=== PATIENT | male | born 1995 | race Two or more races ===

== ENCOUNTER 2024-09-21 14:20 | Inpatient (IN) | payer OTHER, SELFPAY ==
[2024-09-21 14:20] VITALS: BP 140/90; PULSE 147; RESP 28; TEMP 36.8; O2SAT 95
--- NOTE | 2024-09-21 15:16 | EKG_ITS ---
[facility] Test Date: 2024-09-22 Pat Name: STAS CASTLE Department: Room: [facility] Gender: Male Speech Pathologist: KAMINI : 1995 Requested By: Dayne Che Order Number: [id number] Reading MD: Dayne Che Measurements Intervals [place] Rate: 106 P: 72 GA: 122 QRS: 42 QRSD: 69 T: 55 QT: 319 QTc: 425 Interpretive Statements SINUS TACHYCARDIA NONSPECIFIC T-WAVE ABNORMALITY ABNORMAL RHYTHM ECG No previous ECG available for comparison /store/S0/[id number]
--- NOTE | 2024-09-21 15:56 | PC.SS ---
Resident admitted for subacute care on blow by with trach in place and GT for medication and nutrition. Resident is unable to make needs known, his decision maker is his mother Sara. Resident is not conserved or has POA in place. This SSD informed mother Advanced Directive offered in facility, resident is unable to participate in process. Resident is Taoism pentecostalism and will accept spiritual care visits from job trainer. RP denies history of anxiety, depression or any traumas. This SSD will make daily contact with resident and will monitor to ensure resident is adjusting well to new environment.
[2024-09-21 15:59] LABS: Base Excess -2 (-3-3); HCO3 21 mEq/L (20-26); Inspired Oxygen, FIO2 21 %; O2 Saturation 100 % (91-98); PCO2 29 mmHg (32.0-48.0); PO2 123 mmHg (83-108); pH, Arterial 7.47 (7.35-7.45)
[2024-09-21] MEDS: SULFAMETHOXAZOLE/TRIMETHOPRIM 1 EACH TABLET 2 EACH GT ×2 (16:00→21:30)
[2024-09-21 16:12] LABS: Allen Test Not Performed; Puncture Site Right Radial
--- NOTE | 2024-09-21 17:14 | XR_ITS ---
Examination: AP chest single view Technique one AP portable semiupright chest single view Exam date and time: September 21, 2024, 1830 hours INDICATIONS: Status post tracheostomy tube placement FINDINGS: Tracheostomy tube tip 4.8 cm above Maranda Normal heart size No aspiration pneumonia Gastrostomy tube overlies the stomach IMPRESSION: Tracheostomy tube tip 4.8 cm above Maranda
[2024-09-21 18:00] VITALS: BP 135/96; PULSE 130; RESP 26; TEMP 36.4; O2SAT 99
--- NOTE | 2024-09-21 18:15 | PC.NURSE ---
Admitted a 28 y/o male from [facility] via [facility]. Resident awake , non verbal, totally dependent with ADLs. Abdomen soft and non-tender. With condom cath patent and intact, draining via gravity yellow colored urine. Resident with an ordered for Bactrim DS 800mg/160 mg 2 tabs very 8 hours until 09/27/24. Called and clarified order from [facility] and spoke with the discharging nurse and casey saw operator and confirmed to them as per ordered by the discharging MD and to be given until 09/27/24. Called Dr meade covering for Dr Nichols and made him aware and so with the other discharge medicine orders.
[2024-09-21 19:09] LABS: Basophils % (Auto) 0 % (0-2.5); Eosinophils % (Auto) 0 % (0-10); Hemoglobin 9.8 g/dL (13.5-16.0); Immature Granulocytes % (Auto) 0 % (0-0); Immature Granulocytes Auto 0.04 Thou/mm3 (0.00-0.00); Lymphocytes # (Auto) 1.4 Thou/mm3 (1.0-4.8); Lymphocytes % (Auto) 12 % (10-50); Mean Corpuscular HGB Conc 32.7 g/dl (31.0-37.0); Mean Corpuscular Hemoglobin 29.4 pg (25.0-35.0); Mean Corpuscular Volume 90 fL (80-100); Monocytes % (Auto) 8 % (0-12); Neutrophils # (Auto) 9.6 Thou/mm3 (1.8-7.7); Neutrophils % (Auto) 80 % (37-80); Nucleated Red Blood Cell % 0 /100 WBC (0); Platelet Count 407 Thou/mm3 (140-440); RDW Standard Deviation 60.9 fL (35.1-43.9); Red Blood Count 3.33 Miln/mm3 (4.50-5.90); White Blood Count 12.1 Thou/mm3 (3.8-10.6)
[2024-09-21 19:11] LABS: Alanine Aminotransferase 65 U/L (10-49); Albumin, Serum 4.2 gm/dL (3.5-5.0); Albumin/Globulin Ratio 1.2 (1.2-2.2); Alkaline Phosphatase 150 U/L (46-116); Anion Gap 12 (7-16); Aspartate Amino Transferase 57 U/L (0-34); BUN/Creatinine Ratio 19 Ratio (12-20); Bilirubin,Total < 0.2 mg/dL (0.3-1.2); Blood Urea Nitrogen 17 mg/dL (9-23); Carbon Dioxide 21.5 mMol/L (20.0-31.0); Chloride 104 mMol/L (98-107); Creatinine (Component) 0.9 mg/dL (0.6-1.3); Globulin 3.5 gm/dL (2.3-3.5); Glucose 115 mg/dL (74-106); Osmolality,Calculated 276 (275-295); Potassium 4.4 mMol/L (3.4-5.1); Sodium 137 mMol/L (136-145); Total Protein 7.7 gm/dL (5.7-8.2); eGFR > 60 See Note
[2024-09-21 21:30] VITALS: BP 128/88; PULSE 110
[2024-09-21] MEDS: GABAPENTIN 300 MG CAPSULE GT (21:30)
[2024-09-21] MEDS: MAGNESIUM OXIDE 400 MG TABLET GT (21:30)
[2024-09-21] MEDS: QUETIAPINE FUMARATE 50 MG TABLET GT (21:30)
[2024-09-21 22:00] VITALS: BP 128/82; PULSE 118; RESP 22; TEMP 35.9
[2024-09-21 22:05] VITALS: PULSE 102; RESP 20; O2SAT 98
[2024-09-21] MEDS: ASCORBIC ACID 500 MG TABLET GT (22:30)
[2024-09-22] VITALS (9 sets, daily range): BP systolic 101–118; BP diastolic 71–85; PULSE 77–111; RESP 18–26; TEMP 36.1–36.4; O2SAT 95–100
[2024-09-22] MEDS: GABAPENTIN 300 MG CAPSULE GT ×3 (05:14→21:06)
[2024-09-22] MEDS: BACLOFEN 10 MG TABLET 20 MG GT ×2 (05:14→12:39)
[2024-09-22] MEDS: MIDODRINE 10 MG TABLET 15 MG GT ×3 (05:14→21:08)
[2024-09-22] MEDS: PROPRANOLOL 10 MG TABLET GT ×3 (05:15→21:09)
[2024-09-22] MEDS: QUETIAPINE FUMARATE 50 MG TABLET GT ×3 (05:21→21:01)
[2024-09-22] MEDS: SULFAMETHOXAZOLE/TRIMETHOPRIM 1 EACH TABLET 2 EACH GT ×3 (05:22→21:09)
[2024-09-22] MEDS: ASCORBIC ACID 500 MG TABLET GT ×2 (09:02→21:02)
[2024-09-22] MEDS: LACTULOSE 10 GM/15 ML SOLUTION GT (09:03)
[2024-09-22] MEDS: LANSOPRAZOLE 30 MG CAPSULE.DR GT (09:04)
[2024-09-22] MEDS: levETIRAcetam 100 MG/ML SOLUTION 1000 MG GT ×2 (09:05→21:02)
[2024-09-22] MEDS: MULTIVITAMIN W MINERALS 1 EACH TABLET GT (09:06)
[2024-09-22] MEDS: MAGNESIUM OXIDE 400 MG TABLET GT ×2 (09:06→21:05)
[2024-09-22] MEDS: ACETAMINOPHEN 325 MG TABLET 650 MG GT (09:10)
--- NOTE | 2024-09-22 13:19 | ESHP_ITS ---
Documented by User: Dayne Izquierdo MD 09/22/24 13:20 Addendum History & Physical Addendum Date of report being addended: 09/22/24 (h & P., lung clear breath sounds., Dx pneumonia, on blow by. 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 Seizure disorder 4. Chronic anemia 5 Quadriparesis 6. S/P tracheostomy to blow by and a feeding PEG tube 7. Trach site cellulitis and on Bactrim DS 8. Pseudomonas pn on antibiotics with good response Pt's current ongoing treatment in acute care was reviewed and continued in the [facility] Current condition stable
--- NOTE | 2024-09-22 14:55 | PC.NURSE ---
Dr. Izquierdo came and checked the resident, informed him RT suggesting to D/C the Xopenex and just stay with albuterol sulfate, . ok with it, order noted and carried out.
--- NOTE | 2024-09-22 18:45 | PC.NURSE ---
Late entry for 09/21/24. received a call from [employer] the pillowcase cuttermanager terminal for Bactrim DS 2 tablets every 8 hours until 09/27/24 is for the PNA and trach site cellulitis. She added that order for Bactrim was already completed the morning of the discharge but the discharging MD had ordered to continue it until 09/27/24
--- NOTE | 2024-09-22 18:50 | PC.NURSE ---
Called resident's mom this morning and clarified with her and explained the order of the seroquel. As per mom, resident has been on this medicine at the hospital and been admitted in the hospital for 2 months before he got admitted to our unit. She also added that resident tends to restless and can't sleep when he was at the hospital.
--- NOTE | 2024-09-22 19:07 | PC.NURSE ---
Called pharmacy this morning to follow up on the Vimpat , as per pharmacy they are waiting for the doctor to sign the CII form. Mentioned to the pharmacist that MD is not here to sign the consent it it is weekend. Requested for them to call the MD. Pharmacy will send us a 3 days emergency supply and it will be received today. Endorsed to NOC. Resident continue on Bactrim DS for PNA and trach cellulitis, no adverse reaction noted.
[2024-09-22] MEDS: NON-FORMULARY *SEE COMMENTS* 1 EA EA 100 EA GT (21:02)
[2024-09-22] MEDS: ATORVASTATIN 40 MG TABLET GT (21:02)
[2024-09-23] VITALS (10 sets, daily range): BP systolic 106–161; BP diastolic 72–88; PULSE 84–110; RESP 16–22; TEMP 36.2–36.6; O2SAT 95–99
[2024-09-23] MEDS: GABAPENTIN 300 MG CAPSULE GT ×3 (05:30→21:29)
[2024-09-23] MEDS: BACLOFEN 10 MG TABLET 20 MG GT ×4 (05:30→18:00)
[2024-09-23] MEDS: PROPRANOLOL 10 MG TABLET GT ×3 (05:31→21:35)
[2024-09-23] MEDS: SULFAMETHOXAZOLE/TRIMETHOPRIM 1 EACH TABLET 2 EACH GT ×3 (05:31→21:37)
[2024-09-23] MEDS: QUETIAPINE FUMARATE 50 MG TABLET GT ×3 (05:38→21:25)
[2024-09-23] MEDS: ASCORBIC ACID 500 MG TABLET GT ×2 (08:38→21:27)
[2024-09-23] MEDS: LACTULOSE 10 GM/15 ML SOLUTION GT (08:45)
[2024-09-23] MEDS: LANSOPRAZOLE 30 MG CAPSULE.DR GT (08:46)
[2024-09-23] MEDS: levETIRAcetam 100 MG/ML SOLUTION 1000 MG GT ×2 (08:47→21:28)
[2024-09-23] MEDS: MULTIVITAMIN W MINERALS 1 EACH TABLET GT (08:48)
[2024-09-23] MEDS: MAGNESIUM OXIDE 400 MG TABLET GT ×2 (08:48→21:29)
[2024-09-23] MEDS: NON-FORMULARY *SEE COMMENTS* 1 EA EA 100 EA GT ×2 (08:50→21:29)
[2024-09-23] MEDS: ACETAMINOPHEN 325 MG TABLET 650 MG GT (19:58)
[2024-09-23] MEDS: ATORVASTATIN 40 MG TABLET GT (21:27)
[2024-09-24] VITALS (9 sets, daily range): BP systolic 101–137; BP diastolic 62–95; PULSE 75–132; RESP 17–20; TEMP 36.1–37.8; O2SAT 97–99; BMI 14.2
[2024-09-24] MEDS: BACLOFEN 10 MG TABLET 20 MG GT ×4 (00:11→17:15)
[2024-09-24] MEDS: QUETIAPINE FUMARATE 50 MG TABLET GT ×3 (05:28→20:55)
[2024-09-24] MEDS: GABAPENTIN 300 MG CAPSULE GT ×3 (05:30→21:05)
[2024-09-24] MEDS: PROPRANOLOL 10 MG TABLET GT ×3 (05:32→20:55)
[2024-09-24] MEDS: SULFAMETHOXAZOLE/TRIMETHOPRIM 1 EACH TABLET 2 EACH GT ×3 (05:34→21:05)
[2024-09-24] MEDS: ACETAMINOPHEN 325 MG TABLET 650 MG GT (08:30)
[2024-09-24] MEDS: ASCORBIC ACID 500 MG TABLET GT ×2 (09:31→20:55)
[2024-09-24] MEDS: LACTULOSE 10 GM/15 ML SOLUTION GT (09:31)
[2024-09-24] MEDS: LANSOPRAZOLE 30 MG CAPSULE.DR GT (09:31)
[2024-09-24] MEDS: levETIRAcetam 100 MG/ML SOLUTION 1000 MG GT ×2 (09:32→20:55)
[2024-09-24] MEDS: MAGNESIUM OXIDE 400 MG TABLET GT ×2 (09:33→20:55)
[2024-09-24] MEDS: NON-FORMULARY *SEE COMMENTS* 1 EA EA 100 EA GT ×2 (09:33→20:55)
[2024-09-24] MEDS: MULTIVITAMIN W MINERALS 1 EACH TABLET GT (09:33)
--- NOTE | 2024-09-24 19:40 | PD.SAHP ---
Physical exam Physical Exam Vital signs: Temp Pulse Resp BP Pulse Ox O2 Del Method O2 Flow Rate 97.6 F 107 H 20 122/78 99 Blow-by 6 10/03/24 12:00 10/03/24 13:16 10/03/24 12:00 10/03/24 13:16 10/03/24 11:26 10/02/24 17:54 10/03/24 11:26 FiO2 28 10/03/24 11:26 Constitutional Comments: NAD HEENT Exam Comments: NAD. Cannot participate in evaluation Neck Exam Neck: Present supple Chest/Breast/Axilla Exam Comments: NAD Respiratory Exam Respiratory: Present chest non-tender, lungs clear and normal breath sounds Cardiovascular Exam Cardiovascular: Present RRR, S1 and S2 Abdominal Exam Comments: NAD Rectal Exam Comments: deferred Exam Comments: NAD Extremities Exam Comments: Quadriparesis Back/Spine/Pelvis Exam Comments: NAD Neurological Exam Comments: spontaneous eye opening, no response to verbal stimuli; quadriparesis; incontinent of bladder and bowel. Inability to swallow Rehabilitation potential Diagnosis (1) Chronic respiratory failure: Status: Chronic (2) Encephalopathy: Status: Chronic (3) G tube feedings: Status: Chronic (4) Seizures: Status: Chronic (5) Tracheostomy in place: Status: Chronic (6) Chronic disease anemia: Status: Chronic (7) Cocaine-induced vascular disorder: Status: Chronic (8) Quadriparesis: Status: Chronic Assessment & Plan Assessment: Pt in chronic encephalopathy/ cocaine induced cerebral vasculitis with no cognitive abilities and multiple system compromise and a very guarded prognosis for any meaningful recovery to independent living Plan: Current treatment reviewed and continued Prognosis Prognosis: Poor HPI History of Present Illness HPI: Pt is a 29 yrs of age being 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 failure/ Trach/ Peg, non responsive and with Quadriparesis.
[2024-09-24] MEDS: ATORVASTATIN 40 MG TABLET GT (20:55)
[2024-09-25] VITALS (9 sets, daily range): BP systolic 110–163; BP diastolic 73–94; PULSE 79–144; RESP 16–28; TEMP 36.2–36.4; O2SAT 98–99
[2024-09-25] MEDS: BACLOFEN 10 MG TABLET 20 MG GT ×4 (00:10→17:00)
[2024-09-25] MEDS: SULFAMETHOXAZOLE/TRIMETHOPRIM 1 EACH TABLET 2 EACH GT ×3 (05:31→21:22)
[2024-09-25] MEDS: PROPRANOLOL 10 MG TABLET GT ×3 (05:31→21:22)
[2024-09-25] MEDS: ACETAMINOPHEN 325 MG TABLET 650 MG GT (05:31)
[2024-09-25] MEDS: GABAPENTIN 300 MG CAPSULE GT ×3 (05:31→21:21)
[2024-09-25] MEDS: QUETIAPINE FUMARATE 50 MG TABLET GT ×2 (05:31→13:00)
[2024-09-25] MEDS: ASCORBIC ACID 500 MG TABLET GT ×2 (08:02→21:20)
[2024-09-25] MEDS: levETIRAcetam 100 MG/ML SOLUTION 1000 MG GT ×2 (08:03→21:20)
[2024-09-25] MEDS: MULTIVITAMIN W MINERALS 1 EACH TABLET GT (08:03)
[2024-09-25] MEDS: MAGNESIUM OXIDE 400 MG TABLET GT ×2 (08:03→21:21)
[2024-09-25] MEDS: LACTULOSE 10 GM/15 ML SOLUTION GT (08:03)
[2024-09-25] MEDS: LANSOPRAZOLE 30 MG CAPSULE.DR GT (08:03)
[2024-09-25] MEDS: NON-FORMULARY *SEE COMMENTS* 1 EA EA 100 EA GT ×2 (08:07→21:21)
[2024-09-25] MEDS: MIDODRINE 10 MG TABLET 15 MG GT (13:02)
[2024-09-25] MEDS: ATORVASTATIN 40 MG TABLET GT (21:20)
--- NOTE | 2024-09-25 23:38 | PD.SAPROG ---
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 (8) Quadriparesis: Status: Chronic OBJECTIVE Most recent vital signs: Last Vital Signs Temp 97.1 F 09/25/24 17:39 Pulse 108 H 09/25/24 21:22 Resp 16 09/25/24 17:39 BP 134/79 H 09/25/24 21:22 Pulse Ox 98 09/25/24 17:39 O2 Del Method Blow-by 09/25/24 17:39 O2 Flow Rate 6 09/25/24 07:55 FiO2 28 09/25/24 07:55 Speech:: none Answers questions:: no Respiratory:: lungs clear and shallow breathing Cardiovascular: RRR Abdomen: soft Extremities:: deformities (Quadriparesis) Tracheostomy:: to blow by Feeding per:: G tube Complaints:: none ASSESSMENT & PLAN Assessment: Pt in chronic encephalopathy/ cocaine induced cerebral vasculitis with no cognitive abilities and multiple system compromise and a very guarded prognosis for any meaningful recovery to independent living Plan: Current treatment reviewed and continued
[2024-09-26] VITALS (9 sets, daily range): BP systolic 110–129; BP diastolic 69–88; PULSE 60–120; RESP 17–21; TEMP 36.1–36.8; O2SAT 97–98
[2024-09-26] MEDS: GABAPENTIN 300 MG CAPSULE GT ×3 (05:29→21:18)
[2024-09-26] MEDS: BACLOFEN 10 MG TABLET 20 MG GT ×4 (05:29→17:25)
[2024-09-26] MEDS: PROPRANOLOL 10 MG TABLET GT ×3 (05:30→21:18)
[2024-09-26] MEDS: SULFAMETHOXAZOLE/TRIMETHOPRIM 1 EACH TABLET 2 EACH GT ×3 (05:30→21:19)
--- NOTE | 2024-09-26 07:06 | PC.NURSE ---
made aware of sputum cultures results, no new orders at this time.
[2024-09-26] MEDS: ACETAMINOPHEN 325 MG TABLET 650 MG GT (08:30)
[2024-09-26] MEDS: ASCORBIC ACID 500 MG TABLET GT ×2 (08:31→21:17)
[2024-09-26] MEDS: LACTULOSE 10 GM/15 ML SOLUTION GT (08:31)
[2024-09-26] MEDS: LANSOPRAZOLE 30 MG CAPSULE.DR GT (08:31)
[2024-09-26] MEDS: MAGNESIUM OXIDE 400 MG TABLET GT ×2 (08:32→21:18)
[2024-09-26] MEDS: MULTIVITAMIN W MINERALS 1 EACH TABLET GT (08:32)
[2024-09-26] MEDS: NON-FORMULARY *SEE COMMENTS* 1 EA EA 100 EA GT ×2 (08:32→21:18)
[2024-09-26] MEDS: levETIRAcetam 100 MG/ML SOLUTION 1000 MG GT ×2 (08:32→21:17)
[2024-09-26] MEDS: OLANZapine 5 MG TABLET GT (08:35)
--- NOTE | 2024-09-26 16:10 | PC.SS ---
Resident mother, father and sisters in for a visit no questions or concerns at this time. Family informed to bring resident soft clothing, mother is aware no children under the age of 13 in the building until further notice, this SSD agreed to notify family once children are allowed back in.
[2024-09-26] MEDS: ATORVASTATIN 40 MG TABLET GT (21:17)
[2024-09-27] VITALS (9 sets, daily range): BP systolic 110–127; BP diastolic 67–91; PULSE 65–130; RESP 16–22; TEMP 36.1–36.6; O2SAT 96–100
[2024-09-27] MEDS: BACLOFEN 10 MG TABLET 20 MG GT ×4 (00:30→17:30)
[2024-09-27] MEDS: GABAPENTIN 300 MG CAPSULE GT ×3 (05:13→21:05)
[2024-09-27] MEDS: MIDODRINE 10 MG TABLET 15 MG GT ×2 (05:14→21:04)
[2024-09-27] MEDS: PROPRANOLOL 10 MG TABLET GT ×3 (05:15→21:37)
[2024-09-27] MEDS: ACETAMINOPHEN 325 MG TABLET 650 MG GT ×2 (05:16→09:30)
[2024-09-27] MEDS: SULFAMETHOXAZOLE/TRIMETHOPRIM 1 EACH TABLET 2 EACH GT ×2 (05:16→14:15)
--- NOTE | 2024-09-27 05:29 | PC.NURSE ---
Antibiotics ongoing for pneumonia and cellulitis to trach site. No adverse reactions noted. Bilateral lungs with noted rhonchi. Moderate amount of yellow tinged secretions suctioned as needed via trach. SpO2 100% on 6L with 28% FiO2 via blow by. HOB elevated to facilitate O2 exchange. Trach site with no redness or swelling noted with stoma healing well. Fluids tolerated well via g-tube. Medicated x1 with Tylenol as ordered for s/s of pain with facial grimacing, non-verbal but will blink to yes/no questions. Noted to blink when asked if he was in pain. Resident noted with an open area to posterior left knee and small open area to coccyx area, both with noted bony prominences. Charge nurse notified and new order received and carried out.
--- NOTE | 2024-09-27 05:41 | PC.NURSE ---
Resident noted with small, open area to left posterior knee, new treatment ordered, prevention dressing to right posterior knee ordered to prevent skin breakdown, prevention treatment to sacrum and wound consult ordered for the previous orders
[2024-09-27] MEDS: ASCORBIC ACID 500 MG TABLET GT ×2 (08:54→21:05)
[2024-09-27] MEDS: LANSOPRAZOLE 30 MG CAPSULE.DR GT (08:54)
[2024-09-27] MEDS: LACTULOSE 10 GM/15 ML SOLUTION GT (08:54)
[2024-09-27] MEDS: levETIRAcetam 100 MG/ML SOLUTION 1000 MG GT ×2 (08:55→21:05)
[2024-09-27] MEDS: MAGNESIUM OXIDE 400 MG TABLET GT ×2 (08:55→21:05)
[2024-09-27] MEDS: NON-FORMULARY *SEE COMMENTS* 1 EA EA 100 EA GT ×2 (08:56→21:31)
[2024-09-27] MEDS: MULTIVITAMIN W MINERALS 1 EACH TABLET GT (08:56)
[2024-09-27] MEDS: OLANZapine 5 MG TABLET GT (08:58)
[2024-09-27] MEDS: ATORVASTATIN 40 MG TABLET GT (21:05)
--- NOTE | 2024-09-27 21:41 | PC.NURSE ---
PICC line to right, upper arm discontinued per MD order, no bleeding noted, pressure dressing applied, resident tolerated well.
[2024-09-28] VITALS (8 sets, daily range): BP systolic 106–119; BP diastolic 67–83; PULSE 101–114; RESP 17–98; TEMP 36.1–36.3; O2SAT 97–98
[2024-09-28] MEDS: BACLOFEN 10 MG TABLET 20 MG GT ×4 (00:41→17:04)
[2024-09-28] MEDS: GABAPENTIN 300 MG CAPSULE GT ×3 (05:32→21:26)
[2024-09-28] MEDS: MIDODRINE 10 MG TABLET 15 MG GT ×3 (05:32→21:26)
[2024-09-28] MEDS: LACTULOSE 10 GM/15 ML SOLUTION GT (08:32)
[2024-09-28] MEDS: levETIRAcetam 100 MG/ML SOLUTION 1000 MG GT ×2 (08:32→21:25)
[2024-09-28] MEDS: ASCORBIC ACID 500 MG TABLET GT ×2 (08:32→21:25)
[2024-09-28] MEDS: LANSOPRAZOLE 30 MG CAPSULE.DR GT (08:32)
[2024-09-28] MEDS: MAGNESIUM OXIDE 400 MG TABLET GT ×2 (08:33→21:26)
[2024-09-28] MEDS: MULTIVITAMIN W MINERALS 1 EACH TABLET GT (08:33)
[2024-09-28] MEDS: NON-FORMULARY *SEE COMMENTS* 1 EA EA 100 EA GT ×2 (08:34→21:26)
[2024-09-28] MEDS: OLANZapine 5 MG TABLET GT (08:35)
[2024-09-28] MEDS: PROPRANOLOL 10 MG TABLET GT (13:33)
[2024-09-28] MEDS: ATORVASTATIN 40 MG TABLET GT (21:25)
[2024-09-29] VITALS (8 sets, daily range): BP systolic 107–139; BP diastolic 54–96; PULSE 92–132; RESP 17–22; TEMP 36.7–37.5; O2SAT 95–99
[2024-09-29] MEDS: BACLOFEN 10 MG TABLET 20 MG GT ×4 (00:13→17:03)
[2024-09-29] MEDS: ACETAMINOPHEN 325 MG TABLET 650 MG GT (05:38)
[2024-09-29] MEDS: GABAPENTIN 300 MG CAPSULE GT ×3 (05:38→21:10)
[2024-09-29] MEDS: PROPRANOLOL 10 MG TABLET GT ×3 (05:39→21:11)
[2024-09-29] MEDS: ASCORBIC ACID 500 MG TABLET GT ×2 (08:04→20:58)
[2024-09-29] MEDS: LACTULOSE 10 GM/15 ML SOLUTION GT (08:04)
[2024-09-29] MEDS: levETIRAcetam 100 MG/ML SOLUTION 1000 MG GT ×2 (08:05→20:58)
[2024-09-29] MEDS: LANSOPRAZOLE 30 MG CAPSULE.DR GT (08:05)
[2024-09-29] MEDS: MULTIVITAMIN W MINERALS 1 EACH TABLET GT (08:06)
[2024-09-29] MEDS: MAGNESIUM OXIDE 400 MG TABLET GT ×2 (08:06→20:58)
[2024-09-29] MEDS: NON-FORMULARY *SEE COMMENTS* 1 EA EA 100 EA GT ×2 (08:07→20:58)
[2024-09-29] MEDS: OLANZapine 5 MG TABLET GT (08:08)
--- NOTE | 2024-09-29 18:25 | PD.SAPROG ---
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 (8) Quadriparesis: Status: Chronic OBJECTIVE Most recent vital signs: Last Vital Signs Temp 97.8 F 10/03/24 17:27 Pulse 68 10/03/24 17:27 Resp 19 10/03/24 17:27 BP 115/76 10/03/24 17:27 Pulse Ox 100 10/03/24 17:27 O2 Del Method Blow-by 10/03/24 17:27 O2 Flow Rate 6 10/03/24 11:26 FiO2 28 10/03/24 11:26 Speech:: none Answers questions:: no Respiratory:: lungs clear and shallow breathing Cardiovascular: RRR Abdomen: soft Extremities:: deformities (Quadriparesis) Tracheostomy:: to blow by Feeding per:: G tube Complaints:: none ASSESSMENT & PLAN Assessment: Pt in chronic encephalopathy/ cocaine induced cerebral vasculitis with no cognitive abilities and multiple system compromise and a very guarded prognosis for any meaningful recovery to independent living Plan: Current treatment reviewed and continued
--- NOTE | 2024-09-29 19:06 | PC.NURSE ---
At around 16:15 resident noted to have a rectal temp of 100.4, no s/s of respiratory distress note. Cooling measures provided and extra fluids given PGT. Temp was rechecked after an hour noted to be 99.5
[2024-09-29] MEDS: ATORVASTATIN 40 MG TABLET GT (20:58)
[2024-09-30] VITALS (8 sets, daily range): BP systolic 109–127; BP diastolic 74–84; PULSE 61–88; RESP 16–20; TEMP 36–36.1; O2SAT 97–100
[2024-09-30] MEDS: BACLOFEN 10 MG TABLET 20 MG GT ×5 (00:43→23:33)
[2024-09-30] MEDS: PROPRANOLOL 10 MG TABLET GT ×2 (05:31→21:14)
[2024-09-30] MEDS: GABAPENTIN 300 MG CAPSULE GT ×3 (05:31→21:14)
[2024-09-30] MEDS: MIDODRINE 10 MG TABLET 15 MG GT ×2 (05:31→14:08)
[2024-09-30] MEDS: ASCORBIC ACID 500 MG TABLET GT ×2 (09:21→21:13)
[2024-09-30] MEDS: LANSOPRAZOLE 30 MG CAPSULE.DR GT (09:22)
[2024-09-30] MEDS: LACTULOSE 10 GM/15 ML SOLUTION GT (09:22)
[2024-09-30] MEDS: MAGNESIUM OXIDE 400 MG TABLET GT ×2 (09:23→23:33)
[2024-09-30] MEDS: MULTIVITAMIN W MINERALS 1 EACH TABLET GT (09:23)
[2024-09-30] MEDS: levETIRAcetam 100 MG/ML SOLUTION 1000 MG GT ×2 (09:23→21:13)
[2024-09-30] MEDS: NON-FORMULARY *SEE COMMENTS* 1 EA EA 100 EA GT ×2 (09:24→21:13)
[2024-09-30] MEDS: OLANZapine 5 MG TABLET GT (09:25)
[2024-09-30] MEDS: ATORVASTATIN 40 MG TABLET GT (21:13)
[2024-10-01] VITALS (9 sets, daily range): BP systolic 114–145; BP diastolic 74–89; PULSE 55–108; RESP 17–22; TEMP 36.2–36.4; O2SAT 96–100
[2024-10-01] MEDS: BACLOFEN 10 MG TABLET 20 MG GT ×3 (05:35→18:00)
[2024-10-01] MEDS: GABAPENTIN 300 MG CAPSULE GT ×3 (05:36→21:44)
[2024-10-01] MEDS: MIDODRINE 10 MG TABLET 15 MG GT ×2 (05:36→21:43)
[2024-10-01] MEDS: ASCORBIC ACID 500 MG TABLET GT ×2 (09:18→21:44)
[2024-10-01] MEDS: LANSOPRAZOLE 30 MG CAPSULE.DR GT (09:19)
[2024-10-01] MEDS: levETIRAcetam 100 MG/ML SOLUTION 1000 MG GT ×2 (09:19→21:44)
[2024-10-01] MEDS: LACTULOSE 10 GM/15 ML SOLUTION GT (09:19)
[2024-10-01] MEDS: OLANZapine 5 MG TABLET GT (09:20)
[2024-10-01] MEDS: NON-FORMULARY *SEE COMMENTS* 1 EA EA 100 EA GT ×2 (09:20→21:44)
[2024-10-01] MEDS: MULTIVITAMIN W MINERALS 1 EACH TABLET GT (09:20)
[2024-10-01] MEDS: MAGNESIUM OXIDE 400 MG TABLET GT ×2 (11:00→23:47)
[2024-10-01] MEDS: PROPRANOLOL 10 MG TABLET GT ×2 (14:36→21:43)
[2024-10-01] MEDS: ATORVASTATIN 40 MG TABLET GT (21:44)
[2024-10-02] VITALS (10 sets, daily range): BP systolic 106–149; BP diastolic 75–98; PULSE 55–107; RESP 16–21; TEMP 36.4–37; O2SAT 97–100
[2024-10-02] MEDS: BACLOFEN 10 MG TABLET 20 MG GT ×5 (00:47→23:57)
[2024-10-02] MEDS: PROPRANOLOL 10 MG TABLET GT ×2 (05:29→14:41)
[2024-10-02] MEDS: GABAPENTIN 300 MG CAPSULE GT ×3 (05:29→21:14)
[2024-10-02] MEDS: ACETAMINOPHEN 325 MG TABLET 650 MG GT (07:48)
[2024-10-02] MEDS: LACTULOSE 10 GM/15 ML SOLUTION GT (09:15)
[2024-10-02] MEDS: ASCORBIC ACID 500 MG TABLET GT ×2 (09:15→21:06)
[2024-10-02] MEDS: levETIRAcetam 100 MG/ML SOLUTION 1000 MG GT ×2 (09:16→21:13)
[2024-10-02] MEDS: LANSOPRAZOLE 30 MG CAPSULE.DR GT (09:16)
[2024-10-02] MEDS: MULTIVITAMIN W MINERALS 1 EACH TABLET GT (09:16)
[2024-10-02] MEDS: NON-FORMULARY *SEE COMMENTS* 1 EA EA 100 EA GT ×2 (09:17→21:13)
[2024-10-02] MEDS: OLANZapine 5 MG TABLET GT (09:19)
[2024-10-02] MEDS: MAGNESIUM OXIDE 400 MG TABLET GT ×2 (11:29→23:57)
--- NOTE | 2024-10-02 13:32 | PC.SS ---
Resident was seen by centrifugal spinner for initial consultation. No changes resident to continue current care.
--- NOTE | 2024-10-02 15:35 | PC.NURSE ---
Resident on blood sugar check every 6 hours, no insulin coverage given since admission. Updated Dr mendoza about resident's blood sugar results, with order received to decrease it to twice a day and re-eval with MD in 7 days
[2024-10-02] MEDS: ATORVASTATIN 40 MG TABLET GT (21:09)
[2024-10-02] MEDS: MIDODRINE 10 MG TABLET 15 MG GT (21:14)
[2024-10-03] VITALS (9 sets, daily range): BP systolic 114–151; BP diastolic 76–89; PULSE 68–107; RESP 17–20; TEMP 36.1–36.6; O2SAT 97–100
[2024-10-03] MEDS: GABAPENTIN 300 MG CAPSULE GT ×3 (05:07→22:00)
[2024-10-03] MEDS: MIDODRINE 10 MG TABLET 15 MG GT ×2 (05:07→13:15)
[2024-10-03] MEDS: PROPRANOLOL 10 MG TABLET GT ×3 (05:08→21:00)
[2024-10-03] MEDS: BACLOFEN 10 MG TABLET 20 MG GT ×3 (05:08→17:18)
[2024-10-03] MEDS: ASCORBIC ACID 500 MG TABLET GT ×2 (08:04→20:40)
[2024-10-03] MEDS: LACTULOSE 10 GM/15 ML SOLUTION GT (08:05)
[2024-10-03] MEDS: LANSOPRAZOLE 30 MG CAPSULE.DR GT (08:05)
[2024-10-03] MEDS: levETIRAcetam 100 MG/ML SOLUTION 1000 MG GT ×2 (08:06→20:40)
[2024-10-03] MEDS: MULTIVITAMIN W MINERALS 1 EACH TABLET GT (08:07)
[2024-10-03] MEDS: OLANZapine 5 MG TABLET GT (08:17)
[2024-10-03] MEDS: NON-FORMULARY *SEE COMMENTS* 1 EA EA 100 EA GT ×2 (08:18→20:40)
[2024-10-03] MEDS: MAGNESIUM OXIDE 400 MG TABLET GT ×2 (10:59→23:00)
--- NOTE | 2024-10-03 14:42 | PC.SS ---
This SSD spoke with resident mother Sara, she stated she would like resident hair to be kept short as it currently is. She has asked resident facial hair to be kept short and clean. She has asked his mustache and goat to be kept but shave sides of face. This SSD informed FARM OWNER OPERATOR's caring for resident.
[2024-10-03] MEDS: ATORVASTATIN 40 MG TABLET GT (20:40)
--- NOTE | 2024-10-03 20:40 | PD.SAPROG ---
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 (8) Quadriparesis: Status: Chronic OBJECTIVE Most recent vital signs: Last Vital Signs Temp 97.4 F 10/07/24 11:40 Pulse 66 10/07/24 11:40 Resp 19 10/07/24 11:40 BP 125/89 H 10/07/24 11:40 Pulse Ox 95 10/07/24 06:14 O2 Del Method Blow-by 10/07/24 06:00 O2 Flow Rate 6 10/07/24 06:14 FiO2 28 10/07/24 06:14 Speech:: none Answers questions:: no Respiratory:: lungs clear and shallow breathing Cardiovascular: RRR Abdomen: soft Extremities:: deformities (Quadriparesis) Tracheostomy:: to blow by Feeding per:: G tube Complaints:: none ASSESSMENT & PLAN Assessment: Pt in chronic encephalopathy/ cocaine induced cerebral vasculitis with no cognitive abilities and multiple system compromise and a very guarded prognosis for any meaningful recovery to independent living Plan: Current treatment reviewed and continued
[2024-10-04] VITALS (9 sets, daily range): BP systolic 104–142; BP diastolic 70–97; PULSE 84–117; RESP 18–26; TEMP 36.2–36.5; O2SAT 95–100
[2024-10-04] MEDS: BACLOFEN 10 MG TABLET 20 MG GT ×5 (00:04→23:23)
[2024-10-04] MEDS: ACETAMINOPHEN 325 MG TABLET 650 MG GT (00:15)
[2024-10-04] MEDS: PROPRANOLOL 10 MG TABLET GT ×2 (05:24→13:21)
[2024-10-04] MEDS: GABAPENTIN 300 MG CAPSULE GT ×3 (05:24→21:17)
[2024-10-04] MEDS: ASCORBIC ACID 500 MG TABLET GT ×2 (08:06→20:40)
[2024-10-04] MEDS: LACTULOSE 10 GM/15 ML SOLUTION GT (08:07)
[2024-10-04] MEDS: MULTIVITAMIN W MINERALS 1 EACH TABLET GT (08:08)
[2024-10-04] MEDS: levETIRAcetam 100 MG/ML SOLUTION 1000 MG GT ×2 (08:08→20:40)
[2024-10-04] MEDS: LANSOPRAZOLE 30 MG CAPSULE.DR GT (08:08)
[2024-10-04] MEDS: NON-FORMULARY *SEE COMMENTS* 1 EA EA 100 EA GT ×2 (08:09→20:39)
[2024-10-04] MEDS: OLANZapine 5 MG TABLET GT (08:09)
[2024-10-04] MEDS: MAGNESIUM OXIDE 400 MG TABLET GT ×2 (10:18→23:23)
[2024-10-04] MEDS: MIDODRINE 10 MG TABLET 15 MG GT ×2 (13:21→21:18)
[2024-10-04] MEDS: ATORVASTATIN 40 MG TABLET GT (20:40)
[2024-10-05] VITALS (9 sets, daily range): BP systolic 99–139; BP diastolic 60–84; PULSE 76–109; RESP 18–23; TEMP 36.1–36.5; O2SAT 96–98
[2024-10-05] MEDS: BACLOFEN 10 MG TABLET 20 MG GT ×3 (05:22→17:44)
[2024-10-05] MEDS: MIDODRINE 10 MG TABLET 15 MG GT ×2 (05:22→14:11)
[2024-10-05] MEDS: GABAPENTIN 300 MG CAPSULE GT ×3 (05:22→21:23)
[2024-10-05] MEDS: ASCORBIC ACID 500 MG TABLET GT ×2 (08:36→21:22)
[2024-10-05] MEDS: LACTULOSE 10 GM/15 ML SOLUTION GT (08:37)
[2024-10-05] MEDS: LANSOPRAZOLE 30 MG CAPSULE.DR GT (08:37)
[2024-10-05] MEDS: MULTIVITAMIN W MINERALS 1 EACH TABLET GT (08:37)
[2024-10-05] MEDS: levETIRAcetam 100 MG/ML SOLUTION 1000 MG GT ×2 (08:37→21:23)
[2024-10-05] MEDS: OLANZapine 5 MG TABLET GT (08:38)
[2024-10-05] MEDS: NON-FORMULARY *SEE COMMENTS* 1 EA EA 100 EA GT ×2 (08:38→21:23)
[2024-10-05] MEDS: MAGNESIUM OXIDE 400 MG TABLET GT ×2 (11:10→22:55)
--- NOTE | 2024-10-05 15:09 | PC.SS ---
Resident is laying in bed with head of the bed elevated with call light properly placed with no signs of distress. Resident has trach in place and GT for medication and nutrition. Resident is non verbal unable to make decisions for self. Resident will remain in current care and will continue to have all subacute care needs met by staff. This SSD will make daily contact with resident and will monitor for changes in mood and behavior.
[2024-10-05] MEDS: ATORVASTATIN 40 MG TABLET GT (21:22)
[2024-10-05] MEDS: PROPRANOLOL 10 MG TABLET GT (21:24)
[2024-10-06] VITALS (9 sets, daily range): BP systolic 100–155; BP diastolic 71–99; PULSE 65–123; RESP 20–25; TEMP 36.1–36.6; O2SAT 97–100
[2024-10-06] MEDS: GABAPENTIN 300 MG CAPSULE GT ×3 (05:37→21:55)
[2024-10-06] MEDS: BACLOFEN 10 MG TABLET 20 MG GT ×4 (05:37→17:13)
[2024-10-06] MEDS: PROPRANOLOL 10 MG TABLET GT ×3 (05:39→21:11)
[2024-10-06] MEDS: ASCORBIC ACID 500 MG TABLET GT ×2 (08:03→21:09)
[2024-10-06] MEDS: LACTULOSE 10 GM/15 ML SOLUTION GT (08:04)
[2024-10-06] MEDS: levETIRAcetam 100 MG/ML SOLUTION 1000 MG GT ×2 (08:05→21:10)
[2024-10-06] MEDS: LANSOPRAZOLE 30 MG CAPSULE.DR GT (08:05)
[2024-10-06] MEDS: NON-FORMULARY *SEE COMMENTS* 1 EA EA 100 EA GT ×2 (08:06→21:10)
[2024-10-06] MEDS: MULTIVITAMIN W MINERALS 1 EACH TABLET GT (08:06)
[2024-10-06] MEDS: OLANZapine 5 MG TABLET GT (08:06)
[2024-10-06] MEDS: MAGNESIUM OXIDE 400 MG TABLET GT ×2 (11:06→22:50)
[2024-10-06] MEDS: MIDODRINE 10 MG TABLET 15 MG GT (13:07)
[2024-10-06] MEDS: ACETAMINOPHEN 325 MG TABLET 650 MG GT (13:08)
[2024-10-06] MEDS: ATORVASTATIN 40 MG TABLET GT (21:10)
[2024-10-07] VITALS (9 sets, daily range): BP systolic 113–136; BP diastolic 69–89; PULSE 66–99; RESP 19–20; TEMP 35.9–36.3; O2SAT 95–100
[2024-10-07] MEDS: BACLOFEN 10 MG TABLET 20 MG GT ×4 (00:05→17:05)
[2024-10-07] MEDS: GABAPENTIN 300 MG CAPSULE GT ×3 (05:34→21:14)
[2024-10-07] MEDS: MIDODRINE 10 MG TABLET 15 MG GT ×2 (05:36→21:14)
[2024-10-07] MEDS: PROPRANOLOL 10 MG TABLET GT ×3 (05:37→21:13)
[2024-10-07] MEDS: ASCORBIC ACID 500 MG TABLET GT ×2 (08:52→21:01)
[2024-10-07] MEDS: MULTIVITAMIN W MINERALS 1 EACH TABLET GT (08:53)
[2024-10-07] MEDS: levETIRAcetam 100 MG/ML SOLUTION 1000 MG GT ×2 (08:53→21:02)
[2024-10-07] MEDS: OLANZapine 5 MG TABLET GT (08:53)
[2024-10-07] MEDS: LACTULOSE 10 GM/15 ML SOLUTION GT (08:53)
[2024-10-07] MEDS: NON-FORMULARY *SEE COMMENTS* 1 EA EA 100 EA GT ×2 (08:53→21:08)
[2024-10-07] MEDS: LANSOPRAZOLE 30 MG CAPSULE.DR GT (08:53)
[2024-10-07] MEDS: ACETAMINOPHEN 325 MG TABLET 650 MG GT (09:03)
[2024-10-07] MEDS: MAGNESIUM OXIDE 400 MG TABLET GT ×2 (11:48→23:05)
[2024-10-07] MEDS: ATORVASTATIN 40 MG TABLET GT (21:01)
[2024-10-08] VITALS (8 sets, daily range): BP systolic 106–144; BP diastolic 72–91; PULSE 81–108; RESP 17–22; TEMP 36.1–36.5; O2SAT 97–99; BMI 148311.4
[2024-10-08] MEDS: BACLOFEN 10 MG TABLET 20 MG GT ×4 (00:25→18:00)
[2024-10-08] MEDS: GABAPENTIN 300 MG CAPSULE GT ×3 (05:30→22:08)
[2024-10-08] MEDS: NON-FORMULARY *SEE COMMENTS* 1 EA EA 100 EA GT ×2 (09:40→20:27)
[2024-10-08] MEDS: levETIRAcetam 100 MG/ML SOLUTION 1000 MG GT ×2 (09:45→20:27)
[2024-10-08] MEDS: MULTIVITAMIN W MINERALS 1 EACH TABLET GT (09:45)
[2024-10-08] MEDS: LACTULOSE 10 GM/15 ML SOLUTION GT (09:46)
[2024-10-08] MEDS: LANSOPRAZOLE 30 MG CAPSULE.DR GT (09:46)
[2024-10-08] MEDS: ASCORBIC ACID 500 MG TABLET GT ×2 (09:47→20:26)
[2024-10-08] MEDS: OLANZapine 5 MG TABLET GT (09:47)
[2024-10-08] MEDS: MAGNESIUM OXIDE 400 MG TABLET GT (11:00)
--- NOTE | 2024-10-08 12:33 | PC.SS ---
Resident was seen by robotic machine tender production with no new orders or recommendations, resident to continue current care.
[2024-10-08] MEDS: MIDODRINE 10 MG TABLET 15 MG GT (14:17)
[2024-10-08] MEDS: ACETAMINOPHEN 325 MG TABLET 650 MG GT (14:20)
--- NOTE | 2024-10-08 14:59 | PC.SS ---
Resident mother and sister are at bedside, family brought in clothing and said mom will be doing laundry for resident weekly. Family made aware currently there are no laundry services in unit, family understands and have agreed to launder clothing. Clothing labeled, added to inventory and put in place for use.
[2024-10-08] MEDS: ATORVASTATIN 40 MG TABLET GT (20:26)
[2024-10-08] MEDS: PROPRANOLOL 10 MG TABLET GT (22:08)
[2024-10-09] VITALS (9 sets, daily range): BP systolic 116–151; BP diastolic 81–95; PULSE 60–119; RESP 18–28; TEMP 36.3–36.8; O2SAT 96–99; BMI 14.8
[2024-10-09] MEDS: MAGNESIUM OXIDE 400 MG TABLET GT ×3 (00:18→23:09)
[2024-10-09] MEDS: BACLOFEN 10 MG TABLET 20 MG GT ×5 (00:19→23:09)
[2024-10-09] MEDS: PROPRANOLOL 10 MG TABLET GT ×3 (05:08→21:22)
[2024-10-09] MEDS: ACETAMINOPHEN 325 MG TABLET 650 MG GT ×2 (05:09→14:59)
[2024-10-09] MEDS: GABAPENTIN 300 MG CAPSULE GT ×3 (05:09→21:28)
[2024-10-09] MEDS: OLANZapine 5 MG TABLET GT (09:56)
[2024-10-09] MEDS: ASCORBIC ACID 500 MG TABLET GT ×2 (09:56→21:25)
[2024-10-09] MEDS: levETIRAcetam 100 MG/ML SOLUTION 1000 MG GT ×2 (09:57→21:28)
[2024-10-09] MEDS: LANSOPRAZOLE 30 MG CAPSULE.DR GT (09:57)
[2024-10-09] MEDS: LACTULOSE 10 GM/15 ML SOLUTION GT (09:57)
[2024-10-09] MEDS: NON-FORMULARY *SEE COMMENTS* 1 EA EA 100 EA GT ×2 (09:58→21:28)
[2024-10-09] MEDS: MULTIVITAMIN W MINERALS 1 EACH TABLET GT (09:58)
[2024-10-09] MEDS: ATORVASTATIN 40 MG TABLET GT (21:25)
[2024-10-10] VITALS (9 sets, daily range): BP systolic 110–126; BP diastolic 71–92; PULSE 62–103; RESP 19–22; TEMP 36–36.2; O2SAT 93–100
[2024-10-10] MEDS: PROPRANOLOL 10 MG TABLET GT ×3 (05:29→21:31)
[2024-10-10] MEDS: GABAPENTIN 300 MG CAPSULE GT ×3 (05:29→21:32)
[2024-10-10] MEDS: MIDODRINE 10 MG TABLET 15 MG GT ×3 (05:29→21:32)
[2024-10-10] MEDS: BACLOFEN 10 MG TABLET 20 MG GT ×3 (05:29→17:14)
[2024-10-10] MEDS: OLANZapine 5 MG TABLET GT (08:43)
[2024-10-10] MEDS: ASCORBIC ACID 500 MG TABLET GT ×2 (08:43→20:35)
[2024-10-10] MEDS: LANSOPRAZOLE 30 MG CAPSULE.DR GT (08:44)
[2024-10-10] MEDS: LACTULOSE 10 GM/15 ML SOLUTION GT (08:44)
[2024-10-10] MEDS: levETIRAcetam 100 MG/ML SOLUTION 1000 MG GT ×2 (08:45→20:36)
[2024-10-10] MEDS: MULTIVITAMIN W MINERALS 1 EACH TABLET GT (08:45)
[2024-10-10] MEDS: NON-FORMULARY *SEE COMMENTS* 1 EA EA 100 EA GT ×2 (08:46→20:39)
[2024-10-10] MEDS: MAGNESIUM OXIDE 400 MG TABLET GT (11:00)
--- NOTE | 2024-10-10 13:35 | PC.SS ---
This SSD provided VIVIANE Qureshi with update regarding initial optometry consultation. VIVIANE was concerned if resident could see, this SSD informed Sara optometry note did not confirm nor deny blindness. Sara was pleased resident was seen by visiting nurse and had no further questions.
[2024-10-10] MEDS: ATORVASTATIN 40 MG TABLET GT (20:36)
[2024-10-11] VITALS (9 sets, daily range): BP systolic 107–131; BP diastolic 71–87; PULSE 61–80; RESP 17–20; TEMP 36.1–36.2; O2SAT 95–97
[2024-10-11] MEDS: BACLOFEN 10 MG TABLET 20 MG GT ×4 (00:37→17:29)
[2024-10-11] MEDS: GABAPENTIN 300 MG CAPSULE GT ×3 (05:22→21:28)
[2024-10-11] MEDS: MIDODRINE 10 MG TABLET 15 MG GT ×2 (05:24→13:51)
[2024-10-11] MEDS: MULTIVITAMIN W MINERALS 1 EACH TABLET GT (09:12)
[2024-10-11] MEDS: LANSOPRAZOLE 30 MG CAPSULE.DR GT (09:12)
[2024-10-11] MEDS: LACTULOSE 10 GM/15 ML SOLUTION GT (09:12)
[2024-10-11] MEDS: levETIRAcetam 100 MG/ML SOLUTION 1000 MG GT ×2 (09:12→20:29)
[2024-10-11] MEDS: NON-FORMULARY *SEE COMMENTS* 1 EA EA 100 EA GT ×2 (09:12→20:44)
[2024-10-11] MEDS: ASCORBIC ACID 500 MG TABLET GT ×2 (09:12→20:28)
[2024-10-11] MEDS: OLANZapine 5 MG TABLET GT (09:12)
[2024-10-11] MEDS: MAGNESIUM OXIDE 400 MG TABLET GT ×3 (11:51→23:18)
[2024-10-11] MEDS: PROPRANOLOL 10 MG TABLET GT ×2 (13:49→21:27)
[2024-10-11] MEDS: ATORVASTATIN 40 MG TABLET GT (20:29)
--- NOTE | 2024-10-11 23:32 | PD.SAPROG ---
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 (8) Quadriparesis: Status: Chronic OBJECTIVE Most recent vital signs: Last Vital Signs Temp 96.9 F 10/11/24 17:36 Pulse 80 10/11/24 21:27 Resp 20 10/11/24 19:25 BP 131/82 H 10/11/24 21:27 Pulse Ox 97 10/11/24 19:25 O2 Del Method Blow-by 10/11/24 05:32 O2 Flow Rate 6 10/11/24 19:25 FiO2 28 10/11/24 19:25 Speech:: none Answers questions:: no Respiratory:: lungs clear and shallow breathing Cardiovascular: RRR Abdomen: soft Extremities:: deformities (Quadriparesis) Tracheostomy:: to blow by Feeding per:: G tube Complaints:: none ASSESSMENT & PLAN Assessment: 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 Tolerating G tube feeding Plan: Current treatment reviewed and continued
[2024-10-11] MEDS: ACETAMINOPHEN 325 MG TABLET 650 MG GT (23:33)
[2024-10-12] VITALS (10 sets, daily range): BP systolic 114–145; BP diastolic 75–101; PULSE 66–124; RESP 16–20; TEMP 36.1–36.8; O2SAT 97–100
[2024-10-12] MEDS: BACLOFEN 10 MG TABLET 20 MG GT ×4 (00:15→17:49)
[2024-10-12] MEDS: PROPRANOLOL 10 MG TABLET GT ×3 (05:22→22:05)
[2024-10-12] MEDS: GABAPENTIN 300 MG CAPSULE GT ×3 (05:24→22:06)
[2024-10-12] MEDS: MIDODRINE 10 MG TABLET 15 MG GT ×2 (05:24→13:41)
[2024-10-12] MEDS: LACTULOSE 10 GM/15 ML SOLUTION GT (08:49)
[2024-10-12] MEDS: LANSOPRAZOLE 30 MG CAPSULE.DR GT (08:49)
[2024-10-12] MEDS: NON-FORMULARY *SEE COMMENTS* 1 EA EA 100 EA GT ×2 (08:49→20:53)
[2024-10-12] MEDS: OLANZapine 5 MG TABLET GT (08:49)
[2024-10-12] MEDS: levETIRAcetam 100 MG/ML SOLUTION 1000 MG GT ×2 (08:49→20:42)
[2024-10-12] MEDS: MULTIVITAMIN W MINERALS 1 EACH TABLET GT (08:49)
[2024-10-12] MEDS: ASCORBIC ACID 500 MG TABLET GT ×2 (08:49→20:41)
[2024-10-12] MEDS: MAGNESIUM OXIDE 400 MG TABLET GT (11:41)
[2024-10-12] MEDS: ATORVASTATIN 40 MG TABLET GT (20:42)
[2024-10-13] VITALS (9 sets, daily range): BP systolic 107–147; BP diastolic 76–96; PULSE 78–144; RESP 18–28; TEMP 36–36.4; O2SAT 97–100
[2024-10-13] MEDS: BACLOFEN 10 MG TABLET 20 MG GT ×4 (05:34→17:27)
[2024-10-13] MEDS: GABAPENTIN 300 MG CAPSULE GT ×3 (05:34→20:59)
[2024-10-13] MEDS: PROPRANOLOL 10 MG TABLET GT ×3 (05:36→20:59)
[2024-10-13] MEDS: NON-FORMULARY *SEE COMMENTS* 1 EA EA 100 EA GT ×2 (08:10→20:56)
[2024-10-13] MEDS: OLANZapine 5 MG TABLET GT (08:11)
[2024-10-13] MEDS: MULTIVITAMIN W MINERALS 1 EACH TABLET GT (08:13)
[2024-10-13] MEDS: ASCORBIC ACID 500 MG TABLET GT ×2 (08:13→20:49)
[2024-10-13] MEDS: LANSOPRAZOLE 30 MG CAPSULE.DR GT (08:13)
[2024-10-13] MEDS: LACTULOSE 10 GM/15 ML SOLUTION GT (08:13)
[2024-10-13] MEDS: levETIRAcetam 100 MG/ML SOLUTION 1000 MG GT ×2 (08:13→20:50)
[2024-10-13] MEDS: MAGNESIUM OXIDE 400 MG TABLET GT ×3 (11:19→23:45)
[2024-10-13] MEDS: ACETAMINOPHEN 325 MG TABLET 650 MG GT ×2 (14:00→20:48)
[2024-10-13] MEDS: MIDODRINE 10 MG TABLET 15 MG GT (14:02)
[2024-10-13] MEDS: ATORVASTATIN 40 MG TABLET GT (20:49)
[2024-10-14] VITALS (9 sets, daily range): BP systolic 104–135; BP diastolic 71–91; PULSE 80–110; RESP 18–20; TEMP 36.1–36.5; O2SAT 98–100
[2024-10-14] MEDS: MAGNESIUM OXIDE 400 MG TABLET GT ×2 (00:05→11:32)
[2024-10-14] MEDS: BACLOFEN 10 MG TABLET 20 MG GT ×4 (00:28→17:03)
[2024-10-14] MEDS: PROPRANOLOL 10 MG TABLET GT ×3 (05:22→21:23)
[2024-10-14] MEDS: GABAPENTIN 300 MG CAPSULE GT ×3 (05:23→21:24)
[2024-10-14] MEDS: LACTULOSE 10 GM/15 ML SOLUTION GT (08:39)
[2024-10-14] MEDS: LANSOPRAZOLE 30 MG CAPSULE.DR GT (08:39)
[2024-10-14] MEDS: ASCORBIC ACID 500 MG TABLET GT ×2 (08:39→20:55)
[2024-10-14] MEDS: levETIRAcetam 100 MG/ML SOLUTION 1000 MG GT ×2 (08:40→20:56)
[2024-10-14] MEDS: MULTIVITAMIN W MINERALS 1 EACH TABLET GT (08:40)
[2024-10-14] MEDS: NON-FORMULARY *SEE COMMENTS* 1 EA EA 100 EA GT ×2 (08:40→20:56)
[2024-10-14] MEDS: OLANZapine 5 MG TABLET GT (09:32)
[2024-10-14] MEDS: MIDODRINE 10 MG TABLET 15 MG GT (14:03)
[2024-10-14] MEDS: ATORVASTATIN 40 MG TABLET GT (20:56)
[2024-10-15] VITALS (7 sets, daily range): BP systolic 100–131; BP diastolic 68–83; PULSE 76–111; RESP 18–20; TEMP 36.1–36.4; O2SAT 98–100; BMI 14.7
[2024-10-15] MEDS: BACLOFEN 10 MG TABLET 20 MG GT ×4 (00:08→17:41)
[2024-10-15] MEDS: PROPRANOLOL 10 MG TABLET GT ×3 (05:36→21:12)
[2024-10-15] MEDS: MIDODRINE 10 MG TABLET 15 MG GT ×2 (05:37→13:54)
[2024-10-15] MEDS: GABAPENTIN 300 MG CAPSULE GT ×3 (05:40→21:13)
[2024-10-15] MEDS: LACTULOSE 10 GM/15 ML SOLUTION GT (08:35)
[2024-10-15] MEDS: LANSOPRAZOLE 30 MG CAPSULE.DR GT (08:35)
[2024-10-15] MEDS: ASCORBIC ACID 500 MG TABLET GT ×2 (08:35→20:57)
[2024-10-15] MEDS: levETIRAcetam 100 MG/ML SOLUTION 1000 MG GT ×2 (08:35→20:58)
[2024-10-15] MEDS: MULTIVITAMIN W MINERALS 1 EACH TABLET GT (08:36)
[2024-10-15] MEDS: OLANZapine 5 MG TABLET GT (08:37)
[2024-10-15] MEDS: NON-FORMULARY *SEE COMMENTS* 1 EA EA 100 EA GT ×2 (08:37→21:01)
[2024-10-15] MEDS: MAGNESIUM OXIDE 400 MG TABLET GT ×2 (11:28→22:41)
[2024-10-15] MEDS: ACETAMINOPHEN 325 MG TABLET 650 MG GT ×2 (13:54→23:45)
[2024-10-15] MEDS: ATORVASTATIN 40 MG TABLET GT (20:58)
--- NOTE | 2024-10-15 22:19 | PD.SAPROG ---
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 (8) Quadriparesis: Status: Chronic OBJECTIVE Most recent vital signs: Last Vital Signs Temp 97.4 F 10/15/24 17:57 Pulse 110 H 10/15/24 21:12 Resp 18 10/15/24 17:57 BP 131/81 H 10/15/24 21:12 Pulse Ox 100 10/15/24 17:57 O2 Del Method Blow-by 10/15/24 17:57 O2 Flow Rate 6 10/15/24 08:20 FiO2 10/15/24 08:20 Speech:: none Answers questions:: no Respiratory:: lungs clear and shallow breathing Cardiovascular: RRR Abdomen: soft Extremities:: deformities (Quadriparesis) Tracheostomy:: to blow by Feeding per:: G tube Complaints:: none ASSESSMENT & PLAN Assessment: 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 Tolerating G tube feeding. No pain issues. Plan: Current treatment reviewed and continued
[2024-10-16] VITALS: BP 129/97; PULSE 130; RESP 24; TEMP 37.1
[2024-10-16] MEDS: BACLOFEN 10 MG TABLET 20 MG GT ×4 (00:30→17:03)
[2024-10-16 01:20] VITALS: PULSE 82; RESP 18; O2SAT 98
[2024-10-16 05:21] VITALS: BP 144/88; PULSE 116
[2024-10-16] MEDS: PROPRANOLOL 10 MG TABLET GT (05:21)
[2024-10-16] MEDS: MIDODRINE 10 MG TABLET 15 MG GT ×2 (05:22→13:22)
[2024-10-16] MEDS: GABAPENTIN 300 MG CAPSULE GT ×2 (05:24→13:26)
[2024-10-16 06:00] VITALS: BP 144/88; PULSE 116; RESP 20; TEMP 36.5; O2SAT 98
[2024-10-16 07:38] VITALS: PULSE 79; RESP 18; O2SAT 98
[2024-10-16] MEDS: NON-FORMULARY *SEE COMMENTS* 1 EA EA 100 EA GT (08:05)
[2024-10-16] MEDS: ASCORBIC ACID 500 MG TABLET GT (08:08)
[2024-10-16] MEDS: LACTULOSE 10 GM/15 ML SOLUTION GT (08:08)
[2024-10-16] MEDS: LANSOPRAZOLE 30 MG CAPSULE.DR GT (08:08)
[2024-10-16] MEDS: levETIRAcetam 100 MG/ML SOLUTION 1000 MG GT (08:09)
[2024-10-16] MEDS: OLANZapine 5 MG TABLET GT (08:09)
[2024-10-16] MEDS: MULTIVITAMIN W MINERALS 1 EACH TABLET GT (08:09)
[2024-10-16] MEDS: MAGNESIUM OXIDE 400 MG TABLET GT (11:28)
[2024-10-16 13:22] VITALS: BP 108/72; PULSE 80
--- NOTE | 2024-10-16 21:44 | PC.NURSE ---
Resident HR noted to be at 160, resident was not to the touch, VS:136/78,101.5F,160,28, o2sat 99%, made aware of resident vitals, new order to send resident out to ER for evaluation and treatment if indicated for elevated HR and temp. (possible sepsis), RP made aware of resident send out, this nurse called ER at 2021 and no bed was available, resident was send via bed at 2052 with nurse and RT.
[2024-10-17 14:00] VITALS: BP 112/79; PULSE 88
[2024-10-17] MEDS: MIDODRINE 10 MG TABLET 15 MG GT (14:00)
[2024-10-17] MEDS: PROPRANOLOL 10 MG TABLET GT ×2 (14:00→21:01)
--- NOTE | 2024-10-17 16:01 | ESDS_ITS ---
<Statement entered by Carisa Lemus MD - 10/19/24 08:19> I reviewed above note and agree with findings and plans. I have also personally examined the patient with medicine team and went over assessment and plan with medical team including international representative and resident physician. Planned Discharge Date 10/17/24 DS: Providers Provider Date of admission: 09/21/24 14:20 Primary care physician: Physician No Primary/Family Admitting Provider: Dayne Izquierdo MD Attending Provider on Admission: Dayne Izquierdo MD Consults: 09/27/24 05:40 Referral Wound Care Routine Comment: Instructions: open areas to posterior left knee, sacrum prevention care 10/11/24 09:50 Referral Physical Therapy Routine Comment: Physician Instructions: Instructions: Please evaluate for Noreen Chair Attending Provider on DC: Mike Dennison MD Discharging Provider: Mike Dennison MD DS: Diagnosis Problem List Completed Was Problem List Reviewed/Reconciled?: Yes Hospital Course Hospital Course Hospital course: Mr. Carmona is a 29 year-old male with history of cocaine induced vasculitis, trach and PEG, quadriparesis, presents to the ED form subacute for tachycardia and fever. However, on labs no leukocyte count was noted, Pt chest xray was negative for pneumonia, urinanalysis was negative for UTI and influenza A & B as well as COVID was all negative, lactic acid is within normal limits. Pt had one isolated episode of low grade fever with temperature of 100.3. Tachycardia maybe due to dehydration or pain. Pt has remained afebrile and there is no evidence of infectious causes of fever. Pt is at his baseline hemodynamically stable, vitals are stable, labs are within normal limits. Pt is to be discharged back to subacute, and all medications main remain the same. Hospitalization Diagnosis #SIRS 2/4 with unknown source #Tachycardia #History of seizures #History of cocaine-induced vasculitis #History of quadriparesis Assessment and plan discussed with my attending physician Dr. Mariah Dennison (PGY-1)- Internal medicine resident Time Spent with Patient Time attestation: Total time spent providing and/or coordinating discharge services: Time spent: Greater than 30 minutes Exam Vital Signs Temp Pulse Resp BP Pulse Ox O2 Del Method O2 Flow Rate 97.7 F 80 18 108/72 98 Blow-by 6 10/16/24 06:00 10/16/24 13:22 10/16/24 07:38 10/16/24 13:22 10/16/24 07:38 10/15/24 17:57 10/16/24 07:38 FiO2 28 10/16/24 07:38 Narrative Exam Constitutional: No acute distress. Non-verbal. HEENT: NCAT. Vision grossly intact. Trached. Does not track. Respiratory: Bilateral ronchi. Cardiac: Tachycardic. Regular rhythm. Abdomen: Soft, non-distended. PEG tube in place, clean. MSK: Flexed wrists, stiff. Skin: Pressure wounds posterior legs Discharge Plan Prescriptions/Referrals Prescriptions/Med Rec: No Action atorvastatin 40 mg tablet 40 mg feeding tube HS baclofen 20 mg tablet 20 mg feeding tube Q6HR levetiracetam 100 mg/mL solution 1,000 mg feeding tube BID gabapentin 300 mg capsule 300 mg feeding tube TID lansoprazole 30 mg capsule,delayed release(DR/EC) 30 mg feeding tube QDAY olanzapine 5 mg tablet 5 mg feeding tube QDAY propranolol 10 mg tablet 10 mg feeding tube Q8H midodrine 5 mg tablet 15 mg feeding tube Q8HR albuterol sulfate 2.5 mg /3 mL (0.083 %) solution for nebulization ascorbic acid (vitamin C) [C-500] 500 mg tablet 500 mg PO BID lactulose 10 gram/15 mL solution 10 g PO QDAY multivitamin Tablet 1 tab PO QDAY magnesium oxide 400 mg magnesium tablet 400 mg PO BID insulin lispro 100 unit/mL insulin pen subcut lactulose [Enulose] 10 gram/15 mL solution 10 g feeding tube QDAY Referrals: No Primary/Family,Physician [Primary Care Provider] - Patient/Caregiver Discharge Instructions Print Language: Namibian Quality Discharge Quality Measures VTE prophylaxis
[2024-10-17] MEDS: BACLOFEN 10 MG TABLET 20 MG GT ×2 (17:33→23:20)
--- NOTE | 2024-10-17 17:34 | PC.NURSE ---
Resident came back from acute around 1345,v/s was in normal range no sob noted we will continue to monitor.
[2024-10-17 18:42] VITALS: PULSE 75; RESP 18; O2SAT 100
[2024-10-17] MEDS: ASCORBIC ACID 500 MG TABLET GT (20:49)
[2024-10-17] MEDS: levETIRAcetam 100 MG/ML SOLUTION 1000 MG GT (20:50)
[2024-10-17] MEDS: NON-FORMULARY *SEE COMMENTS* 1 EA EA 100 EA GT (20:51)
[2024-10-17] MEDS: ATORVASTATIN 40 MG TABLET GT (20:51)
[2024-10-17] MEDS: ACETAMINOPHEN 325 MG TABLET 650 MG GT (20:51)
[2024-10-17 21:01] VITALS: BP 124/78; PULSE 103
[2024-10-17] MEDS: GABAPENTIN 300 MG CAPSULE GT (21:02)
[2024-10-17] MEDS: MAGNESIUM OXIDE 400 MG TABLET GT (22:27)
--- NOTE | 2024-10-17 22:31 | PD.SAPROG ---
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 (8) Quadriparesis: Status: Chronic OBJECTIVE Most recent vital signs: Last Vital Signs Temp 97.7 F 10/16/24 06:00 Pulse 103 H 10/17/24 21:01 Resp 18 10/17/24 18:42 BP 124/78 10/17/24 21:01 Pulse Ox 100 10/17/24 18:42 O2 Del Method Blow-by 10/15/24 17:57 O2 Flow Rate 6 10/17/24 18:42 FiO2 10/17/24 18:42 Speech:: none Answers questions:: no Respiratory:: lungs clear and shallow breathing Cardiovascular: RRR Abdomen: soft Extremities:: deformities (Quadriparesis) Tracheostomy:: to blow by Feeding per:: G tube Complaints:: none ASSESSMENT & PLAN Assessment: 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 Tolerating G tube feeding. No pain issues. Returned from acute care after treating for fever/Tachycardia with probable oncoming sepsis. Responded well to antibiotics and supportive treatment and now stable on current treatment which was continued. Plan: Current treatment reviewed and continued
[2024-10-18] VITALS (8 sets, daily range): BP systolic 93–122; BP diastolic 53–90; PULSE 76–96; RESP 18–22; TEMP 36–36.6; O2SAT 97–100
[2024-10-18] MEDS: GABAPENTIN 300 MG CAPSULE GT ×3 (05:41→21:17)
[2024-10-18] MEDS: MIDODRINE 10 MG TABLET 15 MG GT ×2 (05:41→13:19)
[2024-10-18] MEDS: BACLOFEN 10 MG TABLET 20 MG GT ×3 (05:41→17:19)
[2024-10-18] MEDS: PROPRANOLOL 10 MG TABLET GT ×2 (05:41→21:17)
[2024-10-18] MEDS: MULTIVITAMIN W MINERALS 1 EACH TABLET GT (08:53)
[2024-10-18] MEDS: LANSOPRAZOLE 30 MG CAPSULE.DR GT (08:53)
[2024-10-18] MEDS: levETIRAcetam 100 MG/ML SOLUTION 1000 MG GT ×2 (08:53→20:13)
[2024-10-18] MEDS: OLANZapine 5 MG TABLET GT (08:53)
[2024-10-18] MEDS: LACTULOSE 10 GM/15 ML SOLUTION GT (08:54)
[2024-10-18] MEDS: ASCORBIC ACID 500 MG TABLET GT ×2 (08:54→20:13)
[2024-10-18] MEDS: NON-FORMULARY *SEE COMMENTS* 1 EA EA 100 EA GT ×2 (09:00→20:13)
[2024-10-18 09:03] LABS: Basophils % (Auto) 0 % (0-2.5); Eosinophils # (Auto) 0.1 Thou/mm3 (0.0-0.5); Eosinophils % (Auto) 1 % (0-10); Hematocrit 30.3 % (41.0-53.0); Immature Granulocytes % (Auto) 0 % (0-0); Immature Granulocytes Auto 0.02 Thou/mm3 (0.00-0.00); Lymphocytes # (Auto) 1.2 Thou/mm3 (1.0-4.8); Lymphocytes % (Auto) 15 % (10-50); Mean Corpuscular Hemoglobin 29.8 pg (25.0-35.0); Mean Corpuscular Volume 90 fL (80-100); Monocytes # (Auto) 0.9 Thou/mm3 (0.0-0.8); Monocytes % (Auto) 11 % (0-12); Neutrophils % (Auto) 73 % (37-80); Nucleated Red Blood Cell % 0 /100 WBC (0); Platelet Count 240 Thou/mm3 (140-440); RDW Standard Deviation 50.4 fL (35.1-43.9); Red Blood Count 3.36 Miln/mm3 (4.50-5.90); White Blood Count 8.3 Thou/mm3 (3.8-10.6)
[2024-10-18 09:23] LABS: Alanine Aminotransferase 33 U/L (10-49); Albumin, Serum 3.7 gm/dL (3.5-5.0); Albumin/Globulin Ratio 1.4 (1.2-2.2); Alkaline Phosphatase 148 U/L (46-116); Anion Gap 13 (7-16); Aspartate Amino Transferase 36 U/L (0-34); BUN/Creatinine Ratio 32 Ratio (12-20); Bilirubin,Direct < 0.1 mg/dL (0.0-0.3); Bilirubin,Total 0.2 mg/dL (0.3-1.2); Blood Urea Nitrogen 16 mg/dL (9-23); Calcium 9.4 mg/dL (8.3-10.6); Calcium (Corrected) 9.6 mg/dL (8.5-10.1); Carbon Dioxide 23.2 mMol/L (20.0-31.0); Cardiac Risk Estimate 3.3 RATIO (4.0-6.7); Chloride 104 mMol/L (98-107); Cholesterol 114 mg/dL (132-200); Creatinine (Component) 0.5 mg/dL (0.6-1.3); Estimated Creatinine Clearance 145.4 mL/min (>60); Globulin 2.6 gm/dL (2.3-3.5); Glucose 107 mg/dL (74-106); Glucose,Fasting 107 mg/dL (74-106); HDL Cholesterol 35 mg/dL (40-60); LDL Cholesterol,Calculated 64 mg/dL (0-130); Osmolality,Calculated 280 (275-295); Sodium 140 mMol/L (136-145); Total Protein 6.3 gm/dL (5.7-8.2); Triglycerides 77 mg/dL (30-150); eGFR > 60 See Note
[2024-10-18 10:14] LABS: Glucose Estimated Average 77 mg/dL (80-131); Hemoglobin A1C 4.3 % Hgb (4.8-6.0)
[2024-10-18] MEDS: MAGNESIUM OXIDE 400 MG TABLET GT ×2 (11:15→23:32)
--- NOTE | 2024-10-18 14:50 | PC.SS ---
Resident is laying in bed with head of the bed elevated with call light placed with no signs of distress. Resident is on blow by with trach in place and GT for medication and nutrition. Resident is non verbal unable to make needs known, his mother is his decision maker. Resident has no changes in care or condition and will remain in current care and will have all subacute care needs met by staff. This SSD will continue make daily contact and will monitor for changes in mood and behavior.
[2024-10-18] MEDS: ACETAMINOPHEN 325 MG TABLET 650 MG GT (20:11)
[2024-10-18] MEDS: ATORVASTATIN 40 MG TABLET GT (21:31)
[2024-10-19] VITALS (8 sets, daily range): BP systolic 111–138; BP diastolic 74–86; PULSE 81–125; RESP 18–22; TEMP 35.9–36.8; O2SAT 99
[2024-10-19] MEDS: BACLOFEN 10 MG TABLET 20 MG GT ×5 (00:31→23:46)
[2024-10-19] MEDS: GABAPENTIN 300 MG CAPSULE GT ×3 (05:31→21:27)
[2024-10-19] MEDS: PROPRANOLOL 10 MG TABLET GT ×3 (05:32→21:27)
[2024-10-19] MEDS: NON-FORMULARY *SEE COMMENTS* 1 EA EA 100 EA GT ×2 (08:35→21:54)
[2024-10-19] MEDS: OLANZapine 5 MG TABLET GT (08:38)
[2024-10-19] MEDS: MULTIVITAMIN W MINERALS 1 EACH TABLET GT (08:39)
[2024-10-19] MEDS: ASCORBIC ACID 500 MG TABLET GT ×2 (08:39→20:47)
[2024-10-19] MEDS: LANSOPRAZOLE 30 MG CAPSULE.DR GT (08:39)
[2024-10-19] MEDS: LACTULOSE 10 GM/15 ML SOLUTION GT (08:39)
[2024-10-19] MEDS: levETIRAcetam 100 MG/ML SOLUTION 1000 MG GT ×2 (08:39→21:55)
[2024-10-19] MEDS: ACETAMINOPHEN 325 MG TABLET 650 MG GT ×2 (08:40→20:45)
[2024-10-19] MEDS: MAGNESIUM OXIDE 400 MG TABLET GT ×2 (10:45→23:56)
--- NOTE | 2024-10-19 11:30 | PC.NURSE ---
Resident noted with cold sore, order received from Dr Nichols to apply graemea. Called pharmacy to send it.
[2024-10-19] MEDS: MIDODRINE 10 MG TABLET 15 MG GT ×2 (13:32→21:26)
[2024-10-19] MEDS: ATORVASTATIN 40 MG TABLET GT (21:32)
[2024-10-20] VITALS: BP 124/81; PULSE 94; RESP 20; TEMP 36.1
[2024-10-20 05:16] VITALS: BP 128/88; PULSE 79
[2024-10-20] MEDS: BACLOFEN 10 MG TABLET 20 MG GT ×4 (05:16→23:51)
[2024-10-20] MEDS: GABAPENTIN 300 MG CAPSULE GT ×3 (05:16→21:08)
[2024-10-20] MEDS: PROPRANOLOL 10 MG TABLET GT ×3 (05:16→21:08)
[2024-10-20 06:00] VITALS: BP 128/88; PULSE 79; RESP 18; TEMP 36.2; O2SAT 95
[2024-10-20 06:41] VITALS: PULSE 82; RESP 18; O2SAT 99
[2024-10-20] MEDS: ASCORBIC ACID 500 MG TABLET GT ×2 (09:04→21:09)
[2024-10-20] MEDS: LACTULOSE 10 GM/15 ML SOLUTION GT (09:05)
[2024-10-20] MEDS: levETIRAcetam 100 MG/ML SOLUTION 1000 MG GT ×2 (09:05→21:09)
[2024-10-20] MEDS: OLANZapine 5 MG TABLET GT (09:05)
[2024-10-20] MEDS: NON-FORMULARY *SEE COMMENTS* 1 EA EA 100 EA GT ×2 (09:05→21:16)
[2024-10-20] MEDS: LANSOPRAZOLE 30 MG CAPSULE.DR GT (09:05)
[2024-10-20] MEDS: MULTIVITAMIN W MINERALS 1 EACH TABLET GT (09:05)
[2024-10-20 13:23] VITALS: BP 128/74; PULSE 87
[2024-10-20] MEDS: ACETAMINOPHEN 325 MG TABLET 650 MG GT (15:29)
[2024-10-20 21:08] VITALS: BP 111/75; PULSE 88
[2024-10-20] MEDS: MIDODRINE 10 MG TABLET 15 MG GT (21:08)
[2024-10-20] MEDS: ATORVASTATIN 40 MG TABLET GT (21:16)
[2024-10-20] MEDS: DOCOSANOL 100 EA TOPICAL (22:53)
[2024-10-20] MEDS: MAGNESIUM OXIDE 400 MG TABLET GT (23:51)
[2024-10-21] VITALS (11 sets, daily range): BP systolic 118–134; BP diastolic 65–87; PULSE 71–110; RESP 16–22; TEMP 36.1–38.6; O2SAT 96–99
[2024-10-21] MEDS: GABAPENTIN 300 MG CAPSULE GT ×3 (05:31→21:09)
[2024-10-21] MEDS: PROPRANOLOL 10 MG TABLET GT ×3 (05:31→21:10)
[2024-10-21] MEDS: BACLOFEN 10 MG TABLET 20 MG GT ×3 (05:31→17:34)
[2024-10-21] MEDS: DOCOSANOL 100 EA TOPICAL ×4 (05:32→22:05)
[2024-10-21] MEDS: ASCORBIC ACID 500 MG TABLET GT ×2 (08:22→20:47)
[2024-10-21] MEDS: LACTULOSE 10 GM/15 ML SOLUTION GT (08:23)
[2024-10-21] MEDS: levETIRAcetam 100 MG/ML SOLUTION 1000 MG GT ×2 (08:24→20:48)
[2024-10-21] MEDS: LANSOPRAZOLE 30 MG CAPSULE.DR GT (08:24)
[2024-10-21] MEDS: MULTIVITAMIN W MINERALS 1 EACH TABLET GT (08:25)
[2024-10-21] MEDS: OLANZapine 5 MG TABLET GT (08:26)
[2024-10-21] MEDS: NON-FORMULARY *SEE COMMENTS* 1 EA EA 100 EA GT ×2 (09:10→20:49)
[2024-10-21] MEDS: MAGNESIUM OXIDE 400 MG TABLET GT ×2 (11:06→23:30)
[2024-10-21] MEDS: MIDODRINE 10 MG TABLET 15 MG GT (14:04)
--- NOTE | 2024-10-21 14:10 | PD.SAPROG ---
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 (8) Quadriparesis: Status: Chronic OBJECTIVE Most recent vital signs: Last Vital Signs Temp 101.8 F H 10/22/24 20:23 Pulse 150 H 10/22/24 20:18 Resp 28 H 10/22/24 20:05 BP 134/93 H 10/22/24 20:18 Pulse Ox 99 10/22/24 20:05 O2 Del Method Blow-by 10/22/24 06:00 O2 Flow Rate 6 10/22/24 20:05 FiO2 28 10/22/24 20:05 Speech:: none Answers questions:: no Respiratory:: lungs clear and shallow breathing Cardiovascular: RRR Abdomen: soft Extremities:: deformities (Quadriparesis) Tracheostomy:: to blow by Feeding per:: G tube Complaints:: none ASSESSMENT & PLAN Assessment: 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 Tolerating G tube feeding. No pain issues. Returned from acute care after treating for fever/Tachycardia with probable oncoming sepsis. Responded well to antibiotics and supportive treatment and now stable on current treatment which was continued. VSS Plan: Current treatment reviewed and continued
[2024-10-21] MEDS: ATORVASTATIN 40 MG TABLET GT (20:50)
[2024-10-21] MEDS: ACETAMINOPHEN 325 MG TABLET 650 MG GT (23:08)
--- NOTE | 2024-10-21 23:15 | PC.NURSE ---
Resident with rectal temp of 101.5, HR 137, RR28, 02 SAT 99% On blowby @ 28%. No distress noted. Cooling measures and fever protocol initiated.
[2024-10-21 23:31] LABS: Basophils % (Auto) 0 % (0-2.5); Eosinophils % (Auto) 0 % (0-10); Hematocrit 34.5 % (41.0-53.0); Hemoglobin 11.9 g/dL (13.5-16.0); Immature Granulocytes % (Auto) 0 % (0-0); Immature Granulocytes Auto 0.04 Thou/mm3 (0.00-0.00); Lymphocytes # (Auto) 1.2 Thou/mm3 (1.0-4.8); Lymphocytes % (Auto) 11 % (10-50); Mean Corpuscular HGB Conc 34.5 g/dl (31.0-37.0); Mean Corpuscular Hemoglobin 29.8 pg (25.0-35.0); Mean Corpuscular Volume 87 fL (80-100); Monocytes # (Auto) 0.8 Thou/mm3 (0.0-0.8); Monocytes % (Auto) 8 % (0-12); Neutrophils # (Auto) 8.7 Thou/mm3 (1.8-7.7); Neutrophils % (Auto) 81 % (37-80); Nucleated Red Blood Cell % 0 /100 WBC (0); Platelet Count 309 Thou/mm3 (140-440); RDW Standard Deviation 47.8 fL (35.1-43.9); Red Blood Count 3.99 Miln/mm3 (4.50-5.90); White Blood Count 10.8 Thou/mm3 (3.8-10.6)
[2024-10-21 23:54] LABS: Collection Type, Urine Catheter
[2024-10-22] VITALS (14 sets, daily range): BP systolic 111–138; BP diastolic 81–93; PULSE 93–150; RESP 20–28; TEMP 36.3–38.8; O2SAT 98–100
[2024-10-22 00:08] LABS: Procalcitonin 0.12 ng/ml (0.0-0.49)
[2024-10-22 00:25] LABS: Bilirubin,Urine Negative (Negative); Blood,Urine Negative (Negative); Clarity,Urine Clear (Clear/Hazy); Color,Urine Lt Yellow (Lt Yel-Yel); Glucose, Urine Negative (Negative); Ketones,Urine Negative (Negative); Leukocyte Esterase,Urine Negative (Negative); Nitrite,Urine Negative (Negative); PH,Urine 7.5 (5.0-7.0); Protein,Urine Negative (Neg - Trace); Specific Gravity,Urine 1.015 (1.001-1.035); Urobilinogen,Urine 0.2 mg/dL (0.0-1.0)
[2024-10-22] MEDS: BACLOFEN 10 MG TABLET 20 MG GT ×4 (00:29→17:28)
[2024-10-22 01:24] LABS: Amorphous Crystals,Urine Present (Absent); RBC,Urine 4 /hpf (0-3); Squamous Epithelial Cell,Urine < 1 /hpf (0-5); WBC,Urine 2 /hpf (0-5)
[2024-10-22 01:37] LABS: COVID-19 Antigen (In-House) Negative (Negative); Influenza A Ag Negative; Influenza B Ag Negative
--- NOTE | 2024-10-22 02:00 | PC.NURSE ---
Resident sleeping, no distress noted. Temp 99.5 rectally. HR 93, RR 20,O2 SAT 99% BP 136/89. Continue to monitor.
[2024-10-22] MEDS: ACETAMINOPHEN 325 MG TABLET 650 MG GT ×3 (03:25→20:23)
[2024-10-22] MEDS: PROPRANOLOL 10 MG TABLET GT ×3 (05:24→20:18)
[2024-10-22] MEDS: GABAPENTIN 300 MG CAPSULE GT ×3 (05:24→21:15)
--- NOTE | 2024-10-22 06:14 | PC.NURSE ---
Reviewed lab results with Dr. Nichols. Order to closely monitor resident at this time. Resident at this time, asleep, no distress. HR 93, RR 20 99% on blowby 99%, temp 98.5 rectally. Mother, Sara, was made aware of febrile episode. No questions at this time. Will Continue to monitor.
[2024-10-22 07:25] LABS: Levetiracetam (Keppra)* 18.4 mcg/mL (6.0-46.0)
[2024-10-22] MEDS: NON-FORMULARY *SEE COMMENTS* 1 EA EA 100 EA GT ×2 (08:45→20:22)
[2024-10-22] MEDS: MULTIVITAMIN W MINERALS 1 EACH TABLET GT (08:55)
[2024-10-22] MEDS: OLANZapine 5 MG TABLET GT (08:55)
[2024-10-22] MEDS: LACTULOSE 10 GM/15 ML SOLUTION GT (08:55)
[2024-10-22] MEDS: LANSOPRAZOLE 30 MG CAPSULE.DR GT (08:55)
[2024-10-22] MEDS: levETIRAcetam 100 MG/ML SOLUTION 1000 MG GT ×2 (08:55→20:24)
[2024-10-22] MEDS: ASCORBIC ACID 500 MG TABLET GT ×2 (08:55→20:19)
[2024-10-22] MEDS: MAGNESIUM OXIDE 400 MG TABLET GT (10:58)
[2024-10-22] MEDS: DOCOSANOL 100 EA TOPICAL ×3 (10:58→17:28)
[2024-10-22] MEDS: MIDODRINE 10 MG TABLET 15 MG GT (13:51)
[2024-10-22] MEDS: ATORVASTATIN 40 MG TABLET GT (20:22)
--- NOTE | 2024-10-22 20:42 | PC.NURSE ---
VS:134/93,101.8,30,150,99%, resident noted to have an elevated HR and fever, made aware, new order to send resident to ER for evaluation and treatment if indicated for possible sepsis, this nurse called ER at 2032, per charge nurse no room available at this time, will call me back when room is available, RP made aware of resident being send out to ER.
--- NOTE | 2024-10-22 21:35 | PC.NURSE ---
Resident send out to ER at 2130 via bed by CARDING MACHINE FEEDER, RT and HEALTH SERVICES COORDINATOR.
[2024-10-23 09:57] VITALS: BMI 15.0
== END 2024-10-30 00:01 | disposition admitted as inpatient to this hospital (09) | DRG 133 ==
PROVIDERS: Specialist; Admitting Provider Family Medicine; Visit Provider Family Medicine
DX: J96.20 Acute and chronic respiratory failure, unspecified whether with hypoxia or hypercapnia (principal); I67.7 Cerebral arteritis, not elsewhere classified; G40.89 Other seizures; G93.40 Encephalopathy, unspecified; Z93.0 Tracheostomy status; G82.50 Quadriplegia, unspecified; J18.9 Pneumonia, unspecified organism; D64.9 Anemia, unspecified
CPT/HCPCS: 36415; 36600; 80053; 80061; 80076; 80177; 81001; 82803; 82947; 83036; 84145; 85025; 87040; 87077; 87086; 87186; 87205; 87502; 87811; 93005

== ENCOUNTER 2024-10-16 21:04 | Inpatient (IN) | payer OTHER, SELFPAY ==
[2024-10-16 21:04] VITALS: PULSE 143; RESP 22; O2SAT 96
[2024-10-16 21:11] VITALS: BMI 14.7
[2024-10-16 21:13] VITALS: BP 117/92; PULSE 140; RESP 19; TEMP 37.9; O2SAT 97
--- NOTE | 2024-10-16 21:33 | XR_ITS ---
Examination: AP chest single view TECHNIQUE: AP portable upright chest single view Standing x20 10/16/2024 2156 hours INDICATIONS: Sepsis protocol FINDINGS: Tracheostomy tube tip 4.5 cm above Maranda Normal heart size No lobar pneumonia IMPRESSION: No lobar pneumonia
--- NOTE | 2024-10-16 21:56 | EDNOTE_ITS ---
ED Fever RME/HPI General Chief Complaint: General Adult/Misc Complain Stated Complaint: ELEVATED HEART RATE Time Seen by Provider: 10/16/24 21:07 Source: patient, RN notes reviewed and old records reviewed Arrival date/time: 10/16/24 21:04 Mode of arrival: other (Patient came over from subacute.) Limitations: other (Trach) RME / HPI RME / HPI Narrative: DR. BARROS?Jennyfer MAIN ED EVALUATION: 29 year-old male with history of cocaine induced vasculitis status post chronic respiratory hypoxia, trach and PEG, quadriparesis, history of Pseudomonas pneumo regis presenting to the emergency department by bed with sepsis, fever. Patient otherwise is nonverbal and does not get up out of bed. Patient otherwise has had some cough. Review of the record shows: - PMH: History of chronic respiratory failure hypoxia, cocaine induced cerebral vasculitis, encephalitis with history of altered mental status, seizure disorder, chronic anemia, quadriparesis, status post tracheostomy by blow-by and feeding tube, history of trach site cellulitis on Bactrim in the past. History of Pseudomonas pneumonia. - PSH: G-tube placement, history of tracheostomy - Social history: Patient lives in [facility] rehab - Current medications: Reviewed please see nurses notes. PCP is Dr. Thompson. complaint: fever Related Data Allergies Allergy/AdvReac Type Severity Reaction Status Date / Time NKA Allergy Uncoded 09/21/24 15:43 Review of Systems Review of Systems ROS Unobtainable: unobtainable due to medical condition (Patient does not talk.) Past Medical History Past Medical History CARDIAC: Positive Hypercholesterolemia and Hypotension RESPIRATORY: Positive Pneumonia GASTROINTESTINAL: Positive Gastrointestinal Disorders and Gastroesophageal Reflux Disease ENDOCRINE: Positive Systemic Lupus Erythematosus Surgical History SURGICAL: Positive Tracheostomy and Gastrostomy Physical Exam General Limitations: other (Trach) General appearance: alert and other (Patient appears ill.) Head Head exam: atraumatic Eye Eye exam: Present normal appearance and EOMI; Absent scleral icterus ENT ENT exam: Present normal exam, normal oropharynx and mucous membranes dry Neck Neck exam: Present normal inspection, full ROM and trachea midline Chest Chest inspection: Present normal inspection and symmetric chest wall rise Respiratory Respiratory exam: Present normal lung sounds bilaterally and other (Increased respiratory rate); Absent wheezes Cardiovascular Cardiovascular exam: Present regular rate, normal rhythm, tachycardia and normal heart sounds Abdominal Exam Abdominal exam: Present soft and normal bowel sounds; Absent distention, tenderness, guarding or rebound Extremities Exam Extremities exam: Present other (Patient contracted x 4.) Back Exam Back exam: Present normal inspection Neurological Exam Neurological exam: Present other (Awake) Psychiatric Psychiatric exam: Present normal affect Skin Skin exam: Present warm and dry; Absent rash, cyanosis or diaphoresis ED Exam Narrative Physical exam: Patient is looking around the room. Not febrile. Increased respiratory rate. General Limitations: Present other (Trach) General appearance: Present alert and other (Patient appears ill.) Head Head exam: Present atraumatic Eye Eye exam: Present normal appearance and EOMI; Absent scleral icterus ENT ENT exam: Present normal exam, normal oropharynx and mucous membranes dry Neck Neck exam: Present normal inspection, full ROM and trachea midline Chest Chest inspection: Present normal inspection and symmetric chest wall rise Respiratory Respiratory exam: Present normal lung sounds bilaterally and other (Increased respiratory rate); Absent wheezes Cardiovascular Cardiovascular exam: Present regular rate, normal rhythm, tachycardia and normal heart sounds Abdominal Exam Abdominal exam: Present soft and normal bowel sounds; Absent distention, tenderness, guarding or rebound Extremities Exam Extremities exam: Present other (Patient contracted x 4.) Back Exam Back exam: Present normal inspection Neurological Exam Neurological exam: Present other (Awake) Psychiatric Psychiatric exam: Present normal affect Skin Skin exam: Present warm and dry; Absent rash, cyanosis or diaphoresis Course Course Course Narrative: Chest x-ray is obtained for indications for fever and sepsis. Sepsis alert initiated @patient arrival orders made at this time are congruent with ED Adult Sepsis Order List. Re-evaluation is to be completed following the administration of IV fluids and antibiotics. SIRS Criteria: 29 yo male PMHX subacute patient with fever and increased respiratory rate. Patient has history of cocaine vasculitis encephalopathy, and pneumonia in the past. BIBA or presented to ED with c/c fever and increased respiratory rate. Sepsis labs ordered after initial CBC showed ()white count. Patient meets the following SIRS criteria; Tachycardic (/min), Tachypnic (RR) and has an elevated white count. Sepsis reassessment performed @ () consisting of lab review, vitals, physical exam including auscultation of heart, lungs, and visual evaluation of capillary refills, mucosal membranes and extremities. Patient has been given 1L normal saline. We 0.375 Zosyn IV has been ordered and will be administered pending (RADS). Pertinent lab results include; WBC- Lactic- Procalcitonin- < Pt has the following organ dysfunction criteria; Lactate > 2.0 * Blood cultures drawn PRIOR to antibiotic administration. Culture(s) pending. Quality Measures comfort care/end of life Orders Category Date Time Status Lean Manager STAT Care 10/16/24 21:33 Active Continuous Pulse Oximetry STAT Care 10/16/24 21:33 Completed EKG (ED ONLY) *Do not use* NOW Care 10/16/24 21:33 Completed In and Out Catheter X1PRN Care 10/16/24 21:33 Completed Insert IV NOW Care 10/16/24 21:33 Active NPO STAT Care 10/16/24 21:33 Active Strict Intake and Output Routine Care 10/16/24 21:33 Ordered EKG (ED Only) Stat Exams 10/16/24 21:33 Ordered XR chest 1V SEPSIS PROTOCOL Stat Exams 10/16/24 21:33 Completed B-Type Natriuretic Peptide Stat Lab 10/16/24 21:50 Completed Blood Culture (Lab) Stat Lab 10/16/24 21:10 Received CBC Stat Lab 10/16/24 21:50 Completed Comprehensive Metabolic Panel Stat Lab 10/16/24 21:50 Completed LDH (Lactate Dehydrogenase) Stat Lab 10/16/24 21:50 Completed Lactate (Lactic Acid) Stat Lab 10/16/24 21:50 Completed Lipase Stat Lab 10/16/24 21:50 Completed Magnesium Stat Lab 10/16/24 21:50 Completed Partial Thromboplastin Time Stat Lab 10/16/24 21:50 Completed Phosphorous Stat Lab 10/16/24 21:50 Completed Procalcitonin Stat Lab 10/16/24 21:50 Completed Prothrombin Time with INR Stat Lab 10/16/24 21:50 Completed Troponin I Stat Lab 10/16/24 21:50 Completed Urinalysis Stat Lab 10/16/24 21:45 Completed Urine Culture Stat Lab 10/16/24 21:45 Received Piper/Tazo 3.375 gm Premix [Zosyn] Med 10/16/24 21:31 Discontinued 3.375 gm in 50 ml IV X1 Sodium Chloride 0.9% 1000 ml [Ns] 2,196 ml Med 10/16/24 22:20 Discontinued IV 2,196 mls/hr Oxygen Delivery NOW RT 10/16/24 21:33 Active Vital Signs Vital signs: Vital Signs Pulse Rate 143 H 10/16/24 21:04 Respiratory Rate 22 H 10/16/24 21:04 Pulse Oximetry (%) 96 10/16/24 21:04 Oxygen Flow Rate 6 10/16/24 21:04 Fraction of Inspired Oxygen 28 10/16/24 21:04 Fever MDM Narrative MDM Narrative:: Scribe Attestation: I, Carmita Bruner, am scribing for and in the presence of Dr. Barros. Provider Notation: Although this document has been carefully reviewed, there may still be some phonetic and other typographical errors. These errors are purely grammatical due to imperfections in the software program and should not be construed in any way to compromise the substance of the patient's medical care during this visit. Patient data External records reviewed:: [facility] records ([facility] at [facility] Clinical information provided by:: none (Nursing.) Social determinants that could affect healthcare access:: none (Patient comes from subacute) Patient has the following chronic illnesses:: 1.Chronic respiratory failure/hypoxia 2.Cocaine induced cerebral vasculitis/ Encephalopathy with altered mental status 3. Seizure disorder 4. Chronic anemia 5 Quadriparesis 6. S/P tracheostomy to blow by and a feeding PEG tube 7. Trach site cellulitis and on Bactrim DS 8. Pseudomonas pn on antibiotics with good respons How is presenting disease/condition affected by chronic disease/condition?: exacerbated by Evaluation data The following diagnostics were reviewed and interpreted by me:: lab results, radiology exam(s) and EKG tracing(s) Lab and/or radiology exams considered but not ordered:: None Interpretation Summary: CHEST X-RAY FINDINGS: Tracheostomy tube tip 4.5 cm above Maranda Normal heart size No lobar pneumonia IMPRESSION: No lobar pneumonia LABS Hematology: RBC 3.85, Hgb 11.4, Hct 34.4, RDW Std Dev. 51.6, Immature granulcytes # 0.02. Coagulation: PT 13.5 seconds. Chemistry: Corrected Ca 10.2, Total bilirubin < 0.2, Alkaline phosphates 166, B- natruretic Peptide < 0. Urine: Clarity Turbid A, pH 8.0, RBC 31, Amorphus crystals Present A. Medications / Prescriptions Medications or Prescriptions considered but not ordered:: None Medication administrations:: Medication Administration History Acetaminophen (Acetaminophen 325 Mg Tablet) 650 mg PO Q6H PRN PRN Reason: Fever >100.4 or pain 1-3 Stop: 11/15/24 23:56 Ascorbic Acid (Ascorbic Acid 250 Mg Tablet) 500 mg GT BID RADHA Stop: 11/16/24 08:59 Atorvastatin Calcium (Atorvastatin Calcium 10 Mg Tablet) 40 mg GT HS RADHA Stop: 11/16/24 20:59 Baclofen (Baclofen 10 Mg Tablet) 20 mg GT QID RADHA Stop: 11/16/24 05:59 Gabapentin (Gabapentin 300 Mg Capsule) 300 mg GT TID RAD[facility] Stop: 11/16/24 05:59 Heparin Sodium (Porcine) (Heparin Sod Inj 5000 Unit/Ml Vial) 5,000 unit SC Q8HR RADHA Stop: 10/31/24 05:59 Cefepime HCl 1 gm/ Sodium (Chloride) 50 mls @ 100 mls/hr IV Q8HR RADHA Stop: 10/23/24 23:58 Doxycycline Hyclate 100 mg/ (Sodium Chloride) 100 mls @ 100 mls/hr IV BID [facility]HA Stop: 10/24/24 08:59 Lansoprazole (Lansoprazole 30 Mg Tab.Rap.Dr) 30 mg GT QDAY [facility] Stop: 11/16/24 08:59 Levetiracetam (Levetiracetam Liqd 500 Mg/5 Ml Udc) 1,000 mg GT BID [facility] Stop: 11/16/24 08:59 Midodrine (Midodrine 5 Mg Tablet) 15 mg GT Q8HR RADHA Stop: 11/16/24 05:59 Olanzapine (Olanzapine 5 Mg Tablet) 5 mg GT QDAY [facility] Stop: 11/16/24 08:59 Ondansetron HCl (Ondansetron Inj 2 Mg/Ml Inj 2 Ml) 4 mg IV Q6H PRN; Protocol PRN Reason: NAUSEA OR VOMITING Stop: 11/15/24 23:56 Propranolol HCl (Propranolol 10 Mg Tablet) 10 mg PO TID RADHA Stop: 11/16/24 05:59 Discontinued Medications Piperacillin/Tazobactam/Dextrose (Zosyn) 3.375 gm in 50 mls @ 100 mls/hr IV X1 ONE Stop: 10/16/24 22:00 Last Infusion: 10/16/24 22:56 Dose: Infused Documented By: Admin: 10/16/24 22:25 Dose: 100 mls/hr Documented By: PHILIP Sodium Chloride (Ns) 2,196 mls @ 2,196 mls/hr 30 ml/kg infuse over 60 min (2196 ml) IV .Q1H ONE Stop: 10/16/24 23:19 Last Infusion: 10/16/24 23:55 Dose: Infused Documented By: Admin: 10/16/24 22:25 Dose: 2,196 mls/hr Documented By: PHILIP Azithromycin 500 mg/ Sodium (Chloride) 250 mls @ 250 mls/hr IV QDAY [facility] Stop: 10/23/24 23:58 Last Admin: 10/17/24 00:59 Dose: Not Given Documented By: JEANNE Non-Admin Reason: Discontinued Cefepime HCl 1 gm/ Sodium (Chloride) 50 mls @ 100 mls/hr IV X1 ONE Stop: 10/17/24 00:44 Last Infusion: 10/17/24 00:58 Dose: Infused Documented By: Admin: 10/17/24 00:27 Dose: 100 mls/hr Documented By: JEANNE Doxycycline Hyclate 100 mg/ (Sodium Chloride) 100 mls @ 100 mls/hr IV X1 ONE Stop: 10/17/24 01:14 Last Infusion: 10/17/24 02:11 Dose: Infused Documented By: Admin: 10/17/24 01:04 Dose: 100 mls/hr Documented By: JEANNE Pharmacy Consult (Vancomycin Pharmacy To Dose 1 Each Each) 1 each IV QDAY [facility] Stop: 11/16/24 08:59 See above if any Consultations Consultation(s) initiated? (list below): Yes Consultation #1 (Physician, Specialty, Details): Spoke with resident for Hospitalist, Dr. Ashford. Hospitalist will admit patient. Time: 23:49 Diagnosis Fever Differential Diagnosis: community acquired pneumonia, pyelonephritis, viral infection and sepsis Most likely diagnosis given after review of the tests above:: Chronic respiratory failure, G tube feedings, HABP, Tracheostomy in place Admission Indicated Admission indicated?: indicated Admission Request Was there a request for admission?: Yes Admission Attestation Admission request attestation: Discussed case with [] from Hospitalist service regarding admission. Discussed patients ED course, exam findings, labs, and radiology results. The Hospitalist [agrees,declines] to accept the patient for admission. Disposition Plan Disposition Plan: Admit Discharge Plan Plan Patient Disposition: Admit Acute Care w/in Hospital Problem List Clinical Impression: Chronic respiratory failure, G tube feedings, Sepsis, HABP (hospital-acquired bacterial pneumonia), Tracheostomy in place
[2024-10-16 22:00] VITALS: PULSE 133
--- NOTE | 2024-10-16 22:00 | PC.NURSE ---
pt brought over from subacute for elevated heart rate. report received from staff. reports pt heart rate elevated at 156. pt given tylenol at 2033 and cooling measures applied. per nurse pt sent over for evaluation of sepsis. pt awake with eyes open, pt non verbal. pt placed on monitor.
[2024-10-16 22:06] LABS: Lactate (Lactic Acid) 0.9 mMol/L (0.4-2.0)
[2024-10-16 22:08] LABS: Basophils % (Auto) 0 % (0-2.5); Eosinophils % (Auto) 0 % (0-10); Hematocrit 34.4 % (41.0-53.0); Hemoglobin 11.4 g/dL (13.5-16.0); Immature Granulocytes % (Auto) 0 % (0-0); Immature Granulocytes Auto 0.02 Thou/mm3 (0.00-0.00); Lymphocytes # (Auto) 1.4 Thou/mm3 (1.0-4.8); Lymphocytes % (Auto) 17 % (10-50); Mean Corpuscular HGB Conc 33.1 g/dl (31.0-37.0); Mean Corpuscular Hemoglobin 29.6 pg (25.0-35.0); Mean Corpuscular Volume 89 fL (80-100); Monocytes # (Auto) 0.8 Thou/mm3 (0.0-0.8); Monocytes % (Auto) 9 % (0-12); Neutrophils # (Auto) 5.8 Thou/mm3 (1.8-7.7); Neutrophils % (Auto) 73 % (37-80); Nucleated Red Blood Cell % 0 /100 WBC (0); Platelet Count 275 Thou/mm3 (140-440); RDW Standard Deviation 51.6 fL (35.1-43.9); Red Blood Count 3.85 Miln/mm3 (4.50-5.90)
[2024-10-16] MEDS: PIPER/TAZO 3.375 GM PREMIX 3.375 GM/50 ML BAG IV (22:25)
[2024-10-16] MEDS: SODIUM CHLORIDE 0.9% 2196 ML IV (22:25)
[2024-10-16 22:26] LABS: INR 1.3 (0.9-1.3); Partial Thromboplastin Time 29.1 Seconds (22.0-36.0); Prothrombin Time 13.5 Seconds (9.0-12.2)
[2024-10-16 22:27] LABS: Alanine Aminotransferase 35 U/L (10-49); Albumin, Serum 4.4 gm/dL (3.5-5.0); Albumin/Globulin Ratio 1.3 (1.2-2.2); Alkaline Phosphatase 166 U/L (46-116); Anion Gap 7 (7-16); Aspartate Amino Transferase 34 U/L (0-34); BUN/Creatinine Ratio 20 Ratio (12-20); Bilirubin,Total < 0.2 mg/dL (0.3-1.2); Blood Urea Nitrogen 14 mg/dL (9-23); Calcium 10.2 mg/dL (8.3-10.6); Calcium (Corrected) 10.2 mg/dL (8.5-10.1); Carbon Dioxide 25.6 mMol/L (20.0-31.0); Chloride 106 mMol/L (98-107); Creatinine (Component) 0.7 mg/dL (0.6-1.3); Estimated Creatinine Clearance 103.8 mL/min (>60); Globulin 3.3 gm/dL (2.3-3.5); Glucose 84 mg/dL (74-106); LDH (Lactate Dehydrogenase) 233 U/L (120-246); Lipase 32 U/L (12-53); Magnesium 1.7 mg/dL (1.6-2.6); Osmolality,Calculated 277 (275-295); Potassium 4.5 mMol/L (3.4-5.1); Sodium 139 mMol/L (136-145); Total Protein 7.7 gm/dL (5.7-8.2); Troponin I < 0.020 ng/mL (0.0-0.045); eGFR > 60 See Note
[2024-10-16 22:33] LABS: Procalcitonin 0.12 ng/ml (0.0-0.49)
[2024-10-16 22:43] LABS: Collection Type, Urine Clean Catch
[2024-10-16 22:43] LABS: B-Type Natriuretic Peptide < 0 pg/mL (0-100)
[2024-10-16 23:10] LABS: Amorphous Crystals,Urine Present (Absent); Bilirubin,Urine Negative (Negative); Blood,Urine Negative (Negative); Clarity,Urine Turbid (Clear/Hazy); Color,Urine Yellow (Lt Yel-Yel); Glucose, Urine Negative (Negative); Ketones,Urine Negative (Negative); Leukocyte Esterase,Urine Negative (Negative); Nitrite,Urine Negative (Negative); Protein,Urine Negative (Neg - Trace); RBC,Urine 31 /hpf (0-3); Specific Gravity,Urine 1.016 (1.001-1.035); Squamous Epithelial Cell,Urine 1 /hpf (0-5); Urobilinogen,Urine Negative mg/dL (0.0-1.0); WBC,Urine 5 /hpf (0-5)
[2024-10-16 23:52] VITALS: BP 131/85; PULSE 127; RESP 24; TEMP 37.3; O2SAT 97
--- NOTE | 2024-10-16 23:58 | PD.RESHP ---
Documentation for date of: 10/16/24 [facility] History of Present Illness History of present illness: Patient is a 29 year-old male with history of cocaine induced vasculitis, trach and PEG, quadriparesis, presents to the ED form subacute for tachycardia and fever. Patient non-verbal so history obtained by chart review. Patient was recently admitted to subacute earlier this month. He was noted to be tachycardic in the 140s and so was brought to the ER. PMH: chronic respiratory failure s/p trach, cocaine induced cerebral vasculitis, encephalitis with history of altered mental status, seizure disorder, chronic anemia, quadriparesis, SH: PEG tube, tracheostomy Meds: duclolax, fleet enema, Milk of Mag, miralax, tylonel, albuterol inhaler, ascorbic acid, lipitor, keppra, gabapentin, propanolol, baclofen, lactuloes, lansoprazole, multivtimain, midodrine 15 tid, olanzapine, magnestium, insulin Vitals on initial presentation show low grade fever at 100.2 and tachycardia. In the ED, patient received sepsis bundle of IVF and antibiotics. CXR was unremarkable, UA not suggestive of UTI. No leukocytosis, procal negative. Review of Systems Review of Systems ROS Unobtainable: unobtainable due to mental status and unobtainable due to medical condition Exam Vital Signs Temp Pulse Resp BP Pulse Ox O2 Del Method O2 Flow Rate 98.6 F 118 H 22 H 143/99 H 96 Blow-by 6 10/17/24 04:00 10/17/24 06:47 10/17/24 06:47 10/17/24 06:36 10/17/24 06:47 10/17/24 04:00 10/17/24 06:47 FiO2 28 10/17/24 06:47 Narrative Exam Constitutional: No acute distress. Non-verbal. HEENT: NCAT. Vision grossly intact. Trached. Does not track. Respiratory: Bilateral ronchi. Cardiac: Tachycardic. Regular rhythm. Abdomen: Soft, non-distended. PEG tube in place, clean. MSK: Flexed wrists, stiff. Skin: Pressure wounds posterior legs Results: Labs 10/17/24 05:11 10/17/24 05:11 Labs: Short CBC 10/16/24 10/17/24 Range/Units 21:50 05:11 WBC 8.0 8.3 (3.8-10.6) Thou/mm3 Hgb 11.4 L 9.9 L (13.5-16.0) g/dL Hct 34.4 L 30.9 L (41.0-53.0) % Plt Count 275 D 226 D (140-440) Thou/mm3 BMP 10/16/24 10/17/24 21:50 05:11 Sodium 139 141 Potassium 4.5 4.1 Chloride 106 110 H Carbon Dioxide 25.6 21.2 BUN 14 15 Creatinine 0.7 0.6 Glucose 84 71 L Calcium 10.2 9.8 Cardiac Enzymes 10/16/24 Range/Units 21:50 Troponin I < 0.020 (0.0-0.045) ng/mL Liver Function 10/16/24 Range/Units 21:50 Total Bilirubin < 0.2 L (0.3-1.2) mg/dL AST 34 (0-34) U/L ALT 35 (10-49) U/L Alkaline Phosphatase 166 H (46-116) U/L Albumin 4.4 (3.5-5.0) gm/dL Urine 10/16/24 Range/Units 21:45 Urine Color Yellow (Lt Yel-Yel) Urine Clarity Turbid A (Clear/Hazy) Urine pH 8.0 H (5.0-7.0) Ur Specific [place] 1.016 (1.001-1.035) Urine Protein Negative (Neg - Trace) Urine Glucose (UA) Negative (Negative) Quality Measures Quality Measures comfort care/end of life Medications Home Medications and Allergies Home Medications ?Medication ?Instructions ?Recorded ?Confirmed ?Type albuterol sulfate 2.5 mg/3 mL mg 10/17/24 History (0.083 %) solution for nebulization ascorbic acid (vitamin C) 500 mg 500 mg PO BID 10/17/24 10/17/24 History tablet (C-500) atorvastatin 40 mg tablet 40 mg feeding tube HS 10/17/24 10/17/24 History baclofen 20 mg tablet 20 mg feeding tube Q6HR 10/17/24 10/17/24 History gabapentin 300 mg capsule 300 mg feeding tube TID 10/17/24 10/17/24 History insulin lispro 100 unit/mL subcut 10/17/24 History subcutaneous pen lactulose 10 gram/15 mL oral 10 g PO QDAY 10/17/24 10/17/24 History solution lactulose 10 gram/15 mL oral 10 g feeding tube QDAY 10/17/24 10/17/24 History solution (Enulose) lansoprazole 30 mg capsule,delayed 30 mg feeding tube QDAY 10/17/24 10/17/24 History release levetiracetam 100 mg/mL oral 1,000 mg feeding tube BID 10/17/24 10/17/24 History solution magnesium oxide 400 mg PO BID 10/17/24 10/17/24 History midodrine 5 mg tablet 15 mg feeding tube Q8HR 10/17/24 10/17/24 History multivitamin 1 tab PO QDAY 10/17/24 10/17/24 History olanzapine 5 mg tablet 5 mg feeding tube QDAY 10/17/24 10/17/24 History propranolol 10 mg tablet 10 mg feeding tube Q8H 10/17/24 10/17/24 History Allergies Allergy/AdvReac Type Severity Reaction Status Date / Time NKA Allergy Uncoded 09/21/24 15:43 Visit Medications Acetaminophen (Acetaminophen 325 Mg Tablet) 650 mg PO Q6H PRN PRN Reason: Fever >100.4 or pain 1-3 Stop: 11/15/24 23:56 Ascorbic Acid (Ascorbic Acid 250 Mg Tablet) 500 mg GT BID RADHA Stop: 11/16/24 08:59 Atorvastatin Calcium (Atorvastatin Calcium 10 Mg Tablet) 40 mg GT HS RADHA Stop: 11/16/24 20:59 Baclofen (Baclofen 10 Mg Tablet) 20 mg GT QID [facility] Stop: 11/16/24 05:59 Last Admin: 10/17/24 05:20 Dose: 20 mg Gabapentin (Gabapentin 300 Mg Capsule) 300 mg GT TID [facility] Stop: 11/16/24 05:59 Last Admin: 10/17/24 05:19 Dose: 300 mg Heparin Sodium (Porcine) (Heparin Sod Inj 5000 Unit/Ml Vial) 5,000 unit SC Q8HR [facility] Stop: 10/31/24 05:59 Last Admin: 10/17/24 05:20 Dose: 5,000 unit Cefepime HCl 1 gm/ Sodium (Chloride) 50 mls @ 100 mls/hr IV Q8HR [facility] Stop: 10/23/24 05:59 Doxycycline Hyclate 100 mg/ (Sodium Chloride) 100 mls @ 100 mls/hr IV BID [facility] Stop: 10/24/24 08:59 Lansoprazole (Lansoprazole 30 Mg Tab.Rap.Dr) 30 mg GT QDAY [facility] Stop: 11/16/24 08:59 Levetiracetam (Levetiracetam Liqd 500 Mg/5 Ml Udc) 1,000 mg GT BID [facility] Stop: 11/16/24 08:59 Midodrine (Midodrine 5 Mg Tablet) 15 mg GT Q8HR [facility] Stop: 11/16/24 05:59 Last Admin: 10/17/24 06:36 Dose: Not Given Olanzapine (Olanzapine 5 Mg Tablet) 5 mg GT QDAY [facility] Stop: 11/16/24 08:59 Ondansetron HCl (Ondansetron Inj 2 Mg/Ml Inj 2 Ml) 4 mg IV Q6H PRN; Protocol PRN Reason: NAUSEA OR VOMITING Stop: 11/15/24 23:56 Propranolol HCl (Propranolol 10 Mg Tablet) 10 mg PO TID [facility] Stop: 11/16/24 05:59 Last Admin: 10/17/24 05:20 Dose: 10 mg Discontinued Medications Piperacillin/Tazobactam/Dextrose (Zosyn) 3.375 gm in 50 mls @ 100 mls/hr IV X1 ONE Stop: 10/16/24 22:00 Last Infusion: 10/16/24 22:56 Dose: Infused Sodium Chloride (Ns) 2,196 mls @ 2,196 mls/hr 30 ml/kg infuse over 60 min (2196 ml) IV .Q1H ONE Stop: 10/16/24 23:19 Last Infusion: 10/16/24 23:55 Dose: Infused Azithromycin 500 mg/ Sodium (Chloride) 250 mls @ 250 mls/hr IV QDAY [facility] Stop: 10/23/24 23:58 Last Admin: 10/17/24 00:59 Dose: Not Given Cefepime HCl 1 gm/ Sodium (Chloride) 50 mls @ 100 mls/hr IV X1 ONE Stop: 10/17/24 00:44 Last Infusion: 10/17/24 00:58 Dose: Infused Doxycycline Hyclate 100 mg/ (Sodium Chloride) 100 mls @ 100 mls/hr IV X1 ONE Stop: 10/17/24 01:14 Last Infusion: 10/17/24 02:11 Dose: Infused Pharmacy Consult (Vancomycin Pharmacy To Dose 1 Each Each) 1 each IV QDAY [facility] Stop: 11/16/24 08:59 Assessment & Plan Plan 29 year-old male with history of cocaine induced vasculitis, trach and PEG, quadriparesis, presents to the ED form subacute for tachycardia and fever. #SIRS with unknown source Patient presents with tachycardi at 143, low grade fever No leukocytosis, lactic acid CXR no pneumonia, UA not suggestive of UTI - Consider influenza - Follow up cultures - Empiric broad spectrum antibiotics cefepime and doxycyline #Tachycardia Due to dehydration, SIRS with unknown source - IVF - Continue home propanolol - Consider echo #History of seizures #History of cocaine-induced vasculitis #History of quadriparesis - Continue home keprra - Continue home baclofen, gabapentin, olanzapine - Continue home atorvastatin Health Maintenance Disposition: Admit for SIRS with unknown source, tachycardia Diet and fluids: NPO; follow up PEG tube feedings DVT prophylaxis: heparin GI prophylaxis: protonix CODE STATUS: DNR (see POLST) I have reviewed and discussed the patient's care with my attending, Dr. Dejon Van MD PGY-3 Attending Provider Attestation/Addendum I attest that I was physically present for the evaluation, physical examination, lab and imaging review of the patient with the residents. I discussed the case with the residents and agree with the findings and plans of care as documented above. Patient is a 29 years old male with past medical history of cocaine induced vasculitis, trached and pegged, quadriparesis who presented to the ED from subacute with complaint of tachycardia and fever. Patient is nonverbal and unable to provide any history, information obtained through chart review. In the ED, he was found to be tachycardic and had low-grade fever 100.2 ?F. Chest x-ray and UA were negative. On physical examination only had some pressure sore on bilateral knees, which appeared uninfected. We will admit the patient for source with risk of progression to sepsis. We will start him on broad-spectrum antibiotics, follow-up culture results and evaluate for source. We will resume his home medications including Keppra, baclofen, gabapentin, olanzapine and atorvastatin. We will continue with PEG tube feeding. Beth Ashford MD
[2024-10-17] VITALS (8 sets, daily range): BP systolic 113–143; BP diastolic 77–99; PULSE 91–123; RESP 16–27; TEMP 36.1–38; O2SAT 96–100; BMI 14.7
[2024-10-17] MEDS: CEFEPIME INJ 1 GM in SODIUM CHLORIDE 0.9% (Popper) 50 ML IV ×2 (00:27→10:21)
[2024-10-17] MEDS: DOXYCYCLINE INJ 100 MG in SODIUM CHLORIDE 0.9% (POP) 100 ML IV (01:04)
--- NOTE | 2024-10-17 02:38 | PC.NURSE ---
REPORT CALLED TO YANETH DE SOUZA AT THIS TIME.
[2024-10-17] MEDS: GABAPENTIN 300 MG CAPSULE GT (05:19)
[2024-10-17] MEDS: BACLOFEN 10 MG TABLET 20 MG GT ×2 (05:20→12:41)
[2024-10-17] MEDS: PROPRANOLOL 10 MG TABLET PO (05:20)
[2024-10-17] MEDS: HEPARIN SOD INJ 5000 UNIT/ML VIAL SC (05:20)
[2024-10-17 06:00] LABS: Basophils % (Auto) 0 % (0-2.5); Eosinophils % (Auto) 0 % (0-10); Hematocrit 30.9 % (41.0-53.0); Hemoglobin 9.9 g/dL (13.5-16.0); Immature Granulocytes % (Auto) 0 % (0-0); Immature Granulocytes Auto 0.02 Thou/mm3 (0.00-0.00); Lymphocytes # (Auto) 1.4 Thou/mm3 (1.0-4.8); Lymphocytes % (Auto) 17 % (10-50); Mean Corpuscular Hemoglobin 29.5 pg (25.0-35.0); Mean Corpuscular Volume 92 fL (80-100); Monocytes % (Auto) 12 % (0-12); Neutrophils # (Auto) 5.8 Thou/mm3 (1.8-7.7); Neutrophils % (Auto) 70 % (37-80); Nucleated Red Blood Cell % 0 /100 WBC (0); Platelet Count 226 Thou/mm3 (140-440); Red Blood Count 3.36 Miln/mm3 (4.50-5.90); White Blood Count 8.3 Thou/mm3 (3.8-10.6)
[2024-10-17 06:36] LABS: Anion Gap 10 (7-16); BUN/Creatinine Ratio 25 Ratio (12-20); Blood Urea Nitrogen 15 mg/dL (9-23); Calcium 9.8 mg/dL (8.3-10.6); Carbon Dioxide 21.2 mMol/L (20.0-31.0); Chloride 110 mMol/L (98-107); Creatinine (Component) 0.6 mg/dL (0.6-1.3); Estimated Creatinine Clearance 121.1 mL/min (>60); Glucose 71 mg/dL (74-106); Magnesium 1.6 mg/dL (1.6-2.6); Osmolality,Calculated 280 (275-295); Potassium 4.1 mMol/L (3.4-5.1); Sodium 141 mMol/L (136-145); eGFR > 60 See Note
[2024-10-17 09:47] LABS: Influenza A Ag Negative; Influenza B Ag Negative
[2024-10-17] MEDS: ASCORBIC ACID 250 MG TABLET 500 MG GT (10:22)
[2024-10-17] MEDS: OLANZapine 5 MG TABLET GT (10:22)
[2024-10-17] MEDS: levETIRAcetam LIQD 500 MG/5 ML UDC 1000 MG GT (10:22)
[2024-10-17] MEDS: LANSOPRAZOLE 30 MG TAB.RAP.DR GT (10:25)
--- NOTE | 2024-10-17 10:38 | PC.NURSE ---
Per Dr. Portillo, hold Doxycycline d/t discharge.
--- NOTE | 2024-10-17 11:10 | PC.SS ---
Patient Meena Carmona is a 29 Year old male admitted for PNA. SS contacted patient's mother, Sara Carmona who reports is surrogate decision maker, . She reports that patient has been at [facility] since last month. Patient is nonverbal and need assistance completing all ADL's. Patient is trach and peg. At time of discharge patient will return back to subacute.
--- NOTE | 2024-10-17 14:30 | PC.SS ---
SS follow up note; Patient is discharging back to Subacute today.
== END 2024-10-17 13:45 | disposition skilled nursing facility (03) | DRG 422 ==
LOC: SERX 23:49 → SERHOLD 10-17 00:53 → S2NX 10-17 03:26
PROVIDERS: Student in an Organized Health Care Education/Training Program; Admitting Provider Student in an Organized Health Care Education/Training Program; Emergency Provider Emergency Medicine; Visit Provider Student in an Organized Health Care Education/Training Program
DX: E86.0 Dehydration (principal); R65.10 Systemic inflammatory response syndrome (SIRS) of non-infectious origin without acute organ dysfunction; R50.9 Fever, unspecified; G82.50 Quadriplegia, unspecified; M32.9 Systemic lupus erythematosus, unspecified; R56.9 Unspecified convulsions; J96.11 Chronic respiratory failure with hypoxia; K21.9 Gastro-esophageal reflux disease without esophagitis; Z66 Do not resuscitate; L89.899 Pressure ulcer of other site, unspecified stage; D64.9 Anemia, unspecified; Z86.61 Personal history of infections of the central nervous system; Z93.1 Gastrostomy status; Z93.0 Tracheostomy status; Z79.899 Other long term (current) drug therapy
CPT/HCPCS: 36415; 71045; 80048; 80053; 81001; 83605; 83615; 83690; 83735; 83880; 84100; 84145; 84484; 85025; 85610; 85730; 87040; 87081; 87086; 87502; 87811; 93005; 96361; 96365; 96367; 99285; J0692; J1643; J2543; J3490; J7030; A9270

== ENCOUNTER 2024-10-22 21:35 | Inpatient (IN) | payer OTHER, SELFPAY ==
[2024-10-22 21:48] VITALS: BP 114/92; PULSE 119; RESP 28; TEMP 38.8; O2SAT 98
--- NOTE | 2024-10-22 21:54 | EKG_ITS ---
[facility] Test Date: 2024-10-22 Pat Name: STAS CASTLE Department: Room: - Gender: Male Grinder: : 1995 Requested By: Jani Medina Order Number: [id number] Reading MD: Jani Medina Measurements Intervals [place] Rate: 118 P: 49 MN: 111 QRS: 14 QRSD: 83 T: 56 QT: 298 QTc: 418 Interpretive Statements SINUS TACHYCARDIA WITH SHORT MN INTERVAL NONSPECIFIC T-WAVE ABNORMALITY ABNORMAL RHYTHM ECG Compared to ECG 09/22/2024 02:14:07 Short MN interval now present T-wave abnormality still present /store/S0/[id number]/ecg/[id number].pdf
--- NOTE | 2024-10-22 21:54 | XR_ITS ---
Examination: AP chest single view Technique one AP portable semiupright chest single view Exam date and time: 2024 10:29 PM Comparison October 16, 2024 INDICATIONS: Sepsis alert today FINDINGS: Normal heart size. No lobar pneumonia. Tracheostomy tube tip 7 cm above nahid Minimal blunting of the left lateral costophrenic angle Intact osseous structures IMPRESSION: No pneumonia or pulmonary edema
[2024-10-22 22:23] LABS: Base Excess 3 (-3-3); HCO3 25 mEq/L (20-26); Inspired Oxygen, FIO2 21 %; O2 Saturation 100 % (91-98); PCO2 31 mmHg (32.0-48.0); PO2 131 mmHg (83-108); pH, Arterial 7.52 (7.35-7.45)
[2024-10-22 22:26] LABS: Collection Type, Urine Catheter; Squamous Epithelial Cell,Urine 0 /hpf (0-5)
[2024-10-22 22:27] LABS: Lactate (Lactic Acid) 1.4 mMol/L (0.4-2.0)
--- NOTE | 2024-10-22 22:27 | PD.EDADULT ---
ED General RME/HPI General Chief complaint: Fever Stated complaint: FEVER Time Seen by Provider: 10/22/24 21:49 Arrival date/time: 10/22/24 21:35 RME / HPI RME / HPI narrative: This patient is a 29-year-old male with past medical history of cocaine induced vasculitis, trach and PEG, quadriparesis, history of seizures presented from subacute with fever of 101.8, tachycardia heart rate 120 bpm, tachypnea 24 breaths/min and soft blood pressure 114/92. Patient was saturating above 90% on 6 L with FiO2 28%. Sepsis alert was initiated. Of note, patient was here 5 days ago due to similar presentation of fever and was given Tylenol and sent back to the subacute however he had worsening tachycardia and tachypnea today. Examination revealed respiratory secretions around patient's mouth, coarse breath sounds on auscultation. PEG tube appeared clean dry and intact. He is on 6l with Fio2 28% at the facility. No seizures, or any other symptoms are reported per subacute. Vitals showed soft blood pressure, tachycardia, tachypnea and fever of 101.8. Patient was saturating above 90% on 6 L with FiO2 28%. Labs were significant for leukocytosis white count 11.3, normocytic anemia hemoglobin 11.7. Platelet count 326. ABGs reveal respiratory alkalosis pH 7.53, pCO2 31, pO2 131. Bicarb 25. Chemistry panel showed unremarkable electrolytes with kidney function stable BUN 15 and creatinine 0.6. Lactic acid was 1.4. Magnesium was 1.7. Liver enzymes unremarkable. ALP 165. Procalcitonin 0.15. Urinalysis showed pH 7.5 and clear. Flu and COVID were negative. EKG showed sinus tachycardia with short IL interval. QTc 418. Chest x-ray showed no acute pathology. Blood cultures and sputum cultures were sent. We ordered 1 L bolus of LR, breathing treatment, Zosyn and doxycycline. Ibuprofen was given for fever. Patient does have sepsis with unknown source at this point. CT chest abdominal pelvis was significant for right lobe pneumonia and air within urinary bladder. Hospitalist team was called for admission for possible sepsis likely due to acute on chronic hypoxic respiratory failure likely due to ventilator associated pneumonia. PMH: As above Home medications: Edema, dyspraxic, MiraLAX, Tylenol, albuterol, vitamin C, atorvastatin, Keppra, gabapentin, propranolol, baclofen, lactulose, lansoprazole, midodrine, olanzapine, CODE STATUS: DNR per POLST form complaint: fever,tacy and tacypnea Onset (ago): day(s) Related Data Home Medications ?Medication ?Instructions ?Recorded ?Confirmed albuterol sulfate 2.5 mg/3 mL mg 10/17/24 (0.083 %) solution for nebulization ascorbic acid (vitamin C) 500 mg 500 mg PO BID 10/17/24 10/17/24 tablet (C-500) atorvastatin 40 mg tablet 40 mg feeding tube HS 10/17/24 10/17/24 baclofen 20 mg tablet 20 mg feeding tube Q6HR 10/17/24 10/17/24 gabapentin 300 mg capsule 300 mg feeding tube TID 10/17/24 10/17/24 insulin lispro 100 unit/mL subcut 10/17/24 subcutaneous pen lactulose 10 gram/15 mL oral 10 g PO QDAY 10/17/24 10/17/24 solution lactulose 10 gram/15 mL oral 10 g feeding tube QDAY 10/17/24 10/17/24 solution (Enulose) lansoprazole 30 mg capsule,delayed 30 mg feeding tube QDAY 10/17/24 10/17/24 release levetiracetam 100 mg/mL oral 1,000 mg feeding tube BID 10/17/24 10/17/24 solution magnesium oxide 400 mg PO BID 10/17/24 10/17/24 midodrine 5 mg tablet 15 mg feeding tube Q8HR 10/17/24 10/17/24 multivitamin 1 tab PO QDAY 10/17/24 10/17/24 olanzapine 5 mg tablet 5 mg feeding tube QDAY 10/17/24 10/17/24 propranolol 10 mg tablet 10 mg feeding tube Q8H 10/17/24 10/17/24 Allergies Allergy/AdvReac Type Severity Reaction Status Date / Time NKA Allergy Uncoded 10/22/24 21:44 Review of Systems Review of Systems ROS Unobtainable: unobtainable due to mental status Past Medical History Past Medical History CARDIAC: Positive Hypercholesterolemia and Hypotension RESPIRATORY: Positive Pneumonia GASTROINTESTINAL: Positive Gastrointestinal Disorders and Gastroesophageal Reflux Disease ENDOCRINE: Positive Systemic Lupus Erythematosus Surgical History SURGICAL: Positive Tracheostomy and Gastrostomy ED Exam Narrative Physical exam: GENERAL APPEARANCE: Frail-appearing patient is nonverbal with quadriparesis and contracted extremities. Saturating 90% on 6 L with tracheostomy FiO2 28% HEENT: NC, AT. MMM. Patent Eye tracking, EOMI, clear conjunctiva, oropharynx mucus secretions NECK: Supple without lymphadenopathy. No stiffness or restricted ROM. trach tube HEART: Sinus tachycardia with regular rhythm, normal S1/S2, no m/r/g LUNGS: Tachypnea with coarse breath sounds heard on auscultation. ABDOMEN: Soft, nontender, nondistended with good bowel sounds heard. PEG tube clean dry and intact BACK: Clean pressure ulcer seen on the back covered in dressing. EXTREMITIES: Contracted extremities with quadriparesis. Dressing on left lower extremity pressure wound NEUROLOGICAL: Patient is nonverbal with quadriparesis and contracted extremities. Skin: Warm and dry without any rash. Course Quality Measures none Orders Category Date Time Status Bedside COVID-19 Antigen Test NOW Care 10/22/24 22:02 Active Bedside Influenza A&B Antigen Test NOW Care 10/22/24 22:[address] Screening NOW Care 10/22/24 23:24 Active Warehouse Technician Q4H START 00 Care 10/22/24 21:54 Active Warehouse Technician now Care 10/22/24 21:56 Active EKG (ED ONLY) *Do not use* NOW Care 10/22/24 22:09 Completed Insert IV NOW Care 10/22/24 21:51 Active Strict Intake and Output Routine Care 10/22/24 21:54 Ordered Urinary Catheter NOW Care 10/22/24 21:[address] chest abdomen pelvis w Stat Exams 10/22/24 23:24 Taken EKG (ED Only) Stat Exams 10/22/24 22:09 Ordered XR chest 1V SEPSIS PROTOCOL Stat Exams 10/22/24 21:54 Completed ABG [Arterial Blood Gas] Stat Lab 10/22/24 22:12 Completed Blood Culture (Lab) Stat Lab 10/22/24 21:45 Received CBC Stat Lab 10/22/24 21:45 Completed Comprehensive Metabolic Panel Stat Lab 10/22/24 21:45 Completed Creatine Kinase Stat Lab 10/22/24 21:45 Completed Lactate (Lactic Acid) Stat Lab 10/22/24 21:45 Completed MRSA Nasal Screen Stat Lab 10/22/24 22:51 Received Magnesium Stat Lab 10/22/24 21:45 Completed Partial Thromboplastin Time Stat Lab 10/22/24 21:45 Completed Phosphorous Stat Lab 10/22/24 21:45 Completed Procalcitonin Stat Lab 10/22/24 21:45 Completed Prothrombin Time with INR Stat Lab 10/22/24 21:45 Completed Sputum Culture and Gram Stain Stat Lab 10/22/24 22:13 Received Urinalysis Stat Lab 10/22/24 21:45 Completed Urine Culture Stat Lab 10/22/24 21:45 Received Albuterol/Ipratr Rt [place] [Duoneb Rt [place]] Med 10/22/24 22:10 Discontinued 3 ml INH X1 ONE Doxycycline Inj [Vibramycin Inj] 100 mg Med 10/22/24 22:11 Discontinued Sodium Chloride 0.9% (Pop) [NS 0.9% mini bag] 100 ml IV X1 Ibuprofen Susp [Motrin Susp] Med 10/22/24 22:05 Discontinued 400 mg GT X1 ONE Magnesium Sulfate 4 GM Ivpb [Magnesium Sulfate Ivpb] Med 10/22/24 23:24 Active 4 gm in 50 ml IV X1 Piper/Tazo 3.375 gm Premix [Zosyn] Med 10/22/24 22:11 Discontinued 3.375 gm in 50 ml IV X1 Ringers Lactated 1000 ml [Lactated Ringers] 1,000 ml Med 10/22/24 22:10 Active IV 75 mls/hr Ringers Lactated 1000 ml [Lactated Ringers] 1,000 ml Med 10/22/24 22:08 Discontinued IV 999 mls/hr Sodium Chloride Rt [place] 10% [NS Rt [place] 10%] Med 10/22/24 22:00 Discontinued 5 ml INH X1 ONE Airway suctioning ONCE RT 10/22/24 22:05 Active EKG (RT) Stat RT 10/22/24 21:54 Draft Sputum Induction PRN RT 10/22/24 22:15 Ordered Vital Signs Vital signs: Vital Signs Temperature 101.8 F H 10/22/24 21:48 Pulse Rate 119 H 10/22/24 21:48 Respiratory Rate 28 H 10/22/24 21:48 Blood Pressure 114/92 H 10/22/24 21:48 Pulse Oximetry (%) 98 10/22/24 21:48 Oxygen Delivery Method Trach Collar 10/22/24 21:48 Oxygen Flow Rate 6 10/22/24 21:48 Discharge Plan Plan Patient Disposition: Admit Acute Care w/in Hospital Prescriptions/Referrals Prescriptions/Med Rec: No Action atorvastatin 40 mg tablet 40 mg feeding tube HS baclofen 20 mg tablet 20 mg feeding tube Q6HR levetiracetam 100 mg/mL solution 1,000 mg feeding tube BID gabapentin 300 mg capsule 300 mg feeding tube TID lansoprazole 30 mg capsule,delayed release(DR/EC) 30 mg feeding tube QDAY olanzapine 5 mg tablet 5 mg feeding tube QDAY propranolol 10 mg tablet 10 mg feeding tube Q8H midodrine 5 mg tablet 15 mg feeding tube Q8HR albuterol sulfate 2.5 mg /3 mL (0.083 %) solution for nebulization ascorbic acid (vitamin C) [C-500] 500 mg tablet 500 mg PO BID lactulose 10 gram/15 mL solution 10 g PO QDAY multivitamin Tablet 1 tab PO QDAY magnesium oxide 400 mg magnesium tablet 400 mg PO BID insulin lispro 100 unit/mL insulin pen subcut lactulose [Enulose] 10 gram/15 mL solution 10 g feeding tube QDAY Referrals: No Primary/Family,Physician [Primary Care Provider] - In 1 week Problem List Clinical Impression: Sepsis, HABP (hospital-acquired bacterial pneumonia) Patient/Caregiver Discharge Instructions Print Language: Palauan Stand Alone Forms: [employer] Info., Patient Portal Info Letter MDM Medication Administration(s) Medication Administration History Lactated Ringer's (Lactated Ringers) 1,000 mls @ 75 mls/hr IV .[id number] RADHA Stop: 11/21/24 22:09 Last Admin: 10/23/24 00:14 Dose: 75 mls/hr Documented By: GRISELDA Magnesium Sulfate (Magnesium Sulfate Ivpb) 4 gm in 50 mls @ 12.5 mls/hr IV X1 ONE Stop: 10/23/24 03:23 Last Admin: 10/23/24 00:51 Dose: 12.5 mls/hr Documented By: GRISELDA Discontinued Medications Albuterol/Ipratropium (Albuterol/Ipratropium (Duoneb) Rt [place] 3 Ml Nebu) 3 ml INH X1 ONE Stop: 10/22/24 22:11 Last Admin: 10/22/24 22:34 Dose: 3 ml Documented By: MARGARET Lactated Ringer's (Lactated Ringers) 1,000 mls @ 999 mls/hr IV .Q1H1M ONE Stop: 10/22/24 23:08 Last Infusion: 10/23/24 00:14 Dose: Infused Documented By: Admin: 10/22/24 23:05 Dose: 999 mls/hr Documented By: GRISELDA Piperacillin/Tazobactam/Dextrose (Zosyn) 3.375 gm in 50 mls @ 100 mls/hr IV X1 ONE Stop: 10/22/24 22:40 Last Infusion: 10/22/24 23:06 Dose: Infused Documented By: Admin: 10/22/24 22:35 Dose: 100 mls/hr Documented By: GRISELDA Doxycycline Hyclate 100 mg/ (Sodium Chloride) 100 mls @ 100 mls/hr IV X1 ONE Stop: 10/22/24 23:10 Last Infusion: 10/23/24 00:54 Dose: Infused Documented By: Admin: 10/22/24 23:05 Dose: 100 mls/hr Documented By: GRISELDA Ibuprofen (Ibuprofen Susp 100 Mg/5 Ml Udc) 400 mg GT X1 ONE Stop: 10/22/24 22:06 Last Admin: 10/22/24 22:39 Dose: 400 mg Documented By: GRISELDA Sodium Chloride (Sodium Chloride Rt 10% 15 Ml Nebu) 5 ml INH X1 ONE Stop: 10/22/24 22:01 Last Admin: 10/22/24 22:35 Dose: Not Given Documented By: MARGARET Non-Admin Reason: Other, see note Comments: trach suctioned sent to lab
[2024-10-22 22:29] LABS: Allen Test Performed/OK; Puncture Site Right Radial
[2024-10-22 22:30] LABS: Basophils % (Auto) 0 % (0-2.5); Bilirubin,Urine Negative (Negative); Blood,Urine Negative (Negative); Clarity,Urine Clear (Clear/Hazy); Color,Urine Lt-Yellow (Lt Yel-Yel); Eosinophils % (Auto) 0 % (0-10); Glucose, Urine Negative (Negative); Hematocrit 34.9 % (41.0-53.0); Hemoglobin 11.7 g/dL (13.5-16.0); Immature Granulocytes % (Auto) 0 % (0-0); Immature Granulocytes Auto 0.04 Thou/mm3 (0.00-0.00); Ketones,Urine Negative (Negative); Leukocyte Esterase,Urine Negative (Negative); Lymphocytes # (Auto) 1.2 Thou/mm3 (1.0-4.8); Lymphocytes % (Auto) 10 % (10-50); Mean Corpuscular HGB Conc 33.5 g/dl (31.0-37.0); Mean Corpuscular Hemoglobin 29.3 pg (25.0-35.0); Mean Corpuscular Volume 87 fL (80-100); Monocytes # (Auto) 1.2 Thou/mm3 (0.0-0.8); Monocytes % (Auto) 10 % (0-12); Neutrophils # (Auto) 8.9 Thou/mm3 (1.8-7.7); Neutrophils % (Auto) 79 % (37-80); Nitrite,Urine Negative (Negative); Nucleated Red Blood Cell % 0 /100 WBC (0); PH,Urine 7.5 (5.0-7.0); Platelet Count 326 Thou/mm3 (140-440); Protein,Urine Negative (Neg - Trace); RBC,Urine 2 /hpf (0-3); RDW Standard Deviation 47.7 fL (35.1-43.9); Specific Gravity,Urine 1.014 (1.001-1.035); Urobilinogen,Urine Negative mg/dL (0.0-1.0); WBC,Urine 1 /hpf (0-5); White Blood Count 11.3 Thou/mm3 (3.8-10.6)
[2024-10-22] MEDS: ALBUTEROL/IPRATROPIUM (Duoneb) RT SOL 3 ML NEBU INH (22:34)
[2024-10-22] MEDS: PIPER/TAZO 3.375 GM PREMIX 3.375 GM/50 ML BAG IV (22:35)
[2024-10-22 22:37] VITALS: PULSE 120; RESP 24; O2SAT 99
[2024-10-22 22:39] VITALS: TEMP 38.8
[2024-10-22] MEDS: IBUPROFEN SUSP 100 MG/5 ML UDC 400 MG GT (22:39)
[2024-10-22 22:51] LABS: Alanine Aminotransferase 29 U/L (10-49); Albumin, Serum 4.4 gm/dL (3.5-5.0); Albumin/Globulin Ratio 1.4 (1.2-2.2); Alkaline Phosphatase 165 U/L (46-116); Anion Gap 11 (7-16); Aspartate Amino Transferase 29 U/L (0-34); BUN/Creatinine Ratio 25 Ratio (12-20); Bilirubin,Total 0.2 mg/dL (0.3-1.2); Blood Urea Nitrogen 15 mg/dL (9-23); Calcium 9.9 mg/dL (8.3-10.6); Calcium (Corrected) 9.9 mg/dL (8.5-10.1); Carbon Dioxide 25.4 mMol/L (20.0-31.0); Chloride 100 mMol/L (98-107); Creatinine (Component) 0.6 mg/dL (0.6-1.3); Globulin 3.2 gm/dL (2.3-3.5); Glucose 85 mg/dL (74-106); Magnesium 1.7 mg/dL (1.6-2.6); Osmolality,Calculated 271 (275-295); Phosphorous 3.8 mg/dL (2.4-5.1); Potassium 4.7 mMol/L (3.4-5.1); Sodium 136 mMol/L (136-145); Total Protein 7.6 gm/dL (5.7-8.2); eGFR > 60 See Note
[2024-10-22 22:56] LABS: Procalcitonin 0.15 ng/ml (0.0-0.49)
[2024-10-22] MEDS: DOXYCYCLINE INJ 100 MG in SODIUM CHLORIDE 0.9% (POP) 100 ML IV (23:05)
[2024-10-22] MEDS: RINGERS LACTATED 1000 ML 1,000 ML 999 ML IV (23:05)
[2024-10-22 23:17] VITALS: BP 106/70; PULSE 100; RESP 23; TEMP 37.5; O2SAT 100
--- NOTE | 2024-10-22 23:24 | XR_ITS ---
Examination: CT chest with intravenous contrast CT abdomen with intravenous contrast CT pelvis with intravenous contrast 2-D coronal and sagittal reconstructions Time of exam: October 22, 2024 1154 CTDI: vol (mGy) : 6.8 DLP: (mGycm): 466 Technique: Multiple axial images of the chest, abdomen and pelvis with intravenous contrast, 3.0 mm slice thickness. Images obtained post intravenous injection Isovue 370 60 cc. 2-D sagittal and coronal reconstructions. Low dose protocols were performed. One or more of the following dose reduction techniques were used; automated exposure control, adjustment of the mA and/or KV according to patient size, use of iterative reconstruction technique. Findings: Tracheal tube tip satisfactory position No enlargement thoracic aorta No pulmonary artery filling defects No paratracheal tracheobronchial or bronchopulmonary adenopathy Mild pneumonia right base No focal liver or splenic lesions No gallstones Gastrostomy tube satisfactory position Aorta normal size No hydronephrosis No bowel obstruction No pericecal inflammatory change Urinary Langston catheter with air in the urinary bladder No prostatomegaly IMPRESSION: Mild right base pneumonia
[2024-10-22 23:47] LABS: INR 1.3 (0.9-1.3); Partial Thromboplastin Time 31.1 Seconds (22.0-36.0); Prothrombin Time 13.6 Seconds (9.0-12.2)
[2024-10-23] VITALS (11 sets, daily range): BP systolic 106–149; BP diastolic 64–94; PULSE 95–119; RESP 18–27; TEMP 36.7–37.5; O2SAT 99–100; BMI 14.4
--- NOTE | 2024-10-23 00:03 | PC.RT ---
pt taken to CT without any complications 6L 28% blow by hr 98, spo2 99% RR18,
[2024-10-23] MEDS: RINGERS LACTATED 1000 ML 1,000 ML 75 ML IV (00:14)
[2024-10-23 00:18] LABS: Creatine Kinase 265 U/L (34-171)
[2024-10-23] MEDS: Magnesium Sulfate 4 GM Ivpb 4 GM/50 ML BAG IV (00:51)
--- NOTE | 2024-10-23 01:39 | PRELIM_ITS ---
CT scan of the chest, abdomen and pelvis with intravenous contrast (axial sections with sagittal and coronal reformats) October 22, 2024 at 2351 hours Clinical History: Sepsis unknown source. Comparison: No prior study is available for comparison. Findings: Right lower lobe consolidation. There is no pleural effusion or pneumothorax. The aorta is unremarkable without evidence of dissection or aneurysm. No evidence of mediastinal mass or lymphadenopathy. There is no pericardial effusion. The liver, gallbladder, spleen, pancreas, adrenals and kidneys are unremarkable. No evidence of bowel obstruction. No evidence of appendicitis. Langston catheter in place. Air within the urinary bladder.There is no free fluid or air. The osseous structures are unremarkable. Endotracheal tube in place. Impression: Right lower lobe pneumonia. Air within the urinary bladder, possibly postprocedural or possibly due to cystitis. Report Electronically Signed By: Juan Forrest 10/23/2024 1:38:38 AM [EST]
--- NOTE | 2024-10-23 02:56 | PD.RESHP ---
Documentation for date of: 10/23/24 HPI History of Present Illness History of present illness: Meena Carmona is 29 yr male with PMH of cocaine induced vasculitis, trach and PEG, quadriparesis, history of seizures who has presented to ED from subacute due to fever of 101.8, tachycardia heart rate 120 bpm, tachypnea 28, and blood pressure 114/92. History was obtained through chart review. Patient was saturating above 90% on 6 L with FiO2 28%. Sepsis alert was initiated. Patient was recently discharged on 10/17 due to similar symptoms. He was sent back to subacute after treatment with antibiotics. Examination revealed respiratory secretions around patient's mouth, coarse breath sounds on auscultation. PEG tube appeared clean dry and intact. He is on 6l with Fio2 28% at the facility. No seizures, or any other symptoms are reported per subacute. In ED, BP 114/92, HR 120, RR 28, temp 101.8. CBC significant for leukocytosis WBC 11.3, normocytic anemia hemoglobin 11.7. ABGs reveal respiratory alkalosis pH 7.53, pCO2 31, pO2 131. Bicarb 25. BUN 15, Cr 0.6, LA 1.4, CK 265, UA negative for UTI. Flu and COVID were negative. CT A/P showed right LL pneumonia. EKG was sinus tachy with rate 118, Qtc 418. He was given 1 L bolus of LR, breathing treatment, Zosyn and doxycycline, and Ibuprofen while in ED. Patient will be admitted for sepsis 2/2 healthcare associated pneumonia. PMH: As above Home medications: Edema, dyspraxic, MiraLAX, Tylenol, albuterol, vitamin C, atorvastatin, Keppra, gabapentin, propranolol, baclofen, lactulose, lansoprazole, midodrine, olanzapine, SH: PEG tube, tracheostomy Allergies: NKDA Review of Systems Review of Systems ROS Unobtainable: unobtainable due to medical condition Exam Vital Signs Temp Pulse Resp BP Pulse Ox O2 Del Method O2 Flow Rate 98.6 F 98 18 121/80 99 Trach Collar 6 10/23/24 02:00 10/23/24 02:00 10/23/24 02:00 10/23/24 02:00 10/23/24 02:00 10/23/24 02:00 10/23/24 02:00 FiO2 28 10/23/24 02:00 Narrative Exam General: Frail-appearing patient is nonverbal with quadriparesis and contracted extremities. Saturating 90% on 6 L with tracheostomy FiO2 28% HEENT: NC, AT. MMM. Patent Eye tracking, EOMI, clear conjunctiva, oropharynx mucus secretions, trach tube HEART: Sinus tachycardia with regular rhythm, normal S1/S2, no m/r/g LUNGS: coarse breath sounds ABDOMEN: Soft, nontender, nondistended with good bowel sounds heard. PEG tube clean dry and intact BACK: Clean pressure ulcer seen on the back covered in dressing. EXTREMITIES: Contracted extremities with quadriparesis. Dressing on left lower extremity pressure wound NEUROLOGICAL: Patient is nonverbal with quadriparesis and contracted extremities. Skin: Warm and dry without any rash. Results: Labs 10/22/24 21:45 10/22/24 21:45 Labs: Short CBC 10/22/24 Range/Units 21:45 WBC 11.3 H (3.8-10.6) Thou/mm3 Hgb 11.7 L (13.5-16.0) g/dL Hct 34.9 L (41.0-53.0) % Plt Count 326 (140-440) Thou/mm3 BMP 10/22/24 21:45 Sodium 136 Potassium 4.7 Chloride 100 Carbon Dioxide 25.4 BUN 15 Creatinine 0.6 Glucose 85 Calcium 9.9 Cardiac Enzymes 10/22/24 Range/Units 21:45 Total Creatine Kinase 265 H (34-171) U/L Liver Function 10/22/24 Range/Units 21:45 Total Bilirubin 0.2 L (0.3-1.2) mg/dL AST 29 (0-34) U/L ALT 29 (10-49) U/L Alkaline Phosphatase 165 H (46-116) U/L Albumin 4.4 (3.5-5.0) gm/dL Urine 10/22/24 Range/Units 21:45 Urine Color Lt-Yellow (Lt Yel-Yel) Urine Clarity Clear (Clear/Hazy) Urine pH 7.5 H (5.0-7.0) Ur Specific [place] 1.014 (1.001-1.035) Urine Protein Negative (Neg - Trace) Urine Glucose (UA) Negative (Negative) ABG Interpretation ABG results: 10/22/24 22:12 ABG pH 7.52 H ABG pCO2 31 L ABG pO2 131 H ABG HCO3 25 ABG O2 Saturation 100 H ABG Base Excess 3 Quality Measures Quality Measures none Medications Home Medications and Allergies Home Medications ?Medication ?Instructions ?Recorded ?Confirmed ?Type albuterol sulfate 2.5 mg/3 mL mg 10/17/24 History (0.083 %) solution for nebulization ascorbic acid (vitamin C) 500 mg 500 mg PO BID 10/17/24 10/17/24 History tablet (C-500) atorvastatin 40 mg tablet 40 mg feeding tube HS 10/17/24 10/17/24 History baclofen 20 mg tablet 20 mg feeding tube Q6HR 10/17/24 10/17/24 History gabapentin 300 mg capsule 300 mg feeding tube TID 10/17/24 10/17/24 History insulin lispro 100 unit/mL subcut 10/17/24 History subcutaneous pen lactulose 10 gram/15 mL oral 10 g PO QDAY 10/17/24 10/17/24 History solution lactulose 10 gram/15 mL oral 10 g feeding tube QDAY 10/17/24 10/17/24 History solution (Enulose) lansoprazole 30 mg capsule,delayed 30 mg feeding tube QDAY 10/17/24 10/17/24 History release levetiracetam 100 mg/mL oral 1,000 mg feeding tube BID 10/17/24 10/17/24 History solution magnesium oxide 400 mg PO BID 10/17/24 10/17/24 History midodrine 5 mg tablet 15 mg feeding tube Q8HR 10/17/24 10/17/24 History multivitamin 1 tab PO QDAY 10/17/24 10/17/24 History olanzapine 5 mg tablet 5 mg feeding tube QDAY 10/17/24 10/17/24 History propranolol 10 mg tablet 10 mg feeding tube Q8H 10/17/24 10/17/24 History Allergies Allergy/AdvReac Type Severity Reaction Status Date / Time NKA Allergy Uncoded 10/22/24 21:44 Visit Medications Acetaminophen (Acetaminophen Supp 650 Mg Supp) 650 mg MT Q6HR PRN PRN Reason: [id number] Stop: 11/22/24 01:58 Enoxaparin Sodium (Enoxaparin Sod Inj 40 Mg/0.4 Ml Syringe) 40 mg SC QDAY RADHA Stop: 11/06/24 08:59 Lactated Ringer's (Lactated Ringers) 1,000 mls @ 75 mls/hr IV .[id number] RADHA Stop: 11/21/24 22:09 Last Admin: 10/23/24 00:14 Dose: 75 mls/hr Magnesium Sulfate (Magnesium Sulfate Ivpb) 4 gm in 50 mls @ 12.5 mls/hr IV X1 ONE Stop: 10/23/24 03:23 Last Admin: 10/23/24 00:51 Dose: 12.5 mls/hr Piperacillin/Tazobactam/Dextrose (Zosyn) 3.375 gm in 50 mls @ 100 mls/hr IV Q6HR RADHA Stop: 10/30/24 02:04 Levofloxacin/Dextrose (Levaquin Ivpb) 750 mg in 150 mls @ 100 mls/hr IV QDAY [facility] Stop: 10/30/24 08:59 Levofloxacin/Dextrose (Levaquin Ivpb) 750 mg in 150 mls @ 100 mls/hr IV X1 ONE Stop: 10/23/24 03:44 Vancomycin/Sodium Chloride (Vancomycin/Ns 1 Gm Ivpb) 200 mls @ 120 mls/hr IV X1 ONE Stop: 10/23/24 03:54 Levetiracetam (Levetiracetam Liqd 500 Mg/5 Ml Udc) 1,000 mg GT BID [facility] Stop: 11/22/24 08:59 Pharmacy Consult (Vancomycin Pharmacy To Dose 1 Each Each) 1 each IV QDAY RADHA Stop: 11/22/24 02:04 Discontinued Medications Albuterol/Ipratropium (Albuterol/Ipratropium (Duoneb) Rt [place] 3 Ml Nebu) 3 ml INH X1 ONE Stop: 10/22/24 22:11 Last Admin: 10/22/24 22:34 Dose: 3 ml Lactated Ringer's (Lactated Ringers) 1,000 mls @ 999 mls/hr IV .[id number] ONE Stop: 10/22/24 23:08 Last Infusion: 10/23/24 00:14 Dose: Infused Piperacillin/Tazobactam/Dextrose (Zosyn) 3.375 gm in 50 mls @ 100 mls/hr IV X1 ONE Stop: 10/22/24 22:40 Last Infusion: 05/05/25 23:06 Dose: Infused Doxycycline Hyclate 100 mg/ (Sodium Chloride) 100 mls @ 100 mls/hr IV X1 ONE Stop: 10/22/24 23:10 Last Infusion: 10/23/24 00:54 Dose: Infused Sodium Chloride (Ns) 1,000 mls @ 75 mls/hr IV .[id number] RADHA Stop: 11/22/24 01:59 Ibuprofen (Ibuprofen Susp 100 Mg/5 Ml Udc) 400 mg GT X1 ONE Stop: 10/22/24 22:06 Last Admin: 10/22/24 22:39 Dose: 400 mg Sodium Chloride (Sodium Chloride Rt 10% 15 Ml Nebu) 5 ml INH X1 ONE Stop: 10/22/24 22:01 Last Admin: 10/22/24 22:35 Dose: Not Given Assessment & Plan Plan Meena Carmona is 29 yr male with PMH of cocaine induced vasculitis, trach and PEG, quadriparesis, history of seizures who has presented to ED from subacute due to fever of 101.8, tachycardia heart rate 120 bpm, tachypnea 28, and blood pressure 114/92. History was obtained through chart review. Patient will be admitted for sepsis 2/2 healthcare associated pneumonia. #Sepsis 2/2 HAP from subacute due to fever of 101.8, tachycardia heart rate 120 bpm, tachypnea 28, and blood pressure 114/92. WBC 11.3. Was recently discharged on 10/17. He meets SIRS 4/4. Will treat with broad spectrum coverage for MRSA and pseudomonas. COVID, flu negative. -MRSA nares pending -sputum/blood/urine cultures pending -Levofloxacin 750 mg daily -Vancomycin -Zosyn 3.375 QID -Legionella antigen pending #Normocytic anemia -Stable -Follow up outpatient #Hx seizure disorder -Keppra 1000 mg BID resumed -Olanzapine 5mg daily #Hx PEG tube dependence -Ascorbic acide 500mg BID -Atorvastatin 40mg HS #Hx quadriplegia -Gabapentin 300mg TID -Baclofen 20mg q6hr #Hx GERD -Pantoprazole 40 mg daily #Hx hypotension -Holding midodrine 15mg TID Health maintenance: Dispo: tele, sepsis pna FEN: PEG feeds DVT prophylaxis: Lovenox CODE STATUS: DNR The patient's management plan was discussed with my attending physician Dr. Fields. Irene Vegas, PGY-1 Attending Provider Attestation/Addendum Pt was evaluated and plan formulated together with the housestaff team. I have reviewed the residents note above and agree with most of its content. Please refer to the residents note for additional details.
[2024-10-23] MEDS: PIPER/TAZO 3.375 GM PREMIX 3.375 GM/50 ML BAG IV ×4 (03:07→17:10)
[2024-10-23] MEDS: LEVOFLOXACIN/D5W 750MG IVPB 750 MG/150 ML BAG 100 MG IV (03:57)
[2024-10-23 05:43] LABS: Basophils % (Auto) 0 % (0-2.5); Eosinophils # (Auto) 0.1 Thou/mm3 (0.0-0.5); Eosinophils % (Auto) 1 % (0-10); Hematocrit 30.4 % (41.0-53.0); Immature Granulocytes % (Auto) 0 % (0-0); Immature Granulocytes Auto 0.03 Thou/mm3 (0.00-0.00); Lymphocytes # (Auto) 1.5 Thou/mm3 (1.0-4.8); Lymphocytes % (Auto) 15 % (10-50); Mean Corpuscular HGB Conc 32.9 g/dl (31.0-37.0); Mean Corpuscular Hemoglobin 29.8 pg (25.0-35.0); Mean Corpuscular Volume 91 fL (80-100); Monocytes # (Auto) 1.5 Thou/mm3 (0.0-0.8); Monocytes % (Auto) 14 % (0-12); Neutrophils # (Auto) 7.4 Thou/mm3 (1.8-7.7); Neutrophils % (Auto) 70 % (37-80); Nucleated Red Blood Cell % 0 /100 WBC (0); Platelet Count 252 Thou/mm3 (140-440); RDW Standard Deviation 49.3 fL (35.1-43.9); Red Blood Count 3.36 Miln/mm3 (4.50-5.90); White Blood Count 10.4 Thou/mm3 (3.8-10.6)
[2024-10-23 06:14] LABS: Anion Gap 10 (7-16); BUN/Creatinine Ratio 18 Ratio (12-20); Blood Urea Nitrogen 11 mg/dL (9-23); Calcium 9.3 mg/dL (8.3-10.6); Carbon Dioxide 24.5 mMol/L (20.0-31.0); Chloride 102 mMol/L (98-107); Creatinine (Component) 0.6 mg/dL (0.6-1.3); Glucose 91 mg/dL (74-106); Osmolality,Calculated 271 (275-295); Potassium 3.8 mMol/L (3.4-5.1); Sodium 136 mMol/L (136-145); eGFR > 60 See Note
[2024-10-23] MEDS: ENOXAPARIN SOD INJ 40 MG/0.4 ML SYRINGE SC (08:44)
[2024-10-23] MEDS: VANCOMYCIN/NS 1 GM IVPB 200 ML IV (08:44)
[2024-10-23] MEDS: levETIRAcetam LIQD 500 MG/5 ML UDC 1000 MG GT ×2 (08:44→21:11)
--- NOTE | 2024-10-23 09:08 | PD.RESPRO ---
Documentation for date of: 10/23/24 Subjective Subjective Interval history: No acute overnight events. Seen and examined at bedside. Vital signs improved but heart rate still elevated at 108, afebrile, and RR 20. CBC improved to now wnl, hemoglobin stable, and chem panel largely unarmarkable though mildly elevated total CK noted. Otherwise, antibiotics de-escalated to just zosyn at this time (previously on levofloxacin and vancomycin as well). Will continue to follow-up with cultures. Exam Vital Signs Temp Pulse Resp BP Pulse Ox O2 Del Method O2 Flow Rate 98.7 F 115 H 27 H 149/94 H 100 Trach Collar 6 10/23/24 06:51 10/23/24 06:51 10/23/24 06:51 10/23/24 06:51 10/23/24 06:51 10/23/24 06:51 10/23/24 06:51 FiO2 28 10/23/24 06:51 Narrative Exam General: awake, not alert or orientated, nonverbal, quadriparesis, no acute distress HEENT: NC/AT, mucous membranes moist, bilateral sclera anicteric Cardiovascular: regular rate and rhythm, S1/S2 present, no murmurs appreciated Pulmonary: trach with secretions leading to rhonchi from tube but no rhonchi auscultated in lungs Abdominal: PEG tube C/D/I, soft, non-tender, non-distended, no rebound/guarding, normal bowel sounds present Musculoskeletal: normal ROM, no peripheral edema Skin: warm and dry, intact, no rashes Objective Labs 10/23/24 04:44 10/23/24 04:44 Labs: Laboratory Results - last 24 hr 10/22/24 10/22/24 10/23/24 21:45 22:12 04:44 WBC 11.3 H 10.4 RBC 4.00 L 3.36 L Hgb 11.7 L 10.0 L Hct 34.9 L 30.4 L MCV 87 91 MCH 29.3 29.8 MCHC 33.5 32.9 RDW Std Deviation 47.7 H 49.3 H Plt Count 326 252 D Neut % (Auto) 79 70 Lymph % (Auto) 10 15 [place] % (Auto) 10 14 H Eos % (Auto) 0 1 Baso % (Auto) 0 0 Neut # (Auto) 8.9 H 7.4 Lymph # (Auto) 1.2 1.5 [place] # (Auto) 1.2 H 1.5 H Eos # (Auto) 0.0 0.1 Baso # (Auto) 0.0 0.0 Immature Gran # (Auto) 0.04 H 0.03 H Absolute Nucleated RBC 0.00 0.00 Immature Gran % 0 0 Nucleated RBC % 0 0 PT 13.6 H INR 1.3 APTT 31.1 Puncture Site Right Radial ABG pH 7.52 H ABG pCO2 31 L ABG pO2 131 H ABG HCO3 25 ABG O2 Saturation 100 H ABG Base Excess 3 FiO2 21 Sodium 136 136 Potassium 4.7 3.8 D Chloride 100 102 Carbon Dioxide 25.4 24.5 Anion Gap 11 10 BUN 15 11 Creatinine 0.6 0.6 Estim Creat Clear Calc Not Performed. Not Performed. eGFR > 60 > 60 BUN/Creatinine Ratio 25 H 18 Glucose 85 91 Calculated Osmolality 271 L 271 L Lactic Acid 1.4 Calcium 9.9 9.3 Corrected Calcium 9.9 Phosphorus 3.8 Magnesium 1.7 Total Bilirubin 0.2 L AST 29 ALT 29 Alkaline Phosphatase 165 H Total Creatine Kinase 265 H Total Protein 7.6 Albumin 4.4 Globulin 3.2 Albumin/Globulin Ratio 1.4 Procalcitonin 0.15 Ur Collection Type Catheter Urine Color Lt-Yellow Urine Clarity Clear Urine pH 7.5 H Ur Specific [place] 1.014 Urine Protein Negative Urine Glucose (UA) Negative Urine Ketones Negative Urine Blood Negative Urine Nitrite Negative Urine Bilirubin Negative Urine Urobilinogen (Auto) Negative Ur Leukocyte Esterase Negative Urine RBC 2 Urine WBC 1 Ur Squamous Epith Cells 0 Urine Bacteria None ABG Interpretation ABG results: 10/22/24 22:12 ABG pH 7.52 H ABG pCO2 31 L ABG pO2 131 H ABG HCO3 25 ABG O2 Saturation 100 H ABG Base Excess 3 Quality Measures Quality Measures none Assessment & Plan Assessment Current Active Medications: Generic Name Dose Route Start Last Admin Trade Name Freq PRN Reason Stop Dose Admin Acetaminophen 650 mg 10/23/24 01:59 Acetaminophen Supp 650 Mg Supp IN 11/22/24 01:58 Q6HR PRN [id number] Dextrose 25 ml 10/23/24 03:28 Dextrose 50%-Water Inj 50 Ml Syringe IV 11/22/24 03:27 Q15MIN PRN BG 50-70 responsive npo pt Dextrose 50 ml 10/23/24 03:28 Dextrose 50%-Water Inj 50 Ml Syringe IV 11/22/24 03:27 Q15MIN PRN BG <50 OR BG <70 & pt unresponsive Enoxaparin Sodium 40 mg 10/23/24 09:00 10/23/24 08:44 Enoxaparin Sod Inj 40 Mg/0.4 Ml Syringe SC 11/06/24 08:59 40 mg QDAY RADHA Administration Glucagon 1 mg 10/23/24 03:28 Glucagon Inj 1 Mg Vial IM Q15MIN PRN BG <70, and no IV access Lactated Ringer's 1,000 mls @ 75 mls/hr 10/22/24 22:10 10/23/24 00:14 Lactated Ringers IV 11/21/24 22:09 75 mls/hr .[id number] RADHA Administration Piperacillin/Tazobactam/Dextrose 3.375 gm in 50 mls @ 100 mls/hr 10/23/24 02:05 10/23/24 06:19 Zosyn IV 10/30/24 02:04 100 mls/hr Q6HR RADHA Administration Levofloxacin/Dextrose 750 mg in 150 mls @ 100 mls/hr 10/24/24 09:00 Levaquin Ivpb IV 10/31/24 08:59 QDAY RADHA Vancomycin/Sodium Chloride 200 mls @ 120 mls/hr 10/23/24 08:00 10/23/24 08:44 Vancomycin/Ns 1 Gm Ivpb IV 10/23/24 09:39 120 mls/hr X1 ONE Administration Levetiracetam 1,000 mg 10/23/24 09:00 10/23/24 08:44 Levetiracetam Liqd 500 Mg/5 Ml Udc GT 11/22/24 08:59 1,000 mg BID RADHA Administration Pharmacy Consult 1 each 10/23/24 02:05 Vancomycin Pharmacy To Dose 1 Each Each IV 11/22/24 02:04 QDAY PRN PROTOCOL Plan Meena Carmona is a 29 year-old male with a past medical history of of cocaine induced vasculitis, trach and PEG, quadriparesis, history of seizures who has presented to ED from subacute due to fever of 101.8, tachycardia heart rate 120 bpm, tachypnea 28, and blood pressure 114/92. Admitted for sepsis 2/2 healthcare associated pneumonia. #? Hospital-acquired pneumonia Comes from subacute due to fever of 101.8, heart rate 120 bpm, tachypnea 28, and blood pressure 114/92. WBC mildly elevated at 11.3. Recently discharged on 10/17. COVID, flu negative. MRSA nares previously negative as of 1 week ago so will stop vancomycin. Levofloxacin and vancomycin discontinued on 10/23. ? Zosyn 3.375 g IV every 6 hours (10/23-) ? Sputum culture 10/22: Pending ? Blood culture 10/22: Pending ? Urine culture 10/22: Pending #Hx seizure disorder ? Keppra 1000 mg BID resumed #Agitation ? Olanzapine 5 mg daily #Hx PEG tube dependence ? Ascorbic acid 500 mg BID ? Atorvastatin 40 mg HS #Hx quadriplegia ? Gabapentin 300 mg TID ? Baclofen 20 mg q6hr #Hx GERD ? Pantoprazole 40 mg daily #Hx hypotension ? Holding midodrine 15 mg TID Hospital management: Disposition: pending culture results and sensitivities Diet: TF Jevity 1.2 at 65 mL/h for 24 hours via G-tube by pump. 30 mL/h water flush. Lines: PIV DVT prophylaxis: enoxaparin SC daily CODE STATUS: DNR ----- Plan discussed with attending physician Dr. Carlos Vergara MD PGY-1 Internal Medicine Attending Provider Attestation/Addendum I reviewed labs, imaging, EKG, home medications and prior available records. Face to face evaluation was performed by me. I have personally examined the patient and discussed assessment and plan with the IM team. I reviewed the resident note and agree with the plan with exceptions as below. Cocaine induced vasculitis Chronic encephalopathy Chronic hypoxic respiratory failure status post tracheostomy Status post PEG tube placement Acute febrile illness Right lower lobe pneumonia Seizure disorder Switch antibiotic to IV Zosyn only He has a recent negative MRSA screening test Follow-up blood and sputum cultures Continue oxygen via tracheostomy Tylenol as needed for fevers Resume home seizure medications
--- NOTE | 2024-10-23 10:52 | PC.DIETICIAN ---
Dietitian recommendation: When medically appropriate, resume usual TF: Jevity 1.2 @ 65ml/hr x24hrs via g-tube by pump to provide: 1560 ml total vol, 1872kcal, 86g protein. Give 30ml/hr water flush for hydration or per Thank you
[2024-10-23] MEDS: DEXTROSE 50%-WATER INJ 50 ML SYRINGE 25 ML IV (11:33)
--- NOTE | 2024-10-23 11:41 | PC.SS ---
Meena Carmona is a 29-year-old male admitted to [place] for PNA. SS conducted over the phone contact with pt mother Sara Carmona [phone]. Sara valentni pt is a resident of [facility], has been admitted since September and she wishes for him to return. Pt is bedbound at baseline, trach and pegged. Pts medical DM is his mother Sara Carmona. SS will remain available for any additional needs or concerns.
--- NOTE | 2024-10-23 14:46 | PC.SS ---
Rounding: Pending cultures, on IV ABX
[2024-10-23] MEDS: BACLOFEN 10 MG TABLET 20 MG GT (17:10)
[2024-10-23] MEDS: BALSAM PERU/CASTOR OIL (Venelex) 60 GM TUBE TOP (21:09)
[2024-10-23] MEDS: GABAPENTIN 300 MG CAPSULE GT (21:09)
[2024-10-23] MEDS: MAGNESIUM OXIDE 400 MG TABLET GT (21:09)
[2024-10-23] MEDS: ASCORBIC ACID 250 MG TABLET 500 MG GT (21:09)
[2024-10-23] MEDS: ATORVASTATIN CALCIUM 20 MG TABLET 40 MG GT (21:11)
[2024-10-24] VITALS (14 sets, daily range): BP systolic 106–130; BP diastolic 77–96; PULSE 107–147; RESP 13–31; TEMP 36.2–37.9; O2SAT 96–100
[2024-10-24] MEDS: PIPER/TAZO 3.375 GM PREMIX 3.375 GM/50 ML BAG IV ×5 (00:07→23:24)
[2024-10-24] MEDS: BACLOFEN 10 MG TABLET 20 MG GT ×5 (00:07→23:24)
--- NOTE | 2024-10-24 02:15 | PC.NURSE ---
dr lowery notified of pts HR sustaining in the mid 120's. No pt complaints at this time.
[2024-10-24] MEDS: ACETAMINOPHEN SUPP 650 MG SUPP PR (02:48)
[2024-10-24] MEDS: RINGERS LACTATED 500 ML 500 ML 250 ML IV (02:49)
[2024-10-24 05:52] LABS: Basophils % (Auto) 0 % (0-2.5); Eosinophils % (Auto) 0 % (0-10); Hematocrit 29.3 % (41.0-53.0); Hemoglobin 9.8 g/dL (13.5-16.0); Immature Granulocytes % (Auto) 0 % (0-0); Immature Granulocytes Auto 0.03 Thou/mm3 (0.00-0.00); Lymphocytes % (Auto) 9 % (10-50); Mean Corpuscular HGB Conc 33.4 g/dl (31.0-37.0); Mean Corpuscular Hemoglobin 29.3 pg (25.0-35.0); Mean Corpuscular Volume 88 fL (80-100); Monocytes # (Auto) 1.3 Thou/mm3 (0.0-0.8); Monocytes % (Auto) 12 % (0-12); Neutrophils # (Auto) 8.1 Thou/mm3 (1.8-7.7); Neutrophils % (Auto) 78 % (37-80); Nucleated Red Blood Cell % 0 /100 WBC (0); Platelet Count 258 Thou/mm3 (140-440); RDW Standard Deviation 48.3 fL (35.1-43.9); Red Blood Count 3.34 Miln/mm3 (4.50-5.90); White Blood Count 10.3 Thou/mm3 (3.8-10.6)
--- NOTE | 2024-10-24 06:11 | XR_ITS ---
Examination: AP chest single view Technique one AP portable semiupright chest single view Exam date and time: October 24, 2024 0624 hours INDICATIONS: Tachypnea today FINDINGS: Normal heart size Tracheostomy tube tip 5.2 cm above nahid No pneumonia or pulmonary edema IMPRESSION: No pneumonia or pulmonary edema
[2024-10-24] MEDS: GABAPENTIN 300 MG CAPSULE GT ×3 (06:12→21:42)
[2024-10-24] MEDS: RINGERS LACTATED 500 ML 500 ML 999 ML IV (06:19)
[2024-10-24 06:22] LABS: Anion Gap 9 (7-16); BUN/Creatinine Ratio 17 Ratio (12-20); Blood Urea Nitrogen 10 mg/dL (9-23); Calcium 9.1 mg/dL (8.3-10.6); Carbon Dioxide 23.7 mMol/L (20.0-31.0); Chloride 103 mMol/L (98-107); Creatinine (Component) 0.6 mg/dL (0.6-1.3); Estimated Creatinine Clearance 118.9 mL/min (>60); Glucose 105 mg/dL (74-106); Osmolality,Calculated 270 (275-295); Sodium 136 mMol/L (136-145); eGFR > 60 See Note
[2024-10-24] MEDS: levETIRAcetam LIQD 500 MG/5 ML UDC 1000 MG GT ×2 (09:52→20:10)
[2024-10-24] MEDS: MAGNESIUM OXIDE 400 MG TABLET GT ×2 (09:52→20:11)
[2024-10-24] MEDS: ASCORBIC ACID 250 MG TABLET 500 MG GT ×2 (09:52→20:10)
[2024-10-24] MEDS: LACTULOSE SYRUP 20 GM/30 ML UDC 10 GM GT (09:52)
[2024-10-24] MEDS: OLANZapine 5 MG TABLET GT (09:52)
[2024-10-24] MEDS: MULTIVITAMIN 15 ML UDC GT (09:52)
[2024-10-24] MEDS: ENOXAPARIN SOD INJ 40 MG/0.4 ML SYRINGE SC (09:53)
[2024-10-24] MEDS: BALSAM PERU/CASTOR OIL (Venelex) 60 GM TUBE TOP (09:53)
--- NOTE | 2024-10-24 12:28 | PD.RESPRO ---
Documentation for date of: 10/24/24 Subjective Subjective Interval history: Overnight noted to be tachycardic in the 140s and unrecorded temperature of 103 F and was given IVF (total of 1 L), tylenol, and repeat blood cultures obtained. At bedside patient continues to be tachycardic ranging from 110-140 and so another 500 cc IVF given. Blood cultures obtained from 10/22 growing GNR. Will continue to monitor and wait for cultures to speciate with sensitivities. Exam Vital Signs Temp Pulse Resp BP Pulse Ox O2 Del Method O2 Flow Rate 98.9 F 140 H 31 H 122/96 H 97 Trach Collar 8 10/24/24 08:00 10/24/24 08:00 10/24/24 08:00 10/24/24 08:00 10/24/24 08:00 10/24/24 08:00 10/24/24 08:00 FiO2 28 10/24/24 06:36 Narrative Exam General: awake, not alert or orientated, nonverbal, quadriparesis, no acute distress HEENT: NC/AT, mucous membranes moist, bilateral sclera anicteric Cardiovascular: regular rate and rhythm, S1/S2 present, no murmurs appreciated Pulmonary: trach with secretions leading to rhonchi from tube but no rhonchi auscultated in lungs Abdominal: PEG tube C/D/I, soft, non-tender, non-distended, no rebound/guarding, normal bowel sounds present Musculoskeletal: normal ROM, no peripheral edema Skin: warm and dry, intact, no rashes Objective Labs 10/24/24 04:40 10/24/24 04:40 Labs: Laboratory Results - last 24 hr 10/24/24 04:40 WBC 10.3 RBC 3.34 L Hgb 9.8 L Hct 29.3 L MCV 88 MCH 29.3 MCHC 33.4 RDW Std Deviation 48.3 H Plt Count 258 Neut % (Auto) 78 Lymph % (Auto) 9 L [place] % (Auto) 12 Eos % (Auto) 0 Baso % (Auto) 0 Neut # (Auto) 8.1 H Lymph # (Auto) 1.0 [place] # (Auto) 1.3 H Eos # (Auto) 0.0 Baso # (Auto) 0.0 Immature Gran # (Auto) 0.03 H Absolute Nucleated RBC 0.00 Immature Gran % 0 Nucleated RBC % 0 Sodium 136 Potassium 4.0 Chloride 103 Carbon Dioxide 23.7 Anion Gap 9 BUN 10 Creatinine 0.6 Estim Creat Clear Calc 118.9 eGFR > 60 BUN/Creatinine Ratio 17 Glucose 105 Calculated Osmolality 270 L Calcium 9.1 ABG Interpretation ABG results: 10/22/24 22:12 ABG pH 7.52 H ABG pCO2 31 L ABG pO2 131 H ABG HCO3 25 ABG O2 Saturation 100 H ABG Base Excess 3 Quality Measures Quality Measures none Assessment & Plan Assessment Current Active Medications: Generic Name Dose Route Start Last Admin Trade Name Freq PRN Reason Stop Dose Admin Acetaminophen 650 mg 10/23/24 01:59 10/24/24 02:48 Acetaminophen Supp 650 Mg Supp [place] 11/22/24 01:58 650 mg Q6HR PRN Administration [id number] Albuterol 2.5 mg 10/23/24 16:31 Albuterol Rt 2.5 Mg/0.5 Ml Nebu INH 11/22/24 16:15 Q4HRRT PRN shortness of breath or wheezin Ascorbic Acid 500 mg 10/23/24 21:00 10/24/24 09:52 Ascorbic Acid 250 Mg Tablet GT 11/22/24 20:59 500 mg BID RADHA Administration Atorvastatin Calcium 40 mg 10/23/24 21:00 10/23/24 21:11 Atorvastatin Calcium 20 Mg Tablet GT 11/22/24 20:59 40 mg HS RADHA Administration Baclofen 20 mg 10/23/24 18:00 10/24/24 11:41 Baclofen 10 Mg Tablet GT 11/22/24 17:59 20 mg Q6HR RADHA Administration Balsam [place] Oil 0 gm 10/23/24 16:45 10/24/24 09:53 Balsam [place] Oil (Venelex) 60 Gm Tube TOP 11/22/24 16:44 1 applicatio DAILY RADHA Administration Dextrose 25 ml 10/23/24 03:28 10/23/24 11:33 Dextrose 50%-Water Inj 50 Ml Syringe IV 11/22/24 03:27 25 ml Q15MIN PRN Administration BG 50-70 responsive npo pt Dextrose 50 ml 10/23/24 03:28 Dextrose 50%-Water Inj 50 Ml Syringe IV 11/22/24 03:27 Q15MIN PRN BG <50 OR BG <70 & pt unresponsive Enoxaparin Sodium 40 mg 05/06/25 09:00 10/24/24 09:53 Enoxaparin Sod Inj 40 Mg/0.4 Ml Syringe SC 11/06/24 08:59 40 mg QDAY RADHA Administration Gabapentin 300 mg 10/23/24 22:00 10/24/24 06:12 Gabapentin 300 Mg Capsule GT 11/22/24 21:59 300 mg TID RADHA Administration Glucagon 1 mg 10/23/24 03:28 Glucagon Inj 1 Mg Vial IM Q15MIN PRN BG <70, and no IV access Piperacillin/Tazobactam/Dextrose 3.375 gm in 50 mls @ 100 mls/hr 10/23/24 02:05 10/24/24 11:41 Zosyn IV 10/30/24 02:04 100 mls/hr Q6HR RADHA Administration Lactulose 10 gm 10/24/24 09:00 10/24/24 09:52 Lactulose Syrup 20 Gm/30 Ml Udc 11/23/24 08:59 10 gm QDAY RADHA Administration Protocol Levetiracetam 1,000 mg 10/23/24 09:00 10/24/24 09:52 Levetiracetam Liqd 500 Mg/5 Ml Udc 11/22/24 08:59 1,000 mg BID RADHA Administration Magnesium Oxide 400 mg 10/23/24 21:00 10/24/24 09:52 Magnesium Oxide 400 Mg Tablet GT 11/22/24 20:59 400 mg BID RADHA Administration Multivitamins/Minerals 15 ml 10/24/24 09:00 10/24/24 09:52 Multivitamin 15 Ml Udc GT 11/23/24 08:59 15 ml QDAY RADHA Administration Olanzapine 5 mg 10/24/24 09:00 10/24/24 09:52 Olanzapine 5 Mg Tablet GT 11/23/24 08:59 5 mg QDAY RADHA Administration Sodium Chloride 3 ml 10/23/24 16:31 Sodium Chloride Rt [place] 0.9% 3 Ml Nebu INH 11/22/24 16:30 Q4HRRT PRN WITH ALBUTEROL Plan Meena Carmona is a 29 year-old male with a past medical history of of cocaine induced vasculitis, trach and PEG, quadriparesis, history of seizures who has presented to ED from subacute due to fever of 101.8, tachycardia heart rate 120 bpm, tachypnea 28, and blood pressure 114/92. Admitted for sepsis 2/2 healthcare associated pneumonia. #? Hospital-acquired pneumonia Comes from subacute due to fever of 101.8, heart rate 120 bpm, tachypnea 28, and blood pressure 114/92. WBC mildly elevated at 11.3. Recently discharged on 10/17. COVID, flu negative. MRSA nares previously negative as of 1 week ago so will stop vancomycin. Levofloxacin and vancomycin discontinued on 10/23. ? Zosyn 3.375 g IV every 6 hours (10/23-) ? Sputum culture 10/22: GNR ? Blood culture 10/22: Pending ? Repeat blood culture 10/23: Pending ? Urine culture 10/22: Pending #Sinus tachycardia Total of 1 L IVF given overnight and an additional 500 cc IVF today and monitor for improvement. #Hx seizure disorder ? Keppra 1000 mg BID resumed #Agitation ? Olanzapine 5 mg daily #Hx PEG tube dependence ? Ascorbic acid 500 mg BID ? Atorvastatin 40 mg HS #Hx quadriplegia ? Gabapentin 300 mg TID ? Baclofen 20 mg q6hr #Hx GERD ? Pantoprazole 40 mg daily #Hx hypotension ? Holding midodrine 15 mg TID Hospital management: Disposition: pending culture results and sensitivities Diet: TF Jevity 1.2 at 65 mL/h for 24 hours via G-tube by pump. 30 mL/h water flush. Lines: PIV DVT prophylaxis: enoxaparin SC daily CODE STATUS: DNR ----- Plan discussed with attending physician Dr. Sally Vergara MD PGY-1 Internal Medicine Attending Provider Attestation/Addendum I have discussed and was present for the essential components of the history, physical examination, diagnosis, and treatment plan with the resident. I agree with the patient's care as documented by the resident and amended herein by me. Jeramie Zavala DO. Patient seen and evaluated this AM. No acute events overnight,, patient reported to be febrile overnight however per not recorded in chart. Repeat blood cultures were drawn. Patient still tachycardic with a rate of 112 this morning at time of bedside visit however improvement overnight. Significant labs include a stable hemoglobin 9.8, BMP largely unremarkable. Will continue Zosyn at this time and give another fluid bolus today. Continue to monitor closely, likely DC in 1 to 2 days pending improvement. Will continue to follow cultures, blood and urine cultures pending, initial blood cultures on arrival are NGTD. Sputum cultures demonstrating GNR thus far. Although this document has been carefully reviewed, there may still be some phonetic and other typographical errors. These errors are purely grammatical due to imperfections in the software program and should not be construed in any way to compromise the substance of the patient's medical care during this visit.
[2024-10-24] MEDS: SODIUM CHLORIDE 0.9% 500 ML 500 ML 999 ML IV (12:45)
[2024-10-24] MEDS: ATORVASTATIN CALCIUM 20 MG TABLET 40 MG GT (20:11)
[2024-10-25] VITALS (15 sets, daily range): BP systolic 118–145; BP diastolic 73–103; PULSE 98–174; RESP 18–24; TEMP 36.1–38.2; O2SAT 99–100; BMI 14.4
[2024-10-25] MEDS: PIPER/TAZO 3.375 GM PREMIX 3.375 GM/50 ML BAG IV (05:33)
[2024-10-25] MEDS: BACLOFEN 10 MG TABLET 20 MG GT ×4 (05:33→23:54)
[2024-10-25] MEDS: GABAPENTIN 300 MG CAPSULE GT ×3 (05:33→21:37)
[2024-10-25 06:21] LABS: Basophils % (Auto) 0 % (0-2.5); Eosinophils % (Auto) 0 % (0-10); Hematocrit 32.9 % (41.0-53.0); Hemoglobin 10.5 g/dL (13.5-16.0); Immature Granulocytes % (Auto) 0 % (0-0); Immature Granulocytes Auto 0.05 Thou/mm3 (0.00-0.00); Lymphocytes # (Auto) 1.2 Thou/mm3 (1.0-4.8); Lymphocytes % (Auto) 9 % (10-50); Mean Corpuscular HGB Conc 31.9 g/dl (31.0-37.0); Mean Corpuscular Hemoglobin 29.2 pg (25.0-35.0); Mean Corpuscular Volume 92 fL (80-100); Monocytes % (Auto) 15 % (0-12); Neutrophils % (Auto) 75 % (37-80); Nucleated Red Blood Cell % 0 /100 WBC (0); Platelet Count 240 Thou/mm3 (140-440); RDW Standard Deviation 50.6 fL (35.1-43.9); Red Blood Count 3.59 Miln/mm3 (4.50-5.90); White Blood Count 13.3 Thou/mm3 (3.8-10.6)
[2024-10-25 07:00] LABS: Anion Gap 11 (7-16); BUN/Creatinine Ratio 12 Ratio (12-20); Blood Urea Nitrogen 7 mg/dL (9-23); Calcium 9.5 mg/dL (8.3-10.6); Carbon Dioxide 23.1 mMol/L (20.0-31.0); Chloride 105 mMol/L (98-107); Creatinine (Component) 0.6 mg/dL (0.6-1.3); Estimated Creatinine Clearance 118.9 mL/min (>60); Glucose 97 mg/dL (74-106); Osmolality,Calculated 275 (275-295); Potassium 4.1 mMol/L (3.4-5.1); Sodium 139 mMol/L (136-145); eGFR > 60 See Note
[2024-10-25] MEDS: HYDROcodone/APAP 5/325 TABLET 1 TAB GT (08:17)
[2024-10-25] MEDS: LACTULOSE SYRUP 20 GM/30 ML UDC 10 GM GT (08:18)
[2024-10-25] MEDS: ASCORBIC ACID 250 MG TABLET 500 MG GT ×2 (08:18→20:28)
[2024-10-25] MEDS: MAGNESIUM OXIDE 400 MG TABLET GT ×2 (08:18→20:28)
[2024-10-25] MEDS: MULTIVITAMIN 15 ML UDC GT (08:18)
[2024-10-25] MEDS: OLANZapine 5 MG TABLET GT (08:18)
[2024-10-25] MEDS: levETIRAcetam LIQD 500 MG/5 ML UDC 1000 MG GT ×2 (08:21→20:34)
[2024-10-25] MEDS: ENOXAPARIN SOD INJ 40 MG/0.4 ML SYRINGE SC (08:22)
[2024-10-25] MEDS: BALSAM PERU/CASTOR OIL (Venelex) 60 GM TUBE TOP (08:30)
--- NOTE | 2024-10-25 09:44 | EKG_ITS ---
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
--- NOTE | 2024-10-25 09:54 | PC.SS ---
SS follow up note; Patient is on IV ABX. Pending Cultures. Patient will returb back to Subacute when medically cleared. PASSR completed.
[2024-10-25 10:07] LABS: Path Review Blood Smear Sent to Pathologist
[2024-10-25] MEDS: RINGERS LACTATED 1000 ML 1,000 ML 999 ML IV (11:02)
[2024-10-25] MEDS: METOPROLOL TARTRATE INJ 1 MG/ML AMP 5 ML 5 MG IVP (11:06)
[2024-10-25] MEDS: LEVALBUTEROL RT 1.25 MG/0.5 ML NEBU INH ×4 (11:26→22:30)
[2024-10-25] MEDS: SODIUM CHLORIDE RT SOL 0.9% 3 ML NEBU INH ×4 (11:26→22:30)
[2024-10-25 11:43] LABS: Magnesium 1.6 mg/dL (1.6-2.6); Troponin I < 0.020 ng/mL (0.0-0.045)
--- NOTE | 2024-10-25 11:58 | PD.RESPRO ---
Documentation for date of: 10/25/24 Subjective Subjective Interval history: No acute overnight events noted. Notified by nursing staff that heart rate elevated in 140s-160s and that patient at times can communicate with non-verbal cues, stating that he was in pain so norco was started. Temporarily decreased heart rate into 110s but again increased to 170s. EKG obtained and showed significant artifact but HR of 158 noted. Upon evaluation, blood pressure was stable in 140s/90s and so metoprolol tartrate 5 mg IV and 1 L IVF were given and patient upgraded to telemetry. Heart rate improved to 120s. Temperature also taken and had fever of 100.8 F so antibiotics broaded to add vancomycin. Otherwise, lactate normal and magnesium was 1.6 so given 4 g, potassium > 4.0. Exam Vital Signs Temp Pulse Resp BP Pulse Ox O2 Del Method O2 Flow Rate 100.8 F H 128 H 23 H 135/99 H 99 Trach Collar 6 10/25/24 11:44 10/25/24 11:44 10/25/24 11:44 10/25/24 11:44 10/25/24 11:44 10/25/24 11:44 10/25/24 11:44 FiO2 28 10/25/24 11:44 Narrative Exam General: awake, not alert or orientated, nonverbal, quadriparesis, no acute distress; intermittently communicates with nonverbal cues HEENT: NC/AT, mucous membranes moist, bilateral sclera anicteric Cardiovascular: regular rate and rhythm, S1/S2 present, no murmurs appreciated Pulmonary: trach with secretions leading to rhonchi from tube but no rhonchi auscultated in lungs Abdominal: PEG tube C/D/I, soft, non-tender, non-distended, no rebound/guarding, normal bowel sounds present Musculoskeletal: normal ROM, no peripheral edema Skin: warm and dry, intact, no rashes Objective Labs 10/25/24 05:12 10/25/24 05:12 Labs: Laboratory Results - last 24 hr 10/25/24 10/25/24 05:12 11:15 WBC 13.3 H RBC 3.59 L Hgb 10.5 L Hct 32.9 L MCV 92 MCH 29.2 MCHC 31.9 RDW Std Deviation 50.6 H Plt Count 240 Neut % (Auto) 75 Lymph % (Auto) 9 L [place] % (Auto) 15 H Eos % (Auto) 0 Baso % (Auto) 0 Neut # (Auto) 10.0 H Lymph # (Auto) 1.2 [place] # (Auto) 2.0 H Eos # (Auto) 0.0 Baso # (Auto) 0.0 Immature Gran # (Auto) 0.05 H Absolute Nucleated RBC 0.00 Immature Gran % 0 Nucleated RBC % 0 Smear Path Review Sent to Pathologist Sodium 139 Potassium 4.1 Chloride 105 Carbon Dioxide 23.1 Anion Gap 11 BUN 7 L Creatinine 0.6 Estim Creat Clear Calc 118.9 eGFR > 60 BUN/Creatinine Ratio 12 Glucose 97 Calculated Osmolality 275 Lactic Acid 1.0 Calcium 9.5 Magnesium 1.6 Troponin I < 0.020 ABG Interpretation ABG results: 10/22/24 22:12 ABG pH 7.52 H ABG pCO2 31 L ABG pO2 131 H ABG HCO3 25 ABG O2 Saturation 100 H ABG Base Excess 3 Quality Measures Quality Measures none Assessment & Plan Assessment Current Active Medications: Generic Name Dose Route Start Last Admin Trade Name Freq PRN Reason Stop Dose Admin Acetaminophen 650 mg 10/23/24 01:59 10/24/24 02:48 Acetaminophen Supp 650 Mg Supp [place] 11/22/24 01:58 650 mg Q6HR PRN Administration [id number] Hydrocodone Bitart/Acetaminophen 1 tab 10/25/24 08:10 10/25/24 08:17 Hydrocodone/Apap 5/325 Tablet GT 10/30/24 08:09 1 tab Q6HR PRN Administration PAIN Ascorbic Acid 500 mg 10/23/24 21:00 10/25/24 08:18 Ascorbic Acid 250 Mg Tablet GT 11/22/24 20:59 500 mg BID RADHA Administration Atorvastatin Calcium 40 mg 10/23/24 21:00 10/24/24 20:11 Atorvastatin Calcium 20 Mg Tablet GT 11/22/24 20:59 40 mg HS RADHA Administration Baclofen 20 mg 10/23/24 18:00 10/25/24 05:33 Baclofen 10 Mg Tablet GT 11/22/24 17:59 20 mg Q6HR RADHA Administration Balsam [place] Oil 0 gm 10/23/24 16:45 10/25/24 08:30 Balsam [place] Oil (Venelex) 60 Gm Tube TOP 11/22/24 16:44 1 applicatio DAILY RADHA Administration Dextrose 25 ml 10/23/24 03:28 10/23/24 11:33 Dextrose 50%-Water Inj 50 Ml Syringe IV 11/22/24 03:27 25 ml Q15MIN PRN Administration BG 50-70 responsive npo pt Dextrose 50 ml 10/23/24 03:28 Dextrose 50%-Water Inj 50 Ml Syringe IV 11/22/24 03:27 Q15MIN PRN BG <50 OR BG <70 & pt unresponsive Enoxaparin Sodium 40 mg 10/23/24 09:00 10/25/24 08:22 Enoxaparin Sod Inj 40 Mg/0.4 Ml Syringe SC 11/06/24 08:59 40 mg QDAY RADHA Administration Gabapentin 300 mg 10/23/24 22:00 10/25/24 05:33 Gabapentin 300 Mg Capsule GT 11/22/24 21:59 300 mg TID RADHA Administration Glucagon 1 mg 10/23/24 03:28 Glucagon Inj 1 Mg Vial IM Q15MIN PRN BG <70, and no IV access Piperacillin Sod/Tazobactam 100 mls @ 200 mls/hr 10/25/24 11:21 Sod 4.5 gm/ Sodium Chloride IV 11/01/24 11:20 Q6HR RADHA Lactulose 10 gm 10/24/24 09:00 10/25/24 08:18 Lactulose Syrup 20 Gm/30 Ml Udc GT 11/23/24 08:59 10 gm QDAY RADHA Administration Protocol Levalbuterol HCl 1.25 mg 10/25/24 11:00 10/25/24 11:26 Levalbuterol Rt 1.25 Mg/0.5 Ml Nebu INH 11/24/24 10:59 1.25 mg Q4HRRT RADHA Administration Levetiracetam 1,000 mg 10/23/24 09:00 10/25/24 08:21 Levetiracetam Liqd 500 Mg/5 Ml Udc GT 11/22/24 08:59 1,000 mg BID RADHA Administration Magnesium Oxide 400 mg 10/23/24 21:00 10/25/24 08:18 Magnesium Oxide 400 Mg Tablet GT 11/22/24 20:59 400 mg BID RADHA Administration Metoprolol Tartrate 25 mg 10/25/24 21:00 Metoprolol Tartrate 25 Mg Tablet GT 11/24/24 20:59 BID RADHA Multivitamins/Minerals 15 ml 10/24/24 09:00 10/25/24 08:18 Multivitamin 15 Ml Udc GT 11/23/24 08:59 15 ml QDAY RADHA Administration Olanzapine 5 mg 10/24/24 09:00 10/25/24 08:18 Olanzapine 5 Mg Tablet GT 11/23/24 08:59 5 mg QDAY RADHA Administration Pharmacy Consult 1 each 10/25/24 11:30 Vancomycin Pharmacy To Dose 1 Each Each IV 11/24/24 11:29 QDAY RADHA Sodium Chloride 3 ml 10/23/24 16:31 10/25/24 11:26 Sodium Chloride Rt [place] 0.9% 3 Ml Nebu INH 11/22/24 16:30 3 ml Q4HRRT PRN Administration WITH ALBUTEROL Sodium Chloride 3 ml 10/25/24 09:44 Sodium Chloride Rt [place] 0.9% 3 Ml Nebu INH 11/24/24 09:43 PRN PRN SOLN Plan Meena Carmona is a 29 year-old male with a past medical history of of cocaine induced vasculitis, trach and PEG, quadriparesis, history of seizures who has presented to ED from subacute due to fever of 101.8, tachycardia heart rate 120 bpm, tachypnea 28, and blood pressure 114/92. Admitted for sepsis 2/2 healthcare associated pneumonia. #? Hospital-acquired pneumonia Comes from subacute due to fever of 101.8, heart rate 120 bpm, tachypnea 28, and blood pressure 114/92. WBC mildly elevated at 11.3. Recently discharged on 10/17. COVID, flu negative. MRSA nares previously negative as of 1 week ago so will stop vancomycin. Levofloxacin and vancomycin discontinued on 10/23. ? Zosyn 3.375 g IV every 6 hours (10/23-) ? Vancomycin IV daily (10/25-) ? Sputum culture 10/22: GNR, pending speciation and sensitivities ? Blood culture 10/22: Pending ? Repeat blood culture 10/23: Pending ? Urine culture 10/22: negative #Sinus tachycardia vs SVT Total of 1 L IVF given overnight and an additional 500 cc IVF today and monitor for improvement. EKG on 10/25 with significant artifact but HR 158. ? Given metoprolol tartrate 5 mg IV with improvement in heart rate ? Started on metoprolol tartrate 25 mg GT BID ? Given 1 L IVF ? 4 g IV magnesium #Hx seizure disorder ? Keppra 1000 mg BID resumed #Agitation ? Olanzapine 5 mg daily #Hx PEG tube dependence ? Ascorbic acid 500 mg BID ? Atorvastatin 40 mg HS #Hx quadriplegia ? Gabapentin 300 mg TID ? Baclofen 20 mg q6hr #Hx GERD ? Pantoprazole 40 mg daily #Hx hypotension ? Holding midodrine 15 mg TID Hospital management: Disposition: pending culture results and sensitivities Diet: TF Jevity 1.2 at 65 mL/h for 24 hours via G-tube by pump. 30 mL/h water flush. Lines: PIV [place] placed DVT prophylaxis: enoxaparin SC daily CODE STATUS: DNR ----- Plan discussed with attending physician Dr. Sally Vergara MD PGY-1 Internal Medicine Attending Provider Attestation/Addendum Amlodipine, Bumex with Lasix 40 mg IV daily I have discussed and was present for the essential components of the history, physical examination, diagnosis, and treatment plan with the resident. I agree with the patient's care as documented by the resident and amended herein by me. Jeramie Zavala DO. Patient seen and evaluated this AM. No acute events overnight however nursing staff did alert us in the morning that the patient's heart rate was elevated in the 170s. Apparently the patient was able to blink in regards to yes and no questions this morning to the nurse stating he was in pain however we cannot duplicate this in the morning. The patient was given [place] earlier this morning his heart rate did improve however was elevated by the time I got there in the 170s. Patient apparently is on propranolol at home, unclear why his documentation in his chart is not specific however we will continue with metoprolol giving a 5 IV mg push and continue him on metoprolol tartrate. The patient was also diaphoretic this morning and was febrile with a temperature of 100.8. We will broaden out the antibiotics adding MRSA coverage on, the patient does have superficial skin wounds/ulcers. He was MRSA nares negative so I am less concerned about MRSA pneumonia, he is already on Zosyn which is covering for gram neg/pseudomonas howver we will increase the dosing to 4.5 g every 6 hours. I do not think we need to repeat any imaging at this time, the patient was edouard scanned on arrival which demonstrated pneumonia. Sputum cultures were demonstrating GNR however speciation pending, blood and urine cultures negative thus far. Due to the patient's tachycardia, will also upgrade to telemetry. Will continue to monitor closely. Although this document has been carefully reviewed, there may still be some phonetic and other typographical errors. These errors are purely grammatical due to imperfections in the software program and should not be construed in any way to compromise the substance of the patient's medical care during this visit.
[2024-10-25] MEDS: PIPER/TAZO INJ 4.5 GM in SODIUM CHLORIDE 0.9% (POP) 100 ML IV ×3 (12:00→23:56)
[2024-10-25] MEDS: Magnesium Sulfate 4 GM Ivpb 4 GM/50 ML BAG IV (12:27)
[2024-10-25] MEDS: VANCOMYCIN/NS 1 GM IVPB 200 ML IV ×2 (12:36→21:37)
--- NOTE | 2024-10-25 13:51 | PC.DIETICIAN ---
Nutrition Prescription (wounds): 1. Mario 1 pkt BID mixed with 6-8 oz water via PEG tube (unflavored). 2. Recommend Vitamin C 500 mg BID, zinc sulfate 220 mg once daily for 14 days, multivit/minerals. Thank you! :)
[2024-10-25] MEDS: ATORVASTATIN CALCIUM 20 MG TABLET 40 MG GT (20:26)
[2024-10-25] MEDS: METOPROLOL TARTRATE 25 MG TABLET GT (20:27)
[2024-10-26] VITALS (16 sets, daily range): BP systolic 105–120; BP diastolic 64–82; PULSE 85–145; RESP 14–24; TEMP 36.1–37.7; O2SAT 99–100
[2024-10-26] MEDS: HYDROcodone/APAP 5/325 TABLET 1 TAB GT ×2 (00:28→11:22)
--- NOTE | 2024-10-26 01:00 | PC.NURSE ---
Dr demarco at bedside, assessing patient overall status. will place order.
[2024-10-26] MEDS: MORPHINE SULF INJ 10 MG/ML VIAL 2 MG IVP (01:30)
[2024-10-26] MEDS: SODIUM CHLORIDE 0.9% 1000 ML 1,000 ML 50 ML IV ×2 (01:35→20:39)
[2024-10-26] MEDS: LEVALBUTEROL RT 1.25 MG/0.5 ML NEBU INH ×6 (03:39→22:54)
[2024-10-26] MEDS: SODIUM CHLORIDE RT SOL 0.9% 3 ML NEBU INH ×4 (03:40→22:54)
[2024-10-26] MEDS: GABAPENTIN 300 MG CAPSULE GT ×3 (05:33→21:29)
[2024-10-26] MEDS: BACLOFEN 10 MG TABLET 20 MG GT ×4 (05:33→23:55)
[2024-10-26] MEDS: PIPER/TAZO INJ 4.5 GM in SODIUM CHLORIDE 0.9% (POP) 100 ML IV ×4 (05:33→23:55)
[2024-10-26 06:26] LABS: Basophils % (Auto) 0 % (0-2.5); Eosinophils % (Auto) 0 % (0-10); Hematocrit 29.8 % (41.0-53.0); Hemoglobin 9.9 g/dL (13.5-16.0); Immature Granulocytes % (Auto) 0 % (0-0); Immature Granulocytes Auto 0.04 Thou/mm3 (0.00-0.00); Lymphocytes # (Auto) 1.1 Thou/mm3 (1.0-4.8); Lymphocytes % (Auto) 9 % (10-50); Mean Corpuscular HGB Conc 33.2 g/dl (31.0-37.0); Mean Corpuscular Hemoglobin 29.7 pg (25.0-35.0); Mean Corpuscular Volume 90 fL (80-100); Monocytes # (Auto) 1.4 Thou/mm3 (0.0-0.8); Monocytes % (Auto) 11 % (0-12); Neutrophils # (Auto) 10.1 Thou/mm3 (1.8-7.7); Neutrophils % (Auto) 80 % (37-80); Nucleated Red Blood Cell % 0 /100 WBC (0); Platelet Count 259 Thou/mm3 (140-440); RDW Standard Deviation 50.8 fL (35.1-43.9); Red Blood Count 3.33 Miln/mm3 (4.50-5.90); White Blood Count 12.7 Thou/mm3 (3.8-10.6)
[2024-10-26 06:30] LABS: Magnesium 1.9 mg/dL (1.6-2.6)
[2024-10-26 06:43] LABS: Alanine Aminotransferase 22 U/L (10-49); Albumin, Serum 3.9 gm/dL (3.5-5.0); Albumin/Globulin Ratio 1.3 (1.2-2.2); Alkaline Phosphatase 113 U/L (46-116); Anion Gap 9 (7-16); Aspartate Amino Transferase 30 U/L (0-34); BUN/Creatinine Ratio 20 Ratio (12-20); Bilirubin,Total 0.2 mg/dL (0.3-1.2); Blood Urea Nitrogen 12 mg/dL (9-23); Calcium 9.1 mg/dL (8.3-10.6); Calcium (Corrected) 9.2 mg/dL (8.5-10.1); Carbon Dioxide 23.8 mMol/L (20.0-31.0); Chloride 105 mMol/L (98-107); Creatinine (Component) 0.6 mg/dL (0.6-1.3); Estimated Creatinine Clearance 118.9 mL/min (>60); Globulin 2.9 gm/dL (2.3-3.5); Glucose 84 mg/dL (74-106); Osmolality,Calculated 274 (275-295); Potassium 4.6 mMol/L (3.4-5.1); Sodium 138 mMol/L (136-145); Total Protein 6.8 gm/dL (5.7-8.2); eGFR > 60 See Note
--- NOTE | 2024-10-26 07:31 | PD.HHPROG ---
Documentation for date of: 10/26/24 Subjective - Hospitalist Subjective Interval history: No acute event ovn, pulse ranging from 110-140. afeb ovn, tmax yesterday morning 100.8. significant labs include a wbc of 12 and stable Hb of 9.9. cmp unremarkable. sputum cx demonstrating pseudomonas, bcx and ucx neg. Exam Vital Signs Temp Pulse Resp BP Pulse Ox O2 Del Method O2 Flow Rate 99.8 F 108 H 18 119/79 100 Trach Collar 6 10/26/24 04:00 10/26/24 06:53 10/26/24 06:53 10/26/24 04:00 10/26/24 06:53 10/26/24 04:00 10/26/24 06:53 FiO2 28 10/26/24 06:53 Objective - Hospitalist Labs Diagram: 10/26/24 04:40 10/26/24 04:40 Labs: Laboratory Results - last 24 hr 10/25/24 10/25/24 10/26/24 05:12 11:15 04:40 WBC 12.7 H RBC 3.33 L Hgb 9.9 L Hct 29.8 L MCV 90 MCH 29.7 MCHC 33.2 RDW Std Deviation 50.8 H Plt Count 259 Neut % (Auto) 80 Lymph % (Auto) 9 L [place] % (Auto) 11 Eos % (Auto) 0 Baso % (Auto) 0 Neut # (Auto) 10.1 H Lymph # (Auto) 1.1 [place] # (Auto) 1.4 H Eos # (Auto) 0.0 Baso # (Auto) 0.0 Immature Gran # (Auto) 0.04 H Absolute Nucleated RBC 0.00 Immature Gran % 0 Nucleated RBC % 0 Smear Path Review Sent to Pathologist Sodium 138 Potassium 4.6 D Chloride 105 Carbon Dioxide 23.8 Anion Gap 9 BUN 12 Creatinine 0.6 Estim Creat Clear Calc 118.9 eGFR > 60 BUN/Creatinine Ratio 20 Glucose 84 Calculated Osmolality 274 L Lactic Acid 1.0 Calcium 9.1 Corrected Calcium 9.2 Magnesium 1.6 1.9 Total Bilirubin 0.2 L AST 30 ALT 22 Alkaline Phosphatase 113 Troponin I < 0.020 Total Protein 6.8 Albumin 3.9 Globulin 2.9 Albumin/Globulin Ratio 1.3 ABG Interpretation ABG results: 10/22/24 22:12 ABG pH 7.52 H ABG pCO2 31 L ABG pO2 131 H ABG HCO3 25 ABG O2 Saturation 100 H ABG Base Excess 3 Assessment & Plan Plan: Meena Carmona is a 29 year-old male with a past medical history of of cocaine induced vasculitis, trach and PEG, quadriparesis, history of seizures who has presented to ED from subacute due to fever of 101.8, tachycardia heart rate 120 bpm, tachypnea 28, and blood pressure 114/92. Admitted for sepsis 2/2 healthcare associated pneumonia. # Pneumonia, likely secondary to Pseudomonas as demonstrated on sputum cultures ? Continue Zosyn 4.5 g IV every 6 hours (10/23-) ? Continue vancomycin IV daily (10/25-) ? Blood culture 10/22: NGTD ? Repeat blood culture 10/23: NGTD ? Urine culture 10/22: negative #Sinus tachycardia vs SVT likely secondary to infection versus dehydration Total of 1 L IVF given overnight and an additional 500 cc IVF today and monitor for improvement. EKG on 10/25 with significant artifact but HR 158. ? Will continue metoprolol tartrate 25 mg twice daily ? 1 L NS fluid bolus given today ? Replete electrolytes as necessary #Hx seizure disorder ? Keppra 1000 mg BID #Agitation ? Olanzapine 5 mg daily #Hx PEG tube dependence ? Ascorbic acid 500 mg BID ? Atorvastatin 40 mg HS #Hx quadriplegia ? Gabapentin 300 mg TID ? Baclofen 20 mg q6hr #Hx GERD ? Pantoprazole 40 mg daily #Hx hypotension ? Holding midodrine 15 mg TID Hospital management: Disposition: Pending clinical course Diet: TF Jevity 1.2 at 65 mL/h for 24 hours via G-tube by pump. 30 mL/h water flush. Lines: PIV [place] placed DVT prophylaxis: enoxaparin SC daily CODE STATUS: DNR Time Spent with Patient Time: Total time spent is greater than 50% in coordination of care (as documented) at patient's floor/unit and/or counseling patient: Time with patient: 25 - 35 minutes Reason for Continued Stay Reason for continued stay: further monitoring and IV antibiotics Quality Measures Quality Measures none
[2024-10-26] MEDS: ENOXAPARIN SOD INJ 40 MG/0.4 ML SYRINGE SC (08:02)
[2024-10-26] MEDS: LACTULOSE SYRUP 20 GM/30 ML UDC 10 GM GT (08:02)
[2024-10-26] MEDS: ASCORBIC ACID 250 MG TABLET 500 MG GT ×2 (08:02→20:40)
[2024-10-26] MEDS: MULTIVITAMIN 15 ML UDC GT (08:02)
[2024-10-26] MEDS: OLANZapine 5 MG TABLET GT (08:02)
[2024-10-26] MEDS: MAGNESIUM OXIDE 400 MG TABLET GT ×2 (08:02→20:40)
[2024-10-26] MEDS: levETIRAcetam LIQD 500 MG/5 ML UDC 1000 MG GT ×2 (08:03→20:40)
[2024-10-26] MEDS: METOPROLOL TARTRATE 25 MG TABLET GT ×2 (08:03→20:40)
[2024-10-26] MEDS: VANCOMYCIN/NS 1 GM IVPB 200 ML IV ×2 (10:17→21:29)
[2024-10-26] MEDS: SODIUM CHLORIDE 0.9% 1000 ML 1,000 ML 999 ML IV (11:22)
--- NOTE | 2024-10-26 12:58 | XR_ITS ---
Examination: AP chest single view Technique one AP portable semiupright chest single view Exam date and time: October 26, 2024 1312 hours Comparison 01/24/2025 INDICATIONS: Shortness of breath today FINDINGS: Normal heart size No interval pneumonia No pulmonary edema Tracheostomy tube tip 5.6 cm above nahid IMPRESSION: No interval pneumonia
--- NOTE | 2024-10-26 13:48 | PC.SS ---
SS follow up note; Patient is on IV ABX. Patient will return back to Subacute once medically cleared.
--- NOTE | 2024-10-26 14:01 | PD.HHPROG ---
Documentation for date of: 10/26/24 Exam Vital Signs Temp Pulse Resp BP Pulse Ox O2 Del Method O2 Flow Rate 97.6 F 130 H 18 120/74 100 Trach Collar 6 10/26/24 11:46 10/26/24 11:46 10/26/24 11:46 10/26/24 11:46 10/26/24 11:46 10/26/24 11:46 10/26/24 11:46 FiO2 28 10/26/24 10:43 Objective - Hospitalist Labs Diagram: 10/26/24 04:40 10/26/24 04:40 Labs: Laboratory Results - last 24 hr 10/26/24 04:40 WBC 12.7 H RBC 3.33 L Hgb 9.9 L Hct 29.8 L MCV 90 MCH 29.7 MCHC 33.2 RDW Std Deviation 50.8 H Plt Count 259 Neut % (Auto) 80 Lymph % (Auto) 9 L [place] % (Auto) 11 Eos % (Auto) 0 Baso % (Auto) 0 Neut # (Auto) 10.1 H Lymph # (Auto) 1.1 [place] # (Auto) 1.4 H Eos # (Auto) 0.0 Baso # (Auto) 0.0 Immature Gran # (Auto) 0.04 H Absolute Nucleated RBC 0.00 Immature Gran % 0 Nucleated RBC % 0 Sodium 138 Potassium 4.6 D Chloride 105 Carbon Dioxide 23.8 Anion Gap 9 BUN 12 Creatinine 0.6 Estim Creat Clear Calc 118.9 eGFR > 60 BUN/Creatinine Ratio 20 Glucose 84 Calculated Osmolality 274 L Calcium 9.1 Corrected Calcium 9.2 Magnesium 1.9 Total Bilirubin 0.2 L AST 30 ALT 22 Alkaline Phosphatase 113 Total Protein 6.8 Albumin 3.9 Globulin 2.9 Albumin/Globulin Ratio 1.3 ABG Interpretation ABG results: 10/22/24 22:12 ABG pH 7.52 H ABG pCO2 31 L ABG pO2 131 H ABG HCO3 25 ABG O2 Saturation 100 H ABG Base Excess 3 Assessment & Plan Plan: Meena Carmona is a 29 year-old male with a past medical history of of cocaine induced vasculitis, trach and PEG, quadriparesis, history of seizures who has presented to ED from subacute due to fever of 101.8, tachycardia heart rate 120 bpm, tachypnea 28, and blood pressure 114/92. Admitted for sepsis 2/2 healthcare associated pneumonia. # Pneumonia, likely secondary to Pseudomonas as demonstrated on sputum cultures ? Continue Zosyn 4.5 g IV every 6 hours (10/23-) ? Continue vancomycin IV daily (10/25-) ? Blood culture 10/22: NGTD ? Repeat blood culture 10/23: NGTD ? Urine culture 10/22: negative #Sinus tachycardia vs SVT likely secondary to infection versus dehydration Total of 1 L IVF given overnight and an additional 500 cc IVF today and monitor for improvement. EKG on 10/25 with significant artifact but HR 158. ? Will continue metoprolol tartrate 25 mg twice daily ? 1 L NS fluid bolus given today ? Replete electrolytes as necessary #Hx seizure disorder ? Keppra 1000 mg BID #Agitation ? Olanzapine 5 mg daily #Hx PEG tube dependence ? Ascorbic acid 500 mg BID ? Atorvastatin 40 mg HS #Hx quadriplegia ? Gabapentin 300 mg TID ? Baclofen 20 mg q6hr #Hx GERD ? Pantoprazole 40 mg daily #Hx hypotension ? Holding midodrine 15 mg TID Hospital management: Disposition: Pending clinical course Diet: TF Jevity 1.2 at 65 mL/h for 24 hours via G-tube by pump. 30 mL/h water flush. Lines: PIV Langston placed DVT prophylaxis: enoxaparin SC daily CODE STATUS: DNR Time Spent with Patient Time: Total time spent is greater than 50% in coordination of care (as documented) at patient's floor/unit and/or counseling patient: Time with patient: 25 - 35 minutes Reason for Continued Stay Reason for continued stay: further monitoring and IV antibiotics Quality Measures Quality Measures none
[2024-10-26] MEDS: SODIUM CHLORIDE 0.9% 500 ML 500 ML 999 ML IV (15:34)
[2024-10-26] MEDS: BALSAM PERU/CASTOR OIL (Venelex) 60 GM TUBE TOP (16:10)
[2024-10-26] MEDS: ATORVASTATIN CALCIUM 20 MG TABLET 40 MG GT (20:40)
[2024-10-26 21:22] LABS: Vancomycin,Trough 10.7 mcg/mL (5.0-10.0)
[2024-10-27] VITALS (21 sets, daily range): BP systolic 112–132; BP diastolic 72–97; PULSE 77–150; RESP 14–25; TEMP 36.4–38.8; O2SAT 98–100
[2024-10-27] MEDS: HYDROcodone/APAP 5/325 TABLET 1 TAB GT (00:03)
[2024-10-27] MEDS: METOPROLOL TARTRATE INJ 1 MG/ML AMP 5 ML 5 MG IVP (03:14)
[2024-10-27] MEDS: ACETAMINOPHEN SUPP 650 MG SUPP PR ×2 (03:21→10:28)
[2024-10-27] MEDS: LEVALBUTEROL RT 1.25 MG/0.5 ML NEBU INH ×6 (03:26→23:10)
[2024-10-27] MEDS: SODIUM CHLORIDE RT SOL 0.9% 3 ML NEBU INH ×2 (03:26→18:54)
[2024-10-27] MEDS: BACLOFEN 10 MG TABLET 20 MG GT ×4 (05:19→23:56)
[2024-10-27] MEDS: GABAPENTIN 300 MG CAPSULE GT ×3 (05:19→21:18)
[2024-10-27] MEDS: PIPER/TAZO INJ 4.5 GM in SODIUM CHLORIDE 0.9% (POP) 100 ML IV ×4 (05:19→23:56)
[2024-10-27 05:47] LABS: Basophils % (Auto) 0 % (0-2.5); Eosinophils % (Auto) 0 % (0-10); Hematocrit 30.9 % (41.0-53.0); Immature Granulocytes % (Auto) 0 % (0-0); Immature Granulocytes Auto 0.03 Thou/mm3 (0.00-0.00); Lymphocytes # (Auto) 1.3 Thou/mm3 (1.0-4.8); Lymphocytes % (Auto) 12 % (10-50); Mean Corpuscular HGB Conc 32.4 g/dl (31.0-37.0); Mean Corpuscular Hemoglobin 29.2 pg (25.0-35.0); Mean Corpuscular Volume 90 fL (80-100); Monocytes % (Auto) 9 % (0-12); Neutrophils % (Auto) 79 % (37-80); Nucleated Red Blood Cell % 0 /100 WBC (0); Platelet Count 336 Thou/mm3 (140-440); RDW Standard Deviation 52.1 fL (35.1-43.9); Red Blood Count 3.42 Miln/mm3 (4.50-5.90); White Blood Count 11.4 Thou/mm3 (3.8-10.6)
[2024-10-27 06:20] LABS: Alanine Aminotransferase 25 U/L (10-49); Albumin, Serum 4.3 gm/dL (3.5-5.0); Albumin/Globulin Ratio 1.3 (1.2-2.2); Alkaline Phosphatase 107 U/L (46-116); Anion Gap 10 (7-16); Aspartate Amino Transferase 28 U/L (0-34); BUN/Creatinine Ratio 15 Ratio (12-20); Bilirubin,Total < 0.2 mg/dL (0.3-1.2); Blood Urea Nitrogen 9 mg/dL (9-23); Calcium 9.5 mg/dL (8.3-10.6); Calcium (Corrected) 9.5 mg/dL (8.5-10.1); Chloride 103 mMol/L (98-107); Creatinine (Component) 0.6 mg/dL (0.6-1.3); Estimated Creatinine Clearance 118.9 mL/min (>60); Globulin 3.4 gm/dL (2.3-3.5); Glucose 106 mg/dL (74-106); Magnesium 1.7 mg/dL (1.6-2.6); Osmolality,Calculated 272 (275-295); Sodium 137 mMol/L (136-145); Total Protein 7.7 gm/dL (5.7-8.2); eGFR > 60 See Note
[2024-10-27] MEDS: ASCORBIC ACID 250 MG TABLET 500 MG GT ×2 (09:50→21:18)
[2024-10-27] MEDS: METOPROLOL TARTRATE 25 MG TABLET GT ×2 (09:50→21:18)
[2024-10-27] MEDS: BALSAM PERU/CASTOR OIL (Venelex) 60 GM TUBE TOP (09:50)
[2024-10-27] MEDS: MAGNESIUM OXIDE 400 MG TABLET GT ×2 (09:50→21:18)
[2024-10-27] MEDS: VANCOMYCIN/D5W 1,250 MG IVPB 250 ML 120 MG IV ×2 (09:50→21:19)
[2024-10-27] MEDS: OLANZapine 5 MG TABLET GT (09:50)
[2024-10-27] MEDS: LACTULOSE SYRUP 20 GM/30 ML UDC 10 GM GT (09:51)
[2024-10-27] MEDS: ENOXAPARIN SOD INJ 40 MG/0.4 ML SYRINGE SC (09:51)
[2024-10-27] MEDS: levETIRAcetam LIQD 500 MG/5 ML UDC 1000 MG GT ×2 (09:51→21:18)
[2024-10-27] MEDS: MULTIVITAMIN 15 ML UDC GT (09:51)
[2024-10-27 11:13] LABS: Creatine Kinase 278 U/L (34-171)
--- NOTE | 2024-10-27 14:44 | PD.HHDS ---
Planned Discharge Date 10/27/24 DS: Providers Provider Date of admission: 10/23/24 01:59 Primary care physician: Physician No Primary/Family Admitting Provider: Juan Miguel Fields MD Attending Provider on Admission: Gui Zavala DO Consults: 10/23/24 06:42 Referral Wound Care Routine Comment: pressure injury left posterior lower leg 10/23/24 06:43 Referral Registered Dietitian Routine Comment: peg tube from subacute 10/23/24 06:57 Referral Infection Control Routine Comment: Reason for Infection Control Referral: Multiple ABX (>2) Health Equity Referral - Knowledge Deficit Routine Comment: Positive screening for knowledge deficit needs. Attending Provider on DC: Gui Zavala DO Discharging Provider: Gui Zavala DO Hospital Course - Hospitalist Time Spent with Patient Time attestation: Total time spent providing and/or coordinating discharge services: Discharge Results Labs Diagrams: 10/27/24 04:20 10/27/24 04:20 Labs: Short CBC 10/27/24 Range/Units 04:20 WBC 11.4 H (3.8-10.6) Thou/mm3 Hgb 10.0 L (13.5-16.0) g/dL Hct 30.9 L (41.0-53.0) % Plt Count 336 D (140-440) Thou/mm3 BMP 10/27/24 04:20 Sodium 137 Potassium 4.0 D Chloride 103 Carbon Dioxide 24.0 BUN 9 Creatinine 0.6 Glucose 106 Calcium 9.5 Cardiac Enzymes 10/27/24 Range/Units 04:20 Total Creatine Kinase 278 H (34-171) U/L Liver Function 10/27/24 Range/Units 04:20 Total Bilirubin < 0.2 L (0.3-1.2) mg/dL AST 28 (0-34) U/L ALT 25 (10-49) U/L Alkaline Phosphatase 107 (46-116) U/L Albumin 4.3 (3.5-5.0) gm/dL Exam Vital Signs Temp Pulse Resp BP Pulse Ox O2 Del Method O2 Flow Rate 98.8 F 77 16 122/87 H 100 Trach Collar 6 10/27/24 12:00 10/27/24 14:19 10/27/24 14:19 10/27/24 12:00 10/27/24 14:19 10/27/24 12:00 10/27/24 14:19 FiO2 28 10/27/24 14:19 Discharge Plan Prescriptions/Referrals Prescriptions/Med Rec: No Action atorvastatin 40 mg tablet 40 mg feeding tube HS baclofen 20 mg tablet 20 mg feeding tube Q6HR levetiracetam 100 mg/mL solution 1,000 mg feeding tube BID gabapentin 300 mg capsule 300 mg feeding tube TID lansoprazole 30 mg capsule,delayed release(DR/EC) 30 mg feeding tube QDAY olanzapine 5 mg tablet 5 mg feeding tube QDAY propranolol 10 mg tablet 10 mg feeding tube Q8H midodrine 5 mg tablet 15 mg feeding tube Q8HR albuterol sulfate 2.5 mg /3 mL (0.083 %) solution for nebulization 2.5 mg inhalation Q4H PRN (Reason: shortness of breath or wheezing) ascorbic acid (vitamin C) [C-500] 500 mg tablet 500 mg feeding tube BID multivitamin Tablet 1 tab feeding tube QDAY magnesium oxide 400 mg magnesium tablet 400 mg feeding tube BID lactulose [Enulose] 10 gram/15 mL solution 10 g feeding tube QDAY Referrals: No Primary/Family,Physician [Primary Care Provider] - Patient/Caregiver Discharge Instructions Print Language: Nigerian
--- NOTE | 2024-10-27 14:48 | PD.HHPROG ---
Documentation for date of: 10/27/24 Subjective - Hospitalist Subjective Interval history: No acute events overnight, Tmax 101.9, pulse this morning was under 100 which is a significant proved but however ranged up to the 150s overnight. Significant labs included WBC of 11.4 which is a slight decrease from previous day, hemoglobin stable at 10, CMP CMP largely unremarkable however we did order a creatinine kinase today which was elevated to 278. Exam Vital Signs Temp Pulse Resp BP Pulse Ox O2 Del Method O2 Flow Rate 98.8 F 77 16 122/87 H 100 Trach Collar 6 10/27/24 12:00 10/27/24 14:19 10/27/24 14:19 10/27/24 12:00 10/27/24 14:19 10/27/24 12:00 10/27/24 14:19 FiO2 28 10/27/24 14:19 Narrative GENERAL APPEARANCE: NAD HEENT: Normocephalic, atraumatic, extraocular movements intact, patient has tracheostomy tube NECK: Supple, no JVD or bruits. CARDIOVASULAR: NSR, S1, S2 heard without S3-S4 or murmur no rubs or gallops. LUNGS/CHEST: Tracheostomy tube in place, reduced breath sounds in the right lung, patient trach connected to all O2 ABDOMEN: Soft, nontender, with normal bowel sounds, Langston catheter in place, no discharge seen, urine is clear EXTREMITIES: Bandages clean and dry on lower extremity ulcer sites NEURO: More responsive today to his name, he opens his eyes however does not track Objective - Hospitalist Labs Diagram: 10/27/24 04:20 10/27/24 04:20 Labs: Laboratory Results - last 24 hr 10/26/24 10/27/24 20:43 04:20 WBC 11.4 H RBC 3.42 L Hgb 10.0 L Hct 30.9 L MCV 90 MCH 29.2 MCHC 32.4 RDW Std Deviation 52.1 H Plt Count 336 D Neut % (Auto) 79 Lymph % (Auto) 12 [place] % (Auto) 9 Eos % (Auto) 0 Baso % (Auto) 0 Neut # (Auto) 9.0 H Lymph # (Auto) 1.3 [place] # (Auto) 1.0 H Eos # (Auto) 0.0 Baso # (Auto) 0.0 Immature Gran # (Auto) 0.03 H Absolute Nucleated RBC 0.00 Immature Gran % 0 Nucleated RBC % 0 Sodium 137 Potassium 4.0 D Chloride 103 Carbon Dioxide 24.0 Anion Gap 10 BUN 9 Creatinine 0.6 Estim Creat Clear Calc 118.9 eGFR > 60 BUN/Creatinine Ratio 15 Glucose 106 Calculated Osmolality 272 L Calcium 9.5 Corrected Calcium 9.5 Magnesium 1.7 Total Bilirubin < 0.2 L AST 28 ALT 25 Alkaline Phosphatase 107 Total Creatine Kinase 278 H Total Protein 7.7 Albumin 4.3 Globulin 3.4 Albumin/Globulin Ratio 1.3 Vancomycin Trough 10.7 H ABG Interpretation ABG results: 10/22/24 22:12 ABG pH 7.52 H ABG pCO2 31 L ABG pO2 131 H ABG HCO3 25 ABG O2 Saturation 100 H ABG Base Excess 3 Assessment & Plan Plan: Meena Carmona is a 29 year-old male with a past medical history of of cocaine induced vasculitis, trach and PEG, quadriparesis, history of seizures who has presented to ED from subacute due to fever of 101.8, tachycardia heart rate 120 bpm, tachypnea 28, and blood pressure 114/92. Admitted for sepsis 2/2 healthcare associated pneumonia. # Pneumonia, likely secondary to Pseudomonas as demonstrated on sputum cultures -improved per x-ray however the patient still febrile ? Continue Zosyn 4.5 g IV every 6 hours (10/23-) ? Continue vancomycin IV daily (10/25-) ? Blood culture 10/22: NGTD ? Repeat blood culture 10/23: NGTD - Repeat blood cultures 10/26 NGTD - Genital cultures pending, reported green penile discharge by nursing staff on 10/26 ? Urine culture 10/22: negative #Sinus tachycardia vs SVT likely secondary to infection versus dehydration -improved today Total of 1 L IVF given overnight and an additional 500 cc IVF today and monitor for improvement. EKG on 10/25 with significant artifact but HR 158. ? Will continue metoprolol tartrate 25 mg twice daily ? Will continue the patient on maintenance fluids NS 50 mL/h ? Replete electrolytes as necessary #?Active seizure, CK 276 today #Hx seizure disorder - EEG ordered ?Continue Keppra 1000 mg BID #Agitation ? Olanzapine 5 mg daily #Hx PEG tube dependence ? Ascorbic acid 500 mg BID ? Atorvastatin 40 mg HS #Hx quadriplegia ? Gabapentin 300 mg TID ? Baclofen 20 mg q6hr #Hx GERD ? Pantoprazole 40 mg daily #Hx hypotension ? Holding midodrine 15 mg TID Hospital management: Disposition: Pending clinical course Diet: TF Jevity 1.2 at 65 mL/h for 24 hours via G-tube by pump. 30 mL/h water flush. Lines: PIV Langston placed DVT prophylaxis: enoxaparin SC daily CODE STATUS: DNR Time Spent with Patient Time: Total time spent is greater than 50% in coordination of care (as documented) at patient's floor/unit and/or counseling patient: Time with patient: 25 - 35 minutes Reason for Continued Stay Reason for continued stay: further monitoring, cardiac monitoring and IV antibiotics Quality Measures Quality Measures none
--- NOTE | 2024-10-27 18:10 | RESP.EEG ---
EEG COMPLETED AND READY TO BE READ.
[2024-10-27] MEDS: SODIUM CHLORIDE 0.9% 1000 ML 1,000 ML 50 ML IV (19:09)
[2024-10-27] MEDS: ATORVASTATIN CALCIUM 20 MG TABLET 40 MG GT (21:18)
[2024-10-28] VITALS (17 sets, daily range): BP systolic 107–140; BP diastolic 66–97; PULSE 89–150; RESP 18–33; TEMP 36.5–38.6; O2SAT 98–100
[2024-10-28] MEDS: ACETAMINOPHEN SUPP 650 MG SUPP PR (00:51)
[2024-10-28] MEDS: LEVALBUTEROL RT 1.25 MG/0.5 ML NEBU INH ×6 (02:01→23:30)
[2024-10-28] MEDS: PIPER/TAZO INJ 4.5 GM in SODIUM CHLORIDE 0.9% (POP) 100 ML IV ×3 (05:23→17:15)
[2024-10-28] MEDS: GABAPENTIN 300 MG CAPSULE GT ×3 (05:24→21:05)
[2024-10-28] MEDS: BACLOFEN 10 MG TABLET 20 MG GT ×3 (05:24→17:15)
[2024-10-28 06:11] LABS: Basophils % (Auto) 0 % (0-2.5); Eosinophils # (Auto) 0.1 Thou/mm3 (0.0-0.5); Eosinophils % (Auto) 1 % (0-10); Hematocrit 28.8 % (41.0-53.0); Hemoglobin 9.6 g/dL (13.5-16.0); Immature Granulocytes % (Auto) 0 % (0-0); Immature Granulocytes Auto 0.04 Thou/mm3 (0.00-0.00); Lymphocytes % (Auto) 9 % (10-50); Mean Corpuscular HGB Conc 33.3 g/dl (31.0-37.0); Mean Corpuscular Hemoglobin 29.3 pg (25.0-35.0); Mean Corpuscular Volume 88 fL (80-100); Monocytes # (Auto) 0.8 Thou/mm3 (0.0-0.8); Monocytes % (Auto) 7 % (0-12); Neutrophils # (Auto) 9.2 Thou/mm3 (1.8-7.7); Neutrophils % (Auto) 83 % (37-80); Nucleated Red Blood Cell % 0 /100 WBC (0); Platelet Count 291 Thou/mm3 (140-440); RDW Standard Deviation 48.8 fL (35.1-43.9); Red Blood Count 3.28 Miln/mm3 (4.50-5.90); White Blood Count 11.1 Thou/mm3 (3.8-10.6)
[2024-10-28 06:34] LABS: Alanine Aminotransferase 25 U/L (10-49); Albumin/Globulin Ratio 1.2 (1.2-2.2); Alkaline Phosphatase 107 U/L (46-116); Anion Gap 10 (7-16); Aspartate Amino Transferase 41 U/L (0-34); BUN/Creatinine Ratio 14 Ratio (12-20); Bilirubin,Total < 0.2 mg/dL (0.3-1.2); Blood Urea Nitrogen 7 mg/dL (9-23); Calcium 9.2 mg/dL (8.3-10.6); Calcium (Corrected) 9.2 mg/dL (8.5-10.1); Carbon Dioxide 21.9 mMol/L (20.0-31.0); Chloride 102 mMol/L (98-107); Creatinine (Component) 0.5 mg/dL (0.6-1.3); Estimated Creatinine Clearance 142.7 mL/min (>60); Globulin 3.4 gm/dL (2.3-3.5); Glucose 97 mg/dL (74-106); Magnesium 1.6 mg/dL (1.6-2.6); Osmolality,Calculated 266 (275-295); Potassium 4.8 mMol/L (3.4-5.1); Sodium 134 mMol/L (136-145); Total Protein 7.4 gm/dL (5.7-8.2); eGFR > 60 See Note
[2024-10-28] MEDS: LACTULOSE SYRUP 20 GM/30 ML UDC 10 GM GT (08:53)
[2024-10-28] MEDS: levETIRAcetam LIQD 500 MG/5 ML UDC 1000 MG GT ×2 (08:54→20:14)
[2024-10-28] MEDS: METOPROLOL TARTRATE 25 MG TABLET GT ×2 (08:54→20:14)
[2024-10-28] MEDS: MULTIVITAMIN 15 ML UDC GT (08:54)
[2024-10-28] MEDS: OLANZapine 5 MG TABLET GT (08:54)
[2024-10-28] MEDS: MAGNESIUM OXIDE 400 MG TABLET GT ×2 (08:54→20:14)
[2024-10-28] MEDS: ASCORBIC ACID 250 MG TABLET 500 MG GT ×2 (08:54→20:14)
[2024-10-28] MEDS: ENOXAPARIN SOD INJ 40 MG/0.4 ML SYRINGE SC (08:55)
[2024-10-28] MEDS: BALSAM PERU/CASTOR OIL (Venelex) 60 GM TUBE TOP (08:55)
[2024-10-28] MEDS: VANCOMYCIN/D5W 1,250 MG IVPB 250 ML 120 MG IV ×2 (10:17→22:29)
[2024-10-28 10:47] LABS: Sed Rate (ESR) 89 mm/hr (0-15)
[2024-10-28 10:54] LABS: HIV (1&2) Antibody Rapid Non-Reactive
[2024-10-28 10:55] LABS: Ferritin 191 ng/mL (10.5-307.3)
[2024-10-28 11:18] LABS: Procalcitonin 0.25 ng/ml (0.0-0.49)
[2024-10-28 11:23] LABS: C-Reactive Protein 11.4 mg/dL (0.0-0.9)
[2024-10-28] MEDS: LIDOCAINE HCL 1% 20 ML VIAL IM (11:55)
--- NOTE | 2024-10-28 12:19 | PD.SUROPNT ---
Date of Procedure 10/28/24 Pre Op Diagnosis Necrotic ulcer over the left leg behind knee joint Post Op Diagnosis Same Procedure Debridement of full-thickness skin which was necrotic Findings Patient had a decubitus ulcer and had necrotic skin measuring about 5 cm in diameter over the popliteal area on the left leg. Procedure Description Procedure was done at the bedside under local anesthesia. After the wound was washed with Betadine solution and draped in a sterile manner timeout is performed. Then injected 1% Xylocaine over the edges of the wound which measured about 5 cm in diameter. Then using a 15 blade knife I excised the necrotic skin which is full-thickness skin. After this was removed there was a healthy granulation tissue underneath. Wound was washed with saline and dressed with 4 x 4 gauze and Dre roll. Patient tolerated the procedure well. Anesthesia local Pathology / specimen None Estimated Blood Loss 25 Surgeon Sumeet Angela MD
[2024-10-28] MEDS: SODIUM CHLORIDE 0.9% 1000 ML 1,000 ML 50 ML IV (12:20)
[2024-10-28 13:49] LABS: Cocci Serology, IgM Positive (Negative)
[2024-10-28 13:50] LABS: Cocid Sro, CF/ID (UCD) NO CHG* See Sep Rpt
--- NOTE | 2024-10-28 15:45 | PC.SS ---
Rounding: pt spiking fevers, Dr. Watts consulting
[2024-10-28 16:56] LABS: COVID-19 Confirmatory PCR Negative (Neg)
--- NOTE | 2024-10-28 17:56 | PD.HHPROG ---
Documentation for date of: 10/28/24 Subjective - Hospitalist Subjective Interval history: Patient seen and evaluated this AM. Cute events overnight, pulse ranged from the 90s to 140s. Tmax overnight 101.5, eyes nose 2350/3750. Significant labs included WBC of 11, hemoglobin stable 9.6, sodium 134, potassium 4.8. Exam Vital Signs Temp Pulse Resp BP Pulse Ox O2 Del Method O2 Flow Rate 97.7 F 103 H 19 122/79 100 Trach Collar 6 10/28/24 16:00 10/28/24 16:00 10/28/24 16:00 10/28/24 16:00 10/28/24 16:00 10/28/24 16:00 10/28/24 15:48 FiO2 28 10/28/24 15:48 Narrative GENERAL APPEARANCE: NAD HEENT: Normocephalic, atraumatic, extraocular movements intact, patient has tracheostomy tube connected to wall O2 NECK: Supple, no JVD or bruits. CARDIOVASULAR: NSR, S1, S2 heard without S3-S4 or murmur no rubs or gallops. LUNGS/CHEST: Tracheostomy tube in place, reduced breath sounds in the right lung, patient trach connected to all O2 ABDOMEN: Soft, nontender, with normal bowel sounds, Langston catheter in place, clear urine in Langston bag EXTREMITIES: Pressure ulcer on left lower extremity appears worse today with more purulence NEURO: Patient less responsive today Objective - Hospitalist Labs Diagram: 10/28/24 04:27 10/28/24 04:27 Labs: Laboratory Results - last 24 hr 10/28/24 10/28/24 10/28/24 04:27 10:20 13:54 WBC 11.1 H RBC 3.28 L Hgb 9.6 L Hct 28.8 L MCV 88 MCH 29.3 MCHC 33.3 RDW Std Deviation 48.8 H Plt Count 291 D Neut % (Auto) 83 H Lymph % (Auto) 9 L [place] % (Auto) 7 Eos % (Auto) 1 Baso % (Auto) 0 Neut # (Auto) 9.2 H Lymph # (Auto) 1.0 [place] # (Auto) 0.8 Eos # (Auto) 0.1 Baso # (Auto) 0.0 Immature Gran # (Auto) 0.04 H Absolute Nucleated RBC 0.00 Immature Gran % 0 Nucleated RBC % 0 ESR 89 H Sodium 134 L Potassium 4.8 D Chloride 102 Carbon Dioxide 21.9 Anion Gap 10 BUN 7 L Creatinine 0.5 L Estim Creat Clear Calc 142.7 eGFR > 60 BUN/Creatinine Ratio 14 Glucose 97 Calculated Osmolality 266 L Lactic Acid 1.0 Calcium 9.2 Corrected Calcium 9.2 Magnesium 1.6 Ferritin 191 Total Bilirubin < 0.2 L AST 41 H ALT 25 Alkaline Phosphatase 107 C-Reactive Prot, Quant 11.4 H Total Protein 7.4 Albumin 4.0 Globulin 3.4 Albumin/Globulin Ratio 1.2 Procalcitonin 0.25 Coccidioides IgM Ab Positive A HIV 1&2 Antibody Rapid Non-Reactive SARS-CoV-2 (PCR) Negative ABG Interpretation ABG results: 10/22/24 22:12 ABG pH 7.52 H ABG pCO2 31 L ABG pO2 131 H ABG HCO3 25 ABG O2 Saturation 100 H ABG Base Excess 3 Assessment & Plan Plan: Meena Carmona is a 29 year-old male with a past medical history of of cocaine induced vasculitis, trach and PEG, quadriparesis, history of seizures who has presented to ED from subacute due to fever of 101.8, tachycardia heart rate 120 bpm, tachypnea 28, and blood pressure 114/92. Admitted for sepsis 2/2 healthcare associated pneumonia. #Disseminated coccidiomycosis? 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 Once I have the results of this, I most likely will order a lumbar puncture and obtain CSF studies - Start fluconazole suspension through PEG tube, 800 mg daily. Will titrate dose as necessary. QTc is not prolonged # Pneumonia, likely secondary to Pseudomonas as demonstrated on sputum cultures however there may be a component of coccidiomycosis considering positive serologies ? Continue Zosyn 4.5 g IV every 6 hours (10/23-) -Patient started on fluconazole 800 mg daily ? Blood culture 10/22: NGTD ? Repeat blood culture 10/23: NGTD - Repeat blood cultures 10/26 NGTD - Genital cultures pending, reported green penile discharge by nursing staff on 10/26 ? Urine culture 10/22: negative #Sinus tachycardia vs SVT likely secondary to infectious etiologies Total of 1 L IVF given overnight and an additional 500 cc IVF today and monitor for improvement. EKG on 10/25 with significant artifact but HR 158. -Fixed the underlying cause which is likely infection, treating for both bacterial pneumonia, skin infection and coccidiomycosis use ? Will continue metoprolol tartrate 25 mg twice daily ? Will continue the patient on maintenance fluids NS 50 mL/h ? Replete electrolytes as necessary #Hx seizure disorder - EEG did not show any epileptiform activity however this does not rule out seizures. If the patient is seizing, likely secondary to underlying cause lowering the seizure threshold such as infections above ?Continue Keppra 1000 mg BID # Skin ulcerations on lower extremities and sacrum the worst being on his left lower extremity near his knee, appears grade 3 - General Surgery consulted, bedside debridement performed today - Will continue vancomycin for now #Agitation ? Olanzapine 5 mg daily #Hx PEG tube dependence ? Ascorbic acid 500 mg BID ? Atorvastatin 40 mg HS #Hx quadriplegia ? Gabapentin 300 mg TID ? Baclofen 20 mg q6hr #Hx GERD ? Pantoprazole 40 mg daily #Hx hypotension ? Holding midodrine 15 mg TID Hospital management: Disposition: Pending clinical course Diet: TF Jevity 1.2 at 65 mL/h for 24 hours via G-tube by pump. 30 mL/h water flush. Lines: PIV Langston placed DVT prophylaxis: enoxaparin SC daily CODE STATUS: DNR Time Spent with Patient Time: Total time spent is greater than 50% in coordination of care (as documented) at patient's floor/unit and/or counseling patient: Time with patient: Greater than 35 minutes Reason for Continued Stay Reason for continued stay: further monitoring, cardiac monitoring, further dx testing and IV antibiotics Quality Measures Quality Measures none
--- NOTE | 2024-10-28 18:12 | XR_ITS ---
Examination: CT brain head without contrast. CT brain with intravenous contrast 2-D sagittal coronal reconstructions Date and time of exam:October 28, 2024 2121 hours INDICATIONS: Headaches altered mental status today CTDI: vol (mGy):100 DLP: (mGycm):972 Technique: Multiple CT axial sections of the brain have been obtained, 5 mm slice thickness, pre and post intravenous administration 50 cc Isovue 370 2-D sagittal, coronal reconstructions have been obtained Low dose protocols were performed. One or more of the following dose reduction techniques were used; automated exposure control, adjustment of the mA and/or KV according to patient size, use of iterative reconstruction technique. Findings: No significant ventricular enlargement. Intra-axial or extra-axial hemorrhage density is not seen. No mass effect or midline shift Basal cisterns are not remarkable. Fourth ventricle is midline. Cranial vault intact. No abnormal enhancement Impression: Negative for acute hemorrhage, mass effect or midline shift
[2024-10-28] MEDS: SODIUM CHLORIDE RT SOL 0.9% 3 ML NEBU INH (18:35)
[2024-10-28] MEDS: ATORVASTATIN CALCIUM 20 MG TABLET 40 MG GT (20:14)
[2024-10-28] MEDS: FLUCONAZOLE 10 MG/ML 800 MG PO (20:19)
[2024-10-28 21:44] LABS: Vancomycin,Trough 18.6 mcg/mL (5.0-10.0)
[2024-10-29] VITALS (19 sets, daily range): BP systolic 114–149; BP diastolic 75–103; PULSE 92–145; RESP 16–26; TEMP 36.3–37.9; O2SAT 97–100; BMI 16.4
[2024-10-29] MEDS: BACLOFEN 10 MG TABLET 20 MG GT ×4 (00:02→17:36)
[2024-10-29] MEDS: PIPER/TAZO INJ 4.5 GM in SODIUM CHLORIDE 0.9% (POP) 100 ML IV ×4 (00:02→17:36)
[2024-10-29] MEDS: LEVALBUTEROL RT 1.25 MG/0.5 ML NEBU INH ×6 (02:15→22:24)
--- NOTE | 2024-10-29 03:22 | EKG_ITS ---
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
[2024-10-29] MEDS: MORPHINE SULF INJ 10 MG/ML VIAL 2 MG IVP (03:27)
[2024-10-29] MEDS: RINGERS LACTATED 500 ML 500 ML 999 ML IV (03:28)
[2024-10-29] MEDS: ACETAMINOPHEN SUPP 650 MG SUPP PR (03:28)
[2024-10-29] MEDS: GABAPENTIN 300 MG CAPSULE GT ×3 (05:09→21:34)
[2024-10-29 05:10] LABS: Lactate (Lactic Acid) 0.9 mMol/L (0.4-2.0)
[2024-10-29 05:15] LABS: Basophils % (Auto) 0 % (0-2.5); Eosinophils % (Auto) 0 % (0-10); Hematocrit 27.6 % (41.0-53.0); Hemoglobin 9.4 g/dL (13.5-16.0); Immature Granulocytes % (Auto) 1 % (0-0); Immature Granulocytes Auto 0.11 Thou/mm3 (0.00-0.00); Lymphocytes # (Auto) 1.2 Thou/mm3 (1.0-4.8); Lymphocytes % (Auto) 9 % (10-50); Mean Corpuscular HGB Conc 34.1 g/dl (31.0-37.0); Mean Corpuscular Hemoglobin 29.4 pg (25.0-35.0); Mean Corpuscular Volume 86 fL (80-100); Monocytes # (Auto) 0.7 Thou/mm3 (0.0-0.8); Monocytes % (Auto) 6 % (0-12); Neutrophils # (Auto) 10.8 Thou/mm3 (1.8-7.7); Neutrophils % (Auto) 84 % (37-80); Nucleated Red Blood Cell % 0 /100 WBC (0); Platelet Count 331 Thou/mm3 (140-440); RDW Standard Deviation 48.3 fL (35.1-43.9); White Blood Count 12.9 Thou/mm3 (3.8-10.6)
[2024-10-29 05:54] LABS: Alanine Aminotransferase 25 U/L (10-49); Albumin, Serum 3.8 gm/dL (3.5-5.0); Albumin/Globulin Ratio 1.3 (1.2-2.2); Alkaline Phosphatase 98 U/L (46-116); Anion Gap 9 (7-16); Aspartate Amino Transferase 24 U/L (0-34); BUN/Creatinine Ratio 16 Ratio (12-20); Bilirubin,Total < 0.2 mg/dL (0.3-1.2); Blood Urea Nitrogen 8 mg/dL (9-23); Calcium 9.1 mg/dL (8.3-10.6); Calcium (Corrected) 9.3 mg/dL (8.5-10.1); Carbon Dioxide 23.2 mMol/L (20.0-31.0); Chloride 106 mMol/L (98-107); Creatinine (Component) 0.5 mg/dL (0.6-1.3); Estimated Creatinine Clearance 142.7 mL/min (>60); Glucose 115 mg/dL (74-106); Osmolality,Calculated 274 (275-295); Potassium 4.2 mMol/L (3.4-5.1); Sodium 138 mMol/L (136-145); Total Protein 6.8 gm/dL (5.7-8.2); eGFR > 60 See Note
[2024-10-29 07:04] LABS: Legionella Ag, EIA, Urine* NOT DETECTED
[2024-10-29] MEDS: MULTIVITAMIN 15 ML UDC GT (08:39)
[2024-10-29] MEDS: levETIRAcetam LIQD 500 MG/5 ML UDC 1000 MG GT ×2 (08:39→21:34)
[2024-10-29] MEDS: LACTULOSE SYRUP 20 GM/30 ML UDC 10 GM GT (08:39)
[2024-10-29] MEDS: MAGNESIUM OXIDE 400 MG TABLET GT ×2 (08:40→21:34)
[2024-10-29] MEDS: OLANZapine 5 MG TABLET GT (08:40)
[2024-10-29] MEDS: ASCORBIC ACID 250 MG TABLET 500 MG GT ×2 (08:40→21:34)
[2024-10-29] MEDS: METOPROLOL TARTRATE 25 MG TABLET GT ×2 (08:40→21:33)
[2024-10-29] MEDS: FLUCONAZOLE SUSP 40 MG/ML ML 800 MG PO (08:42)
[2024-10-29] MEDS: ENOXAPARIN SOD INJ 40 MG/0.4 ML SYRINGE SC (08:42)
[2024-10-29] MEDS: BALSAM PERU/CASTOR OIL (Venelex) 60 GM TUBE TOP (08:43)
[2024-10-29] MEDS: VANCOMYCIN/D5W 1,250 MG IVPB 250 ML 120 MG IV ×2 (09:07→21:35)
--- NOTE | 2024-10-29 10:45 | PC.SS ---
SS follow up note; Patient will possibly get lumbar puncture, patient is still spiking fevers. Patient will discharge back to [facility] when medically cleared.
[2024-10-29] MEDS: SODIUM CHLORIDE 0.9% 1000 ML 1,000 ML 50 ML IV (14:00)
[2024-10-29] MEDS: HYDROcodone/APAP 5/325 TABLET 1 TAB GT ×2 (14:56→21:45)
[2024-10-29] MEDS: SODIUM CHLORIDE RT SOL 0.9% 3 ML NEBU INH ×2 (18:32→22:24)
[2024-10-29] MEDS: ATORVASTATIN CALCIUM 20 MG TABLET 40 MG GT (21:34)
--- NOTE | 2024-10-29 23:12 | PD.HHPROG ---
Documentation for date of: 10/29/24 Subjective - Hospitalist Subjective Interval history: Acute events overnight, blood pressure 149/103, pulse in the 120s this morning, respiratory rate 21, Tmax overnight 100.2. Significant labs included WBC of 13, hemoglobin stable 9.4 And CMP largely unremarkable. Exam Vital Signs Temp Pulse Resp BP Pulse Ox O2 Del Method O2 Flow Rate 97.4 F 105 H 16 114/75 100 Trach Collar 6 10/29/24 20:00 10/29/24 21:33 10/29/24 20:00 10/29/24 21:33 10/29/24 20:00 10/29/24 20:00 10/29/24 20:00 FiO2 28 10/29/24 14:36 Narrative GENERAL APPEARANCE: NAD HEENT: Normocephalic, atraumatic, extraocular movements intact, patient has tracheostomy tube connected to wall O2 NECK: Supple, no JVD or bruits. CARDIOVASULAR: NSR, S1, S2 heard without S3-S4 or murmur no rubs or gallops. LUNGS/CHEST: Tracheostomy tube in place, reduced breath sounds in the right lung, patient trach connected to all O2 ABDOMEN: Soft, nontender, with normal bowel sounds, Langston catheter in place, clear urine in Langston bag EXTREMITIES: Pressure ulcer bandages clean and dry NEURO: Eyes wide open today, still not responsive to questions Objective - Hospitalist Labs Diagram: 10/29/24 04:48 10/29/24 04:48 Labs: Laboratory Results - last 24 hr 10/23/24 10/29/24 16:45 04:48 WBC 12.9 H RBC 3.20 L Hgb 9.4 L Hct 27.6 L MCV 86 MCH 29.4 MCHC 34.1 RDW Std Deviation 48.3 H Plt Count 331 D Neut % (Auto) 84 H Lymph % (Auto) 9 L [place] % (Auto) 6 Eos % (Auto) 0 Baso % (Auto) 0 Neut # (Auto) 10.8 H Lymph # (Auto) 1.2 [place] # (Auto) 0.7 Eos # (Auto) 0.0 Baso # (Auto) 0.0 Immature Gran # (Auto) 0.11 H Absolute Nucleated RBC 0.00 Immature Gran % 1 H Nucleated RBC % 0 Sodium 138 Potassium 4.2 D Chloride 106 Carbon Dioxide 23.2 Anion Gap 9 BUN 8 L Creatinine 0.5 L Estim Creat Clear Calc 142.7 eGFR > 60 BUN/Creatinine Ratio 16 Glucose 115 H Calculated Osmolality 274 L Lactic Acid 0.9 Calcium 9.1 Corrected Calcium 9.3 Total Bilirubin < 0.2 L AST 24 ALT 25 Alkaline Phosphatase 98 Total Protein 6.8 Albumin 3.8 Globulin 3.0 Albumin/Globulin Ratio 1.3 Urine Legionella Ag NOT DETECTED ABG Interpretation ABG results: 10/22/24 22:12 ABG pH 7.52 H ABG pCO2 31 L ABG pO2 131 H ABG HCO3 25 ABG O2 Saturation 100 H ABG Base Excess 3 Assessment & Plan Plan: Meena Carmona is a 29 year-old male with a past medical history of of cocaine induced vasculitis, trach and PEG, quadriparesis, history of seizures who has presented to ED from subacute due to fever of 101.8, tachycardia heart rate 120 bpm, tachypnea 28, and blood pressure 114/92. Admitted for sepsis 2/2 healthcare associated pneumonia. 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 Plan: -Continue fluconazole suspension through PEG tube, 800 mg daily. Will titrate dose as necessary. QTc is not prolonged - Unfortunately was unable to obtain LP for the patient today to evaluate for Coccidioides meningitis due to the fact interventional radiology wanted the patient to be prone for at least an hour prior to procedure which the patient would not tolerate. Will consider consulting neurology tomorrow for additional recommendations # Pneumonia, likely secondary to Pseudomonas as demonstrated on sputum cultures however there may be a component of coccidiomycosis considering positive serologies ? Continue Zosyn 4.5 g IV every 6 hours (10/23-) will likely de-escalate antibiotics while patient remains afebrile overnight. - Continue fluconazole 800 mg daily - All blood cultures thus far NGTD - Genital cultures pending, reported green penile discharge by nursing staff on 10/26 ? Urine culture 10/22: negative #Sinus tachycardia vs SVT likely secondary to infectious etiologies Total of 1 L IVF given overnight and an additional 500 cc IVF today and monitor for improvement. EKG on 10/25 with significant artifact but HR 158. - Fix the underlying cause which is likely infection, treating for both bacterial pneumonia, skin infection and coccidiomycosis use ? Will continue metoprolol tartrate 25 mg twice daily ? Will continue the patient on maintenance fluids NS 50 mL/h ? Replete electrolytes as necessary #Hx seizure disorder - EEG did not show any epileptiform activity however this does not rule out seizures. If the patient is seizing, likely secondary to underlying cause lowering the seizure threshold such as infections above ?Continue Keppra 1000 mg BID # Skin ulcerations on lower extremities and sacrum the worst being on his left lower extremity near his knee, appears grade 3 - General Surgery consulted, bedside debridement performed today - Will continue vancomycin for now #Agitation ? Olanzapine 5 mg daily #Hx PEG tube dependence ? Ascorbic acid 500 mg BID ? Atorvastatin 40 mg HS #Hx quadriplegia ? Gabapentin 300 mg TID ? Baclofen 20 mg q6hr #Hx GERD ? Pantoprazole 40 mg daily #Hx hypotension ? Holding midodrine 15 mg TID Hospital management: Disposition: Pending clinical course Diet: TF Jevity 1.2 at 65 mL/h for 24 hours via G-tube by pump. 30 mL/h water flush. Lines: PIV Langston placed DVT prophylaxis: enoxaparin SC daily CODE STATUS: DNR Time Spent with Patient Time: Total time spent is greater than 50% in coordination of care (as documented) at patient's floor/unit and/or counseling patient: Time with patient: 25 - 35 minutes Reason for Continued Stay Reason for continued stay: further monitoring and IV antibiotics Quality Measures Quality Measures none
[2024-10-30] VITALS (15 sets, daily range): BP systolic 112–160; BP diastolic 76–105; PULSE 76–140; RESP 15–28; TEMP 36.1–36.7; O2SAT 98–100
[2024-10-30] MEDS: BACLOFEN 10 MG TABLET 20 MG GT ×5 (00:15→23:28)
[2024-10-30] MEDS: PIPER/TAZO INJ 4.5 GM in SODIUM CHLORIDE 0.9% (POP) 100 ML IV ×2 (00:15→05:44)
[2024-10-30] MEDS: LEVALBUTEROL RT 1.25 MG/0.5 ML NEBU INH ×6 (03:16→22:26)
[2024-10-30] MEDS: SODIUM CHLORIDE RT SOL 0.9% 3 ML NEBU INH ×3 (03:16→22:26)
[2024-10-30] MEDS: HYDROcodone/APAP 5/325 TABLET 1 TAB GT (05:44)
[2024-10-30] MEDS: GABAPENTIN 300 MG CAPSULE GT ×3 (05:44→21:17)
[2024-10-30 06:01] LABS: Basophils % (Auto) 0 % (0-2.5); Eosinophils # (Auto) 0.1 Thou/mm3 (0.0-0.5); Eosinophils % (Auto) 1 % (0-10); Hematocrit 28.7 % (41.0-53.0); Hemoglobin 9.5 g/dL (13.5-16.0); Immature Granulocytes % (Auto) 0 % (0-0); Immature Granulocytes Auto 0.03 Thou/mm3 (0.00-0.00); Lymphocytes % (Auto) 11 % (10-50); Mean Corpuscular HGB Conc 33.1 g/dl (31.0-37.0); Mean Corpuscular Hemoglobin 29.2 pg (25.0-35.0); Mean Corpuscular Volume 88 fL (80-100); Monocytes # (Auto) 0.8 Thou/mm3 (0.0-0.8); Monocytes % (Auto) 9 % (0-12); Neutrophils # (Auto) 7.2 Thou/mm3 (1.8-7.7); Neutrophils % (Auto) 79 % (37-80); Nucleated Red Blood Cell % 0 /100 WBC (0); Platelet Count 360 Thou/mm3 (140-440); RDW Standard Deviation 50.5 fL (35.1-43.9); Red Blood Count 3.25 Miln/mm3 (4.50-5.90); White Blood Count 9.2 Thou/mm3 (3.8-10.6)
--- NOTE | 2024-10-30 06:28 | PC.NURSE ---
Dr. Venegas notified of elevated HR 140s, afebrile and that pain med was administered a bit ago. He stated he has been this way in recent nights and to continue to monitor him.
[2024-10-30 07:10] LABS: Alanine Aminotransferase 18 U/L (10-49); Albumin, Serum 3.9 gm/dL (3.5-5.0); Albumin/Globulin Ratio 1.2 (1.2-2.2); Alkaline Phosphatase 96 U/L (46-116); Anion Gap 9 (7-16); Aspartate Amino Transferase 18 U/L (0-34); BUN/Creatinine Ratio 28 Ratio (12-20); Bilirubin,Total < 0.2 mg/dL (0.3-1.2); Blood Urea Nitrogen 14 mg/dL (9-23); Calcium 9.4 mg/dL (8.3-10.6); Calcium (Corrected) 9.5 mg/dL (8.5-10.1); Carbon Dioxide 24.5 mMol/L (20.0-31.0); Chloride 105 mMol/L (98-107); Creatinine (Component) 0.5 mg/dL (0.6-1.3); Estimated Creatinine Clearance 162.1 mL/min (>60); Globulin 3.3 gm/dL (2.3-3.5); Glucose 101 mg/dL (74-106); Osmolality,Calculated 276 (275-295); Sodium 138 mMol/L (136-145); Total Protein 7.2 gm/dL (5.7-8.2); eGFR > 60 See Note
[2024-10-30] MEDS: LACTULOSE SYRUP 20 GM/30 ML UDC 10 GM GT (08:17)
[2024-10-30] MEDS: levETIRAcetam LIQD 500 MG/5 ML UDC 1000 MG GT ×2 (08:17→20:09)
[2024-10-30] MEDS: MAGNESIUM OXIDE 400 MG TABLET GT ×2 (08:19→20:10)
[2024-10-30] MEDS: ASCORBIC ACID 250 MG TABLET 500 MG GT ×2 (08:19→20:10)
[2024-10-30] MEDS: OLANZapine 5 MG TABLET GT (08:20)
[2024-10-30] MEDS: ENOXAPARIN SOD INJ 40 MG/0.4 ML SYRINGE SC (08:21)
[2024-10-30] MEDS: SODIUM CHLORIDE 0.9% 1000 ML 1,000 ML 50 ML IV (08:22)
[2024-10-30] MEDS: MULTIVITAMIN 15 ML UDC GT (08:22)
[2024-10-30] MEDS: METOPROLOL TARTRATE 25 MG TABLET GT ×2 (08:22→20:09)
[2024-10-30] MEDS: FLUCONAZOLE SUSP 40 MG/ML ML 800 MG PO (08:23)
[2024-10-30 10:51] LABS: Vancomycin,Trough 13.5 mcg/mL (5.0-10.0)
--- NOTE | 2024-10-30 11:21 | ESPR_ITS ---
<Statement entered by Genesis Burns MD - 10/30/24 16:58> Patient seen and examined at bedside. Afebrile in the last 24 hours however patient continues to spike elevated heart rate into the 140s, though not recorded. At bedside patient appears to still be diaphoretic but appears calm then the last few days in the hospital. Genital culture Gram stain showed GPC 1+ gram-negative diplococci 1+. IR LP was unsuccessful due to prolonged prone position requirement. Neurology was consulted to see if LP can still be done and warranted due to patient's current clinical status. Will increase patient's ceftriaxone to 2 g daily and transition patient's IV bank to doxycycline. I discussed with and supervised the supply chain intern physician who took care of this patient. I personally saw and examined the patient and discussed the assessment and plan with the entire medicine team, including my attending Dr. Zavala, I agree with most of the assessment and plan as documented below Genesis Burns M.D. PGY-2 Disclaimer: Despite multiple revisions, due to the dictation software being used, the document bellow may not be free of grammatical errors including phonetic/typographic errors. However, this does not deter from our commitment to providing health care in the patient's best interest in mind. Documentation for date of: 10/30/24 Subjective Subjective Interval history: No acute overnight events but noted to be tachycardic in 140s though not recorded. Has been afebrile but at bedside appeared diaphoretic. Leukocytosis improved to within normal limits, hemoglobin stable. Chem panel largely unremarkable. Genital culture Gram stain showed GPC and Gram negative diplococci. Will reach out to neurology to see if lumbar puncture can be done and if warranted given patient's clinical status. Exam Vital Signs Temp Pulse Resp BP Pulse Ox O2 Del Method O2 Flow Rate 98.1 F 118 H 17 123/83 100 Trach Collar 6 10/30/24 08:00 10/30/24 10:55 10/30/24 10:55 10/30/24 08:22 10/30/24 10:55 10/30/24 04:00 10/30/24 10:55 FiO2 28 10/30/24 10:55 Narrative Exam General: awake, not alert or orientated, nonverbal, quadriparesis, no acute distress; intermittently communicates with nonverbal cues HEENT: NC/AT, mucous membranes moist, bilateral sclera anicteric Cardiovascular: regular rate and rhythm, S1/S2 present, no murmurs appreciated Pulmonary: trach with secretions leading to rhonchi from tube but no rhonchi auscultated in lungs Abdominal: PEG tube C/D/I, soft, non-tender, non-distended, no rebound/guarding, normal bowel sounds present Musculoskeletal: normal ROM, no peripheral edema Skin: warm and dry, intact, no rashes Objective Labs 10/30/24 05:25 10/30/24 05:25 Labs: Laboratory Results - last 24 hr 10/30/24 10/30/24 05:25 09:54 WBC 9.2 RBC 3.25 L Hgb 9.5 L Hct 28.7 L MCV 88 MCH 29.2 MCHC 33.1 RDW Std Deviation 50.5 H Plt Count 360 Neut % (Auto) 79 Lymph % (Auto) 11 [place] % (Auto) 9 Eos % (Auto) 1 Baso % (Auto) 0 Neut # (Auto) 7.2 Lymph # (Auto) 1.0 [place] # (Auto) 0.8 Eos # (Auto) 0.1 Baso # (Auto) 0.0 Immature Gran # (Auto) 0.03 H Absolute Nucleated RBC 0.00 Immature Gran % 0 Nucleated RBC % 0 Sodium 138 Potassium 4.0 Chloride 105 Carbon Dioxide 24.5 Anion Gap 9 BUN 14 Creatinine 0.5 L Estim Creat Clear Calc 162.1 eGFR > 60 BUN/Creatinine Ratio 28 H Glucose 101 Calculated Osmolality 276 Calcium 9.4 Corrected Calcium 9.5 Total Bilirubin < 0.2 L AST 18 ALT 18 Alkaline Phosphatase 96 Total Protein 7.2 Albumin 3.9 Globulin 3.3 Albumin/Globulin Ratio 1.2 Vancomycin Trough 13.5 H ABG Interpretation ABG results: 10/22/24 22:12 ABG pH 7.52 H ABG pCO2 31 L ABG pO2 131 H ABG HCO3 25 ABG O2 Saturation 100 H ABG Base Excess 3 Quality Measures Quality Measures none Assessment & Plan Assessment Current Active Medications: Generic Name Dose Route Start Last Admin Trade Name Freq PRN Reason Stop Dose Admin Acetaminophen 650 mg 10/29/24 03:07 10/29/24 03:28 Acetaminophen Supp 650 Mg Supp NM 11/22/24 01:58 650 mg Q6HR PRN Administration FEVER >100.2 Ascorbic Acid 500 mg 10/23/24 21:00 10/30/24 08:19 Ascorbic Acid 250 Mg Tablet GT 11/22/24 20:59 500 mg BID RADHA Administration Atorvastatin Calcium 40 mg 10/23/24 21:00 10/29/24 21:34 Atorvastatin Calcium 20 Mg Tablet GT 11/22/24 20:59 40 mg HS RADHA Administration Baclofen 20 mg 10/23/24 18:00 10/30/24 05:44 Baclofen 10 Mg Tablet GT 11/22/24 17:59 20 mg Q6HR RADHA Administration Dextrose 25 ml 10/23/24 03:28 10/23/24 11:33 Dextrose 50%-Water Inj 50 Ml Syringe IV 11/22/24 03:27 25 ml Q15MIN PRN Administration BG 50-70 responsive npo pt Dextrose 50 ml 10/23/24 03:28 Dextrose 50%-Water Inj 50 Ml Syringe IV 11/22/24 03:27 Q15MIN PRN BG <50 OR BG <70 & pt unresponsive Doxycycline Hyclate 100 mg 10/30/24 11:00 Doxycycline 100 Mg Tablet 11/06/24 10:59 BID RADHA Enoxaparin Sodium 40 mg 10/23/24 09:00 10/30/24 08:21 Enoxaparin Sod Inj 40 Mg/0.4 Ml Syringe SC 11/06/24 08:59 40 mg QDAY RADHA Administration Fluconazole 800 mg 10/28/24 18:26 10/30/24 08:23 Fluconazole Susp 40 Mg/Ml Ml PO 11/04/24 18:24 800 mg QDAY RADHA Administration Gabapentin 300 mg 10/23/24 22:00 10/30/24 05:44 Gabapentin 300 Mg Capsule GT 11/22/24 21:59 300 mg TID RADHA Administration Glucagon 1 mg 10/23/24 03:28 Glucagon Inj 1 Mg Vial IM Q15MIN PRN BG <70, and no IV access Sodium Chloride 1,000 mls @ 50 mls/hr 10/26/24 01:03 10/30/24 08:22 Ns IV 11/25/24 01:02 50 mls/hr .Q20H RADHA Administration Lactated Ringer's 500 mls @ 999 mls/hr 10/30/24 10:52 Lactated Ringers IV 10/30/24 11:22 .Q31M ONE Ceftriaxone Sodium 2 gm/ 50 mls @ 100 mls/hr 10/30/24 11:00 Sodium Chloride IV 10/30/24 11:29 X1 ONE Ceftriaxone Sodium/Dextrose 2 gm in 50 mls @ 100 mls/hr 10/31/24 09:00 Rocephin/D5w 2gm IV 11/06/24 10:46 QDAY RADHA Lactulose 10 gm 10/24/24 09:00 10/30/24 08:17 Lactulose Syrup 20 Gm/30 Ml Udc GT 11/23/24 08:59 10 gm QDAY RADHA Administration Protocol Levalbuterol HCl 1.25 mg 10/25/24 11:00 10/30/24 10:53 Levalbuterol Rt 1.25 Mg/0.5 Ml Nebu INH 11/24/24 10:59 1.25 mg Q4HRRT RADHA Administration Levetiracetam 1,000 mg 10/23/24 09:00 10/30/24 08:17 Levetiracetam Liqd 500 Mg/5 Ml Udc GT 11/22/24 08:59 1,000 mg BID RADHA Administration Magnesium Oxide 400 mg 10/23/24 21:00 10/30/24 08:19 Magnesium Oxide 400 Mg Tablet GT 11/22/24 20:59 400 mg BID RADHA Administration Metoprolol Tartrate 25 mg 10/25/24 21:00 10/30/24 08:22 Metoprolol Tartrate 25 Mg Tablet GT 11/24/24 20:59 25 mg BID RADHA Administration Multivitamins/Minerals 15 ml 10/24/24 09:00 10/30/24 08:22 Multivitamin 15 Ml Udc GT 11/23/24 08:59 15 ml QDAY RADHA Administration Olanzapine 5 mg 10/24/24 09:00 10/30/24 08:20 Olanzapine 5 Mg Tablet GT 11/23/24 08:59 5 mg QDAY RADHA Administration Sodium Chloride 3 ml 10/25/24 09:44 10/30/24 03:16 Sodium Chloride Rt [place] 0.9% 3 Ml Nebu INH 11/24/24 09:43 3 ml PRN PRN Administration SOLN Plan Meena Carmona is a 29 year-old male with a past medical history of of cocaine induced vasculitis, trach and PEG, quadriparesis, history of seizures who has presented to ED from subacute due to fever of 101.8, tachycardia heart rate 120 bpm, tachypnea 28, and blood pressure 114/92. Admitted for sepsis 2/2 healthcare associated pneumonia. #? Disseminated coccidiomycosis, Cocci IgM positive on 10/28 with possible acute on chronic encephalopathy #Acute encephalopathy, per subacute staff patient appears clinically worse CT head performed relatively unremarkable, no acute intracranial pathology noted ? Continue fluconazole suspension through PEG tube, 800 mg daily, will titrate dose as necessary, QTc not prolonged ? Unable to obtain LP for patient to evaluate for Coccidioides meningitis as interventional radiology would like patient to be prone for at least an hour prior to procedure which patient would not tolerate ? Neurology consulted, appreciate recommendations #Pneumonia, likely secondary to Pseudomonas as demonstrated on sputum cultures however may be component of coccidiomycosis considering positive serologies #Urogenital infection, Gram negative diplococci on gram stain Zosyn (10/23-10/30) ? Ceftriaxone 2 g IV daily (10/30-) ? Doxycycline 100 mg GT twice daily (10/30-) ? Fluconazole 800 mg daily ? All blood cultures thus far NGTD ? Genital cultures: Gram stain showed GPC and Gram negative diplococci; reported green penile discharge by nursing staff on 10/26 ? Urine culture 10/22: negative #Sinus tachycardia vs SVT likely secondary to infectious etiologies EKG on 10/25 with significant artifact but HR 158. ? Fix the underlying cause which is likely infection, treating for both bacterial pneumonia, skin infection and coccidiomycosis use ? Continue metoprolol tartrate 25 mg twice daily ? 500 cc NS bolus ? Replete electrolytes as necessary #History of seizure disorder EEG did not show any epileptiform activity, however this does not rule out seizures. If the patient is seizing, likely secondary to underlying cause lowering seizure threshold such as infections above. ? Continue Keppra 1000 mg BID #Skin ulcerations on lower extremities and sacrum Worst being on LLE near knee, appears grade 3 ? General Surgery consulted, bedside debridement performed ? Will continue vancomycin for now #Agitation ? Olanzapine 5 mg daily #History of PEG tube dependence ? Ascorbic acid 500 mg BID ? Atorvastatin 40 mg HS #History of quadriplegia ? Gabapentin 300 mg TID ? Baclofen 20 mg q6hr #History of GERD ? Pantoprazole 40 mg daily #History of hypotension ? Holding midodrine 15 mg TID Hospital management: Disposition: Pending clinical course, neurology recommendations Diet: TF Jevity 1.2 at 65 mL/h for 24 hours via G-tube by pump. 30 mL/h water flush. Lines: PIV Langston placed DVT prophylaxis: enoxaparin SC daily CODE STATUS: DNR ----- Plan discussed with attending physician Dr. Zavala and senior resident Dr. Grant Vergara MD PGY-1 Internal Medicine Attending Provider Attestation/Addendum I have discussed and was present for the essential components of the history, physical examination, diagnosis, and treatment plan with the resident. I agree with the patient's care as documented by the resident and amended herein by me. Jeramie Zavala, DO. Patient seen and evaluated this AM. No acute events overnight, patient was still tachycardic overnight however afebrile now for approximately 48 hours. Significant labs include a stable hemoglobin 9.5, CMP largely unremarkable. Today on physical examination was the first day the patient actually responded to my voice blinking his eyes to yes or no questions. Patient also was a bit diaphoretic however afebrile. Blood cultures from 10/26 NGTD, genital culture Gram stain demonstrating 1+ GPC and 1+ gram-negative diplococci. We will de-escalate patient's antibiotics today, will continue ceftriaxone and doxycycline for any potential infection and/or skin infection. The patient has had adequate treatment for possible Pseudomonas pneumonia on Zosyn for approximately 8 days. Will also continue fluconazole, 800 mg daily for possible Coccidioides meningitis however we will consult neurology today for further recommendations on lumbar puncture to confirm. The patient could not have the procedure done by IR yesterday as he could not meet the requirements for proning prior. I think the patient is improving overall, will continue to monitor closely. Overall the patient's recurrent fever may have been secondary to bacterial pneumonia secondary to Pseudomonas versus pulmonary coccidiomycosis versus disseminated Coccidioides, versus skin ulcerations which have been debrided versus possible infection. Will continue to monitor closely. Although this document has been carefully reviewed, there may still be some phonetic and other typographical errors. These errors are purely grammatical due to imperfections in the software program and should not be construed in any way to compromise the substance of the patient's medical care during this visit.
[2024-10-30] MEDS: cefTRIAXone 2 GM in SODIUM CHLORIDE 0.9% (Popper) 50 ML IV (11:22)
[2024-10-30] MEDS: DOXYCYCLINE 100 MG TABLET GT ×2 (11:22→20:09)
[2024-10-30] MEDS: RINGERS LACTATED 1000 ML 1,000 ML 999 ML IV (11:23)
--- NOTE | 2024-10-30 14:28 | PD.RESCONSUL ---
HPI Data of Consult Requesting Physician: Gui Zavala DO Admitting Provider: Juan Miguel Fields MD Attending Provider: Gui Zavala DO Primary Care Provider: Physician No Primary/Family Consult Narrative Reason for consult: tachycardia, fever History of present illness: The patient is a 29-year-old male with a previous medical history of cocaine induced vasculitis, quadriparesis, status post tracheostomy and PEG tube placement, seizure disorder. He is a subacute resident. Most of the history was gathered through chart review. According to the documentation, he is non-verbal. He was brought to the ED from subacute facility with vitals fever 101.8, tachycardia, heart rate 120, tachypnea 28 and BP 114/92, SaO2 90% on 6L FiO2 28%. Patient was recently discharged on 10/17 due to similar symptoms and was discharged back to the subacute after course of antibiotics. Labs were remarkable for WBC count 10.8, hemoglobin 11.1, platelets 309. ABG showed pH 7.52, pCO2 31, pO2 131. CT chest showed right lower lobe pneumonia. Head CT was negative for acute hemorrhage, mass effect or midline shift. EKG showed sinus tachycardia. He was admitted for HAP. He remained tachycardic throughout his admission. He was also noted to have penile discharge, culture showed gram-positive cocci. Blood culture was negative for growth after 48 hours twice. Sputum culture showed Pseudomonas aeruginosa sensitive to levofloxacin and Zosyn. Despite antibiotic therapy he remains tachycardic and feverish. Cocci IgM serology was positive. HIV antibody rapid screen was negative. He was also found to hace a necrotic ulcer over the left leg behind knee and underwent an I&D by Dr. Watts on 10/28/24. Neurology was consulted due to the concern for possible meningitis. cc:: cc: Gui Zavala DO Review of Systems Review of Systems ROS Unobtainable: unobtainable due to mental status Past Medical History Past Medical History NEUROLOGIC: Positive Neurological Disorders (cocaine-induced vasculitis) RESPIRATORY: Positive Pneumonia Surgical History SURGICAL: Positive Tracheostomy and Gastrostomy Exam Vital Signs Temp Pulse Resp BP Pulse Ox O2 Del Method O2 Flow Rate 98.1 F 108 H 19 160/105 H 100 Trach Collar 6 10/30/24 11:51 10/30/24 14:02 10/30/24 14:02 10/30/24 11:51 10/30/24 14:02 10/30/24 04:00 10/30/24 14:02 FiO2 28 10/30/24 14:02 Narrative Exam Physical Exam General: Non-verbal, non-localizing pain. S/p tracheostomy. HEENT: Normocephalic, atraumatic, mucous membranes moist, white conjunctival discharge. Heart: Tachycardic, no murmurs. Lungs: Clear to auscultation with no wheezing or crackles. Abdomen: Soft, nondistended, nontender, positive bowel sounds. ?No guarding or rebound tenderness. Neurologic: Non-verbal, positive frontal release signs (+palmomental), quadripresis, extremity contractures. Extremities: Extremities contractures. Skin: No rash or ecchymoses. Results Labs 11/02/24 04:54 11/02/24 04:54 Labs: Short CBC 10/30/24 Range/Units 05:25 WBC 9.2 (3.8-10.6) Thou/mm3 Hgb 9.5 L (13.5-16.0) g/dL Hct 28.7 L (41.0-53.0) % Plt Count 360 (140-440) Thou/mm3 BMP 10/30/24 05:25 Sodium 138 Potassium 4.0 Chloride 105 Carbon Dioxide 24.5 BUN 14 Creatinine 0.5 L Glucose 101 Calcium 9.4 Liver Function 10/30/24 Range/Units 05:25 Total Bilirubin < 0.2 L (0.3-1.2) mg/dL AST 18 (0-34) U/L ALT 18 (10-49) U/L Alkaline Phosphatase 96 (46-116) U/L Albumin 3.9 (3.5-5.0) gm/dL ABG Interpretation ABG results: 10/22/24 22:12 ABG pH 7.52 H ABG pCO2 31 L ABG pO2 131 H ABG HCO3 25 ABG O2 Saturation 100 H ABG Base Excess 3 Quality Measures Quality Measures VTE prophylaxis Medications Home Medications and Allergies Home Medications ?Medication ?Instructions ?Recorded ?Confirmed ?Type albuterol sulfate 2.5 mg/3 mL 2.5 mg inhalation Q4H PRN 10/17/24 10/23/24 History (0.083 %) solution for nebulization shortness of breath or wheezing ascorbic acid (vitamin C) 500 mg 500 mg feeding tube BID 10/17/24 10/23/24 History tablet (C-500) atorvastatin 40 mg tablet 40 mg feeding tube HS 10/17/24 10/23/24 History baclofen 20 mg tablet 20 mg feeding tube Q6HR 10/17/24 10/23/24 History gabapentin 300 mg capsule 300 mg feeding tube TID 10/17/24 10/23/24 History lactulose 10 gram/15 mL oral 10 g feeding tube QDAY 10/17/24 10/23/24 History solution (Enulose) lansoprazole 30 mg capsule,delayed 30 mg feeding tube QDAY 10/17/24 10/23/24 History release levetiracetam 100 mg/mL oral 1,000 mg feeding tube BID 10/17/24 10/23/24 History solution magnesium oxide 400 mg feeding tube BID 10/17/24 10/23/24 History midodrine 5 mg tablet 15 mg feeding tube Q8HR 10/17/24 10/23/24 History multivitamin 1 tab feeding tube QDAY 10/17/24 10/23/24 History olanzapine 5 mg tablet 5 mg feeding tube QDAY 10/17/24 10/23/24 History propranolol 10 mg tablet 10 mg feeding tube Q8H 10/17/24 10/23/24 History Allergies Allergy/AdvReac Type Severity Reaction Status Date / Time No Known Allergies Allergy Unverified 10/23/24 09:16 Visit Medications Acetaminophen (Acetaminophen Supp 650 Mg Supp) 650 mg CO Q6HR PRN PRN Reason: FEVER >100.2 Stop: 11/22/24 01:58 Last Admin: 10/29/24 03:28 Dose: 650 mg Ascorbic Acid (Ascorbic Acid 250 Mg Tablet) 500 mg GT BID [facility] Stop: 11/22/24 20:59 Last Admin: 10/30/24 08:19 Dose: 500 mg Atorvastatin Calcium (Atorvastatin Calcium 20 Mg Tablet) 40 mg GT HS [facility] Stop: 11/22/24 20:59 Last Admin: 10/29/24 21:34 Dose: 40 mg Baclofen (Baclofen 10 Mg Tablet) 20 mg GT Q6HR [facility] Stop: 11/22/24 17:59 Last Admin: 10/30/24 11:22 Dose: 20 mg Dextrose (Dextrose 50%-Water Inj 50 Ml Syringe) 25 ml IV Q15MIN PRN PRN Reason: BG 50-70 responsive npo pt Stop: 11/22/24 03:27 Last Admin: 10/23/24 11:33 Dose: 25 ml Dextrose (Dextrose 50%-Water Inj 50 Ml Syringe) 50 ml IV Q15MIN PRN PRN Reason: BG <50 OR BG <70 & pt unresponsive Stop: 11/22/24 03:27 Doxycycline Hyclate (Doxycycline 100 Mg Tablet) 100 mg GT BID [facility] Stop: 11/06/24 10:59 Last Admin: 10/30/24 11:22 Dose: 100 mg Enoxaparin Sodium (Enoxaparin Sod Inj 40 Mg/0.4 Ml Syringe) 40 mg SC QDAY [facility] Stop: 11/06/24 08:59 Last Admin: 10/30/24 08:21 Dose: 40 mg Fluconazole (Fluconazole Susp 40 Mg/Ml Ml) 800 mg PO QDAY [facility] Stop: 11/04/24 18:24 Last Admin: 10/30/24 08:23 Dose: 800 mg Gabapentin (Gabapentin 300 Mg Capsule) 300 mg GT TID [facility] Stop: 11/22/24 21:59 Last Admin: 10/30/24 14:24 Dose: 300 mg Glucagon (Glucagon Inj 1 Mg Vial) 1 mg IM Q15MIN PRN PRN Reason: BG <70, and no IV access Ceftriaxone Sodium/Dextrose (Rocephin/D5w 2gm) 2 gm in 50 mls @ 100 mls/hr IV QDAY [facility] Stop: 11/06/24 10:46 Lactulose (Lactulose Syrup 20 Gm/30 Ml Udc) 10 gm GT QDAY [facility]; Protocol Stop: 11/23/24 08:59 Last Admin: 10/30/24 08:17 Dose: 10 gm Levalbuterol HCl (Levalbuterol Rt 1.25 Mg/0.5 Ml Nebu) 1.25 mg INH Q4HRRT [facility] Stop: 11/24/24 10:59 Last Admin: 10/30/24 14:01 Dose: 1.25 mg Levetiracetam (Levetiracetam Liqd 500 Mg/5 Ml Udc) 1,000 mg GT BID [facility] Stop: 11/22/24 08:59 Last Admin: 10/30/24 08:17 Dose: 1,000 mg Magnesium Oxide (Magnesium Oxide 400 Mg Tablet) 400 mg GT BID [facility] Stop: 11/22/24 20:59 Last Admin: 10/30/24 08:19 Dose: 400 mg Metoprolol Tartrate (Metoprolol Tartrate 25 Mg Tablet) 25 mg GT BID [facility] Stop: 11/24/24 20:59 Last Admin: 10/30/24 08:22 Dose: 25 mg Multivitamins/Minerals (Multivitamin 15 Ml Udc) 15 ml GT QDAY [facility] Stop: 11/23/24 08:59 Last Admin: 10/30/24 08:22 Dose: 15 ml Olanzapine (Olanzapine 5 Mg Tablet) 5 mg GT QDAY [facility] Stop: 11/23/24 08:59 Last Admin: 10/30/24 08:20 Dose: 5 mg Sodium Chloride (Sodium Chloride Rt [place] 0.9% 3 Ml Nebu) 3 ml INH PRN PRN PRN Reason: SOLN Stop: 11/24/24 09:43 Last Admin: 10/30/24 03:16 Dose: 3 ml Discontinued Medications Acetaminophen (Acetaminophen Supp 650 Mg Supp) 650 mg CO Q6HR PRN PRN Reason: [id number] Stop: 11/22/24 01:58 Last Admin: 10/28/24 00:51 Dose: 650 mg Hydrocodone Bitart/Acetaminophen (Hydrocodone/Apap 5/325 Tablet) 1 tab GT Q6HR PRN PRN Reason: PAIN Stop: 10/30/24 08:09 Last Admin: 10/30/24 05:44 Dose: 1 tab Albuterol (Albuterol Rt 2.5 Mg/3 Ml Nebu) 2.5 mg HHN Q4H PRN PRN Reason: shortness of breath or wheezing Stop: 11/22/24 16:15 Albuterol (Albuterol Rt 2.5 Mg/0.5 Ml Nebu) 2.5 mg INH Q4HRRT PRN PRN Reason: shortness of breath or wheezin Stop: 11/22/24 16:15 Albuterol/Ipratropium (Albuterol/Ipratropium (Duoneb) Rt [place] 3 Ml Nebu) 3 ml INH X1 ONE Stop: 10/22/24 22:11 Last Admin: 10/22/24 22:34 Dose: 3 ml Balsam [place] Oil (Balsam [place] Oil (Venelex) 60 Gm Tube) 0 gm TOP DAILY [facility] Stop: 11/22/24 16:44 Last Admin: 10/29/24 08:43 Dose: 1 applicatio Fluconazole (Fluconazole Susp 10 Mg/Ml) 400 mg PO QDAY [facility] Stop: 11/04/24 18:29 Fluconazole (Fluconazole Susp 10 Mg/Ml) 800 mg PO QDAY [facility] Stop: 11/05/24 08:59 Fluconazole (Fluconazole Susp 10 Mg/Ml) 800 mg PO QDAY [facility] Stop: 11/04/24 18:24 Fluconazole (Fluconazole Susp 10 Mg/Ml) 800 mg PO X1 ONE Stop: 10/28/24 21:01 Last Admin: 10/28/24 20:19 Dose: 800 mg Lactated Ringer's (Lactated Ringers) 1,000 mls @ 999 mls/hr IV .Q1H1M ONE Stop: 10/22/24 23:08 Last Infusion: 10/23/24 00:14 Dose: Infused Lactated Ringer's (Lactated Ringers) 1,000 mls @ 75 mls/hr IV .[id number] [facility] Stop: 11/21/24 22:09 Last Admin: 10/28/24 07:11 Dose: Not Given Piperacillin/Tazobactam/Dextrose (Zosyn) 3.375 gm in 50 mls @ 100 mls/hr IV X1 ONE Stop: 10/22/24 22:40 Last Infusion: 10/22/24 23:06 Dose: Infused Doxycycline Hyclate 100 mg/ (Sodium Chloride) 100 mls @ 100 mls/hr IV X1 ONE Stop: 10/22/24 23:10 Last Infusion: 10/23/24 00:54 Dose: Infused Magnesium Sulfate (Magnesium Sulfate Ivpb) 4 gm in 50 mls @ 12.5 mls/hr IV X1 ONE Stop: 10/23/24 03:23 Last Infusion: 10/23/24 04:44 Dose: Infused Sodium Chloride (Ns) 1,000 mls @ 75 mls/hr IV .[id number] [facility] Stop: 11/22/24 01:59 Last Admin: 10/23/24 03:10 Dose: Not Given Piperacillin/Tazobactam/Dextrose (Zosyn) 3.375 gm in 50 mls @ 100 mls/hr IV Q6HR [facility] Stop: 10/30/24 02:04 Last Admin: 10/25/24 05:33 Dose: 100 mls/hr Levofloxacin/Dextrose (Levaquin Ivpb) 750 mg in 150 mls @ 100 mls/hr IV QDAY [facility] Stop: 10/31/24 08:59 Levofloxacin/Dextrose (Levaquin Ivpb) 750 mg in 150 mls @ 100 mls/hr IV X1 ONE Stop: 10/23/24 03:44 Last Admin: 10/23/24 03:57 Dose: 100 mls/hr Vancomycin/Sodium Chloride (Vancomycin/Ns 1 Gm Ivpb) 200 mls @ 120 mls/hr IV X1 ONE Stop: 10/23/24 09:39 Last Admin: 10/23/24 08:44 Dose: 120 mls/hr Vancomycin/Sodium Chloride (Vancomycin/Ns 1 Gm Ivpb) 200 mls @ 120 mls/hr IV BID@1000,2200 [facility]; Protocol Stop: 10/30/24 21:59 Lactated Ringer's (Lactated Ringers) 500 mls @ 250 mls/hr IV .Q2H ONE Stop: 10/24/24 04:33 Last Admin: 10/24/24 02:49 Dose: 250 mls/hr Lactated Ringer's (Lactated Ringers) 500 mls @ 999 mls/hr IV .Q31M ONE Stop: 10/24/24 06:41 Last Admin: 10/24/24 06:19 Dose: 999 mls/hr Sodium Chloride (Ns) 500 mls @ 999 mls/hr IV .Q31M ONE Stop: 10/24/24 12:59 Last Admin: 10/24/24 12:45 Dose: 999 mls/hr Lactated Ringer's (Lactated Ringers) 1,000 mls @ 999 mls/hr IV .Q1H1M ONE Stop: 10/25/24 11:53 Last Admin: 10/25/24 11:02 Dose: 999 mls/hr Piperacillin/Tazobactam/Dextrose (Zosyn) 3.375 gm in 50 mls @ 12.5 mls/hr IV Q8H [facility] Stop: 11/01/24 11:14 Last Admin: 10/25/24 14:50 Dose: Not Given Piperacillin Sod/Tazobactam (Sod 4.5 gm/ Sodium Chloride) 100 mls @ 200 mls/hr IV Q6HR [facility] Stop: 11/01/24 11:20 Last Admin: 10/30/24 05:44 Dose: 200 mls/hr Vancomycin/Sodium Chloride (Vancomycin/Ns 1 Gm Ivpb) 200 mls @ 200 mls/hr IV Q12H [facility]; Protocol Stop: 11/01/24 21:59 Last Admin: 10/26/24 21:29 Dose: 200 mls/hr Vancomycin/Sodium Chloride (Vancomycin/Ns 1 Gm Ivpb) 200 mls @ 200 mls/hr IV X1 ONE Stop: 10/25/24 13:14 Last Admin: 10/25/24 12:36 Dose: 200 mls/hr Magnesium Sulfate (Magnesium Sulfate Ivpb) 4 gm in 50 mls @ 12.5 mls/hr IV X1 ONE Stop: 10/25/24 16:01 Last Admin: 10/25/24 12:27 Dose: 12.5 mls/hr Sodium Chloride (Ns) 1,000 mls @ 50 mls/hr IV .Q20H [facility] Stop: 11/25/24 01:02 Last Admin: 10/30/24 08:22 Dose: 50 mls/hr Sodium Chloride (Ns) 1,000 mls @ 999 mls/hr IV .Q1H1M ONE Stop: 10/26/24 12:17 Last Admin: 10/26/24 11:22 Dose: 999 mls/hr Sodium Chloride (Ns) 500 mls @ 999 mls/hr IV .Q31M ONE Stop: 10/26/24 13:25 Last Admin: 10/26/24 15:34 Dose: 999 mls/hr Vancomycin HCl/Dextrose (Vancomycin/D5w 1,250 Mg Ivpb) 250 mls @ 120 mls/hr IV Q12H [facility]; Protocol Stop: 11/03/24 09:59 Last Admin: 10/29/24 21:35 Dose: 120 mls/hr Lactated Ringer's (Lactated Ringers) 500 mls @ 999 mls/hr IV .Q31M ONE Stop: 10/29/24 03:36 Last Admin: 10/29/24 03:28 Dose: 999 mls/hr Lactated Ringer's (Lactated Ringers) 500 mls @ 999 mls/hr IV .Q31M ONE Stop: 10/30/24 11:22 Last Admin: 10/30/24 11:23 Dose: 999 mls/hr Ceftriaxone Sodium 2 gm/ (Sodium Chloride) 50 mls @ 100 mls/hr IV X1 ONE Stop: 10/30/24 11:29 Last Admin: 10/30/24 11:22 Dose: 100 mls/hr Sodium Chloride (Ns) 500 mls @ 999 mls/hr IV .Q31M ONE Stop: 10/30/24 14:17 Ibuprofen (Ibuprofen Susp 100 Mg/5 Ml Udc) 400 mg GT X1 ONE Stop: 10/22/24 22:06 Last Admin: 10/22/24 22:39 Dose: 400 mg Lidocaine HCl (Lidocaine Hcl 1% 20 Ml Vial) 20 ml IM X1 ONE Stop: 10/28/24 11:45 Last Admin: 10/28/24 11:55 Dose: 6 ml Metoprolol Succinate (Metoprolol Succinate Xl 25 Mg Tabcr) 25 mg PO QDAY [facility] Stop: 11/25/24 08:59 Metoprolol Tartrate (Metoprolol Tartrate Inj 1 Mg/Ml Amp 5 Ml) 5 mg IVP X1 ONE Stop: 10/25/24 10:54 Last Admin: 10/25/24 11:06 Dose: 5 mg Metoprolol Tartrate (Metoprolol Tartrate Inj 1 Mg/Ml Amp 5 Ml) 5 mg IVP X1 ONE Stop: 10/26/24 01:00 Last Admin: 10/28/24 07:10 Dose: Not Given Metoprolol Tartrate (Metoprolol Tartrate Inj 1 Mg/Ml Amp 5 Ml) 5 mg IVP X1 ONE Stop: 10/27/24 03:02 Last Admin: 10/27/24 03:14 Dose: 5 mg Morphine Sulfate (Morphine Sulf Inj 10 Mg/Ml Vial) 2 mg IVP Q4HR ST[facility] Stop: 10/26/24 01:04 Last Admin: 10/28/24 07:10 Dose: Not Given Morphine Sulfate (Morphine Sulf Inj 10 Mg/Ml Vial) 2 mg IVP X1 STA Stop: 10/26/24 01:17 Last Admin: 10/26/24 01:30 Dose: 2 mg Morphine Sulfate (Morphine Sulf Inj 10 Mg/Ml Vial) 2 mg IVP X1 ONE Stop: 10/29/24 03:13 Last Admin: 10/29/24 03:27 Dose: 2 mg Pharmacy Consult (Vancomycin Pharmacy To Dose 1 Each Each) 1 each IV QDAY PRN PRN Reason: PROTOCOL Stop: 11/22/24 02:04 Pharmacy Consult (Vancomycin Pharmacy To Dose 1 Each Each) 1 each IV QDAY [facility] Stop: 11/24/24 11:29 Last Admin: 10/30/24 08:24 Dose: Not Given Propranolol HCl (Propranolol 10 Mg Tablet) 10 mg GT Q8H [facility] Stop: 11/24/24 10:49 Last Admin: 10/25/24 14:50 Dose: Not Given Sodium Chloride (Sodium Chloride Rt 10% 15 Ml Nebu) 5 ml INH X1 ONE Stop: 10/22/24 22:01 Last Admin: 10/22/24 22:35 Dose: Not Given Sodium Chloride (Sodium Chloride Rt [place] 0.9% 3 Ml Nebu) 3 ml INH Q4HRRT PRN PRN Reason: WITH ALBUTEROL Stop: 11/22/24 16:30 Last Admin: 10/26/24 03:40 Dose: 3 ml Assessment & Plan Plan The patient is a 29-year-old male with a previous medical history of cocaine induced vasculitis, quadriparesis, status post tracheostomy and PEG tube placement, seizure disorder. He is a subacute resident. He was brought to the ED from subacute facility with vitals fever 101.8, tachycardia, heart rate 120, tachypnea 28 and BP 114/92, SaO2 90% on 6L FiO2 28%. #Suspected infectious meningitis #Cocaine induced vasculitis Patient has a persistent elevated WBC, tachycardia and fevers. His symptoms did not improve with antibiotics course. He also underwent pressure ulcer I&D. CT was concerning for possible hypodensities that could be due to inflammatory process. Plan: - LP done, CSF studies pending - continue with antibiotics and fluconazole #Seizure disorder Patient has a history of seizures. Stable. Plan: - continue Keppra #Pseudomonas pneumonia #Urogenital infection #Sinus tachycardia #Sacral and lower extremity pressure ulcers #Agitation #History of PEG tube dependence #History of GERD #History of hypotension - management per primary team Plan of care discussed with attending Dr. Burns. Katia Brody MD, PGY 1. Attending Provider Attestation/Addendum Slowly have seen and examined the patient at the bedside and I agreed with resident's findings, assessment and plan of care CSF analysis was unremarkable
[2024-10-30] MEDS: SODIUM CHLORIDE 0.9% 500 ML 500 ML 999 ML IV (14:32)
[2024-10-30] MEDS: ATORVASTATIN CALCIUM 20 MG TABLET 40 MG GT (20:09)
[2024-10-30 21:54] LABS: Coccid Serology, CF CSF (UCD)* See Sep Rpt
[2024-10-30 22:41] LABS: Glucose,CSF 51 mg/dL (40-70); Protein Total,CSF 48 mg/dL (8-32)
[2024-10-30 23:39] LABS: CSF Cell Count Tube # Tube # 4; CSF Color Colorless (Colorless)
[2024-10-30 23:40] LABS: CSF Mononuclear 63 %; CSF Red Blood Cell 25 /cmm; CSF White Blood Cell 3 /cmm
[2024-10-30 23:41] LABS: CSF, Appearance Clear (Clear)
[2024-10-30 23:42] LABS: CSF Polynuclear WBC 37 %
--- NOTE | 2024-10-30 23:55 | PD.EVENT ---
Documentation for date of: 10/30/24 Date of procedure: 10/30/24 Pre-op diagnosis: FUO Post-op diagnosis: Same Consent signed by: MOTHER Position: lateral decubitus Prep: betadine Anesthesia: 1 % Lidocaine Sedation: none Needle size: 22ga Needle length: 3.5 Interspace: L4-5 Number of attempts: 3 Opening pressure: # cm H2O (13) Fluids mLs collected: 12 Fluid description: clear Complications: No Procedure performed by: Maurizio Burns Condition: Stable Disposition: no change
[2024-10-30 23:56] LABS: CSF Gram Stain Alert Gram Stain Completed
[2024-10-31] VITALS (15 sets, daily range): BP systolic 117–142; BP diastolic 82–89; PULSE 99–153; RESP 17–33; TEMP 36.2–37.3; O2SAT 98–100
[2024-10-31] MEDS: LEVALBUTEROL RT 1.25 MG/0.5 ML NEBU INH ×2 (02:33→06:43)
[2024-10-31] MEDS: BACLOFEN 10 MG TABLET 20 MG GT ×4 (05:15→23:16)
[2024-10-31] MEDS: GABAPENTIN 300 MG CAPSULE GT ×3 (05:15→21:20)
[2024-10-31] MEDS: SODIUM CHLORIDE 0.9% 500 ML 500 ML 999 ML IV (05:40)
[2024-10-31 05:58] LABS: Basophils % (Auto) 0 % (0-2.5); Eosinophils # (Auto) 0.1 Thou/mm3 (0.0-0.5); Eosinophils % (Auto) 1 % (0-10); Hematocrit 28.3 % (41.0-53.0); Hemoglobin 9.4 g/dL (13.5-16.0); Immature Granulocytes % (Auto) 0 % (0-0); Immature Granulocytes Auto 0.05 Thou/mm3 (0.00-0.00); Lymphocytes # (Auto) 0.9 Thou/mm3 (1.0-4.8); Lymphocytes % (Auto) 8 % (10-50); Mean Corpuscular HGB Conc 33.2 g/dl (31.0-37.0); Mean Corpuscular Hemoglobin 28.9 pg (25.0-35.0); Mean Corpuscular Volume 87 fL (80-100); Monocytes # (Auto) 1.1 Thou/mm3 (0.0-0.8); Monocytes % (Auto) 9 % (0-12); Neutrophils # (Auto) 9.8 Thou/mm3 (1.8-7.7); Neutrophils % (Auto) 82 % (37-80); Nucleated Red Blood Cell % 0 /100 WBC (0); Platelet Count 354 Thou/mm3 (140-440); RDW Standard Deviation 49.3 fL (35.1-43.9); Red Blood Count 3.25 Miln/mm3 (4.50-5.90)
[2024-10-31 06:25] LABS: Alanine Aminotransferase 19 U/L (10-49); Albumin/Globulin Ratio 1.1 (1.2-2.2); Alkaline Phosphatase 100 U/L (46-116); Anion Gap 12 (7-16); Aspartate Amino Transferase 22 U/L (0-34); BUN/Creatinine Ratio 16 Ratio (12-20); Bilirubin,Total < 0.2 mg/dL (0.3-1.2); Blood Urea Nitrogen 8 mg/dL (9-23); Calcium 9.3 mg/dL (8.3-10.6); Calcium (Corrected) 9.3 mg/dL (8.5-10.1); Carbon Dioxide 23.3 mMol/L (20.0-31.0); Chloride 101 mMol/L (98-107); Creatinine (Component) 0.5 mg/dL (0.6-1.3); Estimated Creatinine Clearance 162.1 mL/min (>60); Globulin 3.6 gm/dL (2.3-3.5); Glucose 97 mg/dL (74-106); Osmolality,Calculated 270 (275-295); Potassium 4.1 mMol/L (3.4-5.1); Sodium 136 mMol/L (136-145); Total Protein 7.6 gm/dL (5.7-8.2); eGFR > 60 See Note
[2024-10-31] MEDS: SODIUM CHLORIDE RT SOL 0.9% 3 ML NEBU INH (06:43)
[2024-10-31] MEDS: SODIUM CHLORIDE 0.9% 1000 ML 1,000 ML 999 ML IV (09:16)
[2024-10-31] MEDS: ASCORBIC ACID 250 MG TABLET 500 MG GT ×2 (09:17→21:20)
[2024-10-31] MEDS: METOPROLOL TARTRATE 25 MG TABLET GT (09:17)
[2024-10-31] MEDS: OLANZapine 5 MG TABLET GT (09:17)
[2024-10-31] MEDS: MAGNESIUM OXIDE 400 MG TABLET GT ×2 (09:17→21:21)
[2024-10-31] MEDS: DOXYCYCLINE 100 MG TABLET GT ×2 (09:17→21:20)
[2024-10-31] MEDS: FLUCONAZOLE SUSP 40 MG/ML ML 800 MG PO (09:18)
[2024-10-31] MEDS: LACTULOSE SYRUP 20 GM/30 ML UDC 10 GM GT (09:18)
[2024-10-31] MEDS: ENOXAPARIN SOD INJ 40 MG/0.4 ML SYRINGE SC (09:18)
[2024-10-31] MEDS: MULTIVITAMIN 15 ML UDC GT (09:18)
[2024-10-31] MEDS: levETIRAcetam LIQD 500 MG/5 ML UDC 1000 MG GT ×2 (09:18→21:20)
[2024-10-31] MEDS: SODIUM CHLORIDE 0.9% 1000 ML 1,000 ML 100 ML IV ×2 (09:19→21:22)
[2024-10-31] MEDS: cefTRIAXone/D5w 2gm 2 GM/50 ML BAG IV (09:19)
[2024-10-31] MEDS: guaiFENesin SYRUP 200 MG/10 ML UDC 100 MG PO ×2 (09:39→21:20)
--- NOTE | 2024-10-31 10:29 | XR_ITS ---
Examination: AP chest single view Technique one AP portable semiupright chest single view Date and time: October 31, 2024 1053 hours Comparison October 26, 2024 INDICATIONS: Congestion FINDINGS: Suspicious for early left base pneumonia Normal heart size Right lung clear Tracheostomy tube tip 4.5 cm above nahid IMPRESSION: Suspicious for early left base pneumonia
[2024-10-31] MEDS: LEVALBUTEROL RT 1.25 MG/0.5 ML NEBU 0.31 MG INH (10:35)
[2024-10-31] MEDS: SODIUM CL RT SOL 3% 4 ML NEBU (NON-FORMULARY) INH ×4 (10:36→22:32)
--- NOTE | 2024-10-31 10:43 | PD.RESPRO ---
Documentation for date of: 10/31/24 Subjective Subjective Interval history: Patient was seen and examined at bedside this morning. Overnight patient was tachycardic again in the 140s, but he does not spike any fevers. This morning patient was still very tachycardic and he had a total balance of -4 L in the past 24 hours. He has been having a lot of urine output. history of BC that spiked to 12 from 9.2 yesterday, but this was most likely reactive after he got the LP yesterday. His chemistry panel looked fairly unremarkable. CSF was fairly unremarkable. Patient was resting peacefully in bed and sounded clear today with only upper airway conngestion. Exam Vital Signs Temp Pulse Resp BP Pulse Ox O2 Del Method O2 Flow Rate 98.2 F 130 H 20 140/89 H 99 Trach Collar 6 10/31/24 08:00 10/31/24 10:36 10/31/24 10:36 10/31/24 09:17 10/31/24 10:36 10/31/24 08:00 10/31/24 10:36 FiO2 28 10/31/24 10:36 Narrative Exam General: Quadriplegic, non verbal, no apparent acute distress, a not able to track Eyes: PERRL, EOMI. Anicteric Ears: No visible nasal discharge Nose: No visible nasal discharge. Mouth/Throat: Dry mucous membranes, no redness, no lesions. Neck: Neck supple, no cervical lymphadenopathy. Lungs: Clear WES, but upper airway congestion noted, tracheostomy in place copious secretion Cardio: Normal S1/S2, regular rhythm, tachycardic no murmurs, no JVD or carotid bruits Abdomen: Soft, no palpable masses, peristalsis present, no guarding or rebound, PEG tube in place without any bleeding or discharge. Extremities: Contractures of bilateral upper and lower extremities, no peripheral swelling, good capillary refills Skin: Dry and warm, Neuro: Cannot be appropriately assessed given patient is current condition. Pupils were reactive. Objective Labs 11/01/24 04:52 11/01/24 04:52 Labs: Laboratory Results - last 24 hr 10/29/24 10/30/24 10/30/24 21:10 09:54 21:10 WBC RBC Hgb Hct MCV MCH MCHC RDW Std Deviation Plt Count Neut % (Auto) Lymph % (Auto) [place] % (Auto) Eos % (Auto) Baso % (Auto) Neut # (Auto) Lymph # (Auto) [place] # (Auto) Eos # (Auto) Baso # (Auto) Immature Gran # (Auto) Absolute Nucleated RBC Immature Gran % Nucleated RBC % Sodium Potassium Chloride Carbon Dioxide Anion Gap BUN Creatinine Estim Creat Clear Calc eGFR BUN/Creatinine Ratio Glucose Calculated Osmolality Calcium Corrected Calcium Total Bilirubin AST ALT Alkaline Phosphatase Total Protein Albumin Globulin Albumin/Globulin Ratio CSF Appearance Cancelled Clear CSF Color Cancelled Colorless CSF WBC Cancelled 3 CSF RBC Cancelled 25 CSF Cell Count Tube # Cancelled Tube # 4 CSF Mononuclear WBCs Cancelled 63 CSF Polynuclear WBCs Cancelled 37 CSF Diff Comment Cancelled CSF Glucose Cancelled 51 CSF Total Protein Cancelled 48 H Vancomycin Trough 13.5 H Misc Test Result Cancelled 10/31/24 05:04 WBC 12.0 H RBC 3.25 L Hgb 9.4 L Hct 28.3 L MCV 87 MCH 28.9 MCHC 33.2 RDW Std Deviation 49.3 H Plt Count 354 Neut % (Auto) 82 H Lymph % (Auto) 8 L [place] % (Auto) 9 Eos % (Auto) 1 Baso % (Auto) 0 Neut # (Auto) 9.8 H Lymph # (Auto) 0.9 L [place] # (Auto) 1.1 H Eos # (Auto) 0.1 Baso # (Auto) 0.0 Immature Gran # (Auto) 0.05 H Absolute Nucleated RBC 0.00 Immature Gran % 0 Nucleated RBC % 0 Sodium 136 Potassium 4.1 Chloride 101 Carbon Dioxide 23.3 Anion Gap 12 BUN 8 L Creatinine 0.5 L Estim Creat Clear Calc 162.1 eGFR > 60 BUN/Creatinine Ratio 16 Glucose 97 Calculated Osmolality 270 L Calcium 9.3 Corrected Calcium 9.3 Total Bilirubin < 0.2 L AST 22 ALT 19 Alkaline Phosphatase 100 Total Protein 7.6 Albumin 4.0 Globulin 3.6 H Albumin/Globulin Ratio 1.1 L CSF Appearance CSF Color CSF WBC CSF RBC CSF Cell Count Tube # CSF Mononuclear WBCs CSF Polynuclear WBCs CSF Diff Comment CSF Glucose CSF Total Protein Vancomycin Trough Misc Test Result ABG Interpretation ABG results: 10/22/24 22:12 ABG pH 7.52 H ABG pCO2 31 L ABG pO2 131 H ABG HCO3 25 ABG O2 Saturation 100 H ABG Base Excess 3 Quality Measures Quality Measures VTE prophylaxis Assessment & Plan Assessment Current Active Medications: Generic Name Dose Route Start Last Admin Trade Name Freq PRN Reason Stop Dose Admin Acetaminophen 650 mg 10/29/24 03:07 10/29/24 03:28 Acetaminophen Supp 650 Mg Supp [place] 11/22/24 01:58 650 mg Q6HR PRN Administration FEVER >100.2 Ascorbic Acid 500 mg 10/23/24 21:00 10/31/24 09:17 Ascorbic Acid 250 Mg Tablet GT 11/22/24 20:59 500 mg BID RADHA Administration Atorvastatin Calcium 40 mg 10/23/24 21:00 10/30/24 20:09 Atorvastatin Calcium 20 Mg Tablet GT 11/22/24 20:59 40 mg HS RADHA Administration Baclofen 20 mg 10/23/24 18:00 10/31/24 05:15 Baclofen 10 Mg Tablet GT 11/22/24 17:59 20 mg Q6HR RADHA Administration Dextrose 25 ml 10/23/24 03:28 10/23/24 11:33 Dextrose 50%-Water Inj 50 Ml Syringe IV 11/22/24 03:27 25 ml Q15MIN PRN Administration BG 50-70 responsive npo pt Dextrose 50 ml 10/23/24 03:28 Dextrose 50%-Water Inj 50 Ml Syringe IV 11/22/24 03:27 Q15MIN PRN BG <50 OR BG <70 & pt unresponsive Doxycycline Hyclate 100 mg 10/30/24 11:00 10/31/24 09:17 Doxycycline 100 Mg Tablet GT 11/06/24 10:59 100 mg BID RADHA Administration Enoxaparin Sodium 40 mg 10/23/24 09:00 10/31/24 09:18 Enoxaparin Sod Inj 40 Mg/0.4 Ml Syringe SC 11/06/24 08:59 40 mg QDAY RADHA Administration Fluconazole 800 mg 10/28/24 18:26 10/31/24 09:18 Fluconazole Susp 40 Mg/Ml Ml PO 11/04/24 18:24 800 mg QDAY RADHA Administration Gabapentin 300 mg 10/23/24 22:00 10/31/24 05:15 Gabapentin 300 Mg Capsule GT 11/22/24 21:59 300 mg TID RADHA Administration Glucagon 1 mg 10/23/24 03:28 Glucagon Inj 1 Mg Vial IM Q15MIN PRN BG <70, and no IV access Guaifenesin 100 mg 10/31/24 09:45 10/31/24 09:39 Guaifenesin Syrup 200 Mg/10 Ml Udc PO 11/30/24 09:44 100 mg BID RADHA Administration Protocol Sodium Chloride 1,000 mls @ 100 mls/hr 10/31/24 09:15 10/31/24 09:19 Ns IV 11/01/24 05:14 100 mls/hr .Q10H RADHA Administration Piperacillin/Tazobactam/Dextrose 3.375 gm in 50 mls @ 12.5 mls/hr 10/31/24 22:00 Zosyn IV 11/07/24 21:59 Q8HR RADHA Piperacillin/Tazobactam/Dextrose 3.375 gm in 50 mls @ 100 mls/hr 10/31/24 10:45 Zosyn IV 10/31/24 11:14 X1 ONE Lactulose 10 gm 10/24/24 09:00 10/31/24 09:18 Lactulose Syrup 20 Gm/30 Ml Udc GT 11/23/24 08:59 10 gm QDAY RADHA Administration Protocol Levalbuterol HCl 0.63 mg 10/31/24 10:39 Levalbuterol Rt 0.63 Mg/3 Ml Nebu INH 11/30/24 10:59 Q4HRRT PRN Bronchospasm Levetiracetam 1,000 mg 10/23/24 09:00 10/31/24 09:18 Levetiracetam Liqd 500 Mg/5 Ml Udc GT 11/22/24 08:59 1,000 mg BID RADHA Administration Magnesium Oxide 400 mg 10/23/24 21:00 10/31/24 09:17 Magnesium Oxide 400 Mg Tablet GT 11/22/24 20:59 400 mg BID RADHA Administration Metoprolol Tartrate 25 mg 10/25/24 21:00 10/31/24 09:17 Metoprolol Tartrate 25 Mg Tablet GT 11/24/24 20:59 25 mg BID RADHA Administration Multivitamins/Minerals 15 ml 10/24/24 09:00 10/31/24 09:18 Multivitamin 15 Ml Udc GT 11/23/24 08:59 15 ml QDAY RADHA Administration Olanzapine 5 mg 10/24/24 09:00 10/31/24 09:17 Olanzapine 5 Mg Tablet GT 11/23/24 08:59 5 mg QDAY RADHA Administration Sodium Chloride 4 ml 10/31/24 11:00 10/31/24 10:36 Sodium Cl Rt [place] 3% 4 Ml Nebu (Non-Formulary) INH 11/30/24 10:59 4 ml Q4HRRT RADHA Administration Plan 29-year-old male with past medical history of cocaine induced vasculitis, chronically trach and PEG, chronic quadriplegia, and history of seizure. He was admitted to the hospital on 10/23/2024 due to possible healthcare associated pneumonia. #Acute encephalopathy #Cocci meningitis? CT head performed relatively unremarkable, no acute intracranial pathology noted LP done yesterday, but was not revealing. Plan: ? Continue fluconazole suspension through PEG tube, 800 mg daily, will titrate dose as necessary, QTc not prolonged ?Pending CSF culture and viral studies. ? Neurology consulted, appreciate recommendations #Community-acquired pneumonia #Coccidiomycosis #Proteus mirabilis #Pseudomonas aeruginosa #Urogenital infection, Klebsiella pneumonia and Proteus mirabilis Patient was having some penile discharge and with noticed by manage therefore cultures grew Klebsiella and Proteus mirabilis on 10/27/2024 Patient had a course of Zosyn and vancomycin (10/23-10/30) and ceftriaxone (10/30/2024 - 10/31/2024) Patient's blood cultures have been negative and urine culture was also negative. Patient has been afebrile and diabetes had been downtrending, but up trended today likely reactive to the LP. Patient still has some secretions in the tracheostomy Patient still very tachycardic Plan: ?Started Zosyn 3.325 every 8 (10/31/2024?) ? Doxycycline 100 mg GT twice daily (10/30-) ? Fluconazole 800 mg daily ?ID consulted, appreciate commendations #Sinus tachycardia vs SVT EKG on 10/25 with significant artifact but HR 158. Possibly secondary to infectious etiology Patient has still been very tachycardic this could be also due to dehydration as he has been having a lot of urine output. Plan: ? Switch metoprolol to tartrate to succinate 50 mg daily ? 1 L NS bolus and 2 L of maintenance fluids at 100 cc ? Replete electrolytes as necessary #History of seizure disorder EEG did not show any epileptiform activity, however this does not rule out seizures. If the patient is seizing, likely secondary to underlying cause lowering seizure threshold such as infections above. ? Continue Keppra 1000 mg BID #Skin ulcerations on lower extremities and sacrum ? General Surgery consulted, bedside debridement performed ? Will continue Doxycycline #Agitation ? Olanzapine 5 mg daily #History of PEG tube dependence ? Ascorbic acid 500 mg BID ? Atorvastatin 40 mg HS #History of quadriplegia ? Gabapentin 300 mg TID ? Baclofen 20 mg q6hr #History of hypotension ? Holding midodrine 15 mg TID as BP has been stable Disposition: Pending ID and neuro recs Diet: TF Jevity 1.2 at 65 mL/h for 24 hours via G-tube by pump. GI prophylaxis: not indicated DVT prophylaxis: lovenox Code: DNR Case disclosed with Attending Dr. Carlos Holland PGY1 Attending Provider Attestation/Addendum I reviewed labs, imaging, EKG, home medications and prior available records. Face to face evaluation was performed by me. I have personally examined the patient and discussed assessment and plan with the IM team. I reviewed the resident note and agree with the plan with exceptions as below. Cocaine induced vasculitis Chronic encephalopathy Chronic hypoxic respiratory failure status post tracheostomy Status post PEG tube placement Acute febrile illness Right lower lobe pneumonia cocci pneumonia Seizure disorder Developed sinus tachycardia. Gave IV fluids. Ordered chest x-ray that showed left-sided pneumonia Ordered CTA that showed no acute PE. Tachycardia improved after IV hydration and metoprolol Continue IV Zosyn Continue fluconazole Discharge culture grew Klebsiella and Proteus Consulted ID for antibiotic guidance Continue oxygen via tracheostomy Tylenol as needed for fevers Resume home seizure medications
[2024-10-31] MEDS: PIPER/TAZO 3.375 GM PREMIX 3.375 GM/50 ML BAG IV ×2 (11:02→21:20)
--- NOTE | 2024-10-31 11:18 | PC.SS ---
SS follow up note; Cultures pending, patient will return back to [facility]Subacute when medically cleared.
[2024-10-31] MEDS: METOPROLOL SUCCINATE XL 25 MG TABCR 50 MG PO (12:20)
--- NOTE | 2024-10-31 13:51 | XR_ITS ---
Examination: CTA chest with intravenous contrast 2-D reconstructions 3-D reconstructions, vascular Date and time of exam: October 31, 2024 1634 hours INDICATIONS: Persistent tachycardia shortness of breath congestion chest pain this week CTDI: vol (mGy) 7.47 DLP: (mGycm) 262 Technique: Multiple axial sections of the thorax have been obtained. 3 mm slice thickness, from below the hemidiaphragms to above the apices of the lungs. Mediastinal and lung density settings have been obtained. 2-D sagittal and coronal reconstructions. 3-D angiographic renderings, 3-D volume renderings, 3D post processing, vascular maximum intensity projections obtained. Contrast administered is 100 cc Isovue-370. Low dose protocols were performed. One or more of the following dose reduction techniques were used; automated exposure control, adjustment of the mA and/or KV according to patient size, use of iterative reconstruction technique. Findings: Tracheal tube tip 4 cm above nahid No thoracic aortic aneurysm dilatation Pulmonary artery segments are not enlarged No pulmonary artery filling defects No paratracheal tracheobronchial or bronchopulmonary adenopathy 5 bilateral subcentimeter pulmonary nodules ranging in size from 2 to 7 mm which may be postinfectious No pulmonary edema No visualized liver or splenic lesion Contracted gallbladder No pancreatic mass Kidneys partially visualized no hydronephrosis IMPRESSION: Negative for pulmonary artery emboli Small soft nodular densities in both lungs most consistent with pneumonia or infectious process
--- NOTE | 2024-10-31 14:16 | PD.IDPROG ---
Subjective Subjective Interval history: on semi empiric abx. is in subacute so chance of cocci exposure there is low. no cocci meningitis listed on problem list. current csf benign. Exam Vital Signs Temp Pulse Resp BP Pulse Ox O2 Del Method O2 Flow Rate 98.2 F 151 H 32 H 142/83 H 99 Trach Collar 10 10/31/24 08:00 10/31/24 12:20 10/31/24 10:36 10/31/24 12:20 10/31/24 10:36 10/31/24 08:00 10/31/24 10:36 FiO2 40 10/31/24 10:36 Objective - Internal Medicine Labs 10/31/24 05:04 10/31/24 05:04 Labs: Laboratory Results - last 24 hr 10/29/24 10/30/24 10/31/24 21:10 21:10 05:04 WBC 12.0 H RBC 3.25 L Hgb 9.4 L Hct 28.3 L MCV 87 MCH 28.9 MCHC 33.2 RDW Std Deviation 49.3 H Plt Count 354 Neut % (Auto) 82 H Lymph % (Auto) 8 L [place] % (Auto) 9 Eos % (Auto) 1 Baso % (Auto) 0 Neut # (Auto) 9.8 H Lymph # (Auto) 0.9 L [place] # (Auto) 1.1 H Eos # (Auto) 0.1 Baso # (Auto) 0.0 Immature Gran # (Auto) 0.05 H Absolute Nucleated RBC 0.00 Immature Gran % 0 Nucleated RBC % 0 Sodium 136 Potassium 4.1 Chloride 101 Carbon Dioxide 23.3 Anion Gap 12 BUN 8 L Creatinine 0.5 L Estim Creat Clear Calc 162.1 eGFR > 60 BUN/Creatinine Ratio 16 Glucose 97 Calculated Osmolality 270 L Calcium 9.3 Corrected Calcium 9.3 Total Bilirubin < 0.2 L AST 22 ALT 19 Alkaline Phosphatase 100 Total Protein 7.6 Albumin 4.0 Globulin 3.6 H Albumin/Globulin Ratio 1.1 L CSF Appearance Cancelled Clear CSF Color Cancelled Colorless CSF WBC Cancelled 3 CSF RBC Cancelled 25 CSF Cell Count Tube # Cancelled Tube # 4 CSF Mononuclear WBCs Cancelled 63 CSF Polynuclear WBCs Cancelled 37 CSF Diff Comment Cancelled CSF Glucose Cancelled 51 CSF Total Protein Cancelled 48 H Misc Test Result Cancelled ABG Interpretation ABG results: 10/22/24 22:12 ABG pH 7.52 H ABG pCO2 31 L ABG pO2 131 H ABG HCO3 25 ABG O2 Saturation 100 H ABG Base Excess 3 Assessment & Plan A&P Narrative possible cocci pos IgM locally. drug induced encephalopathy by hx hld by meds chronic resp failure due to #2 not overtly worse cxr looks neg to me ok to add flucon to regimen, but csf glucose normal, and cocci meningitis is not on prior problem list or admitting database. cxr neg. so doubt current issue is cocci or pneumonia related despite radiology opinion. so empiric flucon at 400/day ok. pending test at [facility] role of zosyn may be minimal, as pe may be more likely, cocci if present is very early and this would be one of the first pts with cocci w/o ever leaving the facility he is tachy at baseline too, so keep that in mind. zosyn and rocephin are very similar too and will likely look at all enteral regimen by tuesday if w/u fails to show an overt infection. overall, problem less likely to be an antibiotic shortage, but the change back to zosyn is noted. Time Spent With Patient Time: Total time spent is greater than 50% in coordination of care (as documented) at patient's floor/unit and/or counseling patient:
[2024-10-31] MEDS: LEVALBUTEROL RT 0.63 MG/3 ML NEBU INH (15:08)
--- NOTE | 2024-10-31 15:16 | ESPR_ITS ---
Documentation for date of: 10/31/24 Subjective Subjective Interval history: Patient was seen and examined by the bedside. No acute overnight events. Afebrile throughout the night. Patient is laying in the bed, saturating well on blow-by 10L. Continues to be tachycardic. CSF studies are unremarkable, VDRL and viral panel is pending. Exam Vital Signs Temp Pulse Resp BP Pulse Ox O2 Del Method O2 Flow Rate 98.9 F 136 H 30 H 142/83 H 99 Trach Collar 10 10/31/24 12:00 10/31/24 15:09 10/31/24 15:09 10/31/24 12:20 10/31/24 15:09 10/31/24 12:00 10/31/24 15:09 FiO2 40 10/31/24 15:09 Narrative Exam Physical Exam General: Non-verbal, non-localizing pain. S/p tracheostomy. HEENT: Normocephalic, atraumatic, mucous membranes moist, white conjunctival discharge. Heart: Tachycardic, no murmurs. Lungs: Clear to auscultation with no wheezing or crackles. Abdomen: Soft, nondistended, nontender, positive bowel sounds. ?No guarding or rebound tenderness. Neurologic: Non-verbal, positive frontal release signs (+palmomental), quadripresis, extremity contractures. Extremities: Extremities contractures. Skin: No rash or ecchymoses. Objective Labs 11/02/24 04:54 11/02/24 04:54 Labs: Laboratory Results - last 24 hr 10/29/24 10/30/24 10/31/24 21:10 21:10 05:04 WBC 12.0 H RBC 3.25 L Hgb 9.4 L Hct 28.3 L MCV 87 MCH 28.9 MCHC 33.2 RDW Std Deviation 49.3 H Plt Count 354 Neut % (Auto) 82 H Lymph % (Auto) 8 L [place] % (Auto) 9 Eos % (Auto) 1 Baso % (Auto) 0 Neut # (Auto) 9.8 H Lymph # (Auto) 0.9 L [place] # (Auto) 1.1 H Eos # (Auto) 0.1 Baso # (Auto) 0.0 Immature Gran # (Auto) 0.05 H Absolute Nucleated RBC 0.00 Immature Gran % 0 Nucleated RBC % 0 Sodium 136 Potassium 4.1 Chloride 101 Carbon Dioxide 23.3 Anion Gap 12 BUN 8 L Creatinine 0.5 L Estim Creat Clear Calc 162.1 eGFR > 60 BUN/Creatinine Ratio 16 Glucose 97 Calculated Osmolality 270 L Calcium 9.3 Corrected Calcium 9.3 Total Bilirubin < 0.2 L AST 22 ALT 19 Alkaline Phosphatase 100 Total Protein 7.6 Albumin 4.0 Globulin 3.6 H Albumin/Globulin Ratio 1.1 L CSF Appearance Cancelled Clear CSF Color Cancelled Colorless CSF WBC Cancelled 3 CSF RBC Cancelled 25 CSF Cell Count Tube # Cancelled Tube # 4 CSF Mononuclear WBCs Cancelled 63 CSF Polynuclear WBCs Cancelled 37 CSF Diff Comment Cancelled CSF Glucose Cancelled 51 CSF Total Protein Cancelled 48 H Misc Test Result Cancelled ABG Interpretation ABG results: 10/22/24 22:12 ABG pH 7.52 H ABG pCO2 31 L ABG pO2 131 H ABG HCO3 25 ABG O2 Saturation 100 H ABG Base Excess 3 Quality Measures Quality Measures VTE prophylaxis Assessment & Plan Assessment Current Active Medications: Generic Name Dose Route Start Last Admin Trade Name Freq PRN Reason Stop Dose Admin Acetaminophen 650 mg 10/29/24 03:07 10/29/24 03:28 Acetaminophen Supp 650 Mg Supp [place] 11/22/24 01:58 650 mg Q6HR PRN Administration FEVER >100.2 Ascorbic Acid 500 mg 10/23/24 21:00 10/31/24 09:17 Ascorbic Acid 250 Mg Tablet GT 11/22/24 20:59 500 mg BID RADHA Administration Atorvastatin Calcium 40 mg 10/23/24 21:00 10/30/24 20:09 Atorvastatin Calcium 20 Mg Tablet GT 11/22/24 20:59 40 mg HS RADHA Administration Baclofen 20 mg 10/23/24 18:00 10/31/24 11:02 Baclofen 10 Mg Tablet GT 11/22/24 17:59 20 mg Q6HR RADHA Administration Dextrose 25 ml 10/23/24 03:28 10/23/24 11:33 Dextrose 50%-Water Inj 50 Ml Syringe IV 11/22/24 03:27 25 ml Q15MIN PRN Administration BG 50-70 responsive npo pt Dextrose 50 ml 10/23/24 03:28 Dextrose 50%-Water Inj 50 Ml Syringe IV 11/22/24 03:27 Q15MIN PRN BG <50 OR BG <70 & pt unresponsive Doxycycline Hyclate 100 mg 10/30/24 11:00 10/31/24 09:17 Doxycycline 100 Mg Tablet GT 11/06/24 10:59 100 mg BID RADHA Administration Enoxaparin Sodium 40 mg 10/23/24 09:00 10/31/24 09:18 Enoxaparin Sod Inj 40 Mg/0.4 Ml Syringe SC 11/06/24 08:59 40 mg QDAY RADHA Administration Fluconazole 400 mg 11/01/24 09:00 Fluconazole 100 Mg Tablet PO 11/08/24 08:59 QDAY RADHA Gabapentin 300 mg 10/23/24 22:00 10/31/24 14:48 Gabapentin 300 Mg Capsule GT 11/22/24 21:59 300 mg TID RADHA Administration Glucagon 1 mg 10/23/24 03:28 Glucagon Inj 1 Mg Vial IM Q15MIN PRN BG <70, and no IV access Guaifenesin 100 mg 10/31/24 09:45 10/31/24 09:39 Guaifenesin Syrup 200 Mg/10 Ml Udc PO 11/30/24 09:44 100 mg BID RADHA Administration Protocol Sodium Chloride 1,000 mls @ 100 mls/hr 10/31/24 09:15 10/31/24 09:19 Ns IV 11/01/24 05:14 100 mls/hr .Q10H RADHA Administration Piperacillin/Tazobactam/Dextrose 3.375 gm in 50 mls @ 12.5 mls/hr 10/31/24 22:00 Zosyn IV 11/07/24 21:59 Q8HR RADHA Lactulose 10 gm 10/24/24 09:00 10/31/24 09:18 Lactulose Syrup 20 Gm/30 Ml Udc GT 11/23/24 08:59 10 gm QDAY RADHA Administration Protocol Levalbuterol HCl 0.63 mg 10/31/24 10:39 10/31/24 15:08 Levalbuterol Rt 0.63 Mg/3 Ml Nebu INH 11/30/24 10:59 0.63 mg Q4HRRT PRN Administration Bronchospasm Levetiracetam 1,000 mg 10/23/24 09:00 10/31/24 09:18 Levetiracetam Liqd 500 Mg/5 Ml Udc GT 11/22/24 08:59 1,000 mg BID RADHA Administration Magnesium Oxide 400 mg 05/06/25 21:00 10/31/24 09:17 Magnesium Oxide 400 Mg Tablet GT 11/22/24 20:59 400 mg BID RADHA Administration Metoprolol Succinate 50 mg 10/31/24 12:00 10/31/24 12:20 Metoprolol Succinate Xl 25 Mg Tabcr PO 11/30/24 11:59 50 mg QDAY RADHA Administration Multivitamins/Minerals 15 ml 10/24/24 09:00 10/31/24 09:18 Multivitamin 15 Ml Udc GT 11/23/24 08:59 15 ml QDAY RADHA Administration Olanzapine 5 mg 10/24/24 09:00 10/31/24 09:17 Olanzapine 5 Mg Tablet GT 11/23/24 08:59 5 mg QDAY RADHA Administration Sodium Chloride 4 ml 10/31/24 11:00 10/31/24 15:08 Sodium Cl Rt [place] 3% 4 Ml Nebu (Non-Formulary) INH 11/30/24 10:59 4 ml Q4HRRT RADHA Administration Plan The patient is a 29-year-old male with a previous medical history of cocaine induced vasculitis, quadriparesis, status post tracheostomy and PEG tube placement, seizure disorder. He is a subacute resident. He was brought to the ED from subacute facility with vitals fever 101.8, tachycardia, heart rate 120, tachypnea 28 and BP 114/92, SaO2 90% on 6L FiO2 28%. #Suspected infectious meningitis #Cocaine induced vasculitis Patient has a persistent elevated WBC, tachycardia and fevers. His symptoms did not improve with antibiotics course. He also underwent pressure ulcer I&D. CT was concerning for possible hypodensities that could be due to inflammatory process. Plan: - LP done, CSF VDRL and viral panel pending - continue with antibiotics and fluconazole #Seizure disorder Patient has a history of seizures. Stable. Plan: - continue Keppra #Pseudomonas pneumonia #Urogenital infection #Sinus tachycardia #Sacral and lower extremity pressure ulcers #Agitation #History of PEG tube dependence #History of GERD #History of hypotension - management per primary team Plan of care discussed with attending Dr. Burns. Katia Brody MD, PGY 1. Attending Provider Attestation/Addendum Seen and examined the patient at the bedside and agree with resident's findings, assessment and plan of care. Patient is neurologically stable. CSF analysis was unremarkable.
--- NOTE | 2024-10-31 17:25 | ESCONSULT_ITS ---
RE: STAS CASTLE : 1995 DATE OF CONSULTATION: 10/31/2024 REFERRING PHYSICIAN: German Fields MD. REASON FOR CONSULTATION: Positive cocci test. HISTORY OF PRESENT ILLNESS: The patient, who is 29 years of age and does not seem to ever leave the facility , has significant drug-induced encephalopathy, apparently had been positive for drugs of abuse previously and was encephalopathic as a result. He had trach and PEG. He has no other noted surgical history or medical problems. He does have a history of hyperlipidemia based on his medications and possibly seizure disorder based on his medications as well as possible hypertension based on his medications. He cannot offer any history, so history was obtained entirely from the record. Cocci is very difficult to acquire unless patient leaves the facility. Being outdoors, it is almost an essential requirement. Furthermore, my review of the x-ray does not show any obvious pneumonia. CSF looks pretty benign, so I doubt that he has cocci meningitis. His glucose is usually dangerously low even in patients, who have had cocci meningitis for several months. As such, I am going to reduce his dose of fluconazole from 800 mg per day to 400 mg per day and assume that you send CSF for cocci. The serum test is also valuable. I will await those results and check on him later this week. If cultures are negative, we may look at early intraoral treatment. I would not try to cover the pseudomonas. Pseudomonas and enterococcus would be covered by Zosyn and not covered well by Rocephin, but otherwise, they are very similar. Zosyn also is a good anaerobic agent. If you want to use Rocephin or similar agent, we may add some Flagyl to that or even some Augmentin as a precaution. That way we would only miss the coverage for pseudomonas. I will check on him again in a few days. DT: 14:40:20 TT: 17:20:00 Ref: [id number] - TID: [id number] MTDD
[2024-10-31] MEDS: ATORVASTATIN CALCIUM 20 MG TABLET 40 MG GT (21:21)
[2024-11-01] VITALS (19 sets, daily range): BP systolic 113–152; BP diastolic 79–103; PULSE 97–151; RESP 13–30; TEMP 36.1–37.7; O2SAT 96–100
[2024-11-01] MEDS: SODIUM CL RT SOL 3% 4 ML NEBU (NON-FORMULARY) INH ×6 (03:54→22:18)
[2024-11-01] MEDS: PIPER/TAZO 3.375 GM PREMIX 3.375 GM/50 ML BAG IV ×3 (05:16→21:10)
[2024-11-01] MEDS: BACLOFEN 10 MG TABLET 20 MG GT ×4 (05:16→23:52)
[2024-11-01] MEDS: GABAPENTIN 300 MG CAPSULE GT ×3 (05:16→21:10)
[2024-11-01 06:15] LABS: Basophils % (Auto) 0 % (0-2.5); Eosinophils # (Auto) 0.1 Thou/mm3 (0.0-0.5); Eosinophils % (Auto) 1 % (0-10); Hematocrit 27.3 % (41.0-53.0); Immature Granulocytes % (Auto) 0 % (0-0); Immature Granulocytes Auto 0.02 Thou/mm3 (0.00-0.00); Lymphocytes # (Auto) 1.1 Thou/mm3 (1.0-4.8); Lymphocytes % (Auto) 11 % (10-50); Mean Corpuscular Hemoglobin 28.9 pg (25.0-35.0); Mean Corpuscular Volume 88 fL (80-100); Monocytes # (Auto) 1.2 Thou/mm3 (0.0-0.8); Monocytes % (Auto) 13 % (0-12); Neutrophils # (Auto) 7.2 Thou/mm3 (1.8-7.7); Neutrophils % (Auto) 74 % (37-80); Nucleated Red Blood Cell % 0 /100 WBC (0); Platelet Count 314 Thou/mm3 (140-440); RDW Standard Deviation 49.7 fL (35.1-43.9); Red Blood Count 3.11 Miln/mm3 (4.50-5.90); White Blood Count 9.8 Thou/mm3 (3.8-10.6)
[2024-11-01 06:34] LABS: Alanine Aminotransferase 16 U/L (10-49); Albumin, Serum 3.4 gm/dL (3.5-5.0); Alkaline Phosphatase 94 U/L (46-116); Anion Gap 12 (7-16); Aspartate Amino Transferase 26 U/L (0-34); BUN/Creatinine Ratio 18 Ratio (12-20); Bilirubin,Total < 0.2 mg/dL (0.3-1.2); Blood Urea Nitrogen 7 mg/dL (9-23); Calcium 8.8 mg/dL (8.3-10.6); Calcium (Corrected) 9.3 mg/dL (8.5-10.1); Carbon Dioxide 23.4 mMol/L (20.0-31.0); Chloride 107 mMol/L (98-107); Creatinine (Component) 0.4 mg/dL (0.6-1.3); Estimated Creatinine Clearance 202.7 mL/min (>60); Globulin 3.3 gm/dL (2.3-3.5); Glucose 92 mg/dL (74-106); Osmolality,Calculated 281 (275-295); Potassium 3.9 mMol/L (3.4-5.1); Sodium 142 mMol/L (136-145); Total Protein 6.7 gm/dL (5.7-8.2); eGFR > 60 See Note
[2024-11-01] MEDS: LEVALBUTEROL RT 0.63 MG/3 ML NEBU INH ×3 (07:09→15:20)
[2024-11-01] MEDS: LACTULOSE SYRUP 20 GM/30 ML UDC 10 GM GT (09:23)
[2024-11-01] MEDS: levETIRAcetam LIQD 500 MG/5 ML UDC 1000 MG GT ×2 (09:24→21:10)
[2024-11-01] MEDS: FLUCONAZOLE 100 MG TABLET 400 MG PO (09:24)
[2024-11-01] MEDS: ENOXAPARIN SOD INJ 40 MG/0.4 ML SYRINGE SC (09:24)
[2024-11-01] MEDS: MULTIVITAMIN 15 ML UDC GT (09:24)
[2024-11-01] MEDS: guaiFENesin SYRUP 200 MG/10 ML UDC 100 MG PO ×2 (09:24→21:10)
[2024-11-01] MEDS: MAGNESIUM OXIDE 400 MG TABLET GT ×2 (09:25→21:10)
[2024-11-01] MEDS: OLANZapine 5 MG TABLET GT (09:25)
[2024-11-01] MEDS: ASCORBIC ACID 250 MG TABLET 500 MG GT ×2 (09:25→21:10)
[2024-11-01] MEDS: METOPROLOL SUCCINATE XL 25 MG TABCR 50 MG PO ×3 (09:25→20:17)
[2024-11-01] MEDS: DOXYCYCLINE 100 MG TABLET GT ×2 (09:25→21:10)
[2024-11-01] MEDS: SODIUM CHLORIDE 0.9% 1000 ML 1,000 ML 100 ML IV (09:26)
--- NOTE | 2024-11-01 10:53 | ESPR_ITS ---
Documentation for date of: 11/01/24 Subjective Subjective Interval history: Patient was seen and examined bedside this morning. No acute overnight events. Patient's heart rate has been a lot better today and last night. This morning heart rate was in the 110s. Patient did not spike any fevers and WBCs down trended again. Chest CTA done yesterday did not show any PE. Patient was resting peacefully in bed. Exam Vital Signs Temp Pulse Resp BP Pulse Ox O2 Del Method O2 Flow Rate 97.0 F 103 H 22 H 126/94 H 100 Trach Collar 6 11/01/24 08:00 11/01/24 10:34 11/01/24 10:34 11/01/24 09:25 11/01/24 10:34 11/01/24 08:00 11/01/24 10:34 FiO2 28 11/01/24 10:34 Narrative Exam General: Quadriplegic, non verbal, no apparent acute distress, a not able to track Eyes: PERRL, EOMI. Anicteric Ears: No visible nasal discharge Nose: No visible nasal discharge. Mouth/Throat: Dry mucous membranes, no redness, no lesions. Neck: Neck supple, no cervical lymphadenopathy. Lungs: Clear WES, but upper airway congestion not noted today, tracheostomy in place Cardio: Normal S1/S2, regular rhythm, tachycardic, no murmurs, no JVD or carotid bruits Abdomen: Soft, no palpable masses, peristalsis present, no guarding or rebound, PEG tube in place without any bleeding or discharge. Extremities: Contractures of bilateral upper and lower extremities, no peripheral swelling, good capillary refills Skin: Dry and warm, Neuro: Cannot be appropriately assessed given patient is current condition. Pupils were reactive. Objective Labs 11/02/24 04:54 11/02/24 04:54 Labs: Laboratory Results - last 24 hr 11/01/24 04:52 WBC 9.8 RBC 3.11 L Hgb 9.0 L Hct 27.3 L MCV 88 MCH 28.9 MCHC 33.0 RDW Std Deviation 49.7 H Plt Count 314 D Neut % (Auto) 74 Lymph % (Auto) 11 [place] % (Auto) 13 H Eos % (Auto) 1 Baso % (Auto) 0 Neut # (Auto) 7.2 Lymph # (Auto) 1.1 [place] # (Auto) 1.2 H Eos # (Auto) 0.1 Baso # (Auto) 0.0 Immature Gran # (Auto) 0.02 H Absolute Nucleated RBC 0.00 Immature Gran % 0 Nucleated RBC % 0 Sodium 142 Potassium 3.9 Chloride 107 Carbon Dioxide 23.4 Anion Gap 12 BUN 7 L Creatinine 0.4 L Estim Creat Clear Calc 202.7 eGFR > 60 BUN/Creatinine Ratio 18 Glucose 92 Calculated Osmolality 281 Calcium 8.8 Corrected Calcium 9.3 Total Bilirubin < 0.2 L AST 26 ALT 16 Alkaline Phosphatase 94 Total Protein 6.7 Albumin 3.4 L D Globulin 3.3 Albumin/Globulin Ratio 1.0 L ABG Interpretation ABG results: 10/22/24 22:12 ABG pH 7.52 H ABG pCO2 31 L ABG pO2 131 H ABG HCO3 25 ABG O2 Saturation 100 H ABG Base Excess 3 Quality Measures Quality Measures VTE prophylaxis Assessment & Plan Assessment Current Active Medications: Generic Name Dose Route Start Last Admin Trade Name Freq PRN Reason Stop Dose Admin Acetaminophen 650 mg 10/29/24 03:07 10/29/24 03:28 Acetaminophen Supp 650 Mg Supp MN 11/22/24 01:58 650 mg Q6HR PRN Administration FEVER >100.2 Ascorbic Acid 500 mg 10/23/24 21:00 11/01/24 09:25 Ascorbic Acid 250 Mg Tablet GT 11/22/24 20:59 500 mg BID RADHA Administration Atorvastatin Calcium 40 mg 10/23/24 21:00 10/31/24 21:21 Atorvastatin Calcium 20 Mg Tablet GT 11/22/24 20:59 40 mg HS RADHA Administration Baclofen 20 mg 10/23/24 18:00 11/01/24 05:16 Baclofen 10 Mg Tablet GT 11/22/24 17:59 20 mg Q6HR RADHA Administration Dextrose 25 ml 10/23/24 03:28 10/23/24 11:33 Dextrose 50%-Water Inj 50 Ml Syringe IV 11/22/24 03:27 25 ml Q15MIN PRN Administration BG 50-70 responsive npo pt Dextrose 50 ml 10/23/24 03:28 Dextrose 50%-Water Inj 50 Ml Syringe IV 11/22/24 03:27 Q15MIN PRN BG <50 OR BG <70 & pt unresponsive Doxycycline Hyclate 100 mg 10/30/24 11:00 11/01/24 09:25 Doxycycline 100 Mg Tablet GT 11/06/24 10:59 100 mg BID RADHA Administration Enoxaparin Sodium 40 mg 10/23/24 09:00 11/01/24 09:24 Enoxaparin Sod Inj 40 Mg/0.4 Ml Syringe SC 11/06/24 08:59 40 mg QDAY RADHA Administration Fluconazole 400 mg 11/01/24 09:00 11/01/24 09:24 Fluconazole 100 Mg Tablet PO 11/08/24 08:59 400 mg QDAY RADHA Administration Gabapentin 300 mg 10/23/24 22:00 11/01/24 05:16 Gabapentin 300 Mg Capsule GT 11/22/24 21:59 300 mg TID RADHA Administration Glucagon 1 mg 10/23/24 03:28 Glucagon Inj 1 Mg Vial IM Q15MIN PRN BG <70, and no IV access Guaifenesin 100 mg 10/31/24 09:45 11/01/24 09:24 Guaifenesin Syrup 200 Mg/10 Ml Udc PO 11/30/24 09:44 100 mg BID RADHA Administration Protocol Piperacillin/Tazobactam/Dextrose 3.375 gm in 50 mls @ 12.5 mls/hr 10/31/24 22:00 11/01/24 05:16 Zosyn IV 11/07/24 21:59 12.5 mls/hr Q8HR RADHA Administration Sodium Chloride 1,000 mls @ 100 mls/hr 11/01/24 07:45 11/01/24 09:26 Ns IV 11/01/24 17:44 100 mls/hr .Q10H RADHA Administration Lactulose 10 gm 10/24/24 09:00 11/01/24 09:23 Lactulose Syrup 20 Gm/30 Ml Udc GT 11/23/24 08:59 10 gm QDAY RADHA Administration Protocol Levalbuterol HCl 0.63 mg 10/31/24 10:39 11/01/24 10:32 Levalbuterol Rt 0.63 Mg/3 Ml Nebu INH 11/30/24 10:59 0.63 mg Q4HRRT PRN Administration Bronchospasm Levetiracetam 1,000 mg 10/23/24 09:00 11/01/24 09:24 Levetiracetam Liqd 500 Mg/5 Ml Udc GT 11/22/24 08:59 1,000 mg BID RADHA Administration Magnesium Oxide 400 mg 10/23/24 21:00 11/01/24 09:25 Magnesium Oxide 400 Mg Tablet GT 11/22/24 20:59 400 mg BID RADHA Administration Metoprolol Succinate 100 mg 11/02/24 09:00 Metoprolol Succinate Xl 25 Mg Tabcr PO 12/02/24 08:59 QDAY RADHA Multivitamins/Minerals 15 ml 10/24/24 09:00 11/01/24 09:24 Multivitamin 15 Ml Udc GT 11/23/24 08:59 15 ml QDAY RADHA Administration Olanzapine 5 mg 10/24/24 09:00 11/01/24 09:25 Olanzapine 5 Mg Tablet GT 11/23/24 08:59 5 mg QDAY RADHA Administration Sodium Chloride 4 ml 10/31/24 11:00 11/01/24 10:32 Sodium Cl Rt [place] 3% 4 Ml Nebu (Non-Formulary) INH 11/30/24 10:59 4 ml Q4HRRT RADHA Administration Plan 29-year-old male with past medical history of cocaine induced vasculitis, chronically trach and PEG, chronic quadriplegia, and history of seizure. He was admitted to the hospital on 10/23/2024 due to possible healthcare associated pneumonia. #Acute encephalopathy #Cocci meningitis? CT head performed relatively unremarkable, no acute intracranial pathology noted LP done yesterday, but was not revealing. Plan: ?Pending CSF culture and viral studies. ? Neurology consulted, appreciate recommendations #Community-acquired pneumonia #Coccidiomycosis #Proteus mirabilis #Pseudomonas aeruginosa #Urogenital infection, Klebsiella pneumonia and Proteus mirabilis Patient was having some penile discharge and with noticed by manage therefore cultures grew Klebsiella and Proteus mirabilis on 10/27/2024 Patient had a course of Zosyn and vancomycin (10/23-10/30) and ceftriaxone (10/30/2024 - 10/31/2024) Patient's blood cultures have been negative and urine culture was also negative. Patient has been afebrile and diabetes had been downtrending, but up trended today likely reactive to the LP. Patient still has some secretions in the tracheostomy Patient still very tachycardic Plan: ?Continue Zosyn 3.325 every 8 (10/31/2024?) ? Doxycycline 100 mg GT twice daily (10/30-) ? Fluconazole 400 mg daily ?ID consulted, appreciate commendations #Sinus tachycardia vs SVT EKG on 10/25 with significant artifact but HR 158. Possibly secondary to infectious etiology Patient has still been very tachycardic this could be also due to dehydration as he has been having a lot of urine output. Plan: ? Increased to metoprolol XL 100mg qday ? 1 L NS at 100cc/hr ? Replete electrolytes as necessary #History of seizure disorder EEG did not show any epileptiform activity, however this does not rule out seizures. If the patient is seizing, likely secondary to underlying cause lowering seizure threshold such as infections above. ? Continue Keppra 1000 mg BID #Skin ulcerations on lower extremities and sacrum ? General Surgery consulted, bedside debridement performed ? Will continue Doxycycline #Agitation ? Olanzapine 5 mg daily #History of PEG tube dependence ? Ascorbic acid 500 mg BID ? Atorvastatin 40 mg HS #History of quadriplegia ? Gabapentin 300 mg TID ? Baclofen 20 mg q6hr #History of hypotension ? Holding midodrine 15 mg TID as BP has been stable Disposition: Possible DC in next 24-48 hrs. Diet: TF Jevity 1.2 at 65 mL/h for 24 hours via G-tube by pump. GI prophylaxis: not indicated DVT prophylaxis: lovenox Code: DNR Case disclosed with Attending Dr. Carlos Holland PGY1 Attending Provider Attestation/Addendum I reviewed labs, imaging, EKG, home medications and prior available records. Face to face evaluation was performed by me. I have personally examined the patient and discussed assessment and plan with the IM team. I reviewed the resident note and agree with the plan with exceptions as below. Cocaine induced vasculitis Chronic encephalopathy Chronic hypoxic respiratory failure status post tracheostomy Status post PEG tube placement Acute febrile illness Right lower lobe pneumonia Cocci pneumonia Seizure disorder Heart rate improved with IV fluids. Increased metoprolol Ordered CTA that showed no acute PE. Tachycardia improved after IV hydration and metoprolol Continue IV Zosyn Continue fluconazole Discharge culture grew Klebsiella and Proteus Consulted ID for antibiotic guidance Continue oxygen via tracheostomy Tylenol as needed for fevers Resume home seizure medications
--- NOTE | 2024-11-01 13:52 | PD.RESPRO ---
Documentation for date of: 11/01/24 Subjective Subjective Interval history: Patient was seen and examined by the bedside. No acute overnight events. Afebrile overnight, saturates well on trach collar. It seems like patient's mentation is better, due to severe neurological deficits he is only able to raise eyebrows when asked. Continues to tachycardic. Exam Vital Signs Temp Pulse Resp BP Pulse Ox O2 Del Method O2 Flow Rate 97.0 F 101 H 22 H 126/94 H 100 Trach Collar 6 11/01/24 08:00 11/01/24 12:37 11/01/24 10:34 11/01/24 12:37 11/01/24 10:34 11/01/24 08:00 11/01/24 10:34 FiO2 28 11/01/24 10:34 Narrative Exam Physical Exam General: Non-verbal, non-localizing pain. S/p tracheostomy. HEENT: Normocephalic, atraumatic, mucous membranes moist, white conjunctival discharge. Heart: Tachycardic, no murmurs. Lungs: Clear to auscultation with no wheezing or crackles. Abdomen: Soft, nondistended, nontender, positive bowel sounds. ?No guarding or rebound tenderness. Neurologic: Non-verbal, positive frontal release signs (+palmomental), quadriparesis, extremity contractures. Follows simple 1 step commands. Extremities: Extremities contractures. Skin: No rash or ecchymoses. Objective Labs 11/03/24 05:15 11/03/24 05:15 Labs: Laboratory Results - last 24 hr 11/01/24 04:52 WBC 9.8 RBC 3.11 L Hgb 9.0 L Hct 27.3 L MCV 88 MCH 28.9 MCHC 33.0 RDW Std Deviation 49.7 H Plt Count 314 D Neut % (Auto) 74 Lymph % (Auto) 11 [place] % (Auto) 13 H Eos % (Auto) 1 Baso % (Auto) 0 Neut # (Auto) 7.2 Lymph # (Auto) 1.1 [place] # (Auto) 1.2 H Eos # (Auto) 0.1 Baso # (Auto) 0.0 Immature Gran # (Auto) 0.02 H Absolute Nucleated RBC 0.00 Immature Gran % 0 Nucleated RBC % 0 Sodium 142 Potassium 3.9 Chloride 107 Carbon Dioxide 23.4 Anion Gap 12 BUN 7 L Creatinine 0.4 L Estim Creat Clear Calc 202.7 eGFR > 60 BUN/Creatinine Ratio 18 Glucose 92 Calculated Osmolality 281 Calcium 8.8 Corrected Calcium 9.3 Total Bilirubin < 0.2 L AST 26 ALT 16 Alkaline Phosphatase 94 Total Protein 6.7 Albumin 3.4 L D Globulin 3.3 Albumin/Globulin Ratio 1.0 L ABG Interpretation ABG results: 10/22/24 22:12 ABG pH 7.52 H ABG pCO2 31 L ABG pO2 131 H ABG HCO3 25 ABG O2 Saturation 100 H ABG Base Excess 3 Quality Measures Quality Measures VTE prophylaxis Assessment & Plan Assessment Current Active Medications: Generic Name Dose Route Start Last Admin Trade Name Freq PRN Reason Stop Dose Admin Acetaminophen 650 mg 10/29/24 03:07 10/29/24 03:28 Acetaminophen Supp 650 Mg Supp [place] 11/22/24 01:58 650 mg Q6HR PRN Administration FEVER >100.2 Ascorbic Acid 500 mg 10/23/24 21:00 11/01/24 09:25 Ascorbic Acid 250 Mg Tablet GT 11/22/24 20:59 500 mg BID RADHA Administration Atorvastatin Calcium 40 mg 10/23/24 21:00 10/31/24 21:21 Atorvastatin Calcium 20 Mg Tablet GT 11/22/24 20:59 40 mg HS RADHA Administration Baclofen 20 mg 10/23/24 18:00 11/01/24 12:23 Baclofen 10 Mg Tablet GT 11/22/24 17:59 20 mg Q6HR RADHA Administration Dextrose 25 ml 10/23/24 03:28 10/23/24 11:33 Dextrose 50%-Water Inj 50 Ml Syringe IV 11/22/24 03:27 25 ml Q15MIN PRN Administration BG 50-70 responsive npo pt Dextrose 50 ml 10/23/24 03:28 Dextrose 50%-Water Inj 50 Ml Syringe IV 11/22/24 03:27 Q15MIN PRN BG <50 OR BG <70 & pt unresponsive Doxycycline Hyclate 100 mg 10/30/24 11:00 11/01/24 09:25 Doxycycline 100 Mg Tablet GT 11/06/24 10:59 100 mg BID RADHA Administration Enoxaparin Sodium 40 mg 10/23/24 09:00 11/01/24 09:24 Enoxaparin Sod Inj 40 Mg/0.4 Ml Syringe SC 11/06/24 08:59 40 mg QDAY RADHA Administration Fluconazole 400 mg 11/01/24 09:00 11/01/24 09:24 Fluconazole 100 Mg Tablet PO 11/08/24 08:59 400 mg QDAY RADHA Administration Gabapentin 300 mg 10/23/24 22:00 11/01/24 13:33 Gabapentin 300 Mg Capsule GT 11/22/24 21:59 300 mg TID RADHA Administration Glucagon 1 mg 10/23/24 03:28 Glucagon Inj 1 Mg Vial IM Q15MIN PRN BG <70, and no IV access Guaifenesin 100 mg 10/31/24 09:45 11/01/24 09:24 Guaifenesin Syrup 200 Mg/10 Ml Udc PO 11/30/24 09:44 100 mg BID RADHA Administration Protocol Piperacillin/Tazobactam/Dextrose 3.375 gm in 50 mls @ 12.5 mls/hr 10/31/24 22:00 11/01/24 13:33 Zosyn IV 11/07/24 21:59 12.5 mls/hr Q8HR RADHA Administration Sodium Chloride 1,000 mls @ 100 mls/hr 11/01/24 07:45 11/01/24 09:26 Ns IV 11/01/24 17:44 100 mls/hr .Q10H RADHA Administration Lactulose 10 gm 10/24/24 09:00 11/01/24 09:23 Lactulose Syrup 20 Gm/30 Ml Udc GT 11/23/24 08:59 10 gm QDAY RADHA Administration Protocol Levalbuterol HCl 0.63 mg 10/31/24 10:39 11/01/24 10:32 Levalbuterol Rt 0.63 Mg/3 Ml Nebu INH 11/30/24 10:59 0.63 mg Q4HRRT PRN Administration Bronchospasm Levetiracetam 1,000 mg 10/23/24 09:00 11/01/24 09:24 Levetiracetam Liqd 500 Mg/5 Ml Udc GT 11/22/24 08:59 1,000 mg BID RADHA Administration Magnesium Oxide 400 mg 10/23/24 21:00 11/01/24 09:25 Magnesium Oxide 400 Mg Tablet GT 11/22/24 20:59 400 mg BID RADHA Administration Metoprolol Succinate 100 mg 11/02/24 09:00 Metoprolol Succinate Xl 25 Mg Tabcr PO 12/02/24 08:59 QDAY RADHA Multivitamins/Minerals 15 ml 10/24/24 09:00 11/01/24 09:24 Multivitamin 15 Ml Udc GT 11/23/24 08:59 15 ml QDAY RADHA Administration Olanzapine 5 mg 10/24/24 09:00 11/01/24 09:25 Olanzapine 5 Mg Tablet GT 11/23/24 08:59 5 mg QDAY RADHA Administration Sodium Chloride 4 ml 10/31/24 11:00 11/01/24 10:32 Sodium Cl Rt [place] 3% 4 Ml Nebu (Non-Formulary) INH 11/30/24 10:59 4 ml Q4HRRT RADHA Administration Plan The patient is a 29-year-old male with a previous medical history of cocaine induced vasculitis, quadriparesis, status post tracheostomy and PEG tube placement, seizure disorder. He is a subacute resident. He was brought to the ED from subacute facility with vitals fever 101.8, tachycardia, heart rate 120, tachypnea 28 and BP 114/92, SaO2 90% on 6L FiO2 28%. #Suspected infectious meningitis #Cocaine induced vasculitis #Sinus tachycardia Ddx: dysautonomia in the setting of cocaine induced vasculitis vs infectious meningitis. Patient has a persistent elevated WBC, tachycardia and fevers. His symptoms did not improve with antibiotics course. He also underwent pressure ulcer I&D. CT was concerning for possible hypodensities that could be due to inflammatory process. CSF cell count, protein and glucose levels unremarkable. Low suspicion for infectious meningitis. Plan: - LP done, CSF VDRL and viral panel pending - continue with antibiotics and fluconazole #Seizure disorder Patient has a history of seizures. Stable. Plan: - continue Keppra #Pseudomonas pneumonia #Urogenital infection #Sinus tachycardia #Sacral and lower extremity pressure ulcers #Agitation #History of PEG tube dependence #History of GERD #History of hypotension - management per primary team Plan of care discussed with attending Dr. Burns. Katia Brody MD, PGY 1. Attending Provider Attestation/Addendum I personally have seen and examined the patient at the bedside and agree with resident's findings, assessment and plan of care. CSF analysis is unremarkable. Continued to be tachycardic, could have been related to central process.
[2024-11-01] MEDS: ATORVASTATIN CALCIUM 20 MG TABLET 40 MG GT (21:10)
[2024-11-02] VITALS (15 sets, daily range): BP systolic 115–144; BP diastolic 78–99; PULSE 99–134; RESP 18–35; TEMP 36.1–37.6; O2SAT 97–100; BMI 16.4
[2024-11-02] MEDS: SODIUM CL RT SOL 3% 4 ML NEBU (NON-FORMULARY) INH ×6 (03:14→22:43)
[2024-11-02] MEDS: BACLOFEN 10 MG TABLET 20 MG GT ×3 (05:17→17:22)
[2024-11-02] MEDS: PIPER/TAZO 3.375 GM PREMIX 3.375 GM/50 ML BAG IV (05:17)
[2024-11-02] MEDS: GABAPENTIN 300 MG CAPSULE GT ×3 (05:17→22:45)
[2024-11-02 05:32] LABS: Basophils % (Auto) 0 % (0-2.5); Eosinophils # (Auto) 0.1 Thou/mm3 (0.0-0.5); Eosinophils % (Auto) 1 % (0-10); Hematocrit 27.8 % (41.0-53.0); Hemoglobin 8.9 g/dL (13.5-16.0); Immature Granulocytes % (Auto) 0 % (0-0); Immature Granulocytes Auto 0.03 Thou/mm3 (0.00-0.00); Lymphocytes # (Auto) 1.2 Thou/mm3 (1.0-4.8); Lymphocytes % (Auto) 13 % (10-50); Mean Corpuscular Hemoglobin 28.6 pg (25.0-35.0); Mean Corpuscular Volume 89 fL (80-100); Monocytes # (Auto) 0.9 Thou/mm3 (0.0-0.8); Monocytes % (Auto) 10 % (0-12); Neutrophils % (Auto) 76 % (37-80); Nucleated Red Blood Cell % 0 /100 WBC (0); Platelet Count 361 Thou/mm3 (140-440); RDW Standard Deviation 50.1 fL (35.1-43.9); Red Blood Count 3.11 Miln/mm3 (4.50-5.90); White Blood Count 9.2 Thou/mm3 (3.8-10.6)
[2024-11-02 06:05] LABS: Alanine Aminotransferase 16 U/L (10-49); Albumin, Serum 3.7 gm/dL (3.5-5.0); Alkaline Phosphatase 100 U/L (46-116); Anion Gap 12 (7-16); Aspartate Amino Transferase 27 U/L (0-34); BUN/Creatinine Ratio 22 Ratio (12-20); Bilirubin,Total < 0.2 mg/dL (0.3-1.2); Blood Urea Nitrogen 11 mg/dL (9-23); Calcium 9.3 mg/dL (8.3-10.6); Calcium (Corrected) 9.5 mg/dL (8.5-10.1); Carbon Dioxide 22.7 mMol/L (20.0-31.0); Chloride 105 mMol/L (98-107); Creatinine (Component) 0.5 mg/dL (0.6-1.3); Estimated Creatinine Clearance 162.1 mL/min (>60); Globulin 3.6 gm/dL (2.3-3.5); Glucose 90 mg/dL (74-106); Osmolality,Calculated 278 (275-295); Potassium 3.8 mMol/L (3.4-5.1); Sodium 140 mMol/L (136-145); Total Protein 7.3 gm/dL (5.7-8.2); eGFR > 60 See Note
[2024-11-02] MEDS: MULTIVITAMIN 15 ML UDC GT (09:31)
[2024-11-02] MEDS: LACTULOSE SYRUP 20 GM/30 ML UDC 10 GM GT (09:32)
[2024-11-02] MEDS: ENOXAPARIN SOD INJ 40 MG/0.4 ML SYRINGE SC (09:32)
[2024-11-02] MEDS: OLANZapine 5 MG TABLET GT (09:32)
[2024-11-02] MEDS: guaiFENesin SYRUP 200 MG/10 ML UDC 100 MG PO ×2 (09:33→22:47)
[2024-11-02] MEDS: levETIRAcetam LIQD 500 MG/5 ML UDC 1000 MG GT ×2 (09:34→22:47)
[2024-11-02] MEDS: MAGNESIUM OXIDE 400 MG TABLET GT ×2 (09:38→22:47)
[2024-11-02] MEDS: FLUCONAZOLE 100 MG TABLET 400 MG PO (09:38)
[2024-11-02] MEDS: DOXYCYCLINE 100 MG TABLET GT (09:38)
[2024-11-02] MEDS: ASCORBIC ACID 250 MG TABLET 500 MG GT ×2 (09:38→22:46)
[2024-11-02] MEDS: METOPROLOL SUCCINATE XL 25 MG TABCR 100 MG PO (09:39)
--- NOTE | 2024-11-02 11:00 | PC.SS ---
SS follow up note; SS has attempted to contact patient's father and mother, however has been unsuccessful, SS left Voicemail with call back number.
--- NOTE | 2024-11-02 11:00 | PC.SS ---
SS follow up note; Heart rate is elevated, if it improves patient will discharge back to Subacute today.
--- NOTE | 2024-11-02 11:16 | ESPR_ITS ---
Subjective Subjective Interval history: cocci still pending. on flucon. afebrile. other cx noted. likely not significant. Exam Vital Signs Temp Pulse Resp BP Pulse Ox O2 Del Method O2 Flow Rate 97.8 F 134 H 26 H 136/99 H 100 Trach Collar 6 11/02/24 08:00 11/02/24 10:15 11/02/24 10:15 11/02/24 09:39 11/02/24 10:15 11/02/24 08:00 11/02/24 10:15 FiO2 28 11/02/24 10:15 Narrative Exam not interactive. called [facility] and result not complete, they have it though and it is in process. Objective - Internal Medicine Labs 11/02/24 04:54 11/02/24 04:54 Labs: Laboratory Results - last 24 hr 11/02/24 04:54 WBC 9.2 RBC 3.11 L Hgb 8.9 L Hct 27.8 L MCV 89 MCH 28.6 MCHC 32.0 RDW Std Deviation 50.1 H Plt Count 361 D Neut % (Auto) 76 Lymph % (Auto) 13 [place] % (Auto) 10 Eos % (Auto) 1 Baso % (Auto) 0 Neut # (Auto) 7.0 Lymph # (Auto) 1.2 [place] # (Auto) 0.9 H Eos # (Auto) 0.1 Baso # (Auto) 0.0 Immature Gran # (Auto) 0.03 H Absolute Nucleated RBC 0.00 Immature Gran % 0 Nucleated RBC % 0 Sodium 140 Potassium 3.8 Chloride 105 Carbon Dioxide 22.7 Anion Gap 12 BUN 11 Creatinine 0.5 L Estim Creat Clear Calc 162.1 eGFR > 60 BUN/Creatinine Ratio 22 H Glucose 90 Calculated Osmolality 278 Calcium 9.3 Corrected Calcium 9.5 Total Bilirubin < 0.2 L AST 27 ALT 16 Alkaline Phosphatase 100 Total Protein 7.3 Albumin 3.7 Globulin 3.6 H Albumin/Globulin Ratio 1.0 L ABG Interpretation ABG results: 10/22/24 22:12 ABG pH 7.52 H ABG pCO2 31 L ABG pO2 131 H ABG HCO3 25 ABG O2 Saturation 100 H ABG Base Excess 3 Assessment & Plan A&P Narrative possible cocci pos IgM locally. drug induced encephalopathy by hx hld by meds chronic resp failure due to #2 not overtly worse cxr looks neg to me ok to add flucon to regimen at 400/day, but csf glucose normal so cocci meningitis unlikely doubt current issue is cocci or pneumonia related despite radiology opinion. so empiric flucon at 400/day ok. pending test at [facility] cocci if present is very early and this would be one of the first pts with cocci w/o ever leaving the facility he is tachy at baseline too, so keep that in mind. csf vdrl pending too. Time Spent With Patient Time: Total time spent is greater than 50% in coordination of care (as documented) at patient's floor/unit and/or counseling patient:
[2024-11-02] MEDS: MORPHINE SULF INJ 10 MG/ML VIAL IVP (11:54)
--- NOTE | 2024-11-02 13:21 | ESPR_ITS ---
Documentation for date of: 11/02/24 Subjective Subjective Interval history: Patient was seen and examined by the bedside. No acute overnight events. Afebrile overnight, saturates well on trach collar. Continues to tachycardic. Will try morphine to see if it helps in case the cause of tachycardia is pain. Patient is tracking objects with his eyes, not always consistently. Blinks when asked, but not consistently. Exam Vital Signs Temp Pulse Resp BP Pulse Ox O2 Del Method O2 Flow Rate 99.6 F 119 H 20 144/98 H 97 Trach Collar 6 11/02/24 11:52 11/02/24 11:52 11/02/24 11:52 11/02/24 11:52 11/02/24 11:52 11/02/24 08:00 11/02/24 10:15 FiO2 28 11/02/24 10:15 Narrative Exam Physical Exam General: Non-verbal, non-localizing pain. S/p tracheostomy. HEENT: Normocephalic, atraumatic, mucous membranes moist, white conjunctival discharge. Heart: Tachycardic, no murmurs. Lungs: Clear to auscultation with no wheezing or crackles. Abdomen: Soft, nondistended, nontender, positive bowel sounds. ?No guarding or rebound tenderness. Neurologic: Non-verbal, positive frontal release signs (+palmomental), quadriparesis, extremity contractures. Follows simple 1 step commands, not always consistently. Extremities: Extremities contractures. Skin: No rash or ecchymoses. Objective Labs 11/03/24 05:15 11/03/24 05:15 Labs: Laboratory Results - last 24 hr 11/02/24 04:54 WBC 9.2 RBC 3.11 L Hgb 8.9 L Hct 27.8 L MCV 89 MCH 28.6 MCHC 32.0 RDW Std Deviation 50.1 H Plt Count 361 D Neut % (Auto) 76 Lymph % (Auto) 13 [place] % (Auto) 10 Eos % (Auto) 1 Baso % (Auto) 0 Neut # (Auto) 7.0 Lymph # (Auto) 1.2 [place] # (Auto) 0.9 H Eos # (Auto) 0.1 Baso # (Auto) 0.0 Immature Gran # (Auto) 0.03 H Absolute Nucleated RBC 0.00 Immature Gran % 0 Nucleated RBC % 0 Sodium 140 Potassium 3.8 Chloride 105 Carbon Dioxide 22.7 Anion Gap 12 BUN 11 Creatinine 0.5 L Estim Creat Clear Calc 162.1 eGFR > 60 BUN/Creatinine Ratio 22 H Glucose 90 Calculated Osmolality 278 Calcium 9.3 Corrected Calcium 9.5 Total Bilirubin < 0.2 L AST 27 ALT 16 Alkaline Phosphatase 100 Total Protein 7.3 Albumin 3.7 Globulin 3.6 H Albumin/Globulin Ratio 1.0 L ABG Interpretation ABG results: 10/22/24 22:12 ABG pH 7.52 H ABG pCO2 31 L ABG pO2 131 H ABG HCO3 25 ABG O2 Saturation 100 H ABG Base Excess 3 Quality Measures Quality Measures VTE prophylaxis Assessment & Plan Assessment Current Active Medications: Generic Name Dose Route Start Last Admin Trade Name Freq PRN Reason Stop Dose Admin Acetaminophen 650 mg 10/29/24 03:07 10/29/24 03:28 Acetaminophen Supp 650 Mg Supp SD 11/22/24 01:58 650 mg Q6HR PRN Administration FEVER >100.2 Ascorbic Acid 500 mg 10/23/24 21:00 11/02/24 09:38 Ascorbic Acid 250 Mg Tablet GT 11/22/24 20:59 500 mg BID RADHA Administration Atorvastatin Calcium 40 mg 10/23/24 21:00 11/01/24 21:10 Atorvastatin Calcium 20 Mg Tablet GT 11/22/24 20:59 40 mg HS RADHA Administration Baclofen 20 mg 10/23/24 18:00 11/02/24 11:27 Baclofen 10 Mg Tablet GT 11/22/24 17:59 20 mg Q6HR RADHA Administration Dextrose 25 ml 10/23/24 03:28 10/23/24 11:33 Dextrose 50%-Water Inj 50 Ml Syringe IV 11/22/24 03:27 25 ml Q15MIN PRN Administration BG 50-70 responsive npo pt Dextrose 50 ml 10/23/24 03:28 Dextrose 50%-Water Inj 50 Ml Syringe IV 11/22/24 03:27 Q15MIN PRN BG <50 OR BG <70 & pt unresponsive Enoxaparin Sodium 40 mg 10/23/24 09:00 11/02/24 09:32 Enoxaparin Sod Inj 40 Mg/0.4 Ml Syringe SC 11/06/24 08:59 40 mg QDAY RADHA Administration Fluconazole 400 mg 11/01/24 09:00 11/02/24 09:38 Fluconazole 100 Mg Tablet PO 05/22/25 08:59 400 mg QDAY RADHA Administration Gabapentin 300 mg 10/23/24 22:00 11/02/24 05:17 Gabapentin 300 Mg Capsule GT 11/22/24 21:59 300 mg TID RADHA Administration Glucagon 1 mg 10/23/24 03:28 Glucagon Inj 1 Mg Vial IM Q15MIN PRN BG <70, and no IV access Guaifenesin 100 mg 10/31/24 09:45 11/02/24 09:33 Guaifenesin Syrup 200 Mg/10 Ml Udc PO 11/30/24 09:44 100 mg BID RADHA Administration Protocol Lactulose 10 gm 10/24/24 09:00 11/02/24 09:32 Lactulose Syrup 20 Gm/30 Ml Udc GT 11/23/24 08:59 10 gm QDAY RADHA Administration Protocol Levalbuterol HCl 0.63 mg 10/31/24 10:39 11/01/24 15:20 Levalbuterol Rt 0.63 Mg/3 Ml Nebu INH 11/30/24 10:59 0.63 mg Q4HRRT PRN Administration Bronchospasm Levetiracetam 1,000 mg 10/23/24 09:00 11/02/24 09:34 Levetiracetam Liqd 500 Mg/5 Ml Udc GT 11/22/24 08:59 1,000 mg BID RADHA Administration Magnesium Oxide 400 mg 10/23/24 21:00 11/02/24 09:38 Magnesium Oxide 400 Mg Tablet GT 11/22/24 20:59 400 mg BID RADHA Administration Metoprolol Tartrate 100 mg 11/02/24 21:00 Metoprolol Tartrate 25 Mg Tablet PO 12/02/24 20:59 BID RADHA Multivitamins/Minerals 15 ml 10/24/24 09:00 11/02/24 09:31 Multivitamin 15 Ml Udc GT 11/23/24 08:59 15 ml QDAY RADHA Administration Olanzapine 5 mg 10/24/24 09:00 11/02/24 09:32 Olanzapine 5 Mg Tablet GT 11/23/24 08:59 5 mg QDAY RADHA Administration Sodium Chloride 4 ml 10/31/24 11:00 11/02/24 10:15 Sodium Cl Rt [place] 3% 4 Ml Nebu (Non-Formulary) INH 11/30/24 10:59 4 ml Q4HRRT RADHA Administration Plan The patient is a 29-year-old male with a previous medical history of cocaine induced vasculitis, quadriparesis, status post tracheostomy and PEG tube placement, seizure disorder. He is a subacute resident. He was brought to the ED from subacute facility with vitals fever 101.8, tachycardia, heart rate 120, tachypnea 28 and BP 114/92, SaO2 90% on 6L FiO2 28%. #Minimally conscious state #Suspected infectious meningitis #Cocaine induced vasculitis #Sinus tachycardia Ddx: dysautonomia in the setting of cocaine induced vasculitis vs infectious meningitis. Patient has a persistent elevated WBC, tachycardia and fevers. His symptoms did not improve with antibiotics course. He also underwent pressure ulcer I&D. CT was concerning for possible hypodensities that could be due to inflammatory process. CSF cell count, protein and glucose levels unremarkable. Low suspicion for infectious meningitis. EEG 10/27 showed diffuse slowing of background activity. Patient is tracking objects with his eyes, not always consistently. Blinks when asked, but not consistently. Mentation seems to fluctuate. Low suspicion for infectious meningitis at the moment. Plan: - LP done, CSF VDRL and viral panel pending - continue with antibiotics and fluconazole - tsh, t4 ordered #Seizure disorder Patient has a history of seizures. Stable. Plan: - continue Keppra #Pseudomonas pneumonia #Urogenital infection #Sinus tachycardia #Sacral and lower extremity pressure ulcers #Agitation #History of PEG tube dependence #History of GERD #History of hypotension - management per primary team Plan of care discussed with attending Dr. Burns. Katia Brody MD, PGY 1. Attending Provider Attestation/Addendum I personally have seen and examined the patient at the bedside and agree with resident's findings, assessment and plan of care. Continue to be tachycardic could be central process. Stable for subacute transfer
--- NOTE | 2024-11-02 14:18 | PC.SS ---
SS follow up note; SS attempted to contact father and mother, SS left voicemail to fathers contact number. SS provided call back number.
--- NOTE | 2024-11-02 14:27 | ESPR_ITS ---
Documentation for date of: 11/02/24 Subjective Subjective Interval history: Patient was seen and examined at bedside this morning. Overnight patient again became tachycardic therefore he was given 50 mg of metoprolol succinate x 1 which helped improve his heart rate. This morning patient is still very tachycardic therefore patient cannot be discharged today. Patient also had some bleeding from some mouth ulcers appreciated. No other complaints at this time, will try contacting patient's family. Exam Vital Signs Temp Pulse Resp BP Pulse Ox O2 Del Method O2 Flow Rate 99.6 F 119 H 20 144/98 H 97 Trach Collar 6 11/02/24 11:52 11/02/24 11:52 11/02/24 11:52 11/02/24 11:52 11/02/24 11:52 11/02/24 08:00 11/02/24 10:15 FiO2 28 11/02/24 10:15 Narrative Exam General: Quadriplegic, non verbal, no apparent acute distress, a not able to track Eyes: PERRL, EOMI. Anicteric Ears: No visible nasal discharge Nose: No visible nasal discharge. Mouth/Throat: Dry mucous membranes, no redness, dry blood in lower lip, an ulcer at edge of mouth. Neck: Neck supple, no cervical lymphadenopathy. Lungs: Clear WES, but upper airway congestion not noted today, tracheostomy in place Cardio: Normal S1/S2, regular rhythm, tachycardic, no murmurs, no JVD or carotid bruits Abdomen: Soft, no palpable masses, peristalsis present, no guarding or rebound, PEG tube in place without any bleeding or discharge. Extremities: Contractures of bilateral upper and lower extremities, no peripheral swelling, good capillary refills Skin: Dry and warm, Neuro: Cannot be appropriately assessed given patient is current condition. Pupils were reactive. Objective Labs 11/03/24 05:15 11/03/24 05:15 Labs: Laboratory Results - last 24 hr 11/02/24 04:54 WBC 9.2 RBC 3.11 L Hgb 8.9 L Hct 27.8 L MCV 89 MCH 28.6 MCHC 32.0 RDW Std Deviation 50.1 H Plt Count 361 D Neut % (Auto) 76 Lymph % (Auto) 13 [place] % (Auto) 10 Eos % (Auto) 1 Baso % (Auto) 0 Neut # (Auto) 7.0 Lymph # (Auto) 1.2 [place] # (Auto) 0.9 H Eos # (Auto) 0.1 Baso # (Auto) 0.0 Immature Gran # (Auto) 0.03 H Absolute Nucleated RBC 0.00 Immature Gran % 0 Nucleated RBC % 0 Sodium 140 Potassium 3.8 Chloride 105 Carbon Dioxide 22.7 Anion Gap 12 BUN 11 Creatinine 0.5 L Estim Creat Clear Calc 162.1 eGFR > 60 BUN/Creatinine Ratio 22 H Glucose 90 Calculated Osmolality 278 Calcium 9.3 Corrected Calcium 9.5 Total Bilirubin < 0.2 L AST 27 ALT 16 Alkaline Phosphatase 100 Total Protein 7.3 Albumin 3.7 Globulin 3.6 H Albumin/Globulin Ratio 1.0 L ABG Interpretation ABG results: 10/22/24 22:12 ABG pH 7.52 H ABG pCO2 31 L ABG pO2 131 H ABG HCO3 25 ABG O2 Saturation 100 H ABG Base Excess 3 Quality Measures Quality Measures VTE prophylaxis Assessment & Plan Assessment Current Active Medications: Generic Name Dose Route Start Last Admin Trade Name Freq PRN Reason Stop Dose Admin Acetaminophen 650 mg 10/29/24 03:07 10/29/24 03:28 Acetaminophen Supp 650 Mg Supp OR 11/22/24 01:58 650 mg Q6HR PRN Administration FEVER >100.2 Ascorbic Acid 500 mg 10/23/24 21:00 11/02/24 09:38 Ascorbic Acid 250 Mg Tablet GT 11/22/24 20:59 500 mg BID RADHA Administration Atorvastatin Calcium 40 mg 10/23/24 21:00 11/01/24 21:10 Atorvastatin Calcium 20 Mg Tablet GT 11/22/24 20:59 40 mg HS RADHA Administration Baclofen 20 mg 10/23/24 18:00 11/02/24 11:27 Baclofen 10 Mg Tablet GT 11/22/24 17:59 20 mg Q6HR RADHA Administration Dextrose 25 ml 10/23/24 03:28 10/23/24 11:33 Dextrose 50%-Water Inj 50 Ml Syringe IV 11/22/24 03:27 25 ml Q15MIN PRN Administration BG 50-70 responsive npo pt Dextrose 50 ml 10/23/24 03:28 Dextrose 50%-Water Inj 50 Ml Syringe IV 11/22/24 03:27 Q15MIN PRN BG <50 OR BG <70 & pt unresponsive Enoxaparin Sodium 40 mg 10/23/24 09:00 11/02/24 09:32 Enoxaparin Sod Inj 40 Mg/0.4 Ml Syringe SC 11/06/24 08:59 40 mg QDAY RADHA Administration Fluconazole 400 mg 11/01/24 09:00 11/02/24 09:38 Fluconazole 100 Mg Tablet PO 11/08/24 08:59 400 mg QDAY RADHA Administration Gabapentin 300 mg 10/23/24 22:00 11/02/24 13:40 Gabapentin 300 Mg Capsule GT 11/22/24 21:59 300 mg TID RADHA Administration Glucagon 1 mg 10/23/24 03:28 Glucagon Inj 1 Mg Vial IM Q15MIN PRN BG <70, and no IV access Guaifenesin 100 mg 10/31/24 09:45 11/02/24 09:33 Guaifenesin Syrup 200 Mg/10 Ml Udc PO 11/30/24 09:44 100 mg BID RADHA Administration Protocol Lactulose 10 gm 10/24/24 09:00 11/02/24 09:32 Lactulose Syrup 20 Gm/30 Ml Udc GT 11/23/24 08:59 10 gm QDAY RADHA Administration Protocol Levalbuterol HCl 0.63 mg 10/31/24 10:39 11/01/24 15:20 Levalbuterol Rt 0.63 Mg/3 Ml Nebu INH 11/30/24 10:59 0.63 mg Q4HRRT PRN Administration Bronchospasm Levetiracetam 1,000 mg 10/23/24 09:00 11/02/24 09:34 Levetiracetam Liqd 500 Mg/5 Ml Udc GT 11/22/24 08:59 1,000 mg BID RADHA Administration Magnesium Oxide 400 mg 10/23/24 21:00 11/02/24 09:38 Magnesium Oxide 400 Mg Tablet GT 11/22/24 20:59 400 mg BID RADHA Administration Metoprolol Tartrate 100 mg 11/02/24 21:00 Metoprolol Tartrate 25 Mg Tablet PO 12/02/24 20:59 BID RADHA Multivitamins/Minerals 15 ml 10/24/24 09:00 11/02/24 09:31 Multivitamin 15 Ml Udc GT 11/23/24 08:59 15 ml QDAY RADHA Administration Olanzapine 5 mg 10/24/24 09:00 05/16/25 09:32 Olanzapine 5 Mg Tablet GT 11/23/24 08:59 5 mg QDAY RADHA Administration Sodium Chloride 4 ml 10/31/24 11:00 11/02/24 14:19 Sodium Cl Rt [place] 3% 4 Ml Nebu (Non-Formulary) INH 11/30/24 10:59 4 ml Q4HRRT RADHA Administration Plan 29-year-old male with past medical history of cocaine induced vasculitis, chronically trach and PEG, chronic quadriplegia, and history of seizure. He was admitted to the hospital on 10/23/2024 due to possible healthcare associated pneumonia. #Acute encephalopathy CT head performed relatively unremarkable, no acute intracranial pathology noted LP done yesterday, but was not revealing. Plan: ?Pending CSF culture and viral studies. ? Neurology consulted, appreciate recommendations Will speak with patient's family members concerning patient's current condition and to see what their wishes are. #Community-acquired pneumonia #Coccidiomycosis #Proteus mirabilis #Pseudomonas aeruginosa #Urogenital infection, Klebsiella pneumonia and Proteus mirabilis Patient was having some penile discharge and with noticed by manage therefore cultures grew Klebsiella and Proteus mirabilis on 10/27/2024 Patient had a course of Zosyn and vancomycin (10/23-10/30) and ceftriaxone (10/30/2024 - 10/31/2024) Patient's blood cultures have been negative and urine culture was also negative. Patient has been afebrile and diabetes had been downtrending, but up trended today likely reactive to the LP. Patient still has some secretions in the tracheostomy Patient still very tachycardic Plan: ?discontinue Zosyn 3.325 and Doxycycline 100 mg GT twice daily (10/30-11/02/2024) ? Fluconazole 400 mg daily ?ID consulted, appreciate commendations Will speak with patient's family members concerning patient's current condition and to see what their wishes are. #Sinus tachycardia vs SVT EKG on 10/25 with significant artifact but HR 158. Possibly secondary to infectious etiology Patient has still been very tachycardic this could be also due to dehydration as he has been having a lot of urine output. Plan: ? changed metoprolol tartrate 100mg BID ? Replete electrolytes as necessary #History of seizure disorder EEG did not show any epileptiform activity, however this does not rule out seizures. If the patient is seizing, likely secondary to underlying cause lowering seizure threshold such as infections above. ? Continue Keppra 1000 mg BID #Skin ulcerations on lower extremities and sacrum ? General Surgery consulted, bedside debridement performed ? Will discontinue Doxycycline #Agitation ? Olanzapine 5 mg daily #History of PEG tube dependence ? Ascorbic acid 500 mg BID ? Atorvastatin 40 mg HS #History of quadriplegia ? Gabapentin 300 mg TID ? Baclofen 20 mg q6hr #History of hypotension ? Holding midodrine 15 mg TID as BP has been stable Disposition: Pending goals of care with family Diet: TF Jevity 1.2 at 65 mL/h for 24 hours via G-tube by pump. GI prophylaxis: not indicated DVT prophylaxis: lovenox Code: DNR Case disclosed with Attending Dr. Carlos Holland PGY1 Attending Provider Attestation/Addendum I reviewed labs, imaging, EKG, home medications and prior available records. Face to face evaluation was performed by me. I have personally examined the patient and discussed assessment and plan with the IM team. I reviewed the resident note and agree with the plan with exceptions as below. Cocaine induced vasculitis Chronic encephalopathy Chronic hypoxic respiratory failure status post tracheostomy Status post PEG tube placement Acute febrile illness Right lower lobe pneumonia Cocci pneumonia Seizure disorder Heart rate is uncontrolled. Increased water flushes. Increased metoprolol to 100 mg twice daily. Ordered CTA that showed no acute PE. Tachycardia improved after IV hydration and metoprolol Finished a course of IV Zosyn Continue fluconazole Continue oxygen via tracheostomy Tylenol as needed for fevers Resume home seizure medications
[2024-11-02] MEDS: METOPROLOL TARTRATE 25 MG TABLET 100 MG PO (22:45)
[2024-11-02] MEDS: ATORVASTATIN CALCIUM 20 MG TABLET 40 MG GT (22:46)
[2024-11-03] VITALS (9 sets, daily range): BP systolic 105–120; BP diastolic 73–86; PULSE 76–101; RESP 16–25; TEMP 36.2–36.6; O2SAT 100
[2024-11-03] MEDS: BACLOFEN 10 MG TABLET 20 MG GT ×2 (00:41→07:00)
[2024-11-03] MEDS: SODIUM CL RT SOL 3% 4 ML NEBU (NON-FORMULARY) INH ×3 (02:10→10:37)
[2024-11-03 06:24] LABS: Basophils % (Auto) 1 % (0-2.5); Eosinophils # (Auto) 0.2 Thou/mm3 (0.0-0.5); Eosinophils % (Auto) 2 % (0-10); Hematocrit 27.9 % (41.0-53.0); Immature Granulocytes % (Auto) 0 % (0-0); Immature Granulocytes Auto 0.03 Thou/mm3 (0.00-0.00); Lymphocytes # (Auto) 1.3 Thou/mm3 (1.0-4.8); Lymphocytes % (Auto) 15 % (10-50); Mean Corpuscular HGB Conc 31.5 g/dl (31.0-37.0); Mean Corpuscular Hemoglobin 28.6 pg (25.0-35.0); Mean Corpuscular Volume 91 fL (80-100); Monocytes # (Auto) 1.3 Thou/mm3 (0.0-0.8); Monocytes % (Auto) 15 % (0-12); Neutrophils # (Auto) 5.8 Thou/mm3 (1.8-7.7); Neutrophils % (Auto) 67 % (37-80); Nucleated Red Blood Cell % 0 /100 WBC (0); Platelet Count 409 Thou/mm3 (140-440); RDW Standard Deviation 51.4 fL (35.1-43.9); Red Blood Count 3.08 Miln/mm3 (4.50-5.90); White Blood Count 8.6 Thou/mm3 (3.8-10.6)
[2024-11-03 06:38] LABS: Hemoglobin 8.8 g/dL (13.5-16.0)
[2024-11-03] MEDS: GABAPENTIN 300 MG CAPSULE GT (07:00)
[2024-11-03] MEDS: LEVALBUTEROL RT 0.63 MG/3 ML NEBU INH ×2 (07:13→10:37)
[2024-11-03 07:35] LABS: Alanine Aminotransferase 16 U/L (10-49); Albumin, Serum 3.6 gm/dL (3.5-5.0); Alkaline Phosphatase 89 U/L (46-116); Anion Gap 11 (7-16); Aspartate Amino Transferase 20 U/L (0-34); BUN/Creatinine Ratio 30 Ratio (12-20); Bilirubin,Total < 0.2 mg/dL (0.3-1.2); Blood Urea Nitrogen 15 mg/dL (9-23); Calcium 9.5 mg/dL (8.3-10.6); Calcium (Corrected) 9.8 mg/dL (8.5-10.1); Carbon Dioxide 26.8 mMol/L (20.0-31.0); Chloride 106 mMol/L (98-107); Creatinine (Component) 0.5 mg/dL (0.6-1.3); Estimated Creatinine Clearance 162.1 mL/min (>60); Free T4 (Free Thyroxine) 1.05 ng/dL (0.89-1.76); Globulin 3.6 gm/dL (2.3-3.5); Glucose 104 mg/dL (74-106); Osmolality,Calculated 287 (275-295); Potassium 3.5 mMol/L (3.4-5.1); Sodium 144 mMol/L (136-145); Thyroid Stimulating Hormone 0.96 uIU/mL (0.55-4.78); Total Protein 7.2 gm/dL (5.7-8.2); eGFR > 60 See Note
[2024-11-03] MEDS: LACTULOSE SYRUP 20 GM/30 ML UDC 10 GM GT (09:13)
[2024-11-03] MEDS: levETIRAcetam LIQD 500 MG/5 ML UDC 1000 MG GT (09:13)
[2024-11-03] MEDS: OLANZapine 5 MG TABLET GT (09:14)
[2024-11-03] MEDS: guaiFENesin SYRUP 200 MG/10 ML UDC 100 MG PO (09:14)
[2024-11-03] MEDS: METOPROLOL TARTRATE 25 MG TABLET 100 MG PO (09:14)
[2024-11-03] MEDS: MULTIVITAMIN 15 ML UDC GT (09:14)
[2024-11-03] MEDS: FLUCONAZOLE 100 MG TABLET 400 MG PO (09:14)
[2024-11-03] MEDS: ENOXAPARIN SOD INJ 40 MG/0.4 ML SYRINGE SC (09:14)
[2024-11-03] MEDS: ASCORBIC ACID 250 MG TABLET 500 MG GT (09:15)
[2024-11-03] MEDS: MAGNESIUM OXIDE 400 MG TABLET GT (09:15)
--- NOTE | 2024-11-03 09:17 | PC.SS ---
Engine Lathe Operator (AD) Cherry informed by GME Resident Dr. Musa that patient was ready for discharge, unable to contact family. AD requested that he contact Dr. Nichols to present case. Dr. Musa reported that patient can return to [facility], accepted by Dr. Nichols. AD contacted public services librarianTay (ext: [phone]). Per Jaquelin, RN needs to call her to give report, then she can provide a time for transfer. AD notified Storm and provided extension for Jaquelin to complete report. AD left packet on physical chart.
--- NOTE | 2024-11-03 10:17 | ESDS_ITS ---
Planned Discharge Date 11/03/24 DS: Providers Provider Date of admission: 10/23/24 01:59 Primary care physician: Physician No Primary/Family Admitting Provider: Juan Miguel Fields MD Attending Provider on Admission: Jorge Gonzalez MD Consults: 10/23/24 06:42 Referral Wound Care Routine Comment: pressure injury left posterior lower leg 10/23/24 06:43 Referral Registered Dietitian Routine Comment: peg tube from subacute 10/23/24 06:57 Referral Infection Control Routine Comment: Reason for Infection Control Referral: Multiple ABX (>2) Health Equity Referral - Knowledge Deficit Routine Comment: Positive screening for knowledge deficit needs. 10/28/24 11:56 Consult to General Surgery Stat Comment: Consulting Provider: Sumeet Angela 10/29/24 14:54 Referral Nutritional Services Routine Comment: Instructions: Wound stage progress post debridement Referral Wound Care Routine Comment: post debridement progression of pressure injury 10/30/24 13:38 Consult to Neurology / Tele-Neurology Routine Comment: Rule out meningitis, lumbar puncture Consulting Provider: Maurizio Burns 10/31/24 10:27 Consult to Infectious Diseases Routine Comment: Consulting Provider: Nick Vargas Attending Provider on DC: Jorge Gonzalez MD Discharging Provider: Jorge Gonzalez MD DS: Diagnosis Problem List Completed Was Problem List Reviewed/Reconciled?: Yes Hospital Course Hospital Course Hospital course: 29-year-old male with past medical history of cocaine induced vasculitis, chronically trach and PEG, chronic quadriplegia, and history of seizure. He was admitted to the hospital on 10/23/2024 due to possible healthcare associated pneumonia. Patient initially came into the ED with fevers tachycardia and tachypnea. Prior to this admission he had also been previously discharged with similar symptoms. Throughout the hospital stay patient continued to have spikes in fevers and continued to be tachycardic and his antibiotics were frequently changed and broaden. Given that patient also had a wound on the popliteal area surgery was consulted for debridement. Afterwards patient still continued to have some fevers and continued to be tachycardic therefore an LP was done which was fairly benign. Patient was found to have cocci and was started on fluconazole. ID saw the patient and stated that the patient would be continued on fluconazole for now and no need for other Abx. Patient's heart rate remained elevated even though his fevers had subsided and has not recurred for multiple days after fluconazole was started. He was placed on metoprolol tartrate 100 mg twice daily with significantly improved his heart rate and his blood pressure was still stable. Patient's CSF were negative and blood cultures were also negative. At this time patient was found to be medically cleared to be discharged back to the subacute and we contacted physician from subacute who agreed the patient could be taken back to the subacute. For previous 3 days prior to discharge patient's family was attempted to be contacted, but was unsuccessful as we could not reach them via phone to give them an update of the current condition. Given this patient will be discharged back to the subacute and will recommend to have goals of care discussion with the patient's family. At the time of discharge patient was stable enough to be discharged home. Discharge plan: Please follow-up with your primary care physician within 1 week after discharge. You have been started on metoprolol tartrate 100 mg twice daily for heart rate control and fluconazole 400mg daily. You have been given midodrine 5 mg 3 times daily as needed for SBP less than 90 and DBP less than 50. We have stopped your propranolol. Please continue taking all other medications as prescribed. Please come back to the ER if symptoms persist or worsen Problem list: #Community-acquired pneumonia #Coccidiomycosis #Proteus mirabilis #Pseudomonas aeruginosa #Urogenital infection, Klebsiella pneumonia and Proteus mirabilis #Acute encephalopathy #Sinus tachycardia #History of seizure disorder #Skin ulcerations on lower extremities and sacrum #History of quadriplegia #History of hypotension Case disclosed with Attending Dr. Carlos Holland PGY1 Status at Discharge Overall status at discharge: patient is progressing back to baseline Time Spent with Patient Time attestation: Total time spent providing and/or coordinating discharge services:>35 min Time spent: Greater than 30 minutes Exam Vital Signs Temp Pulse Resp BP Pulse Ox O2 Del Method O2 Flow Rate 97.5 F 95 22 H 114/86 H 100 Trach Collar 6 11/03/24 07:40 11/03/24 09:14 11/03/24 07:40 11/03/24 09:14 11/03/24 07:40 11/03/24 07:40 11/03/24 07:40 FiO2 28 11/03/24 07:40 Narrative Exam General: Quadriplegic, non verbal, no apparent acute distress, a not able to track Eyes: PERRL, EOMI. Anicteric Ears: No visible nasal discharge Nose: No visible nasal discharge. Mouth/Throat: Dry mucous membranes, no redness, ulcers improving likely due to skin breakdown Neck: Neck supple, no cervical lymphadenopathy. Lungs: Clear WES, but upper airway congestion not noted today, tracheostomy in place Cardio: Normal S1/S2, regular rhythm, tachycardic, no murmurs, no JVD or c arotid bruits Abdomen: Soft, no palpable masses, peristalsis present, no guarding or rebound, PEG tube in place without any bleeding or discharge. Extremities: Contractures of bilateral upper and lower extremities, no peripheral swelling, good capillary refills Skin: Dry and warm, Neuro: Cannot be appropriately assessed given patient is current condition. Pupils were reactive. Discharge Plan Plan Patient Disposition: Xfer Residential Acute Care Plan Goals: Please follow-up with your primary care physician within 1 week after discharge. You have been started on metoprolol tartrate 100 mg twice daily for heart rate control and fluconazole 400mg daily. You have been given midodrine 5 mg 3 times daily as needed for SBP less than 90 and DBP less than 50. We have stopped your propranolol. Please continue taking all other medications as prescribed. Please come back to the ER if symptoms persist or worsen Prescriptions/Referrals Prescriptions/Med Rec: Discontinued propranolol 10 mg tablet 10 mg feeding tube Q8H midodrine 5 mg tablet 15 mg feeding tube Q8HR No Action albuterol sulfate 2.5 mg /3 mL (0.083 %) solution for nebulization 2.5 mg inhalation Q4H PRN (Reason: shortness of breath or wheezing) 365 Days 0RF ascorbic acid (vitamin C) 500 mg tablet 500 mg G-tube BID 365 Days Qty: 365 0RF atorvastatin 40 mg tablet 40 mg G-tube HS 365 Days Qty: 365 0RF baclofen 20 mg tablet 20 mg G-tube Q6HR 365 Days Qty: 365 0RF fluconazole 100 mg tablet 400 mg PO QDAY 30 Days Qty: 120 0RF gabapentin 300 mg capsule 300 mg G-tube TID 365 Days Qty: 365 0RF lactulose 10 gram/15 mL solution 10 g feeding tube QDAY 30 Days Qty: 450 0RF lansoprazole 30 mg capsule,delayed release(DR/EC) 30 mg G-tube QDAY 365 Days Qty: 365 0RF levetiracetam 100 mg/mL solution 1,000 mg G-tube BID 365 Days Qty: 3650 0RF magnesium oxide 400 mg magnesium tablet 400 mg feeding tube BID 30 Days Qty: 30 0RF metoprolol tartrate 25 mg tablet 100 mg PO BID 365 Days Qty: 1460 0RF midodrine 5 mg tablet 5 mg PO TID PRN (Reason: SBP>90 and DBP>50 ) 365 Days 0RF Rx Instructions: do not give last dose of day after 6PM or within 4 hrs of bedtime multivitamin Tablet 1 tab G-tube QDAY 365 Days Qty: 365 0RF olanzapine 5 mg tablet 5 mg G-tube QDAY 365 Days Qty: 365 0RF ipratropium-albuterol 0.5 mg-3 mg(2.5 mg base)/3 mL solution for nebulization 3 ml INH Q2HR PRN (Reason: Wheezing) 365 Days 0RF bisacodyl [Dulcolax (bisacodyl)] 10 mg suppository 10 mg FL PRN PRN (Reason: No BM Per Bowel Management Protocol) 365 Days 0RF Rx Instructions: Administer as needed on 6th shift, if MOM ineffective. polyethylene glycol 3350 17 gram powder in packet 17 g G-tube PRN PRN (Reason: No BM Per Bowel Management Protocol) 365 Days 0RF Label Comments: Administer as needed if 2nd round bowel protocol ineffective. Rx Instructions: Mix with 4oz of water before giving. Hold tube feeding for 30 minutes after administration. Notify provider if no results from Miralax. magnesium hydroxide [Milk of Magnesia] 400 mg/5 mL suspension 30 ml G-tube PRN PRN (Reason: Constipation) 365 Days 0RF Rx Instructions: CONC: 400MG/5ML Fleet Enema 19-7 gram/118 mL enema 133 ml FL PRN PRN (Reason: No BM Per Bowel Management Protocol) 365 Days 0RF Label Comments: If Dulcolax is ineffective on 3rd day / 7th shift, give Fleets enema per Bowel Management Protocol. Notify MD if no results from Enema. Referrals: No Primary/Family,Physician [Primary Care Provider] - Patient/Caregiver Discharge Instructions Other Discharge Activity Instructions:: Please follow-up with your primary care physician within 1 week after discharge. You have been started on metoprolol tartrate 100 mg twice daily for heart rate control and fluconazole 400mg daily. You have been given midodrine 5 mg 3 times daily as needed for SBP less than 90 and DBP less than 50. We have stopped your propranolol. Please continue taking all other medications as prescribed. Please come back to the ER if symptoms persist or worsen Education Materials: Understanding Coccidioidomycosis Print Language: Hungarian Stand Alone Forms: Claudia Award Info., Patient Portal Info Letter Discharge Order Discharge Orders: Discharge (Routine); Ordered 11/03/24 Ordered By: Denny Holland Quality Discharge Quality Measures VTE prophylaxis Attestestation Attestation I reviewed labs, imaging, EKG, home medications and prior available records. Face to face evaluation was performed by me. I have personally examined the patient and discussed assessment and plan with the IM team. I reviewed the resident note and agree with the plan with exceptions as below. Cocaine induced vasculitis Chronic encephalopathy Chronic hypoxic respiratory failure status post tracheostomy Status post PEG tube placement Acute febrile illness Right lower lobe pneumonia Cocci pneumonia Seizure disorder Heart rate is now controlled. Continue metoprolol 100 mg twice daily Ordered CTA that showed no acute PE. Tachycardia improved after IV hydration and metoprolol Finished a course of IV Zosyn Continue fluconazole. Follow-up confirmatory test at [facility] Continue oxygen via tracheostomy Tylenol as needed for fevers Resume home seizure medications Time spent is 40 minutes. More than 50% of the time was spent on patient education and coordination of care.
--- NOTE | 2024-11-05 11:37 | PC.SS ---
SS received call from Morenita, Heel Sewer in [facility] who explained she did not receive PASRR when pt was d/c back on Tuesday. KEVIN has sent PASRR through file exchange, per Morenita's request.
[2024-11-06 17:51] LABS: Enterovirus Source CSF; HSV-1 DNA, CSF NOT DETECTED copies/mL; HSV-1 DNA, CSF Source CEREBROSPINAL FLUID; West Nile Virus (IgG), CSF <1.30
[2024-11-07 06:46] LABS: Enterovirus RNA, PCR CSF NOT DETECTED; HSV-2 DNA, CSF NOT DETECTED copies/mL; VDRL, CSF Qual* NON-REACTIVE; West Nile Virus (IgM), CSF <0.90
== END 2024-11-03 12:00 | DRG 137 ==
LOC: SERX 23:23 → SERHOLD 10-23 02:42 → S3SX 10-23 05:22
PROVIDERS: Psychiatry & Neurology Neurology; Student in an Organized Health Care Education/Training Program; Admitting Provider Internal Medicine; Emergency Provider Emergency Medicine; Visit Provider Student in an Organized Health Care Education/Training Program
DX: J15.0 Pneumonia due to Klebsiella pneumoniae (principal); Y95 Nosocomial condition; G82.50 Quadriplegia, unspecified; D64.9 Anemia, unspecified; G40.909 Epilepsy, unspecified, not intractable, without status epilepticus; L97.929 Non-pressure chronic ulcer of unspecified part of left lower leg with unspecified severity; E87.3 Alkalosis; K21.9 Gastro-esophageal reflux disease without esophagitis; J96.21 Acute and chronic respiratory failure with hypoxia; E78.5 Hyperlipidemia, unspecified; J15.1 Pneumonia due to Pseudomonas; E11.52 Type 2 diabetes mellitus with diabetic peripheral angiopathy with gangrene; I95.9 Hypotension, unspecified; Z66 Do not resuscitate; Z93.1 Gastrostomy status; Z93.0 Tracheostomy status; Z79.4 Long term (current) use of insulin; Z79.899 Other long term (current) drug therapy; T50.905A Adverse effect of unspecified drugs, medicaments and biological substances, initial encounter; G92.8 Other toxic encephalopathy; R36.9 Urethral discharge, unspecified; B38.7 Disseminated coccidioidomycosis
CPT/HCPCS: 36415; 36600; 70470; 71045; 71260; 71275; 74177; 80048; 80053; 80202; 81001; 82550; 82728; 82803; 82945; 83605; 83735; 84100; 84145; 84157; 84439; 84443; 84484; 85025; 85610; 85652; 85730; 86140; 86171; 86592; 86635; 86703; 86788; 86789; 87040; 87070; 87077; 87081; 87086; 87186; 87205; 87210; 87400; 87449; 87498; 87530; 87635; 87811; 89051; 93005; 93225; 94640; 94667; 95816; 96361; 96365; 96366; 96367; 96368; 99285; A4649; A9270; J0696; J1650; J1956; J2270; J2543; J3370; J3475; J3490; J7030; J7040; J7120; Q9967

== ENCOUNTER 2024-11-03 12:07 | Inpatient (IN) | payer OTHER, SELFPAY ==
[2024-11-03 12:48] VITALS: BP 113/76; PULSE 83; RESP 24; TEMP 35.7; O2SAT 99
--- NOTE | 2024-11-03 17:23 | PC.NURSE ---
Mr. Carmona was admitted to [facility] Sub-acute on 11/03/2024 at 1200, he was escorted by Med/Surg with one RN, one MANUFACTURING PROCESS TECHNICIAN, and one PORTRAIT PHOTOGRAPHER. He was transferred into bed without issue. He appears well hydrated and nourished, no signs of pain or discomfort, lung sounds course and unlabored, abdomen soft and non-tender, skin warm and pink; I&D to left posterior knee with minimal serosanguineous - I&D was performed on 10/28/2024. Dressing in place. New orders: Diflucan for Valley Fever; Metoprolol 100mg BID; Midodrine decreased from 15mg to 5mg and Stop Propranolol. BB 6 liters per minute. LBM 11/03. Last B. Continue with Jevity 1.2 per pervious order. Lumbar puncture 10/30.
[2024-11-03 18:00] VITALS: BP 113/78; PULSE 77; RESP 20; TEMP 35.8; O2SAT 99
[2024-11-03 19:09] VITALS: PULSE 60; PULSE 69; RESP 16; RESP 18; O2SAT 96; O2SAT 99
--- NOTE | 2024-11-03 20:30 | ESHP_ITS ---
Physical exam Physical Exam Vital signs: Temp Pulse Resp BP Pulse Ox O2 Del Method O2 Flow Rate 98.2 F 117 H 24 H 97/64 97 Blow-by 6 11/21/24 06:00 11/21/24 06:00 11/21/24 06:00 11/21/24 06:00 11/21/24 06:00 11/21/24 06:00 11/20/24 18:00 FiO2 28 11/20/24 18:00 Constitutional Comments: NAD HEENT Exam Comments: NAD. Cannot participate in evaluation Neck Exam Neck: Present supple Chest/Breast/Axilla Exam Comments: NAD Respiratory Exam Respiratory: Present chest non-tender, lungs clear and normal breath sounds Cardiovascular Exam Cardiovascular: Present RRR, S1 and S2 Abdominal Exam Comments: NAD Rectal Exam Comments: deferred Exam Comments: NAD Extremities Exam Comments: Quadriparesis Back/Spine/Pelvis Exam Comments: NAD Neurological Exam Comments: spontaneous eye opening, no response to verbal stimuli; quadriparesis; incon tinent of bladder and bowel. 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 failure/ Trach/ Peg, non responsive and with Quadriparesis. Pt was received back from acute care after treatment for hemodynamic instability and tachycardia
[2024-11-03] MEDS: ASCORBIC ACID 500 MG TABLET GT (20:55)
[2024-11-03] MEDS: ATORVASTATIN 40 MG TABLET GT (21:07)
[2024-11-03] MEDS: GABAPENTIN 300 MG CAPSULE GT (21:09)
[2024-11-03 22:05] VITALS: BP 104/71; PULSE 91
[2024-11-04] VITALS (7 sets, daily range): BP systolic 118–133; BP diastolic 70–87; PULSE 77–111; RESP 18–20; TEMP 36.1; O2SAT 99–100
[2024-11-04] MEDS: MAGNESIUM OXIDE 400 MG 400 EA FEED TUBE ×2 (00:10→12:00)
[2024-11-04] MEDS: BACLOFEN 20 MG TABLET GT ×4 (00:10→18:00)
[2024-11-04] MEDS: GABAPENTIN 300 MG CAPSULE GT ×3 (05:27→21:43)
[2024-11-04] MEDS: ASCORBIC ACID 500 MG TABLET GT ×2 (08:10→20:38)
[2024-11-04] MEDS: LACTULOSE 10 GM/15 ML 10 EA FEED TUBE (08:12)
[2024-11-04] MEDS: LANSOPRAZOLE 30 MG CAPSULE.DR GT (08:35)
[2024-11-04] MEDS: MULTIVITAMIN 1 TAB TABLET GT (08:35)
[2024-11-04] MEDS: FLUCONAZOLE 400 MG 400 EA PO (08:35)
[2024-11-04] MEDS: ATORVASTATIN 40 MG TABLET GT (20:40)
[2024-11-04] MEDS: METOPROLOL 25 MG TABLET 100 MG GT (20:42)
[2024-11-05] VITALS (8 sets, daily range): BP systolic 113–149; BP diastolic 78–92; PULSE 80–150; RESP 17–22; TEMP 36.1–38.8; O2SAT 98–100; BMI 15.7
[2024-11-05] MEDS: MAGNESIUM OXIDE 400 MG 400 EA FEED TUBE ×3 (00:29→23:10)
[2024-11-05] MEDS: BACLOFEN 20 MG TABLET GT ×5 (00:29→23:10)
[2024-11-05] MEDS: GABAPENTIN 300 MG CAPSULE GT ×3 (05:18→21:16)
[2024-11-05] MEDS: ASCORBIC ACID 500 MG TABLET GT ×2 (08:20→20:34)
[2024-11-05] MEDS: LACTULOSE 10 GM/15 ML 10 EA FEED TUBE (08:21)
[2024-11-05] MEDS: FLUCONAZOLE 400 MG 400 EA PO (08:21)
[2024-11-05] MEDS: LANSOPRAZOLE 30 MG CAPSULE.DR GT (08:22)
[2024-11-05] MEDS: MULTIVITAMIN 1 TAB TABLET GT (08:24)
[2024-11-05] MEDS: METOPROLOL 25 MG TABLET 100 MG GT ×2 (08:24→20:35)
[2024-11-05] MEDS: ACETAMINOPHEN 325 MG TABLET 650 MG GT ×2 (11:10→20:36)
[2024-11-05] MEDS: ATORVASTATIN 40 MG TABLET GT (20:34)
[2024-11-06] VITALS (8 sets, daily range): BP systolic 108–147; BP diastolic 73–91; PULSE 74–137; RESP 18–20; TEMP 36.6–37.9; O2SAT 97–99
[2024-11-06] MEDS: BACLOFEN 20 MG TABLET GT ×4 (05:16→23:13)
[2024-11-06] MEDS: GABAPENTIN 300 MG CAPSULE GT ×3 (05:16→21:35)
[2024-11-06] MEDS: ASCORBIC ACID 500 MG TABLET GT ×2 (07:52→20:51)
[2024-11-06] MEDS: FLUCONAZOLE 400 MG 400 EA PO (07:53)
[2024-11-06] MEDS: LACTULOSE 10 GM/15 ML 10 EA FEED TUBE (07:53)
[2024-11-06] MEDS: ACETAMINOPHEN 325 MG TABLET 650 MG GT ×2 (07:55→15:46)
[2024-11-06] MEDS: MULTIVITAMIN 1 TAB TABLET GT (10:59)
[2024-11-06] MEDS: METOPROLOL 25 MG TABLET 100 MG GT ×2 (10:59→20:52)
[2024-11-06] MEDS: LANSOPRAZOLE 30 MG CAPSULE.DR GT (10:59)
[2024-11-06] MEDS: MAGNESIUM OXIDE 400 MG 400 EA FEED TUBE ×2 (11:27→23:14)
--- NOTE | 2024-11-06 12:05 | PD.SAPROG ---
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 (7) Encephalopathy: Status: Chronic (8) Quadriparesis: Status: Chronic SUBJECTIVE Fever:: none Shortness of Breath:: none Pain:: none OBJECTIVE Most recent vital signs: Last Vital Signs Temp 98.2 F 11/21/24 06:00 Pulse 117 H 11/21/24 06:00 Resp 24 H 11/21/24 06:00 BP 97/64 11/21/24 06:00 Pulse Ox 97 11/21/24 06:00 O2 Del Method Blow-by 11/21/24 06:00 O2 Flow Rate 6 11/20/24 18:00 FiO2 28 11/20/24 18:00 Neurological:: PVS (spontaneous eye opening without any cognitive response to any stimuli) Speech:: none Answers questions:: no Respiratory:: lungs clear and shallow breathing Cardiovascular: RRR Abdomen: soft and nontender Extremities:: deformities (Quadriparesis, spastic contractures) Tracheostomy:: to blow by Feeding per:: G tube ASSESSMENT & PLAN Assessment: 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 VSS Plan: All current treatment as in acute care was reviewed and continued
--- NOTE | 2024-11-06 16:06 | PC.DIETICIAN ---
Dietitian note: Pt would benefit from calorie increase. IDT agree to change nutrition regimen: Jevity 1.5 @65ml/hr x22hrs to provide: 1430ml total vol, 2145kcal, 91g protein. Change to minimum 350ml water flush Q shift. Thank you
[2024-11-06] MEDS: ATORVASTATIN 40 MG TABLET GT (20:51)
[2024-11-07] VITALS (7 sets, daily range): BP systolic 107–141; BP diastolic 72–85; PULSE 97–147; RESP 18–24; TEMP 36.2–38.5; O2SAT 97–98
[2024-11-07] MEDS: BACLOFEN 20 MG TABLET GT ×3 (05:03→17:49)
[2024-11-07] MEDS: GABAPENTIN 300 MG CAPSULE GT ×3 (05:03→21:11)
[2024-11-07] MEDS: ACETAMINOPHEN 325 MG TABLET 650 MG GT (06:33)
--- NOTE | 2024-11-07 08:36 | PC.NURSE ---
Nurse Meche from [facility] shift hand off report regarding resident's fever to 101.3, Rechecked at 0630 102.6 R cooling measures and Tylenol was given. Initiated fever protocol by newswriter at this time. Will notify MD and family.
[2024-11-07 08:56] LABS: Collection Type, Urine Catheter; Squamous Epithelial Cell,Urine 0 /hpf (0-5)
[2024-11-07] MEDS: ASCORBIC ACID 500 MG TABLET GT ×2 (09:05→20:58)
[2024-11-07] MEDS: FLUCONAZOLE 400 MG 400 EA PO (09:05)
[2024-11-07] MEDS: LACTULOSE 10 GM/15 ML 10 EA FEED TUBE (09:05)
[2024-11-07] MEDS: LANSOPRAZOLE 30 MG CAPSULE.DR GT (09:05)
[2024-11-07] MEDS: METOPROLOL 25 MG TABLET 100 MG GT (09:06)
[2024-11-07] MEDS: MULTIVITAMIN 1 TAB TABLET GT (09:06)
[2024-11-07 09:13] LABS: Influenza A Ag Negative; Influenza B Ag Negative
[2024-11-07 09:44] LABS: Bacteria,Urine Rare; Bilirubin,Urine Negative (Negative); Blood,Urine Negative (Negative); Clarity,Urine Clear (Clear/Hazy); Color,Urine Lt-Yellow (Lt Yel-Yel); Culture Indicated,Urine Not Indicated; Glucose, Urine Negative (Negative); Ketones,Urine Negative (Negative); Leukocyte Esterase,Urine Negative (Negative); Nitrite,Urine Negative (Negative); PH,Urine 6.0 (5.0-7.0); Protein,Urine Negative (Neg - Trace); RBC,Urine 13 /hpf (0-3); Specific Gravity,Urine 1.019 (1.001-1.035); Urobilinogen,Urine Negative mg/dL (0.0-1.0); WBC,Urine 3 /hpf (0-5)
[2024-11-07 09:56] LABS: COVID-19 Antigen (In-House) Negative (Negative)
[2024-11-07 09:58] LABS: Basophils # (Auto) 0.0 Thou/mm3 (0.0-0.2); Basophils % (Auto) 0 % (0-2.5); Eosinophils # (Auto) 0.0 Thou/mm3 (0.0-0.5); Eosinophils % (Auto) 0 % (0-10); Hematocrit 27.5 % (41.0-53.0); Hemoglobin 9.0 g/dL (13.5-16.0); Immature Granulocytes Auto 0.06 Thou/mm3 (0.00-0.00); Lymphocytes # (Auto) 1.3 Thou/mm3 (1.0-4.8); Lymphocytes % (Auto) 8 % (10-50); Mean Corpuscular HGB Conc 32.7 g/dl (31.0-37.0); Mean Corpuscular Hemoglobin 28.6 pg (25.0-35.0); Mean Corpuscular Volume 87 fL (80-100); Monocytes # (Auto) 1.3 Thou/mm3 (0.0-0.8); Monocytes % (Auto) 8 % (0-12); Neutrophils # (Auto) 14.0 Thou/mm3 (1.8-7.7); Neutrophils % (Auto) 84 % (37-80); Nucleated Red Blood Cell # 0.00 Thou/mm3 (0.00-0.00); Nucleated Red Blood Cell % 0 /100 WBC (0); Platelet Count 374 Thou/mm3 (140-440); RDW Standard Deviation 50.4 fL (35.1-43.9); Red Blood Count 3.15 Miln/mm3 (4.50-5.90); White Blood Count 16.8 Thou/mm3 (3.8-10.6)
[2024-11-07 10:17] LABS: Procalcitonin 0.21 ng/ml (0.0-0.49)
--- NOTE | 2024-11-07 15:06 | PC.NURSE ---
Result for CBC and Procalcitonin in. reviewed with MD order to Monitor resident x24 hours for increased temperature. resident's temp 97.7 rectally checked. resident with not noted distress at this time. Will continue to monitor. Awaiting for all other test (cultures).
[2024-11-07] MEDS: ATORVASTATIN 40 MG TABLET GT (21:00)
[2024-11-08] VITALS (7 sets, daily range): BP systolic 98–135; BP diastolic 60–80; PULSE 85–109; RESP 16–23; TEMP 36.4–36.7; O2SAT 98–99; BMI 15.6
[2024-11-08] MEDS: BACLOFEN 20 MG TABLET GT ×5 (00:15→23:53)
[2024-11-08] MEDS: MAGNESIUM OXIDE 400 MG 400 EA FEED TUBE ×3 (00:15→23:54)
[2024-11-08] MEDS: GABAPENTIN 300 MG CAPSULE GT ×3 (05:37→22:15)
[2024-11-08] MEDS: ASCORBIC ACID 500 MG TABLET GT ×2 (08:18→20:30)
[2024-11-08] MEDS: FLUCONAZOLE 400 MG 400 EA PO (08:20)
[2024-11-08] MEDS: LANSOPRAZOLE 30 MG CAPSULE.DR GT (08:23)
[2024-11-08] MEDS: LACTULOSE 10 GM/15 ML 10 EA FEED TUBE (08:23)
[2024-11-08] MEDS: MULTIVITAMIN 1 TAB TABLET GT (08:28)
[2024-11-08] MEDS: ACETAMINOPHEN 325 MG TABLET 650 MG GT (17:00)
[2024-11-08] MEDS: ATORVASTATIN 40 MG TABLET GT (20:30)
[2024-11-08] MEDS: METOPROLOL 25 MG TABLET 100 MG GT (20:30)
[2024-11-09] VITALS (7 sets, daily range): BP systolic 111–128; BP diastolic 64–78; PULSE 92–115; RESP 18–22; TEMP 36.4–36.6; O2SAT 97–100
[2024-11-09] MEDS: BACLOFEN 20 MG TABLET GT ×2 (05:42→12:00)
[2024-11-09] MEDS: GABAPENTIN 300 MG CAPSULE GT ×3 (05:42→21:02)
[2024-11-09] MEDS: FLUCONAZOLE 400 MG 400 EA PO (08:37)
[2024-11-09] MEDS: LACTULOSE 10 GM/15 ML 10 EA FEED TUBE (08:37)
[2024-11-09] MEDS: ASCORBIC ACID 500 MG TABLET GT ×2 (08:37→20:48)
[2024-11-09] MEDS: LANSOPRAZOLE 30 MG CAPSULE.DR GT (08:39)
[2024-11-09] MEDS: METOPROLOL 25 MG TABLET 100 MG GT ×2 (08:42→20:50)
[2024-11-09] MEDS: MULTIVITAMIN 1 TAB TABLET GT (08:43)
[2024-11-09] MEDS: ACETAMINOPHEN 325 MG TABLET 650 MG GT ×2 (08:44→20:15)
[2024-11-09] MEDS: MAGNESIUM OXIDE 400 MG 400 EA FEED TUBE (12:35)
[2024-11-09] MEDS: ATORVASTATIN 40 MG TABLET GT (20:49)
[2024-11-10] VITALS (10 sets, daily range): BP systolic 101–136; BP diastolic 66–84; PULSE 76–122; RESP 16–20; TEMP 36.1–39.3; O2SAT 97–99
[2024-11-10] MEDS: BACLOFEN 20 MG TABLET GT ×4 (00:38→17:22)
[2024-11-10] MEDS: MAGNESIUM OXIDE 400 MG 400 EA FEED TUBE ×2 (00:38→23:23)
[2024-11-10] MEDS: GABAPENTIN 300 MG CAPSULE GT ×3 (05:32→21:19)
[2024-11-10] MEDS: METOPROLOL 25 MG TABLET 100 MG GT ×2 (08:22→20:42)
[2024-11-10] MEDS: ASCORBIC ACID 500 MG TABLET GT ×2 (08:22→20:40)
[2024-11-10] MEDS: LANSOPRAZOLE 30 MG CAPSULE.DR GT (08:22)
[2024-11-10] MEDS: LACTULOSE 10 GM/15 ML 10 EA FEED TUBE (08:22)
[2024-11-10] MEDS: FLUCONAZOLE 400 MG 400 EA PO (08:22)
[2024-11-10] MEDS: MULTIVITAMIN 1 TAB TABLET GT (08:23)
--- NOTE | 2024-11-10 14:10 | PD.SAPROG ---
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 (7) Encephalopathy: Status: Chronic (8) Quadriparesis: Status: Chronic SUBJECTIVE Fever:: none Shortness of Breath:: none Pain:: none OBJECTIVE Most recent vital signs: Last Vital Signs Temp 98.2 F 11/21/24 06:00 Pulse 117 H 11/21/24 06:00 Resp 24 H 11/21/24 06:00 BP 97/64 11/21/24 06:00 Pulse Ox 97 11/21/24 06:00 O2 Del Method Blow-by 11/21/24 06:00 O2 Flow Rate 6 11/20/24 18:00 FiO2 28 11/20/24 18:00 Neurological:: PVS (spontaneous eye opening without any cognitive response to any stimuli) Speech:: none Answers questions:: no Respiratory:: lungs clear and shallow breathing Cardiovascular: RRR Abdomen: soft and nontender Extremities:: deformities (Quadriparesis, spastic contractures) Tracheostomy:: to blow by Feeding per:: G tube ASSESSMENT & PLAN Assessment: 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 VSS . No pain issues Plan: All current treatment as in acute care was reviewed and continued
[2024-11-10] MEDS: ACETAMINOPHEN 325 MG TABLET 650 MG GT (16:00)
[2024-11-10] MEDS: ATORVASTATIN 40 MG TABLET GT (20:41)
[2024-11-11] VITALS (8 sets, daily range): BP systolic 107–123; BP diastolic 73–82; PULSE 79–125; RESP 18–20; TEMP 36.1–36.8; O2SAT 98–100
[2024-11-11] MEDS: BACLOFEN 20 MG TABLET GT ×5 (01:00→23:06)
[2024-11-11] MEDS: GABAPENTIN 300 MG CAPSULE GT ×3 (05:38→21:22)
[2024-11-11] MEDS: FLUCONAZOLE 400 MG 400 EA PO (08:41)
[2024-11-11] MEDS: ASCORBIC ACID 500 MG TABLET GT ×2 (08:41→20:25)
[2024-11-11] MEDS: LACTULOSE 10 GM/15 ML 10 EA FEED TUBE (08:42)
[2024-11-11] MEDS: LANSOPRAZOLE 30 MG CAPSULE.DR GT (08:43)
[2024-11-11] MEDS: METOPROLOL 25 MG TABLET 100 MG GT ×2 (08:44→20:27)
[2024-11-11] MEDS: MULTIVITAMIN 1 TAB TABLET GT (08:44)
[2024-11-11] MEDS: ACETAMINOPHEN 325 MG TABLET 650 MG GT ×2 (08:45→20:28)
[2024-11-11] MEDS: ATORVASTATIN 40 MG TABLET GT (20:26)
[2024-11-12] VITALS (7 sets, daily range): BP systolic 111–128; BP diastolic 69–84; PULSE 102–125; RESP 18–22; TEMP 36–36.2; O2SAT 98–99
[2024-11-12] MEDS: BACLOFEN 20 MG TABLET GT ×4 (05:16→23:16)
[2024-11-12] MEDS: MAGNESIUM OXIDE 400 MG 400 EA FEED TUBE ×2 (05:17→16:47)
[2024-11-12] MEDS: GABAPENTIN 300 MG CAPSULE GT ×3 (05:17→21:19)
[2024-11-12] MEDS: FLUCONAZOLE 400 MG 400 EA PO (08:25)
[2024-11-12] MEDS: ASCORBIC ACID 500 MG TABLET GT ×2 (08:25→20:21)
[2024-11-12] MEDS: LANSOPRAZOLE 30 MG CAPSULE.DR GT (08:26)
[2024-11-12] MEDS: MULTIVITAMIN 1 TAB TABLET GT (08:28)
[2024-11-12] MEDS: METOPROLOL 25 MG TABLET 100 MG GT ×2 (08:29→20:22)
--- NOTE | 2024-11-12 10:43 | PC.NURSE ---
Resident used to take Lacosamide 100 mg BID before he was sent out to the hospital. Resident came back with only order for Keppra 1,[address] mendoza and made aware. Keppra is fine at this time per MD.
--- NOTE | 2024-11-12 12:05 | PC.NURSE ---
Resident with an order for santyl to stage 4 right and left posterior knee. requiring prior authorization and usually takes 3-5 days per [facility] from [facility]. Said medicine ointment cost $345 per pharmacy. Called DON and made aware of it and said it's okay for pharmacy to send it.
[2024-11-12] MEDS: ACETAMINOPHEN 325 MG TABLET 650 MG GT (17:06)
[2024-11-12] MEDS: ATORVASTATIN 40 MG TABLET GT (20:21)
--- NOTE | 2024-11-12 20:42 | PC.NURSE ---
This nurse called resident RP for POSL and Zypreza consent, both numbers are out of service.
[2024-11-13] VITALS (8 sets, daily range): BP systolic 98–122; BP diastolic 63–87; PULSE 105–124; RESP 18–20; TEMP 36.3–36.6; O2SAT 98–99
[2024-11-13] MEDS: GABAPENTIN 300 MG CAPSULE GT ×3 (05:16→21:25)
[2024-11-13] MEDS: MAGNESIUM OXIDE 400 MG 400 EA FEED TUBE (05:16)
[2024-11-13] MEDS: BACLOFEN 20 MG TABLET GT ×2 (05:16→12:00)
[2024-11-13] MEDS: ASCORBIC ACID 500 MG TABLET GT ×2 (08:42→20:40)
[2024-11-13] MEDS: FLUCONAZOLE 400 MG 400 EA PO (08:43)
[2024-11-13] MEDS: LANSOPRAZOLE 30 MG CAPSULE.DR GT (08:44)
[2024-11-13] MEDS: LACTULOSE 10 GM/15 ML 10 EA FEED TUBE (08:44)
[2024-11-13] MEDS: METOPROLOL 25 MG TABLET 100 MG GT (08:46)
[2024-11-13] MEDS: MULTIVITAMIN 1 TAB TABLET GT (08:47)
--- NOTE | 2024-11-13 10:28 | PC.SS ---
Several attempts made to reach mother and father. All listed numbers are not working numbers, this SSD has mailed and emailed RP. Charge nurse and DON made aware.
--- NOTE | 2024-11-13 17:31 | PC.NURSE ---
Resident osmel was D/C around 1630
--- NOTE | 2024-11-13 17:36 | PC.NURSE ---
Resident continue to have episodes of elevated HR of above 100s. Currently on Metoprolol [address] Nichols made aware, no new orders made.
[2024-11-13] MEDS: ATORVASTATIN 40 MG TABLET GT (20:43)
[2024-11-13] MEDS: ACETAMINOPHEN 325 MG TABLET 650 MG GT (20:45)
[2024-11-14] VITALS (8 sets, daily range): BP systolic 91–125; BP diastolic 62–79; PULSE 90–117; RESP 18–28; TEMP 35.9–36.4; O2SAT 97–100
[2024-11-14] MEDS: BACLOFEN 20 MG TABLET GT ×5 (00:31→23:02)
[2024-11-14] MEDS: MAGNESIUM OXIDE 400 MG 400 EA FEED TUBE ×2 (05:06→16:00)
[2024-11-14] MEDS: GABAPENTIN 300 MG CAPSULE GT ×3 (05:06→21:27)
[2024-11-14] MEDS: ASCORBIC ACID 500 MG TABLET GT ×2 (09:22→20:41)
[2024-11-14] MEDS: FLUCONAZOLE 400 MG 400 EA PO (09:22)
[2024-11-14] MEDS: LANSOPRAZOLE 30 MG CAPSULE.DR GT (09:23)
[2024-11-14] MEDS: METOPROLOL 25 MG TABLET 100 MG GT ×2 (09:23→20:45)
[2024-11-14] MEDS: LACTULOSE 10 GM/15 ML 10 EA FEED TUBE (09:23)
[2024-11-14] MEDS: MULTIVITAMIN 1 TAB TABLET GT (09:24)
--- NOTE | 2024-11-14 12:01 | PC.IP ---
Addendum entered by Kori Esqueda LVN 11/14/24 12:12: Note that resident is recently finished course of Zosyn and Doxycycline, approximately 7-10 days ago. Original Note: Resident has history of not seeking out immunizations as independent adult. No consent from RP at this time for administration of Pneumococcal vaccine or Influenza; supply still in date on this unit. Has not consented to Covid for any clinic dates that may be available for residents.
--- NOTE | 2024-11-14 12:13 | PC.IP ---
Resident finished course of antibiotics after acute care admission;approximately one week ago. RP has not consented to any routine immunizations as resident did not seek immunizations as functioning adult. Will offer again for any seasonal updates or change for permissions to immunize.
--- NOTE | 2024-11-14 13:47 | PC.SS ---
Resident is laying in bed with head of the bed elevated with call light properly placed with no signs of distress. Resident is non verbal unable to make needs known, his decision maker is his mother. Resident has no changes in care or condition he remains on blow by with trach in place and GT for medication and nutrition. Resident will remain in current care and will have all subacute care needs met by staff. This SSD will continue to make daily contact with resident and monitor for changes in mood and behavior.
[2024-11-14] MEDS: ACETAMINOPHEN 325 MG TABLET 650 MG GT (20:40)
[2024-11-14] MEDS: ATORVASTATIN 40 MG TABLET GT (20:41)
[2024-11-15] VITALS (8 sets, daily range): BP systolic 93–114; BP diastolic 62–79; PULSE 80–114; RESP 18–19; TEMP 36–36.3; O2SAT 99–100
[2024-11-15] MEDS: BACLOFEN 20 MG TABLET GT ×4 (05:22→23:34)
[2024-11-15] MEDS: MAGNESIUM OXIDE 400 MG 400 EA FEED TUBE ×2 (05:22→17:40)
[2024-11-15] MEDS: GABAPENTIN 300 MG CAPSULE GT ×3 (05:22→21:37)
[2024-11-15] MEDS: ASCORBIC ACID 500 MG TABLET GT ×2 (09:32→21:36)
[2024-11-15] MEDS: LACTULOSE 10 GM/15 ML 10 EA FEED TUBE (09:33)
[2024-11-15] MEDS: FLUCONAZOLE 400 MG 400 EA PO (09:33)
[2024-11-15] MEDS: LANSOPRAZOLE 30 MG CAPSULE.DR GT (09:34)
[2024-11-15] MEDS: METOPROLOL 25 MG TABLET 100 MG GT ×2 (09:35→21:37)
[2024-11-15] MEDS: MULTIVITAMIN 1 TAB TABLET GT (09:36)
[2024-11-15] MEDS: ACETAMINOPHEN 325 MG TABLET 650 MG GT (21:35)
[2024-11-15] MEDS: ATORVASTATIN 40 MG TABLET GT (21:36)
[2024-11-16] VITALS (8 sets, daily range): BP systolic 110–132; BP diastolic 71–78; PULSE 73–125; RESP 18–20; TEMP 36.2–36.3; O2SAT 97–100
[2024-11-16] MEDS: BACLOFEN 20 MG TABLET GT ×3 (05:10→17:34)
[2024-11-16] MEDS: GABAPENTIN 300 MG CAPSULE GT ×3 (05:11→20:59)
[2024-11-16] MEDS: MAGNESIUM OXIDE 400 MG 400 EA FEED TUBE ×2 (05:11→17:30)
[2024-11-16] MEDS: ACETAMINOPHEN 325 MG TABLET 650 MG GT ×2 (08:30→21:03)
[2024-11-16] MEDS: FLUCONAZOLE 400 MG 400 EA PO (08:36)
[2024-11-16] MEDS: LACTULOSE 10 GM/15 ML 10 EA FEED TUBE (08:36)
[2024-11-16] MEDS: ASCORBIC ACID 500 MG TABLET GT ×2 (08:36→20:56)
[2024-11-16] MEDS: LANSOPRAZOLE 30 MG CAPSULE.DR GT (08:37)
[2024-11-16] MEDS: METOPROLOL 25 MG TABLET 100 MG GT ×2 (08:38→20:59)
[2024-11-16] MEDS: MULTIVITAMIN 1 TAB TABLET GT (08:39)
--- NOTE | 2024-11-16 12:20 | PD.SAPROG ---
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 (7) Encephalopathy: Status: Chronic (8) Quadriparesis: Status: Chronic SUBJECTIVE Fever:: none Shortness of Breath:: none Pain:: none OBJECTIVE Most recent vital signs: Last Vital Signs Temp 98.2 F 11/21/24 06:00 Pulse 117 H 11/21/24 06:00 Resp 24 H 11/21/24 06:00 BP 97/64 11/21/24 06:00 Pulse Ox 97 11/21/24 06:00 O2 Del Method Blow-by 11/21/24 06:00 O2 Flow Rate 6 11/20/24 18:00 FiO2 28 11/20/24 18:00 Neurological:: PVS (spontaneous eye opening without any cognitive response to any stimuli) Speech:: none Answers questions:: no Respiratory:: lungs clear and shallow breathing Cardiovascular: RRR Abdomen: soft and nontender Extremities:: deformities (Quadriparesis, spastic contractures) Tracheostomy:: to blow by Feeding per:: G tube ASSESSMENT & PLAN Assessment: 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 VSS . No pain issues. Tolerating feeding. Plan: All current treatment as in acute care was reviewed and continued
[2024-11-16] MEDS: ATORVASTATIN 40 MG TABLET GT (20:57)
[2024-11-17] VITALS (8 sets, daily range): BP systolic 102–120; BP diastolic 64–78; PULSE 89–125; RESP 18–20; TEMP 36–37.2; O2SAT 97–99
[2024-11-17] MEDS: BACLOFEN 20 MG TABLET GT ×5 (00:25→23:19)
[2024-11-17] MEDS: MAGNESIUM OXIDE 400 MG 400 EA FEED TUBE ×2 (05:27→16:00)
[2024-11-17] MEDS: GABAPENTIN 300 MG CAPSULE GT ×3 (05:42→21:56)
[2024-11-17] MEDS: FLUCONAZOLE 400 MG 400 EA PO (09:23)
[2024-11-17] MEDS: ASCORBIC ACID 500 MG TABLET GT ×2 (09:23→21:54)
[2024-11-17] MEDS: LACTULOSE 10 GM/15 ML 10 EA FEED TUBE (09:23)
[2024-11-17] MEDS: LANSOPRAZOLE 30 MG CAPSULE.DR GT (09:24)
[2024-11-17] MEDS: METOPROLOL 25 MG TABLET 100 MG GT ×2 (09:24→21:56)
[2024-11-17] MEDS: MULTIVITAMIN 1 TAB TABLET GT (09:24)
[2024-11-17] MEDS: ACETAMINOPHEN 325 MG TABLET 650 MG GT ×2 (09:24→21:54)
[2024-11-17] MEDS: ATORVASTATIN 40 MG TABLET GT (21:55)
[2024-11-18] VITALS (8 sets, daily range): BP systolic 104–132; BP diastolic 70–83; PULSE 69–112; RESP 18–26; TEMP 36.3–37; O2SAT 96–99
[2024-11-18] MEDS: MAGNESIUM OXIDE 400 MG 400 EA FEED TUBE ×2 (04:08→17:43)
[2024-11-18] MEDS: GABAPENTIN 300 MG CAPSULE GT ×3 (05:49→21:09)
[2024-11-18] MEDS: BACLOFEN 20 MG TABLET GT ×4 (05:49→23:20)
[2024-11-18] MEDS: FLUCONAZOLE 400 MG 400 EA PO (08:19)
[2024-11-18] MEDS: LACTULOSE 10 GM/15 ML 10 EA FEED TUBE (08:19)
[2024-11-18] MEDS: LANSOPRAZOLE 30 MG CAPSULE.DR GT (08:19)
[2024-11-18] MEDS: METOPROLOL 25 MG TABLET 100 MG GT ×2 (08:19→21:09)
[2024-11-18] MEDS: ASCORBIC ACID 500 MG TABLET GT ×2 (08:19→21:07)
[2024-11-18] MEDS: MULTIVITAMIN 1 TAB TABLET GT (08:20)
[2024-11-18] MEDS: ACETAMINOPHEN 325 MG TABLET 650 MG GT (17:43)
[2024-11-18] MEDS: ATORVASTATIN 40 MG TABLET GT (21:08)
[2024-11-19] VITALS (8 sets, daily range): BP systolic 96–121; BP diastolic 60–80; PULSE 80–109; RESP 16–20; TEMP 36.1–37.2; O2SAT 97–99
--- NOTE | 2024-11-19 00:03 | PC.NURSE ---
Elevated Temp: DENTAL INTERNSHIP reports a fever of 100.8. rectal. Cooling measures started.
--- NOTE | 2024-11-19 00:12 | PC.NURSE ---
Addendum entered by Meche Mitchell RN 11/19/24 00:18: Late enterance: 11/18/24@2300: Temp rechecked per rectal and is 99.0. Patient resting comfortably. Will continue to monitor. Original Note: Later enterence: date 11/18/24@2146: BALLOON DESIGN PRINTER reports a rectal temp of 100.8. Cooling measures started and will continue to monitor.
[2024-11-19] MEDS: ACETAMINOPHEN 325 MG TABLET 650 MG GT ×6 (02:19→21:07)
[2024-11-19] MEDS: MAGNESIUM OXIDE 400 MG 400 EA FEED TUBE ×2 (04:52→17:25)
[2024-11-19] MEDS: BACLOFEN 20 MG TABLET GT ×3 (05:02→17:00)
[2024-11-19] MEDS: GABAPENTIN 300 MG CAPSULE GT ×3 (05:02→21:09)
[2024-11-19] MEDS: ASCORBIC ACID 500 MG TABLET GT ×2 (08:36→21:08)
[2024-11-19] MEDS: FLUCONAZOLE 400 MG 400 EA PO (08:37)
[2024-11-19] MEDS: LACTULOSE 10 GM/15 ML 10 EA FEED TUBE (08:37)
[2024-11-19] MEDS: METOPROLOL 25 MG TABLET 100 MG GT ×2 (08:38→21:09)
[2024-11-19] MEDS: LANSOPRAZOLE 30 MG CAPSULE.DR GT (08:38)
[2024-11-19] MEDS: MULTIVITAMIN 1 TAB TABLET GT (08:40)
[2024-11-19] MEDS: ATORVASTATIN 40 MG TABLET GT (21:08)
[2024-11-20] VITALS (9 sets, daily range): BP systolic 97–106; BP diastolic 66–73; PULSE 90–136; RESP 17–22; TEMP 36.2–37.7; O2SAT 97–100; BMI 15.5
[2024-11-20] MEDS: BACLOFEN 20 MG TABLET GT ×4 (00:05→17:17)
[2024-11-20] MEDS: MAGNESIUM OXIDE 400 MG 400 EA FEED TUBE ×2 (05:10→17:17)
[2024-11-20] MEDS: GABAPENTIN 300 MG CAPSULE GT ×3 (05:10→22:10)
[2024-11-20] MEDS: FLUCONAZOLE 400 MG 400 EA PO (08:26)
[2024-11-20] MEDS: LANSOPRAZOLE 30 MG CAPSULE.DR GT (08:26)
[2024-11-20] MEDS: ASCORBIC ACID 500 MG TABLET GT ×2 (08:26→20:40)
[2024-11-20] MEDS: LACTULOSE 10 GM/15 ML 10 EA FEED TUBE (08:26)
[2024-11-20] MEDS: MULTIVITAMIN 1 TAB TABLET GT (08:28)
[2024-11-20] MEDS: MAGNESIUM HYDROXIDE 30 ML ORAL SUSP ML GT (08:29)
[2024-11-20] MEDS: ACETAMINOPHEN 325 MG TABLET 650 MG GT ×2 (11:22→20:40)
--- NOTE | 2024-11-20 15:39 | PC.NURSE ---
At approximately 1515 entered resident room with Natasha Weir CNA for attempt at positioning for off-loading of pressure at bilateral popliteal spaces. With two pillows adjusted just below knee and placed so top pillow is about 3 inches farther from popliteal space than bottom pillow; top pillow should be slightly pulled at center to assist with ankle and foot positioning. Suggested to Joe to try bilateral waffle boots to improve offloading and cushioning surfaces, while still maintaining a space off the mattress for popliteal area. Remind staff to check frequently for off-loading as this gentleman is not alert and tends to hyperextension. Does have some flexion in BLE; ankle ROM is limited. Anne Crowder RN came to room to evaluate position and visualized that popliteal areas were off the mattress bilaterally.
[2024-11-20] MEDS: ATORVASTATIN 40 MG TABLET GT (20:40)
[2024-11-21] VITALS (8 sets, daily range): BP systolic 96–110; BP diastolic 59–84; PULSE 84–128; RESP 18–24; TEMP 36.4–36.8; O2SAT 97–98
[2024-11-21] MEDS: BACLOFEN 20 MG TABLET GT ×4 (00:05→17:23)
[2024-11-21] MEDS: ACETAMINOPHEN 325 MG TABLET 650 MG GT ×3 (04:40→20:35)
[2024-11-21] MEDS: GABAPENTIN 300 MG CAPSULE GT ×2 (05:19→13:34)
[2024-11-21] MEDS: MAGNESIUM OXIDE 400 MG 400 EA FEED TUBE ×2 (05:19→16:33)
[2024-11-21] MEDS: LANSOPRAZOLE 30 MG CAPSULE.DR GT (08:31)
[2024-11-21] MEDS: LACTULOSE 10 GM/15 ML 10 EA FEED TUBE (08:31)
[2024-11-21] MEDS: ASCORBIC ACID 500 MG TABLET GT ×2 (08:31→20:35)
[2024-11-21] MEDS: MULTIVITAMIN 1 TAB TABLET GT (08:31)
[2024-11-21] MEDS: FLUCONAZOLE 400 MG 400 EA PO (08:31)
--- NOTE | 2024-11-21 16:05 | PD.SAPROG ---
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 (7) Encephalopathy: Status: Chronic (8) Quadriparesis: Status: Chronic SUBJECTIVE Fever:: none Shortness of Breath:: none Pain:: none OBJECTIVE Most recent vital signs: Last Vital Signs Temp 98.1 F 11/25/24 00:00 Pulse 109 H 11/25/24 00:00 Resp 22 H 11/25/24 00:00 BP 132/77 H 11/25/24 00:00 Pulse Ox 98 11/24/24 17:25 O2 Del Method Blow-by 11/24/24 17:25 O2 Flow Rate 6 11/24/24 12:20 FiO2 28 11/24/24 12:20 Neurological:: PVS (spontaneous eye opening without any cognitive response to any stimuli) Speech:: none Answers questions:: no Respiratory:: lungs clear and shallow breathing Cardiovascular: RRR Abdomen: soft and nontender Extremities:: deformities (Quadriparesis, spastic contractures) Tracheostomy:: to blow by Feeding per:: G tube ASSESSMENT & PLAN Assessment: 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 VSS . No pain issues. Tolerating feeding. Plan: All current treatment as in acute care was reviewed and continued
[2024-11-21] MEDS: ATORVASTATIN 40 MG TABLET GT (20:35)
[2024-11-22] VITALS (8 sets, daily range): BP systolic 104–125; BP diastolic 62–84; PULSE 91–123; RESP 18–20; TEMP 36–36.9; O2SAT 95–98
[2024-11-22] MEDS: BACLOFEN 20 MG TABLET GT ×4 (05:25→23:24)
[2024-11-22] MEDS: GABAPENTIN 300 MG CAPSULE GT ×3 (05:25→21:02)
[2024-11-22] MEDS: MAGNESIUM OXIDE 400 MG 400 EA FEED TUBE ×2 (05:36→17:03)
[2024-11-22] MEDS: ASCORBIC ACID 500 MG TABLET GT ×2 (08:58→21:02)
[2024-11-22] MEDS: LACTULOSE 10 GM/15 ML 10 EA FEED TUBE (08:59)
[2024-11-22] MEDS: LANSOPRAZOLE 30 MG CAPSULE.DR GT (08:59)
[2024-11-22] MEDS: FLUCONAZOLE 400 MG 400 EA PO (08:59)
[2024-11-22] MEDS: MULTIVITAMIN 1 TAB TABLET GT (09:01)
[2024-11-22] MEDS: METOPROLOL 25 MG TABLET 100 MG GT ×2 (09:01→21:00)
[2024-11-22] MEDS: ATORVASTATIN 40 MG TABLET GT (21:02)
[2024-11-23] VITALS: BP 104/71; PULSE 109; RESP 20; TEMP 36.8
[2024-11-23] MEDS: MAGNESIUM OXIDE 400 MG 400 EA FEED TUBE ×2 (05:13→17:28)
[2024-11-23] MEDS: GABAPENTIN 300 MG CAPSULE GT ×3 (05:13→22:00)
[2024-11-23] MEDS: BACLOFEN 20 MG TABLET GT ×3 (05:13→17:28)
[2024-11-23] MEDS: ACETAMINOPHEN 325 MG TABLET 650 MG GT ×2 (05:48→16:00)
[2024-11-23 06:00] VITALS: BP 115/83; PULSE 133; RESP 32; TEMP 36.6; O2SAT 100
[2024-11-23] MEDS: LANSOPRAZOLE 30 MG CAPSULE.DR GT (08:12)
[2024-11-23] MEDS: FLUCONAZOLE 400 MG 400 EA PO (08:12)
[2024-11-23] MEDS: ASCORBIC ACID 500 MG TABLET GT ×2 (08:12→20:20)
[2024-11-23] MEDS: LACTULOSE 10 GM/15 ML 10 EA FEED TUBE (08:12)
[2024-11-23 08:13] VITALS: BP 122/88; PULSE 65
[2024-11-23] MEDS: METOPROLOL 25 MG TABLET 100 MG GT ×2 (08:13→20:20)
[2024-11-23] MEDS: MULTIVITAMIN 1 TAB TABLET GT (08:13)
[2024-11-23 11:20] VITALS: PULSE 101; RESP 18; O2SAT 96
[2024-11-23 11:42] VITALS: BP 109/75; PULSE 98; RESP 19; TEMP 36.6
[2024-11-23 20:20] VITALS: BP 123/87; PULSE 100
[2024-11-23] MEDS: ATORVASTATIN 40 MG TABLET GT (20:20)
[2024-11-24] VITALS (7 sets, daily range): BP systolic 96–118; BP diastolic 69–76; PULSE 106–137; RESP 17–22; TEMP 36.1–36.6; O2SAT 95–98
[2024-11-24] MEDS: GABAPENTIN 300 MG CAPSULE GT ×3 (05:31→21:36)
[2024-11-24] MEDS: BACLOFEN 20 MG TABLET GT ×5 (05:32→23:52)
[2024-11-24] MEDS: MAGNESIUM OXIDE 400 MG 400 EA FEED TUBE ×2 (05:32→16:52)
[2024-11-24] MEDS: ASCORBIC ACID 500 MG TABLET GT ×2 (09:01→20:58)
[2024-11-24] MEDS: FLUCONAZOLE 400 MG 400 EA PO (09:02)
[2024-11-24] MEDS: LACTULOSE 10 GM/15 ML 10 EA FEED TUBE (09:03)
[2024-11-24] MEDS: METOPROLOL 25 MG TABLET 100 MG GT ×2 (09:03→20:58)
[2024-11-24] MEDS: LANSOPRAZOLE 30 MG CAPSULE.DR GT (09:03)
[2024-11-24] MEDS: MULTIVITAMIN 1 TAB TABLET GT (09:04)
[2024-11-24] MEDS: ACETAMINOPHEN 325 MG TABLET 650 MG GT (12:20)
[2024-11-24] MEDS: ATORVASTATIN 40 MG TABLET GT (20:58)
[2024-11-25] VITALS (7 sets, daily range): BP systolic 99–132; BP diastolic 60–78; PULSE 88–128; RESP 17–22; TEMP 36.4–37.1; O2SAT 97–98
[2024-11-25] MEDS: ACETAMINOPHEN 325 MG TABLET 650 MG GT ×2 (04:32→08:30)
[2024-11-25] MEDS: BACLOFEN 20 MG TABLET GT ×4 (05:01→23:47)
[2024-11-25] MEDS: GABAPENTIN 300 MG CAPSULE GT ×3 (05:01→22:48)
[2024-11-25] MEDS: MAGNESIUM OXIDE 400 MG 400 EA FEED TUBE ×2 (05:01→17:30)
[2024-11-25] MEDS: ASCORBIC ACID 500 MG TABLET GT ×2 (08:46→20:47)
[2024-11-25] MEDS: LACTULOSE 10 GM/15 ML 10 EA FEED TUBE (08:47)
[2024-11-25] MEDS: FLUCONAZOLE 400 MG 400 EA PO (08:47)
[2024-11-25] MEDS: LANSOPRAZOLE 30 MG CAPSULE.DR GT (08:50)
[2024-11-25] MEDS: MULTIVITAMIN 1 TAB TABLET GT (08:51)
[2024-11-25] MEDS: METOPROLOL 25 MG TABLET 100 MG GT (20:46)
[2024-11-25] MEDS: ATORVASTATIN 40 MG TABLET GT (20:47)
[2024-11-26] VITALS (9 sets, daily range): BP systolic 99–112; BP diastolic 62–76; PULSE 101–130; RESP 18–20; TEMP 36.2–36.4; O2SAT 99–100; BMI 15.6
[2024-11-26] MEDS: MAGNESIUM OXIDE 400 MG 400 EA FEED TUBE ×2 (05:18→17:30)
[2024-11-26] MEDS: BACLOFEN 20 MG TABLET GT ×3 (05:19→17:30)
[2024-11-26] MEDS: GABAPENTIN 300 MG CAPSULE GT ×3 (05:19→21:48)
[2024-11-26] MEDS: ASCORBIC ACID 500 MG TABLET GT ×2 (08:52→20:19)
[2024-11-26] MEDS: LACTULOSE 10 GM/15 ML 10 EA FEED TUBE (08:54)
[2024-11-26] MEDS: LANSOPRAZOLE 30 MG CAPSULE.DR GT (08:54)
[2024-11-26] MEDS: FLUCONAZOLE 400 MG 400 EA PO (08:54)
[2024-11-26] MEDS: MULTIVITAMIN 1 TAB TABLET GT (08:55)
[2024-11-26] MEDS: METOPROLOL 25 MG TABLET 100 MG GT ×2 (08:55→20:20)
[2024-11-26] MEDS: ACETAMINOPHEN 325 MG TABLET 650 MG GT ×2 (09:00→20:22)
--- NOTE | 2024-11-26 16:03 | PC.SS ---
RP informed of advanced directive offered in house, resident is unable to participate due to cognitive impairment and absence of speech. Family made aware of conservatorship options through court system. Family does not feel this to be necessary for now.
[2024-11-26] MEDS: ATORVASTATIN 40 MG TABLET GT (20:20)
[2024-11-26] MEDS: IBUPROFEN 100 MG/5 ML ORAL.SUSP 400 MG GT (23:35)
[2024-11-27] VITALS (8 sets, daily range): BP systolic 100–115; BP diastolic 71–82; PULSE 88–139; RESP 18–24; TEMP 35.9–36.7; O2SAT 99–100
[2024-11-27] MEDS: BACLOFEN 20 MG TABLET GT ×5 (00:52→23:41)
[2024-11-27] MEDS: GABAPENTIN 300 MG CAPSULE GT ×3 (05:18→21:10)
[2024-11-27] MEDS: MAGNESIUM OXIDE 400 MG 400 EA FEED TUBE ×2 (05:20→17:00)
[2024-11-27] MEDS: ASCORBIC ACID 500 MG TABLET GT ×2 (08:53→21:10)
[2024-11-27] MEDS: FLUCONAZOLE 400 MG 400 EA PO (08:53)
[2024-11-27] MEDS: LANSOPRAZOLE 30 MG CAPSULE.DR GT (08:55)
[2024-11-27] MEDS: LACTULOSE 10 GM/15 ML 10 EA FEED TUBE (08:55)
[2024-11-27] MEDS: METOPROLOL 25 MG TABLET 100 MG GT ×2 (08:56→21:09)
[2024-11-27] MEDS: MULTIVITAMIN 1 TAB TABLET GT (08:57)
[2024-11-27] MEDS: ACETAMINOPHEN 325 MG TABLET 650 MG GT (08:57)
[2024-11-27] MEDS: ATORVASTATIN 40 MG TABLET GT (21:10)
[2024-11-28] VITALS (7 sets, daily range): BP systolic 97–126; BP diastolic 55–79; PULSE 87–114; RESP 18–20; TEMP 36–36.3; O2SAT 99–100
[2024-11-28] MEDS: MAGNESIUM OXIDE 400 MG 400 EA FEED TUBE ×2 (05:15→16:38)
[2024-11-28] MEDS: GABAPENTIN 300 MG CAPSULE GT ×3 (05:15→22:00)
[2024-11-28] MEDS: BACLOFEN 20 MG TABLET GT ×3 (05:15→17:07)
[2024-11-28] MEDS: ACETAMINOPHEN 325 MG TABLET 650 MG GT ×2 (08:38→20:41)
[2024-11-28] MEDS: ASCORBIC ACID 500 MG TABLET GT ×2 (08:40→20:39)
[2024-11-28] MEDS: FLUCONAZOLE 400 MG 400 EA PO (08:41)
[2024-11-28] MEDS: LANSOPRAZOLE 30 MG CAPSULE.DR GT (08:43)
[2024-11-28] MEDS: LACTULOSE 10 GM/15 ML 10 EA FEED TUBE (08:43)
[2024-11-28] MEDS: METOPROLOL 25 MG TABLET 100 MG GT ×2 (08:46→20:40)
[2024-11-28] MEDS: MULTIVITAMIN 1 TAB TABLET GT (08:47)
[2024-11-28] MEDS: ATORVASTATIN 40 MG TABLET GT (20:39)
[2024-11-29] VITALS (9 sets, daily range): BP systolic 96–137; BP diastolic 66–79; PULSE 101–118; RESP 17–20; TEMP 36.1–36.7; O2SAT 97–100
[2024-11-29] MEDS: BACLOFEN 20 MG TABLET GT ×5 (05:15→23:09)
[2024-11-29] MEDS: GABAPENTIN 300 MG CAPSULE GT ×3 (05:15→21:52)
[2024-11-29] MEDS: MAGNESIUM OXIDE 400 MG 400 EA FEED TUBE ×2 (05:15→16:28)
[2024-11-29] MEDS: ASCORBIC ACID 500 MG TABLET GT ×2 (08:25→20:56)
[2024-11-29] MEDS: FLUCONAZOLE 400 MG 400 EA PO (08:26)
[2024-11-29] MEDS: LACTULOSE 10 GM/15 ML 10 EA FEED TUBE (08:26)
[2024-11-29] MEDS: LANSOPRAZOLE 30 MG CAPSULE.DR GT (08:26)
[2024-11-29] MEDS: MULTIVITAMIN 1 TAB TABLET GT (08:28)
[2024-11-29] MEDS: ACETAMINOPHEN 325 MG TABLET 650 MG GT (11:45)
--- NOTE | 2024-11-29 16:20 | PD.SAPROG ---
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 (7) Encephalopathy: Status: Chronic (8) Quadriparesis: Status: Chronic SUBJECTIVE Fever:: none Shortness of Breath:: none Pain:: none OBJECTIVE Most recent vital signs: Last Vital Signs Temp 98.1 F 11/29/24 12:00 Pulse 105 H 11/29/24 12:00 Resp 20 11/29/24 12:00 BP 137/79 H 11/29/24 12:00 Pulse Ox 98 11/29/24 07:01 O2 Del Method Blow-by 11/29/24 06:00 O2 Flow Rate 6 11/29/24 07:01 FiO2 28 11/29/24 07:01 Neurological:: PVS (spontaneous eye opening without any cognitive response to any stimuli) Speech:: none Answers questions:: no Respiratory:: lungs clear and shallow breathing Cardiovascular: RRR Abdomen: soft and nontender Extremities:: deformities (Quadriparesis, spastic contractures) Tracheostomy:: to blow by Feeding per:: G tube ASSESSMENT & PLAN Assessment: 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 VSS . No pain issues. Tolerating feeding. VSS. No evident pain issues Plan: All current treatment as in acute care was reviewed and continued
--- NOTE | 2024-11-29 16:48 | PC.NURSE ---
11/29/2024 During [facility] rounds today, patient would make grimacing facial expressions, moan in pain, and cry during each round. As well nurses rounds, patient would start to cry and make facial expressions while helping the nurse do the patient's treatments.During any type of turning or repositioning, patient makes grimacing facial expressions. -MIKE Fung
--- NOTE | 2024-11-29 17:00 | PC.NURSE ---
Patient was seen with facial grimacing and moaning while being changed and repositioned. Patient also has episodes of crying and moaning while treatments are being done as ordered. At 1145, PRN Tylenol 650mg via GT given for pain management. Patient is still seen with facial grimacing at 1500. Kept patient comfortable at all times.
[2024-11-29] MEDS: ATORVASTATIN 40 MG TABLET GT (20:56)
[2024-11-30] VITALS (8 sets, daily range): BP systolic 99–122; BP diastolic 63–85; PULSE 89–118; RESP 18–22; TEMP 36.1–36.6; O2SAT 98–100
[2024-11-30] MEDS: MAGNESIUM OXIDE 400 MG 400 EA FEED TUBE ×2 (05:12→17:21)
[2024-11-30] MEDS: BACLOFEN 20 MG TABLET GT ×3 (05:12→17:21)
[2024-11-30] MEDS: GABAPENTIN 300 MG CAPSULE GT ×2 (05:12→14:21)
[2024-11-30] MEDS: ASCORBIC ACID 500 MG TABLET GT ×2 (08:27→20:28)
[2024-11-30] MEDS: LACTULOSE 10 GM/15 ML 10 EA FEED TUBE (08:28)
[2024-11-30] MEDS: FLUCONAZOLE 400 MG 400 EA PO (08:28)
[2024-11-30] MEDS: MULTIVITAMIN 1 TAB TABLET GT (08:28)
[2024-11-30] MEDS: LANSOPRAZOLE 30 MG CAPSULE.DR GT (08:28)
[2024-11-30] MEDS: ACETAMINOPHEN 325 MG TABLET 650 MG GT ×2 (08:29→20:28)
--- NOTE | 2024-11-30 14:04 | PC.SS ---
Resident remains on blow by with with trach in place and GT for medication and nutrioin. He is awake unable to make needs known, his decision maker is his mother. Resident will remain in current care as he has no changes in care or condition, he will continue to have all subacute care needs met by staff. This SSD will continue to make daily contact with resident and will monitor for changes in mood and behavior
[2024-11-30] MEDS: ATORVASTATIN 40 MG TABLET GT (20:28)
[2024-12-01] VITALS (8 sets, daily range): BP systolic 95–127; BP diastolic 55–82; PULSE 82–118; RESP 18–24; TEMP 36.1–36.2; O2SAT 96–100
[2024-12-01] MEDS: BACLOFEN 20 MG TABLET GT ×4 (05:15→18:32)
[2024-12-01] MEDS: MAGNESIUM OXIDE 400 MG 400 EA FEED TUBE ×2 (05:15→16:20)
[2024-12-01] MEDS: GABAPENTIN 300 MG CAPSULE GT ×3 (05:16→21:29)
[2024-12-01] MEDS: ACETAMINOPHEN 325 MG TABLET 650 MG GT ×2 (05:17→21:32)
[2024-12-01] MEDS: ASCORBIC ACID 500 MG TABLET GT ×2 (09:52→21:31)
[2024-12-01] MEDS: FLUCONAZOLE 400 MG 400 EA PO (09:53)
[2024-12-01] MEDS: LACTULOSE 10 GM/15 ML 10 EA FEED TUBE (09:53)
[2024-12-01] MEDS: LANSOPRAZOLE 30 MG CAPSULE.DR GT (09:53)
[2024-12-01] MEDS: MULTIVITAMIN 1 TAB TABLET GT (09:54)
[2024-12-01] MEDS: METOPROLOL 25 MG TABLET 100 MG GT (09:54)
[2024-12-01] MEDS: ATORVASTATIN 40 MG TABLET GT (21:31)
[2024-12-02] VITALS (7 sets, daily range): BP systolic 92–124; BP diastolic 66–88; PULSE 87–120; RESP 18–21; TEMP 36.1–36.3; O2SAT 97–99
[2024-12-02] MEDS: BACLOFEN 20 MG TABLET GT ×5 (00:29→23:27)
[2024-12-02] MEDS: GABAPENTIN 300 MG CAPSULE GT ×3 (05:29→21:41)
[2024-12-02] MEDS: MAGNESIUM OXIDE 400 MG 400 EA FEED TUBE ×2 (05:29→17:03)
[2024-12-02] MEDS: ASCORBIC ACID 500 MG TABLET GT ×2 (08:41→21:42)
[2024-12-02] MEDS: LACTULOSE 10 GM/15 ML 10 EA FEED TUBE (08:42)
[2024-12-02] MEDS: FLUCONAZOLE 400 MG 400 EA PO (08:42)
[2024-12-02] MEDS: LANSOPRAZOLE 30 MG CAPSULE.DR GT (08:43)
[2024-12-02] MEDS: METOPROLOL 25 MG TABLET 100 MG GT (08:44)
[2024-12-02] MEDS: MULTIVITAMIN 1 TAB TABLET GT (08:44)
[2024-12-02] MEDS: ATORVASTATIN 40 MG TABLET GT (21:42)
[2024-12-03] VITALS (9 sets, daily range): BP systolic 97–109; BP diastolic 58–76; PULSE 64–116; RESP 18–20; TEMP 36.1–36.3; O2SAT 95–99
[2024-12-03] MEDS: BACLOFEN 20 MG TABLET GT ×4 (05:13→23:51)
[2024-12-03] MEDS: GABAPENTIN 300 MG CAPSULE GT ×3 (05:13→21:20)
[2024-12-03] MEDS: MAGNESIUM OXIDE 400 MG 400 EA FEED TUBE ×2 (05:13→17:32)
[2024-12-03] MEDS: LACTULOSE 10 GM/15 ML 10 EA FEED TUBE (08:23)
[2024-12-03] MEDS: LANSOPRAZOLE 30 MG CAPSULE.DR GT (08:23)
[2024-12-03] MEDS: FLUCONAZOLE 400 MG 400 EA PO (08:23)
[2024-12-03] MEDS: ASCORBIC ACID 500 MG TABLET GT ×2 (08:23→21:20)
[2024-12-03] MEDS: MULTIVITAMIN 1 TAB TABLET GT (08:25)
[2024-12-03] MEDS: MAGNESIUM HYDROXIDE 30 ML ORAL SUSP ML GT (12:07)
--- NOTE | 2024-12-03 13:10 | PD.SAPROG ---
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 (7) Encephalopathy: Status: Chronic (8) Quadriparesis: Status: Chronic SUBJECTIVE Fever:: none Shortness of Breath:: none Pain:: none OBJECTIVE Most recent vital signs: Last Vital Signs Temp 97.4 F 12/07/24 17:42 Pulse 99 12/07/24 20:47 Resp 18 12/07/24 20:47 BP 100/64 12/07/24 20:44 Pulse Ox 99 12/07/24 20:47 O2 Del Method Blow-by 12/07/24 17:42 O2 Flow Rate 6 12/07/24 20:47 FiO2 28 12/07/24 20:47 Neurological:: PVS (spontaneous eye opening without any cognitive response to any stimuli) Speech:: none Answers questions:: no Respiratory:: lungs clear and shallow breathing Cardiovascular: RRR Abdomen: soft and nontender Extremities:: deformities (Quadriparesis, spastic contractures) Tracheostomy:: to blow by Feeding per:: G tube ASSESSMENT & PLAN Assessment: 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 VSS . No pain issues. Tolerating feeding. VSS. No evident pain issues Plan: All current treatment as in acute care was reviewed and continued
[2024-12-03] MEDS: ATORVASTATIN 40 MG TABLET GT (21:20)
[2024-12-04] MEDS: BACLOFEN 20 MG TABLET GT ×3 (05:22→12:30)
[2024-12-04] MEDS: MAGNESIUM OXIDE 400 MG 400 EA FEED TUBE ×2 (05:23→17:30)
[2024-12-04] MEDS: GABAPENTIN 300 MG CAPSULE GT ×2 (05:23→22:08)
[2024-12-04 07:21] VITALS: PULSE 72; RESP 18; O2SAT 100
[2024-12-04] MEDS: FLUCONAZOLE 400 MG 400 EA PO (08:53)
[2024-12-04] MEDS: ASCORBIC ACID 500 MG TABLET GT ×2 (08:53→20:29)
[2024-12-04] MEDS: LACTULOSE 10 GM 10 EA FEED TUBE (08:54)
[2024-12-04] MEDS: LANSOPRAZOLE 30 MG CAPSULE.DR GT (08:55)
[2024-12-04 08:56] VITALS: BP 112/74; PULSE 99
[2024-12-04] MEDS: METOPROLOL 25 MG TABLET 100 MG GT (08:56)
[2024-12-04] MEDS: MULTIVITAMIN 1 TAB TABLET GT (08:56)
[2024-12-04 09:00] VITALS: PULSE 105; RESP 18; O2SAT 100
[2024-12-04 11:43] VITALS: BP 112/84; PULSE 106; RESP 19; TEMP 36.9
[2024-12-04 17:50] VITALS: BP 106/63; PULSE 111; RESP 20; TEMP 36.8; O2SAT 97
[2024-12-04] MEDS: ATORVASTATIN 40 MG TABLET GT (20:29)
[2024-12-04 21:00] VITALS: PULSE 76; RESP 18; O2SAT 99
[2024-12-05] VITALS (12 sets, daily range): BP systolic 94–136; BP diastolic 67–80; PULSE 75–134; RESP 18–20; TEMP 36.4–39.6; O2SAT 98–99; BMI 16.1
[2024-12-05] MEDS: ACETAMINOPHEN 325 MG TABLET 650 MG GT ×4 (00:14→23:27)
[2024-12-05] MEDS: BACLOFEN 20 MG TABLET GT ×5 (00:14→23:26)
--- NOTE | 2024-12-05 02:50 | PC.NURSE ---
Dr. Nichols made aware that Resident's HR is sustaining at 133. BP 115/69, RR 24, Temp 98.1 rectally, 02 sat 99%. Informed MD that Metoprolol was held at 2100 (BP 107/75) and noted that the last seven days, Metoprolol had been held x9 due to SBP less than 110. New orders received to give Metoprolol 100mg now via gtube and change parameter to hold Metoprolol if SBP less than 100 mmHg.
[2024-12-05] MEDS: METOPROLOL 25 MG TABLET 100 MG GT ×2 (03:02→09:16)
[2024-12-05] MEDS: MAGNESIUM OXIDE 400 MG 400 EA FEED TUBE ×2 (05:17→17:28)
[2024-12-05] MEDS: GABAPENTIN 300 MG CAPSULE GT ×4 (05:17→21:05)
[2024-12-05] MEDS: LACTULOSE 10 GM 10 EA FEED TUBE (09:16)
[2024-12-05] MEDS: FLUCONAZOLE 400 MG 400 EA PO (09:16)
[2024-12-05] MEDS: LANSOPRAZOLE 30 MG CAPSULE.DR GT (09:16)
[2024-12-05] MEDS: ASCORBIC ACID 500 MG TABLET GT ×2 (09:16→20:11)
[2024-12-05] MEDS: MULTIVITAMIN 1 TAB TABLET GT (09:17)
[2024-12-05] MEDS: ATORVASTATIN 40 MG TABLET GT (20:11)
[2024-12-06] VITALS (9 sets, daily range): BP systolic 91–104; BP diastolic 53–71; PULSE 85–134; RESP 17–20; TEMP 36.2–37.4; O2SAT 97–107
[2024-12-06] MEDS: MAGNESIUM OXIDE 400 MG 400 EA FEED TUBE ×2 (05:33→17:03)
[2024-12-06] MEDS: GABAPENTIN 300 MG CAPSULE GT ×3 (05:33→22:25)
[2024-12-06] MEDS: BACLOFEN 20 MG TABLET GT ×3 (05:33→17:03)
[2024-12-06] MEDS: ASCORBIC ACID 500 MG TABLET GT ×2 (08:04→20:46)
[2024-12-06] MEDS: FLUCONAZOLE 400 MG 400 EA PO (08:04)
[2024-12-06] MEDS: LACTULOSE 10 GM 10 EA FEED TUBE (08:05)
[2024-12-06] MEDS: LANSOPRAZOLE 30 MG CAPSULE.DR GT (08:05)
[2024-12-06] MEDS: MULTIVITAMIN 1 TAB TABLET GT (08:06)
[2024-12-06] MEDS: METOPROLOL 25 MG TABLET 100 MG GT (08:06)
[2024-12-06] MEDS: MAGNESIUM HYDROXIDE 30 ML ORAL SUSP ML GT (08:10)
[2024-12-06] MEDS: ACETAMINOPHEN 325 MG TABLET 650 MG GT (15:30)
[2024-12-06] MEDS: ATORVASTATIN 40 MG TABLET GT (20:46)
[2024-12-07] VITALS (8 sets, daily range): BP systolic 92–105; BP diastolic 56–71; PULSE 83–109; RESP 18–22; TEMP 35.9–36.5; O2SAT 97–99
[2024-12-07] MEDS: BACLOFEN 20 MG TABLET GT ×4 (00:10→17:45)
[2024-12-07] MEDS: GABAPENTIN 300 MG CAPSULE GT ×3 (05:28→22:10)
[2024-12-07] MEDS: MAGNESIUM OXIDE 400 MG 400 EA FEED TUBE ×2 (05:28→17:00)
[2024-12-07] MEDS: ASCORBIC ACID 500 MG TABLET GT ×2 (09:12→20:43)
[2024-12-07] MEDS: FLUCONAZOLE 400 MG 400 EA PO (09:12)
[2024-12-07] MEDS: LANSOPRAZOLE 30 MG CAPSULE.DR GT (09:13)
[2024-12-07] MEDS: LACTULOSE 10 GM 10 EA FEED TUBE (09:13)
[2024-12-07] MEDS: METOPROLOL 25 MG TABLET 100 MG GT ×2 (09:15→20:44)
[2024-12-07] MEDS: ACETAMINOPHEN 325 MG TABLET 650 MG GT ×2 (09:15)
[2024-12-07] MEDS: MULTIVITAMIN 1 TAB TABLET GT (09:16)
[2024-12-07] MEDS: ATORVASTATIN 40 MG TABLET GT (20:43)
[2024-12-08] VITALS (8 sets, daily range): BP systolic 90–117; BP diastolic 60–77; PULSE 64–102; RESP 16–20; TEMP 36.1–36.3; O2SAT 97–100
[2024-12-08] MEDS: BACLOFEN 20 MG TABLET GT ×5 (00:05→23:48)
[2024-12-08] MEDS: MAGNESIUM OXIDE 400 MG 400 EA FEED TUBE ×2 (05:00→17:26)
[2024-12-08] MEDS: GABAPENTIN 300 MG CAPSULE GT ×3 (05:40→21:11)
[2024-12-08] MEDS: ASCORBIC ACID 500 MG TABLET GT ×2 (08:30→20:57)
[2024-12-08] MEDS: LACTULOSE 10 GM 10 EA FEED TUBE (08:31)
[2024-12-08] MEDS: FLUCONAZOLE 400 MG 400 EA PO (08:31)
[2024-12-08] MEDS: LANSOPRAZOLE 30 MG CAPSULE.DR GT (08:32)
[2024-12-08] MEDS: METOPROLOL 25 MG TABLET 100 MG GT ×2 (08:33→20:56)
[2024-12-08] MEDS: MULTIVITAMIN 1 TAB TABLET GT (08:33)
[2024-12-08] MEDS: ACETAMINOPHEN 325 MG TABLET 650 MG GT (10:55)
[2024-12-08] MEDS: ATORVASTATIN 40 MG TABLET GT (20:57)
[2024-12-09] VITALS (8 sets, daily range): BP systolic 90–117; BP diastolic 52–76; PULSE 75–104; RESP 16–20; TEMP 35.9–36.8; O2SAT 97–99
[2024-12-09] MEDS: MAGNESIUM OXIDE 400 MG 400 EA FEED TUBE ×2 (05:26→17:33)
[2024-12-09] MEDS: GABAPENTIN 300 MG CAPSULE GT ×3 (05:26→21:12)
[2024-12-09] MEDS: BACLOFEN 20 MG TABLET GT ×4 (05:26→23:41)
[2024-12-09] MEDS: ASCORBIC ACID 500 MG TABLET GT ×2 (09:14→21:12)
[2024-12-09] MEDS: LACTULOSE 10 GM 10 EA FEED TUBE (09:15)
[2024-12-09] MEDS: FLUCONAZOLE 400 MG 400 EA PO (09:15)
[2024-12-09] MEDS: LANSOPRAZOLE 30 MG CAPSULE.DR GT (09:15)
[2024-12-09] MEDS: METOPROLOL 25 MG TABLET 100 MG GT (09:18)
[2024-12-09] MEDS: MULTIVITAMIN 1 TAB TABLET GT (09:18)
[2024-12-09] MEDS: ATORVASTATIN 40 MG TABLET GT (21:12)
[2024-12-09] MEDS: MAGNESIUM HYDROXIDE 30 ML ORAL SUSP ML GT (21:12)
[2024-12-10] VITALS (9 sets, daily range): BP systolic 92–105; BP diastolic 57–68; PULSE 67–105; RESP 18–20; TEMP 36.1–36.7; O2SAT 97–98
[2024-12-10] MEDS: BACLOFEN 20 MG TABLET GT ×3 (05:57→17:23)
[2024-12-10] MEDS: GABAPENTIN 300 MG CAPSULE GT ×3 (05:57→22:20)
[2024-12-10] MEDS: MAGNESIUM OXIDE 400 MG 400 EA FEED TUBE ×2 (05:57→17:00)
[2024-12-10] MEDS: FLUCONAZOLE 400 MG 400 EA PO (09:02)
[2024-12-10] MEDS: ASCORBIC ACID 500 MG TABLET GT ×2 (09:02→20:38)
[2024-12-10] MEDS: LACTULOSE 10 GM 10 EA FEED TUBE (09:03)
[2024-12-10] MEDS: LANSOPRAZOLE 30 MG CAPSULE.DR GT (09:03)
[2024-12-10] MEDS: MULTIVITAMIN 1 TAB TABLET GT (09:05)
[2024-12-10] MEDS: ATORVASTATIN 40 MG TABLET GT (20:38)
[2024-12-11] VITALS (8 sets, daily range): BP systolic 90–108; BP diastolic 52–74; PULSE 70–98; RESP 17–20; TEMP 36.1–36.2; O2SAT 95–99; BMI 16.0
[2024-12-11] MEDS: BACLOFEN 20 MG TABLET GT ×4 (00:05→17:19)
[2024-12-11] MEDS: MAGNESIUM OXIDE 400 MG 400 EA FEED TUBE (05:35)
[2024-12-11] MEDS: GABAPENTIN 300 MG CAPSULE GT ×3 (05:35→22:50)
[2024-12-11] MEDS: LANSOPRAZOLE 30 MG CAPSULE.DR GT (08:23)
[2024-12-11] MEDS: FLUCONAZOLE 400 MG 400 EA PO (08:23)
[2024-12-11] MEDS: LACTULOSE 10 GM 10 EA FEED TUBE (08:23)
[2024-12-11] MEDS: ASCORBIC ACID 500 MG TABLET GT ×2 (08:23→20:36)
[2024-12-11] MEDS: MULTIVITAMIN 1 TAB TABLET GT (08:24)
[2024-12-11] MEDS: ATORVASTATIN 40 MG TABLET GT (20:36)
[2024-12-11] MEDS: ACETAMINOPHEN 325 MG TABLET 650 MG GT (20:36)
--- NOTE | 2024-12-11 20:59 | PD.SAPROG ---
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 (7) Encephalopathy: Status: Chronic (8) Quadriparesis: Status: Chronic SUBJECTIVE Fever:: none Shortness of Breath:: none Pain:: none OBJECTIVE Most recent vital signs: Last Vital Signs Temp 97.2 F 12/11/24 17:40 Pulse 98 12/11/24 20:36 Resp 18 12/11/24 19:08 BP 95/58 L 12/11/24 20:36 Pulse Ox 95 12/11/24 19:08 O2 Del Method Blow-by 12/11/24 17:40 O2 Flow Rate 6 12/11/24 19:08 FiO2 28 12/11/24 19:08 Neurological:: PVS (spontaneous eye opening without any cognitive response to any stimuli) Speech:: none Answers questions:: no Respiratory:: lungs clear and shallow breathing Cardiovascular: RRR Abdomen: soft and nontender Extremities:: deformities (Quadriparesis, spastic contractures) Tracheostomy:: to blow by Feeding per:: G tube ASSESSMENT & PLAN Assessment: 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 VSS . No pain issues. Tolerating feeding. VSS. No evident pain issues Plan: All current treatment reviewed and continued
[2024-12-12] VITALS (8 sets, daily range): BP systolic 93–109; BP diastolic 63–70; PULSE 89–98; RESP 17–99; TEMP 36.1–36.4; O2SAT 97–99
[2024-12-12] MEDS: BACLOFEN 20 MG TABLET GT ×5 (00:13→23:51)
[2024-12-12] MEDS: GABAPENTIN 300 MG CAPSULE GT ×3 (05:13→21:41)
[2024-12-12] MEDS: ASCORBIC ACID 500 MG TABLET GT ×2 (08:38→20:48)
[2024-12-12] MEDS: FLUCONAZOLE 400 MG 400 EA PO (08:39)
[2024-12-12] MEDS: LACTULOSE 10 GM 10 EA FEED TUBE (08:39)
[2024-12-12] MEDS: LANSOPRAZOLE 30 MG CAPSULE.DR GT (08:39)
[2024-12-12] MEDS: MULTIVITAMIN 1 TAB TABLET GT (08:40)
[2024-12-12] MEDS: ATORVASTATIN 40 MG TABLET GT (20:48)
[2024-12-12] MEDS: METOPROLOL 25 MG TABLET 100 MG GT (20:48)
[2024-12-13] VITALS (9 sets, daily range): BP systolic 94–102; BP diastolic 58–65; PULSE 80–130; RESP 17–101; TEMP 36.1–36.6; O2SAT 97–101
[2024-12-13] MEDS: GABAPENTIN 300 MG CAPSULE GT ×3 (05:55→21:13)
[2024-12-13] MEDS: BACLOFEN 20 MG TABLET GT ×3 (05:55→17:16)
[2024-12-13] MEDS: ASCORBIC ACID 500 MG TABLET GT ×2 (09:17→21:12)
[2024-12-13] MEDS: FLUCONAZOLE 400 MG 400 EA PO (09:17)
[2024-12-13] MEDS: LACTULOSE 10 GM 10 EA FEED TUBE (09:18)
[2024-12-13] MEDS: LANSOPRAZOLE 30 MG CAPSULE.DR GT (09:18)
[2024-12-13] MEDS: MULTIVITAMIN 1 TAB TABLET GT (09:21)
[2024-12-13] MEDS: ATORVASTATIN 40 MG TABLET GT (21:13)
[2024-12-13] MEDS: ACETAMINOPHEN 325 MG TABLET 650 MG GT (21:22)
[2024-12-14] VITALS (9 sets, daily range): BP systolic 93–105; BP diastolic 51–63; PULSE 88–118; RESP 16–100; TEMP 36–36.3; O2SAT 98–100
[2024-12-14] MEDS: BACLOFEN 20 MG TABLET GT ×4 (00:16→17:09)
[2024-12-14] MEDS: GABAPENTIN 300 MG CAPSULE GT ×3 (05:50→21:38)
[2024-12-14 07:01] LABS: Alanine Aminotransferase 75 U/L (10-49); Albumin, Serum 3.5 gm/dL (3.5-5.0); Alkaline Phosphatase 246 U/L (46-116); Aspartate Amino Transferase 42 U/L (0-34); Total Protein 7.6 gm/dL (5.7-8.2)
[2024-12-14 07:02] LABS: Bilirubin,Direct < 0.1 mg/dL (0.0-0.3); Bilirubin,Total 0.2 mg/dL (0.3-1.2)
[2024-12-14] MEDS: FLUCONAZOLE 400 MG 400 EA PO (07:57)
[2024-12-14] MEDS: ASCORBIC ACID 500 MG TABLET GT ×2 (07:57→20:43)
[2024-12-14] MEDS: LANSOPRAZOLE 30 MG CAPSULE.DR GT (07:57)
[2024-12-14] MEDS: LACTULOSE 10 GM 10 EA FEED TUBE (07:57)
[2024-12-14] MEDS: MULTIVITAMIN 1 TAB TABLET GT (07:58)
[2024-12-14 12:06] LABS: Cocci Serology, IgM Negative (Negative)
[2024-12-14] MEDS: ATORVASTATIN 40 MG TABLET GT (20:44)
[2024-12-15] VITALS (9 sets, daily range): BP systolic 96–110; BP diastolic 60–69; PULSE 67–99; RESP 16–97; TEMP 36.1; O2SAT 97–100
[2024-12-15] MEDS: BACLOFEN 20 MG TABLET GT ×4 (00:21→17:07)
[2024-12-15] MEDS: GABAPENTIN 300 MG CAPSULE GT ×3 (05:14→22:15)
[2024-12-15] MEDS: LACTULOSE 10 GM 10 EA FEED TUBE (09:44)
[2024-12-15] MEDS: ASCORBIC ACID 500 MG TABLET GT ×2 (09:44→20:32)
[2024-12-15] MEDS: METOPROLOL 25 MG TABLET 100 MG GT ×2 (09:46→20:32)
[2024-12-15] MEDS: LANSOPRAZOLE 30 MG CAPSULE.DR GT (09:46)
[2024-12-15] MEDS: MULTIVITAMIN 1 TAB TABLET GT (09:47)
[2024-12-15 13:27] LABS: Cocci Serology, IgG Negative (Negative)
--- NOTE | 2024-12-15 14:18 | PD.SAPROG ---
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 (7) Encephalopathy: Status: Chronic (8) Quadriparesis: Status: Chronic SUBJECTIVE Fever:: none Shortness of Breath:: none Pain:: none OBJECTIVE Most recent vital signs: Last Vital Signs Temp 97.0 F 12/15/24 12:00 Pulse 69 12/15/24 12:00 Resp 17 12/15/24 12:00 BP 96/66 12/15/24 12:00 Pulse Ox 97 12/15/24 06:42 O2 Del Method Blow-by 12/14/24 17:37 O2 Flow Rate 6 12/15/24 06:42 FiO2 28 12/15/24 06:42 Neurological:: PVS (spontaneous eye opening without any cognitive response to any stimuli) Speech:: none Answers questions:: no Respiratory:: lungs clear and shallow breathing Cardiovascular: RRR Abdomen: soft and nontender Extremities:: deformities (Quadriparesis, spastic contractures) Tracheostomy:: to blow by Feeding per:: G tube ASSESSMENT & PLAN Assessment: 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 VSS . No pain issues. Tolerating feeding. VSS. No evident pain issues. Elevated AST/ALT repeat labs tomorrow Plan: All current treatment reviewed and continued
[2024-12-15] MEDS: ATORVASTATIN 40 MG TABLET GT (20:32)
[2024-12-16] VITALS (9 sets, daily range): BP systolic 90–102; BP diastolic 57–70; PULSE 74–87; RESP 16–99; TEMP 36.1–36.3; O2SAT 97–99
[2024-12-16] MEDS: BACLOFEN 20 MG TABLET GT ×4 (00:05→17:30)
[2024-12-16] MEDS: GABAPENTIN 300 MG CAPSULE GT ×3 (05:20→21:54)
[2024-12-16 07:28] LABS: Alanine Aminotransferase 52 U/L (10-49); Albumin, Serum 3.3 gm/dL (3.5-5.0); Alkaline Phosphatase 222 U/L (46-116); Aspartate Amino Transferase 32 U/L (0-34); Bilirubin,Direct < 0.1 mg/dL (0.0-0.3); Bilirubin,Total 0.2 mg/dL (0.3-1.2); Total Protein 7.7 gm/dL (5.7-8.2)
[2024-12-16] MEDS: ASCORBIC ACID 500 MG TABLET GT ×2 (08:55→20:50)
[2024-12-16] MEDS: LANSOPRAZOLE 30 MG CAPSULE.DR GT (08:55)
[2024-12-16] MEDS: LACTULOSE 10 GM 10 EA FEED TUBE (08:55)
[2024-12-16] MEDS: MULTIVITAMIN 1 TAB TABLET GT (08:56)
--- NOTE | 2024-12-16 13:58 | PC.NURSE ---
Reviewed F/U Liver panel report with On 12-15-24. ranges were elevated. Repeated lab again this am. numbers have gone down. Order to F/U with a lab to be repeat it on 12/19/24 in am. Resident remains stable. medication Fluconazole has been discontinued day before yesterday until further assessment and when serology test results are back.
[2024-12-16] MEDS: ATORVASTATIN 40 MG TABLET GT (20:50)
[2024-12-17] VITALS (9 sets, daily range): BP systolic 92–102; BP diastolic 50–61; PULSE 84–113; RESP 16–99; TEMP 36.1–36.3; O2SAT 97–99; BMI 16.5
[2024-12-17] MEDS: BACLOFEN 20 MG TABLET GT ×4 (00:43→17:25)
[2024-12-17] MEDS: GABAPENTIN 300 MG CAPSULE GT ×3 (05:34→21:28)
[2024-12-17] MEDS: LANSOPRAZOLE 30 MG CAPSULE.DR GT (09:20)
[2024-12-17] MEDS: LACTULOSE 10 GM 10 EA FEED TUBE (09:20)
[2024-12-17] MEDS: ASCORBIC ACID 500 MG TABLET GT ×2 (09:20→20:33)
[2024-12-17] MEDS: MULTIVITAMIN 1 TAB TABLET GT (09:21)
--- NOTE | 2024-12-17 10:20 | PC.NURSE ---
Mr. Carmona, specimen collected on 12/14/24 Cocci Serology, Igm and Cocci Serology IgG, both are negative. A negtive cocci serology (IgM or IgG) does not rule out the diagnosis. Suggest repeat in two weeks if clinically indicated.
--- NOTE | 2024-12-17 13:00 | PD.SAPROG ---
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 (7) Encephalopathy: Status: Chronic (8) Quadriparesis: Status: Chronic SUBJECTIVE Fever:: none Shortness of Breath:: none Pain:: none OBJECTIVE Most recent vital signs: Last Vital Signs Temp 94.1 F L 12/20/24 04:20 Pulse 88 12/20/24 04:20 Resp 16 12/20/24 04:20 BP 80/55 L 12/20/24 04:20 Pulse Ox 99 12/20/24 04:20 O2 Del Method Blow-by 12/20/24 04:20 O2 Flow Rate 6 12/20/24 04:20 FiO2 28 12/20/24 04:20 Neurological:: PVS (spontaneous eye opening without any cognitive response to any stimuli) Speech:: none Answers questions:: no Respiratory:: lungs clear and shallow breathing Cardiovascular: RRR Abdomen: soft and nontender Extremities:: deformities (Quadriparesis, spastic contractures) Tracheostomy:: to blow by Feeding per:: G tube ASSESSMENT & PLAN Assessment: 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 VSS . No pain issues. Tolerating feeding. VSS. No evident pain issues. Elevated AST/ALT repeat labs tomorrow Plan: All current treatment reviewed and continued
[2024-12-17] MEDS: ACETAMINOPHEN 325 MG TABLET 650 MG GT (20:33)
[2024-12-17] MEDS: ATORVASTATIN 40 MG TABLET GT (20:33)
[2024-12-18] VITALS (7 sets, daily range): BP systolic 92–103; BP diastolic 52–66; PULSE 83–108; RESP 17–97; TEMP 36–36.2; O2SAT 96–100
[2024-12-18] MEDS: BACLOFEN 20 MG TABLET GT ×4 (00:10→17:12)
[2024-12-18] MEDS: GABAPENTIN 300 MG CAPSULE GT ×3 (05:25→21:31)
[2024-12-18] MEDS: ASCORBIC ACID 500 MG TABLET GT ×2 (08:15→20:38)
[2024-12-18] MEDS: LACTULOSE 10 GM 10 EA FEED TUBE (08:15)
[2024-12-18] MEDS: LANSOPRAZOLE 30 MG CAPSULE.DR GT (08:15)
[2024-12-18] MEDS: MULTIVITAMIN 1 TAB TABLET GT (08:17)
--- NOTE | 2024-12-18 17:16 | PC.NURSE ---
Last CBC drawn 11/07/24 with WBC of 16.8, afebrile. With stage [address] Nichols reviwed last CBC results, no new orders made at this time.
--- NOTE | 2024-12-18 17:21 | PC.NURSE ---
Resident on Metoprolol 100 mg BID to hold if SBP <100 or HR<60 and was being held x 15 since 12/05/24. Dr Nichols made aware, no new orders made at this time.
[2024-12-18] MEDS: METOPROLOL 25 MG TABLET 100 MG GT (20:37)
[2024-12-18] MEDS: ATORVASTATIN 40 MG TABLET GT (20:38)
[2024-12-19] VITALS (9 sets, daily range): BP systolic 94–108; BP diastolic 55–67; PULSE 87–106; RESP 16–99; TEMP 36–36.3; O2SAT 96–99
[2024-12-19] MEDS: BACLOFEN 20 MG TABLET GT ×4 (00:04→17:32)
[2024-12-19] MEDS: GABAPENTIN 300 MG CAPSULE GT ×2 (05:17→14:06)
[2024-12-19 07:44] LABS: Alanine Aminotransferase 47 U/L (10-49); Albumin, Serum 3.4 gm/dL (3.5-5.0); Alkaline Phosphatase 298 U/L (46-116); Aspartate Amino Transferase 36 U/L (0-34); Bilirubin,Direct < 0.1 mg/dL (0.0-0.3); Bilirubin,Total 0.2 mg/dL (0.3-1.2); Total Protein 7.9 gm/dL (5.7-8.2)
[2024-12-19] MEDS: ASCORBIC ACID 500 MG TABLET GT ×2 (08:44→20:34)
[2024-12-19] MEDS: LACTULOSE 10 GM 10 EA FEED TUBE (08:45)
[2024-12-19] MEDS: LANSOPRAZOLE 30 MG CAPSULE.DR GT (08:45)
[2024-12-19] MEDS: MULTIVITAMIN 1 TAB TABLET GT (08:47)
--- NOTE | 2024-12-19 15:28 | PC.NURSE ---
. made aware liver panel result no new order received.
[2024-12-19] MEDS: ATORVASTATIN 40 MG TABLET GT (20:34)
[2024-12-20] VITALS: BP 105/70; PULSE 92; RESP 16; TEMP 36.1; O2SAT 99
[2024-12-20 04:20] VITALS: BP 80/55; PULSE 88; RESP 16; TEMP 34.5; O2SAT 99
--- NOTE | 2024-12-20 04:39 | PC.NURSE ---
RESIDENT SENT TO ER VIA BED WITH PEDRO KIM AND RT VITA FOR FURTHER EVALUATION. RESIDENT WITH LOW BP 83/50 HR 88 RR 16 WITH RECTAL TEMP 94.1. RESIDENT LESS AWAKE. ATTEMPTED TO CALL MOTHER AND FATHER BUT NUMBERS ON THE FACESHEET NOT IN SERVICE.
--- NOTE | 2024-12-26 13:46 | PC.SS ---
This SSD called resident mother Sara to inform her resident returned to unit. Sara had no questions and said she would be in for a visit soon. Charge nurse made aware.
[2024-12-26] MEDS: GABAPENTIN 300 MG CAPSULE GT ×2 (14:00→21:27)
--- NOTE | 2024-12-26 14:38 | PC.NURSE ---
Resident came back from Med surg at around 13:24 via bed . No s/s of respiratory distress noted. No s/s of pain or discomfort. No new orders received. Resident was positive for influenza when he was admitted in the hospital and had already completed the ATB as per report. Resident will be on droplet precaution until Tuesday as per IP. Notified Dr mendoza that resident came back, resident to continue previous med orders. 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 Resident's mom was notified by SS.
[2024-12-26] MEDS: BACLOFEN 20 MG TABLET GT ×2 (17:59→23:23)
[2024-12-26 18:00] VITALS: BP 117/82; PULSE 72; RESP 22; TEMP 35.9; O2SAT 99
[2024-12-26 19:00] VITALS: PULSE 95; RESP 18; RESP 98; O2SAT 98
[2024-12-26 21:26] VITALS: BP 133/86; PULSE 76
[2024-12-26] MEDS: METOPROLOL 25 MG TABLET 100 MG GT (21:26)
[2024-12-26] MEDS: ATORVASTATIN 40 MG TABLET GT (21:26)
[2024-12-26] MEDS: ASCORBIC ACID 500 MG TABLET GT (21:27)
--- NOTE | 2024-12-26 22:15 | PD.SAPROG ---
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 (7) Encephalopathy: Status: Chronic (8) Quadriparesis: Status: Chronic SUBJECTIVE Fever:: none Shortness of Breath:: none Pain:: none OBJECTIVE Most recent vital signs: Last Vital Signs Temp 97.0 F 12/29/24 05:53 Pulse 68 12/29/24 08:32 Resp 20 12/29/24 05:53 BP 91/55 L 12/29/24 08:32 Pulse Ox 97 12/29/24 05:53 O2 Del Method Blow-by 12/29/24 05:53 O2 Flow Rate 6 12/28/24 19:05 FiO2 28 12/28/24 19:05 Neurological:: PVS (spontaneous eye opening without any cognitive response to any stimuli) Speech:: none Answers questions:: no Respiratory:: lungs clear and shallow breathing Cardiovascular: RRR Abdomen: soft and nontender Extremities:: deformities (Quadriparesis, spastic contractures) Tracheostomy:: to blow by Feeding per:: G tube ASSESSMENT & PLAN Assessment: 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 VSS . No pain issues. Tolerating feeding. VSS. No evident pain issues. Elevated AST/ALT Pt was transferred to ER/Hospitalized on 12/20/24 and treated for Influenza and bacterial pn and now returned to S/Ac on 12/26/24 in a stable condition with all medications continued as before. Plan: All current treatment reviewed and continued
[2024-12-27] VITALS (8 sets, daily range): BP systolic 104–118; BP diastolic 67–79; PULSE 67–105; RESP 18–99; TEMP 35.9–36.4; O2SAT 97–99
[2024-12-27] MEDS: BACLOFEN 20 MG TABLET GT ×4 (05:01→23:55)
[2024-12-27] MEDS: GABAPENTIN 300 MG CAPSULE GT ×3 (05:01→21:02)
[2024-12-27] MEDS: LACTULOSE 10 GM 10 EA FEED TUBE (08:34)
[2024-12-27] MEDS: MULTIVITAMIN 1 TAB TABLET GT (08:34)
[2024-12-27] MEDS: METOPROLOL 25 MG TABLET 100 MG GT ×2 (08:34→20:41)
[2024-12-27] MEDS: LANSOPRAZOLE 30 MG CAPSULE.DR GT (08:34)
[2024-12-27] MEDS: ASCORBIC ACID 500 MG TABLET GT ×2 (08:34→20:42)
[2024-12-27] MEDS: ATORVASTATIN 40 MG TABLET GT (20:41)
[2024-12-28] VITALS (8 sets, daily range): BP systolic 102–112; BP diastolic 65–79; PULSE 80–102; RESP 18–99; TEMP 36.3–36.7; O2SAT 99
[2024-12-28] MEDS: BACLOFEN 20 MG TABLET GT ×3 (05:28→17:23)
[2024-12-28] MEDS: GABAPENTIN 300 MG CAPSULE GT ×3 (05:28→22:43)
[2024-12-28] MEDS: LANSOPRAZOLE 30 MG CAPSULE.DR GT (08:50)
[2024-12-28] MEDS: ASCORBIC ACID 500 MG TABLET GT ×2 (08:50→20:43)
[2024-12-28] MEDS: LACTULOSE 10 GM 10 EA FEED TUBE (08:50)
[2024-12-28] MEDS: METOPROLOL 25 MG TABLET 100 MG GT (08:51)
[2024-12-28] MEDS: MULTIVITAMIN 1 TAB TABLET GT (08:51)
--- NOTE | 2024-12-28 09:55 | PC.SS ---
Resident remains on blow by with trach in place and GT for medication and nutrition. Resident is unable to make needs known due to cognitive impairment and and absence of speech, his mother Sara is his decision maker. Resident will remain in current care as his family is unable to care for him at home due to heavy and complicated care regimen. Resident will continue to have all subacute care needs met by staff. This SSD will continue to make daily contact with resident and will monitor for changes in mood and behavior.
[2024-12-28] MEDS: ATORVASTATIN 40 MG TABLET GT (20:44)
[2024-12-29] VITALS (8 sets, daily range): BP systolic 91–115; BP diastolic 55–77; PULSE 56–104; RESP 17–99; TEMP 36–36.1; O2SAT 97–99
[2024-12-29] MEDS: BACLOFEN 20 MG TABLET GT ×4 (05:35→17:51)
[2024-12-29] MEDS: GABAPENTIN 300 MG CAPSULE GT ×3 (05:35→22:00)
[2024-12-29] MEDS: ASCORBIC ACID 500 MG TABLET GT ×2 (08:24→20:53)
[2024-12-29] MEDS: LACTULOSE 10 GM 10 EA FEED TUBE (08:25)
[2024-12-29] MEDS: LANSOPRAZOLE 30 MG CAPSULE.DR GT (08:32)
[2024-12-29] MEDS: MULTIVITAMIN 1 TAB TABLET GT (08:34)
--- NOTE | 2024-12-29 11:35 | PD.SAPROG ---
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 (7) Encephalopathy: Status: Chronic (8) Quadriparesis: Status: Chronic SUBJECTIVE Fever:: none Shortness of Breath:: none Pain:: none OBJECTIVE Most recent vital signs: Last Vital Signs Temp 97.0 F 12/29/24 05:53 Pulse 68 12/29/24 08:32 Resp 20 12/29/24 05:53 BP 91/55 L 12/29/24 08:32 Pulse Ox 97 12/29/24 05:53 O2 Del Method Blow-by 12/29/24 05:53 O2 Flow Rate 6 12/28/24 19:05 FiO2 28 12/28/24 19:05 Neurological:: PVS (spontaneous eye opening without any cognitive response to any stimuli) Speech:: none Answers questions:: no Respiratory:: lungs clear and shallow breathing Cardiovascular: RRR Abdomen: soft and nontender Extremities:: deformities (Quadriparesis, spastic contractures) Tracheostomy:: to blow by Feeding per:: G tube ASSESSMENT & PLAN Assessment: 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 VSS . No pain issues. Tolerating feeding. VSS. No evident pain issues. Elevated AST/ALT Pt was transferred to ER/Hospitalized on 12/20/24 and treated for Influenza and bacterial pn and now returned to S/Ac on 12/26/24 in a stable condition with all medications continued as before. VSS. Tolerating feeding; No pain issues Plan: All current treatment reviewed and continued
[2024-12-29] MEDS: METOPROLOL 25 MG TABLET 100 MG GT (20:53)
[2024-12-29] MEDS: ATORVASTATIN 40 MG TABLET GT (20:53)
[2024-12-30] VITALS (9 sets, daily range): BP systolic 93–127; BP diastolic 54–78; PULSE 70–97; RESP 18–20; TEMP 36–36.6; O2SAT 95–99
[2024-12-30] MEDS: BACLOFEN 20 MG TABLET GT ×4 (00:05→17:00)
[2024-12-30] MEDS: GABAPENTIN 300 MG CAPSULE GT ×3 (05:30→21:14)
[2024-12-30] MEDS: LANSOPRAZOLE 30 MG CAPSULE.DR GT (09:34)
[2024-12-30] MEDS: LACTULOSE 10 GM 10 EA FEED TUBE (09:34)
[2024-12-30] MEDS: ASCORBIC ACID 500 MG TABLET GT ×2 (09:34→20:28)
[2024-12-30] MEDS: METOPROLOL 25 MG TABLET 100 MG GT ×2 (09:36→20:30)
[2024-12-30] MEDS: MULTIVITAMIN 1 TAB TABLET GT (09:37)
[2024-12-30] MEDS: ATORVASTATIN 40 MG TABLET GT (20:30)
[2024-12-31] VITALS (8 sets, daily range): BP systolic 90–123; BP diastolic 57–77; PULSE 78–104; RESP 17–22; TEMP 36–36.2; O2SAT 98–100
[2024-12-31] MEDS: BACLOFEN 20 MG TABLET GT ×4 (00:25→17:17)
[2024-12-31] MEDS: GABAPENTIN 300 MG CAPSULE GT ×3 (05:33→21:36)
[2024-12-31] MEDS: ASCORBIC ACID 500 MG TABLET GT ×2 (09:01→21:36)
[2024-12-31] MEDS: LANSOPRAZOLE 30 MG CAPSULE.DR GT (09:04)
[2024-12-31] MEDS: LACTULOSE 10 GM 10 EA FEED TUBE (09:04)
[2024-12-31] MEDS: MULTIVITAMIN 1 TAB TABLET GT (09:04)
[2024-12-31] MEDS: ACETAMINOPHEN 325 MG TABLET 650 MG GT ×2 (11:45→21:37)
[2024-12-31] MEDS: METOPROLOL 25 MG TABLET 100 MG GT (21:37)
[2024-12-31] MEDS: ATORVASTATIN 40 MG TABLET GT (21:39)
[2025-01-01] VITALS (8 sets, daily range): BP systolic 93–121; BP diastolic 66–86; PULSE 53–97; RESP 14–24; TEMP 35.8–36; O2SAT 97–99
[2025-01-01] MEDS: BACLOFEN 20 MG TABLET GT ×5 (00:15→23:13)
[2025-01-01] MEDS: IBUPROFEN 100 MG/5 ML ORAL.SUSP 400 MG GT ×2 (01:55→12:23)
[2025-01-01] MEDS: GABAPENTIN 300 MG CAPSULE GT ×3 (05:36→20:59)
[2025-01-01] MEDS: ASCORBIC ACID 500 MG TABLET GT ×2 (08:51→20:58)
[2025-01-01] MEDS: LACTULOSE 10 GM 10 EA FEED TUBE (08:52)
[2025-01-01] MEDS: LANSOPRAZOLE 30 MG CAPSULE.DR GT (08:53)
[2025-01-01] MEDS: MULTIVITAMIN 1 TAB TABLET GT (08:54)
[2025-01-01] MEDS: ACETAMINOPHEN 325 MG TABLET 650 MG GT ×2 (08:56→21:01)
[2025-01-01] MEDS: METOPROLOL 25 MG TABLET 100 MG GT (21:00)
[2025-01-01] MEDS: ATORVASTATIN 40 MG TABLET GT (21:01)
[2025-01-02] VITALS (7 sets, daily range): BP systolic 92–117; BP diastolic 64–74; PULSE 65–76; RESP 16–24; TEMP 36.1–36.2; O2SAT 98–99
[2025-01-02] MEDS: GABAPENTIN 300 MG CAPSULE GT ×3 (05:22→21:25)
[2025-01-02] MEDS: BACLOFEN 20 MG TABLET GT ×3 (05:22→17:02)
[2025-01-02] MEDS: ASCORBIC ACID 500 MG TABLET GT ×2 (08:59→20:52)
[2025-01-02] MEDS: LACTULOSE 10 GM 10 EA FEED TUBE (08:59)
[2025-01-02] MEDS: LANSOPRAZOLE 30 MG CAPSULE.DR GT (09:01)
[2025-01-02] MEDS: METOPROLOL 25 MG TABLET 100 MG GT ×2 (09:02→20:55)
[2025-01-02] MEDS: MULTIVITAMIN 1 TAB TABLET GT (09:04)
[2025-01-02] MEDS: ATORVASTATIN 40 MG TABLET GT (20:55)
--- NOTE | 2025-01-02 21:51 | PD.SAPROG ---
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 (7) Encephalopathy: Status: Chronic (8) Quadriparesis: Status: Chronic SUBJECTIVE Fever:: none Shortness of Breath:: none Pain:: none OBJECTIVE Most recent vital signs: Last Vital Signs Temp 97.2 F 01/02/25 17:29 Pulse 72 01/02/25 20:55 Resp 18 01/02/25 17:29 BP 114/70 01/02/25 20:55 Pulse Ox 98 01/02/25 17:29 O2 Del Method Blow-by 01/02/25 17:29 O2 Flow Rate 6 01/02/25 14:14 FiO2 28 01/02/25 14:14 Neurological:: PVS (spontaneous eye opening without any cognitive response to any stimuli) Speech:: none Answers questions:: no Respiratory:: lungs clear and shallow breathing Cardiovascular: RRR Abdomen: soft and nontender Extremities:: deformities (Quadriparesis, spastic contractures) Tracheostomy:: to blow by Feeding per:: G tube ASSESSMENT & PLAN Assessment: 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 VSS . No pain issues. Tolerating feeding. VSS. No evident pain issues. Elevated AST/ALT Pt was transferred to ER/Hospitalized on 12/20/24 and treated for Influenza and bacterial pn and now returned to S/Ac on 12/26/24 in a stable condition with all medications continued as before. VSS. Tolerating feeding; No pain issues Plan: All current treatment reviewed and continued
[2025-01-03] VITALS (9 sets, daily range): BP systolic 80–113; BP diastolic 52–72; PULSE 57–81; RESP 18–19; TEMP 36.1–36.2; O2SAT 95–99; BMI 16.7
[2025-01-03] MEDS: BACLOFEN 20 MG TABLET GT ×5 (00:05→23:41)
[2025-01-03] MEDS: GABAPENTIN 300 MG CAPSULE GT ×3 (05:21→21:03)
[2025-01-03] MEDS: ASCORBIC ACID 500 MG TABLET GT ×2 (08:40→21:02)
[2025-01-03] MEDS: LACTULOSE 10 GM 10 EA FEED TUBE (08:43)
[2025-01-03] MEDS: LANSOPRAZOLE 30 MG CAPSULE.DR GT (08:43)
[2025-01-03] MEDS: MULTIVITAMIN 1 TAB TABLET GT (08:44)
[2025-01-03] MEDS: METOPROLOL 25 MG TABLET 100 MG GT ×2 (08:44→21:03)
[2025-01-03] MEDS: ATORVASTATIN 40 MG TABLET GT (21:05)
[2025-01-03] MEDS: ACETAMINOPHEN 325 MG TABLET 650 MG GT (21:08)
[2025-01-04] VITALS (8 sets, daily range): BP systolic 92–114; BP diastolic 56–73; PULSE 72–114; RESP 18–24; TEMP 36–36.1; O2SAT 98–99
[2025-01-04] MEDS: BACLOFEN 20 MG TABLET GT ×3 (05:17→17:17)
[2025-01-04] MEDS: GABAPENTIN 300 MG CAPSULE GT ×3 (05:24→21:31)
[2025-01-04] MEDS: LACTULOSE 10 GM 10 EA FEED TUBE (08:43)
[2025-01-04] MEDS: ASCORBIC ACID 500 MG TABLET GT ×2 (08:43→21:31)
[2025-01-04] MEDS: LANSOPRAZOLE 30 MG CAPSULE.DR GT (08:44)
[2025-01-04] MEDS: METOPROLOL 25 MG TABLET 100 MG GT ×2 (08:46→21:32)
[2025-01-04] MEDS: MULTIVITAMIN 1 TAB TABLET GT (08:46)
--- NOTE | 2025-01-04 11:04 | PC.SS ---
Resident remains on blow by with trach in place and GT for medication and nutrition. Resident is unable to make decisions for self as he has absence of speech and cognitive impairment, his mother Sara is his decision maker. Resident will remain in current care and will continue to have all subacute care needs met by staff. This SSD will make daily contact with resident and will offer support as needed.
[2025-01-04] MEDS: ATORVASTATIN 40 MG TABLET GT (21:32)
[2025-01-04] MEDS: ACETAMINOPHEN 325 MG TABLET 650 MG GT (21:33)
[2025-01-05] VITALS (8 sets, daily range): BP systolic 93–105; BP diastolic 57–69; PULSE 81–102; RESP 16–18; TEMP 36.1; O2SAT 97–99
[2025-01-05] MEDS: BACLOFEN 20 MG TABLET GT ×4 (00:06→17:05)
[2025-01-05] MEDS: GABAPENTIN 300 MG CAPSULE GT ×3 (05:41→21:00)
[2025-01-05] MEDS: MULTIVITAMIN 1 TAB TABLET GT (08:12)
[2025-01-05] MEDS: LACTULOSE 10 GM 10 EA FEED TUBE (08:12)
[2025-01-05] MEDS: METOPROLOL 25 MG TABLET 100 MG GT (08:12)
[2025-01-05] MEDS: LANSOPRAZOLE 30 MG CAPSULE.DR GT (08:12)
[2025-01-05] MEDS: ASCORBIC ACID 500 MG TABLET GT ×2 (08:12→20:21)
[2025-01-05] MEDS: MORPHINE 20 MG/ML GT (13:10)
[2025-01-05] MEDS: ATORVASTATIN 40 MG TABLET GT (20:21)
[2025-01-05] MEDS: ACETAMINOPHEN 325 MG TABLET 650 MG GT (20:23)
[2025-01-06] VITALS (8 sets, daily range): BP systolic 97–114; BP diastolic 63–84; PULSE 59–92; RESP 17–20; TEMP 35.8–36.1; O2SAT 97–99
[2025-01-06] MEDS: MAGNESIUM HYDROXIDE 30 ML ORAL SUSP ML GT (00:44)
[2025-01-06] MEDS: GABAPENTIN 300 MG CAPSULE GT ×3 (05:01→21:07)
[2025-01-06] MEDS: BACLOFEN 20 MG TABLET GT ×5 (05:01→23:19)
[2025-01-06] MEDS: MULTIVITAMIN 1 TAB TABLET GT (09:01)
[2025-01-06] MEDS: ASCORBIC ACID 500 MG TABLET GT ×2 (09:02→21:05)
[2025-01-06] MEDS: LACTULOSE 10 GM 10 EA FEED TUBE (09:02)
[2025-01-06] MEDS: LANSOPRAZOLE 30 MG CAPSULE.DR GT (09:02)
[2025-01-06] MEDS: ATORVASTATIN 40 MG TABLET GT (21:06)
[2025-01-06] MEDS: METOPROLOL 25 MG TABLET 100 MG GT (21:07)
[2025-01-06] MEDS: ACETAMINOPHEN 325 MG TABLET 650 MG GT (21:08)
[2025-01-06] MEDS: SODIUM PHOSPHATE,MONO-DIBASIC 133 ML ENEMA PR (21:28)
--- NOTE | 2025-01-06 22:22 | PD.SAPROG ---
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 (7) Encephalopathy: Status: Chronic (8) Quadriparesis: Status: Chronic SUBJECTIVE Fever:: none Shortness of Breath:: none Pain:: none OBJECTIVE Most recent vital signs: Last Vital Signs Temp 96.5 F L 01/06/25 17:22 Pulse 85 01/06/25 21:07 Resp 17 01/06/25 17:22 BP 100/64 01/06/25 21:07 Pulse Ox 97 01/06/25 17:22 O2 Del Method Blow-by 01/06/25 17:22 O2 Flow Rate 6 01/06/25 08:05 FiO2 28 01/06/25 08:05 Neurological:: PVS (spontaneous eye opening without any cognitive response to any stimuli) Speech:: none Answers questions:: no Respiratory:: lungs clear and shallow breathing Cardiovascular: RRR Abdomen: soft and nontender Extremities:: deformities (Quadriparesis, spastic contractures) Tracheostomy:: to blow by Feeding per:: G tube ASSESSMENT & PLAN Assessment: 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 VSS . No pain issues. Tolerating feeding. VSS. No evident pain issues. Elevated AST/ALT Pt was transferred to ER/Hospitalized on 12/20/24 and treated for Influenza and bacterial pn and now returned to S/Ac on 12/26/24 in a stable condition with all medications continued as before. VSS. Tolerating feeding; Pain management reviewed. Plan: All current treatment reviewed and continued
[2025-01-07] VITALS (9 sets, daily range): BP systolic 82–121; BP diastolic 52–85; PULSE 32–94; RESP 16–25; TEMP 36–36.4; O2SAT 98–99
[2025-01-07] MEDS: BACLOFEN 20 MG TABLET GT ×4 (06:06→23:40)
[2025-01-07] MEDS: GABAPENTIN 300 MG CAPSULE GT ×3 (06:08→21:20)
[2025-01-07] MEDS: ASCORBIC ACID 500 MG TABLET GT ×2 (08:50→21:18)
[2025-01-07] MEDS: LACTULOSE 10 GM 10 EA FEED TUBE (08:50)
[2025-01-07] MEDS: LANSOPRAZOLE 30 MG CAPSULE.DR GT (08:51)
[2025-01-07] MEDS: MORPHINE 20 MG/ML GT ×2 (14:31→23:40)
[2025-01-07] MEDS: ATORVASTATIN 40 MG TABLET GT (21:18)
[2025-01-07] MEDS: METOPROLOL 25 MG TABLET 100 MG GT (21:20)
[2025-01-08] VITALS (7 sets, daily range): BP systolic 91–104; BP diastolic 54–80; PULSE 69–94; RESP 16–20; TEMP 35.9–36.3; O2SAT 98–99
[2025-01-08] MEDS: BACLOFEN 20 MG TABLET GT ×3 (05:19→17:25)
[2025-01-08] MEDS: GABAPENTIN 300 MG CAPSULE GT ×3 (05:20→21:00)
[2025-01-08] MEDS: ASCORBIC ACID 500 MG TABLET GT ×2 (08:31→20:39)
[2025-01-08] MEDS: MULTIVITAMIN 1 TAB TABLET GT (08:32)
[2025-01-08] MEDS: LANSOPRAZOLE 30 MG CAPSULE.DR GT (08:32)
[2025-01-08] MEDS: LACTULOSE 10 GM 10 EA FEED TUBE (08:32)
[2025-01-08] MEDS: ATORVASTATIN 40 MG TABLET GT (20:39)
[2025-01-08] MEDS: MORPHINE 20 MG/ML GT (22:30)
[2025-01-09] VITALS (8 sets, daily range): BP systolic 94–118; BP diastolic 65–79; PULSE 64–107; RESP 17–24; TEMP 35.9–36.2; O2SAT 97–99
[2025-01-09] MEDS: BACLOFEN 20 MG TABLET GT ×4 (00:20→17:27)
[2025-01-09] MEDS: GABAPENTIN 300 MG CAPSULE GT ×3 (05:39→21:03)
[2025-01-09] MEDS: MORPHINE 20 MG/ML GT (09:00)
[2025-01-09] MEDS: ASCORBIC ACID 500 MG TABLET GT ×2 (09:01→20:58)
[2025-01-09] MEDS: LACTULOSE 10 GM 10 EA FEED TUBE (09:01)
[2025-01-09] MEDS: LANSOPRAZOLE 30 MG CAPSULE.DR GT (09:02)
[2025-01-09] MEDS: METOPROLOL 25 MG TABLET 100 MG GT ×2 (09:03→21:02)
[2025-01-09] MEDS: MULTIVITAMIN 1 TAB TABLET GT (09:03)
[2025-01-09] MEDS: BISACODYL 10 MG SUPP.RECT PR (09:04)
[2025-01-09] MEDS: ATORVASTATIN 40 MG TABLET GT (20:59)
[2025-01-09] MEDS: ACETAMINOPHEN 325 MG TABLET 650 MG GT (21:03)
[2025-01-10] VITALS (9 sets, daily range): BP systolic 92–109; BP diastolic 56–72; PULSE 84–102; RESP 17–20; TEMP 35.9–36.1; O2SAT 97–99
[2025-01-10] MEDS: BACLOFEN 20 MG TABLET GT ×4 (00:17→17:20)
[2025-01-10] MEDS: GABAPENTIN 300 MG CAPSULE GT ×3 (05:13→21:26)
[2025-01-10] MEDS: LANSOPRAZOLE 30 MG CAPSULE.DR GT (08:34)
[2025-01-10] MEDS: MULTIVITAMIN 1 TAB TABLET GT (08:34)
[2025-01-10] MEDS: ASCORBIC ACID 500 MG TABLET GT ×2 (08:34→21:23)
[2025-01-10] MEDS: LACTULOSE 10 GM 10 EA FEED TUBE (08:34)
[2025-01-10] MEDS: MORPHINE 20 MG/ML GT (13:30)
--- NOTE | 2025-01-10 15:28 | PD.SAPROG ---
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 (7) Encephalopathy: Status: Chronic (8) Quadriparesis: Status: Chronic SUBJECTIVE Fever:: none Shortness of Breath:: none Pain:: none OBJECTIVE Most recent vital signs: Last Vital Signs Temp 96.9 F 01/10/25 12:00 Pulse 92 01/10/25 12:00 Resp 17 01/10/25 12:00 BP 94/66 01/10/25 12:00 Pulse Ox 98 01/10/25 07:08 O2 Del Method Blow-by 01/10/25 06:00 O2 Flow Rate 6 01/10/25 07:08 FiO2 28 01/10/25 07:08 Neurological:: PVS (spontaneous eye opening without any cognitive response to any stimuli) Speech:: none Answers questions:: no Respiratory:: lungs clear and shallow breathing Cardiovascular: RRR Abdomen: soft and nontender Extremities:: deformities (Quadriparesis, spastic contractures) Tracheostomy:: to blow by Feeding per:: G tube ASSESSMENT & PLAN Assessment: 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 VSS . No pain issues. Tolerating feeding. VSS. No evident pain issues. Elevated AST/ALT Pt was transferred to ER/Hospitalized on 12/20/24 and treated for Influenza and bacterial pn and now returned to S/Ac on 12/26/24 in a stable condition with all medications continued as before. VSS. Tolerating feeding; Pain management reviewed. VSS Plan: All current treatment reviewed and continued
[2025-01-10] MEDS: DEX/HYPRO/GLY ARTIFICAL TEARS 225 DROP/15 ML BTL BOTH EYES (21:24)
[2025-01-10] MEDS: ATORVASTATIN 40 MG TABLET GT (21:24)
[2025-01-10] MEDS: METOPROLOL 25 MG TABLET 100 MG GT (21:26)
[2025-01-11] VITALS (9 sets, daily range): BP systolic 105–119; BP diastolic 67–80; PULSE 78–97; RESP 18–20; TEMP 36–36.1; O2SAT 97–98
[2025-01-11] MEDS: BACLOFEN 20 MG TABLET GT ×4 (00:13→17:11)
[2025-01-11] MEDS: GABAPENTIN 300 MG CAPSULE GT ×3 (05:34→21:44)
[2025-01-11] MEDS: ASCORBIC ACID 500 MG TABLET GT ×2 (08:21→20:47)
[2025-01-11] MEDS: DEX/HYPRO/GLY ARTIFICAL TEARS 225 DROP/15 ML BTL BOTH EYES ×2 (08:24→20:47)
[2025-01-11] MEDS: LACTULOSE 10 GM 10 EA FEED TUBE (08:24)
[2025-01-11] MEDS: MULTIVITAMIN 1 TAB TABLET GT (08:24)
[2025-01-11] MEDS: LANSOPRAZOLE 30 MG CAPSULE.DR GT (08:24)
[2025-01-11] MEDS: METOPROLOL 25 MG TABLET 100 MG GT ×2 (08:24→20:49)
[2025-01-11] MEDS: MORPHINE 20 MG/ML GT (13:40)
--- NOTE | 2025-01-11 15:10 | PC.SS ---
Resident remains on blow by with trach in place and GT for medication and nutrition. He does not have POA in place, family aware this service is offered in facility but resident is unable to participate in this service. He is represented by his mother Sara as he is unable to make needs known. Resident will remain in current care and will continue to have all subacute care needs met by staff. This SSD will continue to make daily contact with resident and will offer support as needed.
--- NOTE | 2025-01-11 15:23 | PC.SS ---
Resident mother, father and sister came in for a visit, they brought resident clothing. All inventory was labeled, added to inventory and put in place. Facility will do laundry.
[2025-01-11] MEDS: ATORVASTATIN 40 MG TABLET GT (20:47)
[2025-01-11] MEDS: ACETAMINOPHEN 325 MG TABLET 650 MG GT (20:51)
[2025-01-12] VITALS (7 sets, daily range): BP systolic 94–120; BP diastolic 63–80; PULSE 75–89; RESP 16–20; TEMP 35.9–36; O2SAT 97–99
[2025-01-12] MEDS: BACLOFEN 20 MG TABLET GT ×4 (00:09→17:11)
[2025-01-12] MEDS: GABAPENTIN 300 MG CAPSULE GT ×3 (05:23→21:42)
[2025-01-12] MEDS: ASCORBIC ACID 500 MG TABLET GT ×2 (08:44→20:36)
[2025-01-12] MEDS: DEX/HYPRO/GLY ARTIFICAL TEARS 225 DROP/15 ML BTL BOTH EYES ×2 (08:44→20:39)
[2025-01-12] MEDS: LACTULOSE 10 GM 10 EA FEED TUBE (08:44)
[2025-01-12] MEDS: LANSOPRAZOLE 30 MG CAPSULE.DR GT (08:46)
[2025-01-12] MEDS: METOPROLOL 25 MG TABLET 100 MG GT (08:48)
[2025-01-12] MEDS: MULTIVITAMIN 1 TAB TABLET GT (08:49)
[2025-01-12] MEDS: MORPHINE 20 MG/ML GT (10:00)
[2025-01-12] MEDS: ATORVASTATIN 40 MG TABLET GT (20:38)
[2025-01-12] MEDS: ACETAMINOPHEN 325 MG TABLET 650 MG GT (20:42)
[2025-01-13] VITALS (8 sets, daily range): BP systolic 97–120; BP diastolic 61–76; PULSE 86–116; RESP 16–20; TEMP 36.1–36.6; O2SAT 94–98
[2025-01-13] MEDS: BACLOFEN 20 MG TABLET GT ×4 (00:17→17:04)
[2025-01-13] MEDS: GABAPENTIN 300 MG CAPSULE GT ×3 (05:16→21:13)
[2025-01-13] MEDS: MORPHINE 20 MG/ML GT (08:07)
[2025-01-13] MEDS: ASCORBIC ACID 500 MG TABLET GT ×2 (08:09→20:45)
[2025-01-13] MEDS: DEX/HYPRO/GLY ARTIFICAL TEARS 225 DROP/15 ML BTL BOTH EYES ×2 (08:09→20:45)
[2025-01-13] MEDS: LACTULOSE 10 GM 10 EA FEED TUBE (08:10)
[2025-01-13] MEDS: LANSOPRAZOLE 30 MG CAPSULE.DR GT (08:11)
[2025-01-13] MEDS: METOPROLOL 25 MG TABLET 100 MG GT ×2 (08:12→20:47)
[2025-01-13] MEDS: MULTIVITAMIN 1 TAB TABLET GT (08:13)
[2025-01-13] MEDS: ACETAMINOPHEN 325 MG TABLET 650 MG GT (16:51)
[2025-01-13] MEDS: ATORVASTATIN 40 MG TABLET GT (20:45)
[2025-01-13] MEDS: MAGNESIUM HYDROXIDE 30 ML ORAL SUSP ML GT (21:30)
[2025-01-14] VITALS (8 sets, daily range): BP systolic 91–110; BP diastolic 56–72; PULSE 93–120; RESP 18–20; TEMP 36–36.4; O2SAT 94–99
[2025-01-14] MEDS: BACLOFEN 20 MG TABLET GT ×4 (00:20→17:10)
[2025-01-14] MEDS: GABAPENTIN 300 MG CAPSULE GT ×3 (05:27→20:59)
[2025-01-14] MEDS: MULTIVITAMIN 1 TAB TABLET GT (08:55)
[2025-01-14] MEDS: LACTULOSE 10 GM 10 EA FEED TUBE (08:56)
[2025-01-14] MEDS: DEX/HYPRO/GLY ARTIFICAL TEARS 225 DROP/15 ML BTL BOTH EYES ×2 (08:56→20:58)
[2025-01-14] MEDS: ASCORBIC ACID 500 MG TABLET GT ×2 (08:56→20:56)
[2025-01-14] MEDS: LANSOPRAZOLE 30 MG CAPSULE.DR GT (08:56)
[2025-01-14] MEDS: BISACODYL 10 MG SUPP.RECT PR (11:00)
[2025-01-14] MEDS: MORPHINE 20 MG/ML GT (14:15)
[2025-01-14] MEDS: ATORVASTATIN 40 MG TABLET GT (20:58)
[2025-01-14] MEDS: METOPROLOL 25 MG TABLET 100 MG GT (20:59)
[2025-01-14] MEDS: ACETAMINOPHEN 325 MG TABLET 650 MG GT (20:59)
--- NOTE | 2025-01-14 22:52 | PD.SAPROG ---
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 (7) Encephalopathy: Status: Chronic (8) Quadriparesis: Status: Chronic SUBJECTIVE Fever:: none Shortness of Breath:: none Pain:: none OBJECTIVE Most recent vital signs: Last Vital Signs Temp 97.6 F 01/14/25 18:00 Pulse 120 H 01/14/25 20:59 Resp 19 01/14/25 18:00 BP 110/63 01/14/25 20:59 Pulse Ox 98 01/14/25 18:00 O2 Del Method Blow-by 01/14/25 06:00 O2 Flow Rate 6 01/14/25 06:33 FiO2 28 01/14/25 06:33 Neurological:: PVS (spontaneous eye opening without any cognitive response to any stimuli) Speech:: none Answers questions:: no Respiratory:: lungs clear and shallow breathing Cardiovascular: RRR Abdomen: soft and nontender Extremities:: deformities (Quadriparesis, spastic contractures) Tracheostomy:: to blow by Feeding per:: G tube ASSESSMENT & PLAN Assessment: 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 VSS . No pain issues. Tolerating feeding. VSS. No evident pain issues. Elevated AST/ALT Pt was transferred to ER/Hospitalized on 12/20/24 and treated for Influenza and bacterial pn and now returned to S/Ac on 12/26/24 in a stable condition with all medications continued as before. VSS. Tolerating feeding; Pain management reviewed. VSS Plan: All current treatment reviewed and continued
[2025-01-15] VITALS: BP 102/67; PULSE 97; RESP 24; TEMP 36
[2025-01-15] MEDS: BACLOFEN 20 MG TABLET GT ×4 (00:42→17:02)
[2025-01-15] MEDS: GABAPENTIN 300 MG CAPSULE GT ×3 (05:26→21:26)
[2025-01-15 07:24] VITALS: PULSE 97; RESP 20; O2SAT 98
[2025-01-15] MEDS: ASCORBIC ACID 500 MG TABLET GT ×2 (08:37→21:23)
[2025-01-15 08:38] VITALS: BP 115/83; PULSE 109
[2025-01-15] MEDS: DEX/HYPRO/GLY ARTIFICAL TEARS 225 DROP/15 ML BTL BOTH EYES ×2 (08:38→21:25)
[2025-01-15] MEDS: MULTIVITAMIN 1 TAB TABLET GT (08:38)
[2025-01-15] MEDS: LACTULOSE 10 GM 10 EA FEED TUBE (08:38)
[2025-01-15] MEDS: LANSOPRAZOLE 30 MG CAPSULE.DR GT (08:38)
[2025-01-15] MEDS: METOPROLOL 25 MG TABLET 100 MG GT ×2 (08:38→21:26)
[2025-01-15 12:00] VITALS: BP 98/63; PULSE 87; RESP 17; TEMP 36.1
[2025-01-15 21:10] VITALS: PULSE 105; RESP 20; O2SAT 96
[2025-01-15] MEDS: ATORVASTATIN 40 MG TABLET GT (21:25)
[2025-01-15 21:26] VITALS: BP 97/66; PULSE 98
[2025-01-16] VITALS (7 sets, daily range): BP systolic 85–117; BP diastolic 54–70; PULSE 57–94; RESP 16–20; TEMP 35.8–36.1; O2SAT 92–99
[2025-01-16] MEDS: BACLOFEN 20 MG TABLET GT ×4 (00:36→17:52)
[2025-01-16] MEDS: GABAPENTIN 300 MG CAPSULE GT ×3 (05:18→21:02)
[2025-01-16] MEDS: LANSOPRAZOLE 30 MG CAPSULE.DR GT (09:01)
[2025-01-16] MEDS: METOPROLOL 25 MG TABLET 100 MG GT ×2 (09:02→21:03)
[2025-01-16] MEDS: DEX/HYPRO/GLY ARTIFICAL TEARS 225 DROP/15 ML BTL BOTH EYES ×2 (09:04→21:03)
[2025-01-16] MEDS: LACTULOSE 10 GM 10 EA FEED TUBE (09:04)
[2025-01-16] MEDS: ASCORBIC ACID 500 MG TABLET GT ×2 (09:05→21:03)
[2025-01-16] MEDS: MULTIVITAMIN 1 TAB TABLET GT (09:07)
--- NOTE | 2025-01-16 13:15 | PD.SAPROG ---
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 (7) Encephalopathy: Status: Chronic (8) Quadriparesis: Status: Chronic SUBJECTIVE Fever:: none Shortness of Breath:: none Pain:: none OBJECTIVE Most recent vital signs: Last Vital Signs Temp 97.2 F 01/19/25 17:41 Pulse 91 01/19/25 17:41 Resp 16 01/19/25 17:41 BP 100/68 01/19/25 17:41 Pulse Ox 98 01/19/25 17:41 O2 Del Method Blow-by 01/18/25 17:25 O2 Flow Rate 6 01/19/25 16:50 FiO2 28 01/19/25 16:50 Neurological:: PVS (spontaneous eye opening without any cognitive response to any stimuli) Speech:: none Answers questions:: no Respiratory:: lungs clear and shallow breathing Cardiovascular: RRR Abdomen: soft and nontender Extremities:: deformities (Quadriparesis, spastic contractures) Tracheostomy:: to blow by Feeding per:: G tube ASSESSMENT & PLAN Assessment: 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 VSS . No pain issues. Tolerating feeding. VSS. No evident pain issues. Elevated AST/ALT Pt was transferred to ER/Hospitalized on 12/20/24 and treated for Influenza and bacterial pn and now returned to S/Ac on 12/26/24 in a stable condition with all medications continued as before. VSS. Tolerating feeding; Pain management reviewed. VSS Plan: All current treatment reviewed and continued
[2025-01-16] MEDS: ATORVASTATIN 40 MG TABLET GT (21:03)
[2025-01-17] VITALS (8 sets, daily range): BP systolic 95–132; BP diastolic 58–80; PULSE 70–123; RESP 16–19; TEMP 35.9–36.3; O2SAT 97–99
[2025-01-17] MEDS: BACLOFEN 20 MG TABLET GT ×4 (00:33→17:25)
[2025-01-17] MEDS: GABAPENTIN 300 MG CAPSULE GT ×3 (05:30→21:44)
[2025-01-17] MEDS: ASCORBIC ACID 500 MG TABLET GT ×2 (08:19→20:48)
[2025-01-17] MEDS: LACTULOSE 10 GM 10 EA FEED TUBE (08:19)
[2025-01-17] MEDS: DEX/HYPRO/GLY ARTIFICAL TEARS 225 DROP/15 ML BTL BOTH EYES (08:19)
[2025-01-17] MEDS: LANSOPRAZOLE 30 MG CAPSULE.DR GT (08:20)
[2025-01-17] MEDS: METOPROLOL 25 MG TABLET 100 MG GT ×2 (08:28→20:50)
[2025-01-17] MEDS: MULTIVITAMIN 1 TAB TABLET GT (08:29)
[2025-01-17] MEDS: MORPHINE 20 MG/ML GT (10:00)
[2025-01-17] MEDS: MAGNESIUM HYDROXIDE 30 ML ORAL SUSP ML GT (15:22)
[2025-01-17] MEDS: ATORVASTATIN 40 MG TABLET GT (20:50)
[2025-01-17] MEDS: ACETAMINOPHEN 325 MG TABLET 650 MG GT (20:51)
[2025-01-18] VITALS (8 sets, daily range): BP systolic 86–114; BP diastolic 52–80; PULSE 72–102; RESP 16–19; TEMP 36.1–36.3; O2SAT 98
[2025-01-18] MEDS: BACLOFEN 20 MG TABLET GT ×4 (00:30→17:19)
[2025-01-18] MEDS: GABAPENTIN 300 MG CAPSULE GT ×3 (05:41→21:08)
[2025-01-18] MEDS: LANSOPRAZOLE 30 MG CAPSULE.DR GT (08:59)
[2025-01-18] MEDS: LACTULOSE 10 GM 10 EA FEED TUBE (08:59)
[2025-01-18] MEDS: METOPROLOL 25 MG TABLET 100 MG GT ×2 (08:59→20:34)
[2025-01-18] MEDS: ASCORBIC ACID 500 MG TABLET GT ×2 (08:59→20:33)
[2025-01-18] MEDS: MULTIVITAMIN 1 TAB TABLET GT (09:00)
[2025-01-18] MEDS: MORPHINE 20 MG/ML GT (14:25)
[2025-01-18] MEDS: ATORVASTATIN 40 MG TABLET GT (20:33)
[2025-01-19] VITALS (9 sets, daily range): BP systolic 90–114; BP diastolic 58–73; PULSE 75–95; RESP 16–20; TEMP 36.1–36.3; O2SAT 97–99
[2025-01-19] MEDS: BACLOFEN 20 MG TABLET GT ×4 (00:15→17:15)
[2025-01-19] MEDS: GABAPENTIN 300 MG CAPSULE GT ×3 (05:33→21:19)
[2025-01-19] MEDS: ASCORBIC ACID 500 MG TABLET GT ×2 (08:19→20:50)
[2025-01-19] MEDS: MULTIVITAMIN 1 TAB TABLET GT (08:19)
[2025-01-19] MEDS: LACTULOSE 10 GM 10 EA FEED TUBE (08:19)
[2025-01-19] MEDS: LANSOPRAZOLE 30 MG CAPSULE.DR GT (08:19)
[2025-01-19] MEDS: MORPHINE 20 MG/ML GT (14:00)
[2025-01-19] MEDS: ATORVASTATIN 40 MG TABLET GT (20:50)
[2025-01-19] MEDS: METOPROLOL 25 MG TABLET 100 MG GT (20:51)
[2025-01-20] VITALS (8 sets, daily range): BP systolic 93–119; BP diastolic 61–80; PULSE 60–97; RESP 16–19; TEMP 36–36.2; O2SAT 98–100
[2025-01-20] MEDS: BACLOFEN 20 MG TABLET GT ×4 (00:40→17:05)
[2025-01-20] MEDS: GABAPENTIN 300 MG CAPSULE GT ×3 (05:24→21:08)
[2025-01-20] MEDS: LANSOPRAZOLE 30 MG CAPSULE.DR GT (09:00)
[2025-01-20] MEDS: LACTULOSE 10 GM 10 EA FEED TUBE (09:00)
[2025-01-20] MEDS: ASCORBIC ACID 500 MG TABLET GT ×2 (09:00→20:22)
[2025-01-20] MEDS: MULTIVITAMIN 1 TAB TABLET GT (09:00)
[2025-01-20] MEDS: MORPHINE 20 MG/ML GT (11:35)
[2025-01-20] MEDS: ATORVASTATIN 40 MG TABLET GT (20:22)
[2025-01-20] MEDS: METOPROLOL 25 MG TABLET 100 MG GT (20:23)
[2025-01-21] VITALS (8 sets, daily range): BP systolic 94–124; BP diastolic 57–84; PULSE 68–94; RESP 18–20; TEMP 35.9–36.1; O2SAT 96–100
[2025-01-21] MEDS: BACLOFEN 20 MG TABLET GT ×5 (00:10→23:57)
[2025-01-21] MEDS: GABAPENTIN 300 MG CAPSULE GT ×3 (05:31→21:07)
[2025-01-21] MEDS: ASCORBIC ACID 500 MG TABLET GT ×2 (08:33→20:44)
[2025-01-21] MEDS: LACTULOSE 10 GM 10 EA FEED TUBE (08:34)
[2025-01-21] MEDS: LANSOPRAZOLE 30 MG CAPSULE.DR GT (08:35)
[2025-01-21] MEDS: MULTIVITAMIN 1 TAB TABLET GT (08:37)
[2025-01-21] MEDS: METOPROLOL 25 MG TABLET 100 MG GT ×2 (08:37→20:43)
[2025-01-21] MEDS: MORPHINE 20 MG/ML GT (09:57)
--- NOTE | 2025-01-21 11:52 | PC.SS ---
Resident was seen by clinical biostatistics director/Dr. Parikh for routine toenail care, he tolerated treatment well with no new orders.
--- NOTE | 2025-01-21 12:23 | PC.SS ---
Resident remains on blow by with trach in place and GT for medication and nutrition. Resident is total care unable to make needs known, he is represented by his mother. He has absence of speech and cognitive impairment. Resident will remain in current care and will continue to have all subacute care needs met by staff. This SSD will continue to make daily contact with resident and will monitor for changes in mood and behavior.
--- NOTE | 2025-01-21 18:36 | PD.SAPROG ---
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 (7) Encephalopathy: Status: Chronic (8) Quadriparesis: Status: Chronic SUBJECTIVE Fever:: none Shortness of Breath:: none Pain:: none OBJECTIVE Most recent vital signs: Last Vital Signs Temp 97 F 01/21/25 17:30 Pulse 74 01/21/25 17:34 Resp 18 01/21/25 17:34 BP 95/64 01/21/25 17:30 Pulse Ox 99 01/21/25 17:34 O2 Del Method Blow-by 01/21/25 06:00 O2 Flow Rate 6 01/21/25 17:34 FiO2 28 01/21/25 17:34 Neurological:: PVS (spontaneous eye opening without any cognitive response to any stimuli) Speech:: none Answers questions:: no Respiratory:: lungs clear and shallow breathing Cardiovascular: RRR Abdomen: soft and nontender Extremities:: deformities (Quadriparesis, spastic contractures) Tracheostomy:: to blow by Feeding per:: G tube ASSESSMENT & PLAN Assessment: 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 VSS . No pain issues. Tolerating feeding. VSS. No evident pain issues. Elevated AST/ALT Pt was transferred to ER/Hospitalized on 12/20/24 and treated for Influenza and bacterial pn and now returned to S/Ac on 12/26/24 in a stable condition with all medications continued as before. VSS. Tolerating feeding; Pain management reviewed. VSS Plan: All current treatment reviewed and continued
[2025-01-21] MEDS: ATORVASTATIN 40 MG TABLET GT (20:44)
[2025-01-22] VITALS (7 sets, daily range): BP systolic 88–102; BP diastolic 54–72; PULSE 64–89; RESP 16–20; TEMP 35.9–36; O2SAT 94–100
[2025-01-22] MEDS: GABAPENTIN 300 MG CAPSULE GT ×3 (05:06→21:00)
[2025-01-22] MEDS: BACLOFEN 20 MG TABLET GT ×4 (05:06→23:05)
[2025-01-22] MEDS: LANSOPRAZOLE 30 MG CAPSULE.DR GT (08:50)
[2025-01-22] MEDS: LACTULOSE 10 GM 10 EA FEED TUBE (08:50)
[2025-01-22] MEDS: ASCORBIC ACID 500 MG TABLET GT ×2 (08:50→20:38)
[2025-01-22] MEDS: MULTIVITAMIN 1 TAB TABLET GT (08:51)
[2025-01-22] MEDS: MORPHINE 20 MG/ML GT (10:09)
--- NOTE | 2025-01-22 15:03 | XR_ITS ---
Examination: Knee, right , 3 views Technique: Knee AP, lateral, oblique 3 views Date and time of exam: January 22, 2025 1745 hours INDICATIONS: Injury to the knee today, knee pain. FINDINGS: Significant osteopenia. Moderate knee effusion. No acute fracture IMPRESSION: No acute fracture
--- NOTE | 2025-01-22 15:48 | PC.NURSE ---
Resident's right knee noted to be swollen, Dr Nichols made aware with order received to do x-ray
--- NOTE | 2025-01-22 19:18 | PC.NURSE ---
At 1755 radiologist here for x-ray of bilateral knees to check for osteomyelitis. No s/s of any discomfort.
[2025-01-22] MEDS: ATORVASTATIN 40 MG TABLET GT (20:38)
[2025-01-23] VITALS (9 sets, daily range): BP systolic 96–106; BP diastolic 58–73; PULSE 73–94; RESP 16–20; TEMP 35.9–36.2; O2SAT 97–100
[2025-01-23] MEDS: BACLOFEN 20 MG TABLET GT ×3 (05:03→17:21)
[2025-01-23] MEDS: GABAPENTIN 300 MG CAPSULE GT ×3 (05:03→21:21)
[2025-01-23] MEDS: ASCORBIC ACID 500 MG TABLET GT ×2 (09:39→20:40)
[2025-01-23] MEDS: LACTULOSE 10 GM 10 EA FEED TUBE (09:39)
[2025-01-23] MEDS: LANSOPRAZOLE 30 MG CAPSULE.DR GT (09:40)
[2025-01-23] MEDS: MULTIVITAMIN 1 TAB TABLET GT (09:42)
[2025-01-23] MEDS: ATORVASTATIN 40 MG TABLET GT (20:42)
[2025-01-23] MEDS: METOPROLOL 25 MG TABLET 100 MG GT (20:43)
[2025-01-23] MEDS: ACETAMINOPHEN 325 MG TABLET 650 MG GT (20:43)
[2025-01-24] VITALS (9 sets, daily range): BP systolic 92–103; BP diastolic 56–69; PULSE 72–79; RESP 17–20; TEMP 35.9–36.2; O2SAT 94–98
[2025-01-24] MEDS: BACLOFEN 20 MG TABLET GT ×3 (00:50→12:00)
[2025-01-24] MEDS: GABAPENTIN 300 MG CAPSULE GT ×3 (05:46→21:05)
[2025-01-24] MEDS: LACTULOSE 10 GM 10 EA FEED TUBE (09:02)
[2025-01-24] MEDS: ASCORBIC ACID 500 MG TABLET GT ×2 (09:02→20:58)
[2025-01-24] MEDS: LANSOPRAZOLE 30 MG CAPSULE.DR GT (09:02)
[2025-01-24] MEDS: METOPROLOL 25 MG TABLET 100 MG GT (09:03)
[2025-01-24] MEDS: MULTIVITAMIN 1 TAB TABLET GT (09:04)
[2025-01-24] MEDS: ATORVASTATIN 40 MG TABLET GT (20:58)
[2025-01-25] VITALS (9 sets, daily range): BP systolic 96–113; BP diastolic 52–76; PULSE 75–88; RESP 17–99; TEMP 36.1–36.3; O2SAT 94–98
[2025-01-25] MEDS: BACLOFEN 20 MG TABLET GT ×5 (00:12→23:43)
[2025-01-25] MEDS: GABAPENTIN 300 MG CAPSULE GT ×3 (05:38→21:04)
[2025-01-25] MEDS: ASCORBIC ACID 500 MG TABLET GT ×2 (09:05→20:50)
[2025-01-25] MEDS: LACTULOSE 10 GM 10 EA FEED TUBE (09:06)
[2025-01-25] MEDS: LANSOPRAZOLE 30 MG CAPSULE.DR GT (09:07)
[2025-01-25] MEDS: METOPROLOL 25 MG TABLET 100 MG GT ×2 (09:07→20:57)
[2025-01-25] MEDS: MULTIVITAMIN 1 TAB TABLET GT (09:08)
--- NOTE | 2025-01-25 18:06 | PD.SAPROG ---
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 (7) Encephalopathy: Status: Chronic (8) Quadriparesis: Status: Chronic SUBJECTIVE Fever:: none Shortness of Breath:: none Pain:: none OBJECTIVE Most recent vital signs: Last Vital Signs Temp 96.9 F 01/25/25 16:54 Pulse 75 01/25/25 16:54 Resp 17 01/25/25 16:54 BP 96/64 01/25/25 16:54 Pulse Ox 97 01/25/25 16:54 O2 Del Method Blow-by 01/25/25 16:54 O2 Flow Rate 6 01/25/25 09:00 FiO2 28 01/25/25 09:00 Neurological:: PVS (spontaneous eye opening without any cognitive response to any stimuli) Speech:: none Answers questions:: no Respiratory:: lungs clear and shallow breathing Cardiovascular: RRR Abdomen: soft and nontender Extremities:: deformities (Quadriparesis, spastic contractures) Tracheostomy:: to blow by Feeding per:: G tube ASSESSMENT & PLAN Assessment: 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 VSS . No pain issues. Tolerating feeding. VSS. No evident pain issues. Elevated AST/ALT Pt was transferred to ER/Hospitalized on 12/20/24 and treated for Influenza and bacterial pn and now returned to S/Ac on 12/26/24 in a stable condition with all medications continued as before. VSS. Tolerating feeding; Pain management reviewed. VSS Plan: All current treatment reviewed and continued
[2025-01-25] MEDS: ATORVASTATIN 40 MG TABLET GT (20:53)
[2025-01-25] MEDS: ACETAMINOPHEN 325 MG TABLET 650 MG GT (20:58)
[2025-01-26] VITALS (9 sets, daily range): BP systolic 97–114; BP diastolic 62–80; PULSE 59–99; RESP 16–24; TEMP 35.9–36.1; O2SAT 99
[2025-01-26] MEDS: BACLOFEN 20 MG TABLET GT ×4 (05:11→23:15)
[2025-01-26] MEDS: GABAPENTIN 300 MG CAPSULE GT ×3 (05:12→20:59)
[2025-01-26] MEDS: LANSOPRAZOLE 30 MG CAPSULE.DR GT (08:23)
[2025-01-26] MEDS: METOPROLOL 25 MG TABLET 100 MG GT ×2 (08:23→20:56)
[2025-01-26] MEDS: MULTIVITAMIN 1 TAB TABLET GT (08:23)
[2025-01-26] MEDS: ASCORBIC ACID 500 MG TABLET GT ×2 (08:23→20:56)
[2025-01-26] MEDS: LACTULOSE 10 GM 10 EA FEED TUBE (08:23)
[2025-01-26] MEDS: MORPHINE 20 MG/ML GT (13:55)
[2025-01-26] MEDS: ATORVASTATIN 40 MG TABLET GT (20:56)
[2025-01-26] MEDS: ACETAMINOPHEN 325 MG TABLET 650 MG GT (20:57)
[2025-01-27] VITALS (9 sets, daily range): BP systolic 92–110; BP diastolic 56–72; PULSE 58–89; RESP 16–24; TEMP 35.9; O2SAT 98–99
[2025-01-27] MEDS: BACLOFEN 20 MG TABLET GT ×3 (05:13→17:47)
[2025-01-27] MEDS: GABAPENTIN 300 MG CAPSULE GT ×3 (05:14→21:14)
[2025-01-27] MEDS: ASCORBIC ACID 500 MG TABLET GT ×2 (07:59→20:42)
[2025-01-27] MEDS: LANSOPRAZOLE 30 MG CAPSULE.DR GT (07:59)
[2025-01-27] MEDS: LACTULOSE 10 GM 10 EA FEED TUBE (07:59)
[2025-01-27] MEDS: METOPROLOL 25 MG TABLET 100 MG GT (08:01)
[2025-01-27] MEDS: MULTIVITAMIN 1 TAB TABLET GT (08:02)
[2025-01-27] MEDS: ATORVASTATIN 40 MG TABLET GT (20:44)
[2025-01-27] MEDS: ACETAMINOPHEN 325 MG TABLET 650 MG GT (20:46)
[2025-01-28] VITALS: BP 96/61; PULSE 76; RESP 18; TEMP 36.1
[2025-01-28] MEDS: BACLOFEN 20 MG TABLET GT ×5 (00:18→23:22)
[2025-01-28 06:00] VITALS: BP 100/66; PULSE 71; RESP 18; TEMP 36.1
[2025-01-28 06:54] VITALS: PULSE 81; RESP 18; O2SAT 99
[2025-01-28 08:59] VITALS: BP 100/65; PULSE 71
[2025-01-28] MEDS: MULTIVITAMIN 1 TAB TABLET GT (08:59)
[2025-01-28] MEDS: METOPROLOL 25 MG TABLET 100 MG GT ×2 (08:59→20:55)
[2025-01-28] MEDS: LANSOPRAZOLE 30 MG CAPSULE.DR GT (09:00)
[2025-01-28] MEDS: ASCORBIC ACID 500 MG TABLET GT ×2 (09:00→20:55)
[2025-01-28] MEDS: LACTULOSE 10 GM 10 EA FEED TUBE (09:00)
[2025-01-28] MEDS: GABAPENTIN 300 MG CAPSULE GT ×2 (13:40→21:29)
[2025-01-28] MEDS: MORPHINE 20 MG/ML GT (13:40)
[2025-01-28 16:31] VITALS: BMI 16.5
[2025-01-28 20:09] VITALS: PULSE 86; RESP 18; O2SAT 99
[2025-01-28] MEDS: ACETAMINOPHEN 325 MG TABLET 650 MG GT (20:54)
[2025-01-28 20:55] VITALS: BP 110/73; PULSE 84
[2025-01-28] MEDS: ATORVASTATIN 40 MG TABLET GT (20:55)
[2025-01-29] VITALS (9 sets, daily range): BP systolic 89–115; BP diastolic 55–82; PULSE 62–84; RESP 16–20; TEMP 36–36.3; O2SAT 98–99
[2025-01-29] MEDS: BACLOFEN 20 MG TABLET GT ×4 (05:36→17:20)
[2025-01-29] MEDS: GABAPENTIN 300 MG CAPSULE GT ×3 (05:36→22:00)
[2025-01-29] MEDS: MULTIVITAMIN 1 TAB TABLET GT (08:42)
[2025-01-29] MEDS: METOPROLOL 25 MG TABLET 100 MG GT ×2 (08:42→20:39)
[2025-01-29] MEDS: LACTULOSE 10 GM 10 EA FEED TUBE (08:43)
[2025-01-29] MEDS: ASCORBIC ACID 500 MG TABLET GT ×2 (08:43→20:39)
[2025-01-29] MEDS: LANSOPRAZOLE 30 MG CAPSULE.DR GT (08:43)
[2025-01-29] MEDS: MORPHINE 20 MG/ML GT (14:00)
[2025-01-29] MEDS: ATORVASTATIN 40 MG TABLET GT (20:39)
--- NOTE | 2025-01-29 21:00 | PD.SAPROG ---
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 (7) Encephalopathy: Status: Chronic (8) Quadriparesis: Status: Chronic SUBJECTIVE Fever:: none Shortness of Breath:: none Pain:: none OBJECTIVE Most recent vital signs: Last Vital Signs Temp 96.9 F 01/29/25 17:30 Pulse 65 01/29/25 20:39 Resp 18 01/29/25 17:30 BP 107/62 01/29/25 20:39 Pulse Ox 99 01/29/25 17:30 O2 Del Method Blow-by 01/27/25 17:54 O2 Flow Rate 6 01/29/25 15:40 FiO2 28 01/29/25 15:40 Neurological:: PVS (spontaneous eye opening without any cognitive response to any stimuli) Speech:: none Answers questions:: no Respiratory:: lungs clear and shallow breathing Cardiovascular: RRR Abdomen: soft and nontender Extremities:: deformities (Quadriparesis, spastic contractures) Tracheostomy:: to blow by Feeding per:: G tube ASSESSMENT & PLAN Assessment: 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 VSS . No pain issues. Tolerating feeding. VSS. No evident pain issues. Elevated AST/ALT Pt was transferred to ER/Hospitalized on 12/20/24 and treated for Influenza and bacterial pn and now returned to S/Ac on 12/26/24 in a stable condition with all medications continued as before. VSS. Tolerating feeding; Pain management reviewed. VSS Plan: All current treatment reviewed and continued
[2025-01-30] VITALS (8 sets, daily range): BP systolic 95–112; BP diastolic 59–85; PULSE 63–90; RESP 16–18; TEMP 35.9–36.1; O2SAT 95–100
[2025-01-30] MEDS: BACLOFEN 20 MG TABLET GT ×3 (05:24→17:45)
[2025-01-30] MEDS: GABAPENTIN 300 MG CAPSULE GT ×3 (05:24→21:19)
[2025-01-30] MEDS: ASCORBIC ACID 500 MG TABLET GT ×2 (08:24→20:27)
[2025-01-30] MEDS: LANSOPRAZOLE 30 MG CAPSULE.DR GT (08:24)
[2025-01-30] MEDS: LACTULOSE 10 GM 10 EA FEED TUBE (08:24)
[2025-01-30] MEDS: METOPROLOL 25 MG TABLET 100 MG GT (08:25)
[2025-01-30] MEDS: MULTIVITAMIN 1 TAB TABLET GT (08:25)
[2025-01-30] MEDS: ATORVASTATIN 40 MG TABLET GT (20:27)
[2025-01-31] VITALS (8 sets, daily range): BP systolic 90–125; BP diastolic 53–88; PULSE 58–108; RESP 17–20; TEMP 35.9–36.3; O2SAT 96–99
[2025-01-31] MEDS: BACLOFEN 20 MG TABLET GT ×4 (06:02→17:44)
[2025-01-31] MEDS: GABAPENTIN 300 MG CAPSULE GT ×3 (06:02→21:00)
[2025-01-31] MEDS: LACTULOSE 10 GM 10 EA FEED TUBE (08:31)
[2025-01-31] MEDS: ASCORBIC ACID 500 MG TABLET GT ×2 (08:31→20:53)
[2025-01-31] MEDS: LANSOPRAZOLE 30 MG CAPSULE.DR GT (08:32)
[2025-01-31] MEDS: METOPROLOL 25 MG TABLET 100 MG GT (08:33)
[2025-01-31] MEDS: MULTIVITAMIN 1 TAB TABLET GT (08:34)
[2025-01-31] MEDS: ATORVASTATIN 40 MG TABLET GT (20:53)
[2025-02-01] VITALS (9 sets, daily range): BP systolic 91–122; BP diastolic 55–88; PULSE 60–93; RESP 17–18; TEMP 36.3–36.6; O2SAT 95–98
[2025-02-01] MEDS: BACLOFEN 20 MG TABLET GT ×4 (05:10→17:35)
[2025-02-01] MEDS: GABAPENTIN 300 MG CAPSULE GT ×3 (05:10→21:15)
[2025-02-01] MEDS: ASCORBIC ACID 500 MG TABLET GT ×2 (08:42→20:47)
[2025-02-01] MEDS: LANSOPRAZOLE 30 MG CAPSULE.DR GT (08:44)
[2025-02-01] MEDS: LACTULOSE 10 GM 10 EA FEED TUBE (08:44)
[2025-02-01] MEDS: METOPROLOL 25 MG TABLET 100 MG GT ×2 (08:45→20:53)
[2025-02-01] MEDS: MULTIVITAMIN 1 TAB TABLET GT (08:45)
--- NOTE | 2025-02-01 15:32 | PC.SS ---
Resident remains on blow by with trach in place and GT for medication and nutrition. He is awake unable to make needs known, his mother Sara is his loan representative. He does not have POA in place, Sara is aware this service is provide in house but is unable to participate. Resident will remain in current care as he has no changes in care or condition, he will continue to have all subacute care needs met by staff. This SSD will continue to make daily contact with resident and will monitor for changes in mood and behavior.
[2025-02-01] MEDS: ATORVASTATIN 40 MG TABLET GT (20:51)
[2025-02-02] VITALS (8 sets, daily range): BP systolic 92–115; BP diastolic 59–83; PULSE 66–91; RESP 16–22; TEMP 36.1–36.5; O2SAT 95–100
[2025-02-02] MEDS: BACLOFEN 20 MG TABLET GT ×4 (00:31→17:26)
[2025-02-02] MEDS: GABAPENTIN 300 MG CAPSULE GT ×3 (05:36→21:02)
[2025-02-02] MEDS: MULTIVITAMIN 1 TAB TABLET GT (08:42)
[2025-02-02] MEDS: LACTULOSE 10 GM 10 EA FEED TUBE (08:42)
[2025-02-02] MEDS: LANSOPRAZOLE 30 MG CAPSULE.DR GT (08:42)
[2025-02-02] MEDS: ASCORBIC ACID 500 MG TABLET GT ×2 (08:42→20:49)
[2025-02-02] MEDS: METOPROLOL 25 MG TABLET 100 MG GT ×2 (08:42→20:53)
[2025-02-02] MEDS: MORPHINE 20 MG/ML GT (13:00)
[2025-02-02] MEDS: ATORVASTATIN 40 MG TABLET GT (20:50)
[2025-02-02] MEDS: ACETAMINOPHEN 325 MG TABLET 650 MG GT (20:54)
--- NOTE | 2025-02-02 21:36 | PD.SAPROG ---
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 (7) Encephalopathy: Status: Chronic (8) Quadriparesis: Status: Chronic SUBJECTIVE Fever:: none Shortness of Breath:: none Pain:: none OBJECTIVE Most recent vital signs: Last Vital Signs Temp 97.3 F 02/02/25 17:09 Pulse 73 02/02/25 20:53 Resp 18 02/02/25 17:09 BP 101/60 02/02/25 20:53 Pulse Ox 100 02/02/25 17:09 O2 Del Method Blow-by 02/01/25 17:36 O2 Flow Rate 6 02/02/25 07:15 FiO2 28 02/02/25 07:15 Neurological:: PVS (spontaneous eye opening without any cognitive response to any stimuli) Speech:: none Answers questions:: no Respiratory:: lungs clear and shallow breathing Cardiovascular: RRR Abdomen: soft and nontender Extremities:: deformities (Quadriparesis, spastic contractures) Tracheostomy:: to blow by Feeding per:: G tube ASSESSMENT & PLAN Assessment: 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 VSS . No pain issues. Tolerating feeding. VSS. No evident pain issues. Elevated AST/ALT Pt was transferred to ER/Hospitalized on 12/20/24 and treated for Influenza and bacterial pn and now returned to S/Ac on 12/26/24 in a stable condition with all medications continued as before. VSS. Tolerating feeding; Pain management reviewed. VSS. No new issues Plan: All current treatment reviewed and continued
[2025-02-03] VITALS (9 sets, daily range): BP systolic 94–125; BP diastolic 64–72; PULSE 79–105; RESP 17–20; TEMP 36.1–36.5; O2SAT 97–99
[2025-02-03] MEDS: BACLOFEN 20 MG TABLET GT ×5 (00:33→23:47)
[2025-02-03] MEDS: GABAPENTIN 300 MG CAPSULE GT ×3 (05:32→21:08)
[2025-02-03] MEDS: LACTULOSE 10 GM 10 EA FEED TUBE (08:40)
[2025-02-03] MEDS: METOPROLOL 25 MG TABLET 100 MG GT ×2 (08:40→21:11)
[2025-02-03] MEDS: LANSOPRAZOLE 30 MG CAPSULE.DR GT (08:40)
[2025-02-03] MEDS: MULTIVITAMIN 1 TAB TABLET GT (08:40)
[2025-02-03] MEDS: ASCORBIC ACID 500 MG TABLET GT ×2 (08:41→21:08)
[2025-02-03] MEDS: ATORVASTATIN 40 MG TABLET GT (21:08)
[2025-02-03] MEDS: ACETAMINOPHEN 325 MG TABLET 650 MG GT (21:11)
[2025-02-04] VITALS (8 sets, daily range): BP systolic 96–121; BP diastolic 56–73; PULSE 74–120; RESP 18–21; TEMP 36.2–37.4; O2SAT 94–99
[2025-02-04] MEDS: GABAPENTIN 300 MG CAPSULE GT ×3 (05:33→21:36)
[2025-02-04] MEDS: BACLOFEN 20 MG TABLET GT ×3 (05:33→17:10)
[2025-02-04] MEDS: ACETAMINOPHEN 325 MG TABLET 650 MG GT ×2 (08:30→20:32)
[2025-02-04] MEDS: ASCORBIC ACID 500 MG TABLET GT ×2 (09:08→20:30)
[2025-02-04] MEDS: LACTULOSE 10 GM 10 EA FEED TUBE (09:09)
[2025-02-04] MEDS: LANSOPRAZOLE 30 MG CAPSULE.DR GT (09:09)
[2025-02-04] MEDS: METOPROLOL 25 MG TABLET 100 MG GT ×2 (09:10→20:32)
[2025-02-04] MEDS: MULTIVITAMIN 1 TAB TABLET GT (09:11)
[2025-02-04] MEDS: ATORVASTATIN 40 MG TABLET GT (20:30)
[2025-02-05] VITALS (8 sets, daily range): BP systolic 92–117; BP diastolic 61–78; PULSE 70–83; RESP 16–20; TEMP 36–36.4; O2SAT 97–100
[2025-02-05] MEDS: GABAPENTIN 300 MG CAPSULE GT ×2 (06:00→21:02)
[2025-02-05] MEDS: BACLOFEN 20 MG TABLET GT ×2 (06:01)
[2025-02-05] MEDS: ASCORBIC ACID 500 MG TABLET GT ×2 (08:44→21:04)
[2025-02-05] MEDS: LANSOPRAZOLE 30 MG CAPSULE.DR GT (08:45)
[2025-02-05] MEDS: LACTULOSE 10 GM 10 EA FEED TUBE (08:45)
[2025-02-05] MEDS: METOPROLOL 25 MG TABLET 100 MG GT ×2 (08:46→21:05)
[2025-02-05] MEDS: MULTIVITAMIN 1 TAB TABLET GT (08:46)
--- NOTE | 2025-02-05 15:13 | PC.NURSE ---
Resident is non verbal ,PVS , totally dependent with ADLs, currently on Zyprexa 5 mg daily. Discussed by the team. Order received from Dr Nichols to discontinue zyprexa.
[2025-02-05] MEDS: ATORVASTATIN 40 MG TABLET GT (21:04)
[2025-02-05] MEDS: ACETAMINOPHEN 325 MG TABLET 650 MG GT (21:05)
[2025-02-06] VITALS (8 sets, daily range): BP systolic 92–108; BP diastolic 53–71; PULSE 62–91; RESP 20–22; TEMP 35.7–36; O2SAT 98–100
[2025-02-06] MEDS: BACLOFEN 20 MG TABLET GT ×5 (00:29→23:26)
[2025-02-06] MEDS: GABAPENTIN 300 MG CAPSULE GT ×3 (05:29→21:15)
[2025-02-06] MEDS: ASCORBIC ACID 500 MG TABLET GT ×2 (09:24→21:16)
[2025-02-06] MEDS: LANSOPRAZOLE 30 MG CAPSULE.DR GT (09:24)
[2025-02-06] MEDS: LACTULOSE 10 GM 10 EA FEED TUBE (09:24)
[2025-02-06] MEDS: MULTIVITAMIN 1 TAB TABLET GT (09:25)
[2025-02-06] MEDS: ATORVASTATIN 40 MG TABLET GT (21:17)
--- NOTE | 2025-02-06 22:37 | PD.SAPROG ---
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 (7) Encephalopathy: Status: Chronic (8) Quadriparesis: Status: Chronic SUBJECTIVE Fever:: none Shortness of Breath:: none Pain:: none OBJECTIVE Most recent vital signs: Last Vital Signs Temp 96.3 F L 02/06/25 17:38 Pulse 73 02/06/25 21:17 Resp 20 02/06/25 17:38 BP 98/53 L 02/06/25 21:17 Pulse Ox 100 02/06/25 07:10 O2 Del Method Blow-by 02/06/25 17:38 O2 Flow Rate 6 02/06/25 17:38 FiO2 28 02/06/25 17:38 Neurological:: PVS (spontaneous eye opening without any cognitive response to any stimuli) Speech:: none Answers questions:: no Respiratory:: lungs clear and shallow breathing Cardiovascular: RRR Abdomen: soft and nontender Extremities:: deformities (Quadriparesis, spastic contractures) Tracheostomy:: to blow by Feeding per:: G tube ASSESSMENT & PLAN Assessment: 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 VSS . No pain issues. Tolerating feeding. VSS. No evident pain issues. Elevated AST/ALT Pt was transferred to ER/Hospitalized on 12/20/24 and treated for Influenza and bacterial pn and now returned to S/Ac on 12/26/24 in a stable condition with all medications continued as before. VSS. Tolerating feeding; Pain management reviewed. VSS. No new issues Plan: All current treatment reviewed and continued
[2025-02-07] VITALS (8 sets, daily range): BP systolic 89–115; BP diastolic 52–79; PULSE 62–86; RESP 18–20; TEMP 36.1–36.2; O2SAT 96–99
[2025-02-07] MEDS: GABAPENTIN 300 MG CAPSULE GT ×3 (05:05→21:03)
[2025-02-07] MEDS: BACLOFEN 20 MG TABLET GT ×3 (05:05→17:31)
[2025-02-07] MEDS: LACTULOSE 10 GM 10 EA FEED TUBE (08:23)
[2025-02-07] MEDS: ASCORBIC ACID 500 MG TABLET GT ×2 (08:23→20:40)
[2025-02-07] MEDS: LANSOPRAZOLE 30 MG CAPSULE.DR GT (08:25)
[2025-02-07] MEDS: METOPROLOL 25 MG TABLET 100 MG GT (08:26)
[2025-02-07] MEDS: MULTIVITAMIN 1 TAB TABLET GT (08:26)
--- NOTE | 2025-02-07 10:00 | PC.SS ---
Resident remains in current care on blow by with trach in place and GT for medication and nutrition. Resident is unable to make needs known, his mother Sara is his decision maker. Resident does not have POA in place nor is he able to participate in this process. Resident will continue to have all subacute care needs met by staff and will continue to have daily room visits.
[2025-02-07] MEDS: MORPHINE 20 MG/ML GT (15:00)
[2025-02-07] MEDS: ATORVASTATIN 40 MG TABLET GT (20:41)
[2025-02-08] VITALS (8 sets, daily range): BP systolic 99–111; BP diastolic 60–81; PULSE 60–88; RESP 18–19; TEMP 35.9–36.1; O2SAT 97–98
[2025-02-08] MEDS: BACLOFEN 20 MG TABLET GT ×2 (00:46→11:52)
[2025-02-08] MEDS: LACTULOSE 10 GM 10 EA FEED TUBE (08:53)
[2025-02-08] MEDS: ASCORBIC ACID 500 MG TABLET GT ×2 (08:53→21:08)
[2025-02-08] MEDS: LANSOPRAZOLE 30 MG CAPSULE.DR GT (08:54)
[2025-02-08] MEDS: METOPROLOL 25 MG TABLET 100 MG GT (08:55)
[2025-02-08] MEDS: ACETAMINOPHEN 325 MG TABLET 650 MG GT (08:56)
[2025-02-08] MEDS: MULTIVITAMIN 1 TAB TABLET GT (08:56)
[2025-02-08] MEDS: GABAPENTIN 300 MG CAPSULE GT ×2 (13:40→21:05)
[2025-02-08] MEDS: ATORVASTATIN 40 MG TABLET GT (21:08)
[2025-02-09] VITALS (7 sets, daily range): BP systolic 102–115; BP diastolic 62–79; PULSE 72–85; RESP 16–20; TEMP 36.1–36.2; O2SAT 99
[2025-02-09] MEDS: BACLOFEN 20 MG TABLET GT ×4 (00:05→17:08)
[2025-02-09] MEDS: GABAPENTIN 300 MG CAPSULE GT ×3 (05:37→21:19)
[2025-02-09] MEDS: ASCORBIC ACID 500 MG TABLET GT ×2 (08:57→20:58)
[2025-02-09] MEDS: LACTULOSE 10 GM 10 EA FEED TUBE (08:58)
[2025-02-09] MEDS: LANSOPRAZOLE 30 MG CAPSULE.DR GT (08:59)
[2025-02-09] MEDS: METOPROLOL 25 MG TABLET 100 MG GT ×2 (09:00→21:20)
[2025-02-09] MEDS: MULTIVITAMIN 1 TAB TABLET GT (09:00)
[2025-02-09] MEDS: MORPHINE 20 MG/ML GT (11:40)
[2025-02-09] MEDS: ATORVASTATIN 40 MG TABLET GT (20:58)
[2025-02-10] VITALS (7 sets, daily range): BP systolic 99–116; BP diastolic 66–85; PULSE 65–101; RESP 16–20; TEMP 36.1–39.4; O2SAT 98
[2025-02-10] MEDS: BACLOFEN 20 MG TABLET GT ×5 (00:05→23:32)
[2025-02-10] MEDS: GABAPENTIN 300 MG CAPSULE GT ×3 (05:40→21:08)
[2025-02-10] MEDS: ASCORBIC ACID 500 MG TABLET GT ×2 (08:25→21:07)
[2025-02-10] MEDS: LACTULOSE 10 GM 10 EA FEED TUBE (08:27)
[2025-02-10] MEDS: LANSOPRAZOLE 30 MG CAPSULE.DR GT (08:27)
[2025-02-10] MEDS: METOPROLOL 25 MG TABLET 100 MG GT ×2 (08:29→21:08)
[2025-02-10] MEDS: MULTIVITAMIN 1 TAB TABLET GT (08:30)
--- NOTE | 2025-02-10 18:01 | PD.SAPROG ---
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 (7) Encephalopathy: Status: Chronic (8) Quadriparesis: Status: Chronic SUBJECTIVE Fever:: none Shortness of Breath:: none Pain:: none OBJECTIVE Most recent vital signs: Last Vital Signs Temp 96.9 F 02/10/25 06:00 Pulse 101 H 02/10/25 17:33 Resp 18 02/10/25 17:33 BP 111/73 02/10/25 08:29 Pulse Ox 98 02/10/25 17:33 O2 Del Method Blow-by 02/09/25 16:42 O2 Flow Rate 6 02/10/25 17:33 FiO2 28 02/10/25 17:33 Neurological:: PVS (spontaneous eye opening without any cognitive response to any stimuli) Speech:: none Answers questions:: no Respiratory:: lungs clear and shallow breathing Cardiovascular: RRR Abdomen: soft and nontender Extremities:: deformities (Quadriparesis, spastic contractures) Tracheostomy:: to blow by Feeding per:: G tube ASSESSMENT & PLAN Assessment: 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 VSS . No pain issues. Tolerating feeding. VSS. No evident pain issues. Elevated AST/ALT Pt was transferred to ER/Hospitalized on 12/20/24 and treated for Influenza and bacterial pn and now returned to S/Ac on 12/26/24 in a stable condition with all medications continued as before. VSS. Tolerating feeding; Pain management reviewed. VSS. No new issues. stable clinically. Prognosis poor Plan: All current treatment reviewed and continued
[2025-02-10] MEDS: ATORVASTATIN 40 MG TABLET GT (21:08)
[2025-02-10] MEDS: ACETAMINOPHEN 325 MG TABLET 650 MG GT (21:42)
[2025-02-10 22:11] LABS: Basophils # (Auto) 0.0 Thou/mm3 (0.0-0.2); Basophils % (Auto) 0 % (0-2.5); Eosinophils # (Auto) 0.1 Thou/mm3 (0.0-0.5); Eosinophils % (Auto) 1 % (0-10); Hematocrit 26.6 % (41.0-53.0); Immature Granulocytes Auto 0.05 Thou/mm3 (0.00-0.00); Lymphocytes # (Auto) 1.1 Thou/mm3 (1.0-4.8); Lymphocytes % (Auto) 10 % (10-50); Mean Corpuscular HGB Conc 31.2 g/dl (31.0-37.0); Mean Corpuscular Hemoglobin 25.3 pg (25.0-35.0); Mean Corpuscular Volume 81 fL (80-100); Monocytes # (Auto) 1.4 Thou/mm3 (0.0-0.8); Monocytes % (Auto) 13 % (0-12); Neutrophils # (Auto) 8.7 Thou/mm3 (1.8-7.7); Neutrophils % (Auto) 76 % (37-80); Nucleated Red Blood Cell # 0.00 Thou/mm3 (0.00-0.00); Nucleated Red Blood Cell % 0 /100 WBC (0); Platelet Count 217 Thou/mm3 (140-440); RDW Standard Deviation 66.8 fL (35.1-43.9); Red Blood Count 3.28 Miln/mm3 (4.50-5.90); White Blood Count 11.4 Thou/mm3 (3.8-10.6)
[2025-02-10 22:13] LABS: Hemoglobin 8.3 g/dL (13.5-16.0)
[2025-02-10 22:27] LABS: Collection Type, Urine Catheter
[2025-02-10 22:38] LABS: Procalcitonin 0.18 ng/ml (0.0-0.49)
[2025-02-10 22:41] LABS: Amorphous Crystals,Urine Present (Absent); Bilirubin,Urine Negative (Negative); Blood,Urine Negative (Negative); Clarity,Urine Clear (Clear/Hazy); Color,Urine Yellow (Lt Yel-Yel); Glucose, Urine Negative (Negative); Ketones,Urine Negative (Negative); Leukocyte Esterase,Urine Negative (Negative); Nitrite,Urine Negative (Negative); PH,Urine 8.0 (5.0-7.0); Protein,Urine Negative (Neg - Trace); RBC,Urine 3 /hpf (0-3); Specific Gravity,Urine 1.019 (1.001-1.035); Squamous Epithelial Cell,Urine < 1 /hpf (0-5); Urobilinogen,Urine Negative mg/dL (0.0-1.0); WBC,Urine 2 /hpf (0-5)
[2025-02-10 22:42] LABS: COVID-19 Antigen (In-House) Negative (Negative)
[2025-02-10 22:48] LABS: Influenza A Ag Negative
[2025-02-10 22:49] LABS: Influenza B Ag Negative
[2025-02-11] VITALS (10 sets, daily range): BP systolic 101–121; BP diastolic 57–77; PULSE 61–98; RESP 18–22; TEMP 34.4–38.1; O2SAT 98–99
[2025-02-11] MEDS: GABAPENTIN 300 MG CAPSULE GT ×3 (05:41→21:02)
[2025-02-11] MEDS: BACLOFEN 20 MG TABLET GT ×3 (05:41→17:14)
--- NOTE | 2025-02-11 06:20 | PC.NURSE ---
At 2145 resident was hot to the touch, VS:139/76,103.0,137,32, O2sat 95%, fever protocol initial, resident placed on contact, made aware of lab results and current temp. of 95.9F rectally, new order to monitor temp. and culture wounds to back of [email or web address]. knee, pending all cultures, resident in room resting, call light within reach, HOB elevated.
[2025-02-11] MEDS: LANSOPRAZOLE 30 MG CAPSULE.DR GT (08:49)
[2025-02-11] MEDS: LACTULOSE 10 GM 10 EA FEED TUBE (08:49)
[2025-02-11] MEDS: ASCORBIC ACID 500 MG TABLET GT ×2 (08:49→21:03)
[2025-02-11] MEDS: METOPROLOL 25 MG TABLET 100 MG GT ×2 (08:50→21:04)
[2025-02-11] MEDS: MULTIVITAMIN 1 TAB TABLET GT (08:51)
[2025-02-11] MEDS: ACETAMINOPHEN 325 MG TABLET 650 MG GT ×2 (12:50→21:15)
[2025-02-11] MEDS: ATORVASTATIN 40 MG TABLET GT (21:03)
[2025-02-12] VITALS: BP 137/81; PULSE 123; RESP 24; TEMP 38.2
[2025-02-12] MEDS: BACLOFEN 20 MG TABLET GT (00:09)
[2025-02-12 01:15] VITALS: TEMP 38.2
[2025-02-12] MEDS: ACETAMINOPHEN 325 MG TABLET 650 MG GT (01:15)
[2025-02-12 02:30] VITALS: TEMP 39.5
--- NOTE | 2025-02-12 03:59 | PC.NURSE ---
Resident had rectal temp of 100.5 at 2145, Tylenol was given, rechecked temp T 2300, rectal temp was 100.7, continued with cooling measures. Tylenol given at 0115 for rectal temp of 103.1, RR: 24, HR: 153 and BP: 145/91, new order received to send resident to ER for further evaluation. Called ER for bed placement at 0240, stated they didn't have a room at this time, would call back when room was available. Received call from ER at 0330, room available, notified RT, resident taken to ER at 0350 via bed to room 2.
== END 2025-02-19 00:01 | disposition admitted as inpatient to this hospital (09) | DRG 130 ==
PROVIDERS: Admitting Provider Specialist; PCP Family Medicine; Visit Provider Specialist
DX: J96.10 Chronic respiratory failure, unspecified whether with hypoxia or hypercapnia (principal); Z93.1 Gastrostomy status; Z93.0 Tracheostomy status; R56.9 Unspecified convulsions; G93.40 Encephalopathy, unspecified; G82.50 Quadriplegia, unspecified; I77.6 Arteritis, unspecified; F14.188 Cocaine abuse with other cocaine-induced disorder
CPT/HCPCS: 36415; 36600; 73562; 80053; 80069; 80076; 80177; 81001; 82803; 84145; 85025; 86331; 86635; 87040; 87070; 87077; 87086; 87186; 87205; 87502; 87811

== ENCOUNTER 2024-12-20 04:51 | Inpatient (IN) | payer OTHER, SELFPAY ==
[2024-12-20] VITALS (79 sets, daily range): BP systolic 94–129; BP diastolic 51–80; PULSE 79–150; RESP 6–35; TEMP 34.3–38.9; O2SAT 72–100; BMI 15.5
--- NOTE | 2024-12-20 05:39 | EKG_ITS ---
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
--- NOTE | 2024-12-20 05:51 | PD.EDRME ---
Rapid Medical Screening Exam RME Arrival date/time: 12/20/24 04:51 Chief Complaint: General Adult/Misc Complain Vital signs: Vital Signs Pulse Rate 82 12/20/24 04:55 Respiratory Rate 16 12/20/24 04:55 Pulse Oximetry (%) 98 12/20/24 04:55 Oxygen Flow Rate 6 12/20/24 04:55 E Narrative: 29yo male brought from subacute presents to the ED for a chief complaint of hypothermia. No other symptoms reported per subacute staff.
[2024-12-20 05:54] LABS: Lactate (Lactic Acid) 1.4 mMol/L (0.4-2.0)
[2024-12-20 05:54] LABS: Collection Type, Urine Catheter; Squamous Epithelial Cell,Urine 0 /hpf (0-5)
[2024-12-20 06:18] LABS: Basophils # (Auto) 0.0 Thou/mm3 (0.0-0.2); Basophils % (Auto) 0 % (0-2.5); Eosinophils # (Auto) 0.2 Thou/mm3 (0.0-0.5); Eosinophils % (Auto) 2 % (0-10); Hematocrit 25.0 % (41.0-53.0); Immature Granulocytes Auto 0.06 Thou/mm3 (0.00-0.00); Lymphocytes # (Auto) 1.0 Thou/mm3 (1.0-4.8); Lymphocytes % (Auto) 7 % (10-50); Mean Corpuscular HGB Conc 30.4 g/dl (31.0-37.0); Mean Corpuscular Hemoglobin 24.6 pg (25.0-35.0); Mean Corpuscular Volume 81 fL (80-100); Monocytes # (Auto) 0.9 Thou/mm3 (0.0-0.8); Monocytes % (Auto) 6 % (0-12); Neutrophils # (Auto) 12.0 Thou/mm3 (1.8-7.7); Neutrophils % (Auto) 85 % (37-80); Nucleated Red Blood Cell # 0.00 Thou/mm3 (0.00-0.00); Nucleated Red Blood Cell % 0 /100 WBC (0); Platelet Count 315 Thou/mm3 (140-440); RDW Standard Deviation 58.4 fL (35.1-43.9); Red Blood Count 3.09 Miln/mm3 (4.50-5.90); White Blood Count 14.2 Thou/mm3 (3.8-10.6)
[2024-12-20 06:18] LABS: Bilirubin,Urine Negative (Negative); Blood,Urine Negative (Negative); Clarity,Urine Clear (Clear/Hazy); Color,Urine Yellow (Lt Yel-Yel); Glucose, Urine Negative (Negative); Ketones,Urine Negative (Negative); Leukocyte Esterase,Urine Positive (Negative); Nitrite,Urine Negative (Negative); PH,Urine 7.5 (5.0-7.0); Protein,Urine 1+ (Neg - Trace); RBC,Urine 3 /hpf (0-3); Specific Gravity,Urine 1.019 (1.001-1.035); Urobilinogen,Urine Negative mg/dL (0.0-1.0); WBC,Urine 15 /hpf (0-5)
[2024-12-20 06:24] LABS: Hemoglobin 7.6 g/dL (13.5-16.0)
[2024-12-20 06:28] LABS: Alanine Aminotransferase 48 U/L (10-49); Albumin, Serum 3.4 gm/dL (3.5-5.0); Albumin/Globulin Ratio 0.7 (1.2-2.2); Alkaline Phosphatase 295 U/L (46-116); Anion Gap 7 (7-16); Aspartate Amino Transferase 38 U/L (0-34); BUN/Creatinine Ratio 39 Ratio (12-20); Bilirubin,Total < 0.2 mg/dL (0.3-1.2); Blood Urea Nitrogen 39 mg/dL (9-23); Calcium 11.6 mg/dL (8.3-10.6); Calcium (Corrected) 12.1 mg/dL (8.5-10.1); Carbon Dioxide 31.0 mMol/L (20.0-31.0); Chloride 107 mMol/L (98-107); Creatinine (Component) 1.0 mg/dL (0.6-1.3); Estimated Creatinine Clearance 81.1 mL/min (>60); Globulin 4.6 gm/dL (2.3-3.5); Glucose 108 mg/dL (74-106); Osmolality,Calculated 299 (275-295); Potassium 3.6 mMol/L (3.4-5.1); Sodium 145 mMol/L (136-145); Total Protein 8.0 gm/dL (5.7-8.2); eGFR > 60 See Note
--- NOTE | 2024-12-20 06:29 | XR_ITS ---
Examination: AP chest single view Technique one AP portable semiupright chest single view Date and time: December 20, 2024 0659 hours Comparison October 31, 2024 INDICATIONS: Coughing today. FINDINGS: Normal heart size. No pneumonia or pulmonary edema Tracheal tube tip 3.6 cm above nahid The osseous structures are intact IMPRESSION: No active disease
--- NOTE | 2024-12-20 06:32 | EDNOTE_ITS ---
ED General RME/HPI General Chief complaint: General Adult/Misc Complain Stated complaint: LOW TEMP, LOW BP Time Seen by Provider: 12/20/24 06:27 Arrival date/time: 12/20/24 04:51 Limitations: language barrier and physical limitation RME / HPI RME / HPI narrative: 29yo male brought from subacute presents to the ED for a chief complaint of hypothermia. No other symptoms reported per subacute staff. DR. CAIN MAIN ED EVALUATION: 29 year old male with past medical history significant for cocaine induced vasculitis, chronically trach and PEG, chronic quadriplegia, and seizures prese nts to the Emergency Department from our subacute unit for complaint of hypothermia. Patient's vital were a BP of 80/55, HR of 88, RR 16, and 94 F rectal temperature. Per subacute staff, patient was less awake. No known allergies. Code Status: DNR Related Data Previous Rx's ?Medication ?Instructions ?Recorded albuterol sulfate 2.5 mg/3 mL 2.5 mg (3 mL) inhalation Q4H PRN 11/03/24 (0.083 %) solution for nebulization shortness of breat h or wheezing 365 days ascorbic acid (vitamin C) 500 mg 500 mg G-tube BID sup plement 365 11/03/24 tablet days #365 tabs atorvastatin 40 mg tablet 40 mg G-tube HS hyperlipidem ia 365 11/03/24 days #365 tabs baclofen 20 mg tablet 20 mg G-tube Q6HR muscle spa sms 11/03/24 365 days #365 tabs bisacodyl 10 mg rectal suppository 10 mg OK PRN PRN No BM Per Bowel 11/03/24 (Dulcolax (bisacodyl)) Management Protocol 365 days gabapentin 300 mg capsule 300 mg G-tube TID neuropathi c pain 11/03/24 365 days #365 caps ipratropium 0.5 mg-albuterol 3 mg 3 ml INH Q2HR PRN Wh eezing 365 days 11/03/24 (2.5 mg base)/3 mL nebulization soln levetiracetam 100 mg/mL oral 1,000 mg (10 mL) G-tube B ID 11/03/24 solution seizures 365 days #3,650 mL magnesium hydroxide 400 mg/5 mL 30 ml G-tube PRN PRN C onstipation 11/03/24 oral suspension (Milk of Magnesia) 365 days midodrine 5 mg tablet 5 mg G-tube TID PRN Hold for 11/03/24 SBP>90 and DBP>50 365 days polyethylene glycol 3350 17 gram 17 g G-tube PRN PRN N o BM Per 11/03/24 oral powder packet Bowel Management Protocol 36 5 days sodium phosphates 19 gram-7 133 ml OK PRN PRN No BM Pe r Bowel 11/03/24 gram/118 mL enema (Fleet Enema) Management Protocol 36 5 days lansoprazole 30 mg capsule,delayed 30 mg G-tube QDAY G ERD 365 days 11/04/24 release #365 caps multivitamin 1 tab G-tube QDAY supplement 365 11/04/24 days #365 tabs acetaminophen 325 mg tablet 650 mg (2 x 325 mg) G-tube Q6HR 11/05/24 PRN Pain 365 days acetaminophen 325 mg tablet 650 mg (2 x 325 mg) G-tube Q4HR 11/07/24 PRN Fever > 100.4 90 days olanzapine 5 mg tablet 5 mg G-tube QDAY Anxiety 365 days 11/09/24 #365 tabs lactulose 10 gram/15 mL oral 10 g (15 mL) feeding tube QDAY 12/04/24 solution constipation 30 days #450 mL silver nitrate applicators 75 %-25 1 ea top PRN PRN Wo und Management 12/04/24 % topical stick 30 days metoprolol tartrate 25 mg tablet 100 mg (4 x 25 mg) G- tube BID 365 12/05/24 days #1,460 tabs Allergies Allergy/AdvReac Type Severity Reaction Status Date / Time No Known Allergies Allergy Unverified 10/23/24 09:16 Review of Systems Review of Systems ROS Unobtainable: unobtainable due to medical condition Past Medical History Past Medical History NEUROLOGIC: Positive Neurological Disorders CARDIAC: Positive Hypotension RESPIRATORY: Positive Pneumonia GASTROINTESTINAL: Positive Gastrointestinal Disorders and Gastroesophageal Reflux Disease ENDOCRINE: Positive Systemic Lupus Erythematosus Surgical History SURGICAL: Positive Tracheostomy and Gastrostomy Social History SMOKING STATUS: Unknown if ever smoked SECOND HAND EXPOSURE: No SUBSTANCE USE: crack/cocaine ED Exam General Limitations: Present language barrier and physical limitation General appearance: Present other (at baseline; congested) Head Head exam: Present atraumatic, normocephalic and normal inspection Eye Eye exam: Present normal appearance, PERRL and EOMI ENT ENT exam: Present normal exam, normal oropharynx and mucous membranes moist Neck Neck exam: Present trachea midline and other (tracheostomy in place, surrounding site is clear without signs of infection) Chest Chest inspection: Present normal inspection and symmetric chest wall rise Respiratory Respiratory exam: Present normal lung sounds bilaterally Cardiovascular Cardiovascular exam: Present normal rhythm, tachycardia and normal heart sounds Abdominal Exam Abdominal exam: Present other (feeding tube in place) Extremities Exam Extremities exam: Present other (lower extremities, plantar flexion); Absent pedal edema Back Exam Back exam: Present normal inspection Neurological Exam Neurological exam: Present other (at baseline; eyes are open, nonverbal) Skin Skin exam: Present warm, dry, intact and normal color Course Quality Measures none Orders Category Date Time Status Bedside Influenza A&B Antigen Test NOW Care 12/20/24 10:52 Completed COVID-19 Screening Questionnaire NOW Care 12/20/24 11:17 Active Decision to Admit X1 Care 12/20/24 11:17 Active EKG (ED ONLY) *Do not use* NOW Care 12/20/24 05:39 Completed Langston [Urinary Catheter] QS Care 12/20/24 05:39 Active CXRP [XR chest 1V portable] Stat Exams 12/20/24 06:29 Completed EKG (ED Only) Stat Exams 12/20/24 05:39 Stop Req Blood Culture (Lab) Stat Lab 12/20/24 05:45 Received CBC Stat Lab 12/20/24 05:45 Completed CMP [Comprehensive Metabolic Panel] Stat Lab 12/20/24 05:45 Completed Lactate (Lactic Acid) Stat Lab 12/20/24 05:45 Completed Urinalysis, C/S if Indicated Stat Lab 12/20/24 05:18 Completed Urine Culture Stat Lab 12/20/24 05:18 Received Acetaminophen Supp [Tylenol Supp] Med 12/20/24 10:51 Discontinued 650 mg OK X1 ONE Piper/Tazo 3.375 gm Premix [Zosyn] Med 12/20/24 10:48 Discontinued 3.375 gm in 50 ml IV X1 Sodium Chloride 0.9% 1000 ml [Ns] 1,000 ml Med 12/20/24 10:48 Discontinued IV 999 mls/hr Vital Signs Vital signs: Vital Signs Pulse Rate 82 12/20/24 04:55 Respiratory Rate 16 12/20/24 04:55 Pulse Oximetry (%) 98 12/20/24 04:55 Oxygen Flow Rate 6 12/20/24 04:55 Discharge Plan Plan Patient Disposition: Admit Acute Care w/in Hospital Problem List Clinical Impression: Sepsis, Acute febrile illness, UTI (urinary tract infection), Dehydration [facility] Narrative [facility] hospital course: [place], am scribing for and in the presence of Dr. Cain. Clinical Information Provided by other: subacute staff Medical Records Reviewed [facility] Meds/Rx Considered, not Ordered None Labs/Rad/Tests considered, not Ordered None Chronic Illness/Social Conditions Add or document further as needed: Cocaine induced vasculitis, chronically trach and PEG, chronic quadriplegia, and seizures. No known allergies. Code Status: DNR EKG EKG Interpretation narrative: My interpretation: EKG performed at 0606 hours, sinus rhythm, rate 83, little artifact, no acute changes Imaging Radiology reports / interpretation(s): Procedure(s): XR chest 1V portable Accession Number(s): [id number] cc: Andrei Cain MD; Erick Wellington MD; NO PRIMARY/FAMILY,PHYSICIAN~ Examination: AP chest single view Technique one AP portable semiupright chest single view Date and time: December 20, 2024 0659 hours Comparison October 31, 2024 INDICATIONS: Coughing today. FINDINGS: Normal heart size. No pneumonia or pulmonary edema Tracheal tube tip 3.6 cm above nahid The osseous structures are intact IMPRESSION: No active disease Dictated By: Erick Wellington MD Medication Administration(s) Medication Administration History Piperacillin/Tazobactam/Dextrose (Zosyn) 3.375 gm in 50 mls @ 12.5 mls/hr IV Q8HR RADHA Stop: 12/27/24 21:59 Lactated Ringer's (Lactated Ringers) 1,000 mls @ 75 mls/hr IV .[id number] RADHA Stop: 01/19/25 14:22 Vancomycin/Sodium Chloride (Vancomycin/Ns 1 Gm Ivpb) 200 mls @ 120 mls/hr IV X1 ONE Stop: 12/20/24 16:09 Ondansetron HCl (Ondansetron Inj 2 Mg/Ml Inj 2 Ml) 4 mg IVP Q6HR PRN; Protocol PRN Reason: NAUSEA OR VOMITING Stop: 01/19/25 14:21 Pharmacy Consult (Vancomycin Pharmacy To Dose 1 Each Each) 1 each IV QDAY PRN PRN Reason: CONSULT Stop: 01/19/25 14:29 Pharmacy Consult (Pharmacy Renal Dose Adjustment 1 Ea) 1 each XX PRN PRN PRN Reason: CONSULT Stop: 01/19/25 14:20 Discontinued Medications Acetaminophen (Acetaminophen Supp 650 Mg Supp) 650 mg OK X1 ONE Stop: 12/20/24 10:52 Last Admin: 12/20/24 12:23 Dose: 650 mg Documented By: CG Sodium Chloride (Ns) 1,000 mls @ 999 mls/hr IV .Q1H1M ONE Stop: 12/20/24 11:48 Last Infusion: 12/20/24 12:34 Dose: Infused Documented By: Admin: 12/20/24 10:48 Dose: 999 mls/hr Documented By: CG Piperacillin/Tazobactam/Dextrose (Zosyn) 3.375 gm in 50 mls @ 100 mls/hr IV X1 ONE Stop: 12/20/24 11:17 Last Infusion: 12/20/24 13:15 Dose: Infused Documented By: Admin: 12/20/24 12:20 Dose: 100 mls/hr Documented By: CG Lactated Ringer's (Lactated Ringers) 1,000 mls @ 999 mls/hr IV .Q1H1M ONE Stop: 12/20/24 13:12 Last Infusion: 12/20/24 13:15 Dose: Infused Documented By: Admin: 12/20/24 12:23 Dose: 999 mls/hr Documented By: CG Consultations/Discussions re: Management Consult #1: Date/time: 12/20/24 11:21 am Physician, specialty, service, details: Discussed test HPI, PMHx, lab, radiology results and/or management with resident working with the hospitalist. Will admit for further evaluation and management. Accepts patient for admission. Diagnosis Differential diagnosis: hypothermia, malnutrition, cocaine induced vasculitis, seizure Most likely dx, and/or detailed dx discussion: Sepsis Acute febrile illness UTI Dehydration Dispositon Disposition: Admit
[2024-12-20 07:01] LABS: Culture Indicated,Urine Yes
[2024-12-20] MEDS: SODIUM CHLORIDE 0.9% 1000 ML 1,000 ML 999 ML IV (10:48)
[2024-12-20] MEDS: PIPER/TAZO 3.375 GM PREMIX 3.375 GM/50 ML BAG IV ×2 (12:20→22:07)
[2024-12-20] MEDS: ACETAMINOPHEN SUPP 650 MG SUPP PR (12:23)
[2024-12-20] MEDS: RINGERS LACTATED 1000 ML 1,000 ML 999 ML IV (12:23)
--- NOTE | 2024-12-20 13:27 | ESHP_ITS ---
<Statement entered by Gabriel Og MD - 12/23/24 14:59> I have discussed and was present for the essential components of the history, physical examination, diagnosis, and treatment plan with the resident. I agree with the patient's care as documented by the resident and amended herein by me. Gabriel Og MD FACP. <Statement entered by Wil Howard MD - 12/21/24 12:53> Patient seen and examined at bedside, no acute overnight events. I discussed and supervised with the real estate internship physician who took care of this patient. I personally saw and examined the patient. I agree with most of the assessment and plan. Patient presented with fevers, less responsive than usual. Patient quadriplegic, trached, at baseline. Unresponsive to noxious stimuli on exam, dry mucous membranes, b/l calf wounds (bandaged) with purulent drainage, no necrosis. Broad spectrum antibiotics, IV fluids, and cultures ordered. Wound care and gen surg consult for debridement. Plan of care discussed with attending Dr. Og. Wil Howard MD PGY-2 Documentation for date of: 12/20/24 HPI History of Present Illness History of present illness: Mr. 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 failure/ Trach/ Peg, non responsive and with Quadriparesis. Pt was noted to be less alert then previously noted. Review of Systems Review of Systems ROS Unobtainable: unobtainable due to mental status and unobtainable due to medical condition Narrative Review of Systems: pt nonverbal at baseline. Past Medical History Family History OTHER FAMILY HX: unable to obtain Surgical History OTHER SURGICAL HX: R lower abdominal well healed surgical scar Exam Vital Signs Temp Pulse Resp BP Pulse Ox O2 Del Method O2 Flow Rate 100.1 F 150 H 30 H 129/64 93 L Trach Collar 12 12/20/24 13:19 12/20/24 12:30 12/20/24 12:30 12/20/24 12:30 12/20/24 12:30 12/20/24 10:50 12/20/24 08:16 Narrative Exam GENERAL: pt nonverbal, ?responsive to painful stimuli, laying in bed HEENT: Head AT/ NC. Mucous membranes very dry . PERRL NECK: Supple, no lymphadenopathy, CARDIOVASCULAR: RRR. Normal S1/S2, No m/r/g. No pitting edema of bilateral LEs. RESPIRATORY: pt has TRAch in place, on auscultation there are upper airway coarse sounds, no crackles appreciated. GASTROINTESTINAL: Abdomen soft, non tender no palpable masses. Bowel sounds present, well healed surgical incision on R lower abdomen., PEG tube in place in center of abdomen, without eyrthema no puralent drainage , some crusting around the tube. : bolivar catheter in place, draining MUSCULOSKELETAL:? No cyanosis or edema, pt is very frail, Left upper extrem is contorted in interior rotation and flexion of the wrist. NEUROLOGICAL: unable to assess, pt is quadraplegic, and nonverbal at baseline PSYCHIATRIC: not agitated SKIN: BLE posterior leg wounds with dressings in place both are 4-5cm in diameter, with puralent drainage, no evidence of necrosis. Saccral wound, dressed and clean, no puralent drainage noted. and R buttock wound with dressing in place without puralent drainage, or errythematous base. Results: Labs 12/20/24 05:45 12/20/24 05:45 Labs: Short CBC 12/20/24 Range/Units 05:45 WBC 14.2 H (3.8-10.6) Thou/mm3 Hgb 7.6 L (13.5-16.0) g/dL Hct 25.0 L (41.0-53.0) % Plt Count 315 (140-440) Thou/mm3 BMP 12/20/24 05:45 Sodium 145 Potassium 3.6 Chloride 107 Carbon Dioxide 31.0 BUN 39 H Creatinine 1.0 Glucose 108 H Calcium 11.6 H Liver Function 12/20/24 Range/Units 05:45 Total Bilirubin < 0.2 L (0.3-1.2) mg/dL AST 38 H (0-34) U/L ALT 48 (10-49) U/L Alkaline Phosphatase 295 H (46-116) U/L Albumin 3.4 L (3.5-5.0) gm/dL Urine 12/20/24 Range/Units 05:18 Urine Color Yellow (Lt Yel-Yel) Urine Clarity Clear (Clear/Hazy) Urine pH 7.5 H (5.0-7.0) Ur Specific [place] 1.019 (1.001-1.035) Urine Protein 1+ A (Neg - Trace) Urine Glucose (UA) Negative (Negative) Imaging and Cardiology Chest x-ray: Additional comments: impression, no active disease Quality Measures Quality Measures none Medications Home Medications and Allergies Allergies Allergy/AdvReac Type Severity Reaction Status Date / Time No Known Allergies Allergy Unverified 10/23/24 09:16 Visit Medications Discontinued Medications Acetaminophen (Acetaminophen Supp 650 Mg Supp) [address] X1 ONE Stop: 12/20/24 10:52 Last Admin: 12/20/24 12:23 Dose: 650 mg Sodium Chloride (Ns) 1,000 mls @ 999 mls/hr IV .Q1H1M ONE Stop: 12/20/24 11:48 Last Infusion: 12/20/24 12:34 Dose: Infused Piperacillin/Tazobactam/Dextrose (Zosyn) 3.375 gm in 50 mls @ 100 mls/hr IV X1 ONE Stop: 12/20/24 11:17 Last Infusion: 12/20/24 13:15 Dose: Infused Lactated Ringer's (Lactated Ringers) 1,000 mls @ 999 mls/hr IV .Q1H1M ONE Stop: 12/20/24 13:12 Last Infusion: 12/20/24 13:15 Dose: Infused Assessment & Plan Plan Mr. 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 failure/ Trach/ Peg, non responsive and with Quadriparesis. Pt was noted to be less alert then previously noted, admitted for c/f sepsis (suspected source of infxn are soft tissue wounds on BLE calfs) #Sepsis #Wounds with puralent drainage (BLE, Saccrum/buttock) - wound care consulted appreciat recs - consider gen surg consult for potential washout Scores: SIRS Criteria: 2 points (tachycardia, and leukocytosis) Dx - Daily CBC, CMP, - CXR- unremarkable - Bcx pending - UA +leuk esterase and +wbc, pt with bolivar catheter - wound MRSA pending - procalcitonin elevated Tx - Vanc Zosyn (12/20- - fluid resusitation with LR #PEG tube - medical oncology physician consulted, appreciate recs, regarding feeds. Chronic #elevated Liver enzymes Dispo: pt from SNF Diet: PEG tube, Dietition consuted, appreciate recs, Bowel Reg: per G tube, lactulose 10 qd VTE ppx: SCD GI ppx: per G tube lansoprazole 30mg qd Code status: DNR Case discussed with my attending Dr. Earle Milton MD PGY-1
[2024-12-20 14:27] LABS: COVID-19 Antigen (In-House) Negative (Negative)
[2024-12-20] MEDS: RINGERS LACTATED 1000 ML 1,000 ML 75 ML IV (15:22)
[2024-12-20] MEDS: VANCOMYCIN/NS 1 GM IVPB 200 ML IV (15:22)
[2024-12-20 15:25] LABS: Base Excess 6 (-3-3); HCO3 29 mEq/L (20-26); Inspired O2, VO2 Liters 5 L/min; Inspired Oxygen, FIO2 21 %; O2 Saturation 99 % (91-98); PCO2 37 mmHg (32.0-48.0); PO2 91 mmHg (83-108); pH, Arterial 7.51 (7.35-7.45)
[2024-12-20 15:35] LABS: Allen Test Performed/OK; Puncture Site Right Radial
[2024-12-20 17:20] LABS: Procalcitonin 1.49 ng/ml (0.0-0.49)
--- NOTE | 2024-12-20 20:06 | PC.NURSE ---
BRIEF AND LINEN CHANGED. ANDINO EMPTY WITH 1200ML OUTPUT.
[2024-12-21] VITALS (12 sets, daily range): BP systolic 100–125; BP diastolic 55–78; PULSE 80–116; RESP 18–53; TEMP 36.3–37.1; O2SAT 92–100; BMI 16.0
[2024-12-21] MEDS: PIPER/TAZO 3.375 GM PREMIX 3.375 GM/50 ML BAG IV ×3 (05:28→21:38)
[2024-12-21] MEDS: RINGERS LACTATED 1000 ML 1,000 ML 75 ML IV ×2 (05:29→18:41)
--- NOTE | 2024-12-21 05:52 | PC.RT ---
at 05:00 pt spo2 dropping to the low 80s, suction pt a moderate cream thin sputum suctioned, increased 11L to 100% pt reposition, spo2 improved to 94%.
[2024-12-21 06:37] LABS: Basophils # (Auto) 0.0 Thou/mm3 (0.0-0.2); Basophils % (Auto) 0 % (0-2.5); Eosinophils # (Auto) 0.1 Thou/mm3 (0.0-0.5); Eosinophils % (Auto) 1 % (0-10); Hematocrit 22.9 % (41.0-53.0); Immature Granulocytes Auto 0.04 Thou/mm3 (0.00-0.00); Lymphocytes # (Auto) 1.1 Thou/mm3 (1.0-4.8); Lymphocytes % (Auto) 10 % (10-50); Mean Corpuscular HGB Conc 31.0 g/dl (31.0-37.0); Mean Corpuscular Hemoglobin 24.4 pg (25.0-35.0); Mean Corpuscular Volume 79 fL (80-100); Monocytes # (Auto) 0.9 Thou/mm3 (0.0-0.8); Monocytes % (Auto) 8 % (0-12); Neutrophils # (Auto) 8.8 Thou/mm3 (1.8-7.7); Neutrophils % (Auto) 80 % (37-80); Nucleated Red Blood Cell # 0.00 Thou/mm3 (0.00-0.00); Nucleated Red Blood Cell % 0 /100 WBC (0); Platelet Count 276 Thou/mm3 (140-440); RDW Standard Deviation 56.8 fL (35.1-43.9); Red Blood Count 2.91 Miln/mm3 (4.50-5.90); White Blood Count 11.0 Thou/mm3 (3.8-10.6)
[2024-12-21 06:38] LABS: Hemoglobin 7.1 g/dL (13.5-16.0)
[2024-12-21 07:00] LABS: Alanine Aminotransferase 53 U/L (10-49); Albumin, Serum 3.2 gm/dL (3.5-5.0); Albumin/Globulin Ratio 0.7 (1.2-2.2); Alkaline Phosphatase 229 U/L (46-116); Anion Gap 10 (7-16); Aspartate Amino Transferase 72 U/L (0-34); BUN/Creatinine Ratio 33 Ratio (12-20); Bilirubin,Total 0.2 mg/dL (0.3-1.2); Blood Urea Nitrogen 33 mg/dL (9-23); Calcium 11.6 mg/dL (8.3-10.6); Calcium (Corrected) 12.2 mg/dL (8.5-10.1); Carbon Dioxide 27.6 mMol/L (20.0-31.0); Chloride 110 mMol/L (98-107); Creatinine (Component) 1.0 mg/dL (0.6-1.3); Estimated Creatinine Clearance 83.3 mL/min (>60); Globulin 4.3 gm/dL (2.3-3.5); Glucose 66 mg/dL (74-106); Magnesium 1.9 mg/dL (1.6-2.6); Osmolality,Calculated 299 (275-295); Phosphorous 4.4 mg/dL (2.4-5.1); Potassium 3.6 mMol/L (3.4-5.1); Sodium 148 mMol/L (136-145); Total Protein 7.5 gm/dL (5.7-8.2); eGFR > 60 See Note
--- NOTE | 2024-12-21 09:46 | PC.DIETICIAN ---
Nutrition prescription Jevity 1.5 at 68 ml/hr x 24 hrs via PEG tube by pump (goal). If no IV fluids, water flushes of 50 ml/hr (or per MD).
[2024-12-21] MEDS: ASCORBIC ACID 250 MG TABLET 500 MG GT ×2 (10:02→20:41)
[2024-12-21] MEDS: METOPROLOL TARTRATE 25 MG TABLET 100 MG GT ×2 (10:02→20:42)
[2024-12-21] MEDS: DEXTROSE 50%-WATER INJ 50 ML SYRINGE IVP (10:02)
[2024-12-21] MEDS: OSELTAMIVIR 75 MG CAPSULE PO ×2 (10:02→20:41)
[2024-12-21] MEDS: GABAPENTIN 300 MG CAPSULE GT ×3 (10:02→21:38)
[2024-12-21] MEDS: levETIRAcetam LIQD 500 MG/5 ML UDC 1000 MG GT ×2 (10:04→20:42)
[2024-12-21] MEDS: MULTIVITAMIN 15 ML UDC GT (10:04)
[2024-12-21] MEDS: VANCOMYCIN/NS 1 GM IVPB 200 ML IV ×2 (11:00→21:38)
[2024-12-21] MEDS: BACLOFEN 10 MG TABLET 20 MG GT ×2 (13:00→18:40)
--- NOTE | 2024-12-21 17:28 | PD.SURCONS ---
HPI Consult details Consult date: 12/21/24 Reason for consultation narrative: Patient was seen in consultation because of decubitus ulcer below the knee posteriorly. History of present illness: Patient is a resident subacute care and he was transferred here because of hypothermia Meds Home Medications and Allergies Allergies Allergy/AdvReac Type Severity Reaction Status Date / Time No Known Allergies Allergy Unverified 10/23/24 09:16 Exam Vital Signs Temp Pulse Resp BP Pulse Ox O2 Del Method O2 Flow Rate 98.0 F 80 28 H 100/55 L 100 Trach Collar 11 12/21/24 16:00 12/21/24 16:00 12/21/24 16:00 12/21/24 16:00 12/21/24 16:00 12/20/24 20:50 12/21/24 06:44 FiO2 100 12/21/24 06:44 Routine Extremities Exam Comments: My physical examination of the knee posteriorly revealed no evidence of necrosis. I removed the dressing patient seems to have reasonably healthy granulation tissue Assessment & Plan Additional Assessment Additional comments: Impression: Decubitus ulcer both the knees posteriorly Plan Plan: Patient does not require any debridement. I suggest that the wound care use chemical debridement like Santyl. Thank you very much
--- NOTE | 2024-12-21 20:26 | PD.RESPRO ---
Documentation for date of: 12/21/24 Subjective Subjective Interval history: Patient was seen and examined at the bedside. No acute overnight events were reported. No fever spikes were seen per chart review. Patient is on blow-by. Blood sugars were low this morning. Tube feeds were resumed. Patient was found to be flu positive therefore Tamiflu was started. Plan blood cultures negative x 24 hours. Patient most likely has dilutional anemia since he received fluids. Will continue with antibiotics. Surgery did not recommend debridement only recommended dressing changes. All labs and orders were reviewed. Exam Vital Signs Temp Pulse Resp BP Pulse Ox O2 Del Method O2 Flow Rate 97.4 F 80 35 H 102/55 L 100 Blow-by 10 12/21/24 20:00 12/21/24 20:00 12/21/24 20:00 12/21/24 20:00 12/21/24 20:00 12/21/24 20:00 12/21/24 20:00 FiO2 70 12/21/24 20:00 Narrative Exam GENERAL: pt nonverbal, ?responsive to painful stimuli, laying in bed HEENT: Head AT/ NC. Mucous membranes very dry . PERRL NECK: Supple, no lymphadenopathy, CARDIOVASCULAR: RRR. Normal S1/S2, No m/r/g. No pitting edema of bilateral LEs. RESPIRATORY: pt has TRAch in place, on auscultation there are upper airway coarse sounds, no crackles appreciated. GASTROINTESTINAL: Abdomen soft, non tender no palpable masses. Bowel sounds present, well healed surgical incision on R lower abdomen., PEG tube in place in center of abdomen, without eyrthema no puralent drainage , some crusting around the tube. : bolivar catheter in place, draining MUSCULOSKELETAL:? No cyanosis or edema, pt is very frail, Left upper extrem is contorted in interior rotation and flexion of the wrist. NEUROLOGICAL: unable to assess, pt is quadraplegic, and nonverbal at baseline PSYCHIATRIC: not agitated SKIN: BLE posterior leg wounds with dressings in place both are 4-5cm in diameter, with purulent drainage, no evidence of necrosis. Saccral wound, dressed and clean, no purulent drainage noted. and R buttock wound with dressing in place without purulent drainage, or errythematous base. Objective Labs 12/22/24 06:09 12/22/24 05:26 Labs: Laboratory Results - last 24 hr 12/21/24 06:10 WBC 11.0 H RBC 2.91 L Hgb 7.1 L Hct 22.9 L MCV 79 L MCH 24.4 L MCHC 31.0 RDW Std Deviation 56.8 H Plt Count 276 D Neut % (Auto) 80 Lymph % (Auto) 10 [place] % (Auto) 8 Eos % (Auto) 1 Baso % (Auto) 0 Neut # (Auto) 8.8 H Lymph # (Auto) 1.1 [place] # (Auto) 0.9 H Eos # (Auto) 0.1 Baso # (Auto) 0.0 Immature Gran # (Auto) 0.04 H Absolute Nucleated RBC 0.00 Immature Gran % 0 Nucleated RBC % 0 Sodium 148 H Potassium 3.6 Chloride 110 H Carbon Dioxide 27.6 Anion Gap 10 BUN 33 H Creatinine 1.0 Estim Creat Clear Calc 83.3 eGFR > 60 BUN/Creatinine Ratio 33 H Glucose 66 L Calculated Osmolality 299 H Calcium 11.6 H Corrected Calcium 12.2 H Phosphorus 4.4 Magnesium 1.9 Total Bilirubin 0.2 L AST 72 H ALT 53 H Alkaline Phosphatase 229 H D Total Protein 7.5 Albumin 3.2 L Globulin 4.3 H Albumin/Globulin Ratio 0.7 L ABG Interpretation ABG results: 12/20/24 15:15 ABG pH 7.51 H ABG pCO2 37 ABG pO2 91 ABG HCO3 29 H ABG O2 Saturation 99 H ABG Base Excess 6 H Quality Measures Quality Measures VTE prophylaxis (SCDs) Assessment & Plan Assessment Current Active Medications: Generic Name Dose Route Start Last Admin Trade Name Freq PRN Reason Stop Dose Admin Albuterol 2.5 mg 12/21/24 09:16 Albuterol Rt 2.5 Mg/0.5 Ml Nebu INH 01/20/25 09:15 Q4H PRN shortness of breath or wheezing Protocol Albuterol/Ipratropium 3 ml 12/21/24 09:16 Albuterol/Ipratropium (Duoneb) Rt [place] 3 Ml Nebu INH 01/20/25 09:15 Q2HR PRN Wheezing Protocol Ascorbic Acid 500 mg 12/21/24 09:30 12/21/24 10:02 Ascorbic Acid 250 Mg Tablet GT 01/20/25 09:29 500 mg BID RADHA Administration Atorvastatin Calcium 40 mg 12/21/24 21:00 Atorvastatin Calcium 20 Mg Tablet GT 01/20/25 20:59 HS RADHA Baclofen 20 mg 12/21/24 12:00 12/21/24 18:40 Baclofen 10 Mg Tablet GT 01/20/25 11:59 20 mg Q6HR RADHA Administration Bisacodyl 10 mg 12/21/24 09:16 Bisacodyl 10 Mg Supp OH 01/20/25 09:15 PRN PRN No BM Per Bowel Management Protocol Protocol Dextrose 25 ml 12/21/24 09:15 Dextrose 50%-Water Inj 50 Ml Syringe IV 01/20/25 09:14 Q15MIN PRN BG 50-70 responsive npo pt Dextrose 50 ml 12/21/24 09:15 Dextrose 50%-Water Inj 50 Ml Syringe IV 01/20/25 09:14 Q15MIN PRN BG <50 OR BG <70 & pt unresponsive Gabapentin 300 mg 12/21/24 09:30 12/21/24 13:02 Gabapentin 300 Mg Capsule GT 01/20/25 09:29 300 mg TID RADHA Administration Glucagon 1 mg 12/21/24 09:15 Glucagon Inj 1 Mg Vial IM Q15MIN PRN BG <70, and no IV access Piperacillin/Tazobactam/Dextrose 3.375 gm in 50 mls @ 12.5 mls/hr 12/20/24 22:00 12/21/24 13:03 Zosyn IV 12/27/24 21:59 12.5 mls/hr Q8HR RADHA Administration Lactated Ringer's 1,000 mls @ 75 mls/hr 12/20/24 14:23 12/21/24 18:41 Lactated Ringers IV 01/19/25 14:22 75 mls/hr .[id number] RADHA Administration Vancomycin/Sodium Chloride 200 mls @ 120 mls/hr 12/21/24 10:00 12/21/24 11:00 Vancomycin/Ns 1 Gm Ivpb IV 12/28/24 09:59 120 mls/hr BID@1000,2200 RADHA Administration Levetiracetam 1,000 mg 12/21/24 09:30 12/21/24 10:04 Levetiracetam Liqd 500 Mg/5 Ml Udc GT 01/20/25 09:29 1,000 mg BID RADHA Administration Metoprolol Tartrate 100 mg 12/21/24 09:30 12/21/24 10:02 Metoprolol Tartrate 25 Mg Tablet GT 01/20/25 09:29 100 mg BID RADHA Administration Midodrine 5 mg 12/21/24 09:16 Midodrine 5 Mg Tablet GT 01/20/25 09:15 TID PRN Hold for SBP>90 and DBP>50 Multivitamins/Minerals 15 ml 12/21/24 09:30 12/21/24 10:04 Multivitamin 15 Ml Udc GT 01/20/25 09:29 15 ml QDAY RADHA Administration Olanzapine 5 mg 12/21/24 09:30 12/21/24 10:02 Olanzapine 5 Mg Tablet GT 01/20/25 09:29 5 mg QDAY RADHA Administration Ondansetron HCl 4 mg 12/20/24 14:22 Ondansetron Inj 2 Mg/Ml Inj 2 Ml IVP 01/19/25 14:21 Q6HR PRN NAUSEA OR VOMITING Protocol Oseltamivir Phosphate 75 mg 12/21/24 09:45 12/21/24 10:02 Oseltamivir 75 Mg Capsule PO 12/26/24 09:44 75 mg BID RADHA Administration Pharmacy Consult 1 each 12/20/24 14:30 Vancomycin Pharmacy To Dose 1 Each Each IV 01/19/25 14:29 QDAY PRN CONSULT Pharmacy Consult 1 each 12/20/24 14:21 Pharmacy Renal Dose Adjustment 1 Ea XX 01/19/25 14:20 PRN PRN CONSULT Silver Nitrate 1 appl 12/21/24 09:16 Silver Nitrate 1 Appl Ea TOP 01/20/25 09:15 PRN PRN Wound Management Plan Mr. 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 failure/ Trach/ Peg, non responsive and with Quadriparesis. Pt was noted to be less alert then previously noted, admitted for c/f sepsis (suspected source of infxn are soft tissue wounds on BLE calfs) #Influenza A and B positive ? 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 Watts was consulted. He recommended no surgical debridement and only dressing changes - Vanc and Zosyn (12/20- - fluid resusitation #Hypernatremia ? 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 #elevated Liver enzymes -Monitor liver enzymes #Quadriparesis with spastic contractures -Resumed home medications #History of seizures -Resumed patient's home medications including Keppra #Chronic anemia -PRBC if hemoglobin drops below 7 #Chronic respiratory failure with trach on blow-by - RT following -Frequent suctioning -Monitor for signs of distress #PEG tube - Jevity 1.5 per dietitian recommendations with water flushes #Hypercalcemia likely related to immobilization Health maintenance Dispo: pt from SNF Diet: Jevity 1.5, IV fluids Bowel Reg: per G tube, lactulose 10 qd VTE ppx: SCD GI ppx: per G tube lansoprazole 30mg qd Code status: DNR Patient was seen and discussed with attending physician, Dr. Joana Beasley MD, PGY 3 Attending Provider Attestation/Addendum I, Vianey Bernard DO, attest that I was physically present for the martinez portions of the service and evaluated the patient with the resident and I reviewed and discussed the case with the resident and agree with the resident's findings and plans of care as documented above Patient seen and eval this a.m. Patient was found to be flu positive and started on Tamiflu today. He appears dehydrated. Continue with IV fluids and antibiotics at this time. Patient does have several wounds. Surgeon was consulted to evaluate wounds and possible debridement. Recommends wound care. Thin and minimal secretions noted on exam. Patient remains on blowby. Will f/u with cultures to further de-escalate abx coverage
[2024-12-21] MEDS: ATORVASTATIN CALCIUM 20 MG TABLET 40 MG GT (20:42)
[2024-12-21] MEDS: DEXTROSE 5%-WATER 1,000 ML 50 ML IV (20:43)
[2024-12-22] VITALS (11 sets, daily range): BP systolic 95–115; BP diastolic 57–85; PULSE 76–109; RESP 20–31; TEMP 36.1–36.9; O2SAT 98–100; BMI 16.2
[2024-12-22] MEDS: BACLOFEN 10 MG TABLET 20 MG GT ×5 (00:14→23:15)
[2024-12-22] MEDS: GABAPENTIN 300 MG CAPSULE GT ×3 (06:18→21:20)
[2024-12-22 06:19] LABS: Alanine Aminotransferase 43 U/L (10-49); Albumin, Serum 3.1 gm/dL (3.5-5.0); Albumin/Globulin Ratio 0.7 (1.2-2.2); Alkaline Phosphatase 248 U/L (46-116); Anion Gap 14 (7-16); Aspartate Amino Transferase 56 U/L (0-34); BUN/Creatinine Ratio 30 Ratio (12-20); Bilirubin,Total < 0.2 mg/dL (0.3-1.2); Blood Urea Nitrogen 27 mg/dL (9-23); Calcium 10.5 mg/dL (8.3-10.6); Calcium (Corrected) 11.2 mg/dL (8.5-10.1); Carbon Dioxide 24.7 mMol/L (20.0-31.0); Chloride 110 mMol/L (98-107); Creatinine (Component) 0.9 mg/dL (0.6-1.3); Estimated Creatinine Clearance 92.5 mL/min (>60); Globulin 4.2 gm/dL (2.3-3.5); Glucose 118 mg/dL (74-106); Magnesium 1.9 mg/dL (1.6-2.6); Osmolality,Calculated 302 (275-295); Phosphorous 3.6 mg/dL (2.4-5.1); Potassium 3.4 mMol/L (3.4-5.1); Sodium 149 mMol/L (136-145); Total Protein 7.3 gm/dL (5.7-8.2); eGFR > 60 See Note
[2024-12-22] MEDS: PIPER/TAZO 3.375 GM PREMIX 3.375 GM/50 ML BAG IV ×3 (06:19→21:20)
[2024-12-22 06:20] LABS: Basophils # (Auto) 0.1 Thou/mm3 (0.0-0.2); Basophils % (Auto) 1 % (0-2.5); Eosinophils # (Auto) 0.0 Thou/mm3 (0.0-0.5); Eosinophils % (Auto) 0 % (0-10); Hematocrit 31.2 % (41.0-53.0); Hemoglobin 10.8 g/dL (13.5-16.0); Immature Granulocytes Auto 0.16 Thou/mm3 (0.00-0.00); Lymphocytes # (Auto) 0.5 Thou/mm3 (1.0-4.8); Lymphocytes % (Auto) 3 % (10-50); Mean Corpuscular HGB Conc 34.6 g/dl (31.0-37.0); Mean Corpuscular Hemoglobin 28.8 pg (25.0-35.0); Mean Corpuscular Volume 83 fL (80-100); Monocytes # (Auto) 1.1 Thou/mm3 (0.0-0.8); Monocytes % (Auto) 8 % (0-12); Neutrophils # (Auto) 12.2 Thou/mm3 (1.8-7.7); Neutrophils % (Auto) 87 % (37-80); Nucleated Red Blood Cell # 0.02 Thou/mm3 (0.00-0.00); Nucleated Red Blood Cell % 0 /100 WBC (0); Platelet Count 82 Thou/mm3 (140-440); RDW Standard Deviation 44.7 fL (35.1-43.9); Red Blood Count 3.75 Miln/mm3 (4.50-5.90); White Blood Count 14.1 Thou/mm3 (3.8-10.6)
--- NOTE | 2024-12-22 08:11 | PD.RESPRO ---
Documentation for date of: 12/22/24 Subjective Subjective Interval history: No acute events overnight Exam Vital Signs Temp Pulse Resp BP Pulse Ox O2 Del Method O2 Flow Rate 97.0 F 77 24 H 99/58 L 100 Blow-by 10 12/22/24 04:00 12/22/24 04:00 12/22/24 04:00 12/22/24 04:00 12/22/24 04:00 12/22/24 04:00 12/22/24 04:00 FiO2 50 12/22/24 04:00 Narrative Exam GENERAL: pt nonverbal, laying in bed with eyes opening spontaneously HEENT: Head AT/ NC. Mucous membranes very dry, severely cracked lips . PERRL NECK: Supple, no lymphadenopathy, CARDIOVASCULAR: RRR. Normal S1/S2, No m/r/g. No pitting edema of bilateral LEs. RESPIRATORY: pt has Trach in place, midline with some sputum, on auscultation there are upper airway coarse sounds, no crackles appreciated. GASTROINTESTINAL: Abdomen soft, non tender no palpable masses. Bowel sounds present, well healed surgical incision on R lower abdomen., PEG tube in place in center of abdomen, without eyrthema no puralent drainage , some crusting around the tube. : bolivar catheter in place, draining MUSCULOSKELETAL:? No cyanosis or edema, pt is very frail, Left upper extrem is contorted in interior rotation and flexion of the wrist. NEUROLOGICAL: unable to assess, pt is quadraplegic, and nonverbal at baseline, more awake than noted on prior exam, with eyes opening spontaneously PSYCHIATRIC: not agitated SKIN: BLE posterior leg wounds with dressings in place both are 4-5cm in diameter, with purulent drainage, no evidence of necrosis. Saccral wound, dressed and clean, no purulent drainage noted. and R buttock wound with dressing in place without purulent drainage, or errythematous base. Objective Labs 12/23/24 06:50 12/23/24 05:49 Labs: Laboratory Results - last 24 hr 12/22/24 12/22/24 05:26 06:09 WBC 14.1 H RBC 3.75 L Hgb 10.8 L D Hct 31.2 L MCV 83 MCH 28.8 MCHC 34.6 RDW Std Deviation 44.7 H Plt Count 82 L D Neut % (Auto) 87 H Lymph % (Auto) 3 L [place] % (Auto) 8 Eos % (Auto) 0 Baso % (Auto) 1 Neut # (Auto) 12.2 H Lymph # (Auto) 0.5 L [place] # (Auto) 1.1 H Eos # (Auto) 0.0 Baso # (Auto) 0.1 Immature Gran # (Auto) 0.16 H Absolute Nucleated RBC 0.02 H Immature Gran % 1 H Nucleated RBC % 0 Sodium 149 H Potassium 3.4 Chloride 110 H Carbon Dioxide 24.7 Anion Gap 14 BUN 27 H Creatinine 0.9 Estim Creat Clear Calc 92.5 eGFR > 60 BUN/Creatinine Ratio 30 H Glucose 118 H D Calculated Osmolality 302 H Calcium 10.5 Corrected Calcium 11.2 H Phosphorus 3.6 Magnesium 1.9 Total Bilirubin < 0.2 L AST 56 H ALT 43 Alkaline Phosphatase 248 H Total Protein 7.3 Albumin 3.1 L Globulin 4.2 H Albumin/Globulin Ratio 0.7 L ABG Interpretation ABG results: 12/20/24 15:15 ABG pH 7.51 H ABG pCO2 37 ABG pO2 91 ABG HCO3 29 H ABG O2 Saturation 99 H ABG Base Excess 6 H Quality Measures Quality Measures VTE prophylaxis (SCDs) Assessment & Plan Assessment Current Active Medications: Generic Name Dose Route Start Last Admin Trade Name Freq PRN Reason Stop Dose Admin Albuterol 2.5 mg 12/21/24 09:16 Albuterol Rt 2.5 Mg/0.5 Ml [facility] 01/20/25 09:15 Q4H PRN shortness of breath or wheezing Protocol Albuterol/Ipratropium 3 ml 12/21/24 09:16 Albuterol/Ipratropium (Duoneb) Rt [place] 3 Ml [facility] 01/20/25 09:15 Q2HR PRN Wheezing Protocol Ascorbic Acid 500 mg 12/21/24 09:30 12/21/24 20:41 Ascorbic Acid 250 Mg Tablet 01/20/25 09:29 500 mg BID RADHA Administration Atorvastatin Calcium 40 mg 12/21/24 21:00 12/21/24 20:42 Atorvastatin Calcium 20 Mg Tablet 01/20/25 20:59 40 mg HS RADHA Administration Baclofen 20 mg 12/21/24 12:00 12/22/24 06:19 Baclofen 10 Mg Tablet 01/20/25 11:59 20 mg Q6HR RADHA Administration Bisacodyl 10 mg 12/21/24 09:16 Bisacodyl 10 Mg Supp [place] 01/20/25 09:15 PRN PRN No BM Per Bowel Management Protocol Protocol Dextrose 25 ml 12/21/24 09:15 Dextrose 50%-Water Inj 50 Ml Syringe IV 01/20/25 09:14 Q15MIN PRN BG 50-70 responsive npo pt Dextrose 50 ml 12/21/24 09:15 Dextrose 50%-Water Inj 50 Ml Syringe IV 01/20/25 09:14 Q15MIN PRN BG <50 OR BG <70 & pt unresponsive Gabapentin 300 mg 12/21/24 09:30 12/22/24 06:18 Gabapentin 300 Mg Capsule GT 01/20/25 09:29 300 mg TID RADHA Administration Glucagon 1 mg 12/21/24 09:15 Glucagon Inj 1 Mg Vial IM Q15MIN PRN BG <70, and no IV access Piperacillin/Tazobactam/Dextrose 3.375 gm in 50 mls @ 12.5 mls/hr 12/20/24 22:00 12/22/24 06:19 Zosyn IV 12/27/24 21:59 12.5 mls/hr Q8HR RADHA Administration Vancomycin/Sodium Chloride 200 mls @ 120 mls/hr 12/21/24 10:00 12/21/24 21:38 Vancomycin/Ns 1 Gm Ivpb IV 12/28/24 09:59 120 mls/hr BID@1000,2200 RADHA Administration Dextrose 1,000 mls @ 100 mls/hr 12/22/24 08:09 D5w IV 01/21/25 08:08 .Q10H RADHA Magnesium Sulfate 2 gm in 50 mls @ 25 mls/hr 12/22/24 08:10 Magnesium Sulfate Ivpb IV 12/22/24 10:09 X1 ONE Levetiracetam 1,000 mg 12/21/24 09:30 12/21/24 20:42 Levetiracetam Liqd 500 Mg/5 Ml Udc GT 01/20/25 09:29 1,000 mg BID RADHA Administration Metoprolol Tartrate 100 mg 12/21/24 09:30 12/21/24 20:42 Metoprolol Tartrate 25 Mg Tablet GT 01/20/25 09:29 100 mg BID RADHA Administration Midodrine 5 mg 12/21/24 09:16 Midodrine 5 Mg Tablet GT 01/20/25 09:15 TID PRN Hold for SBP>90 and DBP>50 Multivitamins/Minerals 15 ml 12/21/24 09:30 12/21/24 10:04 Multivitamin 15 Ml Udc GT 01/20/25 09:29 15 ml QDAY RADHA Administration Olanzapine 5 mg 12/21/24 09:30 12/21/24 10:02 Olanzapine 5 Mg Tablet GT 01/20/25 09:29 5 mg QDAY RADHA Administration Ondansetron HCl 4 mg 12/20/24 14:22 Ondansetron Inj 2 Mg/Ml Inj 2 Ml IVP 01/19/25 14:21 Q6HR PRN NAUSEA OR VOMITING Protocol Oseltamivir Phosphate 75 mg 12/21/24 09:45 12/21/24 20:41 Oseltamivir 75 Mg Capsule PO 12/26/24 09:44 75 mg BID RADHA Administration Pharmacy Consult 1 each 12/20/24 14:30 Vancomycin Pharmacy To Dose 1 Each Each IV 01/19/25 14:29 QDAY PRN CONSULT Pharmacy Consult 1 each 12/20/24 14:21 Pharmacy Renal Dose Adjustment 1 Ea XX 01/19/25 14:20 PRN PRN CONSULT Silver Nitrate 1 appl 12/21/24 09:16 Silver Nitrate 1 Appl Ea TOP 01/20/25 09:15 PRN PRN Wound Management Plan Mr. 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 failure/ Trach/ Peg, non responsive and with Quadriparesis. Pt was noted to be less alert then previously noted, admitted for c/f sepsis (suspected source of infxn are soft tissue wounds on BLE calfs), Gen surg consulted (no I&D indicated at this time, cont abx and wound dressing changes), pt positive for influenza a and b, cont Pip/Tazo. 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 Watts was consulted. He recommended no surgical debridement and only dressing changes - d/c vanc, given MRSA nares + (colonized) - Cont Zosyn (12/20- - #Hypokalemia K: 2.8, repleat with KCl as needed -repeat BMP with K at 2.8 - KCl 40 per G tube, and 20 meq per IV #Hypernatremia ? Started D5W at 100 cc/h #Influenza A and B positive ? 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 #Hypothermia, resolved - Hypothermia resolved - Warm blankets changed around head and body q4h #elevated Liver enzymes -Monitor liver enzymes #Quadriparesis with spastic contractures -Resumed home medications #History of seizures -Resumed patient's home medications including Keppra #Chronic anemia -PRBC if hemoglobin drops below 7 #Chronic respiratory failure with trach on blow-by - RT following -Frequent suctioning -Monitor for signs of distress #PEG tube - Jevity 1.5 per dietitian recommendations with water flushes #Hypercalcemia likely related to immobilization Health maintenance Dispo: pt from SNF Diet: Jevity 1.5, IV fluids Bowel Reg: per G tube, lactulose 10 qd VTE ppx: SCD GI ppx: per G tube lansoprazole 30mg qd Code status: DNR Case discussed with my attending Dr. Joana Milton MD PGY-1 Attending Provider Attestation/Addendum Vianey Marcelo DO, attest that I was physically present for the martinez portions of the service and evaluated the patient with the resident and I reviewed and discussed the case with the resident and agree with the resident's findings and plans of care as documented above Patient seen and eval this a.m. Patient appears more alert today. He is noted to have very thick secretions from his tracheostomy. Noted to have scattered rhonchi on exam. He continues to be on blow-by of 10 L which are his settings at baseline. Patient otherwise has been afebrile. No acute events overnight. Patient appears to be dehydrated. Will continue with IV fluids with D5W and free water flushes. Will follow-up with sodium checks. Will order chest PT due to thick secretions.
[2024-12-22 10:08] LABS: Vancomycin,Trough 7.6 mcg/mL (5.0-10.0)
[2024-12-22] MEDS: Magnesium Sulfate 2 GM Ivpb 2 GM/50 ML BAG IV (10:55)
[2024-12-22] MEDS: MULTIVITAMIN 15 ML UDC GT (10:56)
[2024-12-22] MEDS: levETIRAcetam LIQD 500 MG/5 ML UDC 1000 MG GT ×2 (10:56→20:26)
[2024-12-22] MEDS: ASCORBIC ACID 250 MG TABLET 500 MG GT ×2 (10:57→20:26)
[2024-12-22] MEDS: METOPROLOL TARTRATE 25 MG TABLET 100 MG GT ×2 (10:57→20:22)
[2024-12-22] MEDS: OSELTAMIVIR 75 MG CAPSULE PO ×2 (10:57→20:22)
[2024-12-22 12:40] LABS: Anion Gap 11 (7-16); BUN/Creatinine Ratio 33 Ratio (12-20); Blood Urea Nitrogen 26 mg/dL (9-23); Calcium 9.9 mg/dL (8.3-10.6); Carbon Dioxide 28.6 mMol/L (20.0-31.0); Chloride 107 mMol/L (98-107); Creatinine (Component) 0.8 mg/dL (0.6-1.3); Estimated Creatinine Clearance 105.8 mL/min (>60); Glucose 137 mg/dL (74-106); Osmolality,Calculated 299 (275-295); Potassium 2.8 mMol/L (3.4-5.1); Sodium 147 mMol/L (136-145); eGFR > 60 See Note
[2024-12-22] MEDS: DEXTROSE 5%-WATER 1,000 ML 100 ML IV ×2 (14:02→21:27)
[2024-12-22 14:33] LABS: Potassium 2.8 mMol/L (3.4-5.1)
[2024-12-22] MEDS: POTASSIUM CHLORIDE 10% 20 MEQ/15 ML UDC 40 MEQ GT (14:36)
[2024-12-22] MEDS: POTASSIUM CHL 10 mEq IVPB 10 MEQ/100 ML BAG 100 MEQ IV ×4 (14:36→17:32)
[2024-12-22] MEDS: ATORVASTATIN CALCIUM 20 MG TABLET 40 MG GT (20:29)
[2024-12-23] VITALS (21 sets, daily range): BP systolic 96–128; BP diastolic 56–82; PULSE 61–130; RESP 18–30; TEMP 36.1–38.9; O2SAT 94–100
[2024-12-23] MEDS: ACETAMINOPHEN SOL 325 MG/10 ML UDC 650 MG GT (00:15)
[2024-12-23] MEDS: HYDROcodone/APAP 5/325 TABLET 1 TAB GT (00:57)
[2024-12-23] MEDS: PIPER/TAZO 3.375 GM PREMIX 3.375 GM/50 ML BAG IV ×3 (06:05→21:17)
[2024-12-23] MEDS: GABAPENTIN 300 MG CAPSULE GT ×3 (06:05→21:20)
[2024-12-23] MEDS: BACLOFEN 10 MG TABLET 20 MG GT ×4 (06:05→23:55)
[2024-12-23 06:15] LABS: Basophils # (Auto) 0.0 Thou/mm3 (0.0-0.2); Basophils % (Auto) 0 % (0-2.5); Eosinophils # (Auto) 0.2 Thou/mm3 (0.0-0.5); Eosinophils % (Auto) 2 % (0-10); Hematocrit 20.6 % (41.0-53.0); Immature Granulocytes Auto 0.04 Thou/mm3 (0.00-0.00); Lymphocytes # (Auto) 1.6 Thou/mm3 (1.0-4.8); Lymphocytes % (Auto) 16 % (10-50); Mean Corpuscular HGB Conc 31.6 g/dl (31.0-37.0); Mean Corpuscular Hemoglobin 24.2 pg (25.0-35.0); Mean Corpuscular Volume 77 fL (80-100); Monocytes # (Auto) 1.1 Thou/mm3 (0.0-0.8); Monocytes % (Auto) 11 % (0-12); Neutrophils # (Auto) 6.9 Thou/mm3 (1.8-7.7); Neutrophils % (Auto) 70 % (37-80); Nucleated Red Blood Cell # 0.00 Thou/mm3 (0.00-0.00); Nucleated Red Blood Cell % 0 /100 WBC (0); Platelet Count 294 Thou/mm3 (140-440); RDW Standard Deviation 54.4 fL (35.1-43.9); Red Blood Count 2.69 Miln/mm3 (4.50-5.90); White Blood Count 9.8 Thou/mm3 (3.8-10.6)
[2024-12-23 06:18] LABS: Hemoglobin 6.5 g/dL (13.5-16.0)
[2024-12-23 06:46] LABS: Path Review Blood Smear Sent to Pathologist
[2024-12-23 06:54] LABS: Alanine Aminotransferase 40 U/L (10-49); Albumin, Serum 3.1 gm/dL (3.5-5.0); Albumin/Globulin Ratio 0.7 (1.2-2.2); Alkaline Phosphatase 208 U/L (46-116); Anion Gap 11 (7-16); Aspartate Amino Transferase 40 U/L (0-34); BUN/Creatinine Ratio 19 Ratio (12-20); Bilirubin,Total < 0.2 mg/dL (0.3-1.2); Blood Urea Nitrogen 17 mg/dL (9-23); Calcium 9.8 mg/dL (8.3-10.6); Calcium (Corrected) 10.5 mg/dL (8.5-10.1); Carbon Dioxide 26.7 mMol/L (20.0-31.0); Chloride 107 mMol/L (98-107); Creatinine (Component) 0.9 mg/dL (0.6-1.3); Estimated Creatinine Clearance 94.0 mL/min (>60); Globulin 4.2 gm/dL (2.3-3.5); Glucose 123 mg/dL (74-106); Magnesium 1.9 mg/dL (1.6-2.6); Osmolality,Calculated 291 (275-295); Phosphorous 3.3 mg/dL (2.4-5.1); Potassium 3.1 mMol/L (3.4-5.1); Sodium 145 mMol/L (136-145); Total Protein 7.3 gm/dL (5.7-8.2); eGFR > 60 See Note
[2024-12-23 07:32] LABS: Hematocrit 19.6 % (41.0-53.0)
[2024-12-23 07:34] LABS: Hemoglobin 6.3 g/dL (13.5-16.0)
[2024-12-23] MEDS: DEXTROSE 5%-WATER 1,000 ML 100 ML IV ×2 (07:41→17:42)
[2024-12-23] MEDS: POTASSIUM CHLORIDE 10% 20 MEQ/15 ML UDC 40 MEQ GT (08:01)
[2024-12-23] MEDS: ASCORBIC ACID 250 MG TABLET 500 MG GT ×2 (08:07→21:19)
[2024-12-23] MEDS: levETIRAcetam LIQD 500 MG/5 ML UDC 1000 MG GT ×2 (08:08→21:17)
[2024-12-23] MEDS: OSELTAMIVIR 75 MG CAPSULE PO ×2 (08:08→21:19)
[2024-12-23] MEDS: MULTIVITAMIN 15 ML UDC GT (08:08)
[2024-12-23] MEDS: METOPROLOL TARTRATE 25 MG TABLET 100 MG GT ×2 (08:08→21:19)
--- NOTE | 2024-12-23 09:41 | PC.SS ---
This is 29-year-old, single male who presented to the ED due to suffering from low temperature, low blood pressure. Assessment was completed with patient's mother, Sara via telephone call. SW introduced self, role and reason for call. Per Sara, patient resides at [facility]. Patient is bedbound, breathing ventilator dependent. In case of an emergency, Sara is his medical decision or father, Nasir ([phone]). When medically clear, patient will return to [facility]. Plan of care: continuing with IV antibiotics. Discharge plan: return to [facility]. Next of kin: Sara Carmona ([phone]) or Nasir ([phone]).
[2024-12-23] MEDS: MUPIROCIN OINT 2% 15 GM TUBE TOP ×3 (10:37→21:17)
--- NOTE | 2024-12-23 15:16 | PD.RESPRO ---
Documentation for date of: 12/23/24 Subjective Subjective Interval history: Overnight: Patient had fever of 102, resolved with tyelenol. Patient seen and examined at bedside, spontaneous eye opening. Blood cultures negative x48 hours. Patient had drop in Hg overnight, 2 units transfused. Suspect bleeding around trach site due to frequent suctioning. Occult stool pending. Exam Vital Signs Temp Pulse Resp BP Pulse Ox O2 Del Method O2 Flow Rate 97.6 F 95 20 108/64 100 Blow-by 10 12/23/24 15:08 12/23/24 15:08 12/23/24 15:08 12/23/24 15:08 12/23/24 15:08 12/23/24 12:00 12/23/24 15:08 FiO2 40 12/23/24 06:39 Narrative Exam GENERAL: pt nonverbal, laying in bed with eyes opening spontaneously HEENT: Head AT/ NC. Mucous membranes very dry, severely cracked lips . PERRL NECK: Supple, no lymphadenopathy, CARDIOVASCULAR: RRR. Normal S1/S2, No m/r/g. No pitting edema of bilateral LEs. RESPIRATORY: pt has Trach in place, midline with some sputum, on auscultation there are upper airway coarse sounds, no crackles appreciated. Bloody sputum from trach. GASTROINTESTINAL: Abdomen soft, non tender no palpable masses. Bowel sounds present, well healed surgical incision on R lower abdomen., PEG tube in place in center of abdomen, without eyrthema no puralent drainage , some crusting around the tube. : bolivar catheter in place, draining MUSCULOSKELETAL:? No cyanosis or edema, pt is very frail, Left upper extremity is contorted in interior rotation and flexion of the wrist. NEUROLOGICAL: unable to assess, pt is quadraplegic, and nonverbal at baseline, more awake than noted on prior exam, with eyes opening spontaneously PSYCHIATRIC: not agitated SKIN: BLE posterior leg wounds with dressings in place both are 4-5cm in diameter, without purulent drainage, no evidence of necrosis. Sacral wound, dressed and clean, no purulent drainage noted. and R buttock wound with dressing in place without purulent drainage, or errythematous base. Objective Labs 12/24/24 05:52 12/24/24 05:52 Labs: Laboratory Results - last 24 hr 12/23/24 12/23/24 12/23/24 05:49 06:50 08:10 WBC 9.8 RBC 2.69 L Hgb 6.5 L* D 6.3 L* Hct 20.6 L* D 19.6 L* MCV 77 L MCH 24.2 L MCHC 31.6 RDW Std Deviation 54.4 H Plt Count 294 D Neut % (Auto) 70 Lymph % (Auto) 16 [place] % (Auto) 11 Eos % (Auto) 2 Baso % (Auto) 0 Neut # (Auto) 6.9 Lymph # (Auto) 1.6 [place] # (Auto) 1.1 H Eos # (Auto) 0.2 Baso # (Auto) 0.0 Immature Gran # (Auto) 0.04 H Absolute Nucleated RBC 0.00 Immature Gran % 0 Nucleated RBC % 0 Smear Path Review Sent to Pathologist Sodium 145 Potassium 3.1 L Chloride 107 Carbon Dioxide 26.7 Anion Gap 11 BUN 17 Creatinine 0.9 Estim Creat Clear Calc 94.0 eGFR > 60 BUN/Creatinine Ratio 19 Glucose 123 H Calculated Osmolality 291 Calcium 9.8 Corrected Calcium 10.5 H Phosphorus 3.3 Magnesium 1.9 Total Bilirubin < 0.2 L AST 40 H ALT 40 Alkaline Phosphatase 208 H D Total Protein 7.3 Albumin 3.1 L Globulin 4.2 H Albumin/Globulin Ratio 0.7 L Blood Type O Positive Antibody Screen NEGATIVE Crossmatch See Detail Blood Bank Wristband ID Yes ABG Interpretation ABG results: 12/20/24 15:15 ABG pH 7.51 H ABG pCO2 37 ABG pO2 91 ABG HCO3 29 H ABG O2 Saturation 99 H ABG Base Excess 6 H Quality Measures Quality Measures VTE prophylaxis (SCDs) Assessment & Plan Assessment Current Active Medications: Generic Name Dose Route Start Last Admin Trade Name Freq PRN Reason Stop Dose Admin Acetaminophen 650 mg 12/23/24 10:28 Acetaminophen [place] 325 Mg/10 Ml Udc GT 01/22/25 00:05 Q6HR PRN Pain 1-3 Or Fever > 100.4 Hydrocodone Bitart/Acetaminophen 1 tab 12/23/24 00:38 12/23/24 00:57 Hydrocodone/Apap 5/325 Tablet GT 12/28/24 00:37 1 tab Q6HR PRN Administration PAIN SCALE 4-10(Mod-Sev Albuterol 2.5 mg 12/21/24 09:16 Albuterol Rt 2.5 Mg/0.5 Ml Neb[facility] 01/20/25 09:15 Q4H PRN shortness of breath or wheezing Protocol Albuterol/Ipratropium 3 ml 12/21/24 09:16 Albuterol/Ipratropium (Duoneb) Rt [place] 3 Ml [facility] 01/20/25 09:15 Q2HR PRN Wheezing Protocol Ascorbic Acid 500 mg 12/21/24 09:30 12/23/24 08:07 Ascorbic Acid 250 Mg Tablet GT 01/20/25 09:29 500 mg BID RADHA Administration Atorvastatin Calcium 40 mg 12/21/24 21:00 12/22/24 20:29 Atorvastatin Calcium 20 Mg Tablet GT 01/20/25 20:59 40 mg HS RADHA Administration Baclofen 20 mg 12/21/24 12:00 12/23/24 11:55 Baclofen 10 Mg Tablet GT 01/20/25 11:59 20 mg Q6HR RADHA Administration Bisacodyl 10 mg 12/21/24 09:16 Bisacodyl 10 Mg Supp [place] 01/20/25 09:15 PRN PRN No BM Per Bowel Management Protocol Protocol Dextrose 25 ml 12/21/24 09:15 Dextrose 50%-Water Inj 50 Ml Syringe IV 01/20/25 09:14 Q15MIN PRN BG 50-70 responsive npo pt Dextrose 50 ml 12/21/24 09:15 Dextrose 50%-Water Inj 50 Ml Syringe IV 01/20/25 09:14 Q15MIN PRN BG <50 OR BG <70 & pt unresponsive Gabapentin 300 mg 12/21/24 09:30 12/23/24 14:28 Gabapentin 300 Mg Capsule GT 01/20/25 09:29 300 mg TID RADHA Administration Glucagon 1 mg 12/21/24 09:15 Glucagon Inj 1 Mg Vial IM Q15MIN PRN BG <70, and no IV access Piperacillin/Tazobactam/Dextrose 3.375 gm in 50 mls @ 12.5 mls/hr 12/20/24 22:00 12/23/24 14:29 Zosyn IV 12/27/24 21:59 12.5 mls/hr Q8HR RADHA Administration Dextrose 1,000 mls @ 100 mls/hr 12/22/24 08:09 12/23/24 07:41 D5w IV 01/21/25 08:08 100 mls/hr .Q10H RADHA Administration Levetiracetam 1,000 mg 12/21/24 09:30 12/23/24 08:08 Levetiracetam Liqd 500 Mg/5 Ml Udc GT 01/20/25 09:29 1,000 mg BID RADHA Administration Metoprolol Tartrate 100 mg 12/21/24 09:30 12/23/24 08:08 Metoprolol Tartrate 25 Mg Tablet GT 01/20/25 09:29 100 mg BID RADHA Administration Midodrine 5 mg 12/21/24 09:16 Midodrine 5 Mg Tablet GT 01/20/25 09:15 TID PRN Hold for SBP>90 and DBP>50 Multivitamins/Minerals 15 ml 12/21/24 09:30 12/23/24 08:08 Multivitamin 15 Ml Udc GT 01/20/25 09:29 15 ml QDAY RADHA Administration Mupirocin 0 gm 12/23/24 07:30 12/23/24 14:29 Mupirocin Oint 2% 15 Gm Tube TOP 12/30/24 07:29 15 gm TID RADHA Administration Olanzapine 5 mg 12/21/24 09:30 12/23/24 08:07 Olanzapine 5 Mg Tablet GT 01/20/25 09:29 5 mg QDAY RADHA Administration Ondansetron HCl 4 mg 12/20/24 14:22 Ondansetron Inj 2 Mg/Ml Inj 2 Ml IVP 01/19/25 14:21 Q6HR PRN NAUSEA OR VOMITING Protocol Oseltamivir Phosphate 75 mg 12/21/24 09:45 12/23/24 08:08 Oseltamivir 75 Mg Capsule PO 12/26/24 09:44 75 mg BID RADHA Administration Pharmacy Consult 1 each 12/20/24 14:21 Pharmacy Renal Dose Adjustment 1 Ea XX 01/19/25 14:20 PRN PRN CONSULT Silver Nitrate 1 appl 12/21/24 09:16 Silver Nitrate 1 Appl Ea TOP 01/20/25 09:15 PRN PRN Wound Management Plan Mr. 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 failure/ Trach/ Peg, non responsive and with Quadriparesis. Pt was noted to be less alert then previously noted, admitted for c/f sepsis (suspected source of infxn are soft tissue wounds on BLE calfs), Gen surg consulted (no I&D indicated at this time, cont abx and wound dressing changes), pt positive for influenza a and b, cont Pip/Tazo. 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 Watts was consulted. He recommended no surgical debridement and only dressing changes - d/c vanc, given MRSA nares + (colonized) - Cont Zosyn (12/20- #acute on chronic anemia Chronically low hemoglobin HG dropped to 6.3, 2 units transfused. Bloody sputum noted from trach site -monitor -post transfusion H&H -stool occult blood pending #Hypokalemia Patient has low potassium, repleated -monitor, repleat as needed #Hypernatremia ? Started D5W at 100 cc/h #Influenza A and B positive ? 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 #Hypothermia, resolved - Hypothermia resolved - Warm blankets changed around head and body q4h #elevated Liver enzymes -Monitor liver enzymes #Quadriparesis with spastic contractures -Resumed home medications #History of seizures -Resumed patient's home medications including Keppra #Chronic respiratory failure with trach on blow-by - RT following -Frequent suctioning -Monitor for signs of distress #PEG tube - Jevity 1.5 per dietitian recommendations with water flushes #Hypercalcemia likely related to immobilization - monitor, consider calcium binders Health maintenance Dispo: pt from SNF Diet: Jevity 1.5, IV fluids Bowel Reg: per G tube, lactulose 10 qd VTE ppx: SCD GI ppx: per G tube lansoprazole 30mg qd Code status: DNR Plan of care discussed with attending Dr. Bernard. Wil Howard MD PGY-2 Attending Provider Attestation/Addendum I, Vianey Bernard DO, attest that I was physically present for the martinez portions of the service and evaluated the patient with the resident and I reviewed and discussed the case with the resident and agree with the resident's findings and plans of care as documented above Patient seen and eval this a.m. Patient had fevers overnight and was noted to have anemia of 6.5. Patient had 2 bowel movements this morning that was reportedly brown. Upon evaluation, patient noted to have some blood-tinged output from his blow-by. Secretions are thick and copious. Per RT at bedside, patient started to have some blood-tinged sputum once she started doing manual chest PT. Suspect that patient has had frequent suctioning due to thick secretions that may lead to trauma of the trach resulting in bleeding. Will transfuse 2 units of PRBCs and follow-up posttransfusion H&H. Stool occult was ordered, but bleeding likely secondary from trach trauma. Continue with antibiotics and monitor bleeding closely.
[2024-12-23 20:13] LABS: Hematocrit 24.7 % (41.0-53.0); Hemoglobin 8.1 g/dL (13.5-16.0)
[2024-12-23] MEDS: ATORVASTATIN CALCIUM 20 MG TABLET 40 MG GT (21:20)
--- NOTE | 2024-12-23 22:08 | PC.NURSE ---
Report received pt arrived to room 352 via bed
[2024-12-24] VITALS (17 sets, daily range): BP systolic 108–128; BP diastolic 60–77; PULSE 79–108; RESP 18–25; TEMP 36.1–38.3; O2SAT 92–100; BMI 16.2
[2024-12-24] MEDS: DEXTROSE 5%-WATER 1,000 ML 100 ML IV (03:58)
[2024-12-24] MEDS: ACETAMINOPHEN SOL 325 MG/10 ML UDC 650 MG GT (04:12)
[2024-12-24] MEDS: BACLOFEN 10 MG TABLET 20 MG GT ×4 (05:51→23:25)
[2024-12-24] MEDS: PIPER/TAZO 3.375 GM PREMIX 3.375 GM/50 ML BAG IV ×3 (05:51→22:11)
[2024-12-24] MEDS: GABAPENTIN 300 MG CAPSULE GT ×3 (05:51→21:01)
[2024-12-24 06:11] LABS: OBS Card Lot # 23001; OBS Developer Lot # 23002; OBS Performed By TORRJ3; OBS QC OK? Yes
[2024-12-24] MEDS: MUPIROCIN OINT 2% 15 GM TUBE TOP ×3 (06:15→21:00)
[2024-12-24 06:18] LABS: Occult Blood, Stool Negative (Negative)
[2024-12-24 06:24] LABS: Basophils # (Auto) 0.0 Thou/mm3 (0.0-0.2); Basophils % (Auto) 0 % (0-2.5); Eosinophils # (Auto) 0.3 Thou/mm3 (0.0-0.5); Eosinophils % (Auto) 3 % (0-10); Hematocrit 27.5 % (41.0-53.0); Immature Granulocytes Auto 0.06 Thou/mm3 (0.00-0.00); Lymphocytes # (Auto) 1.3 Thou/mm3 (1.0-4.8); Lymphocytes % (Auto) 13 % (10-50); Mean Corpuscular HGB Conc 31.6 g/dl (31.0-37.0); Mean Corpuscular Hemoglobin 25.1 pg (25.0-35.0); Mean Corpuscular Volume 79 fL (80-100); Monocytes # (Auto) 0.8 Thou/mm3 (0.0-0.8); Monocytes % (Auto) 8 % (0-12); Neutrophils # (Auto) 7.6 Thou/mm3 (1.8-7.7); Neutrophils % (Auto) 75 % (37-80); Nucleated Red Blood Cell # 0.00 Thou/mm3 (0.00-0.00); Nucleated Red Blood Cell % 0 /100 WBC (0); Platelet Count 310 Thou/mm3 (140-440); RDW Standard Deviation 54.4 fL (35.1-43.9); Red Blood Count 3.47 Miln/mm3 (4.50-5.90); White Blood Count 10.2 Thou/mm3 (3.8-10.6)
[2024-12-24 06:32] LABS: Hemoglobin 8.7 g/dL (13.5-16.0)
[2024-12-24 07:06] LABS: Alanine Aminotransferase 34 U/L (10-49); Albumin, Serum 3.1 gm/dL (3.5-5.0); Albumin/Globulin Ratio 0.8 (1.2-2.2); Alkaline Phosphatase 182 U/L (46-116); Anion Gap 13 (7-16); Aspartate Amino Transferase 33 U/L (0-34); BUN/Creatinine Ratio 16 Ratio (12-20); Bilirubin,Total 0.2 mg/dL (0.3-1.2); Blood Urea Nitrogen 13 mg/dL (9-23); Calcium 9.7 mg/dL (8.3-10.6); Calcium (Corrected) 10.4 mg/dL (8.5-10.1); Carbon Dioxide 24.4 mMol/L (20.0-31.0); Chloride 105 mMol/L (98-107); Creatinine (Component) 0.8 mg/dL (0.6-1.3); Estimated Creatinine Clearance 105.8 mL/min (>60); Globulin 4.1 gm/dL (2.3-3.5); Glucose 127 mg/dL (74-106); Magnesium 1.7 mg/dL (1.6-2.6); Osmolality,Calculated 285 (275-295); Phosphorous 3.6 mg/dL (2.4-5.1); Potassium 3.1 mMol/L (3.4-5.1); Sodium 142 mMol/L (136-145); Total Protein 7.2 gm/dL (5.7-8.2); eGFR > 60 See Note
--- NOTE | 2024-12-24 07:29 | PD.RESPRO ---
Documentation for date of: 12/24/24 Subjective Subjective Interval history: - s/p 2 Units PRBC overnight, post transfusion H/H appropriately bumped. Hgb Stable 8.7 - mildly febrile to 100.9 overnight, no APAP given Exam Vital Signs Temp Pulse Resp BP Pulse Ox O2 Del Method O2 Flow Rate 98.0 F 108 H 25 H 114/60 95 Blow-by 8 12/24/24 05:12 12/24/24 05:00 12/24/24 04:00 12/24/24 04:00 12/24/24 04:00 12/24/24 04:00 12/23/24 22:15 FiO2 35 12/23/24 22:15 Vitals over the past 24hours were reviewed: Temp: mildly febrile to 100.9 HR: 100s BP: wnl RR: trach Narrative Exam GENERAL: pt nonverbal, laying in bed, eyes not opening to trap squeeze, nor opening spontaneously HEENT: Head AT/ NC. Lips are less cracked than on intake . PERRL NECK: trach midline, no bleeding noted around trach CARDIOVASCULAR: Sinus tach, with regular rhythm. Normal S1/S2, No m/r/g. No pitting edema of bilateral LEs. RESPIRATORY: pt has Trach in place, midline with some sputum, on auscultation there are upper airway coarse sounds, no crackles appreciated. GASTROINTESTINAL: Abdomen soft, non tender no palpable masses. Bowel sounds present, well healed surgical incision on R lower abdomen., PEG tube in place in center of abdomen, without eyrthema no puralent drainage , some crusting around the tube. : bolivar catheter in place (last changed 12/20) draining MUSCULOSKELETAL:? No cyanosis or edema, pt is very frail, Left upper extremity is contorted in interior rotation and flexion of the wrist. NEUROLOGICAL: unable to assess, pt is quadraplegic, and nonverbal at baseline, more awake than noted on prior exam, with eyes opening spontaneously PSYCHIATRIC: not agitated SKIN: BLE posterior leg wounds with dressings in place both are 4-5cm in diameter, without purulent drainage, no evidence of necrosis. Sacral wound, dressed and clean, no purulent drainage noted. and R buttock wound with dressing in place without purulent drainage, or errythematous base. Objective Labs 12/25/24 05:24 12/25/24 05:24 Labs: Laboratory Results - last 24 hr 12/23/24 12/23/24 12/23/24 06:50 08:10 18:35 WBC RBC Hgb 6.3 L* Hct 19.6 L* MCV MCH MCHC RDW Std Deviation Plt Count Neut % (Auto) Lymph % (Auto) Lucas % (Auto) Eos % (Auto) Baso % (Auto) Neut # (Auto) Lymph # (Auto) Lucas # (Auto) Eos # (Auto) Baso # (Auto) Immature Gran # (Auto) Absolute Nucleated RBC Immature Gran % Nucleated RBC % Sodium Potassium Chloride Carbon Dioxide Anion Gap BUN Creatinine Estim Creat Clear Calc eGFR BUN/Creatinine Ratio Glucose Calculated Osmolality Calcium Corrected Calcium Phosphorus Magnesium Total Bilirubin AST ALT Alkaline Phosphatase Total Protein Albumin Globulin Albumin/Globulin Ratio Stool Occult Blood Negative Blood Type O Positive Antibody Screen NEGATIVE Crossmatch See Detail Blood Bank Wristband ID Yes 12/23/24 12/24/24 19:56 05:52 WBC 10.2 RBC 3.47 L Hgb 8.1 L D 8.7 L Hct 24.7 L 27.5 L MCV 79 L MCH 25.1 MCHC 31.6 RDW Std Deviation 54.4 H Plt Count 310 Neut % (Auto) 75 Lymph % (Auto) 13 Lucas % (Auto) 8 Eos % (Auto) 3 Baso % (Auto) 0 Neut # (Auto) 7.6 Lymph # (Auto) 1.3 Lucas # (Auto) 0.8 Eos # (Auto) 0.3 Baso # (Auto) 0.0 Immature Gran # (Auto) 0.06 H Absolute Nucleated RBC 0.00 Immature Gran % 1 H Nucleated RBC % 0 Sodium 142 Potassium 3.1 L Chloride 105 Carbon Dioxide 24.4 Anion Gap 13 BUN 13 Creatinine 0.8 Estim Creat Clear Calc 105.8 eGFR > 60 BUN/Creatinine Ratio 16 Glucose 127 H Calculated Osmolality 285 Calcium 9.7 Corrected Calcium 10.4 H Phosphorus 3.6 Magnesium 1.7 Total Bilirubin 0.2 L AST 33 ALT 34 Alkaline Phosphatase 182 H D Total Protein 7.2 Albumin 3.1 L Globulin 4.1 H Albumin/Globulin Ratio 0.8 L Stool Occult Blood Blood Type Antibody Screen Crossmatch Blood Bank Wristband ID ABG Interpretation ABG results: 12/20/24 15:15 ABG pH 7.51 H ABG pCO2 37 ABG pO2 91 ABG HCO3 29 H ABG O2 Saturation 99 H ABG Base Excess 6 H Quality Measures Quality Measures VTE prophylaxis (SCDs) Assessment & Plan Assessment Current Active Medications: Generic Name Dose Route Start Last Admin Trade Name Freq PRN Reason Stop Dose Admin Acetaminophen 650 mg 12/23/24 10:28 12/24/24 04:12 Acetaminophen [place] 325 Mg/10 Ml Udc GT 01/22/25 00:05 650 mg Q6HR PRN Administration Pain 1-3 Or Fever > 100.4 Hydrocodone Bitart/Acetaminophen 1 tab 12/23/24 00:38 12/23/24 00:57 Hydrocodone/Apap 5/325 Tablet GT 12/28/24 00:37 1 tab Q6HR PRN Administration PAIN SCALE 4-10(Mod-Sev Albuterol 2.5 mg 12/21/24 09:16 Albuterol Rt 2.5 Mg/0.5 Ml Nebu INH 01/20/25 09:15 Q4H PRN shortness of breath or wheezing Protocol Albuterol/Ipratropium 3 ml 12/21/24 09:16 Albuterol/Ipratropium (Duoneb) Rt [place] 3 Ml Nebu INH 01/20/25 09:15 Q2HR PRN Wheezing Protocol Ascorbic Acid 500 mg 12/21/24 09:30 12/23/24 21:19 Ascorbic Acid 250 Mg Tablet GT 01/20/25 09:29 500 mg BID RADHA Administration Atorvastatin Calcium 40 mg 12/21/24 21:00 12/23/24 21:20 Atorvastatin Calcium 20 Mg Tablet GT 01/20/25 20:59 40 mg HS RADHA Administration Baclofen 20 mg 12/21/24 12:00 12/24/24 05:51 Baclofen 10 Mg Tablet GT 01/20/25 11:59 20 mg Q6HR RADHA Administration Bisacodyl 10 mg 12/21/24 09:16 Bisacodyl 10 Mg Supp SC 01/20/25 09:15 PRN PRN No BM Per Bowel Management Protocol Protocol Dextrose 25 ml 12/21/24 09:15 Dextrose 50%-Water Inj 50 Ml Syringe IV 01/20/25 09:14 Q15MIN PRN BG 50-70 responsive npo pt Dextrose 50 ml 12/21/24 09:15 Dextrose 50%-Water Inj 50 Ml Syringe IV 01/20/25 09:14 Q15MIN PRN BG <50 OR BG <70 & pt unresponsive Gabapentin 300 mg 12/21/24 09:30 12/24/24 05:51 Gabapentin 300 Mg Capsule GT 01/20/25 09:29 300 mg TID RADHA Administration Glucagon 1 mg 12/21/24 09:15 Glucagon Inj 1 Mg Vial IM Q15MIN PRN BG <70, and no IV access Piperacillin/Tazobactam/Dextrose 3.375 gm in 50 mls @ 12.5 mls/hr 12/20/24 22:00 12/24/24 05:51 Zosyn IV 12/27/24 21:59 12.5 mls/hr Q8HR RADHA Administration Dextrose 1,000 mls @ 100 mls/hr 12/22/24 08:09 12/24/24 03:58 D5w IV 01/21/25 08:08 100 mls/hr .Q10H RADHA Administration Levetiracetam 1,000 mg 12/21/24 09:30 12/23/24 21:17 Levetiracetam Liqd 500 Mg/5 Ml Udc GT 01/20/25 09:29 1,000 mg BID RADHA Administration Metoprolol Tartrate 100 mg 12/21/24 09:30 12/23/24 21:19 Metoprolol Tartrate 25 Mg Tablet GT 01/20/25 09:29 100 mg BID RADHA Administration Midodrine 5 mg 12/21/24 09:16 Midodrine 5 Mg Tablet GT 01/20/25 09:15 TID PRN Hold for SBP>90 and DBP>50 Multivitamins/Minerals 15 ml 12/21/24 09:30 12/23/24 08:08 Multivitamin 15 Ml Udc GT 01/20/25 09:29 15 ml QDAY ARDHA Administration Mupirocin 0 gm 12/23/24 07:30 12/24/24 06:15 Mupirocin Oint 2% 15 Gm Tube TOP 12/30/24 07:29 1 appl TID RADHA Administration Olanzapine 5 mg 12/21/24 09:30 12/23/24 08:07 Olanzapine 5 Mg Tablet GT 01/20/25 09:29 5 mg QDAY RADHA Administration Ondansetron HCl 4 mg 12/20/24 14:22 Ondansetron Inj 2 Mg/Ml Inj 2 Ml IVP 01/19/25 14:21 Q6HR PRN NAUSEA OR VOMITING Protocol Oseltamivir Phosphate 75 mg 12/21/24 09:45 12/23/24 21:19 Oseltamivir 75 Mg Capsule PO 12/26/24 09:44 75 mg BID RADHA Administration Pharmacy Consult 1 each 12/20/24 14:21 Pharmacy Renal Dose Adjustment 1 Ea XX 01/19/25 14:20 PRN PRN CONSULT Silver Nitrate 1 appl 12/21/24 09:16 Silver Nitrate 1 Appl Ea TOP 01/20/25 09:15 PRN PRN Wound Management Plan Mr. 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 failure/ Trach/ Peg, non responsive and with Quadriparesis. Pt was noted to be less alert then previously noted, admitted for c/f sepsis (suspected source of infxn are soft tissue wounds on BLE calfs), Gen surg consulted (no I&D indicated at this time, cont abx and wound dressing changes), pt positive for influenza a and b, and concern for superimposed bacterial PNA. cont Pip/Tazo. #Possible superimposed bacterial Pneumonia #Influenza A and B positive Given pts recent mild grade fevers, and sputum, considering possible super imposed bacterial pneumonia. Start doxy, CTM. ? START: Doxycycline 100 mg IV BID - Tamiflu 75 mg twice daily - Droplet precautions #Sepsis likely related to #Wounds with puralent drainage (BLE, Saccrum/buttock) #Bedbound with chronic vegetative state due to cocaine induced vasculitis stressors trach and PEG WBC now plateauing at around 10 CTM Scores: SIRS Criteria: 2 points (tachycardia, and leukocytosis) Dx - Daily CBC, CMP, - CXR- unremarkable - Bcx ngtd @48 hrs, MRSA nares + - UA +leuk esterase and +wbc, pt with bolivar catheter - procalcitonin elevated Tx -Surgeon, Dr. Watts was consulted. He recommended no surgical debridement and only dressing changes - wound care consulted: will see pt today. - d/c vanc, given MRSA nares + (colonized) - Cont Zosyn (12/20- #acute on chronic anemia Chronically low hemoglobin Hgb stable after 2x PRBC transfusion 12/23 -CTM -transfuse if < 7 -stool occult blood negative. #Electrolyte Disturbances #Hypokalemia Patient has low potassium, repleated -monitor, repleat as needed #Hypernatremia ? continue D5W at 100 cc/h #Bacteuria pt with indwelling bolivar, changed 12/20. Ucx on intake growing Pseudomonas. 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 -Monitor for signs of distress #PEG tube - Jevity 1.5 per dietitian recommendations with water flushes #Hypercalcemia likely related to immobilization - monitor, consider calcium binders Health maintenance Dispo: pt from SNF Diet: Jevity 1.5, IV fluids Bowel Reg: per G tube, lactulose 10 qd VTE ppx: SCD GI ppx: per G tube lansoprazole 30mg qd Code status: DNR Case discussed with my attending Dr. Joana Milton MD PGY-1 Attending Provider Attestation/Addendum I, Vianey Bernard, , attest that I was physically present for the martinez portions of the service and evaluated the patient with the resident and I reviewed and discussed the case with the resident and agree with the resident's findings and plans of care as documented above Patient seen and evaluated this AM. Patient had fevers overnight and continues to have thick secretions, but no blood tinged sputum noted. Continue with IV fluids. H/H otherwise stable.
[2024-12-24] MEDS: POTASSIUM CHLORIDE 10% 20 MEQ/15 ML UDC GT (09:12)
[2024-12-24] MEDS: MULTIVITAMIN 15 ML UDC GT (09:12)
[2024-12-24] MEDS: levETIRAcetam LIQD 500 MG/5 ML UDC 1000 MG GT ×2 (09:12→20:58)
[2024-12-24] MEDS: Magnesium Sulfate 2 GM Ivpb 2 GM/50 ML BAG IV (09:12)
[2024-12-24] MEDS: METOPROLOL TARTRATE 25 MG TABLET 100 MG GT ×2 (09:13→20:59)
[2024-12-24] MEDS: ASCORBIC ACID 250 MG TABLET 500 MG GT ×2 (09:13→20:59)
[2024-12-24] MEDS: OSELTAMIVIR 75 MG CAPSULE PO ×2 (09:13→20:59)
--- NOTE | 2024-12-24 09:56 | PC.NURSE ---
MD AT BEDSIDE ASSESS PT THIS MORNING, POC DISCUSSED.
--- NOTE | 2024-12-24 11:07 | PC.NURSE ---
DR. WISEMAN MADE AWARE PT IS ORDER 100 ML/HR D5NC AND 50 ML/HR WATER FLUSH, WILL PUT IN NEW ORDERS.
[2024-12-24] MEDS: guaiFENesin SYRUP 200 MG/10 ML UDC 100 MG GT ×3 (11:19→20:58)
[2024-12-24] MEDS: DOXYCYCLINE INJ 100 MG in SODIUM CHLORIDE 0.9% (POP) 100 ML IV ×2 (11:19→20:59)
[2024-12-24] MEDS: RINGERS LACTATED 1000 ML 1,000 ML 75 ML IV (12:31)
--- NOTE | 2024-12-24 15:26 | PC.SS ---
SS follow up note; Patient is getting IV ABX. Possible discharge back to Subacute if fever's don't continue.
[2024-12-24] MEDS: DEXTROSE 5%-LACTATED RINGERS 1,000 ML 75 ML IV (18:53)
[2024-12-24] MEDS: Silvasorb Gel 45 ML TUBE TOP (20:59)
[2024-12-24] MEDS: ATORVASTATIN CALCIUM 20 MG TABLET 40 MG GT (21:00)
[2024-12-25] VITALS (11 sets, daily range): BP systolic 100–122; BP diastolic 60–78; PULSE 67–109; RESP 15–22; TEMP 36.2–36.3; O2SAT 98–100
[2024-12-25] MEDS: PIPER/TAZO 3.375 GM PREMIX 3.375 GM/50 ML BAG IV ×3 (05:50→22:04)
[2024-12-25] MEDS: guaiFENesin SYRUP 200 MG/10 ML UDC 100 MG GT ×4 (05:50→22:04)
[2024-12-25] MEDS: BACLOFEN 10 MG TABLET 20 MG GT ×4 (05:50→22:59)
[2024-12-25] MEDS: GABAPENTIN 300 MG CAPSULE GT ×3 (05:50→22:05)
[2024-12-25] MEDS: MUPIROCIN OINT 2% 15 GM TUBE TOP ×2 (05:59→13:49)
[2024-12-25] MEDS: DEXTROSE 5%-LACTATED RINGERS 1,000 ML 75 ML IV ×2 (06:00→19:28)
[2024-12-25 06:21] LABS: Basophils # (Auto) 0.1 Thou/mm3 (0.0-0.2); Basophils % (Auto) 1 % (0-2.5); Eosinophils # (Auto) 0.4 Thou/mm3 (0.0-0.5); Eosinophils % (Auto) 3 % (0-10); Hematocrit 25.6 % (41.0-53.0); Immature Granulocytes Auto 0.05 Thou/mm3 (0.00-0.00); Lymphocytes # (Auto) 1.4 Thou/mm3 (1.0-4.8); Lymphocytes % (Auto) 13 % (10-50); Mean Corpuscular HGB Conc 32.4 g/dl (31.0-37.0); Mean Corpuscular Hemoglobin 25.1 pg (25.0-35.0); Mean Corpuscular Volume 77 fL (80-100); Monocytes # (Auto) 1.0 Thou/mm3 (0.0-0.8); Monocytes % (Auto) 10 % (0-12); Neutrophils # (Auto) 7.6 Thou/mm3 (1.8-7.7); Neutrophils % (Auto) 73 % (37-80); Nucleated Red Blood Cell # 0.00 Thou/mm3 (0.00-0.00); Nucleated Red Blood Cell % 0 /100 WBC (0); Platelet Count 313 Thou/mm3 (140-440); RDW Standard Deviation 54.0 fL (35.1-43.9); Red Blood Count 3.31 Miln/mm3 (4.50-5.90); White Blood Count 10.5 Thou/mm3 (3.8-10.6)
[2024-12-25 06:23] LABS: Hemoglobin 8.3 g/dL (13.5-16.0)
[2024-12-25 06:51] LABS: Alanine Aminotransferase 29 U/L (10-49); Albumin, Serum 3.0 gm/dL (3.5-5.0); Albumin/Globulin Ratio 0.8 (1.2-2.2); Alkaline Phosphatase 166 U/L (46-116); Anion Gap 10 (7-16); Aspartate Amino Transferase 24 U/L (0-34); BUN/Creatinine Ratio 20 Ratio (12-20); Bilirubin,Total < 0.2 mg/dL (0.3-1.2); Blood Urea Nitrogen 14 mg/dL (9-23); Calcium 9.5 mg/dL (8.3-10.6); Calcium (Corrected) 10.3 mg/dL (8.5-10.1); Carbon Dioxide 25.9 mMol/L (20.0-31.0); Chloride 108 mMol/L (98-107); Creatinine (Component) 0.7 mg/dL (0.6-1.3); Estimated Creatinine Clearance 131.4 mL/min (>60); Globulin 4.0 gm/dL (2.3-3.5); Glucose 110 mg/dL (74-106); Magnesium 1.7 mg/dL (1.6-2.6); Osmolality,Calculated 288 (275-295); Phosphorous 4.1 mg/dL (2.4-5.1); Potassium 3.2 mMol/L (3.4-5.1); Sodium 144 mMol/L (136-145); Total Protein 7.0 gm/dL (5.7-8.2); eGFR > 60 See Note
[2024-12-25] MEDS: levETIRAcetam LIQD 500 MG/5 ML UDC 1000 MG GT ×2 (08:09→22:05)
[2024-12-25] MEDS: Magnesium Sulfate 2 GM Ivpb 2 GM/50 ML BAG IV (08:09)
[2024-12-25] MEDS: POTASSIUM CHL 10 mEq IVPB 10 MEQ/100 ML BAG 100 MEQ IV ×2 (08:09→09:18)
[2024-12-25] MEDS: OSELTAMIVIR 75 MG CAPSULE PO ×2 (08:10→22:05)
[2024-12-25] MEDS: MULTIVITAMIN 15 ML UDC GT (08:10)
[2024-12-25] MEDS: ASCORBIC ACID 250 MG TABLET 500 MG GT ×2 (08:10→22:05)
[2024-12-25] MEDS: METOPROLOL TARTRATE 25 MG TABLET 100 MG GT ×2 (08:11→22:05)
[2024-12-25] MEDS: DOXYCYCLINE INJ 100 MG in SODIUM CHLORIDE 0.9% (POP) 100 ML IV (09:17)
--- NOTE | 2024-12-25 10:48 | ESPR_ITS ---
<Statement entered by Wil Howadr MD - 12/25/24 16:28> Patient seen and examined at bedside, no acute overnight events. I discussed and supervised with the dietary internship physician who took care of this patient. I personally saw and examined the patient. I agree with most of the assessment and plan. Patient opens eyes spontaneously, appears comfortable. Will complete course of Tamiflu/doxycycline tomorrow, likely discharge. Plan of care discussed with attending Dr. Bernard. Wil Howard MD PGY-2 Documentation for date of: 12/25/24 Subjective Subjective Interval history: No acute events overnight pt had just recieved Chest PT this morning blood tinged sputum in trach Exam Vital Signs Temp Pulse Resp BP Pulse Ox O2 Del Method O2 Flow Rate 97.2 F 74 18 122/78 99 Trach Collar 8 12/25/24 08:00 12/25/24 08:22 12/25/24 08:22 12/25/24 08:11 12/25/24 08:22 12/25/24 08:00 12/25/24 08:22 FiO2 30 12/25/24 08:22 Vitals over the past 24hours were reviewed: Temp: Afebrile HR: wnl BP: 100-110/60-70s RR:satting well on bipap trach Narrative Exam GENERAL: pt nonverbal, laying in bed, eyes opening spontaneously HEENT: Head AT/ NC. Lips are less cracked than on intake, more moisturized. NECK: trach midline, no bleeding noted around trach, some blood tinged sputum in the trach tube CARDIOVASCULAR: regular rate regular rhythm. Normal S1/S2, No m/r/g. No pitting edema of bilateral LEs, SCDs not on. RESPIRATORY: pt has Trach in place, midline with some blood tinged sputum, on auscultation there are upper airway coarse sounds, no crackles appreciated. GASTROINTESTINAL: Abdomen soft, non tender no palpable masses. Bowel sounds present, well healed surgical incision on R lower abdomen., PEG tube in place in center of abdomen, without eyrthema no puralent drainage , some crusting around the tube. : bolivar catheter in place (last changed 12/20) draining MUSCULOSKELETAL:? No cyanosis or edema, pt is very frail, Left upper extremity is contorted in interior rotation and flexion of the wrist. NEUROLOGICAL: unable to assess, pt is quadraplegic, and nonverbal at baseline with eyes opening spontaneously PSYCHIATRIC: not agitated SKIN: BLE posterior leg wounds with dressings in place both are 4-5cm in diameter, without purulent drainage, no evidence of necrosis. Sacral wound, dressed and clean, no purulent drainage noted. and R buttock wound with dressing in place without purulent drainage, or errythematous base. Objective Labs 12/26/24 05:31 12/26/24 05:31 Labs: Laboratory Results - last 24 hr 12/25/24 05:24 WBC 10.5 RBC 3.31 L Hgb 8.3 L Hct 25.6 L MCV 77 L MCH 25.1 MCHC 32.4 RDW Std Deviation 54.0 H Plt Count 313 Neut % (Auto) 73 Lymph % (Auto) 13 Haakon % (Auto) 10 Eos % (Auto) 3 Baso % (Auto) 1 Neut # (Auto) 7.6 Lymph # (Auto) 1.4 Haakon # (Auto) 1.0 H Eos # (Auto) 0.4 Baso # (Auto) 0.1 Immature Gran # (Auto) 0.05 H Absolute Nucleated RBC 0.00 Immature Gran % 1 H Nucleated RBC % 0 Sodium 144 Potassium 3.2 L Chloride 108 H Carbon Dioxide 25.9 Anion Gap 10 BUN 14 Creatinine 0.7 Estim Creat Clear Calc 131.4 eGFR > 60 BUN/Creatinine Ratio 20 Glucose 110 H Calculated Osmolality 288 Calcium 9.5 Corrected Calcium 10.3 H Phosphorus 4.1 Magnesium 1.7 Total Bilirubin < 0.2 L AST 24 ALT 29 Alkaline Phosphatase 166 H Total Protein 7.0 Albumin 3.0 L Globulin 4.0 H Albumin/Globulin Ratio 0.8 L ABG Interpretation ABG results: 12/20/24 15:15 ABG pH 7.51 H ABG pCO2 37 ABG pO2 91 ABG HCO3 29 H ABG O2 Saturation 99 H ABG Base Excess 6 H Quality Measures Quality Measures VTE prophylaxis (SCDs) Assessment & Plan Assessment Current Active Medications: Generic Name Dose Route Start Last Admin Trade Name Freq PRN Reason Stop Dose Admin Acetaminophen 650 mg 12/23/24 10:28 12/24/24 04:12 Acetaminophen [place] 325 Mg/10 Ml Udc GT 01/22/25 00:05 650 mg Q6HR PRN Administration Pain 1-3 Or Fever > 100.4 Hydrocodone Bitart/Acetaminophen 1 tab 12/23/24 00:38 12/23/24 00:57 Hydrocodone/Apap 5/325 Tablet GT 12/28/24 00:37 1 tab Q6HR PRN Administration PAIN SCALE 4-10(Mod-Sev Albuterol 2.5 mg 12/21/24 09:16 Albuterol Rt 2.5 Mg/0.5 Ml Nebu INH 01/20/25 09:15 Q4H PRN shortness of breath or wheezing Protocol Albuterol/Ipratropium 3 ml 12/21/24 09:16 Albuterol/Ipratropium (Duoneb) Rt [place] 3 Ml Nebu INH 01/20/25 09:15 Q2HR PRN Wheezing Protocol Ascorbic Acid 500 mg 12/21/24 09:30 12/25/24 08:10 Ascorbic Acid 250 Mg Tablet GT 01/20/25 09:29 500 mg BID RADHA Administration Atorvastatin Calcium 40 mg 12/21/24 21:00 12/24/24 21:00 Atorvastatin Calcium 20 Mg Tablet GT 01/20/25 20:59 40 mg HS RADHA Administration Baclofen 20 mg 12/21/24 12:00 12/25/24 05:50 Baclofen 10 Mg Tablet GT 01/20/25 11:59 20 mg Q6HR RADHA Administration Bisacodyl 10 mg 12/21/24 09:16 [address]ac[address] 01/20/25 09:15 PRN PRN No BM Per Bowel Management Protocol Protocol Dextrose 25 ml 12/21/24 09:15 Dextrose 50%-Water Inj 50 Ml Syringe IV 01/20/25 09:14 Q15MIN PRN BG 50-70 responsive npo pt Dextrose 50 ml 12/21/24 09:15 Dextrose 50%-Water Inj 50 Ml Syringe IV 01/20/25 09:14 Q15MIN PRN BG <50 OR BG <70 & pt unresponsive Gabapentin 300 mg 12/21/24 09:30 12/25/24 05:50 Gabapentin 300 Mg Capsule GT 01/20/25 09:29 300 mg TID RADHA Administration Glucagon 1 mg 12/21/24 09:15 Glucagon Inj 1 Mg Vial IM Q15MIN PRN BG <70, and no IV access Guaifenesin 100 mg 12/24/24 12:00 12/25/24 05:50 Guaifenesin Syrup 200 Mg/10 Ml Udc GT 01/23/25 11:59 100 mg QID RADHA Administration Protocol Piperacillin/Tazobactam/Dextrose 3.375 gm in 50 mls @ 12.5 mls/hr 12/20/24 22:00 12/25/24 05:50 Zosyn IV 12/27/24 21:59 12.5 mls/hr Q8HR RADHA Administration Doxycycline Hyclate 100 mg/ 100 mls @ 100 mls/hr 12/24/24 10:30 12/25/24 09:17 Sodium Chloride IV 12/31/24 10:29 100 mls/hr BID RADHA Administration Dextrose/Lactated Ringer's 1,000 mls @ 75 mls/hr 12/24/24 18:45 12/25/24 06:00 D5-Lr IV 01/23/25 18:44 75 mls/hr .[id number] RADHA Administration Levetiracetam 1,000 mg 12/21/24 09:30 12/25/24 08:09 Levetiracetam Liqd 500 Mg/5 Ml Udc GT 01/20/25 09:29 1,000 mg BID RADHA Administration Metoprolol Tartrate 100 mg 12/21/24 09:30 12/25/24 08:11 Metoprolol Tartrate 25 Mg Tablet GT 01/20/25 09:29 100 mg BID RADHA Administration Midodrine 5 mg 12/21/24 09:16 Midodrine 5 Mg Tablet GT 01/20/25 09:15 TID PRN Hold for SBP>90 and DBP>50 Multivitamins/Minerals 15 ml 12/21/24 09:30 12/25/24 08:10 Multivitamin 15 Ml Udc GT 01/20/25 09:29 15 ml QDAY RADHA Administration Mupirocin 0 gm 12/23/24 07:30 12/25/24 05:59 Mupirocin Oint 2% 15 Gm Tube TOP 12/30/24 07:29 1 appl TID RADHA Administration Olanzapine 5 mg 12/21/24 09:30 12/25/24 08:10 Olanzapine 5 Mg Tablet GT 01/20/25 09:29 5 mg QDAY RADHA Administration Ondansetron HCl 4 mg 12/20/24 14:22 Ondansetron Inj 2 Mg/Ml Inj 2 Ml IVP 01/19/25 14:21 Q6HR PRN NAUSEA OR VOMITING Protocol Oseltamivir Phosphate 75 mg 12/21/24 09:45 12/25/24 08:10 Oseltamivir 75 Mg Capsule PO 12/26/24 09:44 75 mg BID RADHA Administration Pharmacy Consult 1 each 12/20/24 14:21 Pharmacy Renal Dose Adjustment 1 Ea XX 01/19/25 14:20 PRN PRN CONSULT Silver Nitrate 1 appl 12/21/24 09:16 Silver Nitrate 1 Appl Ea TOP 01/20/25 09:15 PRN PRN Wound Management Plan Mr. 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 failure/ Trach/ Peg, non responsive and with Quadriparesis. Pt was noted to be less alert then previously noted, admitted for c/f sepsis (suspected source of infxn are soft tissue wounds on BLE calfs), Gen surg consulted (no I&D indicated at this time, cont abx and wound dressing changes), pt positive for influenza a and b, and concern for superimposed bacterial PNA. Discontinue zosyn, cont doxy per GT tube, planned for discharge tomorrow (administer doxy dose prior to discharging to acute care) . #Sepsis likely related to #Possible superimposed bacterial Pneumonia #Influenza A and B positive Given pts recent mild grade fevers, and sputum, considering possible super imposed bacterial pneumonia. Start doxy, CTM. ? cont doxycycline 100 mg per GT BID (transitioned from IV to GT on 12/25) (12/24- 12/26) - Tamiflu 75 mg twice daily - Droplet precautions #Wounds with puralent drainage (BLE, Saccrum/buttock) #Bedbound with chronic vegetative state due to cocaine induced vasculitis stressors trach and PEG WBC wnl, Gen surg consulted, signed off, surg debridement not indicated. wound care consulted. Scores: SIRS Criteria: 2 points (tachycardia, and leukocytosis) Dx - Daily CBC, CMP, - CXR- unremarkable - Bcx ngtd @48 hrs, MRSA nares + - UA +leuk esterase and +wbc, pt with bolivar catheter - procalcitonin elevated Tx -Surgeon, Dr. Watts was consulted. He recommended no surgical debridement and only dressing changes - wound care consulted appreciate wound care. - d/c vanc, given MRSA nares + (colonized) - d/c Zosyn (12/20- 12/25) #acute on chronic anemia Chronically low hemoglobin Hgb stable after 2x PRBC transfusion 12/23 -CTM -transfuse if < 7 -stool occult blood negative. #Electrolyte Disturbances #Hypokalemia replete as needed - CTM #Hypernatremia ? continue D5W at 100 cc/h #Bacteuria pt with indwelling bolivar, changed 12/20. Ucx on intake growing Pseudomonas. 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 -Frequent suctioning, caution for too much suctioning causing trach bleeding. -Monitor for signs of distress #PEG tube - Jevity 1.5 per dietitian recommendations with water flushes #Hypercalcemia likely related to immobilization - monitor, consider calcium binders Health maintenance Dispo: pt from SNF Diet: Jevity 1.5, IV fluids Bowel Reg: per G tube, lactulose 10 qd VTE ppx: SCD GI ppx: per G tube lansoprazole 30mg qd Code status: DNR Case discussed with my attending Dr. Joana Milton MD PGY-1 Attending Provider Attestation/Addendum Vianey Marcelo, , attest that I was physically present for the martinez portions of the service and evaluated the patient with the resident and I reviewed and discussed the case with the resident and agree with the resident's findings and plans of care as documented above Patient seen and eval this a.m. No fevers overnight. Mild blood-tinged sputum noted in his tracheostomy. He continues to have some coarse breath sounds. But no changes with blow-by settings. Patient will complete his Tamiflu and antibiotics tomorrow and can be discharged back to subacute following completion of his antibiotics. Will hold off on any further chest PT due to blood tinged sputum. Continue with current management otherwise. Anticipate discharge in the next 24 hours.
[2024-12-25] MEDS: ATORVASTATIN CALCIUM 20 MG TABLET 40 MG GT (22:05)
[2024-12-25] MEDS: DOXYCYCLINE 100 MG TABLET GT (22:06)
[2024-12-25] MEDS: Silvasorb Gel 45 ML TUBE TOP (22:43)
[2024-12-26] VITALS: BP 120/86; PULSE 90; PULSE 94; RESP 14; TEMP 36.2; O2SAT 100
[2024-12-26 04:00] VITALS: BP 129/80; PULSE 100; PULSE 104; RESP 19; TEMP 36.6; O2SAT 100
[2024-12-26] MEDS: PIPER/TAZO 3.375 GM PREMIX 3.375 GM/50 ML BAG IV (06:00)
[2024-12-26] MEDS: guaiFENesin SYRUP 200 MG/10 ML UDC 100 MG GT ×2 (06:01→11:35)
[2024-12-26] MEDS: GABAPENTIN 300 MG CAPSULE GT (06:01)
[2024-12-26] MEDS: BACLOFEN 10 MG TABLET 20 MG GT ×2 (06:01→11:35)
[2024-12-26 06:23] LABS: Basophils # (Auto) 0.0 Thou/mm3 (0.0-0.2); Basophils % (Auto) 0 % (0-2.5); Eosinophils # (Auto) 0.3 Thou/mm3 (0.0-0.5); Eosinophils % (Auto) 3 % (0-10); Hematocrit 28.2 % (41.0-53.0); Hemoglobin 9.2 g/dL (13.5-16.0); Immature Granulocytes Auto 0.05 Thou/mm3 (0.00-0.00); Lymphocytes # (Auto) 1.4 Thou/mm3 (1.0-4.8); Lymphocytes % (Auto) 13 % (10-50); Mean Corpuscular HGB Conc 32.6 g/dl (31.0-37.0); Mean Corpuscular Hemoglobin 25.1 pg (25.0-35.0); Mean Corpuscular Volume 77 fL (80-100); Monocytes # (Auto) 1.1 Thou/mm3 (0.0-0.8); Monocytes % (Auto) 10 % (0-12); Neutrophils # (Auto) 8.0 Thou/mm3 (1.8-7.7); Neutrophils % (Auto) 73 % (37-80); Nucleated Red Blood Cell # 0.00 Thou/mm3 (0.00-0.00); Nucleated Red Blood Cell % 0 /100 WBC (0); Platelet Count 317 Thou/mm3 (140-440); RDW Standard Deviation 54.3 fL (35.1-43.9); Red Blood Count 3.66 Miln/mm3 (4.50-5.90); White Blood Count 10.9 Thou/mm3 (3.8-10.6)
[2024-12-26 06:58] LABS: Alanine Aminotransferase 26 U/L (10-49); Albumin, Serum 2.9 gm/dL (3.5-5.0); Albumin/Globulin Ratio 0.7 (1.2-2.2); Alkaline Phosphatase 158 U/L (46-116); Anion Gap 12 (7-16); Aspartate Amino Transferase 23 U/L (0-34); BUN/Creatinine Ratio 18 Ratio (12-20); Bilirubin,Total < 0.2 mg/dL (0.3-1.2); Blood Urea Nitrogen 11 mg/dL (9-23); Calcium 9.4 mg/dL (8.3-10.6); Calcium (Corrected) 10.3 mg/dL (8.5-10.1); Carbon Dioxide 23.8 mMol/L (20.0-31.0); Chloride 107 mMol/L (98-107); Creatinine (Component) 0.6 mg/dL (0.6-1.3); Estimated Creatinine Clearance 141.0 mL/min (>60); Globulin 4.0 gm/dL (2.3-3.5); Glucose 101 mg/dL (74-106); Magnesium 1.6 mg/dL (1.6-2.6); Osmolality,Calculated 284 (275-295); Phosphorous 3.8 mg/dL (2.4-5.1); Potassium 3.7 mMol/L (3.4-5.1); Sodium 143 mMol/L (136-145); Total Protein 6.9 gm/dL (5.7-8.2); eGFR > 60 See Note
[2024-12-26 08:00] VITALS: BP 128/72; PULSE 107; RESP 29; TEMP 36.9; O2SAT 96
[2024-12-26 08:06] VITALS: PULSE 108; RESP 20; O2SAT 97
--- NOTE | 2024-12-26 08:08 | ESDS_ITS ---
<Statement entered by Vianey Bernard DO - 12/27/24 08:16> I, Vianey Bernard DO, attest that I was physically present for the martinez portions of the service and evaluated the patient with the resident and I reviewed and discussed the case with the resident and agree with the resident's findings and plans of care as documented above <Statement entered by Wil Howard MD - 12/26/24 20:48> Patient seen and examined at bedside, no acute overnight events. I discussed and supervised with the international trade specialist physician who took care of this patient. I personally saw and examined the patient. I agree with most of the assessment and plan. Plan of care discussed with attending Dr. Bernard. Wil Howard MD PGY-2 Planned Discharge Date 12/26/24 DS: Providers Provider Date of admission: 12/20/24 11:59 Primary care physician: Physician No Primary/Family Admitting Provider: Gabriel Og MD Attending Provider on Admission: Vianey Bernard DO Consults: 12/20/24 12:08 Referral Wound Care Routine Comment: posterior BLE wounds with puralent drainage. 12/20/24 14:23 Referral Registered Dietitian Routine Comment: 12/21/24 09:27 Consult to General Surgery Routine Comment: Consulting Provider: Sumeet Angela Attending Provider on DC: Dr. Bernard Discharging Provider: RESIDENT Omero DS: Diagnosis Problem List Completed Was Problem List Reviewed/Reconciled?: Yes Hospital Course Hospital Course Hospital course: Mr. 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 failure/ Trach/ Peg, non responsive and with Quadriparesis. On admission patient was was noted to be less alert then previously noted, admitted for c/f sepsis (suspected source of infxn are soft tissue wounds on BLE calfs). Patient with Bolivar also noted to have dirty UA growing Pseudomonas. Bolivar was exchanged on 12/20. Patient received IV antibiotics with Zosyn for concern of soft tissue infection. Wound care was consulted for bilateral lower extremity calf wounds, surgery was consulted and did not find that wounds needed washout (no signs of necrosis), continue with wound care recommendations. patient was found to be influenza positive started on a 5-day course of Tamiflu. Patient received chest physical therapy while in the hospital and on occasion was noted to have blood- tinged sputum per trach tube. patient continued to have low-grade fevers and sputum per trach tube which gave concern for superimposed bacterial pneumonia. We continued patient on LR with improvement in his mucous membranes patient was started on doxycycline 100 mg IV and then transition to per G-tube. Dietitian was consulted to assist with G-tube feeding. Patient's condition improved clinically, and patient was discharged to subacute. 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 Howard Case discussed with my attending Dr. Joana Milton MD PGY-1 Time Spent with Patient Time attestation: Total time spent providing and/or coordinating discharge services: Time spent: Greater than 30 minutes Exam Vital Signs Temp Pulse Resp BP Pulse Ox O2 Del Method O2 Flow Rate 97.8 F 108 H 20 129/80 97 Blow-by 6 12/26/24 04:00 12/26/24 08:06 12/26/24 08:06 12/26/24 04:00 12/26/24 08:06 12/26/24 04:00 12/26/24 08:06 FiO2 28 12/26/24 08:06 Narrative Exam GENERAL: pt nonverbal, laying in bed, eyes opening spontaneously HEENT: Head AT/ NC. Lips are less cracked than on intake, more moisturized. NECK: trach midline, no bleeding noted around trach, some sputum in the trach tube CARDIOVASCULAR: regular rate regular rhythm. Normal S1/S2, No m/r/g. No pitting edema of bilateral LEs, SCDs not on. RESPIRATORY: pt has Trach in place, midline with some sputum, on auscultation there are upper airway coarse sounds, no crackles appreciated. GASTROINTESTINAL: Abdomen soft, non tender no palpable masses. Bowel sounds present, well healed surgical incision on R lower abdomen., PEG tube in place in center of abdomen, without eyrthema no puralent drainage , some crusting around the tube. : bolivar catheter in place (last changed 12/20) draining MUSCULOSKELETAL:? No cyanosis or edema, pt is very frail, Left upper extremity is contorted in interior rotation and flexion of the wrist. NEUROLOGICAL: unable to assess, pt is quadraplegic, and nonverbal at baseline with eyes opening spontaneously PSYCHIATRIC: not agitated SKIN: BLE posterior leg wounds with dressings in place both are 4-5cm in diameter, without purulent drainage, no evidence of necrosis. Sacral wound, dressed and clean, no purulent drainage noted. and R buttock wound with dressing in place without purulent drainage, or errythematous base. Discharge Plan Plan Patient Disposition: Xfer Skilled Nsg Fac (SNF) Care Plan Goals: Take all home meds as prescribed Patient already completed course of antibiotics during hospital stay F/U with PCP as outpatient In case of emergency or worsening signs/symptoms come back to the ED Prescriptions/Referrals Prescriptions/Med Rec: Continued albuterol sulfate 2.5 mg /3 mL (0.083 %) solution for nebulization 2.5 mg inhalation Q4H PRN (Reason: shortness of breath or wheezing) 365 Days 0RF ascorbic acid (vitamin C) 500 mg tablet 500 mg G-tube BID 365 Days Qty: 365 0RF atorvastatin 40 mg tablet 40 mg G-tube HS 365 Days Qty: 365 0RF baclofen 20 mg tablet 20 mg G-tube Q6HR 365 Days Qty: 365 0RF gabapentin 300 mg capsule 300 mg G-tube TID 365 Days Qty: 365 0RF lansoprazole 30 mg capsule,delayed release(DR/EC) 30 mg G-tube QDAY 365 Days Qty: 365 0RF levetiracetam 100 mg/mL solution 1,000 mg G-tube BID 365 Days Qty: 3650 0RF multivitamin Tablet 1 tab G-tube QDAY 365 Days Qty: 365 0RF ipratropium-albuterol 0.5 mg-3 mg(2.5 mg base)/3 mL solution for nebulization 3 ml INH Q2HR PRN (Reason: Wheezing) 365 Days 0RF bisacodyl [Dulcolax (bisacodyl)] 10 mg suppository 10 mg ME PRN PRN (Reason: No BM Per Bowel Management Protocol) 365 Days 0RF Rx Instructions: Administer as needed on 6th shift, if MOM ineffective. polyethylene glycol 3350 17 gram powder in packet 17 g G-tube PRN PRN (Reason: No BM Per Bowel Management Protocol) 365 Days 0RF Label Comments: Administer as needed if 2nd round bowel protocol ineffective. Rx Instructions: Mix with 4oz of water before giving. Hold tube feeding for 30 minutes after administration. Notify provider if no results from Miralax. magnesium hydroxide [Milk of Magnesia] 400 mg/5 mL suspension 30 ml G-tube PRN PRN (Reason: Constipation) 365 Days 0RF Rx Instructions: CONC: 400MG/5ML Fleet Enema 19-7 gram/118 mL enema 133 ml ME PRN PRN (Reason: No BM Per Bowel Management Protocol) 365 Days 0RF Label Comments: If Dulcolax is ineffective on 3rd day / 7th shift, give Fleets enema per Bowel Management Protocol. Notify MD if no results from Enema. midodrine 5 mg tablet 5 mg G-tube TID PRN (Reason: Hold for SBP>90 and DBP>50) 365 Days 0RF Rx Instructions: do not give last dose of day after 6PM or within 4 hrs of bedtime acetaminophen 325 mg tablet 650 mg G-tube Q6HR PRN (Reason: Pain) 365 Days 0RF Rx Instructions: not to exceed 3 gm of tylenol in 24 hours from all other sources acetaminophen 325 mg tablet 650 mg G-tube Q4HR PRN (Reason: Fever > 100.4) 90 Days 0RF Label Comments: Not to exceed 3gm of Tylenol from any source. For fever olanzapine 5 mg tablet 5 mg G-tube QDAY 365 Days Qty: 365 0RF Label Comments: AMB restlessness Rx Instructions: Give one tab every day PGT lactulose 10 gram/15 mL solution 10 g feeding tube QDAY Qty: 450 11RF Label Comments: Hold for loose stools silver nitrate applicators 75-25 % stick 1 ea top PRN PRN (Reason: Wound Management) 30 Days 0RF Label Comments: May use house stock metoprolol tartrate 25 mg tablet 100 mg G-tube BID 365 Days Qty: 1460 0RF Label Comments: Hypertension Rx Instructions: Hold for SBP<100 and or HR<60 Referrals: No Primary/Family,Physician [Primary Care Provider] - Patient/Caregiver Discharge Instructions Meds to Beds: No Education Materials: The Flu (Influenza) Print Language: Libyan Stand Alone Forms: Claudia Award Info., Patient Portal Info Letter Discharge Order Discharge Orders: Discharge (Routine); Ordered 12/26/24 Ordered By: Ray Beasley Quality Discharge Quality Measures VTE prophylaxis and sepsis
[2024-12-26] MEDS: levETIRAcetam LIQD 500 MG/5 ML UDC 1000 MG GT (08:42)
[2024-12-26] MEDS: MULTIVITAMIN 15 ML UDC GT (08:42)
[2024-12-26 08:43] VITALS: BP 126/76; PULSE 107
[2024-12-26] MEDS: METOPROLOL TARTRATE 25 MG TABLET 100 MG GT (08:43)
[2024-12-26] MEDS: ASCORBIC ACID 250 MG TABLET 500 MG GT (08:43)
[2024-12-26] MEDS: OSELTAMIVIR 75 MG CAPSULE PO (08:43)
[2024-12-26] MEDS: DOXYCYCLINE 100 MG TABLET GT (08:44)
[2024-12-26] MEDS: Magnesium Sulfate 2 GM Ivpb 2 GM/50 ML BAG IV (08:44)
[2024-12-26] MEDS: DEXTROSE 5%-LACTATED RINGERS 1,000 ML 75 ML IV (08:45)
[2024-12-26 12:00] VITALS: BP 113/80; PULSE 81; RESP 20; TEMP 36.3; O2SAT 100
--- NOTE | 2024-12-26 12:14 | PC.SS ---
SS follow up note; SS spoke to Suha from Subacute and informed her that patient was discharging today, Suha provided SS with Contact number for report. Contact number provided to Sandra DE SOUZA.
== END 2024-12-26 13:18 | disposition skilled nursing facility (03) | DRG 720 ==
LOC: SERX 11:21 → SERHOLD 12:34 → S2SX 12-21 06:53 → S3NX 12-24 09:00 → S2SX 12-28 07:58 → S2NX 12-28 07:58 → S3NX 12-28 07:58
PROVIDERS: Student in an Organized Health Care Education/Training Program; Admitting Provider Internal Medicine; Emergency Provider Family Medicine; Visit Provider Internal Medicine
DX: A41.9 Sepsis, unspecified organism (principal); G82.50 Quadriplegia, unspecified; R74.8 Abnormal levels of other serum enzymes; Z66 Do not resuscitate; R40.3 Persistent vegetative state; E87.6 Hypokalemia; E87.0 Hyperosmolality and hypernatremia; R56.9 Unspecified convulsions; J96.10 Chronic respiratory failure, unspecified whether with hypoxia or hypercapnia; E86.0 Dehydration; L89.90 Pressure ulcer of unspecified site, unspecified stage; D64.89 Other specified anemias; E83.52 Hypercalcemia; G93.40 Encephalopathy, unspecified; Z74.01 Bed confinement status; Z78.9 Other specified health status; J95.01 Hemorrhage from tracheostomy stoma; I77.6 Arteritis, unspecified; J15.9 Unspecified bacterial pneumonia; J10.08 Influenza due to other identified influenza virus with other specified pneumonia
CPT/HCPCS: 36415; 36600; 71045; 80048; 80053; 80202; 81001; 82270; 82803; 83605; 83735; 84100; 84132; 84145; 85014; 85018; 85025; 86850; 86900; 86901; 86923; 87040; 87077; 87081; 87086; 87186; 87400; 87811; 93005; 93225; 94667; 96361; 96365; 96366; 96367; 99285; J2543; J3373; J3475; J3480; J3490; J7030; J7070; J7120; J7121; P9016; A9270

== ENCOUNTER 2025-02-12 03:59 | Inpatient (IN) | payer OTHER, SELFPAY ==
[2025-02-12] VITALS (18 sets, daily range): BP systolic 94–133; BP diastolic 62–103; PULSE 81–129; RESP 14–27; TEMP 36.1–38.6; O2SAT 94–100; BMI 16.0
--- NOTE | 2025-02-12 04:03 | PD.EDFEVER ---
ED Fever RME/HPI General Chief Complaint: Fever Stated Complaint: FEVER Time Seen by Provider: 02/12/25 04:07 Arrival date/time: 02/12/25 03:59 RME / HPI RME / HPI Narrative: Dr. Fiore?s Main ED Evaluation: 29yo male arrives from subacute with trach and PEG tube, history of cocaine induced metabolic encephalopathy now with reported fever of 103 and COVID/Influenza negative. Patient received Tylenol x2 earlier. No V/D. Related Data Previous Rx's ?Medication ?Instructions ?Recorded albuterol sulfate 2.5 mg/3 mL 2.5 mg (3 mL) inhalation Q4H PRN 11/03/24 (0.083 %) solution for nebulization shortness of breath or wheezing 365 days ascorbic acid (vitamin C) 500 mg 500 mg G-tube BID supplement 365 11/03/24 tablet days #365 tabs atorvastatin 40 mg tablet 40 mg G-tube HS hyperlipidemia 365 11/03/24 days #365 tabs baclofen 20 mg tablet 20 mg G-tube Q6HR muscle spasms 11/03/24 365 days #365 tabs bisacodyl 10 mg rectal suppository 10 mg IA PRN PRN No BM Per Bowel 11/03/24 (Dulcolax (bisacodyl)) Management Protocol 365 days gabapentin 300 mg capsule 300 mg G-tube TID neuropathic pain 11/03/24 365 days #365 caps ipratropium 0.5 mg-albuterol 3 mg 3 ml INH Q2HR PRN Wheezing 365 days 11/03/24 (2.5 mg base)/3 mL nebulization soln levetiracetam 100 mg/mL oral 1,000 mg (10 mL) G-tube BID 11/03/24 solution seizures 365 days #3,650 mL magnesium hydroxide 400 mg/5 mL 30 ml G-tube PRN PRN Constipation 11/03/24 oral suspension (Milk of Magnesia) 365 days midodrine 5 mg tablet 5 mg G-tube TID PRN Hold for 11/03/24 SBP>90 and DBP>50 365 days polyethylene glycol 3350 17 gram 17 g G-tube PRN PRN No BM Per 11/03/24 oral powder packet Bowel Management Protocol 365 days sodium phosphates 19 gram-7 133 ml IA PRN PRN No BM Per Bowel 11/03/24 gram/118 mL enema (Fleet Enema) Management Protocol 365 days lansoprazole 30 mg capsule,delayed 30 mg G-tube QDAY GERD 365 days 11/04/24 release #365 caps multivitamin 1 tab G-tube QDAY supplement 365 11/04/24 days #365 tabs acetaminophen 325 mg tablet 650 mg (2 x 325 mg) G-tube Q6HR 11/05/24 PRN Pain 365 days metoprolol tartrate 25 mg tablet 100 mg (4 x 25 mg) G-tube BID 365 12/05/24 days #1,460 tabs morphine concentrate 100 mg/5 mL 2 mg (0.1 mL) G-tube TID PRN GIVE 01/02/25 (20 mg/mL) oral solution 30 MINS PRIOR TO WOUND TX 365 days lactulose 10 gram/15 mL oral 10 g (15 mL) feeding tube QDAY 02/09/25 solution constipation 30 days #6,150 mL acetaminophen 325 mg tablet 650 mg (2 x 325 mg) G-tube Q4HR 02/10/25 PRN Fever > 100.0 90 days #360 tabs Allergies Allergy/AdvReac Type Severity Reaction Status Date / Time No Known Allergies Allergy Unverified 10/23/24 09:16 Review of Systems Review of Systems ROS Unobtainable: unobtainable due to medical condition Physical Exam Narrative Physical exam: GENERAL APPEARANCE: awake, febrile, appears chronically ill and is able to track with both eyes, nonverbal, unable to follow simple commands, no acute distress VITALS: All vitals were reviewed and the pulse ox is % on room air, which is normal according to my interpretation. HEENT: Normocephalic, atraumatic; pupils equal, round, reactive to light; EOMI; mucous membranes pink, moist; oropharynx clear NECK: Nonsupple LUNGS: Diffuse rhonchi bilaterally HEART: Regular rate, regular rhythm; normal S1, S2; no murmurs ABDOMEN: slightly distended; PEG tube in place; soft, no tenderness BACK: no CVA tenderness EXTREMITIES: dressed posterior popliteal decubitus ulcers; tissue surrounding the left knee dressing is warm to touch, contracted BUE and BLE NEUROLOGIC: awake; unable to assess cranial nerves II-XII SKIN: warm, dry, normal color; no rashes Course Course Course Narrative: 0414: Sepsis alert initiated. Orders made at this time are congruent with ED Adult Sepsis Order List. Re-evaluation is to be completed. CXR is ordered for determining the etiology of fever. 0517: NS IVF started. Quality Measures Possible source: pulmonary, genitourinary and skin/soft tissue Blood cultures ordered: yes Antibiotic ordered: Yes Pertinent labs: 02/12/25 04:45 Lactic Acid 2.2 H mMol/L (0.4-2.0) Procalcitonin 0.56 H ng/ml (0.0-0.49) sepsis Orders Category Date Time Status Surety Bond Agent STAT Care 02/12/25 04:08 Active Continuous Pulse Oximetry STAT Care 02/12/25 04:08 Completed EKG (ED ONLY) *Do not use* NOW Care 02/12/25 04:08 Completed In and Out Catheter X1PRN Care 02/12/25 04:08 Completed Insert IV NOW Care 02/12/25 04:08 Active NPO STAT Care 02/12/25 04:08 Active EKG (ED Only) Stat Exams 02/12/25 04:08 Draft XR chest 1V SEPSIS PROTOCOL Stat Exams 02/12/25 04:13 Completed Arterial Blood Gas AM DRAW Lab 02/12/25 04:57 Completed B-Type Natriuretic Peptide Stat Lab 02/12/25 04:45 Completed Blood Culture (Lab) Stat Lab 02/12/25 04:45 Received C-Reactive Protein Stat Lab 02/12/25 04:45 Completed CBC Stat Lab 02/12/25 04:45 Completed Comprehensive Metabolic Panel Stat Lab 02/12/25 04:45 Completed LDH (Lactate Dehydrogenase) Stat Lab 02/12/25 04:45 Completed Lactate (Lactic Acid) Stat Lab 02/12/25 04:45 Completed Lactic Acid, 3 HR Stat Lab 02/12/25 08:46 Completed Lipase Stat Lab 02/12/25 04:45 Completed Magnesium Stat Lab 02/12/25 04:45 Completed Partial Thromboplastin Time Stat Lab 02/12/25 04:45 Completed Phosphorous Stat Lab 02/12/25 04:45 Completed Procalcitonin Stat Lab 02/12/25 04:45 Completed Prothrombin Time with INR Stat Lab 02/12/25 04:45 Completed Sed Rate (ESR) Stat Lab 02/12/25 04:45 Completed Sputum Culture and Gram Stain Stat Lab 02/12/25 05:01 Results Troponin I Stat Lab 02/12/25 04:45 Completed Urinalysis, C/S if Indicated Stat Lab 02/12/25 05:10 Completed Urine Culture Stat Lab 02/12/25 05:10 Received Acetaminophen Supp [Tylenol Supp] Med 02/12/25 04:07 Active 975 mg IA Q8HR PRN Pharmacy Renal Dose Adjustment Med 02/12/25 04:07 Active 1 each XX PRN PRN Piper/Tazo 3.375 gm Premix [Zosyn] Med 02/12/25 04:07 Discontinued 3.375 gm in 50 ml IV X1 Sodium Chloride 0.9% 1000 ml [Ns] 1,000 ml Med 02/12/25 04:17 Discontinued IV 999 mls/hr Sodium Chloride 0.9% 1000 ml [Ns] 2,000 ml Med 02/12/25 04:16 Discontinued IV 999 mls/hr Sodium Chloride Rt [place] 10% [NS Rt [place] 10%] Med 02/12/25 04:07 Discontinued 5 ml INH X1 ONE Vancomycin Inj 1,000 mg Med 02/12/25 04:18 Discontinued Sodium Chloride 0.9% 250 ml [Ns] 250 ml IV X1 Oxygen Delivery NOW RT 02/12/25 04:08 Active Sputum Induction PRN RT 02/12/25 04:15 Ordered Vital Signs Vital signs: Vital Signs Temperature 101.4 F H 02/12/25 04:06 Pulse Rate 129 H 02/12/25 04:06 Respiratory Rate 27 H 02/12/25 04:06 Blood Pressure 133/103 H 02/12/25 04:06 Oxygen Delivery Method Trach Collar 02/12/25 04:06 Fever MDM Narrative MDM Narrative:: Scribe Attestation: 02/12/25 - Gwendolyn Marcelo am scribing for and in the presence of Dr. Fiore. 29yo male arrives from [facility] with trach and PEG tube, history of cocaine induced metabolic encephalopathy now with reported fever of 103 and COVID/Influenza negative. Patient received Tylenol x2 earlier. Please see PE findings. Lab markers demonstrate elevated WBC 14.1, Hgb 9.4, normal platelets. Chemistries demonstrate normal renal function, hypercalcemia with Ca 11.4, Procalcitonin 0.456. CXR without evidence of infiltrate, effusion, or pneumothorax. UA demonstrates evidence of UTI. Patient entered to sepsis protocol and after cultures obtained, empiric antibiotics administered. Administered antipyretics with gradual reduction in temperature and heart rate. Hospitalist will be consulted for admission. Patient data External records reviewed:: [facility] previous records (Reviewed subacute notes.) Clinical information provided by:: none (nursing staff) Social determinants that could affect healthcare access:: housing (subacute resident) Patient has the following chronic illnesses:: cocaine induced vasculitis, chronically trach and PEG, chronic quadriplegia, and history of seizure How is presenting disease/condition affected by chronic disease/condition?: exacerbated by Evaluation data The following diagnostics were reviewed and interpreted by me:: lab results, radiology exam(s) and EKG tracing(s) Lab and/or radiology exams considered but not ordered:: none Interpretation Summary: EKG done at 0541, sinus tachycardia, rate of 110, no acute pathological ST segment changes, no ectopy, normal intervals, left axis deviation, according to my interpretation. Medications / Prescriptions Medications or Prescriptions considered but not ordered:: none Medication administrations:: Medication Administration History Acetaminophen (Acetaminophen Supp 650 Mg Supp) 975 mg IA Q8HR PRN PRN Reason: Fever > 100.4 Stop: 03/14/25 04:06 Last Admin: 02/12/25 05:13 Dose: 975 mg Documented By: [email or web address] Acetaminophen (Acetaminophen [place] 325 Mg/10 Ml Udc) 650 mg NG Q6H PRN PRN Reason: Fever >100.4 or pain Stop: 03/14/25 08:07 Albuterol/Ipratropium (Albuterol/Ipratropium (Duoneb) Rt [place] 3 Ml Nebu) 3 ml INH Q4HRRT RADHA Stop: 03/14/25 10:59 Last Admin: 02/12/25 19:04 Dose: 3 ml Documented By: Admin: 02/12/25 14:01 Dose: 3 ml Documented By: [facility] Admin: 02/12/25 11:01 Dose: Not Given Documented By: [facility] Non-Admin Reason: Medication Not Available Albuterol/Ipratropium (Albuterol/Ipratropium (Duoneb) Rt [place] 3 Ml Nebu) 3 ml INH Q2HR PRN PRN Reason: SHORTNESS OF BREATH OR WHEEZE Stop: 03/14/25 08:07 Atorvastatin Calcium (Atorvastatin Calcium 20 Mg Tablet) 40 mg GT HS RADHA Stop: 03/14/25 20:59 Last Admin: 02/12/25 20:55 Dose: 40 mg Documented By: MARIO Baclofen (Baclofen 10 Mg Tablet) 10 mg PO Q6H RADHA Stop: 03/14/25 08:29 Last Admin: 02/12/25 20:55 Dose: 10 mg Documented By: Admin: 02/12/25 14:19 Dose: 10 mg Documented By: Admin: 02/12/25 11:36 Dose: Not Given Documented By: EL Non-Admin Reason: Not In Room Gabapentin (Gabapentin 100 Mg Capsule) 300 mg GT TID RADHA Stop: 03/14/25 08:29 Last Admin: 02/12/25 21:01 Dose: 300 mg Documented By: Admin: 02/12/25 14:19 Dose: 300 mg Documented By: Admin: 02/12/25 11:36 Dose: Not Given Documented By: SY Non-Admin Reason: Not In Room Heparin Sodium (Porcine) (Heparin Sod Inj 5000 Unit/Ml Vial) 5,000 unit SC Q12HR [facility] Stop: 02/26/25 08:59 Last Admin: 02/12/25 20:55 Dose: 5,000 unit Documented By: MARIO Co-signed By: JUSTINA Admin: 02/12/25 08:51 Dose: 5,000 unit Documented By: ALLYSON Co-signed By: HEAVEN Cefepime HCl 2 gm/ Sodium (Chloride) 50 mls @ 100 mls/hr IV Q8HR [facility] Stop: 02/19/25 08:15 Last Admin: 02/12/25 21:01 Dose: 100 mls/hr Documented By: Infusion: 02/12/25 14:50 Dose: Infused Documented By: Admin: 02/12/25 14:20 Dose: 100 mls/hr Documented By: Infusion: 02/12/25 09:19 Dose: Infused Documented By: Admin: 02/12/25 08:49 Dose: 100 mls/hr Documented By: ALLYSON Vancomycin HCl (Vancomycin/Water 1gm Ivpb) 200 mls @ 120 mls/hr IV BID@1000,2200 [facility] Stop: 02/19/25 21:59 Last Admin: 02/12/25 22:09 Dose: 120 mls/hr Documented By: MARIO Lactulose (Lactulose Syrup 20 Gm/30 Ml Udc) 10 gm GT BID RADHA; Protocol Stop: 03/14/25 08:59 Last Admin: 02/12/25 20:56 Dose: 10 gm Documented By: Admin: 02/12/25 11:37 Dose: 10 gm Documented By: EL Lansoprazole (Lansoprazole 30 Mg Tab.Rap.) 30 mg GT QDAY RADHA Stop: 03/14/25 08:59 Last Admin: 02/12/25 11:38 Dose: 30 mg Documented By: EL Levetiracetam (Levetiracetam Liqd 500 Mg/5 Ml Udc) 1,000 mg PO BID RADHA Stop: 03/14/25 08:59 Last Admin: 02/12/25 20:56 Dose: 1,000 mg Documented By: Admin: 02/12/25 11:38 Dose: 1,000 mg Documented By: EL Midodrine (Midodrine 5 Mg Tablet) 5 mg PO TID RADHA Stop: 03/14/25 08:29 Last Admin: 02/12/25 21:01 Dose: 5 mg Documented By: Admin: 02/12/25 14:19 Dose: 5 mg Documented By: Admin: 02/12/25 11:36 Dose: Not Given Documented By: EL Non-Admin Reason: Not In Room Ondansetron HCl (Ondansetron Inj 2 Mg/Ml Inj 2 Ml) 4 mg IVP Q6H PRN; Protocol PRN Reason: NAUSEA OR VOMITING Stop: 03/14/25 08:07 Pharmacy Consult (Pharmacy Renal Dose Adjustment 1 Ea) 1 each XX PRN PRN PRN Reason: CONSULT Stop: 03/14/25 04:06 Pharmacy Consult (Vancomycin Pharmacy To Dose 1 Each Each) 1 each IV QDAY PRN PRN Reason: consult Stop: 03/14/25 08:59 Polyethylene Glycol (Polyethylene Glycol 17 Gm Packet) 34 gm GT QDAY RADHA Stop: 03/14/25 08:59 Last Admin: 02/12/25 11:38 Dose: 34 gm Documented By: EL Discontinued Medications Piperacillin/Tazobactam/Dextrose (Zosyn) 3.375 gm in 50 mls @ 100 mls/hr IV X1 ONE Stop: 02/12/25 04:36 Last Infusion: 02/12/25 06:58 Dose: Infused Documented By: Admin: 02/12/25 05:12 Dose: 100 mls/hr Documented By: KARAN Sodium Chloride (Ns) 2,000 mls @ 999 mls/hr IV .Q2H1M ONE Stop: 02/12/25 06:16 Last Infusion: 02/12/25 07:18 Dose: Infused Documented By: Admin: 02/12/25 05:17 Dose: 999 mls/hr Documented By: KARAN Sodium Chloride (Ns) 1,000 mls @ 999 mls/hr IV .Q1H1M ONE Stop: 02/12/25 05:17 Last Admin: 02/12/25 05:16 Dose: Not Given Documented By: KARAN Non-Admin Reason: Duplicate Medication on eMAR Vancomycin HCl 1,000 mg/ (Sodium Chloride) 250 mls @ 150 mls/hr IV X1 ONE Stop: 02/12/25 05:57 Last Infusion: 02/12/25 07:23 Dose: Infused Documented By: Admin: 02/12/25 05:42 Dose: 150 mls/hr Documented By: KARAN Sodium Chloride (Sodium Chloride Rt 10% 15 Ml Nebu) 5 ml INH X1 ONE Stop: 02/12/25 04:08 Last Admin: 02/12/25 11:01 Dose: Not Given Documented By: [facility] Non-Admin Reason: Other, see note Sodium Hypochlorite (Sod Hypochlorite 1/4 Str 473 Ml Btl) 473 ml IRRIG X1 ONE Stop: 02/12/25 13:28 Last Admin: 02/12/25 14:47 Dose: Not Given Documented By: EL Non-Admin Reason: Dressing change done by wound nurse see above Consultations Consultation(s) initiated? (list below): Yes Diagnosis Fever Differential Diagnosis: cellulitis, community acquired pneumonia, viral infection, sepsis, influenza and other (UTI) Most likely diagnosis given after review of the tests above:: sepsis, UTI, bilateral popliteal decubitus ulcers Admission Indicated Admission indicated?: indicated Admission Request Was there a request for admission?: Yes Admission Attestation Admission request attestation: Discussed case with [] from Hospitalist service regarding admission. Discussed patients ED course, exam findings, labs, and radiology results. The Hospitalist [agrees,declines] to accept the patient for admission. Disposition Plan Disposition Plan: Admit Discharge Plan Plan Patient Disposition: Admit Acute Care w/in Hospital Problem List Clinical Impression: UTI (urinary tract infection), Sepsis, Skin ulcer of popliteal region
--- NOTE | 2025-02-12 04:08 | EKG_ITS ---
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
--- NOTE | 2025-02-12 04:13 | XR_ITS ---
Examination: AP chest single view. TECHNIQUE: AP portable semiupright chest single view. Date and time: February 12, 2025, 0423 hours COMPARISON: December 20, 2024. INDICATIONS: Sepsis protocol. FINDINGS: Normal heart size. No lobar pneumonia. Minimal blunting of the left lateral costophrenic angle. No pulmonary edema. Osseous structures are intact. IMPRESSION: No lobar pneumonia Suspicious for small left pleural effusion.
[2025-02-12 05:05] LABS: Base Excess 0 (-3-3); HCO3 23 mEq/L (20-26); Inspired Oxygen, FIO2 28 %; O2 Saturation 98 % (91-98); PCO2 32 mmHg (32.0-48.0); PO2 83 mmHg (83-108); pH, Arterial 7.47 (7.35-7.45)
[2025-02-12 05:07] LABS: Allen Test Not Performed; Puncture Site Right Radial
[2025-02-12 05:10] LABS: Lactate (Lactic Acid) 2.2 mMol/L (0.4-2.0)
[2025-02-12 05:11] LABS: Basophils # (Auto) 0.0 Thou/mm3 (0.0-0.2); Basophils % (Auto) 0 % (0-2.5); Eosinophils # (Auto) 0.0 Thou/mm3 (0.0-0.5); Eosinophils % (Auto) 0 % (0-10); Hematocrit 29.6 % (41.0-53.0); Hemoglobin 9.4 g/dL (13.5-16.0); Immature Granulocytes Auto 0.06 Thou/mm3 (0.00-0.00); Lymphocytes # (Auto) 1.5 Thou/mm3 (1.0-4.8); Lymphocytes % (Auto) 11 % (10-50); Mean Corpuscular HGB Conc 31.8 g/dl (31.0-37.0); Mean Corpuscular Hemoglobin 25.2 pg (25.0-35.0); Mean Corpuscular Volume 79 fL (80-100); Monocytes # (Auto) 1.0 Thou/mm3 (0.0-0.8); Monocytes % (Auto) 7 % (0-12); Neutrophils # (Auto) 11.5 Thou/mm3 (1.8-7.7); Neutrophils % (Auto) 82 % (37-80); Nucleated Red Blood Cell # 0.00 Thou/mm3 (0.00-0.00); Nucleated Red Blood Cell % 0 /100 WBC (0); Platelet Count 243 Thou/mm3 (140-440); RDW Standard Deviation 67.4 fL (35.1-43.9); Red Blood Count 3.73 Miln/mm3 (4.50-5.90); White Blood Count 14.1 Thou/mm3 (3.8-10.6)
[2025-02-12] MEDS: PIPER/TAZO 3.375 GM PREMIX 3.375 GM/50 ML BAG IV (05:12)
[2025-02-12] MEDS: ACETAMINOPHEN SUPP 650 MG SUPP 975 MG PR (05:13)
[2025-02-12] MEDS: SODIUM CHLORIDE 0.9% 1000 ML 2,000 ML 999 ML IV (05:17)
[2025-02-12 05:32] LABS: B-Type Natriuretic Peptide < 20 pg/mL (0-100)
[2025-02-12 05:40] LABS: INR 1.4 (0.9-1.3); Partial Thromboplastin Time 32.1 Seconds (22.0-36.0); Prothrombin Time 14.9 Seconds (9.0-12.2)
[2025-02-12] MEDS: Vancomycin Inj 1,000 MG in SODIUM CHLORIDE 0.9% 250 ML 250 ML 150 MG IV (05:42)
[2025-02-12 05:56] LABS: Collection Type, Urine Clean Catch; Squamous Epithelial Cell,Urine 0 /hpf (0-5)
[2025-02-12 06:03] LABS: Alanine Aminotransferase 98 U/L (10-49); Albumin, Serum 4.1 gm/dL (3.5-5.0); Albumin/Globulin Ratio 0.8 (1.2-2.2); Alkaline Phosphatase 176 U/L (46-116); Anion Gap 11 (7-16); Aspartate Amino Transferase 50 U/L (0-34); BUN/Creatinine Ratio 27 Ratio (12-20); Bilirubin,Total < 0.2 mg/dL (0.3-1.2); Blood Urea Nitrogen 27 mg/dL (9-23); Calcium 11.4 mg/dL (8.3-10.6); Calcium (Corrected) 11.4 mg/dL (8.5-10.1); Carbon Dioxide 21.3 mMol/L (20.0-31.0); Chloride 105 mMol/L (98-107); Creatinine (Component) 1.0 mg/dL (0.6-1.3); Estimated Creatinine Clearance 83.6 mL/min (>60); Globulin 5.2 gm/dL (2.3-3.5); Glucose 95 mg/dL (74-106); LDH (Lactate Dehydrogenase) 278 U/L (120-246); Lipase 28 U/L (12-53); Magnesium 1.6 mg/dL (1.6-2.6); Osmolality,Calculated 278 (275-295); Phosphorous 4.0 mg/dL (2.4-5.1); Potassium 4.7 mMol/L (3.4-5.1); Procalcitonin 0.56 ng/ml (0.0-0.49); Sodium 137 mMol/L (136-145); Total Protein 9.3 gm/dL (5.7-8.2); Troponin I < 0.020 ng/mL (0.0-0.045); eGFR > 60 See Note
[2025-02-12 06:34] LABS: Bacteria,Urine 1+; Bilirubin,Urine Negative (Negative); Blood,Urine Negative (Negative); Clarity,Urine Clear (Clear/Hazy); Color,Urine Lt-Yellow (Lt Yel-Yel); Glucose, Urine Negative (Negative); Ketones,Urine Negative (Negative); Leukocyte Esterase,Urine Positive (Negative); Nitrite,Urine Positive (Negative); PH,Urine 7.5 (5.0-7.0); Protein,Urine Negative (Neg - Trace); RBC,Urine 2 /hpf (0-3); Specific Gravity,Urine 1.014 (1.001-1.035); Urobilinogen,Urine Negative mg/dL (0.0-1.0); WBC,Urine 4 /hpf (0-5)
[2025-02-12 06:36] LABS: Culture Indicated,Urine Yes
[2025-02-12 08:05] LABS: Reflex Lactate? Y
--- NOTE | 2025-02-12 08:17 | XR_ITS ---
Examination: CT bilateral lower extremities, without contrast. 2-D sagittal reconstructions. 2-D coronal reconstructions. 3-D reconstructions. Date and time of exam:February 12, 2025, 0945 hours INDICATIONS: Nonhealing wounds both knees this week CTDI: vol (mGy):9.92 DLP: (mGycm):1100 Technique: Multiple 1.25 mm axial sections of the knees without intravenous contrast have been obtained. 2-D sagittal and coronal reconstructions have been obtained. 3-D reconstructions have been obtained. Low dose protocols were performed. One or more of the following dose reduction techniques were used; automated exposure control, adjustment of the mA and/or KV according to patient size, use of iterative reconstruction technique. Findings: Large amounts of stool in the rectum with thickening of the rectal wall Urinary bladder is intact. Bilateral significant knee effusions Edema in the subcutaneous tissue surrounding the knees No soft tissue abscess No cortical bone destruction involving the bones of the lower extremities IMPRESSION: Significant bilateral knee effusions Cellulitis pattern in the soft tissue subcutaneous fatty tissues surrounding the knees. No soft tissue abscess Negative for osteomyelitis
[2025-02-12] MEDS: CEFEPIME INJ 2 GM in SODIUM CHLORIDE 0.9% (Popper) 50 ML IV ×3 (08:49→21:01)
[2025-02-12] MEDS: HEPARIN SOD INJ 5000 UNIT/ML VIAL SC ×2 (08:51→20:55)
[2025-02-12 09:02] LABS: Lactic Acid, 3 HR 0.9 mMol/L (0.4-2.0)
--- NOTE | 2025-02-12 09:26 | PC.NURSE ---
REPORT CALLED TO [facility]. RN MADE AWARE PATIENT'S G TUBE MAY BE CLOGGED. PATIENT WILL BE TAKEN TO CT THEN UPSTAIRS FOR ADMISSION
[2025-02-12 09:39] LABS: C-Reactive Protein 9.7 mg/dL (0.0-0.9)
[2025-02-12 11:01] LABS: Sed Rate (ESR) 75 mm/hr (0-15)
[2025-02-12] MEDS: LACTULOSE SYRUP 20 GM/30 ML UDC 10 GM GT ×2 (11:37→20:56)
[2025-02-12] MEDS: LANSOPRAZOLE 30 MG TAB.RAP.DR GT (11:38)
[2025-02-12] MEDS: POLYETHYLENE GLYCOL 17 GM PACKET 34 GM GT (11:38)
[2025-02-12] MEDS: levETIRAcetam LIQD 500 MG/5 ML UDC 1000 MG PO ×2 (11:38→20:56)
--- NOTE | 2025-02-12 13:21 | PC.DIETICIAN ---
Nutrition prescription When indicated: Jevity 1.5 at 30 ml/hr via PEG tube by pump. Advance 10 ml every 8 hrs to goal rate of 68 ml/hr x 24 hrs. If no IV fluids, water flushes of 50 ml/hr (or per MD).
[2025-02-12] MEDS: ALBUTEROL/IPRATROPIUM (Duoneb) RT SOL 3 ML NEBU INH ×3 (14:01→22:47)
--- NOTE | 2025-02-12 14:18 | ESHP_ITS ---
<Statement entered by Beth Ashford MD - 02/14/25 13:24> I attest that I was physically present for the evaluation, physical examination, lab and imaging review of the patient with the residents. I discussed the case with the residents and agree with the findings and plans of care as documented below. After examination of the patient and review of the clinical data I feel that this patient needs admission to the hospital for further treatment/evaluation. Patient is a 29 years old male with past medical history of cocaine induced vasculitis, seizure disorder, anemia, chronic respiratory failure with tracheostomy tube, status post PEG tube, nonresponsive with quadriparesis who presented to the ED from subacute with complaint of fever. In the ED, WBC was 14.1, patient was tachycardic with heart rate of 129, tachypneic with respiratory rate of 27 and fever up to 103.1 ?F. On exam, patient is nonverbal and does not respond to commands, lungs appear clear bilaterally, except for conducted sound from trach collar, PEG tube site appear clean and dry. Noted to have wound around bilateral popliteal fossa with foul-smelling purulent discharge, likely the source of infection. Rest of the labs were significant for ESR of 75, lactic acid 2.2, calcium 11.4, AST 50, ALT 98, ALP 176, LDH 278, CRP 9.7, procalcitonin 0.56. ABG showed pH of 7.47, QJS137 and PO283. We will admit the patient for management of sepsis likely secondary to cellulitis of bilateral popliteal.. Started on cefepime and vancomycin. We will also obtain CT of bilateral lower knee to look for abscess/deep infection. We will continue his gabapentin, Keppra, midodrine, baclofen and DuoNebs. We will also obtain iron panel and monitor his CBC closely. Cultures have been obtained, patient received IV fluid bolus in the ED, we will resume his PEG tube feeding. Beth Ashford MD <Statement entered by Trena Randall MD - 02/13/25 16:28> Patient was seen and examined at bedside. I agree on the assessment and plan on this note as documented by resident Mary Duncan DO PGY1. 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 Patient noted to have a fever, likely source stage IV pressure ulcers on bilateral legs, CT consistent with cellulitis, no evidence of osteomyelitis. Referral to wound care, will continue to monitor. Case discussed with attending Dr. 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 Patient is unable to give history and history collected per chart review. Patient presented with elevated WBC 14.1, tachycardia heart rate 129, tachypnea respiration rate 27 and a fever of 101.4, peaked 103.1. Per chart review, patient was recently admitted in early December for similar symptoms, fever and sepsis possibly related to influenza A and B+ versus superimposed bacterial pneumonia versus cellulitis from bilateral lower extremity, sacrum/buttock wounds. PMHx: unobtainable due to mental status, per chart review as above Surgical Hx: unable to obtain FHx: unable to obtain Social Hx: unable to obtain Allergies: NKDA Medications: as per med rec In ED, BP 133/103, HR 129, RR 27, temp 101.4. Significant labs include WBC 14.1, Hgb 9.4, ESR 75, PT 14.9, INR 1.4, ABG 7.47/32/83/23, BUN 27, Lactic acid 2.2, Ca 11.4, AST/ALT 50/98, alk phos 176, LDH 278, trop and BNP neg, CRP 9.7, procal 0.56. In ED, given Zoxyn x1, Vanc x1, 2L NS, and Tylenol 975 mg MI. EKG showed sinus tachycardia rate 110 with left axis deviation. Chest x-ray showed no lobar pneumonia, suspicious for small left pleural effusion. Patient was admitted for further workup and antibiotic treatment. Review of Systems Review of Systems ROS Unobtainable: unobtainable due to mental status and unobtainable due to medical condition Exam Vital Signs Temp Pulse Resp BP Pulse Ox O2 Del Method O2 Flow Rate 97.0 F 98 24 H 95/62 100 Blow-by 6 02/12/25 12:00 02/12/25 14:01 02/12/25 14:01 02/12/25 12:00 02/12/25 14:01 02/12/25 07:58 02/12/25 14:01 FiO2 28 02/12/25 14:01 Narrative Exam GENERAL: nonverbal, opens eyes spontaneously, frail HEENT: NC/AT, mucous membranes moist, bilateral sclera anicteric, tracheostomy midline, no bleeding noted around trach, some sputum in the trach tube CARDIOVASCULAR: regular rate and rhythm, S1/S2 present, no murmurs appreciated PULMONARY: clear to auscultation bilaterally, no rales/rhonchi/wheezes ABDOMINAL: soft, non-tender, non-distended, no rebound/guarding, bowel sounds present, PEG tube in place in center of abdomen without eyrthema no purulent drainage, some crusting inside the tube. : Langston cathether in place draining clear urine EXTREMITIES: no peripheral edema, LUE is contorted in interior rotation and flexion of the wrist. SKIN: b/l popliteal fossa leg wounds 4x4 cm with dressings in place with purulent drainage, no evidence of necrosis. Sacral wound, dressed and clean, no purulent drainage noted. R ischium buttock wound, dressed and clean, no purulent drainage noted NEURO: quadraplegic, and nonverbal at baseline with eyes opening spontaneously Results: Labs 02/14/25 09:15 02/14/25 09:15 Labs: Short CBC 02/12/25 Range/Units 04:45 WBC 14.1 H (3.8-10.6) Thou/mm3 Hgb 9.4 L (13.5-16.0) g/dL Hct 29.6 L (41.0-53.0) % Plt Count 243 (140-440) Thou/mm3 BMP 02/12/25 04:45 Sodium 137 Potassium 4.7 Chloride 105 Carbon Dioxide 21.3 BUN 27 H Creatinine 1.0 Glucose 95 Calcium 11.4 H Cardiac Enzymes 02/12/25 Range/Units 04:45 Troponin I < 0.020 (0.0-0.045) ng/mL Liver Function 02/12/25 Range/Units 04:45 Total Bilirubin < 0.2 L (0.3-1.2) mg/dL AST 50 H (0-34) U/L ALT 98 H (10-49) U/L Alkaline Phosphatase 176 H (46-116) U/L Albumin 4.1 (3.5-5.0) gm/dL Urine 02/12/25 Range/Units 05:10 Urine Color Lt-Yellow (Lt Yel-Yel) Urine Clarity Clear (Clear/Hazy) Urine pH 7.5 H (5.0-7.0) Ur Specific [place] 1.014 (1.001-1.035) Urine Protein Negative (Neg - Trace) Urine Glucose (UA) Negative (Negative) ABG Interpretation ABG results: 02/12/25 04:57 ABG pH 7.47 H ABG pCO2 32 ABG pO2 83 ABG HCO3 23 ABG O2 Saturation 98 ABG Base Excess 0 Quality Measures Quality Measures sepsis Current suspected stage: ruled out Possible source: skin/soft tissue Blood cultures ordered: yes Antibiotic ordered: Yes Medications Home Medications and Allergies Allergies Allergy/AdvReac Type Severity Reaction Status Date / Time No Known Allergies Allergy Unverified 10/23/24 09:16 Visit Medications Acetaminophen (Acetaminophen Supp 650 Mg Supp) 975 mg MI Q8HR PRN PRN Reason: Fever > 100.4 Stop: 03/14/25 04:06 Last Admin: 02/12/25 05:13 Dose: 975 mg Acetaminophen (Acetaminophen [place] 325 Mg/10 Ml Udc) 650 mg NG Q6H PRN PRN Reason: Fever >100.4 or pain Stop: 03/14/25 08:07 Albuterol/Ipratropium (Albuterol/Ipratropium (Duoneb) Rt [place] 3 Ml Nebu) 3 ml INH Q4HRRT RADHA Stop: 03/14/25 10:59 Last Admin: 02/12/25 14:01 Dose: 3 ml Albuterol/Ipratropium (Albuterol/Ipratropium (Duoneb) Rt [place] 3 Ml Nebu) 3 ml INH Q2HR PRN PRN Reason: SHORTNESS OF BREATH OR WHEEZE Stop: 03/14/25 08:07 Atorvastatin Calcium (Atorvastatin Calcium 20 Mg Tablet) 40 mg GT HS RADHA Stop: 03/14/25 20:59 Baclofen (Baclofen 10 Mg Tablet) 10 mg PO Q6H [facility] Stop: 03/14/25 08:29 Last Admin: 02/12/25 11:36 Dose: Not Given Gabapentin (Gabapentin 100 Mg Capsule) 300 mg GT TID [facility] Stop: 03/14/25 08:29 Last Admin: 02/12/25 11:36 Dose: Not Given Heparin Sodium (Porcine) (Heparin Sod Inj 5000 Unit/Ml Vial) 5,000 unit SC Q12HR [facility] Stop: 02/26/25 08:59 Last Admin: 02/12/25 08:51 Dose: 5,000 unit Cefepime HCl 2 gm/ Sodium (Chloride) 50 mls @ 100 mls/hr IV Q8HR [facility] Stop: 02/19/25 08:15 Last Infusion: 02/12/25 09:19 Dose: Infused Vancomycin HCl (Vancomycin/Water 1gm Ivpb) 200 mls @ 120 mls/hr IV BID@1000,2200 [facility] Stop: 02/19/25 21:59 Lactulose (Lactulose Syrup 20 Gm/30 Ml Udc) 10 gm GT BID RADHA; Protocol Stop: 03/14/25 08:59 Last Admin: 02/12/25 11:37 Dose: 10 gm Lansoprazole (Lansoprazole 30 Mg Tab.Rap.Dr) 30 mg GT QDAY [facility] Stop: 03/14/25 08:59 Last Admin: 02/12/25 11:38 Dose: 30 mg Levetiracetam (Levetiracetam Liqd 500 Mg/5 Ml Udc) 1,000 mg PO BID [facility] Stop: 03/14/25 08:59 Last Admin: 02/12/25 11:38 Dose: 1,000 mg Midodrine (Midodrine 5 Mg Tablet) 5 mg PO TID [facility] Stop: 03/14/25 08:29 Last Admin: 02/12/25 11:36 Dose: Not Given Ondansetron HCl (Ondansetron Inj 2 Mg/Ml Inj 2 Ml) 4 mg IVP Q6H PRN; Protocol PRN Reason: NAUSEA OR VOMITING Stop: 03/14/25 08:07 Pharmacy Consult (Pharmacy Renal Dose Adjustment 1 Ea) 1 each XX PRN PRN PRN Reason: CONSULT Stop: 03/14/25 04:06 Pharmacy Consult (Vancomycin Pharmacy To Dose 1 Each Each) 1 each IV QDAY PRN PRN Reason: consult Stop: 03/14/25 08:59 Polyethylene Glycol (Polyethylene Glycol 17 Gm Packet) 34 gm GT QDAY RADHA Stop: 03/14/25 08:59 Last Admin: 02/12/25 11:38 Dose: 34 gm Discontinued Medications Piperacillin/Tazobactam/Dextrose (Zosyn) 3.375 gm in 50 mls @ 100 mls/hr IV X1 ONE Stop: 02/12/25 04:36 Last Infusion: 02/12/25 06:58 Dose: Infused Sodium Chloride (Ns) 2,000 mls @ 999 mls/hr IV .Q2H1M ONE Stop: 02/12/25 06:16 Last Infusion: 02/12/25 07:18 Dose: Infused Sodium Chloride (Ns) 1,000 mls @ 999 mls/hr IV .Q1H1M ONE Stop: 02/12/25 05:17 Last Admin: 02/12/25 05:16 Dose: Not Given Vancomycin HCl 1,000 mg/ (Sodium Chloride) 250 mls @ 150 mls/hr IV X1 ONE Stop: 02/12/25 05:57 Last Infusion: 02/12/25 07:23 Dose: Infused Sodium Chloride (Sodium Chloride Rt 10% 15 Ml Nebu) 5 ml INH X1 ONE Stop: 02/12/25 04:08 Last Admin: 02/12/25 11:01 Dose: Not Given Sodium Hypochlorite (Sod Hypochlorite / Str 473 Ml Btl) 473 ml IRRIG X1 ONE Stop: 02/12/25 13:28 Assessment & Plan Plan Meena Carmona is a 29M pmhx significant for 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 #Sepsis #Cellulitis of b/l popliteal fossa stage 4 wounds #Sacral and R ischial wounds without purulent drainage #Significant bilateral knee effusions Patient presented with 4/4 SIRS positive, with history of similar previous admissions. On admission ESR 75, lactic acid 2.2->0.9, LDH 278, CRP 9.7, procal 0.56. Likely 2/2 cellulitis of b/l popliteal fossa wounds with purulent drainage, which have been infected previously. UA possible UTI +LE, +nitrites, 4 WBC, 1+ bacteria. CXR shows no lobar pneumonia, suspicious for small left pleural effusion. 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 Plan: - Start Duonebs q4h scheduled with q2h prn in place - Start Baclofen 10 mg q6h - Resume home gabapentin 300 mg TID - Resume home Keppra 1g BID - Resume home midodrine 5 mg TID with parameters to hold if SBP >90 #Transaminitis On admission AST/ALT 50/98, baseline . Possible component of sepsis, were elevated on previous admission as well. CTAP on 10/2024 show no focal liver lesions. Plan: - CTM LFTs - Consider liver US or further imaging if values remain elevated #Hypercalcemia On admission 11.4 . Patient has hx of hypercalcemia on previous admission 10.3- 12.12. Likely 2/2 quadriparesis/bed bound/immobilization. Plan: - CTM Ca - Consider further hypercalcemia workup if continues to increase #Microcytic anemia Hgb on admission 9.4, baseline 8-9s. Likely anemia of chronic disease 2/2 chronic vegetative state. Plan: - CTM CBC - Recommend outpatient follow up for further management Hospital management: Lines: PIV, PEG, Tracheostomy, Langston Diet: Jevity 1.5 at 30 cc/hr Bowel: Miralax 34 g GT QD and lactulose 10 gm GT BID GI prophylaxis: Lansoprazole 40 mg GT DVT prophylaxis: heparin q12 Disposition: [facility] for IV abx and wound care CODE STATUS: DNR Plan of care discussed with attending Dr. Ashford, and PGY-2 Dr. Randall. Mary Duncan, DO PGY-1 Internal Medicine
[2025-02-12] MEDS: MIDODRINE 5 MG TABLET PO ×2 (14:19→21:01)
[2025-02-12] MEDS: GABAPENTIN 100 MG CAPSULE 300 MG GT ×2 (14:19→21:01)
[2025-02-12] MEDS: BACLOFEN 10 MG TABLET PO ×2 (14:19→20:55)
[2025-02-12] MEDS: ATORVASTATIN CALCIUM 20 MG TABLET 40 MG GT (20:55)
[2025-02-12] MEDS: VANCOMYCIN/WATER 1GM IVPB 200 ML IV (22:09)
[2025-02-13] VITALS (15 sets, daily range): BP systolic 96–136; BP diastolic 54–80; PULSE 72–113; RESP 19–24; TEMP 35.9–36.4; O2SAT 96–100; BMI 16.5
[2025-02-13] MEDS: BACLOFEN 10 MG TABLET PO ×4 (02:05→20:20)
[2025-02-13] MEDS: ALBUTEROL/IPRATROPIUM (Duoneb) RT SOL 3 ML NEBU INH ×6 (02:09→22:34)
[2025-02-13] MEDS: CEFEPIME INJ 2 GM in SODIUM CHLORIDE 0.9% (Popper) 50 ML IV ×3 (05:30→21:34)
[2025-02-13] MEDS: GABAPENTIN 100 MG CAPSULE 300 MG GT ×3 (05:30→21:33)
[2025-02-13] MEDS: MIDODRINE 5 MG TABLET PO ×3 (05:30→21:33)
[2025-02-13 06:12] LABS: Basophils # (Auto) 0.0 Thou/mm3 (0.0-0.2); Basophils % (Auto) 0 % (0-2.5); Eosinophils # (Auto) 0.1 Thou/mm3 (0.0-0.5); Eosinophils % (Auto) 1 % (0-10); Hematocrit 24.7 % (41.0-53.0); Immature Granulocytes Auto 0.02 Thou/mm3 (0.00-0.00); Lymphocytes # (Auto) 1.2 Thou/mm3 (1.0-4.8); Lymphocytes % (Auto) 15 % (10-50); Mean Corpuscular HGB Conc 30.4 g/dl (31.0-37.0); Mean Corpuscular Hemoglobin 25.3 pg (25.0-35.0); Mean Corpuscular Volume 83 fL (80-100); Monocytes # (Auto) 1.2 Thou/mm3 (0.0-0.8); Monocytes % (Auto) 15 % (0-12); Neutrophils # (Auto) 5.4 Thou/mm3 (1.8-7.7); Neutrophils % (Auto) 69 % (37-80); Nucleated Red Blood Cell # 0.00 Thou/mm3 (0.00-0.00); Nucleated Red Blood Cell % 0 /100 WBC (0); Platelet Count 188 Thou/mm3 (140-440); RDW Standard Deviation 71.3 fL (35.1-43.9); Red Blood Count 2.96 Miln/mm3 (4.50-5.90); White Blood Count 7.9 Thou/mm3 (3.8-10.6)
[2025-02-13 06:14] LABS: Hemoglobin 7.5 g/dL (13.5-16.0)
[2025-02-13 06:30] LABS: INR 1.3 (0.9-1.3); Partial Thromboplastin Time 33.4 Seconds (22.0-36.0); Prothrombin Time 14.1 Seconds (9.0-12.2)
[2025-02-13 06:44] LABS: Alanine Aminotransferase 72 U/L (10-49); Albumin, Serum 3.5 gm/dL (3.5-5.0); Albumin/Globulin Ratio 0.9 (1.2-2.2); Alkaline Phosphatase 136 U/L (46-116); Anion Gap 11 (7-16); Aspartate Amino Transferase 41 U/L (0-34); BUN/Creatinine Ratio 33 Ratio (12-20); Bilirubin,Total < 0.2 mg/dL (0.3-1.2); Blood Urea Nitrogen 23 mg/dL (9-23); Calcium 10.6 mg/dL (8.3-10.6); Calcium (Corrected) 11.0 mg/dL (8.5-10.1); Carbon Dioxide 21.7 mMol/L (20.0-31.0); Chloride 109 mMol/L (98-107); Creatinine (Component) 0.7 mg/dL (0.6-1.3); Estimated Creatinine Clearance 122.7 mL/min (>60); Globulin 4.1 gm/dL (2.3-3.5); Glucose 102 mg/dL (74-106); Magnesium 1.5 mg/dL (1.6-2.6); Osmolality,Calculated 286 (275-295); Phosphorous 4.3 mg/dL (2.4-5.1); Potassium 3.7 mMol/L (3.4-5.1); Sodium 142 mMol/L (136-145); Total Protein 7.6 gm/dL (5.7-8.2); eGFR > 60 See Note
[2025-02-13] MEDS: LACTULOSE SYRUP 20 GM/30 ML UDC 10 GM GT (08:10)
[2025-02-13] MEDS: levETIRAcetam LIQD 500 MG/5 ML UDC 1000 MG PO ×2 (08:10→20:20)
[2025-02-13] MEDS: POTASSIUM CHLORIDE 10% 20 MEQ/15 ML UDC GT (08:11)
[2025-02-13] MEDS: LANSOPRAZOLE 30 MG TAB.RAP.DR GT (08:11)
[2025-02-13] MEDS: HEPARIN SOD INJ 5000 UNIT/ML VIAL SC ×2 (08:11→20:21)
[2025-02-13] MEDS: POLYETHYLENE GLYCOL 17 GM PACKET 34 GM GT (08:11)
[2025-02-13] MEDS: Magnesium Sulfate 4 GM Ivpb 4 GM/50 ML BAG IV (08:31)
[2025-02-13] MEDS: VANCOMYCIN/WATER 1GM IVPB 200 ML IV (10:20)
--- NOTE | 2025-02-13 11:58 | PC.SS ---
Meena Carmona is a 29 year old male admitted to [facility] for SIRS+. Patient resides at [facility]. Patient is bedbound, breathing ventilator dependent. In case of an emergency, Sara is his medical decision or father, Nasir ([phone]). When medically clear, patient will return to [facility]. DC plan: return to [facility]. Next of kin: Sara Carmona ([phone]) or Nasir ([phone]).
--- NOTE | 2025-02-13 14:29 | PC.SS ---
Rounding: IV abx, DC plan back to [facility] when stable
--- NOTE | 2025-02-13 18:22 | ESPR_ITS ---
<Statement entered by Beth Ashford MD - 02/14/25 13:28> I attest that I was physically present for the evaluation, physical examination, lab and imaging review of the patient with the residents. I discussed the case with the residents and agree with the findings and plans of care as documented below. At bedside today, patient appears comfortable. Saturating well on blow-by. WBC count has improved to 7.9 from 14.1 yesterday. Hemoglobin noted to have decreased to 7.5 from 9.4 yesterday, likely secondary to hemodilution, no source of active bleeding noted. CT of bilateral knee showed cellulitis of soft tissue subcutaneous fatty tissue surrounding the knee and bilateral knee effusion but no abscess and osteomyelitis. Lactate level has improved, magnesium level noted to be 1.5, potassium 3.7 repleted accordingly. Liver function continues to be stable. Urine culture grew gram-negative rods, blood culture has been negative for more than 24 hours. We will continue with broad-spectrum IV antibiotics and wait for culture results. Wound care have been following for bilateral popliteal wounds. Beth Ashford MD <Statement entered by Trena Randall MD - 02/14/25 13:22> Patient was seen and examined at bedside. I agree on the assessment and plan on this note as documented by resident Mary Duncan DO PGY1. 29-year-old male with past medical history as below admitted for sepsis secondary to cellulitis, currently on IV antibiotics pending blood cultures patient is stable on blow-by. Home medications were resumed, will continue to monitor cultures. Case discussed with attending Dr. Beth Randall MD PGY-2 Documentation for date of: 02/13/25 Subjective Subjective Interval history: No acute overnight events. Patient seen and examined at bedside. Patient is able to open eye spontaneously and track movement. Does not appear to be in distress. Called wound care to determine wound staging however unable to reach. Follow-up iron panel iso mirocytic anemia and a.m. hemoglobin of 7.5. Likely secondary to hemodilution as all CBC values shifted including WBC at now 7.9 from 14.1, however patient has had a history of low hemoglobin of 6.5 in the past. Follow- up PTH isohypercalcemia. INR resolved at 1.3, AST/ALT downtrending. Potassium 3.7, 20 mEq repleted. Urine culture growing gram-negative rods, blood cultures no growth at 24 hours. Exam Vital Signs Temp Pulse Resp BP Pulse Ox O2 Del Method O2 Flow Rate 96.7 F L 87 24 H 136/80 H 98 Blow-by 6 02/13/25 16:00 02/13/25 16:00 02/13/25 16:00 02/13/25 16:00 02/13/25 16:00 02/13/25 16:00 02/13/25 14:13 FiO2 28 02/13/25 14:13 Narrative Exam GENERAL: nonverbal, opens eyes spontaneously, frail HEENT: NC/AT, mucous membranes moist, bilateral sclera anicteric, tracheostomy midline, no bleeding noted around trach, some sputum in the trach tube CARDIOVASCULAR: regular rate and rhythm, S1/S2 present, no murmurs appreciated PULMONARY: clear to auscultation bilaterally, no rales/rhonchi/wheezes ABDOMINAL: soft, non-tender, non-distended, no rebound/guarding, bowel sounds present, PEG tube in place in center of abdomen without eyrthema no purulent drainage, some crusting inside the tube. : Langston cathether in place draining clear urine EXTREMITIES: no peripheral edema, LUE is contorted in interior rotation and flexion of the wrist. SKIN: b/l popliteal fossa leg wounds 4x4 cm with dressings in place with purulent drainage, no evidence of necrosis. Sacral wound, dressed and clean, no purulent drainage noted. R ischium buttock wound, dressed and clean, no purulent drainage noted NEURO: quadraparesis, and nonverbal at baseline with eyes opening spontaneously Objective Labs 02/13/25 05:17 02/13/25 05:17 Labs: Laboratory Results - last 24 hr 02/13/25 05:17 WBC 7.9 D RBC 2.96 L Hgb 7.5 L D Hct 24.7 L MCV 83 MCH 25.3 MCHC 30.4 L RDW Std Deviation 71.3 H Plt Count 188 D Neut % (Auto) 69 Lymph % (Auto) 15 Day % (Auto) 15 H Eos % (Auto) 1 Baso % (Auto) 0 Neut # (Auto) 5.4 Lymph # (Auto) 1.2 Day # (Auto) 1.2 H Eos # (Auto) 0.1 Baso # (Auto) 0.0 Immature Gran # (Auto) 0.02 H Absolute Nucleated RBC 0.00 Immature Gran % 0 Nucleated RBC % 0 PT 14.1 H INR 1.3 APTT 33.4 Sodium 142 Potassium 3.7 D Chloride 109 H Carbon Dioxide 21.7 Anion Gap 11 BUN 23 Creatinine 0.7 Estim Creat Clear Calc 122.7 eGFR > 60 BUN/Creatinine Ratio 33 H Glucose 102 Calculated Osmolality 286 Calcium 10.6 Corrected Calcium 11.0 H Phosphorus 4.3 Magnesium 1.5 L Total Bilirubin < 0.2 L AST 41 H ALT 72 H Alkaline Phosphatase 136 H D Total Protein 7.6 Albumin 3.5 D Globulin 4.1 H Albumin/Globulin Ratio 0.9 L ABG Interpretation ABG results: 02/12/25 04:57 ABG pH 7.47 H ABG pCO2 32 ABG pO2 83 ABG HCO3 23 ABG O2 Saturation 98 ABG Base Excess 0 Quality Measures Quality Measures sepsis Current suspected stage: sepsis Possible source: pulmonary, genitourinary and skin/soft tissue Blood cultures ordered: yes Antibiotic ordered: Yes Assessment & Plan Assessment Current Active Medications: Generic Name Dose Route Start Last Admin Trade Name Freq PRN Reason Stop Dose Admin Acetaminophen 650 mg 02/12/25 08:08 Acetaminophen [place] 325 Mg/10 Ml Udc NG 03/14/25 08:07 Q6H PRN Fever >100.4 or pain Albuterol/Ipratropium 3 ml 02/12/25 11:00 02/13/25 14:11 Albuterol/Ipratropium (Duoneb) Rt [place] 3 Ml Nebu INH 03/14/25 10:59 3 ml Q4HRRT RADHA Administration Albuterol/Ipratropium 3 ml 02/12/25 08:08 Albuterol/Ipratropium (Duoneb) Rt [place] 3 Ml Nebu INH 03/14/25 08:07 Q2HR PRN SHORTNESS OF BREATH OR WHEEZE Atorvastatin Calcium 40 mg 02/12/25 21:00 02/12/25 20:55 Atorvastatin Calcium 20 Mg Tablet GT 03/14/25 20:59 40 mg HS RADHA Administration Baclofen 10 mg 02/12/25 08:30 02/13/25 13:59 Baclofen 10 Mg Tablet PO 03/14/25 08:29 10 mg Q6H RADHA Administration Gabapentin 300 mg 02/12/25 08:30 02/13/25 13:59 Gabapentin 100 Mg Capsule GT 03/14/25 08:29 300 mg TID RADHA Administration Heparin Sodium (Porcine) 5,000 unit 02/12/25 09:00 02/13/25 08:11 Heparin Sod Inj 5000 Unit/Ml Vial SC 02/26/25 08:59 5,000 unit Q12HR RADHA Administration Cefepime HCl 2 gm/ Sodium 50 mls @ 100 mls/hr 02/12/25 08:16 02/13/25 13:59 Chloride IV 02/19/25 08:15 100 mls/hr Q8HR RADHA Administration Vancomycin HCl 200 mls @ 120 mls/hr 02/12/25 22:00 02/13/25 10:20 Vancomycin/Water 1gm Ivpb IV 02/19/25 21:59 120 mls/hr BID@1000,2200 RADHA Administration Protocol Lactulose 10 gm 02/13/25 08:27 Lactulose Syrup 20 Gm/30 Ml Udc GT 03/14/25 08:59 BID PRN CONSTIPATION Protocol Lansoprazole 30 mg 02/12/25 09:00 02/13/25 08:11 Lansoprazole 30 Mg Tab.Rap. GT 03/14/25 08:59 30 mg QDAY RADHA Administration Levetiracetam 1,000 mg 02/12/25 09:00 02/13/25 08:10 Levetiracetam Liqd 500 Mg/5 Ml Udc PO 03/14/25 08:59 1,000 mg BID RADHA Administration Midodrine 5 mg 02/12/25 08:30 02/13/25 14:00 Midodrine 5 Mg Tablet PO 03/14/25 08:29 5 mg TID RADHA Administration Ondansetron HCl 4 mg 02/12/25 08:08 Ondansetron Inj 2 Mg/Ml Inj 2 Ml IVP 03/14/25 08:07 Q6H PRN NAUSEA OR VOMITING Protocol Pharmacy Consult 1 each 02/12/25 04:07 Pharmacy Renal Dose Adjustment 1 Ea XX 03/14/25 04:06 PRN PRN CONSULT Pharmacy Consult 1 each 02/12/25 09:00 Vancomycin Pharmacy To Dose 1 Each Each IV 03/14/25 08:59 QDAY PRN consult Polyethylene Glycol 34 gm 02/12/25 09:00 02/13/25 08:11 Polyethylene Glycol 17 Gm Packet GT 03/14/25 08:59 34 gm QDAY RADHA Administration Plan Meena Carmona is a 29M pmhx significant for 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 #Sepsis 2/2 #Cellulitis of b/l popliteal fossa stage 4 wounds #Sacral and R ischial wounds without purulent drainage #Significant bilateral knee effusions Patient presented with 4/4 SIRS positive, with history of similar previous admissions. On admission ESR 75, lactic acid 2.2->0.9, LDH 278, CRP 9.7, procal 0.56. Likely 2/2 cellulitis of b/l popliteal fossa wounds with purulent drainage, which have been infected previously. UA possible UTI +LE, +nitrites, 4 WBC, 1+ bacteria. CXR shows no lobar pneumonia, suspicious for small left pleural effusion. 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 Plan: - Continue Duonebs q4h scheduled with q2h prn in place - Continue Baclofen 10 mg q6h - Resume home gabapentin 300 mg TID - Resume home Keppra 1g BID - Resume home midodrine 5 mg TID with parameters to hold if SBP >90 #Transaminitis, resolving On admission AST/ALT 50/98, baseline . Component of sepsis, were elevated on previous admission as well. CTAP on 10/2024 show no focal liver lesions. Plan: - CTM LFTs - Consider liver US or further imaging if values remain elevated #Hypercalcemia On admission 11.4 . Patient has hx of hypercalcemia on previous admission 10.3- 12.12. Likely 2/2 quadriparesis/bed bound/immobilization. Plan: - CTM Ca - Consider further hypercalcemia workup if continues to increase - F/u PTH #Microcytic anemia Hgb on admission 9.4, baseline 8-9s. Likely anemia of chronic disease 2/2 chronic vegetative state. Plan: - CTM CBC - Recommend outpatient follow up for further management - F/u iron panel Hospital management: Lines: PIV, PEG, Tracheostomy, Langston Diet: Jevity 1.5 at 30 cc/hr Bowel: Miralax 34 g GT QD and lactulose 10 gm GT BID GI prophylaxis: Lansoprazole 40 mg GT DVT prophylaxis: heparin q12 Disposition: [facility] for IV abx and wound care CODE STATUS: DNR Plan of care discussed with attending Dr. Ashford, and PGY-2 Dr. Randall. Mary Duncan, DO PGY-1 Internal Medicine
[2025-02-13] MEDS: ATORVASTATIN CALCIUM 20 MG TABLET 40 MG GT (20:20)
[2025-02-13 21:19] LABS: Vancomycin,Trough 25.8 mcg/mL (5.0-10.0)
[2025-02-14] VITALS (21 sets, daily range): BP systolic 94–134; BP diastolic 55–92; PULSE 94–158; RESP 16–26; TEMP 36.3–37.5; O2SAT 94–100; BMI 18.3
[2025-02-14] MEDS: ALBUTEROL/IPRATROPIUM (Duoneb) RT SOL 3 ML NEBU INH ×3 (02:48→11:50)
[2025-02-14] MEDS: BACLOFEN 10 MG TABLET PO ×2 (03:04→08:29)
[2025-02-14] MEDS: MIDODRINE 5 MG TABLET PO (05:20)
[2025-02-14] MEDS: GABAPENTIN 100 MG CAPSULE 300 MG GT ×3 (05:21→22:16)
[2025-02-14] MEDS: CEFEPIME INJ 2 GM in SODIUM CHLORIDE 0.9% (Popper) 50 ML IV (05:21)
[2025-02-14] MEDS: POLYETHYLENE GLYCOL 17 GM PACKET 34 GM GT (08:28)
[2025-02-14] MEDS: levETIRAcetam LIQD 500 MG/5 ML UDC 1000 MG PO ×2 (08:28→20:41)
[2025-02-14] MEDS: LANSOPRAZOLE 30 MG TAB.RAP.DR GT (08:29)
[2025-02-14] MEDS: HEPARIN SOD INJ 5000 UNIT/ML VIAL SC ×2 (08:29→20:39)
[2025-02-14 10:23] LABS: Basophils # (Auto) 0.0 Thou/mm3 (0.0-0.2); Basophils % (Auto) 0 % (0-2.5); Eosinophils # (Auto) 0.1 Thou/mm3 (0.0-0.5); Eosinophils % (Auto) 1 % (0-10); Hematocrit 25.0 % (41.0-53.0); Immature Granulocytes Auto 0.03 Thou/mm3 (0.00-0.00); Lymphocytes # (Auto) 1.3 Thou/mm3 (1.0-4.8); Lymphocytes % (Auto) 15 % (10-50); Mean Corpuscular HGB Conc 31.2 g/dl (31.0-37.0); Mean Corpuscular Hemoglobin 25.6 pg (25.0-35.0); Mean Corpuscular Volume 82 fL (80-100); Monocytes # (Auto) 0.9 Thou/mm3 (0.0-0.8); Monocytes % (Auto) 10 % (0-12); Neutrophils # (Auto) 6.3 Thou/mm3 (1.8-7.7); Neutrophils % (Auto) 73 % (37-80); Nucleated Red Blood Cell # 0.00 Thou/mm3 (0.00-0.00); Nucleated Red Blood Cell % 0 /100 WBC (0); Platelet Count 209 Thou/mm3 (140-440); RDW Standard Deviation 70.5 fL (35.1-43.9); Red Blood Count 3.05 Miln/mm3 (4.50-5.90); White Blood Count 8.6 Thou/mm3 (3.8-10.6)
[2025-02-14] MEDS: VANCOMYCIN/NS 500 MG IVPB 100 ML 120 MG IV ×2 (10:42→22:29)
[2025-02-14 10:44] LABS: Iron 50 mcg/dL (65-175); Percent Iron Saturation 20 % (20-55); Total Iron Binding Capacity 243 mcg/dL (250-425); Unsaturated Iron Binding 193 (225-295)
[2025-02-14 10:45] LABS: Hemoglobin 7.8 g/dL (13.5-16.0)
[2025-02-14 10:51] LABS: Alanine Aminotransferase 63 U/L (10-49); Albumin, Serum 3.6 gm/dL (3.5-5.0); Albumin/Globulin Ratio 0.8 (1.2-2.2); Alkaline Phosphatase 154 U/L (46-116); Anion Gap 11 (7-16); Aspartate Amino Transferase 42 U/L (0-34); BUN/Creatinine Ratio 21 Ratio (12-20); Bilirubin,Total < 0.2 mg/dL (0.3-1.2); Blood Urea Nitrogen 15 mg/dL (9-23); Calcium 10.7 mg/dL (8.3-10.6); Calcium (Corrected) 11.0 mg/dL (8.5-10.1); Carbon Dioxide 21.3 mMol/L (20.0-31.0); Chloride 106 mMol/L (98-107); Creatinine (Component) 0.7 mg/dL (0.6-1.3); Estimated Creatinine Clearance 121.5 mL/min (>60); Globulin 4.6 gm/dL (2.3-3.5); Glucose 85 mg/dL (74-106); Magnesium 1.7 mg/dL (1.6-2.6); Osmolality,Calculated 275 (275-295); Parathyroid Hormone Intact 5.7 pg/ml (18.5-88.0); Potassium 4.0 mMol/L (3.4-5.1); Sodium 138 mMol/L (136-145); Total Protein 8.2 gm/dL (5.7-8.2); eGFR > 60 See Note
--- NOTE | 2025-02-14 12:07 | XR_ITS ---
Examination: AP chest single view Technique: AP portable sitting chest single view Date and time: September 06, 2024 1218 hrs., Comparison February 12, 2025 Indications: Abnormal respiratory secretions today. Findings: Suspicious for early bilateral perihilar pneumonia. Normal heart size. The bones are demineralized. Impression: Suspicious for early bilateral perihilar pneumonia.
--- NOTE | 2025-02-14 12:31 | PC.NURSE ---
RR called due to tachycardia and labored breathing. Pt sustaining in the 150s HR.
--- NOTE | 2025-02-14 12:37 | EKG_ITS ---
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
[2025-02-14] MEDS: ACETAMINOPHEN SOL 325 MG/10 ML UDC 650 MG NG (12:45)
[2025-02-14] MEDS: RINGERS LACTATED 500 ML 500 ML 999 ML IV (12:50)
--- NOTE | 2025-02-14 12:55 | PC.NURSE ---
Post rapid response medication given to pt per MD bryan order .Pt tolerated well. Report given to jair DE SOUZA.
[2025-02-14] MEDS: MORPHINE SULF INJ 10 MG/ML VIAL IVP (12:57)
[2025-02-14] MEDS: DEXTROSE 50%-WATER INJ 50 ML SYRINGE 25 ML IVP (12:58)
[2025-02-14 13:02] LABS: Lactate (Lactic Acid) 2.4 mMol/L (0.4-2.0)
[2025-02-14] MEDS: MIDODRINE 5 MG TABLET GT ×2 (13:20→22:18)
[2025-02-14] MEDS: BACLOFEN 10 MG TABLET GT ×2 (13:33→20:41)
[2025-02-14] MEDS: PIPER/TAZO INJ 4.5 GM in SODIUM CHLORIDE 0.9% (POP) 100 ML IV ×2 (13:34→22:18)
[2025-02-14] MEDS: guaiFENesin SYRUP 200 MG/10 ML UDC 100 MG GT ×2 (13:34→22:16)
[2025-02-14 13:46] LABS: Procalcitonin 0.53 ng/ml (0.0-0.49)
[2025-02-14] MEDS: METOPROLOL TARTRATE INJ 1 MG/ML AMP 5 ML 5 MG IVP (14:01)
--- NOTE | 2025-02-14 14:15 | ESPR_ITS ---
<Statement entered by Beth Ashford MD - 02/14/25 22:39> I attest that I was physically present for the evaluation, physical examination, lab and imaging review of the patient with the residents. I discussed the case with the residents and agree with the findings and plans of care as documented above. At bedside this morning, patient noted to attempt to cough, also had copious amount of secretions from blow by, Suctioning was done at bedside. He had rapid response called this afternoon, due to tachycardia in 160s. Was also tachypneic. Blood culture shows GNR in 1 of 2 bottles, possible contamination. Sputum culture, urine culture grew multiple organisms. We will change antibiotics to Zosyn and Vanc to cover all. Resumed home metoprolol. We will monitor closely. Beth Ashford MD <Statement entered by Trena Randall MD - 02/14/25 15:44> Patient was seen and examined at bedside. I agree on the assessment and plan on this note as documented by resident Mary Duncan DO PGY1. Patient seen and examined at bedside, has extensive copious secretions, suctioned at bedside. Will order repeat chest x-ray, sputum does show 3 different species of GNR. Blood culture 1/2 shows GNR, will continue cefepime and vancomycin for now. Will change cefepime to Zosyn considering if patient does not improve. Otherwise patient's respiratory status stable on 6 L blow-by. Patient did have a rapid response later in the day, see rapid note for details and changes were made as documented in the note. Case discussed with attending Dr. Beth Randall MD PGY-2 Documentation for date of: 02/14/25 Subjective Subjective Interval history: No acute overnight events. Patient seen and examined at bedside. Patient is able to track and lift head up on hospital assist team walking in. Not appear to be in pain. Mucus noted inside mouth with brownish copious expectoration through trach. Patient's mouth was suctioned as well as trach suctioned, resulting in coughing. Oral care order placed. Ordered repeat checks x-ray due to aspiration concern with large amount of expectoration suctioned which showed suspicion for early bilateral perihilar pneumonia. 02/10 sputum culture grew proteus mirabilis, Pseudomonas, Klebsiella pneumonia. Negative urine culture and blood culture. 02/11 right knee wound culture shows Staph hyicus and Pseudomonas. Left knee wound culture still preliminary growing GPC and strep dysygalac. 02/12 1 out of 2 blood cultures growing GNR. Preliminary sputum culture GNR x 3. Urine culture grew Klebsiella pneumonia. Continue antibiotics of cefepime and bank. Exam Vital Signs Temp Pulse Resp BP Pulse Ox O2 Del Method O2 Flow Rate 98.7 F 131 H 25 H 123/74 95 Blow-by 6 02/14/25 13:45 02/14/25 14:01 02/14/25 12:00 02/14/25 14:01 02/14/25 12:00 02/14/25 12:00 02/14/25 12:00 FiO2 02/14/25 12:00 Narrative Exam GENERAL: nonverbal, opens eyes spontaneously, frail HEENT: NC/AT, mucous membranes moist, bilateral sclera anicteric, tracheostomy midline, no bleeding noted around trach, some sputum in the trach tube CARDIOVASCULAR: regular rate and rhythm, S1/S2 present, no murmurs appreciated PULMONARY: clear to auscultation bilaterally, no rales/rhonchi/wheezes ABDOMINAL: soft, non-tender, non-distended, no rebound/guarding, bowel sounds present, PEG tube in place in center of abdomen without eyrthema no purulent drainage, some crusting inside the tube. : Langston cathether in place draining clear urine EXTREMITIES: no peripheral edema, LUE is contorted in interior rotation and flexion of the wrist. SKIN: b/l popliteal fossa leg wounds 4x4 cm with dressings in place with purulent drainage, no evidence of necrosis. Sacral wound, dressed and clean, no purulent drainage noted. R ischium buttock wound, dressed and clean, no purulent drainage noted NEURO: quadraparesis, and nonverbal at baseline with eyes opening spontaneously Objective Labs 02/14/25 09:15 02/14/25 09:15 Labs: Laboratory Results - last 24 hr 02/13/25 02/14/25 02/14/25 20:49 09:15 12:55 WBC 8.6 RBC 3.05 L Hgb 7.8 L Hct 25.0 L MCV 82 MCH 25.6 MCHC 31.2 RDW Std Deviation 70.5 H Plt Count 209 Neut % (Auto) 73 Lymph % (Auto) 15 [place] % (Auto) 10 Eos % (Auto) 1 Baso % (Auto) 0 Neut # (Auto) 6.3 Lymph # (Auto) 1.3 [place] # (Auto) 0.9 H Eos # (Auto) 0.1 Baso # (Auto) 0.0 Immature Gran # (Auto) 0.03 H Absolute Nucleated RBC 0.00 Immature Gran % 0 Nucleated RBC % 0 Sodium 138 Potassium 4.0 Chloride 106 Carbon Dioxide 21.3 Anion Gap 11 BUN 15 Creatinine 0.7 Estim Creat Clear Calc 121.5 eGFR > 60 BUN/Creatinine Ratio 21 H Glucose 85 Calculated Osmolality 275 Lactic Acid 2.4 H Calcium 10.7 H Corrected Calcium 11.0 H Magnesium 1.7 Iron 50 L TIBC 243 L Iron Saturation 20 Unsat Iron Binding 193 L Total Bilirubin < 0.2 L AST 42 H ALT 63 H Alkaline Phosphatase 154 H Total Protein 8.2 Albumin 3.6 Globulin 4.6 H Albumin/Globulin Ratio 0.8 L Procalcitonin 0.53 H PTH Intact 5.7 L Vancomycin Trough 25.8 H* ABG Interpretation ABG results: 02/12/25 04:57 ABG pH 7.47 H ABG pCO2 32 ABG pO2 83 ABG HCO3 23 ABG O2 Saturation 98 ABG Base Excess 0 Quality Measures Quality Measures sepsis Current suspected stage: sepsis Possible source: pulmonary, genitourinary and skin/soft tissue Blood cultures ordered: yes Antibiotic ordered: Yes Assessment & Plan Assessment Current Active Medications: Generic Name Dose Route Start Last Admin Trade Name Freq PRN Reason Stop Dose Admin Acetaminophen 650 mg 02/14/25 12:59 Acetaminophen [place] 325 Mg/10 Ml Udc NG 03/14/25 08:07 Q6H PRN Fever >100.4 Albuterol/Ipratropium 3 ml 02/12/25 08:08 Albuterol/Ipratropium (Duoneb) Rt [place] 3 Ml Nebu INH 03/14/25 08:07 Q2HR PRN SHORTNESS OF BREATH OR WHEEZE Atorvastatin Calcium 40 mg 02/12/25 21:00 02/13/25 20:20 Atorvastatin Calcium 20 Mg Tablet GT 03/14/25 20:59 40 mg HS RADHA Administration Baclofen 10 mg 02/14/25 13:03 02/14/25 13:33 Baclofen 10 Mg Tablet GT 03/14/25 08:29 10 mg Q6H RADHA Administration Gabapentin 300 mg 02/12/25 08:30 02/14/25 13:34 Gabapentin 100 Mg Capsule GT 03/14/25 08:29 300 mg TID RADHA Administration Guaifenesin 100 mg 02/14/25 14:00 02/14/25 13:34 Guaifenesin Syrup 200 Mg/10 Ml Udc GT 03/16/25 13:59 100 mg TID RADHA Administration Protocol Heparin Sodium (Porcine) 5,000 unit 02/12/25 09:00 02/14/25 08:29 Heparin Sod Inj 5000 Unit/Ml Vial SC 02/26/25 08:59 5,000 unit Q12HR RADHA Administration Vancomycin/Sodium Chloride 100 mls @ 120 mls/hr 02/14/25 10:00 02/14/25 10:42 Vancomycin/Ns 500 Mg Ivpb IV 02/21/25 09:59 120 mls/hr Q12H RADHA Administration Protocol Piperacillin Sod/Tazobactam 100 mls @ 200 mls/hr 02/14/25 14:00 02/14/25 13:34 Sod 4.5 gm/ Sodium Chloride IV 02/21/25 13:59 200 mls/hr Q8HR RADHA Administration Ipratropium [place] 0.5 mg 02/14/25 13:00 Ipratropium Rt 0.5 Mg/ 2.5 Ml Nebu INH 03/16/25 12:59 Q6HRRT RADHA Lactulose 10 gm 02/13/25 08:27 Lactulose Syrup 20 Gm/30 Ml Udc GT 03/14/25 08:59 BID PRN CONSTIPATION Protocol Lansoprazole 30 mg 02/12/25 09:00 02/14/25 08:29 Lansoprazole 30 Mg Tab.Rap. GT 03/14/25 08:59 30 mg QDAY RADHA Administration Levalbuterol HCl 1.25 mg 02/14/25 13:00 Levalbuterol Rt 1.25 Mg/0.5 Ml Nebu INH 03/16/25 12:59 Q6HRRT RADHA Levetiracetam 1,000 mg 02/12/25 09:00 02/14/25 08:28 Levetiracetam Liqd 500 Mg/5 Ml Udc PO 03/14/25 08:59 1,000 mg BID RADHA Administration Metoprolol Tartrate 100 mg 02/14/25 21:00 Metoprolol Tartrate 25 Mg Tablet GT 03/16/25 20:59 BID RADHA Midodrine 5 mg 02/14/25 13:04 02/14/25 13:20 Midodrine 5 Mg Tablet GT 03/14/25 08:29 5 mg TID RADHA Administration Morphine Sulfate 2 mg 02/14/25 12:59 Morphine Sulf Liqd 10 Mg/5 Ml Udc GT 02/19/25 13:59 TID PRN Pain or Discomfort Ondansetron HCl 4 mg 02/12/25 08:08 Ondansetron Inj 2 Mg/Ml Inj 2 Ml IVP 03/14/25 08:07 Q6H PRN NAUSEA OR VOMITING Protocol Pharmacy Consult 1 each 02/12/25 04:07 Pharmacy Renal Dose Adjustment 1 Ea XX 03/14/25 04:06 PRN PRN CONSULT Pharmacy Consult 1 each 02/12/25 09:00 Vancomycin Pharmacy To Dose 1 Each Each IV 03/14/25 08:59 QDAY PRN consult Polyethylene Glycol 34 gm 02/12/25 09:00 02/14/25 08:28 Polyethylene Glycol 17 Gm Packet GT 03/14/25 08:59 34 gm QDAY RADHA Administration Sodium Chloride 3 ml 02/14/25 12:56 Sodium Chloride Rt [place] 0.9% 3 Ml Nebu INH 03/16/25 12:55 PRN PRN SOLN Plan Meena Carmona is a 29M pmhx significant for 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 #Sepsis 2/2 #R popliteal fossa cellulitis, Staphylococcus hyicus, Pseudomonas aeruginosa and #L popliteal fossa cellulitis, GPC and strep gysgalac #UTI, Klebsiella pneumoniae #URI, Proteus mirabilis, Pseudomonas aeruginosa, Klebsiella pneumoniae Patient presented with 4/4 SIRS positive, with history of similar previous admissions. On admission ESR 75, lactic acid 2.2->0.9, LDH 278, CRP 9.7, procal 0.56. Likely 2/2 cellulitis of b/l popliteal fossa wounds with purulent drainage, which have been infected previously. UA shows UTI +LE, +nitrites, 4 WBC, 1+ bacteria. CXR shows no lobar pneumonia, suspicious for small left pleural effusion. CT bilateral lower extremity shows significant bilateral knee effusions, cellulitis pattern and soft tissue subcutaneous fatty tissue surrounding the knees, no soft tissue abscess negative for osteomyelitis 02/10 sputum culture proteus mirabilis, Pseudomonas, Klebsiella pneumonia. Neg BCx and UCx 02/11 R knee wound culture shows Staph hyicus and Pseudomonas. L knee wound culture still preliminary growing GPC and strep dysygalac. 02/12 1/ BCx growing GNR. Preliminary sputum Cx GNR x 3. 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 Plan: - Continue Duonebs q4h scheduled with q2h prn in place - Continue Baclofen 10 mg q6h - Resume home gabapentin 300 mg TID - Resume home Keppra 1g BID - Resume home midodrine 5 mg TID with parameters to hold if SBP >90 - Continue wound care #Transaminitis, resolving On admission AST/ALT 50/98, baseline . Component of sepsis, were elevated on previous admission as well. CTAP on 10/2024 show no focal liver lesions. Plan: - CTM LFTs - Consider liver US or further imaging if values remain elevated #Hypercalcemia On admission 11.4 . Patient has hx of hypercalcemia on previous admission 10.3- 12.12. Likely 2/2 quadriparesis/bed bound/immobilization. PTH low 5.7 with appropriate response to hypercalcemia. Plan: - CTM Ca - Consider further hypercalcemia workup if continues to increase #Microcytic anemia Hgb on admission 9.4, baseline 8-9s. Likely anemia of chronic disease 2/2 chronic vegetative state. 12/20/24 peripheral smear shows severe hypochromic microcytic anemia without hemolysis favoring iron deficiency state.iron panel: iron low 50, TIBC low 243, iron sat wnl, unsat iron binding low 193. Plan: - CTM CBC - Recommend outpatient follow up and oral iron repletion for further management Hospital management: Lines: PIV, PEG, Tracheostomy, Langston Diet: Jevity 1.5 at 30 cc/hr Bowel: Miralax 34 g GT QD and lactulose 10 gm GT prn GI prophylaxis: Lansoprazole 40 mg GT DVT prophylaxis: heparin q12 Disposition: med [facility] for IV abx and wound care CODE STATUS: DNR Plan of care discussed with attending Dr. Ashford, and PGY-2 Dr. Randall. Mary Duncan, DO PGY-1 Internal Medicine
[2025-02-14] MEDS: IPRATROPIUM RT 0.5 MG/ 2.5 ML NEBU INH ×2 (14:55→18:44)
[2025-02-14] MEDS: LEVALBUTEROL RT 1.25 MG/0.5 ML NEBU INH ×2 (14:55→18:44)
--- NOTE | 2025-02-14 14:56 | PC.SS ---
Rounding: [employer] called today, upgraded from MT to TELE level, on IV ABX and wound care. DC plan back to [facility]
--- NOTE | 2025-02-14 15:00 | PD.RESEVENT ---
Documentation for date of: 02/14/25 Event Note Event Note: Rapid Response Room: 364 Time: 12:34 PM Reason for Call: Tachycardia HR 140 Patient presentation: Patient heart rate noted to be in the range 140-160, patient tachypneic and diaphoretic, abdominal muscle accessory muscle use for breathing. Saturating well on 6 L blow-by, seems to be in some pain/distress. Earlier this morning patient noted to have excessive secretions chest x-ray was ordered showed suspicion of early hilar pneumonia. Patient noted to be SIRS positive. Events: EKG obtained, likely consistent with sinus tachycardia, extensive artifact noted on EKG. Bedside blood glucose 68 Assessment: On assessment patient has accessory muscle use, PEG tube needed to be flushed, patient diaphoretic. New orders: Dextrose 50%, 25 cc, fingerstick every 6 hours, continue tube feeds, maintain adequate PEG tube care. Metoprolol tartrate 5 mg IV push x 1, resume home dose metoprolol tartrate with hold parameters. Magnesium repleted this morning. 500 cc bolus LR, obtain lactate and repeat Pro-Jame. Antibiotics switched from cefepime to Zosyn for broader coverage, per past cultures. Breathing treatments switched from DuoNeb to levalbuterol and ipratropium, ordered chest physiotherapy twice daily with chest vest. Will give morphine 1 mg IV push x 1, resumed oral morphine 3 times daily as needed for pain/discomfort Will consider further sepsis workup, will follow up labs. Case discussed with Attending Physician Dr. Beth Randall MD Internal Medicine PGY-2 Disclaimer: This note was dictated by speech recognition. Minor errors in band ripsaw operator may be present due to voice recognition software.
[2025-02-14 15:57] LABS: Reflex Lactate? Y
[2025-02-14] MEDS: METOPROLOL TARTRATE 25 MG TABLET PO (16:07)
[2025-02-14] MEDS: SODIUM CHLORIDE 0.9% 1000 ML 1,000 ML 999 ML IV (16:08)
[2025-02-14 16:31] LABS: Lactic Acid, 3 HR 2.1 mMol/L (0.4-2.0)
[2025-02-14] MEDS: Magnesium Sulfate 4 GM Ivpb 4 GM/50 ML BAG IV (17:25)
[2025-02-14] MEDS: ATORVASTATIN CALCIUM 20 MG TABLET 40 MG GT (20:41)
[2025-02-14] MEDS: METOPROLOL TARTRATE 25 MG TABLET 100 MG GT (20:42)
[2025-02-15] VITALS (17 sets, daily range): BP systolic 98–118; BP diastolic 54–76; PULSE 60–110; RESP 19–31; TEMP 36.2–37.2; O2SAT 88–100; BMI 16.5; BMI 16.2
[2025-02-15] MEDS: LEVALBUTEROL RT 1.25 MG/0.5 ML NEBU INH ×4 (00:17→18:55)
[2025-02-15] MEDS: IPRATROPIUM RT 0.5 MG/ 2.5 ML NEBU INH ×4 (00:17→18:54)
[2025-02-15] MEDS: BACLOFEN 10 MG TABLET GT ×4 (03:04→20:17)
[2025-02-15] MEDS: PIPER/TAZO INJ 4.5 GM in SODIUM CHLORIDE 0.9% (POP) 100 ML IV ×3 (05:08→22:07)
[2025-02-15] MEDS: GABAPENTIN 100 MG CAPSULE 300 MG GT ×3 (05:13→22:01)
[2025-02-15] MEDS: guaiFENesin SYRUP 200 MG/10 ML UDC 100 MG GT ×3 (05:13→22:03)
[2025-02-15] MEDS: MIDODRINE 5 MG TABLET GT ×3 (05:13→22:01)
[2025-02-15 06:26] LABS: Basophils # (Auto) 0.0 Thou/mm3 (0.0-0.2); Basophils % (Auto) 0 % (0-2.5); Eosinophils # (Auto) 0.1 Thou/mm3 (0.0-0.5); Eosinophils % (Auto) 1 % (0-10); Hematocrit 25.5 % (41.0-53.0); Immature Granulocytes Auto 0.03 Thou/mm3 (0.00-0.00); Lymphocytes # (Auto) 1.3 Thou/mm3 (1.0-4.8); Lymphocytes % (Auto) 17 % (10-50); Mean Corpuscular HGB Conc 31.0 g/dl (31.0-37.0); Mean Corpuscular Hemoglobin 25.5 pg (25.0-35.0); Mean Corpuscular Volume 82 fL (80-100); Monocytes # (Auto) 1.1 Thou/mm3 (0.0-0.8); Monocytes % (Auto) 15 % (0-12); Neutrophils # (Auto) 5.1 Thou/mm3 (1.8-7.7); Neutrophils % (Auto) 67 % (37-80); Nucleated Red Blood Cell # 0.00 Thou/mm3 (0.00-0.00); Nucleated Red Blood Cell % 0 /100 WBC (0); Platelet Count 216 Thou/mm3 (140-440); RDW Standard Deviation 70.7 fL (35.1-43.9); Red Blood Count 3.10 Miln/mm3 (4.50-5.90); White Blood Count 7.6 Thou/mm3 (3.8-10.6)
[2025-02-15 06:27] LABS: Hemoglobin 7.9 g/dL (13.5-16.0)
[2025-02-15 06:45] LABS: Alanine Aminotransferase 50 U/L (10-49); Albumin, Serum 3.6 gm/dL (3.5-5.0); Albumin/Globulin Ratio 0.8 (1.2-2.2); Alkaline Phosphatase 153 U/L (46-116); Anion Gap 11 (7-16); Aspartate Amino Transferase 43 U/L (0-34); BUN/Creatinine Ratio 21 Ratio (12-20); Bilirubin,Total 0.2 mg/dL (0.3-1.2); Blood Urea Nitrogen 19 mg/dL (9-23); Calcium 10.8 mg/dL (8.3-10.6); Calcium (Corrected) 11.1 mg/dL (8.5-10.1); Carbon Dioxide 22.9 mMol/L (20.0-31.0); Chloride 107 mMol/L (98-107); Creatinine (Component) 0.9 mg/dL (0.6-1.3); Estimated Creatinine Clearance 95.8 mL/min (>60); Globulin 4.4 gm/dL (2.3-3.5); Glucose 75 mg/dL (74-106); Magnesium 2.6 mg/dL (1.6-2.6); Osmolality,Calculated 282 (275-295); Potassium 3.6 mMol/L (3.4-5.1); Sodium 141 mMol/L (136-145); Total Protein 8.0 gm/dL (5.7-8.2); eGFR > 60 See Note
[2025-02-15] MEDS: POLYETHYLENE GLYCOL 17 GM PACKET 34 GM GT (08:00)
[2025-02-15] MEDS: levETIRAcetam LIQD 500 MG/5 ML UDC 1000 MG PO ×2 (08:00→20:17)
[2025-02-15] MEDS: LANSOPRAZOLE 30 MG TAB.RAP.DR GT (08:00)
[2025-02-15] MEDS: HEPARIN SOD INJ 5000 UNIT/ML VIAL SC ×2 (08:00→20:12)
[2025-02-15] MEDS: METOPROLOL TARTRATE 25 MG TABLET 100 MG GT ×2 (08:08→20:18)
[2025-02-15 09:17] LABS: Lactate (Lactic Acid) 0.9 mMol/L (0.4-2.0)
--- NOTE | 2025-02-15 09:39 | PC.SS ---
Follow up note: Pt is septic. On IV antibiotic. Pt is from [facility] and will return upon d.c.
[2025-02-15] MEDS: VANCOMYCIN/NS 500 MG IVPB 100 ML 120 MG IV (09:40)
--- NOTE | 2025-02-15 10:12 | ESPR_ITS ---
<Statement entered by Trena Randall MD - 02/15/25 17:16> Patient was seen and examined at bedside. I agree on the assessment and plan on this note as documented by resident Nomi Perea DO PGY1. 29-year-old male with past medical history as below, will continue Zosyn and vancomycin discontinued, started on clindamycin. Continue wound care per wound care nurse recommendations. Patient's heart rate has improved, continue home dose metoprolol. Lactate down trended significantly. Patient has 1/2 GNR, pending speciation, if continues to improve clinically we will consider discharge in the next 24 to 48 hours. Case discussed with attending Dr. Vianey Jackson MD PGY-2 Documentation for date of: 02/15/25 Subjective Subjective Interval history: Overnight events: No acute events overnight. Patient was seen and examined at bedside. AM vitals and labs reviewed. Breathing comfortably on Blow-by. Vitals stable except for elevated RR of 24. Patient continues to have episodes of coughing. Suctioned clear sputum from oropharynx. Drainage from trach tube appears white compared to brown yesterday. Cefepime transitioned to Zosyn yesterday. Continuing vancomycin. Started metoprolol daily and morphine sulfate as needed. Sputum culture collected 02/12 grows Proteus mirabilis and Pseudomonas aeruginosa. Blood culture collected 02/12 grows gram-negative rods from 1 bottle. Left knee wound culture collected 02/11 grows MRSA and GBS. Right knee wound culture collected 02/11 grows Staphylococcus hyicus and Pseudomonas aeruginosa. Changed vancomycin to clindamycin. Changed duonebs to ipratropium 0.5 mg every 6 hours and levalbuterol 1.25 mg every 6 hours. Review of systems otherwise negative except for what is mentioned above. Exam Vital Signs Temp Pulse Resp BP Pulse Ox O2 Del Method O2 Flow Rate 97.4 F 105 H 20 111/65 100 Blow-by 6 02/15/25 07:54 02/15/25 08:25 02/15/25 08:25 02/15/25 08:08 02/15/25 08:25 02/15/25 07:54 02/15/25 08:25 FiO2 28 02/15/25 08:25 Narrative Exam GENERAL: nonverbal, opens eyes spontaneously, frail HEENT: NC/AT, mucous membranes moist, bilateral sclera anicteric, tracheostomy midline, no bleeding noted around trach, some sputum in the trach tube CARDIOVASCULAR: regular rate and rhythm, S1/S2 present, no murmurs appreciated PULMONARY: clear to auscultation bilaterally, no rales/rhonchi/wheezes ABDOMINAL: soft, non-tender, non-distended, no rebound/guarding, bowel sounds present, PEG tube in place in center of abdomen without eyrthema no purulent drainage, some crusting inside the tube. : Langston cathether in place draining clear urine EXTREMITIES: no peripheral edema, LUE is contorted in interior rotation and flexion of the wrist. SKIN: b/l popliteal fossa leg wounds 4x4 cm with dressings in place with purulent drainage, no evidence of necrosis. Sacral wound, dressed and clean, no purulent drainage noted. R ischium buttock wound, dressed and clean, no purulent drainage noted NEURO: quadraparesis, and nonverbal at baseline with eyes opening spontaneously Objective Labs 02/15/25 04:24 02/15/25 04:24 Labs: Laboratory Results - last 24 hr 02/14/25 02/14/25 02/14/25 09:15 12:55 16:20 WBC 8.6 RBC 3.05 L Hgb 7.8 L Hct 25.0 L MCV 82 MCH 25.6 MCHC 31.2 RDW Std Deviation 70.5 H Plt Count 209 Neut % (Auto) 73 Lymph % (Auto) 15 [place] % (Auto) 10 Eos % (Auto) 1 Baso % (Auto) 0 Neut # (Auto) 6.3 Lymph # (Auto) 1.3 [place] # (Auto) 0.9 H Eos # (Auto) 0.1 Baso # (Auto) 0.0 Immature Gran # (Auto) 0.03 H Absolute Nucleated RBC 0.00 Immature Gran % 0 Nucleated RBC % 0 Sodium 138 Potassium 4.0 Chloride 106 Carbon Dioxide 21.3 Anion Gap 11 BUN 15 Creatinine 0.7 Estim Creat Clear Calc 121.5 eGFR > 60 BUN/Creatinine Ratio 21 H Glucose 85 Calculated Osmolality 275 Lactic Acid 2.4 H 2.1 H Calcium 10.7 H Corrected Calcium 11.0 H Magnesium 1.7 Iron 50 L TIBC 243 L Iron Saturation 20 Unsat Iron Binding 193 L Total Bilirubin < 0.2 L AST 42 H ALT 63 H Alkaline Phosphatase 154 H Total Protein 8.2 Albumin 3.6 Globulin 4.6 H Albumin/Globulin Ratio 0.8 L Procalcitonin 0.53 H PTH Intact 5.7 L 02/15/25 02/15/25 04:24 09:10 WBC 7.6 RBC 3.10 L Hgb 7.9 L Hct 25.5 L MCV 82 MCH 25.5 MCHC 31.0 RDW Std Deviation 70.7 H Plt Count 216 Neut % (Auto) 67 Lymph % (Auto) 17 [place] % (Auto) 15 H Eos % (Auto) 1 Baso % (Auto) 0 Neut # (Auto) 5.1 Lymph # (Auto) 1.3 [place] # (Auto) 1.1 H Eos # (Auto) 0.1 Baso # (Auto) 0.0 Immature Gran # (Auto) 0.03 H Absolute Nucleated RBC 0.00 Immature Gran % 0 Nucleated RBC % 0 Sodium 141 Potassium 3.6 Chloride 107 Carbon Dioxide 22.9 Anion Gap 11 BUN 19 Creatinine 0.9 Estim Creat Clear Calc 95.8 eGFR > 60 BUN/Creatinine Ratio 21 H Glucose 75 Calculated Osmolality 282 Lactic Acid 0.9 Calcium 10.8 H Corrected Calcium 11.1 H Magnesium 2.6 Iron TIBC Iron Saturation Unsat Iron Binding Total Bilirubin 0.2 L AST 43 H ALT 50 H Alkaline Phosphatase 153 H Total Protein 8.0 Albumin 3.6 Globulin 4.4 H Albumin/Globulin Ratio 0.8 L Procalcitonin PTH Intact ABG Interpretation ABG results: 02/12/25 04:57 ABG pH 7.47 H ABG pCO2 32 ABG pO2 83 ABG HCO3 23 ABG O2 Saturation 98 ABG Base Excess 0 Quality Measures Quality Measures sepsis Current suspected stage: sepsis Possible source: pulmonary, genitourinary and skin/soft tissue Blood cultures ordered: yes Antibiotic ordered: Yes Assessment & Plan Assessment Current Active Medications: Generic Name Dose Route Start Last Admin Trade Name Freq PRN Reason Stop Dose Admin Acetaminophen 650 mg 02/14/25 12:59 Acetaminophen [place] 325 Mg/10 Ml Udc NG 03/14/25 08:07 Q6H PRN Fever >100.4 Albuterol/Ipratropium 3 ml 02/12/25 08:08 Albuterol/Ipratropium (Duoneb) Rt [place] 3 Ml Nebu INH 03/14/25 08:07 Q2HR PRN SHORTNESS OF BREATH OR WHEEZE Atorvastatin Calcium 40 mg 02/12/25 21:00 02/14/25 20:41 Atorvastatin Calcium 20 Mg Tablet GT 03/14/25 20:59 40 mg HS RADHA Administration Baclofen 10 mg 02/14/25 13:03 02/15/25 07:57 Baclofen 10 Mg Tablet GT 03/14/25 08:29 10 mg Q6H RADHA Administration Gabapentin 300 mg 02/12/25 08:30 02/15/25 05:13 Gabapentin 100 Mg Capsule GT 03/14/25 08:29 300 mg TID RADHA Administration Guaifenesin 100 mg 02/14/25 14:00 02/15/25 05:13 Guaifenesin Syrup 200 Mg/10 Ml Udc 03/16/25 13:59 100 mg TID RADHA Administration Protocol Heparin Sodium (Porcine) 5,000 unit 02/12/25 09:00 02/15/25 08:00 Heparin Sod Inj 5000 Unit/Ml Vial SC 02/26/25 08:59 5,000 unit Q12HR RADHA Administration Vancomycin/Sodium Chloride 100 mls @ 120 mls/hr 02/14/25 10:00 02/15/25 09:40 Vancomycin/Ns 500 Mg Ivpb IV 02/21/25 09:59 120 mls/hr Q12H RADHA Administration Protocol Piperacillin Sod/Tazobactam 100 mls @ 200 mls/hr 02/14/25 14:00 02/15/25 05:08 Sod 4.5 gm/ Sodium Chloride IV 02/21/25 13:59 200 mls/hr Q8HR RADHA Administration Ipratropium [place] 0.5 mg 02/14/25 13:00 02/15/25 08:24 Ipratropium Rt 0.5 Mg/ 2.5 Ml Nebu INH 03/16/25 12:59 0.5 mg Q6HRRT RADHA Administration Lactulose 10 gm 02/13/25 08:27 Lactulose Syrup 20 Gm/30 Ml Udc 03/14/25 08:59 BID PRN CONSTIPATION Protocol Lansoprazole 30 mg 02/12/25 09:00 02/15/25 08:00 Lansoprazole 30 Mg Tab.Yossi. GT 03/14/25 08:59 30 mg QDAY RADHA Administration Levalbuterol HCl 1.25 mg 02/14/25 13:00 02/15/25 08:24 Levalbuterol Rt 1.25 Mg/0.5 Ml Nebu INH 03/16/25 12:59 1.25 mg Q6HRRT RADHA Administration Levetiracetam 1,000 mg 02/12/25 09:00 02/15/25 08:00 Levetiracetam Liqd 500 Mg/5 Ml Udc PO 03/14/25 08:59 1,000 mg BID RADHA Administration Metoprolol Tartrate 100 mg 02/14/25 21:00 02/15/25 08:08 Metoprolol Tartrate 25 Mg Tablet GT 03/16/25 20:59 100 mg BID RADHA Administration Midodrine 5 mg 02/14/25 13:04 02/15/25 05:13 Midodrine 5 Mg Tablet GT 03/14/25 08:29 5 mg TID RADHA Administration Morphine Sulfate 2 mg 02/14/25 12:59 Morphine Sulf Liqd 10 Mg/5 Ml Udc GT 02/19/25 13:59 TID PRN Pain or Discomfort Ondansetron HCl 4 mg 02/12/25 08:08 Ondansetron Inj 2 Mg/Ml Inj 2 Ml IVP 03/14/25 08:07 Q6H PRN NAUSEA OR VOMITING Protocol Pharmacy Consult 1 each 02/12/25 04:07 Pharmacy Renal Dose Adjustment 1 Ea XX 03/14/25 04:06 PRN PRN CONSULT Pharmacy Consult 1 each 02/12/25 09:00 Vancomycin Pharmacy To Dose 1 Each Each IV 03/14/25 08:59 QDAY PRN consult Polyethylene Glycol 34 gm 02/12/25 09:00 02/15/25 08:00 Polyethylene Glycol 17 Gm Packet GT 03/14/25 08:59 34 gm QDAY RADHA Administration Sodium Chloride 3 ml 02/14/25 12:56 Sodium Chloride Rt [place] 0.9% 3 Ml Nebu INH 03/16/25 12:55 PRN PRN SOLN Plan Meean Carmona is a 29M pmhx significant for 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 #Sepsis 2/2 #R popliteal fossa cellulitis, Staphylococcus hyicus, Pseudomonas aeruginosa and #L popliteal fossa cellulitis, MRSA and strep gysgalac #UTI, Klebsiella pneumoniae #URI, Proteus mirabilis, Pseudomonas aeruginosa, Klebsiella pneumoniae Patient presented with 4/4 SIRS positive, with history of similar previous admissions. On admission ESR 75, lactic acid 2.2->0.9, LDH 278, CRP 9.7, procal 0.56. Likely 2/2 cellulitis of b/l popliteal fossa wounds with purulent drainage, which have been infected previously. UA shows UTI +LE, +nitrites, 4 WBC, 1+ bacteria. CXR shows no lobar pneumonia, suspicious for small left pleural effusion. CT bilateral lower extremity shows significant bilateral knee effusions, cellulitis pattern and soft tissue subcutaneous fatty tissue surrounding the knees, no soft tissue abscess negative for osteomyelitis 02/10 sputum culture proteus mirabilis, Pseudomonas, Klebsiella pneumonia. Neg BCx and UCx 02/11 R knee wound culture shows Staph hyicus and Pseudomonas. L knee wound culture shows MRSA and GBS. 02/12 1/2 BCx growing GNR. Suputum culture shows Proteus mirabilis and Pseudomonas aeruginosa. 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 Plan: - Ipratropium 0.5 mg q6h - Levalbuterol 1.25 mg q6h - Continue Baclofen 10 mg q6h - Resume home gabapentin 300 mg TID - Resume home Keppra 1g BID - Resume home midodrine 5 mg TID with parameters to hold if SBP >160 - Continue wound care #Transaminitis, resolving On admission AST/ALT 50/98, baseline . Component of sepsis, were elevated on previous admission as well. CTAP on 10/2024 show no focal liver lesions. Plan: - CTM LFTs - Consider liver US or further imaging if values remain elevated #Hypercalcemia On admission 11.4 . Patient has hx of hypercalcemia on previous admission 10.3- 12.12. Likely 2/2 quadriparesis/bed bound/immobilization. PTH low 5.7 with appropriate response to hypercalcemia. Plan: - CTM Ca - Consider further hypercalcemia workup if continues to increase #Microcytic anemia Hgb on admission 9.4, baseline 8-9s. Likely anemia of chronic disease 2/2 chronic vegetative state. 12/20/24 peripheral smear shows severe hypochromic microcytic anemia without hemolysis favoring iron deficiency state.iron panel: iron low 50, TIBC low 243, iron sat wnl, unsat iron binding low 193. Plan: - CTM CBC - Recommend outpatient follow up and oral iron repletion for further management Hospital management: Lines: PIV, PEG, Tracheostomy, Langston Diet: Jevity 1.5 at 30 cc/hr Bowel: Miralax 34 g GT QD and lactulose 10 gm GT prn GI prophylaxis: Lansoprazole 40 mg GT DVT prophylaxis: heparin q12 Disposition: [facility] for IV abx and wound care CODE STATUS: DNR Plan of care discussed with attending Dr. Bernard, and PGY-2 Dr. Randall. Nomi Perea DO PGY-1 Internal Medicine Attending Provider Attestation/Addendum Fozia, Vianey Bernard DO, attest that I was physically present for the martinez portions of the service and evaluated the patient with the resident and I reviewed and discussed the case with the resident and agree with the resident's findings and plans of care as documented above Patient seen and evaluated this AM. Patient appears to be at baseline and awake. He continues to have copious secretions from blow by. Popliteal wounds appear to be draining serous fluid. Case discussed with wound nurse. Swelling of b/l knees is reportedly improved, but large knee effusions noted on scan, may need aspiration of knee. Will consult ortho. However, source of infection more likely pulmonary. Continue with zosyn for coverage of klebsiella in urine, proteus and pseudomonas in sputum. Bcx positive for GNR, pending final c/s. cultures from popliteal wound are positive for Group G strep and MRSA, will dc vanc and switch to clindamycin. ESR on admission improved compared to previous admission. Patient also has stage 4 sacral decubitus wound.
[2025-02-15] MEDS: CLINDAMYCIN/NS 600 MG IVPB 600 MG/50 ML BAG 100 MG IV ×2 (17:59→22:06)
[2025-02-15] MEDS: SODIUM CHLORIDE RT SOL 0.9% 3 ML NEBU INH (18:54)
[2025-02-15] MEDS: ATORVASTATIN CALCIUM 20 MG TABLET 40 MG GT (20:17)
[2025-02-15 22:02] LABS: Vancomycin,Trough 12.7 mcg/mL (5.0-10.0)
[2025-02-16] VITALS (17 sets, daily range): BP systolic 95–120; BP diastolic 60–74; PULSE 60–102; RESP 13–27; TEMP 36.2–36.6; O2SAT 98–100; BMI 16.5
[2025-02-16] MEDS: BACLOFEN 10 MG TABLET GT ×4 (00:17→21:16)
[2025-02-16] MEDS: LEVALBUTEROL RT 1.25 MG/0.5 ML NEBU INH ×4 (02:16→18:41)
[2025-02-16] MEDS: IPRATROPIUM RT 0.5 MG/ 2.5 ML NEBU INH ×4 (02:16→18:41)
[2025-02-16] MEDS: CLINDAMYCIN/NS 600 MG IVPB 600 MG/50 ML BAG 100 MG IV ×3 (05:26→21:13)
[2025-02-16] MEDS: MIDODRINE 5 MG TABLET GT ×3 (05:28→21:15)
[2025-02-16] MEDS: guaiFENesin SYRUP 200 MG/10 ML UDC 100 MG GT ×3 (05:28→21:16)
[2025-02-16] MEDS: GABAPENTIN 100 MG CAPSULE 300 MG GT ×3 (05:29→21:16)
[2025-02-16] MEDS: PIPER/TAZO INJ 4.5 GM in SODIUM CHLORIDE 0.9% (POP) 100 ML IV ×3 (05:35→21:12)
[2025-02-16 06:10] LABS: Basophils # (Auto) 0.0 Thou/mm3 (0.0-0.2); Basophils % (Auto) 0 % (0-2.5); Eosinophils # (Auto) 0.1 Thou/mm3 (0.0-0.5); Eosinophils % (Auto) 2 % (0-10); Hematocrit 22.6 % (41.0-53.0); Immature Granulocytes Auto 0.02 Thou/mm3 (0.00-0.00); Lymphocytes # (Auto) 1.1 Thou/mm3 (1.0-4.8); Lymphocytes % (Auto) 14 % (10-50); Mean Corpuscular HGB Conc 31.4 g/dl (31.0-37.0); Mean Corpuscular Hemoglobin 25.9 pg (25.0-35.0); Mean Corpuscular Volume 83 fL (80-100); Monocytes # (Auto) 1.0 Thou/mm3 (0.0-0.8); Monocytes % (Auto) 12 % (0-12); Neutrophils # (Auto) 5.9 Thou/mm3 (1.8-7.7); Neutrophils % (Auto) 72 % (37-80); Nucleated Red Blood Cell # 0.00 Thou/mm3 (0.00-0.00); Nucleated Red Blood Cell % 0 /100 WBC (0); Platelet Count 207 Thou/mm3 (140-440); RDW Standard Deviation 71.3 fL (35.1-43.9); Red Blood Count 2.74 Miln/mm3 (4.50-5.90); White Blood Count 8.2 Thou/mm3 (3.8-10.6)
[2025-02-16 06:11] LABS: Hemoglobin 7.1 g/dL (13.5-16.0)
[2025-02-16 06:42] LABS: Alanine Aminotransferase 39 U/L (10-49); Albumin, Serum 3.3 gm/dL (3.5-5.0); Albumin/Globulin Ratio 0.8 (1.2-2.2); Alkaline Phosphatase 137 U/L (46-116); Anion Gap 10 (7-16); Aspartate Amino Transferase 34 U/L (0-34); BUN/Creatinine Ratio 30 Ratio (12-20); Bilirubin,Total < 0.2 mg/dL (0.3-1.2); Blood Urea Nitrogen 21 mg/dL (9-23); Calcium 10.3 mg/dL (8.3-10.6); Calcium (Corrected) 10.9 mg/dL (8.5-10.1); Carbon Dioxide 24.0 mMol/L (20.0-31.0); Chloride 107 mMol/L (98-107); Creatinine (Component) 0.7 mg/dL (0.6-1.3); Estimated Creatinine Clearance 121.1 mL/min (>60); Globulin 4.0 gm/dL (2.3-3.5); Glucose 116 mg/dL (74-106); Magnesium 1.5 mg/dL (1.6-2.6); Osmolality,Calculated 285 (275-295); Potassium 3.3 mMol/L (3.4-5.1); Sodium 141 mMol/L (136-145); Total Protein 7.3 gm/dL (5.7-8.2); eGFR > 60 See Note
[2025-02-16] MEDS: LANSOPRAZOLE 30 MG TAB.RAP.DR GT (08:01)
[2025-02-16] MEDS: HEPARIN SOD INJ 5000 UNIT/ML VIAL SC ×2 (08:01→21:17)
[2025-02-16] MEDS: POLYETHYLENE GLYCOL 17 GM PACKET 34 GM GT (08:01)
[2025-02-16] MEDS: levETIRAcetam LIQD 500 MG/5 ML UDC 1000 MG PO ×2 (08:01→21:17)
[2025-02-16] MEDS: METOPROLOL TARTRATE 25 MG TABLET 100 MG GT ×2 (08:10→21:13)
--- NOTE | 2025-02-16 08:30 | PC.SS ---
Addendum entered by KARIN Anderson 02/16/25 14:31: Rounding note: on IV antibiotics, pending available staff to receive patient at subacute. Original Note: GRADING MACHINE FEEDER placed phone call to subacute to inform of possible d/c, GRADING MACHINE FEEDER was informed that transfers to subacute do not occur over the weekend due to staffing.
[2025-02-16] MEDS: POTASSIUM CHLORIDE 10% 20 MEQ/15 ML UDC 40 MEQ GT (09:14)
[2025-02-16] MEDS: Magnesium Sulfate 4 GM Ivpb 4 GM/50 ML BAG IV (09:14)
--- NOTE | 2025-02-16 12:10 | ESPR_ITS ---
<Statement entered by Trena Randall MD - 02/16/25 12:29> Patient was seen and examined at bedside. I agree on the assessment and plan on this note as documented by resident Mary Duncan DO PGY1. 29-year-old male with past medical history as below admitted for sepsis likely attributed source cellulitis, throughout hospitalization patient did have increased secretions, repeat chest x-ray showed suspicion of hilar pneumonia however low clinical suspicion. Patient was given IV fluid bolus per sepsis protocol 02/14 has improved since, home medication metoprolol tartrate resumed, patient on morphine as needed for pain/discomfort. Patient looks comfortable today, will continue Zosyn and clindamycin for management of cellulitis and to cover for ESBL Proteus from sputum culture. Will continue breathing treatments every 6 hours and chest physiotherapy secretions have improved. Will continue management, disposition subacute, will likely be discharged on Tuesday. Case discussed with attending Dr. Vianey Jackson MD PGY-2 Documentation for date of: 02/16/25 Subjective Subjective Interval history: No acute overnight events. Patient seen and examined at bedside. Patient does not appear to be in pain. Patient occasionally coughs with expectoration of sputum through tracheostomy tube. Tracheostomy leaking white to light yellow sputum. Laboratory called for GNR in 1 out of 2 blood cultures and will likely result tomorrow, suspicion of Proteus. Continue antibiotics of Zosyn and clindamycin as well as wound care. Continue metoprolol and morphine as needed. Blood pressure soft, heart rate 60 to 80s. Patient has remained afebrile since admission. Hemoglobin dropped from 7.8-7.1, has past history of bleeding at tracheostomy tube resulting in hemoglobin of 6.5, type and screen a.m. draw tomorrow. Transaminitis resolved. Alkaline phosphatase downtrending. Calcium still elevated 10.9. Mg 1.5, 4 g mag sulfate given. K 3.3, KCl 40 mEq given through PEG. Exam Vital Signs Temp Pulse Resp BP Pulse Ox O2 Del Method O2 Flow Rate 97.1 F 78 14 105/60 98 Blow-by 6 02/16/25 08:00 02/16/25 11:48 02/16/25 08:00 02/16/25 08:10 02/16/25 08:00 02/16/25 08:00 02/16/25 08:00 FiO2 28 02/16/25 08:00 Narrative Exam GENERAL: nonverbal, opens eyes spontaneously, frail HEENT: NC/AT, mucous membranes moist, bilateral sclera anicteric, tracheostomy midline, no bleeding noted around trach, some sputum in the trach tube CARDIOVASCULAR: regular rate and rhythm, S1/S2 present, no murmurs appreciated PULMONARY: clear to auscultation bilaterally, no rales/rhonchi/wheezes ABDOMINAL: soft, non-tender, non-distended, no rebound/guarding, bowel sounds present, PEG tube in place in center of abdomen without eyrthema no purulent drainage, some crusting inside the tube. : Langston cathether in place draining clear urine EXTREMITIES: no peripheral edema, LUE is contorted in interior rotation and flexion of the wrist. SKIN: b/l popliteal fossa leg wounds 4x4 cm with dressings in place, no evidence of necrosis. Sacral wound, dressed and clean, no purulent drainage noted. R ischium buttock wound, dressed and clean, no purulent drainage noted NEURO: quadraparesis, and nonverbal at baseline with eyes opening spontaneously Objective Labs 02/16/25 05:36 02/16/25 05:36 Labs: Laboratory Results - last 24 hr 02/15/25 02/16/25 21:15 05:36 WBC 8.2 RBC 2.74 L Hgb 7.1 L Hct 22.6 L MCV 83 MCH 25.9 MCHC 31.4 RDW Std Deviation 71.3 H Plt Count 207 Neut % (Auto) 72 Lymph % (Auto) 14 [place] % (Auto) 12 Eos % (Auto) 2 Baso % (Auto) 0 Neut # (Auto) 5.9 Lymph # (Auto) 1.1 [place] # (Auto) 1.0 H Eos # (Auto) 0.1 Baso # (Auto) 0.0 Immature Gran # (Auto) 0.02 H Absolute Nucleated RBC 0.00 Immature Gran % 0 Nucleated RBC % 0 Sodium 141 Potassium 3.3 L Chloride 107 Carbon Dioxide 24.0 Anion Gap 10 BUN 21 Creatinine 0.7 Estim Creat Clear Calc 121.1 eGFR > 60 BUN/Creatinine Ratio 30 H Glucose 116 H D Calculated Osmolality 285 Calcium 10.3 Corrected Calcium 10.9 H Magnesium 1.5 L Total Bilirubin < 0.2 L AST 34 ALT 39 Alkaline Phosphatase 137 H Total Protein 7.3 Albumin 3.3 L Globulin 4.0 H Albumin/Globulin Ratio 0.8 L Vancomycin Trough 12.7 H ABG Interpretation ABG results: 02/12/25 04:57 ABG pH 7.47 H ABG pCO2 32 ABG pO2 83 ABG HCO3 23 ABG O2 Saturation 98 ABG Base Excess 0 Quality Measures Quality Measures sepsis Current suspected stage: sepsis Possible source: pulmonary, genitourinary and skin/soft tissue Blood cultures ordered: yes Antibiotic ordered: Yes Assessment & Plan Assessment Current Active Medications: Generic Name Dose Route Start Last Admin Trade Name Freq PRN Reason Stop Dose Admin Acetaminophen 650 mg 02/14/25 12:59 Acetaminophen [place] 325 Mg/10 Ml Udc NG 03/14/25 08:07 Q6H PRN Fever >100.4 Albuterol/Ipratropium 3 ml 02/12/25 08:08 Albuterol/Ipratropium (Duoneb) Rt [place] 3 Ml Nebu INH 03/14/25 08:07 Q2HR PRN SHORTNESS OF BREATH OR WHEEZE Atorvastatin Calcium 40 mg 02/12/25 21:00 02/15/25 20:17 Atorvastatin Calcium 20 Mg Tablet GT 03/14/25 20:59 40 mg HS RADHA Administration Baclofen 10 mg 02/14/25 13:03 02/16/25 07:56 Baclofen 10 Mg Tablet GT 03/14/25 08:29 10 mg Q6H RADHA Administration Gabapentin 300 mg 02/12/25 08:30 02/16/25 05:29 Gabapentin 100 Mg Capsule GT 03/14/25 08:29 300 mg TID RADHA Administration Guaifenesin 100 mg 02/14/25 14:00 02/16/25 05:28 Guaifenesin Syrup 200 Mg/10 Ml Udc GT 03/16/25 13:59 100 mg TID RADHA Administration Protocol Heparin Sodium (Porcine) 5,000 unit 02/12/25 09:00 02/16/25 08:01 Heparin Sod Inj 5000 Unit/Ml Vial SC 02/26/25 08:59 5,000 unit Q12HR RADHA Administration Piperacillin Sod/Tazobactam 100 mls @ 200 mls/hr 02/14/25 14:00 02/16/25 05:35 Sod 4.5 gm/ Sodium Chloride IV 02/21/25 13:59 200 mls/hr Q8HR RADHA Administration Clindamycin/Sodium Chloride 600 mg in 50 mls @ 100 mls/hr 02/15/25 17:14 02/16/25 05:26 Cleocin/Ns Ivpb IV 02/22/25 17:13 100 mls/hr Q8HR RADHA Administration Magnesium Sulfate 4 gm in 50 mls @ 12.5 mls/hr 02/16/25 08:47 02/16/25 09:14 Magnesium Sulfate Ivpb IV 02/16/25 12:46 12.5 mls/hr X1 ONE Administration Ipratropium [place] 0.5 mg 02/14/25 13:00 02/16/25 06:47 Ipratropium Rt 0.5 Mg/ 2.5 Ml Nebu INH 03/16/25 12:59 0.5 mg Q6HRRT RADHA Administration Lactulose 10 gm 02/13/25 08:27 Lactulose Syrup 20 Gm/30 Ml Udc GT 03/14/25 08:59 BID PRN CONSTIPATION Protocol Lansoprazole 30 mg 02/12/25 09:00 02/16/25 08:01 Lansoprazole 30 Mg Tab.Rap. GT 03/14/25 08:59 30 mg QDAY RADHA Administration Levalbuterol HCl 1.25 mg 02/14/25 13:00 02/16/25 06:47 Levalbuterol Rt 1.25 Mg/0.5 Ml Nebu INH 03/16/25 12:59 1.25 mg Q6HRRT RADHA Administration Levetiracetam 1,000 mg 02/12/25 09:00 02/16/25 08:01 Levetiracetam Liqd 500 Mg/5 Ml Udc PO 03/14/25 08:59 1,000 mg BID RADHA Administration Metoprolol Tartrate 100 mg 02/14/25 21:00 02/16/25 08:10 Metoprolol Tartrate 25 Mg Tablet GT 03/16/25 20:59 100 mg BID RADHA Administration Midodrine 5 mg 02/15/25 14:00 02/16/25 05:28 Midodrine 5 Mg Tablet GT 03/14/25 13:59 5 mg TID RADHA Administration Morphine Sulfate 2 mg 02/14/25 12:59 Morphine Sulf Liqd 10 Mg/5 Ml Udc GT 02/19/25 13:59 TID PRN Pain or Discomfort Ondansetron HCl 4 mg 02/12/25 08:08 Ondansetron Inj 2 Mg/Ml Inj 2 Ml IVP 03/14/25 08:07 Q6H PRN NAUSEA OR VOMITING Protocol Pharmacy Consult 1 each 02/12/25 04:07 Pharmacy Renal Dose Adjustment 1 Ea XX 03/14/25 04:06 PRN PRN CONSULT Polyethylene Glycol 34 gm 02/12/25 09:00 02/16/25 08:01 Polyethylene Glycol 17 Gm Packet GT 03/14/25 08:59 34 gm QDAY RADHA Administration Sodium Chloride 3 ml 02/14/25 12:56 02/15/25 18:54 Sodium Chloride Rt [place] 0.9% 3 Ml Nebu INH 03/16/25 12:55 3 ml PRN PRN Administration SOLN Plan Meena Carmona is a 29M pmhx significant for 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 #Sepsis 2/2 #R popliteal fossa cellulitis, Staphylococcus hyicus, Pseudomonas aeruginosa and #L popliteal fossa cellulitis, MRSA and strep gysgalac #UTI, Klebsiella pneumoniae #URI, Proteus mirabilis, Pseudomonas aeruginosa, Klebsiella pneumoniae Patient presented with 4/4 SIRS positive, with history of similar previous admissions. On admission ESR 75, lactic acid 2.2->0.9, LDH 278, CRP 9.7, procal 0.56. Likely 2/2 cellulitis of b/l popliteal fossa wounds with purulent drainage, which have been infected previously. UA shows UTI +LE, +nitrites, 4 WBC, 1+ bacteria. CXR shows no lobar pneumonia, suspicious for small left pleural effusion. CT bilateral lower extremity shows significant bilateral knee effusions, cellulitis pattern and soft tissue subcutaneous fatty tissue surrounding the knees, no soft tissue abscess negative for osteomyelitis. Repeat CXR shows suspicious for early bilateral perihilar pneumonia 02/10 sputum culture proteus mirabilis, Pseudomonas, Klebsiella pneumonia. Neg BCx and UCx 02/11 R knee wound culture shows Staph hyicus and Pseudomonas. L knee wound culture shows MRSA and GBS. 02/12/ BCx growing GNR. Suputum culture shows Proteus mirabilis and Pseudomonas aeruginosa. 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 Knee effusions less likely to be source of infection given cellulitis. Plan: - Ipratropium 0.5 mg q6h - Levalbuterol 1.25 mg q6h - Continue Baclofen 10 mg q6h - Resume home gabapentin 300 mg TID - Resume home Keppra 1g BID - Resume home midodrine 5 mg TID with parameters to hold if SBP >160 - Continue wound care #Transaminitis, resolved On admission AST/ALT 50/98, baseline . Component of sepsis, were elevated on previous admission as well. CTAP on 10/2024 show no focal liver lesions. Plan: - CTM LFTs - Consider liver US or further imaging if values remain elevated #Hypercalcemia On admission 11.4 . Patient has hx of hypercalcemia on previous admission 10.3- 12.12. Likely 2/2 quadriparesis/bed bound/immobilization. PTH low 5.7 with appropriate response to hypercalcemia. Plan: - CTM Ca - Consider further hypercalcemia workup if continues to increase #Microcytic anemia Hgb on admission 9.4, baseline 8-9s. Likely anemia of chronic disease 2/2 chronic vegetative state. 12/20/24 peripheral smear shows severe hypochromic microcytic anemia without hemolysis favoring iron deficiency state.iron panel: iron low 50, TIBC low 243, iron sat wnl, unsat iron binding low 193. Plan: - CTM CBC - Recommend outpatient follow up and oral iron repletion for further management #Electrolyte abnormalities #Hypokalemia #Hypomagnesemia Mg on 02/13 1.5. K on 02/16 3.3. Plan: - Recheck and replete as necessary Hospital management: Lines: PIV, PEG, Tracheostomy, Langston Diet: Jevity 1.5 at 30 cc/hr Bowel: Miralax 34 g GT QD and lactulose 10 gm GT prn GI prophylaxis: Lansoprazole 40 mg GT DVT prophylaxis: heparin q12 Disposition: med [facility] for IV abx and wound care CODE STATUS: DNR Plan of care discussed with attending Dr. Bernard, and PGY-2 Dr. Randall. Mary Duncan DO Internal Medicine PGY-1 Attending Provider Attestation/Addendum Fozia, Vianey Bernard DO, attest that I was physically present for the martinez portions of the service and evaluated the patient with the resident and I reviewed and discussed the case with the resident and agree with the resident's findings and plans of care as documented above Patient seen and evaluated this AM. Patient is awake and tracking with eyes. He continues to have copious secretions from trach. Right lung malin noted to have rhonchi >> left. B/l knees have dressing that are clean, dry and intact. Afebrile. Continue wtih zosyn and clindamycin. BCx is pending final C/s. Anticipate DC to subacute on Tuesday.
[2025-02-16] MEDS: ATORVASTATIN CALCIUM 20 MG TABLET 40 MG GT (21:15)
[2025-02-17] VITALS (15 sets, daily range): BP systolic 99–132; BP diastolic 61–82; PULSE 60–106; RESP 19–99; TEMP 36.1–36.7; O2SAT 95–100
[2025-02-17] MEDS: LEVALBUTEROL RT 1.25 MG/0.5 ML NEBU INH ×4 (01:03→18:32)
[2025-02-17] MEDS: IPRATROPIUM RT 0.5 MG/ 2.5 ML NEBU INH ×4 (01:03→18:32)
[2025-02-17] MEDS: BACLOFEN 10 MG TABLET GT ×4 (02:02→20:12)
[2025-02-17] MEDS: PIPER/TAZO INJ 4.5 GM in SODIUM CHLORIDE 0.9% (POP) 100 ML IV ×3 (05:06→21:12)
[2025-02-17] MEDS: CLINDAMYCIN/NS 600 MG IVPB 600 MG/50 ML BAG 100 MG IV ×3 (05:06→21:12)
[2025-02-17] MEDS: guaiFENesin SYRUP 200 MG/10 ML UDC 100 MG GT ×3 (05:07→21:12)
[2025-02-17] MEDS: MIDODRINE 5 MG TABLET GT ×3 (05:07→21:15)
[2025-02-17] MEDS: GABAPENTIN 100 MG CAPSULE 300 MG GT ×3 (05:07→21:12)
[2025-02-17 05:27] LABS: Basophils # (Auto) 0.0 Thou/mm3 (0.0-0.2); Basophils % (Auto) 0 % (0-2.5); Eosinophils # (Auto) 0.2 Thou/mm3 (0.0-0.5); Eosinophils % (Auto) 2 % (0-10); Hematocrit 22.9 % (41.0-53.0); Hemoglobin 7.0 g/dL (13.5-16.0); Immature Granulocytes Auto 0.03 Thou/mm3 (0.00-0.00); Lymphocytes # (Auto) 1.3 Thou/mm3 (1.0-4.8); Lymphocytes % (Auto) 15 % (10-50); Mean Corpuscular HGB Conc 30.6 g/dl (31.0-37.0); Mean Corpuscular Hemoglobin 25.7 pg (25.0-35.0); Mean Corpuscular Volume 84 fL (80-100); Monocytes # (Auto) 1.0 Thou/mm3 (0.0-0.8); Monocytes % (Auto) 11 % (0-12); Neutrophils # (Auto) 6.5 Thou/mm3 (1.8-7.7); Neutrophils % (Auto) 72 % (37-80); Nucleated Red Blood Cell # 0.00 Thou/mm3 (0.00-0.00); Nucleated Red Blood Cell % 0 /100 WBC (0); Platelet Count 220 Thou/mm3 (140-440); RDW Standard Deviation 74.6 fL (35.1-43.9); Red Blood Count 2.72 Miln/mm3 (4.50-5.90); White Blood Count 9.0 Thou/mm3 (3.8-10.6)
[2025-02-17 06:05] LABS: Alanine Aminotransferase 33 U/L (10-49); Albumin, Serum 3.5 gm/dL (3.5-5.0); Albumin/Globulin Ratio 0.9 (1.2-2.2); Alkaline Phosphatase 140 U/L (46-116); Anion Gap 12 (7-16); Aspartate Amino Transferase 27 U/L (0-34); BUN/Creatinine Ratio 27 Ratio (12-20); Bilirubin,Total < 0.2 mg/dL (0.3-1.2); Blood Urea Nitrogen 16 mg/dL (9-23); Calcium 10.0 mg/dL (8.3-10.6); Calcium (Corrected) 10.4 mg/dL (8.5-10.1); Carbon Dioxide 23.1 mMol/L (20.0-31.0); Chloride 106 mMol/L (98-107); Creatinine (Component) 0.6 mg/dL (0.6-1.3); Estimated Creatinine Clearance 143.6 mL/min (>60); Globulin 4.0 gm/dL (2.3-3.5); Glucose 84 mg/dL (74-106); Magnesium 1.7 mg/dL (1.6-2.6); Osmolality,Calculated 281 (275-295); Potassium 3.5 mMol/L (3.4-5.1); Sodium 141 mMol/L (136-145); Total Protein 7.5 gm/dL (5.7-8.2); eGFR > 60 See Note
[2025-02-17] MEDS: HEPARIN SOD INJ 5000 UNIT/ML VIAL SC ×2 (08:03→20:12)
[2025-02-17] MEDS: levETIRAcetam LIQD 500 MG/5 ML UDC 1000 MG PO ×2 (08:03→20:12)
[2025-02-17] MEDS: LANSOPRAZOLE 30 MG TAB.RAP.DR GT (08:04)
[2025-02-17] MEDS: METOPROLOL TARTRATE 25 MG TABLET 100 MG GT (08:04)
[2025-02-17] MEDS: POTASSIUM CHLORIDE 10% 20 MEQ/15 ML UDC 40 MEQ GT (10:16)
[2025-02-17] MEDS: Magnesium Sulfate 4 GM Ivpb 4 GM/50 ML BAG IV (10:17)
--- NOTE | 2025-02-17 14:24 | PC.SS ---
Rounding note: pending bed at [facility], d/c Tuesday.
--- NOTE | 2025-02-17 14:27 | ESPR_ITS ---
<Statement entered by Trena Randall MD - 02/17/25 15:28> Patient was seen and examined at bedside. I agree on the assessment and plan on this note as documented by resident Mary Duncan DO PGY1. 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 Patient found to be septic secondary to patient cellulitis. Patient started on cefepime and vancomycin, admitted to the hospital for wound care and management of sepsis, during the hospitalization stay patient had rapid response called for elevated heart rate, noted to be SIRS positive was resuscitated with IV fluids and improved significantly. Patient's antibiotic therapy was tailored depending on cultures for the hospitalization currently on Zosyn and clindamycin, noted to have increased respiratory secretions for hospitalization repeat chest x-ray for hospitalization showed early hilar pneumonia, receiving breathing treatment every 6 hours and currently undergoing chest PT. Otherwise patient has improved significantly for the hospitalization course, is stable to be discharged however pending bed at subacute facility, bed will likely be available in a.m. and patient can be discharged if stable. Case discussed with attending Dr. Vianey Jackson MD PGY-2 Documentation for date of: 02/17/25 Subjective Subjective Interval history: No acute overnight events. Patient seen and examined at bedside. Patient does not appear to be in pain, opens eyes spontaneously upon examination. Bilateral knees dressed with sterile gauze. Remains afebrile with stable BP and HR. Hemoglobin 7.1->7.0 today. CTM closely, type and screen ordered, low threshold for transfusion as patient has required them in the past 2/2 trach bleeding. No active signs of bleeding. Continue antibiotics of Zosyn and clindamycin. 1 out of 2 blood culture bottles grew Proteus mirabilis sensitive to Zosyn. A.m. potassium 3.5 repleted with KCl 40 mEq, and magnesium 1.7 repleted with IV mag 4g. Exam Vital Signs Temp Pulse Resp BP Pulse Ox O2 Del Method O2 Flow Rate 97.0 F 96 20 103/68 100 Blow-by 6 02/17/25 12:00 02/17/25 13:41 02/17/25 12:00 02/17/25 13:41 02/17/25 12:00 02/17/25 12:00 02/17/25 12:00 FiO2 28 02/17/25 12:00 Narrative Exam GENERAL: nonverbal, opens eyes spontaneously, frail HEENT: NC/AT, mucous membranes moist, bilateral sclera anicteric, tracheostomy midline, no bleeding noted around trach, sputum in the trach tube CARDIOVASCULAR: regular rate and rhythm, S1/S2 present, no murmurs appreciated PULMONARY: coarse rhonchi bilaterally ABDOMINAL: soft, non-tender, non-distended, no rebound/guarding, bowel sounds present, PEG tube in place in center of abdomen without eyrthema no purulent drainage, some crusting inside the tube. : Langston cathether in place draining clear urine EXTREMITIES: no peripheral edema, BUE is contorted in interior rotation and flexion of the wrist. SKIN: b/l popliteal fossa leg wounds 4x4 cm with dressings in place, no evidence of necrosis. Sacral wound, dressed and clean, no purulent drainage noted. R ischium buttock wound, dressed and clean, no purulent drainage noted NEURO: quadraparesis, and nonverbal at baseline with eyes opening spontaneously Objective Labs 02/17/25 04:37 02/17/25 04:37 Labs: Laboratory Results - last 24 hr 02/17/25 04:37 WBC 9.0 RBC 2.72 L Hgb 7.0 L Hct 22.9 L MCV 84 MCH 25.7 MCHC 30.6 L RDW Std Deviation 74.6 H Plt Count 220 Neut % (Auto) 72 Lymph % (Auto) 15 [place] % (Auto) 11 Eos % (Auto) 2 Baso % (Auto) 0 Neut # (Auto) 6.5 Lymph # (Auto) 1.3 [place] # (Auto) 1.0 H Eos # (Auto) 0.2 Baso # (Auto) 0.0 Immature Gran # (Auto) 0.03 H Absolute Nucleated RBC 0.00 Immature Gran % 0 Nucleated RBC % 0 Sodium 141 Potassium 3.5 Chloride 106 Carbon Dioxide 23.1 Anion Gap 12 BUN 16 Creatinine 0.6 Estim Creat Clear Calc 143.6 eGFR > 60 BUN/Creatinine Ratio 27 H Glucose 84 Calculated Osmolality 281 Calcium 10.0 Corrected Calcium 10.4 H Magnesium 1.7 Total Bilirubin < 0.2 L AST 27 ALT 33 Alkaline Phosphatase 140 H Total Protein 7.5 Albumin 3.5 Globulin 4.0 H Albumin/Globulin Ratio 0.9 L Blood Type O Positive Antibody Screen NEGATIVE Blood Bank Wristband ID Yes ABG Interpretation ABG results: 02/12/25 04:57 ABG pH 7.47 H ABG pCO2 32 ABG pO2 83 ABG HCO3 23 ABG O2 Saturation 98 ABG Base Excess 0 Quality Measures Quality Measures sepsis Current suspected stage: sepsis Possible source: pulmonary, genitourinary and skin/soft tissue Blood cultures ordered: yes Antibiotic ordered: Yes Assessment & Plan Assessment Current Active Medications: Generic Name Dose Route Start Last Admin Trade Name Freq PRN Reason Stop Dose Admin Acetaminophen 650 mg 02/14/25 12:59 Acetaminophen [place] 325 Mg/10 Ml Udc NG 03/14/25 08:07 Q6H PRN Fever >100.4 Albuterol/Ipratropium 3 ml 02/12/25 08:08 Albuterol/Ipratropium (Duoneb) Rt [place] 3 Ml Nebu INH 03/14/25 08:07 Q2HR PRN SHORTNESS OF BREATH OR WHEEZE Atorvastatin Calcium 40 mg 02/12/25 21:00 02/16/25 21:15 Atorvastatin Calcium 20 Mg Tablet GT 03/14/25 20:59 40 mg HS RADHA Administration Baclofen 10 mg 02/14/25 13:03 02/17/25 13:41 Baclofen 10 Mg Tablet GT 03/14/25 08:29 10 mg Q6H RADHA Administration Gabapentin 300 mg 02/12/25 08:30 02/17/25 13:41 Gabapentin 100 Mg Capsule GT 03/14/25 08:29 300 mg TID RADHA Administration Guaifenesin 100 mg 02/14/25 14:00 02/17/25 13:41 Guaifenesin Syrup 200 Mg/10 Ml Udc GT 03/16/25 13:59 100 mg TID RADHA Administration Protocol Heparin Sodium (Porcine) 5,000 unit 02/12/25 09:00 02/17/25 08:03 Heparin Sod Inj 5000 Unit/Ml Vial SC 02/26/25 08:59 5,000 unit Q12HR RADHA Administration Piperacillin Sod/Tazobactam 100 mls @ 200 mls/hr 02/14/25 14:00 02/17/25 13:42 Sod 4.5 gm/ Sodium Chloride IV 02/21/25 13:59 200 mls/hr Q8HR RADHA Administration Clindamycin/Sodium Chloride 600 mg in 50 mls @ 100 mls/hr 02/15/25 17:14 02/17/25 13:42 Cleocin/Ns Ivpb IV 02/22/25 17:13 100 mls/hr Q8HR RADHA Administration Ipratropium [place] 0.5 mg 02/14/25 13:00 02/17/25 11:05 Ipratropium Rt 0.5 Mg/ 2.5 Ml Nebu INH 03/16/25 12:59 0.5 mg Q6HRRT RADHA Administration Lactulose 10 gm 02/13/25 08:27 Lactulose Syrup 20 Gm/30 Ml Udc GT 03/14/25 08:59 BID PRN CONSTIPATION Protocol Lansoprazole 30 mg 02/12/25 09:00 02/17/25 08:04 Lansoprazole 30 Mg Tab.Rap.Dr GT 03/14/25 08:59 30 mg QDAY RADHA Administration Levalbuterol HCl 1.25 mg 02/14/25 13:00 02/17/25 11:05 Levalbuterol Rt 1.25 Mg/0.5 Ml Nebu INH 03/16/25 12:59 1.25 mg Q6HRRT RADHA Administration Levetiracetam 1,000 mg 02/12/25 09:00 02/17/25 08:03 Levetiracetam Liqd 500 Mg/5 Ml Udc PO 03/14/25 08:59 1,000 mg BID RADHA Administration Metoprolol Tartrate 100 mg 02/14/25 21:00 02/17/25 08:04 Metoprolol Tartrate 25 Mg Tablet GT 03/16/25 20:59 100 mg BID RADHA Administration Midodrine 5 mg 02/15/25 14:00 02/17/25 13:41 Midodrine 5 Mg Tablet GT 03/14/25 13:59 5 mg TID RADHA Administration Morphine Sulfate 2 mg 02/14/25 12:59 Morphine Sulf Liqd 10 Mg/5 Ml Udc GT 02/19/25 13:59 TID PRN Pain or Discomfort Ondansetron HCl 4 mg 02/12/25 08:08 Ondansetron Inj 2 Mg/Ml Inj 2 Ml IVP 03/14/25 08:07 Q6H PRN NAUSEA OR VOMITING Protocol Pharmacy Consult 1 each 02/12/25 04:07 Pharmacy Renal Dose Adjustment 1 Ea XX 03/14/25 04:06 PRN PRN CONSULT Polyethylene Glycol 34 gm 02/12/25 09:00 02/17/25 08:05 Polyethylene Glycol 17 Gm Packet GT 03/14/25 08:59 Not Given QDAY RADHA Sodium Chloride 3 ml 02/14/25 12:56 02/15/25 18:54 Sodium Chloride Rt [place] 0.9% 3 Ml Nebu INH 03/16/25 12:55 3 ml PRN PRN Administration SOLN Plan Meena Carmona is a 29M pmhx significant for 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 #Sepsis, resolved 2/2 #R popliteal fossa cellulitis, Staphylococcus hyicus, Pseudomonas aeruginosa and #L popliteal fossa cellulitis, MRSA and strep gysgalac #UTI, Klebsiella pneumoniae #URI, Proteus mirabilis, Pseudomonas aeruginosa, Klebsiella pneumoniae #1/2 Blood cultures +Proteus mirabilis Patient presented with 4/4 SIRS positive, with history of similar previous admissions. On admission ESR 75, lactic acid 2.2->0.9, LDH 278, CRP 9.7, procal 0.56. Likely 2/2 cellulitis of b/l popliteal fossa wounds with purulent drainage, which have been infected previously. UA shows UTI +LE, +nitrites, 4 WBC, 1+ bacteria. CXR shows no lobar pneumonia, suspicious for small left pleural effusion. CT bilateral lower extremity shows significant bilateral knee effusions, cellulitis pattern and soft tissue subcutaneous fatty tissue surrounding the knees, no soft tissue abscess negative for osteomyelitis. Repeat CXR shows suspicious for early bilateral perihilar pneumonia 02/10 sputum culture proteus mirabilis, Pseudomonas, Klebsiella pneumonia. Neg BCx and UCx 02/11 R knee wound culture shows Staph hyicus and Pseudomonas. L knee wound culture shows MRSA and GBS. 02/12 1/2 BCx growing proteus mirabilis. Suputum culture shows Proteus mirabilis and Pseudomonas aeruginosa. UCx grew Klebsiella pneumoniae s/p Zosyn x1 and Vanc x1, 2L NS, tylenol 975 mg NV in ED Received Vanc (02/12-02/14), cefepime (02/12-02/13) Plan: - Zosyn 4.5g q8h (02/14-) and Clindamycin 600mg q8h (02/15-) - Wound care consulted - CTM wounds - Continue guaifenesin 100 mg GT TID - Oral care and suctioning - Consider replacing tracheostomy if mucus continues to be produced in excess despite guaifenesin #Microcytic anemia Hgb on admission 9.4, baseline 8-9s. Likely anemia of chronic disease 2/2 chronic vegetative state. 12/20/24 peripheral smear shows severe hypochromic microcytic anemia without hemolysis favoring iron deficiency state. Iron panel: iron low 50, TIBC low 243, iron sat wnl, unsat iron binding low 193. Currently, hgb downtrending, no overt active signs of bleeding, suspicion for bleeding behind trachostomy with frequent oral suctioning and coughing from secretions. Stools are brown. 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 Knee effusions less likely to be source of infection given cellulitis. Plan: - Ipratropium 0.5 mg q6h - Levalbuterol 1.25 mg q6h - Continue Baclofen 10 mg q6h - Resume home gabapentin 300 mg TID - Resume home Keppra 1g BID - Resume home midodrine 5 mg TID with parameters to hold if SBP >160 - Continue wound care - Keep K>4 and Mg>2 #Transaminitis, resolved On admission AST/ALT 50/98, baseline . Component of sepsis, were elevated on previous admission as well. CTAP on 10/2024 show no focal liver lesions. Plan: - CTM LFTs - Consider liver US or further imaging if values remain elevated #Hypercalcemia On admission 11.4 . Patient has hx of hypercalcemia on previous admission 10.3- 12.12. Likely 2/2 quadriparesis/bed bound/immobilization. PTH low 5.7 with appropriate response to hypercalcemia. Plan: - CTM Ca - Consider further hypercalcemia workup if continues to increase #Electrolyte abnormalities #Hypokalemia #Hypomagnesemia Mg on 02/13 1.5. K on 02/16 3.3. 02/17 K 3.5 and Mg 1.7. Plan: - Recheck and replete as necessary Hospital management: Lines: PIV, PEG, Tracheostomy, Langston Diet: Jevity 1.5 at 30 cc/hr Bowel: Miralax 34 g GT QD and lactulose 10 gm GT prn GI prophylaxis: Lansoprazole 40 mg GT DVT prophylaxis: heparin q12 Disposition: [facility] for IV abx and wound care CODE STATUS: DNR Plan of care discussed with attending Dr. Bernard, and PGY-2 Dr. Randall. Mary Duncan DO Internal Medicine PGY-1 Attending Provider Attestation/Addendum Fozia, Vianey Bernard DO, attest that I was physically present for the martinez portions of the service and evaluated the patient with the resident and I reviewed and discussed the case with the resident and agree with the resident's findings and plans of care as documented above Patient seen and evaluated this AM. Patient is awake and in no acute distress. Patient continues to have scattered rhonchi in right lung malin and diminished breath sounds in left. Continue with chest PT and deep suctioining. Blood culture has finalized and shows proteus mirabilis. Patient has been otherwise afebrile. He remains on blowby. Conitnue with clindamycin and zosyn, anticipate DC back to subacute in next 24-48h
[2025-02-17] MEDS: ATORVASTATIN CALCIUM 20 MG TABLET 40 MG GT (20:12)
[2025-02-18] VITALS (21 sets, daily range): BP systolic 96–116; BP diastolic 59–88; PULSE 60–119; RESP 13–35; TEMP 35.9–36.6; O2SAT 93–100; BMI 16.5
[2025-02-18] MEDS: IPRATROPIUM RT 0.5 MG/ 2.5 ML NEBU INH ×4 (00:11→19:03)
[2025-02-18] MEDS: LEVALBUTEROL RT 1.25 MG/0.5 ML NEBU INH ×4 (00:11→19:03)
[2025-02-18] MEDS: BACLOFEN 10 MG TABLET GT ×4 (01:42→20:07)
[2025-02-18] MEDS: PIPER/TAZO INJ 4.5 GM in SODIUM CHLORIDE 0.9% (POP) 100 ML IV ×3 (05:04→22:27)
[2025-02-18] MEDS: GABAPENTIN 100 MG CAPSULE 300 MG GT ×3 (05:05→22:08)
[2025-02-18] MEDS: CLINDAMYCIN/NS 600 MG IVPB 600 MG/50 ML BAG 100 MG IV ×3 (05:05→22:08)
[2025-02-18] MEDS: MIDODRINE 5 MG TABLET GT ×3 (05:05→22:09)
[2025-02-18] MEDS: guaiFENesin SYRUP 200 MG/10 ML UDC 100 MG GT ×3 (05:05→22:08)
[2025-02-18 05:39] LABS: Basophils # (Auto) 0.0 Thou/mm3 (0.0-0.2); Basophils % (Auto) 0 % (0-2.5); Eosinophils # (Auto) 0.2 Thou/mm3 (0.0-0.5); Eosinophils % (Auto) 2 % (0-10); Hematocrit 22.2 % (41.0-53.0); Immature Granulocytes Auto 0.02 Thou/mm3 (0.00-0.00); Lymphocytes # (Auto) 1.3 Thou/mm3 (1.0-4.8); Lymphocytes % (Auto) 16 % (10-50); Mean Corpuscular HGB Conc 31.1 g/dl (31.0-37.0); Mean Corpuscular Hemoglobin 25.9 pg (25.0-35.0); Mean Corpuscular Volume 84 fL (80-100); Monocytes # (Auto) 0.7 Thou/mm3 (0.0-0.8); Monocytes % (Auto) 9 % (0-12); Neutrophils # (Auto) 5.9 Thou/mm3 (1.8-7.7); Neutrophils % (Auto) 73 % (37-80); Nucleated Red Blood Cell # 0.00 Thou/mm3 (0.00-0.00); Nucleated Red Blood Cell % 0 /100 WBC (0); Platelet Count 229 Thou/mm3 (140-440); RDW Standard Deviation 72.8 fL (35.1-43.9); Red Blood Count 2.66 Miln/mm3 (4.50-5.90); White Blood Count 8.1 Thou/mm3 (3.8-10.6)
[2025-02-18 05:44] LABS: Hemoglobin 6.9 g/dL (13.5-16.0)
[2025-02-18 06:08] LABS: Alanine Aminotransferase 28 U/L (10-49); Albumin, Serum 3.2 gm/dL (3.5-5.0); Albumin/Globulin Ratio 0.7 (1.2-2.2); Alkaline Phosphatase 131 U/L (46-116); Anion Gap 10 (7-16); Aspartate Amino Transferase 25 U/L (0-34); BUN/Creatinine Ratio 13 Ratio (12-20); Bilirubin,Total < 0.2 mg/dL (0.3-1.2); Blood Urea Nitrogen 8 mg/dL (9-23); Calcium 9.7 mg/dL (8.3-10.6); Calcium (Corrected) 10.3 mg/dL (8.5-10.1); Carbon Dioxide 24.5 mMol/L (20.0-31.0); Chloride 107 mMol/L (98-107); Creatinine (Component) 0.6 mg/dL (0.6-1.3); Estimated Creatinine Clearance 143.6 mL/min (>60); Globulin 4.4 gm/dL (2.3-3.5); Glucose 93 mg/dL (74-106); Magnesium 1.7 mg/dL (1.6-2.6); Osmolality,Calculated 279 (275-295); Potassium 3.9 mMol/L (3.4-5.1); Sodium 141 mMol/L (136-145); Total Protein 7.6 gm/dL (5.7-8.2); eGFR > 60 See Note
[2025-02-18] MEDS: METOPROLOL TARTRATE 25 MG TABLET 100 MG GT ×2 (08:29→20:08)
[2025-02-18] MEDS: levETIRAcetam LIQD 500 MG/5 ML UDC 1000 MG PO ×2 (08:29→20:07)
[2025-02-18] MEDS: POLYETHYLENE GLYCOL 17 GM PACKET 34 GM GT (08:29)
[2025-02-18] MEDS: HEPARIN SOD INJ 5000 UNIT/ML VIAL SC ×2 (08:30→20:09)
[2025-02-18] MEDS: LANSOPRAZOLE 30 MG TAB.RAP.DR GT (08:30)
--- NOTE | 2025-02-18 08:55 | PC.NURSE ---
Spoke to Natasha DE SOUZA subacute charge in regards to pts contact info to obtained consent per battery charger conveyor line mother Sara is the POC for consents.
--- NOTE | 2025-02-18 09:01 | PC.NURSE ---
Obtained telephone consent from mother Sara Carmona over the phone. second Verified with gloria Aldrich RN. Per mother understands the procedure as well as risks vs benefits and agrees to continue with blood transfusion at this time.
--- NOTE | 2025-02-18 09:05 | PC.SS ---
Addendum entered by KARIN Anderson 02/18/25 15:11: Rounding note: finish antibiotics tomorrow d/c to subacute. Addendum entered by KARIN Anderson 02/18/25 11:16: SS update: patient will stay one more day. Addendum entered by KARIN Anderson 02/18/25 10:26: MANAGED [employer] SALES CONSULTANT spoke to staff at [facility] to provide update on patient, subacute stated that due to short staff they will not be able to accept patient today. Addendum entered by KARIN Anderson 02/18/25 09:39: SS update: Patient will be receiving unit of blood today and would possibly be ready to d/c after. Original Note: MANAGED [employer]UR[employer] SALES CONSULTANT attempted to contact [facility] at ext. [phone] to inquire if they are able to accept patient today, was unable to get in contact with staff.
[2025-02-18] MEDS: Magnesium Sulfate 4 GM Ivpb 4 GM/50 ML BAG IV (10:17)
--- NOTE | 2025-02-18 10:21 | PC.NURSE ---
During blood transfusion noted pts HR to drop lowest reaching 58 BPM. Notified MD jackson per md gabriele to monitor pt and continue with blood transfusion. Pt comfortable no pain or distress noted. BP and vs within pts baseline.
--- NOTE | 2025-02-18 11:03 | ESPR_ITS ---
<Statement entered by Darryl Robbins MD - 02/18/25 17:32> Patient seen and examined in hospital bed, trach and PEG. Patient appears at baseline but with increased level of sputum production; frequent suctioning is on board. Will complete antibiotic course with clindamycin and Zosyn for pneumonia likely secondary to trach placement and chronic colonization with the same organisms. Wound care for pressure ulcers noted on bilateral lower extremities. Patient also received 1 unit of PRBC for hemoglobin of 6.9 correction noted on repeat H&H. Will continue monitor the patient closely and expect discharge within the next 24 hours to subacute center. I have personally seen and examined the patient. I agree with the resident's assessment and plan as documented below. Darryl Robbins, DO PGY-2 Internal Medicine - [facility] Documentation for date of: 02/18/25 Subjective Subjective Interval history: Hgb 6.9 at 5 AM today, transfused 1 unit pRBCs, repeat Hgb 9.0. Patient seen and examined at bedside this AM. Tracheostomy in place however noted lots of secretions, no bleeding around site visualized. Labs and vitals were reviewed. Calcium continues to be elevated, 10.3, likely secondary to chronic immobilization and dehydration. Mg 1.7, repleted with IV mag sulf 4g. Continue current med regimen. Anticipate discharge back to subacute facility tomorrow. Review of systems otherwise negative except what is mentioned above. Exam Vital Signs Temp Pulse Resp BP Pulse Ox O2 Del Method O2 Flow Rate 97.0 F 60 21 H 102/65 96 Blow-by 6 02/18/25 10:15 02/18/25 10:15 02/18/25 10:15 02/18/25 10:15 02/18/25 10:15 02/18/25 08:00 02/18/25 10:15 FiO2 28 02/18/25 08:00 Narrative Exam Physical Exam General: Awake and in no acute distress. Conversational and non-toxic appearing. Nonverbal, opens eyes spontaneously, frail. HEENT: Normocephalic, atraumatic, mucous membranes moist. Tracheostomy midline, no bleeding noted around trach, copious sputum in the trach tube. Heart: Regular rate and rhythm, normal S1 and S2, no murmurs. Lungs: Clear to auscultation with no wheezing or crackles. Abdomen: Soft, nondistended, nontender, positive bowel sounds. No guarding or rebound tenderness. PEG tube in place in center of abdomen without eyrthema no purulent drainage, some crusting inside the tube. Neurologic: quadraparesis, extremities contorted, and nonverbal at baseline with eyes opening spontaneously : Langston cathether in place draining clear urine Extremities: Bilateral popliteal fossa leg wounds 4x4 cm with dressings in place, no evidence of necrosis. Sacral wound, dressed and clean, no purulent drainage noted. R ischium buttock wound, dressed and clean, no purulent drainage noted Skin: No rash or ecchymoses. Objective Labs 02/19/25 05:20 02/19/25 05:20 Labs: Laboratory Results - last 24 hr 02/17/25 02/18/25 04:37 04:48 WBC 8.1 RBC 2.66 L Hgb 6.9 L* Hct 22.2 L MCV 84 MCH 25.9 MCHC 31.1 RDW Std Deviation 72.8 H Plt Count 229 Neut % (Auto) 73 Lymph % (Auto) 16 [facility] % (Auto) 9 Eos % (Auto) 2 Baso % (Auto) 0 Neut # (Auto) 5.9 Lymph # (Auto) 1.3 [facility] # (Auto) 0.7 Eos # (Auto) 0.2 Baso # (Auto) 0.0 Immature Gran # (Auto) 0.02 H Absolute Nucleated RBC 0.00 Immature Gran % 0 Nucleated RBC % 0 Sodium 141 Potassium 3.9 Chloride 107 Carbon Dioxide 24.5 Anion Gap 10 BUN 8 L Creatinine 0.6 Estim Creat Clear Calc 143.6 eGFR > 60 BUN/Creatinine Ratio 13 Glucose 93 Calculated Osmolality 279 Calcium 9.7 Corrected Calcium 10.3 H Magnesium 1.7 Total Bilirubin < 0.2 L AST 25 ALT 28 Alkaline Phosphatase 131 H Total Protein 7.6 Albumin 3.2 L Globulin 4.4 H Albumin/Globulin Ratio 0.7 L Blood Type O Positive Antibody Screen NEGATIVE Crossmatch See Detail Blood Bank Wristband ID Yes ABG Interpretation ABG results: 02/12/25 04:57 ABG pH 7.47 H ABG pCO2 32 ABG pO2 83 ABG HCO3 23 ABG O2 Saturation 98 ABG Base Excess 0 Quality Measures Quality Measures sepsis Current suspected stage: sepsis (resolved) Possible source: pulmonary, genitourinary and skin/soft tissue Blood cultures ordered: yes Antibiotic ordered: Yes Assessment & Plan Assessment Current Active Medications: Generic Name Dose Route Start Last Admin Trade Name Freq PRN Reason Stop Dose Admin Acetaminophen 650 mg 02/14/25 12:59 Acetaminophen [place] 325 Mg/10 Ml Udc NG 03/14/25 08:07 Q6H PRN Fever >100.4 Albuterol/Ipratropium 3 ml 02/12/25 08:08 Albuterol/Ipratropium (Duoneb) Rt [place] 3 Ml Nebu INH 03/14/25 08:07 Q2HR PRN SHORTNESS OF BREATH OR WHEEZE Atorvastatin Calcium 40 mg 02/12/25 21:00 02/17/25 20:12 Atorvastatin Calcium 20 Mg Tablet GT 03/14/25 20:59 40 mg HS RADHA Administration Baclofen 10 mg 02/14/25 13:03 02/18/25 08:30 Baclofen 10 Mg Tablet GT 03/14/25 08:29 10 mg Q6H RADHA Administration Gabapentin 300 mg 02/12/25 08:30 02/18/25 05:05 Gabapentin 100 Mg Capsule GT 03/14/25 08:29 300 mg TID RADHA Administration Guaifenesin 100 mg 02/14/25 14:00 02/18/25 05:05 Guaifenesin Syrup 200 Mg/10 Ml Udc GT 03/16/25 13:59 100 mg TID RADHA Administration Protocol Heparin Sodium (Porcine) 5,000 unit 02/12/25 09:00 02/18/25 08:30 Heparin Sod Inj 5000 Unit/Ml Vial SC 02/26/25 08:59 5,000 unit Q12HR RADHA Administration Piperacillin Sod/Tazobactam 100 mls @ 200 mls/hr 02/14/25 14:00 02/18/25 05:04 Sod 4.5 gm/ Sodium Chloride IV 02/21/25 13:59 200 mls/hr Q8HR RADHA Administration Clindamycin/Sodium Chloride 600 mg in 50 mls @ 100 mls/hr 02/15/25 17:14 02/18/25 05:05 Cleocin/Ns Ivpb IV 02/22/25 17:13 100 mls/hr Q8HR RADHA Administration Magnesium Sulfate 4 gm in 50 mls @ 12.5 mls/hr 02/18/25 08:27 02/18/25 10:17 Magnesium Sulfate Ivpb IV 02/18/25 12:26 12.5 mls/hr X1 ONE Administration Ipratropium [place] 0.5 mg 02/14/25 13:00 02/18/25 06:24 Ipratropium Rt 0.5 Mg/ 2.5 Ml Nebu INH 03/16/25 12:59 0.5 mg Q6HRRT RADHA Administration Lactulose 10 gm 02/13/25 08:27 Lactulose Syrup 20 Gm/30 Ml Udc GT 03/14/25 08:59 BID PRN CONSTIPATION Protocol Lansoprazole 30 mg 02/12/25 09:00 02/18/25 08:30 Lansoprazole 30 Mg Tab.Rap. GT 03/14/25 08:59 30 mg QDAY RADHA Administration Levalbuterol HCl 1.25 mg 02/14/25 13:00 02/18/25 06:24 Levalbuterol Rt 1.25 Mg/0.5 Ml Nebu INH 03/16/25 12:59 1.25 mg Q6HRRT RADHA Administration Levetiracetam 1,000 mg 02/12/25 09:00 02/18/25 08:29 Levetiracetam Liqd 500 Mg/5 Ml Udc PO 03/14/25 08:59 1,000 mg BID RADHA Administration Metoprolol Tartrate 100 mg 02/14/25 21:00 02/18/25 08:29 Metoprolol Tartrate 25 Mg Tablet GT 03/16/25 20:59 100 mg BID RADHA Administration Midodrine 5 mg 02/15/25 14:00 02/18/25 05:05 Midodrine 5 Mg Tablet GT 03/14/25 13:59 5 mg TID RADHA Administration Morphine Sulfate 2 mg 02/14/25 12:59 Morphine Sulf Liqd 10 Mg/5 Ml Udc GT 02/19/25 13:59 TID PRN Pain or Discomfort Ondansetron HCl 4 mg 02/12/25 08:08 Ondansetron Inj 2 Mg/Ml Inj 2 Ml IVP 03/14/25 08:07 Q6H PRN NAUSEA OR VOMITING Protocol Pharmacy Consult 1 each 02/12/25 04:07 Pharmacy Renal Dose Adjustment 1 Ea XX 03/14/25 04:06 PRN PRN CONSULT Polyethylene Glycol 34 gm 02/12/25 09:00 02/18/25 08:29 Polyethylene Glycol 17 Gm Packet GT 03/14/25 08:59 34 gm QDAY RADHA Administration Sodium Chloride 3 ml 02/14/25 12:56 02/15/25 18:54 Sodium Chloride Rt [place] 0.9% 3 Ml Nebu INH 03/16/25 12:55 3 ml PRN PRN Administration SOLN Plan Patient is a 29 year old male with 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 #Sepsis, resolved 2/2 #URI, Proteus mirabilis, Pseudomonas aeruginosa, Klebsiella pneumoniae #1/2 Blood cultures +Proteus mirabilis #R popliteal fossa cellulitis, Staphylococcus hyicus, Pseudomonas aeruginosa and #L popliteal fossa cellulitis, MRSA and strep gysgalac #UTI, Klebsiella pneumoniae Patient presented with 4/4 SIRS positive, with history of similar previous admissions. On admission ESR 75, lactic acid 2.2->0.9, LDH 278, CRP 9.7, procal 0.56. Likely 2/2 cellulitis of b/l popliteal fossa wounds with purulent drainage, which have been infected previously. 02/12 CXR shows no lobar pneumonia, suspicious for small left pleural effusion. CT bilateral lower extremity 02/12 shows significant bilateral knee effusions, cellulitis pattern and soft tissue subcutaneous fatty tissue surrounding the knees, no soft tissue abscess negative for osteomyelitis. Repeat CXR 02/14 shows suspicious for early bilateral perihilar pneumonia 02/10 sputum culture proteus mirabilis, Pseudomonas, Klebsiella pneumonia. Neg BCx and UCx 02/11 R knee wound culture shows Staph hyicus and Pseudomonas. L knee wound culture shows MRSA and GBS. 02/12 UA shows UTI +LE, +nitrites, 4 WBC, 1+ bacteria. 02/12 1 BCx growing proteus mirabilis. Suputum culture shows Proteus mirabilis and Pseudomonas aeruginosa. UCx grew Klebsiella pneumoniae s/p Zosyn x1 and Vanc x1, 2L NS, tylenol 975 mg NV in ED Received Vanc (02/12-02/14), cefepime (02/12-02/13) Plan: - Zosyn 4.5g q8h (02/14-02/19 for completion of 7 day course) and Clindamycin 600mg q8h (02/15-02/19) for 5 day course - Wound care following - CTM wounds - Continue guaifenesin 100 mg GT TID - Oral care and suctioning - Consider replacing tracheostomy if mucus continues to be produced in excess despite guaifenesin #Microcytic anemia, likely TAHIRA Admission Hgb 9.4, baseline 8-9s. Likely anemia of chronic disease 2/2 chronic vegetative state. 12/20/24 peripheral smear shows severe hypochromic microcytic anemia without hemolysis favoring iron deficiency state. Iron panel: iron low 50, TIBC low 243, iron sat wnl, unsat iron binding low 193. Currently, hgb downtrending, no overt active signs of bleeding, suspicion for bleeding behind trachostomy with frequent oral suctioning and coughing from secretions. Stools are brown. 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 Knee effusions less likely to be source of infection given cellulitis. Plan: - Ipratropium 0.5 mg q6h - Levalbuterol 1.25 mg q6h - Continue Baclofen 10 mg q6h - Resume home gabapentin 300 mg TID - Resume home Keppra 1g BID - Resume home midodrine 5 mg TID with parameters to hold if SBP >160 - Continue wound care - Keep K>4 and Mg>2 #Transaminitis, resolved On admission AST/ALT 50/98, baseline . Component of sepsis, were elevated on previous admission as well. CTAP on 10/2024 show no focal liver lesions. Plan: - CTM LFTs - Consider liver US or further imaging if values remain elevated #Hypercalcemia, improving Admission calcium 11.4 . Patient has hx of hypercalcemia on previous admission 10.3-12.12. Likely 2/2 quadriparesis/bed bound/immobilization. PTH low 5.7 with appropriate response to hypercalcemia, unlikely primary or secondary hyperparathyroidism. Plan: - CTM Ca - Avoid medications that may increase calcium levels - Consider further hypercalcemia workup if continues to increase #Electrolyte abnormalities #Hypokalemia, resolved #Hypomagnesemia Mg on 02/13 1.5. K on 02/16 3.3. 02/17 K 3.5 and Mg 1.7. Plan: - Recheck and replete as necessary Health Maintenance Disposition: med [facility] for IV abx and wound care, management of URI DVT prophylaxis: Heparin SQ GI prophylaxis: Lansoprazole 40 mg GT Bowel regimen: Miralax daily and lactulose 10 g GT prn Diet: Jevity 1.5 at 30 cc/hr CODE STATUS: DNR Patient plan of care was discussed with the resident, Dr. Robbins, and attending physician, Dr. Bernard. Iman Duncan, PGY-1 Attending Provider Attestation/Addendum I, Vianey Bernard, , attest that I was physically present for the martinez portions of the service and evaluated the patient with the resident and I reviewed and discussed the case with the resident and agree with the resident's findings and plans of care as documented above Patient seen and evaluated this AM. Patient is alert and tracking with eyes. Patient will complete IV abx tomorrow. Anticipate DC within next 24h back to subacute. He continues to have copious productive sputum, improved wtih deep suctioning and chest pt. Remains on Blowby
[2025-02-18 14:18] LABS: Hematocrit 28.5 % (41.0-53.0); Hemoglobin 9.0 g/dL (13.5-16.0)
[2025-02-18] MEDS: ATORVASTATIN CALCIUM 20 MG TABLET 40 MG GT (20:07)
[2025-02-19] VITALS (9 sets, daily range): BP systolic 108–122; BP diastolic 75–88; PULSE 58–86; RESP 17–26; TEMP 36.2–36.4; O2SAT 95–100; BMI 16.5
[2025-02-19] MEDS: IPRATROPIUM RT 0.5 MG/ 2.5 ML NEBU INH ×3 (00:31→12:09)
[2025-02-19] MEDS: LEVALBUTEROL RT 1.25 MG/0.5 ML NEBU INH ×3 (00:31→12:09)
[2025-02-19] MEDS: BACLOFEN 10 MG TABLET GT ×2 (00:53→07:41)
[2025-02-19] MEDS: CLINDAMYCIN/NS 600 MG IVPB 600 MG/50 ML BAG 100 MG IV (05:35)
[2025-02-19] MEDS: GABAPENTIN 100 MG CAPSULE 300 MG GT (05:36)
[2025-02-19] MEDS: PIPER/TAZO INJ 4.5 GM in SODIUM CHLORIDE 0.9% (POP) 100 ML IV (05:36)
[2025-02-19] MEDS: MIDODRINE 5 MG TABLET GT (05:36)
[2025-02-19] MEDS: guaiFENesin SYRUP 200 MG/10 ML UDC 100 MG GT (05:36)
[2025-02-19 05:50] LABS: Basophils # (Auto) 0.1 Thou/mm3 (0.0-0.2); Basophils % (Auto) 1 % (0-2.5); Eosinophils # (Auto) 0.2 Thou/mm3 (0.0-0.5); Eosinophils % (Auto) 2 % (0-10); Hematocrit 27.5 % (41.0-53.0); Immature Granulocytes Auto 0.04 Thou/mm3 (0.00-0.00); Lymphocytes # (Auto) 1.8 Thou/mm3 (1.0-4.8); Lymphocytes % (Auto) 17 % (10-50); Mean Corpuscular HGB Conc 31.6 g/dl (31.0-37.0); Mean Corpuscular Hemoglobin 26.4 pg (25.0-35.0); Mean Corpuscular Volume 83 fL (80-100); Monocytes # (Auto) 0.9 Thou/mm3 (0.0-0.8); Monocytes % (Auto) 8 % (0-12); Neutrophils # (Auto) 7.5 Thou/mm3 (1.8-7.7); Neutrophils % (Auto) 72 % (37-80); Nucleated Red Blood Cell # 0.00 Thou/mm3 (0.00-0.00); Nucleated Red Blood Cell % 0 /100 WBC (0); Platelet Count 266 Thou/mm3 (140-440); RDW Standard Deviation 67.7 fL (35.1-43.9); Red Blood Count 3.30 Miln/mm3 (4.50-5.90); White Blood Count 10.4 Thou/mm3 (3.8-10.6)
[2025-02-19 05:52] LABS: Hemoglobin 8.7 g/dL (13.5-16.0)
[2025-02-19 06:29] LABS: Alanine Aminotransferase 28 U/L (10-49); Albumin, Serum 3.4 gm/dL (3.5-5.0); Albumin/Globulin Ratio 0.9 (1.2-2.2); Alkaline Phosphatase 139 U/L (46-116); Anion Gap 10 (7-16); Aspartate Amino Transferase 22 U/L (0-34); BUN/Creatinine Ratio 17 Ratio (12-20); Bilirubin,Total < 0.2 mg/dL (0.3-1.2); Blood Urea Nitrogen 10 mg/dL (9-23); Calcium 10.1 mg/dL (8.3-10.6); Calcium (Corrected) 10.6 mg/dL (8.5-10.1); Carbon Dioxide 24.1 mMol/L (20.0-31.0); Chloride 105 mMol/L (98-107); Creatinine (Component) 0.6 mg/dL (0.6-1.3); Estimated Creatinine Clearance 143.6 mL/min (>60); Globulin 4.0 gm/dL (2.3-3.5); Glucose 80 mg/dL (74-106); Magnesium 1.3 mg/dL (1.6-2.6); Osmolality,Calculated 275 (275-295); Phosphorous 3.7 mg/dL (2.4-5.1); Potassium 3.7 mMol/L (3.4-5.1); Sodium 139 mMol/L (136-145); Total Protein 7.4 gm/dL (5.7-8.2); eGFR > 60 See Note
--- NOTE | 2025-02-19 09:08 | PC.SS ---
Addendum entered by Madeline Chacon 02/19/25 11:13: Per bedside nurse, Ketty pt is not on physic meds, anxiety, or depression meds. Addendum entered by Madeline Chacon 02/19/25 10:06: PASRR assessment completed. Original Note: SS spoke to Anne from [facility] who explained pt lost his bedhold and will be a re admit and pt requires a new PASRR assessment. Anne is aware pt will return today.
[2025-02-19] MEDS: METOPROLOL TARTRATE 25 MG TABLET 100 MG GT (09:34)
[2025-02-19] MEDS: POLYETHYLENE GLYCOL 17 GM PACKET 34 GM GT (09:37)
[2025-02-19] MEDS: POTASSIUM CHLORIDE 10% 20 MEQ/15 ML UDC 40 MEQ GT (09:38)
[2025-02-19] MEDS: HEPARIN SOD INJ 5000 UNIT/ML VIAL SC (09:38)
[2025-02-19] MEDS: Magnesium Sulfate 4 GM Ivpb 4 GM/50 ML BAG IV (09:38)
[2025-02-19] MEDS: levETIRAcetam LIQD 500 MG/5 ML UDC 1000 MG PO (09:38)
--- NOTE | 2025-02-19 11:33 | PC.NURSE ---
d/c order in, per Madeline, AD pt needs insurance auth before returning back to subacute for bed.
--- NOTE | 2025-02-19 11:51 | ESDS_ITS ---
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 Patient was treated with IV antibiotics and wound care was consulted for recommendations. Patient improved clinically and will be discharged back to subacute facility. Recommend continuing chest physiotherapy and suggest addition of mucolytic as the patient had thick secretions secondary to tracheostomy site. I have personally seen and examined the patient. I agree with the resident's discharge summary as documented below. Darryl Robbins DO PGY-2 Internal Medicine - [facility] Planned Discharge Date 02/19/25 DS: Providers Provider Date of admission: 02/12/25 08:08 Primary care physician: Paul Nichols MD Admitting Provider: Beth Ashford MD Attending Provider on Admission: Vianey Bernard DO Consults: 02/12/25 08:23 Referral Registered Dietitian Stat Comment: Referral Wound Care Stat Comment: 02/12/25 10:57 Referral Wound Care Routine Comment: Attending Provider on DC: RESIDENT Jam Discharging Provider: RESIDENT Jam DS: Diagnosis Problem List Completed Was Problem List Reviewed/Reconciled?: Yes Hospital Course Hospital Course Hospital course: Summary: Patient is a 29 year old male with 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 ED Course: Vitals: BP 133/103, HR 129, RR 27, temp 101.4 Labs: WBC 14.1, Hgb 9.4, ESR 75, PT 14.9, INR 1.4, ABG 7.47/32/83/23, BUN 27, Lactic acid 2.2, Ca 11.4, AST/ALT 50/98, alk phos 176, LDH 278, trop and BNP neg, CRP 9.7, procal 0.56. EKG: sinus tachycardia rate 110 with left axis deviation. 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 Patient found to be septic secondary to patient cellulitis and URI. Patient started on cefepime and vancomycin, admitted to the hospital for wound care and management of sepsis. During the hospitalization stay, patient had rapid response called for elevated heart rate, noted to be SIRS positive was resuscitated with IV fluids and improved significantly. Patient's antibiotic therapy was tailored based on cultures: right knee wound culture positive for Staph lyicus and Pseudomonas, left knee culture positive for MRSA and group G strep, urine culture positive for Klebsiella, sputum culture positive for Proteus and Pseudomonas, and 1/2 blood cultures positive for Proteus. Completed 7 day course of Zosyn and 5 day course of clindamycin. Later noted to have increased respiratory secretions for hospitalization repeat chest x-ray for hospitalization showed early hilar pneumonia, treated with breathing treatment every 6 hours, guafenesin TID, and chest PT regularly. Recommend continuing in subacute facility. Otherwise patient has improved significantly for the hospitalization course, is stable to be discharged back to subacute facility. Discharge Recommendations: - Please continue chest PT and frequent deep suctioning at the subacute facility - Please use Guaifenesin 100 mg/ 5mL liquid as a mucolytic every 4 hours as needed - Continue all medications as prescribed in subacute facility Hospital Diagnoses: #Sepsis, resolved 2/2 #URI, Proteus mirabilis, Pseudomonas aeruginosa, Klebsiella pneumoniae #1/2 Blood cultures +Proteus mirabilis #R popliteal fossa cellulitis, Staphylococcus hyicus, Pseudomonas aeruginosa and #L popliteal fossa cellulitis, MRSA and strep gysgalac #UTI, Klebsiella pneumoniae #Microcytic anemia, likely TAHIRA #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 oRbbins, and attending physician, Dr. Bernard. Iman Duncan, PGY-1 Time Spent with Patient Time attestation: Total time spent providing and/or coordinating discharge services: at least 30 minutes of care coordination Time spent: Greater than 30 minutes Exam Vital Signs Temp Pulse Resp BP Pulse Ox O2 Del Method O2 Flow Rate 97.5 F 63 22 H 110/75 100 Blow-by 6 02/19/25 08:00 02/19/25 09:34 02/19/25 08:00 02/19/25 09:34 02/19/25 08:00 02/19/25 08:00 02/19/25 08:00 FiO2 28 02/19/25 08:00 Narrative Exam Physical Exam General: Awake and in no acute distress. Conversational and non-toxic appearing. Nonverbal, opens eyes spontaneously, frail. HEENT: Normocephalic, atraumatic, mucous membranes moist. Tracheostomy midline, no bleeding noted around trach, copious sputum draining from trach tube. Heart: Regular rate and rhythm, normal S1 and S2, no murmurs appreciated. Lungs: Clear to auscultation with no wheezing or crackles. Abdomen: Soft, nondistended, nontender, positive bowel sounds. No guarding or rebound tenderness. PEG tube in place in center of abdomen without eyrthema no purulent drainage, some crusting inside the tube. Neurologic: quadraparesis, extremities contorted, and nonverbal at baseline with eyes opening spontaneously. Able to track with eyes. : Langston cathether in place draining clear urine Extremities: Bilateral popliteal fossa leg wounds 4x4 cm with dressings in place, no evidence of necrosis. Sacral wound, dressed and clean, no purulent drainage noted. R ischium buttock wound, dressed and clean, no purulent drainage noted Skin: No rash or ecchymoses. Discharge Plan Plan Patient Disposition: Xfer Other Disposition Comment: Subacute Patient condition on transfer: Stable Care Plan Goals: Please continue chest PT and frequent deep suctioning at the subacute facility Please use Guaifenesin 100 mg/ 5mL liquid as a mucolytic every 4 hours as needed Continue all medications as prescribed in subacute facility Prescriptions/Referrals Prescriptions/Med Rec: No Action acetaminophen 325 mg tablet 650 mg G-tube Q6HR PRN (Reason: Pain) 30 Days 0RF Rx Instructions: not to exceed 3 gm of tylenol in 24 hours from all other sources albuterol sulfate 2.5 mg /3 mL (0.083 %) solution for nebulization 2.5 mg inhalation Q4H PRN (Reason: shortness of breath or wheezing) 30 Days 0RF ascorbic acid (vitamin C) 500 mg tablet 500 mg G-tube BID 30 Days Qty: 30 0RF atorvastatin 40 mg tablet 40 mg G-tube HS 30 Days Qty: 30 0RF baclofen 20 mg tablet 20 mg G-tube Q6HR 30 Days Qty: 30 0RF bisacodyl [Dulcolax (bisacodyl)] 10 mg suppository 10 mg CO PRN PRN (Reason: No BM Per Bowel Management Protocol) 30 Days 0RF Rx Instructions: Administer as needed on 6th shift, if MOM ineffective. gabapentin 300 mg capsule 300 mg G-tube TID 30 Days Qty: 30 0RF guaifenesin [Noreen-Tussin] 100 mg/5 mL liquid 200 mg G-tube Q4H PRN (Reason: congestion/cough) 30 Days Qty: 118 0RF ipratropium-albuterol 0.5 mg-3 mg(2.5 mg base)/3 mL solution for nebulization 3 ml INH Q2HR PRN (Reason: Wheezing) 30 Days 0RF lansoprazole 30 mg capsule,delayed release(DR/EC) 30 mg G-tube QDAY 30 Days Qty: 30 0RF levetiracetam 100 mg/mL solution 1,000 mg G-tube BID 30 Days Qty: 300 0RF magnesium hydroxide [Milk of Magnesia] 400 mg/5 mL suspension 30 ml G-tube PRN PRN (Reason: Constipation) 30 Days 0RF Rx Instructions: CONC: 400MG/5ML midodrine 5 mg tablet 5 mg G-tube TID PRN (Reason: Hold for SBP>90 and DBP>50) 30 Days 0RF Rx Instructions: do not give last dose of day after 6PM or within 4 hrs of bedtime morphine concentrate 100 mg/5 mL (20 mg/mL) solution 2 mg G-tube TID MDD 6 mg PRN (Reason: GIVE 30 MINS PRIOR TO WOUND TX) 365 Days Qty: 15 0RF multivitamin Tablet 1 tab G-tube QDAY 30 Days Qty: 30 0RF polyethylene glycol 3350 17 gram powder in packet 17 g G-tube PRN PRN (Reason: No BM Per Bowel Management Protocol) 30 Days 0RF Rx Instructions: Mix with 4oz of water before giving. Hold tube feeding for 30 minutes after administration. Notify provider if no results from Miralax. Fleet Enema 19-7 gram/118 mL enema 133 ml CO PRN PRN (Reason: No BM Per Bowel Management Protocol) 30 Days 0RF acetaminophen 325 mg tablet 650 mg G-tube Q4HR PRN (Reason: Fever > 100.0) 30 Days 0RF Rx Instructions: not to exceed 3 gms of tylenol in 24 hours from all other sources metoprolol tartrate 25 mg tablet 100 mg G-tube BID 30 Days Qty: 120 0RF Rx Instructions: Hold for SBP<100 and or HR<60 (BBW) lactulose 10 gram/15 mL solution 10 g feeding tube QDAY 30 Days Qty: 450 0RF Rx Instructions: hold if with loose BM Referrals: Paul Nichols MD [Primary Care Provider] - Patient/Caregiver Discharge Instructions Print Language: Tajik Stand Alone Forms: Claudia Award Info., Patient Portal Info Letter Discharge Order Discharge Orders: Discharge (Routine); Ordered 02/19/25 Ordered By: Darryl Robbins Quality Discharge Quality Measures VTE prophylaxis
[2025-02-19] MEDS: LANSOPRAZOLE 30 MG TAB.RAP.DR GT (11:52)
--- NOTE | 2025-02-19 14:21 | PC.NURSE ---
This nurse called subacute and gave report to nurse. Patient is getting transferred from floor 3 to [facility].
== END 2025-02-19 14:30 | disposition other institution (70) | DRG 383 ==
LOC: SERX 06:41 → SERHOLD 08:19 → S3NX 10:18
PROVIDERS: Admitting Provider Student in an Organized Health Care Education/Training Program; Emergency Provider Emergency Medicine; PCP Specialist; Visit Provider Internal Medicine
DX: L03.116 Cellulitis of left lower limb (principal); N39.0 Urinary tract infection, site not specified; R40.3 Persistent vegetative state; L89.154 Pressure ulcer of sacral region, stage 4; D50.9 Iron deficiency anemia, unspecified; Y84.8 Other medical procedures as the cause of abnormal reaction of the patient, or of later complication, without mention of misadventure at the time of the procedure; G82.50 Quadriplegia, unspecified; G93.40 Encephalopathy, unspecified; I77.6 Arteritis, unspecified; R56.9 Unspecified convulsions; J96.10 Chronic respiratory failure, unspecified whether with hypoxia or hypercapnia; E83.52 Hypercalcemia; Z66 Do not resuscitate; D63.8 Anemia in other chronic diseases classified elsewhere; J15.0 Pneumonia due to Klebsiella pneumoniae; J95.03 Malfunction of tracheostomy stoma; B96.4 Proteus (mirabilis) (morganii) as the cause of diseases classified elsewhere; R74.01 Elevation of levels of liver transaminase levels; M25.461 Effusion, right knee; B96.89 Other specified bacterial agents as the cause of diseases classified elsewhere; J95.851 Ventilator associated pneumonia; M25.462 Effusion, left knee; Z79.899 Other long term (current) drug therapy; Z74.01 Bed confinement status
CPT/HCPCS: 36415; 36600; 71045; 73700; 80053; 80202; 81001; 82803; 83540; 83550; 83605; 83615; 83690; 83735; 83880; 83970; 84100; 84145; 84484; 85014; 85018; 85025; 85610; 85652; 85730; 86140; 86850; 86900; 86901; 86923; 87040; 87077; 87081; 87086; 87186; 87205; 87400; 87811; 93005; 93225; 94640; 94664; 94667; 96365; 96366; 99285; A9270; J0692; J1644; J2270; J2543; J3373; J3375; J3475; J3490; J7030; J7050; J7120; P9016; S0077; J0737

== ENCOUNTER 2025-02-19 14:33 | Inpatient (IN) | payer OTHER, SELFPAY ==
[2025-02-19 15:22] VITALS: BP 122/79; PULSE 71; RESP 22; TEMP 36.3
[2025-02-19 16:05] VITALS: BMI 18.3
--- NOTE | 2025-02-19 17:11 | PC.NURSE ---
Admitted a 29 y/o male from acute care via bed with RN, RT and UNDERWRITING OPERATIONS MANAGER. Resident totally dependent with ADLs, awake, non -verbal. Respiration even and unlabored. No s/s of pain or discomfort. Noted with stage 4 to bilateral posterior knees. As per report received , resident completed the antibiotic for pneumonia this morning at 05:30 and was given [address] Nichols was notified today that resident came back from acute care. Called resident's mother and made aware that resident is back in subacute.
[2025-02-19 17:14] VITALS: BP 125/83; PULSE 73; RESP 20; TEMP 36.2; O2SAT 99
--- NOTE | 2025-02-19 18:25 | PC.NURSE ---
Called [facility] earlier today and said medicines will be coming out tonight.
[2025-02-19 19:12] VITALS: PULSE 73; RESP 18; O2SAT 99
[2025-02-19] MEDS: ATORVASTATIN 40 MG TABLET GT (20:04)
[2025-02-19] MEDS: ASCORBIC ACID 500 MG TABLET GT (20:04)
[2025-02-19 20:05] VITALS: BP 123/80; PULSE 90
[2025-02-19] MEDS: METOPROLOL 25 MG TABLET 100 MG GT (20:05)
[2025-02-19] MEDS: GABAPENTIN 300 MG CAPSULE GT (21:20)
--- NOTE | 2025-02-19 22:50 | PD.SAHP ---
Physical exam Physical Exam Vital signs: Temp Pulse Resp BP Pulse Ox O2 Del Method O2 Flow Rate 97.8 F 100 18 125/88 H 98 Blow-by 6 02/21/25 06:00 02/21/25 08:27 02/21/25 06:41 02/21/25 08:27 02/21/25 06:41 02/20/25 06:00 02/21/25 06:41 FiO2 28 02/21/25 06:41 Constitutional Comments: NAD HEENT Exam Comments: NAD. Cannot participate in evaluation Neck Exam Neck: Present supple Chest/Breast/Axilla Exam Comments: NAD Respiratory Exam Respiratory: Present chest non-tender, lungs clear and normal breath sounds Cardiovascular Exam Cardiovascular: Present RRR, S1 and S2 Abdominal Exam Comments: NAD Rectal Exam Comments: deferred Exam Comments: NAD Extremities Exam Comments: Quadriparesis Back/Spine/Pelvis Exam Comments: NAD Neurological Exam Comments: spontaneous eye opening, no response to verbal stimuli; quadriparesis; incontinent of bladder and bowel. 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 failure/ Trach/ Peg, non responsive and with Quadriparesis. Pt was received back from acute care after treatment Ventilator associated pn; UTI; Popliteal fossa ulcerations.
[2025-02-20] VITALS (9 sets, daily range): BP systolic 126–141; BP diastolic 80–88; PULSE 69–81; RESP 18–30; TEMP 36–36.2; O2SAT 97–99
[2025-02-20] MEDS: BACLOFEN 20 MG TABLET GT ×4 (00:03→17:25)
[2025-02-20] MEDS: GABAPENTIN 300 MG CAPSULE GT ×3 (05:39→21:28)
[2025-02-20] MEDS: ASCORBIC ACID 500 MG TABLET GT ×2 (09:00→20:13)
[2025-02-20] MEDS: LACTULOSE 10 GM 10 EA FEED TUBE (09:01)
[2025-02-20] MEDS: METOPROLOL 25 MG TABLET 100 MG GT ×2 (09:03→20:14)
[2025-02-20] MEDS: LANSOPRAZOLE 30 MG CAPSULE.DR GT (09:03)
[2025-02-20] MEDS: MULTIVITAMIN 1 TAB TABLET GT (09:04)
--- NOTE | 2025-02-20 09:35 | PC.IP ---
Resident RP has refused vaccines; explanation of resident 'never' consenting to immunize. Will continue to offer education regarding immunizations.
[2025-02-20] MEDS: ATORVASTATIN 40 MG TABLET GT (20:14)
[2025-02-21] VITALS (9 sets, daily range): BP systolic 106–144; BP diastolic 70–99; PULSE 76–189; RESP 16–48; TEMP 36.1–40.1; O2SAT 98–100
[2025-02-21] MEDS: BACLOFEN 20 MG TABLET GT ×4 (00:02→17:39)
[2025-02-21] MEDS: GABAPENTIN 300 MG CAPSULE GT ×2 (05:04→14:15)
[2025-02-21] MEDS: ASCORBIC ACID 500 MG TABLET GT (08:26)
[2025-02-21] MEDS: LANSOPRAZOLE 30 MG CAPSULE.DR GT (08:26)
[2025-02-21] MEDS: LACTULOSE 10 GM 10 EA FEED TUBE (08:26)
[2025-02-21] MEDS: METOPROLOL 25 MG TABLET 100 MG GT (08:27)
[2025-02-21] MEDS: MULTIVITAMIN 1 TAB TABLET GT (08:28)
[2025-02-21] MEDS: ACETAMINOPHEN 325 MG TABLET 650 MG GT ×2 (08:30→19:30)
--- NOTE | 2025-02-21 08:55 | PD.SAPROG ---
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 (7) Encephalopathy: Status: Chronic (8) Quadriparesis: Status: Chronic SUBJECTIVE Fever:: none Shortness of Breath:: none Pain:: none OBJECTIVE Most recent vital signs: Last Vital Signs Temp 97.8 F 02/21/25 06:00 Pulse 100 02/21/25 08:27 Resp 18 02/21/25 06:41 BP 125/88 H 02/21/25 08:27 Pulse Ox 98 02/21/25 06:41 O2 Del Method Blow-by 02/20/25 06:00 O2 Flow Rate 6 02/21/25 06:41 FiO2 28 02/21/25 06:41 Neurological:: PVS Speech:: none Answers questions:: no Respiratory:: shallow breathing Cardiovascular: RRR Abdomen: soft Extremities:: deformities Decubitus:: unchanged Tracheostomy:: to ventilator Feeding per:: G tube Complaints:: none ASSESSMENT & PLAN Assessment: 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 VSS Plan: All current treatment as in acute care was reviewed and continued
--- NOTE | 2025-02-21 15:00 | PC.SS ---
Resident was readmitted from the Acute on 02/19/25 for Pneumonia with sepsis. Family aware and admit pack mailed to them due to no vehicle to come in right now. He remains on BB to Trach with GT feedings. Jonathon well.
--- NOTE | 2025-02-21 23:12 | PC.NURSE ---
Addendum entered by Meche Mitchell RN 02/21/25 23:22: Late entry for 02/21/25@1933: Jaquelin Rivas notified of pt's change in condition and transfer to ED. Original Note: Late entry for 02/21/25@1900: During change of shift, this jingle writer was approached by [facility] shift MACHINE OPERATOR [employer] and informed that pt did not appear well and that his temp was at 104.1, HR 205, and RR 56. This jingle writer called ED to check on a bed and informed ED charge that pt was going to be sent to them. All forms gather for transfer, pt medicated by tylenol 650mg pgt for fever and notified of change in condition.
--- NOTE | 2025-02-22 05:58 | PC.NURSE ---
1850 Resident noticed by EXTRAS CASTING DIRECTOR to be in Distress. VS along with Rectal temp checked at this time; r104.1, rr48, hr189 bp144/93. Xnp262% Charge Nurse contacted ED for Transfer Tylenol administered at 1930 Resident Transferred by RT Nurse and EXTRAS CASTING DIRECTOR to [facility] in ED 1950 Report Given at bedside to receiving Nurse resident subsequently admitted for management of Severe Sepsis
--- NOTE | 2025-03-05 14:47 | PC.NURSE ---
Spoke with residents mom Sara Qureshi to find out if she had been notified of the residents transfer to ED and admission to ICU on 02/21/2025. I was filling out the Bed hold form. She stated that she was not notified. I told her that he was running a very high fever on 02/21/2025 around 1900. He was then transferred up. I let her know he was on a 7 day bed hold and today was discharged. I let her know that as soon as he returns I will be doing a new admission packet with her. She understood and was thankful.
== END 2025-02-28 00:01 | disposition admitted as inpatient to this hospital (09) | DRG 130 ==
PROVIDERS: Admitting Provider Specialist; PCP Specialist; Visit Provider Specialist
DX: J96.10 Chronic respiratory failure, unspecified whether with hypoxia or hypercapnia (principal); I77.6 Arteritis, unspecified; G82.50 Quadriplegia, unspecified; D63.8 Anemia in other chronic diseases classified elsewhere; R56.9 Unspecified convulsions; G93.49 Other encephalopathy; Z93.1 Gastrostomy status; Z93.0 Tracheostomy status; Z66 Do not resuscitate
CPT/HCPCS: 85025; 92523

== ENCOUNTER 2025-02-21 19:50 | Inpatient (IN) | payer OTHER, SELFPAY ==
[2025-02-21] VITALS (27 sets, daily range): BP systolic 114–166; BP diastolic 57–105; PULSE 111–203; RESP 19–52; TEMP 39.8–41.1; O2SAT 95–99; BMI 17.4
--- NOTE | 2025-02-21 19:58 | EKG_ITS ---
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
--- NOTE | 2025-02-21 20:07 | XR_ITS ---
Examination: AP chest single view. Technique: AP portable semiupright chest single view Date and time: February 21, 2025, 2020 hrs. Comparison: February 14, 2025 Indications: Sepsis protocol Findings: Subtle diffuse opacity in both lungs Normal heart size Mild osteopenia Impression: Suspicious for early diffuse bilateral pneumonia
--- NOTE | 2025-02-21 20:11 | PD.EDFEVER ---
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 Patient was recently discharged from inpatient for sepsis secondary to ventilator related pneumonia, cellulitis of the leg, was discharged home 2 days ago. On my initial evaluation patient was noted to have a fever of 106 respiratory rate of 52, oxygen 97% on trach attached to the ventilator, and tachycardic heart rate of 200. Related Data Previous Rx's ?Medication ?Instructions ?Recorded acetaminophen 325 mg tablet 650 mg (2 x 325 mg) G-tube Q4HR 02/19/25 PRN Fever > 100.0 30 days acetaminophen 325 mg tablet 650 mg (2 x 325 mg) G-tube Q6HR 02/19/25 PRN Pain 30 days albuterol sulfate 2.5 mg/3 mL 2.5 mg (3 mL) inhalation Q4H PRN 02/19/25 (0.083 %) solution for nebulization shortness of breath or wheezing 30 days ascorbic acid (vitamin C) 500 mg 500 mg G-tube BID for supplement 02/19/25 tablet 30 days #30 tabs atorvastatin 40 mg tablet 40 mg G-tube HS for hyperlipidemia 02/19/25 30 days #30 tabs baclofen 20 mg tablet 20 mg G-tube Q6HR for muscle spasm 02/19/25 30 days #30 tabs bisacodyl 10 mg rectal suppository 10 mg NC PRN PRN No BM Per Bowel 02/19/25 (Dulcolax (bisacodyl)) Management Protocol 30 days gabapentin 300 mg capsule 300 mg G-tube TID for neuropathic 02/19/25 pain 30 days #30 caps guaifenesin 100 mg/5 mL oral 200 mg (10 mL) G-tube Q4H PRN 02/19/25 liquid (Noreen-Tussin) congestion/cough 30 days #118 mL ipratropium 0.5 mg-albuterol 3 mg 3 ml INH Q2HR PRN Wheezing 30 days 02/19/25 (2.5 mg base)/3 mL nebulization soln lactulose 10 gram/15 mL oral 10 g (15 mL) feeding tube QDAY for 02/19/25 solution constipation 30 days #450 mL lansoprazole 30 mg capsule,delayed 30 mg G-tube QDAY GERD 30 days #30 02/19/25 release caps levetiracetam 100 mg/mL oral 1,000 mg (10 mL) G-tube BID for 02/19/25 solution seizures 30 days #300 mL magnesium hydroxide 400 mg/5 mL 30 ml G-tube PRN PRN Constipation 02/19/25 oral suspension (Milk of Magnesia) 30 days metoprolol tartrate 25 mg tablet 100 mg (4 x 25 mg) G-tube BID for 02/19/25 hypertension, tachycardia 30 days #120 tabs midodrine 5 mg tablet 5 mg G-tube TID PRN Hold for 02/19/25 SBP>90 and DBP>50 30 days morphine concentrate 100 mg/5 mL 2 mg (0.1 mL) G-tube TID PRN GIVE 02/19/25 (20 mg/mL) oral solution 30 MINS PRIOR TO WOUND TX 365 days #15 mL multivitamin 1 tab G-tube QDAY supplement 30 02/19/25 days #30 tabs polyethylene glycol 3350 17 gram 17 g G-tube PRN PRN No BM Per 02/19/25 oral powder packet Bowel Management Protocol 30 days sodium phosphates 19 gram-7 133 ml NC PRN PRN No BM Per Bowel 02/19/25 gram/118 mL enema (Fleet Enema) Management Protocol 30 days Allergies Allergy/AdvReac Type Severity Reaction Status Date / Time No Known Allergies Allergy Unverified 10/23/24 09:16 Review of Systems Review of Systems ROS Unobtainable: unobtainable due to mental status and unobtainable due to medical condition Physical Exam Narrative Physical exam: VITAL SIGNS: Reviewed. GENERAL APPEARANCE: Awake, nonverbal does not follows commands, acute respiratory distress, febrile HEAD AND FACE: Non-traumatic. ENT: PERRL, pink conjunctivitis, eyelid no trauma, Mucous membrane moist. NECK: Supple, nontender, no nuchal rigidity. CHEST: Tachypneic, no paradoxical movement, + retractions. LUNGS: Trach, attached to ventilator, symmetric, tachypneic, decreased breath sounds bilaterally. HEART: Tachycardic, no murmur, no gallops. ABDOMEN: Soft, positive bowel sounds, nondistended, no guarding, no rebound, no masses, PEG tube intact RECTAL: Deferred. GENITAL: Deferred. NEUROLOGICAL: Contracted bilateral upper and lower extremity MUSCULOSKELETAL: limited mobility due to medical condition EXTREMITIES: Bilateral lower extremity wound with dressing posterior aspect, limited mobility, internally pronated bilateral upper extremity, atrophy, contracted SKIN: Color flush diaphoretic, dry, no rash, LYMPHATICS: Deferred. Course Quality Measures none Orders Category Date Time Status Bedside COVID-19 Antigen Test NOW Care 02/21/25 22:48 Active Unbundler STAT Care 02/21/25 20:07 Active Continuous Pulse Oximetry STAT Care 02/21/25 20:07 Completed EKG (ED ONLY) *Do not use* NOW Care 02/21/25 19:58 Completed EKG (ED ONLY) *Do not use* NOW Care 02/21/25 20:07 Completed Langston [Urinary Catheter] QS Care 02/21/25 22:29 Active In and Out Catheter X1PRN Care 02/21/25 20:07 Completed Insert IV NOW Care 02/21/25 20:07 Active NPO STAT Care 02/21/25 20:07 Active Strict Intake and Output Routine Care 02/21/25 20:07 Ordered EKG (ED Only) Stat Exams 02/21/25 19:58 Ordered EKG (ED Only) Stat Exams 02/21/25 20:07 Ordered XR chest 1V SEPSIS PROTOCOL Stat Exams 02/21/25 20:07 Completed ABG [Arterial Blood Gas] Stat Lab 02/21/25 23:11 Ordered B-Type Natriuretic Peptide Stat Lab 02/21/25 20:25 Completed Blood Culture (Lab) Stat Lab 02/21/25 20:25 Received CBC Stat Lab 02/21/25 20:25 Completed Comprehensive Metabolic Panel Stat Lab 02/21/25 20:25 Completed FLU A&B [Influenza A & B Rapid Panel] Stat Lab 02/21/25 22:50 Ordered Free T4 (Free Thyroxine) Stat Lab 02/21/25 00:12 Completed LDH (Lactate Dehydrogenase) Stat Lab 02/21/25 20:25 Completed Lactate (Lactic Acid) Stat Lab 02/21/25 20:25 Completed Lactate (Lactic Acid) Stat Lab 02/21/25 23:59 Results Lipase Stat Lab 02/21/25 20:25 Completed Magnesium Stat Lab 02/21/25 20:25 Completed Partial Thromboplastin Time Stat Lab 02/21/25 20:25 Completed Phosphorous Stat Lab 02/21/25 20:25 Completed Procalcitonin Stat Lab 02/21/25 20:25 Completed Prothrombin Time with INR Stat Lab 02/21/25 20:25 Completed TSH [Thyroid Stimulating Hormone] Stat Lab 02/21/25 00:12 Completed Troponin I Stat Lab 02/21/25 20:25 Completed Urinalysis, C/S if Indicated Stat Lab 02/21/25 20:20 Completed VBG [Venous Blood Gas] Stat Lab 02/21/25 23:11 Completed Acetaminophen Ivpb [Ofirmev Inj] Med 02/21/25 20:08 Discontinued 1,000 mg in 100 ml IV X1 Adenosine 6mg Inj [Adenocard Inj] Med 02/21/25 22:49 Discontinued 12 mg IVP X1 ONE Adenosine 6mg Inj [Adenocard Inj] Med 02/21/25 22:49 Discontinued 6 mg IVP X1 ONE Fluconazole/Ns 400 mg Ivpb [Diflucan/Ns Ivpb] Med 02/21/25 23:00 Discontinued 400 mg in 200 ml IV X1 Ibuprofen Susp [Motrin Susp] Med 02/21/25 20:32 Discontinued 600 mg PO X1 ONE Magnesium Sulfate 4 GM Ivpb [Magnesium Sulfate Ivpb] Med 02/21/25 23:02 Discontinued 4 gm in 50 ml IV X1 Metoprolol Tartrate Inj [Lopressor Inj] Med 02/21/25 20:08 Discontinued 5 mg IVP X1 ONE Piper/Tazo 3.375 gm Premix [Zosyn] Med 02/21/25 20:08 Discontinued 3.375 gm in 50 ml IV X1 Ringers Lactated 1000 ml [Lactated Ringers] 1,000 ml Med 02/21/25 20:16 Discontinued IV 999 mls/hr Ringers Lactated 1000 ml [Lactated Ringers] 1,000 ml Med 02/21/25 20:37 Discontinued IV 999 mls/hr Ringers Lactated 1000 ml [Lactated Ringers] 1,000 ml Med 02/21/25 22:29 Discontinued IV 999 mls/hr Vancomycin/Ns 1 gm Ivpb 200 ml Med 02/21/25 20:38 Discontinued IV X1 Oxygen Delivery NOW RT 02/21/25 20:07 Active Vital Signs Vital signs: Vital Signs Temperature 106 F H 02/21/25 20:01 Respiratory Rate 52 H 02/21/25 20:01 Blood Pressure 163/95 H 02/21/25 20:01 Pulse Oximetry (%) 97 02/21/25 20:01 Oxygen Delivery Method Trach Collar 02/21/25 20:01 Fever MDM Narrative MDM Narrative:: 29 year old male with PMH of 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 Patient was recently discharged from inpatient for sepsis secondary to ventilator related pneumonia, cellulitis of the leg, was discharged home 2 days ago. On my initial evaluation patient was noted to have a fever of 106 respiratory rate of 52, oxygen 97% on trach attached to the ventilator, and tachycardic heart rate of 200. Sepsis alert was initiated right away. Patient received total of 3 L IV fluids, IV Tylenol, PEG tube Motrin, IV vancomycin and IV Zosyn. Patient was noted to have leukocytosis, chest x-ray showed pneumonia, lactic acid was noted to be 16, CO2 12 Cooling measures were applied aggressively. Patient case discussed with hospitalist, who admitted the patient. 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 Medications / Prescriptions Medications or Prescriptions considered but not ordered:: None Medication administrations:: Medication Administration History Hydrocodone Bitart/Acetaminophen (Hydrocodone/Apap 10/325 Tab) 1 tab GT Q4HR PRN PRN Reason: PAIN SCALE 7-10 (Severe Stop: 02/26/25 23:13 Albuterol/Ipratropium (Albuterol/Ipratropium (Duoneb) Rt [place] 3 Ml Nebu) 3 ml INH Q6HRRT [facility] Stop: 03/24/25 12:59 Baclofen (Baclofen 10 Mg Tablet) 20 mg GT Q6HR PRN PRN Reason: Spasms Stop: 03/24/25 07:40 Gabapentin (Gabapentin 300 Mg Capsule) 300 mg GT TID [facility] Stop: 03/24/25 07:44 Last Admin: 02/22/25 09:16 Dose: 300 mg Documented By: BY Heparin Sodium (Porcine) (Heparin Sod Inj 5000 Unit/Ml Vial) 5,000 unit SC BID [facility] Stop: 03/08/25 08:59 Last Admin: 02/22/25 09:29 Dose: 5,000 unit Documented By: BY Co-signed By: KATHIE Vancomycin/Sodium Chloride (Vancomycin/Ns 750 Mg Ivpb) 750 mg in 150 mls @ 120 mls/hr IV Q12H [facility] Stop: 03/01/25 21:59 Cefepime HCl 2 gm/ Sodium (Chloride) 50 mls @ 100 mls/hr IV Q8HR [facility] Stop: 03/01/25 07:14 Last Infusion: 02/22/25 09:45 Dose: Infused Documented By: Admin: 02/22/25 09:14 Dose: 100 mls/hr Documented By: BY Acetaminophen (Ofirmev Inj) 1,000 mg in 100 mls @ 250 mls/hr IV Q6HR PRN; Protocol PRN Reason: Fever >100.4 or Pain Dextrose/Sodium Chloride (D5-Ns) 1,000 mls @ 70 mls/hr IV .[id number] [facility] Stop: 02/22/25 21:47 Last Admin: 02/22/25 08:14 Dose: 70 mls/hr Documented By: BY Levetiracetam (Levetiracetam 250 Mg Tablet) 1,000 mg GT BID [facility] Stop: 03/24/25 08:59 Last Admin: 02/22/25 09:16 Dose: 1,000 mg Documented By: BY Metoprolol Tartrate (Metoprolol Tartrate 25 Mg Tablet) 50 mg GT BID [facility] Stop: 03/24/25 12:29 Midodrine (Midodrine 5 Mg Tablet) 5 mg GT TID PRN PRN Reason: Systolic BP <90 Stop: 03/24/25 13:59 Ondansetron HCl (Ondansetron Inj 2 Mg/Ml Inj 2 Ml) 4 mg IVP Q6H PRN; Protocol PRN Reason: NAUSEA OR VOMITING Stop: 03/23/25 23:13 Oxycodone/Acetaminophen (Oxycodone/Apap 5/325 Tablet) 1 tab GT Q6H PRN PRN Reason: PAIN SCALE 4-6 (Moderate Stop: 02/26/25 23:13 Pantoprazole Sodium (Pantoprazole Inj 40 Mg Vial) 40 mg IVP QDAY [facility] Stop: 03/24/25 08:59 Last Admin: 02/22/25 09:15 Dose: 40 mg Documented By: BY Pharmacy Consult (Vancomycin Pharmacy To Dose 1 Each Each) 1 each IV QDAY PRN PRN Reason: PROTOCOL Stop: 03/24/25 08:59 Sodium Chloride (Sodium Cl Rt [place] 3% 4 Ml Nebu (Non-Formulary)) 4 ml INH Q6HRRT [facility] Stop: 03/24/25 12:59 Discontinued Medications Acetaminophen (Acetaminophen 325 Mg Tablet) 650 mg PO Q6H PRN PRN Reason: PAIN SCALE 1-3 (mild Stop: 03/23/25 23:13 Acetaminophen (Acetaminophen 325 Mg Tablet) 650 mg PO Q6H PRN PRN Reason: Fever >100.4 Stop: 03/23/25 23:13 Hydrocodone Bitart/Acetaminophen (Hydrocodone/Apap 10/325 Tab) 1 tab PO Q4HR PRN PRN Reason: PAIN SCALE 7-10 (Severe Stop: 02/26/25 23:13 Adenosine (Adenosine Inj 3 Mg/Ml Vial) 6 mg IVP X1 ONE Stop: 02/21/25 22:50 Last Admin: 02/21/25 23:18 Dose: 6 mg Documented By: [email or web address] Adenosine (Adenosine Inj 3 Mg/Ml Vial) 12 mg IVP X1 ONE Stop: 02/21/25 22:50 Last Admin: 02/21/25 23:22 Dose: 12 mg Documented By: [email or web address] Adenosine (Adenosine Inj 3 Mg/Ml Vial) 12 mg IVP X1 ONE Stop: 02/21/25 23:23 Last Admin: 02/21/25 23:29 Dose: 12 mg Documented By: KEKE Dextrose (Dextrose 50%-Water Inj 50 Ml Syringe) 50 ml IVP X1 ONE Stop: 02/22/25 08:15 Last Admin: 02/22/25 08:22 Dose: 50 ml Documented By: SHAYY Dextrose (Dextrose 50%-Water Inj 50 Ml Syringe) 50 ml IVP X1 ONE Stop: 02/22/25 11:34 Acetaminophen (Ofirmev Inj) 1,000 mg in 100 mls @ 250 mls/hr IV X1 ONE Stop: 02/21/25 20:31 Last Infusion: 02/21/25 21:07 Dose: Infused Documented By: Admin: 02/21/25 20:22 Dose: 250 mls/hr Documented By: KEKE Comments: tylenol 650 mg given before in snf provider ok to give this dose Piperacillin/Tazobactam/Dextrose (Zosyn) 3.375 gm in 50 mls @ 100 mls/hr IV X1 ONE Stop: 02/21/25 20:37 Last Infusion: 02/21/25 21:07 Dose: Infused Documented By: Admin: 02/21/25 20:33 Dose: 100 mls/hr Documented By: KEKE Lactated Ringer's (Lactated Ringers) 1,000 mls @ 999 mls/hr IV .Q1H1M ONE Stop: 02/21/25 21:16 Last Infusion: 02/21/25 21:26 Dose: Infused Documented By: Admin: 02/21/25 20:24 Dose: 999 mls/hr Documented By: KEKE Lactated Ringer's (Lactated Ringers) 1,000 mls @ 999 mls/hr IV .Q1H1M ONE Stop: 02/21/25 21:37 Last Infusion: 02/21/25 22:29 Dose: Infused Documented By: Admin: 02/21/25 21:17 Dose: 999 mls/hr Documented By: KEKE Vancomycin/Sodium Chloride (Vancomycin/Ns 1 Gm Ivpb) 200 mls @ 120 mls/hr IV X1 ONE Stop: 02/21/25 22:17 Last Infusion: 02/21/25 22:53 Dose: Infused Documented By: Admin: 02/21/25 21:08 Dose: 120 mls/hr Documented By: KEKE Lactated Ringer's (Lactated Ringers) 1,000 mls @ 999 mls/hr IV .Q1H1M ONE Stop: 02/21/25 23:29 Last Infusion: 02/22/25 01:07 Dose: Infused Documented By: Admin: 02/21/25 22:45 Dose: 999 mls/hr Documented By: KEKE Fluconazole (Diflucan/Ns Ivpb) 400 mg in 200 mls @ 100 mls/hr IV X1 ONE Stop: 02/22/25 00:59 Last Infusion: 02/22/25 03:12 Dose: Infused Documented By: Admin: 02/22/25 01:09 Dose: 100 mls/hr Documented By: EL Magnesium Sulfate (Magnesium Sulfate Ivpb) 4 gm in 50 mls @ 12.5 mls/hr IV X1 ONE Stop: 02/22/25 03:01 Last Infusion: 02/22/25 03:12 Dose: Infused Documented By: Admin: 02/21/25 23:17 Dose: 12.5 mls/hr Documented By: KEKE Acyclovir Sodium 585 mg/ (Sodium Chloride) 111.7 mls @ 100 mls/hr IV Q8HR [facility] Stop: 02/28/25 23:31 Last Admin: 02/22/25 01:07 Dose: Not Given Documented By: EL Non-Admin Reason: Cancelled by Provider Lactated Ringer's (Lactated Ringers) 1,000 mls @ 999 mls/hr IV .Q1H1M ONE Stop: 02/22/25 00:39 Last Infusion: 02/22/25 01:07 Dose: Infused Documented By: Admin: 02/21/25 23:48 Dose: 999 mls/hr Documented By: KEKE Acetaminophen (Ofirmev Inj) 1,000 mg in 100 mls @ 250 mls/hr IV Q6HR [facility] Stop: 02/22/25 12:23 Last Admin: 02/22/25 06:22 Dose: Not Given Documented By: KEKE Non-Admin Reason: Cancelled by Provider Infusion: 02/22/25 01:06 Dose: Infused Documented By: Admin: 02/22/25 00:39 Dose: Not Given Documented By: EL Non-Admin Reason: Duplicate Medication on eMAR Admin: 02/22/25 00:37 Dose: 250 mls/hr Documented By: EL Acyclovir Sodium 500 mg/ (Sodium Chloride) 110 mls @ 100 mls/hr IV Q8HR [facility] Stop: 03/01/25 05:59 Acyclovir Sodium 500 mg/ (Sodium Chloride) 110 mls @ 100 mls/hr IV X1 ONE Stop: 02/22/25 03:35 Last Infusion: 02/22/25 04:15 Dose: Infused Documented By: Admin: 02/22/25 03:03 Dose: 100 mls/hr Documented By: KEKE Ceftriaxone Sodium 2 gm/ (Sodium Chloride) 50 mls @ 100 mls/hr IV Q12HR [facility] Stop: 03/01/25 20:59 Ceftriaxone Sodium 2 gm/ (Sodium Chloride) 50 mls @ 100 mls/hr IV X1 ONE Stop: 02/22/25 05:29 Last Infusion: 02/22/25 05:58 Dose: Infused Documented By: Admin: 02/22/25 05:26 Dose: 100 mls/hr Documented By: KEKE Vancomycin/Sodium Chloride (Vancomycin/Ns 1 Gm Ivpb) 200 mls @ 120 mls/hr IV X1 ONE Stop: 02/22/25 07:39 Last Admin: 02/22/25 05:54 Dose: 120 mls/hr Documented By: KEKE Ibuprofen (Ibuprofen Susp 100 Mg/5 Ml Udc) 600 mg PO X1 ONE Stop: 02/21/25 20:33 Last Admin: 02/21/25 20:49 Dose: 600 mg Documented By: KEKE Metoprolol Tartrate (Metoprolol Tartrate Inj 1 Mg/Ml Amp 5 Ml) 5 mg IVP X1 ONE Stop: 02/21/25 20:09 Last Admin: 02/21/25 20:26 Dose: 5 mg Documented By: KEKE Metoprolol Tartrate (Metoprolol Tartrate 25 Mg Tablet) 100 mg GT BID [facility] Stop: 03/24/25 08:59 Last Admin: 02/22/25 08:40 Dose: Not Given Documented By: BY Non-Admin Reason: Cancelled by Provider Oxycodone/Acetaminophen (Oxycodone/Apap 5/325 Tablet) 1 tab PO Q6H PRN PRN Reason: PAIN SCALE 4-6 (Moderate Stop: 02/26/25 23:13 Sodium Bicarbonate (Sodium Bicarb Inj 8.4% Syr 50 Ml Syringe) 50 ml IV X1 ONE Stop: 02/21/25 23:50 Last Admin: 02/22/25 00:34 Dose: 50 ml Documented By: EL Sodium Chloride (Sodium Chloride Rt 10% 15 Ml Nebu) 5 ml INH X1 ONE Stop: 02/22/25 07:23 Last Admin: 02/22/25 11:23 Dose: Not Given Documented By: DARREL Non-Admin Reason: Other, see note Comments: not needed to obtain sputum sample. Sodium Chloride (Sodium Cl Rt [place] 3% 4 Ml Nebu (Non-Formulary)) 4 ml INH Q8HRRT [facility] Stop: 03/24/25 07:29 IV fluids total 3 L, IV Tylenol, Motrin, Vanco and Zosyn Consultations Consultation(s) initiated? (list below): No Diagnosis Fever Differential Diagnosis: fever of unknown origin, pyelonephritis, viral infection and sepsis Most likely diagnosis given after review of the tests above:: Sepsis Admission Indicated Admission indicated?: indicated Admission Request Was there a request for admission?: Yes Admission Attestation Admission request attestation: Discussed case with Hospitalist service regarding admission. Discussed patients ED course, exam findings, labs, and radiology results. The Hospitalist [agrees to accept the patient for admission. Disposition Plan Disposition Plan: Admit Discharge Plan Plan Patient Disposition: Admit Acute Care w/in Hospital Problem List Clinical Impression: Sepsis
[2025-02-21] MEDS: ACETAMINOPHEN IVPB 1,000 MG/100 ML VIAL 250 MG IV (20:22)
[2025-02-21] MEDS: RINGERS LACTATED 1000 ML 1,000 ML 999 ML IV ×4 (20:24→23:48)
[2025-02-21] MEDS: METOPROLOL TARTRATE INJ 1 MG/ML AMP 5 ML 5 MG IVP (20:26)
[2025-02-21] MEDS: PIPER/TAZO 3.375 GM PREMIX 3.375 GM/50 ML BAG IV (20:33)
[2025-02-21 20:37] LABS: Lactate (Lactic Acid) 16.0 mMol/L (0.4-2.0)
[2025-02-21 20:38] LABS: Basophils # (Auto) 0.1 Thou/mm3 (0.0-0.2); Basophils % (Auto) 0 % (0-2.5); Eosinophils # (Auto) 0.2 Thou/mm3 (0.0-0.5); Eosinophils % (Auto) 1 % (0-10); Hematocrit 35.8 % (41.0-53.0); Hemoglobin 11.1 g/dL (13.5-16.0); Immature Granulocytes Auto 0.26 Thou/mm3 (0.00-0.00); Lymphocytes # (Auto) 3.4 Thou/mm3 (1.0-4.8); Lymphocytes % (Auto) 20 % (10-50); Mean Corpuscular HGB Conc 31.0 g/dl (31.0-37.0); Mean Corpuscular Hemoglobin 26.9 pg (25.0-35.0); Mean Corpuscular Volume 87 fL (80-100); Monocytes # (Auto) 1.0 Thou/mm3 (0.0-0.8); Monocytes % (Auto) 6 % (0-12); Neutrophils # (Auto) 12.4 Thou/mm3 (1.8-7.7); Neutrophils % (Auto) 72 % (37-80); Nucleated Red Blood Cell # 0.00 Thou/mm3 (0.00-0.00); Nucleated Red Blood Cell % 0 /100 WBC (0); Platelet Count 485 Thou/mm3 (140-440); RDW Standard Deviation 78.9 fL (35.1-43.9); Red Blood Count 4.12 Miln/mm3 (4.50-5.90); White Blood Count 17.2 Thou/mm3 (3.8-10.6)
[2025-02-21] MEDS: IBUPROFEN SUSP 100 MG/5 ML UDC 600 MG PO (20:49)
[2025-02-21 20:51] LABS: INR 1.4 (0.9-1.3); Partial Thromboplastin Time 25.4 Seconds (22.0-36.0); Prothrombin Time 14.6 Seconds (9.0-12.2)
[2025-02-21 20:53] LABS: B-Type Natriuretic Peptide 25 pg/mL (0-100)
[2025-02-21 21:06] LABS: Collection Type, Urine Clean Catch
[2025-02-21] MEDS: VANCOMYCIN/NS 1 GM IVPB 200 ML IV (21:08)
[2025-02-21 21:11] LABS: Bilirubin,Urine Negative (Negative); Blood,Urine Negative (Negative); Clarity,Urine Clear (Clear/Hazy); Color,Urine Lt-Yellow (Lt Yel-Yel); Culture Indicated,Urine Not Indicated; Glucose, Urine Negative (Negative); Ketones,Urine Negative (Negative); Leukocyte Esterase,Urine Negative (Negative); Nitrite,Urine Negative (Negative); PH,Urine 7.0 (5.0-7.0); Protein,Urine Negative (Neg - Trace); RBC,Urine 3 /hpf (0-3); Specific Gravity,Urine 1.013 (1.001-1.035); Squamous Epithelial Cell,Urine 2 /hpf (0-5); Urobilinogen,Urine Negative mg/dL (0.0-1.0); WBC,Urine 1 /hpf (0-5)
[2025-02-21 21:20] LABS: Alanine Aminotransferase 36 U/L (10-49); Albumin, Serum 4.4 gm/dL (3.5-5.0); Albumin/Globulin Ratio 0.8 (1.2-2.2); Alkaline Phosphatase 186 U/L (46-116); Anion Gap 27 (7-16); Aspartate Amino Transferase 37 U/L (0-34); BUN/Creatinine Ratio 13 Ratio (12-20); Bilirubin,Total < 0.2 mg/dL (0.3-1.2); Blood Urea Nitrogen 16 mg/dL (9-23); Calcium 11.2 mg/dL (8.3-10.6); Calcium (Corrected) 11.2 mg/dL (8.5-10.1); Chloride 104 mMol/L (98-107); Creatinine (Component) 1.2 mg/dL (0.6-1.3); Estimated Creatinine Clearance 75.9 mL/min (>60); Globulin 5.5 gm/dL (2.3-3.5); Glucose 87 mg/dL (74-106); LDH (Lactate Dehydrogenase) 334 U/L (120-246); Magnesium 1.2 mg/dL (1.6-2.6); Osmolality,Calculated 285 (275-295); Phosphorous 4.3 mg/dL (2.4-5.1); Potassium 5.8 mMol/L (3.4-5.1); Procalcitonin 0.18 ng/ml (0.0-0.49); Sodium 143 mMol/L (136-145); Total Protein 9.9 gm/dL (5.7-8.2); Troponin I 0.026 ng/mL (0.0-0.045); eGFR > 60 See Note
[2025-02-21 21:25] LABS: Carbon Dioxide 12.1 mMol/L (20.0-31.0)
[2025-02-21] MEDS: Magnesium Sulfate 4 GM Ivpb 4 GM/50 ML BAG IV (23:17)
[2025-02-21] MEDS: ADENOSINE INJ 3 MG/ML VIAL 6 MG IVP (23:18)
[2025-02-21] MEDS: ADENOSINE INJ 3 MG/ML VIAL 12 MG IVP ×2 (23:22→23:29)
[2025-02-21 23:30] LABS: Reflex Lactate? Y
[2025-02-21 23:48] LABS: Lipase 46 U/L (12-53)
--- NOTE | 2025-02-21 23:50 | PD.RESHP ---
Documentation for date of: 02/21/25 HPI History of Present Illness History of present illness: Mr Carmona, 29-year-old male with past medical history of cocaine induced cerebral,vasculitis, seizures, anemia, chronic respiratory failure status post tracheostomy, status post PEG tube, nonresponsive with quadriparesis admitted from subacute facility on 02/21/2025 for fever of 106. Patient was recently discharged from inpatient for sepsis secondary to ventilator related pneumonia, cellulitis of the leg, was discharged 3 days ago. On my initial evaluation patient was noted to have a fever of 106, RR of 52, oxygen 97% on trach attached to the ventilator, and tachycardic HR 200. ED Course: -Initial vitals were BP 163/95, pulse 203, respiratory 52, temperature 106, and O2 sat 97% on trach collar. -Labs significant for WBC 17.2, RBC 4.12, hemoglobin 11.1, hematocrit 35.8, platelets 45, potassium 5.8, CO2 12.1, anion gap 27, lactate 16, calcium 9.2, mag 1.2, UA negative -Imaging included chest x-ray showed suspicion for early diffuse bilateral pneumonia. EKG showed Sinus tachycardia. -In the ED, patient was given Tylenol, 4l LR, 5mg metoprolol tartrate, and Zosyn, vancomycin, magnesium sulfate, 3 doses of adenosine (1 of 6mg and 2 of 12mg) -Patient was admitted for severe sepsis workup and management. Review of Systems ROS Unobtainable: unobtainable due to mental status and unobtainable due to medical condition Past Medical History: unobtainable due to mental status, per chart review as above Family History: unable to obtain Surgical History: unable to obtain Social History: unable to obtain Current Medications: as per med rec Allergies: No known drug allergies Exam Vital Signs Temp Pulse Resp BP Pulse Ox O2 Del Method 103.6 F H 160 H 33 H 152/77 H 95 Trach Collar 02/21/25 23:33 02/21/25 23:33 02/21/25 23:33 02/21/25 23:33 02/21/25 23:02/21/25 23:33 Narrative Exam GENERAL: nonverbal, opens eyes spontaneously, frail HEENT: NC/AT, mucous membranes moist, bilateral sclera anicteric, tracheostomy midline, no bleeding noted around trach, some sputum in the trach tube CARDIOVASCULAR: regular rate and rhythm, S1/S2 present, no murmurs appreciated PULMONARY: clear to auscultation bilaterally, no rales/rhonchi/wheezes ABDOMINAL: soft, non-tender, non-distended, no rebound/guarding, bowel sounds present, PEG tube in place in center of abdomen without eyrthema no purulent drainage, some crusting inside the tube. : Langston cathether in place draining clear urine EXTREMITIES: no peripheral edema, LUE is contorted in interior rotation and flexion of the wrist. SKIN: b/l popliteal fossa leg wounds 4x4 cm with dressings in place with purulent drainage, no evidence of necrosis. Sacral wound, dressed and clean, no purulent drainage noted. R ischium buttock wound, dressed and clean, no purulent drainage noted NEURO: quadraplegic, and nonverbal at baseline with eyes opening spontaneously Results: Labs 02/22/25 05:25 02/22/25 05:25 Labs: Short CBC 02/21/25 Range/Units 20:25 WBC 17.2 H D (3.8-10.6) Thou/mm3 Hgb 11.1 L D (13.5-16.0) g/dL Hct 35.8 L (41.0-53.0) % Plt Count 485 H D (140-440) Thou/mm3 BMP 02/21/25 20:25 Sodium 143 Potassium 5.8 H D Chloride 104 Carbon Dioxide 12.1 L* BUN 16 Creatinine 1.2 D Glucose 87 Calcium 11.2 H Cardiac Enzymes 02/21/25 Range/Units 20:25 Troponin I 0.026 (0.0-0.045) ng/mL Liver Function 02/21/25 Range/Units 20:25 Total Bilirubin < 0.2 L (0.3-1.2) mg/dL AST 37 H (0-34) U/L ALT 36 (10-49) U/L Alkaline Phosphatase 186 H D (46-116) U/L Albumin 4.4 D (3.5-5.0) gm/dL Urine 02/21/25 Range/Units 20:20 Urine Color Lt-Yellow (Lt Yel-Yel) Urine Clarity Clear (Clear/Hazy) Urine pH 7.0 (5.0-7.0) Ur Specific Foster 1.013 (1.001-1.035) Urine Protein Negative (Neg - Trace) Urine Glucose (UA) Negative (Negative) Quality Measures Quality Measures VTE prophylaxis Medications Home Medications and Allergies Allergies Allergy/AdvReac Type Severity Reaction Status Date / Time No Known Allergies Allergy Unverified 10/23/24 09:16 Visit Medications Acetaminophen (Acetaminophen 325 Mg Tablet) 650 mg PO Q6H PRN PRN Reason: PAIN SCALE 1-3 (mild Stop: 03/23/25 23:13 Acetaminophen (Acetaminophen 325 Mg Tablet) 650 mg PO Q6H PRN PRN Reason: Fever >100.4 Stop: 03/23/25 23:13 Hydrocodone Bitart/Acetaminophen (Hydrocodone/Apap 10/325 Tab) 1 tab PO Q4HR PRN PRN Reason: PAIN SCALE 7-10 (Severe Stop: 02/26/25 23:13 Fluconazole (Diflucan/Ns Ivpb) 400 mg in 200 mls @ 100 mls/hr IV X1 ONE Stop: 02/22/25 00:59 Magnesium Sulfate (Magnesium Sulfate Ivpb) 4 gm in 50 mls @ 12.5 mls/hr IV X1 ONE Stop: 02/22/25 03:01 Last Admin: 02/21/25 23:17 Dose: 12.5 mls/hr Acyclovir Sodium 585 mg/ (Sodium Chloride) 111.7 mls @ 100 mls/hr IV Q8HR [facility] Stop: 02/28/25 23:31 Lactated Ringer's (Lactated Ringers) 1,000 mls @ 999 mls/hr IV .Q1H1M ONE Stop: 02/22/25 00:39 Last Admin: 02/21/25 23:48 Dose: 999 mls/hr Acetaminophen (Ofirmev Inj) 1,000 mg in 100 mls @ 250 mls/hr IV Q6HR RADHA Stop: 02/22/25 12:23 Ondansetron HCl (Ondansetron Inj 2 Mg/Ml Inj 2 Ml) 4 mg IVP Q6H PRN; Protocol PRN Reason: NAUSEA OR VOMITING Stop: 03/23/25 23:13 Oxycodone/Acetaminophen (Oxycodone/Apap 5/325 Tablet) 1 tab PO Q6H PRN PRN Reason: PAIN SCALE 4-6 (Moderate Stop: 02/26/25 23:13 Pantoprazole Sodium (Pantoprazole Inj 40 Mg Vial) 40 mg IVP QDAY RADHA Stop: 03/24/25 08:59 Discontinued Medications Adenosine (Adenosine Inj 3 Mg/Ml Vial) 6 mg IVP X1 ONE Stop: 02/21/25 22:50 Last Admin: 02/21/25 23:18 Dose: 6 mg Adenosine (Adenosine Inj 3 Mg/Ml Vial) 12 mg IVP X1 ONE Stop: 02/21/25 22:50 Last Admin: 02/21/25 23:22 Dose: 12 mg Adenosine (Adenosine Inj 3 Mg/Ml Vial) 12 mg IVP X1 ONE Stop: 02/21/25 23:23 Last Admin: 02/21/25 23:29 Dose: 12 mg Acetaminophen (Ofirmev Inj) 1,000 mg in 100 mls @ 250 mls/hr IV X1 ONE Stop: 02/21/25 20:31 Last Infusion: 02/21/25 21:07 Dose: Infused Piperacillin/Tazobactam/Dextrose (Zosyn) 3.375 gm in 50 mls @ 100 mls/hr IV X1 ONE Stop: 02/21/25 20:37 Last Infusion: 02/21/25 21:07 Dose: Infused Lactated Ringer's (Lactated Ringers) 1,000 mls @ 999 mls/hr IV .Q1H1M ONE Stop: 02/21/25 21:16 Last Infusion: 02/21/25 21:26 Dose: Infused Lactated Ringer's (Lactated Ringers) 1,000 mls @ 999 mls/hr IV .Q1H1M ONE Stop: 02/21/25 21:37 Last Infusion: 02/21/25 22:29 Dose: Infused Vancomycin/Sodium Chloride (Vancomycin/Ns 1 Gm Ivpb) 200 mls @ 120 mls/hr IV X1 ONE Stop: 02/21/25 22:17 Last Infusion: 02/21/25 22:53 Dose: Infused Lactated Ringer's (Lactated Ringers) 1,000 mls @ 999 mls/hr IV .Q1H1M ONE Stop: 02/21/25 23:29 Last Admin: 02/21/25 22:45 Dose: 999 mls/hr Ibuprofen (Ibuprofen Susp 100 Mg/5 Ml Udc) 600 mg PO X1 ONE Stop: 02/21/25 20:33 Last Admin: 02/21/25 20:49 Dose: 600 mg Metoprolol Tartrate (Metoprolol Tartrate Inj 1 Mg/Ml Amp 5 Ml) 5 mg IVP X1 ONE Stop: 02/21/25 20:09 Last Admin: 02/21/25 20:26 Dose: 5 mg Sodium Bicarbonate (Sodium Bicarb Inj 8.4% Syr 50 Ml Syringe) 50 ml IV X1 ONE Stop: 02/21/25 23:50 Assessment & Plan Plan Mr Carmona is a 29M pmhx significant for 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 # Severe Sepsis 2/2 # Anion gap metabolic acidosis # Mild respiratory alkalosis # Lactic acidosis # Acute on chronic hypercapnic respiratory failure # VAP vs HCAP Meets SIRS criteria 4/4 with with tachycardic to 203 bpm, tachypneic at 62 breaths per minute, febrile with a temperature of 106?F, and WBC 17.2. Labs showed Lactic acid of 16 and improved to 2.3 with fluids, CO2 12.1. VBG showed mild respiratory alkylosis with pH 7.5, pCo2 30 likely secondary to sepsis. CXR showed severe bilateral PNA, he is chronically trached and was recently discharged from our hospital for sepsis. UA was negative for UTI. Has has multiple skin ulcers, likely a source of infection. However, initially he had refractory fever despite medication, raising suspicion for unknown fungal or CONSTRUCTION TR[employer]CH DIGGER infection (although unable to assess for symptoms), prompting the addition of antifungals and antiviral and ABX. However he showed drastic improvement after IVF, and thus CONSTRUCTION TRENCH DIGGER infection at this point unlikely. He also received Zosyn and Vancomycin while in ED. - Continue D5W/NS maintenance 70 cc/h - Continue Cefepime 2 mg q8h - Continue Vancomycin pharmacy dose - follow-up pancultures - continue Tylenol IV PRN for fever > 100.4 and for pain # SVT- resolved # Sinus tachycardia On presentation HR in 200s. EKG showed SVT. Likely reactive in settings of severe sepsis and volume depletion. Received -3 doses of adenosine (1 of 6mg and 2 of 12mg) converted to sinus rhythm. Initially remained tachycardic in 160-180, then improved after 4L IVFs boluses and with magnesium infection. - Continue monitoring for recurrent SVT or tachycardia - Maintain K > 4.0 and mag > 2.0 #JESUS, likely pre-renal Cr increase from baseline 0.6 to 1.2. GFR within normal limit. Jesus likely pre-renal in setting of dehydration and sepsis. -Continue IV hydration -Avoid nephrotoxins -Monitor renal panel -Renally dosed medications -Hold any TETE/ARB/diuretics #Electrolyte abnormalities #Hyperkalemia (resolved) #Hypercalcemia (improving) #Hypomagnesemia (resolved) On admission K 5.8, Ca 11.2 likely dehydrations. Mg 1.2 likely from malnutrition. 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 - Considered resuming seizures medication once hemodynamically stable - Continue wound care - Aspiration precautions - Oral care as needed - Acetaminophen 60 mg Q6H PRN - Continue home Keppra 1000 mg BID Hospital management: Lines: peripheral IV Diet: PEG DVT prophylaxis: Heparin Disposition: tele for sepsis CODE STATUS: DNR Patient seen and assessed under supervision of attending physician . Denise Cheney MD PGY-1, Internal Medicine Please note: this document was transcribed using voice recognition technology; minor inaccuracies may be present.
[2025-02-22] VITALS (53 sets, daily range): BP systolic 96–164; BP diastolic 42–91; PULSE 86–155; RESP 11–46; TEMP 35.3–38.8; O2SAT 94–100; BMI 17.4
[2025-02-22 00:23] LABS: Lactate (Lactic Acid) 2.3 mMol/L (0.4-2.0)
[2025-02-22 00:25] LABS: Base Excess, Venous 1 (-3-3); O2 Saturation, Venous 92 % (96-97); PCO2, Venous 30 mmHg (36-56); PO2, Venous 66 mmHg (15-58); pH, Venous 7.50 (7.33-7.66)
[2025-02-22] MEDS: Sodium Bicarb Inj 8.4% SYR 50 ML SYRINGE IV (00:34)
[2025-02-22] MEDS: ACETAMINOPHEN IVPB 1,000 MG/100 ML VIAL 250 MG IV (00:37)
[2025-02-22 01:02] LABS: Free T4 (Free Thyroxine) 1.63 ng/dL (0.89-1.76); Thyroid Stimulating Hormone 1.30 uIU/mL (0.55-4.78)
[2025-02-22] MEDS: FLUCONAZOLE/NS 400 MG IVPB 400 MG/200 ML BAG 100 MG IV (01:09)
[2025-02-22] MEDS: ACYCLOVIR INJ 500 MG in SODIUM CHLORIDE 0.9% 100 ML 100 MG IV (03:03)
[2025-02-22] MEDS: cefTRIAXone 2 GM in SODIUM CHLORIDE 0.9% (Popper) 50 ML IV (05:26)
[2025-02-22 05:38] LABS: Basophils # (Auto) 0.0 Thou/mm3 (0.0-0.2); Basophils % (Auto) 0 % (0-2.5); Eosinophils # (Auto) 0.0 Thou/mm3 (0.0-0.5); Eosinophils % (Auto) 0 % (0-10); Hematocrit 30.3 % (41.0-53.0); Hemoglobin 9.4 g/dL (13.5-16.0); Immature Granulocytes Auto 0.15 Thou/mm3 (0.00-0.00); Lymphocytes # (Auto) 2.1 Thou/mm3 (1.0-4.8); Lymphocytes % (Auto) 10 % (10-50); Mean Corpuscular HGB Conc 31.0 g/dl (31.0-37.0); Mean Corpuscular Hemoglobin 26.6 pg (25.0-35.0); Mean Corpuscular Volume 86 fL (80-100); Monocytes # (Auto) 1.8 Thou/mm3 (0.0-0.8); Monocytes % (Auto) 9 % (0-12); Neutrophils # (Auto) 16.4 Thou/mm3 (1.8-7.7); Neutrophils % (Auto) 80 % (37-80); Nucleated Red Blood Cell # 0.02 Thou/mm3 (0.00-0.00); Nucleated Red Blood Cell % 0 /100 WBC (0); Platelet Count 330 Thou/mm3 (140-440); RDW Standard Deviation 77.7 fL (35.1-43.9); Red Blood Count 3.53 Miln/mm3 (4.50-5.90); White Blood Count 20.4 Thou/mm3 (3.8-10.6)
[2025-02-22] MEDS: VANCOMYCIN/NS 1 GM IVPB 200 ML IV (05:54)
[2025-02-22 06:04] LABS: Alanine Aminotransferase 27 U/L (10-49); Albumin, Serum 3.4 gm/dL (3.5-5.0); Albumin/Globulin Ratio 0.9 (1.2-2.2); Alkaline Phosphatase 140 U/L (46-116); Anion Gap 16 (7-16); Aspartate Amino Transferase 33 U/L (0-34); BUN/Creatinine Ratio 20 Ratio (12-20); Bilirubin,Total 0.3 mg/dL (0.3-1.2); Blood Urea Nitrogen 18 mg/dL (9-23); Calcium 10.0 mg/dL (8.3-10.6); Calcium (Corrected) 10.5 mg/dL (8.5-10.1); Carbon Dioxide 21.9 mMol/L (20.0-31.0); Chloride 107 mMol/L (98-107); Creatinine (Component) 0.9 mg/dL (0.6-1.3); Estimated Creatinine Clearance 101.1 mL/min (>60); Globulin 3.9 gm/dL (2.3-3.5); Glucose 61 mg/dL (74-106); Magnesium 2.1 mg/dL (1.6-2.6); Osmolality,Calculated 288 (275-295); Phosphorous 3.9 mg/dL (2.4-5.1); Potassium 3.6 mMol/L (3.4-5.1); Sodium 145 mMol/L (136-145); Total Protein 7.3 gm/dL (5.7-8.2); eGFR > 60 See Note
--- NOTE | 2025-02-22 06:22 | PC.NURSE ---
pt is running cold at 95.4. called dr rosa and erika the application of a bear warmer
--- NOTE | 2025-02-22 07:58 | PC.NURSE ---
Report received from pm nurse, patient admitted to tele for sepsis, patient from [facility], high fever initially, however, patient temp dropped to 95.0/rectally and is on warming measures with blanket, temp 96.8 vial rectal temp, patient opens eyes spotaneously, however, not tracking. Patient contracted to all 4 extremities, skin is cool dry and pink, bolivar via gravity, call light within reach.
[2025-02-22] MEDS: DEXTROSE 5%-NS 1,000 ML 70 ML IV (08:14)
--- NOTE | 2025-02-22 08:15 | PC.NURSE ---
Spoke with Dr. Robbins informed him of fsbs 61, states he will place order for AMp of D50.
[2025-02-22] MEDS: DEXTROSE 50%-WATER INJ 50 ML SYRINGE IVP ×3 (08:22→14:11)
[2025-02-22] MEDS: CEFEPIME INJ 2 GM in SODIUM CHLORIDE 0.9% (Popper) 50 ML IV ×3 (09:14→21:17)
[2025-02-22] MEDS: GABAPENTIN 300 MG CAPSULE GT ×3 (09:16→21:18)
--- NOTE | 2025-02-22 09:28 | PC.RT ---
sputum sample collected and sent to lab.
[2025-02-22] MEDS: HEPARIN SOD INJ 5000 UNIT/ML VIAL SC ×2 (09:29→21:17)
--- NOTE | 2025-02-22 09:37 | ESPR_ITS ---
<Statement entered by Margarito Merino MD - 02/24/25 16:28> Patient was admitted overnight in view of severe sepsis. Vitals showed hypothermia for which patient was started on Valencia hugger. Noted to have tachycardia for which patient was started on metoprolol and IV fluids were started. Will continue vancomycin and cefepime for now. Pending blood and sputum cultures I have personally seen and examined the patient, agree with residents assessment and plan Patient plan of care was discussed with the attending physician, Dr. Escobar Merino, PGY2 Documentation for date of: 02/22/25 Subjective Subjective Interval history: Overnight events: Patient was admitted overnight. Patient was seen and examined at bedside. AM vitals and labs reviewed. Patient was noted to be on Valencia hugger this morning. No acute distress at this time. Continue vancomycin and cefepime. Resumed Keppra, gabapentin, and baclofen. Resume metoprolol at 50 mg twice daily instead of 500 mg twice daily given labile blood pressures. Pending blood and sputum cultures. Ordered RSV, cocci, COVID-19 PCR, pending. PICC line insertion ordered. Wound care referral ordered. Review of systems otherwise negative except for what is mentioned above. Exam Vital Signs Temp Pulse Resp BP Pulse Ox O2 Del Method O2 Flow Rate 97.7 F 107 H 28 H 98/50 L 96 Blow-by 6 02/22/25 08:45 02/22/25 08:45 02/22/25 08:45 02/22/25 08:45 02/22/25 08:45 02/22/25 08:45 02/22/25 08:45 Narrative Exam Physical Exam: General: Alert, no acute distress. Nonverbal. Skin: Warm, dry, intact. Head: Normocephalic, atraumatic. Eye: Normal conjunctiva, PERRL. Throat: Tracheostomy midline, no bleeding noted. Clear sputum noted in trach tube. Cardiovascular: Regular rate and rhythm, no murmur, +S1/S2. Respiratory: Lungs are clear to auscultation, respirations unlabored, no crackles, no wheezing. Gastrointestinal: Soft, nontender, non-distended. No guarding or rebound tenderness. PEG tube in place. Extremities: No edema, no cyanosis, no clubbing. Extremities postured in flexion. Bilateral popliteal fossa leg 4x4 cm dressings. Neuro: Quadrapleigic, opens eyes spontaneously. Objective Labs 02/25/25 04:07 02/25/25 04:07 Labs: Laboratory Results - last 24 hr 02/21/25 02/21/25 02/21/25 00:12 20:20 20:25 WBC 17.2 H D RBC 4.12 L Hgb 11.1 L D Hct 35.8 L MCV 87 MCH 26.9 MCHC 31.0 RDW Std Deviation 78.9 H Plt Count 485 H D Neut % (Auto) 72 Lymph % (Auto) 20 Pike % (Auto) 6 Eos % (Auto) 1 Baso % (Auto) 0 Neut # (Auto) 12.4 H Lymph # (Auto) 3.4 Pike # (Auto) 1.0 H Eos # (Auto) 0.2 Baso # (Auto) 0.1 Immature Gran # (Auto) 0.26 H Absolute Nucleated RBC 0.00 Immature Gran % 2 H Nucleated RBC % 0 PT 14.6 H INR 1.4 H APTT 25.4 VBG pH VBG pCO2 VBG pO2 VBG O2 Sat (Juanita) VBG Base Excess Sodium 143 Potassium 5.8 H D Chloride 104 Carbon Dioxide 12.1 L* Anion Gap 27 H BUN 16 Creatinine 1.2 D Estim Creat Clear Calc 75.9 eGFR > 60 BUN/Creatinine Ratio 13 Glucose 87 Calculated Osmolality 285 Lactic Acid Cancelled 16.0 H* Calcium 11.2 H Corrected Calcium 11.2 H Phosphorus 4.3 Magnesium 1.2 L Total Bilirubin < 0.2 L AST 37 H ALT 36 Alkaline Phosphatase 186 H D Lactate Dehydrogenase 334 H Troponin I 0.026 B-Natriuretic Peptide 25 Total Protein 9.9 H Albumin 4.4 D Globulin 5.5 H Albumin/Globulin Ratio 0.8 L Lipase 46 Procalcitonin 0.18 TSH 1.30 Free T4 1.63 Ur Collection Type Clean Catch Urine Color Lt-Yellow Urine Clarity Clear Urine pH 7.0 Ur Specific [place] 1.013 Urine Protein Negative Urine Glucose (UA) Negative Urine Ketones Negative Urine Blood Negative Urine Nitrite Negative Urine Bilirubin Negative Urine Urobilinogen (Auto) Negative Ur Leukocyte Esterase Negative Urine RBC 3 Urine WBC 1 Ur Squamous Epith Cells 2 Urine Bacteria None Ur Culture Indicated? Not Indicated 02/21/25 02/21/25 02/22/25 23:11 23:59 05:25 WBC 20.4 H RBC 3.53 L Hgb 9.4 L Hct 30.3 L MCV 86 MCH 26.6 MCHC 31.0 RDW Std Deviation 77.7 H Plt Count 330 D Neut % (Auto) 80 Lymph % (Auto) 10 Pike % (Auto) 9 Eos % (Auto) 0 Baso % (Auto) 0 Neut # (Auto) 16.4 H Lymph # (Auto) 2.1 Pike # (Auto) 1.8 H Eos # (Auto) 0.0 Baso # (Auto) 0.0 Immature Gran # (Auto) 0.15 H Absolute Nucleated RBC 0.02 H Immature Gran % 1 H Nucleated RBC % 0 PT INR APTT VBG pH 7.50 VBG pCO2 30 L VBG pO2 66 H VBG O2 Sat (Juanita) 92 L VBG Base Excess 1 Sodium 145 Potassium 3.6 D Chloride 107 Carbon Dioxide 21.9 Anion Gap 16 BUN 18 Creatinine 0.9 Estim Creat Clear Calc 101.1 eGFR > 60 BUN/Creatinine Ratio 20 Glucose 61 L Calculated Osmolality 288 Lactic Acid 2.3 H Calcium 10.0 Corrected Calcium 10.5 H Phosphorus 3.9 Magnesium 2.1 Total Bilirubin 0.3 AST 33 ALT 27 Alkaline Phosphatase 140 H D Lactate Dehydrogenase Troponin I B-Natriuretic Peptide Total Protein 7.3 Albumin 3.4 L D Globulin 3.9 H Albumin/Globulin Ratio 0.9 L Lipase Procalcitonin TSH Free T4 Ur Collection Type Urine Color Urine Clarity Urine pH Ur Specific [place] Urine Protein Urine Glucose (UA) Urine Ketones Urine Blood Urine Nitrite Urine Bilirubin Urine Urobilinogen (Auto) Ur Leukocyte Esterase Urine RBC Urine WBC Ur Squamous Epith Cells Urine Bacteria Ur Culture Indicated? ABG Interpretation ABG results: 02/21/25 23:11 VBG pH 7.50 VBG pCO2 30 L VBG pO2 66 H VBG Base Excess 1 Quality Measures Quality Measures VTE prophylaxis Assessment & Plan Assessment Current Active Medications: Generic Name Dose Route Start Last Admin Trade Name Freq PRN Reason Stop Dose Admin Hydrocodone Bitart/Acetaminophen 1 tab 02/22/25 07:08 Hydrocodone/Apap 10/325 Tab GT 02/26/25 23:13 Q4HR PRN PAIN SCALE 7-10 (Severe Albuterol/Ipratropium 3 ml 02/22/25 13:00 Albuterol/Ipratropium (Duoneb) Rt [place] 3 Ml Nebu INH 03/24/25 12:59 Q6HRRT RADHA Baclofen 20 mg 02/22/25 07:41 Baclofen 10 Mg Tablet GT 03/24/25 07:40 Q6HR PRN Spasms Gabapentin 300 mg 02/22/25 07:45 02/22/25 09:16 Gabapentin 300 Mg Capsule GT 03/24/25 07:44 300 mg TID RADHA Administration Heparin Sodium (Porcine) 5,000 unit 02/22/25 09:00 02/22/25 09:29 Heparin Sod Inj 5000 Unit/Ml Vial SC 03/08/25 08:59 5,000 unit BID RADHA Administration Vancomycin/Sodium Chloride 750 mg in 150 mls @ 120 mls/hr 02/22/25 22:00 Vancomycin/Ns 750 Mg Ivpb IV 03/01/25 21:59 Q12H RADHA Cefepime HCl 2 gm/ Sodium 50 mls @ 100 mls/hr 02/22/25 07:15 02/22/25 09:14 Chloride IV 03/01/25 07:14 100 mls/hr Q8HR RADHA Administration Acetaminophen 1,000 mg in 100 mls @ 250 mls/hr 02/22/25 07:07 Ofirmev Inj IV Q6HR PRN Fever >100.4 or Pain Protocol Dextrose/Sodium Chloride 1,000 mls @ 70 mls/hr 02/22/25 07:30 02/22/25 08:14 D5-Ns IV 02/22/25 21:47 70 mls/hr .[id number] RADHA Administration Levetiracetam 1,000 mg 02/22/25 09:00 02/22/25 09:16 Levetiracetam 250 Mg Tablet GT 03/24/25 08:59 1,000 mg BID RADHA Administration Metoprolol Tartrate 100 mg 02/22/25 09:00 Metoprolol Tartrate 25 Mg Tablet GT 03/24/25 08:59 BID RADHA Ondansetron HCl 4 mg 02/21/25 23:14 Ondansetron Inj 2 Mg/Ml Inj 2 Ml IVP 03/23/25 23:13 Q6H PRN NAUSEA OR VOMITING Protocol Oxycodone/Acetaminophen 1 tab 02/22/25 07:08 Oxycodone/Apap 5/325 Tablet GT 02/26/25 23:13 Q6H PRN PAIN SCALE 4-6 (Moderate Pantoprazole Sodium 40 mg 02/22/25 09:00 02/22/25 09:15 Pantoprazole Inj 40 Mg Vial IVP 03/24/25 08:59 40 mg QDAY [facility] Administration Pharmacy Consult 1 each 02/22/25 09:00 Vancomycin Pharmacy To Dose 1 Each Each IV 03/24/25 08:59 QDAY PRN PROTOCOL Sodium Chloride 4 ml 02/22/25 07:30 Sodium Cl Rt [place] 3% 4 Ml Nebu (Non-Formulary) INH 03/24/25 07:29 Q8HRRT [facility] Plan Mr. 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 Patient was admitted for sepsis workup. #Sepsis 2/2 #Ventilator associated pneumonia vs #Healthcare facility acquired pneumonia #HAGMA, resolved, 2/2 #Lactic acidosis, resolving Patient presented from subacute with temperature of 106 ?F, heart rate of 203, respiratory rate of 62, and WBC of 17.2. Patient was noted to have anion gap of 27 and bicarb of 12.1, likely secondary to lactic acidosis given lactic acid was 16.0 in ED, which decreased to 2.3 after 4 L of LR given in ED. VBG did show mild respiratory alkalosis with pH of 7.5 and pCO2 of 30. The patient has multiple sources of possible infection, given that checks x-ray showed severe bilateral pneumonia, and the patient was recently discharged from [facility] for sepsis with cultures positive from sputum and skin ulcers on popliteal fossa. Urinalysis was negative for suspicion of infection. Patient was recently discharged from [facility] with clindamycin and Zosyn for pneumonia secondary to trach placement and chronic colonization. Will likely need to broaden antibiotics as infection did not seem to be controlled with those 2 antibiotics upon discharge. SIRS score 4 Plan: Continue D5W/NS maintenance at 70 cc/h Cefepime 2 mg every 8 hours (02/22--) Vancomycin, pharmacy to dose (02/22--) Blood cultures drawn on 02/21, pending Sputum culture collected 02/22, pending Resume metoprolol tartrate at lower dose of 50 mg twice daily instead of home dose on 100 mg twice daily given soft BP PICC line insertion ordered, pending Ordered RSV, cocci, COVID-19 PCR to investigate further sources of infection, pending Will wean off Valencia Hugger as tolerated #JESUS, likely pre-renal Patient was noted to have a creatinine of 1.2 in the ED. Baseline is noted to be around 0.6. Given that the patient had significant improvement of lactic acidosis in ED, this is likely prerenal secondary to poor fluid intake/administration. Plan: Continue D5W/NS maintenance at 70 cc/h Continue to monitor renal panel Avoid nephrotoxins Renally dose medications Hold TETE/ARB/diuretics #SVT, resolved #Sinus tachycardia Patient was noted to have heart rate in the 200s in ED. EKG obtained in ED showed SVT. Patient received 3 doses of adenosine in ED and converted to sinus tachycardia, which later improved with 4 L of IV LR and magnesium. Plan: Continue to monitor via telemetry box Keep potassium above 4 and magnesium above 2 Metoprolol to tartrate 50 mg twice daily #Electrolyte abnormalities #Hyperkalemia, resolved #Hypercalcemia, resolving #Hypomagnesemia, resolved Patient noted to have a potassium 5.8, calcium 11.2, and magnesium 1.2 in ED. Likely secondary to dehydration and malnutrition as patient was noted to significantly improve after being given 4 L LR in ED and appropriately replenished. 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 Patient is aware and does respond to commands. Due to this, the patient is status post tracheostomy and status post PEG tube. Patient is reliant on PEG tube feeds. 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 Plan: Wound care referral ordered Registered dietitian referral ordered Oral care as needed Keppra 1000 mg twice daily Gabapentin 100 mg 3 times daily Baclofen 20 mg every 6 hours as needed DVT Prophylaxis: Heparin GI Prophylaxis: Protonix Bowel: N/A Diet: NPO; pending RD recommendations for PEG tube feeds [place]: Yes Lines: Peripheral IV, tach Antibiotics: Cefepime & Vancomycin (02/22--) Code Status: FULL Reason for Hospitalization: Sepsis Other Barriers to Discharge: Blood culture, sputum culture Patient plan of care was discussed with the senior resident Dr. Merino and attending physician Dr. Escobar Perea, PGY1 Attending Provider Attestation/Addendum Face to face evaluation was performed by me. I have personally seen and examined the patient. I discussed the assessment and plan with the entire medicine team. I reviewed available medical records, imaging studies, laboratory results. I agree with the above subjective data, objective findings, assessment and plan except as corrected by me or noted below Severe sepsis, with septic shock present on admission suspect bacterial pneumonia, Fever due to above Bedbound Chronic tracheostomy SVT Lactic acidosis Continue broad-spectrum antibiotics, await for cultures. Status post IV fluids blood pressure and lactic acidosis improved. He required adenosine doses for SVT Now tachycardic treat discomfort and fever if remains persistently tachycardic and blood pressure allows can resume his home metoprolol. More than > 30 minutes spent on the encounter
--- NOTE | 2025-02-22 10:51 | PC.NURSE ---
spoke to [facility] , they will come and check blow by tube for possible suctions, breathing treatment ordered this morning was not needed
--- NOTE | 2025-02-22 10:53 | PC.NURSE ---
warmer removed from patient @ 0900 due to patient temp being 97.7 rectally,
--- NOTE | 2025-02-22 11:20 | PC.NURSE ---
Dr. López at bedside.
--- NOTE | 2025-02-22 11:29 | PC.NURSE ---
MD jj called and notified of low BS , states he will consult with attending and place any new orders
[2025-02-22] MEDS: SODIUM CL RT SOL 3% 4 ML NEBU (NON-FORMULARY) INH ×2 (12:38→18:37)
[2025-02-22] MEDS: ALBUTEROL/IPRATROPIUM (Duoneb) RT SOL 3 ML NEBU INH ×2 (12:38→18:30)
[2025-02-22] MEDS: METOPROLOL TARTRATE 25 MG TABLET 50 MG GT ×2 (12:53→21:17)
--- NOTE | 2025-02-22 12:57 | PC.NURSE ---
call from Itzel Canales and peggy to give metropolol if bP was over 100 systolic, currently 114/81 when given
--- NOTE | 2025-02-22 15:34 | PC.DIETICIAN ---
Dietitian recommendation: When indicated: Jevity 1.5 at 30 ml/hr via PEG tube by pump. Advance 10 ml every 8 hrs to goal rate of 68 ml/hr x 24 hrs. If no IV fluids, water flushes of 50 ml/hr (or per MD). Thank you
--- NOTE | 2025-02-22 16:00 | PC.NURSE ---
unable to reach poc father hina, phone out of service. No answer from mother listed on person to notify
[2025-02-22] MEDS: DEXTROSE 50%-WATER INJ 50 ML SYRINGE 25 ML IVP ×2 (16:27→17:34)
[2025-02-22] MEDS: DEXTROSE 10%-WATER 1000 ML 1,000 ML 100 ML IV (19:31)
[2025-02-22] MEDS: VANCOMYCIN/NS 750 MG IVPB 750 MG/150 ML BAG 120 MG IV (22:17)
[2025-02-23] VITALS (14 sets, daily range): BP systolic 86–135; BP diastolic 62–101; PULSE 82–141; RESP 18–39; TEMP 36.2–38.2; O2SAT 99–100; BMI 17.4
[2025-02-23] MEDS: ALBUTEROL/IPRATROPIUM (Duoneb) RT SOL 3 ML NEBU INH ×4 (01:03→19:30)
[2025-02-23] MEDS: SODIUM CL RT SOL 3% 4 ML NEBU (NON-FORMULARY) INH ×4 (01:03→19:30)
[2025-02-23 02:14] LABS: Respiratory Syncytial Virus Ag Negative (Negative)
[2025-02-23] MEDS: ACETAMINOPHEN IVPB 1,000 MG/100 ML VIAL 250 MG IV ×2 (02:43→09:22)
[2025-02-23 03:00] LABS: Reflex Lactate? Y
[2025-02-23] MEDS: BACLOFEN 10 MG TABLET 20 MG GT (03:12)
[2025-02-23 03:24] LABS: Lactic Acid, 3 HR 2.2 mMol/L (0.4-2.0)
[2025-02-23 03:36] LABS: Basophils # (Auto) 0.1 Thou/mm3 (0.0-0.2); Basophils % (Auto) 1 % (0-2.5); Eosinophils # (Auto) 0.1 Thou/mm3 (0.0-0.5); Eosinophils % (Auto) 1 % (0-10); Hematocrit 31.7 % (41.0-53.0); Hemoglobin 9.6 g/dL (13.5-16.0); Immature Granulocytes Auto 0.07 Thou/mm3 (0.00-0.00); Lymphocytes # (Auto) 1.6 Thou/mm3 (1.0-4.8); Lymphocytes % (Auto) 11 % (10-50); Mean Corpuscular HGB Conc 30.3 g/dl (31.0-37.0); Mean Corpuscular Hemoglobin 26.2 pg (25.0-35.0); Mean Corpuscular Volume 86 fL (80-100); Monocytes # (Auto) 1.4 Thou/mm3 (0.0-0.8); Monocytes % (Auto) 9 % (0-12); Neutrophils # (Auto) 11.9 Thou/mm3 (1.8-7.7); Neutrophils % (Auto) 78 % (37-80); Nucleated Red Blood Cell # 0.00 Thou/mm3 (0.00-0.00); Nucleated Red Blood Cell % 0 /100 WBC (0); Platelet Count 362 Thou/mm3 (140-440); RDW Standard Deviation 80.8 fL (35.1-43.9); Red Blood Count 3.67 Miln/mm3 (4.50-5.90); White Blood Count 15.1 Thou/mm3 (3.8-10.6)
[2025-02-23 03:53] LABS: Alanine Aminotransferase 90 U/L (10-49); Albumin, Serum 3.8 gm/dL (3.5-5.0); Albumin/Globulin Ratio 0.8 (1.2-2.2); Alkaline Phosphatase 138 U/L (46-116); Anion Gap 14 (7-16); Aspartate Amino Transferase 87 U/L (0-34); BUN/Creatinine Ratio 16 Ratio (12-20); Bilirubin,Total 0.3 mg/dL (0.3-1.2); Blood Urea Nitrogen 14 mg/dL (9-23); Calcium 9.8 mg/dL (8.3-10.6); Calcium (Corrected) 10.0 mg/dL (8.5-10.1); Carbon Dioxide 22.1 mMol/L (20.0-31.0); Chloride 104 mMol/L (98-107); Creatinine (Component) 0.9 mg/dL (0.6-1.3); Estimated Creatinine Clearance 101.1 mL/min (>60); Globulin 4.6 gm/dL (2.3-3.5); Glucose 85 mg/dL (74-106); Magnesium 1.6 mg/dL (1.6-2.6); Osmolality,Calculated 278 (275-295); Phosphorous 3.2 mg/dL (2.4-5.1); Potassium 4.2 mMol/L (3.4-5.1); Sodium 140 mMol/L (136-145); Total Protein 8.4 gm/dL (5.7-8.2); eGFR > 60 See Note
[2025-02-23] MEDS: CEFEPIME INJ 2 GM in SODIUM CHLORIDE 0.9% (Popper) 50 ML IV ×3 (05:25→21:11)
[2025-02-23] MEDS: GABAPENTIN 300 MG CAPSULE GT ×3 (05:26→21:52)
[2025-02-23] MEDS: DEXTROSE 10%-WATER 1000 ML 1,000 ML 150 ML IV (07:12)
[2025-02-23] MEDS: RINGERS LACTATED 1000 ML 1,000 ML 125 ML IV (08:43)
[2025-02-23] MEDS: HEPARIN SOD INJ 5000 UNIT/ML VIAL SC ×2 (08:44→20:24)
[2025-02-23] MEDS: METOPROLOL TARTRATE 25 MG TABLET 100 MG GT (08:44)
[2025-02-23] MEDS: Magnesium Sulfate 4 GM Ivpb 4 GM/50 ML BAG IV (08:44)
--- NOTE | 2025-02-23 09:11 | PD.RESEVENT ---
Documentation for date of: 02/23/25 Event Note Event Note: Rapid Response Room:?261 Time:?910 Reason for Call:?Fever, elevated HR Patient did not seem to be in any acute distress. Extremities in contracture, unchanged from earlier this morning. Rectal temperature 100.8 ?F, blood pressure 129/101, heart rate 140, respiratory rate 39, O2 saturation 99 on blow-by 6 L. Sepsis alert not called as patient had sepsis alert previously, which improved his condition. New orders:? - Acetaminophen IV 1g Patient was discussed with the attending, Dr. Escobar Perea, PGY-1 Face to face evaluation was performed by me. I have personally seen and examined the patient. I discussed the assessment and plan with the entire medicine team. I reviewed available medical records, imaging studies, laboratory results. I agree with the above subjective data, objective findings, assessment and plan except as corrected by me or noted below Tachycardia, sinus, with fever sepsis, Continue antibiotics Resume home metoprolol increased dosage to 100 mg twice daily as his home dose
--- NOTE | 2025-02-23 10:00 | PD.RESPRO ---
Documentation for date of: 02/23/25 Subjective Subjective Interval history: Overnight events: No acute events overnight. Blood glucose was found to be 70 overnight, so D10w was increased to 150 cc/hr. Patient was seen and examined at bedside. AM vitals and labs reviewed. No acute complaints at this time. Eyes do appear to be injected compared to yesterday. Removed dressing on left popliteal fossa, noted light yellow-colored drainage from wound. [place] hugger removed. WBC 15.1, lactic acid 2.2, magnesium 1.6, AST 87, ALT 90. Flu, RSV, COVID-negative. Pending cocci. Blood cultures negative after 24 hours. Pending sputum culture. Continue vancomycin and cefepime. Increase metoprolol 50 mg twice daily to 100 mg twice daily. Tube feed changed to Jevity per RD recommendations. Ordered chest PT twice daily. Resumed home morphine 2 mg for 30 minutes before wound care. Pending PICC line placement. Repeat lactate and LFTs 16:00. Review of systems otherwise negative except for what is mentioned above. Exam Vital Signs Temp Pulse Resp BP Pulse Ox O2 Del Method O2 Flow Rate 100.8 F H 141 H 39 H 129/101 H 99 Blow-by 6 02/23/25 08:00 02/23/25 08:44 02/23/25 08:00 02/23/25 08:44 02/23/25 08:00 02/23/25 08:00 02/23/25 06:45 FiO2 28 02/23/25 06:45 Narrative Exam Physical Exam: General: Alert, no acute distress. Nonverbal. Skin: Warm, dry, intact. Head: Normocephalic, atraumatic. Eye: Normal conjunctiva, PERRL. Throat: Tracheostomy midline, no bleeding noted. Clear sputum noted in trach tube. Cardiovascular: Regular rate and rhythm, no murmur, +S1/S2. Respiratory: Respirations unlabored, diffuse crackles bilaterally Gastrointestinal: Soft, nontender, non-distended. No guarding or rebound tenderness. PEG tube in place. Extremities: No edema, no cyanosis, no clubbing. Extremities postured in flexion. Bilateral popliteal fossa leg 4x4 cm dressings, yellow drainage noted from left wound. Neuro: Quadrapleigic, opens eyes spontaneously. Objective Labs 02/25/25 04:07 02/25/25 04:07 Labs: Laboratory Results - last 24 hr 02/23/25 02/23/25 01:00 03:17 WBC 15.1 H D RBC 3.67 L Hgb 9.6 L Hct 31.7 L MCV 86 MCH 26.2 MCHC 30.3 L RDW Std Deviation 80.8 H Plt Count 362 D Neut % (Auto) 78 Lymph % (Auto) 11 Nash % (Auto) 9 Eos % (Auto) 1 Baso % (Auto) 1 Neut # (Auto) 11.9 H Lymph # (Auto) 1.6 Nash # (Auto) 1.4 H Eos # (Auto) 0.1 Baso # (Auto) 0.1 Immature Gran # (Auto) 0.07 H Absolute Nucleated RBC 0.00 Immature Gran % 1 H Nucleated RBC % 0 Sodium 140 Potassium 4.2 D Chloride 104 Carbon Dioxide 22.1 Anion Gap 14 BUN 14 Creatinine 0.9 Estim Creat Clear Calc 101.1 eGFR > 60 BUN/Creatinine Ratio 16 Glucose 85 Calculated Osmolality 278 Lactic Acid 2.2 H Calcium 9.8 Corrected Calcium 10.0 Phosphorus 3.2 Magnesium 1.6 Total Bilirubin 0.3 AST 87 H ALT 90 H Alkaline Phosphatase 138 H Total Protein 8.4 H Albumin 3.8 Globulin 4.6 H Albumin/Globulin Ratio 0.8 L RSV Rapid Negative ABG Interpretation ABG results: 02/21/25 23:11 VBG pH 7.50 VBG pCO2 30 L VBG pO2 66 H VBG Base Excess 1 Quality Measures Quality Measures none Assessment & Plan Assessment Current Active Medications: Generic Name Dose Route Start Last Admin Trade Name Freq PRN Reason Stop Dose Admin Hydrocodone Bitart/Acetaminophen 1 tab 02/22/25 07:08 Hydrocodone/Apap 10/325 Tab GT 02/26/25 23:13 Q4HR PRN PAIN SCALE 7-10 (Severe Albuterol/Ipratropium 3 ml 02/22/25 13:00 02/23/25 06:41 Albuterol/Ipratropium (Duoneb) Rt [place] 3 Ml Nebu INH 03/24/25 12:59 3 ml Q6HRRT RADHA Administration Baclofen 20 mg 02/22/25 07:41 02/23/25 03:12 Baclofen 10 Mg Tablet GT 03/24/25 07:40 20 mg Q6HR PRN Administration Spasms Gabapentin 300 mg 02/22/25 07:45 02/23/25 05:26 Gabapentin 300 Mg Capsule GT 03/24/25 07:44 300 mg TID RADHA Administration Heparin Sodium (Porcine) 5,000 unit 02/22/25 09:00 02/23/25 08:44 Heparin Sod Inj 5000 Unit/Ml Vial SC 03/08/25 08:59 5,000 unit BID RADHA Administration Vancomycin/Sodium Chloride 750 mg in 150 mls @ 120 mls/hr 02/22/25 22:00 02/22/25 22:17 Vancomycin/Ns 750 Mg Ivpb IV 03/01/25 21:59 120 mls/hr Q12H RADHA Administration Cefepime HCl 2 gm/ Sodium 50 mls @ 100 mls/hr 02/22/25 07:15 02/23/25 05:25 Chloride IV 03/01/25 07:14 100 mls/hr Q8HR RADHA Administration Acetaminophen 1,000 mg in 100 mls @ 250 mls/hr 02/22/25 07:07 02/23/25 09:22 Ofirmev Inj IV 250 mls/hr Q6HR PRN Administration Fever >100.4 or Pain Protocol Dextrose 1,000 mls @ 150 mls/hr 02/23/25 05:31 02/23/25 07:12 D10w 1000 Ml IV 03/25/25 05:29 150 mls/hr .Q6H40M RADHA Administration Magnesium Sulfate 4 gm in 50 mls @ 12.5 mls/hr 02/23/25 07:16 02/23/25 08:44 Magnesium Sulfate Ivpb IV 02/23/25 11:15 12.5 mls/hr X1 ONE Administration Lactated Ringer's 1,000 mls @ 125 mls/hr 02/23/25 07:18 02/23/25 08:43 Lactated Ringers IV 02/23/25 15:17 125 mls/hr .Q8H ONE Administration Levetiracetam 1,000 mg 02/22/25 09:00 02/23/25 08:45 Levetiracetam 250 Mg Tablet GT 03/24/25 08:59 1,000 mg BID RADHA Administration Metoprolol Tartrate 100 mg 02/23/25 09:00 02/23/25 08:44 Metoprolol Tartrate 25 Mg Tablet GT 03/25/25 08:59 100 mg BID RADHA Administration Midodrine 5 mg 02/22/25 10:57 Midodrine 5 Mg Tablet GT 03/24/25 13:59 TID PRN Systolic BP <90 Ondansetron HCl 4 mg 02/21/25 23:14 Ondansetron Inj 2 Mg/Ml Inj 2 Ml IVP 03/23/25 23:13 Q6H PRN NAUSEA OR VOMITING Protocol Oxycodone/Acetaminophen 1 tab 02/22/25 07:08 Oxycodone/Apap 5/325 Tablet GT 02/26/25 23:13 Q6H PRN PAIN SCALE 4-6 (Moderate Pantoprazole Sodium 40 mg 02/22/25 09:00 02/23/25 08:46 Pantoprazole Inj 40 Mg Vial IVP 03/24/25 08:59 40 mg QDAY RADHA Administration Pharmacy Consult 1 each 02/22/25 09:00 Vancomycin Pharmacy To Dose 1 Each Each IV 03/24/25 08:59 QDAY PRN PROTOCOL Sodium Chloride 4 ml 02/22/25 13:00 02/23/25 06:41 Sodium Cl Rt [place] 3% 4 Ml Nebu (Non-Formulary) INH 03/24/25 12:59 4 ml Q6HRRT RADHA Administration Plan Mr. 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 Patient was admitted for sepsis workup. #Sepsis 2/2 #Ventilator associated pneumonia vs #Healthcare facility acquired pneumonia #HAGMA, resolved, 2/2 #Lactic acidosis, resolving Patient presented from subacute with temperature of 106 ?F, heart rate of 203, respiratory rate of 62, and WBC of 17.2. Patient was noted to have anion gap of 27 and bicarb of 12.1, likely secondary to lactic acidosis given lactic acid was 16.0 in ED, which decreased to 2.3 after 4 L of LR given in ED. VBG did show mild respiratory alkalosis with pH of 7.5 and pCO2 of 30. The patient has multiple sources of possible infection, given that checks x-ray showed severe bilateral pneumonia, and the patient was recently discharged from [facility] for sepsis with cultures positive from sputum and skin ulcers on popliteal fossa. Urinalysis was negative for suspicion of infection. Patient was recently discharged from [facility] with clindamycin and Zosyn for pneumonia secondary to trach placement and chronic colonization. Will likely need to broaden antibiotics as infection did not seem to be controlled with those 2 antibiotics upon discharge. SIRS score 4 Diagnostics: Ordered RSV, COVID-19 PCR to investigate further sources of infection, resulted negative Blood cultures drawn on 02/21, negative after 24 hours Plan: Cefepime 2 mg every 8 hours (02/22--) Vancomycin, pharmacy to dose (02/22--) Sputum culture collected 02/22, pending PICC line insertion ordered, pending Ordered cocci, pending Chest physiotherapy twice daily ordered Repeat lactate 16:00 02/23 #Transaminitis Patient was noted to have AST of 87 and ALT of 90 on 02/23, which is increased from his baseline. Plan: Repeat LFT 16:00 02/23 Continue to monitor #SVT, resolved #Sinus tachycardia Patient was noted to have heart rate in the 200s in ED. EKG obtained in ED showed SVT. Patient received 3 doses of adenosine in ED and converted to sinus tachycardia, which later improved with 4 L of IV LR and magnesium. Plan: Continue to monitor via telemetry box Keep potassium above 4 and magnesium above 2 Metoprolol tartrate 100 mg twice daily #JESUS, likely pre-renal, resolving Patient was noted to have a creatinine of 1.2 in the ED. Baseline is noted to be around 0.6. Given that the patient had significant improvement of lactic acidosis in ED, this is likely prerenal secondary to poor fluid intake/administration. Plan: Continue to monitor renal panel Avoid nephrotoxins Renally dose medications Hold TETE/ARB/diuretics #Electrolyte abnormalities #Hyperkalemia, resolved #Hypercalcemia, resolving #Hypomagnesemia, resolved Patient noted to have a potassium 5.8, calcium 11.2, and magnesium 1.2 in ED. Likely secondary to dehydration and malnutrition as patient was noted to significantly improve after being given 4 L LR in ED and appropriately replenished. 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 Patient is aware and does respond to commands. Due to this, the patient is status post tracheostomy and status post PEG tube. Patient is reliant on PEG tube feeds. 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 Plan: Wound care referral ordered Registered dietitian referral ordered, Jevity 1.5 goal rate 68 mL/hr Oral care as needed Keppra 1000 mg twice daily Gabapentin 100 mg 3 times daily Baclofen 20 mg every 6 hours as needed DVT Prophylaxis: Heparin GI Prophylaxis: Protonix Bowel: N/A Diet: Jevity 1.5 Langston: Yes Lines: Peripheral IV, trach, PEG Antibiotics: Cefepime & Vancomycin (02/22--) Code Status: FULL Reason for Hospitalization: Sepsis Other Barriers to Discharge: Sputum culture Patient plan of care was discussed with attending physician Dr. Escobar Perea, PGY1 Attending Provider Attestation/Addendum Face to face evaluation was performed by me. I have personally seen and examined the patient. I discussed the assessment and plan with the entire medicine team. I reviewed available medical records, imaging studies, laboratory results. I agree with the above subjective data, objective findings, assessment and plan except as corrected by me or noted below Ventilator associated pneumonia, gram-negative bacilli Sepsis due to above present admission with septic shock Chronic trach G-tube on chronic tube feeds Continue broad-spectrum antibiotic With cefepime, vancomycin for MRSA coverage, discontinue once hemodynamically improved and no clinical evidence of MRSA infection More than > 30 minutes spent on the encounter
[2025-02-23 10:07] LABS: Vancomycin,Trough 16.5 mcg/mL (5.0-10.0)
[2025-02-23 10:28] LABS: Lactate (Lactic Acid) 2.3 mMol/L (0.4-2.0)
[2025-02-23] MEDS: VANCOMYCIN/NS 750 MG IVPB 750 MG/150 ML BAG 120 MG IV ×2 (11:14→21:52)
--- NOTE | 2025-02-23 11:26 | PC.SS ---
This is 29-year-old, single male who presented to the ED due to suffering from fever. Assessment was completed with patient's mother, Sara via telephone call. SW introduced self, role and reason for call. Per Sara, patient resides at [facility]. Patient is bedbound, breathing ventilator dependent. In case of an emergency, Sara is his medical decision or father, Nasir ([phone]). When medically clear, patient will return to [facility]. Discharge plan: return to [facility]. Next of kin: Sara Carmona ([phone]) or Nasir ([phone]).
[2025-02-23] MEDS: DEXTROSE 50%-WATER INJ 50 ML SYRINGE IVP (13:15)
[2025-02-23] MEDS: DEXTROSE 5%-LACTATED RINGERS 1,000 ML 125 ML IV (13:16)
[2025-02-23 13:24] LABS: Reflex Lactate? Y
[2025-02-23 14:00] LABS: Cocci Serology, IgM Negative (Negative)
[2025-02-23 14:17] LABS: Lactic Acid, 3 HR 1.1 mMol/L (0.4-2.0)
[2025-02-23 17:38] LABS: Alanine Aminotransferase 92 U/L (10-49); Albumin, Serum 3.5 gm/dL (3.5-5.0); Alkaline Phosphatase 127 U/L (46-116); Aspartate Amino Transferase 64 U/L (0-34); Bilirubin,Direct 0.1 mg/dL (0.0-0.3); Bilirubin,Total 0.3 mg/dL (0.3-1.2); Total Protein 7.4 gm/dL (5.7-8.2)
[2025-02-23] MEDS: MIDODRINE 5 MG TABLET GT (17:50)
[2025-02-24] VITALS (12 sets, daily range): BP systolic 91–108; BP diastolic 57–69; PULSE 61–109; RESP 17–23; TEMP 35.8–36.3; O2SAT 97–100; BMI 17.4
[2025-02-24] MEDS: DEXTROSE 5%-LACTATED RINGERS 1,000 ML 125 ML IV (00:38)
[2025-02-24] MEDS: ALBUTEROL/IPRATROPIUM (Duoneb) RT SOL 3 ML NEBU INH ×4 (01:01→18:39)
[2025-02-24] MEDS: SODIUM CL RT SOL 3% 4 ML NEBU (NON-FORMULARY) INH ×3 (01:01→18:39)
[2025-02-24] MEDS: CEFEPIME INJ 2 GM in SODIUM CHLORIDE 0.9% (Popper) 50 ML IV ×3 (05:09→21:10)
[2025-02-24] MEDS: GABAPENTIN 300 MG CAPSULE GT ×3 (05:09→21:10)
[2025-02-24 06:32] LABS: Basophils # (Auto) 0.0 Thou/mm3 (0.0-0.2); Basophils % (Auto) 0 % (0-2.5); Eosinophils # (Auto) 0.2 Thou/mm3 (0.0-0.5); Eosinophils % (Auto) 2 % (0-10); Hematocrit 25.4 % (41.0-53.0); Immature Granulocytes Auto 0.01 Thou/mm3 (0.00-0.00); Lymphocytes # (Auto) 1.2 Thou/mm3 (1.0-4.8); Lymphocytes % (Auto) 13 % (10-50); Mean Corpuscular HGB Conc 31.5 g/dl (31.0-37.0); Mean Corpuscular Hemoglobin 27.0 pg (25.0-35.0); Mean Corpuscular Volume 86 fL (80-100); Monocytes # (Auto) 1.0 Thou/mm3 (0.0-0.8); Monocytes % (Auto) 11 % (0-12); Neutrophils # (Auto) 6.8 Thou/mm3 (1.8-7.7); Neutrophils % (Auto) 74 % (37-80); Nucleated Red Blood Cell # 0.00 Thou/mm3 (0.00-0.00); Nucleated Red Blood Cell % 0 /100 WBC (0); Platelet Count 263 Thou/mm3 (140-440); RDW Standard Deviation 78.3 fL (35.1-43.9); Red Blood Count 2.96 Miln/mm3 (4.50-5.90); White Blood Count 9.2 Thou/mm3 (3.8-10.6)
[2025-02-24 06:34] LABS: Hemoglobin 8.0 g/dL (13.5-16.0)
[2025-02-24 07:27] LABS: Alanine Aminotransferase 66 U/L (10-49); Albumin, Serum 3.1 gm/dL (3.5-5.0); Albumin/Globulin Ratio 0.8 (1.2-2.2); Alkaline Phosphatase 110 U/L (46-116); Anion Gap 12 (7-16); Aspartate Amino Transferase 39 U/L (0-34); BUN/Creatinine Ratio 23 Ratio (12-20); Bilirubin,Total 0.3 mg/dL (0.3-1.2); Blood Urea Nitrogen 14 mg/dL (9-23); Calcium 9.6 mg/dL (8.3-10.6); Calcium (Corrected) 10.3 mg/dL (8.5-10.1); Carbon Dioxide 23.1 mMol/L (20.0-31.0); Chloride 107 mMol/L (98-107); Creatinine (Component) 0.6 mg/dL (0.6-1.3); Estimated Creatinine Clearance 151.7 mL/min (>60); Globulin 3.7 gm/dL (2.3-3.5); Glucose 118 mg/dL (74-106); Magnesium 1.7 mg/dL (1.6-2.6); Osmolality,Calculated 284 (275-295); Phosphorous 2.8 mg/dL (2.4-5.1); Potassium 2.9 mMol/L (3.4-5.1); Sodium 142 mMol/L (136-145); Total Protein 6.8 gm/dL (5.7-8.2); eGFR > 60 See Note
[2025-02-24] MEDS: HEPARIN SOD INJ 5000 UNIT/ML VIAL SC ×2 (08:10→21:09)
[2025-02-24] MEDS: POTASSIUM CHLORIDE 10% 20 MEQ/15 ML UDC 40 MEQ GT (08:11)
[2025-02-24] MEDS: Magnesium Sulfate 2 GM Ivpb 2 GM/50 ML BAG IV (08:11)
[2025-02-24] MEDS: POTASSIUM CHLORIDE 10% 20 MEQ/15 ML UDC GT (08:11)
[2025-02-24] MEDS: METOPROLOL TARTRATE 25 MG TABLET 100 MG GT ×2 (08:11→21:10)
--- NOTE | 2025-02-24 09:27 | ESPR_ITS ---
<Statement entered by Margarito Merino MD - 02/24/25 14:50> No acute overnight events. Vitals are stable and patient is on room air saturating 100%. Labs done this morning showed significant decrease in the WBC count to 9.29, potassium 2.9, corrected calcium 10.3, AST and ALT are downtrending. Repleted with 60 mill equivalents of potassium through G-tube and 2 g of IV magnesium sulfate. Vancomycin is discontinued and will continue cefepime. Blood culture showed no growth after 48 hours. Gram stain of sputum showed gram-negative rods, final culture is pending. Will continue rest of his medications. Anticipate discharge in 24 to 48 hours I have personally seen and examined the patient, agree with residents assessment and plan Patient plan of care was discussed with the attending physician, Dr. Escobar Merino, PGY2 Documentation for date of: 02/24/25 Subjective Subjective Interval history: Overnight events: No acute events overnight. Patient was seen and examined at bedside. AM vitals and labs reviewed. Patient does not appear to be in acute distress at this time. Decrease blow-by to 1 L, patient continues to saturate at 100% oxygen. Potassium 2.9 Sputum culture grows gram-negative rods, pending speciation. Discontinued vancomycin given gram-negative rods. Continue cefepime (day 3 of 7), will narrow depending on speciation. Review of systems otherwise negative except for what is mentioned above. Exam Vital Signs Temp Pulse Resp BP Pulse Ox O2 Del Method O2 Flow Rate 96.9 F 68 22 H 98/57 L 99 Blow-by 6 02/24/25 08:00 02/24/25 08:11 02/24/25 08:00 02/24/25 08:11 02/24/25 08:00 02/24/25 08:00 02/24/25 06:07 FiO2 28 02/24/25 06:07 Narrative Exam Physical Exam: General: Alert, no acute distress. Nonverbal. Skin: Warm, dry, intact. Head: Normocephalic, atraumatic. Eye: Normal conjunctiva, PERRL. Throat: Tracheostomy midline, no bleeding noted. Clear sputum noted in trach tube. Cardiovascular: Regular rate and rhythm, no murmur, +S1/S2. Respiratory: Respirations unlabored, diffuse crackles on left. Gastrointestinal: Soft, nontender, non-distended. No guarding or rebound tenderness. PEG tube in place. Extremities: No edema, no cyanosis, no clubbing. Extremities postured in flexion. Bilateral popliteal fossa leg 4x4 cm dressings, yellow drainage noted from left wound. Neuro: Quadrapleigic, opens eyes spontaneously. Objective Labs 02/25/25 04:07 02/25/25 04:07 Labs: Laboratory Results - last 24 hr 02/22/25 02/23/25 02/23/25 11:48 08:49 10:20 WBC RBC Hgb Hct MCV MCH MCHC RDW Std Deviation Plt Count Neut % (Auto) Lymph % (Auto) [place] % (Auto) Eos % (Auto) Baso % (Auto) Neut # (Auto) Lymph # (Auto) [place] # (Auto) Eos # (Auto) Baso # (Auto) Immature Gran # (Auto) Absolute Nucleated RBC Immature Gran % Nucleated RBC % Sodium Potassium Chloride Carbon Dioxide Anion Gap BUN Creatinine Estim Creat Clear Calc eGFR BUN/Creatinine Ratio Glucose Calculated Osmolality Lactic Acid 2.3 H Calcium Corrected Calcium Phosphorus Magnesium Total Bilirubin Direct Bilirubin AST ALT Alkaline Phosphatase Total Protein Albumin Globulin Albumin/Globulin Ratio Vancomycin Trough 16.5 H Coccidioides IgM Ab Negative 02/23/25 02/23/25 02/24/25 14:09 16:55 04:54 WBC 9.2 D RBC 2.96 L Hgb 8.0 L Hct 25.4 L MCV 86 MCH 27.0 MCHC 31.5 RDW Std Deviation 78.3 H Plt Count 263 D Neut % (Auto) 74 Lymph % (Auto) 13 [place] % (Auto) 11 Eos % (Auto) 2 Baso % (Auto) 0 Neut # (Auto) 6.8 Lymph # (Auto) 1.2 [place] # (Auto) 1.0 H Eos # (Auto) 0.2 Baso # (Auto) 0.0 Immature Gran # (Auto) 0.01 H Absolute Nucleated RBC 0.00 Immature Gran % 0 Nucleated RBC % 0 Sodium 142 Potassium 2.9 L D Chloride 107 Carbon Dioxide 23.1 Anion Gap 12 BUN 14 Creatinine 0.6 Estim Creat Clear Calc 151.7 eGFR > 60 BUN/Creatinine Ratio 23 H Glucose 118 H Calculated Osmolality 284 Lactic Acid 1.1 Calcium 9.6 Corrected Calcium 10.3 H Phosphorus 2.8 Magnesium 1.7 Total Bilirubin 0.3 0.3 Direct Bilirubin 0.1 AST 64 H 39 H ALT 92 H 66 H Alkaline Phosphatase 127 H 110 Total Protein 7.4 6.8 Albumin 3.5 3.1 L Globulin 3.7 H Albumin/Globulin Ratio 0.8 L Vancomycin Trough Coccidioides IgM Ab ABG Interpretation ABG results: 02/21/25 23:11 VBG pH 7.50 VBG pCO2 30 L VBG pO2 66 H VBG Base Excess 1 Quality Measures Quality Measures VTE prophylaxis Assessment & Plan Assessment Current Active Medications: Generic Name Dose Route Start Last Admin Trade Name Freq PRN Reason Stop Dose Admin Hydrocodone Bitart/Acetaminophen 1 tab 02/22/25 07:08 Hydrocodone/Apap 10/325 Tab GT 02/26/25 23:13 Q4HR PRN PAIN SCALE 7-10 (Severe Albuterol/Ipratropium 3 ml 02/22/25 13:00 02/24/25 06:06 Albuterol/Ipratropium (Duoneb) Rt [place] 3 Ml Nebu INH 03/24/25 12:59 3 ml Q6HRRT RADHA Administration Baclofen 20 mg 02/22/25 07:41 02/23/25 03:12 Baclofen 10 Mg Tablet GT 03/24/25 07:40 20 mg Q6HR PRN Administration Spasms Gabapentin 300 mg 02/22/25 07:45 02/24/25 05:09 Gabapentin 300 Mg Capsule GT 03/24/25 07:44 300 mg TID RADHA Administration Heparin Sodium (Porcine) 5,000 unit 02/22/25 09:00 02/24/25 08:10 Heparin Sod Inj 5000 Unit/Ml Vial SC 03/08/25 08:59 5,000 unit BID RADHA Administration Cefepime HCl 2 gm/ Sodium 50 mls @ 100 mls/hr 02/22/25 07:15 02/24/25 05:09 Chloride IV 03/01/25 07:14 100 mls/hr Q8HR RADHA Administration Acetaminophen 1,000 mg in 100 mls @ 250 mls/hr 02/22/25 07:07 02/23/25 09:22 Ofirmev Inj IV 250 mls/hr Q6HR PRN Administration Fever >100.4 or Pain Protocol Magnesium Sulfate 2 gm in 50 mls @ 25 mls/hr 02/24/25 07:48 02/24/25 08:11 Magnesium Sulfate Ivpb IV 02/24/25 09:47 25 mls/hr X1 ONE Administration Levetiracetam 1,000 mg 02/22/25 09:00 02/24/25 08:14 Levetiracetam 250 Mg Tablet GT 03/24/25 08:59 1,000 mg BID RADHA Administration Metoprolol Tartrate 100 mg 02/23/25 09:00 02/24/25 08:11 Metoprolol Tartrate 25 Mg Tablet GT 03/25/25 08:59 100 mg BID RADHA Administration Midodrine 5 mg 02/22/25 10:57 02/23/25 17:50 Midodrine 5 Mg Tablet GT 03/24/25 13:59 5 mg TID PRN Administration Systolic BP <90 Morphine Sulfate 2 mg 02/23/25 10:06 Morphine Sulf Liqd 10 Mg/5 Ml Udc GT 02/28/25 10:05 Q8HR PRN 30 minutes before wound care Protocol Ondansetron HCl 4 mg 02/21/25 23:14 Ondansetron Inj 2 Mg/Ml Inj 2 Ml IVP 03/23/25 23:13 Q6H PRN NAUSEA OR VOMITING Protocol Oxycodone/Acetaminophen 1 tab 02/22/25 07:08 Oxycodone/Apap 5/325 Tablet GT 02/26/25 23:13 Q6H PRN PAIN SCALE 4-6 (Moderate Pantoprazole Sodium 40 mg 02/22/25 09:00 02/24/25 08:10 Pantoprazole Inj 40 Mg Vial IVP 03/24/25 08:59 40 mg QDAY RADHA Administration Sodium Chloride 4 ml 02/22/25 13:00 02/24/25 06:06 Sodium Cl Rt [place] 3% 4 Ml Nebu (Non-Formulary) INH 03/24/25 12:59 Not Given Q6HRRT RADHA Plan Mr. 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 Patient was admitted for sepsis workup. #Sepsis 2/2 #Ventilator associated pneumonia vs #Healthcare facility acquired pneumonia #HAGMA, resolved, 2/2 #Lactic acidosis, resolved Patient presented from subacute with temperature of 106 ?F, heart rate of 203, respiratory rate of 62, and WBC of 17.2. Patient was noted to have anion gap of 27 and bicarb of 12.1, likely secondary to lactic acidosis given lactic acid was 16.0 in ED, which decreased to 2.3 after 4 L of LR given in ED. VBG did show mild respiratory alkalosis with pH of 7.5 and pCO2 of 30. The patient has multiple sources of possible infection, given that checks x-ray showed severe bilateral pneumonia, and the patient was recently discharged from [facility] for sepsis with cultures positive from sputum and skin ulcers on popliteal fossa. Urinalysis was negative for suspicion of infection. Patient was recently discharged from [facility] with clindamycin and Zosyn for pneumonia secondary to trach placement and chronic colonization. Will likely need to broaden antibiotics as infection did not seem to be controlled with those 2 antibiotics upon discharge. SIRS score 4 Diagnostics: Ordered RSV, COVID-19 PCR to investigate further sources of infection, resulted negative Blood cultures drawn on 02/21, negative after 24 hours Lactic acid 02/23 14:09 1.1 Plan: Cefepime 2 mg every 8 hours (02/22--) Vancomycin, pharmacy to dose (02/22-02/24), discontinued due to sputum culture growing GNR Sputum culture collected 02/22, GNR x4 organisms preliminary results PICC line insertion ordered, pending Ordered cocci, pending Chest physiotherapy twice daily ordered #Transaminitis, resolving Patient was noted to have AST of 87 and ALT of 90 on 02/23, which is increased from his baseline. Plan: Continue to monitor #SVT, resolved #Sinus tachycardia Patient was noted to have heart rate in the 200s in ED. EKG obtained in ED showed SVT. Patient received 3 doses of adenosine in ED and converted to sinus tachycardia, which later improved with 4 L of IV LR and magnesium. Plan: Continue to monitor via telemetry box Keep potassium above 4 and magnesium above 2 Metoprolol tartrate 100 mg twice daily #JESUS, likely pre-renal, resolving Patient was noted to have a creatinine of 1.2 in the ED. Baseline is noted to be around 0.6. Given that the patient had significant improvement of lactic acidosis in ED, this is likely prerenal secondary to poor fluid intake/administration. Plan: Continue to monitor renal panel Avoid nephrotoxins Renally dose medications Hold TETE/ARB/diuretics #Electrolyte abnormalities #Hyperkalemia, resolved #Hypercalcemia, resolving #Hypomagnesemia, resolved Patient noted to have a potassium 5.8, calcium 11.2, and magnesium 1.2 in ED. Likely secondary to dehydration and malnutrition as patient was noted to significantly improve after being given 4 L LR in ED and appropriately replenished. 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 Patient is aware and does respond to commands. Due to this, the patient is status post tracheostomy and status post PEG tube. Patient is reliant on PEG tube feeds. 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 Plan: Wound care referral ordered Registered dietitian referral ordered, Jevity 1.5 goal rate 68 mL/hr Oral care as needed Keppra 1000 mg twice daily Gabapentin 100 mg 3 times daily Baclofen 20 mg every 6 hours as needed DVT Prophylaxis: Heparin GI Prophylaxis: Protonix Bowel: N/A Diet: Jevity 1.5 Langston: Yes Lines: Peripheral IV, trach, PEG Antibiotics: Cefepime (02/22-02/28) Code Status: FULL Reason for Hospitalization: Sepsis Other Barriers to Discharge: Sputum culture Patient plan of care was discussed with attending physician Dr. Cody and senior resident Dr. Merino (PGY-2) Nomi Perea, PGY1 Attending Provider Attestation/Addendum Face to face evaluation was performed by me. I have personally seen and examined the patient. I discussed the assessment and plan with the entire medicine team. I reviewed available medical records, imaging studies, laboratory results. I agree with the above subjective data, objective findings, assessment and plan except as corrected by me or noted below Ventilator associated pneumonia, gram-negative bacilli Severe sepsis with septic shock and lactic acidosis of 16, due to lactic acidosis to above present admission with septic shock Chronic trach G-tube on chronic tube feeds Continue broad-spectrum antibiotic With cefepime, vancomycin for MRSA coverage, will discontinue vancomycin for now as there are no evidence of MRSA and patient clinically improved ment More than > 30 minutes spent on the encounter
[2025-02-24 13:42] LABS: Cocci Serology, IgG Negative (Negative)
--- NOTE | 2025-02-24 16:21 | PC.SS ---
Rounding: on IV ABX, DC [facility] when stable
[2025-02-24] MEDS: DEXTROSE 5%-NS 500 ML 75 ML IV (23:29)
[2025-02-25] VITALS (64 sets, daily range): BP systolic 65–149; BP diastolic 37–105; PULSE 50–188; RESP 9–61; TEMP 34.6–39.2; O2SAT 91–100; BMI 17.4
[2025-02-25] MEDS: SODIUM CL RT SOL 3% 4 ML NEBU (NON-FORMULARY) INH ×3 (00:35→19:07)
[2025-02-25] MEDS: ALBUTEROL/IPRATROPIUM (Duoneb) RT SOL 3 ML NEBU INH ×3 (00:35→12:21)
[2025-02-25] MEDS: GABAPENTIN 300 MG CAPSULE GT ×2 (05:10→14:18)
[2025-02-25] MEDS: CEFEPIME INJ 2 GM in SODIUM CHLORIDE 0.9% (Popper) 50 ML IV ×2 (05:11→18:14)
[2025-02-25 05:38] LABS: Basophils # (Auto) 0.0 Thou/mm3 (0.0-0.2); Basophils % (Auto) 0 % (0-2.5); Eosinophils # (Auto) 0.1 Thou/mm3 (0.0-0.5); Eosinophils % (Auto) 2 % (0-10); Hematocrit 26.1 % (41.0-53.0); Immature Granulocytes Auto 0.02 Thou/mm3 (0.00-0.00); Lymphocytes # (Auto) 0.9 Thou/mm3 (1.0-4.8); Lymphocytes % (Auto) 13 % (10-50); Mean Corpuscular HGB Conc 31.0 g/dl (31.0-37.0); Mean Corpuscular Hemoglobin 26.7 pg (25.0-35.0); Mean Corpuscular Volume 86 fL (80-100); Monocytes # (Auto) 0.9 Thou/mm3 (0.0-0.8); Monocytes % (Auto) 13 % (0-12); Neutrophils # (Auto) 4.9 Thou/mm3 (1.8-7.7); Neutrophils % (Auto) 71 % (37-80); Nucleated Red Blood Cell # 0.00 Thou/mm3 (0.00-0.00); Nucleated Red Blood Cell % 0 /100 WBC (0); Platelet Count 238 Thou/mm3 (140-440); RDW Standard Deviation 76.2 fL (35.1-43.9); Red Blood Count 3.03 Miln/mm3 (4.50-5.90); White Blood Count 6.9 Thou/mm3 (3.8-10.6)
[2025-02-25 05:42] LABS: Hemoglobin 8.1 g/dL (13.5-16.0)
[2025-02-25] MEDS: DEXTROSE 50%-WATER INJ 50 ML SYRINGE 25 ML IV (06:19)
[2025-02-25 06:25] LABS: Alanine Aminotransferase 50 U/L (10-49); Albumin, Serum 3.0 gm/dL (3.5-5.0); Albumin/Globulin Ratio 0.9 (1.2-2.2); Alkaline Phosphatase 115 U/L (46-116); Anion Gap 13 (7-16); Aspartate Amino Transferase 25 U/L (0-34); BUN/Creatinine Ratio 20 Ratio (12-20); Bilirubin,Total < 0.2 mg/dL (0.3-1.2); Blood Urea Nitrogen 10 mg/dL (9-23); Calcium 9.3 mg/dL (8.3-10.6); Calcium (Corrected) 10.1 mg/dL (8.5-10.1); Carbon Dioxide 21.2 mMol/L (20.0-31.0); Chloride 108 mMol/L (98-107); Creatinine (Component) 0.5 mg/dL (0.6-1.3); Estimated Creatinine Clearance 182.0 mL/min (>60); Globulin 3.4 gm/dL (2.3-3.5); Glucose 87 mg/dL (74-106); Magnesium 1.6 mg/dL (1.6-2.6); Osmolality,Calculated 281 (275-295); Phosphorous 2.8 mg/dL (2.4-5.1); Potassium 3.5 mMol/L (3.4-5.1); Sodium 142 mMol/L (136-145); Total Protein 6.4 gm/dL (5.7-8.2); eGFR > 60 See Note
--- NOTE | 2025-02-25 09:08 | PC.SS ---
Follow up note: Final sputum cultures pending. Pt will return to [facility] upon dc.
[2025-02-25] MEDS: POTASSIUM CHLORIDE 10% 20 MEQ/15 ML UDC 40 MEQ GT (09:40)
[2025-02-25 09:43] LABS: Vancomycin,Trough 4.7 mcg/mL (5.0-10.0)
[2025-02-25 09:47] LABS: Influenza A Ag Negative; Influenza B Ag Negative
[2025-02-25] MEDS: Magnesium Sulfate 4 GM Ivpb 4 GM/50 ML BAG IV (09:51)
[2025-02-25] MEDS: HEPARIN SOD INJ 5000 UNIT/ML VIAL SC ×2 (09:51→21:23)
--- NOTE | 2025-02-25 12:58 | PD.ADDDSCHGE ---
Addendum Discharge Addendum Date of report being addended: 02/25/25 Narrative: Face to face evaluation was performed by me. I have personally seen and examined the patient. I discussed the assessment and plan with the entire medicine team. I reviewed available medical records, imaging studies, laboratory results. I agree with the above subjective data, objective findings, assessment and plan except as corrected by me or noted below Ventilator associated pneumonia, gram-negative bacilli Sepsis due to above present admission with septic shock Chronic trach G-tube on chronic tube feeds Continue broad-spectrum antibiotic Was kept on IV cefepime, plan to switch to oral antibacterial coverage?according to cultures grew Klebsiella, Pseudomonas and Proteus, some ESBL patent clinically improved on iv cefepime. would plan to change to po Levaquin and Augmentin for 5 more days to cover the bacterias- plan to dc back to subacute facility More than > 30 minutes spent on the encounter
[2025-02-25 13:07] LABS: INR 1.2 (0.9-1.3); Partial Thromboplastin Time 27.3 Seconds (22.0-36.0); Prothrombin Time 12.8 Seconds (9.0-12.2)
--- NOTE | 2025-02-25 13:52 | PD.RESDS ---
Planned Discharge Date 02/25/25 DS: Providers Provider Date of admission: 02/21/25 23:14 Primary care physician: Physician No Primary/Family Admitting Provider: Cristal Demarco MD Attending Provider on Admission: Roberto Cody MD Consults: 02/21/25 23:48 Referral Registered Dietitian Routine Comment: PEG tube feed 02/22/25 11:39 Referral Wound Care Stat Comment: 02/22/25 15:34 Referral Nutritional Services Routine Comment: Instructions: Wounds Attending Provider on DC: RESIDENT Albina Discharging Provider: RESIDENT Albina Hospital Course Hospital Course Hospital course: Overnight events: No acute events overnight. Patient was seen and examined at bedside. AM vitals and labs reviewed. Patient does not appear to be in acute distress at this time. Decrease blow-by to 1 L, patient continues to saturate at 100% oxygen. Potassium 2.9 Sputum culture grows gram-negative rods, pending speciation. Discontinued vancomycin given gram-negative rods. Continue cefepime (day 3 of 7), will narrow depending on speciation. Review of systems otherwise negative except for what is mentioned above. 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 If you do not have appointment, please follow-up with the [facility] with Dr. Merino. Call [phone] to make an appointment. -Recommended to continue home medications and recommended to do deep suction -Return to ED if symptoms persist or return Prescriptions/Referrals Prescriptions/Med Rec: Continued acetaminophen 325 mg tablet 650 mg G-tube Q6HR PRN (Reason: Pain) 30 Days 0RF Rx Instructions: not to exceed 3 gm of tylenol in 24 hours from all other sources albuterol sulfate 2.5 mg /3 mL (0.083 %) solution for nebulization 2.5 mg inhalation Q4H PRN (Reason: shortness of breath or wheezing) 30 Days 0RF ascorbic acid (vitamin C) 500 mg tablet 500 mg G-tube BID 30 Days Qty: 30 0RF atorvastatin 40 mg tablet 40 mg G-tube HS 30 Days Qty: 30 0RF baclofen 20 mg tablet 20 mg G-tube Q6HR 30 Days Qty: 30 0RF bisacodyl [Dulcolax (bisacodyl)] 10 mg suppository 10 mg NV PRN PRN (Reason: No BM Per Bowel Management Protocol) 30 Days 0RF Rx Instructions: Administer as needed on 6th shift, if MOM ineffective. gabapentin 300 mg capsule 300 mg G-tube TID 30 Days Qty: 30 0RF guaifenesin [Noreen-Tussin] 100 mg/5 mL liquid 200 mg G-tube Q4H PRN (Reason: congestion/cough) 30 Days Qty: 118 0RF ipratropium-albuterol 0.5 mg-3 mg(2.5 mg base)/3 mL solution for nebulization 3 ml INH Q2HR PRN (Reason: Wheezing) 30 Days 0RF lansoprazole 30 mg capsule,delayed release(DR/EC) 30 mg G-tube QDAY 30 Days Qty: 30 0RF levetiracetam 100 mg/mL solution 1,000 mg G-tube BID 30 Days Qty: 300 0RF magnesium hydroxide [Milk of Magnesia] 400 mg/5 mL suspension 30 ml G-tube PRN PRN (Reason: Constipation) 30 Days 0RF Rx Instructions: CONC: 400MG/5ML midodrine 5 mg tablet 5 mg G-tube TID PRN (Reason: Hold for SBP>90 and DBP>50) 30 Days 0RF Rx Instructions: do not give last dose of day after 6PM or within 4 hrs of bedtime morphine concentrate 100 mg/5 mL (20 mg/mL) solution 2 mg G-tube TID MDD 6 mg PRN (Reason: GIVE 30 MINS PRIOR TO WOUND TX) 365 Days Qty: 15 0RF multivitamin Tablet 1 tab G-tube QDAY 30 Days Qty: 30 0RF polyethylene glycol 3350 17 gram powder in packet 17 g G-tube PRN PRN (Reason: No BM Per Bowel Management Protocol) 30 Days 0RF Rx Instructions: Mix with 4oz of water before giving. Hold tube feeding for 30 minutes after administration. Notify provider if no results from Miralax. Fleet Enema 19-7 gram/118 mL enema 133 ml NV PRN PRN (Reason: No BM Per Bowel Management Protocol) 30 Days 0RF acetaminophen 325 mg tablet 650 mg G-tube Q4HR PRN (Reason: Fever > 100.0) 30 Days 0RF Rx Instructions: not to exceed 3 gms of tylenol in 24 hours from all other sources metoprolol tartrate 25 mg tablet 100 mg G-tube BID 30 Days Qty: 120 0RF Rx Instructions: Hold for SBP<100 and or HR<60 (BBW) lactulose 10 gram/15 mL solution 10 g feeding tube QDAY 30 Days Qty: 450 0RF Rx Instructions: hold if with loose BM Referrals: No Primary/Family,Physician [Primary Care Provider] Patient/Caregiver Discharge Instructions Education Materials: What Is Pneumonia?, Preventing Pneumonia, Treating Pneumonia, Dehydration, When You Have Pneumonia, When to Use Antibiotics Print Language: Tamazight Stand Alone Forms: Claudia Award Info., Patient Portal Info Letter
--- NOTE | 2025-02-25 15:03 | PC.SS ---
KEVIN has faxed patient's facesheet and dc summary to [facility], per Marlin's request from [facility]. KEVIN has provided RnDorene with patient's d/c SNF packet and is aware pt was d/c today.
[2025-02-25] MEDS: AMOXICILLIN/POT CLAV 875 TABLET 1 TAB GT ×2 (15:21→15:22)
[2025-02-25] MEDS: LEVOFLOXACIN 250 MG TABLET 750 MG GT (15:21)
--- NOTE | 2025-02-25 15:43 | PD.RESEVENT ---
Documentation for date of: 02/25/25 Event Note Event Note: Rapid Response Room:?261 Time:??15:43 Reason for Call:?HR 160s Patient presentation:?Patient appeared diaphoretic and agitated compared to baseline. Temperature 98.1 ?F, BP 119/75, heart rate 136, respiratory rate 44, O2 saturation 98% on room air. Assessment:?Patient is likely agitated and vitals are abnormal secondary to pain. Morphine 2 mg is ordered as needed during wound care management, however patient has not received any morphine for the past 24 hours. Blood glucose check was ordered which showed blood glucose of 65, so hypoglycemia may also have been contributing to patient presentation. New orders:? - EKG - D50 amp - Morphine 2 mg - Metoprolol 2 mg Patient was discussed with the attending, Dr. Escobar Perea, PGY-1
--- NOTE | 2025-02-25 15:44 | EKG_ITS ---
[facility] Test Date: 2025-02-25 Pat Name: STAS CASTLE Department: Room: S261A Gender: Male Manager Talent Acquisition: MARTINA : 1995 Requested By: Nomi Perea Order Number: [id number] Reading MD: Nomi Perea Measurements Intervals [place] Rate: 160 P: 63 NC: 108 QRS: -12 QRSD: 67 T: -13 QT: 243 QTc: 396 Interpretive Statements SINUS TACHYCARDIA WITH SHORT NC INTERVAL NONSPECIFIC T-WAVE ABNORMALITY ABNORMAL RHYTHM ECG Compared to ECG 02/21/2025 20:00:01 Short NC interval now present Supraventricular tachycardia no longer present Intraventricular conduction delay no longer present T-wave abnormality still present /store/S0/[id number].pdf
[2025-02-25] MEDS: MORPHINE SULF LIQD 10 MG/5 ML UDC 2 MG GT (15:46)
--- NOTE | 2025-02-25 15:48 | PC.SS ---
SS has informed Milady from [facility] pt does require [facility] until after 7 day bedhold, per [facility] representatives and previous Telephone Lineman from [facility].
[2025-02-25] MEDS: DEXTROSE 50%-WATER INJ 50 ML SYRINGE IVP ×4 (16:00→20:25)
--- NOTE | 2025-02-25 16:12 | ESPR_ITS ---
<Statement entered by Margarito Merino MD - 02/26/25 17:37> Patient is seen and examined at bedside. Overnight, patient noted to have a low blood glucose for which an amp of D50 is given. Appears to be at baseline. Later noted to have temperature of 94 ?F for which patient was started on Valencia hugger. Labs did not show any significant abnormalities and AST ALT start to downtrend. Initially plan to discharge back to subacute but later around 4 PM, patient had rapid response in view of tachycardia and tachypnea and found to have hypoglycemia of 63 for which dextrose was given and and patient still found to have recurrent hypoglycemic episodes within 10 minutes and despite giving morphine, metoprolol the heart rate is still in the 180s. ICU is consulted and as patient does not have any peripheral venous accesses, femoral central line was placed and patient was upgraded to ICU for further management. I have personally seen and examined the patient, agree with residents assessment and plan Patient plan of care was discussed with the attending physician, Dr. Escobar Merino, PGY2 Documentation for date of: 02/25/25 Subjective Subjective Interval history: Overnight events: Low blood glucose overnight, was given D50 amp. Patient was seen and examined at bedside. AM vitals and labs reviewed. Patient does not appear to be in any acute distress at this time. Did get a call from nursing staff about temperature of 94 ?F. Resumed Valencia hugger. WBC 6.9, calcium 10.1, magnesium 1.6, AST/ALT downtrending. Was initially planning to discharge today, however patient had rapid response for elevated heart rate and respiratory rate. Patient was then found to have hypoglycemia of 65. Broaden antibiotics to include vancomycin. Continue cefepime (day 4 of 7). Started 1L D10W at 50 ml/h. Discussed with RD about tube feed carbohydrates, to which it is noted that the patient should be receiving appropriate amount that would not explain his hypoglycemic events. Review of systems otherwise negative except for what is mentioned above. Exam Vital Signs Temp Pulse Resp BP Pulse Ox O2 Del Method O2 Flow Rate 97.3 F 91 19 97/53 L 100 Blow-by 6 02/25/25 12:00 02/25/25 12:22 02/25/25 12:22 02/25/25 12:00 02/25/25 12:22 02/25/25 12:00 02/25/25 12:22 FiO2 28 02/25/25 12:22 Narrative Exam Physical Exam: General: Alert, no acute distress. Nonverbal. Skin: Warm, dry, intact. Head: Normocephalic, atraumatic. Eye: Normal conjunctiva, PERRL. Throat: Tracheostomy midline, no bleeding noted. Clear sputum noted in trach tube. Cardiovascular: Regular rate and rhythm, no murmur, +S1/S2. Respiratory: Respirations unlabored, diffuse crackles on left. Gastrointestinal: Soft, nontender, non-distended. No guarding or rebound tenderness. PEG tube in place. Extremities: No edema, no cyanosis, no clubbing. Extremities postured in flexion. Bilateral popliteal fossa leg 4x4 cm dressings, yellow drainage noted from left wound. Neuro: Quadrapleigic, opens eyes spontaneously. Objective Labs 02/27/25 04:50 02/27/25 04:50 Labs: Laboratory Results - last 24 hr 02/25/25 02/25/25 02/25/25 04:07 08:00 09:20 WBC 6.9 RBC 3.03 L Hgb 8.1 L Hct 26.1 L MCV 86 MCH 26.7 MCHC 31.0 RDW Std Deviation 76.2 H Plt Count 238 Neut % (Auto) 71 Lymph % (Auto) 13 [place] % (Auto) 13 H Eos % (Auto) 2 Baso % (Auto) 0 Neut # (Auto) 4.9 Lymph # (Auto) 0.9 L [place]kin # (Auto) 0.9 H Eos # (Auto) 0.1 Baso # (Auto) 0.0 Immature Gran # (Auto) 0.02 H Absolute Nucleated RBC 0.00 Immature Gran % 0 Nucleated RBC % 0 PT 12.8 H INR 1.2 APTT 27.3 Sodium 142 Potassium 3.5 D Chloride 108 H Carbon Dioxide 21.2 Anion Gap 13 BUN 10 Creatinine 0.5 L Estim Creat Clear Calc 182.0 eGFR > 60 BUN/Creatinine Ratio 20 Glucose 87 Calculated Osmolality 281 Calcium 9.3 Corrected Calcium 10.1 Phosphorus 2.8 Magnesium 1.6 Total Bilirubin < 0.2 L AST 25 ALT 50 H Alkaline Phosphatase 115 Total Protein 6.4 Albumin 3.0 L Globulin 3.4 Albumin/Globulin Ratio 0.9 L Vancomycin Trough 4.7 L Influenza A (Rapid) Negative Influenza B (Rapid) Negative ABG Interpretation ABG results: 02/21/25 23:11 VBG pH 7.50 VBG pCO2 30 L VBG pO2 66 H VBG Base Excess 1 Quality Measures Quality Measures VTE prophylaxis Assessment & Plan Assessment Current Active Medications: Generic Name Dose Route Start Last Admin Trade Name Freq PRN Reason Stop Dose Admin Hydrocodone Bitart/Acetaminophen 1 tab 02/22/25 07:08 Hydrocodone/Apap 10/325 Tab GT 02/26/25 23:13 Q4HR PRN PAIN SCALE 7-10 (Severe Albuterol/Ipratropium 3 ml 02/22/25 13:00 02/25/25 12:21 Albuterol/Ipratropium (Duoneb) Rt [place] 3 Ml Nebu INH 03/24/25 12:59 3 ml Q6HRRT RADHA Administration Amoxicillin/Clavulanate Potassium 1 tab 02/25/25 14:30 02/25/25 15:22 Amoxicillin/Pot Clav 875 Tablet GT 03/04/25 14:29 1 tab BID RADHA Administration Baclofen 20 mg 02/22/25 07:41 02/23/25 03:12 Baclofen 10 Mg Tablet GT 03/24/25 07:40 20 mg Q6HR PRN Administration Spasms Gabapentin 300 mg 02/22/25 07:45 02/25/25 14:18 Gabapentin 300 Mg Capsule GT 03/24/25 07:44 300 mg TID RADHA Administration Heparin Sodium (Porcine) 5,000 unit 02/22/25 09:00 02/25/25 09:51 Heparin Sod Inj 5000 Unit/Ml Vial SC 03/08/25 08:59 5,000 unit BID RADHA Administration Acetaminophen 1,000 mg in 100 mls @ 250 mls/hr 02/22/25 07:07 02/23/25 09:22 Ofirmev Inj IV 250 mls/hr Q6HR PRN Administration Fever >100.4 or Pain Protocol Levetiracetam 1,000 mg 02/22/25 09:00 02/25/25 09:40 Levetiracetam 250 Mg Tablet GT 03/24/25 08:59 1,000 mg BID RADHA Administration Metoprolol Tartrate 100 mg 02/23/25 09:00 02/25/25 09:59 Metoprolol Tartrate 25 Mg Tablet GT 03/25/25 08:59 Not Given BID RADHA Midodrine 5 mg 02/22/25 10:57 02/23/25 17:50 Midodrine 5 Mg Tablet GT 03/24/25 13:59 5 mg TID PRN Administration Systolic BP <90 Morphine Sulfate 2 mg 02/23/25 10:06 02/25/25 15:46 Morphine Sulf Liqd 10 Mg/5 Ml Udc GT 02/28/25 10:05 2 mg Q8HR PRN Administration 30 minutes before wound care Protocol Ondansetron HCl 4 mg 02/21/25 23:14 Ondansetron Inj 2 Mg/Ml Inj 2 Ml IVP 03/23/25 23:13 Q6H PRN NAUSEA OR VOMITING Protocol Oxycodone/Acetaminophen 1 tab 02/22/25 07:08 Oxycodone/Apap 5/325 Tablet GT 02/26/25 23:13 Q6H PRN PAIN SCALE 4-6 (Moderate Pantoprazole Sodium 40 mg 02/22/25 09:00 02/25/25 09:51 Pantoprazole Inj 40 Mg Vial IVP 03/24/25 08:59 40 mg QDAY RADHA Administration Sodium Chloride 4 ml 02/22/25 13:00 02/25/25 06:47 Sodium Cl Rt [place] 3% 4 Ml Nebu (Non-Formulary) INH 03/24/25 12:59 4 ml Q6HRRT RADHA Administration Plan Mr. 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 Patient was admitted for sepsis workup. #Hypoglycemia Patient has episodes of hypoglycemia and has required multiple D50 ampules to maintain blood glucose above 70 throughout hospitalization. Noted to start around 02/22. Per RD, current tube feed of Jevity 1.5 at 68 mL/h would not explain episodes of hypoglycemia. Plan: 1 L LR 02/26 1 L D10W 02/26 D50 ampules as needed for glucose <70 #Sepsis 2/2 #Ventilator associated pneumonia vs #Healthcare facility acquired pneumonia #HAGMA, resolved, 2/2 #Lactic acidosis, resolved Patient presented from subacute with temperature of 106 ?F, heart rate of 203, respiratory rate of 62, and WBC of 17.2. Patient was noted to have anion gap of 27 and bicarb of 12.1, likely secondary to lactic acidosis given lactic acid was 16.0 in ED, which decreased to 2.3 after 4 L of LR given in ED. VBG did show mild respiratory alkalosis with pH of 7.5 and pCO2 of 30. The patient has multiple sources of possible infection, given that checks x-ray showed severe bilateral pneumonia, and the patient was recently discharged from [facility] for sepsis with cultures positive from sputum and skin ulcers on popliteal fossa. Urinalysis was negative for suspicion of infection. Patient was recently discharged from [facility] with clindamycin and Zosyn for pneumonia secondary to trach placement and chronic colonization. Will likely need to broaden antibiotics as infection did not seem to be controlled with those 2 antibiotics upon discharge. SIRS score 4 Diagnostics: Ordered RSV, COVID-19 PCR to investigate further sources of infection, resulted negative Blood cultures drawn on 02/21, negative after 24 hours Lactic acid 02/23 14:09 1.1 Ordered cocci, resulted as negative Plan: Cefepime 2 mg every 8 hours (02/22--) Vancomycin, pharmacy to dose (02/22--) Sputum culture collected 02/22, GNR x4 organisms preliminary results PICC line insertion ordered, pending Chest physiotherapy twice daily ordered #Transaminitis, resolving Patient was noted to have AST of 87 and ALT of 90 on 02/23, which is increased from his baseline. Plan: Continue to monitor #SVT, resolved #Sinus tachycardia Patient was noted to have heart rate in the 200s in ED. EKG obtained in ED showed SVT. Patient received 3 doses of adenosine in ED and converted to sinus tachycardia, which later improved with 4 L of IV LR and magnesium. Plan: Continue to monitor via telemetry box Keep potassium above 4 and magnesium above 2 Metoprolol tartrate 100 mg twice daily #JESUS, likely pre-renal, resolving Patient was noted to have a creatinine of 1.2 in the ED. Baseline is noted to be around 0.6. Given that the patient had significant improvement of lactic acidosis in ED, this is likely prerenal secondary to poor fluid intake/administration. Plan: Continue to monitor renal panel Avoid nephrotoxins Renally dose medications Hold TETE/ARB/diuretics #Electrolyte abnormalities #Hyperkalemia, resolved #Hypercalcemia, resolving #Hypomagnesemia, resolved Patient noted to have a potassium 5.8, calcium 11.2, and magnesium 1.2 in ED. Likely secondary to dehydration and malnutrition as patient was noted to significantly improve after being given 4 L LR in ED and appropriately replenished. 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 Patient is aware and does respond to commands. Due to this, the patient is status post tracheostomy and status post PEG tube. Patient is reliant on PEG tube feeds. 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 Plan: Wound care referral ordered Registered dietitian referral ordered, Jevity 1.5 goal rate 68 mL/hr Oral care as needed Keppra 1000 mg twice daily Gabapentin 100 mg 3 times daily Baclofen 20 mg every 6 hours as needed DVT Prophylaxis: Heparin GI Prophylaxis: Protonix Bowel: N/A Diet: Jevity 1.5 Lang[place]: Yes Lines: Peripheral IV, trach, PEG Antibiotics: Cefepime (02/22-02/28) Code Status: FULL Reason for Hospitalization: Sepsis Other Barriers to Discharge: Sputum culture Patient plan of care was discussed with attending physician Dr. Cody and senior resident Dr. Merino (PGY-2) Nomi Perea, PGY1 Attending Provider Attestation/Addendum Ventilator associated pneumonia, gram-negative bacilli Sepsis due to above present admission with septic shock Chronic trach G-tube on chronic tube feeds Continue broad-spectrum antibiotic DC cancelled due to hypoglycemia, sepsis- broaded abxs likely again
--- NOTE | 2025-02-25 16:30 | XR_ITS ---
Examination: AP chest single view. Technique: AP portable supine chest single view. Date and time: 2024, 1729 hrs. Comparison 02/21/2025 Indications: Tachypnea and fever today. Findings: Significant left upper lobe pneumonia. Normal heart size. The osseous structures are intact. Impression: Significant left upper lobe pneumonia
[2025-02-25] MEDS: MORPHINE SULF INJ 4 MG/ML VIAL 2 MG IVP ×3 (16:35→17:55)
--- NOTE | 2025-02-25 16:47 | XR_ITS ---
Examination: Venous duplex lower extremity sonogram, bilateral. Date and time of exam: 4 hrs. Indications: Leg pain and swelling this week Technique: Multiple sonographic images of the deep venous system have been obtained. B-mode/2-D grayscale imaging of vascular structures and Doppler spectral analysis (waveforms) and color performed Both legs are examined. Findings: Deep venous systems do not demonstrate abnormal echogenicity. Patient contracted with no diagnostic visualization right peroneal right posterior tibial, left peroneal left posterior tibial All visualized deep veins exhibit compressibility. All visualized deep veins exhibit augmentation. Impression: Limited study No DVT demonstrated
[2025-02-25] MEDS: DEXTROSE 10%-WATER 1000 ML 1,000 ML 50 ML IV (16:48)
[2025-02-25] MEDS: METOPROLOL TARTRATE INJ 1 MG/ML AMP 5 ML 2 MG IVP (16:53)
--- NOTE | 2025-02-25 17:09 | EKG_ITS ---
[facility] Test Date: 2025-02-25 Pat Name: STAS CASTLE Department: Room: 61A Gender: Male Machine Sprayer: MARTINA : 1995 Requested By: Gen Clemons Order Number: [id number] Reading MD: Gen Clemons Measurements Intervals [place] Rate: 194 P: [place]: QRS: -13 QRSD: 73 T: 58 QT: 222 QTc: 399 Interpretive Statements SUPRAVENTRICULAR TACHYCARDIA NONSPECIFIC T-WAVE ABNORMALITY ABNORMAL RHYTHM ECG Compared to ECG 02/25/2025 15:51:30 Sinus tachycardia no longer present Short [place] interval no longer present T-wave abnormality still present /store/S0/[id number].pdf
[2025-02-25] MEDS: RINGERS LACTATED 500 ML 500 ML 999 ML IV ×2 (17:15→17:34)
[2025-02-25 17:28] LABS: Basophils # (Auto) 0.0 Thou/mm3 (0.0-0.2); Basophils % (Auto) 0 % (0-2.5); Eosinophils # (Auto) 0.1 Thou/mm3 (0.0-0.5); Eosinophils % (Auto) 1 % (0-10); Hematocrit 32.3 % (41.0-53.0); Hemoglobin 9.9 g/dL (13.5-16.0); Immature Granulocytes Auto 0.02 Thou/mm3 (0.00-0.00); Lymphocytes # (Auto) 1.2 Thou/mm3 (1.0-4.8); Lymphocytes % (Auto) 17 % (10-50); Mean Corpuscular HGB Conc 30.7 g/dl (31.0-37.0); Mean Corpuscular Hemoglobin 26.4 pg (25.0-35.0); Mean Corpuscular Volume 86 fL (80-100); Monocytes # (Auto) 0.5 Thou/mm3 (0.0-0.8); Monocytes % (Auto) 7 % (0-12); Neutrophils # (Auto) 5.4 Thou/mm3 (1.8-7.7); Neutrophils % (Auto) 74 % (37-80); Nucleated Red Blood Cell # 0.00 Thou/mm3 (0.00-0.00); Nucleated Red Blood Cell % 0 /100 WBC (0); Platelet Count 337 Thou/mm3 (140-440); RDW Standard Deviation 78.3 fL (35.1-43.9); Red Blood Count 3.75 Miln/mm3 (4.50-5.90); White Blood Count 7.3 Thou/mm3 (3.8-10.6)
[2025-02-25 17:32] LABS: Lactate (Lactic Acid) 9.2 mMol/L (0.4-2.0)
[2025-02-25] MEDS: RINGERS LACTATED 1000 ML 1,000 ML 999 ML IV (17:55)
[2025-02-25 17:58] LABS: Alanine Aminotransferase 64 U/L (10-49); Albumin, Serum 4.0 gm/dL (3.5-5.0); Albumin/Globulin Ratio 0.9 (1.2-2.2); Alkaline Phosphatase 159 U/L (46-116); Aspartate Amino Transferase 35 U/L (0-34); BUN/Creatinine Ratio 14 Ratio (12-20); Bilirubin,Total 0.2 mg/dL (0.3-1.2); Blood Urea Nitrogen 11 mg/dL (9-23); Calcium 10.6 mg/dL (8.3-10.6); Calcium (Corrected) 10.6 mg/dL (8.5-10.1); Chloride 107 mMol/L (98-107); Creatinine (Component) 0.8 mg/dL (0.6-1.3); Estimated Creatinine Clearance 113.8 mL/min (>60); Globulin 4.6 gm/dL (2.3-3.5); Glucose 181 mg/dL (74-106); Osmolality,Calculated 287 (275-295); Potassium 5.7 mMol/L (3.4-5.1); Sodium 142 mMol/L (136-145); Total Protein 8.6 gm/dL (5.7-8.2); Troponin I < 0.020 ng/mL (0.0-0.045); eGFR > 60 See Note
[2025-02-25 17:58] LABS: Base Excess -7 (-3-3); HCO3 18 mEq/L (20-26); Inspired Oxygen, FIO2 28 %; O2 Saturation 68 % (91-98); PCO2 32 mmHg (32.0-48.0); pH, Arterial 7.35 (7.35-7.45)
[2025-02-25 18:00] LABS: Allen Test Performed/OK; PO2 39 mmHg (83-108); Puncture Site Right Radial
[2025-02-25 18:01] LABS: Anion Gap 20 (7-16); Carbon Dioxide 15.1 mMol/L (20.0-31.0)
[2025-02-25 18:07] LABS: B-Type Natriuretic Peptide 58 pg/mL (0-100)
[2025-02-25] MEDS: GLUCAGON INJ 1 MG VIAL SC ×2 (18:08→18:35)
[2025-02-25] MEDS: VANCOMYCIN/WATER 1250 MG IVPB 250 ML 120 MG IV (18:35)
--- NOTE | 2025-02-25 18:36 | ESOP_ITS ---
PROCEDURES: Procedure Date / Time 02/25/25 1836 Procedure Narrative Procedure Narrative: Attending Attestation: I was not present at time of procedure. However, above resident did contact on urgency given patient's rapid deterioration and poor vascular for medication administration. No immediate complications. Minimal blood loss reported. Central Line Placement Right Femoral: Indication(s): poor, or inadequate peripheral venous access Informed consent obtained: obtained from surrogate decision maker Time out done, and the following verified: correct patient, side and site, procedure, patient position and implants and/or equipment Patient placed on monitor/pulse ox: Yes Hand Hygiene: scrub, soap & water and alcohol-based hand rub Max Sterile Barrier Techniques used: cap, mask, sterile gown, sterile gloves and sterile full body drape Central line prep: Povidone-Iodine 1% Local anesthesia used: lidocaine 1% Amount of anesthesia used (mL): 5 Ultrasound used for placement: Yes Sterile Technique if Ultrasound used, including sterile gel: yes Central line lumen inserted: triple Post procedure: sutured in place, good blood return, all ports aspirated, flushed, capped and sterile dressing applied Patient tolerated procedure: well and no complications EBL(ml): 10 Complications: none Procedure comment: Procedure performed under supervision of Dr Wilde. Craig Portillo MD, PGY 3. Disclaimer: This note was dictated by speech recognition. Minor errors in sleep lab technologist may be present due to voice recognition software.
--- NOTE | 2025-02-25 18:40 | PD.RESCONSUL ---
HPI Data of Consult Requesting Physician: Roberto Cody MD Admitting Provider: Cristal Demarco MD Attending Provider: Roberto Cody MD Primary Care Provider: Physician No Primary/Family Consult Narrative Reason for consult: respiratory distress History of present illness: Patient is a 29 years old male with past medical history of cocaine induced cerebral,vasculitis, seizures, anemia, chronic respiratory failure status post tracheostomy, status post PEG tube, nonresponsive with quadriparesis admitted from subacute facility on 02/21/2025 for sepsis 2/2 pneumonia. Patient was recently discharged from inpatient for sepsis secondary to ventilator related pneumonia, cellulitis of the leg, was discharged 3 days prior to current admission. He was started on IV cefepime with significant improvement of his condition. Sputum cultures showed ESBL klebsiella, pseudomonas and proteus. Today he was planned for discharge, switched to PO Augmentin and levofloxacin. [employer] was called today due to tachycardia, tachypnea and diaphoresis. Vitals showed HR in 160-170s and regular, RR 40-45, BP 105/73, oxygen saturation 100% on blow by, fever of 104F. Fingerstick glucose was 40s. Labs showed worsening bicarb 15.1, potassium 5.7, anion gap 20, glucose 181, LA 9.2, otherwise no significant lab changes. VBG showed pCO2 32, pH 7.35. EKG showed sinus tachycardia. CXR showed Significant left upper lobe pneumonia. CTA and CTAP were ordered by primary team. Patient was upgraded to ICU for further management. cc:: cc: Roberto Cody MD Review of Systems Review of Systems ROS Unobtainable: unobtainable due to medical condition Exam Vital Signs Temp Pulse Resp BP Pulse Ox O2 Del Method O2 Flow Rate 97.5 F 186 H 47 H 105/73 100 Blow-by 6 02/25/25 16:00 02/25/25 16:53 02/25/25 16:00 02/25/25 16:53 02/25/25 16:00 02/25/25 16:00 02/25/25 16:00 FiO2 28 02/25/25 12:22 Narrative Exam Gen: Well-developed and well-nourished male with tracheostomy, diaphoretic and is in distress. HEENT: NCAT, PERRLA, EOMI, MMM, anicteric conjunctivae. CVS: normal S1 and S2. Regular tachycardia. No M/R/G. Resp: coarse breathing B/L. No rhonchi, rales, crackles or wheezing. Tachypnea noted. Abd: soft, non-tender, non-distended. BS+ in all 4 quadrants. MSK: Good ROM in BUE & BLE. No edema or rash. Upper and lower extremities are stiff with posturing. Neuro: limited exam due to medical condition. Results Labs 02/25/25 17:15 02/26/25 05:15 Labs: Short CBC 02/25/25 02/25/25 Range/Units 04:07 17:15 WBC 6.9 7.3 (3.8-10.6) Thou/mm3 Hgb 8.1 L 9.9 L D (13.5-16.0) g/dL Hct 26.1 L 32.3 L (41.0-53.0) % Plt Count 238 337 D (140-440) Thou/mm3 BMP 02/25/25 02/25/25 04:07 17:15 Sodium 142 142 Potassium 3.5 D 5.7 H D Chloride 108 H 107 Carbon Dioxide 21.2 15.1 L BUN 10 11 Creatinine 0.5 L 0.8 Glucose 87 181 H D Calcium 9.3 10.6 Cardiac Enzymes 02/25/25 Range/Units 17:15 Troponin I < 0.020 (0.0-0.045) ng/mL Liver Function 02/25/25 02/25/25 Range/Units 04:07 17:15 Total Bilirubin < 0.2 L 0.2 L (0.3-1.2) mg/dL AST 25 35 H (0-34) U/L ALT 50 H 64 H (10-49) U/L Alkaline Phosphatase 115 159 H D (46-116) U/L Albumin 3.0 L 4.0 D (3.5-5.0) gm/dL ABG Interpretation ABG results: 02/21/25 02/25/25 23:11 17:38 ABG pH 7.35 ABG pCO2 32 ABG pO2 39 L* ABG HCO3 18 L ABG O2 Saturation 68 L ABG Base Excess -7 L VBG pH 7.50 VBG pCO2 30 L VBG pO2 66 H VBG Base Excess 1 Quality Measures Quality Measures VTE prophylaxis Medications Home Medications and Allergies Allergies Allergy/AdvReac Type Severity Reaction Status Date / Time No Known Allergies Allergy Unverified 10/23/24 09:16 Visit Medications Hydrocodone Bitart/Acetaminophen (Hydrocodone/Apap 10/325 Tab) 1 tab GT Q4HR PRN PRN Reason: PAIN SCALE 7-10 (Severe Stop: 02/26/25 23:13 Albuterol/Ipratropium (Albuterol/Ipratropium (Duoneb) Rt [place] 3 Ml Nebu) 3 ml INH Q6HRRT RADHA Stop: 03/24/25 12:59 Last Admin: 02/25/25 12:21 Dose: 3 ml Baclofen (Baclofen 10 Mg Tablet) 20 mg GT Q6HR PRN PRN Reason: Spasms Stop: 03/24/25 07:40 Last Admin: 02/23/25 03:12 Dose: 20 mg Gabapentin (Gabapentin 300 Mg Capsule) 300 mg GT TID RADHA Stop: 03/24/25 07:44 Last Admin: 02/25/25 14:18 Dose: 300 mg Heparin Sodium (Porcine) (Heparin Sod Inj 5000 Unit/Ml Vial) 5,000 unit SC BID RADHA Stop: 03/08/25 08:59 Last Admin: 02/25/25 09:51 Dose: 5,000 unit Acetaminophen (Ofirmev Inj) 1,000 mg in 100 mls @ 250 mls/hr IV Q6HR PRN; Protocol PRN Reason: Fever >100.4 or Pain Last Admin: 02/23/25 09:22 Dose: 250 mls/hr Dextrose (D10w 1000 Ml) 1,000 mls @ 50 mls/hr IV .Q20H RADHA Stop: 02/26/25 12:36 Last Admin: 02/25/25 16:48 Dose: 50 mls/hr Cefepime HCl 2 gm/ Sodium (Chloride) 50 mls @ 100 mls/hr IV Q8HR RADHA Stop: 03/04/25 17:35 Last Admin: 02/25/25 18:14 Dose: 100 mls/hr Vancomycin HCl (Vancomycin/Water 1250 Mg Ivpb) 250 mls @ 120 mls/hr IV X1 ONE Stop: 02/25/25 19:39 Last Admin: 02/25/25 18:35 Dose: 120 mls/hr Levetiracetam (Levetiracetam 250 Mg Tablet) 1,000 mg GT BID [facility] Stop: 03/24/25 08:59 Last Admin: 02/25/25 09:40 Dose: 1,000 mg Metoprolol Tartrate (Metoprolol Tartrate 25 Mg Tablet) 100 mg GT BID [facility] Stop: 03/25/25 08:59 Last Admin: 02/25/25 09:59 Dose: Not Given Midodrine (Midodrine 5 Mg Tablet) 5 mg GT TID PRN PRN Reason: Systolic BP <90 Stop: 03/24/25 13:59 Last Admin: 02/23/25 17:50 Dose: 5 mg Morphine Sulfate (Morphine Sulf Liqd 10 Mg/5 Ml Udc) 2 mg GT Q8HR PRN; Protocol PRN Reason: 30 minutes before wound care Stop: 02/28/25 10:05 Last Admin: 02/25/25 15:46 Dose: 2 mg Ondansetron HCl (Ondansetron Inj 2 Mg/Ml Inj 2 Ml) 4 mg IVP Q6H PRN; Protocol PRN Reason: NAUSEA OR VOMITING Stop: 03/23/25 23:13 Oxycodone/Acetaminophen (Oxycodone/Apap 5/325 Tablet) 1 tab GT Q6H PRN PRN Reason: PAIN SCALE 4-6 (Moderate Stop: 02/26/25 23:13 Pantoprazole Sodium (Pantoprazole Inj 40 Mg Vial) 40 mg IVP QDAY [facility] Stop: 03/24/25 08:59 Last Admin: 02/25/25 09:51 Dose: 40 mg Pharmacy Consult (Vancomycin Pharmacy To Dose 1 Each Each) 1 each IV QDAY [facility] Stop: 03/28/25 08:59 Sodium Chloride (Sodium Cl Rt [place] 3% 4 Ml Nebu (Non-Formulary)) 4 ml INH Q6HRRT [facility] Stop: 03/24/25 12:59 Last Admin: 02/25/25 06:47 Dose: 4 ml Discontinued Medications Acetaminophen (Acetaminophen 325 Mg Tablet) 650 mg PO Q6H PRN PRN Reason: PAIN SCALE 1-3 (mild Stop: 03/23/25 23:13 Acetaminophen (Acetaminophen 325 Mg Tablet) 650 mg PO Q6H PRN PRN Reason: Fever >100.4 Stop: 03/23/25 23:13 Hydrocodone Bitart/Acetaminophen (Hydrocodone/Apap 10/325 Tab) 1 tab PO Q4HR PRN PRN Reason: PAIN SCALE 7-10 (Severe Stop: 02/26/25 23:13 Adenosine (Adenosine Inj 3 Mg/Ml Vial) 6 mg IVP X1 ONE Stop: 02/21/25 22:50 Last Admin: 02/21/25 23:18 Dose: 6 mg Adenosine (Adenosine Inj 3 Mg/Ml Vial) 12 mg IVP X1 ONE Stop: 02/21/25 22:50 Last Admin: 02/21/25 23:22 Dose: 12 mg Adenosine (Adenosine Inj 3 Mg/Ml Vial) 12 mg IVP X1 ONE Stop: 02/21/25 23:23 Last Admin: 02/21/25 23:29 Dose: 12 mg Albuterol (Albuterol Rt 2.5 Mg/0.5 Ml Nebu) 5 mg INH X1 ONE Stop: 02/25/25 18:08 Amoxicillin/Clavulanate Potassium (Amoxicillin/Pot Clav 875 Tablet) 1 tab GT BID RADHA Stop: 03/04/25 14:29 Last Admin: 02/25/25 15:22 Dose: 1 tab Dextrose (Dextrose 50%-Water Inj 50 Ml Syringe) 50 ml IVP X1 ONE Stop: 02/22/25 08:15 Last Admin: 02/22/25 08:22 Dose: 50 ml Dextrose (Dextrose 50%-Water Inj 50 Ml Syringe) 50 ml IVP X1 ONE Stop: 02/22/25 11:34 Last Admin: 02/22/25 12:06 Dose: 50 ml Dextrose (Dextrose 50%-Water Inj 50 Ml Syringe) 50 ml IVP X1 ONE Stop: 02/22/25 14:04 Last Admin: 02/22/25 14:11 Dose: 50 ml Dextrose (Dextrose 50%-Water Inj 50 Ml Syringe) 25 ml IVP X1 ONE Stop: 02/22/25 15:52 Last Admin: 02/22/25 16:27 Dose: 25 ml Dextrose (Dextrose 50%-Water Inj 50 Ml Syringe) 25 ml IVP X1 ONE Stop: 02/22/25 17:31 Last Admin: 02/22/25 17:34 Dose: 25 ml Dextrose (Dextrose 50%-Water Inj 50 Ml Syringe) 50 ml IVP X1 ONE Stop: 02/23/25 12:54 Last Admin: 02/23/25 13:15 Dose: 50 ml Dextrose (Dextrose 50%-Water Inj 50 Ml Syringe) 25 ml IV X1 ONE Stop: 02/25/25 06:16 Last Admin: 02/25/25 06:19 Dose: 25 ml Dextrose (Dextrose 50%-Water Inj 50 Ml Syringe) 50 ml IVP X1 ONE Stop: 02/25/25 15:59 Last Admin: 02/25/25 16:00 Dose: 50 ml Dextrose (Dextrose 50%-Water Inj 50 Ml Syringe) 50 ml IVP X1 ONE Stop: 02/25/25 16:37 Last Admin: 02/25/25 16:42 Dose: 50 ml Dextrose (Dextrose 50%-Water Inj 50 Ml Syringe) 50 ml IVP X1 ONE Stop: 02/25/25 17:23 Last Admin: 02/25/25 17:15 Dose: 50 ml Dextrose (Dextrose 50%-Water Inj 50 Ml Syringe) 50 ml IVP X1 ONE Stop: 02/25/25 18:01 Last Admin: 02/25/25 18:10 Dose: Not Given Glucagon (Glucagon Inj 1 Mg Vial) 1 mg SC X1 ONE Stop: 02/25/25 18:01 Last Admin: 02/25/25 18:08 Dose: 1 mg Glucagon (Glucagon Inj 1 Mg Vial) 1 mg SC X1 ONE Stop: 02/25/25 18:30 Last Admin: 02/25/25 18:35 Dose: 1 mg Acetaminophen (Ofirmev Inj) 1,000 mg in 100 mls @ 250 mls/hr IV X1 ONE Stop: 02/21/25 20:31 Last Infusion: 02/21/25 21:07 Dose: Infused Piperacillin/Tazobactam/Dextrose (Zosyn) 3.375 gm in 50 mls @ 100 mls/hr IV X1 ONE Stop: 02/21/25 20:37 Last Infusion: 02/21/25 21:07 Dose: Infused Lactated Ringer's (Lactated Ringers) 1,000 mls @ 999 mls/hr IV .Q1H1M ONE Stop: 02/21/25 21:16 Last Infusion: 02/21/25 21:26 Dose: Infused Lactated Ringer's (Lactated Ringers) 1,000 mls @ 999 mls/hr IV .Q1H1M ONE Stop: 02/21/25 21:37 Last Infusion: 02/21/25 22:29 Dose: Infused Vancomycin/Sodium Chloride (Vancomycin/Ns 1 Gm Ivpb) 200 mls @ 120 mls/hr IV X1 ONE Stop: 02/21/25 22:17 Last Infusion: 02/21/25 22:53 Dose: Infused Lactated Ringer's (Lactated Ringers) 1,000 mls @ 999 mls/hr IV .Q1H1M ONE Stop: 02/21/25 23:29 Last Infusion: 02/22/25 01:07 Dose: Infused Fluconazole (Diflucan/Ns Ivpb) 400 mg in 200 mls @ 100 mls/hr IV X1 ONE Stop: 02/22/25 00:59 Last Infusion: 02/22/25 03:12 Dose: Infused Magnesium Sulfate (Magnesium Sulfate Ivpb) 4 gm in 50 mls @ 12.5 mls/hr IV X1 ONE Stop: 02/22/25 03:01 Last Infusion: 02/22/25 03:12 Dose: Infused Acyclovir Sodium 585 mg/ (Sodium Chloride) 111.7 mls @ 100 mls/hr IV Q8HR RADHA Stop: 02/28/25 23:31 Last Admin: 02/22/25 01:07 Dose: Not Given Lactated Ringer's (Lactated Ringers) 1,000 mls @ 999 mls/hr IV .Q1H1M ONE Stop: 02/22/25 00:39 Last Infusion: 02/22/25 01:07 Dose: Infused Acetaminophen (Ofirmev Inj) 1,000 mg in 100 mls @ 250 mls/hr IV Q6HR RADHA Stop: 02/22/25 12:23 Last Admin: 02/22/25 06:22 Dose: Not Given Acyclovir Sodium 500 mg/ (Sodium Chloride) 110 mls @ 100 mls/hr IV Q8HR RADHA Stop: 03/01/25 05:59 Last Admin: 02/24/25 00:34 Dose: Not Given Acyclovir Sodium 500 mg/ (Sodium Chloride) 110 mls @ 100 mls/hr IV X1 ONE Stop: 02/22/25 03:35 Last Infusion: 02/22/25 04:15 Dose: Infused Ceftriaxone Sodium 2 gm/ (Sodium Chloride) 50 mls @ 100 mls/hr IV Q12HR RADHA Stop: 03/01/25 20:59 Ceftriaxone Sodium 2 gm/ (Sodium Chloride) 50 mls @ 100 mls/hr IV X1 ONE Stop: 02/22/25 05:29 Last Infusion: 02/22/25 05:58 Dose: Infused Vancomycin/Sodium Chloride (Vancomycin/Ns 1 Gm Ivpb) 200 mls @ 120 mls/hr IV X1 ONE Stop: 02/22/25 07:39 Last Infusion: 02/22/25 07:35 Dose: Infused Vancomycin/Sodium Chloride (Vancomycin/Ns 750 Mg Ivpb) 750 mg in 150 mls @ 120 mls/hr IV Q12H RADHA Stop: 03/01/25 21:59 Last Admin: 02/23/25 21:52 Dose: 120 mls/hr Cefepime HCl 2 gm/ Sodium (Chloride) 50 mls @ 100 mls/hr IV Q8HR [facility] Stop: 03/01/25 07:14 Last Admin: 02/25/25 05:11 Dose: 100 mls/hr Dextrose/Sodium Chloride (D5-Ns) 1,000 mls @ 70 mls/hr IV .[id number] [facility] Stop: 02/22/25 21:47 Last Infusion: 02/22/25 16:30 Dose: 100 mls/hr Dextrose (D10w) 500 mls @ 100 mls/hr IV .Q5H [facility] Stop: 03/24/25 17:30 Last Admin: 02/24/25 00:35 Dose: Not Given Dextrose (D10w 1000 Ml) 1,000 mls @ 100 mls/hr IV .Q10H [facility] Stop: 03/24/25 17:30 Last Admin: 02/24/25 00:35 Dose: Not Given Dextrose (D10w 1000 Ml) 1,000 mls @ 150 mls/hr IV .Q6H40M [facility] Stop: 03/25/25 05:29 Last Admin: 02/23/25 07:12 Dose: 150 mls/hr Magnesium Sulfate (Magnesium Sulfate Ivpb) 4 gm in 50 mls @ 12.5 mls/hr IV X1 ONE Stop: 02/23/25 11:15 Last Admin: 02/23/25 08:44 Dose: 12.5 mls/hr Lactated Ringer's (Lactated Ringers) 1,000 mls @ 125 mls/hr IV .Q8H ONE Stop: 02/23/25 15:17 Last Admin: 02/23/25 08:43 Dose: 125 mls/hr Dextrose/Lactated Ringer's (D5-Lr) 1,000 mls @ 125 mls/hr IV .Q8H [facility] Stop: 03/25/25 12:59 Last Admin: 02/24/25 00:38 Dose: 125 mls/hr Magnesium Sulfate (Magnesium Sulfate Ivpb) 2 gm in 50 mls @ 25 mls/hr IV X1 ONE Stop: 02/24/25 09:47 Last Admin: 02/24/25 08:11 Dose: 25 mls/hr Dextrose/Sodium Chloride (D5-Ns) 500 mls @ 75 mls/hr IV .Q6H40M [facility] Stop: 02/25/25 05:39 Dextrose/Sodium Chloride (D5-Ns) 500 mls @ 75 mls/hr IV .Q6H40M [facility] Stop: 02/25/25 06:09 Last Infusion: 02/25/25 06:15 Dose: Infused Magnesium Sulfate (Magnesium Sulfate Ivpb) 4 gm in 50 mls @ 12.5 mls/hr IV X1 ONE Stop: 02/25/25 11:34 Last Admin: 02/25/25 09:51 Dose: 12.5 mls/hr Lactated Ringer's (Lactated Ringers) 500 mls @ 999 mls/hr IV .Q31M ONE Stop: 02/25/25 17:36 Last Admin: 02/25/25 17:15 Dose: 999 mls/hr Lactated Ringer's (Lactated Ringers) 500 mls @ 999 mls/hr IV .Q31M ONE Stop: 02/25/25 17:53 Last Admin: 02/25/25 17:34 Dose: 999 mls/hr Lactated Ringer's (Lactated Ringers) 1,000 mls @ 999 mls/hr IV .Q1H1M ONE Stop: 02/25/25 18:35 Last Admin: 02/25/25 17:55 Dose: 999 mls/hr Ibuprofen (Ibuprofen Susp 100 Mg/5 Ml Udc) 600 mg PO X1 ONE Stop: 02/21/25 20:33 Last Admin: 02/21/25 20:49 Dose: 600 mg Levofloxacin (Levofloxacin 250 Mg Tablet) 750 mg GT X1 ONE Stop: 02/25/25 14:21 Last Admin: 02/25/25 15:21 Dose: 750 mg Metoprolol Tartrate (Metoprolol Tartrate Inj 1 Mg/Ml Amp 5 Ml) 5 mg IVP X1 ONE Stop: 02/21/25 20:09 Last Admin: 02/21/25 20:26 Dose: 5 mg Metoprolol Tartrate (Metoprolol Tartrate 25 Mg Tablet) 100 mg GT BID [facility] Stop: 03/24/25 08:59 Last Admin: 02/22/25 08:40 Dose: Not Given Metoprolol Tartrate (Metoprolol Tartrate 25 Mg Tablet) 50 mg GT BID RADHA Stop: 03/24/25 12:29 Last Admin: 02/22/25 21:17 Dose: 50 mg Metoprolol Tartrate (Metoprolol Tartrate Inj 1 Mg/Ml Amp 5 Ml) 2 mg IVP X1 ONE Stop: 02/25/25 16:47 Last Admin: 02/25/25 16:53 Dose: 2 mg Midazolam HCl (Midazolam Inj 1 Mg/Ml Vial 2 Ml) 9 mg 0.15 mg/kg (9 mg) IVP X1 ONE Stop: 02/25/25 17:22 Last Admin: 02/25/25 17:37 Dose: Not Given Morphine Sulfate (Morphine Sulf Inj 4 Mg/Ml Vial) 2 mg IVP X1 ONE Stop: 02/25/25 16:28 Last Admin: 02/25/25 16:35 Dose: 2 mg Morphine Sulfate (Morphine Sulf Inj 4 Mg/Ml Vial) 2 mg IVP X1 ONE Stop: 02/25/25 16:51 Last Admin: 02/25/25 16:57 Dose: 2 mg Morphine Sulfate (Morphine Sulf Inj 4 Mg/Ml Vial) 2 mg IVP X1 ONE Stop: 02/25/25 17:42 Last Admin: 02/25/25 17:55 Dose: 2 mg Oxycodone/Acetaminophen (Oxycodone/Apap 5/325 Tablet) 1 tab PO Q6H PRN PRN Reason: PAIN SCALE 4-6 (Moderate Stop: 02/26/25 23:13 Pharmacy Consult (Vancomycin Pharmacy To Dose 1 Each Each) 1 each IV QDAY PRN PRN Reason: PROTOCOL Stop: 03/24/25 08:59 Potassium Chloride (Potassium Chloride 10% 20 Meq/15 Ml Udc) 40 meq GT X1 ONE Stop: 02/24/25 07:47 Last Admin: 02/24/25 08:11 Dose: 40 meq Potassium Chloride (Potassium Chloride 10% 20 Meq/15 Ml Udc) 20 meq GT X1 ONE Stop: 02/24/25 07:47 Last Admin: 02/24/25 08:11 Dose: 20 meq Potassium Chloride (Potassium Chloride 10% 20 Meq/15 Ml Udc) 40 meq GT X1 ONE Stop: 02/25/25 07:35 Last Admin: 02/25/25 09:40 Dose: 40 meq Sodium Bicarbonate (Sodium Bicarb Inj 8.4% Syr 50 Ml Syringe) 50 ml IV X1 ONE Stop: 02/21/25 23:50 Last Admin: 02/22/25 00:34 Dose: 50 ml Sodium Chloride (Sodium Chloride Rt 10% 15 Ml Nebu) 5 ml INH X1 ONE Stop: 02/22/25 07:23 Last Admin: 02/22/25 11:23 Dose: Not Given Sodium Chloride (Sodium Cl Rt [place] 3% 4 Ml Nebu (Non-Formulary)) 4 ml INH Q8HRRT RADHA Stop: 03/24/25 07:29 Last Admin: 02/24/25 00:35 Dose: Not Given Assessment & Plan Plan Patient is a 29 years old male with past medical history of cocaine induced cerebral,vasculitis, seizures, anemia, chronic respiratory failure status post tracheostomy, status post PEG tube, nonresponsive with quadriparesis initially admitted from subacute facility on 02/21/2025 for sepsis 2/2 pneumonia. [employer] was called today due to tachycardia, tachypnea and diaphoresis and patient was upgraded to ICU for further management. Neuro: #History of cocaine induced crebral vasculitis. #s/p tracheostomy. #s/p PEG tube. #History of quadriparesis with spastic contractures. #History of seizures. 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 Patient is aware and does respond to commands. Due to this, the patient is status post tracheostomy and status post PEG tube. Patient is reliant on PEG tube feeds. 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 Plan: - Wound care referral ordered. - Registered dietitian referral ordered, Jevity 1.5 goal rate 68 mL/hr. - Oral care as needed. - Keppra 1000 mg twice daily. - Gabapentin 100 mg 3 times daily. - Baclofen 20 mg every 6 hours as needed. #Sedation. - sedated with fentanyl and midazolam RAAS -2. #Agitated state, likely autonomic dysreflexia vs seizure episode. Patient became suddenly tachycardic, tachypneic and agitated. His labs were relatively stable with elevated LA of 9.6. Patient was able to communicate however was noticed to have stiffness. After appropriate sedation patient became hypotensive significantly requiring vasopressors, also his HR dropped below 40 overnight and he was given atropine x 1. Plan: - sedation with midazolam and fentanyl, RAAS -2. - supportive care. Cardiovascular: #Sinus tachycardia. #Episode of bradycardia, resolved. #SVT, resolved. Patient was noted to have heart rate in the 200s in ED. EKG obtained in ED showed SVT. Patient received 3 doses of adenosine in ED and converted to sinus tachycardia, which later improved with 4 L of IV LR and magnesium. Plan: - Continue to monitor via telemetry box. - Keep potassium above 4 and magnesium above 2. - Metoprolol tartrate 100 mg twice daily. - atropine PRN for symptomatic bradycardia. #Hypotension. Likely distributive in setting of autonomic dysreflexia. Plan: - norepinephrine and vasopressin to maintain MAP > 65. Respiratory: #Sepsis 2/2 #Ventilator associated pneumonia vs #Healthcare facility acquired pneumonia. #HAGMA 2/2. #Lactic acidosis. Initial admission: Patient presented from [facility] with temperature of 106 ?F, heart rate of 203, respiratory rate of 62, and WBC of 17.2. Patient was noted to have anion gap of 27 and bicarb of 12.1, likely secondary to lactic acidosis given lactic acid was 16.0 in ED, which decreased to 2.3 after 4 L of LR given in ED. VBG did show mild respiratory alkalosis with pH of 7.5 and pCO2 of 30. The patient has multiple sources of possible infection, given that checks x-ray showed severe bilateral pneumonia, and the patient was recently discharged from [facility] for sepsis with cultures positive from sputum and skin ulcers on popliteal fossa. Urinalysis was negative for suspicion of infection. Patient was recently discharged from [facility] with clindamycin and Zosyn for pneumonia secondary to trach placement and chronic colonization. Will likely need to broaden antibiotics as infection did not seem to be controlled with those 2 antibiotics upon discharge. Ordered RSV, COVID-19 PCR to investigate further sources of infection, resulted negative Blood cultures drawn on 02/21, negative after 24 hours. ICU upgrade: patient was noticed to have significant respiratory distress with RR of 40-45. VBG showed pCO2 32, pH 7.35. CXR showed Significant left upper lobe pneumonia. Plan: - Cefepime 2 mg every 8 hours (02/22--) discontinued. - started on Zosyn IV. - Vancomycin, pharmacy to dose (02/22--). - Chest physiotherapy twice daily ordered. - CTA ordered. - started on MV volume control. Gastrointestinal: #Transaminitis. Patient was noted to have AST of 87 and ALT of 90 on 02/23, which is increased from his baseline. Plan: Continue to monitor. #Abdominal pain. Patient was grimacing on abdominal paipation. Plan: - CTAP ordered. Renal: #JESUS, likely pre-renal, resolving. Patient was noted to have a creatinine of 1.2 in the ED. Baseline is noted to be around 0.6. Given that the patient had significant improvement of lactic acidosis in ED, this is likely prerenal secondary to poor fluid intake/administration. Plan: - Continue to monitor renal panel. - Avoid nephrotoxins. - Renally dose medications. - Hold TETE/ARB/diuretics. #Hyperkalemia. - potassium 5.7. Plan: - kayexilate ordered. - will follow up potassium. #Lactic acidosis. - LA 9.2, unknown reason. Plan: - monitor Q3H. Endocrine: #Hypoglycemia. Patient has episodes of hypoglycemia and has required multiple D50 ampules to maintain blood glucose above 70 throughout hospitalization. Noted to start around 02/22. Per RD, current tube feed of Jevity 1.5 at 68 mL/h would not explain episodes of hypoglycemia. Plan: - continue D10W drip. - D50 ampules as needed for glucose <70. - glucose check Q1H. Infectious Disease: #Ventilator associated pneumonia vs healthcare facility acquired pneumonia. Patient received adequate Abx treatment with significant improvement of his condition and was set for discharge today. Sensitivities confirmed appropriate Abx selection. Plan: - ordered new sputum and blood cultures. - started on Zosyn, continue vancomycin. Hematology/Oncology: #Chronic normocytic anemia. Hgb 9.9, consistent with prior readings. Plan: - monitor with daily labs. Diet: PEG tube feeds. DVT prophylaxis: Heparin. GI prophylaxis: Protonix. Code status: DNR. Disposition: ICU. Plan of care discussed with ICU attending Dr. Wilde. Craig Portillo MD, PGY 3. Disclaimer: This note was dictated by speech recognition. Minor errors in pre sales technical consultant may be present due to voice recognition software. Attending Provider Attestation/Addendum Patient not seen on date of service. I was contacted by the above resident, Craig Portillo MD. I agree with the findings, assessment, and plan of care as documented. Patient with unclear etiology of sudden worsening respiratory status and rapid deterioration of hypotension. Remained in adequate range on pH but requiring increased work of breathing and will be transition back to mechanical ventilation. Fortunately already has a cuffed tracheostomy tube. Patient requiring vasopressor support with adequate sedation achieved and transition to volume control. Lactic acid rapidly declined this evening. Patient's hemodynamics are improving. Will exclude presence of PE given large space ventilation given high minute ventilation and relatively elevated pCO2. Patient undergoing workup for new sepsis etiology in interim as the most likely cause. Rapid clearance of lactate also suspect for potential seizure-like activity and will check CK. I remain available overnight. I did discuss case with daytime and nighttime resident. Will see patient formally tomorrow during rounds with housestaff.
[2025-02-25] MEDS: fentaNYL 2,500 MCG/250 ML BAG 2,500 MCG/250 ML BAG 7.5 MCG IV (19:50)
[2025-02-25] MEDS: fentaNYL CIT INJ 50 mCg/ML AMP 2ML 100 MCG IVP (20:01)
[2025-02-25] MEDS: LEVALBUTEROL RT 0.63 MG/3 ML NEBU INH (20:12)
[2025-02-25] MEDS: Norepinephrine/D5W 8mg/250ml 8 MG/250 ML BAG 5.485 MG IV (20:13)
[2025-02-25 20:23] LABS: Reflex Lactate? Y
[2025-02-25 20:27] LABS: Lactate (Lactic Acid) 1.9 mMol/L (0.4-2.0)
[2025-02-25 20:32] LABS: Base Excess -2 (-3-3); HCO3 22 mEq/L (20-26); Inspired Oxygen, FIO2 40 %; O2 Saturation 101 % (91-98); PCO2 33 mmHg (32.0-48.0); PO2 169 mmHg (83-108); pH, Arterial 7.43 (7.35-7.45)
[2025-02-25 20:33] LABS: Allen Test Not Performed; Puncture Site Right Brachial
[2025-02-25] MEDS: VASOPRESSIN IN NS IVPB 20 UNIT/100 ML BAG 9 UNIT IV (20:38)
--- NOTE | 2025-02-25 20:42 | ESOP_ITS ---
PROCEDURES: Procedure Date / Time 02/25/252041 Procedure Narrative Procedure Narrative: I was not present at the time of procedure. However I was notified on plan of procedure and agreeable given rapid deterioration patient's blood pressure. No immediate complications reported. Arterial Line Indication(s): inability to monitor non-invasive BP Informed consent obtained: procedure done urgently Time out done, and the following verified: correct patient, side and site, procedure, patient position and implants and/or equipment Size (Gauge): 20 Technique used: direct puncture technique Post-Procedure: line sutured into place and dry sterile dressing placed Patient tolerated procedure: well and no complications EBL(ml): 10 Complications: none Site: right and femoral Procedure comment: Procedure performed under supervision of Dr. Wilde. Craig Portillo MD, PGY 3. Disclaimer: This note was dictated by speech recognition. Minor errors in wood carving lathe operator may be present due to voice recognition software.
[2025-02-25] MEDS: MIDAZOLAM INJ 1 MG/ML VIAL 2 ML 9 MG IVP (20:46)
[2025-02-25] MEDS: PIPER/TAZO INJ 4.5 GM in SODIUM CHLORIDE 0.9% (POP) 100 ML IV (21:22)
[2025-02-25] MEDS: guaiFENesin SYRUP 200 MG/10 ML UDC PO (21:23)
[2025-02-25] MEDS: GABAPENTIN 300 MG CAPSULE 400 MG GT (21:24)
[2025-02-25] MEDS: SOD POLYSTYRENE SULFON SUSP 15 GM/60 ML BTL PO (21:27)
[2025-02-25 23:05] LABS: Lactate (Lactic Acid) 0.7 mMol/L (0.4-2.0)
[2025-02-25 23:26] LABS: Creatine Kinase 529 U/L (34-171); Potassium 3.3 mMol/L (3.4-5.1)
[2025-02-26] VITALS (114 sets, daily range): BP systolic 73–256; BP diastolic 33–82; PULSE 35–119; RESP 8–31; TEMP 33.2–37.2; O2SAT 10–100; BMI 17.4
[2025-02-26] MEDS: ATROPINE SULF IV (00:04)
[2025-02-26] MEDS: ALBUTEROL/IPRATROPIUM (Duoneb) RT SOL 3 ML NEBU INH ×4 (00:37→19:26)
[2025-02-26] MEDS: POTASSIUM CHLORIDE 10% 20 MEQ/15 ML UDC 40 MEQ GT (00:44)
[2025-02-26 02:16] LABS: Lactate (Lactic Acid) 0.7 mMol/L (0.4-2.0)
[2025-02-26 04:16] LABS: Base Excess -3 (-3-3); HCO3 21 mEq/L (20-26); Inspired Oxygen, FIO2 30 %; O2 Saturation 100 % (91-98); PCO2 31 mmHg (32.0-48.0); PO2 146 mmHg (83-108); pH, Arterial 7.45 (7.35-7.45)
[2025-02-26 04:17] LABS: Allen Test Not Performed; Puncture Site Arterial Line
[2025-02-26] MEDS: GABAPENTIN 300 MG CAPSULE 400 MG GT (05:33)
[2025-02-26] MEDS: PIPER/TAZO INJ 4.5 GM in SODIUM CHLORIDE 0.9% (POP) 100 ML IV ×3 (05:33→18:17)
[2025-02-26] MEDS: guaiFENesin SYRUP 200 MG/10 ML UDC PO ×4 (05:33→21:43)
[2025-02-26] MEDS: SODIUM CL RT SOL 3% 4 ML NEBU (NON-FORMULARY) INH ×3 (06:17→19:26)
[2025-02-26 06:42] LABS: Alanine Aminotransferase 43 U/L (10-49); Albumin, Serum 3.0 gm/dL (3.5-5.0); Albumin/Globulin Ratio 0.9 (1.2-2.2); Alkaline Phosphatase 112 U/L (46-116); Anion Gap 13 (7-16); Aspartate Amino Transferase 27 U/L (0-34); BUN/Creatinine Ratio 22 Ratio (12-20); Bilirubin,Total 0.3 mg/dL (0.3-1.2); Blood Urea Nitrogen 13 mg/dL (9-23); Calcium 9.5 mg/dL (8.3-10.6); Calcium (Corrected) 10.3 mg/dL (8.5-10.1); Carbon Dioxide 19.1 mMol/L (20.0-31.0); Chloride 108 mMol/L (98-107); Creatinine (Component) 0.6 mg/dL (0.6-1.3); Estimated Creatinine Clearance 151.7 mL/min (>60); Globulin 3.4 gm/dL (2.3-3.5); Glucose 137 mg/dL (74-106); Magnesium 1.8 mg/dL (1.6-2.6); Osmolality,Calculated 281 (275-295); Phosphorous 3.4 mg/dL (2.4-5.1); Potassium 3.6 mMol/L (3.4-5.1); Sodium 140 mMol/L (136-145); Total Protein 6.4 gm/dL (5.7-8.2); eGFR > 60 See Note
[2025-02-26] MEDS: METOPROLOL TARTRATE 25 MG TABLET 100 MG GT ×2 (08:26→21:44)
[2025-02-26] MEDS: HEPARIN SOD INJ 5000 UNIT/ML VIAL SC ×2 (08:27→21:43)
[2025-02-26] MEDS: VANCOMYCIN/NS 1 GM IVPB 200 ML IV ×2 (11:30→21:43)
--- NOTE | 2025-02-26 12:28 | PC.RT ---
CPT not done due to unstable vitals, BP 85/45. RN aware.
--- NOTE | 2025-02-26 14:32 | PC.SS ---
Update: Patient is Trach/PEG. Pressor support has been discontinued. Patient receiving IV antibiotics. CT of chest/abdomen completed. Patient is from sub-acute.
[2025-02-26] MEDS: GABAPENTIN 100 MG, GABAPENTIN 300 MG 400 MG GT ×2 (15:19→21:43)
[2025-02-26] MEDS: SODIUM CHLORIDE 0.9% 250 ML 250 ML 999 ML IV (15:37)
--- NOTE | 2025-02-26 15:43 | PC.NURSE ---
Patient's blood pressure has been MAP of 55-[address] Cabrera made aware. THey do not want to restart levophed gtt until we try other interventions. NICOM machine used, legs elevated and TF started. Per Dr. Cabrera to not start any pressor yet he will order midodrine first.
[2025-02-26] MEDS: MIDODRINE 5 MG TABLET GT (15:48)
--- NOTE | 2025-02-26 15:50 | PC.NURSE ---
Midodrine given via GTube, Per Dr. Cabrera to restart levo if blood pressure still low in 30 min.
--- NOTE | 2025-02-26 17:20 | ESPR_ITS ---
<Statement entered by Craig Portillo MD - 03/01/25 07:37> Senior Resident Attestation: I supervised/discussed management plan with pr internship physician Dr. Lakhani, and was involved in the care of this patient. I personally saw and examined the patient and discussed the assessment and plan with the entire medicine team, including my attending. I agree with the assessment and plan as documented. Patient's care was discussed with attending physician, Dr. Wilde. Craig Portillo MD PGY-3. Documentation for date of: 02/26/25 Subjective Subjective Interval history: Patient is a 29 years old male with past medical history of cocaine induced cerebral vasculitis, seizures, anemia, chronic respiratory failure status post tracheostomy, status post PEG tube, nonresponsive with quadriparesis admitted from subacute facility on 02/21/2025 for sepsis 2/2 pneumonia. Patient was recently discharged from inpatient for sepsis secondary to ventilator related pneumonia and cellulitis of the leg, was discharged 3 days prior to current admission. He was started on IV cefepime with significant improvement of his condition. Sputum cultures showed ESBL klebsiella, pseudomonas and proteus. Today he was planned for discharge, switched to PO Augmentin and levofloxacin. However, FILE DRAWER FINISHER was called today due to tachycardia, tachypnea and diaphoresis. Vitals showed HR in 160-170s and regular, RR 40-45, BP 105/73, oxygen saturation 100% on blow by, fever of 104 F. Fingerstick glucose was 40s. Labs showed worsening bicarb 15.1, potassium 5.7, anion gap 20, glucose 181, LA 9.2, otherwise no significant lab changes. VBG showed pCO2 32, pH 7.35. EKG showed sinus tachycardia. CXR showed significant left upper lobe pneumonia. CTA and CTAP were ordered by primary team. Patient was upgraded to ICU for further management. Interval History 02/26/25: Patient was examined at bedside; he has been extubated and his eyes flutter open in response to voice. Pertinent labs today include ABG pH 7.45, pCO2 31, pCO2 146, HCO3 21, anion gap downtrended to 13 from 20, lactic acid down trended to 0.7 from 9.2, and all other labs within normal limits. 02/26 chest CTA showed bilateral pneumonia that is most prominent in the right upper lobe, mild hilar lymphadenopathy, endotracheal tube tip at 4 cm above nahid, and no findings suggestive for pulmonary artery emboli. 02/26 CTAP showed right base pneumonia with no pericecal inflammatory change. Based on sputum cultures, patient's antibiotic regimen was switched from cefepime to Zosyn. Plan is to continue antibiotics to treat patient's pneumonia and sepsis, and to wean patient off of ventilatory support and sedation before he can be downgraded. Exam Vital Signs Temp Pulse Resp BP Pulse Ox O2 Del Method O2 Flow Rate 97.3 F 92 21 H 75/37 L 100 Mechanical Ventilation 6 02/26/25 16:00 02/26/25 16:00 02/26/25 16:00 02/26/25 16:02/26/25 16:02/26/25 16:02/25/25 19:07 FiO2 30 02/26/25 16:00 Narrative Exam Gen: Well-developed and well-nourished male with tracheostomy, no longer in acute distress. HEENT: NCAT, PERRLA, EOMI, MMM, anicteric conjunctivae. CVS: Normal S1 and S2. Regular tachycardia. No M/R/G. Resp: Tracheostomy tube in place. Coarse breathing B/L. No rhonchi, rales, crackles or wheezing. Abd: Soft, non-tender, non-distended. BS+ in all 4 quadrants. MSK: Good ROM in BUE & BLE. No edema or rash. Upper and lower extremities are stiff with posturing. Neuro: Limited exam due to medical condition. Objective Labs 03/04/25 04:57 03/04/25 04:57 Labs: Laboratory Results - last 24 hr 02/25/25 02/25/25 02/25/25 17:15 17:38 20:09 WBC 7.3 RBC 3.75 L Hgb 9.9 L D Hct 32.3 L MCV 86 MCH 26.4 MCHC 30.7 L RDW Std Deviation 78.3 H Plt Count 337 D Neut % (Auto) 74 Lymph % (Auto) 17 Holt % (Auto) 7 Eos % (Auto) 1 Baso % (Auto) 0 Neut # (Auto) 5.4 Lymph # (Auto) 1.2 Holt # (Auto) 0.5 Eos # (Auto) 0.1 Baso # (Auto) 0.0 Immature Gran # (Auto) 0.02 H Absolute Nucleated RBC 0.00 Immature Gran % 0 Nucleated RBC % 0 Puncture Site Right Radial ABG pH 7.35 ABG pCO2 32 ABG pO2 39 L* ABG HCO3 18 L ABG O2 Saturation 68 L ABG Base Excess -7 L FiO2 28 Sodium 142 Potassium 5.7 H D Chloride 107 Carbon Dioxide 15.1 L Anion Gap 20 H BUN 11 Creatinine 0.8 Estim Creat Clear Calc 113.8 eGFR > 60 BUN/Creatinine Ratio 14 Glucose 181 H D Calculated Osmolality 287 Lactic Acid 9.2 H* 1.9 Calcium 10.6 Corrected Calcium 10.6 H Phosphorus Magnesium Total Bilirubin 0.2 L AST 35 H ALT 64 H Alkaline Phosphatase 159 H D Total Creatine Kinase Troponin I < 0.020 B-Natriuretic Peptide 58 Total Protein 8.6 H Albumin 4.0 D Globulin 4.6 H Albumin/Globulin Ratio 0.9 L 02/25/25 02/25/25 02/26/25 20:17 22:55 01:57 WBC RBC Hgb Hct MCV MCH MCHC RDW Std Deviation Plt Count Neut % (Auto) Lymph % (Auto) Holt % (Auto) Eos % (Auto) Baso % (Auto) Neut # (Auto) Lymph # (Auto) Holt # (Auto) Eos # (Auto) Baso # (Auto) Immature Gran # (Auto) Absolute Nucleated RBC Immature Gran % Nucleated RBC % Puncture Site Right Brachial ABG pH 7.43 ABG pCO2 33 ABG pO2 169 H D ABG HCO3 22 ABG O2 Saturation 101 H ABG Base Excess -2 FiO2 40 Sodium Potassium 3.3 L D Chloride Carbon Dioxide Anion Gap BUN Creatinine Estim Creat Clear Calc eGFR BUN/Creatinine Ratio Glucose Calculated Osmolality Lactic Acid 0.7 0.7 Calcium Corrected Calcium Phosphorus Magnesium Total Bilirubin AST ALT Alkaline Phosphatase Total Creatine Kinase 529 H Troponin I B-Natriuretic Peptide Total Protein Albumin Globulin Albumin/Globulin Ratio 02/26/25 02/26/25 04:07 05:15 WBC RBC Hgb Hct MCV MCH MCHC RDW Std Deviation Plt Count Neut % (Auto) Lymph % (Auto) Holt % (Auto) Eos % (Auto) Baso % (Auto) Neut # (Auto) Lymph # (Auto) Holt # (Auto) Eos # (Auto) Baso # (Auto) Immature Gran # (Auto) Absolute Nucleated RBC Immature Gran % Nucleated RBC % Puncture Site Arterial Line ABG pH 7.45 ABG pCO2 31 L ABG pO2 146 H D ABG HCO3 21 ABG O2 Saturation 100 H ABG Base Excess -3 FiO2 30 Sodium 140 Potassium 3.6 Chloride 108 H Carbon Dioxide 19.1 L Anion Gap 13 BUN 13 Creatinine 0.6 Estim Creat Clear Calc 151.7 eGFR > 60 BUN/Creatinine Ratio 22 H Glucose 137 H Calculated Osmolality 281 Lactic Acid Calcium 9.5 Corrected Calcium 10.3 H Phosphorus 3.4 Magnesium 1.8 Total Bilirubin 0.3 AST 27 ALT 43 Alkaline Phosphatase 112 D Total Creatine Kinase Troponin I B-Natriuretic Peptide Total Protein 6.4 Albumin 3.0 L D Globulin 3.4 Albumin/Globulin Ratio 0.9 L ABG Interpretation ABG results: 02/21/25 02/25/25 02/25/25 23:11 17:38 20:17 ABG pH 7.35 7.43 ABG pCO2 32 33 ABG pO2 39 L* 169 H D ABG HCO3 18 L 22 ABG O2 Saturation 68 L 101 H ABG Base Excess -7 L -2 VBG pH 7.50 VBG pCO2 30 L VBG pO2 66 H VBG Base Excess 1 02/26/25 04:07 ABG pH 7.45 ABG pCO2 31 L ABG pO2 146 H D ABG HCO3 21 ABG O2 Saturation 100 H ABG Base Excess -3 VBG pH VBG pCO2 VBG pO2 VBG Base Excess Quality Measures Quality Measures VTE prophylaxis Assessment & Plan Assessment Current Active Medications: Generic Name Dose Route Start Last Admin Trade Name Freq PRN Reason Stop Dose Admin Hydrocodone Bitart/Acetaminophen 1 tab 02/22/25 07:08 Hydrocodone/Apap 10/325 Tab GT 02/26/25 23:13 Q4HR PRN PAIN SCALE 7-10 (Severe Albuterol/Ipratropium 3 ml 02/22/25 13:00 02/26/25 12:22 Albuterol/Ipratropium (Duoneb) Rt [place] 3 Ml Nebu INH 03/24/25 12:59 3 ml Q6HRRT RADHA Administration Atropine Sulfate 0.5 mg 02/26/25 03:32 Atropine Sulf Inj 1 Mg/Ml Vial IVP Q3MIN PRN heart rate <45 Baclofen 20 mg 02/22/25 07:41 02/23/25 03:12 Baclofen 10 Mg Tablet GT 03/24/25 07:40 20 mg Q6HR PRN Administration Spasms Gabapentin 100 mg/ Gabapentin 400 mg 02/26/25 15:00 02/26/25 15:19 300 mg GT 03/27/25 21:59 400 mg TID RADHA Administration Guaifenesin 200 mg 02/25/25 21:00 02/26/25 11:31 Guaifenesin Syrup 200 Mg/10 Ml Udc PO 03/27/25 20:59 200 mg QID RADHA Administration Protocol Heparin Sodium (Porcine) 5,000 unit 02/22/25 09:00 02/26/25 08:27 Heparin Sod Inj 5000 Unit/Ml Vial SC 03/08/25 08:59 5,000 unit BID RADHA Administration Acetaminophen 1,000 mg in 100 mls @ 250 mls/hr 02/22/25 07:07 02/23/25 09:22 Ofirmev Inj IV 250 mls/hr Q6HR PRN Administration Fever >100.4 or Pain Protocol Piperacillin Sod/Tazobactam 100 mls @ 200 mls/hr 02/25/25 18:44 02/26/25 11:31 Sod 4.5 gm/ Sodium Chloride IV 03/04/25 18:43 200 mls/hr Q6HR RADHA Administration Fentanyl Citrate 2,500 mcg in 250 mls @ 2.5 mls/hr 02/25/25 19:18 02/26/25 01:00 Sublimaze Inj 2,500 Mcg/250 Ml Bag IV 03/02/25 19:17 0 mcg/hr .Q24H PRN 0 mls/hr PER PROTOCOL Titration Protocol 25 MCG/HR Midazolam HCl 100 mg in 100 mls @ 1 mls/hr 02/25/25 20:07 Versed Pf Inj In Ns Premix IV 03/02/25 20:06 .Q24H PRN PER PROTOCOL Protocol 1 MG/HR Vasopressin/Sodium Chloride 20 unit in 100 mls @ 9 mls/hr 02/25/25 20:41 02/26/25 06:00 Vasostrict/Ns Ivpb IV 03/27/25 20:40 0 unit/min .Q11H7M PRN 0 mls/hr PER PROTOCOL Titration Protocol 0.03 UNIT/MIN Norepinephrine/Dextrose 8 mg in 250 mls @ 5.485 mls/hr 02/25/25 20:48 02/26/25 16:24 Levophed In D5w 8mg/250ml IV 03/27/25 20:47 0.05 mcg/kg/min .Q24H PRN 5.485 mls/hr PER PROTOCOL Titration Protocol 0.05 MCG/KG/MIN Vancomycin/Sodium Chloride 200 mls @ 120 mls/hr 02/26/25 10:00 02/26/25 11:30 Vancomycin/Ns 1 Gm Ivpb IV 03/05/25 09:59 120 mls/hr BID@1000,2200 RADHA Administration Protocol Levetiracetam 1,000 mg 02/22/25 09:00 02/26/25 08:27 Levetiracetam 250 Mg Tablet GT 03/24/25 08:59 1,000 mg BID RADHA Administration Metoprolol Tartrate 100 mg 02/23/25 09:00 02/26/25 08:26 Metoprolol Tartrate 25 Mg Tablet GT 03/25/25 08:59 100 mg BID RADHA Administration Midodrine 5 mg 02/22/25 10:57 02/26/25 15:48 Midodrine 5 Mg Tablet GT 03/24/25 13:59 5 mg TID PRN Administration Systolic BP <90 Morphine Sulfate 2 mg 02/23/25 10:06 02/25/25 15:46 Morphine Sulf Liqd 10 Mg/5 Ml Udc GT 02/28/25 10:05 2 mg Q8HR PRN Administration 30 minutes before wound care Protocol Ondansetron HCl 4 mg 02/21/25 23:14 Ondansetron Inj 2 Mg/Ml Inj 2 Ml IVP 03/23/25 23:13 Q6H PRN NAUSEA OR VOMITING Protocol Oxycodone/Acetaminophen 1 tab 02/22/25 07:08 Oxycodone/Apap 5/325 Tablet GT 02/26/25 23:13 Q6H PRN PAIN SCALE 4-6 (Moderate Pantoprazole Sodium 40 mg 02/22/25 09:00 02/26/25 08:26 Pantoprazole Inj 40 Mg Vial IVP 03/24/25 08:59 40 mg QDAY RADHA Administration Pharmacy Consult 1 each 02/26/25 09:00 02/26/25 08:09 Vancomycin Pharmacy To Dose 1 Each Each IV 03/28/25 08:59 Not Given QDAY RADHA Sodium Chloride 4 ml 02/22/25 13:00 02/26/25 13:01 Sodium Cl Rt [place] 3% 4 Ml Nebu (Non-Formulary) INH 03/24/25 12:59 4 ml Q6HRRT RADHA Administration Sodium Chloride 3 ml 02/25/25 18:51 Sodium Chloride Rt [place] 0.9% 3 Ml Nebu INH 03/27/25 18:50 PRN PRN SOLN Plan Patient is a 29 years old male with past medical history of cocaine-induced cerebral vasculitis, seizures, anemia, chronic respiratory failure status post tracheostomy, status post PEG tube, and nonresponsive status with quadriparesis who was initially admitted from subacute facility on 02/21/2025 for sepsis 2/2 pneumonia. FILE DRAWER FINISHER was called today due to tachycardia, tachypnea and diaphoresis and patient was upgraded to ICU for further management. Patient was examined at bedside; he has been extubated and his eyes flutter open in response to voice. Pertinent labs today include ABG pH 7.45, pCO2 31, pCO2 146, HCO3 21, anion gap downtrended to 13 from 20, lactic acid down trended to 0.7 from 9.2, and all other labs within normal limits. 02/26 chest CTA showed bilateral pneumonia that is most prominent in the right upper lobe, mild hilar lymphadenopathy, endotracheal tube tip at 4 cm above nahid, and no findings suggestive for pulmonary artery emboli. 02/26 CTAP showed right base pneumonia with no pericecal inflammatory change. Based on sputum cultures, patient's antibiotic regimen was switched from cefepime to Zosyn. Plan is to continue antibiotics to treat patient's pneumonia and sepsis, and to wean patient off of ventilatory support and sedation before he can be downgraded. Neuro: #History of cocaine-induced cerebral vasculitis. #s/p tracheostomy. #s/p PEG tube. #History of quadriparesis with spastic contractures. #History of seizures. 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 Patient is aware and does respond to commands. Due to this, the patient is status post tracheostomy and status post PEG tube. Patient is reliant on PEG tube feeds. Patient is also noted to have a history of quadriparesis with spastic contractures and seizures as result of his cocaine induced vasculitis. Plan: - Wound care referral ordered. - Registered dietitian referral ordered, Jevity 1.5 goal rate 68 mL/hr. - Oral care as needed. - Keppra 1000 mg twice daily. - Gabapentin 100 mg 3 times daily. - Baclofen 20 mg every 6 hours as needed. #Sedation (stopped) Patient has been weaned off of sedatives since 06:00 on 02/26 #Agitated state, likely autonomic dysreflexia vs seizure episode (resolved) Patient became suddenly tachycardic, tachypneic and agitated. His labs were relatively stable with elevated LA of 9.6. Patient was able to communicate however was noticed to have stiffness. After appropriate sedation patient became hypotensive significantly requiring vasopressors, also his HR dropped below 40 overnight and he was given atropine x 1 Now resolved on 02/26 Cardiovascular: #Sinus tachycardia. #Episode of bradycardia (resolved) #SVT (resolved) Patient was noted to have heart rate in the 200s in ED. EKG obtained in ED showed SVT. Patient received 3 doses of adenosine in ED and converted to sinus tachycardia, which later improved with 4 L of IV LR and magnesium. Plan: - Continue to monitor via telemetry box. - Keep potassium above 4 and magnesium above 2. - Metoprolol tartrate 100 mg twice daily. - Atropine PRN for symptomatic bradycardia. #Hypotension (improving) Likely distributive in setting of autonomic dysreflexia. Plan: - Norepinephrine and vasopressin to maintain MAP > 65, wean as tolerated Respiratory: #Sepsis 2/2 #Ventilator associated pneumonia vs #Healthcare facility acquired pneumonia. #HAGMA 2/2. #Lactic acidosis. Initial admission: Patient presented from [facility] with temperature of 106 ?F, heart rate of 203, respiratory rate of 62, and WBC of 17.2. Patient was noted to have anion gap of 27 and bicarb of 12.1, likely secondary to lactic acidosis given lactic acid was 16.0 in ED, which decreased to 2.3 after 4 L of LR given in ED. VBG did show mild respiratory alkalosis with pH of 7.5 and pCO2 of 30. The patient has multiple sources of possible infection, given that checks x-ray showed severe bilateral pneumonia, and the patient was recently discharged from [facility] for sepsis with cultures positive from sputum and skin ulcers on popliteal fossa. Urinalysis was negative for suspicion of infection. Patient was recently discharged from [facility] with clindamycin and Zosyn for pneumonia secondary to trach placement and chronic colonization. Will likely need to broaden antibiotics as infection did not seem to be controlled with those 2 antibiotics upon discharge. Ordered RSV, COVID-19 PCR to investigate further sources of infection, resulted negative Blood cultures drawn on 02/21, negative after 24 hours. ICU upgrade: patient was noticed to have significant respiratory distress with RR of 40-45. VBG showed pCO2 32, pH 7.35. CXR showed Significant left upper lobe pneumonia. 02/26 chest CTA showed bilateral pneumonia that is most prominent in the right upper lobe, mild hilar lymphadenopathy, endotracheal tube tip at 4 cm above nahid, and no findings suggestive for pulmonary artery emboli. Plan: - Cefepime 2 mg every 8 hours (02/22--02/25) discontinued. - Based on sputum cultures, started IV Zosyn 4.5 gm q6HR (02/25--) - Vancomycin, pharmacy to dose (02/22--). - Chest physiotherapy twice daily ordered. - Started on MV volume control (patient has tracheostomy tube), will wean as tolerated Gastrointestinal: #Transaminitis (resolved) Patient was initially noted to have AST of 87 and ALT of 90 on 02/23, which is increased from his baseline. Likely 2/2 sepsis-induced systemic dysfunction AST and ALT have downtrended as of 02/26 Plan: Continue to monitor. #Abdominal pain (resolved) Patient was grimacing on abdominal palpation. 02/26 CTAP showed right base pneumonia with no pericecal inflammatory change. Plan: Continue to monitor Renal: #JESUS, likely pre-renal (resolved) Patient was noted to have a creatinine of 1.2 in the ED. Baseline is noted to be around 0.6. Given that the patient had significant improvement of lactic acidosis in ED, this is likely prerenal secondary to poor fluid intake/administration. Patient has returned to his baseline creatinine of 0.6 since 02/26 Plan: - Continue to monitor renal panel. #Hyperkalemia (resolved) Admission potassium 5.7. Potassium is now back WNL s/p temporizing measures (kayexalate given on 02/26) Judi: -Continue to monitor #Lactic acidosis (resolved) Admission LA 9.2, has now down-trended to 0.7 by 02/26 Endocrine: #Hypoglycemia Patient has episodes of hypoglycemia and has required multiple D50 ampules to maintain blood glucose above 70 throughout hospitalization. Noted to start around 02/22. Plan: - Discontinued D10W drip. - Started on tube feeds - D50 ampules as needed for glucose <70. - Glucose check Q2H. Infectious Disease: #Ventilator associated pneumonia vs healthcare facility acquired pneumonia. Patient received adequate Abx treatment with significant improvement of his condition and was set for discharge today. Sensitivities confirmed appropriate Abx selection Plan: - ordered new sputum and blood cultures. - started on IV Zosyn and continuing vancomycin. Hematology/Oncology: #Chronic normocytic anemia. Hgb 9.9, consistent with prior readings. Plan: - monitor with daily labs. Diet: PEG tube feeds. DVT prophylaxis: Heparin. GI prophylaxis: Protonix. Code status: DNR. Disposition: ICU due to requiring ventilatory support Plan of care discussed with ICU attending Dr. Wilde. John Lakhani DO Internal Medicine, PGY-1 Attending Provider Attestation/Addendum Patient seen and examined with the above resident, John Lakhani DO. I agree with the findings, assessment, and plan of care as documented except for any differences below. Patient with ongoing fever, primary source of HCAP/ VAP given chronic trach. Imaging to exclude PE done and images show basilar infiltrate/s mucus plugging. Chest physiotherapy ongoing. Antibiotics adjusted base don prior culture, repeat testing now. May warrant double coverage though literature has limited support for this. However we do not have higher caliber antibiotics routinely available. Suppression of what cervantes snow colonized the airway would be reasonable as well. Other etiologies to be excluded as well if fever persists including spinal abscess or meningitis, negative bacteremia thus far and endocarditis less likely. Langston was exchanges as well as possible source, await culture data for antibiotic narrowing if able; ultimately limited by respiratory pathogens. [employer] infection could be precipitating seizures, on Keppra and no witnessed episodes though such a high sudden lactate and rapid clearance could suggest this. Well resuscitated now and wean off pressors. Stable compliance on mechanical ventilation now, SBT done and try to transition back to TC. Femoral venous access in place, will remove as able. No famly at bedside today. Residents able to reach family by phone. Total critical care time: I personally spent 55 minutes for review of physiologic parameters, directing plan of care, and coordination of care with other subspecialities. This is exclusive of time spent teaching housestaff or performing any separate billable procedures. Patient remains at significant risk for further morbidity and mortality warranting close monitoring and care only available in the ICU. Critical care services required for healthcare associated pneumonia/ ventilator associated pneumonia, acute on chronic hypoxic/ hypercapnic respiratory failure, lactic acidosis, seizures, acute renal failure.
--- NOTE | 2025-02-26 18:13 | XR_ITS ---
Examination: CTA chest with intravenous contrast 2-D reconstructions 3-D reconstructions, vascular Date and time of exam: February 26, 2025, 1412 hours INDICATIONS: Shortness of breath chest pain and tachycardia tachypnea today CTDI: vol (mGy) 11.6 DLP: (mGycm) 357 Technique: Multiple axial sections of the thorax have been obtained. 3 mm slice thickness, from below the hemidiaphragms to above the apices of the lungs. Mediastinal and lung density settings have been obtained. 2-D sagittal and coronal reconstructions. 3-D angiographic renderings, 3-D volume renderings, 3D post processing, vascular maximum intensity projections obtained. Contrast administered is 100 cc Isovue-370. Low dose protocols were performed. One or more of the following dose reduction techniques were used; automated exposure control, adjustment of the mA and/or KV according to patient size, use of iterative reconstruction technique. Findings: Endotracheal tube tip 4 cm above nahid No thoracic aortic aneurysm dilatation or dissection Pulmonary artery segments are not enlarged. No pulmonary artery emboli Mild hilar lymphadenopathy Soft areas of opacity in both lungs consistent with pneumonia, more prominent in the right upper lobe No pulmonary edema or pleural disease No visualized liver or splenic lesions No hydronephrosis IMPRESSION: Endotracheal tube tip 4 cm above nahid Bilateral pneumonia, most prominent in the right upper lobe Mild hilar lymphadenopathy Negative for pulmonary artery emboli
--- NOTE | 2025-02-26 18:14 | XR_ITS ---
Examination: CT abdomen and pelvis without contrast. Coronal 3-D reconstructions. Sagittal 2-D reconstructions. Date and time of exam:February 26, 2025, 1409 hours, INDICATIONS: Sepsis, unknown source CTDI: vol (mGy): 9.61) DLP: (mGycm): 618 Technique: Axial images of the abdomen have been obtained, 3 mm slice thickness Intravenous contrast material has not been administered. Low dose protocols were performed. One or more of the following dose reduction techniques were used; automated exposure control, adjustment of the mA and/or KV according to patient size, use of iterative reconstruction technique. Findings: Right base pneumonia Gastrostomy tube satisfactory position No focal liver or splenic lesions Small gallstones No pancreatic mass No renal or ureteral calculi Aorta normal size No bowel obstruction No diverticulitis Urinary Langston catheter. No prostatomegaly IMPRESSION: Right base pneumonia No pericecal inflammatory change Right common femoral central line tip IVC
[2025-02-27] VITALS (72 sets, daily range): BP systolic 0–153; BP diastolic 0–103; PULSE 80–153; RESP 13–55; TEMP 35.6–38.8; O2SAT 93–100; BMI 18.0
[2025-02-27] MEDS: PIPER/TAZO INJ 4.5 GM in SODIUM CHLORIDE 0.9% (POP) 100 ML IV ×3 (00:45→12:14)
[2025-02-27] MEDS: ALBUTEROL/IPRATROPIUM (Duoneb) RT SOL 3 ML NEBU INH ×3 (00:51→12:12)
[2025-02-27] MEDS: SODIUM CL RT SOL 3% 4 ML NEBU (NON-FORMULARY) INH (00:52)
[2025-02-27] MEDS: guaiFENesin SYRUP 200 MG/10 ML UDC PO ×4 (05:32→22:30)
[2025-02-27] MEDS: GABAPENTIN 100 MG, GABAPENTIN 300 MG 400 MG GT ×3 (05:33→22:30)
[2025-02-27 05:59] LABS: Basophils # (Auto) 0.0 Thou/mm3 (0.0-0.2); Basophils % (Auto) 0 % (0-2.5); Eosinophils # (Auto) 0.1 Thou/mm3 (0.0-0.5); Eosinophils % (Auto) 2 % (0-10); Hematocrit 24.4 % (41.0-53.0); Immature Granulocytes Auto 0.02 Thou/mm3 (0.00-0.00); Lymphocytes # (Auto) 1.2 Thou/mm3 (1.0-4.8); Lymphocytes % (Auto) 19 % (10-50); Mean Corpuscular HGB Conc 32.0 g/dl (31.0-37.0); Mean Corpuscular Hemoglobin 27.6 pg (25.0-35.0); Mean Corpuscular Volume 86 fL (80-100); Monocytes # (Auto) 0.6 Thou/mm3 (0.0-0.8); Monocytes % (Auto) 10 % (0-12); Neutrophils # (Auto) 4.6 Thou/mm3 (1.8-7.7); Neutrophils % (Auto) 70 % (37-80); Nucleated Red Blood Cell # 0.00 Thou/mm3 (0.00-0.00); Nucleated Red Blood Cell % 0 /100 WBC (0); Platelet Count 234 Thou/mm3 (140-440); RDW Standard Deviation 77.0 fL (35.1-43.9); Red Blood Count 2.83 Miln/mm3 (4.50-5.90); White Blood Count 6.6 Thou/mm3 (3.8-10.6)
[2025-02-27 06:13] LABS: Hemoglobin 7.8 g/dL (13.5-16.0)
[2025-02-27 06:47] LABS: Alanine Aminotransferase 37 U/L (10-49); Albumin, Serum 3.2 gm/dL (3.5-5.0); Albumin/Globulin Ratio 0.9 (1.2-2.2); Alkaline Phosphatase 112 U/L (46-116); Anion Gap 12 (7-16); Aspartate Amino Transferase 22 U/L (0-34); BUN/Creatinine Ratio 11 Ratio (12-20); Bilirubin,Total 0.2 mg/dL (0.3-1.2); Blood Urea Nitrogen 8 mg/dL (9-23); Calcium 9.3 mg/dL (8.3-10.6); Calcium (Corrected) 9.9 mg/dL (8.5-10.1); Carbon Dioxide 22.3 mMol/L (20.0-31.0); Chloride 107 mMol/L (98-107); Creatinine (Component) 0.7 mg/dL (0.6-1.3); Estimated Creatinine Clearance 130.0 mL/min (>60); Globulin 3.4 gm/dL (2.3-3.5); Glucose 80 mg/dL (74-106); Magnesium 1.4 mg/dL (1.6-2.6); Osmolality,Calculated 278 (275-295); Phosphorous 4.0 mg/dL (2.4-5.1); Potassium 3.8 mMol/L (3.4-5.1); Sodium 141 mMol/L (136-145); Total Protein 6.6 gm/dL (5.7-8.2); eGFR > 60 See Note
--- NOTE | 2025-02-27 06:47 | ESPR_ITS ---
Documentation for date of: 02/27/25 Subjective Subjective Interval history: Patient is a 29 years old male with past medical history of cocaine induced cerebral vasculitis, seizures, anemia, chronic respiratory failure status post tracheostomy, status post PEG tube, nonresponsive with quadriparesis admitted from subacute facility on 02/21/2025 for sepsis 2/2 pneumonia. Patient was recently discharged from inpatient for sepsis secondary to ventilator related pneumonia and cellulitis of the leg, was discharged 3 days prior to current admission. He was started on IV cefepime with significant improvement of his condition. Sputum cultures showed ESBL klebsiella, pseudomonas and proteus. Today he was planned for discharge, switched to PO Augmentin and levofloxacin. However, [facility] was called today due to tachycardia, tachypnea and diaphoresis. Vitals showed HR in 160-170s and regular, RR 40-45, BP 105/73, oxygen saturation 100% on blow by, fever of 104 F. Fingerstick glucose was 40s. Labs showed worsening bicarb 15.1, potassium 5.7, anion gap 20, glucose 181, LA 9.2, otherwise no significant lab changes. VBG showed pCO2 32, pH 7.35. EKG showed sinus tachycardia. CXR showed significant left upper lobe pneumonia. CTA and CTAP were ordered by primary team. Patient was upgraded to ICU for further management. Interval History 02/26/25: Patient was examined at bedside; he has a tracheostomy tube in place and his eyes flutter open in response to voice. Pertinent labs today include ABG pH 7.45, pCO2 31, pCO2 146, HCO3 21, anion gap downtrended to 13 from 20, lactic acid down trended to 0.7 from 9.2, and all other labs within normal limits. 02/26 chest CTA showed bilateral pneumonia that is most prominent in the right upper lobe, mild hilar lymphadenopathy, endotracheal tube tip at 4 cm above nahid, and no findings suggestive for pulmonary artery emboli. 02/26 CTAP showed right base pneumonia with no pericecal inflammatory change. Based on sputum cultures, patient's antibiotic regimen was switched from cefepime to Zosyn. Plan is to continue antibiotics to treat patient's pneumonia and sepsis, and to wean patient off of ventilatory support and sedation before he can be downgraded. 02/27/25: Patient was examined at bedside; he was awake and seems responsive to voice and aware of this senior technical writer's presence. Pertinent labs today include Hgb drop to 7.8 from 9.9 (MCV 86, RDW 77.0, likely hemodilution) and magnesium 1.4. 02/27 CXR shows satisfactory positioning of the tip of the left subclavian central line that was placed today (consent obtained via telephone call from patient's mother, Sara Carmona). Patient's sudden spike in lactic acid levels to 9.2 on 02/25 with rapid return to baseline is suspicious for seizure-like activity; an EEG has been ordered as a result. Patient has also recently been spiking a fever (101.4 today) despite prompt treatment of his ventilator-associated pneumonia or hospital-acquired pneumonia with IV Zosyn and IV vancomycin. Apparently, he has recurrent history of this. His current antibiotic regimen has been switched to IV meropenem and orders for a spinal MRI and possible lumbar tap have been placed to search for possible overlooked nidus for infection (i.e. spinal epidual abscess, meningitis). Patient has stopped being chemically sedated since 06:00 yesterday and has been off of pressors since 5 AM today. Plan to continue IV meropenem for patient's pneumonia and wean him off of ventilatory support before he is stabilized enough to be down-graded. Exam Vital Signs Temp Pulse Resp BP Pulse Ox O2 Del Method O2 Flow Rate 98.8 F 106 H 32 H 144/93 H 99 Mechanical Ventilation 8 02/27/25 00:00 02/27/25 03:00 02/27/25 03:00 02/27/25 03:00 02/27/25 03:00 02/26/25 16:00 02/27/25 00:51 FiO2 30 02/27/25 00:51 Narrative Exam Gen: Awake and responsive to voice. Seems somewhat distressed. Diaphoretic. W ell-developed and well-nourished male with tracheostomy. HEENT: NCAT, PERRLA, EOMI, MMM, anicteric conjunctivae. CVS: Tachycardic. Regular rhythm. Normal S1 and S2. No M/R/G. Resp: Tracheostomy tube in place. Tachypneic. Coarse breathing B/L. No rhonchi, rales, crackles or wheezing. Abd: Soft, non-tender, non-distended. BS+ in all 4 quadrants. MSK: Good ROM in BUE & BLE. No edema or rash. Upper and lower extremities are stiff with posturing. Neuro: Limited exam due to medical condition. Objective Labs 02/27/25 04:50 02/27/25 04:50 Labs: Laboratory Results - last 24 hr 02/26/25 02/27/25 05:15 04:50 WBC 6.6 RBC 2.83 L Hgb 7.8 L D Hct 24.4 L MCV 86 MCH 27.6 MCHC 32.0 RDW Std Deviation 77.0 H Plt Count 234 D Neut % (Auto) 70 Lymph % (Auto) 19 Thomas % (Auto) 10 Eos % (Auto) 2 Baso % (Auto) 0 Neut # (Auto) 4.6 Lymph # (Auto) 1.2 Thomas # (Auto) 0.6 Eos # (Auto) 0.1 Baso # (Auto) 0.0 Immature Gran # (Auto) 0.02 H Absolute Nucleated RBC 0.00 Immature Gran % 0 Nucleated RBC % 0 Sodium 140 Potassium 3.6 Chloride 108 H Carbon Dioxide 19.1 L Anion Gap 13 BUN 13 Creatinine 0.6 Estim Creat Clear Calc 151.7 eGFR > 60 BUN/Creatinine Ratio 22 H Glucose 137 H Calculated Osmolality 281 Calcium 9.5 Corrected Calcium 10.3 H Phosphorus 3.4 Magnesium 1.8 Total Bilirubin 0.3 AST 27 ALT 43 Alkaline Phosphatase 112 D Total Protein 6.4 Albumin 3.0 L D Globulin 3.4 Albumin/Globulin Ratio 0.9 L ABG Interpretation ABG results: 02/21/25 02/25/25 02/25/25 23:11 17:38 20:17 ABG pH 7.35 7.43 ABG pCO2 32 33 ABG pO2 39 L* 169 H D ABG HCO3 18 L 22 ABG O2 Saturation 68 L 101 H ABG Base Excess -7 L -2 VBG pH 7.50 VBG pCO2 30 L VBG pO2 66 H VBG Base Excess 1 02/26/25 04:07 ABG pH 7.45 ABG pCO2 31 L ABG pO2 146 H D ABG HCO3 21 ABG O2 Saturation 100 H ABG Base Excess -3 VBG pH VBG pCO2 VBG pO2 VBG Base Excess Quality Measures Quality Measures VTE prophylaxis Assessment & Plan Assessment Current Active Medications: Generic Name Dose Route Start Last Admin Trade Name Freq PRN Reason Stop Dose Admin Albuterol/Ipratropium 3 ml 02/22/25 13:00 02/27/25 00:51 Albuterol/Ipratropium (Duoneb) Rt [place] 3 Ml Nebu INH 03/24/25 12:59 3 ml Q6HRRT RADHA Administration Atropine Sulfate 0.5 mg 02/26/25 03:32 Atropine Sulf Inj 1 Mg/Ml Vial IVP Q3MIN PRN heart rate <45 Baclofen 20 mg 02/22/25 07:41 02/23/25 03:12 Baclofen 10 Mg Tablet GT 03/24/25 07:40 20 mg Q6HR PRN Administration Spasms Gabapentin 100 mg/ Gabapentin 400 mg 02/26/25 15:00 02/27/25 05:33 300 mg GT 03/27/25 21:59 400 mg TID RADHA Administration Guaifenesin 200 mg 02/25/25 21:00 02/27/25 05:32 Guaifenesin Syrup 200 Mg/10 Ml Udc PO 03/27/25 20:59 200 mg QID RADHA Administration Protocol Heparin Sodium (Porcine) 5,000 unit 02/22/25 09:00 02/26/25 21:43 Heparin Sod Inj 5000 Unit/Ml Vial SC 03/08/25 08:59 5,000 unit BID RADHA Administration Acetaminophen 1,000 mg in 100 mls @ 250 mls/hr 02/22/25 07:07 02/23/25 09:22 Ofirmev Inj IV 250 mls/hr Q6HR PRN Administration Fever >100.4 or Pain Protocol Piperacillin Sod/Tazobactam 100 mls @ 200 mls/hr 02/25/25 18:44 02/27/25 05:32 Sod 4.5 gm/ Sodium Chloride IV 03/04/25 18:43 200 mls/hr Q6HR RADHA Administration Fentanyl Citrate 2,500 mcg in 250 mls @ 2.5 mls/hr 02/25/25 19:18 02/26/25 01:00 Sublimaze Inj 2,500 Mcg/250 Ml Bag IV 03/02/25 19:17 0 mcg/hr .Q24H PRN 0 mls/hr PER PROTOCOL Titration Protocol 25 MCG/HR Midazolam HCl 100 mg in 100 mls @ 1 mls/hr 02/25/25 20:07 Versed Pf Inj In Ns Premix IV 03/02/25 20:06 .Q24H PRN PER PROTOCOL Protocol 1 MG/HR Vasopressin/Sodium Chloride 20 unit in 100 mls @ 9 mls/hr 02/25/25 20:41 02/26/25 06:00 Vasostrict/Ns Ivpb IV 03/27/25 20:40 0 unit/min .Q11H7M PRN 0 mls/hr PER PROTOCOL Titration Protocol 0.03 UNIT/MIN Norepinephrine/Dextrose 8 mg in 250 mls @ 5.485 mls/hr 02/25/25 20:48 02/27/25 03:12 Levophed In D5w 8mg/250ml IV 03/27/25 20:47 0 mcg/kg/min .Q24H PRN 0 mls/hr PER PROTOCOL Titration Protocol 0.05 MCG/KG/MIN Vancomycin/Sodium Chloride 200 mls @ 120 mls/hr 02/26/25 10:00 02/26/25 21:43 Vancomycin/Ns 1 Gm Ivpb IV 03/05/25 09:59 120 mls/hr BID@1000,2200 RADHA Administration Protocol Levetiracetam 1,000 mg 02/22/25 09:00 02/26/25 21:44 Levetiracetam 250 Mg Tablet GT 03/24/25 08:59 1,000 mg BID RADHA Administration Metoprolol Tartrate 100 mg 02/23/25 09:00 02/26/25 21:44 Metoprolol Tartrate 25 Mg Tablet GT 03/25/25 08:59 100 mg BID RADHA Administration Midodrine 5 mg 02/22/25 10:57 02/26/25 15:48 Midodrine 5 Mg Tablet GT 03/24/25 13:59 5 mg TID PRN Administration Systolic BP <90 Morphine Sulfate 2 mg 02/23/25 10:06 02/25/25 15:46 Morphine Sulf Liqd 10 Mg/5 Ml Udc GT 02/28/25 10:05 2 mg Q8HR PRN Administration 30 minutes before wound care Protocol Ondansetron HCl 4 mg 02/21/25 23:14 Ondansetron Inj 2 Mg/Ml Inj 2 Ml IVP 03/23/25 23:13 Q6H PRN NAUSEA OR VOMITING Protocol Pantoprazole Sodium 40 mg 02/22/25 09:00 02/26/25 08:26 Pantoprazole Inj 40 Mg Vial IVP 03/24/25 08:59 40 mg QDAY RADHA Administration Pharmacy Consult 1 each 02/26/25 09:00 02/26/25 08:09 Vancomycin Pharmacy To Dose 1 Each Each IV 03/28/25 08:59 Not Given QDAY RADHA Sodium Chloride 4 ml 02/22/25 13:00 02/27/25 00:52 Sodium Cl Rt [place] 3% 4 Ml Nebu (Non-Formulary) INH 03/24/25 12:59 4 ml Q6HRRT RADHA Administration Sodium Chloride 3 ml 02/25/25 18:51 Sodium Chloride Rt [place] 0.9% 3 Ml Nebu INH 03/27/25 18:50 PRN PRN SOLN Plan Patient is a 29 year old male with past medical history of cocaine-induced cerebral vasculitis, seizures, anemia, chronic respiratory failure status post tracheostomy, status post PEG tube, and nonresponsive status with quadriparesis who was initially admitted from subacute facility on 02/21/2025 for sepsis 2/2 pneumonia. [facility] was called on 02/25 due to tachycardia, tachypnea and diaphoresis and patient was upgraded to ICU for further management. Today, patient was awake and seems responsive to voice and aware of this senior technical writer's presence. Pertinent labs today include Hgb drop to 7.8 from 9.9 (MCV 86, RDW 77.0, likely hemodilution) and magnesium 1.4. 02/27 CXR shows satisfactory positioning of the tip of the left subclavian central line that was placed today (consent obtained via telephone call from patient's mother, Sara Carmona). Patient's sudden spike in lactic acid levels to 9.2 on 02/25 with rapid return to baseline is suspicious for seizure-like activity; an EEG has been ordered as a result. Patient has also recently been spiking a fever (101.4 today) despite prompt treatment of his ventilator-associated pneumonia or hospital-acquired pneumonia with IV Zosyn and IV vancomycin. Apparently, he has recurrent history of this. His current antibiotic regimen has been switched to IV meropenem and orders for a spinal MRI and possible lumbar tap have been placed to search for possible overlooked nidus for infection (i.e. spinal epidual abscess, meningitis). Patient has stopped being chemically sedated since 06:00 yesterday and has been off of pressors since 5 AM today. Plan to continue IV meropenem for patient's pneumonia and wean him off of ventilatory support before he is stabilized enough to be down-graded. Neuro: #History of cocaine-induced cerebral vasculitis. #s/p tracheostomy. #s/p PEG tube. #History of quadriparesis with spastic contractures. #History of seizures. 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 Patient is aware and does respond to commands. Due to this, the patient is status post tracheostomy and status post PEG tube. Patient is reliant on PEG tube feeds. Patient is also noted to have a history of quadriparesis with spastic contractures and seizures as result of his cocaine induced vasculitis. Plan: - Ordered EEG to assess for seizure-like activity that may explain patient's lactic acidosis upon admission - Wound care referral ordered. - Registered dietitian referral ordered, Jevity 1.5 goal rate 68 mL/hr. - Oral care as needed. - Keppra 1000 mg twice daily. - Gabapentin 100 mg 3 times daily. - Baclofen 20 mg every 6 hours as needed. #Sedation (stopped) Patient has been weaned off of sedatives since 06:00 on 02/26 #Agitated state, likely autonomic dysreflexia vs seizure episode (resolved) Patient became suddenly tachycardic, tachypneic and agitated. His labs were relatively stable with elevated LA of 9.6. Patient was able to communicate however was noticed to have stiffness. After appropriate sedation patient became hypotensive significantly requiring vasopressors, also his HR dropped below 40 overnight and he was given atropine x 1 Now resolved since 02/26 Cardiovascular: #Sinus tachycardia. #Episode of bradycardia (resolved) #SVT (resolved) Patient was noted to have heart rate in the 200s in ED. EKG obtained in ED showed SVT. Patient received 3 doses of adenosine in ED and converted to sinus tachycardia, which later improved with 4 L of IV LR and magnesium. Plan: - Continue to monitor via telemetry box. - Keep potassium above 4 and magnesium above 2. - Metoprolol tartrate 100 mg twice daily. - Atropine PRN for symptomatic bradycardia. #Hypotension (improving) Likely distributive in setting of autonomic dysreflexia Patient has been off of pressors since 05:00 today, 02/27 Respiratory: #Sepsis 2/2 #Ventilator associated pneumonia vs #Healthcare facility acquired pneumonia. #HAGMA 2/2 (resolved) #Lactic acidosis (resolved) Initial admission: Patient presented from subacute with temperature of 106 ?F, heart rate of 203, respiratory rate of 62, and WBC of 17.2. Patient was noted to have anion gap of 27 and bicarb of 12.1, likely secondary to lactic acidosis given lactic acid was 16.0 in ED, which decreased to 2.3 after 4 L of LR given in ED. VBG did show mild respiratory alkalosis with pH of 7.5 and pCO2 of 30. The patient has multiple sources of possible infection, given that checks x-ray showed severe bilateral pneumonia, and the patient was recently discharged from [facility] for sepsis with cultures positive from sputum and skin ulcers on popliteal fossa. Urinalysis was negative for suspicion of infection. Patient was recently discharged from [facility] with clindamycin and Zosyn for pneumonia secondary to trach placement and chronic colonization. Will likely need to broaden antibiotics as infection did not seem to be controlled with those 2 antibiotics upon discharge. Ordered RSV, COVID-19 PCR to investigate further sources of infection, resulted negative Blood cultures drawn on 02/21, negative after 24 hours. ICU upgrade: patient was noticed to have significant respiratory distress with RR of 40-45. VBG showed pCO2 32, pH 7.35. CXR showed Significant left upper lobe pneumonia. 02/26 chest CTA showed bilateral pneumonia that is most prominent in the right upper lobe, mild hilar lymphadenopathy, endotracheal tube tip at 4 cm above nahid, and no findings suggestive for pulmonary artery emboli. Plan: - Started IV Meropenem 2000 mg q8HR (02/27--) - Started IV Ciprofloxacin 400 mg q12HR (02/27--) - IV Cefepime 2 mg every 8 hours (02/22--02/25) discontinued. - IV Zosyn 4.5 gm q6HR (02/25-02/26) discontinued - Vancomycin, pharmacy to dose (02/22-02/26) discontinued. - Chest physiotherapy twice daily ordered. - Continue MV volume control (patient has tracheostomy tube), will wean as tolerated Gastrointestinal: #Transaminitis (resolved) Patient was initially noted to have AST of 87 and ALT of 90 on 02/23, which is increased from his baseline. Likely 2/2 sepsis-induced systemic dysfunction AST and ALT have downtrended as of 02/26 Plan: Continue to monitor. #Abdominal pain (resolved) Patient was grimacing on abdominal palpation. 02/26 CTAP showed right base pneumonia with no pericecal inflammatory change. Plan: Continue to monitor Renal: #JESUS, likely pre-renal (resolved) Patient was noted to have a creatinine of 1.2 in the ED. Baseline is noted to be around 0.6. Given that the patient had significant improvement of lactic acidosis in ED, this is likely prerenal secondary to poor fluid intake/administration. Patient has returned to his baseline creatinine of 0.6 since 02/26 Plan: - Continue to monitor renal panel. #Hyperkalemia (resolved) Admission potassium 5.7. Potassium is now back WNL s/p temporizing measures (kayexalate given on 02/26) Plan: -Continue to monitor #Lactic acidosis (resolved) Admission LA 9.2, has now down-trended to 0.7 by 02/26 Endocrine: #Hypoglycemia Patient has episodes of hypoglycemia and has required multiple D50 ampules to maintain blood glucose above 70 throughout hospitalization. Noted to start around 02/22. Plan: - Discontinued D10W drip. - Started on tube feeds - D50 ampules as needed for glucose <70. - Glucose check Q2H. Infectious Disease: #Ventilator associated pneumonia vs healthcare facility acquired pneumonia. See Respiratory section. #?Spinal epidural abscess #?Meningitis Patient spiked a fever of 101.4 today despite having been on IV Zosyn and Vancomycin for his respiratory infection Current suspicion is that his refractory febrile episodes could be 2/2 overlooked nidus of infection DDx: spinal epidural abscess, meningitis, other infectious source, autonomic etiology Dx: -02/27 CXR shows no signs of ongoing pneumonia Rx: -Ordered spinal MRI (thoracic and lumbar) to check for spinal epidural abscess -May consider a lumbar tap to r/o possible meningitis Hematology/Oncology: #Chronic normocytic anemia. Hgb has hovered between 8-10 in the past few days Hgb dropped to 7.8 today from 9.9 yesterday (likely hemodilution due to receiving fluids and concomitant drop in WBC and platelets as well) Plan: - Monitor with daily labs. Diet: PEG tube feeds. DVT prophylaxis: Heparin. GI prophylaxis: Protonix. Code status: DNR. Disposition: ICU due to requiring ventilatory support Plan of care discussed with ICU attending Dr. Wilde. John Lakhani DO Internal Medicine, PGY-1 Attending Provider Attestation/Addendum Patient seen and examined with above resident, oJhn Lakhani DO. I agree with the findings, assessment, and plan of care as documented separately differences below. Patient remains hemodynamically stable previous 24 hours without vasopressor support. Will discontinue arterial access and right femoral central venous catheter was removed with new left-sided subclavian placed under ultrasound guidance without any incidents. Patient continues to have significant fevers and we will treat as needed with cooling as well as as needed Tylenol. Culture data remains negative to date apart from organisms that he historically has had from the airway and may actually reflect colonization of his chronic tracheostomy tube versus true pneumonia. Imaging of the chest did not show any large consolidation and there is some possible early basilar infiltrates versus chronic mucous plugging. Patient remains stable on blow-by oxygen after removal from mechanical ventilation. Patient potential other etiologies to exclude would include epidural abscess, will send for MRI testing of the thoracic and lumbar spine today. Patient should he continue to have fevers should undergo lumbar puncture. We did which we will have more than adequate coverage of SCIENTIFIC MANAGER penetration at this point. Continue on vancomycin and add on meropenem with Levaquin for double coverage for multidrug-resistant organisms as well as SCIENTIFIC MANAGER infection. EEG to be completed today. Should it return positive then acyclovir should be added as well. Difficult discern if the patient's mentation has changed as he seems to be currently at baseline. Total critical care time: Personally spent 40 minutes for review of physiologic parameters, directing plan of care throughout the day, and coordination of care with other specialists. This is exclusive of time spent teaching on staff performing some billable procedures. Patient remains at significant risk for further morbidity and mortality warranting close monitoring and care when available in the ICU. Critical care services provided for acute on chronic hypoxic respiratory failure, septic shock, multifocal pneumonia, urinary tract infection.
[2025-02-27] MEDS: Magnesium Sulfate 4 GM Ivpb 4 GM/50 ML BAG IV (07:56)
[2025-02-27] MEDS: HEPARIN SOD INJ 5000 UNIT/ML VIAL SC ×2 (08:01→22:30)
[2025-02-27] MEDS: METOPROLOL TARTRATE 25 MG TABLET 100 MG GT ×2 (08:01→22:30)
[2025-02-27 09:04] LABS: Vancomycin,Trough 25.5 mcg/mL (5.0-10.0)
--- NOTE | 2025-02-27 09:14 | PC.NURSE ---
At 0730 patient was assessed, pt was diaphoretic, tachycardic, and febrile at 101.9 rectally. I adjusted temperature to 97.0, fan on and ice pack given and notified Dr. Lakhani. No new orders received at this time. Will await for any new orders at this time.
[2025-02-27] MEDS: CIPROFLOXACIN/D5w 400 MG IVPB 400 MG/200 ML BAG 200 MG IV ×2 (09:58→22:30)
--- NOTE | 2025-02-27 11:52 | XR_ITS ---
Examination: AP chest single view TECHNIQUE: AP portable supine chest single view Date and time: February 27, 2025 1219 hours, comparison 02/25/2025 INDICATIONS: Post central line placement FINDINGS: Left subclavian central line tip SVC satisfactory position No pneumothorax. Tracheostomy tube tip 5.8 cm above nahid Normal heart size No pneumonia IMPRESSION: Left subclavian central line tip satisfactory position
--- NOTE | 2025-02-27 14:19 | ESOP_ITS ---
PROCEDURES: Procedure Date / Time 02/27/25 1419 Procedure Narrative Procedure Narrative: Attending Attestation: I was present for entire procedure. Patient tolerated procedure well with no immediate complications. Follow-up chest x-ray shows adequate placement of the tip of the CVC and no postprocedural pneumothorax. Arterial Line Size (Gauge): 20 Central Line Placement Left SC: Procedure comment: INDICATION: Venous Access PROCEDURE WASTE PICKER: MD Martínez ATTENDING PHYSICIAN: MD Bety Ultrasound Used: Y CONSENT: [Yes] During the informed consent discussion regarding the procedure, or treatment, I explained the following to the designee: a. Nature of the procedure or treatment and who will perform the procedure or treatment. b. Necessity for procedure and the possible benefits. c. Risks and complications (most common and serious). d. Alternative treatments and the risks, benefits and side effects of each (including no treatment). e. Likelihood of the patient achieving his/her goals without this procedure and surgery treatment. f. Problems that might occur during the recuperation. g. Conflicts of interest, if any PROCEDURE SUMMARY: The [facility] Central Line Insertion Practices form was completed by an independent observer starting with the first handwash prior to starting sterile technique. A time out was performed. My hands were washed immediately prior to the procedure. I wore a surgical cap, mask with protective eyewear, sterile gown and sterile gloves throughout the procedure. The patient was placed in Trendelenburg position. The Left chest region was prepped using chlorhexidine scrub and draped in sterile fashion using a full drape and sterile probe cover and sterile gel employed. Anesthesia was achieved with 1% lidocaine. The introducer needle was inserted approximately two centimeters lateral to and 1 cm inferior to the normal curvature of the patient's clavicle. Venous blood was withdrawn. The syringe was removed and a guidewire was advanced into the introducer needle. A small incision was made at the skin surface with a scalpel and the introducer needle was exchanged for a dilator over the guidewire. After appropriate dilation was obtained, the dilator was exchanged over the wire for a 7.5Fr central venous catheter. The wire was riky petar and the catheter was sutured in place at skin. A sterile sorbaview shield was placed over the catheter at the insertion site. The patient tolerated the procedure without any hemodynamic compromise. At time of procedure completion, all ports aspirated and flushed properly. CXR confirmed placement. Estimated blood loss is 3cc. Procedure supervised by my Attending Dr. Chani Cabrera MD PGY2
--- NOTE | 2025-02-27 14:21 | PC.SS ---
Update: Patient is Trach/PEG. Feedings in place. Patient is not receiving pressor support. Patient receiving IV antibiotics. Patient's temperature has been elevated. MRI pending.
[2025-02-27] MEDS: MEROPENEM INJ 2,000 MG in SODIUM CHLORIDE 0.9% 100 ML 100 MG IV ×2 (14:26→22:30)
--- NOTE | 2025-02-27 15:13 | ESPR_ITS ---
<Statement entered by Margarito Merino MD - 03/02/25 16:29> Patient is initially upgraded to ICU on 02/25/2025 for suspected worsening sepsis, hypoglycemia, sinus tachycardia and lactic acidosis with suspicion of ongoing seizure activity. Patient was started on midazolam and fentanyl drip in the ICU. Noted to have febrile and hypothermic episodes in the ICU for which patient was started on meropenem. Femoral central line was discontinued and left subclavian central line is placed for the venous access. CT angio chest, CT abdomen pelvis was done which did not show any significant abnormality or source of infection. MRI spine was ordered to look for any abscess to rule out the source of infection. Also planned to do CSF analysis if MRI comes back negative and patient continues to spike fever. Patient was weaned off vasopressors and ventilator this morning, downgraded to floors for further management I have personally seen and examined the patient, agree with residents assessment and plan Patient plan of care was discussed with the attending physician, Dr. Dejon Merino, PGY2 Documentation for date of: 02/27/25 Subjective Subjective Interval history: Overnight events: No acute events overnight. Patient was seen and examined at bedside. AM vitals and labs reviewed. Patient was downgraded from ICU today. Patient does not seem to be in any acute distress at this time. Summary of ICU stay: Patient was upgraded to ICU on 02/25 for worsening sepsis, hypoglycemia, and lactic acidosis. Prior to upgrade, patient had heart rate 160s/170s, respiratory rate 40-45, fever of 100 ?F, fingerstick glucose in the 40s, and lactic acid of 9.2. CTA chest was performed, which showed bilateral pneumonia was prominent in the right upper lobe. CT abdomen pelvis that showed right base pneumonia. Patient's antibiotic regimen was switch from cefepime to Zosyn. On 02/27, patient was noted to be spiking fevers, and antibiotic regimen was changed to meropenem. Subclavian central line was placed for better venous access. Final MRI ordered to investigate other sources of infection. Considering lumbar puncture afterwards. EEG was ordered due to considering possible seizures causing the lactic acidosis and acute changes in vital signs. Patient was weaned off pressors and weaned off ventilator support, to which the patient tolerated, prompting downgrade back to medical floors. Continue meropenem. Consulted neurology, appreciate recommendations on EEG read, changing AEDs, and investigating if labile vital signs and labile blood glucose is associated with patient's cerebral vasculitis causing autonomic issues. Pending EEG, MRI lumbar spine, MRI thoracic spine. Will reevaluate if LP is necessary tomorrow. Review of systems otherwise negative except for what is mentioned above. Exam Vital Signs Temp Pulse Resp BP Pulse Ox O2 Del Method O2 Flow Rate 96.0 F L 100 18 129/76 99 Blow-by 8 02/27/25 12:00 02/27/25 13:45 02/27/25 13:45 02/27/25 13:45 02/27/25 13:45 02/27/25 12:00 02/27/25 12:13 FiO2 30 02/27/25 12:13 Narrative Exam Physical Exam: General: Alert, no acute distress. Nonverbal. Skin: Warm, dry, intact. Head: Normocephalic, atraumatic. Eye: Normal conjunctiva, PERRL. Throat: Tracheostomy midline, no bleeding noted. Clear sputum noted in trach tube. Cardiovascular: Regular rate and rhythm, no murmur, +S1/S2. Respiratory: Respirations unlabored, diffuse mechanical breath sounds. Gastrointestinal: Soft, nontender, non-distended. No guarding or rebound tenderness. PEG tube in place. Extremities: No edema, no cyanosis, no clubbing. Extremities postured in flexion. Bilateral popliteal fossa leg 4x4 cm dressings, yellow drainage noted from left wound. Neuro: Quadrapleigic, opens eyes spontaneously. Objective Labs 03/02/25 04:16 03/02/25 04:16 Labs: Laboratory Results - last 24 hr 02/27/25 02/27/25 04:50 08:30 WBC 6.6 RBC 2.83 L Hgb 7.8 L D Hct 24.4 L MCV 86 MCH 27.6 MCHC 32.0 RDW Std Deviation 77.0 H Plt Count 234 D Neut % (Auto) 70 Lymph % (Auto) 19 [place] % (Auto) 10 Eos % (Auto) 2 Baso % (Auto) 0 Neut # (Auto) 4.6 Lymph # (Auto) 1.2 [place] # (Auto) 0.6 Eos # (Auto) 0.1 Baso # (Auto) 0.0 Immature Gran # (Auto) 0.02 H Absolute Nucleated RBC 0.00 Immature Gran % 0 Nucleated RBC % 0 Sodium 141 Potassium 3.8 Chloride 107 Carbon Dioxide 22.3 Anion Gap 12 BUN 8 L Creatinine 0.7 Estim Creat Clear Calc 130.0 eGFR > 60 BUN/Creatinine Ratio 11 L Glucose 80 D Calculated Osmolality 278 Calcium 9.3 Corrected Calcium 9.9 Phosphorus 4.0 Magnesium 1.4 L Total Bilirubin 0.2 L AST 22 ALT 37 Alkaline Phosphatase 112 Total Protein 6.6 Albumin 3.2 L Globulin 3.4 Albumin/Globulin Ratio 0.9 L Vancomycin Trough 25.5 H* ABG Interpretation ABG results: 02/21/25 02/25/25 02/25/25 23:11 17:38 20:17 ABG pH 7.35 7.43 ABG pCO2 32 33 ABG pO2 39 L* 169 H D ABG HCO3 18 L 22 ABG O2 Saturation 68 L 101 H ABG Base Excess -7 L -2 VBG pH 7.50 VBG pCO2 30 L VBG pO2 66 H VBG Base Excess 1 02/26/25 04:07 ABG pH 7.45 ABG pCO2 31 L ABG pO2 146 H D ABG HCO3 21 ABG O2 Saturation 100 H ABG Base Excess -3 VBG pH VBG pCO2 VBG pO2 VBG Base Excess Quality Measures Quality Measures VTE prophylaxis Assessment & Plan Assessment Current Active Medications: Generic Name Dose Route Start Last Admin Trade Name Freq PRN Reason Stop Dose Admin Albuterol/Ipratropium 3 ml 02/22/25 13:00 02/27/25 12:12 Albuterol/Ipratropium (Duoneb) Rt [place] 3 Ml Nebu INH 03/24/25 12:59 3 ml Q6HRRT RADHA Administration Atropine Sulfate 0.5 mg 02/27/25 07:30 Atropine Sulf Inj 0.1 Mg/Ml Syr 10 Ml IVP Q3MIN PRN heart rate <45 Baclofen 20 mg 02/22/25 07:41 02/23/25 03:12 Baclofen 10 Mg Tablet GT 03/24/25 07:40 20 mg Q6HR PRN Administration Spasms Protocol Gabapentin 100 mg/ Gabapentin 400 mg 02/26/25 15:00 02/27/25 14:10 300 mg GT 03/27/25 21:59 400 mg TID RAHDA Administration Guaifenesin 200 mg 02/25/25 21:00 02/27/25 12:14 Guaifenesin Syrup 200 Mg/10 Ml Udc PO 03/27/25 20:59 200 mg QID RADHA Administration Protocol Heparin Sodium (Porcine) 5,000 unit 02/22/25 09:00 02/27/25 08:01 Heparin Sod Inj 5000 Unit/Ml Vial SC 03/08/25 08:59 5,000 unit BID RADHA Administration Ciprofloxacin/Dextrose 400 mg in 200 mls @ 200 mls/hr 02/27/25 09:07 02/27/25 11:23 Cipro Ivpb IV 03/06/25 09:06 Infused Q12HR RADHA Infusion Meropenem 2,000 mg/ Sodium 100 mls @ 100 mls/hr 02/27/25 14:00 02/27/25 14:26 Chloride IV 03/06/25 13:59 100 mls/hr Q8HR RADHA Administration Levetiracetam 1,000 mg 02/22/25 09:00 02/27/25 08:00 Levetiracetam 250 Mg Tablet GT 03/24/25 08:59 1,000 mg BID RADHA Administration Metoprolol Tartrate 100 mg 02/23/25 09:00 02/27/25 08:01 Metoprolol Tartrate 25 Mg Tablet GT 03/25/25 08:59 100 mg BID RADHA Administration Midodrine 5 mg 02/22/25 10:57 02/26/25 15:48 Midodrine 5 Mg Tablet GT 03/24/25 13:59 5 mg TID PRN Administration Systolic BP <90 Morphine Sulfate 2 mg 02/23/25 10:06 02/25/25 15:46 Morphine Sulf Liqd 10 Mg/5 Ml Udc GT 02/28/25 10:05 2 mg Q8HR PRN Administration 30 minutes before wound care Protocol Ondansetron HCl 4 mg 02/21/25 23:14 Ondansetron Inj 2 Mg/Ml Inj 2 Ml IVP 03/23/25 23:13 Q6H PRN NAUSEA OR VOMITING Protocol Pantoprazole Sodium 40 mg 02/22/25 09:00 02/27/25 08:01 Pantoprazole Inj 40 Mg Vial IVP 03/24/25 08:59 40 mg QDAY RADHA Administration Sodium Chloride 3 ml 02/25/25 18:51 Sodium Chloride Rt [place] 0.9% 3 Ml Nebu INH 10/08/25 18:50 PRN PRN SOLN Sodium Chloride 4 ml 02/27/25 07:09 Sodium Cl Rt [place] 3% 4 Ml Nebu (Non-Formulary) INH 03/29/25 07:06 PRN PRN SECRETIONS Plan Mr. 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 Patient was admitted for sepsis workup. Patient was upgraded to ICU on 02/25 for additional management of worsening sepsis, hypoglycemia, and lactic acidosis. Patient was downgraded to medical floors on 02/27 given stability. #Sepsis 2/2 #Ventilator associated pneumonia vs #Healthcare facility acquired pneumonia #HAGMA, resolved, 2/2 #Lactic acidosis, resolved Patient presented from subacute with temperature of 106 ?F, heart rate of 203, respiratory rate of 62, and WBC of 17.2. Patient was noted to have anion gap of 27 and bicarb of 12.1, likely secondary to lactic acidosis given lactic acid was 16.0 in ED, which decreased to 2.3 after 4 L of LR given in ED. VBG did show mild respiratory alkalosis with pH of 7.5 and pCO2 of 30. The patient has multiple sources of possible infection, given that checks x-ray showed severe bilateral pneumonia, and the patient was recently discharged from [facility] for sepsis with cultures positive from sputum and skin ulcers on popliteal fossa. Urinalysis was negative for suspicion of infection. Patient was recently discharged from [facility] with clindamycin and Zosyn for pneumonia secondary to trach placement and chronic colonization. Will likely need to broaden antibiotics as infection did not seem to be controlled with those 2 antibiotics upon discharge. SIRS score 4 Diagnostics: Ordered RSV, COVID-19 PCR to investigate further sources of infection, resulted negative Blood cultures drawn on 02/21, negative after 24 hours Lactic acid 02/23 1.1, 02/25 9.2, 02/25 1.9, 02/26 0.7 Ordered cocci, resulted as negative Plan: Cefepime 2 mg every 8 hours (02/22-02/26) Vancomycin, pharmacy to dose (02/22-02/27) Zosyn (02/26-02/27) Sputum culture collected 02/22, GNR x4 organisms preliminary results PICC line insertion ordered, pending Chest physiotherapy twice daily ordered #Hypoglycemia, resolving Patient has episodes of hypoglycemia and has required multiple D50 ampules to maintain blood glucose above 70 throughout hospitalization. Noted to start around 02/22. Per RD, current tube feed of Jevity 1.5 at 68 mL/h would not explain episodes of hypoglycemia. Patient's hypoglycemia appears to be resolving during management in ICU from 02/26-02/27 Plan: 1 L LR 02/26 1 L D10W 02/26 D50 ampules as needed for glucose <70 #Transaminitis, resolving Patient was noted to have AST of 87 and ALT of 90 on 02/23, which is increased from his baseline. Plan: Continue to monitor #SVT, resolved #Sinus tachycardia Patient was noted to have heart rate in the 200s in ED. EKG obtained in ED showed SVT. Patient received 3 doses of adenosine in ED and converted to sinus tachycardia, which later improved with 4 L of IV LR and magnesium. Plan: Continue to monitor via telemetry box Keep potassium above 4 and magnesium above 2 Metoprolol tartrate 100 mg twice daily #JESUS, likely pre-renal, resolving Patient was noted to have a creatinine of 1.2 in the ED. Baseline is noted to be around 0.6. Given that the patient had significant improvement of lactic acidosis in ED, this is likely prerenal secondary to poor fluid intake/administration. Plan: Continue to monitor renal panel Avoid nephrotoxins Renally dose medications Hold TETE/ARB/diuretics #Electrolyte abnormalities #Hyperkalemia, resolved #Hypercalcemia, resolving #Hypomagnesemia, resolved Patient noted to have a potassium 5.8, calcium 11.2, and magnesium 1.2 in ED. Likely secondary to dehydration and malnutrition as patient was noted to significantly improve after being given 4 L LR in ED and appropriately replenished. 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 Patient is aware and does respond to commands. Due to this, the patient is status post tracheostomy and status post PEG tube. Patient is reliant on PEG tube feeds. 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 Plan: Wound care referral ordered Registered dietitian referral ordered, Jevity 1.5 goal rate 68 mL/hr Oral care as needed Keppra 1000 mg twice daily Gabapentin 100 mg 3 times daily Baclofen 20 mg every 6 hours as needed Neurology consulted, appreciate recommendations EEG ordered, pending DVT Prophylaxis: Heparin GI Prophylaxis: Protonix Bowel: N/A Diet: Jevity 1.5 [place]: Yes Lines: Peripheral IV, trach, PEG Antibiotics: Cefepime (02/22-02/28) Code Status: FULL Reason for Hospitalization: Sepsis Other Barriers to Discharge: MRI spine, EEG, Neuro consult Patient plan of care was discussed with attending physician Dr. Ashford and senior resident Dr. Merino (PGY-2) Nomi Perea, PGY1 Attending Provider Attestation/Addendum I attest that I was physically present for the evaluation, physical examination, lab and imaging review of the patient with the residents. I discussed the case with the residents and agree with the findings and plans of care as documented above. Beth Ashford MD
--- NOTE | 2025-02-27 17:41 | PC.RT ---
EEG complete and ready to read
--- NOTE | 2025-02-27 20:03 | PC.RT ---
Respiratory treatment not given due to being at MRI.
--- NOTE | 2025-02-27 20:11 | PC.NURSE ---
0900:I had notified Dr. Wilde regarding patient's temperature fluctuations between 101.[address] Wilde ordered to remove central line and artline, do cooling measures and they will order MRI and EEG on patient. At 1740 MRI called for patient to come down. I went with RT for MRI patient started to cough very aggressively, ct scan tech Jeniffer stated that the exam will not be able to be completed if the patient cannot stay still. Dr. Wilde was made aware.
[2025-02-28] VITALS (78 sets, daily range): BP systolic 76–115; BP diastolic 41–75; PULSE 58–126; RESP 8–53; TEMP 36.1–38.5; O2SAT 93–100; BMI 18.0
[2025-02-28] MEDS: ALBUTEROL/IPRATROPIUM (Duoneb) RT SOL 3 ML NEBU INH ×4 (00:59→19:31)
--- NOTE | 2025-02-28 05:00 | XR_ITS ---
Examination: AP chest single view Technique: AP portable semiupright chest single view Comparison: February 27, 2025 Indications: Coughing congestion today. Findings: Normal heart size. Suspicious for mild diffuse left lung pneumonia. Left subclavian central line tip SVC. Intact osseous structures. Impression: Suspicious for mild diffuse left lung pneumonia.
[2025-02-28 05:42] LABS: Basophils # (Auto) 0.0 Thou/mm3 (0.0-0.2); Basophils % (Auto) 0 % (0-2.5); Eosinophils # (Auto) 0.0 Thou/mm3 (0.0-0.5); Eosinophils % (Auto) 0 % (0-10); Hematocrit 28.3 % (41.0-53.0); Hemoglobin 8.9 g/dL (13.5-16.0); Immature Granulocytes Auto 0.02 Thou/mm3 (0.00-0.00); Lymphocytes # (Auto) 1.2 Thou/mm3 (1.0-4.8); Lymphocytes % (Auto) 12 % (10-50); Mean Corpuscular HGB Conc 31.4 g/dl (31.0-37.0); Mean Corpuscular Hemoglobin 27.3 pg (25.0-35.0); Mean Corpuscular Volume 87 fL (80-100); Monocytes # (Auto) 0.9 Thou/mm3 (0.0-0.8); Monocytes % (Auto) 9 % (0-12); Neutrophils # (Auto) 8.0 Thou/mm3 (1.8-7.7); Neutrophils % (Auto) 79 % (37-80); Nucleated Red Blood Cell # 0.00 Thou/mm3 (0.00-0.00); Nucleated Red Blood Cell % 0 /100 WBC (0); Platelet Count 305 Thou/mm3 (140-440); RDW Standard Deviation 79.6 fL (35.1-43.9); Red Blood Count 3.26 Miln/mm3 (4.50-5.90); White Blood Count 10.2 Thou/mm3 (3.8-10.6)
[2025-02-28] MEDS: DEXTROSE 50%-WATER INJ 50 ML SYRINGE IVP (05:47)
[2025-02-28] MEDS: GABAPENTIN 100 MG, GABAPENTIN 300 MG 400 MG GT ×2 (05:47→21:40)
[2025-02-28] MEDS: guaiFENesin SYRUP 200 MG/10 ML UDC PO ×4 (05:48→21:37)
[2025-02-28] MEDS: MEROPENEM INJ 2,000 MG in SODIUM CHLORIDE 0.9% 100 ML 100 MG IV ×3 (05:48→21:40)
[2025-02-28 06:08] LABS: Alanine Aminotransferase 36 U/L (10-49); Albumin, Serum 3.8 gm/dL (3.5-5.0); Albumin/Globulin Ratio 1.0 (1.2-2.2); Alkaline Phosphatase 124 U/L (46-116); Anion Gap 16 (7-16); Aspartate Amino Transferase 22 U/L (0-34); BUN/Creatinine Ratio 12 Ratio (12-20); Bilirubin,Total 0.3 mg/dL (0.3-1.2); Blood Urea Nitrogen 13 mg/dL (9-23); Calcium 10.2 mg/dL (8.3-10.6); Calcium (Corrected) 10.4 mg/dL (8.5-10.1); Carbon Dioxide 22.8 mMol/L (20.0-31.0); Chloride 106 mMol/L (98-107); Creatinine (Component) 1.1 mg/dL (0.6-1.3); Estimated Creatinine Clearance 85.6 mL/min (>60); Globulin 4.0 gm/dL (2.3-3.5); Glucose 61 mg/dL (74-106); Magnesium 2.0 mg/dL (1.6-2.6); Osmolality,Calculated 286 (275-295); Phosphorous 3.7 mg/dL (2.4-5.1); Potassium 3.9 mMol/L (3.4-5.1); Sodium 145 mMol/L (136-145); Total Protein 7.8 gm/dL (5.7-8.2); Vancomycin,Random 8.0 mcg/mL; eGFR > 60 See Note
[2025-02-28] MEDS: RINGERS LACTATED 500 ML 500 ML 100 ML IV ×2 (08:37→11:41)
[2025-02-28] MEDS: LEVOFLOXACIN/D5W 750MG IVPB 750 MG/150 ML BAG 100 MG IV (08:37)
[2025-02-28] MEDS: HEPARIN SOD INJ 5000 UNIT/ML VIAL SC ×2 (08:55→21:40)
--- NOTE | 2025-02-28 09:31 | PC.LAC ---
notified Dr Fuentes that patient vomited large amounts of feed and after large amounts of sputum coming out of trac. Pt on cooling measure for temp of 101.7. Orders received to hold further tube feedings tonight.
[2025-02-28] MEDS: RINGERS LACTATED 500 ML 500 ML 125 ML IV ×2 (11:42→13:33)
[2025-02-28] MEDS: RINGERS LACTATED 1000 ML 1,000 ML 999 ML IV ×2 (11:46→12:13)
[2025-02-28] MEDS: Norepinephrine/D5W 8mg/250ml 8 MG/250 ML BAG 5.672 MG IV (12:32)
[2025-02-28] MEDS: ONDANSETRON INJ 2 MG/ML INJ 2 ML 4 MG IVP (13:30)
--- NOTE | 2025-02-28 14:04 | ESPR_ITS ---
Documentation for date of: 02/28/25 Subjective Subjective Interval history: Overnight events: Had atrial fibrillation overnight 95 to 101.4 ?F per nursing staff. Patient did have a MAP of 54 overnight. Patient was seen and examined at bedside. AM vitals and labs reviewed. Patient does not appear to be in any acute distress. However, blood pressures were still very soft. Wounds were examined, does not appear to be significantly worsening. EEG taken, pending read. MRI was not done yesterday as patient seemed to have too much movement with his coughing. Blood culture isolated Proteus which is sensitive to meropenem. Sodium 145. Free water deficit 1.3 L. Gave patient 1 L LR bolus, with an additional 2 L given by ICU team. Discussed case with printing plate setter, who notes that patient may be suffering from extended Pseudomonas infection after comparing the CTA from 02/26/25 and 10/31/2024, that is not being appropriately treated with the short-term antibiotics as the patient has been receiving thus far. Continue meropenem. Ordered echocardiogram to find possible sources of infection, pending. Increased free water flushes to 60 cc/h. Review of systems otherwise negative except for what is mentioned above. Exam Vital Signs Temp Pulse Resp BP Pulse Ox O2 Del Method O2 Flow Rate 98.6 F 106 H 28 H 108/57 L 96 Blow-by 8 02/28/25 12:00 02/28/25 13:17 02/28/25 13:17 02/28/25 13:15 02/28/25 13:17 02/27/25 16:00 02/28/25 13:17 FiO2 30 02/28/25 13:17 Narrative Exam Physical Exam: General: Alert, no acute distress. Nonverbal. Skin: Warm, dry, intact. Head: Normocephalic, atraumatic. Eye: Normal conjunctiva, PERRL. Throat: Tracheostomy midline, no bleeding noted. Clear sputum noted in trach tube. Cardiovascular: Regular rate and rhythm, no murmur, +S1/S2. Respiratory: Respirations unlabored, diffuse mechanical breath sounds. Gastrointestinal: Soft, nontender, non-distended. No guarding or rebound tenderness. PEG tube in place. Extremities: No edema, no cyanosis, no clubbing. Extremities postured in flexion. Bilateral popliteal fossa leg 4x4 cm dressings, yellow drainage noted from wounds. Neuro: Quadrapleigic, opens eyes spontaneously. Objective Labs 02/28/25 05:00 02/28/25 05:00 Labs: Laboratory Results - last 24 hr 02/28/25 05:00 WBC 10.2 D RBC 3.26 L Hgb 8.9 L Hct 28.3 L MCV 87 MCH 27.3 MCHC 31.4 RDW Std Deviation 79.6 H Plt Count 305 D Neut % (Auto) 79 Lymph % (Auto) 12 [place] % (Auto) 9 Eos % (Auto) 0 Baso % (Auto) 0 Neut # (Auto) 8.0 H Lymph # (Auto) 1.2 [place] # (Auto) 0.9 H Eos # (Auto) 0.0 Baso # (Auto) 0.0 Immature Gran # (Auto) 0.02 H Absolute Nucleated RBC 0.00 Immature Gran % 0 Nucleated RBC % 0 Sodium 145 Potassium 3.9 Chloride 106 Carbon Dioxide 22.8 Anion Gap 16 BUN 13 Creatinine 1.1 Estim Creat Clear Calc 85.6 eGFR > 60 BUN/Creatinine Ratio 12 Glucose 61 L Calculated Osmolality 286 Calcium 10.2 Corrected Calcium 10.4 H Phosphorus 3.7 Magnesium 2.0 Total Bilirubin 0.3 AST 22 ALT 36 Alkaline Phosphatase 124 H Total Protein 7.8 Albumin 3.8 D Globulin 4.0 H Albumin/Globulin Ratio 1.0 L Random Vancomycin 8.0 ABG Interpretation ABG results: 02/21/25 02/25/25 02/25/25 23:11 17:38 20:17 ABG pH 7.35 7.43 ABG pCO2 32 33 ABG pO2 39 L* 169 H D ABG HCO3 18 L 22 ABG O2 Saturation 68 L 101 H ABG Base Excess -7 L -2 VBG pH 7.50 VBG pCO2 30 L VBG pO2 66 H VBG Base Excess 1 02/26/25 04:07 ABG pH 7.45 ABG pCO2 31 L ABG pO2 146 H D ABG HCO3 21 ABG O2 Saturation 100 H ABG Base Excess -3 VBG pH VBG pCO2 VBG pO2 VBG Base Excess Quality Measures Quality Measures VTE prophylaxis Assessment & Plan Assessment Current Active Medications: Generic Name Dose Route Start Last Admin Trade Name Freq PRN Reason Stop Dose Admin Albuterol/Ipratropium 3 ml 02/22/25 13:00 02/28/25 13:17 Albuterol/Ipratropium (Duoneb) Rt [place] 3 Ml Nebu INH 03/24/25 12:59 3 ml Q6HRRT RADHA Administration Atropine Sulfate 0.5 mg 02/27/25 07:30 Atropine Sulf Inj 0.1 Mg/Ml Syr 10 Ml IVP Q3MIN PRN heart rate <45 Baclofen 20 mg 02/22/25 07:41 02/23/25 03:12 Baclofen 10 Mg Tablet GT 03/24/25 07:40 20 mg Q6HR PRN Administration Spasms Protocol Gabapentin 100 mg/ Gabapentin 400 mg 02/26/25 15:00 02/28/25 05:47 300 mg GT 03/27/25 21:59 400 mg TID RADHA Administration Guaifenesin 200 mg 02/25/25 21:00 02/28/25 12:16 Guaifenesin Syrup 200 Mg/10 Ml Udc PO 03/27/25 20:59 200 mg QID RADHA Administration Protocol Heparin Sodium (Porcine) 5,000 unit 02/22/25 09:00 02/28/25 08:55 Heparin Sod Inj 5000 Unit/Ml Vial SC 03/08/25 08:59 5,000 unit BID RADHA Administration Meropenem 2,000 mg/ Sodium 100 mls @ 100 mls/hr 02/27/25 14:00 02/28/25 13:42 Chloride IV 03/06/25 13:59 100 mls/hr Q8HR RADHA Administration Lactated Ringer's 500 mls @ 125 mls/hr 02/28/25 10:46 02/28/25 13:33 Lactated Ringers IV 02/28/25 14:45 125 mls/hr .Q4H ONE Administration Norepinephrine/Dextrose 8 mg in 250 mls @ 5.672 mls/hr 02/28/25 12:25 02/28/25 12:32 Levophed In D5w 8mg/250ml IV 03/30/25 12:24 0.05 mcg/kg/min .Q24H PRN 5.672 mls/hr PER PROTOCOL Administration Protocol 0.05 MCG/KG/MIN Levetiracetam 1,000 mg 02/22/25 09:00 02/28/25 08:38 Levetiracetam 250 Mg Tablet GT 03/24/25 08:59 1,000 mg BID RADHA Administration Metoprolol Tartrate 100 mg 02/23/25 09:00 02/27/25 22:30 Metoprolol Tartrate 25 Mg Tablet GT 03/25/25 08:59 100 mg BID RADHA Administration Midodrine 5 mg 02/22/25 10:57 02/26/25 15:48 Midodrine 5 Mg Tablet GT 03/24/25 13:59 5 mg TID PRN Administration Systolic BP <90 Ondansetron HCl 4 mg 02/21/25 23:14 02/28/25 13:30 Ondansetron Inj 2 Mg/Ml Inj 2 Ml IVP 03/23/25 23:13 4 mg Q6H PRN Administration NAUSEA OR VOMITING Protocol Pantoprazole Sodium 40 mg 02/22/25 09:00 02/28/25 08:38 Pantoprazole Inj 40 Mg Vial IVP 03/24/25 08:59 40 mg QDAY RADHA Administration Sodium Chloride 3 ml 02/25/25 18:51 Sodium Chloride Rt [place] 0.9% 3 Ml Nebu INH 03/27/25 18:50 PRN PRN SOLN Sodium Chloride 4 ml 02/27/25 07:09 Sodium Cl Rt [place] 3% 4 Ml Nebu (Non-Formulary) INH 03/29/25 07:06 PRN PRN SECRETIONS Plan Mr. 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 Patient was admitted for sepsis workup. Patient was upgraded to ICU on 02/25 for additional management of worsening sepsis, hypoglycemia, and lactic acidosis. Patient was downgraded to medical floors on 02/27 given stability. #Sepsis 2/2 #Ventilator associated pneumonia vs #Healthcare facility acquired pneumonia #HAGMA, resolved, 2/2 #Lactic acidosis, resolved Patient presented from subacute with temperature of 106 ?F, heart rate of 203, respiratory rate of 62, and WBC of 17.2. Patient was noted to have anion gap of 27 and bicarb of 12.1, likely secondary to lactic acidosis given lactic acid was 16.0 in ED, which decreased to 2.3 after 4 L of LR given in ED. VBG did show mild respiratory alkalosis with pH of 7.5 and pCO2 of 30. The patient has multiple sources of possible infection, given that checks x-ray showed severe bilateral pneumonia, and the patient was recently discharged from [facility] for sepsis with cultures positive from sputum and skin ulcers on popliteal fossa. Urinalysis was negative for suspicion of infection. Patient was recently discharged from [facility] with clindamycin and Zosyn for pneumonia secondary to trach placement and chronic colonization. Will likely need to broaden antibiotics as infection did not seem to be controlled with those 2 antibiotics upon discharge. SIRS score 4 Diagnostics: Ordered RSV, COVID-19 PCR to investigate further sources of infection, resulted negative Blood cultures drawn on 02/21, negative after 5 days Lactic acid 02/23 1.1, 02/25 9.2, 02/25 1.9, 02/26 0.7 Ordered cocci, resulted as negative Sputum culture collected 02/22 grows Pseudomonas, Proteus, and Klebsiella Blood cultures drawn on 02/25, negative after 48 hours Sputum culture collected 02/25 grows Proteus Plan: Cefepime 2 mg every 8 hours (02/22-02/26) Vancomycin, pharmacy to dose (02/22-02/27) Zosyn (02/26-02/27) Meropenem 2 gm every 8 hours (02/27--) Consulted printing plate setter, appreciate recommendations Chest physiotherapy twice daily ordered #Hypoglycemia Patient has episodes of hypoglycemia and has required multiple D50 ampules to maintain blood glucose above 70 throughout hospitalization. Noted to start around 02/22. Per RD, current tube feed of Jevity 1.5 at 68 mL/h would not explain episodes of hypoglycemia. Patient's hypoglycemia appears to be resolving during management in ICU from 02/26-02/27 Plan: 1 L LR 02/26 1 L D10W 02/26 D50 ampules as needed for glucose <70 #Transaminitis, resolving Patient was noted to have AST of 87 and ALT of 90 on 02/23, which is increased from his baseline. Plan: Continue to monitor #SVT, resolved #Sinus tachycardia Patient was noted to have heart rate in the 200s in ED. EKG obtained in ED showed SVT. Patient received 3 doses of adenosine in ED and converted to sinus tachycardia, which later improved with 4 L of IV LR and magnesium. Plan: Continue to monitor via telemetry box Keep potassium above 4 and magnesium above 2 Metoprolol tartrate 100 mg twice daily #JESUS, likely pre-renal, resolving Patient was noted to have a creatinine of 1.2 in the ED. Baseline is noted to be around 0.6. Given that the patient had significant improvement of lactic acidosis in ED, this is likely prerenal secondary to poor fluid intake/administration. Plan: Continue to monitor renal panel Avoid nephrotoxins Renally dose medications Hold TETE/ARB/diuretics #Electrolyte abnormalities #Hyperkalemia, resolved #Hypercalcemia, resolving #Hypomagnesemia, resolved Patient noted to have a potassium 5.8, calcium 11.2, and magnesium 1.2 in ED. Likely secondary to dehydration and malnutrition as patient was noted to significantly improve after being given 4 L LR in ED and appropriately replenished. 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 Patient is aware and does respond to commands. Due to this, the patient is status post tracheostomy and status post PEG tube. Patient is reliant on PEG tube feeds. 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 Plan: Wound care referral ordered Registered dietitian referral ordered, Jevity 1.5 goal rate 68 mL/hr Oral care as needed Keppra 1000 mg twice daily Gabapentin 100 mg 3 times daily Baclofen 20 mg every 6 hours as needed Neurology consulted, appreciate recommendations EEG ordered, pending DVT Prophylaxis: Heparin GI Prophylaxis: Protonix Bowel: N/A Diet: Jevity 1.5 [place]: Yes Lines: Peripheral IV, trach, PEG Antibiotics: Meropenem (02/27--) Code Status: FULL Reason for Hospitalization: Sepsis Other Barriers to Discharge: MRI spine, EEG, Neuro consult Patient plan of care was discussed with attending physician Dr. Dejon Perea, PGY1 Attending Provider Attestation/Addendum I attest that I was physically present for the evaluation, physical examination, lab and imaging review of the patient with the residents. I discussed the case with the residents and agree with the findings and plans of care as documented above. At bedside today, patient appears comfortable, tracks with his eyes, nonverbal. Patient continued to have febrile episode, last 1 being this morning 101.6 ?F. Patient also had drop in his blood pressure, MAP of 54 overnight. Received multiple fluid boluses, about 4 L since this morning. Patient could not complete MRI studies yesterday as he was anticipated to have movement with coughing. We will continue with IV meropenem to cover for bacteria's including Pseudomonas found in his ET secretion studies on multiple visits. Discussed with printing plate setter/pulmonology, noted that patient might be having Pseudomonas pneumonia with sepsis and will most likely need longer course of antibiotics. Echocardiography pending. Sodium level noted to have started going up, free water flushes increased from 50 to 60 cc/h. Continues to be on tube feeding. Noted to be tachycardic this morning held morning dose of metoprolol but we will continue 100 mg twice daily. Blood pressure improved after fluid resuscitation, also is on midodrine 3 times daily. Awaiting EEG results and neurology recommendations. Beth Ashford MD
--- NOTE | 2025-02-28 14:27 | ECHO_ITS ---
Transthoracic Echo Report Ht (in): 72 Wt (lb): 133 Exam Location: Echo Lab Status: Inpatient Advanced Manager: Merissa Tran Indications: Procedure Performed: BP: 102 / 61 HR: 92 MEASUREMENTS (Male / Female) Normal Values 2D ECHO LV Diastolic Diameter PLAX 5.3 cm 4.2 - 5.9 / 3.9 - 5.3 cm LV Systolic Diameter PLAX 3.1 cm IVS Diastolic Thickness 0.7 cm 0.6 - 1.0 / 0.6 - 0.9 cm LVPW Diastolic Thickness 1.1 cm 0.6 - 1.0 / 0.6 - 0.9 cm LV Relative Wall Thickness 0.3 LVOT Diameter 1.9 cm LA Volume Index 32.4 cm?/m? 16 - 28 cm?/m? Ascending Aorta Diameter 2.2 cm DOPPLER AV Peak Velocity 167.0 cm/s AV Peak Gradient 11.2 mmHg AV Mean Gradient 6.0 mmHg AV Velocity Time Integral 34.2 cm LVOT Peak Velocity 117.0 cm/s LVOT Peak Gradient 5.5 mmHg LVOT Velocity Time Integral 23.7 cm LVOT Cardiac Index 3563.5 cm?/min?m? AV Area Cont Eq vti 2.0 cm? AV Area Cont Eq pk 2.0 cm? MV Area PHT 4.0 cm? Mitral E Point Velocity 80.0 cm/s Mitral A Point Velocity 82.0 cm/s Mitral E to A Ratio 1.0 LV E' Lateral Velocity 16.2 cm/s Mitral E to LV E' Lateral Ratio 4.9 LV E' Septal Velocity 11.9 cm/s Mitral E to LV E' Septal Ratio 6.7 TR Peak Velocity 253.7 cm/s TR Peak Gradient 25.7 mmHg PV Peak Velocity 102.0 cm/s PV Peak Gradient 4.2 mmHg FINDINGS Left Ventricle Normal left ventricular size, wall thickness, systolic function with no obvious regional wall motion abnormalities. Normal left ventricular diastolic filling pattern for age. The ejection fraction is visually estimated at 50-55 %. Right Ventricle The right ventricle is normal in size and systolic function. The estimated right ventricular systolic pressure, 32 mmHg with RAP 3 Left Atrium The left atrium is normal by two-dimensional, color flow and Doppler imaging with no structural abnormalities, no thrombus formation present. Right Atrium The right atrium is normal by two-dimensional imaging, color flow and Doppler imaging with no structural abnormalities, no thrombus formation present. Atrial Septum The interatrial septum appears normal with no evidence of a shunt. Aorta The aorta is normal by two-dimensional, color flow and Doppler interrogation. Mitral Valve The mitral valve is normal by two-dimensional, color flow and Doppler interrogation. Mild mitral regurgitation. Aortic Valve The aortic valve is trileaflet and normal by two-dimensional, color flow and Doppler interrogation. There is no significant aortic valve regurgitation. Tricuspid Valve The tricuspid valve is normal by two-dimensional, color flow and Doppler interrogation. There is mild tricuspid valve regurgitation. Pulmonic Valve The pulmonic valve is not well visualized. There is no significant pulmonic valve regurgitation. Vessels The pulmonary artery appears normal. The inferior vena cava pulmonary and hepatic veins appear normal. Pericardium There is a trace pericardial effusion without cardiac tamponade. CONCLUSIONS Indication: r/o endocarditis Normal left ventricular size and function. Approximate ejection fraction is 60% Normal right ventricular size and function. RVSP 32mmHg with RAP 3 NO evidence of vegetations Mild MR and TR without cardiac tamponade. Genevieve Kelley (Electronically Signed) Final Date: 01 March 2025 16:34
--- NOTE | 2025-02-28 14:39 | ESCONSULT_ITS ---
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 failure/ Trach/ Peg, non responsive and with Quadriparesis. He was upgraded to ICU on 02/25 for worsening sepsis, hypoglycemia, and lactic acidosis. Prior to upgrade, patient had heart rate 160s/170s, respiratory rate 40-45, fever of 100 ?F, fingerstick glucose in the 40s, and lactic acid of 9.2. CTA chest was performed, which showed bilateral pneumonia was prominent in the right upper lobe. CT abdomen pelvis that showed right base pneumonia. Patient's antibiotic regimen was switch from cefepime to Zosyn. On 02/27, patient was noted to be spiking fevers, and antibiotic regimen was changed to meropenem. Subclavian central line was placed for better venous access. Final MRI ordered to investigate other sources of infection. Considering lumbar puncture afterwards. EEG was ordered due to considering possible seizures causing the lactic acidosis and acute changes in vital signs. Patient was weaned off pressors and weaned off ventilator support, to which the patient tolerated, prompting downgrade back to medical floors. 02/27 -- >Labs revealed hemoglobin drop from 9.9-7.8. Platelets 77. INR 1.2. ABGs unremarkable chemistry panel unremarkable. Kidney functions normal blood glucose 80. Magnesium 1.4. Sputum culture growing GNR. Blood cultures negative x 48 hours. 02/28/25: Patient was seen and examined in the ICU. Patient does have eye tracking. He was able to follow commands for closing eye. He could not stick out his tongue. Has posturing. Vitals showed unstable blood pressure as low as 83/52 improved to 108/57, heart rate 107, respiratory 37 --> 28 with tracheostomy with blow-by. Patient is nonverbal at baseline with tracheostomy and quadriplegic. He was found to have a PEG tube placed. Patient is on Keppra 1 g twice daily. Labs showed hemoglobin stable at 8.9, platelets 305. Electrolyte panel unremarkable. Kidney function stable. Chest x-ray showed diffuse left lung pneumonia. EEG reveals diffuse slowing with intermittent bursting with suppressed pattern. Therefore recommended to increase dose of Keppra to 1500 mg twice daily and will likely perform EEG on Tuesday on 03/02/2025 to evaluate for follow-up with increased dose of medication. cc:: cc: Beth Ashford MD Review of Systems Review of Systems ROS Unobtainable: unobtainable due to mental status Exam Vital Signs Temp Pulse Resp BP Pulse Ox O2 Del Method O2 Flow Rate 98.6 F 106 H 28 H 108/57 L 96 Blow-by 8 02/28/25 12:00 02/28/25 13:17 02/28/25 13:17 02/28/25 13:15 02/28/25 13:17 02/27/25 16:00 02/28/25 13:17 FiO2 30 02/28/25 13:17 Narrative Exam General: Alert, no acute distress. Nonverbal. Throat: Tracheostomy midline, no bleeding noted. Clear sputum noted in trach tube. CVS: Regular rate and rhythm, no murmur, +S1/S2. Respiratory: Respirations unlabored, diffuse mechanical breath sounds. GI: Soft, nontender, non-distended. No guarding or rebound tenderness. PEG tube in place. Extremities: No edema, no cyanosis, no clubbing. Extremities postured in flexion. Bilateral popliteal fossa leg 4x4 cm dressings, yellow drainage noted from left wound. Neuro: Quadrapleigic, opens eyes spontaneously. Results Labs 02/28/25 05:00 02/28/25 05:00 Labs: Short CBC 02/28/25 Range/Units 05:00 WBC 10.2 D (3.8-10.6) Thou/mm3 Hgb 8.9 L (13.5-16.0) g/dL Hct 28.3 L (41.0-53.0) % Plt Count 305 D (140-440) Thou/mm3 BMP 02/28/25 05:00 Sodium 145 Potassium 3.9 Chloride 106 Carbon Dioxide 22.8 BUN 13 Creatinine 1.1 Glucose 61 L Calcium 10.2 Liver Function 02/28/25 Range/Units 05:00 Total Bilirubin 0.3 (0.3-1.2) mg/dL AST 22 (0-34) U/L ALT 36 (10-49) U/L Alkaline Phosphatase 124 H (46-116) U/L Albumin 3.8 D (3.5-5.0) gm/dL ABG Interpretation ABG results: 02/21/25 02/25/25 02/25/25 23:11 17:38 20:17 ABG pH 7.35 7.43 ABG pCO2 32 33 ABG pO2 39 L* 169 H D ABG HCO3 18 L 22 ABG O2 Saturation 68 L 101 H ABG Base Excess -7 L -2 VBG pH 7.50 VBG pCO2 30 L VBG pO2 66 H VBG Base Excess 1 02/26/25 04:07 ABG pH 7.45 ABG pCO2 31 L ABG pO2 146 H D ABG HCO3 21 ABG O2 Saturation 100 H ABG Base Excess -3 VBG pH VBG pCO2 VBG pO2 VBG Base Excess Quality Measures Quality Measures VTE prophylaxis (Heparin sc) Medications Home Medications and Allergies Allergies Allergy/AdvReac Type Severity Reaction Status Date / Time No Known Allergies Allergy Unverified 10/23/24 09:16 Visit Medications Albuterol/Ipratropium (Albuterol/Ipratropium (Duoneb) Rt [place] 3 Ml Nebu) 3 ml INH Q6HRRT [facility] [place] Stop: 03/24/25 12:59 Last Admin: 02/28/25 13:17 Dose: 3 ml Atropine Sulfate (Atropine Sulf Inj 0.1 Mg/Ml Syr 10 Ml) 0.5 mg IVP Q3MIN PRN PRN Reason: heart rate <45 Baclofen (Baclofen 10 Mg Tablet) 20 mg GT Q6HR PRN; Protocol PRN Reason: Spasms Stop: 03/24/25 07:40 Last Admin: 02/23/25 03:12 Dose: 20 mg Gabapentin 100 mg/ Gabapentin (300 mg) 400 mg GT TID [facility] [place] Stop: 03/27/25 21:59 Last Admin: 02/28/25 05:47 Dose: 400 mg Guaifenesin (Guaifenesin Syrup 200 Mg/10 Ml Udc) 200 mg PO QID RADHA; Protocol Stop: 03/27/25 20:59 Last Admin: 02/28/25 12:16 Dose: 200 mg Heparin Sodium (Porcine) (Heparin Sod Inj 5000 Unit/Ml Vial) 5,000 unit SC BID [facility] [place] Stop: 03/08/25 08:59 Last Admin: 02/28/25 08:55 Dose: 5,000 unit Meropenem 2,000 mg/ Sodium (Chloride) 100 mls @ 100 mls/hr IV Q8HR [facility] [place] Stop: 03/06/25 13:59 Last Admin: 02/28/25 13:42 Dose: 100 mls/hr Lactated Ringer's (Lactated Ringers) 500 mls @ 125 mls/hr IV .Q4H ONE Stop: 02/28/25 14:45 Last Admin: 02/28/25 13:33 Dose: 125 mls/hr Norepinephrine/Dextrose (Levophed In D5w 8mg/250ml) 8 mg in 250 mls @ 5.672 mls/hr IV .Q24H PRN; Protocol PRN Reason: PER PROTOCOL Stop: 03/30/25 12:24 Last Admin: 02/28/25 12:32 Dose: 0.05 mcg/kg/min, 5.672 mls/hr Levetiracetam (Levetiracetam 250 Mg Tablet) 1,000 mg GT BID [facility] [place] Stop: 03/24/25 08:59 Last Admin: 02/28/25 08:38 Dose: 1,000 mg Metoprolol Tartrate (Metoprolol Tartrate 25 Mg Tablet) 100 mg GT BID [facility] [place] Stop: 03/25/25 08:59 Last Admin: 02/27/25 22:30 Dose: 100 mg Midodrine (Midodrine 5 Mg Tablet) 5 mg GT TID PRN PRN Reason: Systolic BP <90 Stop: 03/24/25 13:59 Last Admin: 02/26/25 15:48 Dose: 5 mg Ondansetron HCl (Ondansetron Inj 2 Mg/Ml Inj 2 Ml) 4 mg IVP Q6H PRN; Protocol PRN Reason: NAUSEA OR VOMITING Stop: 03/23/25 23:13 Last Admin: 02/28/25 13:30 Dose: 4 mg Pantoprazole Sodium (Pantoprazole Inj 40 Mg Vial) 40 mg IVP QDAY [facility] [place] Stop: 03/24/25 08:59 Last Admin: 02/28/25 08:38 Dose: 40 mg Sodium Chloride (Sodium Chloride Rt [place] 0.9% 3 Ml Nebu) 3 ml INH PRN PRN PRN Reason: SOLN Stop: 03/27/25 18:50 Sodium Chloride (Sodium Cl Rt [place] 3% 4 Ml Nebu (Non-Formulary)) 4 ml INH PRN PRN PRN Reason: SECRETIONS Stop: 03/29/25 07:06 Discontinued Medications Acetaminophen (Acetaminophen 325 Mg Tablet) 650 mg PO Q6H PRN PRN Reason: PAIN SCALE 1-3 (mild Stop: 03/23/25 23:13 Acetaminophen (Acetaminophen 325 Mg Tablet) 650 mg PO Q6H PRN PRN Reason: Fever >100.4 Stop: 03/23/25 23:13 Hydrocodone Bitart/Acetaminophen (Hydrocodone/Apap 10/325 Tab) 1 tab PO Q4HR PRN PRN Reason: PAIN SCALE 7-10 (Severe Stop: 02/26/25 23:13 Hydrocodone Bitart/Acetaminophen (Hydrocodone/Apap 10/325 Tab) 1 tab GT Q4HR PRN PRN Reason: PAIN SCALE 7-10 (Severe Stop: 02/26/25 23:13 Adenosine (Adenosine Inj 3 Mg/Ml Vial) 6 mg IVP X1 ONE Stop: 02/21/25 22:50 Last Admin: 02/21/25 23:18 Dose: 6 mg Adenosine (Adenosine Inj 3 Mg/Ml Vial) 12 mg IVP X1 ONE Stop: 02/21/25 22:50 Last Admin: 02/21/25 23:22 Dose: 12 mg Adenosine (Adenosine Inj 3 Mg/Ml Vial) 12 mg IVP X1 ONE Stop: 02/21/25 23:23 Last Admin: 02/21/25 23:29 Dose: 12 mg Albuterol (Albuterol Rt 2.5 Mg/0.5 Ml Nebu) 5 mg INH X1 ONE Stop: 02/25/25 18:08 Last Admin: 02/25/25 19:07 Dose: Not Given Albuterol (Albuterol Rt 2.5 Mg/0.5 Ml Nebu) 2.5 mg INH X1 ONE Stop: 02/25/25 18:52 Last Admin: 02/25/25 19:06 Dose: Not Given Amoxicillin/Clavulanate Potassium (Amoxicillin/Pot Clav 875 Tablet) 1 tab GT BID RADHA Stop: 03/04/25 14:29 Last Admin: 02/25/25 15:22 Dose: 1 tab Atropine Sulfate (Atropine Sulf Inj 1 Mg/Ml Vial) 1 mg IV X1 ONE Stop: 02/26/25 00:05 Last Admin: 02/26/25 00:04 Dose: 1 mg Atropine Sulfate (Atropine Sulf Inj 1 Mg/Ml Vial) 0.5 mg IVP Q3MIN PRN PRN Reason: bradicardia Atropine Sulfate (Atropine Sulf Inj 1 Mg/Ml Vial) 0.5 mg IVP Q3MIN PRN PRN Reason: heart rate <45 Dextrose (Dextrose 50%-Water Inj 50 Ml Syringe) 50 ml IVP X1 ONE Stop: 02/22/25 08:15 Last Admin: 02/22/25 08:22 Dose: 50 ml Dextrose (Dextrose 50%-Water Inj 50 Ml Syringe) 50 ml IVP X1 ONE Stop: 02/22/25 11:34 Last Admin: 02/22/25 12:06 Dose: 50 ml Dextrose (Dextrose 50%-Water Inj 50 Ml Syringe) 50 ml IVP X1 ONE Stop: 02/22/25 14:04 Last Admin: 02/22/25 14:11 Dose: 50 ml Dextrose (Dextrose 50%-Water Inj 50 Ml Syringe) 25 ml IVP X1 ONE Stop: 02/22/25 15:52 Last Admin: 02/22/25 16:27 Dose: 25 ml Dextrose (Dextrose 50%-Water Inj 50 Ml Syringe) 25 ml IVP X1 ONE Stop: 02/22/25 17:31 Last Admin: 02/22/25 17:34 Dose: 25 ml Dextrose (Dextrose 50%-Water Inj 50 Ml Syringe) 50 ml IVP X1 ONE Stop: 02/23/25 12:54 Last Admin: 02/23/25 13:15 Dose: 50 ml Dextrose (Dextrose 50%-Water Inj 50 Ml Syringe) 25 ml IV X1 ONE Stop: 02/25/25 06:16 Last Admin: 02/25/25 06:19 Dose: 25 ml Dextrose (Dextrose 50%-Water Inj 50 Ml Syringe) 50 ml IVP X1 ONE Stop: 02/25/25 15:59 Last Admin: 02/25/25 16:00 Dose: 50 ml Dextrose (Dextrose 50%-Water Inj 50 Ml Syringe) 50 ml IVP X1 ONE Stop: 02/25/25 16:37 Last Admin: 02/25/25 16:42 Dose: 50 ml Dextrose (Dextrose 50%-Water Inj 50 Ml Syringe) 50 ml IVP X1 ONE Stop: 02/25/25 17:23 Last Admin: 02/25/25 17:15 Dose: 50 ml Dextrose (Dextrose 50%-Water Inj 50 Ml Syringe) 50 ml IVP X1 ONE Stop: 02/25/25 18:01 Last Admin: 02/25/25 18:10 Dose: Not Given Dextrose (Dextrose 50%-Water Inj 50 Ml Syringe) 50 ml IVP X1 ONE Stop: 02/25/25 21:03 Last Admin: 02/25/25 20:25 Dose: 50 ml Dextrose (Dextrose 50%-Water Inj 50 Ml Syringe) 50 ml IVP X1 ONE Stop: 02/28/25 05:42 Last Admin: 02/28/25 05:47 Dose: 50 ml Fentanyl Citrate (Fentanyl Cit Inj 50 Mcg/Ml Amp 2ml) 100 mcg IVP X1 ONE Stop: 02/25/25 19:48 Last Admin: 02/25/25 20:01 Dose: 100 mcg Gabapentin (Gabapentin 300 Mg Capsule) 300 mg GT TID [facility]HA Stop: 03/24/25 07:44 Last Admin: 02/25/25 14:18 Dose: 300 mg Gabapentin (Gabapentin 300 Mg Capsule) 400 mg GT TID [facility]HA Stop: 03/27/25 21:59 Last Admin: 02/26/25 16:27 Dose: Not Given Glucagon (Glucagon Inj 1 Mg Vial) 1 mg SC X1 ONE Stop: 02/25/25 18:01 Last Admin: 02/25/25 18:08 Dose: 1 mg Glucagon (Glucagon Inj 1 Mg Vial) 1 mg SC X1 ONE Stop: 02/25/25 18:30 Last Admin: 02/25/25 18:35 Dose: 1 mg Acetaminophen (Ofirmev Inj) 1,000 mg in 100 mls @ 250 mls/hr IV X1 ONE Stop: 02/21/25 20:31 Last Infusion: 02/21/25 21:07 Dose: Infused Piperacillin/Tazobactam/Dextrose (Zosyn) 3.375 gm in 50 mls @ 100 mls/hr IV X1 ONE Stop: 02/21/25 20:37 Last Infusion: 02/21/25 21:07 Dose: Infused Lactated Ringer's (Lactated Ringers) 1,000 mls @ 999 mls/hr IV .Q1H1M ONE Stop: 02/21/25 21:16 Last Infusion: 02/21/25 21:26 Dose: Infused Lactated Ringer's (Lactated Ringers) 1,000 mls @ 999 mls/hr IV .Q1H1M ONE Stop: 02/21/25 21:37 Last Infusion: 02/21/25 22:29 Dose: Infused Vancomycin/Sodium Chloride (Vancomycin/Ns 1 Gm Ivpb) 200 mls @ 120 mls/hr IV X1 ONE Stop: 02/21/25 22:17 Last Infusion: 02/21/25 22:53 Dose: Infused Lactated Ringer's (Lactated Ringers) 1,000 mls @ 999 mls/hr IV .Q1H1M ONE Stop: 02/21/25 23:29 Last Infusion: 02/22/25 01:07 Dose: Infused Fluconazole (Diflucan/Ns Ivpb) 400 mg in 200 mls @ 100 mls/hr IV X1 ONE Stop: 02/22/25 00:59 Last Infusion: 02/22/25 03:12 Dose: Infused Magnesium Sulfate (Magnesium Sulfate Ivpb) 4 gm in 50 mls @ 12.5 mls/hr IV X1 ONE Stop: 02/22/25 03:01 Last Infusion: 02/22/25 03:12 Dose: Infused Acyclovir Sodium 585 mg/ (Sodium Chloride) 111.7 mls @ 100 mls/hr IV Q8HR RADHA Stop: 02/28/25 23:31 Last Admin: 02/22/25 01:07 Dose: Not Given Lactated Ringer's (Lactated Ringers) 1,000 mls @ 999 mls/hr IV .Q1H1M ONE Stop: 02/22/25 00:39 Last Infusion: 02/22/25 01:07 Dose: Infused Acetaminophen (Ofirmev Inj) 1,000 mg in 100 mls @ 250 mls/hr IV Q6HR RADHA Stop: 02/22/25 12:23 Last Admin: 02/22/25 06:22 Dose: Not Given Acyclovir Sodium 500 mg/ (Sodium Chloride) 110 mls @ 100 mls/hr IV Q8HR RADHA Stop: 03/01/25 05:59 Last Admin: 02/24/25 00:34 Dose: Not Given Acyclovir Sodium 500 mg/ (Sodium Chloride) 110 mls @ 100 mls/hr IV X1 ONE Stop: 02/22/25 03:35 Last Infusion: 02/22/25 04:15 Dose: Infused Ceftriaxone Sodium 2 gm/ (Sodium Chloride) 50 mls @ 100 mls/hr IV Q12HR RADHA Stop: 03/01/25 20:59 Ceftriaxone Sodium 2 gm/ (Sodium Chloride) 50 mls @ 100 mls/hr IV X1 ONE Stop: 02/22/25 05:29 Last Infusion: 02/22/25 05:58 Dose: Infused Vancomycin/Sodium Chloride (Vancomycin/Ns 1 Gm Ivpb) 200 mls @ 120 mls/hr IV X1 ONE Stop: 02/22/25 07:39 Last Infusion: 02/22/25 07:35 Dose: Infused Vancomycin/Sodium Chloride (Vancomycin/Ns 750 Mg Ivpb) 750 mg in 150 mls @ 120 mls/hr IV Q12H RADHA Stop: 03/01/25 21:59 Last Admin: 02/23/25 21:52 Dose: 120 mls/hr Cefepime HCl 2 gm/ Sodium (Chloride) 50 mls @ 100 mls/hr IV Q8HR RADHA Stop: 03/01/25 07:14 Last Admin: 02/25/25 19:07 Dose: Not Given Acetaminophen (Ofirmev Inj) 1,000 mg in 100 mls @ 250 mls/hr IV Q6HR PRN; Protocol PRN Reason: Fever >100.4 or Pain Last Admin: 02/23/25 09:22 Dose: 250 mls/hr Dextrose/Sodium Chloride (D5-Ns) 1,000 mls @ 70 mls/hr IV .[id number] RADHA Stop: 02/22/25 21:47 Last Infusion: 02/22/25 16:30 Dose: 100 mls/hr Dextrose (D10w) 500 mls @ 100 mls/hr IV .Q5H RADHA Stop: 03/24/25 17:30 Last Admin: 02/24/25 00:35 Dose: Not Given Dextrose (D10w 1000 Ml) 1,000 mls @ 100 mls/hr IV .Q10H RADHA Stop: 03/24/25 17:30 Last Admin: 02/24/25 00:35 Dose: Not Given Dextrose (D10w 1000 Ml) 1,000 mls @ 150 mls/hr IV .Q6H40M RADHA Stop: 03/25/25 05:29 Last Admin: 02/23/25 07:12 Dose: 150 mls/hr Magnesium Sulfate (Magnesium Sulfate Ivpb) 4 gm in 50 mls @ 12.5 mls/hr IV X1 ONE Stop: 02/23/25 11:15 Last Admin: 02/23/25 08:44 Dose: 12.5 mls/hr Lactated Ringer's (Lactated Ringers) 1,000 mls @ 125 mls/hr IV .Q8H ONE Stop: 02/23/25 15:17 Last Admin: 02/23/25 08:43 Dose: 125 mls/hr Dextrose/Lactated Ringer's (D5-Lr) 1,000 mls @ 125 mls/hr IV .Q8H [facility] [place] Stop: 03/25/25 12:59 Last Admin: 02/26/25 08:20 Dose: Not Given Magnesium Sulfate (Magnesium Sulfate Ivpb) 2 gm in 50 mls @ 25 mls/hr IV X1 ONE Stop: 02/24/25 09:47 Last Admin: 02/24/25 08:11 Dose: 25 mls/hr Dextrose/Sodium Chloride (D5-Ns) 500 mls @ 75 mls/hr IV .Q6H40M [facility] [place] Stop: 02/25/25 05:39 Last Admin: 02/26/25 11:54 Dose: Not Given Dextrose/Sodium Chloride (D5-Ns) 500 mls @ 75 mls/hr IV .Q6H40M [facility] [place] Stop: 02/25/25 06:09 Last Infusion: 02/25/25 06:15 Dose: Infused Magnesium Sulfate (Magnesium Sulfate Ivpb) 4 gm in 50 mls @ 12.5 mls/hr IV X1 ONE Stop: 02/25/25 11:34 Last Admin: 02/25/25 09:51 Dose: 12.5 mls/hr Dextrose (D10w 1000 Ml) 1,000 mls @ 50 mls/hr IV .Q20H [facility] [place] Stop: 02/26/25 12:36 Last Admin: 02/25/25 16:48 Dose: 50 mls/hr Lactated Ringer's (Lactated Ringers) 500 mls @ 999 mls/hr IV .Q31M ONE Stop: 02/25/25 17:36 Last Infusion: 02/25/25 19:08 Dose: Infused Lactated Ringer's (Lactated Ringers) 500 mls @ 999 mls/hr IV .Q31M ONE Stop: 02/25/25 17:53 Last Infusion: 02/25/25 19:08 Dose: Infused Lactated Ringer's (Lactated Ringers) 1,000 mls @ 999 mls/hr IV .Q1H1M ONE Stop: 02/25/25 18:35 Last Infusion: 02/25/25 19:08 Dose: Infused Cefepime HCl 2 gm/ Sodium (Chloride) 50 mls @ 100 mls/hr IV Q8HR RADHA Stop: 03/04/25 17:35 Last Admin: 02/25/25 18:14 Dose: 100 mls/hr Vancomycin HCl (Vancomycin/Water 1250 Mg Ivpb) 250 mls @ 120 mls/hr IV X1 ONE Stop: 02/25/25 19:39 Last Admin: 02/25/25 18:35 Dose: 120 mls/hr Piperacillin Sod/Tazobactam (Sod 4.5 gm/ Sodium Chloride) 100 mls @ 200 mls/hr IV Q6HR RADHA Stop: 03/04/25 18:43 Last Admin: 02/27/25 12:14 Dose: 200 mls/hr Fentanyl Citrate (Sublimaze Inj 2,500 Mcg/250 Ml Bag) 2,500 mcg in 250 mls @ 2.5 mls/hr IV .Q24H PRN; Protocol PRN Reason: PER PROTOCOL Stop: 03/02/25 19:17 Last Titration: 02/26/25 01:00 Dose: 0 mcg/hr, 0 mls/hr Norepinephrine Bitartrate (Levophed In Ns 16mg/250ml) 16 mg in 250 mls @ 2.743 mls/hr IV .Q24H PRN; Protocol PRN Reason: PER PROTOCOL Stop: 03/27/25 20:03 Midazolam HCl (Versed Pf Inj In Ns Premix) 100 mg in 100 mls @ 1 mls/hr IV .Q24H PRN; Protocol PRN Reason: PER PROTOCOL Stop: 03/02/25 20:06 Vasopressin/Sodium Chloride (Vasostrict/Ns Ivpb) 20 unit in 100 mls @ 9 mls/hr IV .Q11H7M PRN; Protocol PRN Reason: PER PROTOCOL Stop: 03/27/25 20:40 Last Titration: 02/26/25 06:00 Dose: 0 unit/min, 0 mls/hr Norepinephrine/Dextrose (Levophed In D5w 8mg/250ml) 8 mg in 250 mls @ 5.485 mls/hr IV .Q24H PRN; Protocol PRN Reason: PER PROTOCOL Stop: 03/27/25 20:47 Last Titration: 02/27/25 03:12 Dose: 0 mcg/kg/min, 0 mls/hr Vancomycin/Sodium Chloride (Vancomycin/Ns 1 Gm Ivpb) 200 mls @ 120 mls/hr IV BID@1000,2200 RADHA; Protocol Stop: 03/05/25 09:59 Last Admin: 02/26/25 21:43 Dose: 120 mls/hr Sodium Chloride (Ns) 250 mls @ 999 mls/hr IV .Q16M ONE Stop: 02/26/25 15:44 Last Admin: 02/26/25 15:37 Dose: 999 mls/hr Magnesium Sulfate (Magnesium Sulfate Ivpb) 4 gm in 50 mls @ 12.5 mls/hr IV X1 ONE Stop: 02/27/25 11:16 Last Infusion: 02/27/25 11:23 Dose: Infused Ciprofloxacin/Dextrose (Cipro Ivpb) 400 mg in 200 mls @ 200 mls/hr IV Q12HR RADHA Stop: 03/06/25 09:06 Last Admin: 02/27/25 22:30 Dose: 200 mls/hr Levofloxacin/Dextrose (Levaquin Ivpb) 750 mg in 150 mls @ 100 mls/hr IV QDAY RADHA Stop: 03/07/25 08:59 Last Admin: 02/28/25 08:37 Dose: 100 mls/hr Lactated Ringer's (Lactated Ringers) 500 mls @ 100 mls/hr IV .Q5H ONE Stop: 02/28/25 13:07 Last Admin: 02/28/25 11:41 Dose: 100 mls/hr Lactated Ringer's (Lactated Ringers) 500 mls @ 999 mls/hr IV .Q31M ONE Stop: 02/28/25 13:30 Lactated Ringer's (Lactated Ringers) 1,000 mls @ 999 mls/hr IV .Q1H1M ONE Stop: 02/28/25 12:15 Last Admin: 02/28/25 11:46 Dose: 999 mls/hr Lactated Ringer's (Lactated Ringers) 1,000 mls @ 999 mls/hr IV .Q1H1M ONE Stop: 02/28/25 12:55 Last Admin: 02/28/25 12:13 Dose: 999 mls/hr Ibuprofen (Ibuprofen Susp 100 Mg/5 Ml Udc) 600 mg PO X1 ONE Stop: 02/21/25 20:33 Last Admin: 02/21/25 20:49 Dose: 600 mg Levalbuterol HCl (Levalbuterol Rt 0.63 Mg/3 Ml Nebu) 0.63 mg INH X1 ONE Stop: 02/25/25 20:02 Last Admin: 02/25/25 20:12 Dose: 0.63 mg Levalbuterol HCl (Levalbuterol Rt 0.63 Mg/3 Ml Nebu) 0.63 mg INH X1 ONE Stop: 02/25/25 20:06 Last Admin: 02/25/25 20:13 Dose: Not Given Levofloxacin (Levofloxacin 250 Mg Tablet) 750 mg GT X1 ONE Stop: 02/25/25 14:21 Last Admin: 02/25/25 15:21 Dose: 750 mg Metoprolol Tartrate (Metoprolol Tartrate Inj 1 Mg/Ml Amp 5 Ml) 5 mg IVP X1 ONE Stop: 02/21/25 20:09 Last Admin: 02/21/25 20:26 Dose: 5 mg Metoprolol Tartrate (Metoprolol Tartrate 25 Mg Tablet) 100 mg GT BID RADHA Stop: 03/24/25 08:59 Last Admin: 02/22/25 08:40 Dose: Not Given Metoprolol Tartrate (Metoprolol Tartrate 25 Mg Tablet) 50 mg GT BID RADHA Stop: 03/24/25 12:29 Last Admin: 02/22/25 21:17 Dose: 50 mg Metoprolol Tartrate (Metoprolol Tartrate Inj 1 Mg/Ml Amp 5 Ml) 2 mg IVP X1 ONE Stop: 02/25/25 16:47 Last Admin: 02/25/25 16:53 Dose: 2 mg Midazolam HCl (Midazolam Inj 1 Mg/Ml Vial 2 Ml) 9 mg 0.15 mg/kg (9 mg) IVP X1 ONE Stop: 02/25/25 17:22 Last Admin: 02/25/25 17:37 Dose: Not Given Midazolam HCl (Midazolam Inj 1 Mg/Ml Vial 2 Ml) 9 mg 0.15 mg/kg (9 mg) IVP X1 ONE Stop: 02/25/25 20:08 Last Admin: 02/25/25 20:46 Dose: 9 mg Morphine Sulfate (Morphine Sulf Liqd 10 Mg/5 Ml Udc) 2 mg GT Q8HR PRN; Protocol PRN Reason: 30 minutes before wound care Stop: 02/28/25 10:05 Last Admin: 02/25/25 15:46 Dose: 2 mg Morphine Sulfate (Morphine Sulf Inj 4 Mg/Ml Vial) 2 mg IVP X1 ONE Stop: 02/25/25 16:28 Last Admin: 02/25/25 16:35 Dose: 2 mg Morphine Sulfate (Morphine Sulf Inj 4 Mg/Ml Vial) 2 mg IVP X1 ONE Stop: 02/25/25 16:51 Last Admin: 02/25/25 16:57 Dose: 2 mg Morphine Sulfate (Morphine Sulf Inj 4 Mg/Ml Vial) 2 mg IVP X1 ONE Stop: 02/25/25 17:42 Last Admin: 02/25/25 17:55 Dose: 2 mg Oxycodone/Acetaminophen (Oxycodone/Apap 5/325 Tablet) 1 tab PO Q6H PRN PRN Reason: PAIN SCALE 4-6 (Moderate Stop: 02/26/25 23:13 Oxycodone/Acetaminophen (Oxycodone/Apap 5/325 Tablet) 1 tab GT Q6H PRN PRN Reason: PAIN SCALE 4-6 (Moderate Stop: 02/26/25 23:13 Pharmacy Consult (Vancomycin Pharmacy To Dose 1 Each Each) 1 each IV QDAY PRN PRN Reason: PROTOCOL Stop: 03/24/25 08:59 Pharmacy Consult (Vancomycin Pharmacy To Dose 1 Each Each) 1 each IV QDAY RADHA Stop: 03/28/25 08:59 Last Admin: 02/27/25 08:03 Dose: Not Given Potassium Chloride (Potassium Chloride 10% 20 Meq/15 Ml Udc) 40 meq GT X1 ONE Stop: 02/24/25 07:47 Last Admin: 02/24/25 08:11 Dose: 40 meq Potassium Chloride (Potassium Chloride 10% 20 Meq/15 Ml Udc) 20 meq GT X1 ONE Stop: 02/24/25 07:47 Last Admin: 02/24/25 08:11 Dose: 20 meq Potassium Chloride (Potassium Chloride 10% 20 Meq/15 Ml Udc) 40 meq GT X1 ONE Stop: 02/25/25 07:35 Last Admin: 02/25/25 09:40 Dose: 40 meq Potassium Chloride (Potassium Chloride 10% 20 Meq/15 Ml Udc) 40 meq GT X1 ONE Stop: 02/25/25 23:52 Last Admin: 02/26/25 00:44 Dose: 40 meq Rocuronium [place] (Rocuronium Inj 10 Mg/Ml Vial 10 Ml) 59 mg 1 mg/kg (59 mg) IV X1 ONE Stop: 02/25/25 20:10 Last Admin: 02/25/25 22:20 Dose: Not Given Sodium Bicarbonate (Sodium Bicarb Inj 8.4% Syr 50 Ml Syringe) 50 ml IV X1 ONE Stop: 02/21/25 23:50 Last Admin: 02/22/25 00:34 Dose: 50 ml Sodium Chloride (Sodium Chloride Rt 10% 15 Ml Nebu) 5 ml INH X1 ONE Stop: 02/22/25 07:23 Last Admin: 02/22/25 11:23 Dose: Not Given Sodium Chloride (Sodium Cl Rt [place] 3% 4 Ml Nebu (Non-Formulary)) 4 ml INH Q8HRRT RADHA Stop: 03/24/25 07:29 Last Admin: 02/24/25 00:35 Dose: Not Given Sodium Chloride (Sodium Cl Rt [place] 3% 4 Ml Nebu (Non-Formulary)) 4 ml INH Q6HRRT RADHA Stop: 03/24/25 12:59 Last Admin: 02/27/25 08:16 Dose: Not Given Sodium Chloride (Sodium Chloride Rt 10% 15 Ml Nebu) 5 ml INH X1 ONE Stop: 02/25/25 19:21 Last Admin: 02/25/25 22:18 Dose: Not Given Sodium Polystyrene Sulfonate (Sod Polystyrene Sulfon Susp 15 Gm/60 Ml Btl) 15 gm PO X1 ONE Stop: 02/25/25 19:38 Last Admin: 02/25/25 21:27 Dose: 15 gm Assessment & Plan Plan Mr. 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 Patient was admitted for sepsis workup. Patient was upgraded to ICU on 02/25 for additional management of worsening sepsis, hypoglycemia, and lactic acidosis. Patient was downgraded to medical floors on 02/27 given stability. #History of cocaine induced crebral vasculitis #s/p tracheostomy #s/p PEG tube #History of quadriparesis with spastic contractures #Seizures, with diffuse slowing and intermittent bursting with suppressed pattern Patient is noted to have a history of cocaine induced vasculitis, which to encephalopathy and a chronic vegetative state. Patient is aware and does respond to commands. Due to this, the patient is status post tracheostomy and status post PEG tube. Patient is reliant on PEG tube feeds. 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 Elevated CK 529 EEG reveals diffuse slowing with intermittent bursting with suppressed pattern. Therefore recommended to increase dose of Keppra to 1500 mg twice daily and will likely perform EEG on Tuesday on 03/02/2025 to evaluate for follow-up with increased dose of medication. Plan: increase dose of Keppra to 1500 mg twice daily and will likely perform EEG on Tuesday on 03/02/2025 to evaluate for follow-up with increased dose of medication. Gabapentin 100 mg 3 times daily Baclofen 20 mg every 6 hours as needed #Sepsis likely sec to #Ventilator associated pneumonia vs #Health acquired pneumonia Plan: Continue meropenem. Follow up with EEG, MRI lumbar spine, MRI thoracic spine. #HAGMA, resolved, 2/2 #Lactic acidosis, resolved #Hypoglycemia, resolving #Transaminitis, resolving #SVT, resolved #Sinus tachycardia #JESUS, likely pre-renal, resolving #Electrolyte abnormalities #Hyperkalemia, resolved #Hypercalcemia, resolving #Hypomagnesemia, resolved #History of sacral and bilateral popliteal fossa ulcers Rest of the management as per primary care team. Case was discussed with neurologist, Dr Grant Beasley MD, PGY 3
--- NOTE | 2025-02-28 14:42 | PC.NURSE ---
Took over this pt at 13:45 from ICU. Report given from abril.
--- NOTE | 2025-02-28 14:57 | PC.SS ---
Rounding Note: Patient is Trach/PEG. Patient has fever, plan is for sepsis work up. Echo and MRI are pending.
[2025-02-28] MEDS: RINGERS LACTATED 500 ML 500 ML 999 ML IV (17:00)
--- NOTE | 2025-02-28 17:56 | ESPR_ITS ---
<Statement entered by Casey Wallace MD - 03/01/25 10:53> TOTAL CC TIME: 45 MIN I saw and evaluated the patient. I reviewed the resident?s note and agree with findings and plan as documented in the resident?s note. Upon my evaluation, this patient had a high probability of imminent or life- threatening deterioration due to septic shock, which required my direct attention, intervention, and personal management. This time is exclusive of time spent on procedures, which are documented separately if performed. Multiple imaging studies including CT scan of the chest were reviewed. 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 [place] of pneumonic infiltrates is dramatically worse on this admission compared to his May CT scan. Diffuse tree-in-bud infiltrates as well as areas of bronchial thickening or identified. The patient has increasing progressive purulent green sputum production which is become much worse in the last couple days. He was previously on cefepime but then switched to meropenem by the hospitalist service after his condition became worse. Persistent fevers are identified. Continue current antibiotics. Aggressive IV fluid resuscitation was required and helpful at improving the blood pressure. Vasopressors were required. The patient will likely benefit from chronic suppressive antipseudomonal therapy after acute pneumonia has been resolved. Documentation for date of: 02/28/25 Subjective Subjective Interval history: Interval history: Patient is a 29 years old male with past medical history of cocaine induced cerebral vasculitis, seizures, anemia, chronic respiratory failure status post tracheostomy, status post PEG tube, nonresponsive with quadriparesis admitted from subacute facility on 02/21/2025 for sepsis 2/2 pneumonia. Patient was recently discharged from inpatient for sepsis secondary to ventilator related pneumonia and cellulitis of the leg, was discharged 3 days prior to current admission. He was started on IV cefepime with significant improvement of his condition. Sputum cultures showed ESBL klebsiella, pseudomonas and proteus. Today he was planned for discharge, switched to PO Augmentin and levofloxacin. However, NETTING WEAVER was called today due to tachycardia, tachypnea and diaphoresis. Vitals showed HR in 160-170s and regular, RR 40-45, BP 105/73, oxygen saturation 100% on blow by, fever of 104 F. Fingerstick glucose was 40s. Labs showed worsening bicarb 15.1, potassium 5.7, anion gap 20, glucose 181, LA 9.2, otherwise no significant lab changes. VBG showed pCO2 32, pH 7.35. EKG showed sinus tachycardia. CXR showed significant left upper lobe pneumonia. CTA and CTAP were ordered by primary team. Patient was upgraded to ICU for further management. Interval History 02/26/25: Patient was examined at bedside; he has a tracheostomy tube in place and his eyes flutter open in response to voice. Pertinent labs today include ABG pH 7.45, pCO2 31, pCO2 146, HCO3 21, anion gap downtrended to 13 from 20, lactic acid down trended to 0.7 from 9.2, and all other labs within normal limits. 02/26 chest CTA showed bilateral pneumonia that is most prominent in the right upper lobe, mild hilar lymphadenopathy, endotracheal tube tip at 4 cm above nahid, and no findings suggestive for pulmonary artery emboli. 02/26 CTAP showed right base pneumonia with no pericecal inflammatory change. Based on sputum cultures, patient's antibiotic regimen was switched from cefepime to Zosyn. Plan is to continue antibiotics to treat patient's pneumonia and sepsis, and to wean patient off of ventilatory support and sedation before he can be downgraded. 02/27/25: Patient was examined at bedside; he was awake and seems responsive to voice and aware of this health underwriter's presence. Pertinent labs today include Hgb drop to 7.8 from 9.9 (MCV 86, RDW 77.0, likely hemodilution) and magnesium 1.4. 02/27 CXR shows satisfactory positioning of the tip of the left subclavian central line that was placed today (consent obtained via telephone call from patient's mother, Sara Carmona). Patient's sudden spike in lactic acid levels to 9.2 on 02/25 with rapid return to baseline is suspicious for seizure-like activity; an EEG has been ordered as a result. Patient has also recently been spiking a fever (101.4 today) despite prompt treatment of his ventilator-associated pneumonia or hospital-acquired pneumonia with IV Zosyn and IV vancomycin. Apparently, he has recurrent history of this. His current antibiotic regimen has been switched to IV meropenem and orders for a spinal MRI and possible lumbar tap have been placed to search for possible overlooked nidus for infection (i.e. spinal epidual abscess, meningitis). Patient has stopped being chemically sedated since 06:00 yesterday and has been off of pressors since 5 AM today. Plan to continue IV meropenem for patient's pneumonia and wean him off of ventilatory support before he is stabilized enough to be down-graded. 02/28/25: Per IM team note, patient had an episode of atrial fibrillation overnight in the setting of MAP 54 and fever of 101.4. Patient was examined at bedside; he appears alert, aware, and in no acute distress. He continues to be on tube feeding. Due to patient's soft BPs he was given multiple fluid boluses totaling about 4 L and given midodrine which have improved BPs somewhat. His morning dose of metoprolol was also held due to patient being tachycardic. Spinal MRI to assess for epidural abscess was unable to be completed yesterday due to patient's coughing fits. 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 Therefore, patient will be treated with a longer course of both IV meropenem and IV ciprofloxacin for double coverage of Pseudomonas. Sodium levels have been noted to be uptrending so free water flushes were increased from 50 to 60 cc/hr. Of note, patient was recently down- graded yesterday but the decision to upgrade him back to ICU was made due to ongoing signs of suspected infection and sepsis. Awaiting results from EEG and echocardiography and will reattempt spinal MRI (thoracic, lumbar) when opportune with possibility of lumbar tap. Exam Vital Signs Temp Pulse Resp BP Pulse Ox O2 Del Method O2 Flow Rate 98.6 F 87 28 H 109/64 99 Blow-by 8 02/28/25 12:00 02/28/25 16:00 02/28/25 16:02/28/25 16:02/28/25 16:02/27/25 16:02/28/25 13:17 FiO2 30 02/28/25 13:17 Narrative Exam General: Awake and responsive to voice by eye tracking. Nonverbal. Thin male in no acute distress with tracheostomy. HEENT: NCAT, PERRLA, EOMI, MMM, anicteric conjunctivae. CVS: Regular rate and rhythm. Normal S1 and S2. No M/R/G. Resp: Tracheostomy tube in place with clear sputum noted in lumen. Tachypneic. Coarse breathing B/L. No rhonchi, rales, crackles or wheezing. Abd: PEG tube in place. Soft, non-tender, non-distended. BS+ in all 4 quadrants. MSK: Bilateral popliteal fossa leg 4x4 cm dressings, yellow drainage noted from wounds. Upper and lower extremities are stiff with posturing. Neuro: Limited exam due to medical condition. Objective Labs 03/02/25 04:16 03/02/25 04:16 Labs: Laboratory Results - last 24 hr 02/28/25 05:00 WBC 10.2 D RBC 3.26 L Hgb 8.9 L Hct 28.3 L MCV 87 MCH 27.3 MCHC 31.4 RDW Std Deviation 79.6 H Plt Count 305 D Neut % (Auto) 79 Lymph % (Auto) 12 [place] % (Auto) 9 Eos % (Auto) 0 Baso % (Auto) 0 Neut # (Auto) 8.0 H Lymph # (Auto) 1.2 [place] # (Auto) 0.9 H Eos # (Auto) 0.0 Baso # (Auto) 0.0 Immature Gran # (Auto) 0.02 H Absolute Nucleated RBC 0.00 Immature Gran % 0 Nucleated RBC % 0 Sodium 145 Potassium 3.9 Chloride 106 Carbon Dioxide 22.8 Anion Gap 16 BUN 13 Creatinine 1.1 Estim Creat Clear Calc 85.6 eGFR > 60 BUN/Creatinine Ratio 12 Glucose 61 L Calculated Osmolality 286 Calcium 10.2 Corrected Calcium 10.4 H Phosphorus 3.7 Magnesium 2.0 Total Bilirubin 0.3 AST 22 ALT 36 Alkaline Phosphatase 124 H Total Protein 7.8 Albumin 3.8 D Globulin 4.0 H Albumin/Globulin Ratio 1.0 L Random Vancomycin 8.0 ABG Interpretation ABG results: 02/21/25 02/25/25 02/25/25 23:11 17:38 20:17 ABG pH 7.35 7.43 ABG pCO2 32 33 ABG pO2 39 L* 169 H D ABG HCO3 18 L 22 ABG O2 Saturation 68 L 101 H ABG Base Excess -7 L -2 VBG pH 7.50 VBG pCO2 30 L VBG pO2 66 H VBG Base Excess 1 09/09/25 04:07 ABG pH 7.45 ABG pCO2 31 L ABG pO2 146 H D ABG HCO3 21 ABG O2 Saturation 100 H ABG Base Excess -3 VBG pH VBG pCO2 VBG pO2 VBG Base Excess Quality Measures Quality Measures VTE prophylaxis (Heparin sc) Assessment & Plan Assessment Current Active Medications: Generic Name Dose Route Start Last Admin Trade Name Freq PRN Reason Stop Dose Admin Albuterol/Ipratropium 3 ml 02/22/25 13:00 02/28/25 13:17 Albuterol/Ipratropium (Duoneb) Rt [place] 3 Ml Nebu INH 03/24/25 12:59 3 ml Q6HRRT RADHA Administration Atropine Sulfate 0.5 mg 02/27/25 07:30 Atropine Sulf Inj 0.1 Mg/Ml Syr 10 Ml IVP Q3MIN PRN heart rate <45 Baclofen 20 mg 02/22/25 07:41 02/23/25 03:12 Baclofen 10 Mg Tablet GT 03/24/25 07:40 20 mg Q6HR PRN Administration Spasms Protocol Gabapentin 100 mg/ Gabapentin 400 mg 02/26/25 15:00 02/28/25 14:47 300 mg GT 03/27/25 21:59 Not Given TID RADHA Guaifenesin 200 mg 02/25/25 21:00 02/28/25 17:36 Guaifenesin Syrup 200 Mg/10 Ml Udc PO 03/27/25 20:59 200 mg QID RADHA Administration Protocol Heparin Sodium (Porcine) 5,000 unit 02/22/25 09:00 02/28/25 08:55 Heparin Sod Inj 5000 Unit/Ml Vial SC 03/08/25 08:59 5,000 unit BID RADHA Administration Meropenem 2,000 mg/ Sodium 100 mls @ 100 mls/hr 02/27/25 14:00 02/28/25 13:42 Chloride IV 03/06/25 13:59 100 mls/hr Q8HR RADHA Administration Norepinephrine/Dextrose 8 mg in 250 mls @ 5.672 mls/hr 02/28/25 12:25 02/28/25 16:00 Levophed In D5w 8mg/250ml IV 03/30/25 12:24 0.03 mcg/kg/min .Q24H PRN 3.403 mls/hr PER PROTOCOL Titration Protocol 0.05 MCG/KG/MIN Levetiracetam 1,000 mg 02/22/25 09:00 02/28/25 08:38 Levetiracetam 250 Mg Tablet GT 03/24/25 08:59 1,000 mg BID RADHA Administration Metoprolol Tartrate 100 mg 02/23/25 09:00 02/27/25 22:30 Metoprolol Tartrate 25 Mg Tablet GT 03/25/25 08:59 100 mg BID RADHA Administration Midodrine 5 mg 02/22/25 10:57 02/26/25 15:48 Midodrine 5 Mg Tablet GT 03/24/25 13:59 5 mg TID PRN Administration Systolic BP <90 Ondansetron HCl 4 mg 02/21/25 23:14 02/28/25 13:30 Ondansetron Inj 2 Mg/Ml Inj 2 Ml IVP 03/23/25 23:13 4 mg Q6H PRN Administration NAUSEA OR VOMITING Protocol Pantoprazole Sodium 40 mg 02/22/25 09:00 02/28/25 08:38 Pantoprazole Inj 40 Mg Vial IVP 03/24/25 08:59 40 mg QDAY RADHA Administration Sodium Chloride 3 ml 02/25/25 18:51 Sodium Chloride Rt [place] 0.9% 3 Ml Nebu INH 03/27/25 18:50 PRN PRN SOLN Sodium Chloride 4 ml 02/27/25 07:09 Sodium Cl Rt [place] 3% 4 Ml Nebu (Non-Formulary) INH 03/29/25 07:06 PRN PRN SECRETIONS Plan Patient is a 29 year old male with past medical history of cocaine-induced cerebral vasculitis, seizures, anemia, chronic respiratory failure status post tracheostomy, status post PEG tube, and nonresponsive status with quadriparesis who was initially admitted from subacute facility on 02/21/2025 for sepsis 2/2 pneumonia. NETTING WEAVER was called on 02/25 due to tachycardia, tachypnea and diaphoresis and patient was upgraded to ICU for further management. Per IM team note, patient had an episode of atrial fibrillation overnight in the setting of MAP 54 and fever of 101.4. Patient was examined at bedside; he appears alert, aware, and in no acute distress. He continues to be on tube feeding. Due to patient's soft BPs he was given multiple fluid boluses totaling about 4 L and given midodrine which have improved BPs somewhat. His morning dose of metoprolol was also held due to patient being tachycardic. Spinal MRI to assess for epidural abscess was unable to be completed yesterday due to patient's coughing fits. 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 Therefore, patient will be treated with a longer course of both IV meropenem and IV ciprofloxacin for double coverage of Pseudomonas. Sodium levels have been noted to be uptrending so free water flushes were increased from 50 to 60 cc/hr. Of note, patient was recently down- graded yesterday but the decision to upgrade him back to ICU was made due to ongoing signs of suspected infection and sepsis. Awaiting results from EEG and echocardiography and will reattempt spinal MRI (thoracic, lumbar) when opportune with possibility of lumbar tap. 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 He is also quadriplegic with spastic contractures and has reported history of seizures. Patient is status post tracheostomy and status post PEG tube (which patient is reliant on for feeding). Patient is aware and does respond to commands Dx: -EEG results are pending Rx: -Follow up on EEG to assess for seizure-like activity that may explain patient's lactic acidosis upon admission -Wound care referral ordered. -Registered dietitian referral ordered, Jevity 1.5 goal rate 68 mL/hr. -Oral care as needed. -Keppra 1000 mg twice daily. -Gabapentin 100 mg 3 times daily. -Baclofen 20 mg every 6 hours as needed. 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 (previously seen on ET secretion studies from multiple past visits) that have not been adequately treated with prior short- term antibiotic regimens DDx: volume depletion 2/2 insensible losses (tachypneic expiration of water vapor through tracheostomy tube and diaphoretic sweating), ICU-provoked adrenal insufficiency, cardiogenic shock, central autonomic dysregulation (history of cerebral vasculitis and quadriparesis) Rx: -Fluid infusion (given 4 L so far today) -IV Levophed 0.05 mcg prn -GT midodrine TID prn -Double anti-pseudomonal antibiotic coverage as detailed in Respiratory and ID sections RRx: -Despite fluid infusion, midodrine, and Levophed, patient's recent BPs have still been somewhat soft Respiratory: #Multifocal pneumonia, likely Pseudomonas #Chronic mucous plugging It is currently suspected that patient's ongoing febrile episodes and hypotension despite broad-coverage antibiotic regimen with IV meropenem (and previously Zosyn, vancomycin, and cefepime) could be due to 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 (previously seen on ET secretion studies from multiple past visits) that has now developed into Pseudomonas pneumonia with sepsis Dx: -Comparison of 10/31/24 and 02/26/25 chest CTAs shows similar areas of pneumonia, suggesting chronic colonization of the patient's lungs with possibly multidrug- resistant strains of Pseudomonas (previously seen on ET secretion studies from multiple past visits) that have not been adequately treated with recent short- term antibiotic stints and have now developed into Pseudomonas pneumonia -02/25 sputum culture grew Proteus mirablis sensitive to meropenem but not ciprofloxacin or levofloxacin -02/22 sputum culture grew Pseudomonas aeruginosa, ESBL Klebsiella pneumoniae, and Proteus mirablis (all sensitive to ciprofloxacin and aztreonam only) -02/25 BCx both (-) Rx: -IV meropenem 2000 mg q8HR (started 02/27--), day 2 of 7 day course -IV ciprofloxacin 400 mg q8HR (started 02/28--), day 1 of 7 day course -Chest physiotherapy twice daily ordered -Continue MV volume control (patient has tracheostomy tube), will wean as tolerated -INH Duoneb 3 mL q6HRRT -INH sodium chloride 4 mL prn for secretions -ID consult RRx: -Despite trials of many antibiotics including cefepime, Zosyn, vancomycin, and now meropenem, patient continues to spike fevers. Since current working diagnosis is that this is 2/2 MDR Pseudomonas pneumonia, we will see if the double anti-pseudomonal coverage solves this issue while actively following up on other studies like spinal MRI, echocardiogram, or lumbar tap to work-up other possible occult sources of infection. Gastrointestinal: No active issue Renal: #JESUS, likely pre-renal Creatinine bump to 1.1 from 0.7, likely 2/2 hypoperfusion from septic shock with some contribution from volume depletion 2/2 insensible losses Rx: -Fluid infusion RRx: -Continue to monitor renal panel Endocrine: No active issues Infectious Disease: #Fever of unknown origin, intermittent and refractory to antibiotics An ongoing issue for the patient has been repeated febrile episodes despite broad-spectrum antibiotic coverage Most recently, patient spiked a fever of 101.6 last night (02/27) while actively receiving IV meropenem Currently suspect that etiology is due to 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 (previously seen on ET secretion studies from multiple past visits) that has now developed into Pseudomonas pneumonia with sepsis DDx: other occult infectious etiology (epidural abscess, endocarditis, chronic meningitis, disseminated fungal infection), rheumatologic etiology (patient has history of 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 which is more likely a etomxfylmz-flptzhdtqhb-rvnhkiu ANCA-associated vasculitis), disordered heat homeostasis 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, Constantine syndrome (triad of fever, hilar adenopathy, and erythema nodosum) Dx: -Comparison of 10/31/24 and 02/26/25 chest CTAs shows similar areas of pneumonia, suggesting chronic colonization of the patient's lungs with possibly multidrug- resistant strains of Pseudomonas (previously seen on ET secretion studies from multiple past visits) that have not been adequately treated with recent short- term antibiotic stints and have now developed into Pseudomonas pneumonia -BCx (-) Rx: -IV meropenem 2000 mg q8HR (started 02/27--), day 2 of 7 day course -IV ciprofloxacin 400 mg q8HR (started 02/28--), day 1 of 7 day course RRx: -Despite trials of many antibiotics including cefepime, Zosyn, vancomycin, and now meropenem, patient continues to spike fevers. Since current working diagnosis is that this is 2/2 MDR Pseudomonas pneumonia, we will see if the double anti-pseudomonal coverage solves this issue while actively following up on other studies like spinal MRI, echocardiogram, or lumbar tap to work-up other possible occult sources of infection. Rheumatologic studies may also be pursued but etiologies of that nature are currently lower on the list of differentials. Hematology/Oncology: #Chronic normocytic anemia Hgb has hovered between 8-10 in the past few days Rx: -Monitor CBC, transfuse if Hgb<7 Lines: L subclavian central line Diet: PEG tube feeds. DVT prophylaxis: Heparin. GI prophylaxis: Protonix. Code status: DNR. Disposition: ICU due to persistent hypotension refractory to fluid infusion and requiring pressor support Plan of care discussed with ICU attending Dr. Wallace. John Lakhani, DO Internal Medicine, PGY-1
[2025-02-28] MEDS: CIPROFLOXACIN/D5w 400 MG IVPB 400 MG/200 ML BAG 200 MG IV (18:57)
[2025-02-28] MEDS: levETIRAcetam LIQD 500 MG/5 ML UDC 1500 MG GT (21:30)
[2025-03-01] VITALS (51 sets, daily range): BP systolic 88–118; BP diastolic 45–74; PULSE 72–120; RESP 3–40; TEMP 35.5–36.6; O2SAT 93–100; BMI 18.0
[2025-03-01] MEDS: ALBUTEROL/IPRATROPIUM (Duoneb) RT SOL 3 ML NEBU INH ×4 (01:47→18:18)
[2025-03-01] MEDS: CIPROFLOXACIN/D5w 400 MG IVPB 400 MG/200 ML BAG 200 MG IV ×3 (02:16→18:22)
[2025-03-01 05:55] LABS: Basophils # (Auto) 0.0 Thou/mm3 (0.0-0.2); Basophils % (Auto) 0 % (0-2.5); Eosinophils # (Auto) 0.0 Thou/mm3 (0.0-0.5); Eosinophils % (Auto) 1 % (0-10); Hematocrit 22.6 % (41.0-53.0); Immature Granulocytes Auto 0.02 Thou/mm3 (0.00-0.00); Lymphocytes # (Auto) 0.8 Thou/mm3 (1.0-4.8); Lymphocytes % (Auto) 13 % (10-50); Mean Corpuscular HGB Conc 31.0 g/dl (31.0-37.0); Mean Corpuscular Hemoglobin 26.9 pg (25.0-35.0); Mean Corpuscular Volume 87 fL (80-100); Monocytes # (Auto) 0.6 Thou/mm3 (0.0-0.8); Monocytes % (Auto) 9 % (0-12); Neutrophils # (Auto) 4.7 Thou/mm3 (1.8-7.7); Neutrophils % (Auto) 77 % (37-80); Nucleated Red Blood Cell # 0.00 Thou/mm3 (0.00-0.00); Nucleated Red Blood Cell % 0 /100 WBC (0); Platelet Count 202 Thou/mm3 (140-440); RDW Standard Deviation 78.6 fL (35.1-43.9); Red Blood Count 2.60 Miln/mm3 (4.50-5.90); White Blood Count 6.1 Thou/mm3 (3.8-10.6)
[2025-03-01 05:56] LABS: Hemoglobin 7.0 g/dL (13.5-16.0)
[2025-03-01] MEDS: MEROPENEM INJ 2,000 MG in SODIUM CHLORIDE 0.9% 100 ML 100 MG IV ×3 (06:05→21:11)
[2025-03-01] MEDS: guaiFENesin SYRUP 200 MG/10 ML UDC PO ×4 (06:05→20:05)
[2025-03-01] MEDS: GABAPENTIN 100 MG, GABAPENTIN 300 MG 400 MG GT ×3 (06:06→21:10)
[2025-03-01 06:37] LABS: Alanine Aminotransferase 20 U/L (10-49); Albumin, Serum 3.1 gm/dL (3.5-5.0); Albumin/Globulin Ratio 0.9 (1.2-2.2); Alkaline Phosphatase 87 U/L (46-116); Anion Gap 11 (7-16); Aspartate Amino Transferase 15 U/L (0-34); BUN/Creatinine Ratio 15 Ratio (12-20); Bilirubin,Total 0.2 mg/dL (0.3-1.2); Blood Urea Nitrogen 9 mg/dL (9-23); Calcium 9.4 mg/dL (8.3-10.6); Calcium (Corrected) 10.1 mg/dL (8.5-10.1); Carbon Dioxide 26.1 mMol/L (20.0-31.0); Chloride 106 mMol/L (98-107); Creatinine (Component) 0.6 mg/dL (0.6-1.3); Estimated Creatinine Clearance 156.9 mL/min (>60); Globulin 3.4 gm/dL (2.3-3.5); Glucose 79 mg/dL (74-106); Magnesium 1.3 mg/dL (1.6-2.6); Osmolality,Calculated 282 (275-295); Phosphorous 2.0 mg/dL (2.4-5.1); Potassium 2.8 mMol/L (3.4-5.1); Sodium 143 mMol/L (136-145); Total Protein 6.5 gm/dL (5.7-8.2); eGFR > 60 See Note
[2025-03-01] MEDS: POTASSIUM CHLORIDE 10% 20 MEQ/15 ML UDC 40 MEQ GT (08:27)
[2025-03-01] MEDS: HEPARIN SOD INJ 5000 UNIT/ML VIAL SC ×2 (08:28→20:05)
[2025-03-01] MEDS: levETIRAcetam LIQD 500 MG/5 ML UDC 1500 MG GT ×2 (08:28→20:05)
[2025-03-01] MEDS: Magnesium Sulfate 4 GM Ivpb 4 GM/50 ML BAG IV (08:29)
[2025-03-01] MEDS: POT PHOS 15 mMol in NS 250 ML 15 MMOL/250 ML BAG 62.5 MMOL IV (08:29)
--- NOTE | 2025-03-01 09:06 | ESCONSULT_ITS ---
<Statement entered by Nick Vargas MD - 03/04/25 09:33> pt seen with resident. my note dictated. oddly, resident did not copy my assessment. HPI Data of Consult Requesting Physician: Beth Ashford MD Admitting Provider: Cristal Demarco MD Attending Provider: Beth Ashford MD Primary Care Provider: Physician No Primary/Family Consult Narrative History of present illness: The patient is a 29-year-old male with significant past medical history of cocaine induced vasculitis, seizure disorder, anemia, chronic respiratory failure with tracheostomy tube, s/p PEG tube, quadriplegic presented to ED on 02/21/2025 with chief complaint of fever of 106 Fahrenheit from subacute. The patient was initially treated for severe sepsis 2/2 healthcare associated pneumonia versus ventilator associated pneumonia, and was started on cefepime and vancomycin. The patient was recently admitted for sepsis secondary to ulcers on popliteal fossa on 02/10/2025 and was treated with cefepime and vancomycin. The patient continued to have fever, cefepime was discontinued on 02/25/2025, and started on Zosyn. Sputum culture on 02/22/2025 revealed Pseudomonas aeruginosa, Klebsiella pneumonia and Proteus mirabilis. Nasal MRSA screen was negative. Blood cultures were negative. On 02/25/2025, ET secretions revealed Proteus mirabilis. The patient continued to have daily episodes of fever despite antibiotics, and antibiotics were switched to meropenem on 02/27/2025. Later on 02/28/2025, ciprofloxacin was added. During my evaluation, his BP was 99/53, RR 23, saturating 100% on 10 L O2 via blow-by on FiO2 40%. Labs are significant for hemoglobin 7.0, white count 6.1, potassium 2.8, phosphorus 2.0, magnesium 1.3, chest CTA on 02/26/2025 revealed bilateral pneumonia, prominent in the right upper lobe, negative for pulmonary artery emboli, abdomen/pelvis CT revealed no pericecal inflammatory changes, and chest x-ray was suspicious for mild diffuse left lung pneumonia. PMH: As mentioned above Family history: Unobtainable Surgical history: Unobtainable Social history: Unobtainable Allergies: No known allergies Infectious disease consultation was done for further management of septic shock secondary to pneumonia. cc:: cc: Beth Ashford MD Review of Systems Review of Systems ROS Unobtainable: unobtainable due to mental status Exam Vital Signs Temp Pulse Resp BP Pulse Ox O2 Del Method O2 Flow Rate 97.5 F 95 20 107/57 L 99 Blow-by 8 03/01/25 00:00 03/01/25 06:30 03/01/25 06:30 03/01/25 06:30 03/01/25 06:30 02/27/25 16:00 03/01/25 06:29 FiO2 30 03/01/25 06:29 Narrative Exam General: No acute distress, spontaneous eye movement, nonresponsive HEENT: Moist mucous membranes, oropharynx clear Neck: Supple, No masses, No JVD CVS: S1S2 Regular rate and rhythm, No murmurs, rubs or gallops Lungs: Bilateral rhonchi throughout the lung field, no decreased breath sound appreciated Abd: Soft, NT/ND, +BS, no organomegaly Ext: No edema, warm and well perfused, upper and lower extremity contractures Skin: Pressure ulcers on buttock and heel Psych: Unobtainable Results Labs 03/04/25 04:57 03/04/25 04:57 Labs: Short CBC 03/01/25 Range/Units 04:27 WBC 6.1 D (3.8-10.6) Thou/mm3 Hgb 7.0 L D (13.5-16.0) g/dL Hct 22.6 L (41.0-53.0) % Plt Count 202 D (140-440) Thou/mm3 BMP 03/01/25 04:27 Sodium 143 Potassium 2.8 L D Chloride 106 Carbon Dioxide 26.1 BUN 9 Creatinine 0.6 D Glucose 79 Calcium 9.4 Liver Function 03/01/25 Range/Units 04:27 Total Bilirubin 0.2 L (0.3-1.2) mg/dL AST 15 (0-34) U/L ALT 20 (10-49) U/L Alkaline Phosphatase 87 D (46-116) U/L Albumin 3.1 L D (3.5-5.0) gm/dL ABG Interpretation ABG results: 02/21/25 02/25/25 02/25/25 23:11 17:38 20:17 ABG pH 7.35 7.43 ABG pCO2 32 33 ABG pO2 39 L* 169 H D ABG HCO3 18 L 22 ABG O2 Saturation 68 L 101 H ABG Base Excess -7 L -2 VBG pH 7.50 VBG pCO2 30 L VBG pO2 66 H VBG Base Excess 1 02/26/25 04:07 ABG pH 7.45 ABG pCO2 31 L ABG pO2 146 H D ABG HCO3 21 ABG O2 Saturation 100 H ABG Base Excess -3 VBG pH VBG pCO2 VBG pO2 VBG Base Excess Impressions Impression: see other notes from ID. Quality Measures Quality Measures VTE prophylaxis (Heparin sc) Medications Home Medications and Allergies Home Medications ?Medication ?Instructions ?Recorded ?Confirmed ?Type acetaminophen 325 mg tablet 650 mg G-tube Q4HR PRN Fev er > 03/01/25 02/23/25 History 100.0 acetaminophen 325 mg tablet 650 mg G-tube Q6HR PRN Abbie n 03/01/25 02/23/25 History albuterol sulfate 2.5 mg/3 mL 2.5 mg inhalation Q4H GA N 03/01/25 02/23/25 History (0.083 %) solution for nebulization shortness of breat h or wheezing ascorbic acid (vitamin C) 500 mg 500 mg G-tube BID for supplement 03/01/25 02/23/25 History tablet atorvastatin 40 mg tablet 40 mg G-tube HS for hyperlip idemia 03/01/25 02/23/25 History baclofen 20 mg tablet 20 mg G-tube Q6HR for muscle spasm 03/01/25 02/23/25 History bisacodyl 10 mg rectal suppository 10 mg GA PRN PRN No BM Per Bowel 03/01/25 02/23/25 History (Dulcolax (bisacodyl)) Management Protocol gabapentin 300 mg capsule 300 mg G-tube TID for neurop athic 03/01/25 02/23/25 History pain guaifenesin 100 mg/5 mL oral 200 mg G-tube Q4H PRN 06/1302/23/25 History liquid (Noreen-Tussin) congestion/cough ipratropium 0.5 mg-albuterol 3 mg 3 ml INH Q2HR PRN Wh eezing 03/01/25 02/23/25 History (2.5 mg base)/3 mL nebulization soln lactulose 10 gram/15 mL oral 10 g feeding tube QDAY fo r 03/01/25 02/23/25 History solution constipation lansoprazole 30 mg capsule,delayed 30 mg G-tube QDAY G ERD 03/01/25 02/23/25 History release levetiracetam 100 mg/mL oral 1,000 mg G-tube BID for s eizures 03/01/25 02/23/25 History solution magnesium hydroxide 400 mg/5 mL 30 ml G-tube PRN PRN C onstipation 03/01/25 02/23/25 History oral suspension (Milk of Magnesia) metoprolol tartrate 25 mg tablet 100 mg G-tube BID for 03/01/25 02/23/25 History hypertension, tachycardia midodrine 5 mg tablet 5 mg G-tube TID PRN Hold for 03/01/25 02/23/25 History SBP>90 and DBP>50 morphine concentrate 100 mg/5 mL 2 mg G-tube TID PRN G COLBY 30 MINS 03/01/25 02/23/25 History (20 mg/mL) oral solution PRIOR TO WOUND TX multivitamin 1 tab G-tube QDAY supplement 03/01/25 02/23/25 History polyethylene glycol 3350 17 gram 17 g G-tube PRN PRN N o BM Per 03/01/25 02/23/25 History oral powder packet Bowel Management Protocol sodium phosphates 19 gram-7 133 ml GA PRN PRN No BM Pe r Bowel 03/01/25 02/23/25 History gram/118 mL enema (Fleet Enema) Management Protocol Allergies Allergy/AdvReac Type Severity Reaction Status Date / Time No Known Allergies Allergy Unverified 10/23/24 09:16 Visit Medications Albuterol/Ipratropium (Albuterol/Ipratropium (Duoneb) Rt [place] 3 Ml Nebu) 3 ml INH Q6HRRT RADHA Stop: 03/24/25 12:59 Last Admin: 03/01/25 06:29 Dose: 3 ml Atropine Sulfate (Atropine Sulf Inj 0.1 Mg/Ml Syr 10 Ml) 0.5 mg IVP Q3MIN PRN PRN Reason: heart rate <45 Baclofen (Baclofen 10 Mg Tablet) 20 mg GT Q6HR PRN; Protocol PRN Reason: Spasms Stop: 03/24/25 07:40 Last Admin: 02/23/25 03:12 Dose: 20 mg Gabapentin 100 mg/ Gabapentin (300 mg) 400 mg GT TID [facility] Stop: 03/27/25 21:59 Last Admin: 03/01/25 06:06 Dose: 400 mg Guaifenesin (Guaifenesin Syrup 200 Mg/10 Ml Udc) 200 mg PO QID RADHA; Protocol Stop: 03/27/25 20:59 Last Admin: 03/01/25 06:05 Dose: 200 mg Heparin Sodium (Porcine) (Heparin Sod Inj 5000 Unit/Ml Vial) 5,000 unit SC BID [facility] Stop: 03/08/25 08:59 Last Admin: 03/01/25 08:28 Dose: 5,000 unit Meropenem 2,000 mg/ Sodium (Chloride) 100 mls @ 100 mls/hr IV Q8HR [facility] Stop: 03/06/25 13:59 Last Admin: 03/01/25 06:05 Dose: 100 mls/hr Norepinephrine/Dextrose (Levophed In D5w 8mg/250ml) 8 mg in 250 mls @ 5.672 mls/hr IV .Q24H PRN; Protocol PRN Reason: PER PROTOCOL Stop: 03/30/25 12:24 Last Titration: 03/01/25 01:30 Dose: 0 mcg/kg/min, 0 mls/hr Ciprofloxacin/Dextrose (Cipro Ivpb) 400 mg in 200 mls @ 200 mls/hr IV Q8H [facility] Stop: 03/07/25 18:29 Last Admin: 03/01/25 02:16 Dose: 200 mls/hr Magnesium Sulfate (Magnesium Sulfate Ivpb) 4 gm in 50 mls @ 12.5 mls/hr IV X1 ONE Stop: 03/01/25 11:36 Last Admin: 03/01/25 08:29 Dose: 12.5 mls/hr Potassium Phosphate (Pot Phos 15 Mmol In Ns 250 Ml) 15 mmol in 250 mls @ 62.5 mls/hr IV X1 ONE Stop: 03/01/25 11:37 Last Admin: 03/01/25 08:29 Dose: 62.5 mls/hr Levetiracetam (Levetiracetam Liqd 500 Mg/5 Ml Udc) 1,500 mg GT BID [facility] Stop: 03/30/25 20:59 Last Admin: 03/01/25 08:28 Dose: 1,500 mg Metoprolol Tartrate (Metoprolol Tartrate 25 Mg Tablet) 100 mg GT BID [facility] Stop: 03/25/25 08:59 Last Admin: 02/28/25 21:40 Dose: Not Given Midodrine (Midodrine 5 Mg Tablet) 5 mg GT TID PRN PRN Reason: Systolic BP <90 Stop: 03/24/25 13:59 Last Admin: 02/26/25 15:48 Dose: 5 mg Ondansetron HCl (Ondansetron Inj 2 Mg/Ml Inj 2 Ml) 4 mg IVP Q6H PRN; Protocol PRN Reason: NAUSEA OR VOMITING Stop: 03/23/25 23:13 Last Admin: 02/28/25 13:30 Dose: 4 mg Pantoprazole Sodium (Pantoprazole Inj 40 Mg Vial) 40 mg IVP QDAY [facility] Stop: 03/24/25 08:59 Last Admin: 03/01/25 08:28 Dose: 40 mg Potassium Chloride (Potassium Chloride 10% 20 Meq/15 Ml Udc) 20 meq GT X1 ONE Stop: 03/01/25 14:01 Sodium Chloride (Sodium Chloride Rt [place] 0.9% 3 Ml Nebu) 3 ml INH PRN PRN PRN Reason: SOLN Stop: 03/27/25 18:50 Sodium Chloride (Sodium Cl Rt [place] 3% 4 Ml Nebu (Non-Formulary)) 4 ml INH PRN PRN PRN Reason: SECRETIONS Stop: 03/29/25 07:06 Discontinued Medications Acetaminophen (Acetaminophen 325 Mg Tablet) 650 mg PO Q6H PRN PRN Reason: PAIN SCALE 1-3 (mild Stop: 03/23/25 23:13 Acetaminophen (Acetaminophen 325 Mg Tablet) 650 mg PO Q6H PRN PRN Reason: Fever >100.4 Stop: 03/23/25 23:13 Hydrocodone Bitart/Acetaminophen (Hydrocodone/Apap 10/325 Tab) 1 tab PO Q4HR PRN PRN Reason: PAIN SCALE 7-10 (Severe Stop: 02/26/25 23:13 Hydrocodone Bitart/Acetaminophen (Hydrocodone/Apap 10/325 Tab) 1 tab GT Q4HR PRN PRN Reason: PAIN SCALE 7-10 (Severe Stop: 02/26/25 23:13 Adenosine (Adenosine Inj 3 Mg/Ml Vial) 6 mg IVP X1 ONE Stop: 02/21/25 22:50 Last Admin: 02/21/25 23:18 Dose: 6 mg Adenosine (Adenosine Inj 3 Mg/Ml Vial) 12 mg IVP X1 ONE Stop: 02/21/25 22:50 Last Admin: 02/21/25 23:22 Dose: 12 mg Adenosine (Adenosine Inj 3 Mg/Ml Vial) 12 mg IVP X1 ONE Stop: 02/21/25 23:23 Last Admin: 02/21/25 23:29 Dose: 12 mg Albuterol (Albuterol Rt 2.5 Mg/0.5 Ml Nebu) 5 mg INH X1 ONE Stop: 02/25/25 18:08 Last Admin: 02/25/25 19:07 Dose: Not Given Albuterol (Albuterol Rt 2.5 Mg/0.5 Ml Nebu) 2.5 mg INH X1 ONE Stop: 02/25/25 18:52 Last Admin: 02/25/25 19:06 Dose: Not Given Amoxicillin/Clavulanate Potassium (Amoxicillin/Pot Clav 875 Tablet) 1 tab GT BID RADHA Stop: 03/04/25 14:29 Last Admin: 02/25/25 15:22 Dose: 1 tab Atropine Sulfate (Atropine Sulf Inj 1 Mg/Ml Vial) 1 mg IV X1 ONE Stop: 02/26/25 00:05 Last Admin: 02/26/25 00:04 Dose: 1 mg Atropine Sulfate (Atropine Sulf Inj 1 Mg/Ml Vial) 0.5 mg IVP Q3MIN PRN PRN Reason: bradicardia Atropine Sulfate (Atropine Sulf Inj 1 Mg/Ml Vial) 0.5 mg IVP Q3MIN PRN PRN Reason: heart rate <45 Dextrose (Dextrose 50%-Water Inj 50 Ml Syringe) 50 ml IVP X1 ONE Stop: 02/22/25 08:15 Last Admin: 02/22/25 08:22 Dose: 50 ml Dextrose (Dextrose 50%-Water Inj 50 Ml Syringe) 50 ml IVP X1 ONE Stop: 02/22/25 11:34 Last Admin: 02/22/25 12:06 Dose: 50 ml Dextrose (Dextrose 50%-Water Inj 50 Ml Syringe) 50 ml IVP X1 ONE Stop: 02/22/25 14:04 Last Admin: 02/22/25 14:11 Dose: 50 ml Dextrose (Dextrose 50%-Water Inj 50 Ml Syringe) 25 ml IVP X1 ONE Stop: 02/22/25 15:52 Last Admin: 02/22/25 16:27 Dose: 25 ml Dextrose (Dextrose 50%-Water Inj 50 Ml Syringe) 25 ml IVP X1 ONE Stop: 02/22/25 17:31 Last Admin: 02/22/25 17:34 Dose: 25 ml Dextrose (Dextrose 50%-Water Inj 50 Ml Syringe) 50 ml IVP X1 ONE Stop: 02/23/25 12:54 Last Admin: 02/23/25 13:15 Dose: 50 ml Dextrose (Dextrose 50%-Water Inj 50 Ml Syringe) 25 ml IV X1 ONE Stop: 02/25/25 06:16 Last Admin: 02/25/25 06:19 Dose: 25 ml Dextrose (Dextrose 50%-Water Inj 50 Ml Syringe) 50 ml IVP X1 ONE Stop: 02/25/25 15:59 Last Admin: 02/25/25 16:00 Dose: 50 ml Dextrose (Dextrose 50%-Water Inj 50 Ml Syringe) 50 ml IVP X1 ONE Stop: 02/25/25 16:37 Last Admin: 02/25/25 16:42 Dose: 50 ml Dextrose (Dextrose 50%-Water Inj 50 Ml Syringe) 50 ml IVP X1 ONE Stop: 02/25/25 17:23 Last Admin: 02/25/25 17:15 Dose: 50 ml Dextrose (Dextrose 50%-Water Inj 50 Ml Syringe) 50 ml IVP X1 ONE Stop: 02/25/25 18:01 Last Admin: 02/25/25 18:10 Dose: Not Given Dextrose (Dextrose 50%-Water Inj 50 Ml Syringe) 50 ml IVP X1 ONE Stop: 02/25/25 21:03 Last Admin: 02/25/25 20:25 Dose: 50 ml Dextrose (Dextrose 50%-Water Inj 50 Ml Syringe) 50 ml IVP X1 ONE Stop: 02/28/25 05:42 Last Admin: 02/28/25 05:47 Dose: 50 ml Fentanyl Citrate (Fentanyl Cit Inj 50 Mcg/Ml Amp 2ml) 100 mcg IVP X1 ONE Stop: 02/25/25 19:48 Last Admin: 02/25/25 20:01 Dose: 100 mcg Gabapentin (Gabapentin 300 Mg Capsule) 300 mg GT TID RADHA Stop: 03/24/25 07:44 Last Admin: 02/25/25 14:18 Dose: 300 mg Gabapentin (Gabapentin 300 Mg Capsule) 400 mg GT TID RADHA Stop: 03/27/25 21:59 Last Admin: 02/26/25 16:27 Dose: Not Given Glucagon (Glucagon Inj 1 Mg Vial) 1 mg SC X1 ONE Stop: 02/25/25 18:01 Last Admin: 02/25/25 18:08 Dose: 1 mg Glucagon (Glucagon Inj 1 Mg Vial) 1 mg SC X1 ONE Stop: 02/25/25 18:30 Last Admin: 02/25/25 18:35 Dose: 1 mg Acetaminophen (Ofirmev Inj) 1,000 mg in 100 mls @ 250 mls/hr IV X1 ONE Stop: 02/21/25 20:31 Last Infusion: 02/21/25 21:07 Dose: Infused Piperacillin/Tazobactam/Dextrose (Zosyn) 3.375 gm in 50 mls @ 100 mls/hr IV X1 ONE Stop: 02/21/25 20:37 Last Infusion: 02/21/25 21:07 Dose: Infused Lactated Ringer's (Lactated Ringers) 1,000 mls @ 999 mls/hr IV .Q1H1M ONE Stop: 02/21/25 21:16 Last Infusion: 02/21/25 21:26 Dose: Infused Lactated Ringer's (Lactated Ringers) 1,000 mls @ 999 mls/hr IV .Q1H1M ONE Stop: 02/21/25 21:37 Last Infusion: 02/21/25 22:29 Dose: Infused Vancomycin/Sodium Chloride (Vancomycin/Ns 1 Gm Ivpb) 200 mls @ 120 mls/hr IV X1 ONE Stop: 02/21/25 22:17 Last Infusion: 02/21/25 22:53 Dose: Infused Lactated Ringer's (Lactated Ringers) 1,000 mls @ 999 mls/hr IV .Q1H1M ONE Stop: 02/21/25 23:29 Last Infusion: 02/22/25 01:07 Dose: Infused Fluconazole (Diflucan/Ns Ivpb) 400 mg in 200 mls @ 100 mls/hr IV X1 ONE Stop: 02/22/25 00:59 Last Infusion: 02/22/25 03:12 Dose: Infused Magnesium Sulfate (Magnesium Sulfate Ivpb) 4 gm in 50 mls @ 12.5 mls/hr IV X1 ONE Stop: 02/22/25 03:01 Last Infusion: 02/22/25 03:12 Dose: Infused Acyclovir Sodium 585 mg/ (Sodium Chloride) 111.7 mls @ 100 mls/hr IV Q8HR [facility] Stop: 02/28/25 23:31 Last Admin: 02/22/25 01:07 Dose: Not Given Lactated Ringer's (Lactated Ringers) 1,000 mls @ 999 mls/hr IV .Q1H1M ONE Stop: 02/22/25 00:39 Last Infusion: 02/22/25 01:07 Dose: Infused Acetaminophen (Ofirmev Inj) 1,000 mg in 100 mls @ 250 mls/hr IV Q6HR [facility] Stop: 02/22/25 12:23 Last Admin: 02/22/25 06:22 Dose: Not Given Acyclovir Sodium 500 mg/ (Sodium Chloride) 110 mls @ 100 mls/hr IV Q8HR RADHA Stop: 03/01/25 05:59 Last Admin: 02/24/25 00:34 Dose: Not Given Acyclovir Sodium 500 mg/ (Sodium Chloride) 110 mls @ 100 mls/hr IV X1 ONE Stop: 02/22/25 03:35 Last Infusion: 02/22/25 04:15 Dose: Infused Ceftriaxone Sodium 2 gm/ (Sodium Chloride) 50 mls @ 100 mls/hr IV Q12HR [facility] Stop: 03/01/25 20:59 Ceftriaxone Sodium 2 gm/ (Sodium Chloride) 50 mls @ 100 mls/hr IV X1 ONE Stop: 02/22/25 05:29 Last Infusion: 02/22/25 05:58 Dose: Infused Vancomycin/Sodium Chloride (Vancomycin/Ns 1 Gm Ivpb) 200 mls @ 120 mls/hr IV X1 ONE Stop: 02/22/25 07:39 Last Infusion: 02/22/25 07:35 Dose: Infused Vancomycin/Sodium Chloride (Vancomycin/Ns 750 Mg Ivpb) 750 mg in 150 mls @ 120 mls/hr IV Q12H [facility] Stop: 03/01/25 21:59 Last Admin: 02/23/25 21:52 Dose: 120 mls/hr Cefepime HCl 2 gm/ Sodium (Chloride) 50 mls @ 100 mls/hr IV Q8HR [facility] Stop: 03/01/25 07:14 Last Admin: 02/25/25 19:07 Dose: Not Given Acetaminophen (Ofirmev Inj) 1,000 mg in 100 mls @ 250 mls/hr IV Q6HR PRN; Protocol PRN Reason: Fever >100.4 or Pain Last Admin: 02/23/25 09:22 Dose: 250 mls/hr Dextrose/Sodium Chloride (D5-Ns) 1,000 mls @ 70 mls/hr IV .[id number] [facility] Stop: 02/22/25 21:47 Last Infusion: 02/22/25 16:30 Dose: 100 mls/hr Dextrose (D10w) 500 mls @ 100 mls/hr IV .Q5H [facility] Stop: 03/24/25 17:30 Last Admin: 02/24/25 00:35 Dose: Not Given Dextrose (D10w 1000 Ml) 1,000 mls @ 100 mls/hr IV .Q10H [facility] Stop: 03/24/25 17:30 Last Admin: 02/24/25 00:35 Dose: Not Given Dextrose (D10w 1000 Ml) 1,000 mls @ 150 mls/hr IV .Q6H40M [facility] Stop: 03/25/25 05:29 Last Admin: 02/23/25 07:12 Dose: 150 mls/hr Magnesium Sulfate (Magnesium Sulfate Ivpb) 4 gm in 50 mls @ 12.5 mls/hr IV X1 ONE Stop: 02/23/25 11:15 Last Admin: 02/23/25 08:44 Dose: 12.5 mls/hr Lactated Ringer's (Lactated Ringers) 1,000 mls @ 125 mls/hr IV .Q8H ONE Stop: 02/23/25 15:17 Last Admin: 02/23/25 08:43 Dose: 125 mls/hr Dextrose/Lactated Ringer's (D5-Lr) 1,000 mls @ 125 mls/hr IV .Q8H [facility] Stop: 03/25/25 12:59 Last Admin: 02/26/25 08:20 Dose: Not Given Magnesium Sulfate (Magnesium Sulfate Ivpb) 2 gm in 50 mls @ 25 mls/hr IV X1 ONE Stop: 02/24/25 09:47 Last Admin: 02/24/25 08:11 Dose: 25 mls/hr Dextrose/Sodium Chloride (D5-Ns) 500 mls @ 75 mls/hr IV .Q6H40M [facility] Stop: 02/25/25 05:39 Last Admin: 02/26/25 11:54 Dose: Not Given Dextrose/Sodium Chloride (D5-Ns) 500 mls @ 75 mls/hr IV .Q6H40M [facility] Stop: 02/25/25 06:09 Last Infusion: 02/25/25 06:15 Dose: Infused Magnesium Sulfate (Magnesium Sulfate Ivpb) 4 gm in 50 mls @ 12.5 mls/hr IV X1 ONE Stop: 02/25/25 11:34 Last Admin: 02/25/25 09:51 Dose: 12.5 mls/hr Dextrose (D10w 1000 Ml) 1,000 mls @ 50 mls/hr IV .Q20H [facility] Stop: 02/26/25 12:36 Last Admin: 02/25/25 16:48 Dose: 50 mls/hr Lactated Ringer's (Lactated Ringers) 500 mls @ 999 mls/hr IV .Q31M ONE Stop: 02/25/25 17:36 Last Infusion: 02/25/25 19:08 Dose: Infused Lactated Ringer's (Lactated Ringers) 500 mls @ 999 mls/hr IV .Q31M ONE Stop: 02/25/25 17:53 Last Infusion: 02/25/25 19:08 Dose: Infused Lactated Ringer's (Lactated Ringers) 1,000 mls @ 999 mls/hr IV .Q1H1M ONE Stop: 02/25/25 18:35 Last Infusion: 02/25/25 19:08 Dose: Infused Cefepime HCl 2 gm/ Sodium (Chloride) 50 mls @ 100 mls/hr IV Q8HR [facility] Stop: 03/04/25 17:35 Last Admin: 02/25/25 18:14 Dose: 100 mls/hr Vancomycin HCl (Vancomycin/Water 1250 Mg Ivpb) 250 mls @ 120 mls/hr IV X1 ONE Stop: 02/25/25 19:39 Last Admin: 02/25/25 18:35 Dose: 120 mls/hr Piperacillin Sod/Tazobactam (Sod 4.5 gm/ Sodium Chloride) 100 mls @ 200 mls/hr IV Q6HR [facility] Stop: 03/04/25 18:43 Last Admin: 02/27/25 12:14 Dose: 200 mls/hr Fentanyl Citrate (Sublimaze Inj 2,500 Mcg/250 Ml Bag) 2,500 mcg in 250 mls @ 2.5 mls/hr IV .Q24H PRN; Protocol PRN Reason: PER PROTOCOL Stop: 03/02/25 19:17 Last Titration: 02/26/25 01:00 Dose: 0 mcg/hr, 0 mls/hr Norepinephrine Bitartrate (Levophed In Ns 16mg/250ml) 16 mg in 250 mls @ 2.743 mls/hr IV .Q24H PRN; Protocol PRN Reason: PER PROTOCOL Stop: 03/27/25 20:03 Midazolam HCl (Versed Pf Inj In Ns Premix) 100 mg in 100 mls @ 1 mls/hr IV .Q24H PRN; Protocol PRN Reason: PER PROTOCOL Stop: 03/02/25 20:06 Vasopressin/Sodium Chloride (Vasostrict/Ns Ivpb) 20 unit in 100 mls @ 9 mls/hr IV .Q11H7M PRN; Protocol PRN Reason: PER PROTOCOL Stop: 03/27/25 20:40 Last Titration: 02/26/25 06:00 Dose: 0 unit/min, 0 mls/hr Norepinephrine/Dextrose (Levophed In D5w 8mg/250ml) 8 mg in 250 mls @ 5.485 mls/hr IV .Q24H PRN; Protocol PRN Reason: PER PROTOCOL Stop: 03/27/25 20:47 Last Titration: 02/27/25 03:12 Dose: 0 mcg/kg/min, 0 mls/hr Vancomycin/Sodium Chloride (Vancomycin/Ns 1 Gm Ivpb) 200 mls @ 120 mls/hr IV BID@1000,2200 RADHA; Protocol Stop: 03/05/25 09:59 Last Admin: 02/26/25 21:43 Dose: 120 mls/hr Sodium Chloride (Ns) 250 mls @ 999 mls/hr IV .Q16M ONE Stop: 02/26/25 15:44 Last Admin: 02/26/25 15:37 Dose: 999 mls/hr Magnesium Sulfate (Magnesium Sulfate Ivpb) 4 gm in 50 mls @ 12.5 mls/hr IV X1 ONE Stop: 02/27/25 11:16 Last Infusion: 02/27/25 11:23 Dose: Infused Ciprofloxacin/Dextrose (Cipro Ivpb) 400 mg in 200 mls @ 200 mls/hr IV Q12HR [facility] Stop: 03/06/25 09:06 Last Admin: 02/27/25 22:30 Dose: 200 mls/hr Levofloxacin/Dextrose (Levaquin Ivpb) 750 mg in 150 mls @ 100 mls/hr IV QDAY RADHA Stop: 03/07/25 08:59 Last Admin: 02/28/25 08:37 Dose: 100 mls/hr Lactated Ringer's (Lactated Ringers) 500 mls @ 100 mls/hr IV .Q5H ONE Stop: 02/28/25 13:07 Last Admin: 02/28/25 11:41 Dose: 100 mls/hr Lactated Ringer's (Lactated Ringers) 500 mls @ 125 mls/hr IV .Q4H ONE Stop: 02/28/25 14:45 Last Admin: 02/28/25 13:33 Dose: 125 mls/hr Lactated Ringer's (Lactated Ringers) 500 mls @ 999 mls/hr IV .Q31M ONE Stop: 02/28/25 13:30 Last Admin: 02/28/25 17:00 Dose: 999 mls/hr Lactated Ringer's (Lactated Ringers) 1,000 mls @ 999 mls/hr IV .Q1H1M ONE Stop: 02/28/25 12:15 Last Admin: 02/28/25 11:46 Dose: 999 mls/hr Lactated Ringer's (Lactated Ringers) 1,000 mls @ 999 mls/hr IV .Q1H1M ONE Stop: 02/28/25 12:55 Last Admin: 02/28/25 12:13 Dose: 999 mls/hr Potassium Phosphate (Pot Phos 15 Mmol In Ns 250 Ml) 15 mmol in 250 mls @ 62.5 mls/hr IV X1 ONE Stop: 03/01/25 11:42 Last Admin: 03/01/25 08:18 Dose: Not Given Magnesium Sulfate (Magnesium Sulfate Ivpb) 4 gm in 50 mls @ 12.5 mls/hr IV X1 ONE Stop: 03/01/25 11:43 Last Admin: 03/01/25 08:18 Dose: Not Given Ibuprofen (Ibuprofen Susp 100 Mg/5 Ml Udc) 600 mg PO X1 ONE Stop: 02/21/25 20:33 Last Admin: 02/21/25 20:49 Dose: 600 mg Levalbuterol HCl (Levalbuterol Rt 0.63 Mg/3 Ml Nebu) 0.63 mg INH X1 ONE Stop: 02/25/25 20:02 Last Admin: 02/25/25 20:12 Dose: 0.63 mg Levalbuterol HCl (Levalbuterol Rt 0.63 Mg/3 Ml Nebu) 0.63 mg INH X1 ONE Stop: 02/25/25 20:06 Last Admin: 02/25/25 20:13 Dose: Not Given Levetiracetam (Levetiracetam 250 Mg Tablet) 1,000 mg GT BID [facility] Stop: 03/24/25 08:59 Last Admin: 02/28/25 08:38 Dose: 1,000 mg Levofloxacin (Levofloxacin 250 Mg Tablet) 750 mg GT X1 ONE Stop: 02/25/25 14:21 Last Admin: 02/25/25 15:21 Dose: 750 mg Metoprolol Tartrate (Metoprolol Tartrate Inj 1 Mg/Ml Amp 5 Ml) 5 mg IVP X1 ONE Stop: 02/21/25 20:09 Last Admin: 02/21/25 20:26 Dose: 5 mg Metoprolol Tartrate (Metoprolol Tartrate 25 Mg Tablet) 100 mg GT BID [facility] Stop: 03/24/25 08:59 Last Admin: 02/22/25 08:40 Dose: Not Given Metoprolol Tartrate (Metoprolol Tartrate 25 Mg Tablet) 50 mg GT BID [facility] Stop: 03/24/25 12:29 Last Admin: 02/22/25 21:17 Dose: 50 mg Metoprolol Tartrate (Metoprolol Tartrate Inj 1 Mg/Ml Amp 5 Ml) 2 mg IVP X1 ONE Stop: 02/25/25 16:47 Last Admin: 02/25/25 16:53 Dose: 2 mg Midazolam HCl (Midazolam Inj 1 Mg/Ml Vial 2 Ml) 9 mg 0.15 mg/kg (9 mg) IVP X1 ONE Stop: 02/25/25 17:22 Last Admin: 02/25/25 17:37 Dose: Not Given Midazolam HCl (Midazolam Inj 1 Mg/Ml Vial 2 Ml) 9 mg 0.15 mg/kg (9 mg) IVP X1 ONE Stop: 02/25/25 20:08 Last Admin: 02/25/25 20:46 Dose: 9 mg Morphine Sulfate (Morphine Sulf Liqd 10 Mg/5 Ml Udc) 2 mg GT Q8HR PRN; Protocol PRN Reason: 30 minutes before wound care Stop: 02/28/25 10:05 Last Admin: 02/25/25 15:46 Dose: 2 mg Morphine Sulfate (Morphine Sulf Inj 4 Mg/Ml Vial) 2 mg IVP X1 ONE Stop: 02/25/25 16:28 Last Admin: 02/25/25 16:35 Dose: 2 mg Morphine Sulfate (Morphine Sulf Inj 4 Mg/Ml Vial) 2 mg IVP X1 ONE Stop: 02/25/25 16:51 Last Admin: 02/25/25 16:57 Dose: 2 mg Morphine Sulfate (Morphine Sulf Inj 4 Mg/Ml Vial) 2 mg IVP X1 ONE Stop: 02/25/25 17:42 Last Admin: 02/25/25 17:55 Dose: 2 mg Oxycodone/Acetaminophen (Oxycodone/Apap 5/325 Tablet) 1 tab PO Q6H PRN PRN Reason: PAIN SCALE 4-6 (Moderate Stop: 02/26/25 23:13 Oxycodone/Acetaminophen (Oxycodone/Apap 5/325 Tablet) 1 tab GT Q6H PRN PRN Reason: PAIN SCALE 4-6 (Moderate Stop: 02/26/25 23:13 Pharmacy Consult (Vancomycin Pharmacy To Dose 1 Each Each) 1 each IV QDAY PRN PRN Reason: PROTOCOL Stop: 03/24/25 08:59 Pharmacy Consult (Vancomycin Pharmacy To Dose 1 Each Each) 1 each IV QDAY RADHA Stop: 03/28/25 08:59 Last Admin: 02/27/25 08:03 Dose: Not Given Potassium Chloride (Potassium Chloride 10% 20 Meq/15 Ml Udc) 40 meq GT X1 ONE Stop: 02/24/25 07:47 Last Admin: 02/24/25 08:11 Dose: 40 meq Potassium Chloride (Potassium Chloride 10% 20 Meq/15 Ml Udc) 20 meq GT X1 ONE Stop: 02/24/25 07:47 Last Admin: 02/24/25 08:11 Dose: 20 meq Potassium Chloride (Potassium Chloride 10% 20 Meq/15 Ml Udc) 40 meq GT X1 ONE Stop: 02/25/25 07:35 Last Admin: 02/25/25 09:40 Dose: 40 meq Potassium Chloride (Potassium Chloride 10% 20 Meq/15 Ml Udc) 40 meq GT X1 ONE Stop: 02/25/25 23:52 Last Admin: 02/26/25 00:44 Dose: 40 meq Potassium Chloride (Potassium Chloride 10% 20 Meq/15 Ml Udc) 40 meq GT X1 ONE Stop: 03/01/25 07:36 Last Admin: 03/01/25 08:27 Dose: 40 meq Potassium Chloride (Potassium Chloride 10% 20 Meq/15 Ml Udc) 40 meq GT X1 ONE Stop: 03/01/25 13:01 Potassium Chloride (Potassium Chloride 10% 20 Meq/15 Ml Udc) 40 meq GT X1 ONE Stop: 03/01/25 07:43 Last Admin: 03/01/25 08:18 Dose: Not Given Rocuronium [place] (Rocuronium Inj 10 Mg/Ml Vial 10 Ml) 59 mg 1 mg/kg (59 mg) IV X1 ONE Stop: 02/25/25 20:10 Last Admin: 02/25/25 22:20 Dose: Not Given Sodium Bicarbonate (Sodium Bicarb Inj 8.4% Syr 50 Ml Syringe) 50 ml IV X1 ONE Stop: 02/21/25 23:50 Last Admin: 02/22/25 00:34 Dose: 50 ml Sodium Chloride (Sodium Chloride Rt 10% 15 Ml Nebu) 5 ml INH X1 ONE Stop: 02/22/25 07:23 Last Admin: 02/22/25 11:23 Dose: Not Given Sodium Chloride (Sodium Cl Rt [place] 3% 4 Ml Nebu (Non-Formulary)) 4 ml INH Q8HRRT RADHA Stop: 03/24/25 07:29 Last Admin: 02/24/25 00:35 Dose: Not Given Sodium Chloride (Sodium Cl Rt [place] 3% 4 Ml Nebu (Non-Formulary)) 4 ml INH Q6HRRT RADHA Stop: 03/24/25 12:59 Last Admin: 02/27/25 08:16 Dose: Not Given Sodium Chloride (Sodium Chloride Rt 10% 15 Ml Nebu) 5 ml INH X1 ONE Stop: 09/08/25 19:21 Last Admin: 02/25/25 22:18 Dose: Not Given Sodium Polystyrene Sulfonate (Sod Polystyrene Sulfon Susp 15 Gm/60 Ml Btl) 15 gm PO X1 ONE Stop: 02/25/25 19:38 Last Admin: 02/25/25 21:27 Dose: 15 gm Assessment & Plan Plan The patient is a 29-year-old male with significant past medical history of cocaine induced vasculitis, seizure disorder, anemia, chronic respiratory failure with tracheostomy tube, s/p PEG tube, quadriplegic presented to ED on 02/21/2025 with chief complaint of fever of 106 Fahrenheit from subacute rehab. Infectious disease consultation was done for further management of septic shock secondary to pneumonia. #Shock More likely secondary to vasculitis versus infectious etiology More likely vascular etiology, as the patient has been getting antibiotics for a long time, and he has been having fever despite those antibiotics. The patient already received more than 48 hours of IV meropenem, but did not seem to have any improvement on fever episodes. CXR not consistent with pneumonia as read by ID Dr Vargas. Cultures from ET tube and sputum culture positive likely in the setting of colonization. - Discontinued meropenem - Continue on ciprofloxacin for now - May start the patient on Zosyn - ESR, CRP, ANCA, hepatitis C, HIV, BNP ordered - Okay to try steroid #Chronic respiratory failure #History of seizure disorder #Chronic normocytic anemia - Management deferred to primary ICU team Thank you for your opportunity to participate in this patient care. We we will continue to follow-up on this patient care. The patient's management plan was discussed with my attending physician MD Florin Clayton MD, PGY3
--- NOTE | 2025-03-01 09:17 | PD.IDPROG ---
Subjective Subjective Interval history: ongoing fever deptite multiple abx with neg chest xray and ct to me cx noted. Exam Vital Signs Temp Pulse Resp BP Pulse Ox O2 Del Method O2 Flow Rate 97.5 F 95 20 107/57 L 99 Blow-by 8 03/01/25 00:00 03/01/25 06:30 03/01/25 06:30 03/01/25 06:30 03/01/25 06:30 02/27/25 16:00 03/01/25 06:29 FiO2 30 03/01/25 06:29 Narrative Exam contractures noted. can not tell if O2 need up or not. not interactive Objective - Internal Medicine Labs 03/01/25 04:27 03/01/25 04:27 Labs: Laboratory Results - last 24 hr 03/01/25 04:27 WBC 6.1 D RBC 2.60 L Hgb 7.0 L D Hct 22.6 L MCV 87 MCH 26.9 MCHC 31.0 RDW Std Deviation 78.6 H Plt Count 202 D Neut % (Auto) 77 Lymph % (Auto) 13 [place] % (Auto) 9 Eos % (Auto) 1 Baso % (Auto) 0 Neut # (Auto) 4.7 Lymph # (Auto) 0.8 L [place] # (Auto) 0.6 Eos # (Auto) 0.0 Baso # (Auto) 0.0 Immature Gran # (Auto) 0.02 H Absolute Nucleated RBC 0.00 Immature Gran % 0 Nucleated RBC % 0 Sodium 143 Potassium 2.8 L D Chloride 106 Carbon Dioxide 26.1 Anion Gap 11 BUN 9 Creatinine 0.6 D Estim Creat Clear Calc 156.9 eGFR > 60 BUN/Creatinine Ratio 15 Glucose 79 Calculated Osmolality 282 Calcium 9.4 Corrected Calcium 10.1 Phosphorus 2.0 L Magnesium 1.3 L Total Bilirubin 0.2 L AST 15 ALT 20 Alkaline Phosphatase 87 D Total Protein 6.5 Albumin 3.1 L D Globulin 3.4 Albumin/Globulin Ratio 0.9 L ABG Interpretation ABG results: 02/21/25 02/25/25 02/25/25 23:11 17:38 20:17 ABG pH 7.35 7.43 ABG pCO2 32 33 ABG pO2 39 L* 169 H D ABG HCO3 18 L 22 ABG O2 Saturation 68 L 101 H ABG Base Excess -7 L -2 VBG pH 7.50 VBG pCO2 30 L VBG pO2 66 H VBG Base Excess 1 02/26/25 04:07 ABG pH 7.45 ABG pCO2 31 L ABG pO2 146 H D ABG HCO3 21 ABG O2 Saturation 100 H ABG Base Excess -3 VBG pH VBG pCO2 VBG pO2 VBG Base Excess Assessment & Plan A&P Narrative on cipro and merrem. chest imaging neg. prior levaquin rx noted. 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 if bnp high or other signs of chf, then echo more useful. will get bnp and other w/u for vasculitis in am. ok to try steroids as abx do not seem to have worked despite s of the organisms and sterile site cx are neg. agree with dnr status. stopped the merrem for now. ok to stop cipro if steroids started latest sputum cx noted. likely colonization given cxr, so quinolone ok for now. may stop it tuesday if still on at that time. Time Spent With Patient Time: Total time spent is greater than 50% in coordination of care (as documented) at patient's floor/unit and/or counseling patient:
--- NOTE | 2025-03-01 09:38 | PD.IDPROG ---
Subjective Subjective Interval history: seen . see dictation. Exam Vital Signs Temp Pulse Resp BP Pulse Ox O2 Del Method O2 Flow Rate 96 F L 86 24 H 100/53 L 100 Blow-by 7 03/01/25 08:00 03/01/25 09:00 03/01/25 09:00 03/01/25 09:00 03/01/25 09:00 03/01/25 08:00 03/01/25 08:00 FiO2 30 03/01/25 08:00 Narrative Exam seen. see dictation Objective - Internal Medicine Labs 03/04/25 04:57 03/04/25 04:57 Labs: Laboratory Results - last 24 hr 03/01/25 04:27 WBC 6.1 D RBC 2.60 L Hgb 7.0 L D Hct 22.6 L MCV 87 MCH 26.9 MCHC 31.0 RDW Std Deviation 78.6 H Plt Count 202 D Neut % (Auto) 77 Lymph % (Auto) 13 [place] % (Auto) 9 Eos % (Auto) 1 Baso % (Auto) 0 Neut # (Auto) 4.7 Lymph # (Auto) 0.8 L [place] # (Auto) 0.6 Eos # (Auto) 0.0 Baso # (Auto) 0.0 Immature Gran # (Auto) 0.02 H Absolute Nucleated RBC 0.00 Immature Gran % 0 Nucleated RBC % 0 Sodium 143 Potassium 2.8 L D Chloride 106 Carbon Dioxide 26.1 Anion Gap 11 BUN 9 Creatinine 0.6 D Estim Creat Clear Calc 156.9 eGFR > 60 BUN/Creatinine Ratio 15 Glucose 79 Calculated Osmolality 282 Calcium 9.4 Corrected Calcium 10.1 Phosphorus 2.0 L Magnesium 1.3 L Total Bilirubin 0.2 L AST 15 ALT 20 Alkaline Phosphatase 87 D Total Protein 6.5 Albumin 3.1 L D Globulin 3.4 Albumin/Globulin Ratio 0.9 L ABG Interpretation ABG results: 02/21/25 02/25/25 02/25/25 23:11 17:38 20:17 ABG pH 7.35 7.43 ABG pCO2 32 33 ABG pO2 39 L* 169 H D ABG HCO3 18 L 22 ABG O2 Saturation 68 L 101 H ABG Base Excess -7 L -2 VBG pH 7.50 VBG pCO2 30 L VBG pO2 66 H VBG Base Excess 1 02/26/25 04:07 ABG pH 7.45 ABG pCO2 31 L ABG pO2 146 H D ABG HCO3 21 ABG O2 Saturation 100 H ABG Base Excess -3 VBG pH VBG pCO2 VBG pO2 VBG Base Excess Assessment & Plan A&P Narrative on cipro and merrem. chest imaging neg. prior levaquin rx noted. 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 if bnp high or other signs of chf, then echo more useful. will get bnp and other w/u for vasculitis in am. ok to try steroids as abx do not seem to have worked despite s of the organisms and sterile site cx are neg. agree with dnr status. stopped the merrem for now. ok to stop cipro if steroids started latest sputum cx noted. likely colonization given cxr, so quinolone ok for now. may stop it tuesday if still on at that time. Time Spent With Patient Time: Total time spent is greater than 50% in coordination of care (as documented) at patient's floor/unit and/or counseling patient:
[2025-03-01] MEDS: CATHFLO (ALTEPLASE) INJ 2 MG, Sterile Water 2.2 ML INDWELLCAT (10:38)
--- NOTE | 2025-03-01 10:50 | ESPR_ITS ---
<Statement entered by Casey Wallace MD - 03/03/25 10:16> TOTAL CC TIME: 45 MIN I saw and evaluated the patient. I reviewed the resident?s note and agree with findings and plan as documented in the resident?s note. Upon my evaluation, this patient had a high probability of imminent or life- threatening deterioration due to septic shock, which required my direct attention, intervention, and personal management. This time is exclusive of time spent on procedures, which are documented separately if performed. Vasopressors were ordered and fluid boluses given Lactic acid is being monitored Patient has multidrug-resistant species of Pseudomonas and Klebsiella as well as Proteus making treatment difficult. No perceivable abdominal pain but history of repetitive emesis is noted. Continue to hold off on tube feeding. Prior recent CT scan negative for intra-abdominal source but this may need to be repeated given patient's limitations in providing a history. Exam does not reveal a source other than pneumonia with copious green secretions <Statement entered by Craig Portillo MD - 03/01/25 17:14> Senior Resident Attestation: I supervised/discussed management plan with audit practice intern physician Dr. Lakhani, and was involved in the care of this patient. I personally saw and examined the patient and discussed the assessment and plan with the entire medicine team, including my attending. I agree with the assessment and plan as documented. Patient was seen and evaluated at the bedside. He continues to have vomiting therefore feeds were held, his electrolytes were repleted and he was given Zofran. Patient does not have any abdominal pain. Last bowel movement was 2 days ago. Will continue monitoring patient today and attempt to resume feeds tomorrow. Will continue double coverage for Pseudomonas with meropenem and ciprofloxacin. Patient remains normotensive today, his midodrine was increased to 10 mg 3 times daily. Patient's care was discussed with attending physician, Dr. Wallace. Craig Portillo MD PGY-3. Documentation for date of: 03/01/25 Subjective Subjective Interval history: Patient is a 29 years old male with past medical history of cocaine induced cerebral vasculitis, seizures, anemia, chronic respiratory failure status post tracheostomy, status post PEG tube, nonresponsive with quadriparesis admitted from subacute facility on 02/21/2025 for sepsis 2/2 pneumonia. Patient was recently discharged from inpatient for sepsis secondary to ventilator related pneumonia and cellulitis of the leg, was discharged 3 days prior to current admission. He was started on IV cefepime with significant improvement of his condition. Sputum cultures showed ESBL klebsiella, pseudomonas and proteus. Today he was planned for discharge, switched to PO Augmentin and levofloxacin. However, [facility] was called today due to tachycardia, tachypnea and diaphoresis. Vitals showed HR in 160-170s and regular, RR 40-45, BP 105/73, oxygen saturation 100% on blow by, fever of 104 F. Fingerstick glucose was 40s. Labs showed worsening bicarb 15.1, potassium 5.7, anion gap 20, glucose 181, LA 9.2, otherwise no significant lab changes. VBG showed pCO2 32, pH 7.35. EKG showed sinus tachycardia. CXR showed significant left upper lobe pneumonia. CTA and CTAP were ordered by primary team. Patient was upgraded to ICU for further management. Interval History 02/26/25: Patient was examined at bedside; he has a tracheostomy tube in place and his eyes flutter open in response to voice. Pertinent labs today include ABG pH 7.45, pCO2 31, pCO2 146, HCO3 21, anion gap downtrended to 13 from 20, lactic acid down trended to 0.7 from 9.2, and all other labs within normal limits. 02/26 chest CTA showed bilateral pneumonia that is most prominent in the right upper lobe, mild hilar lymphadenopathy, endotracheal tube tip at 4 cm above nahid, and no findings suggestive for pulmonary artery emboli. 02/26 CTAP showed right base pneumonia with no pericecal inflammatory change. Based on sputum cultures, patient's antibiotic regimen was switched from cefepime to Zosyn. Plan is to continue antibiotics to treat patient's pneumonia and sepsis, and to wean patient off of ventilatory support and sedation before he can be downgraded. 02/27/25: Patient was examined at bedside; he was awake and seems responsive to voice and aware of this personal lines underwriter's presence. Pertinent labs today include Hgb drop to 7.8 from 9.9 (MCV 86, RDW 77.0, likely hemodilution) and magnesium 1.4. 02/27 CXR shows satisfactory positioning of the tip of the left subclavian central line that was placed today (consent obtained via telephone call from patient's mother, Sara Carmona). Patient's sudden spike in lactic acid levels to 9.2 on 02/25 with rapid return to baseline is suspicious for seizure-like activity; an EEG has been ordered as a result. Patient has also recently been spiking a fever (101.4 today) despite prompt treatment of his ventilator-associated pneumonia or hospital-acquired pneumonia with IV Zosyn and IV vancomycin. Apparently, he has recurrent history of this. His current antibiotic regimen has been switched to IV meropenem and orders for a spinal MRI and possible lumbar tap have been placed to search for possible overlooked nidus for infection (i.e. spinal epidual abscess, meningitis). Patient has stopped being chemically sedated since 06:00 yesterday and has been off of pressors since 5 AM today. Plan to continue IV meropenem for patient's pneumonia and wean him off of ventilatory support before he is stabilized enough to be down-graded. 02/28/25: Per IM team note, patient had an episode of atrial fibrillation overnight in the setting of MAP 54 and fever of 101.4. Patient was examined at bedside; he appears alert, aware, and in no acute distress. He continues to be on tube feeding. Due to patient's soft BPs he was given multiple fluid boluses totaling about 4 L and given midodrine which have improved BPs somewhat. His morning dose of metoprolol was also held due to patient being tachycardic. Spinal MRI to assess for epidural abscess was unable to be completed yesterday due to patient's coughing fits. 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 Therefore, patient will be treated with a longer course of both IV meropenem and IV ciprofloxacin for double coverage of Pseudomonas. Sodium levels have been noted to be uptrending so free water flushes were increased from 50 to 60 cc/hr. Of note, patient was recently down- graded yesterday but the decision to upgrade him back to ICU was made due to ongoing signs of suspected infection and sepsis. Awaiting results from EEG and echocardiography and will reattempt spinal MRI (thoracic, lumbar) when opportune with possibility of lumbar tap. 03/01/25: Overnight, patient was able to be taken off of Levophed and received 500 mL fluid bolus. It was also reported that patient was having a lot of non- bloody emesis which is a new symptom for him. Patient was examined at bedside; he appears alert, aware, and in no acute distress. Patient is nonverbal but was able to show that he can respond yes or no via blinking signals which made it possible to assess for abdominal pain upon palpation, of which he had none. Pertinent labs today include hemoglobin drop to 7.0 from 8.9, potassium drop to 2.8 from 3.9, creatinine drop to 0.6 from 1.1, corrected calcium drop to 10.1 from 10.4, phosphorus drop to 2.0 from 3.7, and magnesium drop to 1.3 from 2.0. As mentioned yesterday, the current plan moving forward centers around treating patient's suspected ongoing MDR Pseudomonas pneumonia (corroborated by recent chest CT studies showing dramatically increased burden of diffuse tree-in-bud infiltrates and areas of bronchial thickening from October chest CT studies) with the combination of 7-day course IV meropenem and 7-day course IV ciprofloxacin for double Pseudomonas coverage. Due to the suspicion that patient's current febrile and hypotensive episodes are secondary to septic and vasodilatory inflammatory response from the aforementioned Pseudomonas pneumonia, the hope is that proper antibiotic treatment for patient's respiratory infection will also resolve his intermittent fevers of unknown origin and persistently soft blood pressures. It is also likely that patient would benefit from chronic suppressive antipseudomonal therapy after his acute infection has been cleared. Will continue to monitor patient's progression and treat his hypotension in the setting of sepsis with aggressive IV fluid resuscitation and vasopressors as needed. Exam Vital Signs Temp Pulse Resp BP Pulse Ox O2 Del Method O2 Flow Rate 96 F L 86 24 H 100/53 L 100 Blow-by 7 03/01/25 08:00 03/01/25 09:00 03/01/25 09:00 03/01/25 09:00 03/01/25 09:00 03/01/25 08:00 03/01/25 08:00 FiO2 30 03/01/25 08:00 Narrative Exam General: Awake and responsive to voice by eye tracking. Nonverbal. Thin male in no acute distress with tracheostomy. HEENT: NCAT, PERRLA, EOMI, MMM, anicteric conjunctivae. CVS: Regular rate and rhythm. Normal S1 and S2. No M/R/G. Resp: Tracheostomy tube in place with green sputum noted in lumen. Tachypneic. Coarse breathing B/L. No rhonchi, rales, crackles or wheezing. Abd: PEG tube in place. Soft, non-tender, non-distended. BS+ in all 4 quadrants. MSK: Bilateral popliteal fossa leg 4x4 cm dressings. Upper and lower extremities are stiff with decerebrate posturing. Neuro: Limited exam due to medical condition. Can answer yes or no via blinking signals when coached. Objective Labs 03/01/25 04:27 03/01/25 04:27 Labs: Laboratory Results - last 24 hr 03/01/25 04:27 WBC 6.1 D RBC 2.60 L Hgb 7.0 L D Hct 22.6 L MCV 87 MCH 26.9 MCHC 31.0 RDW Std Deviation 78.6 H Plt Count 202 D Neut % (Auto) 77 Lymph % (Auto) 13 [place] % (Auto) 9 Eos % (Auto) 1 Baso % (Auto) 0 Neut # (Auto) 4.7 Lymph # (Auto) 0.8 L [place] # (Auto) 0.6 Eos # (Auto) 0.0 Baso # (Auto) 0.0 Immature Gran # (Auto) 0.02 H Absolute Nucleated RBC 0.00 Immature Gran % 0 Nucleated RBC % 0 Sodium 143 Potassium 2.8 L D Chloride 106 Carbon Dioxide 26.1 Anion Gap 11 BUN 9 Creatinine 0.6 D Estim Creat Clear Calc 156.9 eGFR > 60 BUN/Creatinine Ratio 15 Glucose 79 Calculated Osmolality 282 Calcium 9.4 Corrected Calcium 10.1 Phosphorus 2.0 L Magnesium 1.3 L Total Bilirubin 0.2 L AST 15 ALT 20 Alkaline Phosphatase 87 D Total Protein 6.5 Albumin 3.1 L D Globulin 3.4 Albumin/Globulin Ratio 0.9 L ABG Interpretation ABG results: 02/21/25 02/25/25 02/25/25 23:11 17:38 20:17 ABG pH 7.35 7.43 ABG pCO2 32 33 ABG pO2 39 L* 169 H D ABG HCO3 18 L 22 ABG O2 Saturation 68 L 101 H ABG Base Excess -7 L -2 VBG pH 7.50 VBG pCO2 30 L VBG pO2 66 H VBG Base Excess 1 02/26/25 04:07 ABG pH 7.45 ABG pCO2 31 L ABG pO2 146 H D ABG HCO3 21 ABG O2 Saturation 100 H ABG Base Excess -3 VBG pH VBG pCO2 VBG pO2 VBG Base Excess Quality Measures Quality Measures VTE prophylaxis (Heparin sc) Assessment & Plan Assessment Current Active Medications: Generic Name Dose Route Start Last Admin Trade Name Freq PRN Reason Stop Dose Admin Albuterol/Ipratropium 3 ml 02/22/25 13:00 03/01/25 06:29 Albuterol/Ipratropium (Duoneb) Rt [place] 3 Ml Nebu INH 03/24/25 12:59 3 ml Q6HRRT RADHA Administration Atropine Sulfate 0.5 mg 02/27/25 07:30 Atropine Sulf Inj 0.1 Mg/Ml Syr 10 Ml IVP Q3MIN PRN heart rate <45 Baclofen 20 mg 02/22/25 07:41 02/23/25 03:12 Baclofen 10 Mg Tablet GT 03/24/25 07:40 20 mg Q6HR PRN Administration Spasms Protocol Gabapentin 100 mg/ Gabapentin 400 mg 02/26/25 15:00 03/01/25 06:06 300 mg GT 03/27/25 21:59 400 mg TID RADHA Administration Guaifenesin 200 mg 02/25/25 21:00 03/01/25 06:05 Guaifenesin Syrup 200 Mg/10 Ml Udc PO 03/27/25 20:59 200 mg QID RADHA Administration Protocol Heparin Sodium (Porcine) 5,000 unit 02/22/25 09:00 03/01/25 08:28 Heparin Sod Inj 5000 Unit/Ml Vial SC 03/08/25 08:59 5,000 unit BID RADHA Administration Ciprofloxacin/Dextrose 400 mg in 200 mls @ 200 mls/hr 02/28/25 18:30 03/01/25 10:36 Cipro Ivpb IV 03/07/25 18:29 200 mls/hr Q8H RADHA Administration Magnesium Sulfate 4 gm in 50 mls @ 12.5 mls/hr 03/01/25 07:37 03/01/25 08:29 Magnesium Sulfate Ivpb IV 03/01/25 11:36 12.5 mls/hr X1 ONE Administration Potassium Phosphate 15 mmol in 250 mls @ 62.5 mls/hr 03/01/25 07:38 03/01/25 08:29 Pot Phos 15 Mmol In Ns 250 Ml IV 03/01/25 11:37 62.5 mls/hr X1 ONE Administration Meropenem 2,000 mg/ Sodium 100 mls @ 100 mls/hr 03/01/25 14:00 Chloride IV 03/08/25 13:59 Q8HR RADHA Protocol Levetiracetam 1,500 mg 02/28/25 21:00 03/01/25 08:28 Levetiracetam Liqd 500 Mg/5 Ml Udc GT 03/30/25 20:59 1,500 mg BID RADHA Administration Metoprolol Tartrate 100 mg 02/23/25 09:00 03/01/25 09:09 Metoprolol Tartrate 25 Mg Tablet GT 03/25/25 08:59 Not Given On Hold: 03/01/25 09:08 BID RADHA Midodrine 10 mg 03/01/25 14:00 Midodrine 5 Mg Tablet GT 03/31/25 13:59 TID RADHA Ondansetron HCl 4 mg 02/21/25 23:14 02/28/25 13:30 Ondansetron Inj 2 Mg/Ml Inj 2 Ml IVP 03/23/25 23:13 4 mg Q6H PRN Administration NAUSEA OR VOMITING Protocol Pantoprazole Sodium 40 mg 02/22/25 09:00 03/01/25 08:28 Pantoprazole Inj 40 Mg Vial IVP 03/24/25 08:59 40 mg QDAY RADHA Administration Potassium Chloride 20 meq 03/01/25 14:00 Potassium Chloride 10% 20 Meq/15 Ml Udc GT 03/01/25 14:01 X1 ONE Sodium Chloride 3 ml 02/25/25 18:51 Sodium Chloride Rt [place] 0.9% 3 Ml Nebu INH 03/27/25 18:50 PRN PRN SOLN Sodium Chloride 4 ml 02/27/25 07:09 Sodium Cl Rt [place] 3% 4 Ml Nebu (Non-Formulary) INH 03/29/25 07:06 PRN PRN SECRETIONS Plan Patient is a 29 year old male with past medical history of cocaine-induced cerebral vasculitis, seizures, anemia, chronic respiratory failure status post tracheostomy, status post PEG tube, and nonresponsive status with quadriparesis who was initially admitted from subacute facility on 02/21/2025 for sepsis 2/2 pneumonia. [facility] was called on 02/25 due to tachycardia, tachypnea and diaphoresis and patient was upgraded to ICU for further management. Overnight, patient was able to be taken off of Levophed and received 500 mL fluid bolus. It was also reported that patient was having a lot of non-bloody emesis which is a new symptom for him. Patient was examined at bedside; he appears alert, aware, and in no acute distress. Patient is nonverbal but was able to show that he can respond yes or no via blinking signals which made it possible to assess for abdominal pain upon palpation, of which he had none. Pertinent labs today include hemoglobin drop to 7.0 from 8.9, potassium drop to 2.8 from 3.9, creatinine drop to 0.6 from 1.1, corrected calcium drop to 10.1 from 10.4, phosphorus drop to 2.0 from 3.7, and magnesium drop to 1.3 from 2.0. As mentioned yesterday, the current plan moving forward centers around treating patient's suspected ongoing MDR Pseudomonas pneumonia (corroborated by recent chest CT studies showing dramatically increased burden of diffuse tree-in-bud infiltrates and areas of bronchial thickening from October chest CT studies) with the combination of 7-day course IV meropenem and 7-day course IV ciprofloxacin for double Pseudomonas coverage. Due to the suspicion that patient's current febrile and hypotensive episodes are secondary to septic and vasodilatory inflammatory response from the aforementioned Pseudomonas pneumonia, the hope is that proper antibiotic treatment for patient's respiratory infection will also resolve his intermittent fevers of unknown origin and persistently soft blood pressures. It is also likely that patient would benefit from chronic suppressive antipseudomonal therapy after his acute infection has been cleared. Will continue to monitor patient's progression and treat his hypotension in the setting of sepsis with aggressive IV fluid resuscitation and vasopressors as needed. 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 He is also quadriplegic with spastic contractures and has reported history of seizures. Patient is status post tracheostomy and status post PEG tube (which patient is reliant on for feeding). Patient is aware and does respond to commands Dx: -EEG results are pending Rx: -Follow up on EEG to assess for seizure-like activity that may explain patient's lactic acidosis upon admission -Wound care referral ordered. -Registered dietitian referral ordered, Jevity 1.5 goal rate 68 mL/hr. -Oral care as needed. -GT Keppra 1500 mg twice daily. -GT gabapentin 400 mg 3 times daily. -GT Baclofen 20 mg every 6 hours as needed. 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 (previously seen on ET secretion studies from multiple past visits) that have not been adequately treated with prior short- term antibiotic regimens DDx: volume depletion 2/2 insensible losses (tachypneic expiration of water vapor through tracheostomy tube and diaphoretic sweating), ICU-provoked adrenal insufficiency, cardiogenic shock, central autonomic dysregulation (history of cerebral vasculitis and quadriparesis) Rx: -Fluid infusion (received about 1 L today so far, fluid balance today: +130 mL) -IV Levophed 0.05 mcg prn -GT midodrine 10 mg TID -Double anti-pseudomonal antibiotic coverage as detailed in Respiratory and ID sections RRx: -Despite fluid infusion, midodrine, and Levophed, patient's recent BPs have still been somewhat soft Respiratory: #Multifocal pneumonia, likely Pseudomonas #Chronic mucous plugging It is currently suspected that patient's ongoing febrile episodes and hypotension despite broad-coverage antibiotic regimen with IV meropenem (and previously Zosyn, vancomycin, and cefepime) could be due to 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 (previously seen on ET secretion studies from multiple past visits) that has now developed into Pseudomonas pneumonia with sepsis Dx: -Comparison of 10/31/24 and 02/26/25 chest CTAs shows similar areas of pneumonia, suggesting chronic colonization of the patient's lungs with possibly multidrug- resistant strains of Pseudomonas (previously seen on ET secretion studies from multiple past visits) that have not been adequately treated with recent short- term antibiotic stints and have now developed into Pseudomonas pneumonia -02/25 sputum culture grew Proteus mirablis sensitive to meropenem but not ciprofloxacin or levofloxacin -02/22 sputum culture grew Pseudomonas aeruginosa, ESBL Klebsiella pneumoniae, and Proteus mirablis (all sensitive to ciprofloxacin and aztreonam only) -02/25 BCx both (-) -Echocardiogram to evaluate for endocarditis or valvular vegetations was done today, results pending -Thoracic and lumbar spinal MRI (to evaluate for possible epidural abscess) may not be feasible as patient apparently has coughing fits when lying supine, will shelve this diagnostic inquiry and reevaluate its utility should patient not improve on current antibiotic regimen Rx: -IV meropenem 2000 mg q8HR (started 02/27--), day 3 of 7 day course -IV ciprofloxacin 400 mg q8HR (started 02/28--), day 2 of 7 day course -Chest physiotherapy twice daily ordered -Continue MV volume control (patient has tracheostomy tube), will wean as tolerated -INH Duoneb 3 mL q6HRRT -INH sodium chloride 4 mL prn for secretions RRx: -Despite trials of many antibiotics including cefepime, Zosyn, vancomycin, and now meropenem, patient continues to spike fevers. Since current working diagnosis is that this is 2/2 MDR Pseudomonas pneumonia, we will see if the double anti-pseudomonal coverage solves this issue and follow up on echocardiogram results. Spinal MRI and lumbar tap can be considered later to work-up other possible occult sources of infection. Gastrointestinal: #Nonbloody emesis Per nursing, patient had 3 episodes of nonbloody emesis within the past 3 days (1 a day) Possibly post-tussive in nature (patient has reportedly had coughing fits recently) On physical exam, abdomen was soft and non-distended; patient used blinking signals to convey that he denied abdominal tenderness to palpation in all quadrants DDx: post-tussive emesis, sepsis-related emesis, electrolyte derangement-related emesis, viral gastroenteritis Dx: -Patient's electrolytes were abnormal today: potassium 2.8, phosphorus 2.0, corrected calcium 10.1 and magnesium 1.3 (however, the classic culprit for emesis is hypercalcemia which is not the main derangement the patient has) Rx: -IV Zofran 4 mg q6HR prn for nausea/vomiting -Replete/correct electrolytes as appropriate RRx: -Monitor for any further vomiting episodes, abdominal distention, WBC count, or infectious signs Renal: #JESUS, likely pre-renal (resolved) 02/28 creatinine bump to 1.1 from 0.7, likely 2/2 hypoperfusion from septic shock with some contribution from volume depletion 2/2 insensible losses 03/01 creatinine back to 0.6 Rx: -Fluid infusion (received about 1 L today so far, fluid balance today: +130 mL) RRx: -Continue to monitor renal panel #Electrolyte derangements #Hypokalemia #Hypophosphatemia #Hypomagnesemia Patient's electrolytes were abnormal today: potassium 2.8, phosphorus 2.0 and magnesium 1.3 Other electrolyte levels today: sodium 143, chloride 106 Currently suspect mild refeeding syndrome (intracellular shift of potassium, magnesium and phosphate caused by insulin effect) since patient had a 3 day period of fasting and has risk factors or recent vomiting episode (metabolic alkalosis resulting in renal wasting of potassium and magnesium) or both DDx: refeeding syndrome, vomiting Rx: -Replete/correct electrolytes as appropriate -Will consider an ABG if these derangements continue to pose an issue RRx: -Continue to monitor electrolytes Endocrine: No active issues Infectious Disease: #Fever of unknown origin, intermittent and refractory to antibiotics An ongoing issue for the patient has been repeated febrile episodes despite broad-spectrum antibiotic coverage Most recently, patient spiked a fever of 101.6 last night (02/27) while actively receiving IV meropenem Currently suspect that etiology is due to 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 (previously seen on ET secretion studies from multiple past visits) that has now developed into Pseudomonas pneumonia with sepsis DDx: other occult infectious etiology (epidural abscess, endocarditis, chronic meningitis, disseminated fungal infection), rheumatologic etiology (patient has history of 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 which is more likely a [id number] ANCA-associated vasculitis), 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 -BCx (-) -CRP and ESR AM draw, results tomorrow -ANCA Screen, MPO & PR3, w/ Reflex Titer ordered, results pending -HCV, HIV (1&2) antibody screens ordered, results pending -No erythema nodosum seen on physical exam Rx: -IV meropenem 2000 mg q8HR (started 02/27--), day 3 of 7 day course -IV ciprofloxacin 400 mg q8HR (started 02/28--), day 2 of 7 day course RRx: -Despite trials of many antibiotics including cefepime, Zosyn, vancomycin, and now meropenem, patient continues to spike fevers. Since current working diagnosis is that this is 2/2 MDR Pseudomonas pneumonia, we will see if the double anti-pseudomonal coverage solves this issue while actively following up on other studies like spinal MRI, echocardiogram, or lumbar tap to work-up other possible occult sources of infection. Rheumatologic studies may also be pursued but etiologies of that nature are currently lower on the list of differentials. Hematology/Oncology: #Chronic normocytic anemia Hgb has hovered between 8-10 in the past few days However, today, patient's Hgb dropped to 7.0 from 8.9 Likely hemodilution due to concomitant drop of WBC from 10.2 to 6.1 and drop in platelet count from 305 to 202 in the setting of 4 L fluid infusion yesterday Rx: -Monitor CBC, transfuse if Hgb<7 (gave pRBC x1 today) RRx: -Continue to monitor CBC Lines: L subclavian central line Diet: PEG tube feeds. DVT prophylaxis: Heparin. GI prophylaxis: Protonix. Code status: DNR. Disposition: ICU due to persistent hypotension refractory to fluid infusion and requiring pressor support Plan of care discussed with ICU attending Dr. Wallace. John Lakhani, DO Internal Medicine, PGY-1
--- NOTE | 2025-03-01 11:43 | ESCONSULT_ITS ---
RE: STAS CASTLE : 1995 DATE OF CONSULTATION: 03/01/2025 REFERRING PHYSICIAN: Dr. Roberto Cody REASON FOR CONSULTATION: 1. Chronic encephalopathy. 2. Chronic respiratory failure due to #1 and ongoing fever. HISTORY OF PRESENT ILLNESS: The patient is a 29-year-old admitted from the subacute unit with chronic encephalopathy and fever. He is a DNR now and I respect that. His family probably wants everything done otherwise, so we will go ahead and be reasonably aggressive. We are going to work him up for encephalopathy and fever with some other tests tomorrow morning. I will check on him on Tuesday. I am going to stop his meropenem and you can leave him on Cipro for atypical coverage even though his sputum shows only Proteus, which may be a colonizer. His prior cultures have shown pseudomonas and other germs which are sensitive so quinolones are reasonable for now. I will check on him Tuesday.. PAST MEDICAL HISTORY: His past medical history is limited to information on file. PAST SURGICAL HISTORY: Surgeries including prior trach and PEG. ALLERGIES: LISTED. IMMUNIZATIONS: No known immunizations are unavailable. FAMILY HISTORY: Noncontributory. SOCIAL HISTORY: Also is noncontributory, but he comes from our subacute unit. He is not known to smoke. There is no alcohol use. No substance use noted. Apparently, he had a history of drug-induced encephalopathy originally. He is -Chinese and but that should not matter. DT: 09:37:59 TT: 10:38:00 Ref: [id number] - TID: [id number] [facility]
--- NOTE | 2025-03-01 13:27 | PC.SS ---
Update: Patient is Trach/PEG. Patient upgraded to ICU last night. Echocardiogram conducted. Tube feeds held due to patient vomiting. Patient receiving IV antibiotics. Afebrile.
[2025-03-01] MEDS: MIDODRINE 5 MG TABLET 10 MG GT ×2 (14:57→21:11)
[2025-03-01] MEDS: RINGERS LACTATED 500 ML 500 ML 999 ML IV (14:58)
[2025-03-01] MEDS: POTASSIUM CHLORIDE 10% 20 MEQ/15 ML UDC GT (14:59)
[2025-03-01 17:22] LABS: Basophils # (Auto) 0.0 Thou/mm3 (0.0-0.2); Basophils % (Auto) 0 % (0-2.5); Eosinophils # (Auto) 0.1 Thou/mm3 (0.0-0.5); Eosinophils % (Auto) 1 % (0-10); Hematocrit 23.1 % (41.0-53.0); Immature Granulocytes Auto 0.01 Thou/mm3 (0.00-0.00); Lymphocytes # (Auto) 0.7 Thou/mm3 (1.0-4.8); Lymphocytes % (Auto) 15 % (10-50); Mean Corpuscular HGB Conc 30.7 g/dl (31.0-37.0); Mean Corpuscular Hemoglobin 26.9 pg (25.0-35.0); Mean Corpuscular Volume 88 fL (80-100); Monocytes # (Auto) 0.5 Thou/mm3 (0.0-0.8); Monocytes % (Auto) 10 % (0-12); Neutrophils # (Auto) 3.5 Thou/mm3 (1.8-7.7); Neutrophils % (Auto) 73 % (37-80); Nucleated Red Blood Cell # 0.00 Thou/mm3 (0.00-0.00); Nucleated Red Blood Cell % 0 /100 WBC (0); Platelet Count 218 Thou/mm3 (140-440); RDW Standard Deviation 79.1 fL (35.1-43.9); Red Blood Count 2.64 Miln/mm3 (4.50-5.90); White Blood Count 4.8 Thou/mm3 (3.8-10.6)
[2025-03-01 17:25] LABS: Hemoglobin 7.1 g/dL (13.5-16.0)
[2025-03-01 17:33] LABS: Albumin, Serum 3.1 gm/dL (3.5-5.0); Anion Gap 13 (7-16); BUN/Creatinine Ratio 10 Ratio (12-20); Blood Urea Nitrogen 6 mg/dL (9-23); Calcium 9.2 mg/dL (8.3-10.6); Calcium (Corrected) 9.9 mg/dL (8.5-10.1); Carbon Dioxide 22.8 mMol/L (20.0-31.0); Chloride 107 mMol/L (98-107); Creatinine (Component) 0.6 mg/dL (0.6-1.3); Estimated Creatinine Clearance 156.9 mL/min (>60); Glucose 81 mg/dL (74-106); Magnesium 2.0 mg/dL (1.6-2.6); Osmolality,Calculated 281 (275-295); Phosphorous 2.5 mg/dL (2.4-5.1); Potassium 3.4 mMol/L (3.4-5.1); Sodium 143 mMol/L (136-145); eGFR > 60 See Note
[2025-03-01] MEDS: POTASSIUM CHL 10 mEq IVPB 10 MEQ/100 ML BAG 100 MEQ IV (18:23)
--- NOTE | 2025-03-01 23:43 | ESPR_ITS ---
Documentation for date of: 03/01/25 Subjective Subjective Interval history: Seen in today at the bedside, no more similar episodes reported. However, he had vomited this morning and the tube feeing has been on hold. Exam - Neurology Vital Signs Temp Pulse Resp BP Pulse Ox O2 Del Method O2 Flow Rate 97.9 F 106 H 39 H 111/64 100 Blow-by 7 03/01/25 20:00 03/01/25 23:00 03/01/25 23:00 03/01/25 23:00 03/01/25 23:00 03/01/25 20:00 03/01/25 20:00 FiO2 40 03/01/25 18:18 Objective Labs 03/01/25 15:02 03/01/25 15:02 Labs: Laboratory Results - last 24 hr 03/01/25 03/01/25 04:27 15:02 WBC 6.1 D 4.8 RBC 2.60 L 2.64 L Hgb 7.0 L D 7.1 L Hct 22.6 L 23.1 L MCV 87 88 MCH 26.9 26.9 MCHC 31.0 30.7 L RDW Std Deviation 78.6 H 79.1 H Plt Count 202 D 218 Neut % (Auto) 77 73 Lymph % (Auto) 13 15 [place] % (Auto) 9 10 Eos % (Auto) 1 1 Baso % (Auto) 0 0 Neut # (Auto) 4.7 3.5 Lymph # (Auto) 0.8 L 0.7 L [place] # (Auto) 0.6 0.5 Eos # (Auto) 0.0 0.1 Baso # (Auto) 0.0 0.0 Immature Gran # (Auto) 0.02 H 0.01 H Absolute Nucleated RBC 0.00 0.00 Immature Gran % 0 0 Nucleated RBC % 0 0 Sodium 143 143 Potassium 2.8 L D 3.4 D Chloride 106 107 Carbon Dioxide 26.1 22.8 Anion Gap 11 13 BUN 9 6 L Creatinine 0.6 D 0.6 Estim Creat Clear Calc 156.9 156.9 eGFR > 60 > 60 BUN/Creatinine Ratio 15 10 L Glucose 79 81 Calculated Osmolality 282 281 Calcium 9.4 9.2 Corrected Calcium 10.1 9.9 Phosphorus 2.0 L 2.5 Magnesium 1.3 L 2.0 Total Bilirubin 0.2 L AST 15 ALT 20 Alkaline Phosphatase 87 D Total Protein 6.5 Albumin 3.1 L D 3.1 L Globulin 3.4 Albumin/Globulin Ratio 0.9 L Blood Type O Positive Antibody Screen NEGATIVE Crossmatch See Detail Blood Bank Wristband ID Yes ABG Interpretation ABG results: 02/21/25 02/25/25 02/25/25 23:11 17:38 20:17 ABG pH 7.35 7.43 ABG pCO2 32 33 ABG pO2 39 L* 169 H D ABG HCO3 18 L 22 ABG O2 Saturation 68 L 101 H ABG Base Excess -7 L -2 VBG pH 7.50 VBG pCO2 30 L VBG pO2 66 H VBG Base Excess 1 02/26/25 04:07 ABG pH 7.45 ABG pCO2 31 L ABG pO2 146 H D ABG HCO3 21 ABG O2 Saturation 100 H ABG Base Excess -3 VBG pH VBG pCO2 VBG pO2 VBG Base Excess Assessment & Plan Additional Assessment & Plan Additional Plan: Mr. 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 Patient was admitted for sepsis workup. Patient was upgraded to ICU on 02/25 for additional management of worsening sepsis, hypoglycemia, and lactic acidosis. Patient was downgraded to medical floors on 02/27 given stability. #History of cocaine induced crebral vasculitis #s/p tracheostomy #s/p PEG tube #History of quadriparesis with spastic contractures #Seizures, with diffuse slowing and intermittent bursting with suppressed pattern Patient is noted to have a history of cocaine induced vasculitis, which to encephalopathy and a chronic vegetative state. Patient is aware and does respond to commands. Due to this, the patient is status post tracheostomy and status post PEG tube. Patient is reliant on PEG tube feeds. 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 Elevated CK 529 EEG reveals diffuse slowing with intermittent bursting with suppressed pattern. Therefore recommended to increase dose of Keppra to 1500 mg twice daily and will likely perform Repeat EEG on Tuesday on 03/02/2025 to evaluate for follow-up with increased dose of medication. Plan: increased dose of Keppra to 1500 mg twice daily and will likely perform EEG on Tuesday on 03/02/2025 to evaluate for follow-up with increased dose of medication. Gabapentin 100 mg 3 times daily Baclofen 20 mg every 6 hours as needed #Sepsis likely sec to #Ventilator associated pneumonia vs #Health acquired pneumonia Plan: Continue meropenem. Follow up with EEG, MRI lumbar spine, MRI thoracic spine. #HAGMA, resolved, 2/2 #Lactic acidosis, resolved #Hypoglycemia, resolving #Transaminitis, resolving #SVT, resolved #Sinus tachycardia #JESUS, likely pre-renal, resolving #Electrolyte abnormalities #Hyperkalemia, resolved #Hypercalcemia, resolving #Hypomagnesemia, resolved #History of sacral and bilateral popliteal fossa ulcers Rest of the management as per primary care team. PROCEDURES: Arterial Line Size (Gauge): 20
[2025-03-02] VITALS (33 sets, daily range): BP systolic 98–140; BP diastolic 53–87; PULSE 69–130; RESP 18–50; TEMP 36.9–38.4; O2SAT 92–100; BMI 16.5
[2025-03-02] MEDS: ALBUTEROL/IPRATROPIUM (Duoneb) RT SOL 3 ML NEBU INH ×4 (00:05→18:40)
[2025-03-02] MEDS: CIPROFLOXACIN/D5w 400 MG IVPB 400 MG/200 ML BAG 200 MG IV ×3 (01:33→18:40)
[2025-03-02] MEDS: guaiFENesin SYRUP 200 MG/10 ML UDC PO ×4 (05:00→21:48)
[2025-03-02] MEDS: MEROPENEM INJ 2,000 MG in SODIUM CHLORIDE 0.9% 100 ML 100 MG IV ×3 (05:01→21:49)
[2025-03-02] MEDS: MIDODRINE 5 MG TABLET 10 MG GT ×3 (05:01→21:50)
[2025-03-02] MEDS: GABAPENTIN 100 MG, GABAPENTIN 300 MG 400 MG GT ×3 (05:01→21:51)
[2025-03-02 05:49] LABS: Sed Rate (ESR) 71 mm/hr (0-15)
[2025-03-02 05:57] LABS: Basophils # (Auto) 0.0 Thou/mm3 (0.0-0.2); Basophils % (Auto) 0 % (0-2.5); Eosinophils # (Auto) 0.2 Thou/mm3 (0.0-0.5); Eosinophils % (Auto) 3 % (0-10); Hematocrit 22.2 % (41.0-53.0); Immature Granulocytes Auto 0.01 Thou/mm3 (0.00-0.00); Lymphocytes # (Auto) 0.8 Thou/mm3 (1.0-4.8); Lymphocytes % (Auto) 13 % (10-50); Mean Corpuscular HGB Conc 31.5 g/dl (31.0-37.0); Mean Corpuscular Hemoglobin 27.3 pg (25.0-35.0); Mean Corpuscular Volume 87 fL (80-100); Monocytes # (Auto) 0.8 Thou/mm3 (0.0-0.8); Monocytes % (Auto) 14 % (0-12); Neutrophils # (Auto) 4.2 Thou/mm3 (1.8-7.7); Neutrophils % (Auto) 70 % (37-80); Nucleated Red Blood Cell # 0.00 Thou/mm3 (0.00-0.00); Nucleated Red Blood Cell % 0 /100 WBC (0); Platelet Count 216 Thou/mm3 (140-440); RDW Standard Deviation 77.8 fL (35.1-43.9); Red Blood Count 2.56 Miln/mm3 (4.50-5.90); White Blood Count 6.0 Thou/mm3 (3.8-10.6)
[2025-03-02 05:58] LABS: Hemoglobin 7.0 g/dL (13.5-16.0)
[2025-03-02 06:02] LABS: B-Type Natriuretic Peptide 72 pg/mL (0-100)
[2025-03-02 06:11] LABS: Alanine Aminotransferase 16 U/L (10-49); Albumin, Serum 3.1 gm/dL (3.5-5.0); Albumin/Globulin Ratio 0.9 (1.2-2.2); Alkaline Phosphatase 90 U/L (46-116); Anion Gap 11 (7-16); Aspartate Amino Transferase 15 U/L (0-34); BUN/Creatinine Ratio 10 Ratio (12-20); Bilirubin,Total 0.2 mg/dL (0.3-1.2); Blood Urea Nitrogen 6 mg/dL (9-23); C-Reactive Protein 10.0 mg/dL (0.0-0.9); Calcium 9.4 mg/dL (8.3-10.6); Calcium (Corrected) 10.1 mg/dL (8.5-10.1); Carbon Dioxide 25.1 mMol/L (20.0-31.0); Chloride 107 mMol/L (98-107); Creatinine (Component) 0.6 mg/dL (0.6-1.3); Estimated Creatinine Clearance 156.9 mL/min (>60); Globulin 3.4 gm/dL (2.3-3.5); Glucose 75 mg/dL (74-106); Magnesium 1.4 mg/dL (1.6-2.6); Osmolality,Calculated 281 (275-295); Phosphorous 1.5 mg/dL (2.4-5.1); Potassium 3.4 mMol/L (3.4-5.1); Sodium 143 mMol/L (136-145); Total Protein 6.5 gm/dL (5.7-8.2); eGFR > 60 See Note
[2025-03-02] MEDS: Magnesium Sulfate 4 GM Ivpb 4 GM/50 ML BAG IV (07:21)
[2025-03-02] MEDS: POTASSIUM CHL 10 mEq IVPB 10 MEQ/100 ML BAG 100 MEQ IV ×2 (07:25→08:37)
--- NOTE | 2025-03-02 08:44 | XR_ITS ---
Examination: AP chest single view Technique: AP portable semiupright chest single view Date and time: March 02, 2025, 0914 hrs., Comparison 02/28/2025 Indications: Congestion difficulty breathing this week. Findings: Bilateral perihilar lung opacity Normal heart size Blunting of left lateral costophrenic angle Left subclavian central line tip SVC satisfactory position Tracheal tube tip 7.7 cm above nahid Impression: Bilateral diffuse pneumonia Small left pleural effusion
[2025-03-02] MEDS: POT PHOS 15 mMol in NS 250 ML 15 MMOL/250 ML BAG 62.5 MMOL IV (08:47)
[2025-03-02] MEDS: HEPARIN SOD INJ 5000 UNIT/ML VIAL SC ×2 (08:48→21:48)
[2025-03-02] MEDS: levETIRAcetam LIQD 500 MG/5 ML UDC 1500 MG GT ×2 (08:48→21:49)
[2025-03-02] MEDS: THIAMINE INJ 100 MG/ML VIAL 2 ML IVP (08:54)
[2025-03-02] MEDS: ACETAMINOPHEN IVPB 1,000 MG/100 ML VIAL 250 MG IV ×2 (08:57→18:40)
--- NOTE | 2025-03-02 09:51 | ESPR_ITS ---
<Statement entered by Casey Wallace MD - 03/03/25 10:24> TOTAL TIME: 45MINUTES ON DIRECT MEDICAL CARE, MANAGEMENT - COORDINATION AND COUNSELING > 50% OF TOTAL TIME I saw and evaluated the patient. I reviewed the resident?s note and agree with findings and plan as documented in the resident?s note. Hemodynamics have improved secretions remain copious - concerning for non-resolving pneumonia see residents review of abx/duration/timing and pathogen Sensitivities repeat clx ordered Documentation for date of: 03/02/25 Subjective Subjective Interval history: Patient is a 29 years old male with past medical history of cocaine induced cerebral vasculitis, seizures, anemia, chronic respiratory failure status post tracheostomy, status post PEG tube, nonresponsive with quadriparesis admitted from subacute facility on 02/21/2025 for sepsis 2/2 pneumonia. Patient was recently discharged from inpatient for sepsis secondary to ventilator related pneumonia and cellulitis of the leg, was discharged 3 days prior to current admission. He was started on IV cefepime with significant improvement of his condition. Sputum cultures showed ESBL klebsiella, pseudomonas and proteus. Today he was planned for discharge, switched to PO Augmentin and levofloxacin. However, FAMILY SUPPORT SPECIALIST was called today due to tachycardia, tachypnea and diaphoresis. Vitals showed HR in 160-170s and regular, RR 40-45, BP 105/73, oxygen saturation 100% on blow by, fever of 104 F. Fingerstick glucose was 40s. Labs showed worsening bicarb 15.1, potassium 5.7, anion gap 20, glucose 181, LA 9.2, otherwise no significant lab changes. VBG showed pCO2 32, pH 7.35. EKG showed sinus tachycardia. CXR showed significant left upper lobe pneumonia. CTA and CTAP were ordered by primary team. Patient was upgraded to ICU for further management. Interval History 02/26/25: Patient was examined at bedside; he has a tracheostomy tube in place and his eyes flutter open in response to voice. Pertinent labs today include ABG pH 7.45, pCO2 31, pCO2 146, HCO3 21, anion gap downtrended to 13 from 20, lactic acid down trended to 0.7 from 9.2, and all other labs within normal limits. 02/26 chest CTA showed bilateral pneumonia that is most prominent in the right upper lobe, mild hilar lymphadenopathy, endotracheal tube tip at 4 cm above nahid, and no findings suggestive for pulmonary artery emboli. 02/26 CTAP showed right base pneumonia with no pericecal inflammatory change. Based on sputum cultures, patient's antibiotic regimen was switched from cefepime to Zosyn. Plan is to continue antibiotics to treat patient's pneumonia and sepsis, and to wean patient off of ventilatory support and sedation before he can be downgraded. 02/27/25: Patient was examined at bedside; he was awake and seems responsive to voice and aware of this junior technical writer's presence. Pertinent labs today include Hgb drop to 7.8 from 9.9 (MCV 86, RDW 77.0, likely hemodilution) and magnesium 1.4. 02/27 CXR shows satisfactory positioning of the tip of the left subclavian central line that was placed today (consent obtained via telephone call from patient's mother, Sara Carmona). Patient's sudden spike in lactic acid levels to 9.2 on 02/25 with rapid return to baseline is suspicious for seizure-like activity; an EEG has been ordered as a result. Patient has also recently been spiking a fever (101.4 today) despite prompt treatment of his ventilator-associated pneumonia or hospital-acquired pneumonia with IV Zosyn and IV vancomycin. Apparently, he has recurrent history of this. His current antibiotic regimen has been switched to IV meropenem and orders for a spinal MRI and possible lumbar tap have been placed to search for possible overlooked nidus for infection (i.e. spinal epidual abscess, meningitis). Patient has stopped being chemically sedated since 06:00 yesterday and has been off of pressors since 5 AM today. Plan to continue IV meropenem for patient's pneumonia and wean him off of ventilatory support before he is stabilized enough to be down-graded. 02/28/25: Per IM team note, patient had an episode of atrial fibrillation overnight in the setting of MAP 54 and fever of 101.4. Patient was examined at bedside; he appears alert, aware, and in no acute distress. He continues to be on tube feeding. Due to patient's soft BPs he was given multiple fluid boluses totaling about 4 L and given midodrine which have improved BPs somewhat. His morning dose of metoprolol was also held due to patient being tachycardic. Spinal MRI to assess for epidural abscess was unable to be completed yesterday due to patient's coughing fits. 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 Therefore, patient will be treated with a longer course of both IV meropenem and IV ciprofloxacin for double coverage of Pseudomonas. Sodium levels have been noted to be uptrending so free water flushes were increased from 50 to 60 cc/hr. Of note, patient was recently down- graded yesterday but the decision to upgrade him back to ICU was made due to ongoing signs of suspected infection and sepsis. Awaiting results from EEG and echocardiography and will reattempt spinal MRI (thoracic, lumbar) when opportune with possibility of lumbar tap. 03/01/25: Overnight, patient was able to be taken off of Levophed and received 500 mL fluid bolus. It was also reported that patient was having a lot of non- bloody emesis which is a new symptom for him. Patient was examined at bedside; he appears alert, aware, and in no acute distress. Patient is nonverbal but was able to show that he can respond yes or no via blinking signals which made it possible to assess for abdominal pain upon palpation, of which he had none. Pertinent labs today include hemoglobin drop to 7.0 from 8.9, potassium drop to 2.8 from 3.9, creatinine drop to 0.6 from 1.1, corrected calcium drop to 10.1 from 10.4, phosphorus drop to 2.0 from 3.7, and magnesium drop to 1.3 from 2.0. As mentioned yesterday, the current plan moving forward centers around treating patient's suspected ongoing MDR Pseudomonas pneumonia (corroborated by recent chest CT studies showing dramatically increased burden of diffuse tree-in-bud infiltrates and areas of bronchial thickening from October chest CT studies) with the combination of 7-day course IV meropenem and 7-day course IV ciprofloxacin for double Pseudomonas coverage. Due to the suspicion that patient's current febrile and hypotensive episodes are secondary to septic and vasodilatory inflammatory response from the aforementioned Pseudomonas pneumonia, the hope is that proper antibiotic treatment for patient's respiratory infection will also resolve his intermittent fevers of unknown origin and persistently soft blood pressures. It is also likely that patient would benefit from chronic suppressive antipseudomonal therapy after his acute infection has been cleared. Will continue to monitor patient's progression and treat his hypotension in the setting of sepsis with aggressive IV fluid resuscitation and vasopressors as needed. 03/02/2025: Overnight patient had a temperature spike of 101F and an episode of posttussive emesis. Input 660 cc, output 1065 cc, balance -405 cc. 1+ BM. Patient is tracking with eyes and responsive to noxious stimuli. Labs showed Hb 7, WBC 6, PLT 216, K3.4, Phos 1.5, Mg 1.4, CRP 10, glucose 75. Patient was not able to get his MRI yesterday due to movement, will reattempt today and placed as needed diazepam for agitation. Currently on meropenem and ciprofloxacin for MDR VAP. Will resend sputum culture today. Repleted with K-Phos 30 mmol IV x 1, magnesium sulfate 4 g IV x 1. Exam Vital Signs Temp Pulse Resp BP Pulse Ox O2 Del Method O2 Flow Rate 99.3 F 112 H 24 H 117/66 99 Blow-by 10 03/02/25 04:00 03/02/25 07:41 03/02/25 07:41 03/02/25 06:00 03/02/25 07:41 03/02/25 04:00 03/02/25 07:41 FiO2 35 03/02/25 07:41 Narrative Exam General: Awake and responsive to voice by eye tracking. Nonverbal. Thin male in no acute distress with tracheostomy. HEENT: NCAT, PERRLA, EOMI, MMM, anicteric conjunctivae. CVS: Regular rate and rhythm. Normal S1 and S2. No M/R/G. Resp: Tracheostomy tube in place with green sputum noted in lumen. Tachypneic. Coarse breathing B/L. No rhonchi, rales, crackles or wheezing. Abd: PEG tube in place. Soft, non-tender, non-distended. BS+ in all 4 quadrants. MSK: Bilateral popliteal fossa leg 4x4 cm dressings. Upper and lower extremities are stiff with decerebrate posturing. Neuro: Limited exam due to medical condition. Can answer yes or no via blinking signals when coached. Objective Labs 03/02/25 04:16 03/02/25 04:16 Labs: Laboratory Results - last 24 hr 03/01/25 03/02/25 15:02 04:16 WBC 4.8 6.0 RBC 2.64 L 2.56 L Hgb 7.1 L 7.0 L Hct 23.1 L 22.2 L MCV 88 87 MCH 26.9 27.3 MCHC 30.7 L 31.5 RDW Std Deviation 79.1 H 77.8 H Plt Count 218 216 Neut % (Auto) 73 70 Lymph % (Auto) 15 13 Reynolds % (Auto) 10 14 H Eos % (Auto) 1 3 Baso % (Auto) 0 0 Neut # (Auto) 3.5 4.2 Lymph # (Auto) 0.7 L 0.8 L Reynolds # (Auto) 0.5 0.8 Eos # (Auto) 0.1 0.2 Baso # (Auto) 0.0 0.0 Immature Gran # (Auto) 0.01 H 0.01 H Absolute Nucleated RBC 0.00 0.00 Immature Gran % 0 0 Nucleated RBC % 0 0 ESR 71 H Sodium 143 143 Potassium 3.4 D 3.4 Chloride 107 107 Carbon Dioxide 22.8 25.1 Anion Gap 13 11 BUN 6 L 6 L Creatinine 0.6 0.6 Estim Creat Clear Calc 156.9 156.9 eGFR > 60 > 60 BUN/Creatinine Ratio 10 L 10 L Glucose 81 75 Calculated Osmolality 281 281 Calcium 9.2 9.4 Corrected Calcium 9.9 10.1 Phosphorus 2.5 1.5 L Magnesium 2.0 1.4 L Total Bilirubin 0.2 L AST 15 ALT 16 Alkaline Phosphatase 90 C-Reactive Prot, Quant 10.0 H B-Natriuretic Peptide 72 Total Protein 6.5 Albumin 3.1 L 3.1 L Globulin 3.4 Albumin/Globulin Ratio 0.9 L Blood Type O Positive Antibody Screen NEGATIVE Crossmatch See Detail Blood Bank Wristband ID Yes ABG Interpretation ABG results: 02/21/25 02/25/25 02/25/25 23:11 17:38 20:17 ABG pH 7.35 7.43 ABG pCO2 32 33 ABG pO2 39 L* 169 H D ABG HCO3 18 L 22 ABG O2 Saturation 68 L 101 H ABG Base Excess -7 L -2 VBG pH 7.50 VBG pCO2 30 L VBG pO2 66 H VBG Base Excess 1 02/26/25 04:07 ABG pH 7.45 ABG pCO2 31 L ABG pO2 146 H D ABG HCO3 21 ABG O2 Saturation 100 H ABG Base Excess -3 VBG pH VBG pCO2 VBG pO2 VBG Base Excess Quality Measures Quality Measures VTE prophylaxis (Heparin sc) Assessment & Plan Assessment Current Active Medications: Generic Name Dose Route Start Last Admin Trade Name Freq PRN Reason Stop Dose Admin Albuterol/Ipratropium 3 ml 02/22/25 13:00 03/02/25 07:40 Albuterol/Ipratropium (Duoneb) Rt [place] 3 Ml Nebu INH 03/24/25 12:59 3 ml Q6HRRT RADHA Administration Atropine Sulfate 0.5 mg 02/27/25 07:30 Atropine Sulf Inj 0.1 Mg/Ml Syr 10 Ml IVP Q3MIN PRN heart rate <45 Baclofen 20 mg 02/22/25 07:41 02/23/25 03:12 Baclofen 10 Mg Tablet GT 03/24/25 07:40 20 mg Q6HR PRN Administration Spasms Protocol Dextrose 25 ml 03/01/25 22:54 Dextrose 50%-Water Inj 50 Ml Syringe IV 03/31/25 22:53 Q15MIN PRN BG 50-70 responsive npo pt Dextrose 50 ml 03/01/25 22:54 Dextrose 50%-Water Inj 50 Ml Syringe IV 03/31/25 22:53 Q15MIN PRN BG <50 OR BG <70 & pt unresponsive Diazepam 1 mg 03/02/25 08:46 Diazepam Inj 5 Mg/Ml Vial 2 Ml IVP 03/07/25 08:45 X1 PRN Prior to MRI Gabapentin 100 mg/ Gabapentin 400 mg 02/26/25 15:00 03/02/25 05:01 300 mg GT 03/27/25 21:59 400 mg TID RADHA Administration Glucagon 1 mg 03/01/25 22:54 Glucagon Inj 1 Mg Vial IM Q15MIN PRN BG <70, and no IV access Guaifenesin 200 mg 02/25/25 21:00 03/02/25 05:00 Guaifenesin Syrup 200 Mg/10 Ml Udc PO 03/27/25 20:59 200 mg QID RADHA Administration Protocol Heparin Sodium (Porcine) 5,000 unit 02/22/25 09:00 03/02/25 08:48 Heparin Sod Inj 5000 Unit/Ml Vial SC 03/08/25 08:59 5,000 unit BID RADHA Administration Ciprofloxacin/Dextrose 400 mg in 200 mls @ 200 mls/hr 02/28/25 18:30 03/02/25 09:36 Cipro Ivpb IV 03/07/25 18:29 200 mls/hr Q8H RADHA Administration Meropenem 2,000 mg/ Sodium 100 mls @ 100 mls/hr 03/01/25 14:00 03/02/25 05:01 Chloride IV 03/08/25 13:59 100 mls/hr Q8HR RADHA Administration Protocol Potassium Chloride 10 meq in 100 mls @ 100 mls/hr 03/02/25 06:49 03/02/25 08:53 Kcl Ivpb IV 03/02/25 10:48 Not Given Q1H RADHA Potassium Phosphate 15 mmol in 250 mls @ 62.5 mls/hr 03/02/25 06:50 03/02/25 08:47 Pot Phos 15 Mmol In Ns 250 Ml IV 03/02/25 10:49 62.5 mls/hr X1 ONE Administration Magnesium Sulfate 4 gm in 50 mls @ 12.5 mls/hr 03/02/25 06:50 03/02/25 07:21 Magnesium Sulfate Ivpb IV 03/02/25 10:49 12.5 mls/hr X1 ONE Administration Acetaminophen 1,000 mg in 100 mls @ 250 mls/hr 03/02/25 07:30 03/02/25 08:57 Ofirmev Inj IV 03/03/25 00:23 250 mls/hr Q6HR PRN Administration Temp >99.9 or pain Potassium Chloride 100 mls @ 50 mls/hr 03/02/25 10:00 Kcl Ivpb IV 03/02/25 11:59 X1 ONE Protocol Levetiracetam 1,500 mg 02/28/25 21:00 03/02/25 08:48 Levetiracetam Liqd 500 Mg/5 Ml Udc GT 03/30/25 20:59 1,500 mg BID RADHA Administration Metoprolol Tartrate 100 mg 02/23/25 09:00 03/01/25 09:09 Metoprolol Tartrate 25 Mg Tablet GT 03/25/25 08:59 Not Given On Hold: 03/01/25 09:08 BID RADHA Midodrine 10 mg 03/01/25 14:00 03/02/25 05:01 Midodrine 5 Mg Tablet GT 03/31/25 13:59 10 mg TID RADHA Administration Ondansetron HCl 4 mg 02/21/25 23:14 02/28/25 13:30 Ondansetron Inj 2 Mg/Ml Inj 2 Ml IVP 03/23/25 23:13 4 mg Q6H PRN Administration NAUSEA OR VOMITING Protocol Pantoprazole Sodium 40 mg 02/22/25 09:00 03/02/25 08:48 Pantoprazole Inj 40 Mg Vial IVP 03/24/25 08:59 40 mg QDAY RADHA Administration Sodium Chloride 3 ml 02/25/25 18:51 Sodium Chloride Rt [place] 0.9% 3 Ml Nebu INH 03/27/25 18:50 PRN PRN SOLN Sodium Chloride 4 ml 02/27/25 07:09 Sodium Cl Rt [place] 3% 4 Ml Nebu (Non-Formulary) INH 03/29/25 07:06 PRN PRN SECRETIONS Thiamine HCl 100 mg 03/02/25 09:00 03/02/25 08:54 Thiamine Inj 100 Mg/Ml Vial 2 Ml IVP 04/01/25 08:59 100 mg QDAY RADHA Administration Plan Patient is a 29 year old male with past medical history of cocaine-induced cerebral vasculitis, seizures, anemia, chronic respiratory failure status post tracheostomy, status post PEG tube, and nonresponsive status with quadriparesis who was initially admitted from subacute facility on 02/21/2025 for sepsis 2/2 pneumonia. FAMILY SUPPORT SPECIALIST was called on 02/25 due to tachycardia, tachypnea and diaphoresis and patient was upgraded to ICU for further management. Overnight, patient was able to be taken off of Levophed and received 500 mL fluid bolus. It was also reported that patient was having a lot of non-bloody emesis which is a new symptom for him. Patient was examined at bedside; he appears alert, aware, and in no acute distress. Patient is nonverbal but was able to show that he can respond yes or no via blinking signals which made it possible to assess for abdominal pain upon palpation, of which he had none. Pertinent labs today include hemoglobin drop to 7.0 from 8.9, potassium drop to 2.8 from 3.9, creatinine drop to 0.6 from 1.1, corrected calcium drop to 10.1 from 10.4, phosphorus drop to 2.0 from 3.7, and magnesium drop to 1.3 from 2.0. As mentioned yesterday, the current plan moving forward centers around treating patient's suspected ongoing MDR Pseudomonas pneumonia (corroborated by recent chest CT studies showing dramatically increased burden of diffuse tree-in-bud infiltrates and areas of bronchial thickening from October chest CT studies) with the combination of 7-day course IV meropenem and 7-day course IV ciprofloxacin for double Pseudomonas coverage. Due to the suspicion that patient's current febrile and hypotensive episodes are secondary to septic and vasodilatory inflammatory response from the aforementioned Pseudomonas pneumonia, the hope is that proper antibiotic treatment for patient's respiratory infection will also resolve his intermittent fevers of unknown origin and persistently soft blood pressures. It is also likely that patient would benefit from chronic suppressive antipseudomonal therapy after his acute infection has been cleared. Will continue to monitor patient's progression and treat his hypotension in the setting of sepsis with aggressive IV fluid resuscitation and vasopressors as needed. 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 He is also quadriplegic with spastic contractures and has reported history of seizures. Patient is status post tracheostomy and status post PEG tube (which patient is reliant on for feeding). Patient is aware and does respond to commands Dx: -EEG results are pending Rx: -Follow up on EEG to assess for seizure-like activity that may explain patient's lactic acidosis upon admission -Wound care referral ordered. -Registered dietitian referral ordered, Jevity 1.5 goal rate 68 mL/hr. -Oral care as needed. -GT Keppra 1500 mg twice daily. -GT gabapentin 400 mg 3 times daily. -GT Baclofen 20 mg every 6 hours as needed. 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 (previously seen on ET secretion studies from multiple past visits) that have not been adequately treated with prior short- term antibiotic regimens DDx: volume depletion 2/2 insensible losses (tachypneic expiration of water vapor through tracheostomy tube and diaphoretic sweating), ICU-provoked adrenal insufficiency, cardiogenic shock, central autonomic dysregulation (history of cerebral vasculitis and quadriparesis) Rx: -Fluid infusion (received about 1 L today so far, fluid balance today: +130 mL) -IV Levophed 0.05 mcg prn -GT midodrine 10 mg TID -Double anti-pseudomonal antibiotic coverage as detailed in Respiratory and ID sections RRx: -Despite fluid infusion, midodrine, and Levophed, patient's recent BPs have still been somewhat soft Respiratory: #Multifocal pneumonia, likely Pseudomonas #Chronic mucous plugging It is currently suspected that patient's ongoing febrile episodes and hypotension despite broad-coverage antibiotic regimen with IV meropenem (and previously Zosyn, vancomycin, and cefepime) could be due to 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 (previously seen on ET secretion studies from multiple past visits) that has now developed into Pseudomonas pneumonia with sepsis Dx: -Comparison of 10/31/24 and 02/26/25 chest CTAs shows similar areas of pneumonia, suggesting chronic colonization of the patient's lungs with possibly multidrug- resistant strains of Pseudomonas (previously seen on ET secretion studies from multiple past visits) that have not been adequately treated with recent short- term antibiotic stints and have now developed into Pseudomonas pneumonia -02/25 sputum culture grew Proteus mirablis sensitive to meropenem but not ciprofloxacin or levofloxacin -02/22 sputum culture grew Pseudomonas aeruginosa, ESBL Klebsiella pneumoniae, and Proteus mirablis (all sensitive to ciprofloxacin and aztreonam only) -02/10 sputum culture grew Pseudomonas resistant to meropenem, Klebsiella indeterminant for Zosyn and Proteus resistant to cefepime and Cipro ?/ sputum culture grew Klebsiella and Proteus sensitive to cefepime, meropenem and ciprofloxacin. -02/25 BCx both (-) ? 7/3 urine grew Pseudomonas resistant to meropenem and cefepime -Echocardiogram to evaluate for endocarditis or valvular vegetations was done today, results pending -Thoracic and lumbar spinal MRI (to evaluate for possible epidural abscess) may not be feasible as patient apparently has coughing fits when lying supine, will shelve this diagnostic inquiry and reevaluate its utility should patient not improve on current antibiotic regimen Rx: -Ceftriaxone 1 g IV daily [02/22 - 02/22] ? Cefepime 2 g IV daily [02/22 - 02/25] ? Vancomycin IV [02/21 - 02/22, 02/23 - 02/27 intermittent dosing based on trough] ?Zosyn 3.375 g IV Q8 hourly [02/25 - 02/27] ?Ciprofloxacin 400 mg IV every 8 hourly [02/27 - 02/28] -IV meropenem 2000 mg q8HR (started 02/27--), day 3 of 7 day course -IV ciprofloxacin 400 mg q8HR (started 02/28--), day 2 of 7 day course -Chest physiotherapy twice daily ordered -INH Duoneb 3 mL q6HRRT -INH sodium chloride 4 mL prn for secretions RRx: -Initially in September patient's previous sputum culture on file grew Klebsiella and Proteus pansensitive to most tested antibiotics including meropenem, ciprofloxacin and Zosyn. Over the course of 5 months patient rapidly developed multidrug-resistant organisms. ? Patient's sputum culture from 02/22 grew Pseudomonas, Klebsiella and Proteus. Pseudomonas and Proteus was sensitive to cefepime however Klebsiella was resistant. All tested organisms were sensitive to ciprofloxacin however. During the time period from 02/22 - 02/25 patient was on cefepime, ceftriaxone and vancomycin. Therefore not effective coverage for ESBL Klebsiella which was rapidly evolving. Also patient's sensitivity report was included which showed Pseudomonas was sensitive to ceftriaxone. This was very perplexing and further investigation are being conducted. -Despite trials of many antibiotics including cefepime, Zosyn, vancomycin, and now meropenem, patient continues to spike fevers. Since current working diagnosis is that this is 2/2 MDR Pseudomonas pneumonia, we will see if the double anti-pseudomonal coverage solves this issue . Spinal MRI pending to rule out any other source of infection. Gastrointestinal: #Nonbloody emesis Per nursing, patient had 3 episodes of nonbloody emesis within the past 3 days (1 a day) Possibly post-tussive in nature (patient has reportedly had coughing fits recently) On physical exam, abdomen was soft and non-distended; patient used blinking signals to convey that he denied abdominal tenderness to palpation in all quadrants DDx: post-tussive emesis, sepsis-related emesis, electrolyte derangement-related emesis, viral gastroenteritis Dx: -Patient's electrolytes were abnormal today: potassium 2.8, phosphorus 2.0, corrected calcium 10.1 and magnesium 1.3 (however, the classic culprit for emesis is hypercalcemia which is not the main derangement the patient has) Rx: -IV Zofran 4 mg q6HR prn for nausea/vomiting -Replete/correct electrolytes as appropriate RRx: -Monitor for any further vomiting episodes, abdominal distention, WBC count, or infectious signs Renal: #Hypokalemia #Hypophosphatemia #Hypomagnesemia Patient's electrolytes were abnormal today: potassium 2.8, phosphorus 2.0 and magnesium 1.3 Other electrolyte levels today: sodium 143, chloride 106 Currently suspect mild refeeding syndrome (intracellular shift of potassium, magnesium and phosphate caused by insulin effect) since patient had a 3 day period of fasting and has risk factors or recent vomiting episode (metabolic alkalosis resulting in renal wasting of potassium and magnesium) or both DDx: refeeding syndrome, vomiting Rx: - Repleted with K-Phos 30 mmol IV x 1, magnesium sulfate 4 g IV x 1 RRx: -Continue to monitor electrolytes Endocrine: No active issues Infectious Disease: #Fever of unknown origin, intermittent and refractory to antibiotics An ongoing issue for the patient has been repeated febrile episodes despite broad-spectrum antibiotic coverage Most recently, patient spiked a fever of 101.6 last night (02/27) while actively receiving IV meropenem Currently suspect that etiology is due to 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 (previously seen on ET secretion studies from multiple past visits) that has now developed into Pseudomonas pneumonia with sepsis DDx: other occult infectious etiology (epidural abscess, endocarditis, chronic meningitis, disseminated fungal infection), rheumatologic etiology (patient has 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), 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 -BCx (-) -CRP and ESR AM draw, results tomorrow -ANCA Screen, MPO & PR3, w/ Reflex Titer ordered, results pending -HCV, HIV (1&2) antibody screens ordered, results pending -No erythema nodosum seen on physical exam Rx: -IV meropenem 2000 mg q8HR (started 02/27--), day 3 of 7 day course -IV ciprofloxacin 400 mg q8HR (started 02/28--), day 2 of 7 day course RRx: -Despite trials of many antibiotics including cefepime, Zosyn, vancomycin, and now meropenem, patient continues to spike fevers. Since current working diagnosis is that this is 2/2 MDR Pseudomonas pneumonia, we will see if the double anti-pseudomonal coverage solves this issue while actively following up on other studies like spinal MRI, echocardiogram, or lumbar tap to work-up other possible occult sources of infection. Rheumatologic studies may also be pursued but etiologies of that nature are currently lower on the list of differentials. Hematology/Oncology: #Chronic normocytic anemia Hgb has hovered between 8-10 in the past few days However, today, patient's Hgb dropped to 7.0 from 8.9 Likely hemodilution due to concomitant drop of WBC from 10.2 to 6.1 and drop in platelet count from 305 to 202 in the setting of 4 L fluid infusion yesterday Rx: -Monitor CBC, transfuse if Hgb<7 (gave pRBC x1 today) RRx: -Continue to monitor CBC Lines: L subclavian central line Diet: PEG tube feeds. DVT prophylaxis: Heparin. GI prophylaxis: Protonix. Code status: DNR. Disposition: IV antibiotics, BP monitoring and as needed vasopressors. Pending MRI spine Plan of care discussed with Attending Dr. Madison Cabrera MD PGY 2 Disclaimer: This note was dictated by speech recognition. Minor errors in financial administrative assistant may be present due to voice recognition software.
[2025-03-02] MEDS: POTASSIUM CHL 20 mEq IVPB 100 ML 50 MEQ IV (10:19)
[2025-03-02 11:33] LABS: Procalcitonin 0.68 ng/ml (0.0-0.49)
[2025-03-02] MEDS: DEXTROSE 5%-WATER 1,000 ML 100 ML IV ×2 (12:07→23:45)
[2025-03-02 12:20] LABS: HIV (1&2) Antibody Rapid Non-Reactive
[2025-03-02] MEDS: DIAZEPAM INJ 5 MG/ML VIAL 2 ML 1 MG IVP (16:00)
--- NOTE | 2025-03-02 16:44 | PC.NURSE ---
MRI unsuccessful. Patient was sent down with RN and RT for MRI of thoracic and lumbar, per Doctors order to give IV diazepam to keep pt calm during MRI. RN gave diazepam 1 mg as ordered and pt remained calm in the pre MRI area but once patient was suctioned for large amount of phlegm patient started to cough aggressively almost off the bed. printing technician stated this is not safe to proceed because of the danger of patient coughing and hitting head on mri tube. printing technician spoke with Dr. Cabrera and reported concerns. MRI is on hold for now, patient returned to floor.
--- NOTE | 2025-03-02 23:15 | PD.VPROG1 ---
Telemedicine visit statement This visit was conducted with the use of phone was obtained on 03/02/25 at 2315. Documentation for date of: 03/02/25 Subjective Subjective Interval history: Patient is in telemetry, no real changes noted, Still gets coughing spells without hemodynamic changes and high rectal temp Virtual exam Vital Signs Temp Pulse Resp BP Pulse Ox O2 Del Method O2 Flow Rate 100.3 F 128 H 37 H 111/87 H 93 L T-Piece 10 03/02/25 22:00 03/02/25 22:00 03/02/25 22:00 03/02/25 22:00 03/02/25 22:00 03/02/25 20:00 03/02/25 18:33 FiO2 35 03/02/25 20:00 Objective Labs 03/02/25 04:16 03/02/25 04:16 Labs: Laboratory Results - last 24 hr 03/02/25 04:16 WBC 6.0 RBC 2.56 L Hgb 7.0 L Hct 22.2 L MCV 87 MCH 27.3 MCHC 31.5 RDW Std Deviation 77.8 H Plt Count 216 Neut % (Auto) 70 Lymph % (Auto) 13 Andrews % (Auto) 14 H Eos % (Auto) 3 Baso % (Auto) 0 Neut # (Auto) 4.2 Lymph # (Auto) 0.8 L Andrews # (Auto) 0.8 Eos # (Auto) 0.2 Baso # (Auto) 0.0 Immature Gran # (Auto) 0.01 H Absolute Nucleated RBC 0.00 Immature Gran % 0 Nucleated RBC % 0 ESR 71 H Sodium 143 Potassium 3.4 Chloride 107 Carbon Dioxide 25.1 Anion Gap 11 BUN 6 L Creatinine 0.6 Estim Creat Clear Calc 156.9 eGFR > 60 BUN/Creatinine Ratio 10 L Glucose 75 Calculated Osmolality 281 Calcium 9.4 Corrected Calcium 10.1 Phosphorus 1.5 L Magnesium 1.4 L Total Bilirubin 0.2 L AST 15 ALT 16 Alkaline Phosphatase 90 C-Reactive Prot, Quant 10.0 H B-Natriuretic Peptide 72 Total Protein 6.5 Albumin 3.1 L Globulin 3.4 Albumin/Globulin Ratio 0.9 L Procalcitonin 0.68 H HIV 1&2 Antibody Rapid Non-Reactive ABG Interpretation ABG results: 02/21/25 02/25/25 02/25/25 23:11 17:38 20:17 ABG pH 7.35 7.43 ABG pCO2 32 33 ABG pO2 39 L* 169 H D ABG HCO3 18 L 22 ABG O2 Saturation 68 L 101 H ABG Base Excess -7 L -2 VBG pH 7.50 VBG pCO2 30 L VBG pO2 66 H VBG Base Excess 1 02/26/25 04:07 ABG pH 7.45 ABG pCO2 31 L ABG pO2 146 H D ABG HCO3 21 ABG O2 Saturation 100 H ABG Base Excess -3 VBG pH VBG pCO2 VBG pO2 VBG Base Excess Assessment & Plan Problem List (1) Encephalopathy: Status: Acute (2) UTI (urinary tract infection): Status: Acute Assessment and plan: on antibioitcs (3) Dehydration: Status: Acute Assessment and plan: treated with IVF.
[2025-03-03] VITALS (31 sets, daily range): BP systolic 88–141; BP diastolic 55–75; PULSE 68–118; RESP 15–50; TEMP 36.3–38.3; O2SAT 92–100
[2025-03-03] MEDS: ALBUTEROL/IPRATROPIUM (Duoneb) RT SOL 3 ML NEBU INH ×4 (00:40→19:15)
[2025-03-03] MEDS: CIPROFLOXACIN/D5w 400 MG IVPB 400 MG/200 ML BAG 200 MG IV ×3 (02:32→17:52)
[2025-03-03 05:35] LABS: Basophils # (Auto) 0.0 Thou/mm3 (0.0-0.2); Basophils % (Auto) 0 % (0-2.5); Eosinophils # (Auto) 0.1 Thou/mm3 (0.0-0.5); Eosinophils % (Auto) 1 % (0-10); Hematocrit 24.7 % (41.0-53.0); Hemoglobin 7.7 g/dL (13.5-16.0); Immature Granulocytes Auto 0.04 Thou/mm3 (0.00-0.00); Lymphocytes # (Auto) 1.0 Thou/mm3 (1.0-4.8); Lymphocytes % (Auto) 13 % (10-50); Mean Corpuscular HGB Conc 31.2 g/dl (31.0-37.0); Mean Corpuscular Hemoglobin 27.0 pg (25.0-35.0); Mean Corpuscular Volume 87 fL (80-100); Monocytes # (Auto) 1.0 Thou/mm3 (0.0-0.8); Monocytes % (Auto) 13 % (0-12); Neutrophils # (Auto) 5.2 Thou/mm3 (1.8-7.7); Neutrophils % (Auto) 71 % (37-80); Nucleated Red Blood Cell # 0.00 Thou/mm3 (0.00-0.00); Nucleated Red Blood Cell % 0 /100 WBC (0); Platelet Count 254 Thou/mm3 (140-440); RDW Standard Deviation 77.8 fL (35.1-43.9); Red Blood Count 2.85 Miln/mm3 (4.50-5.90); White Blood Count 7.3 Thou/mm3 (3.8-10.6)
[2025-03-03] MEDS: MEROPENEM INJ 2,000 MG in SODIUM CHLORIDE 0.9% 100 ML 100 MG IV ×3 (06:00→21:00)
[2025-03-03] MEDS: ONDANSETRON INJ 2 MG/ML INJ 2 ML 4 MG IVP (06:19)
[2025-03-03 06:20] LABS: Alanine Aminotransferase 14 U/L (10-49); Albumin, Serum 3.5 gm/dL (3.5-5.0); Albumin/Globulin Ratio 0.9 (1.2-2.2); Alkaline Phosphatase 101 U/L (46-116); Anion Gap 10 (7-16); Aspartate Amino Transferase 19 U/L (0-34); BUN/Creatinine Ratio 7 Ratio (12-20); Bilirubin,Total 0.2 mg/dL (0.3-1.2); Blood Urea Nitrogen 5 mg/dL (9-23); Calcium 9.6 mg/dL (8.3-10.6); Calcium (Corrected) 10.0 mg/dL (8.5-10.1); Carbon Dioxide 23.1 mMol/L (20.0-31.0); Chloride 101 mMol/L (98-107); Creatinine (Component) 0.7 mg/dL (0.6-1.3); Estimated Creatinine Clearance 123.1 mL/min (>60); Globulin 3.7 gm/dL (2.3-3.5); Glucose 97 mg/dL (74-106); Magnesium 1.9 mg/dL (1.6-2.6); Osmolality,Calculated 265 (275-295); Phosphorous 2.6 mg/dL (2.4-5.1); Potassium 3.7 mMol/L (3.4-5.1); Sodium 134 mMol/L (136-145); Total Protein 7.2 gm/dL (5.7-8.2); eGFR > 60 See Note
--- NOTE | 2025-03-03 06:35 | PC.NURSE ---
AROUND 0600, DISCOVERED THAT PT HAS, WHAT LOOKS LIKE, A LARGE AMOUNT OF GASTRIC CONTENT COMING OUT OF TRACH (A LARGE AMOUNT OF GREENISH FLUID). PEG TUBE PUT TO SUCTION AND WITHIN 10MINS HAD 800ML OF GREENISH FLUID OUT OF PEG TUBE. MADE AWARE. DR DESIR IS HERE TO SEE PT. PT GIVEN ZOFRAN 4MG IVP. PT WITH NO SIGNS OF DISTRESS AT THIS TIME.
[2025-03-03] MEDS: SCOPOLAMINE 1 MG TDSY TOP (08:06)
--- NOTE | 2025-03-03 08:10 | XR_ITS ---
Examination: CT abdomen with intravenous contrast CT pelvis with intravenous contrast 2-D coronal reconstructions 2-D sagittal reconstructions Date and time of exam:March 03, 2025, 1255 hrs. Indications: Vomiting and abdominal pain beginning 2 weeks ago. CTDI: vol (mGy) 11.7 DLP: (mGycm) 608 Technique: Multiple axial sections of the abdomen and pelvis have been obtained. 64 slice high-resolution scanner used. 3 mm axial sections have been obtained, post intravenous injection 60 cc [id number]. 2-D sagittal, coronal reconstructions obtained. Low dose protocols were performed. One or more of the following dose reduction techniques were used; automated exposure control, adjustment of the mA and/or KV according to patient size, use of iterative reconstruction technique. Findings: Bibasilar pneumonia No focal liver or splenic lesions Contracted gallbladder with small gallstones. No pancreatic mass. No renal or ureteral calculi, no hydronephrosis No bowel obstruction No pericecal inflammatory change Urinary Langston catheter, urinary bladder demonstrates wall thickening The osseous structures are intact Impression: Bibasilar pneumonia. Cholelithiasis No renal or ureteral calculi, no hydronephrosis No CT findings of appendicitis bowel obstruction or diverticulitis. Cystitis pattern
[2025-03-03] MEDS: THIAMINE INJ 100 MG/ML VIAL 2 ML IVP (09:01)
[2025-03-03] MEDS: HEPARIN SOD INJ 5000 UNIT/ML VIAL SC ×2 (09:01→20:11)
[2025-03-03] MEDS: levETIRAcetam INJ 100 MG/ML VIAL 5ML 1500 MG IVP ×2 (09:02→20:10)
[2025-03-03] MEDS: DEXTROSE 5%-WATER 1,000 ML 100 ML IV (09:37)
--- NOTE | 2025-03-03 10:05 | PC.SS ---
rounding note: Patient to be placed back on vent today
--- NOTE | 2025-03-03 11:17 | ESPR_ITS ---
<Statement entered by Casey Wallace MD - 03/05/25 11:50> TOTAL TIME: 45MINUTES ON DIRECT MEDICAL CARE, MANAGEMENT - COORDINATION AND COUNSELING > 50% OF TOTAL TIME I saw and evaluated the patient. I reviewed the resident?s note and agree with findings and plan as documented in the resident?s note. 1 fever overnight but general curve is improving continue meropenem Copious secretions persistent Vomiting seems to be posttussive but this is not confirmed Cuff is inflated and patient is on on ventilator Documentation for date of: 03/03/25 Subjective Subjective Interval history: Patient is a 29 years old male with past medical history of cocaine induced cerebral vasculitis, seizures, anemia, chronic respiratory failure status post tracheostomy, status post PEG tube, nonresponsive with quadriparesis admitted from subacute facility on 02/21/2025 for sepsis 2/2 pneumonia. Patient was recently discharged from inpatient for sepsis secondary to ventilator related pneumonia and cellulitis of the leg, was discharged 3 days prior to current admission. He was started on IV cefepime with significant improvement of his condition. Sputum cultures showed ESBL klebsiella, pseudomonas and proteus. Today he was planned for discharge, switched to PO Augmentin and levofloxacin. However, ENGINEERING INTERN was called today due to tachycardia, tachypnea and diaphoresis. Vitals showed HR in 160-170s and regular, RR 40-45, BP 105/73, oxygen saturation 100% on blow by, fever of 104 F. Fingerstick glucose was 40s. Labs showed worsening bicarb 15.1, potassium 5.7, anion gap 20, glucose 181, LA 9.2, otherwise no significant lab changes. VBG showed pCO2 32, pH 7.35. EKG showed sinus tachycardia. CXR showed significant left upper lobe pneumonia. CTA and CTAP were ordered by primary team. Patient was upgraded to ICU for further management. Interval History 02/26/25: Patient was examined at bedside; he has a tracheostomy tube in place and his eyes flutter open in response to voice. Pertinent labs today include ABG pH 7.45, pCO2 31, pCO2 146, HCO3 21, anion gap downtrended to 13 from 20, lactic acid down trended to 0.7 from 9.2, and all other labs within normal limits. 02/26 chest CTA showed bilateral pneumonia that is most prominent in the right upper lobe, mild hilar lymphadenopathy, endotracheal tube tip at 4 cm above nahid, and no findings suggestive for pulmonary artery emboli. 02/26 CTAP showed right base pneumonia with no pericecal inflammatory change. Based on sputum cultures, patient's antibiotic regimen was switched from cefepime to Zosyn. Plan is to continue antibiotics to treat patient's pneumonia and sepsis, and to wean patient off of ventilatory support and sedation before he can be downgraded. 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 Pertinent labs today include Hgb drop to 7.8 from 9.9 (MCV 86, RDW 77.0, likely hemodilution) and magnesium 1.4. 02/27 CXR shows satisfactory positioning of the tip of the left subclavian central line that was placed today (consent obtained via telephone call from patient's mother, Sara Carmona). Patient's sudden spike in lactic acid levels to 9.2 on 02/25 with rapid return to baseline is suspicious for seizure-like activity; an EEG has been ordered as a result. Patient has also recently been spiking a fever (101.4 today) despite prompt treatment of his ventilator-associated pneumonia or hospital-acquired pneumonia with IV Zosyn and IV vancomycin. Apparently, he has recurrent history of this. His current antibiotic regimen has been switched to IV meropenem and orders for a spinal MRI and possible lumbar tap have been placed to search for possible overlooked nidus for infection (i.e. spinal epidual abscess, meningitis). Patient has stopped being chemically sedated since 06:00 yesterday and has been off of pressors since 5 AM today. Plan to continue IV meropenem for patient's pneumonia and wean him off of ventilatory support before he is stabilized enough to be down-graded. 02/28/25: Per IM team note, patient had an episode of atrial fibrillation overnight in the setting of MAP 54 and fever of 101.4. Patient was examined at bedside; he appears alert, aware, and in no acute distress. He continues to be on tube feeding. Due to patient's soft BPs he was given multiple fluid boluses totaling about 4 L and given midodrine which have improved BPs somewhat. His morning dose of metoprolol was also held due to patient being tachycardic. Spinal MRI to assess for epidural abscess was unable to be completed yesterday due to patient's coughing fits. 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 Therefore, patient will be treated with a longer course of both IV meropenem and IV ciprofloxacin for double coverage of Pseudomonas. Sodium levels have been noted to be uptrending so free water flushes were increased from 50 to 60 cc/hr. Of note, patient was recently down- graded yesterday but the decision to upgrade him back to ICU was made due to ongoing signs of suspected infection and sepsis. Awaiting results from EEG and echocardiography and will reattempt spinal MRI (thoracic, lumbar) when opportune with possibility of lumbar tap. 03/01/25: Overnight, patient was able to be taken off of Levophed and received 500 mL fluid bolus. It was also reported that patient was having a lot of non- bloody emesis which is a new symptom for him. Patient was examined at bedside; he appears alert, aware, and in no acute distress. Patient is nonverbal but was able to show that he can respond yes or no via blinking signals which made it possible to assess for abdominal pain upon palpation, of which he had none. Pertinent labs today include hemoglobin drop to 7.0 from 8.9, potassium drop to 2.8 from 3.9, creatinine drop to 0.6 from 1.1, corrected calcium drop to 10.1 from 10.4, phosphorus drop to 2.0 from 3.7, and magnesium drop to 1.3 from 2.0. As mentioned yesterday, the current plan moving forward centers around treating patient's suspected ongoing MDR Pseudomonas pneumonia (corroborated by recent chest CT studies showing dramatically increased burden of diffuse tree-in-bud infiltrates and areas of bronchial thickening from October chest CT studies) with the combination of 7-day course IV meropenem and 7-day course IV ciprofloxacin for double Pseudomonas coverage. Due to the suspicion that patient's current febrile and hypotensive episodes are secondary to septic and vasodilatory inflammatory response from the aforementioned Pseudomonas pneumonia, the hope is that proper antibiotic treatment for patient's respiratory infection will also resolve his intermittent fevers of unknown origin and persistently soft blood pressures. It is also likely that patient would benefit from chronic suppressive antipseudomonal therapy after his acute infection has been cleared. Will continue to monitor patient's progression and treat his hypotension in the setting of sepsis with aggressive IV fluid resuscitation and vasopressors as needed. 03/02/2025: Overnight patient had a temperature spike of 101F and an episode of posttussive emesis. Input 660 cc, output 1065 cc, balance -405 cc. 1+ BM. Patient is tracking with eyes and responsive to noxious stimuli. Labs showed Hb 7, WBC 6, PLT 216, K3.4, Phos 1.5, Mg 1.4, CRP 10, glucose 75. Patient was not able to get his MRI yesterday due to movement, will reattempt today and placed as needed diazepam for agitation. Currently on meropenem and ciprofloxacin for MDR VAP. Will resend sputum culture today. Repleted with K-Phos 30 mmol IV x 1, magnesium sulfate 4 g IV x 1. 03/03/2025: Last night, patient once again had another episode of emesis which prompted PEG tube intermittent suctioning to be started. Then, around 9 AM this morning, to prevent patient from aspirating any vomitus, patient was put on ventilatory support so that the tracheostomy tube cuff can be inflated. He was started on PEG tube feeds with Jevity 1.5 L @ 30 mL/hr and water flush @ 6 mL/hr. In contrast to patient's vomiting, the episodes of hypotension and fevers seem to be improving. 02/27 EEG results returned today showing abnormal findings w/ diffuse slowing suggestive of a diffuse encephalopathy of metabolic, degenerative, or vascular origin as well as paroxysmal bursts of spike and wave discharges suggestive of seizure. Per neurology, no changes need to be made to patient's antiepileptic regimen (GT Keppra 1500 mg BID). The viability of obtaining a spinal MRI for the patient remains questionable due to his inability to lie flat without going into a fit of coughing. For now, patient will be continued on IV meropenem and IV ciprofloxacin (day 5 of [id number]) for suspected MDR Pseudomonas ventilator-associated pneumonia in the hopes that it will resolves his other symptoms. Exam Vital Signs Temp Pulse Resp BP Pulse Ox O2 Del Method O2 Flow Rate 97.6 F 93 18 114/71 100 T-Piece 10 03/03/25 08:00 03/03/25 10:18 03/03/25 09:00 03/03/25 10:18 03/03/25 10:18 03/03/25 06:00 03/03/25 07:00 FiO2 35 03/03/25 10:18 Narrative Exam General: Awake and responsive to voice by eye tracking. Nonverbal. Thin male in no acute distress with tracheostomy. HEENT: NCAT, PERRLA, EOMI, MMM, anicteric conjunctivae. CVS: Regular rate and rhythm. Normal S1 and S2. No M/R/G. Resp: Tracheostomy tube in place with green sputum noted in lumen. Tachypneic. Coarse breathing B/L. No rhonchi, rales, crackles or wheezing. Abd: PEG tube in place. Soft, non-tender, non-distended. BS+ in all 4 quadrants. MSK: Bilateral popliteal fossa leg 4x4 cm dressings. Upper and lower extremities are stiff with decerebrate posturing. Neuro: Limited exam due to medical condition. Can answer yes or no via blinking signals when coached. Objective Labs 03/04/25 04:57 03/04/25 04:57 Labs: Laboratory Results - last 24 hr 03/02/25 03/03/25 04:16 05:16 WBC 7.3 RBC 2.85 L Hgb 7.7 L Hct 24.7 L MCV 87 MCH 27.0 MCHC 31.2 RDW Std Deviation 77.8 H Plt Count 254 D Neut % (Auto) 71 Lymph % (Auto) 13 Nash % (Auto) 13 H Eos % (Auto) 1 Baso % (Auto) 0 Neut # (Auto) 5.2 Lymph # (Auto) 1.0 Nash # (Auto) 1.0 H Eos # (Auto) 0.1 Baso # (Auto) 0.0 Immature Gran # (Auto) 0.04 H Absolute Nucleated RBC 0.00 Immature Gran % 1 H Nucleated RBC % 0 Sodium 134 L Potassium 3.7 Chloride 101 Carbon Dioxide 23.1 Anion Gap 10 BUN 5 L Creatinine 0.7 Estim Creat Clear Calc 123.1 eGFR > 60 BUN/Creatinine Ratio 7 L Glucose 97 Calculated Osmolality 265 L Calcium 9.6 Corrected Calcium 10.0 Phosphorus 2.6 Magnesium 1.9 Total Bilirubin 0.2 L AST 19 ALT 14 Alkaline Phosphatase 101 Total Protein 7.2 Albumin 3.5 Globulin 3.7 H Albumin/Globulin Ratio 0.9 L Procalcitonin 0.68 H HIV 1&2 Antibody Rapid Non-Reactive ABG Interpretation ABG results: 02/21/25 02/25/25 02/25/25 23:11 17:38 20:17 ABG pH 7.35 7.43 ABG pCO2 32 33 ABG pO2 39 L* 169 H D ABG HCO3 18 L 22 ABG O2 Saturation 68 L 101 H ABG Base Excess -7 L -2 VBG pH 7.50 VBG pCO2 30 L VBG pO2 66 H VBG Base Excess 1 02/26/25 04:07 ABG pH 7.45 ABG pCO2 31 L ABG pO2 146 H D ABG HCO3 21 ABG O2 Saturation 100 H ABG Base Excess -3 VBG pH VBG pCO2 VBG pO2 VBG Base Excess Quality Measures Quality Measures VTE prophylaxis (Heparin sc) Assessment & Plan Assessment Current Active Medications: Generic Name Dose Route Start Last Admin Trade Name Freq PRN Reason Stop Dose Admin Albuterol/Ipratropium 3 ml 02/22/25 13:00 03/03/25 07:00 Albuterol/Ipratropium (Duoneb) Rt [place] 3 Ml Nebu INH 03/24/25 12:59 3 ml Q6HRRT RADHA Administration Atropine Sulfate 0.5 mg 02/27/25 07:30 Atropine Sulf Inj 0.1 Mg/Ml Syr 10 Ml IVP Q3MIN PRN heart rate <45 Baclofen 20 mg 02/22/25 07:41 02/23/25 03:12 Baclofen 10 Mg Tablet GT 03/24/25 07:40 20 mg Q6HR PRN Administration Spasms Protocol Dextrose 25 ml 03/01/25 22:54 Dextrose 50%-Water Inj 50 Ml Syringe IV 03/31/25 22:53 Q15MIN PRN BG 50-70 responsive npo pt Dextrose 50 ml 03/01/25 22:54 Dextrose 50%-Water Inj 50 Ml Syringe IV 03/31/25 22:53 Q15MIN PRN BG <50 OR BG <70 & pt unresponsive Gabapentin 100 mg/ Gabapentin 400 mg 02/26/25 15:00 03/03/25 06:46 300 mg GT 03/27/25 21:59 Not Given TID RADHA Glucagon 1 mg 03/01/25 22:54 Glucagon Inj 1 Mg Vial IM Q15MIN PRN BG <70, and no IV access Guaifenesin 200 mg 02/25/25 21:00 03/03/25 06:46 Guaifenesin Syrup 200 Mg/10 Ml Udc PO 03/27/25 20:59 Not Given QID RADHA Protocol Heparin Sodium (Porcine) 5,000 unit 02/22/25 09:00 03/03/25 09:01 Heparin Sod Inj 5000 Unit/Ml Vial SC 03/08/25 08:59 5,000 unit BID RADHA Administration Ciprofloxacin/Dextrose 400 mg in 200 mls @ 200 mls/hr 02/28/25 18:30 03/03/25 09:36 Cipro Ivpb IV 03/07/25 18:29 200 mls/hr Q8H RADHA Administration Meropenem 2,000 mg/ Sodium 100 mls @ 100 mls/hr 03/01/25 14:00 03/03/25 06:00 Chloride IV 03/08/25 13:59 100 mls/hr Q8HR RADHA Administration Protocol Dextrose 1,000 mls @ 100 mls/hr 03/02/25 23:45 03/03/25 09:37 D5w IV 04/01/25 23:44 100 mls/hr .Q10H RADHA Administration Levetiracetam 1,500 mg 03/03/25 09:00 03/03/25 09:02 Levetiracetam Inj 100 Mg/Ml Vial 5ml IVP 04/02/25 08:59 1,500 mg Q12HR RADHA Administration Metoprolol Tartrate 100 mg 02/23/25 09:00 03/01/25 09:09 Metoprolol Tartrate 25 Mg Tablet GT 03/25/25 08:59 Not Given On Hold: 03/01/25 09:08 BID RADHA Midodrine 10 mg 03/01/25 14:00 03/03/25 06:46 Midodrine 5 Mg Tablet GT 03/31/25 13:59 Not Given TID RADHA Ondansetron HCl 4 mg 02/21/25 23:14 03/03/25 06:19 Ondansetron Inj 2 Mg/Ml Inj 2 Ml IVP 10/04/25 23:13 4 mg Q6H PRN Administration NAUSEA OR VOMITING Protocol Pantoprazole Sodium 40 mg 02/22/25 09:00 03/03/25 09:00 Pantoprazole Inj 40 Mg Vial IVP 03/24/25 08:59 40 mg QDAY RADHA Administration Sodium Chloride 3 ml 02/25/25 18:51 Sodium Chloride Rt [place] 0.9% 3 Ml Nebu INH 03/27/25 18:50 PRN PRN SOLN Sodium Chloride 4 ml 02/27/25 07:09 Sodium Cl Rt [place] 3% 4 Ml Nebu (Non-Formulary) INH 03/29/25 07:06 PRN PRN SECRETIONS Thiamine HCl 100 mg 03/02/25 09:00 03/03/25 09:01 Thiamine Inj 100 Mg/Ml Vial 2 Ml IVP 04/01/25 08:59 100 mg QDAY RADHA Administration Plan Patient is a 29 year old male with past medical history of cocaine-induced cerebral vasculitis, seizures, anemia, chronic respiratory failure status post tracheostomy, status post PEG tube, and nonresponsive status with quadriparesis who was initially admitted from subacute facility on 02/21/2025 for sepsis 2/2 pneumonia. ENGINEERING INTERN was called on 02/25 due to tachycardia, tachypnea and diaphoresis and patient was upgraded to ICU for further management. Last night, patient once again had another episode of emesis which prompted PEG tube intermittent suctioning to be started. Then, around 9 AM this morning, to prevent patient from aspirating any vomitus, patient was put on ventilatory support so that the tracheostomy tube cuff can be inflated. He was started on PEG tube feeds with Jevity 1.5 L @ 30 mL/hr and water flush @ 6 mL/hr. In contrast to patient's vomiting, the episodes of hypotension and fevers seem to be improving. 02/27 EEG results returned today showing abnormal findings w/ diffuse slowing suggestive of a diffuse encephalopathy of metabolic, degenerative, or vascular origin as well as paroxysmal bursts of spike and wave discharges suggestive of seizure. Per neurology, no changes need to be made to patient's antiepileptic regimen (GT Keppra 1500 mg BID). The viability of obtaining a spinal MRI for the patient remains questionable due to his inability to lie flat without going into a fit of coughing. For now, patient will be continued on IV meropenem and IV ciprofloxacin (day 5 of [id number]) for suspected MDR Pseudomonas ventilator-associated pneumonia in the hopes that it will resolves his other symptoms. 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 He is also quadriplegic with spastic contractures and has reported history of seizures. Patient is status post tracheostomy and status post PEG tube (which patient is reliant on for feeding). Patient is aware and does respond to commands Dx: -02/27 EEG was abnormal with diffuse slowing suggestive of a diffuse encephalopathy of metabolic, degenerative, or vascular origin. There were also paroxysmal bursts of spike and wave discharges suggestive of seizure. Rx: -Per neurology, no changes need to be made for patient's antiepileptic regimen -GT Keppra 1500 mg twice daily. -GT gabapentin 400 mg 3 times daily. -GT Baclofen 20 mg every 6 hours as needed. -Aspiration precautions -Restarted tube feeds at 30 mL/hr. -Wound care onboard -Oral care as needed. 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 (previously seen on ET secretion studies from multiple past visits) that have not been adequately treated with prior short- term antibiotic regimens Today, MAP has stayed around the 70s DDx: volume depletion 2/2 insensible losses (tachypneic expiration of water vapor through tracheostomy tube and diaphoretic sweating), ICU-provoked adrenal insufficiency, cardiogenic shock, central autonomic dysregulation (history of cerebral vasculitis and quadriparesis) Rx: -Fluid infusion (received about 1.1 L D5W today so far, fluid balance today: - 320 mL), will discontinue after tube feeding starts later today -GT midodrine 10 mg TID for hypotension -IV Levophed prn for refractory hypotension -Double anti-pseudomonal antibiotic coverage as detailed in Respiratory and ID sections RRx: -Patient's BP has seemed a bit better controlled as of late (MAP is usually above 65 for the past 2 days) Respiratory: #Multifocal pneumonia, likely Pseudomonas #Chronic mucous plugging It is currently suspected that patient's ongoing febrile episodes and hypotension despite broad-coverage antibiotic regimen with IV meropenem (and previously Zosyn, vancomycin, and cefepime) could be due to 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 (previously seen on ET secretion studies from multiple past visits) that has now developed into Pseudomonas pneumonia with sepsis Dx: -Comparison of 10/31/24 and 02/26/25 chest CTAs shows similar areas of pneumonia, suggesting chronic colonization of the patient's lungs with possibly multidrug- resistant strains of Pseudomonas (previously seen on ET secretion studies from multiple past visits) that have not been adequately treated with recent short- term antibiotic stints and have now developed into Pseudomonas pneumonia -02/25 sputum culture grew Proteus mirablis sensitive to meropenem but not ciprofloxacin or levofloxacin -02/22 sputum culture grew Pseudomonas aeruginosa, ESBL Klebsiella pneumoniae, and Proteus mirablis (all sensitive to ciprofloxacin and aztreonam only) -02/10 sputum culture grew Pseudomonas resistant to meropenem, Klebsiella indeterminant for Zosyn and Proteus resistant to cefepime and Cipro ?09/21 sputum culture grew Klebsiella and Proteus sensitive to cefepime, meropenem and ciprofloxacin. -02/25 BCx both (-) ? 12/20 urine grew Pseudomonas resistant to meropenem and cefepime -Echocardiogram to evaluate for endocarditis or valvular vegetations was done today, results pending -Thoracic and lumbar spinal MRI (to evaluate for possible epidural abscess) may not be feasible as patient apparently has coughing fits when lying supine, will shelve this diagnostic inquiry and reevaluate its utility should patient not improve on current antibiotic regimen Rx: -Ceftriaxone 1 g IV daily [02/22 - 02/22] -Cefepime 2 g IV daily [02/22 - 02/25] -Vancomycin IV [02/21 - 02/22, 02/23 - 02/27 intermittent dosing based on trough] -Zosyn 3.375 g IV Q8 hourly [02/25 - 02/27] -IV meropenem 2000 mg q8HR (started 02/27--), day 5 of 7 day course -IV ciprofloxacin 400 mg q8HR (started 02/27--), day 5 of 7 day course -Chest physiotherapy twice daily ordered -INH Duoneb 3 mL q6HRRT -INH sodium chloride 4 mL prn for secretions RRx: -Initially in September patient's previous sputum culture on file grew Klebsiella and Proteus pansensitive to most tested antibiotics including meropenem, ciprofloxacin and Zosyn. Over the course of 5 months patient rapidly developed multidrug-resistant organisms. ? Patient's sputum culture from 02/22 grew Pseudomonas, Klebsiella and Proteus. Pseudomonas and Proteus was sensitive to cefepime however Klebsiella was resistant. All tested organisms were sensitive to ciprofloxacin however. During the time period from 02/22 - 02/25 patient was on cefepime, ceftriaxone and vancomycin. Therefore not effective coverage for ESBL Klebsiella which was rapidly evolving. Also patient's sensitivity report was included which showed Pseudomonas was sensitive to ceftriaxone. This was very perplexing and further investigation are being conducted. -Despite trials of many antibiotics including cefepime, Zosyn, vancomycin, and now meropenem, patient continues to spike fevers. Since current working diagnosis is that this is 2/2 MDR Pseudomonas pneumonia, we will see if the double anti-pseudomonal coverage solves this issue . Spinal MRI pending to rule out any other source of infection. Gastrointestinal: #Nonbloody emesis Possibly post-tussive in nature (patient has reportedly had coughing fits recently) On 03/01 physical exam, abdomen was soft and non-distended; patient used blinking signals to convey that he denied abdominal tenderness to palpation in all quadrants Patient had another episode of emesis last night and continues to have coughing fits DDx: post-tussive emesis, sepsis-related emesis, electrolyte derangement-related emesis, viral gastroenteritis Dx: -Patient threw up about 1400 mL of vomitus last night Rx: -Low-intermittent suction by PEG tube -Started Jevity 1.5 L @ 30 mL/hr alongside water flush @ 6 mL/hr via PEG tube -IV Zofran 4 mg q6HR prn for nausea/vomiting -Consider IV Reglan if emesis is refractory to Zofran -Replete/correct electrolytes as appropriate RRx: -Monitor for any further vomiting episodes, abdominal distention, WBC count, or infectious signs Renal: No active issues Endocrine: No active issues Infectious Disease: #Fever of unknown origin, intermittent and refractory to antibiotics An ongoing issue for the patient has been repeated febrile episodes despite broad-spectrum antibiotic coverage Patient spiked a fever of 101.6 in the evening of 02/26 while actively receiving IV meropenem Currently suspect that etiology is due to 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 (previously seen on ET secretion studies from multiple past visits) that has now developed into Pseudomonas pneumonia with sepsis DDx: other occult infectious etiology (epidural abscess, endocarditis, chronic meningitis, disseminated fungal infection), rheumatologic etiology (patient has history of 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 which is more likely a [id number] ANCA-associated vasculitis), 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 -BCx (-) -CRP and ESR elevated at 10.0 and 71, respectively -ANCA Screen, MPO & PR3, w/ Reflex Titer ordered, results pending -HCV antibody screen ordered, results pending -HIV (1&2) rapid antibody screen negative -No erythema nodosum seen on physical exam Rx: -IV meropenem 2000 mg q8HR (started 02/27--), day 5 of 7 day course -IV ciprofloxacin 400 mg q8HR (started 02/28--), day 5 of 7 day course RRx: -Despite trials of many antibiotics including cefepime, Zosyn, vancomycin, and now meropenem, patient had continued to spike fevers. Since current working diagnosis is that this is 2/2 MDR Pseudomonas pneumonia, we will see if the double anti-pseudomonal coverage solves this issue while actively following up on other studies like spinal MRI, echocardiogram, or lumbar tap to work-up other possible occult sources of infection. Rheumatologic studies may also be pursued but etiologies of that nature are currently lower on the list of differentials. -Patient did not spike a fever last night Hematology/Oncology: #Chronic normocytic anemia Hgb has hovered between 8-10 in the past few days Hgb 7.7 from 7.0 yesterday Rx: -Monitor CBC, transfuse if Hgb<7 RRx: -Continue to monitor CBC Lines: L subclavian central line Diet: PEG tube feeds. DVT prophylaxis: Heparin. GI prophylaxis: Protonix. Code status: DNR. Disposition: IV antibiotics, BP monitoring and as needed vasopressors. Pending MRI spine Plan of care discussed with Attending Dr. Madison Lakhani, DO Internal Medicine, PGY-1 Attending Provider Attestation/Addendum I personally saw and examined the patient and supervised PGY 1 resident, Dr. Lakhani with formulating a management plan. I agree with his documentation with the exceptions as listed. 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 However at this point has multifocal pneumonia with tree-in-bud opacities seen on CT scan seem to be his likely source of infection. At this time he is on double pseudomonal coverage with ciprofloxacin and meropenem for multidrug-resistant organisms in his sputum, including Pseudomonas, Klebsiella and Proteus. Repeat sputum culture from 03/02 is currently pending. With regards to his vomiting, he continues to have daily episodes of emesis and temperature spikes ranging from 100?101. He also appears to be aspirating stomach contents as noted upon suctioning of his tracheostomy tube. While patient is not on the ventilator, his tracheostomy remains uncuffed and aspiration of his vomitus was highly likely. Patient has also been off of tube feeds for the past 3 to 4 days and his vomiting has gotten worse. At this point it appears to be mainly bilious in nature, dark green and approximately 1700 cc were suctioned in the past 24 hours. To address this today we have placed the patient on spontaneous mode ventilation and inflated the cuff on his tracheostomy tube. We have also restarted tube feeds at 30c/hr and ordered a abdomen/pelvis CT with contrast to assess for any signs of intra-abdominal infection. His abdomen appears benign on exam, however his exam is limited due to inability to assess patient's level of discomfort. If CT scan is negative and patient's vomiting still persists even after restarting tube feeds, we will obtain a GI consult. Plan of care discussed with Attending Dr. Madison Cabrera MD PGY 2 Disclaimer: This note was dictated by speech recognition. Minor errors in obstetrics gyn physician may be present due to voice recognition software.
--- NOTE | 2025-03-03 13:24 | PC.RT ---
PT taken to CT on transport vent with PA Guadarrama and AP Bell. PT taken and returned without complications.
[2025-03-03] MEDS: guaiFENesin SYRUP 200 MG/10 ML UDC GT (20:07)
[2025-03-03 20:34] LABS: Hepatitis C Antibody Non Reactive (Non React)
[2025-03-03] MEDS: GABAPENTIN 100 MG, GABAPENTIN 300 MG 400 MG GT (21:00)
[2025-03-03] MEDS: MIDODRINE 5 MG TABLET 10 MG GT (21:00)
--- NOTE | 2025-03-03 22:39 | VVPN_ITS ---
Telemedicine visit statement This visit was conducted with the use of phone was obtained. Documentation for date of: 03/03/25 Subjective Subjective Interval history: Patient is in telemetry, no real changes noted, Still gets coughing spells without hemodynamic changes and high rectal temp Virtual exam Vital Signs Temp Pulse Resp BP Pulse Ox O2 Del Method O2 Flow Rate 97.3 F 83 26 H 98/60 100 Mechanical Ventilation 10 03/03/25 20:00 03/03/25 22:00 03/03/25 22:00 03/03/25 22:00 03/03/25 22:00 03/03/25 20:00 03/03/25 07:00 FiO2 35 03/03/25 20:00 Objective Labs 03/03/25 05:16 03/03/25 05:16 Labs: Laboratory Results - last 24 hr 03/02/25 03/03/25 04:16 05:16 WBC 7.3 RBC 2.85 L Hgb 7.7 L Hct 24.7 L MCV 87 MCH 27.0 MCHC 31.2 RDW Std Deviation 77.8 H Plt Count 254 D Neut % (Auto) 71 Lymph % (Auto) 13 [place] % (Auto) 13 H Eos % (Auto) 1 Baso % (Auto) 0 Neut # (Auto) 5.2 Lymph # (Auto) 1.0 [place] # (Auto) 1.0 H Eos # (Auto) 0.1 Baso # (Auto) 0.0 Immature Gran # (Auto) 0.04 H Absolute Nucleated RBC 0.00 Immature Gran % 1 H Nucleated RBC % 0 Sodium 134 L Potassium 3.7 Chloride 101 Carbon Dioxide 23.1 Anion Gap 10 BUN 5 L Creatinine 0.7 Estim Creat Clear Calc 123.1 eGFR > 60 BUN/Creatinine Ratio 7 L Glucose 97 Calculated Osmolality 265 L Calcium 9.6 Corrected Calcium 10.0 Phosphorus 2.6 Magnesium 1.9 Total Bilirubin 0.2 L AST 19 ALT 14 Alkaline Phosphatase 101 Total Protein 7.2 Albumin 3.5 Globulin 3.7 H Albumin/Globulin Ratio 0.9 L Hepatitis C Antibody Non Reactive ABG Interpretation ABG results: 02/21/25 02/25/25 02/25/25 23:11 17:38 20:17 ABG pH 7.35 7.43 ABG pCO2 32 33 ABG pO2 39 L* 169 H D ABG HCO3 18 L 22 ABG O2 Saturation 68 L 101 H ABG Base Excess -7 L -2 VBG pH 7.50 VBG pCO2 30 L VBG pO2 66 H VBG Base Excess 1 02/26/25 04:07 ABG pH 7.45 ABG pCO2 31 L ABG pO2 146 H D ABG HCO3 21 ABG O2 Saturation 100 H ABG Base Excess -3 VBG pH VBG pCO2 VBG pO2 VBG Base Excess
[2025-03-04] VITALS (35 sets, daily range): BP systolic 88–116; BP diastolic 53–73; PULSE 53–115; RESP 16–32; TEMP 35.6–36.5; O2SAT 96–100; BMI 15.5
[2025-03-04] MEDS: CIPROFLOXACIN/D5w 400 MG IVPB 400 MG/200 ML BAG 200 MG IV ×3 (01:47→18:11)
[2025-03-04] MEDS: ONDANSETRON INJ 2 MG/ML INJ 2 ML 4 MG IVP (05:03)
[2025-03-04] MEDS: guaiFENesin SYRUP 200 MG/10 ML UDC GT (05:04)
[2025-03-04] MEDS: MIDODRINE 5 MG TABLET 10 MG GT ×3 (05:04→21:18)
[2025-03-04] MEDS: GABAPENTIN 100 MG, GABAPENTIN 300 MG 400 MG GT ×3 (05:10→21:18)
[2025-03-04] MEDS: MEROPENEM INJ 2,000 MG in SODIUM CHLORIDE 0.9% 100 ML 100 MG IV ×3 (05:10→21:18)
[2025-03-04 05:32] LABS: Basophils # (Auto) 0.0 Thou/mm3 (0.0-0.2); Basophils % (Auto) 0 % (0-2.5); Eosinophils # (Auto) 0.2 Thou/mm3 (0.0-0.5); Eosinophils % (Auto) 3 % (0-10); Hematocrit 24.4 % (41.0-53.0); Immature Granulocytes Auto 0.03 Thou/mm3 (0.00-0.00); Lymphocytes # (Auto) 1.0 Thou/mm3 (1.0-4.8); Lymphocytes % (Auto) 14 % (10-50); Mean Corpuscular HGB Conc 31.6 g/dl (31.0-37.0); Mean Corpuscular Hemoglobin 27.3 pg (25.0-35.0); Mean Corpuscular Volume 87 fL (80-100); Monocytes # (Auto) 0.8 Thou/mm3 (0.0-0.8); Monocytes % (Auto) 11 % (0-12); Neutrophils # (Auto) 5.2 Thou/mm3 (1.8-7.7); Neutrophils % (Auto) 72 % (37-80); Nucleated Red Blood Cell # 0.00 Thou/mm3 (0.00-0.00); Nucleated Red Blood Cell % 0 /100 WBC (0); Platelet Count 257 Thou/mm3 (140-440); RDW Standard Deviation 76.4 fL (35.1-43.9); Red Blood Count 2.82 Miln/mm3 (4.50-5.90); White Blood Count 7.3 Thou/mm3 (3.8-10.6)
[2025-03-04 05:54] LABS: Alanine Aminotransferase 11 U/L (10-49); Albumin, Serum 3.3 gm/dL (3.5-5.0); Albumin/Globulin Ratio 0.9 (1.2-2.2); Alkaline Phosphatase 102 U/L (46-116); Anion Gap 10 (7-16); Aspartate Amino Transferase 17 U/L (0-34); BUN/Creatinine Ratio 8 Ratio (12-20); Bilirubin,Total 0.2 mg/dL (0.3-1.2); Blood Urea Nitrogen 5 mg/dL (9-23); Calcium 9.3 mg/dL (8.3-10.6); Calcium (Corrected) 9.9 mg/dL (8.5-10.1); Carbon Dioxide 25.4 mMol/L (20.0-31.0); Chloride 101 mMol/L (98-107); Creatinine (Component) 0.6 mg/dL (0.6-1.3); Estimated Creatinine Clearance 142.6 mL/min (>60); Globulin 3.7 gm/dL (2.3-3.5); Glucose 93 mg/dL (74-106); Magnesium 1.7 mg/dL (1.6-2.6); Osmolality,Calculated 269 (275-295); Phosphorous 2.7 mg/dL (2.4-5.1); Potassium 3.2 mMol/L (3.4-5.1); Sodium 136 mMol/L (136-145); Total Protein 7.0 gm/dL (5.7-8.2); eGFR > 60 See Note
[2025-03-04 06:06] LABS: Hemoglobin 7.7 g/dL (13.5-16.0)
[2025-03-04] MEDS: ALBUTEROL/IPRATROPIUM (Duoneb) RT SOL 3 ML NEBU INH ×3 (06:51→18:17)
[2025-03-04] MEDS: THIAMINE INJ 100 MG/ML VIAL 2 ML IVP (08:24)
[2025-03-04] MEDS: levETIRAcetam INJ 100 MG/ML VIAL 5ML 1500 MG IVP ×2 (08:24→21:18)
[2025-03-04] MEDS: HEPARIN SOD INJ 5000 UNIT/ML VIAL SC ×2 (08:25→21:19)
[2025-03-04] MEDS: Magnesium Sulfate 4 GM Ivpb 4 GM/50 ML BAG IV (08:25)
--- NOTE | 2025-03-04 08:51 | PC.NURSE ---
unable to assess Cam ICU assessment Nonverbal at baseline
--- NOTE | 2025-03-04 09:30 | ESPR_ITS ---
Subjective Subjective Interval history: cxr again neg. Exam Vital Signs Temp Pulse Resp BP Pulse Ox O2 Del Method O2 Flow Rate 97.1 F 54 L 23 H 98/57 L 100 Mechanical Ventilation 10 03/04/25 08:00 03/04/25 08:00 03/04/25 08:00 03/04/25 08:00 03/04/25 08:00 03/03/25 20:00 03/03/25 07:00 FiO2 30 03/04/25 08:00 Objective - Internal Medicine Labs 03/04/25 04:57 03/04/25 04:57 Labs: Laboratory Results - last 24 hr 03/02/25 03/04/25 04:16 04:57 WBC 7.3 RBC 2.82 L Hgb 7.7 L Hct 24.4 L MCV 87 MCH 27.3 MCHC 31.6 RDW Std Deviation 76.4 H Plt Count 257 Neut % (Auto) 72 Lymph % (Auto) 14 [place] % (Auto) 11 Eos % (Auto) 3 Baso % (Auto) 0 Neut # (Auto) 5.2 Lymph # (Auto) 1.0 [place] # (Auto) 0.8 Eos # (Auto) 0.2 Baso # (Auto) 0.0 Immature Gran # (Auto) 0.03 H Absolute Nucleated RBC 0.00 Immature Gran % 0 Nucleated RBC % 0 Sodium 136 Potassium 3.2 L D Chloride 101 Carbon Dioxide 25.4 Anion Gap 10 BUN 5 L Creatinine 0.6 Estim Creat Clear Calc 142.6 eGFR > 60 BUN/Creatinine Ratio 8 L Glucose 93 Calculated Osmolality 269 L Calcium 9.3 Corrected Calcium 9.9 Phosphorus 2.7 Magnesium 1.7 Total Bilirubin 0.2 L AST 17 ALT 11 Alkaline Phosphatase 102 Total Protein 7.0 Albumin 3.3 L Globulin 3.7 H Albumin/Globulin Ratio 0.9 L Hepatitis C Antibody Non Reactive ABG Interpretation ABG results: 02/21/25 02/25/25 02/25/25 23:11 17:38 20:17 ABG pH 7.35 7.43 ABG pCO2 32 33 ABG pO2 39 L* 169 H D ABG HCO3 18 L 22 ABG O2 Saturation 68 L 101 H ABG Base Excess -7 L -2 VBG pH 7.50 VBG pCO2 30 L VBG pO2 66 H VBG Base Excess 1 02/26/25 04:07 ABG pH 7.45 ABG pCO2 31 L ABG pO2 146 H D ABG HCO3 21 ABG O2 Saturation 100 H ABG Base Excess -3 VBG pH VBG pCO2 VBG pO2 VBG Base Excess Assessment & Plan A&P Narrative on cipro. chest imaging neg. prior rx noted. fuo eval with neg abd and ongoing fever esr and crp high not all fevers are infectious likely has vasculitis of some sort. if bnp high or other signs of chf, then echo more useful. will get bnp and other w/u for vasculitis in am. ok to try steroids as abx do not seem to have worked despite s of the organisms and sterile site cx are neg. agree with dnr status. stopped the merrem for now. ok to stop cipro if steroids started latest sputum cx noted. likely colonization given cxr, so quinolone ok for now. may stop it tuesday if still on at that time. Time Spent With Patient Time: Total time spent is greater than 50% in coordination of care (as documented) at patient's floor/unit and/or counseling patient:
--- NOTE | 2025-03-04 09:51 | ESPR_ITS ---
<Statement entered by Casey Wallace MD - 03/05/25 11:57> TOTAL TIME: 45MINUTES ON DIRECT MEDICAL CARE, MANAGEMENT - COORDINATION AND COUNSELING > 50% OF TOTAL TIME I saw and evaluated the patient. I reviewed the resident?s note and agree with findings and plan as documented in the resident?s note. Remains afebrile, continue current antibiotics. CT of the abdomen did not identify any acute findings to explain emesis. Reglan will be considered and possibly even Ativan. Documentation for date of: 03/04/25 Subjective Subjective Interval history: Interval history: Patient is a 29 years old male with past medical history of cocaine induced cerebral vasculitis, seizures, anemia, chronic respiratory failure status post tracheostomy, status post PEG tube, nonresponsive with quadriparesis admitted from subacute facility on 02/21/2025 for sepsis 2/2 pneumonia. Patient was recently discharged from inpatient for sepsis secondary to ventilator related pneumonia and cellulitis of the leg, was discharged 3 days prior to current admission. He was started on IV cefepime with significant improvement of his condition. Sputum cultures showed ESBL klebsiella, pseudomonas and proteus. Today he was planned for discharge, switched to PO Augmentin and levofloxacin. However, [employer] was called today due to tachycardia, tachypnea and diaphoresis. Vitals showed HR in 160-170s and regular, RR 40-45, BP 105/73, oxygen saturation 100% on blow by, fever of 104 F. Fingerstick glucose was 40s. Labs showed worsening bicarb 15.1, potassium 5.7, anion gap 20, glucose 181, LA 9.2, otherwise no significant lab changes. VBG showed pCO2 32, pH 7.35. EKG showed sinus tachycardia. CXR showed significant left upper lobe pneumonia. CTA and CTAP were ordered by primary team. Patient was upgraded to ICU for further management. Interval History 02/26/25: Patient was examined at bedside; he has a tracheostomy tube in place and his eyes flutter open in response to voice. Pertinent labs today include ABG pH 7.45, pCO2 31, pCO2 146, HCO3 21, anion gap downtrended to 13 from 20, lactic acid down trended to 0.7 from 9.2, and all other labs within normal limits. 02/26 chest CTA showed bilateral pneumonia that is most prominent in the right upper lobe, mild hilar lymphadenopathy, endotracheal tube tip at 4 cm above nahid, and no findings suggestive for pulmonary artery emboli. 02/26 CTAP showed right base pneumonia with no pericecal inflammatory change. Based on sputum cultures, patient's antibiotic regimen was switched from cefepime to Zosyn. Plan is to continue antibiotics to treat patient's pneumonia and sepsis, and to wean patient off of ventilatory support and sedation before he can be downgraded. 02/27/25: Patient was examined at bedside; he was awake and seems responsive to voice and aware of this promotion writer's presence. Pertinent labs today include Hgb drop to 7.8 from 9.9 (MCV 86, RDW 77.0, likely hemodilution) and magnesium 1.4. 02/27 CXR shows satisfactory positioning of the tip of the left subclavian central line that was placed today (consent obtained via telephone call from patient's mother, Sara Carmona). Patient's sudden spike in lactic acid levels to 9.2 on 02/25 with rapid return to baseline is suspicious for seizure-like activity; an EEG has been ordered as a result. Patient has also recently been spiking a fever (101.4 today) despite prompt treatment of his ventilator-associated pneumonia or hospital-acquired pneumonia with IV Zosyn and IV vancomycin. Apparently, he has recurrent history of this. His current antibiotic regimen has been switched to IV meropenem and orders for a spinal MRI and possible lumbar tap have been placed to search for possible overlooked nidus for infection (i.e. spinal epidural abscess, meningitis). Patient has stopped being chemically sedated since 06:00 yesterday and has been off of pressors since 5 AM today. Plan to continue IV meropenem for patient's pneumonia and wean him off of ventilatory support before he is stabilized enough to be down-graded. 02/28/25: Per IM team note, patient had an episode of atrial fibrillation overnight in the setting of MAP 54 and fever of 101.4. Patient was examined at bedside; he appears alert, aware, and in no acute distress. He continues to be on tube feeding. Due to patient's soft BPs he was given multiple fluid boluses totaling about 4 L and given midodrine which have improved BPs somewhat. His morning dose of metoprolol was also held due to patient being tachycardic. Spinal MRI to assess for epidural abscess was unable to be completed yesterday due to patient's coughing fits. 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 Therefore, patient will be treated with a longer course of both IV meropenem and IV ciprofloxacin for double coverage of Pseudomonas. Sodium levels have been noted to be uptrending so free water flushes were increased from 50 to 60 cc/hr. Of note, patient was recently down- graded yesterday but the decision to upgrade him back to ICU was made due to ongoing signs of suspected infection and sepsis. Awaiting results from EEG and echocardiography and will reattempt spinal MRI (thoracic, lumbar) when opportune with possibility of lumbar tap. 03/01/25: Overnight, patient was able to be taken off of Levophed and received 500 mL fluid bolus. It was also reported that patient was having a lot of non- bloody emesis which is a new symptom for him. Patient was examined at bedside; he appears alert, aware, and in no acute distress. Patient is nonverbal but was able to show that he can respond yes or no via blinking signals which made it possible to assess for abdominal pain upon palpation, of which he had none. Pertinent labs today include hemoglobin drop to 7.0 from 8.9, potassium drop to 2.8 from 3.9, creatinine drop to 0.6 from 1.1, corrected calcium drop to 10.1 from 10.4, phosphorus drop to 2.0 from 3.7, and magnesium drop to 1.3 from 2.0. As mentioned yesterday, the current plan moving forward centers around treating patient's suspected ongoing MDR Pseudomonas pneumonia (corroborated by recent chest CT studies showing dramatically increased burden of diffuse tree-in-bud infiltrates and areas of bronchial thickening from October chest CT studies) with the combination of 7-day course IV meropenem and 7-day course IV ciprofloxacin for double Pseudomonas coverage. Due to the suspicion that patient's current febrile and hypotensive episodes are secondary to septic and vasodilatory inflammatory response from the aforementioned Pseudomonas pneumonia, the hope is that proper antibiotic treatment for patient's respiratory infection will also resolve his intermittent fevers of unknown origin and persistently soft blood pressures. It is also likely that patient would benefit from chronic suppressive antipseudomonal therapy after his acute infection has been cleared. Will continue to monitor patient's progression and treat his hypotension in the setting of sepsis with aggressive IV fluid resuscitation and vasopressors as needed. 03/02/2025: Overnight patient had a temperature spike of 101F and an episode of post-tussive emesis. Input 660 cc, output 1065 cc, balance -405 cc. 1+ BM. Patient is tracking with eyes and responsive to noxious stimuli. Labs showed Hb 7, WBC 6, PLT 216, K3.4, Phos 1.5, Mg 1.4, CRP 10, glucose 75. Patient was not able to get his MRI yesterday due to movement, will reattempt today and placed as needed diazepam for agitation. Currently on meropenem and ciprofloxacin for MDR VAP. Will resend sputum culture today. Repleted with K-Phos 30 mmol IV x 1, magnesium sulfate 4 g IV x 1. 03/03/25: Last night, patient once again had another episode of emesis which prompted PEG tube intermittent suctioning to be started. Then, around 9 AM this morning, to prevent patient from aspirating any vomitus, patient was put on ventilatory support so that the tracheostomy tube cuff can be inflated. He was started on PEG tube feeds with Jevity 1.5 L @ 30 mL/hr and water flush @ 6 mL/hr. In contrast to patient's vomiting, the episodes of hypotension and fevers seem to be improving. 02/27 EEG results returned today showing abnormal findings w/ diffuse slowing suggestive of a diffuse encephalopathy of metabolic, degenerative, or vascular origin as well as paroxysmal bursts of spike and wave discharges suggestive of seizure. Per neurology, no changes need to be made to patient's antiepileptic regimen (GT Keppra 1500 mg BID). The viability of obtaining a spinal MRI for the patient remains questionable due to his inability to lie flat without going into a fit of coughing. For now, patient will be continued on IV meropenem and IV ciprofloxacin (day 5 of 1-ysp-pyomgb) for suspected MDR Pseudomonas ventilator-associated pneumonia in the hopes that it will resolves his other symptoms. 03/04/25: Patient continues to have episodes of emesis with the most recent occurring early this morning at 5 AM. However, his MAP has been above 65 recently and his most recent fever of 100.9 occurred on 03/03 at 00:01 ( over 36 hours ago at the time of writing this note), possibly indicating that the treatment of his MDR Pseudomonas pneumonia with double coverage IV meropenem and IV ciprofloxacin has been favorable for the patient's overall condition (but it is still too early to tell for sure). Pertinent labs today include potassium 3.2 and magnesium 1.7, for which patient was given IV KCl 40 mg x 2 and IV MgSO4 4 mg x 1. In regards to patient's ongoing emesis, the patient's tube feed rate will be reduced from 30 mL/hr to 10 mL/hr to see if he tolerates it better; if tolerated after 12 hours, his tube feed rate will then be increased to 20 mL/hr. He has been on IV meropenem and IV ciprofloxacin now for 6 days total and the plan is to continue him on both for an additional 8 days (until 03/12) for a total of 14 days. Once patient is stabilized and the moment is appropriate, it is planned for patient to be downgraded directly to subacute with nebulized tobramycin for chronic suppressive antipseudomonal therapy. Exam Vital Signs Temp Pulse Resp BP Pulse Ox O2 Del Method O2 Flow Rate 97.1 F 54 L 23 H 98/57 L 100 Mechanical Ventilation 10 03/04/25 08:00 03/04/25 08:00 03/04/25 08:00 03/04/25 08:00 03/04/25 08:00 03/03/25 20:00 03/03/25 07:00 FiO2 30 03/04/25 08:00 Narrative Exam General: Awake and responsive to voice by eye tracking. Nonverbal. Thin male in no acute distress with tracheostomy. HEENT: NCAT, PERRLA, EOMI, some slight horizontal nystagmus noted, MMM, anicteric conjunctivae. CVS: Regular rate and rhythm. Normal S1 and S2. No M/R/G. Resp: Tracheostomy tube in place. Tachypneic. Coarse breathing B/L. No rhonchi, rales, crackles or wheezing. Abd: PEG tube in place. Soft, non-tender, non-distended. BS+ in all 4 quadrants. MSK: Upper and lower extremities are stiff with decerebrate posturing. Neuro: Limited exam due to medical condition. Can answer yes or no via blinking signals when coached. Objective Labs 03/04/25 04:57 03/04/25 04:57 Labs: Laboratory Results - last 24 hr 03/02/25 03/04/25 04:16 04:57 WBC 7.3 RBC 2.82 L Hgb 7.7 L Hct 24.4 L MCV 87 MCH 27.3 MCHC 31.6 RDW Std Deviation 76.4 H Plt Count 257 Neut % (Auto) 72 Lymph % (Auto) 14 [place] % (Auto) 11 Eos % (Auto) 3 Baso % (Auto) 0 Neut # (Auto) 5.2 Lymph # (Auto) 1.0 [place] # (Auto) 0.8 Eos # (Auto) 0.2 Baso # (Auto) 0.0 Immature Gran # (Auto) 0.03 H Absolute Nucleated RBC 0.00 Immature Gran % 0 Nucleated RBC % 0 Sodium 136 Potassium 3.2 L D Chloride 101 Carbon Dioxide 25.4 Anion Gap 10 BUN 5 L Creatinine 0.6 Estim Creat Clear Calc 142.6 eGFR > 60 BUN/Creatinine Ratio 8 L Glucose 93 Calculated Osmolality 269 L Calcium 9.3 Corrected Calcium 9.9 Phosphorus 2.7 Magnesium 1.7 Total Bilirubin 0.2 L AST 17 ALT 11 Alkaline Phosphatase 102 Total Protein 7.0 Albumin 3.3 L Globulin 3.7 H Albumin/Globulin Ratio 0.9 L Hepatitis C Antibody Non Reactive ABG Interpretation ABG results: 02/21/25 02/25/25 02/25/25 23:11 17:38 20:17 ABG pH 7.35 7.43 ABG pCO2 32 33 ABG pO2 39 L* 169 H D ABG HCO3 18 L 22 ABG O2 Saturation 68 L 101 H ABG Base Excess -7 L -2 VBG pH 7.50 VBG pCO2 30 L VBG pO2 66 H VBG Base Excess 1 02/26/25 04:07 ABG pH 7.45 ABG pCO2 31 L ABG pO2 146 H D ABG HCO3 21 ABG O2 Saturation 100 H ABG Base Excess -3 VBG pH VBG pCO2 VBG pO2 VBG Base Excess Quality Measures Quality Measures VTE prophylaxis (Heparin sc) Assessment & Plan Assessment Current Active Medications: Generic Name Dose Route Start Last Admin Trade Name Freq PRN Reason Stop Dose Admin Albuterol/Ipratropium 3 ml 02/22/25 13:00 03/03/25 19:15 Albuterol/Ipratropium (Duoneb) Rt [place] 3 Ml Nebu INH 03/24/25 12:59 3 ml Q6HRRT RADHA Administration Atropine Sulfate 0.5 mg 02/27/25 07:30 Atropine Sulf Inj 0.1 Mg/Ml Syr 10 Ml IVP Q3MIN PRN heart rate <45 Baclofen 20 mg 02/22/25 07:41 02/23/25 03:12 Baclofen 10 Mg Tablet GT 03/24/25 07:40 20 mg Q6HR PRN Administration Spasms Protocol Dextrose 25 ml 03/01/25 22:54 Dextrose 50%-Water Inj 50 Ml Syringe IV 03/31/25 22:53 Q15MIN PRN BG 50-70 responsive npo pt Dextrose 50 ml 03/01/25 22:54 Dextrose 50%-Water Inj 50 Ml Syringe IV 03/31/25 22:53 Q15MIN PRN BG <50 OR BG <70 & pt unresponsive Gabapentin 100 mg/ Gabapentin 400 mg 02/26/25 15:00 03/04/25 05:10 300 mg GT 03/27/25 21:59 400 mg TID RADHA Administration Glucagon 1 mg 03/01/25 22:54 Glucagon Inj 1 Mg Vial IM Q15MIN PRN BG <70, and no IV access Guaifenesin 200 mg 03/04/25 09:40 Guaifenesin Syrup 200 Mg/10 Ml Udc GT 03/27/25 20:59 QID PRN cough or congestion Protocol Heparin Sodium (Porcine) 5,000 unit 02/22/25 09:00 03/04/25 08:25 Heparin Sod Inj 5000 Unit/Ml Vial SC 03/08/25 08:59 5,000 unit BID RADHA Administration Ciprofloxacin/Dextrose 400 mg in 200 mls @ 200 mls/hr 02/28/25 18:30 03/04/25 01:47 Cipro Ivpb IV 03/07/25 18:29 200 mls/hr Q8H RADHA Administration Meropenem 2,000 mg/ Sodium 100 mls @ 100 mls/hr 03/01/25 14:00 03/04/25 05:10 Chloride IV 03/08/25 13:59 100 mls/hr Q8HR RADHA Administration Protocol Magnesium Sulfate 4 gm in 50 mls @ 12.5 mls/hr 03/04/25 07:37 03/04/25 08:25 Magnesium Sulfate Ivpb IV 03/04/25 11:36 12.5 mls/hr X1 ONE Administration Potassium Chloride 20 meq in 100 mls @ 50 mls/hr 03/04/25 11:36 Kcl Ivpb IV 03/04/25 15:35 Q2H RADHA Potassium Chloride 20 meq in 100 mls @ 50 mls/hr 03/04/25 09:15 Kcl Ivpb IV 03/04/25 13:14 Q2H RADHA Protocol Levetiracetam 1,500 mg 03/03/25 09:00 03/04/25 08:24 Levetiracetam Inj 100 Mg/Ml Vial 5ml IVP 04/02/25 08:59 1,500 mg Q12HR RADHA Administration Metoprolol Tartrate 100 mg 02/23/25 09:00 03/01/25 09:09 Metoprolol Tartrate 25 Mg Tablet GT 03/25/25 08:59 Not Given On Hold: 03/01/25 09:08 BID RADHA Midodrine 10 mg 03/01/25 14:00 03/04/25 05:04 Midodrine 5 Mg Tablet GT 03/31/25 13:59 10 mg TID RADHA Administration Ondansetron HCl 4 mg 02/21/25 23:14 03/04/25 05:03 Ondansetron Inj 2 Mg/Ml Inj 2 Ml IVP 03/23/25 23:13 4 mg Q6H PRN Administration NAUSEA OR VOMITING Protocol Pantoprazole Sodium 40 mg 02/22/25 09:00 03/04/25 08:24 Pantoprazole Inj 40 Mg Vial IVP 03/24/25 08:59 40 mg QDAY RADHA Administration Sodium Chloride 3 ml 02/25/25 18:51 Sodium Chloride Rt [place] 0.9% 3 Ml Nebu INH 03/27/25 18:50 PRN PRN SOLN Sodium Chloride 4 ml 02/27/25 07:09 Sodium Cl Rt [place] 3% 4 Ml Nebu (Non-Formulary) INH 03/29/25 07:06 PRN PRN SECRETIONS Thiamine HCl 100 mg 03/02/25 09:00 03/04/25 08:24 Thiamine Inj 100 Mg/Ml Vial 2 Ml IVP 04/01/25 08:59 100 mg QDAY RADHA Administration Plan Patient is a 29 year old male with past medical history of cocaine-induced cerebral vasculitis, seizures, anemia, chronic respiratory failure status post tracheostomy, status post PEG tube, and nonresponsive status with quadriparesis who was initially admitted from subacute facility on 02/21/2025 for sepsis 2/2 pneumonia. [employer] was called on 02/25 due to tachycardia, tachypnea and diaphoresis and patient was upgraded to ICU for further management. Patient continues to have episodes of emesis with the most recent occurring early this morning at 5 AM. However, his MAP has been above 65 recently and his most recent fever of 100.9 occurred on 03/03 at 00:01 (over 36 hours ago at the time of writing this note), possibly indicating that the treatment of his MDR Pseudomonas pneumonia with double coverage IV meropenem and IV ciprofloxacin has been favorable for the patient's overall condition (but it is still too early to tell for sure). Pertinent labs today include potassium 3.2 and magnesium 1.7, for which patient was given IV KCl 40 mg x 2 and IV MgSO4 4 mg x 1. In regards to patient's ongoing emesis, the patient's tube feed rate will be reduced from 30 mL/hr to 10 mL/hr to see if he tolerates it better; if tolerated after 12 hours, his tube feed rate will then be increased to 20 mL/hr. He has been on IV meropenem and IV ciprofloxacin now for 6 days total and the plan is to continue him on both for an additional 8 days (until 03/12) for a total of 14 days. Once patient is stabilized and the moment is appropriate, it is planned for patient to be downgraded directly to subacute with nebulized tobramycin for chronic suppressive antipseudomonal therapy. 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 He is also quadriplegic with spastic contractures and has reported history of seizures. Patient is status post tracheostomy and status post PEG tube (which patient is reliant on for feeding). Patient is aware and does respond to commands Dx: -02/27 EEG was abnormal with diffuse slowing suggestive of a diffuse encephalopathy of metabolic, degenerative, or vascular origin. There were also paroxysmal bursts of spike and wave discharges suggestive of seizure. Rx: -Due to ongoing episodes of emesis, tube feeds reduced from 30 mL/hr to 10 mL/hr (w/ water flushes 6 mL/hr) which will be increased to 20 mL/hr if tolerated after 12 hours -GT Keppra 1500 mg twice daily. -GT gabapentin 400 mg 3 times daily. -GT Baclofen 20 mg every 6 hours as needed. 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 (previously seen on ET secretion studies from multiple past visits) that have not been adequately treated with prior short-term antibiotic regimens Patient is s/p 6 days of IV meropenem and ciprofloxacin and his recent MAP has been greater than 65 at almost all times DDx: volume depletion 2/2 insensible losses (tachypneic expiration of water vapor through tracheostomy tube and diaphoretic sweating), ICU-provoked adrenal insufficiency, cardiogenic shock, central autonomic dysregulation (history of cerebral vasculitis and quadriparesis) Rx: -Due to ongoing episodes of emesis, tube feeds reduced from 30 mL/hr to 10 mL/hr (w/ water flushes 6 mL/hr) which will be increased to 20 mL/hr if tolerated after 12 hours -GT midodrine 10 mg TID for hypotension -IV Levophed prn for refractory hypotension -Double anti-pseudomonal antibiotic coverage as detailed in Respiratory and ID sections (for treatment of any component of patient's hypotension that is due to septic response) RRx: -Patient's BP has seemed better controlled as of late (MAP is usually above 65) Respiratory: #Multifocal pneumonia, likely Pseudomonas #Chronic mucous plugging It was suspected that patient's ongoing febrile episodes and hypotension despite broad-coverage antibiotic regimen with IV meropenem (and previously Zosyn, vancomycin, and cefepime) was due to 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 (previously seen on ET secretion studies from multiple past visits) that has now developed into Pseudomonas pneumonia with sepsis Dx: -Comparison of 10/31/24 and 02/26/25 chest CTAs shows similar areas of pneumonia, suggesting chronic colonization of the patient's lungs with possibly multidrug- resistant strains of Pseudomonas (previously seen on ET secretion studies from multiple past visits) that have not been adequately treated with recent short- term antibiotic stints and have now developed into Pseudomonas pneumonia -02/25 sputum culture grew Proteus mirablis sensitive to meropenem but not ciprofloxacin or levofloxacin -02/22 sputum culture grew Pseudomonas aeruginosa, ESBL Klebsiella pneumoniae, and Proteus mirablis (all sensitive to ciprofloxacin and aztreonam only) -02/10 sputum culture grew Pseudomonas resistant to meropenem, Klebsiella indeterminant for Zosyn and Proteus resistant to cefepime and ciprofloxacin ?09/21 sputum culture grew Klebsiella and Proteus sensitive to cefepime, meropenem and ciprofloxacin. -02/25 BCx both (-) -12/20 urine grew Pseudomonas resistant to meropenem and cefepime -02/28 echocardiogram showed no signs of endocarditis or vegetations -Thoracic and lumbar spinal MRI (to evaluate for possible epidural abscess) was attempted today but cancelled due to patient having an episode of vomiting after an attempt to lie him flat Rx: -Ceftriaxone 1 g IV daily [02/22 - 02/22] -Cefepime 2 g IV daily [02/22 - 02/25] -Vancomycin IV [02/21 - 02/22, 02/23 - 02/27 intermittent dosing based on trough] -Zosyn 3.375 g IV Q8 hourly [02/25 - 02/27] -IV meropenem 2000 mg q8HR (started 02/27--), day 6 of 14 day course -IV ciprofloxacin 400 mg q8HR (started 02/27--), day 6 of 14 day course -Start nebulized tobramycin once discharged for chronic suppressive antipseudomonal therapy -Chest physiotherapy twice daily ordered -INH Duoneb 3 mL q6HRRT -INH sodium chloride 4 mL prn for secretions RRx: -Initially in September patient's previous sputum culture on file grew Klebsiella and Proteus pansensitive to most tested antibiotics including meropenem, ciprofloxacin and Zosyn. Over the course of 5 months patient rapidly developed multidrug-resistant organisms. ? Patient's sputum culture from 02/22 grew Pseudomonas, Klebsiella and Proteus. Pseudomonas and Proteus was sensitive to cefepime however Klebsiella was resistant. All tested organisms were sensitive to ciprofloxacin however. During the time period from 02/22 - 02/25 patient was on cefepime, ceftriaxone and vancomycin. Therefore not effective coverage for ESBL Klebsiella which was rapidly evolving. Also patient's sensitivity report was included which showed Pseudomonas was sensitive to ceftriaxone. This was very perplexing and further investigation are being conducted. -Despite trials of many antibiotics including cefepime, Zosyn, vancomycin, and now meropenem, patient continues to spike fevers. Since current working diagnosis is that this is 2/2 MDR Pseudomonas pneumonia, we will see if the double anti-pseudomonal coverage solves this issue Gastrointestinal: #Nonbloody emesis Possibly post-tussive in nature (patient has reportedly had coughing fits recently) On 03/01 physical exam, abdomen was soft and non-distended; patient used blinking signals to convey that he denied abdominal tenderness to palpation in all quadrants DDx: post-tussive emesis, sepsis-related emesis, electrolyte derangement-related emesis, viral gastroenteritis Dx: -Patient threw up again today at 5 AM and then once more when an attempt to obtain a spinal MRI was made Rx: -Due to ongoing episodes of emesis, tube feeds reduced from 30 mL/hr to 10 mL/hr (w/ water flushes 6 mL/hr) which will be increased to 20 mL/hr if tolerated after 12 hours -IV Zofran 4 mg q6HR prn for nausea/vomiting -Will refrain from using IV Reglan as it is contraindicated in patients with history of seizures -Replete/correct electrolytes as appropriate RRx: -Patient's main issue has been continuing emesis that is refractory to Zofran and does not seem to be improving; it is hoped that a slower tube feed rate may help reduce patient's vomiting spells Renal: No active issues Endocrine: No active issues Infectious Disease: #Fever of unknown origin, intermittent and refractory to antibiotics (improving) An ongoing issue for the patient has been repeated febrile episodes despite broad-spectrum antibiotic coverage Patient spiked a fever of 101.6 in the evening of 02/26 while actively receiving IV meropenem Currently suspect that etiology is due to 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 (previously seen on ET secretion studies from multiple past visits) that has now developed into Pseudomonas pneumonia with sepsis DDx: other occult infectious etiology (epidural abscess, endocarditis, chronic meningitis, disseminated fungal infection), rheumatologic etiology (patient has history of 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 which is more likely a earqsaadme-wkagtidwoqp-earlbml ANCA-associated vasculitis), 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 -BCx (-) -CRP and ESR elevated at 10.0 and 71, respectively -ANCA Screen, MPO & PR3, w/ Reflex Titer ordered, results pending -HCV antibody negative -HIV (1&2) rapid antibody screen negative -No erythema nodosum seen on physical exam Rx: -IV meropenem 2000 mg q8HR (started 02/27--), day 6 of 14 day course -IV ciprofloxacin 400 mg q8HR (started 02/27--), day 6 of 14 day course -Start nebulized tobramycin once discharged for chronic suppressive antipseudomonal therapy RRx: -Despite trials of many antibiotics including cefepime, Zosyn, vancomycin, and now meropenem, patient had continued to spike fevers. Since current working diagnosis is that this is 2/2 MDR Pseudomonas pneumonia, we will see if the double anti-pseudomonal coverage solves this issue while actively following up on other studies like spinal MRI, echocardiogram, or lumbar tap to work-up other possible occult sources of infection. Rheumatologic studies may also be pursued but etiologies of that nature are currently lower on the list of differentials. -Most recent fever of 100.9 occurred on 03/03 at 00:01 (over 36 hours ago at the time of writing this note), possibly indicating that the treatment of his MDR Pseudomonas pneumonia with double coverage IV meropenem and IV ciprofloxacin has been favorable for the patient's overall condition (but it is still too early to tell for sure) Hematology/Oncology: #Chronic normocytic anemia Hgb has hovered between 8-10 in the past few days Hgb 7.7 (stable from yesterday) Rx: -Monitor CBC, transfuse if Hgb<7 RRx: -Continue to monitor CBC Lines: L subclavian central line Diet: PEG tube feeds (rate reduced from 30 mL/hr to 10 mL/hr) DVT prophylaxis: Heparin. GI prophylaxis: Protonix. Code status: DNR. Disposition: IV antibiotics, BP monitoring Plan of care discussed with Attending Dr. Madison Lakhani, Internal Medicine, PGY-1 Attending Provider Attestation/Addendum I personally saw and examined the patient and supervised PGY 1 resident, Dr. Lakhani with formulating a management plan. I agree with his documentation with the exceptions as listed. 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 Tube feeds were reduced to a slower rate. Patient continues to be on double pseudomonal coverage with meropenem and ciprofloxacin IV for a total of 14 days to complete on 03/13/2025. Recommend patient's be on intermittent inhaled tobramycin for suppression when he gets discharged. When patient is stable will downgrade him directly to subacute. With regards to obtain SPINAL MRI, again for the third day in a row patient vomiting on the MRI table and the procedure had to be canceled. At this point we will not actively pursue spinal imaging. ID, Dr Vargas was consulted and recommended a short course of steroids as he suggested likely etiology of his persistent fever is vasculitis. At this point patient continues to be on the ventilator on spontaneous mode for airway protection as he continues to vomit. Plan of care discussed with Attending Dr. Madison Cabrera MD PGY 2 Disclaimer: This note was dictated by speech recognition. Minor errors in fan balancer may be present due to voice recognition software.
[2025-03-04] MEDS: POTASSIUM CHL 20 mEq IVPB 20 MEQ/100 ML BAG 50 MEQ IV ×2 (09:53→13:22)
--- NOTE | 2025-03-04 10:20 | PD.IDPROG ---
Subjective Subjective Interval history: on vent but settings low. seems like a vasculitis of some sort as cxr again with limited change and atypical coverage has not helped significantly Exam Vital Signs Temp Pulse Resp BP Pulse Ox O2 Del Method O2 Flow Rate 97.1 F 69 19 110/65 100 Mechanical Ventilation 10 03/04/25 08:00 03/04/25 10:00 03/04/25 10:00 03/04/25 10:00 03/04/25 10:00 03/03/25 20:00 03/03/25 07:00 FiO2 30 03/04/25 08:00 Narrative Exam not interactive. contractures of hands and feet noted. Objective - Internal Medicine Labs 03/04/25 04:57 03/04/25 04:57 Labs: Laboratory Results - last 24 hr 03/02/25 03/04/25 04:16 04:57 WBC 7.3 RBC 2.82 L Hgb 7.7 L Hct 24.4 L MCV 87 MCH 27.3 MCHC 31.6 RDW Std Deviation 76.4 H Plt Count 257 Neut % (Auto) 72 Lymph % (Auto) 14 [place] % (Auto) 11 Eos % (Auto) 3 Baso % (Auto) 0 Neut # (Auto) 5.2 Lymph # (Auto) 1.0 [place] # (Auto) 0.8 Eos # (Auto) 0.2 Baso # (Auto) 0.0 Immature Gran # (Auto) 0.03 H Absolute Nucleated RBC 0.00 Immature Gran % 0 Nucleated RBC % 0 Sodium 136 Potassium 3.2 L D Chloride 101 Carbon Dioxide 25.4 Anion Gap 10 BUN 5 L Creatinine 0.6 Estim Creat Clear Calc 142.6 eGFR > 60 BUN/Creatinine Ratio 8 L Glucose 93 Calculated Osmolality 269 L Calcium 9.3 Corrected Calcium 9.9 Phosphorus 2.7 Magnesium 1.7 Total Bilirubin 0.2 L AST 17 ALT 11 Alkaline Phosphatase 102 Total Protein 7.0 Albumin 3.3 L Globulin 3.7 H Albumin/Globulin Ratio 0.9 L Hepatitis C Antibody Non Reactive ABG Interpretation ABG results: 02/21/25 02/25/25 02/25/25 23:11 17:38 20:17 ABG pH 7.35 7.43 ABG pCO2 32 33 ABG pO2 39 L* 169 H D ABG HCO3 18 L 22 ABG O2 Saturation 68 L 101 H ABG Base Excess -7 L -2 VBG pH 7.50 VBG pCO2 30 L VBG pO2 66 H VBG Base Excess 1 02/26/25 04:07 ABG pH 7.45 ABG pCO2 31 L ABG pO2 146 H D ABG HCO3 21 ABG O2 Saturation 100 H ABG Base Excess -3 VBG pH VBG pCO2 VBG pO2 VBG Base Excess Assessment & Plan A&P Narrative on cipro. chest imaging neg. prior rx noted. fuo eval with neg abd and ongoing fever esr and crp high not all fevers are infectious likely has vasculitis of some sort. ok to try steroids as abx do not seem to have worked. agree with dnr status. stopped the merrem for now. ok to stop or maintain cipro if steroids started latest sputum cx noted. likely colonization given cxr, so quinolone ok for now. will re assess wed if still in acute care. prognosis guarded. Time Spent With Patient Time: Total time spent is greater than 50% in coordination of care (as documented) at patient's floor/unit and/or counseling patient:
[2025-03-04] MEDS: DIAZEPAM INJ 5 MG/ML VIAL 2 ML 1 MG IVP (11:50)
--- NOTE | 2025-03-04 11:58 | PC.SS ---
VENEER PATCHER recevied request from [facility]; to submit 02-19-25 PASSR on file exchange. VENEER PATCHER re-submitted PASSR as requested. PASSR results had been submitted previously. Sub-acute staff unable to access PASSR results on file exchange.
--- NOTE | 2025-03-04 12:42 | PC.RT ---
PT taken to MRI for exam On transport vent @1143. PT began projectile vomiting while in exam and exam stopped. Returned to ICU @1238 and placed back on ventilator with same settings as before.
--- NOTE | 2025-03-04 16:01 | ESPR_ITS ---
Documentation for date of: 03/04/25 Subjective Subjective Interval history: Patient examined at bedside today. No acute overnight events. Patient is able to track eyes in response to closing eyes to command. Currently on slow rate of tube feeds at this time. Patient will need to be clear fever for 24 hours for further management to subacute. No complaints at this time. Exam Vital Signs Temp Pulse Resp BP Pulse Ox O2 Del Method O2 Flow Rate 97.1 F 97 27 H 107/65 100 Mechanical Ventilation 10 03/04/25 08:00 03/04/25 15:00 03/04/25 15:00 03/04/25 15:00 03/04/25 15:00 03/03/25 20:00 03/03/25 07:00 FiO2 35 03/04/25 13:09 Narrative Exam General: Awake and responsive to voice by eye tracking. Nonverbal. Thin male in no acute distress with tracheostomy. HEENT: NCAT, PERRLA, EOMI, some slight horizontal nystagmus noted, MMM, anicteric conjunctivae. CVS: Regular rate and rhythm. Normal S1 and S2. No M/R/G. Resp: Tracheostomy tube in place. Tachypneic. Coarse breathing B/L. No rhonchi, rales, crackles or wheezing. Abd: PEG tube in place. Soft, non-tender, non-distended. BS+ in all 4 quadrants. MSK: Upper and lower extremities are stiff with decerebrate posturing. Neuro: Limited exam due to medical condition. Can answer yes or no via blinking signals when coached. Objective Labs 03/05/25 05:15 03/05/25 05:15 Labs: Laboratory Results - last 24 hr 03/01/25 03/02/25 03/04/25 15:02 04:16 04:57 WBC 7.3 RBC 2.82 L Hgb 7.7 L Hct 24.4 L MCV 87 MCH 27.3 MCHC 31.6 RDW Std Deviation 76.4 H Plt Count 257 Neut % (Auto) 72 Lymph % (Auto) 14 [place] % (Auto) 11 Eos % (Auto) 3 Baso % (Auto) 0 Neut # (Auto) 5.2 Lymph # (Auto) 1.0 [place] # (Auto) 0.8 Eos # (Auto) 0.2 Baso # (Auto) 0.0 Immature Gran # (Auto) 0.03 H Absolute Nucleated RBC 0.00 Immature Gran % 0 Nucleated RBC % 0 Sodium 136 Potassium 3.2 L D Chloride 101 Carbon Dioxide 25.4 Anion Gap 10 BUN 5 L Creatinine 0.6 Estim Creat Clear Calc 142.6 eGFR > 60 BUN/Creatinine Ratio 8 L Glucose 93 Calculated Osmolality 269 L Calcium 9.3 Corrected Calcium 9.9 Phosphorus 2.7 Magnesium 1.7 Total Bilirubin 0.2 L AST 17 ALT 11 Alkaline Phosphatase 102 Total Protein 7.0 Albumin 3.3 L Globulin 3.7 H Albumin/Globulin Ratio 0.9 L Hepatitis C Antibody Non Reactive Crossmatch See Detail ABG Interpretation ABG results: 02/21/25 02/25/25 02/25/25 23:11 17:38 20:17 ABG pH 7.35 7.43 ABG pCO2 32 33 ABG pO2 39 L* 169 H D ABG HCO3 18 L 22 ABG O2 Saturation 68 L 101 H ABG Base Excess -7 L -2 VBG pH 7.50 VBG pCO2 30 L VBG pO2 66 H VBG Base Excess 1 02/26/25 04:07 ABG pH 7.45 ABG pCO2 31 L ABG pO2 146 H D ABG HCO3 21 ABG O2 Saturation 100 H ABG Base Excess -3 VBG pH VBG pCO2 VBG pO2 VBG Base Excess Quality Measures Quality Measures VTE prophylaxis (Heparin sc) Assessment & Plan Assessment Current Active Medications: Generic Name Dose Route Start Last Admin Trade Name Freq PRN Reason Stop Dose Admin Albuterol/Ipratropium 3 ml 02/22/25 13:00 03/04/25 13:09 Albuterol/Ipratropium (Duoneb) Rt [place] 3 Ml Nebu INH 03/24/25 12:59 3 ml Q6HRRT RADHA Administration Atropine Sulfate 0.5 mg 02/27/25 07:30 Atropine Sulf Inj 0.1 Mg/Ml Syr 10 Ml IVP Q3MIN PRN heart rate <45 Baclofen 20 mg 02/22/25 07:41 02/23/25 03:12 Baclofen 10 Mg Tablet GT 03/24/25 07:40 20 mg Q6HR PRN Administration Spasms Protocol Dextrose 25 ml 03/01/25 22:54 Dextrose 50%-Water Inj 50 Ml Syringe IV 03/31/25 22:53 Q15MIN PRN BG 50-70 responsive npo pt Dextrose 50 ml 03/01/25 22:54 Dextrose 50%-Water Inj 50 Ml Syringe IV 03/31/25 22:53 Q15MIN PRN BG <50 OR BG <70 & pt unresponsive Gabapentin 100 mg/ Gabapentin 400 mg 02/26/25 15:00 03/04/25 14:39 300 mg GT 03/27/25 21:59 400 mg TID RADHA Administration Glucagon 1 mg 03/01/25 22:54 Glucagon Inj 1 Mg Vial IM Q15MIN PRN BG <70, and no IV access Guaifenesin 200 mg 03/04/25 09:40 Guaifenesin Syrup 200 Mg/10 Ml Udc GT 03/27/25 20:59 QID PRN cough or congestion Protocol Heparin Sodium (Porcine) 5,000 unit 02/22/25 09:00 03/04/25 08:25 Heparin Sod Inj 5000 Unit/Ml Vial SC 03/08/25 08:59 5,000 unit BID RADHA Administration Ciprofloxacin/Dextrose 400 mg in 200 mls @ 200 mls/hr 02/28/25 18:30 03/04/25 09:53 Cipro Ivpb IV 03/07/25 18:29 200 mls/hr Q8H RADHA Administration Meropenem 2,000 mg/ Sodium 100 mls @ 100 mls/hr 03/01/25 14:00 03/04/25 14:40 Chloride IV 03/08/25 13:59 100 mls/hr Q8HR RADHA Administration Protocol Levetiracetam 1,500 mg 03/03/25 09:00 03/04/25 08:24 Levetiracetam Inj 100 Mg/Ml Vial 5ml IVP 04/02/25 08:59 1,500 mg Q12HR RADHA Administration Metoprolol Tartrate 100 mg 02/23/25 09:00 03/01/25 09:09 Metoprolol Tartrate 25 Mg Tablet GT 03/25/25 08:59 Not Given On Hold: 03/01/25 09:08 BID RADHA Midodrine 10 mg 03/01/25 14:00 03/04/25 14:39 Midodrine 5 Mg Tablet GT 03/31/25 13:59 10 mg TID RADHA Administration Ondansetron HCl 4 mg 02/21/25 23:14 03/04/25 05:03 Ondansetron Inj 2 Mg/Ml Inj 2 Ml IVP 03/23/25 23:13 4 mg Q6H PRN Administration NAUSEA OR VOMITING Protocol Pantoprazole Sodium 40 mg 02/22/25 09:00 03/04/25 08:24 Pantoprazole Inj 40 Mg Vial IVP 03/24/25 08:59 40 mg QDAY RADHA Administration Sodium Chloride 3 ml 02/25/25 18:51 Sodium Chloride Rt [place] 0.9% 3 Ml Nebu INH 03/27/25 18:50 PRN PRN SOLN Sodium Chloride 4 ml 02/27/25 07:09 Sodium Cl Rt [place] 3% 4 Ml Nebu (Non-Formulary) INH 03/29/25 07:06 PRN PRN SECRETIONS Thiamine HCl 100 mg 03/02/25 09:00 03/04/25 08:24 Thiamine Inj 100 Mg/Ml Vial 2 Ml IVP 04/01/25 08:59 100 mg QDAY RADHA Administration Plan Assessment Patient is a 29 year old male with past medical history of cocaine-induced cerebral vasculitis, seizures, anemia, chronic respiratory failure status post tracheostomy, status post PEG tube, and nonresponsive status with quadriparesis who was initially admitted from subacute facility on 02/21/2025 for sepsis 2/2 pneumonia. [employer] was called on 02/25 due to tachycardia, tachypnea and diaphoresis and patient was upgraded to ICU for further management. 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 He is also quadriplegic with spastic contractures and has reported history of seizures. Patient is status post tracheostomy and status post PEG tube (which patient is reliant on for feeding). Patient is aware and does respond to commands Plan: ? Continue tube feeds at slow rate ? GT Keppra 1500 mg twice daily ? GT gabapentin 400 mg 3 times daily ? GT Baclofen 20 mg every 6 hours as needed ? Consider IV Reglan for recurrent vomiting #Hypotension, refractory (improving) #?Septic shock #Multifocal pneumonia, likely Pseudomonas #Chronic mucous plugging #Nonbloody emesis #Fever of unknown origin, intermittent and refractory to antibiotics (improving) #Chronic normocytic anemia Patient seen and care discussed with my attending physician, Dr. Grant Matias, PGY-2 Attending Provider Attestation/Addendum I personally have seen and examined the patient at the bedside and agree with resident's findings, assessment and plan of care. Patient is neurologically stable even though the repeat EEG showed epileptic in bursts with diffuse slowing. Keep him on current dose of antiepileptic drug. As he remains afebrile for more than 24 hours and hemodynamically stable, patient will be cleared to transfer back to subacute
[2025-03-05] VITALS (33 sets, daily range): BP systolic 99–121; BP diastolic 52–74; PULSE 90–108; RESP 20–53; TEMP 36.1–37; O2SAT 97–100; BMI 15.4
[2025-03-05] MEDS: ALBUTEROL/IPRATROPIUM (Duoneb) RT SOL 3 ML NEBU INH ×2 (00:05→06:09)
[2025-03-05] MEDS: CIPROFLOXACIN/D5w 400 MG IVPB 400 MG/200 ML BAG 200 MG IV ×3 (03:18→18:41)
[2025-03-05] MEDS: ONDANSETRON INJ 2 MG/ML INJ 2 ML 4 MG IVP ×2 (05:45→11:55)
[2025-03-05 05:51] LABS: Basophils # (Auto) 0.0 Thou/mm3 (0.0-0.2); Basophils % (Auto) 0 % (0-2.5); Eosinophils # (Auto) 0.1 Thou/mm3 (0.0-0.5); Eosinophils % (Auto) 1 % (0-10); Hematocrit 25.8 % (41.0-53.0); Immature Granulocytes Auto 0.05 Thou/mm3 (0.00-0.00); Lymphocytes # (Auto) 0.7 Thou/mm3 (1.0-4.8); Lymphocytes % (Auto) 7 % (10-50); Mean Corpuscular HGB Conc 31.8 g/dl (31.0-37.0); Mean Corpuscular Hemoglobin 27.5 pg (25.0-35.0); Mean Corpuscular Volume 87 fL (80-100); Monocytes # (Auto) 0.9 Thou/mm3 (0.0-0.8); Monocytes % (Auto) 8 % (0-12); Neutrophils # (Auto) 9.0 Thou/mm3 (1.8-7.7); Neutrophils % (Auto) 84 % (37-80); Nucleated Red Blood Cell # 0.00 Thou/mm3 (0.00-0.00); Nucleated Red Blood Cell % 0 /100 WBC (0); Platelet Count 293 Thou/mm3 (140-440); RDW Standard Deviation 76.3 fL (35.1-43.9); Red Blood Count 2.98 Miln/mm3 (4.50-5.90); White Blood Count 10.8 Thou/mm3 (3.8-10.6)
[2025-03-05] MEDS: MEROPENEM INJ 2,000 MG in SODIUM CHLORIDE 0.9% 100 ML 100 MG IV ×3 (05:51→21:26)
[2025-03-05 05:53] LABS: Hemoglobin 8.2 g/dL (13.5-16.0)
[2025-03-05 06:25] LABS: Alanine Aminotransferase 10 U/L (10-49); Albumin, Serum 3.5 gm/dL (3.5-5.0); Albumin/Globulin Ratio 0.8 (1.2-2.2); Alkaline Phosphatase 106 U/L (46-116); Anion Gap 10 (7-16); Aspartate Amino Transferase 12 U/L (0-34); BUN/Creatinine Ratio 10 Ratio (12-20); Bilirubin,Total 0.2 mg/dL (0.3-1.2); Blood Urea Nitrogen 6 mg/dL (9-23); Calcium 9.7 mg/dL (8.3-10.6); Calcium (Corrected) 10.1 mg/dL (8.5-10.1); Carbon Dioxide 25.1 mMol/L (20.0-31.0); Chloride 102 mMol/L (98-107); Creatinine (Component) 0.6 mg/dL (0.6-1.3); Estimated Creatinine Clearance 135.1 mL/min (>60); Globulin 4.2 gm/dL (2.3-3.5); Glucose 100 mg/dL (74-106); Magnesium 2.0 mg/dL (1.6-2.6); Osmolality,Calculated 271 (275-295); Phosphorous 2.0 mg/dL (2.4-5.1); Potassium 3.4 mMol/L (3.4-5.1); Sodium 137 mMol/L (136-145); Total Protein 7.7 gm/dL (5.7-8.2); eGFR > 60 See Note
[2025-03-05] MEDS: METOCLOPRAMIDE INJ 5 MG/ML VIAL 2 ML 10 MG IVP (07:38)
[2025-03-05] MEDS: POT PHOS 15 mMol in NS 250 ML 15 MMOL/250 ML BAG 62.5 MMOL IV ×2 (07:39→11:54)
[2025-03-05] MEDS: DEXTROSE 5%-WATER 1,000 ML 100 ML IV (07:39)
--- NOTE | 2025-03-05 08:25 | EKG_ITS ---
[facility] Test Date: 2025-03-05 Pat Name: STAS CASTLE [facility] Gender[facility] Male Lens Cleaner: PAULA ROUSSEAUB: 1995 Requested By: Bird Cabrera Order Number: [id number] Reading MD: Bird Cabrera Measurements Intervals [place] Rate: 96 P: 73 GA: 129 QRS: 29 QRSD: 78 T: 66 QT: 363 QTc: 459 Interpretive Statements SINUS RHYTHM NONSPECIFIC ST ELEVATION Compared to ECG 02/25/2025 17:14:43 ST (T wave) deviation now present Supraventricular tachycardia no longer present T-wave abnormality no longer present /store/[id number]
[2025-03-05] MEDS: levETIRAcetam INJ 100 MG/ML VIAL 5ML 1500 MG IVP (09:10)
[2025-03-05] MEDS: THIAMINE INJ 100 MG/ML VIAL 2 ML IVP (09:10)
[2025-03-05] MEDS: HEPARIN SOD INJ 5000 UNIT/ML VIAL SC ×2 (09:10→21:27)
[2025-03-05] MEDS: DIAZEPAM INJ 5 MG/ML VIAL 2 ML 10 MG IVP ×2 (10:34→21:26)
--- NOTE | 2025-03-05 11:11 | ESPR_ITS ---
<Statement entered by Casey Wallace MD - 03/07/25 12:58> TOTAL TIME: 45MINUTES ON DIRECT MEDICAL CARE, MANAGEMENT - COORDINATION AND COUNSELING > 50% OF TOTAL TIME I saw and evaluated the patient. I reviewed the resident?s note and agree with findings and plan as documented in the resident?s note. Improving fever curve, continue 14-day total meropenem course followed by nebulized tobramycin on and off as preventative therapy. Keep cuff inflated on mechanical ventilator. <Statement entered by Bird Cabrera MD - 03/06/25 15:03> I personally saw and examined the patient and supervised PGY 1 resident, Dr. Lakhani with formulating a management plan. I agree with his documentation with the exceptions as listed. 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 Patient was started on diazepam 10 mg IV twice daily as an off- label use for emesis. His baclofen will be scheduled from tomorrow this will help with gastric motility as well as spasms. He was also started on TPN due to not being able to tolerate tube feeds. Keppra was decreased to 1 g twice daily from 1500 g twice daily as per neurology recommendations, this may have also been a cause of his vomiting. Currently he is on day 7 meropenem 2 g IV every 8 hourly and ciprofloxacin 200 mg IV every 8 hourly to complete a total of 14 days on 03/13/2025. His electrolytes were repleted with K-Phos and magnesium sulfate. Due to his history of persistent vomiting and high risk of aspiration, we will continue to keep him on spontaneous mode ventilation with FiO2 35% for airway protection. Plan of care discussed with Attending Dr. Madison Cabrera MD PGY 2 Disclaimer: This note was dictated by speech recognition. Minor errors in atomic fuel assembler may be present due to voice recognition software. Documentation for date of: 03/05/25 Subjective Subjective Interval history: Patient is a 29 years old male with past medical history of cocaine induced cerebral vasculitis, seizures, anemia, chronic respiratory failure status post tracheostomy, status post PEG tube, nonresponsive with quadriparesis admitted from subacute facility on 02/21/2025 for sepsis 2/2 pneumonia. Patient was recently discharged from inpatient for sepsis secondary to ventilator related pneumonia and cellulitis of the leg, was discharged 3 days prior to current admission. He was started on IV cefepime with significant improvement of his condition. Sputum cultures showed ESBL klebsiella, pseudomonas and proteus. Today he was planned for discharge, switched to PO Augmentin and levofloxacin. However, [employer] was called today due to tachycardia, tachypnea and diaphoresis. Vitals showed HR in 160-170s and regular, RR 40-45, BP 105/73, oxygen saturation 100% on blow by, fever of 104 F. Fingerstick glucose was 40s. Labs showed worsening bicarb 15.1, potassium 5.7, anion gap 20, glucose 181, LA 9.2, otherwise no significant lab changes. VBG showed pCO2 32, pH 7.35. EKG showed sinus tachycardia. CXR showed significant left upper lobe pneumonia. CTA and CTAP were ordered by primary team. Patient was upgraded to ICU for further management. Interval History 02/26/25: Patient was examined at bedside; he has a tracheostomy tube in place and his eyes flutter open in response to voice. Pertinent labs today include ABG pH 7.45, pCO2 31, pCO2 146, HCO3 21, anion gap downtrended to 13 from 20, lactic acid down trended to 0.7 from 9.2, and all other labs within normal limits. 02/26 chest CTA showed bilateral pneumonia that is most prominent in the right upper lobe, mild hilar lymphadenopathy, endotracheal tube tip at 4 cm above nahid, and no findings suggestive for pulmonary artery emboli. 02/26 CTAP showed right base pneumonia with no pericecal inflammatory change. Based on sputum cultures, patient's antibiotic regimen was switched from cefepime to Zosyn. Plan is to continue antibiotics to treat patient's pneumonia and sepsis, and to wean patient off of ventilatory support and sedation before he can be downgraded. 02/27/25: Patient was examined at bedside; he was awake and seems responsive to voice and aware of this leader writer's presence. Pertinent labs today include Hgb drop to 7.8 from 9.9 (MCV 86, RDW 77.0, likely hemodilution) and magnesium 1.4. 02/27 CXR shows satisfactory positioning of the tip of the left subclavian central line that was placed today (consent obtained via telephone call from patient's mother, Sara Carmona). Patient's sudden spike in lactic acid levels to 9.2 on 02/25 with rapid return to baseline is suspicious for seizure-like activity; an EEG has been ordered as a result. Patient has also recently been spiking a fever (101.4 today) despite prompt treatment of his ventilator-associated pneumonia or hospital-acquired pneumonia with IV Zosyn and IV vancomycin. Apparently, he has recurrent history of this. His current antibiotic regimen has been switched to IV meropenem and orders for a spinal MRI and possible lumbar tap have been placed to search for possible overlooked nidus for infection (i.e. spinal epidural abscess, meningitis). Patient has stopped being chemically sedated since 06:00 yesterday and has been off of pressors since 5 AM today. Plan to continue IV meropenem for patient's pneumonia and wean him off of ventilatory support before he is stabilized enough to be down-graded. 02/28/25: Per IM team note, patient had an episode of atrial fibrillation overnight in the setting of MAP 54 and fever of 101.4. Patient was examined at bedside; he appears alert, aware, and in no acute distress. He continues to be on tube feeding. Due to patient's soft BPs he was given multiple fluid boluses totaling about 4 L and given midodrine which have improved BPs somewhat. His morning dose of metoprolol was also held due to patient being tachycardic. Spinal MRI to assess for epidural abscess was unable to be completed yesterday due to patient's coughing fits. 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 Therefore, patient will be treated with a longer course of both IV meropenem and IV ciprofloxacin for double coverage of Pseudomonas. Sodium levels have been noted to be uptrending so free water flushes were increased from 50 to 60 cc/hr. Of note, patient was recently down- graded yesterday but the decision to upgrade him back to ICU was made due to ongoing signs of suspected infection and sepsis. Awaiting results from EEG and echocardiography and will reattempt spinal MRI (thoracic, lumbar) when opportune with possibility of lumbar tap. 03/01/25: Overnight, patient was able to be taken off of Levophed and received 500 mL fluid bolus. It was also reported that patient was having a lot of non- bloody emesis which is a new symptom for him. Patient was examined at bedside; he appears alert, aware, and in no acute distress. Patient is nonverbal but was able to show that he can respond yes or no via blinking signals which made it possible to assess for abdominal pain upon palpation, of which he had none. Pertinent labs today include hemoglobin drop to 7.0 from 8.9, potassium drop to 2.8 from 3.9, creatinine drop to 0.6 from 1.1, corrected calcium drop to 10.1 from 10.4, phosphorus drop to 2.0 from 3.7, and magnesium drop to 1.3 from 2.0. As mentioned yesterday, the current plan moving forward centers around treating patient's suspected ongoing MDR Pseudomonas pneumonia (corroborated by recent chest CT studies showing dramatically increased burden of diffuse tree-in-bud infiltrates and areas of bronchial thickening from October chest CT studies) with the combination of 7-day course IV meropenem and 7-day course IV ciprofloxacin for double Pseudomonas coverage. Due to the suspicion that patient's current febrile and hypotensive episodes are secondary to septic and vasodilatory inflammatory response from the aforementioned Pseudomonas pneumonia, the hope is that proper antibiotic treatment for patient's respiratory infection will also resolve his intermittent fevers of unknown origin and persistently soft blood pressures. It is also likely that patient would benefit from chronic suppressive antipseudomonal therapy after his acute infection has been cleared. Will continue to monitor patient's progression and treat his hypotension in the setting of sepsis with aggressive IV fluid resuscitation and vasopressors as needed. 03/02/2025: Overnight patient had a temperature spike of 101F and an episode of post-tussive emesis. Input 660 cc, output 1065 cc, balance -405 cc. 1+ BM. Patient is tracking with eyes and responsive to noxious stimuli. Labs showed Hb 7, WBC 6, PLT 216, K3.4, Phos 1.5, Mg 1.4, CRP 10, glucose 75. Patient was not able to get his MRI yesterday due to movement, will reattempt today and placed as needed diazepam for agitation. Currently on meropenem and ciprofloxacin for MDR VAP. Will resend sputum culture today. Repleted with K-Phos 30 mmol IV x 1, magnesium sulfate 4 g IV x 1. 03/03/25: Last night, patient once again had another episode of emesis which prompted PEG tube intermittent suctioning to be started. Then, around 9 AM this morning, to prevent patient from aspirating any vomitus, patient was put on ventilatory support so that the tracheostomy tube cuff can be inflated. He was started on PEG tube feeds with Jevity 1.5 L @ 30 mL/hr and water flush @ 6 mL/hr. In contrast to patient's vomiting, the episodes of hypotension and fevers seem to be improving. 02/27 EEG results returned today showing abnormal findings w/ diffuse slowing suggestive of a diffuse encephalopathy of metabolic, degenerative, or vascular origin as well as paroxysmal bursts of spike and wave discharges suggestive of seizure. Per neurology, no changes need to be made to patient's antiepileptic regimen (GT Keppra 1500 mg BID). The viability of obtaining a spinal MRI for the patient remains questionable due to his inability to lie flat without going into a fit of coughing. For now, patient will be continued on IV meropenem and IV ciprofloxacin (day 5 of [id number]) for suspected MDR Pseudomonas ventilator-associated pneumonia in the hopes that it will resolves his other symptoms. 03/04/25: Patient continues to have episodes of emesis with the most recent occurring early this morning at 5 AM. However, his MAP has been above 65 recently and his most recent fever of 100.9 occurred on 03/03 at 00:01 ( over 36 hours ago at the time of writing this note), possibly indicating that the treatment of his MDR Pseudomonas pneumonia with double coverage IV meropenem and IV ciprofloxacin has been favorable for the patient's overall condition (but it is still too early to tell for sure). Pertinent labs today include potassium 3.2 and magnesium 1.7, for which patient was given IV KCl 40 mg x 2 and IV MgSO4 4 mg x 1. In regards to patient's ongoing emesis, the patient's tube feed rate will be reduced from 30 mL/hr to 10 mL/hr to see if he tolerates it better; if tolerated after 12 hours, his tube feed rate will then be increased to 20 mL/hr. He has been on IV meropenem and IV ciprofloxacin now for 6 days total and the plan is to continue him on both for an additional 8 days (until 03/12) for a total of 14 days. Once patient is stabilized and the moment is appropriate, it is planned for patient to be downgraded directly to subacute with nebulized tobramycin for chronic suppressive antipseudomonal therapy. 03/05/25: Patient's episodes of coughing and apparent post-tussive emesis continued this morning and were refractory to a one-time trial dose of Reglan. Due to the above, patient has been started on PO Valium 10 mg BID with the idea that enhanced GABAergic activity will reduce the intensity of cough-induced spasms of the diaphragm and abdominal muscles that trigger vomiting and suppress any hypersensitive reflexes involved in cough / vomit pathways. Additionally, his baclofen regimen has been switched from an as needed basis to regularly scheduled dosing for further targeting of YUKI-like effects. Tube feeds were stopped after patient's most recent vomiting episode so he has been started on IV D5W maintenance fluids for now which will stop after 1 bag has been given. He was also given IV potassium phosphate 30 mEq for electrolyte repletion. On the other hand, patient is now on his 7th day of double antipseudomonal antibiotic therapy via IV meropenem and IV ciprofloxacin for treatment of MDR Pseudomonas pneumonia and continues to be afebrile with acceptable blood pressure ranges. As patient seems to be responding positively, we will continue our previously charted course of antibiotic treatment of his current infection until 03/12 with the plan to downgrade him directly to subacute with nebulized tobramycin for chronic suppressive antipseudomonal therapy when appropriate. Exam Vital Signs Temp Pulse Resp BP Pulse Ox O2 Del Method O2 Flow Rate 97.0 F 95 29 H 113/67 100 Mechanical Ventilation 10 03/05/25 08:00 03/05/25 10:20 03/05/25 10:00 03/05/25 10:00 03/05/25 10:20 03/05/25 08:00 03/03/25 07:00 FiO2 35 03/05/25 10:20 Narrative Exam General: Awake and responsive to voice by eye tracking. Nonverbal. Thin male in no acute distress with tracheostomy. HEENT: NCAT, PERRLA, EOMI, some slight horizontal nystagmus noted, MMM, anicteric conjunctivae. CVS: Regular rate and rhythm. Normal S1 and S2. No M/R/G. Resp: Tracheostomy tube in place. Tachypneic. Coarse breathing B/L. No rhonchi, rales, crackles or wheezing. Abd: PEG tube in place. Soft, non-tender, non-distended. BS+ in all 4 quadrants. MSK: Upper and lower extremities are stiff with decerebrate posturing. Neuro: Limited exam due to medical condition. Can answer yes or no via blinking signals when coached. Objective Labs 03/06/25 04:42 03/06/25 04:42 Labs: Laboratory Results - last 24 hr 03/01/25 03/05/25 15:02 05:15 WBC 10.8 H D RBC 2.98 L Hgb 8.2 L Hct 25.8 L MCV 87 MCH 27.5 MCHC 31.8 RDW Std Deviation 76.3 H Plt Count 293 D Neut % (Auto) 84 H Lymph % (Auto) 7 L [place] % (Auto) 8 Eos % (Auto) 1 Baso % (Auto) 0 Neut # (Auto) 9.0 H Lymph # (Auto) 0.7 L [place] # (Auto) 0.9 H Eos # (Auto) 0.1 Baso # (Auto) 0.0 Immature Gran # (Auto) 0.05 H Absolute Nucleated RBC 0.00 Immature Gran % 1 H Nucleated RBC % 0 Sodium 137 Potassium 3.4 Chloride 102 Carbon Dioxide 25.1 Anion Gap 10 BUN 6 L Creatinine 0.6 Estim Creat Clear Calc 135.1 eGFR > 60 BUN/Creatinine Ratio 10 L Glucose 100 Calculated Osmolality 271 L Calcium 9.7 Corrected Calcium 10.1 Phosphorus 2.0 L Magnesium 2.0 Total Bilirubin 0.2 L AST 12 ALT 10 Alkaline Phosphatase 106 Total Protein 7.7 Albumin 3.5 Globulin 4.2 H Albumin/Globulin Ratio 0.8 L Crossmatch See Detail ABG Interpretation ABG results: 02/21/25 02/25/25 02/25/25 23:11 17:38 20:17 ABG pH 7.35 7.43 ABG pCO2 32 33 ABG pO2 39 L* 169 H D ABG HCO3 18 L 22 ABG O2 Saturation 68 L 101 H ABG Base Excess -7 L -2 VBG pH 7.50 VBG pCO2 30 L VBG pO2 66 H VBG Base Excess 1 02/26/25 04:07 ABG pH 7.45 ABG pCO2 31 L ABG pO2 146 H D ABG HCO3 21 ABG O2 Saturation 100 H ABG Base Excess -3 VBG pH VBG pCO2 VBG pO2 VBG Base Excess Quality Measures Quality Measures VTE prophylaxis (Heparin sc) Assessment & Plan Assessment Current Active Medications: Generic Name Dose Route Start Last Admin Trade Name Freq PRN Reason Stop Dose Admin Albuterol/Ipratropium 3 ml 03/05/25 10:51 Albuterol/Ipratropium (Duoneb) Rt [place] 3 Ml Nebu INH 04/04/25 11:59 Q2HR PRN wheeze Atropine Sulfate 0.5 mg 02/27/25 07:30 Atropine Sulf Inj 0.1 Mg/Ml Syr 10 Ml IVP Q3MIN PRN heart rate <45 Baclofen 20 mg 03/06/25 09:00 Baclofen 10 Mg Tablet GT 04/05/25 08:59 Q6HR RADHA Protocol Dextrose 25 ml 03/01/25 22:54 Dextrose 50%-Water Inj 50 Ml Syringe IV 03/31/25 22:53 Q15MIN PRN BG 50-70 responsive npo pt Dextrose 50 ml 03/01/25 22:54 Dextrose 50%-Water Inj 50 Ml Syringe IV 03/31/25 22:53 Q15MIN PRN BG <50 OR BG <70 & pt unresponsive Diazepam 10 mg 03/05/25 10:30 03/05/25 10:34 Diazepam Inj 5 Mg/Ml Vial 2 Ml IVP 03/06/25 00:00 10 mg BID RADHA Administration Gabapentin 100 mg/ Gabapentin 400 mg 02/26/25 15:00 03/05/25 05:57 300 mg GT 03/27/25 21:59 Not Given TID RADHA Glucagon 1 mg 03/01/25 22:54 Glucagon Inj 1 Mg Vial IM Q15MIN PRN BG <70, and no IV access Guaifenesin 200 mg 03/04/25 09:40 Guaifenesin Syrup 200 Mg/10 Ml Udc GT 03/27/25 20:59 QID PRN cough or congestion Protocol Heparin Sodium (Porcine) 5,000 unit 02/22/25 09:00 03/05/25 09:10 Heparin Sod Inj 5000 Unit/Ml Vial SC 03/08/25 08:59 5,000 unit BID RADHA Administration Ciprofloxacin/Dextrose 400 mg in 200 mls @ 200 mls/hr 02/28/25 18:30 03/05/25 09:52 Cipro Ivpb IV 03/12/25 18:29 200 mls/hr Q8H RADHA Administration Meropenem 2,000 mg/ Sodium 100 mls @ 100 mls/hr 03/01/25 14:00 03/05/25 05:51 Chloride IV 03/12/25 13:59 100 mls/hr Q8HR RADHA Administration Protocol Dextrose 1,000 mls @ 100 mls/hr 03/05/25 07:15 03/05/25 07:39 D5w IV 03/05/25 17:14 100 mls/hr .Q10H RADHA Administration Potassium Phosphate 15 mmol in 250 mls @ 62.5 mls/hr 03/05/25 07:09 03/05/25 07:39 Pot Phos 15 Mmol In Ns 250 Ml IV 03/05/25 15:08 62.5 mls/hr Q4H RADHA Administration Levetiracetam 1,500 mg 03/03/25 09:00 03/05/25 09:10 Levetiracetam Inj 100 Mg/Ml Vial 5ml IVP 04/02/25 08:59 1,500 mg Q12HR RADHA Administration Metoclopramide HCl 10 mg 03/05/25 08:18 Metoclopramide Inj 5 Mg/Ml Vial 2 Ml IVP 04/04/25 13:59 Q8HR PRN Vomiting Protocol Metoprolol Tartrate 100 mg 02/23/25 09:00 03/01/25 09:09 Metoprolol Tartrate 25 Mg Tablet GT 03/25/25 08:59 Not Given On Hold: 03/01/25 09:08 BID RADHA Midodrine 10 mg 03/05/25 10:52 Midodrine 5 Mg Tablet GT 03/31/25 13:59 TID RADHA Ondansetron HCl 4 mg 02/21/25 23:14 03/05/25 05:45 Ondansetron Inj 2 Mg/Ml Inj 2 Ml IVP 03/23/25 23:13 4 mg Q6H PRN Administration NAUSEA OR VOMITING Protocol Pantoprazole Sodium 40 mg 02/22/25 09:00 03/05/25 09:09 Pantoprazole Inj 40 Mg Vial IVP 03/24/25 08:59 40 mg QDAY RADHA Administration Sodium Chloride 3 ml 02/25/25 18:51 Sodium Chloride Rt [place] 0.9% 3 Ml Nebu INH 03/27/25 18:50 PRN PRN SOLN Sodium Chloride 4 ml 02/27/25 07:09 Sodium Cl Rt [place] 3% 4 Ml Nebu (Non-Formulary) INH 03/29/25 07:06 PRN PRN SECRETIONS Thiamine HCl 100 mg 03/02/25 09:00 03/05/25 09:10 Thiamine Inj 100 Mg/Ml Vial 2 Ml IVP 04/01/25 08:59 100 mg QDAY RADHA Administration Plan Patient is a 29 year old male with past medical history of cocaine-induced cerebral vasculitis, seizures, anemia, chronic respiratory failure status post tracheostomy, status post PEG tube, and nonresponsive status with quadriparesis who was initially admitted from subacute facility on 02/21/2025 for sepsis 2/2 pneumonia. [employer] was called on 02/25 due to tachycardia, tachypnea and diaphoresis and patient was upgraded to ICU for further management. Patient's episodes of coughing and apparent post-tussive emesis continued this morning and were refractory to a one-time trial dose of Reglan. Due to the above, patient has been started on PO Valium 10 mg BID with the idea that enhanced GABAergic activity will reduce the intensity of cough-induced spasms of the diaphragm and abdominal muscles that trigger vomiting and suppress any hypersensitive reflexes involved in cough / vomit pathways. Additionally, his baclofen regimen has been switched from an as needed basis to regularly scheduled dosing for further targeting of YUKI-like effects. Tube feeds were stopped after patient's most recent vomiting episode so he has been started on IV D5W maintenance fluids for now which will stop after 1 bag has been given. He was also given IV potassium phosphate 30 mEq for electrolyte repletion. On the other hand, patient is now on his 7th day of double antipseudomonal antibiotic therapy via IV meropenem and IV ciprofloxacin for treatment of MDR Pseudomonas pneumonia and continues to be afebrile with acceptable blood pressure ranges. As patient seems to be responding positively, we will continue our previously charted course of antibiotic treatment of his current infection until 03/12 with the plan to downgrade him directly to subacute with nebulized tobramycin for chronic suppressive antipseudomonal therapy when appropriate. 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 He is also quadriplegic with spastic contractures and has reported history of seizures. Patient is status post tracheostomy and status post PEG tube (which patient is reliant on for feeding). Patient is aware and does respond to commands Dx: -02/27 EEG was abnormal with diffuse slowing suggestive of a diffuse encephalopathy of metabolic, degenerative, or vascular origin. There were also paroxysmal bursts of spike and wave discharges suggestive of seizure. Rx: -Due to continuing episodes of emesis, tube feed was discontinued for now -IV D5W maintenance fluid to supply some calories (stop after 1 bag) -GT Keppra 1500 mg twice daily. -GT gabapentin 400 mg 3 times daily. 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 (previously seen on ET secretion studies from multiple past visits) that have not been adequately treated with prior short-term antibiotic regimens Patient is s/p 7 days of IV meropenem and ciprofloxacin and his recent MAP has been greater than 65 at almost all times, supporting the working diagnosis above DDx: volume depletion 2/2 insensible losses (tachypneic expiration of water vapor through tracheostomy tube and diaphoretic sweating), ICU-provoked adrenal insufficiency, cardiogenic shock, central autonomic dysregulation (history of cerebral vasculitis and quadriparesis) Rx: -Due to continuing episodes of emesis, tube feed was discontinued for now -IV D5W maintenance fluid to supply some calories (stop after 1 bag) -GT midodrine 10 mg TID for hypotension -Double anti-pseudomonal antibiotic coverage as detailed in Respiratory and ID sections (for treatment of any component of patient's hypotension that is due to septic response) RRx: -Patient's BP has seemed better controlled as of late (MAP is usually above 65) Respiratory: #Multifocal pneumonia, likely Pseudomonas #Chronic mucous plugging It was suspected that patient's ongoing febrile episodes and hypotension despite broad-coverage antibiotic regimen with IV meropenem (and previously Zosyn, vancomycin, and cefepime) was due to 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 (previously seen on ET secretion studies from multiple past visits) that has now developed into Pseudomonas pneumonia with sepsis Dx: -Comparison of 10/31/24 and 02/26/25 chest CTAs shows similar areas of pneumonia, suggesting chronic colonization of the patient's lungs with possibly multidrug- resistant strains of Pseudomonas (previously seen on ET secretion studies from multiple past visits) that have not been adequately treated with recent short- term antibiotic stints and have now developed into Pseudomonas pneumonia -02/25 sputum culture grew Proteus mirablis sensitive to meropenem but not ciprofloxacin or levofloxacin -02/22 sputum culture grew Pseudomonas aeruginosa, ESBL Klebsiella pneumoniae, and Proteus mirablis (all sensitive to ciprofloxacin and aztreonam only) -02/10 sputum culture grew Pseudomonas resistant to meropenem, Klebsiella indeterminant for Zosyn and Proteus resistant to cefepime and ciprofloxacin ?09/21 sputum culture grew Klebsiella and Proteus sensitive to cefepime, meropenem and ciprofloxacin. -02/25 BCx both (-) -12/20 urine grew Pseudomonas resistant to meropenem and cefepime -02/28 echocardiogram showed no signs of endocarditis or vegetations -Thoracic and lumbar spinal MRI (to evaluate for possible epidural abscess) not viable at this time due to patient's inability to lie flat without moving for an extended period of time Rx: -Ceftriaxone 1 g IV daily [02/22 - 02/22] -Cefepime 2 g IV daily [02/22 - 02/25] -Vancomycin IV [02/21 - 02/22, 02/23 - 02/27 intermittent dosing based on trough] -Zosyn 3.375 g IV Q8 hourly [02/25 - 02/27] -IV meropenem 2000 mg q8HR (started 02/27--), day 7 of 14 day course -IV ciprofloxacin 400 mg q8HR (started 02/27--), day 7 of 14 day course -Start nebulized tobramycin once discharged for chronic suppressive antipseudomonal therapy -Chest physiotherapy twice daily ordered -INH Duoneb 3 mL q6HRRT -INH sodium chloride 4 mL prn for secretions RRx: -Initially in September patient's previous sputum culture on file grew Klebsiella and Proteus pansensitive to most tested antibiotics including meropenem, ciprofloxacin and Zosyn. Over the course of 5 months patient rapidly developed multidrug-resistant organisms. ? Patient's sputum culture from 02/22 grew Pseudomonas, Klebsiella and Proteus. Pseudomonas and Proteus was sensitive to cefepime however Klebsiella was resistant. All tested organisms were sensitive to ciprofloxacin however. During the time period from 02/22 - 02/25 patient was on cefepime, ceftriaxone and vancomycin. Therefore not effective coverage for ESBL Klebsiella which was rapidly evolving. Also patient's sensitivity report was included which showed Pseudomonas was sensitive to ceftriaxone. This was very perplexing and further investigation are being conducted. -Despite trials of many antibiotics including cefepime, Zosyn, vancomycin, and now meropenem, patient continued to spike fevers. -Patient has been receiving double anti-pseudomonal coverage and is no longer having any episodes of fever or significant hypotension Gastrointestinal: #Nonbloody emesis, refractory to antiemetics Possibly post-tussive in nature (patient has reportedly had coughing fits recently) On 03/01 physical exam, abdomen was soft and non-distended; patient used blinking signals to convey that he denied abdominal tenderness to palpation in all quadrants Ongoing, usually occurring earlier in the day, refractory to IV Zofran and IV Reglan DDx: post-tussive emesis, sepsis-related emesis, electrolyte derangement-related emesis, viral gastroenteritis Dx: -Patient threw up again today despite reducing tube feeds to 10 mL/hr Rx: -Due to ongoing episodes of emesis, tube feeds have been discontinued for now -Started on PO Valium 10 mg BID (1 day duration) -IV Zofran 4 mg q6HR prn for nausea/vomiting -IV Reglan 10 mg q8HR prn for nausea/vomiting -Replete/correct electrolytes as appropriate RRx: -Patient's main issue has been continuing emesis that is refractory to Zofran and Reglan and does not seem to be improving; we are now trialling Valium to see if it can help reduce these episodes Renal: No active issues Endocrine: No active issues Infectious Disease: #Fever of unknown origin, intermittent and refractory to antibiotics (improving) An ongoing issue for the patient has been repeated febrile episodes despite broad-spectrum antibiotic coverage Patient spiked a fever of 101.6 in the evening of 02/26 while actively receiving IV meropenem Currently suspect that etiology is due to 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 (previously seen on ET secretion studies from multiple past visits) that has now developed into Pseudomonas pneumonia with sepsis However, patient has been receiving treatment for Pseudomonas pneumonia and has not had a fever since 03/03, 00:01 (over 60 hours ago) DDx: other occult infectious etiology (epidural abscess, endocarditis, chronic meningitis, disseminated fungal infection), rheumatologic etiology (patient has history of 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 which is more likely a [id number] ANCA-associated vasculitis), 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 -BCx (-) -CRP and ESR elevated at 10.0 and 71, respectively -ANCA Screen, MPO & PR3, w/ Reflex Titer ordered, results pending -HCV antibody negative -HIV (1&2) rapid antibody screen negative -No erythema nodosum seen on physical exam Rx: -IV meropenem 2000 mg q8HR (started 02/27--), day 7 of 14 day course -IV ciprofloxacin 400 mg q8HR (started 02/27--), day 7 of 14 day course -Start nebulized tobramycin once discharged for chronic suppressive antipseudomonal therapy RRx: -Despite trials of many antibiotics including cefepime, Zosyn, vancomycin, and now meropenem, patient had continued to spike fevers. Since current working diagnosis is that this is 2/2 MDR Pseudomonas pneumonia, we will see if the double anti-pseudomonal coverage solves this issue while actively following up on other studies like spinal MRI, echocardiogram, or lumbar tap to work-up other possible occult sources of infection. Rheumatologic studies may also be pursued but etiologies of that nature are currently lower on the list of differentials. -Most recent fever of 100.9 occurred on 03/03 at 00:01 (over 60 hours ago at the time of writing this note), possibly indicating that the treatment of his MDR Pseudomonas pneumonia with double coverage IV meropenem and IV ciprofloxacin has been favorable for the patient's overall condition Hematology/Oncology: #Leukocytosis WBC elevation to 10.8 from 7.3 yesterday, afebrile Likely hemoconcentration from patient's continued bouts of emesis with concomitant rises of Hgb to 8.2 from 7.7 and platelet count to 293 from 257 RRx: -Monitor for infectious signs and CBC #Chronic normocytic anemia Hgb has hovered between 8-10 in the past few days Hgb 8.2 from 7.7 yesterday Rx: -Monitor CBC, transfuse if Hgb<7 RRx: -Continue to monitor CBC Lines: L subclavian central line Diet: none (will consider starting TPN) DVT prophylaxis: Heparin. GI prophylaxis: Protonix. Code status: DNR. Disposition: IV antibiotics, BP monitoring Plan of care discussed with Attending Dr. Madison Lakhani, DO Internal Medicine, PGY-1
[2025-03-05] MEDS: GABAPENTIN 100 MG, GABAPENTIN 300 MG 400 MG GT ×2 (13:38→21:26)
[2025-03-05] MEDS: MIDODRINE 5 MG TABLET 10 MG GT (13:39)
--- NOTE | 2025-03-05 14:33 | PD.RESPRO ---
Documentation for date of: 03/05/25 Subjective Subjective Interval history: Patient examined bedside today. No acute overnight events. Patient continues to vomit at this time in addition with Reglan and Valium. Patient on ventilation. No other complaints at this time Exam Vital Signs Temp Pulse Resp BP Pulse Ox O2 Del Method O2 Flow Rate 97.1 F 103 H 31 H 109/66 99 Mechanical Ventilation 10 03/05/25 12:00 03/05/25 14:00 03/05/25 14:00 03/05/25 14:00 03/05/25 14:00 03/05/25 12:00 03/03/25 07:00 FiO2 35 03/05/25 13:32 Narrative Exam General: Awake and responsive to voice by eye tracking. Nonverbal. Thin male in no acute distress with tracheostomy. HEENT: NCAT, PERRLA, EOMI, some slight horizontal nystagmus noted, MMM, anicteric conjunctivae. CVS: Regular rate and rhythm. Normal S1 and S2. No M/R/G. Resp: Tracheostomy tube in place. Tachypneic. Coarse breathing B/L. No rhonchi, rales, crackles or wheezing. Abd: PEG tube in place. Soft, non-tender, non-distended. BS+ in all 4 quadrants. MSK: Upper and lower extremities are stiff with decerebrate posturing. Neuro: Limited exam due to medical condition. Can answer yes or no via blinking signals when coached. Objective Labs 03/06/25 04:42 03/06/25 04:42 Labs: Laboratory Results - last 24 hr 03/01/25 03/05/25 15:02 05:15 WBC 10.8 H D RBC 2.98 L Hgb 8.2 L Hct 25.8 L MCV 87 MCH 27.5 MCHC 31.8 RDW Std Deviation 76.3 H Plt Count 293 D Neut % (Auto) 84 H Lymph % (Auto) 7 L [place] % (Auto) 8 Eos % (Auto) 1 Baso % (Auto) 0 Neut # (Auto) 9.0 H Lymph # (Auto) 0.7 L [place] # (Auto) 0.9 H Eos # (Auto) 0.1 Baso # (Auto) 0.0 Immature Gran # (Auto) 0.05 H Absolute Nucleated RBC 0.00 Immature Gran % 1 H Nucleated RBC % 0 Sodium 137 Potassium 3.4 Chloride 102 Carbon Dioxide 25.1 Anion Gap 10 BUN 6 L Creatinine 0.6 Estim Creat Clear Calc 135.1 eGFR > 60 BUN/Creatinine Ratio 10 L Glucose 100 Calculated Osmolality 271 L Calcium 9.7 Corrected Calcium 10.1 Phosphorus 2.0 L Magnesium 2.0 Total Bilirubin 0.2 L AST 12 ALT 10 Alkaline Phosphatase 106 Total Protein 7.7 Albumin 3.5 Globulin 4.2 H Albumin/Globulin Ratio 0.8 L Crossmatch See Detail ABG Interpretation ABG results: 02/21/25 02/25/25 02/25/25 23:11 17:38 20:17 ABG pH 7.35 7.43 ABG pCO2 32 33 ABG pO2 39 L* 169 H D ABG HCO3 18 L 22 ABG O2 Saturation 68 L 101 H ABG Base Excess -7 L -2 VBG pH 7.50 VBG pCO2 30 L VBG pO2 66 H VBG Base Excess 1 02/26/25 04:07 ABG pH 7.45 ABG pCO2 31 L ABG pO2 146 H D ABG HCO3 21 ABG O2 Saturation 100 H ABG Base Excess -3 VBG pH VBG pCO2 VBG pO2 VBG Base Excess Quality Measures Quality Measures VTE prophylaxis (Heparin sc) Assessment & Plan Assessment Current Active Medications: Generic Name Dose Route Start Last Admin Trade Name Freq PRN Reason Stop Dose Admin Albuterol/Ipratropium 3 ml 03/05/25 10:51 Albuterol/Ipratropium (Duoneb) Rt [place] 3 Ml Nebu INH 04/04/25 11:59 Q2HR PRN wheeze Atropine Sulfate 0.5 mg 02/27/25 07:30 Atropine Sulf Inj 0.1 Mg/Ml Syr 10 Ml IVP Q3MIN PRN heart rate <45 Baclofen 20 mg 03/06/25 09:00 Baclofen 10 Mg Tablet GT 04/05/25 08:59 Q6HR RADHA Protocol Dextrose 25 ml 03/01/25 22:54 Dextrose 50%-Water Inj 50 Ml Syringe IV 03/31/25 22:53 Q15MIN PRN BG 50-70 responsive npo pt Dextrose 50 ml 03/01/25 22:54 Dextrose 50%-Water Inj 50 Ml Syringe IV 03/31/25 22:53 Q15MIN PRN BG <50 OR BG <70 & pt unresponsive Diazepam 10 mg 03/05/25 10:30 03/05/25 10:34 Diazepam Inj 5 Mg/Ml Vial 2 Ml IVP 03/06/25 00:00 10 mg BID RADHA Administration Gabapentin 100 mg/ Gabapentin 400 mg 02/26/25 15:00 03/05/25 13:38 300 mg GT 03/27/25 21:59 400 mg TID RADHA Administration Glucagon 1 mg 03/01/25 22:54 Glucagon Inj 1 Mg Vial IM Q15MIN PRN BG <70, and no IV access Guaifenesin 200 mg 03/04/25 09:40 Guaifenesin Syrup 200 Mg/10 Ml Udc GT 03/27/25 20:59 QID PRN cough or congestion Protocol Heparin Sodium (Porcine) 5,000 unit 02/22/25 09:00 03/05/25 09:10 Heparin Sod Inj 5000 Unit/Ml Vial SC 03/08/25 08:59 5,000 unit BID RADHA Administration Ciprofloxacin/Dextrose 400 mg in 200 mls @ 200 mls/hr 02/28/25 18:30 03/05/25 09:52 Cipro Ivpb IV 03/12/25 18:29 200 mls/hr Q8H RADHA Administration Meropenem 2,000 mg/ Sodium 100 mls @ 100 mls/hr 03/01/25 14:00 03/05/25 13:39 Chloride IV 03/12/25 13:59 100 mls/hr Q8HR RADHA Administration Protocol Dextrose 1,000 mls @ 100 mls/hr 03/05/25 07:15 03/05/25 07:39 D5w IV 03/05/25 17:14 100 mls/hr .Q10H RADHA Administration Potassium Phosphate 15 mmol in 250 mls @ 62.5 mls/hr 03/05/25 07:09 03/05/25 11:54 Pot Phos 15 Mmol In Ns 250 Ml IV 03/05/25 15:08 62.5 mls/hr Q4H RADHA Administration Insulin Human Lispro 0 unit 03/05/25 14:30 Insulin Lispro (Admelog) 1 Unit/0.01 Ml Unit SC 04/04/25 14:29 Q6HR RADHA Protocol Levetiracetam 1,500 mg 03/03/25 09:00 03/05/25 09:10 Levetiracetam Inj 100 Mg/Ml Vial 5ml IVP 04/02/25 08:59 1,500 mg Q12HR RADHA Administration Metoclopramide HCl 10 mg 03/05/25 08:18 Metoclopramide Inj 5 Mg/Ml Vial 2 Ml IVP 04/04/25 13:59 Q8HR PRN Vomiting Protocol Metoprolol Tartrate 100 mg 02/23/25 09:00 03/01/25 09:09 Metoprolol Tartrate 25 Mg Tablet GT 03/25/25 08:59 Not Given On Hold: 03/01/25 09:08 BID RADHA Midodrine 10 mg 03/05/25 10:52 03/05/25 13:39 Midodrine 5 Mg Tablet GT 03/31/25 13:59 10 mg TID RADHA Administration Ondansetron HCl 4 mg 02/21/25 23:14 03/05/25 11:55 Ondansetron Inj 2 Mg/Ml Inj 2 Ml IVP 03/23/25 23:13 4 mg Q6H PRN Administration NAUSEA OR VOMITING Protocol Pantoprazole Sodium 40 mg 02/22/25 09:00 03/05/25 09:09 Pantoprazole Inj 40 Mg Vial IVP 03/24/25 08:59 40 mg QDAY RADHA Administration Sodium Chloride 3 ml 02/25/25 18:51 Sodium Chloride Rt [place] 0.9% 3 Ml Nebu INH 03/27/25 18:50 PRN PRN SOLN Sodium Chloride 4 ml 02/27/25 07:09 Sodium Cl Rt [place] 3% 4 Ml Nebu (Non-Formulary) INH 03/29/25 07:06 PRN PRN SECRETIONS Thiamine HCl 100 mg 03/02/25 09:00 03/05/25 09:10 Thiamine Inj 100 Mg/Ml Vial 2 Ml IVP 04/01/25 08:59 100 mg QDAY RADHA Administration Plan Assessment Patient is a 29 year old male with past medical history of cocaine-induced cerebral vasculitis, seizures, anemia, chronic respiratory failure status post tracheostomy, status post PEG tube, and nonresponsive status with quadriparesis who was initially admitted from subacute facility on 02/21/2025 for sepsis 2/2 pneumonia. [employer] was called on 02/25 due to tachycardia, tachypnea and diaphoresis and patient was upgraded to ICU for further management. 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 He is also quadriplegic with spastic contractures and has reported history of seizures. Patient is status post tracheostomy and status post PEG tube (which patient is reliant on for feeding). Patient is aware and does respond to commands EEG shows diffuse slowing and paroxysmal bursts of spike and waves discharges Will decrease Keppra as may be culprit of N/V Plan: ? Continue tube feeds at slow rate ? GT Keppra 1000 mg twice daily ? GT gabapentin 400 mg 3 times daily ? GT Baclofen 20 mg every 6 hours as needed ? Consider IV Reglan for recurrent vomiting #Hypotension, refractory (improving) #?Septic shock #Multifocal pneumonia, likely Pseudomonas #Chronic mucous plugging #Nonbloody emesis #Fever of unknown origin, intermittent and refractory to antibiotics (improving) #Chronic normocytic anemia Patient seen and care discussed with my attending physician, Dr. Grant Matias, PGY-2 Attending Provider Attestation/Addendum I have seen and examined the patient at the bedside and I agreed with the resident's findings, assessment and plan of care. No breakthrough seizures reported. Tolerating tube feeding well without any significant residuals on Reglan as needed and the low dose of Keppra. Will continue to monitor him closely
--- NOTE | 2025-03-05 14:41 | PC.SS ---
Update: Patient Trach/PEG. Patient transitioned to ventilator due to vomiting episodes. Feeds on hold, possible transition to TPN. Patient receiving IV antibiotics. Not requiring pressor support. Patient is afebrile. Blood cultures pending. Langston catheter in place. Producing urine.
--- NOTE | 2025-03-05 14:51 | PC.SS ---
PASSR completed. Patient meets Level I criteria. No PASSR follow up required.
--- NOTE | 2025-03-05 15:08 | PC.DIETICIAN ---
Nutrition recommendations: CPN: D20% AA5% at 70 ml/hr with 500 ml 20% lipid 3 times a week (Mon-Wed-Fri). Start at 35 ml/hr for 24 hrs, then advance to goal of 70 ml/hr. 1680 ml volume, 84 g AA, 336 g dextrose, 1907 total calories, NPC 1571. GIR=3.9 / LIR=0.7
[2025-03-05 15:18] LABS: Triglycerides 80 mg/dL (30-150)
[2025-03-05] MEDS: POT CHL ADDITIVE IV (19:16)
[2025-03-05] MEDS: MAGNESIUM SULF IV (19:16)
[2025-03-05] MEDS: POTASSIUM PHOS IV (19:16)
[2025-03-05] MEDS: [UNRECOGNIZED DRUG - OTHER] IV (19:16)
[2025-03-05] MEDS: levETIRAcetam INJ 100 MG/ML VIAL 5ML 1000 MG IVP (21:27)
[2025-03-05 22:52] LABS: Albumin, Serum 3.1 gm/dL (3.5-5.0); Anion Gap 9 (7-16); BUN/Creatinine Ratio 12 Ratio (12-20); Blood Urea Nitrogen 6 mg/dL (9-23); Calcium 8.9 mg/dL (8.3-10.6); Calcium (Corrected) 9.6 mg/dL (8.5-10.1); Carbon Dioxide 26.0 mMol/L (20.0-31.0); Chloride 104 mMol/L (98-107); Creatinine (Component) 0.5 mg/dL (0.6-1.3); Estimated Creatinine Clearance 161.2 mL/min (>60); Glucose 91 mg/dL (74-106); Osmolality,Calculated 275 (275-295); Phosphorous 2.2 mg/dL (2.4-5.1); Potassium 3.4 mMol/L (3.4-5.1); Sodium 139 mMol/L (136-145); eGFR > 60 See Note
[2025-03-06] VITALS (20 sets, daily range): BP systolic 96–122; BP diastolic 56–71; PULSE 82–106; RESP 7–35; TEMP 36.5–36.6; O2SAT 98–99
[2025-03-06] MEDS: CIPROFLOXACIN/D5w 400 MG IVPB 400 MG/200 ML BAG 200 MG IV ×2 (02:20→09:31)
[2025-03-06] MEDS: GABAPENTIN 100 MG, GABAPENTIN 300 MG 400 MG GT ×2 (05:20→13:40)
[2025-03-06] MEDS: MEROPENEM INJ 2,000 MG in SODIUM CHLORIDE 0.9% 100 ML 100 MG IV (05:25)
[2025-03-06 06:04] LABS: Basophils # (Auto) 0.0 Thou/mm3 (0.0-0.2); Basophils % (Auto) 0 % (0-2.5); Eosinophils # (Auto) 0.3 Thou/mm3 (0.0-0.5); Eosinophils % (Auto) 4 % (0-10); Hematocrit 23.8 % (41.0-53.0); Immature Granulocytes Auto 0.05 Thou/mm3 (0.00-0.00); Lymphocytes # (Auto) 1.2 Thou/mm3 (1.0-4.8); Lymphocytes % (Auto) 17 % (10-50); Mean Corpuscular HGB Conc 31.5 g/dl (31.0-37.0); Mean Corpuscular Hemoglobin 27.2 pg (25.0-35.0); Mean Corpuscular Volume 86 fL (80-100); Monocytes # (Auto) 0.8 Thou/mm3 (0.0-0.8); Monocytes % (Auto) 11 % (0-12); Neutrophils # (Auto) 5.1 Thou/mm3 (1.8-7.7); Neutrophils % (Auto) 68 % (37-80); Nucleated Red Blood Cell # 0.00 Thou/mm3 (0.00-0.00); Nucleated Red Blood Cell % 0 /100 WBC (0); Platelet Count 279 Thou/mm3 (140-440); RDW Standard Deviation 75.0 fL (35.1-43.9); Red Blood Count 2.76 Miln/mm3 (4.50-5.90); White Blood Count 7.5 Thou/mm3 (3.8-10.6)
[2025-03-06 06:05] LABS: Hemoglobin 7.5 g/dL (13.5-16.0)
[2025-03-06 06:41] LABS: Alanine Aminotransferase 7 U/L (10-49); Albumin, Serum 3.2 gm/dL (3.5-5.0); Albumin/Globulin Ratio 0.9 (1.2-2.2); Alkaline Phosphatase 95 U/L (46-116); Anion Gap 8 (7-16); Aspartate Amino Transferase 10 U/L (0-34); BUN/Creatinine Ratio 10 Ratio (12-20); Bilirubin,Total 0.2 mg/dL (0.3-1.2); Blood Urea Nitrogen < 5 mg/dL (9-23); Calcium 9.2 mg/dL (8.3-10.6); Calcium (Corrected) 9.8 mg/dL (8.5-10.1); Carbon Dioxide 26.7 mMol/L (20.0-31.0); Chloride 105 mMol/L (98-107); Creatinine (Component) 0.5 mg/dL (0.6-1.3); Estimated Creatinine Clearance 156.5 mL/min (>60); Globulin 3.5 gm/dL (2.3-3.5); Glucose 86 mg/dL (74-106); Magnesium 1.7 mg/dL (1.6-2.6); Osmolality,Calculated 275 (275-295); Phosphorous 2.1 mg/dL (2.4-5.1); Potassium 3.6 mMol/L (3.4-5.1); Sodium 140 mMol/L (136-145); Total Protein 6.7 gm/dL (5.7-8.2); eGFR > 60 See Note
--- NOTE | 2025-03-06 06:43 | ESPR_ITS ---
Subjective Subjective Interval history: no steroids. only merrem added 03/01 already had a week of that rx and did not improve. it is 03/06 today. merrem stopped by me earlier and restarted by primary team. Exam Vital Signs Temp Pulse Resp BP Pulse Ox O2 Del Method O2 Flow Rate 97.7 F 85 29 H 99/60 99 Mechanical Ventilation 10 03/06/25 04:00 03/06/25 06:00 03/06/25 06:00 03/06/25 06:00 03/06/25 06:00 03/06/25 04:00 03/03/25 07:00 FiO2 35 03/06/25 04:00 Narrative Exam fever less. fevers can vary esr/crp higher than expected. cxr neg t ,y eye am not sure what primary team is thinking here notes reviewed. see that merrem restarted end of last week per orders Objective - Internal Medicine Labs 03/06/25 04:42 03/06/25 04:42 Labs: Laboratory Results - last 24 hr 03/05/25 03/05/25 03/06/25 05:15 22:23 04:42 WBC 7.5 RBC 2.76 L Hgb 7.5 L Hct 23.8 L MCV 86 MCH 27.2 MCHC 31.5 RDW Std Deviation 75.0 H Plt Count 279 Neut % (Auto) 68 Lymph % (Auto) 17 [place] % (Auto) 11 Eos % (Auto) 4 Baso % (Auto) 0 Neut # (Auto) 5.1 Lymph # (Auto) 1.2 [place] # (Auto) 0.8 Eos # (Auto) 0.3 Baso # (Auto) 0.0 Immature Gran # (Auto) 0.05 H Absolute Nucleated RBC 0.00 Immature Gran % 1 H Nucleated RBC % 0 Sodium 139 140 Potassium 3.4 3.6 Chloride 104 105 Carbon Dioxide 26.0 26.7 Anion Gap 9 8 BUN 6 L < 5 L Creatinine 0.5 L 0.5 L Estim Creat Clear Calc 161.2 156.5 eGFR > 60 > 60 BUN/Creatinine Ratio 12 10 L Glucose 91 86 Calculated Osmolality 275 275 Calcium 8.9 9.2 Corrected Calcium 9.6 9.8 Phosphorus 2.2 L 2.1 L Magnesium 1.7 Total Bilirubin 0.2 L AST 10 ALT 7 L Alkaline Phosphatase 95 Total Protein 6.7 Albumin 3.1 L 3.2 L Globulin 3.5 Albumin/Globulin Ratio 0.9 L Triglycerides 80 ABG Interpretation ABG results: 02/21/25 02/25/25 02/25/25 23:11 17:38 20:17 ABG pH 7.35 7.43 ABG pCO2 32 33 ABG pO2 39 L* 169 H D ABG HCO3 18 L 22 ABG O2 Saturation 68 L 101 H ABG Base Excess -7 L -2 VBG pH 7.50 VBG pCO2 30 L VBG pO2 66 H VBG Base Excess 1 02/26/25 04:07 ABG pH 7.45 ABG pCO2 31 L ABG pO2 146 H D ABG HCO3 21 ABG O2 Saturation 100 H ABG Base Excess -3 VBG pH VBG pCO2 VBG pO2 VBG Base Excess Assessment & Plan A&P Narrative off all abx. chest imaging looks neg to me. prior rx noted.ct losk more like atelctasis to me and not pneumonia and pt already had >7d of merrem fuo eval with neg abd imaging esr and crp high not all fevers are infectious pt likely has vasculitis of some sort. ok to try steroids as abx do not seem to have worked. agree with dnr status. stopped the merrem again for now.and cipro too as value of abx seems low. ok to move back to subacute but if fevers back, steroids likely the answer but icu likely to try more abx. prognosis guarded. please stop the incessant cx. they are not useful. Time Spent With Patient Time: Total time spent is greater than 50% in coordination of care (as documented) at patient's floor/unit and/or counseling patient:
[2025-03-06] MEDS: HEPARIN SOD INJ 5000 UNIT/ML VIAL SC (09:04)
[2025-03-06] MEDS: Magnesium Sulfate 4 GM Ivpb 4 GM/50 ML BAG IV (09:05)
[2025-03-06] MEDS: BACLOFEN 10 MG TABLET 20 MG GT ×2 (09:05→11:50)
[2025-03-06] MEDS: POT PHOS 15 mMol in NS 250 ML 15 MMOL/250 ML BAG 62.5 MMOL IV (09:05)
[2025-03-06] MEDS: THIAMINE INJ 100 MG/ML VIAL 2 ML IVP (09:05)
[2025-03-06] MEDS: levETIRAcetam INJ 100 MG/ML VIAL 5ML 1000 MG IVP (09:06)
--- NOTE | 2025-03-06 11:31 | PD.RESPRO ---
Documentation for date of: 03/06/25 Subjective Subjective Interval history: Patient examined at bedside today. No acute overnight events. Patient has not had any episodes of vomiting at this time. Using Reglan as needed at this time. No other complaints this time. Exam Vital Signs Temp Pulse Resp BP Pulse Ox O2 Del Method O2 Flow Rate 97.8 F 97 29 H 105/59 L 99 Mechanical Ventilation 10 03/06/25 08:00 03/06/25 10:34 03/06/25 10:00 03/06/25 10:34 03/06/25 10:34 03/06/25 08:00 03/03/25 07:00 FiO2 35 03/06/25 10:34 Narrative Exam General: Awake and responsive to voice by eye tracking. Nonverbal. Thin male in no acute distress with tracheostomy. HEENT: NCAT, PERRLA, EOMI, some slight horizontal nystagmus noted, MMM, anicteric conjunctivae. CVS: Regular rate and rhythm. Normal S1 and S2. No M/R/G. Resp: Tracheostomy tube in place. Tachypneic. Coarse breathing B/L. No rhonchi, rales, crackles or wheezing. Abd: PEG tube in place. Soft, non-tender, non-distended. BS+ in all 4 quadrants. MSK: Upper and lower extremities are stiff with decerebrate posturing. Neuro: Limited exam due to medical condition. Can answer yes or no via blinking signals when coached. Objective Labs 03/06/25 04:42 03/06/25 04:42 Labs: Laboratory Results - last 24 hr 03/05/25 03/05/25 03/06/25 05:15 22:23 04:42 WBC 7.5 RBC 2.76 L Hgb 7.5 L Hct 23.8 L MCV 86 MCH 27.2 MCHC 31.5 RDW Std Deviation 75.0 H Plt Count 279 Neut % (Auto) 68 Lymph % (Auto) 17 Stanley % (Auto) 11 Eos % (Auto) 4 Baso % (Auto) 0 Neut # (Auto) 5.1 Lymph # (Auto) 1.2 Stanley # (Auto) 0.8 Eos # (Auto) 0.3 Baso # (Auto) 0.0 Immature Gran # (Auto) 0.05 H Absolute Nucleated RBC 0.00 Immature Gran % 1 H Nucleated RBC % 0 Sodium 139 140 Potassium 3.4 3.6 Chloride 104 105 Carbon Dioxide 26.0 26.7 Anion Gap 9 8 BUN 6 L < 5 L Creatinine 0.5 L 0.5 L Estim Creat Clear Calc 161.2 156.5 eGFR > 60 > 60 BUN/Creatinine Ratio 12 10 L Glucose 91 86 Calculated Osmolality 275 275 Calcium 8.9 9.2 Corrected Calcium 9.6 9.8 Phosphorus 2.2 L 2.1 L Magnesium 1.7 Total Bilirubin 0.2 L AST 10 ALT 7 L Alkaline Phosphatase 95 Total Protein 6.7 Albumin 3.1 L 3.2 L Globulin 3.5 Albumin/Globulin Ratio 0.9 L Triglycerides 80 ABG Interpretation ABG results: 02/21/25 02/25/25 02/25/25 23:11 17:38 20:17 ABG pH 7.35 7.43 ABG pCO2 32 33 ABG pO2 39 L* 169 H D ABG HCO3 18 L 22 ABG O2 Saturation 68 L 101 H ABG Base Excess -7 L -2 VBG pH 7.50 VBG pCO2 30 L VBG pO2 66 H VBG Base Excess 1 02/26/25 04:07 ABG pH 7.45 ABG pCO2 31 L ABG pO2 146 H D ABG HCO3 21 ABG O2 Saturation 100 H ABG Base Excess -3 VBG pH VBG pCO2 VBG pO2 VBG Base Excess Quality Measures Quality Measures VTE prophylaxis (Heparin sc) Assessment & Plan Assessment Current Active Medications: Generic Name Dose Route Start Last Admin Trade Name Freq PRN Reason Stop Dose Admin Albuterol/Ipratropium 3 ml 03/05/25 10:51 Albuterol/Ipratropium (Duoneb) Rt [place] 3 Ml Nebu INH 04/04/25 11:59 Q2HR PRN wheeze Atropine Sulfate 0.5 mg 02/27/25 07:30 Atropine Sulf Inj 0.1 Mg/Ml Syr 10 Ml IVP Q3MIN PRN heart rate <45 Baclofen 20 mg 03/06/25 09:00 03/06/25 09:05 Baclofen 10 Mg Tablet GT 04/05/25 08:59 20 mg Q6HR RADHA Administration Protocol Dextrose 25 ml 03/01/25 22:54 Dextrose 50%-Water Inj 50 Ml Syringe IV 03/31/25 22:53 Q15MIN PRN BG 50-70 responsive npo pt Dextrose 50 ml 03/01/25 22:54 Dextrose 50%-Water Inj 50 Ml Syringe IV 03/31/25 22:53 Q15MIN PRN BG <50 OR BG <70 & pt unresponsive Gabapentin 100 mg/ Gabapentin 400 mg 02/26/25 15:00 03/06/25 05:20 300 mg GT 03/27/25 21:59 400 mg TID RADHA Administration Glucagon 1 mg 03/01/25 22:54 Glucagon Inj 1 Mg Vial IM Q15MIN PRN BG <70, and no IV access Guaifenesin 200 mg 03/04/25 09:40 Guaifenesin Syrup 200 Mg/10 Ml Udc GT 03/27/25 20:59 QID PRN cough or congestion Protocol Heparin Sodium (Porcine) 5,000 unit 02/22/25 09:00 03/06/25 09:04 Heparin Sod Inj 5000 Unit/Ml Vial SC 03/08/25 08:59 5,000 unit BID RADHA Administration Ciprofloxacin/Dextrose 400 mg in 200 mls @ 200 mls/hr 02/28/25 18:30 03/06/25 09:31 Cipro Ivpb IV 03/12/25 18:29 200 mls/hr Q8H RADHA Administration Fat Emulsion Intravenous 500 mls @ 32 mls/hr 03/06/25 18:00 Intralipid 20% Iv IV 04/05/25 17:59 MoWeFr@1800 RADHA Potassium Chloride 40 meq/ 1,039 mls @ 35 mls/hr 03/05/25 18:00 03/05/25 19:16 Potassium Phosphate 15 mmol/ IV 03/06/25 17:59 35 mls/hr Magnesium Sulfate 2 gm/ QDAY@1800 [facility] Administration Multivitamins/Minerals 10 ml/ Amino Acids Meropenem 1,000 mg/ Sodium 50 mls @ 100 mls/hr 03/06/25 14:00 Chloride IV 03/13/25 13:59 Q8HR [facility] Insulin Human Lispro 0 unit 03/05/25 14:30 03/06/25 05:23 Insulin Lispro (Admelog) 1 Unit/0.01 Ml Unit SC 04/04/25 14:29 Not Given Q6HR [facility] Protocol Levetiracetam 1,000 mg 03/05/25 21:00 03/06/25 09:06 Levetiracetam Inj 100 Mg/Ml Vial 5ml IVP 04/04/25 20:59 1,000 mg Q12HR RADHA Administration Metoclopramide HCl 10 mg 03/05/25 08:18 Metoclopramide Inj 5 Mg/Ml Vial 2 Ml IVP 04/04/25 13:59 Q8HR PRN Vomiting Protocol Metoprolol Tartrate 100 mg 02/23/25 09:00 03/01/25 09:09 Metoprolol Tartrate 25 Mg Tablet GT 03/25/25 08:59 Not Given On Hold: 03/01/25 09:08 BID RADHA Midodrine 10 mg 03/05/25 10:52 03/06/25 05:17 Midodrine 5 Mg Tablet GT 03/31/25 13:59 Not Given TID RADHA Ondansetron HCl 4 mg 02/21/25 23:14 03/05/25 11:55 Ondansetron Inj 2 Mg/Ml Inj 2 Ml IVP 03/23/25 23:13 4 mg Q6H PRN Administration NAUSEA OR VOMITING Protocol Pantoprazole Sodium 40 mg 02/22/25 09:00 03/06/25 09:06 Pantoprazole Inj 40 Mg Vial IVP 03/24/25 08:59 40 mg QDAY RADHA Administration Sodium Chloride 3 ml 02/25/25 18:51 Sodium Chloride Rt [place] 0.9% 3 Ml Nebu INH 03/27/25 18:50 PRN PRN SOLN Sodium Chloride 4 ml 02/27/25 07:09 Sodium Cl Rt [place] 3% 4 Ml Nebu (Non-Formulary) INH 03/29/25 07:06 PRN PRN SECRETIONS Thiamine HCl 100 mg 03/02/25 09:00 03/06/25 09:05 Thiamine Inj 100 Mg/Ml Vial 2 Ml IVP 04/01/25 08:59 100 mg QDAY RADHA Administration Plan Assessment Patient is a 29 year old male with past medical history of cocaine-induced cerebral vasculitis, seizures, anemia, chronic respiratory failure status post tracheostomy, status post PEG tube, and nonresponsive status with quadriparesis who was initially admitted from subacute facility on 02/21/2025 for sepsis 2/2 pneumonia. [employer] was called on 02/25 due to tachycardia, tachypnea and diaphoresis and patient was upgraded to ICU for further management. 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 He is also quadriplegic with spastic contractures and has reported history of seizures. Patient is status post tracheostomy and status post PEG tube (which patient is reliant on for feeding). Patient is aware and does respond to commands EEG shows diffuse slowing and paroxysmal bursts of spike and waves discharges Improvement with nausea and vomiting with decreased Keppra dose, will continue with the new Keppra dose now Plan: ? Continue tube feeds at slow rate ? GT Keppra 1000 mg twice daily ? GT gabapentin 400 mg 3 times daily ? GT Baclofen 20 mg every 6 hours as needed ? Consider IV Reglan as needed for recurrent vomiting #Hypotension, refractory (improving) #?Septic shock #Multifocal pneumonia, likely Pseudomonas #Chronic mucous plugging #Nonbloody emesis #Fever of unknown origin, intermittent and refractory to antibiotics (improving) #Chronic normocytic anemia Above handled by primary team Patient seen and care discussed with my attending physician, Dr. Grant Matias, PGY-2 Attending Provider Attestation/Addendum I personally have seen and examined the patient at the bedside and agreed with resident's findings, assessment and plan of care. Patient remained stable on Keppra 1000 g twice a day without any hemodynamic changes, tolerating tube feeding well without any vomiting with metoclopramide only as needed. Patient is stable from neurology standpoint for going back to subacute.
--- NOTE | 2025-03-06 13:16 | ESDS_ITS ---
<Statement entered by Casey Wallace MD - 03/07/25 13:08> TOTAL TIME: 45MINUTES ON DIRECT MEDICAL CARE, MANAGEMENT - COORDINATION AND COUNSELING > 50% OF TOTAL TIME I saw and evaluated the patient. I reviewed the resident?s note and agree with findings and plan as documented in the resident?s note. <Statement entered by Bird Cabrera MD - 03/06/25 15:51> I saw and examined patient personally and supervised PGY 1 resident, Dr. Lakhani with formulating a management plan. I agree with the documentation. Patient is now clinically stable for downgrade back to subacute. Plan of care discussed with Attending Dr. Madison Cabrera MD PGY 2 Disclaimer: This note was dictated by speech recognition. Minor errors in alva scription may be present due to voice recognition software. Planned Discharge Date 03/06/25 DS: Providers Provider Date of admission: 02/21/25 23:14 Primary care physician: Physician No Primary/Family Admitting Provider: Cristal Demarco MD Attending Provider on Admission: Beth Ashford MD Consults: 02/21/25 23:48 Referral Registered Dietitian Routine Comment: PEG tube feed 02/22/25 11:39 Referral Wound Care Stat Comment: 02/22/25 15:34 Referral Nutritional Services Routine Comment: Instructions: Wounds 02/27/25 15:49 Consult to Neurology / Tele-Neurology Routine Comment: Consulting Provider: Maurizio Burns 02/28/25 14:16 Consult to Digital Production Artist Routine Comment: Severe PNA Consulting Provider: Casey Wallace 03/05/25 14:03 Referral Registered Dietitian Routine Comment: TPN Attending Provider on DC: John Lakhani MD Discharging Provider: John Lakhani MD DS: Diagnosis Problem List Completed Was Problem List Reviewed/Reconciled?: Yes Hospital Course Hospital Course Hospital course: The patient is a 29-year-old male with a complex medical history including cocaine-induced cerebral vasculitis, seizures, anemia, chronic respiratory failure (status post tracheostomy and PEG tube), and quadriparesis. He was admitted from a subacute facility on 02/21/2025 for sepsis secondary to pneumonia, just three days after discharge from a prior hospitalization for ventilator- associated pneumonia and cellulitis. Initial management with IV cefepime led to clinical improvement (sputum cultures at the time grew ESBL Klebsiella, Pseudomonas, and Proteus), but the patient acutely decompensated on 02/25 with fever (104?F), tachycardia, tachypnea, hypoglycemia, and elevated lactic acid (9.2), prompting ICU transfer where he was intubated and sedated. Imaging revealed bilateral pneumonia and patient continued to have persistent febrile episodes and refractory hypotension despite being on IV Vancomycin [02/21-02/22, 02/23-02/27], IV ceftriaxone 1 g qD [02/22-02/22], IV cefepime 2 g qD [02/22-02/25], and IV Zosyn 3.375 q8HR [02/25-02/27]. 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 As a result, it was decided to start a [id number] of double antipseudomonal coverage with IV meropenem 2000 mg q8HR and IV ciprofloxacin 400 mg q8HR which seemed to resolve patient's refractory febrile and hypotensive episodes. However, patient developed new episodes of apparent post-tussive emesis which were refractory to Zofran and Reglan. These episodes of post-tussive emesis prompted PEG tube suctioning and temporary ventilatory support to allow tracheostomy cuff inflation. Tube feeds were adjusted (Jevity 1.5 at reduced rates) to improve tolerance. Emesis was eventually managed with PO Valium and scheduled baclofen to modulate GABAergic pathways. By 03/06, the patient had completed 7 days of IV meropenem and IV ciprofloxacin, with plans to continue for a full 14-day course (until 03/12). He remained afebrile, acceptably hypotensive, and free of emesis, and was deemed stable for discharge back to subacute care with plans for chronic suppressive therapy using nebulized tobramycin. Patient is safe to discharge to home. Further discharge instructions below. ? We have put a hold on your medication metoprolol due to your lower blood pressure and heart rate. Do not resume until you see your primary doctor. ? We have started you on a medication ciprofloxacin 400 mg IV every 8 hourly for your resistant pseudomonal pneumonia. Continue to take until 03/13/2025 ? We have started you on a medication meropenem 1 g IV every 8 hourly for your resistant pseudomonal pneumonia. Continue to take until 03/14/2025. - We recommend inhaled tobramycin once monthly to reduce burden of MDR pseud omonal colonization ? We have scheduled your baclofen for vomiting. ? We have started metoclopramide as needed for vomiting ? Will start new medication diazepam as needed for vomiting. ? Continue taking the rest of your home medications as before. - Follow up with your primary care physician within 1 week of discharge. If you do not have a primary care physician, please follow up with the [facility] clinic ([phone]) ? If you experience any new, worsening or persistent symptoms either call your primary doctor, or dial 911 or present to the emergency department. #History of cocaine induced cerebral vasculitis #Status post tracheostomy #Status post PEG tube #History of quadriparesis with spastic contractures #History of seizures #Septic shock #Hypotension, refractory #Multifocal pneumonia, likely Pseudomonas #Chronic mucous plugging #Nonbloody emesis, refractory to antiemetics #Fever of unknown origin, intermittent and refractory to antibiotics #Leukocytosis #Chronic normocytic anemia #Lactic acidosis #JESUS #Transaminitis #Hyperkalemia #Hypoglycemia #Electrolyte derangements Status at Discharge Cognitive/Behavioral Status at Discharge: stable Functional Status at Discharge: bedbound with tracheostomy and PEG tube Overall Status at Discharge: patient is back to baseline Total Time Spent Providing and/or Coordinating Discharge Services: more than 30 minutes of care and coordination Status at Discharge Functional status at discharge: bed bound Time Spent with Patient Time attestation: Total time spent providing and/or coordinating discharge services: Time spent: Greater than 30 minutes (35) Exam Vital Signs Temp Pulse Resp BP Pulse Ox O2 Del Method O2 Flow Rate 97.8 F 97 29 H 105/59 L 99 Mechanical Ventilation 10 03/06/25 08:00 03/06/25 10:34 03/06/25 10:00 03/06/25 10:34 03/06/25 10:34 03/06/25 08:00 03/03/25 07:00 FiO2 35 03/06/25 10:34 Narrative Exam General: Awake and responsive to voice by eye tracking. Nonverbal. Thin male in no acute distress with tracheostomy. HEENT: NCAT, PERRLA, EOMI, some slight horizontal nystagmus noted, MMM, anicteric conjunctivae. CVS: Regular rate and rhythm. Normal S1 and S2. No M/R/G. Resp: Tracheostomy tube in place. Tachypneic. Coarse breathing B/L. No rhonchi, rales, crackles or wheezing. Abd: PEG tube in place. Soft, non-tender, non-distended. BS+ in all 4 quadrants. MSK: Upper and lower extremities are stiff with decerebrate posturing. Neuro: Limited exam due to medical condition. Can answer yes or no via blinking signals when coached. Discharge Plan Plan Patient Disposition: Xfer Halfway Acute w/in Hosp Patient condition on transfer: Stable Care Plan Goals: ? We have put a hold on your medication metoprolol due to your lower blood pressure and heart rate. Do not resume until you see your primary doctor. ? We have started you on a medication ciprofloxacin 400 mg IV every 8 hourly for your resistant pseudomonal pneumonia. Continue to take until 03/13/2025 ? We have started you on a medication meropenem 1 g IV every 8 hourly for your resistant pseudomonal pneumonia. Continue to take until 03/14/2025. - We recommend inhaled tobramycin once monthly to reduce burden of MDR pseudomo nal colonization ? We have scheduled your baclofen for vomiting. ? We have started metoclopramide as needed for vomiting ? Will start new medication diazepam as needed for vomiting. - Patient currently on spontaneous mode ventilation with FiO2 of 35% for airway protection. ? Continue taking the rest of your home medications as before. - Follow up with your primary care physician within 1 week of discharge. If you do not have a primary care physician, please follow up with the [facility] clinic ([phone]) ? If you experience any new, worsening or persistent symptoms either call your primary doctor, or dial 911 or present to the emergency department. Prescriptions/Referrals Prescriptions/Med Rec: New ipratropium-albuterol 0.5 mg-3 mg(2.5 mg base)/3 mL Solution For Nebulization 3 ml INH Q2HR PRN (Reason: wheeze) 30 Days Qty: 180 0RF ciprofloxacin in 5 % dextrose 400 mg/200 mL Piggyback 400 mg IV Q8H 8 Days Qty: 4800 0RF baclofen 10 mg Tablet 20 mg G-tube Q6HR 30 Days Qty: 240 0RF metoclopramide HCl 5 mg/mL Solution 10 mg IVP Q8HR PRN (Reason: Vomiting) 30 Days Qty: 50 0RF gabapentin 400 mg Capsule 400 mg G-tube TID 30 Days Qty: 90 0RF thiamine HCl (vitamin B1) 100 mg/mL Solution 100 mg IVP QDAY 14 Days Qty: 14 0RF meropenem 1 gram Recon Soln 1,000 mg IV Q8HR 8 Days Qty: 25 0RF insulin lispro 100 unit/mL Solution 2 unit SCi Q6HR PRN (Reason: hyperglycemia) 30 Days Qty: 10 2RF levetiracetam 500 mg/5 mL Solution 1,000 mg IVP Q12HR 30 Days Qty: 125 0RF ondansetron HCl (PF) 4 mg/2 mL Solution 4 mg IVP Q6H PRN (Reason: Nausea Or Vomiting) 30 Days Qty: 50 0RF diazepam 5 mg/mL concentrate 5 mg PO BID PRN (Reason: Nausea/Vomiting) 30 Days Qty: 30 0RF Continued albuterol sulfate 2.5 mg /3 mL (0.083 %) Solution For Nebulization 2.5 mg inhalation Q4H PRN (Reason: shortness of breath or wheezing) ascorbic acid (vitamin C) 500 mg Tablet 500 mg G-tube BID atorvastatin 40 mg Tablet 40 mg G-tube HS baclofen 20 mg Tablet 20 mg G-tube Q6HR bisacodyl [Dulcolax (bisacodyl)] 10 mg Suppository 10 mg NV PRN PRN (Reason: No BM Per Bowel Management Protocol) Rx Instructions: Administer as needed on 6th shift, if MOM ineffective. ipratropium-albuterol 0.5 mg-3 mg(2.5 mg base)/3 mL Solution For Nebulization 3 ml INH Q2HR PRN (Reason: Wheezing) guaifenesin [Noreen-Tussin] 100 mg/5 mL Liquid 200 mg G-tube Q4H PRN (Reason: congestion/cough) lansoprazole 30 mg Capsule,Delayed Release(Dr/Ec) 30 mg G-tube QDAY levetiracetam 100 mg/mL Solution 1,000 mg G-tube BID midodrine 5 mg Tablet 5 mg G-tube TID PRN (Reason: Hold for SBP>90 and DBP>50) Rx Instructions: do not give last dose of day after 6PM or within 4 hrs of bedtime magnesium hydroxide [Milk of Magnesia] 400 mg/5 mL Suspension 30 ml G-tube PRN PRN (Reason: Constipation) Rx Instructions: CONC: 400MG/5ML morphine concentrate 100 mg/5 mL (20 mg/mL) Solution 2 mg G-tube TID PRN (Reason: GIVE 30 MINS PRIOR TO WOUND TX) multivitamin Tablet 1 tab G-tube QDAY polyethylene glycol 3350 17 gram Powder In Packet 17 g G-tube PRN PRN (Reason: No BM Per Bowel Management Protocol) Rx Instructions: Mix with 4oz of water before giving. Hold tube feeding for 30 minutes after administration. Notify provider if no results from Miralax. Fleet Enema 19-7 gram/118 mL Enema 133 ml NV PRN PRN (Reason: No BM Per Bowel Management Protocol) acetaminophen 325 mg Tablet 650 mg G-tube Q4HR PRN (Reason: Fever > 100.0) Rx Instructions: not to exceed 3 gms of tylenol in 24 hours from all other sources lactulose 10 gram/15 mL Solution 10 g feeding tube QDAY Rx Instructions: hold if with loose BM Held metoprolol tartrate 25 mg Tablet 100 mg G-tube BID Hold Instructions: Resume on 03/13/25. Until you see PCP Rx Instructions: Hold for SBP<100 and or HR<60 (BBW) Discontinued acetaminophen 325 mg Tablet 650 mg G-tube Q6HR PRN (Reason: Pain) Rx Instructions: not to exceed 3 gm of tylenol in 24 hours from all other sources gabapentin 300 mg Capsule 300 mg G-tube TID Referrals: No Primary/Family,Physician [Primary Care Provider] Patient/Caregiver Discharge Instructions Education Materials: What Is Pneumonia?, Preventing Pneumonia, Treating Pneumo regis, Dehydration, When You Have Pneumonia, When to Use Antibiotics Print Language: Citizen Of [place] Stand Alone Forms: Claudia Award Info., Patient Portal Info Letter Discharge Order Discharge Orders: Discharge (Routine); Ordered 03/06/25 Ordered By: Bird Cabrera Quality Discharge Quality Measures VTE prophylaxis
[2025-03-06] MEDS: MEROPENEM INJ 1,000 MG in SODIUM CHLORIDE 0.9% (Popper) 50 ML 100 MG IV (13:38)
--- NOTE | 2025-03-06 13:41 | PC.SS ---
Clinical updates submitted to [facility] on [facility]. Plan is to d/c patient today. PASSR completed submitted.
--- NOTE | 2025-03-06 14:56 | PC.NURSE ---
Report given to Meche Redmond from subacute. Current Assessment mechanical vent settings, recent vitals and orders given to Meche REDMOND. Discharge instructions given to Meche REDMOND and new medications. No further questions from RN
--- NOTE | 2025-03-06 15:00 | PC.NURSE ---
Per MD Deborah hansen to send patient to subacute with central line TLC. Per subacute nurses may access line to give IV antibiotics and finsih tpn adminstration. Per finish current bag running then DC tpn and only tube feeds may run. Tube feeds currently running and report given to Nyla erazo.
[2025-03-12 06:51] LABS: ANCA Screen NEGATIVE (NEGATIVE); Myeloperoxidase Ab <1.0 AI (<1.0); Proteinase-3 Ab <1.0 AI (<1.0)
== END 2025-03-06 15:13 | disposition skilled nursing facility (03) | DRG 720 ==
LOC: SERX 21:29 → SERHOLD 23:43 → S2NX 02-22 15:02 → S2SX 02-26 13:30 → S2NX 02-27 10:43
PROVIDERS: Internal Medicine Critical Care Medicine; Internal Medicine Infectious Disease; Nurse Practitioner Family; Radiology Diagnostic Radiology; Student in an Organized Health Care Education/Training Program; Admitting Provider Student in an Organized Health Care Education/Training Program; Emergency Provider Emergency Medicine; Visit Provider Student in an Organized Health Care Education/Training Program
DX: A41.52 Sepsis due to Pseudomonas (principal); G82.50 Quadriplegia, unspecified; R65.20 Severe sepsis without septic shock; J96.22 Acute and chronic respiratory failure with hypercapnia; E87.4 Mixed disorder of acid-base balance; J18.9 Pneumonia, unspecified organism; N17.9 Acute kidney failure, unspecified; E87.5 Hyperkalemia; E83.52 Hypercalcemia; J15.1 Pneumonia due to Pseudomonas; E83.42 Hypomagnesemia; J95.851 Ventilator associated pneumonia; R40.3 Persistent vegetative state; Z66 Do not resuscitate; Z93.0 Tracheostomy status; Z93.1 Gastrostomy status; B96.4 Proteus (mirabilis) (morganii) as the cause of diseases classified elsewhere; E83.39 Other disorders of phosphorus metabolism; E87.6 Hypokalemia; E23.3 Hypothalamic dysfunction, not elsewhere classified; G40.909 Epilepsy, unspecified, not intractable, without status epilepticus; I48.91 Unspecified atrial fibrillation; I47.10 Supraventricular tachycardia, unspecified; Z16.12 Extended spectrum beta lactamase (ESBL) resistance; Z16.13 Resistance to carbapenem; Z16.24 Resistance to multiple antibiotics; N39.0 Urinary tract infection, site not specified; Z74.01 Bed confinement status; G90.4 Autonomic dysreflexia; Z79.899 Other long term (current) drug therapy; L52 Erythema nodosum; I77.82 Antineutrophilic cytoplasmic antibody [ANCA] vasculitis
CPT/HCPCS: 36415; 36600; 71045; 71275; 74176; 74177; 80053; 80069; 80076; 80202; 81001; 82550; 82803; 83605; 83615; 83690; 83735; 83880; 84100; 84132; 84145; 84439; 84443; 84478; 84484; 85025; 85610; 85652; 85730; 86021; 86036; 86140; 86331; 86635; 86703; 86803; 86850; 86900; 86901; 86923; 87040; 87077; 87081; 87186; 87205; 87502; 87634; 87635; 87811; 93005; 93306; 93970; 94002; 94003; 94640; 94667; 95816; 96361; 96365; 96366; 96375; 96376; 99285; A4216; A4314; A4649; A9270; J0131; J0133; J0153; J0461; J0692; J0696; J0744; J1450; J1611; J1644; J1953; J1956; J2185; J2250; J2270; J2405; J2470; J2543; J2598; J2765; J2997; J3010; J3360; J3370; J3372; J3373; J3411; J3475; J3480; J3490; J7042; J7050; J7070; J7120; J7121; J7999; P9016; Q9967

== ENCOUNTER 2025-03-07 02:22 | Inpatient (IN) | payer OTHER, SELFPAY ==
[2025-03-07] VITALS (18 sets, daily range): BP systolic 92–141; BP diastolic 56–79; PULSE 67–126; RESP 19–28; TEMP 34.9–38.1; O2SAT 97–100; BMI 18.1
--- NOTE | 2025-03-07 03:02 | XR_ITS ---
Examination: AP chest single view Technique one AP portable semiupright chest single view Date and time: March 07, 2025 0311 hrs., Comparison 03/02/2025 Indications: Chest pain today. Findings: Diffuse right lung pneumonia, extensive in the right upper lobe Mild diffuse left lung pneumonia Left subclavian central line tip SVC Normal heart size Prominent osteopenia Impression: Bilateral pneumonia, prominent in the right upper lobe
--- NOTE | 2025-03-07 03:02 | EDNOTE_ITS ---
ED General RME/HPI General Chief complaint: General Adult/Misc Complain Stated complaint: LOW TEMPERATURE Time Seen by Provider: 03/07/25 02:38 Arrival date/time: 03/07/25 02:22 RME / HPI RME / HPI narrative: DR. GREEN MAIN ED EVALUATION: 29 y/o male with Hx of Crack/Cocaine use, Quadriplegia, PNA secondary to Pseudomonas, Tracheostomy presents to ED BIBA from [facility] for stated c/o tem perature of 93.1F x HAND PATTERN MARKER. Patient was diagnosed with PNA on 02/19/2025. Patient is DNR. No other concerns or complaints expressed at this time. Related Data Previous Rx's ?Medication ?Instructions ?Recorded Ciprofloxacin 400 Mg Iv 400 mg IV Q8HR Pneumonia 8 d ays 03/06/25 Meropenem 1 g IV Q8HR Pneumonia 8 days 03/06/25 Valium 5 mg G-tube PRN PRN SEIZURES 30 03/06/25 days #30 tabs acetaminophen 325 mg tablet 650 mg (2 x 325 mg) G-tube Q4HR 03/06/25 PRN Fever > 100.0 30 days #300 tabs albuterol sulfate 2.5 mg/3 mL 2.5 mg (3 mL) inhalation Q4H PRN 03/06/25 (0.083 %) solution for nebulization shortness of breat h or wheezing 30 days #90 mL ascorbic acid (vitamin C) 500 mg 500 mg G-tube BID 30 days #30 tabs 03/06/25 tablet atorvastatin 40 mg tablet 40 mg G-tube HS 30 days #30 tabs 03/06/25 baclofen 10 mg tablet 20 mg (2 x 10 mg) G-tube Q6H R 30 03/06/25 days #60 tabs bisacodyl 10 mg rectal suppository 10 mg NM PRN PRN No BM Per Bowel 03/06/25 (Dulcolax (bisacodyl)) Management Protocol 30 days #12 ea diazepam 5 mg/mL oral concentrate 5 mg PO BID PRN Naus ea/Vomiting 1 03/06/25 month #30 mL gabapentin 400 mg capsule 400 mg G-tube TID 30 days #3 0 caps 03/06/25 guaifenesin 100 mg/5 mL oral 200 mg (10 mL) G-tube Q4H PRN 03/06/25 liquid (Noreen-Tussin) congestion/cough 30 days #1, 500 mL insulin lispro 100 unit/mL 2 unit (0.02 mL) SCi Q6HR P RN 03/06/25 subcutaneous solution hyperglycemia #10 mL ipratropium 0.5 mg-albuterol 3 mg 3 ml INH Q2HR PRN Wh eezing 30 days 03/06/25 (2.5 mg base)/3 mL nebulization #90 mL soln ipratropium 0.5 mg-albuterol 3 mg 3 ml INH Q2HR PRN wh eeze 1 month 03/06/25 (2.5 mg base)/3 mL nebulization #180 mL soln lactulose 10 gram/15 mL oral 10 g (15 mL) feeding tube QDAY 30 03/06/25 solution days #450 mL lansoprazole 30 mg capsule,delayed 30 mg G-tube QDAY 3 0 days #30 caps 03/06/25 release levetiracetam 100 mg/mL oral 1,000 mg (10 mL) G-tube B ID 30 03/06/25 solution days #300 mL levetiracetam 500 mg/5 mL 1,000 mg (10 mL) IVP Q12HR 1 month 03/06/25 intravenous solution #125 mL magnesium hydroxide 400 mg/5 mL 30 ml G-tube PRN PRN C onstipation 03/06/25 oral suspension (Milk of Magnesia) 30 days #3,000 mL metoclopramide HCl 5 mg/5 mL oral 10 mg (10 mL) G-tube TID PRN 03/06/25 solution vomiting 30 days #473 mL metoclopramide HCl 5 mg/mL 10 mg (2 mL) IVP Q8HR PRN V omiting 03/06/25 injection solution 1 month #50 mL metoprolol tartrate 25 mg tablet 100 mg (4 x 25 mg) G- tube BID 30 03/06/25 days #120 tabs midodrine 5 mg tablet 5 mg G-tube TID PRN Hold for 03/06/25 SBP>90 and DBP>50 30 days #39 vials morphine concentrate 100 mg/5 mL 2 mg (0.1 mL) G-tube TID PRN GIVE 03/06/25 (20 mg/mL) oral solution 30 MINS PRIOR TO WOUND TX 36 5 days #15 mL multivitamin 1 tab G-tube QDAY 30 days #3 0 tabs 03/06/25 ondansetron HCl (PF) 4 mg/2 mL 4 mg (2 mL) IVP Q6H PRN Nausea Or 03/06/25 injection solution Vomiting 1 month #50 mL ondansetron HCl 4 mg tablet 4 mg PO Q6HR PRN Nausea Or 03/06/25 Vomiting 30 days #30 tabs polyethylene glycol 3350 17 gram 17 g G-tube PRN PRN N o BM Per 03/06/25 oral powder packet Bowel Management Protocol 30 days #30 ea sodium phosphates 19 gram-7 133 ml NM PRN PRN No BM Pe r Bowel 03/06/25 gram/118 mL enema (Fleet Enema) Management Protocol 30 days #133 mL thiamine HCl (vitamin B1) 100 mg 100 mg G-tube QDAY Th iamine 03/06/25 tablet (Vitamin B-1) deficiency 29 days #30 tabs thiamine HCl (vitamin B1) 100 100 mg IVP QDAY 2 weeks #14 mL 03/06/25 mg/mL injection solution Allergies Allergy/AdvReac Type Severity Reaction Status Date / Time No Known Allergies Allergy Unverified 10/23/24 09:16 Review of Systems Review of Systems Systems Reviewed: All systems reviewed, normal except as documented Past Medical History Past Medical History CARDIAC: Positive Hypercholesterolemia and Hypotension RESPIRATORY: Positive Asthma (trach with ventilator) and Pneumonia GASTROINTESTINAL: Positive Gastroesophageal Reflux Disease ENDOCRINE: Positive Systemic Lupus Erythematosus PSYCHO/SOCIAL: Positive Recreational Drug Use Surgical History SURGICAL: Positive Tracheostomy and Gastrostomy Social History SUBSTANCE USE: crack/cocaine ED Exam Narrative Physical exam: Generally extremely debilitated individual with minimal response to tactile stimulus, neck shows tracheostomy to be in place with the patient being ventilator dependent, lungs show poor breath sounds bilaterally, heart regular rate and rhythm, abdomen shows G-tube to be in place minimally distended neurologic exam shows patient have no movement and no sounds to painful stimuli extremities show muscle wasting to all extremities with flexion contractures, s kin is cool and dry Course Course Course Narrative: Sepsis alert initiated. Orders made at this time are congruent with ED Adult Sepsis Order List. Re-evaluation is to be completed. Quality Measures Current suspected stage: sepsis Possible source: pulmonary Blood cultures ordered: yes Antibiotic ordered: Yes Pertinent labs: 03/07/25 03:10 Lactic Acid 1.0 mMol/L (0.4-2.0) sepsis and comfort care/end of life Orders Category Date Time Status EKG (ED ONLY) *Do not use* NOW Care 03/07/25 03:02 Active EKG (ED Only) Stat Exams 03/07/25 03:02 Ordered XR chest 1V portable Stat Exams 03/07/25 03:02 Ordered Blood Culture (Lab) Stat Lab 03/07/25 03:14 Received CMP [Comprehensive Metabolic Panel] Stat Lab 03/07/25 03:10 Ordered Lactic Acid [Lactate (Lactic Acid)] Stat Lab 03/07/25 03:10 Completed Troponin I Stat Lab 03/07/25 03:10 Ordered Vital Signs Vital signs: Vital Signs Temperature 94.8 F L 03/07/25 02:31 Pulse Rate 67 03/07/25 02:31 Respiratory Rate 19 03/07/25 02:31 Blood Pressure 92/56 L 03/07/25 02:31 Pulse Oximetry (%) 100 03/07/25 02:31 Oxygen Delivery Method Trach Collar 03/07/25 02:31 Critical Care Time Critical Care Time Critical Care Time: Yes Total Critical Care Time (min.): 35 Attestation: Excluding other billable procedures Discharge Plan Plan Patient Disposition: Admit Acute Care w/in Hospital Prescriptions/Referrals Prescriptions/Med Rec: No Action Valium 5 mg G-tube PRN PRN (Reason: SEIZURES) 30 Days Qty: 30 0RF metoclopramide HCl 5 mg/5 mL solution 10 mg G-tube TID PRN (Reason: vomiting) 30 Days Qty: 473 0RF thiamine HCl (vitamin B1) [Vitamin B-1] 100 mg tablet 100 mg G-tube QDAY 29 Days Qty: 30 1RF ondansetron HCl 4 mg tablet 4 mg PO Q6HR PRN (Reason: Nausea Or Vomiting) 30 Days Qty: 30 0RF multivitamin Tablet 1 tab G-tube QDAY 30 Days Qty: 30 0RF atorvastatin 40 mg tablet 40 mg G-tube HS 30 Days Qty: 30 0RF acetaminophen 325 mg tablet 650 mg G-tube Q4HR PRN (Reason: Fever > 100.0) 30 Days Qty: 300 3RF Rx Instructions: not to exceed 3 gms of tylenol in 24 hours from all other sources ipratropium-albuterol 0.5 mg-3 mg(2.5 mg base)/3 mL solution for nebulization 3 ml INH Q2HR PRN (Reason: Wheezing) 30 Days Qty: 90 0RF albuterol sulfate 2.5 mg /3 mL (0.083 %) solution for nebulization 2.5 mg inhalation Q4H PRN (Reason: shortness of breath or wheezing) 30 Days Qty: 90 0RF polyethylene glycol 3350 17 gram powder in packet 17 g G-tube PRN PRN (Reason: No BM Per Bowel Management Protocol) 30 Days Qty: 30 0RF Rx Instructions: Mix with 4oz of water before giving. Hold tube feeding for 30 minutes after administration. Notify provider if no results from Miralax. morphine concentrate 100 mg/5 mL (20 mg/mL) solution 2 mg G-tube TID MDD 2 mg PRN (Reason: GIVE 30 MINS PRIOR TO WOUND TX) 365 Days Qty: 15 0RF gabapentin 400 mg capsule 400 mg G-tube TID 30 Days Qty: 30 0RF midodrine 5 mg tablet 5 mg G-tube TID PRN (Reason: Hold for SBP>90 and DBP>50) 30 Days Qty: 39 0RF Rx Instructions: do not give last dose of day after 6PM or within 4 hrs of bedtime guaifenesin [Noreen-Tussin] 100 mg/5 mL liquid 200 mg G-tube Q4H PRN (Reason: congestion/cough) 30 Days Qty: 1500 0RF magnesium hydroxide [Milk of Magnesia] 400 mg/5 mL suspension 30 ml G-tube PRN PRN (Reason: Constipation) 30 Days Qty: 3000 0RF Rx Instructions: CONC: 400MG/5ML ascorbic acid (vitamin C) 500 mg tablet 500 mg G-tube BID 30 Days Qty: 30 0RF bisacodyl [Dulcolax (bisacodyl)] 10 mg suppository 10 mg NM PRN PRN (Reason: No BM Per Bowel Management Protocol) 30 Days Qty: 12 0RF Rx Instructions: Administer as needed on 6th shift, if MOM ineffective. lansoprazole 30 mg capsule,delayed release(DR/EC) 30 mg G-tube QDAY 30 Days Qty: 30 0RF Fleet Enema 19-7 gram/118 mL enema 133 ml NM PRN PRN (Reason: No BM Per Bowel Management Protocol) 30 Days Qty: 133 0RF insulin lispro 100 unit/mL solution 2 unit SCi Q6HR PRN (Reason: hyperglycemia) Qty: 10 11RF levetiracetam 100 mg/mL solution 1,000 mg G-tube BID 30 Days Qty: 300 0RF metoprolol tartrate 25 mg tablet 100 mg G-tube BID 30 Days Qty: 120 0RF Rx Instructions: Hold for SBP<100 and or HR<60 (BBW) lactulose 10 gram/15 mL solution 10 g feeding tube QDAY 30 Days Qty: 450 0RF Rx Instructions: hold if with loose BM baclofen 10 mg tablet 20 mg G-tube Q6HR 30 Days Qty: 60 0RF Meropenem 1 g IV Q8HR 8 Days 0RF Rx Instructions: Meropenem 1 Gm IV every 8 hours for 8 days for PNA. Ciprofloxacin 400 Mg Iv 400 mg IV Q8HR 8 Days 0RF Label Comments: Black Box Warning Rx Instructions: Ciprofloxacin 400mg IV every 8 hours for 8 days for PNA. BBW (Infuse over 2 hours) ipratropium-albuterol 0.5 mg-3 mg(2.5 mg base)/3 mL Solution For Nebulization 3 ml INH Q2HR PRN (Reason: wheeze) 30 Days Qty: 180 0RF metoclopramide HCl 5 mg/mL Solution 10 mg IVP Q8HR PRN (Reason: Vomiting) 30 Days Qty: 50 0RF thiamine HCl (vitamin B1) 100 mg/mL Solution 100 mg IVP QDAY 14 Days Qty: 14 0RF levetiracetam 500 mg/5 mL Solution 1,000 mg IVP Q12HR 30 Days Qty: 125 0RF ondansetron HCl (PF) 4 mg/2 mL Solution 4 mg IVP Q6H PRN (Reason: Nausea Or Vomiting) 30 Days Qty: 50 0RF diazepam 5 mg/mL concentrate 5 mg PO BID PRN (Reason: Nausea/Vomiting) 30 Days Qty: 30 0RF Problem List Clinical Impression: Respiratory failure, Dependent on ventilator, Pneumonia due to Pseudomonas, Quadriplegia Patient/Caregiver Discharge Instructions Print Language: Urdu Stand Alone Forms: Claudia Award Info., Patient Portal Info Letter MDM Narrative MDM hospital course (for use when minimal MDM required): Scribe Attestation: I, Carmita Bruner, am scribing for and in the presence of Dr. Green. Provider Notation: Although this document has been carefully reviewed, there may still be some phonetic and other typographical errors. These errors are purely grammatical due to imperfections in the software program and should not be construed in any way to compromise the substance of the patient's medical care during this visit. Patient just got discharged from the hospital for his drug-resistant pseudomonal pneumonia. He was discharged back to his [facility] facility to take Cipro 400 mg IV every 8 hours and meropenem 1 g IV every 8 hours. Patient decompensated at the [facility]dc facility with a rectal temperature of 93.1 degrees and was hypotensive with a blood pressure 93/55 however the patient was hypotensive here in the emergency room. He was sent back to the emergency room from the [facility]dc facility for further treatment and evaluation for his hypothermia and respiratory difficulty. Patient is a DO NOT RESUSCITATE CODE STATUS. Lactic acid level is not elevated. I discussed this case with the hospitalist group and the patient will be readmitted to the hospital. Clinical Information Provided by: EMS Medical Records reviewed [facility], EMS and residential Medical Records additional comments: Reviewed prior ED records from 02/21/25. Patient was seen for Sepsis. Meds/Rx considered, not ordered None Labs/Rad/Tests considered, not ordered None Chronic Illness/Social Conditions which may negatively complicate care or outcome(s)-explain: Gravely disabled, Cognitively impaired and residential/debilitated Labs Labs: interpreted by me and see narrative above Imaging Imaging interpretation: interpreted by me and see narrative above Diagnosis Differential Diagnosis ED Complaint MDM: Sepsis, Aspiration PNA, Pseudomonas PNA
--- NOTE | 2025-03-07 03:02 | EKG_ITS ---
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
[2025-03-07 03:22] LABS: Lactate (Lactic Acid) 1.0 mMol/L (0.4-2.0)
[2025-03-07 04:19] LABS: Basophils # (Auto) 0.0 Thou/mm3 (0.0-0.2); Basophils % (Auto) 1 % (0-2.5); Eosinophils # (Auto) 0.2 Thou/mm3 (0.0-0.5); Eosinophils % (Auto) 3 % (0-10); Hematocrit 25.7 % (41.0-53.0); Immature Granulocytes Auto 0.04 Thou/mm3 (0.00-0.00); Lymphocytes # (Auto) 1.3 Thou/mm3 (1.0-4.8); Lymphocytes % (Auto) 18 % (10-50); Mean Corpuscular HGB Conc 31.5 g/dl (31.0-37.0); Mean Corpuscular Hemoglobin 27.5 pg (25.0-35.0); Mean Corpuscular Volume 87 fL (80-100); Monocytes # (Auto) 0.7 Thou/mm3 (0.0-0.8); Monocytes % (Auto) 10 % (0-12); Neutrophils # (Auto) 4.9 Thou/mm3 (1.8-7.7); Neutrophils % (Auto) 68 % (37-80); Nucleated Red Blood Cell # 0.00 Thou/mm3 (0.00-0.00); Nucleated Red Blood Cell % 0 /100 WBC (0); Platelet Count 301 Thou/mm3 (140-440); RDW Standard Deviation 73.1 fL (35.1-43.9); Red Blood Count 2.95 Miln/mm3 (4.50-5.90); White Blood Count 7.3 Thou/mm3 (3.8-10.6)
[2025-03-07 04:25] LABS: Hemoglobin 8.1 g/dL (13.5-16.0)
[2025-03-07 04:37] LABS: Alanine Aminotransferase < 7 U/L (10-49); Albumin, Serum 3.2 gm/dL (3.5-5.0); Albumin/Globulin Ratio 0.9 (1.2-2.2); Alkaline Phosphatase 99 U/L (46-116); Anion Gap 9 (7-16); Aspartate Amino Transferase 13 U/L (0-34); BUN/Creatinine Ratio 13 Ratio (12-20); Bilirubin,Total 0.2 mg/dL (0.3-1.2); Blood Urea Nitrogen < 5 mg/dL (9-23); Calcium 9.4 mg/dL (8.3-10.6); Calcium (Corrected) 10.0 mg/dL (8.5-10.1); Carbon Dioxide 27.0 mMol/L (20.0-31.0); Chloride 106 mMol/L (98-107); Creatinine (Component) 0.4 mg/dL (0.6-1.3); Estimated Creatinine Clearance 229.3 mL/min (>60); Globulin 3.5 gm/dL (2.3-3.5); Glucose 84 mg/dL (74-106); Osmolality,Calculated 279 (275-295); Potassium 4.0 mMol/L (3.4-5.1); Sodium 142 mMol/L (136-145); Total Protein 6.7 gm/dL (5.7-8.2); Troponin I 0.020 ng/mL (0.0-0.045); eGFR > 60 See Note
--- NOTE | 2025-03-07 05:26 | PD.RESHP ---
Documentation for date of: 03/07/25 [facility] History of Present Illness History of present illness: This is a 29-year-old male with a complex medical history including cocaine-induced cerebral vasculitis, seizures, chronic respiratory failure (status post tracheostomy and PEG tube), anemia, and quadriparesis, presented to ED with a rectal temperature of 93 found during rounds at SNF. No further history was obtained given chronic vegetation status. Summary of last admission: He was admitted on 02/21/2025 for sepsis secondary to pneumonia. This occurred only three days after a recent discharge for ventilator-associated pneumonia and leg cellulitis. Upon admission, he was started on IV cefepime with initial improvement, and sputum cultures grew ESBL Klebsiella, Pseudomonas, and Proteus. However, on the day of planned discharge, the patient acutely decompensated with fever of 104?F, severe tachycardia, hypoglycemia, and elevated lactic acid (9.2), prompting urgent ICU admission In the ICU, he was intubated and sedated. Imaging revealed bilateral pneumonia, and due to persistent febrile episodes and hypotension despite broad-spectrum antibiotics (vancomycin, cefepime, ceftriaxone, Zosyn), there was growing concern for multidrug-resistant (MDR) Pseudomonas aeruginosa pneumonia, supported by prior ET cultures and worsening radiographic findings. Consequently, he was started on a 14-day course of dual antipseudomonal therapy with IV meropenem and IV ciprofloxacin, which resulted in improved hemodynamic stability and defervescence. Despite this, the patient developed recurrent, refractory post-tussive emesis that was unresponsive to Zofran and Reglan. These episodes necessitated PEG tube suctioning, ventilatory support for tracheostomy cuff inflation, and eventually were managed successfully with PO diazepam and scheduled baclofen, targeting GABAergic pathways. Tube feeding (Jevity 1.5) was resumed at a reduced rate and carefully titrated. The patient also showed signs of electrolyte imbalances (hypokalemia, hypomagnesemia, hypophosphatemia), which were aggressively corrected throughout hospitalization. Throughout the hospital stay, further investigations, including CT, CTA, CTAP, and EEG, were completed. EEG results were abnormal, suggesting diffuse encephalopathy and seizure activity, although no changes were made to his antiepileptic regimen. Spinal MRI was attempted multiple times but could not be completed due to coughing fits. By 03/06, the patient had completed 7 days of dual antibiotic therapy, remained afebrile, hemodynamically stable, and free from further emesis. His pneumonia and sepsis were considered to be improving under the ongoing treatment. He was discharged back to the subacute facility in stable condition, bedbound and back to his neurologic baseline, with instructions to complete the 14-day antibiotic course and to begin chronic suppressive therapy with monthly nebulized tobramycin to reduce the risk of MDR Pseudomonas recurrence. Medications including metoprolol were held due to hypotension, and antiemetic and antispasmodic regimens were adjusted accordingly. Past Medical History: As above. Past Surgical History: Unable to obtain. Medications: IPRATROPIUM-ALBUTEROL, CIPROFLOXACIN IN 5% DEXTROSE, BACLOFEN, METOCLOPRAMIDE HCL, GABAPENTIN, THIAMINE HCL (VITAMIN B1), MEROPENEM, INSULIN LISPRO, LEVETIRACETAM, ONDANSETRON HCL (PF), DIAZEPAM, ALBUTEROL SULFATE, ASCORBIC ACID (VITAMIN C), ATORVASTATIN, BISACODYL [DULCOLAX], GUAIFENESIN [TERRENCE-TUSSIN], LANSOPRAZOLE, MIDODRINE, MAGNESIUM HYDROXIDE [MILK OF MAGNESIA], MORPHINE CONCENTRATE, MULTIVITAMIN, POLYETHYLENE GLYCOL 3350, FLEET ENEMA, ACETAMINOPHEN, LACTULOSE. Allergies: No known allergies. Family History: Noncontributory. Social History: History of drug use. ED Course: T93.9, BP 92/56, HR 74, RR 26, satting 100% on MV at 35% FiO2. Bedside COVID was negative. Labs are relatively at baseline with WBC 7.3, Hgb 8.1, PLT 301, creatinine 0.4. Normal renal function, LFTs, electrolytes, and lactic acid. EKG also unchanged and showed sinus rhythm without acute ST changes. CXR improved since last admission, although possible right middle lobe pneumonia present. While in ED, he was immediately started on Valencia hugger, continued on mechanical ventilation. Reason for admission: Admitted under ops for hypothermia. Exam Vital Signs Temp Pulse Resp BP Pulse Ox O2 Del Method FiO2 94.8 F L 77 22 H 102/62 97 Mechanical Ventilation 35 03/07/25 02:31 03/07/25 05:18 03/07/25 04:16 03/07/25 04:16 03/07/25 05:18 03/07/25 04:16 03/07/25 05:18 Narrative Exam General: Alert, no apparent distress. HEENT: NCAT, PERRLA, EOMI, some slight horizontal nystagmus noted, MMM, anicteric conjunctivae. CVS: Regular rate and rhythm. Normal S1 and S2. No M/R/G. Resp: Tracheostomy tube in place. Tachypneic. Coarse breathing B/L. No rhonchi, rales, crackles or wheezing. Abd: PEG tube in place. Soft, non-tender, non-distended. BS+ in all 4 quadrants. MSK: Upper and lower extremities are stiff with decerebrate posturing. Neuro: Limited exam due to medical condition. Can answer yes or no via blinking signals when coached. Results: Labs 03/07/25 03:10 03/07/25 04:03 Labs: Short CBC 03/07/25 03/07/25 03/07/25 Range/Units 03:10 03:10 03:10 WBC Cancelled 7.3 Hgb Cancelled 8.1 L Hct Cancelled Plt Count 03/07/25 03/07/25 Range/Units 03:10 03:10 WBC Hgb Hct 25.7 L Plt Count Cancelled 301 BMP 03/07/25 04:03 Sodium 142 Potassium 4.0 Chloride 106 Carbon Dioxide 27.0 BUN < 5 L Creatinine 0.4 L Glucose 84 Calcium 9.4 Cardiac Enzymes 03/07/25 Range/Units 04:03 Troponin I 0.020 (0.0-0.045) ng/mL Liver Function 03/07/25 Range/Units 04:03 Total Bilirubin 0.2 L (0.3-1.2) mg/dL AST 13 (0-34) U/L ALT < 7 L (10-49) U/L Alkaline Phosphatase 99 (46-116) U/L Albumin 3.2 L (3.5-5.0) gm/dL Quality Measures Quality Measures sepsis Current suspected stage: ruled out Possible source: pulmonary Blood cultures ordered: yes Antibiotic ordered: Yes and comfort care/end of life Medications Home Medications and Allergies Allergies Allergy/AdvReac Type Severity Reaction Status Date / Time No Known Allergies Allergy Unverified 10/23/24 09:16 Visit Medications Acetaminophen (Acetaminophen Supp 650 Mg Supp) 650 mg MA Q6H PRN PRN Reason: Fever >100.4 or Pain 1-3 Stop: 04/06/25 05:14 Hydrocodone Bitart/Acetaminophen (Hydrocodone/Apap 10/325 Tab) 1 tab GT Q4HR PRN PRN Reason: PAIN SCALE 7-10 (Severe Stop: 03/12/25 05:05 Albuterol/Ipratropium (Albuterol/Ipratropium (Duoneb) Rt [place] 3 Ml Nebu) 3 ml INH Q6HRRT PRN PRN Reason: Wheezing Stop: 04/06/25 05:14 Atorvastatin Calcium (Atorvastatin Calcium 20 Mg Tablet) 40 mg PO HS RADHA Stop: 04/06/25 20:59 Baclofen (Baclofen 10 Mg Tablet) 20 mg PO Q6H RADHA Stop: 04/06/25 05:14 Bisacodyl (Bisacodyl 10 Mg Supp) 10 mg MA QDAY PRN; Protocol PRN Reason: CONSTIPATION Stop: 04/06/25 05:14 Dextrose (Dextrose 50%-Water Inj 50 Ml Syringe) 25 ml IV Q15MIN PRN PRN Reason: BG 50-70 responsive npo pt Stop: 04/06/25 05:14 Dextrose (Dextrose 50%-Water Inj 50 Ml Syringe) 50 ml IV Q15MIN PRN PRN Reason: BG <50 OR BG <70 & pt unresponsive Stop: 04/06/25 05:14 Diazepam (Diazepam 5 Mg Tablet) 5 mg GT BID [facility] Stop: 03/12/25 08:59 Gabapentin (Gabapentin 100 Mg Capsule) 400 mg GT TID [facility] Stop: 04/06/25 05:59 Glucagon (Glucagon Inj 1 Mg Vial) 1 mg IM Q15MIN PRN PRN Reason: BG <70, and no IV access Guaifenesin (Guaifenesin Syrup 200 Mg/10 Ml Udc) 200 mg PO Q4H PRN; Protocol PRN Reason: congestion/cough Stop: 04/06/25 05:14 Meropenem 1,000 mg/ Sodium (Chloride) 50 mls @ 100 mls/hr IV Q8HR [facility] Stop: 03/14/25 05:59 Ciprofloxacin/Dextrose (Cipro Ivpb) 400 mg in 200 mls @ 200 mls/hr IV Q12HR [facility] Stop: 03/14/25 05:14 Insulin Human Lispro (Insulin Lispro (Admelog) 1 Unit/0.01 Ml Unit) 0 unit SC ACHS RADHA; Protocol Stop: 04/06/25 07:29 Lactulose (Lactulose Syrup 20 Gm/30 Ml Udc) 10 gm PO QDAY RADHA; Protocol Stop: 04/06/25 08:59 Levetiracetam (Levetiracetam Inj 100 Mg/Ml Vial 5ml) 1,500 mg IVP Q12HR RADHA Stop: 04/06/25 08:59 Midodrine (Midodrine 5 Mg Tablet) 5 mg PO TID PRN PRN Reason: SBP>90 and DBP>50 Stop: 04/06/25 05:59 Ondansetron HCl (Ondansetron Inj 2 Mg/Ml Inj 2 Ml) 4 mg IVP Q6H PRN; Protocol PRN Reason: NAUSEA OR VOMITING Stop: 04/06/25 05:05 Oxycodone/Acetaminophen (Oxycodone/Apap 5/325 Tablet) 1 tab GT Q6H PRN PRN Reason: PAIN SCALE 4-6 (Moderate Stop: 03/12/25 05:05 Pantoprazole Sodium (Pantoprazole Inj 40 Mg Vial) 40 mg IVP QDAY RADHA Stop: 04/06/25 08:59 Assessment & Plan Plan This is a 29-year-old male with a complex medical history including cocaine-induced cerebral vasculitis, seizures, chronic respiratory failure (status post tracheostomy and PEG tube), anemia, and quadriparesis, presented to ED with a rectal temperature of 93 found during rounds at SNF. Hypothermia Presenting with hypothermia with temperature around 93. Per chart review, temperature fluctuates between hypothermia and hyperthermia. Likely hypothalamic dysregulation at this point given cerebral vasculitis and comorbidity. ? Continue Valencia hugger ? 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 He was discharged on IV ANTIBIOTIC therapy through central line and includes MEROPENEM and CIPROFLOXACIN. Currently aseptic, no leukocytosis, lactic acid normal, no signs of organ organ damage. ? Continue CIPROFLOXACIN 40 mg BID ? Continue MEROPENEM 1000 mg q.8h. Hx seizure disorder No signs of seizure activities. No reported recent seizure activities. ? Continue home KEPPRA 1500 mg IV BID Hypotension Admission BP 92/56, HR 74. ? Continue MIDODRINE PRN Chronic normocytic anemia Hemoglobin around 8, which is baseline for him. No signs of active bleed. ? Daily labs ? Transfuse for Hb less than 7 Hyperlipidemia ? 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 DuoNebs PRN ? GUAIFENESIN 200 mg q.4h. PRN ? BACLOFEN 20 mg q.6h. ? DIAZEPAM 5 mg BID ? GABAPENTIN 400 mg TID ? LACTULOSE 10 mg q. day ? ONDANSETRON 4 mg q.6h. PRN ? PANTOPRAZOLE 40 mg q. day ? Pain control ? Continue PEG tube feeds ? Wound care Health maintenance Diet: Pending registered dietitian recommendations GI prophylaxis: PROTONIX DVT prophylaxis: SCDs Antibiotics: MEROPENEM and CIPROFLOXACIN CODE STATUS: DNR Disposition: Admitted for hypothermia. Case was discussed with attending physician. Rm Johnson DO PGY II This document was transcribed using voice recognition technology. Minor inaccuracies may be present. Attending Provider Attestation/Addendum After examination of the patient and review of the clinical data I feel that this patient needs admission to the hospital for further treatment/evaluation. Plan of care discussed with patient and is in agreement. I Cristal Demarco MD, attest that I was physically present for martinez portions of evaluation, and examined patient, labs and imagings and plan of care were discussed with IM residents team, and I agree with the findings and plans documented above.
[2025-03-07] MEDS: CIPROFLOXACIN/D5w 400 MG IVPB 400 MG/200 ML BAG 200 MG IV ×2 (06:39→20:19)
[2025-03-07] MEDS: MEROPENEM INJ 1,000 MG in SODIUM CHLORIDE 0.9% (Popper) 50 ML 100 MG IV ×3 (06:41→21:44)
[2025-03-07] MEDS: BACLOFEN 10 MG TABLET 20 MG PO (06:52)
[2025-03-07] MEDS: GABAPENTIN 100 MG CAPSULE 400 MG GT ×3 (06:53→21:44)
[2025-03-07] MEDS: DIAZEPAM 5 MG TABLET GT ×2 (08:54→20:20)
[2025-03-07] MEDS: levETIRAcetam INJ 100 MG/ML VIAL 5ML 1500 MG IVP (08:55)
[2025-03-07] MEDS: LACTULOSE SYRUP 20 GM/30 ML UDC 10 GM GT (08:57)
--- NOTE | 2025-03-07 12:01 | ESPR_ITS ---
<Statement entered by Darryl Robbins MD - 03/07/25 17:36> Patient seen and assessed in hospital bed in chronic non-verbal trach/peg state. No hypothermic or hyperthermic episodes recorded during shift, yet. Patient continues to be on IV antibiotics, pending cultures. Will trial steroids pending neurology recommendations regarding possible autonomic dysfunction in the setting of vasculitis. Will continue to monitor the patient and expect discharge back to subacute within the next 24-48 hours. I have personally seen and examined the patient. I agree with the resident's assessment and plan as documented below. Darryl Robbins DO PGY-2 Internal Medicine - GME Documentation for date of: 03/07/25 Exam Vital Signs Temp Pulse Resp BP Pulse Ox O2 Del Method FiO2 100.6 F H 100 24 H 106/58 L 100 Mechanical Ventilation 35 03/07/25 07:20 03/07/25 10:34 03/07/25 07:20 03/07/25 10:34 03/07/25 10:34 03/07/25 07:20 03/07/25 10:34 Narrative Exam Physical Exam General: Awake and in no acute distress. Conversational and non-toxic appearing. Nonverbal, opens eyes spontaneously, frail. HEENT: Normocephalic, atraumatic, mucous membranes moist. Tracheostomy midline, no bleeding noted around trach. Heart: Regular rate and rhythm, normal S1 and S2, no murmurs appreciated. Lungs: Clear to auscultation with no wheezing or crackles. Abdomen: Soft, nondistended, nontender, positive bowel sounds. No guarding or rebound tenderness. PEG tube in place in center of abdomen without eyrthema no purulent drainage, some crusting around tube. Neurologic: Quadraparesis, extremities contorted, and nonverbal at baseline with eyes opening spontaneously. Able to track with eyes. Extremities: Chronic wounds on bilateral knees. Objective Labs 03/08/25 04:55 03/08/25 04:55 Labs: Laboratory Results - last 24 hr 03/07/25 03/07/25 03/07/25 03:10 03:10 03:10 WBC Cancelled 7.3 RBC Cancelled 2.95 L Hgb Cancelled Hct MCV MCH MCHC RDW Std Deviation Plt Count Neut % (Auto) Lymph % (Auto) Pike % (Auto) Eos % (Auto) Baso % (Auto) Neut # (Auto) Lymph # (Auto) [place] # (Auto) Eos # (Auto) Baso # (Auto) Immature Gran # (Auto) Absolute Nucleated RBC Immature Gran % Nucleated RBC % Sodium Potassium Chloride Carbon Dioxide Anion Gap BUN Creatinine Estim Creat Clear Calc eGFR BUN/Creatinine Ratio Glucose Calculated Osmolality Lactic Acid Calcium Corrected Calcium Total Bilirubin AST ALT Alkaline Phosphatase Troponin I Total Protein Albumin Globulin Albumin/Globulin Ratio 03/07/25 03/07/25 03/07/25 03:10 03:10 03:10 WBC RBC Hgb 8.1 L Hct Cancelled 25.7 L MCV Cancelled 87 MCH Cancelled MCHC RDW Std Deviation Plt Count Neut % (Auto) Lymph % (Auto) Pike % (Auto) Eos % (Auto) Baso % (Auto) Neut # (Auto) Lymph # (Auto) Pike # (Auto) Eos # (Auto) Baso # (Auto) Immature Gran # (Auto) Absolute Nucleated RBC Immature Gran % Nucleated RBC % Sodium Potassium Chloride Carbon Dioxide Anion Gap BUN Creatinine Estim Creat Clear Calc eGFR BUN/Creatinine Ratio Glucose Calculated Osmolality Lactic Acid Calcium Corrected Calcium Total Bilirubin AST ALT Alkaline Phosphatase Troponin I Total Protein Albumin Globulin Albumin/Globulin Ratio 03/07/25 03/07/25 03/07/25 03:10 03:10 03:10 WBC RBC Hgb Hct MCV MCH 27.5 MCHC Cancelled 31.5 RDW Std Deviation Cancelled 73.1 H Plt Count Cancelled Neut % (Auto) Lymph % (Auto) Pike % (Auto) Eos % (Auto) Baso % (Auto) Neut # (Auto) Lymph # (Auto) Pike # (Auto) Eos # (Auto) Baso # (Auto) Immature Gran # (Auto) Absolute Nucleated RBC Immature Gran % Nucleated RBC % Sodium Potassium Chloride Carbon Dioxide Anion Gap BUN Creatinine Estim Creat Clear Calc eGFR BUN/Creatinine Ratio Glucose Calculated Osmolality Lactic Acid Calcium Corrected Calcium Total Bilirubin AST ALT Alkaline Phosphatase Troponin I Total Protein Albumin Globulin Albumin/Globulin Ratio 03/07/25 03/07/25 03/07/25 03:10 03:10 03:10 WBC RBC Hgb Hct MCV MCH MCHC RDW Std Deviation Plt Count 301 Neut % (Auto) Cancelled 68 Lymph % (Auto) Cancelled 18 Pike % (Auto) Cancelled Eos % (Auto) Baso % (Auto) Neut # (Auto) Lymph # (Auto) Pike # (Auto) Eos # (Auto) Baso # (Auto) Immature Gran # (Auto) Absolute Nucleated RBC Immature Gran % Nucleated RBC % Sodium Potassium Chloride Carbon Dioxide Anion Gap BUN Creatinine Estim Creat Clear Calc eGFR BUN/Creatinine Ratio Glucose Calculated Osmolality Lactic Acid Calcium Corrected Calcium Total Bilirubin AST ALT Alkaline Phosphatase Troponin I Total Protein Albumin Globulin Albumin/Globulin Ratio 03/07/25 03/07/25 03/07/25 03:10 03:10 03:10 WBC RBC Hgb Hct MCV MCH MCHC RDW Std Deviation Plt Count Neut % (Auto) Lymph % (Auto) Pike % (Auto) 10 Eos % (Auto) Cancelled 3 Baso % (Auto) Cancelled 1 Neut # (Auto) Cancelled Lymph # (Auto) Pike # (Auto) Eos # (Auto) Baso # (Auto) Immature Gran # (Auto) Absolute Nucleated RBC Immature Gran % Nucleated RBC % Sodium Potassium Chloride Carbon Dioxide Anion Gap BUN Creatinine Estim Creat Clear Calc eGFR BUN/Creatinine Ratio Glucose Calculated Osmolality Lactic Acid Calcium Corrected Calcium Total Bilirubin AST ALT Alkaline Phosphatase Troponin I Total Protein Albumin Globulin Albumin/Globulin Ratio 03/07/25 03/07/25 03/07/25 03:10 03:10 03:10 WBC RBC Hgb Hct MCV MCH MCHC RDW Std Deviation Plt Count Neut % (Auto) Lymph % (Auto) Pike % (Auto) Eos % (Auto) Baso % (Auto) Neut # (Auto) 4.9 Lymph # (Auto) Cancelled 1.3 Pike # (Auto) Cancelled 0.7 Eos # (Auto) Cancelled Baso # (Auto) Immature Gran # (Auto) Absolute Nucleated RBC Immature Gran % Nucleated RBC % Sodium Potassium Chloride Carbon Dioxide Anion Gap BUN Creatinine Estim Creat Clear Calc eGFR BUN/Creatinine Ratio Glucose Calculated Osmolality Lactic Acid Calcium Corrected Calcium Total Bilirubin AST ALT Alkaline Phosphatase Troponin I Total Protein Albumin Globulin Albumin/Globulin Ratio 03/07/25 03/07/25 03/07/25 03:10 03:10 03:10 WBC RBC Hgb Hct MCV MCH MCHC RDW Std Deviation Plt Count Neut % (Auto) Lymph % (Auto) Pike % (Auto) Eos % (Auto) Baso % (Auto) Neut # (Auto) Lymph # (Auto) Pike # (Auto) Eos # (Auto) 0.2 Baso # (Auto) Cancelled 0.0 Immature Gran # (Auto) Cancelled 0.04 H Absolute Nucleated RBC Cancelled Immature Gran % Nucleated RBC % Sodium Potassium Chloride Carbon Dioxide Anion Gap BUN Creatinine Estim Creat Clear Calc eGFR BUN/Creatinine Ratio Glucose Calculated Osmolality Lactic Acid Calcium Corrected Calcium Total Bilirubin AST ALT Alkaline Phosphatase Troponin I Total Protein Albumin Globulin Albumin/Globulin Ratio 03/07/25 03/07/25 03/07/25 03:10 03:10 03:10 WBC RBC Hgb Hct MCV MCH MCHC RDW Std Deviation Plt Count Neut % (Auto) Lymph % (Auto) Pike % (Auto) Eos % (Auto) Baso % (Auto) Neut # (Auto) Lymph # (Auto) [place]ike # (Auto) Eos # (Auto) Baso # (Auto) Immature Gran # (Auto) Absolute Nucleated RBC 0.00 Immature Gran % Cancelled 1 H Nucleated RBC % Cancelled 0 Sodium Potassium Chloride Carbon Dioxide Anion Gap BUN Creatinine Estim Creat Clear Calc eGFR BUN/Creatinine Ratio Glucose Calculated Osmolality Lactic Acid 1.0 Calcium Corrected Calcium Total Bilirubin AST ALT Alkaline Phosphatase Troponin I Total Protein Albumin Globulin Albumin/Globulin Ratio 03/07/25 04:03 WBC RBC Hgb Hct MCV MCH MCHC RDW Std Deviation Plt Count Neut % (Auto) Lymph % (Auto) Pike % (Auto) Eos % (Auto) Baso % (Auto) Neut # (Auto) Lymph # (Auto) Pike # (Auto) Eos # (Auto) Baso # (Auto) Immature Gran # (Auto) Absolute Nucleated RBC Immature Gran % Nucleated RBC % Sodium 142 Potassium 4.0 Chloride 106 Carbon Dioxide 27.0 Anion Gap 9 BUN < 5 L Creatinine 0.4 L Estim Creat Clear Calc 229.3 eGFR > 60 BUN/Creatinine Ratio 13 Glucose 84 Calculated Osmolality 279 Lactic Acid Calcium 9.4 Corrected Calcium 10.0 Total Bilirubin 0.2 L AST 13 ALT < 7 L Alkaline Phosphatase 99 Troponin I 0.020 Total Protein 6.7 Albumin 3.2 L Globulin 3.5 Albumin/Globulin Ratio 0.9 L Quality Measures Quality Measures sepsis Current suspected stage: ruled out (does not meet sepsis criteria) Possible source: pulmonary Blood cultures ordered: yes Antibiotic ordered: Yes and comfort care/end of life Assessment & Plan Assessment Current Active Medications: Generic Name Dose Route Start Last Admin Trade Name Freq PRN Reason Stop Dose Admin Acetaminophen 650 mg 03/07/25 05:14 Acetaminophen Supp 650 Mg Supp [place] 04/06/25 05:14 Q6H PRN Fever >100.4 or Pain 1-3 Hydrocodone Bitart/Acetaminophen 1 tab 03/07/25 05:06 Hydrocodone/Apap 10/325 Tab GT 03/12/25 05:05 Q4HR PRN PAIN SCALE 7-10 (Severe Albuterol/Ipratropium 3 ml 03/07/25 05:15 Albuterol/Ipratropium (Duoneb) Rt [place] 3 Ml Nebu INH 04/06/25 05:14 Q6HRRT PRN Wheezing Atorvastatin Calcium 40 mg 03/07/25 21:00 Atorvastatin Calcium 20 Mg Tablet GT 04/06/25 20:59 HS RADHA Baclofen 20 mg 03/07/25 07:25 03/07/25 09:42 Baclofen 10 Mg Tablet GT 04/06/25 05:14 Not Given Q6H RADHA Bisacodyl 10 mg 03/07/25 05:15 Bisacodyl 10 Mg Supp [place] 04/06/25 05:14 QDAY PRN CONSTIPATION Protocol Dextrose 25 ml 03/07/25 05:15 Dextrose 50%-Water Inj 50 Ml Syringe IV 04/06/25 05:14 Q15MIN PRN BG 50-70 responsive npo pt Dextrose 50 ml 03/07/25 05:15 Dextrose 50%-Water Inj 50 Ml Syringe IV 04/06/25 05:14 Q15MIN PRN BG <50 OR BG <70 & pt unresponsive Diazepam 5 mg 03/07/25 09:00 03/07/25 08:54 Diazepam 5 Mg Tablet GT 03/12/25 08:59 5 mg BID RADHA Administration Gabapentin 400 mg 03/07/25 06:00 03/07/25 06:53 Gabapentin 100 Mg Capsule GT 04/06/25 05:59 400 mg TID RADHA Administration Glucagon 1 mg 03/07/25 05:15 Glucagon Inj 1 Mg Vial IM Q15MIN PRN BG <70, and no IV access Guaifenesin 200 mg 03/07/25 08:40 Guaifenesin Syrup 200 Mg/10 Ml Udc GT 04/06/25 05:14 Q4H PRN congestion/cough Protocol Meropenem 1,000 mg/ Sodium 50 mls @ 100 mls/hr 03/07/25 06:00 Chloride IV 03/14/25 05:59 Q8HR RADHA Ciprofloxacin/Dextrose 400 mg in 200 mls @ 200 mls/hr 03/07/25 05:15 Cipro Ivpb IV 03/14/25 05:14 Q12HR RADHA Insulin Human Lispro 0 unit 03/07/25 07:30 03/07/25 08:10 Insulin Lispro (Admelog) 1 Unit/0.01 Ml Unit SC 04/06/25 07:29 Not Given ACHS RADHA Protocol Lactulose 10 gm 03/07/25 09:00 03/07/25 08:57 Lactulose Syrup 20 Gm/30 Ml Udc GT 04/06/25 08:59 10 gm QDAY RADHA Administration Protocol Levetiracetam 1,500 mg 03/07/25 09:00 03/07/25 08:55 Levetiracetam Inj 100 Mg/Ml Vial 5ml IVP 04/06/25 08:59 1,500 mg Q12HR RADHA Administration Metoclopramide HCl 10 mg 03/07/25 08:37 Metoclopramide Inj 5 Mg/Ml Vial 2 Ml IVP 04/06/25 08:36 Q8HR PRN Vomiting Protocol Midodrine 5 mg 03/07/25 08:40 Midodrine 5 Mg Tablet GT 04/06/25 05:59 TID PRN SBP>90 and DBP>50 Ondansetron HCl 4 mg 03/07/25 05:06 Ondansetron Inj 2 Mg/Ml Inj 2 Ml IVP 04/06/25 05:05 Q6H PRN NAUSEA OR VOMITING Protocol Oxycodone/Acetaminophen 1 tab 03/07/25 05:06 Oxycodone/Apap 5/325 Tablet GT 03/12/25 05:05 Q6H PRN PAIN SCALE 4-6 (Moderate Pantoprazole Sodium 40 mg 03/07/25 09:00 03/07/25 08:54 Pantoprazole Inj 40 Mg Vial IVP 04/06/25 08:59 40 mg QDAY RADHA Administration Plan Patient is a 29-year-old male with 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 #Hypothermia #Fluctuating fever of unknown origin Presented with rectal temp of 93F, increased to 100.6F within a few hours. Concern for hypothalamic dysregulation possibly secondary to vasculitis. Not improved despite extensive antibiotic regimen since previous admissions, unlikely infection related per ID. Plan: - Consulted neurologist Dr. Burns regarding possible autonomic dysregulation, appreciate recommendations: did not recommend starting IV steroids at this time. - Valencia harris - Tylenol PRN #MDR pneumonia, likely ventilator associated #Chronic mucus plugging Per last admission, suspect possibly multidrug-resistant strains of Pseudomonas due to inadequate duration of antibiotic treatment upon comparison of CTA chest 3 months apart Multiple sputum cultures grew different organisms including Proteus mirabilis, Pseudomonas aeruginosa, ESBL Klebsiella pneumoniae with different resistances. Had antiobiotic treatment with IV CFX, cefepime, vancomycin, zosyn. Was discharged on 03/06 with ciprofloxacin and meropenem. Plan: - Ciprofloxacin 400 mg BID - Meropenem 1000 mg q8hr - Albuterol/ipatropium 3 mL #Cocaine induced cerebral vasculitis #S/p tracheostomy #S/p PEG tube #Quadraparesis with spastic contractions #Seizures Chronic state. Of note, 02/27 EEG showed diffuse slowing suggestive of a diffuse encephalopathy of metabolic, degenerative, or vascular origin as well as paroxysmal bursts of spike and wave discharges suggesting seizure - Gabapentin 400 mg TID - Keppra 1000 mg BID - Baclofen 20 mg QID - Duonebs prn - Pain regimen: [place] 5 and 10 prn - Wound care following - Oral care daily #Chronic anemia, normocytic Baseline Hgb 7-9. Likely anemia of chronic disease 2/2 chronic vegetative state. 12/20/24 peripheral smear shows severe hypochromic microcytic anemia without hemolysis favoring iron deficiency state. Iron panel 02/14: iron low 50, TIBC low 243, iron sat wnl, unsat iron binding low 193. - CTM Hgb - Transfuse if Hgb <7 #Hypotension, refractory Likely secondary to autonomic dysregulation from vasculitis. - Midodrine 5 mg as needed Health Maintenance Disposition: DVT prophylaxis: GI prophylaxis: valium, prn metoclopramide, prn zofran Bowel prophylaxis: Diet: Jevity CODE STATUS: DNR Patient plan of care was discussed with the resident, Dr. Robbins, and attending physician, Dr. De Luna. Iman Duncan, PGY-1 Attending Provider Attestation/Addendum I have examined the patient, reviewed labs and imaging findings, discussed the case with the resident(s), and reviewed entered orders. I agree with the plan of care as outlined in this note, with these additional summaries/recommendations: Patient seen at bedside. Patient is trached and pegged and unfortunately no history can be obtained at this time. Patient was found to have hypothermia on admission with temperature 93.0 ?F. He has been continued on Valencia hugger and is now febrile. DC Valencia hugger start Tylenol as needed for fever. Continue broad- spectrum antibiotics for multidrug-resistant pneumonia. Continue Keppra for seizure disorder and midodrine for chronic hypotension. Continue home baclofen & diazepam. Please see residents note for additional details and management. Dr. Calixto MD
[2025-03-07] MEDS: BACLOFEN 10 MG TABLET 20 MG GT ×2 (14:48→19:21)
--- NOTE | 2025-03-07 15:03 | PC.DIETICIAN ---
RD recommendations: same formula: Jevity 1.5 at 30 ml/hr via PEG tube by pump. Advance 10 ml every 8 hrs to goal rate of 68 ml/hr x 24 hrs. If no IV fluids, water flushes of 50 ml/hr (per MD). Provides: 2448 kcal(45kcal/kg), 104 gprot (1.9g/kg), 1240 ml free water, 1632 ml total volume. *If doesn't tolerate TF, consider switch to Vital 1.2 semi-elemental formula Thank you
[2025-03-07 15:04] LABS: C-Reactive Protein 7.4 mg/dL (0.0-0.9)
[2025-03-07 16:37] LABS: Sed Rate (ESR) 79 mm/hr (0-15)
--- NOTE | 2025-03-07 17:51 | PD.RESCONSUL ---
HPI Data of Consult Requesting Physician: Cristal Demarco MD Admitting Provider: Cristal Demarco MD Attending Provider: Cristal Demarco MD Primary Care Provider: Paul Nichols MD Consult Narrative History of present illness: History limited at this time because of chronic vegetation status and pt is poor historian. Most of history obtained from chart review. This is a 29-year-old male with a complex medical history including cocaine-induced cerebral vasculitis, seizures, chronic respiratory failure (status post tracheostomy and PEG tube), anemia, and quadriparesis, presented to ED with a rectal temperature of 93 found during rounds at [facility]. He was admitted on 02/21/2025 for sepsis secondary to pneumonia. This occurred only three days after a recent discharge for ventilator-associated pneumonia and leg cellulitis. Upon admission, he was started on IV cefepime with initial improvement, and sputum cultures grew ESBL Klebsiella, Pseudomonas, and Proteus. However, on the day of planned discharge, the patient acutely decompensated with fever of 104?F, severe tachycardia, hypoglycemia, and elevated lactic acid (9.2), prompting urgent ICU admission. In the ICU, he was intubated and sedated. Imaging revealed bilateral pneumonia, and due to persistent febrile episodes and hypotension despite broad-spectrum antibiotics (vancomycin, cefepime, ceftriaxone, Zosyn), there was growing concern for multidrug-resistant (MDR) Pseudomonas aeruginosa pneumonia, supported by prior ET cultures and worsening radiographic findings. Consequently, he was started on a 14-day course of dual antipseudomonal therapy with IV meropenem and IV ciprofloxacin, which resulted in improved hemodynamic stability. Despite this, the patient developed recurrent, refractory post-tussive emesis that was unresponsive to Zofran and Reglan. These episodes necessitated PEG tube suctioning, ventilatory support for tracheostomy cuff inflation, and eventually were managed successfully with PO diazepam and scheduled baclofen, targeting GABAergic pathways. Tube feeding (Jevity 1.5) was resumed at a reduced rate and carefully titrated. The patient also showed signs of electrolyte imbalances (hypokalemia, hypomagnesemia, hypophosphatemia), which were aggressively corrected throughout hospitalization.Throughout the hospital stay, further investigations, including CT, CTA, CTAP, and EEG, were completed. EEG results were abnormal, suggesting diffuse encephalopathy and seizure activity, although no changes were made to his antiepileptic regimen. Spinal MRI was attempted multiple times but could not be completed due to coughing fits. By 03/06, the patient had completed 7 days of dual antibiotic therapy, remained afebrile, hemodynamically stable, and free from further emesis. His pneumonia and sepsis were considered to be improving under the ongoing treatment. He was discharged back to the subacute facility in stable condition, bedbound and back to his neurologic baseline, with instructions to complete the 14-day antibiotic course and to begin chronic suppressive therapy with monthly nebulized tobramycin to reduce the risk of MDR Pseudomonas recurrence. Medications including metoprolol were held due to hypotension, and antiemetic and antispasmodic regimens were adjusted accordingly. ED Course: Pt arrived with the temperature T93.9, BP 92/56, HR 74, RR 26, satting 100% on MV at 35% FiO2. Bedside COVID was negative. Labs are relatively at baseline with WBC 7.3, Hgb 8.1, PLT 301, creatinine 0.4. Normal renal function, LFTs, electrolytes, and lactic acid. EKG also unchanged and showed sinus rhythm without acute ST changes. CXR improved since last admission, although possible right middle lobe pneumonia present. While in ED, he was immediately started on Valencia hugger, continued on mechanical ventilation. PMHx: As above Surgeries: Unable to obtain at this time. Meds: IPRATROPIUM-ALBUTEROL, CIPROFLOXACIN IN 5% DEXTROSE, BACLOFEN, METOCLOPRAMIDE HCL, GABAPENTIN, THIAMINE HCL (VITAMIN B1), MEROPENEM, INSULIN LISPRO, LEVETIRACETAM, ONDANSETRON HCL (PF), DIAZEPAM, ALBUTEROL SULFATE, ASCORBIC ACID (VITAMIN C), ATORVASTATIN, BISACODYL [DULCOLAX], GUAIFENESIN [TERRENCE-TUSSIN], LANSOPRAZOLE, MIDODRINE, MAGNESIUM HYDROXIDE [MILK OF MAGNESIA], MORPHINE CONCENTRATE, MULTIVITAMIN, POLYETHYLENE GLYCOL 3350, FLEET ENEMA, ACETAMINOPHEN, LACTULOSE. Allergies:NKDA Family Hx:Noncontributory at this time Social Hx: Hx of drug use including cocaine cc:: cc: Cristal Demaroc MD Review of Systems Review of Systems Narrative Review of Systems: Unable to obtain 12 point ROS at this time as pt is nonverbal Exam Vital Signs Temp Pulse Resp BP Pulse Ox O2 Del Method FiO2 100.6 F H 112 H 24 H 106/58 L 100 Mechanical Ventilation 35 03/07/25 07:20 03/07/25 16:45 03/07/25 07:20 03/07/25 10:34 03/07/25 16:45 03/07/25 07:20 03/07/25 16:45 Narrative Exam General: Awake and responsive to voice by eye tracking. Nonverbal. Thin male in no acute distress with tracheostomy. HEENT: NCAT, PERRLA, EOMI, some slight horizontal nystagmus noted, MMM, anicteric conjunctivae. CVS: Regular rate and rhythm. Normal S1 and S2. No M/R/G. Resp: Tracheostomy tube in place. Tachypneic. Coarse breathing B/L. No rhonchi, rales, crackles or wheezing. Abd: PEG tube in place. Soft, non-tender, non-distended. BS+ in all 4 quadrants. MSK: Upper and lower extremities are stiff with decerebrate posturing. Neuro: Limited exam due to medical condition. Can answer yes or no via blinking signals when coached. Results Labs 03/08/25 04:55 03/08/25 04:55 Labs: Short CBC 03/07/25 03/07/25 03/07/25 Range/Units 03:10 03:10 03:10 WBC Cancelled 7.3 Hgb Cancelled 8.1 L Hct Cancelled Plt Count 03/07/25 03/07/25 Range/Units 03:10 03:10 WBC Hgb Hct 25.7 L Plt Count Cancelled 301 BMP 03/07/25 04:03 Sodium 142 Potassium 4.0 Chloride 106 Carbon Dioxide 27.0 BUN < 5 L Creatinine 0.4 L Glucose 84 Calcium 9.4 Cardiac Enzymes 03/07/25 Range/Units 04:03 Troponin I 0.020 (0.0-0.045) ng/mL Liver Function 03/07/25 Range/Units 04:03 Total Bilirubin 0.2 L (0.3-1.2) mg/dL AST 13 (0-34) U/L ALT < 7 L (10-49) U/L Alkaline Phosphatase 99 (46-116) U/L Albumin 3.2 L (3.5-5.0) gm/dL Quality Measures Quality Measures sepsis Current suspected stage: sepsis Possible source: pulmonary Blood cultures ordered: yes Antibiotic ordered: Yes and comfort care/end of life Medications Home Medications and Allergies Allergies Allergy/AdvReac Type Severity Reaction Status Date / Time No Known Allergies Allergy Unverified 10/23/24 09:16 Visit Medications Acetaminophen (Acetaminophen Supp 650 Mg Supp) 650 mg CA Q6H PRN PRN Reason: Fever >100.4 or Pain 1-3 Stop: 04/06/25 05:14 Hydrocodone Bitart/Acetaminophen (Hydrocodone/Apap 10/325 Tab) 1 tab GT Q4HR PRN PRN Reason: PAIN SCALE 7-10 (Severe Stop: 03/12/25 05:05 Albuterol/Ipratropium (Albuterol/Ipratropium (Duoneb) Rt [place] 3 Ml Nebu) 3 ml INH Q6HRRT PRN PRN Reason: Wheezing Stop: 04/06/25 05:14 Atorvastatin Calcium (Atorvastatin Calcium 20 Mg Tablet) 40 mg GT HS RADHA Stop: 04/06/25 20:59 Baclofen (Baclofen 10 Mg Tablet) 20 mg GT Q6H RADHA Stop: 04/06/25 05:14 Last Admin: 03/07/25 14:48 Dose: 20 mg Bisacodyl (Bisacodyl 10 Mg Supp) 10 mg CA QDAY PRN; Protocol PRN Reason: CONSTIPATION Stop: 04/06/25 05:14 Cadexomer Iodine (Cadexomer Iodine Gel 40 Gm Tube) 0 gm TOP HS RADHA Stop: 03/14/25 20:59 Dextrose (Dextrose 50%-Water Inj 50 Ml Syringe) 25 ml IV Q15MIN PRN PRN Reason: BG 50-70 responsive npo pt Stop: 04/06/25 05:14 Dextrose (Dextrose 50%-Water Inj 50 Ml Syringe) 50 ml IV Q15MIN PRN PRN Reason: BG <50 OR BG <70 & pt unresponsive Stop: 04/06/25 05:14 Diazepam (Diazepam 5 Mg Tablet) 5 mg GT BID RADHA Stop: 03/12/25 08:59 Last Admin: 03/07/25 08:54 Dose: 5 mg Gabapentin (Gabapentin 100 Mg Capsule) 400 mg GT TID RADHA Stop: 04/06/25 05:59 Last Admin: 03/07/25 14:49 Dose: 400 mg Glucagon (Glucagon Inj 1 Mg Vial) 1 mg IM Q15MIN PRN PRN Reason: BG <70, and no IV access Guaifenesin (Guaifenesin Syrup 200 Mg/10 Ml Udc) 200 mg GT Q4H PRN; Protocol PRN Reason: congestion/cough Stop: 04/06/25 05:14 Meropenem 1,000 mg/ Sodium (Chloride) 50 mls @ 100 mls/hr IV Q8HR [facility] Stop: 03/14/25 14:29 Last Admin: 03/07/25 14:49 Dose: 100 mls/hr Ciprofloxacin/Dextrose (Cipro Ivpb) 400 mg in 200 mls @ 200 mls/hr IV Q12HR [facility] Stop: 03/14/25 20:59 Insulin Human Lispro (Insulin Lispro (Admelog) 1 Unit/0.01 Ml Unit) 0 unit SC Q6HR RADHA; Protocol Stop: 04/06/25 17:59 Lactulose (Lactulose Syrup 20 Gm/30 Ml Udc) 10 gm GT QDAY RADHA; Protocol Stop: 04/06/25 08:59 Last Admin: 03/07/25 08:57 Dose: 10 gm Levetiracetam (Levetiracetam Inj 100 Mg/Ml Vial 5ml) 1,500 mg IVP Q12HR [facility] Stop: 04/06/25 08:59 Last Admin: 03/07/25 08:55 Dose: 1,500 mg Metoclopramide HCl (Metoclopramide Inj 5 Mg/Ml Vial 2 Ml) 10 mg IVP Q8HR PRN; Protocol PRN Reason: Vomiting Stop: 04/06/25 08:36 Midodrine (Midodrine 5 Mg Tablet) 5 mg GT TID PRN PRN Reason: SBP>90 and DBP>50 Stop: 04/06/25 05:59 Ondansetron HCl (Ondansetron Inj 2 Mg/Ml Inj 2 Ml) 4 mg IVP Q6H PRN; Protocol PRN Reason: NAUSEA OR VOMITING Stop: 04/06/25 05:05 Oxycodone/Acetaminophen (Oxycodone/Apap 5/325 Tablet) 1 tab GT Q6H PRN PRN Reason: PAIN SCALE 4-6 (Moderate Stop: 03/12/25 05:05 Pantoprazole Sodium (Pantoprazole Inj 40 Mg Vial) 40 mg IVP QDAY RADHA Stop: 04/06/25 08:59 Last Admin: 03/07/25 08:54 Dose: 40 mg Discontinued Medications Atorvastatin Calcium (Atorvastatin Calcium 20 Mg Tablet) 40 mg PO HS RADHA Stop: 04/06/25 20:59 Baclofen (Baclofen 10 Mg Tablet) 20 mg PO Q6H RADHA Stop: 04/06/25 05:14 Last Admin: 03/07/25 06:52 Dose: 20 mg Guaifenesin (Guaifenesin Syrup 200 Mg/10 Ml Udc) 200 mg PO Q4H PRN; Protocol PRN Reason: congestion/cough Stop: 04/06/25 05:14 Ciprofloxacin/Dextrose (Cipro Ivpb) 400 mg in 200 mls @ 200 mls/hr IV X1 ONE Stop: 03/07/25 06:44 Last Infusion: 03/07/25 07:39 Dose: Infused Meropenem 1,000 mg/ Sodium (Chloride) 50 mls @ 100 mls/hr IV X1 ONE Stop: 03/07/25 06:14 Last Infusion: 03/07/25 07:11 Dose: Infused Insulin Human Lispro (Insulin Lispro (Admelog) 1 Unit/0.01 Ml Unit) 0 unit SC ACHS [facility]; Protocol Stop: 04/06/25 07:29 Last Admin: 03/07/25 17:15 Dose: Not Given Lactulose (Lactulose Syrup 20 Gm/30 Ml Udc) 10 gm PO QDAY [facility]; Protocol Stop: 04/06/25 08:59 Midodrine (Midodrine 5 Mg Tablet) 5 mg PO TID PRN PRN Reason: SBP>90 and DBP>50 Stop: 04/06/25 05:59 Assessment & Plan Plan Assessment: This is a 29-year-old male with a complex medical history including cocaine-induced cerebral vasculitis, seizures, chronic respiratory failure (status post tracheostomy and PEG tube), anemia, and quadriparesis, presented to ED with a rectal temperature of 93 found [facility] rounds [facility]. #Hx seizure disorder No signs of seizure activities. No reported recent seizure activities Recently discharged Plan: ? 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 Autonomic dysfunction Hypothermia as low as 93.0 Unsure if there is chronic autonomic dysfunction from cerebral vasculitis At this time, alternating temperatures of hypothermia and hyperthermia (Fever) could also represent infection at this time Will not recommend initiating steroids at this time as this can pose more risk for infection if this is true autonomic dysfunction BB can be used for therapy, however this can lower HR and BP Other approach can be to monitor temperatures at this time Plan: ? DuoNebs PRN ? GUAIFENESIN 200 mg q.4h. PRN ? BACLOFEN 20 mg q.6h. ? DIAZEPAM 5 mg BID ? GABAPENTIN 400 mg TID ? LACTULOSE 10 mg q. day ? ONDANSETRON 4 mg q.6h. PRN ? PANTOPRAZOLE 40 mg q. day ? Pain control ? Continue PEG tube feeds ? Wound care ? Treat underlying infection ? Consider beta-blockers if there is high suspicion for autonomic dysfunction #Chronic normocytic anemia #Hyperlipidemia #Hypothermia #MDR pneumonia #Hypotension Above handled by primary hospitalist team Patient seen and care discussed with my attending physician, Dr. Grant Matias, PGY-2 This document was transcribed using voice recognition technology. Minor inaccuracies may be present. Attending Provider Attestation/Addendum I personally seen and examined patient at the bedside and I agree with resident's findings, assessment and plan of care. 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 Would consider trying beta-michelle at a low dose without affecting blood pressure or heart rate much at point. Steroids are not recommended because of risk of infection. He has already been on gabapentin and baclofen which have not helped much.
[2025-03-07] MEDS: CADEXOMER IODINE GEL 40 GM TUBE TOP (20:19)
[2025-03-07] MEDS: ATORVASTATIN CALCIUM 20 MG TABLET 40 MG GT (20:19)
[2025-03-07] MEDS: levETIRAcetam INJ 100 MG/ML VIAL 5ML 1000 MG IVP (20:32)
[2025-03-08] VITALS (13 sets, daily range): BP systolic 94–130; BP diastolic 67–92; PULSE 73–147; RESP 17–40; TEMP 35–38.5; O2SAT 97–100; BMI 18.2
[2025-03-08] MEDS: BACLOFEN 10 MG TABLET 20 MG GT ×4 (00:57→19:24)
[2025-03-08] MEDS: MEROPENEM INJ 1,000 MG in SODIUM CHLORIDE 0.9% (Popper) 50 ML 100 MG IV ×3 (05:08→21:05)
[2025-03-08 05:26] LABS: Basophils # (Auto) 0.0 Thou/mm3 (0.0-0.2); Basophils % (Auto) 1 % (0-2.5); Eosinophils # (Auto) 0.2 Thou/mm3 (0.0-0.5); Eosinophils % (Auto) 2 % (0-10); Hematocrit 26.6 % (41.0-53.0); Immature Granulocytes Auto 0.07 Thou/mm3 (0.00-0.00); Lymphocytes # (Auto) 1.5 Thou/mm3 (1.0-4.8); Lymphocytes % (Auto) 22 % (10-50); Mean Corpuscular HGB Conc 30.8 g/dl (31.0-37.0); Mean Corpuscular Hemoglobin 27.0 pg (25.0-35.0); Mean Corpuscular Volume 88 fL (80-100); Monocytes # (Auto) 0.6 Thou/mm3 (0.0-0.8); Monocytes % (Auto) 9 % (0-12); Neutrophils # (Auto) 4.6 Thou/mm3 (1.8-7.7); Neutrophils % (Auto) 65 % (37-80); Nucleated Red Blood Cell # 0.00 Thou/mm3 (0.00-0.00); Nucleated Red Blood Cell % 0 /100 WBC (0); Platelet Count 326 Thou/mm3 (140-440); RDW Standard Deviation 72.9 fL (35.1-43.9); Red Blood Count 3.04 Miln/mm3 (4.50-5.90); White Blood Count 7.0 Thou/mm3 (3.8-10.6)
[2025-03-08 05:29] LABS: Hemoglobin 8.2 g/dL (13.5-16.0)
[2025-03-08] MEDS: GABAPENTIN 100 MG CAPSULE 400 MG GT ×3 (05:47→21:33)
[2025-03-08 06:03] LABS: Alanine Aminotransferase < 7 U/L (10-49); Albumin, Serum 3.4 gm/dL (3.5-5.0); Albumin/Globulin Ratio 0.9 (1.2-2.2); Alkaline Phosphatase 108 U/L (46-116); Anion Gap 8 (7-16); Aspartate Amino Transferase 12 U/L (0-34); BUN/Creatinine Ratio 28 Ratio (12-20); Bilirubin,Total 0.2 mg/dL (0.3-1.2); Blood Urea Nitrogen 11 mg/dL (9-23); Calcium 10.0 mg/dL (8.3-10.6); Calcium (Corrected) 10.5 mg/dL (8.5-10.1); Carbon Dioxide 28.3 mMol/L (20.0-31.0); Chloride 104 mMol/L (98-107); Creatinine (Component) 0.4 mg/dL (0.6-1.3); Estimated Creatinine Clearance 229.3 mL/min (>60); Globulin 3.7 gm/dL (2.3-3.5); Glucose 75 mg/dL (74-106); Magnesium 1.6 mg/dL (1.6-2.6); Osmolality,Calculated 277 (275-295); Phosphorous 2.5 mg/dL (2.4-5.1); Potassium 3.5 mMol/L (3.4-5.1); Sodium 140 mMol/L (136-145); Total Protein 7.1 gm/dL (5.7-8.2); eGFR > 60 See Note
[2025-03-08] MEDS: Magnesium Sulfate 4 GM Ivpb 4 GM/50 ML BAG IV (07:52)
--- NOTE | 2025-03-08 09:31 | PC.SS ---
Follow up note: Pt is from [facility] and will return upon dc. Pt is on IV antibiotic.
[2025-03-08] MEDS: CIPROFLOXACIN/D5w 400 MG IVPB 400 MG/200 ML BAG 200 MG IV ×2 (10:36→20:12)
[2025-03-08] MEDS: METOPROLOL TARTRATE 25 MG TABLET PO (10:37)
[2025-03-08] MEDS: LACTULOSE SYRUP 20 GM/30 ML UDC 10 GM GT (10:44)
[2025-03-08] MEDS: levETIRAcetam INJ 100 MG/ML VIAL 5ML 1000 MG IVP ×2 (10:44→21:04)
[2025-03-08] MEDS: DIAZEPAM 5 MG TABLET GT ×2 (10:44→20:19)
[2025-03-08] MEDS: SODIUM CL RT SOL 3% 4 ML NEBU (NON-FORMULARY) INH ×2 (12:11→19:01)
--- NOTE | 2025-03-08 13:13 | ESPR_ITS ---
<Statement entered by Darryl Robbins MD - 03/08/25 13:51> Patient seen and examined in hospital bed in chronic state, trach/peg and non- verbal. Patient continues to have febrile episodes which are attributed to chronic respiratory infection. Neurology was consulted regarding potential steroid therapy for autonomic dysfunction; however, due to the patient's heightened risk for infection the following was not recommended. Will continue to treat the patient with IV antibiotic regimen for the MDR Pseudomonal infection and monitor the patient for any acute changes. If patient remains afebrile within the next 24 hours will consider discharging back to subacute facility. I have personally seen and examined the patient. I agree with the resident's assessment and plan as documented below. Darryl Robbins DO PGY-2 Internal Medicine - [facility] Documentation for date of: 03/08/25 Subjective Subjective Interval history: Overnight temperature fluctuated between 93.9 and 100.6 Fahrenheit, treated with Valencia hugger and cooling measures accordingly. Consulted neurology who does not recommend steroids at this time, can start on beta-blockers instead. Otherwise recommend conservative approach. Will continue with conservative treatment for temperature regulation. Will continue antibiotics per previous discharge from ICU. Blood cultures have been negative for 24 hours. Exam Vital Signs Temp Pulse Resp BP Pulse Ox O2 Del Method FiO2 95.0 F L 88 22 H 117/67 100 Mechanical Ventilation 35 03/08/25 08:00 03/08/25 12:12 03/08/25 12:12 03/08/25 10:37 03/08/25 12:12 03/08/25 08:00 03/08/25 12:12 Narrative Exam Physical Exam General: Awake and in no acute distress. Conversational and non-toxic appearing. Nonverbal, opens eyes spontaneously, frail. HEENT: Normocephalic, atraumatic, mucous membranes moist. Tracheostomy midline, no bleeding noted around trach. Heart: Regular rate and rhythm, normal S1 and S2, no murmurs appreciated. Lungs: Clear to auscultation with no wheezing or crackles. Abdomen: Soft, nondistended, nontender, positive bowel sounds. No guarding or rebound tenderness. PEG tube in place in center of abdomen without eyrthema no purulent drainage, some crusting around tube. Neurologic: Quadraparesis, extremities contorted, and nonverbal at baseline with eyes opening spontaneously. Able to track with eyes. Extremities: Chronic wounds on bilateral knees. Objective Labs 03/09/25 05:00 03/09/25 05:00 Labs: Laboratory Results - last 24 hr 03/07/25 03/07/25 03/08/25 03:10 14:29 04:55 WBC 7.0 RBC 3.04 L Hgb 8.2 L Hct 26.6 L MCV 88 MCH 27.0 MCHC 30.8 L RDW Std Deviation 72.9 H Plt Count 326 Neut % (Auto) 65 Lymph % (Auto) 22 [place] % (Auto) 9 Eos % (Auto) 2 Baso % (Auto) 1 Neut # (Auto) 4.6 Lymph # (Auto) 1.5 [place] # (Auto) 0.6 Eos # (Auto) 0.2 Baso # (Auto) 0.0 Immature Gran # (Auto) 0.07 H Absolute Nucleated RBC 0.00 Immature Gran % 1 H Nucleated RBC % 0 ESR 79 H Sodium 140 Potassium 3.5 D Chloride 104 Carbon Dioxide 28.3 Anion Gap 8 BUN 11 Creatinine 0.4 L Estim Creat Clear Calc 229.3 eGFR > 60 BUN/Creatinine Ratio 28 H Glucose 75 Calculated Osmolality 277 Calcium 10.0 Corrected Calcium 10.5 H Phosphorus 2.5 Magnesium 1.6 Total Bilirubin 0.2 L AST 12 ALT < 7 L Alkaline Phosphatase 108 C-Reactive Prot, Quant 7.4 H Total Protein 7.1 Albumin 3.4 L Globulin 3.7 H Albumin/Globulin Ratio 0.9 L Quality Measures Quality Measures sepsis Current suspected stage: ruled out (does not meet sepsis criteria at this time) Possible source: pulmonary Blood cultures ordered: yes Antibiotic ordered: Yes and comfort care/end of life Assessment & Plan Assessment Current Active Medications: Generic Name Dose Route Start Last Admin Trade Name Freq PRN Reason Stop Dose Admin Acetaminophen 650 mg 03/07/25 05:14 Acetaminophen Supp 650 Mg Supp [place] 04/06/25 05:14 Q6H PRN Fever >100.4 or Pain 1-3 Hydrocodone Bitart/Acetaminophen 1 tab 03/07/25 05:06 Hydrocodone/Apap 10/325 Tab GT 03/12/25 05:05 Q4HR PRN PAIN SCALE 7-10 (Severe Albuterol/Ipratropium 3 ml 03/07/25 05:15 Albuterol/Ipratropium (Duoneb) Rt [place] 3 Ml Nebu INH 04/06/25 05:14 Q6HRRT PRN Wheezing Atorvastatin Calcium 40 mg 03/07/25 21:00 03/07/25 20:19 Atorvastatin Calcium 20 Mg Tablet GT 04/06/25 20:59 40 mg HS RADHA Administration Baclofen 20 mg 03/07/25 07:25 03/08/25 07:52 Baclofen 10 Mg Tablet GT 04/06/25 05:14 20 mg Q6H RADHA Administration Bisacodyl 10 mg 03/07/25 05:15 Bisacodyl 10 Mg Supp [place] 04/06/25 05:14 QDAY PRN CONSTIPATION Protocol Cadexomer Iodine 0 gm 03/07/25 21:00 03/07/25 20:19 Cadexomer Iodine Gel 40 Gm Tube TOP 03/14/25 20:59 1 applicatio HS RADHA Administration Dextrose 25 ml 03/07/25 05:15 Dextrose 50%-Water Inj 50 Ml Syringe IV 04/06/25 05:14 Q15MIN PRN BG 50-70 responsive npo pt Dextrose 50 ml 03/07/25 05:15 Dextrose 50%-Water Inj 50 Ml Syringe IV 04/06/25 05:14 Q15MIN PRN BG <50 OR BG <70 & pt unresponsive Diazepam 5 mg 03/07/25 09:00 03/08/25 10:44 Diazepam 5 Mg Tablet GT 03/12/25 08:59 5 mg BID RADHA Administration Gabapentin 400 mg 03/07/25 06:00 03/08/25 05:47 Gabapentin 100 Mg Capsule GT 04/06/25 05:59 400 mg TID RADHA Administration Glucagon 1 mg 03/07/25 05:15 Glucagon Inj 1 Mg Vial IM Q15MIN PRN BG <70, and no IV access Guaifenesin 200 mg 03/07/25 08:40 Guaifenesin Syrup 200 Mg/10 Ml Udc GT 04/06/25 05:14 Q4H PRN congestion/cough Protocol Meropenem 1,000 mg/ Sodium 50 mls @ 100 mls/hr 03/07/25 14:30 03/08/25 05:08 Chloride IV 03/14/25 14:29 100 mls/hr Q8HR RADHA Administration Ciprofloxacin/Dextrose 400 mg in 200 mls @ 200 mls/hr 03/07/25 21:00 03/08/25 10:36 Cipro Ivpb IV 03/14/25 20:59 200 mls/hr Q12HR RADHA Administration Insulin Human Lispro 0 unit 03/07/25 18:00 03/08/25 12:00 Insulin Lispro (Admelog) 1 Unit/0.01 Ml Unit SC 04/06/25 17:59 Not Given Q6HR RADHA Protocol Lactulose 10 gm 03/07/25 09:00 03/08/25 10:44 Lactulose Syrup 20 Gm/30 Ml Udc GT 04/06/25 08:59 10 gm QDAY RADHA Administration Protocol Levetiracetam 1,000 mg 03/07/25 21:00 03/08/25 10:44 Levetiracetam Inj 100 Mg/Ml Vial 5ml IVP 04/06/25 20:59 1,000 mg Q12HR RADHA Administration Metoclopramide HCl 10 mg 03/07/25 08:37 Metoclopramide Inj 5 Mg/Ml Vial 2 Ml IVP 04/06/25 08:36 Q8HR PRN Vomiting Protocol Metoprolol Tartrate 25 mg 03/08/25 09:00 03/08/25 10:37 Metoprolol Tartrate 25 Mg Tablet PO 04/07/25 08:59 25 mg BID RADHA Administration Midodrine 5 mg 03/07/25 08:40 Midodrine 5 Mg Tablet GT 04/06/25 05:59 TID PRN SBP>90 and DBP>50 Ondansetron HCl 4 mg 03/07/25 05:06 Ondansetron Inj 2 Mg/Ml Inj 2 Ml IVP 04/06/25 05:05 Q6H PRN NAUSEA OR VOMITING Protocol Oxycodone/Acetaminophen 1 tab 03/07/25 05:06 Oxycodone/Apap 5/325 Tablet GT 03/12/25 05:05 Q6H PRN PAIN SCALE 4-6 (Moderate Pantoprazole Sodium 40 mg 03/07/25 09:00 03/08/25 10:36 Pantoprazole Inj 40 Mg Vial IVP 04/06/25 08:59 40 mg QDAY RADHA Administration Sodium Chloride 4 ml 03/08/25 13:00 03/08/25 12:11 Sodium Cl Rt [place] 3% 4 Ml Nebu (Non-Formulary) INH 04/07/25 12:59 4 ml Q6HRRT RADHA Administration Plan Patient is a 29-year-old male with 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 #Hypothermia #Fluctuating fever of unknown origin Presented with rectal temp of 93F, increased to 100.6F within a few hours. Concern for hypothalamic dysregulation possibly secondary to vasculitis. Not improved despite extensive antibiotic regimen since previous admissions, unlikely infection related per ID. Plan: - Consulted neurologist Dr. Burns regarding possible autonomic dysregulation, appreciate recommendations - Did not recommend starting IV steroids at this time in setting of infection - Start metoprolol 25 mg BID, increase as tolerated - Valenciabraeden harris - Tylenol PRN #MDR pneumonia, likely ventilator associated #Chronic mucus plugging Per last admission, suspect possibly multidrug-resistant strains of Pseudomonas due to inadequate duration of antibiotic treatment upon comparison of CTA chest 3 months apart Multiple sputum cultures grew different organisms including Proteus mirabilis, Pseudomonas aeruginosa, ESBL Klebsiella pneumoniae with different resistances. Had antiobiotic treatment with IV CFX, cefepime, vancomycin, zosyn. Was discharged on 03/06 with ciprofloxacin and meropenum. Plan: - Ciprofloxacin 400 mg BID and meropenum 1000 mg q8hr (02/26-03/12) per ICU - Duonebs prn - Guaifenesin 200 mg q4hr prn - Chest physiotherapy daily #Cocaine induced cerebral vasculitis #S/p tracheostomy #S/p PEG tube #Quadraparesis with spastic contractions #Seizures Chronic state. Of note, 02/27 EEG showed diffuse slowing suggestive of a diffuse encephalopathy of metabolic, degenerative, or vascular origin as well as paroxysmal bursts of spike and wave discharges suggesting seizure - Gabapentin 400 mg TID - IV Keppra 1000 mg BID - Baclofen 20 mg QID - Duonebs prn - Pain regimen: [place] 5 and 10 prn - Wound care following - Oral care daily #Chronic anemia, normocytic Baseline Hgb 7-9. Likely anemia of chronic disease 2/2 chronic vegetative state. 12/20/24 peripheral smear shows severe hypochromic microcytic anemia without hemolysis favoring iron deficiency state. Iron panel 02/14: iron low 50, TIBC low 243, iron sat wnl, unsat iron binding low 193. - CTM Hgb - Transfuse if Hgb <7 #Hypotension, refractory Likely secondary to autonomic dysregulation from vasculitis. - Midodrine 5 mg as needed Health Maintenance Disposition: tele DVT prophylaxis: SCDs GI prophylaxis: valium, prn metoclopramide, prn zofran Bowel prophylaxis: lactulose Diet: Jevity CODE STATUS: DNR Patient plan of care was discussed with the resident, Dr. Robbins, and attending physician, Dr. De Luna. Iman Duncan, PGY-1 Attending Provider Attestation/Addendum I have examined the patient, reviewed labs and imaging findings, discussed the case with the resident(s), and reviewed entered orders. I agree with the plan of care as outlined in this note, with these additional summaries/recommendations: Patient seen at bedside. Patient is trached and pegged and unfortunately no history can be obtained at this time. Patient was found to have hypothermia on admission with temperature 93.0 ?F. He has been placed on Valencia hugger and became febrile. Valencia hugger was discontinued and now this morning patient has mild hypothermia again with temperature 95.0 F. Valencia hugger resumed. Continue Tylenol as needed for fever. At this time patient's temperature remains labile and less likely related to infection and more likely related to central fevers. Continue broad-spectrum antibiotics for multidrug-resistant pneumonia. Continue Keppra for seizure disorder and midodrine for chronic hypotension. Overall prognosis guarded. Continue home baclofen & diazepam. Please see residents note for additional details and management. Dr. Calixto MD
--- NOTE | 2025-03-08 16:20 | PC.SS ---
Pt is from [facility]. Pt is awake. Pt has trach/peg. Pt was admitted for Hypothermia. SS spoke to Milady from [facility] who confirmed pt is on 7 day bedhold and would require PASRR assessment on 03-14-25. Milady confirmed patient's contact information is correct on facesheet. Pt is maximum assistance. Pt is bedbound. Pt transfers using a ila lift. Patient's medical decision maker is his dad, Nasir Qureshi. Patient will return to [facility] upon d/c. D/C plan: Return to [facility] Next of Kin: Nasir Qureshi, father, phone# [phone] PCP: Dr. Nichols Address: Correct on facesheet
--- NOTE | 2025-03-08 19:10 | PC.NURSE ---
CALLED [facility] TO SEND LIST OF MEDICATION.
[2025-03-08] MEDS: ACETAMINOPHEN SUPP 650 MG SUPP PR (19:25)
[2025-03-08] MEDS: METOPROLOL TARTRATE 25 MG TABLET 50 MG PO (19:25)
[2025-03-08] MEDS: ATORVASTATIN CALCIUM 20 MG TABLET 40 MG GT (20:19)
[2025-03-08] MEDS: CADEXOMER IODINE GEL 40 GM TUBE TOP (20:20)
--- NOTE | 2025-03-08 23:04 | ESPR_ITS ---
Documentation for date of: 03/08/25 Subjective Subjective Interval history: Seen in telemetry today at the bedside, no more similar episodes reported. Tolerating tube feeding well without any significant risk Exam - Neurology Vital Signs Temp Pulse Resp BP Pulse Ox O2 Del Method FiO2 97.5 F 147 H 40 H 130/92 H 100 Mechanical Ventilation 35 03/08/25 20:25 03/08/25 20:00 03/08/25 20:00 03/08/25 20:00 03/08/25 20:00 03/08/25 20:00 03/08/25 20:00 Narrative Exam General: Awake and responsive to voice by eye tracking. Nonverbal. Thin male in no acute distress with tracheostomy. HEENT: NCAT, PERRLA, EOMI, some slight horizontal nystagmus noted, MMM, anicteric conjunctivae. CVS: Regular rate and rhythm. Normal S1 and S2. No M/R/G. Resp: Tracheostomy tube in place. Tachypneic. Coarse breathing B/L. No rhonchi, rales, crackles or wheezing. Abd: PEG tube in place. Soft, non-tender, non-distended. BS+ in all 4 quadrants. MSK: Upper and lower extremities are stiff with decerebrate posturing. Neuro: Limited exam due to medical condition. Can answer yes or no via blinking signals when coached. Objective Labs 03/11/25 04:55 03/11/25 04:55 Labs: Laboratory Results - last 24 hr 03/08/25 04:55 WBC 7.0 RBC 3.04 L Hgb 8.2 L Hct 26.6 L MCV 88 MCH 27.0 MCHC 30.8 L RDW Std Deviation 72.9 H Plt Count 326 Neut % (Auto) 65 Lymph % (Auto) 22 [place] % (Auto) 9 Eos % (Auto) 2 Baso % (Auto) 1 Neut # (Auto) 4.6 Lymph # (Auto) 1.5 [place] # (Auto) 0.6 Eos # (Auto) 0.2 Baso # (Auto) 0.0 Immature Gran # (Auto) 0.07 H Absolute Nucleated RBC 0.00 Immature Gran % 1 H Nucleated RBC % 0 Sodium 140 Potassium 3.5 D Chloride 104 Carbon Dioxide 28.3 Anion Gap 8 BUN 11 Creatinine 0.4 L Estim Creat Clear Calc 229.3 eGFR > 60 BUN/Creatinine Ratio 28 H Glucose 75 Calculated Osmolality 277 Calcium 10.0 Corrected Calcium 10.5 H Phosphorus 2.5 Magnesium 1.6 Total Bilirubin 0.2 L AST 12 ALT < 7 L Alkaline Phosphatase 108 Total Protein 7.1 Albumin 3.4 L Globulin 3.7 H Albumin/Globulin Ratio 0.9 L Assessment & Plan Additional Assessment & Plan Additional Plan: This is a 29-year-old male with a complex medical history including cocaine- induced cerebral vasculitis, seizures, chronic respiratory failure (status post tracheostomy and PEG tube), anemia, and quadriparesis, presented to ED with a rectal temperature of 93 found during rounds at [facility]. #Hx seizure disorder No signs of seizure activities. No reported recent seizure activities Recently discharged Plan: ? 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 Autonomic dysfunction Hypothermia as low as 93.0 Unsure if there is chronic autonomic dysfunction from cerebral vasculitis At this time, alternating temperatures of hypothermia and hyperthermia (Fever) could also represent infection at this time Will not recommend initiating steroids at this time as this can pose more risk for infection if this is true autonomic dysfunction BB can be used for therapy, however this can lower HR and BP Other approach can be to monitor temperatures at this time Plan: ? DuoNebs PRN ? GUAIFENESIN 200 mg q.4h. PRN ? BACLOFEN 20 mg q.6h. ? DIAZEPAM 5 mg BID ? GABAPENTIN 400 mg TID ? LACTULOSE 10 mg q. day ? ONDANSETRON 4 mg q.6h. PRN ? PANTOPRAZOLE 40 mg q. day ? Pain control ? Continue PEG tube feeds ? Wound care ? Treat underlying infection ? Consider beta-blockers if there is high suspicion for autonomic dysfunction #Chronic normocytic anemia #Hyperlipidemia #Hypothermia #MDR pneumonia #Hypotension Above handled by primary hospitalist team
[2025-03-09] VITALS (13 sets, daily range): BP systolic 91–107; BP diastolic 55–79; PULSE 67–127; RESP 18–29; TEMP 33.3–37.9; O2SAT 97–100; BMI 19.5
[2025-03-09] MEDS: SODIUM CL RT SOL 3% 4 ML NEBU (NON-FORMULARY) INH ×4 (00:52→19:03)
[2025-03-09] MEDS: BACLOFEN 10 MG TABLET 20 MG GT ×4 (02:00→19:39)
[2025-03-09] MEDS: MEROPENEM INJ 1,000 MG in SODIUM CHLORIDE 0.9% (Popper) 50 ML 100 MG IV ×2 (05:31→13:58)
[2025-03-09] MEDS: GABAPENTIN 100 MG CAPSULE 400 MG GT ×3 (05:31→21:50)
[2025-03-09 05:32] LABS: Basophils # (Auto) 0.0 Thou/mm3 (0.0-0.2); Basophils % (Auto) 0 % (0-2.5); Eosinophils # (Auto) 0.2 Thou/mm3 (0.0-0.5); Eosinophils % (Auto) 2 % (0-10); Hematocrit 27.0 % (41.0-53.0); Immature Granulocytes Auto 0.06 Thou/mm3 (0.00-0.00); Lymphocytes # (Auto) 1.2 Thou/mm3 (1.0-4.8); Lymphocytes % (Auto) 12 % (10-50); Mean Corpuscular HGB Conc 31.9 g/dl (31.0-37.0); Mean Corpuscular Hemoglobin 27.7 pg (25.0-35.0); Mean Corpuscular Volume 87 fL (80-100); Monocytes # (Auto) 0.7 Thou/mm3 (0.0-0.8); Monocytes % (Auto) 7 % (0-12); Neutrophils # (Auto) 8.0 Thou/mm3 (1.8-7.7); Neutrophils % (Auto) 78 % (37-80); Nucleated Red Blood Cell # 0.00 Thou/mm3 (0.00-0.00); Nucleated Red Blood Cell % 0 /100 WBC (0); Platelet Count 348 Thou/mm3 (140-440); RDW Standard Deviation 71.9 fL (35.1-43.9); Red Blood Count 3.10 Miln/mm3 (4.50-5.90); White Blood Count 10.2 Thou/mm3 (3.8-10.6)
[2025-03-09 05:34] LABS: Hemoglobin 8.6 g/dL (13.5-16.0)
[2025-03-09 06:15] LABS: Albumin, Serum 3.5 gm/dL (3.5-5.0); Albumin/Globulin Ratio 0.9 (1.2-2.2); Alkaline Phosphatase 123 U/L (46-116); Anion Gap 10 (7-16); Aspartate Amino Transferase 14 U/L (0-34); BUN/Creatinine Ratio 28 Ratio (12-20); Bilirubin,Total < 0.2 mg/dL (0.3-1.2); Blood Urea Nitrogen 11 mg/dL (9-23); Calcium 9.7 mg/dL (8.3-10.6); Calcium (Corrected) 10.1 mg/dL (8.5-10.1); Carbon Dioxide 28.3 mMol/L (20.0-31.0); Chloride 103 mMol/L (98-107); Creatinine (Component) 0.4 mg/dL (0.6-1.3); Estimated Creatinine Clearance 230.2 mL/min (>60); Globulin 3.7 gm/dL (2.3-3.5); Glucose 78 mg/dL (74-106); Magnesium 1.7 mg/dL (1.6-2.6); Osmolality,Calculated 279 (275-295); Phosphorous 2.6 mg/dL (2.4-5.1); Potassium 3.5 mMol/L (3.4-5.1); Sodium 141 mMol/L (136-145); Total Protein 7.2 gm/dL (5.7-8.2); eGFR > 60 See Note
[2025-03-09 06:20] LABS: Alanine Aminotransferase < 7 U/L (10-49)
[2025-03-09] MEDS: METOPROLOL TARTRATE 25 MG TABLET 50 MG PO ×2 (08:11→20:03)
[2025-03-09] MEDS: LACTULOSE SYRUP 20 GM/30 ML UDC 10 GM GT (08:11)
[2025-03-09] MEDS: CIPROFLOXACIN/D5w 400 MG IVPB 400 MG/200 ML BAG 200 MG IV (08:16)
[2025-03-09] MEDS: DIAZEPAM 5 MG TABLET GT ×2 (08:16→20:03)
[2025-03-09] MEDS: POTASSIUM CHLORIDE 10% 20 MEQ/15 ML UDC 40 MEQ GT (08:16)
[2025-03-09] MEDS: levETIRAcetam INJ 100 MG/ML VIAL 5ML 1000 MG IVP ×2 (08:20→21:10)
--- NOTE | 2025-03-09 11:17 | PD.RESPRO ---
Documentation for date of: 03/09/25 Subjective Subjective Interval history: Overnight, temperature ranged from 91.9 F to 101.3 F, conservative measure were taken appropriately with Valencia hugger and cooling measures. 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 Will continue conservative measures and monitor. Had discussion with patient's family today regarding goals of care. Explained patient's current condition and plan of action as above and discussed transition to comfort care if patient's condition abruptly worsens. Family was agreeable to plan and accepted patient's poor prognosis. Will speak with family again in the coming days in regards to discharging patient on hospice or back to subacute once appropriate. Exam Vital Signs Temp Pulse Resp BP Pulse Ox O2 Del Method FiO2 97.1 F 97 23 H 91/64 100 Mechanical Ventilation 35 03/09/25 08:00 03/09/25 08:11 03/09/25 08:00 03/09/25 08:11 03/09/25 08:00 03/09/25 08:00 03/09/25 08:00 Narrative Exam Physical Exam General: Awake and in no acute distress. Conversational and non-toxic appearing. Nonverbal, opens eyes spontaneously, frail. HEENT: Normocephalic, atraumatic, mucous membranes moist. Tracheostomy midline, no bleeding noted around trach. Heart: Regular rate and rhythm, normal S1 and S2, no murmurs appreciated. Lungs: Clear to auscultation with no wheezing or crackles. Abdomen: Soft, nondistended, nontender, positive bowel sounds. No guarding or rebound tenderness. PEG tube in place in center of abdomen without eyrthema no purulent drainage, some crusting around tube. Neurologic: Quadraparesis, extremities contorted, and nonverbal at baseline with eyes opening spontaneously. Able to track with eyes. Extremities: Chronic wounds on bilateral knees. Objective Labs 03/10/25 05:28 03/10/25 05:28 Labs: Laboratory Results - last 24 hr 03/09/25 05:00 WBC 10.2 D RBC 3.10 L Hgb 8.6 L Hct 27.0 L MCV 87 MCH 27.7 MCHC 31.9 RDW Std Deviation 71.9 H Plt Count 348 Neut % (Auto) 78 Lymph % (Auto) 12 [place] % (Auto) 7 Eos % (Auto) 2 Baso % (Auto) 0 Neut # (Auto) 8.0 H Lymph # (Auto) 1.2 [place] # (Auto) 0.7 Eos # (Auto) 0.2 Baso # (Auto) 0.0 Immature Gran # (Auto) 0.06 H Absolute Nucleated RBC 0.00 Immature Gran % 1 H Nucleated RBC % 0 Sodium 141 Potassium 3.5 Chloride 103 Carbon Dioxide 28.3 Anion Gap 10 BUN 11 Creatinine 0.4 L Estim Creat Clear Calc 230.2 eGFR > 60 BUN/Creatinine Ratio 28 H Glucose 78 Calculated Osmolality 279 Calcium 9.7 Corrected Calcium 10.1 Phosphorus 2.6 Magnesium 1.7 Total Bilirubin < 0.2 L AST 14 ALT < 7 L Alkaline Phosphatase 123 H Total Protein 7.2 Albumin 3.5 Globulin 3.7 H Albumin/Globulin Ratio 0.9 L Quality Measures Quality Measures sepsis Current suspected stage: ruled out Possible source: pulmonary Blood cultures ordered: yes Antibiotic ordered: No and comfort care/end of life Assessment & Plan Assessment Current Active Medications: Generic Name Dose Route Start Last Admin Trade Name Freq PRN Reason Stop Dose Admin Acetaminophen 650 mg 03/07/25 05:14 03/08/25 19:25 Acetaminophen Supp 650 Mg Supp ND 04/06/25 05:14 650 mg Q6H PRN Administration Fever >100.4 or Pain 1-3 Hydrocodone Bitart/Acetaminophen 1 tab 03/07/25 05:06 Hydrocodone/Apap 10/325 Tab GT 03/12/25 05:05 Q4HR PRN PAIN SCALE 7-10 (Severe Albuterol/Ipratropium 3 ml 03/07/25 05:15 Albuterol/Ipratropium (Duoneb) Rt [place] 3 Ml Nebu INH 04/06/25 05:14 Q6HRRT PRN Wheezing Atorvastatin Calcium 40 mg 03/07/25 21:00 03/08/25 20:19 Atorvastatin Calcium 20 Mg Tablet GT 04/06/25 20:59 40 mg HS RADHA Administration Baclofen 20 mg 03/07/25 07:25 03/09/25 08:16 Baclofen 10 Mg Tablet GT 04/06/25 05:14 20 mg Q6H RADHA Administration Bisacodyl 10 mg 03/07/25 05:15 Bisacodyl 10 Mg Supp ND 04/06/25 05:14 QDAY PRN CONSTIPATION Protocol Cadexomer Iodine 0 gm 03/07/25 21:00 03/08/25 20:20 Cadexomer Iodine Gel 40 Gm Tube TOP 03/14/25 20:59 1 applicatio HS RADHA Administration Dextrose 25 ml 03/07/25 05:15 Dextrose 50%-Water Inj 50 Ml Syringe IV 04/06/25 05:14 Q15MIN PRN BG 50-70 responsive npo pt Dextrose 50 ml 03/07/25 05:15 Dextrose 50%-Water Inj 50 Ml Syringe IV 04/06/25 05:14 Q15MIN PRN BG <50 OR BG <70 & pt unresponsive Diazepam 5 mg 03/07/25 09:00 03/09/25 08:16 Diazepam 5 Mg Tablet GT 03/12/25 08:59 5 mg BID RADHA Administration Gabapentin 400 mg 03/07/25 06:00 03/09/25 05:31 Gabapentin 100 Mg Capsule GT 04/06/25 05:59 400 mg TID RADHA Administration Glucagon 1 mg 03/07/25 05:15 Glucagon Inj 1 Mg Vial IM Q15MIN PRN BG <70, and no IV access Guaifenesin 200 mg 03/07/25 08:40 Guaifenesin Syrup 200 Mg/10 Ml Udc GT 04/06/25 05:14 Q4H PRN congestion/cough Protocol Meropenem 1,000 mg/ Sodium 50 mls @ 100 mls/hr 03/07/25 14:30 03/09/25 05:31 Chloride IV 03/14/25 14:29 100 mls/hr Q8HR RADHA Administration Ciprofloxacin/Dextrose 400 mg in 200 mls @ 200 mls/hr 03/07/25 21:00 03/09/25 08:16 Cipro Ivpb IV 03/14/25 20:59 200 mls/hr Q12HR RADHA Administration Insulin Human Lispro 0 unit 03/07/25 18:00 03/09/25 05:07 Insulin Lispro (Admelog) 1 Unit/0.01 Ml Unit SC 04/06/25 17:59 Not Given Q6HR RADHA Protocol Lactulose 10 gm 03/07/25 09:00 03/09/25 08:11 Lactulose Syrup 20 Gm/30 Ml Udc GT 10/18/25 08:59 10 gm QDAY RADHA Administration Protocol Levetiracetam 1,000 mg 03/07/25 21:00 03/09/25 08:20 Levetiracetam Inj 100 Mg/Ml Vial 5ml IVP 04/06/25 20:59 1,000 mg Q12HR RADHA Administration Methylprednisolone Sodium Succinate 60 mg 03/09/25 09:30 03/09/25 09:40 Methylprednisolone Sod Succ 40 Mg/Ml Vial IVP 03/16/25 09:29 60 mg QDAY RADHA Administration Metoclopramide HCl 10 mg 03/07/25 08:37 Metoclopramide Inj 5 Mg/Ml Vial 2 Ml IVP 04/06/25 08:36 Q8HR PRN Vomiting Protocol Metoprolol Tartrate 50 mg 03/08/25 19:25 03/09/25 08:11 Metoprolol Tartrate 25 Mg Tablet PO 04/07/25 19:24 50 mg BID RADHA Administration Midodrine 5 mg 03/07/25 08:40 Midodrine 5 Mg Tablet GT 04/06/25 05:59 TID PRN SBP>90 and DBP>50 Ondansetron HCl 4 mg 03/07/25 05:06 Ondansetron Inj 2 Mg/Ml Inj 2 Ml IVP 04/06/25 05:05 Q6H PRN NAUSEA OR VOMITING Protocol Oxycodone/Acetaminophen 1 tab 03/07/25 05:06 Oxycodone/Apap 5/325 Tablet GT 03/12/25 05:05 Q6H PRN PAIN SCALE 4-6 (Moderate Pantoprazole Sodium 40 mg 03/07/25 09:00 03/09/25 08:16 Pantoprazole Inj 40 Mg Vial IVP 04/06/25 08:59 40 mg QDAY RADHA Administration Sodium Chloride 4 ml 03/08/25 13:00 03/09/25 07:20 Sodium Cl Rt [place] 3% 4 Ml Nebu (Non-Formulary) INH 04/07/25 12:59 4 ml Q6HRRT RADHA Administration Plan Patient is a 29-year-old male with 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 #Goals of care Had goals of care discussion with patient's mother Sara and father Nasir over telephone. Family was updated on patient's current condition and plan for treatment, discussed transition to comfort care if patient's condition abruptly worsens. Explained that this meant patient would be withdrawn from life sustaining therapies and only be treated symptomatically. Patient's mother and father relayed understanding and were agreeable to plan. Plan: - Will speak with family again in the coming days in regards to discharging patient on hospice or back to subacute once stable - managed services sales consultant made aware and will follow-up with hospice options available #Hypothermia #Fluctuating fever of unknown origin Presented with rectal temp of 93F, increased to 100.6F within a few hours. Concern for hypothalamic dysregulation possibly secondary to vasculitis. Not improved despite extensive antibiotic regimen since previous admissions, unlikely infection related per ID. Per ID notes on previous admission, low suspicion for systemic infection given negative blood cultures. Plan: - IV methylprednisolone 60 mg daily - Metoprolol 50 mg BID, increase as tolerated - [place] vernagger - Tylenol PRN - Consulted neurologist Dr. Burns regarding possible autonomic dysregulation, appreciate recommendations #MDR pneumonia, likely ventilator associated #Chronic mucus plugging Per last admission, suspect possibly multidrug-resistant strains of Pseudomonas due to inadequate duration of antibiotic treatment upon comparison of CTA chest 3 months apart Multiple EENT cultures grew different organisms including Proteus mirabilis, Pseudomonas aeruginosa, ESBL Klebsiella pneumoniae with different resistances. However, repeat blood cultures 03/07 were negative. Previous Bcx on 02/21 and 02/25 have also been negative. Had antiobiotic treatment with IV CFX, cefepime, vancomycin, zosyn. Was discharged on 03/06 with ciprofloxacin and meropenum. Upon chart review, ID Dr. Vargas recommended discontinuing antibiotic treatment as very low suspicion for infection but antibiotic were continued per ICU recommendations. Plan: - Discontinue ciprofloxacin 400 mg BID and meropenum 1000 mg q8hr (02/26-03/09) - Duonebs prn - Guaifenesin 200 mg q4hr prn - Chest physiotherapy daily #Cocaine induced cerebral vasculitis #S/p tracheostomy #S/p PEG tube #Quadraparesis with spastic contractions #Seizures Chronic state. Of note, 02/27 EEG showed diffuse slowing suggestive of a diffuse encephalopathy of metabolic, degenerative, or vascular origin as well as paroxysmal bursts of spike and wave discharges suggesting seizure - Gabapentin 400 mg TID - IV Keppra 1000 mg BID - Baclofen 20 mg QID - Duonebs prn - Pain regimen: [place] 5 and 10 prn - Wound care following - Oral care daily #Chronic anemia, normocytic Baseline Hgb 7-9. Likely anemia of chronic disease 2/2 chronic vegetative state. 12/20/24 peripheral smear shows severe hypochromic microcytic anemia without hemolysis favoring iron deficiency state. Iron panel 02/14: iron low 50, TIBC low 243, iron sat wnl, unsat iron binding low 193. - CTM Hgb - Transfuse if Hgb <7 #Hypotension, refractory Likely secondary to autonomic dysregulation from vasculitis. - Midodrine 5 mg as needed Health Maintenance Disposition: tele DVT prophylaxis: SCDs GI prophylaxis: valium, prn metoclopramide, prn zofran Bowel prophylaxis: lactulose Diet: Jevity CODE STATUS: DNR Patient plan of care was discussed with the attending physician, Dr. De Luna. Iman Duncan, PGY-1 Attending Provider Attestation/Addendum I have examined the patient, reviewed labs and imaging findings, discussed the case with the resident(s), and reviewed entered orders. I agree with the plan of care as outlined in this note, with these additional summaries/recommendations: Patient seen at bedside. Patient is trached and pegged and unfortunately no history can be obtained at this time. Patient continues to have hypothermia and hypothermia. Over the last 24 hours patient's temperature reached a low of 91.9 Fahrenheit and a high of 101.3 Fahrenheit. Patient has received extensive broad-spectrum antibiotics for his multi drug-resistant pneumonia. Case was discussed with infectious disease specialist who feels patient's symptoms are unrelated to infection at this point. It is possible patient's labile temperature is secondary to autonomic dysfunction from underlying vasculitis. Given that patient has received extensive course of antibiotics we will proceed with Solu-Medrol for vasculitis today and monitor for improvement. In-house neurology following. Continue Valencia hugger as needed for hypothermia and Tylenol as needed for hyperthermia. Given that patient's findings are more likely related to autonomic dysfunction we will provide thorough recommendations for subacute facility in regards to mild hypothermia at 90-95 Fahrenheit and hyperthermia. Continue Keppra for seizure disorder and midodrine for chronic hypotension. Overall prognosis guarded. Continue home baclofen & diazepam. Please see residents note for additional details and management. Dr. Calixto MD
--- NOTE | 2025-03-09 13:06 | PD.RESEVENT ---
Documentation for date of: 03/09/25 Event Note Event Note: Spoke with patient's mother Felix Carmona and father Nasir Qureshi over telephone today. Updated family on patient's condition and that he is currently being treated with antibiotics and will start treatment with IV steroids today in effort to control temperature regulation. Confirmed with family that patient's code status with remain DNR, discussed what this entailed to which they conveyed understanding. Had discussion regarding transition to comfort care if patient's condition abruptly worsens. Explained that this meant patient would be withdrawn from life sustaining therapies and only be treated symptomatically. Patient's mother and father relayed understanding and were agreeable to plan. Will speak with family again in the coming days in regards to discharging patient on hospice or back to subacute once appropriate to do so. Social servies made aware and will follow-up with hospice options available. Discussion was held in the presence of senior resident Dr. Robbins and attending Dr. De Luna. Iman Duncan, PGY-1
[2025-03-09] MEDS: CADEXOMER IODINE GEL 40 GM TUBE TOP (20:26)
[2025-03-09] MEDS: ATORVASTATIN CALCIUM 20 MG TABLET 40 MG GT (20:26)
[2025-03-10] VITALS (14 sets, daily range): BP systolic 98–127; BP diastolic 67–82; PULSE 68–130; RESP 14–30; TEMP 36–38.3; O2SAT 91–100; BMI 19.5
[2025-03-10] MEDS: SODIUM CL RT SOL 3% 4 ML NEBU (NON-FORMULARY) INH ×4 (00:40→18:50)
[2025-03-10] MEDS: ONDANSETRON INJ 2 MG/ML INJ 2 ML 4 MG IVP (01:56)
[2025-03-10] MEDS: BACLOFEN 10 MG TABLET 20 MG GT ×4 (01:56→17:23)
[2025-03-10 05:38] LABS: Basophils # (Auto) 0.0 Thou/mm3 (0.0-0.2); Basophils % (Auto) 0 % (0-2.5); Eosinophils # (Auto) 0.1 Thou/mm3 (0.0-0.5); Eosinophils % (Auto) 1 % (0-10); Hematocrit 29.2 % (41.0-53.0); Hemoglobin 9.2 g/dL (13.5-16.0); Immature Granulocytes Auto 0.07 Thou/mm3 (0.00-0.00); Lymphocytes # (Auto) 1.9 Thou/mm3 (1.0-4.8); Lymphocytes % (Auto) 15 % (10-50); Mean Corpuscular HGB Conc 31.5 g/dl (31.0-37.0); Mean Corpuscular Hemoglobin 27.5 pg (25.0-35.0); Mean Corpuscular Volume 87 fL (80-100); Monocytes # (Auto) 1.0 Thou/mm3 (0.0-0.8); Monocytes % (Auto) 8 % (0-12); Neutrophils # (Auto) 9.4 Thou/mm3 (1.8-7.7); Neutrophils % (Auto) 75 % (37-80); Nucleated Red Blood Cell # 0.00 Thou/mm3 (0.00-0.00); Nucleated Red Blood Cell % 0 /100 WBC (0); Platelet Count 333 Thou/mm3 (140-440); RDW Standard Deviation 73.0 fL (35.1-43.9); Red Blood Count 3.35 Miln/mm3 (4.50-5.90); White Blood Count 12.6 Thou/mm3 (3.8-10.6)
[2025-03-10] MEDS: GABAPENTIN 100 MG CAPSULE 400 MG GT ×3 (05:38→21:36)
[2025-03-10 06:23] LABS: Alanine Aminotransferase 10 U/L (10-49); Albumin, Serum 3.8 gm/dL (3.5-5.0); Albumin/Globulin Ratio 0.9 (1.2-2.2); Alkaline Phosphatase 135 U/L (46-116); Anion Gap 8 (7-16); Aspartate Amino Transferase 17 U/L (0-34); BUN/Creatinine Ratio 20 Ratio (12-20); Bilirubin,Total < 0.2 mg/dL (0.3-1.2); Blood Urea Nitrogen 12 mg/dL (9-23); Calcium 10.1 mg/dL (8.3-10.6); Calcium (Corrected) 10.3 mg/dL (8.5-10.1); Carbon Dioxide 27.6 mMol/L (20.0-31.0); Chloride 102 mMol/L (98-107); Creatinine (Component) 0.6 mg/dL (0.6-1.3); Estimated Creatinine Clearance 164.6 mL/min (>60); Globulin 4.2 gm/dL (2.3-3.5); Glucose 92 mg/dL (74-106); Magnesium 1.4 mg/dL (1.6-2.6); Osmolality,Calculated 275 (275-295); Phosphorous 2.0 mg/dL (2.4-5.1); Potassium 4.6 mMol/L (3.4-5.1); Sodium 138 mMol/L (136-145); Total Protein 8.0 gm/dL (5.7-8.2); eGFR > 60 See Note
[2025-03-10] MEDS: NAPH,KPH MBDB 1 PACKET (1.5 GM) GT ×2 (07:57→11:37)
[2025-03-10] MEDS: Magnesium Sulfate 4 GM Ivpb 4 GM/50 ML BAG IV (07:58)
[2025-03-10] MEDS: ACETAMINOPHEN SUPP 650 MG SUPP PR (08:01)
[2025-03-10] MEDS: LACTULOSE SYRUP 20 GM/30 ML UDC 10 GM GT (08:59)
[2025-03-10] MEDS: levETIRAcetam INJ 100 MG/ML VIAL 5ML 1000 MG IVP ×2 (09:00→21:17)
[2025-03-10] MEDS: METOPROLOL TARTRATE 25 MG TABLET 100 MG PO (09:02)
--- NOTE | 2025-03-10 10:20 | PC.SS ---
Informed by Dr. Merino patient will need to discharge with hospice. SS then contacted [facility] and informed her patient will need hospice. Anne stated [facility] does not accept patients with hospice. She reccommended hospitalist team contact [facility] tomorrow, 03/11/25 to consult and confirm with Dr. Nichols.
--- NOTE | 2025-03-10 10:22 | ESPR_ITS ---
Documentation for date of: 03/10/25 Subjective Subjective Interval history: Overnight events: No acute events overnight. Patient was seen and examined at bedside. AM vitals and labs reviewed. Patient noted to have heart rate of 126, respiratory rate 30, and fever of 101 ?F this morning. Patient does not appear to be in any acute distress at this time. Goals of care discussion done yesterday, family has decided to pursue hospice. IV antibiotics stopped yesterday. WBC 12.6, likely secondary to Solu-Medrol use that was started yesterday. Phosphorus 2.0 and magnesium 1.4, both of which were repleted. ALP 135. bilingual patient support caseworker has notified medicine team that subacute does not except hospice patients. Will discuss with subacute team tomorrow, including Dr. Nichols. Changed diazepam 5 mg twice daily from scheduled to as needed if patient has seizures. Increased metoprolol 50 mg twice daily 200 mg twice daily. IV steroids does not seem to be improving the patient's hypothalamic dysregulation, we will discontinue after the patient's a.m. dose today. Review of systems otherwise negative except for what is mentioned above. Exam Vital Signs Temp Pulse Resp BP Pulse Ox O2 Del Method O2 Flow Rate 101 F H 105 H 30 H 127/82 99 Mechanical Ventilation 94 03/10/25 08:01 03/10/25 09:02 03/10/25 08:00 03/10/25 09:02 03/10/25 08:00 03/10/25 08:00 03/10/25 08:00 FiO2 35 03/10/25 08:00 Narrative Exam Physical Exam: General: Alert, no acute distress. Nonverbal. Skin: Warm, dry, intact. Head: Normocephalic, atraumatic. Eye: Normal conjunctiva, PERRL. Throat: Tracheostomy midline, no bleeding noted. Clear sputum noted in trach tube. Cardiovascular: Regular rate and rhythm, no murmur, +S1/S2. Respiratory: Respirations unlabored, diffuse mechanical breath sounds. Gastrointestinal: Soft, nontender, non-distended. No guarding or rebound tenderness. PEG tube in place. Extremities: No edema, no cyanosis, no clubbing. Extremities postured in flexion. Bilateral popliteal fossa leg 4x4 cm dressings. Neuro: Quadrapleigic, opens eyes spontaneously. Objective Labs 03/11/25 04:55 03/11/25 04:55 Labs: Laboratory Results - last 24 hr 03/10/25 05:28 WBC 12.6 H RBC 3.35 L Hgb 9.2 L Hct 29.2 L MCV 87 MCH 27.5 MCHC 31.5 RDW Std Deviation 73.0 H Plt Count 333 Neut % (Auto) 75 Lymph % (Auto) 15 [place] % (Auto) 8 Eos % (Auto) 1 Baso % (Auto) 0 Neut # (Auto) 9.4 H Lymph # (Auto) 1.9 [place] # (Auto) 1.0 H Eos # (Auto) 0.1 Baso # (Auto) 0.0 Immature Gran # (Auto) 0.07 H Absolute Nucleated RBC 0.00 Immature Gran % 1 H Nucleated RBC % 0 Sodium 138 Potassium 4.6 D Chloride 102 Carbon Dioxide 27.6 Anion Gap 8 BUN 12 Creatinine 0.6 Estim Creat Clear Calc 164.6 eGFR > 60 BUN/Creatinine Ratio 20 Glucose 92 Calculated Osmolality 275 Calcium 10.1 Corrected Calcium 10.3 H Phosphorus 2.0 L Magnesium 1.4 L Total Bilirubin < 0.2 L AST 17 ALT 10 Alkaline Phosphatase 135 H Total Protein 8.0 Albumin 3.8 Globulin 4.2 H Albumin/Globulin Ratio 0.9 L Quality Measures Quality Measures sepsis Current suspected stage: ruled out Possible source: pulmonary Blood cultures ordered: yes Antibiotic ordered: No and comfort care/end of life Assessment & Plan Assessment Current Active Medications: Generic Name Dose Route Start Last Admin Trade Name Freq PRN Reason Stop Dose Admin Acetaminophen 650 mg 03/07/25 05:14 03/10/25 08:01 Acetaminophen Supp 650 Mg Supp MN 04/06/25 05:14 650 mg Q6H PRN Administration Fever >100.4 or Pain 1-3 Hydrocodone Bitart/Acetaminophen 1 tab 03/07/25 05:06 03/10/25 07:07 Hydrocodone/Apap 10/325 Tab GT 03/12/25 05:05 1 tab Q4HR PRN Administration PAIN SCALE 7-10 (Severe Albuterol/Ipratropium 3 ml 03/07/25 05:15 Albuterol/Ipratropium (Duoneb) Rt [place] 3 Ml Nebu INH 04/06/25 05:14 Q6HRRT PRN Wheezing Atorvastatin Calcium 40 mg 03/07/25 21:00 03/09/25 20:26 Atorvastatin Calcium 20 Mg Tablet GT 04/06/25 20:59 40 mg HS RADHA Administration Baclofen 20 mg 03/07/25 07:25 03/10/25 06:37 Baclofen 10 Mg Tablet GT 04/06/25 05:14 20 mg Q6H RADHA Administration Bisacodyl 10 mg 03/07/25 05:15 Bisacodyl 10 Mg Supp MN 04/06/25 05:14 QDAY PRN CONSTIPATION Protocol Cadexomer Iodine 0 gm 03/07/25 21:00 03/09/25 20:26 Cadexomer Iodine Gel 40 Gm Tube TOP 03/14/25 20:59 1 applicatio HS RADHA Administration Dextrose 25 ml 03/07/25 05:15 Dextrose 50%-Water Inj 50 Ml Syringe IV 04/06/25 05:14 Q15MIN PRN BG 50-70 responsive npo pt Dextrose 50 ml 03/07/25 05:15 Dextrose 50%-Water Inj 50 Ml Syringe IV 04/06/25 05:14 Q15MIN PRN BG <50 OR BG <70 & pt unresponsive Diazepam 5 mg 03/10/25 07:46 Diazepam 5 Mg Tablet GT 03/12/25 08:59 BID PRN SEIZURES Gabapentin 400 mg 03/07/25 06:00 03/10/25 05:38 Gabapentin 100 Mg Capsule GT 04/06/25 05:59 400 mg TID RADHA Administration Glucagon 1 mg 03/07/25 05:15 Glucagon Inj 1 Mg Vial IM Q15MIN PRN BG <70, and no IV access Guaifenesin 200 mg 03/07/25 08:40 Guaifenesin Syrup 200 Mg/10 Ml Udc GT 04/06/25 05:14 Q4H PRN congestion/cough Protocol Magnesium Sulfate 4 gm in 50 mls @ 12.5 mls/hr 03/10/25 07:32 03/10/25 07:58 Magnesium Sulfate Ivpb IV 03/10/25 11:31 12.5 mls/hr X1 ONE Administration Magnesium Sulfate 2 gm in 50 mls @ 25 mls/hr 03/10/25 11:35 Magnesium Sulfate Ivpb IV 03/10/25 13:34 X1 ONE Insulin Human Lispro 0 unit 03/07/25 18:00 03/10/25 05:35 Insulin Lispro (Admelog) 1 Unit/0.01 Ml Unit SC 04/06/25 17:59 Not Given Q6HR RADHA Protocol Lactulose 10 gm 03/07/25 09:00 03/10/25 08:59 Lactulose Syrup 20 Gm/30 Ml Udc GT 04/06/25 08:59 10 gm QDAY RADHA Administration Protocol Levetiracetam 1,000 mg 03/07/25 21:00 03/10/25 09:00 Levetiracetam Inj 100 Mg/Ml Vial 5ml IVP 04/06/25 20:59 1,000 mg Q12HR RADHA Administration Methylprednisolone Sodium Succinate 60 mg 03/09/25 09:30 03/10/25 09:01 Methylprednisolone Sod Succ 40 Mg/Ml Vial IVP 03/16/25 09:29 60 mg On Hold: 03/10/25 09:57 QDAY RADHA Administration Metoclopramide HCl 10 mg 03/07/25 08:37 Metoclopramide Inj 5 Mg/Ml Vial 2 Ml IVP 04/06/25 08:36 Q8HR PRN Vomiting Protocol Metoprolol Tartrate 100 mg 03/10/25 09:00 03/10/25 09:02 Metoprolol Tartrate 25 Mg Tablet PO 04/09/25 08:59 100 mg BID RADHA Administration Midodrine 5 mg 03/07/25 08:40 Midodrine 5 Mg Tablet GT 04/06/25 05:59 TID PRN SBP>90 and DBP>50 Ondansetron HCl 4 mg 03/07/25 05:06 03/10/25 01:56 Ondansetron Inj 2 Mg/Ml Inj 2 Ml IVP 04/06/25 05:05 4 mg Q6H PRN Administration NAUSEA OR VOMITING Protocol Oxycodone/Acetaminophen 1 tab 03/07/25 05:06 03/10/25 04:40 Oxycodone/Apap 5/325 Tablet GT 03/12/25 05:05 1 tab Q6H PRN Administration PAIN SCALE 4-6 (Moderate Pantoprazole Sodium 40 mg 03/07/25 09:00 03/10/25 09:00 Pantoprazole Inj 40 Mg Vial IVP 04/06/25 08:59 40 mg QDAY RADHA Administration Potassium Phos/Sodium Phos 1 packet 03/10/25 12:00 Naph,Kp Mbdb 1 Packet (1.5 Gm) GT 03/10/25 12:01 X1 ONE Sodium Chloride 4 ml 03/08/25 13:00 03/10/25 07:29 Sodium Cl Rt [place] 3% 4 Ml Nebu (Non-Formulary) INH 04/07/25 12:59 4 ml Q6HRRT RADHA Administration Plan Patient is a 29-year-old male with 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 #Goals of care Had goals of care discussion with patient's mother Sara and father Nasir over telephone. Family was updated on patient's current condition and plan for treatment, discussed transition to comfort care if patient's condition abruptly worsens. Explained that this meant patient would be withdrawn from life sustaining therapies and only be treated symptomatically. Patient's mother and father relayed understanding and were agreeable to plan. Plan: - Will speak with family again in the coming days in regards to discharging patient on hospice or back to subacute once stable - bibliographic services specialist made aware and will follow-up with hospice options available - Will discuss with subacute and Dr. Nichols regarding hospice at subacute #Hypothermia #Fluctuating fever of unknown origin Presented with rectal temp of 93F, increased to 100.6F within a few hours. Concern for hypothalamic dysregulation possibly secondary to vasculitis. Not improved despite extensive antibiotic regimen since previous admissions, unlikely infection related per ID. Per ID notes on previous admission, low suspicion for systemic infection given negative blood cultures. Plan: - IV methylprednisolone 60 mg daily (03/09-03/10), discontinued as patient continues to have fluctuating temperatures - Metoprolol 100 mg BID - [place] hugger - Tylenol PRN - Consulted neurologist Dr. Burns regarding possible autonomic dysregulation, appreciate recommendations #MDR pneumonia, likely ventilator associated #Chronic mucus plugging Per last admission, suspect possibly multidrug-resistant strains of Pseudomonas due to inadequate duration of antibiotic treatment upon comparison of CTA chest 3 months apart Multiple EENT cultures grew different organisms including Proteus mirabilis, Pseudomonas aeruginosa, ESBL Klebsiella pneumoniae with different resistances. However, repeat blood cultures 03/07 were negative. Previous Bcx on 02/21 and 02/25 have also been negative. Had antiobiotic treatment with IV CFX, cefepime, vancomycin, zosyn. Was discharged on 03/06 with ciprofloxacin and meropenum. Upon chart review, ID Dr. Vargas recommended discontinuing antibiotic treatment as very low suspicion for infection but antibiotic were continued per ICU recommendations. Plan: - Discontinue ciprofloxacin 400 mg BID and meropenum 1000 mg q8hr (02/26-03/09) - Duonebs prn - Guaifenesin 200 mg q4hr prn - Chest physiotherapy daily #Cocaine induced cerebral vasculitis #S/p tracheostomy #S/p PEG tube #Quadraparesis with spastic contractions #Seizures Chronic state. Of note, 02/27 EEG showed diffuse slowing suggestive of a diffuse encephalopathy of metabolic, degenerative, or vascular origin as well as paroxysmal bursts of spike and wave discharges suggesting seizure - Gabapentin 400 mg TID - IV Keppra 1000 mg BID - Baclofen 20 mg QID - Duonebs prn - Pain regimen: [place] 5 and 10 prn - Wound care following - Oral care daily #Chronic anemia, normocytic Baseline Hgb 7-9. Likely anemia of chronic disease 2/2 chronic vegetative state. 12/20/24 peripheral smear shows severe hypochromic microcytic anemia without hemolysis favoring iron deficiency state. Iron panel 02/14: iron low 50, TIBC low 243, iron sat wnl, unsat iron binding low 193. - CTM Hgb - Transfuse if Hgb <7 #Hypotension, refractory Likely secondary to autonomic dysregulation from vasculitis. - Midodrine 5 mg as needed Health Maintenance Disposition: tele DVT prophylaxis: SCDs GI prophylaxis: valium, prn metoclopramide, prn zofran Bowel prophylaxis: lactulose Diet: Jevity CODE STATUS: DNR Patient plan of care was discussed with the attending physician, Dr. De Luna. Nomi Perea, PGY-1 Attending Provider Attestation/Addendum I have examined the patient, reviewed labs and imaging findings, discussed the case with the resident(s), and reviewed entered orders. I agree with the plan of care as outlined in this note, with these additional summaries/recommendations: Patient seen at bedside. No acute overnight events. Goals of care was held yesterday with patient's parents Nasir and Sara who are patient's medical decision makers. Patient's medical conditions, treatment options, and prognosis was discussed at length. Patient has continued to have hemodynamic instability likely related to autonomic dysfunction. He has recurrent/intractable episodes of hypothermia, hyperthermia, and tachycardia. All treatments were discussed at length and family has decided to pursue hospice care. We discussed discontinuing antibiotics which they are in agreement with. Family agreed with proceeding with 2 days of IV steroids to see if patient responds. Okay to continue mechanical ventilation and tube feeds/free water flushes. Okay to continue antiepileptic regimen. Case management notified to work on hospice placement. Please see residents note for additional details and management. Dr. Calixto MD
[2025-03-10] MEDS: Magnesium Sulfate 2 GM Ivpb 2 GM/50 ML BAG IV (11:37)
[2025-03-10] MEDS: ATORVASTATIN CALCIUM 20 MG TABLET 40 MG GT (21:17)
[2025-03-10] MEDS: CADEXOMER IODINE GEL 40 GM TUBE TOP (21:21)
--- NOTE | 2025-03-10 23:54 | PD.NEUROPROG ---
Documentation for date of: 03/09/25 Subjective Subjective Interval history: Seen in telemetry today at the bedside, no more similar episodes reported. Tolerating tube feeding well without any significant risk Exam - Neurology Vital Signs Temp Pulse Resp BP Pulse Ox O2 Del Method O2 Flow Rate 96.8 F 77 16 98/67 100 Mechanical Ventilation 94 03/10/25 20:00 03/10/25 21:22 03/10/25 20:00 03/10/25 21:22 03/10/25 20:00 03/10/25 20:00 03/10/25 20:00 FiO2 35 03/10/25 20:00 Narrative Exam General: Awake and responsive to voice by eye tracking. Nonverbal. Thin male in no acute distress with tracheostomy. HEENT: NCAT, PERRLA, EOMI, some slight horizontal nystagmus noted, MMM, anicteric conjunctivae. CVS: Regular rate and rhythm. Normal S1 and S2. No M/R/G. Resp: Tracheostomy tube in place. Tachypneic. Coarse breathing B/L. No rhonchi, rales, crackles or wheezing. Abd: PEG tube in place. Soft, non-tender, non-distended. BS+ in all 4 quadrants. MSK: Upper and lower extremities are stiff with decerebrate posturing. Neuro: Limited exam due to medical condition. Can answer yes or no via blinking signals when coached. Objective Labs 03/11/25 04:55 03/11/25 04:55 Labs: Laboratory Results - last 24 hr 03/10/25 05:28 WBC 12.6 H RBC 3.35 L Hgb 9.2 L Hct 29.2 L MCV 87 MCH 27.5 MCHC 31.5 RDW Std Deviation 73.0 H Plt Count 333 Neut % (Auto) 75 Lymph % (Auto) 15 [place] % (Auto) 8 Eos % (Auto) 1 Baso % (Auto) 0 Neut # (Auto) 9.4 H Lymph # (Auto) 1.9 [place] # (Auto) 1.0 H Eos # (Auto) 0.1 Baso # (Auto) 0.0 Immature Gran # (Auto) 0.07 H Absolute Nucleated RBC 0.00 Immature Gran % 1 H Nucleated RBC % 0 Sodium 138 Potassium 4.6 D Chloride 102 Carbon Dioxide 27.6 Anion Gap 8 BUN 12 Creatinine 0.6 Estim Creat Clear Calc 164.6 eGFR > 60 BUN/Creatinine Ratio 20 Glucose 92 Calculated Osmolality 275 Calcium 10.1 Corrected Calcium 10.3 H Phosphorus 2.0 L Magnesium 1.4 L Total Bilirubin < 0.2 L AST 17 ALT 10 Alkaline Phosphatase 135 H Total Protein 8.0 Albumin 3.8 Globulin 4.2 H Albumin/Globulin Ratio 0.9 L Assessment & Plan Additional Assessment & Plan Additional Plan: This is a 29-year-old male with a complex medical history including cocaine-induced cerebral vasculitis, seizures, chronic respiratory failure (status post tracheostomy and PEG tube), anemia, and quadriparesis, presented to ED with a rectal temperature of 93 found during rounds at [facility]. #Hx seizure disorder No signs of seizure activities. No reported recent seizure activities Recently discharged Plan: ? 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 Autonomic dysfunction Hypothermia as low as 93.0 Unsure if there is chronic autonomic dysfunction from cerebral vasculitis At this time, alternating temperatures of hypothermia and hyperthermia (Fever) could also represent infection at this time Will not recommend initiating steroids at this time as this can pose more risk for infection if this is true autonomic dysfunction BB can be used for therapy, however this can lower HR and BP Other approach can be to monitor temperatures at this time Plan: ? DuoNebs PRN ? GUAIFENESIN 200 mg q.4h. PRN ? BACLOFEN 20 mg q.6h. ? DIAZEPAM 5 mg BID ? GABAPENTIN 400 mg TID ? LACTULOSE 10 mg q. day ? ONDANSETRON 4 mg q.6h. PRN ? PANTOPRAZOLE 40 mg q. day ? Pain control ? Continue PEG tube feeds ? Wound care ? Treat underlying infection ? Consider beta-blockers if there is high suspicion for autonomic dysfunction #Chronic normocytic anemia #Hyperlipidemia #Hypothermia #MDR pneumonia #Hypotension Above handled by primary hospitalist team
[2025-03-11] VITALS (15 sets, daily range): BP systolic 94–127; BP diastolic 61–78; PULSE 72–97; RESP 16–34; TEMP 35–37.3; O2SAT 96–100; BMI 19.5
[2025-03-11] MEDS: SODIUM CL RT SOL 3% 4 ML NEBU (NON-FORMULARY) INH ×4 (00:42→19:12)
[2025-03-11] MEDS: BACLOFEN 10 MG TABLET 20 MG GT ×4 (00:54→17:37)
[2025-03-11 05:39] LABS: Basophils # (Auto) 0.0 Thou/mm3 (0.0-0.2); Basophils % (Auto) 0 % (0-2.5); Eosinophils # (Auto) 0.1 Thou/mm3 (0.0-0.5); Eosinophils % (Auto) 1 % (0-10); Hematocrit 26.5 % (41.0-53.0); Immature Granulocytes Auto 0.07 Thou/mm3 (0.00-0.00); Lymphocytes # (Auto) 1.9 Thou/mm3 (1.0-4.8); Lymphocytes % (Auto) 16 % (10-50); Mean Corpuscular HGB Conc 31.7 g/dl (31.0-37.0); Mean Corpuscular Hemoglobin 27.9 pg (25.0-35.0); Mean Corpuscular Volume 88 fL (80-100); Monocytes # (Auto) 0.9 Thou/mm3 (0.0-0.8); Monocytes % (Auto) 8 % (0-12); Neutrophils # (Auto) 8.5 Thou/mm3 (1.8-7.7); Neutrophils % (Auto) 74 % (37-80); Nucleated Red Blood Cell # 0.00 Thou/mm3 (0.00-0.00); Nucleated Red Blood Cell % 0 /100 WBC (0); Platelet Count 312 Thou/mm3 (140-440); RDW Standard Deviation 73.9 fL (35.1-43.9); Red Blood Count 3.01 Miln/mm3 (4.50-5.90); White Blood Count 11.5 Thou/mm3 (3.8-10.6)
[2025-03-11] MEDS: GABAPENTIN 100 MG CAPSULE 400 MG GT ×3 (05:42→21:56)
[2025-03-11 05:57] LABS: Hemoglobin 8.4 g/dL (13.5-16.0)
[2025-03-11 06:08] LABS: Alanine Aminotransferase 12 U/L (10-49); Albumin, Serum 3.6 gm/dL (3.5-5.0); Albumin/Globulin Ratio 0.9 (1.2-2.2); Alkaline Phosphatase 133 U/L (46-116); Anion Gap 8 (7-16); Aspartate Amino Transferase 20 U/L (0-34); BUN/Creatinine Ratio 30 Ratio (12-20); Bilirubin,Total < 0.2 mg/dL (0.3-1.2); Blood Urea Nitrogen 15 mg/dL (9-23); Calcium 9.6 mg/dL (8.3-10.6); Calcium (Corrected) 9.9 mg/dL (8.5-10.1); Carbon Dioxide 29.0 mMol/L (20.0-31.0); Chloride 102 mMol/L (98-107); Creatinine (Component) 0.5 mg/dL (0.6-1.3); Estimated Creatinine Clearance 197.6 mL/min (>60); Globulin 3.9 gm/dL (2.3-3.5); Glucose 88 mg/dL (74-106); Magnesium 1.8 mg/dL (1.6-2.6); Osmolality,Calculated 277 (275-295); Phosphorous 3.2 mg/dL (2.4-5.1); Potassium 3.8 mMol/L (3.4-5.1); Sodium 139 mMol/L (136-145); Total Protein 7.5 gm/dL (5.7-8.2); eGFR > 60 See Note
[2025-03-11] MEDS: LACTULOSE SYRUP 20 GM/30 ML UDC 10 GM GT (08:32)
[2025-03-11] MEDS: METOPROLOL TARTRATE 25 MG TABLET 100 MG PO (08:33)
[2025-03-11] MEDS: POTASSIUM CHLORIDE 10% 20 MEQ/15 ML UDC GT (08:33)
[2025-03-11] MEDS: levETIRAcetam INJ 100 MG/ML VIAL 5ML 1000 MG IVP ×2 (08:34→21:56)
--- NOTE | 2025-03-11 09:29 | ESPR_ITS ---
Subjective Subjective Interval history: team consulted me shortly after readmit with fever. Exam Vital Signs Temp Pulse Resp BP Pulse Ox O2 Del Method O2 Flow Rate 97.2 F 90 21 H 127/74 100 Mechanical Ventilation 94 03/11/25 04:00 03/11/25 08:33 03/11/25 07:31 03/11/25 08:33 03/11/25 07:31 03/11/25 04:00 03/11/25 04:00 FiO2 35 03/11/25 07:31 Narrative Exam limited eval based on repeat eval in a pt applied dnr status if others do not want steroids. that is their choice but you have to decide who to listen to Objective - Internal Medicine Labs 03/11/25 04:55 03/11/25 04:55 Labs: Laboratory Results - last 24 hr 03/11/25 04:55 WBC 11.5 H RBC 3.01 L Hgb 8.4 L Hct 26.5 L MCV 88 MCH 27.9 MCHC 31.7 RDW Std Deviation 73.9 H Plt Count 312 Neut % (Auto) 74 Lymph % (Auto) 16 [place] % (Auto) 8 Eos % (Auto) 1 Baso % (Auto) 0 Neut # (Auto) 8.5 H Lymph # (Auto) 1.9 [place] # (Auto) 0.9 H Eos # (Auto) 0.1 Baso # (Auto) 0.0 Immature Gran # (Auto) 0.07 H Absolute Nucleated RBC 0.00 Immature Gran % 1 H Nucleated RBC % 0 Sodium 139 Potassium 3.8 D Chloride 102 Carbon Dioxide 29.0 Anion Gap 8 BUN 15 Creatinine 0.5 L Estim Creat Clear Calc 197.6 eGFR > 60 BUN/Creatinine Ratio 30 H Glucose 88 Calculated Osmolality 277 Calcium 9.6 Corrected Calcium 9.9 Phosphorus 3.2 Magnesium 1.8 Total Bilirubin < 0.2 L AST 20 ALT 12 Alkaline Phosphatase 133 H Total Protein 7.5 Albumin 3.6 Globulin 3.9 H Albumin/Globulin Ratio 0.9 L Assessment & Plan A&P Narrative seems like this is more of a vasculitis but now has a new infiltrate in rul ABX OK BUT so are steroids as per prior notes we can see again on tue but he is a dnr as noted. fevers may vary with vasculitis and steroids are the mainstay of that rx on 35 % fiO2 as noted before Time Spent With Patient Time: Total time spent is greater than 50% in coordination of care (as documented) at patient's floor/unit and/or counseling patient:
--- NOTE | 2025-03-11 10:22 | PD.RESPRO ---
Documentation for date of: 03/11/25 Exam Vital Signs Temp Pulse Resp BP Pulse Ox O2 Del Method O2 Flow Rate 97.2 F 90 21 H 127/74 100 Mechanical Ventilation 94 03/11/25 04:00 03/11/25 08:33 03/11/25 07:31 03/11/25 08:33 03/11/25 07:31 03/11/25 04:00 03/11/25 04:00 FiO2 35 03/11/25 07:31 Narrative Exam Physical Exam General: Awake and in no acute distress. Conversational and non-toxic appearing. Nonverbal, opens eyes spontaneously, frail. HEENT: Normocephalic, atraumatic, mucous membranes moist. Tracheostomy midline, no bleeding noted around trach. Heart: Regular rate and rhythm, normal S1 and S2, no murmurs appreciated. Lungs: Clear to auscultation with no wheezing or crackles. Abdomen: Soft, nondistended, nontender, positive bowel sounds. No guarding or rebound tenderness. PEG tube in place in center of abdomen without eyrthema no purulent drainage, some crusting around tube. Neurologic: Quadraparesis, extremities contorted, and nonverbal at baseline with eyes opening spontaneously. Able to track with eyes. Extremities: Chronic wounds on bilateral knees. Objective Labs 03/11/25 04:55 03/11/25 04:55 Labs: Laboratory Results - last 24 hr 03/11/25 04:55 WBC 11.5 H RBC 3.01 L Hgb 8.4 L Hct 26.5 L MCV 88 MCH 27.9 MCHC 31.7 RDW Std Deviation 73.9 H Plt Count 312 Neut % (Auto) 74 Lymph % (Auto) 16 [place] % (Auto) 8 Eos % (Auto) 1 Baso % (Auto) 0 Neut # (Auto) 8.5 H Lymph # (Auto) 1.9 [place] # (Auto) 0.9 H Eos # (Auto) 0.1 Baso # (Auto) 0.0 Immature Gran # (Auto) 0.07 H Absolute Nucleated RBC 0.00 Immature Gran % 1 H Nucleated RBC % 0 Sodium 139 Potassium 3.8 D Chloride 102 Carbon Dioxide 29.0 Anion Gap 8 BUN 15 Creatinine 0.5 L Estim Creat Clear Calc 197.6 eGFR > 60 BUN/Creatinine Ratio 30 H Glucose 88 Calculated Osmolality 277 Calcium 9.6 Corrected Calcium 9.9 Phosphorus 3.2 Magnesium 1.8 Total Bilirubin < 0.2 L AST 20 ALT 12 Alkaline Phosphatase 133 H Total Protein 7.5 Albumin 3.6 Globulin 3.9 H Albumin/Globulin Ratio 0.9 L Quality Measures Quality Measures sepsis Possible source: pulmonary Blood cultures ordered: yes and comfort care/end of life Assessment & Plan Assessment Current Active Medications: Generic Name Dose Route Start Last Admin Trade Name Freq PRN Reason Stop Dose Admin Acetaminophen 650 mg 03/07/25 05:14 03/10/25 08:01 Acetaminophen Supp 650 Mg Supp [place] 04/06/25 05:14 650 mg Q6H PRN Administration Fever >100.4 or Pain 1-3 Hydrocodone Bitart/Acetaminophen 1 tab 03/07/25 05:06 03/10/25 07:07 Hydrocodone/Apap 10/325 Tab GT 03/12/25 05:05 1 tab Q4HR PRN Administration PAIN SCALE 7-10 (Severe Albuterol/Ipratropium 3 ml 03/07/25 05:15 Albuterol/Ipratropium (Duoneb) Rt [place] 3 Ml Nebu INH 04/06/25 05:14 Q6HRRT PRN Wheezing Atorvastatin Calcium 40 mg 03/07/25 21:00 03/10/25 21:17 Atorvastatin Calcium 20 Mg Tablet GT 04/06/25 20:59 40 mg HS RADHA Administration Baclofen 20 mg 03/10/25 13:00 03/11/25 05:42 Baclofen 10 Mg Tablet GT 04/09/25 12:59 20 mg Q6HR RADHA Administration Bisacodyl 10 mg 03/07/25 05:15 Bisacodyl 10 Mg Supp [place] 04/06/25 05:14 QDAY PRN CONSTIPATION Protocol Cadexomer Iodine 0 gm 03/07/25 21:00 03/10/25 21:21 Cadexomer Iodine Gel 40 Gm Tube TOP 03/14/25 20:59 1 applicatio HS RADHA Administration Dextrose 25 ml 03/07/25 05:15 Dextrose 50%-Water Inj 50 Ml Syringe IV 04/06/25 05:14 Q15MIN PRN BG 50-70 responsive npo pt Dextrose 50 ml 03/07/25 05:15 Dextrose 50%-Water Inj 50 Ml Syringe IV 04/06/25 05:14 Q15MIN PRN BG <50 OR BG <70 & pt unresponsive Diazepam 5 mg 03/10/25 07:46 Diazepam 5 Mg Tablet GT 03/12/25 08:59 BID PRN SEIZURES Gabapentin 400 mg 03/07/25 06:00 03/11/25 05:42 Gabapentin 100 Mg Capsule GT 04/06/25 05:59 400 mg TID RADHA Administration Glucagon 1 mg 03/07/25 05:15 Glucagon Inj 1 Mg Vial IM Q15MIN PRN BG <70, and no IV access Guaifenesin 200 mg 03/07/25 08:40 Guaifenesin Syrup 200 Mg/10 Ml Udc GT 04/06/25 05:14 Q4H PRN congestion/cough Protocol Insulin Human Lispro 0 unit 03/07/25 18:00 03/11/25 05:43 Insulin Lispro (Admelog) 1 Unit/0.01 Ml Unit SC 04/06/25 17:59 Not Given Q6HR RADHA Protocol Lactulose 10 gm 03/07/25 09:00 03/11/25 08:32 Lactulose Syrup 20 Gm/30 Ml Udc GT 04/06/25 08:59 10 gm QDAY RADHA Administration Protocol Levetiracetam 1,000 mg 03/07/25 21:00 03/11/25 08:34 Levetiracetam Inj 100 Mg/Ml Vial 5ml IVP 04/06/25 20:59 1,000 mg Q12HR RADHA Administration Methylprednisolone Sodium Succinate 60 mg 03/09/25 09:30 03/10/25 09:01 Methylprednisolone Sod Succ 40 Mg/Ml Vial IVP 03/16/25 09:29 60 mg On Hold: 03/10/25 09:57 QDAY RADHA Administration Metoclopramide HCl 10 mg 03/07/25 08:37 Metoclopramide Inj 5 Mg/Ml Vial 2 Ml IVP 04/06/25 08:36 Q8HR PRN Vomiting Protocol Metoprolol Tartrate 100 mg 03/10/25 09:00 03/11/25 08:33 Metoprolol Tartrate 25 Mg Tablet PO 04/09/25 08:59 100 mg BID RADHA Administration Midodrine 5 mg 03/07/25 08:40 Midodrine 5 Mg Tablet GT 04/06/25 05:59 TID PRN SBP>90 and DBP>50 Ondansetron HCl 4 mg 03/07/25 05:06 03/10/25 01:56 Ondansetron Inj 2 Mg/Ml Inj 2 Ml IVP 04/06/25 05:05 4 mg Q6H PRN Administration NAUSEA OR VOMITING Protocol Oxycodone/Acetaminophen 1 tab 03/07/25 05:06 03/10/25 04:40 Oxycodone/Apap 5/325 Tablet GT 03/12/25 05:05 1 tab Q6H PRN Administration PAIN SCALE 4-6 (Moderate Pantoprazole Sodium 40 mg 03/07/25 09:00 03/11/25 08:34 Pantoprazole Inj 40 Mg Vial IVP 04/06/25 08:59 40 mg QDAY RADHA Administration Sodium Chloride 4 ml 03/08/25 13:00 03/11/25 07:28 Sodium Cl Rt [place] 3% 4 Ml Nebu (Non-Formulary) INH 04/07/25 12:59 4 ml Q6HRRT RADHA Administration Plan Patient is a 29-year-old male with 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 #Goals of care Had goals of care discussion with patient's mother Sara and father Nasir over telephone. Family was updated on patient's current condition and plan for treatment, discussed transition to comfort care if patient's condition abruptly worsens. Explained that this meant patient would be withdrawn from life sustaining therapies and only be treated symptomatically. Patient's mother and father relayed understanding and were agreeable to plan. Plan: - Will speak with family again in the coming days in regards to discharging patient on hospice or back to subacute once stable - human resources services specialist made aware and will follow-up with hospice options available #Hypothermia #Fluctuating fever of unknown origin Presented with rectal temp of 93F, increased to 100.6F within a few hours. Concern for hypothalamic dysregulation possibly secondary to vasculitis. Not improved despite extensive antibiotic regimen since previous admissions, unlikely infection related per ID. Per ID notes on previous admission, low suspicion for systemic infection given negative blood cultures. Plan: - IV methylprednisolone 60 mg daily - Metoprolol 50 mg BID, increase as tolerated - [place] - Tylenol PRN - Consulted neurologist Dr. Burns regarding possible autonomic dysregulation, appreciate recommendations #MDR pneumonia, likely ventilator associated #Chronic mucus plugging Per last admission, suspect possibly multidrug-resistant strains of Pseudomonas due to inadequate duration of antibiotic treatment upon comparison of CTA chest 3 months apart Multiple EENT cultures grew different organisms including Proteus mirabilis, Pseudomonas aeruginosa, ESBL Klebsiella pneumoniae with different resistances. However, repeat blood cultures 03/07 were negative. Previous Bcx on 02/21 and 02/25 have also been negative. Had antiobiotic treatment with IV CFX, cefepime, vancomycin, zosyn. Was discharged on 03/06 with ciprofloxacin and meropenum. Upon chart review, ID Dr. Vargas recommended discontinuing antibiotic treatment as very low suspicion for infection but antibiotic were continued per ICU recommendations. Plan: - Discontinue ciprofloxacin 400 mg BID and meropenum 1000 mg q8hr (02/26-03/09) - Duonebs prn - Guaifenesin 200 mg q4hr prn - Chest physiotherapy daily #Cocaine induced cerebral vasculitis #S/p tracheostomy #S/p PEG tube #Quadraparesis with spastic contractions #Seizures Chronic state. Of note, 02/27 EEG showed diffuse slowing suggestive of a diffuse encephalopathy of metabolic, degenerative, or vascular origin as well as paroxysmal bursts of spike and wave discharges suggesting seizure - Gabapentin 400 mg TID - IV Keppra 1000 mg BID - Baclofen 20 mg QID - Duonebs prn - Pain regimen: [place] 5 and 10 prn - Wound care following - Oral care daily #Chronic anemia, normocytic Baseline Hgb 7-9. Likely anemia of chronic disease 2/2 chronic vegetative state. 12/20/24 peripheral smear shows severe hypochromic microcytic anemia without hemolysis favoring iron deficiency state. Iron panel 02/14: iron low 50, TIBC low 243, iron sat wnl, unsat iron binding low 193. - CTM Hgb - Transfuse if Hgb <7 #Hypotension, refractory Likely secondary to autonomic dysregulation from vasculitis. - Midodrine 5 mg as needed Health Maintenance Disposition: tele DVT prophylaxis: SCDs GI prophylaxis: valium, prn metoclopramide, prn zofran Bowel prophylaxis: lactulose Diet: Jevity CODE STATUS: DNR Patient plan of care was discussed with the attending physician, Dr. De Luna. Iman Duncan, PGY-1 Attending Provider Attestation/Addendum I have examined the patient, reviewed labs and imaging findings, discussed the case with the resident(s), and reviewed entered orders. I agree with the plan of care as outlined in this note, with these additional summaries/recommendations: Patient seen at bedside. No acute overnight events. Goals of care was held with patient's parents Nasir and Sara who are patient's medical decision makers. Patient's medical conditions, treatment options, and prognosis was discussed at length. Patient has continued to have hemodynamic instability likely related to autonomic dysfunction. He has recurrent/intractable episodes of hypothermia, hyperthermia, and tachycardia. All treatments were discussed at length and family has decided to pursue hospice care. We discussed discontinuing antibiotics which they are in agreement with. Family agreed with proceeding with 2 days of IV steroids to see if patient responds. Okay to continue mechanical ventilation and tube feeds/free water flushes. Okay to continue antiepileptic regimen. Case management notified to work on hospice placement. Please see residents note for additional details and management. Dr. Calixto MD
--- NOTE | 2025-03-11 11:04 | PC.SS ---
Follow up note: Physician resident team will speak with Dr. Springer about pt return back to [facility] with [facility].
--- NOTE | 2025-03-11 11:23 | ESCONSULT_ITS ---
<Statement entered by Nick Vargas MD - 03/13/25 13:22> pt seen with resident. not moving. others prefer abx. we tend to prefer an alternate approach, steroids. primary team can decide HPI Data of Consult Requesting Physician: Malcom De Luna MD Admitting Provider: Cristal Demarco MD Attending Provider: Malcom De Luna MD Primary Care Provider: Paul Nichols MD Consult Narrative History of present illness: The patient is a 29-year-old male with significant past medical history of cocaine induced vasculitis, seizure disorder, anemia, chronic respiratory failure with tracheostomy tube, s/p PEG tube, quadriplegic presented to ED on 03/07/2025 with chief complaint of fever of 104 Fahrenheit from subacute. The patient was discharged 1 day prior to admission, after being treated for similar presentation, where the patient was initially treated for severe sepsis 2/2 healthcare associated pneumonia versus ventilator associated pneumonia, and was started on cefepime and vancomycin. The patient has previous recent admission for sepsis secondary to ulcers on popliteal fossa on 02/10/2025 and was treated with cefepime and vancomycin. Sputum culture on 02/22/2025 revealed Pseudomonas aeruginosa, Klebsiella pneumonia and Proteus mirabilis likely colonization. In the previous hospitalization, the infectious disease team had thought that his fever could be likely secondary to vasculitis, and had recommended steroid, and discontinued antibiotics. However, the patient was treated with antibiotics, and was not given any steroid. The patient was initially started on ciprofloxacin and meropenem, and was later on 03/09/2025, antibiotics were discontinued and was started on IV steroid. However, later steroid was held. During my evaluation, his BP was 127/74, RR 21, saturating 100% on 10 L O2 via blow-by on FiO2 35 %. Labs are significant for hemoglobin 8.4, white count 11.5, chemistry panel fairly stable, and chest x-ray was significant for bilateral pneumonia, prominent in the right upper lobe. PMH: As mentioned above Family history: Unobtainable Surgical history: Unobtainable Social history: Unobtainable Allergies: No known allergies Infectious disease consultation was done for further management of transient hypothermia and hypothermia. cc:: cc: Malcom De Luna MD Review of Systems Review of Systems ROS Unobtainable: unobtainable due to mental status Exam Vital Signs Temp Pulse Resp BP Pulse Ox O2 Del Method O2 Flow Rate 97.2 F 90 21 H 127/74 100 Mechanical Ventilation 94 03/11/25 04:00 03/11/25 08:33 03/11/25 07:31 03/11/25 08:33 03/11/25 07:31 03/11/25 04:00 03/11/25 04:00 FiO2 35 03/11/25 07:31 Narrative Exam General: No acute distress, spontaneous eye movement, nonresponsive HEENT: Moist mucous membranes, oropharynx clear Neck: Supple, No masses, No JVD CVS: S1S2 Regular rate and rhythm, No murmurs, rubs or gallops Lungs: Bilateral rhonchi throughout the lung field, no decreased breath sound appreciated Abd: Soft, NT/ND, +BS, no organomegaly Ext: No edema, warm and well perfused, upper and lower extremity contractures Skin: Pressure ulcers on buttock and heel Psych: Unobtainable Results Labs 03/11/25 04:55 03/11/25 04:55 Labs: Short CBC 03/11/25 Range/Units 04:55 WBC 11.5 H (3.8-10.6) Thou/mm3 Hgb 8.4 L (13.5-16.0) g/dL Hct 26.5 L (41.0-53.0) % Plt Count 312 (140-440) Thou/mm3 BMP 03/11/25 04:55 Sodium 139 Potassium 3.8 D Chloride 102 Carbon Dioxide 29.0 BUN 15 Creatinine 0.5 L Glucose 88 Calcium 9.6 Liver Function 03/11/25 Range/Units 04:55 Total Bilirubin < 0.2 L (0.3-1.2) mg/dL AST 20 (0-34) U/L ALT 12 (10-49) U/L Alkaline Phosphatase 133 H (46-116) U/L Albumin 3.6 (3.5-5.0) gm/dL Quality Measures Quality Measures sepsis Current suspected stage: ruled out Possible source: pulmonary Blood cultures ordered: yes Antibiotic ordered: No and comfort care/end of life Medications Home Medications and Allergies Home Medications ?Medication ?Instructions ?Recorded ?Confirmed ?Type diazepam 5 mg/mL oral concentrate 5 mg feeding tube Q6 H PRN seizures 03/09/25 03/09/25 History metoclopramide HCl 5 mg/mL 10 mg PO TID PRN Vomiting 0 03/09/25 03/09/25 History injection solution Held on 03/09/25. Instructions: Duplicate thiamine HCl (vitamin B1) 100 100 mg IV QDAY 03/09/25 03/09/25 History mg/mL injection solution Held on 03/09/25. Instructions: Duplicate Allergies Allergy/AdvReac Type Severity Reaction Status Date / Time No Known Allergies Allergy Unverified 10/23/24 09:16 Visit Medications Acetaminophen (Acetaminophen Supp 650 Mg Supp) 650 mg OR Q6H PRN PRN Reason: Fever >100.4 or Pain 1-3 Stop: 04/06/25 05:14 Last Admin: 03/10/25 08:01 Dose: 650 mg Hydrocodone Bitart/Acetaminophen (Hydrocodone/Apap 10/325 Tab) 1 tab GT Q4HR PRN PRN Reason: PAIN SCALE 7-10 (Severe Stop: 03/12/25 05:05 Last Admin: 03/10/25 07:07 Dose: 1 tab Albuterol/Ipratropium (Albuterol/Ipratropium (Duoneb) Rt [place] 3 Ml Nebu) 3 ml INH Q6HRRT PRN PRN Reason: Wheezing Stop: 04/06/25 05:14 Atorvastatin Calcium (Atorvastatin Calcium 20 Mg Tablet) 40 mg GT HS RADHA Stop: 04/06/25 20:59 Last Admin: 03/10/25 21:17 Dose: 40 mg Baclofen (Baclofen 10 Mg Tablet) 20 mg GT Q6HR RADHA Stop: 04/09/25 12:59 Last Admin: 03/11/25 05:42 Dose: 20 mg Bisacodyl (Bisacodyl 10 Mg Supp) 10 mg OR QDAY PRN; Protocol PRN Reason: CONSTIPATION Stop: 04/06/25 05:14 Cadexomer Iodine (Cadexomer Iodine Gel 40 Gm Tube) 0 gm TOP HS RADHA Stop: 03/14/25 20:59 Last Admin: 03/10/25 21:21 Dose: 1 applicatio Dextrose (Dextrose 50%-Water Inj 50 Ml Syringe) 25 ml IV Q15MIN PRN PRN Reason: BG 50-70 responsive npo pt Stop: 04/06/25 05:14 Dextrose (Dextrose 50%-Water Inj 50 Ml Syringe) 50 ml IV Q15MIN PRN PRN Reason: BG <50 OR BG <70 & pt unresponsive Stop: 04/06/25 05:14 Diazepam (Diazepam 5 Mg Tablet) 5 mg GT BID PRN PRN Reason: SEIZURES Stop: 03/12/25 08:59 Gabapentin (Gabapentin 100 Mg Capsule) 400 mg GT TID RADHA Stop: 04/06/25 05:59 Last Admin: 03/11/25 05:42 Dose: 400 mg Glucagon (Glucagon Inj 1 Mg Vial) 1 mg IM Q15MIN PRN PRN Reason: BG <70, and no IV access Guaifenesin (Guaifenesin Syrup 200 Mg/10 Ml Udc) 200 mg GT Q4H PRN; Protocol PRN Reason: congestion/cough Stop: 04/06/25 05:14 Insulin Human Lispro (Insulin Lispro (Admelog) 1 Unit/0.01 Ml Unit) 0 unit SC Q6HR RADHA; Protocol Stop: 04/06/25 17:59 Last Admin: 03/11/25 05:43 Dose: Not Given Lactulose (Lactulose Syrup 20 Gm/30 Ml Udc) 10 gm GT QDAY RADHA; Protocol Stop: 04/06/25 08:59 Last Admin: 03/11/25 08:32 Dose: 10 gm Levetiracetam (Levetiracetam Inj 100 Mg/Ml Vial 5ml) 1,000 mg IVP Q12HR RADHA Stop: 04/06/25 20:59 Last Admin: 03/11/25 08:34 Dose: 1,000 mg Methylprednisolone Sodium Succinate (Methylprednisolone Sod Succ 40 Mg/Ml Vial) 60 mg IVP QDAY RADHA On Hold: 03/10/25 09:57 Stop: 03/16/25 09:29 Last Admin: 03/10/25 09:01 Dose: 60 mg Metoclopramide HCl (Metoclopramide Inj 5 Mg/Ml Vial 2 Ml) 10 mg IVP Q8HR PRN; Protocol PRN Reason: Vomiting Stop: 04/06/25 08:36 Metoprolol Tartrate (Metoprolol Tartrate 25 Mg Tablet) 100 mg PO BID RADHA Stop: 04/09/25 08:59 Last Admin: 03/11/25 08:33 Dose: 100 mg Midodrine (Midodrine 5 Mg Tablet) 5 mg GT TID PRN PRN Reason: SBP>90 and DBP>50 Stop: 04/06/25 05:59 Ondansetron HCl (Ondansetron Inj 2 Mg/Ml Inj 2 Ml) 4 mg IVP Q6H PRN; Protocol PRN Reason: NAUSEA OR VOMITING Stop: 04/06/25 05:05 Last Admin: 03/10/25 01:56 Dose: 4 mg Oxycodone/Acetaminophen (Oxycodone/Apap 5/325 Tablet) 1 tab GT Q6H PRN PRN Reason: PAIN SCALE 4-6 (Moderate Stop: 03/12/25 05:05 Last Admin: 03/10/25 04:40 Dose: 1 tab Pantoprazole Sodium (Pantoprazole Inj 40 Mg Vial) 40 mg IVP QDAY RADHA Stop: 04/06/25 08:59 Last Admin: 03/11/25 08:34 Dose: 40 mg Sodium Chloride (Sodium Cl Rt [place] 3% 4 Ml Nebu (Non-Formulary)) 4 ml INH Q6HRRT RADHA Stop: 04/07/25 12:59 Last Admin: 03/11/25 07:28 Dose: 4 ml Discontinued Medications Atorvastatin Calcium (Atorvastatin Calcium 20 Mg Tablet) 40 mg PO HS RADHA Stop: 04/06/25 20:59 Baclofen (Baclofen 10 Mg Tablet) 20 mg PO Q6H RADHA Stop: 04/06/25 05:14 Last Admin: 03/07/25 06:52 Dose: 20 mg Baclofen (Baclofen 10 Mg Tablet) 20 mg GT Q6H RADHA Stop: 04/06/25 05:14 Last Admin: 03/10/25 06:37 Dose: 20 mg Diazepam (Diazepam 5 Mg Tablet) 5 mg GT BID RADHA Stop: 03/12/25 08:59 Last Admin: 03/09/25 20:03 Dose: 5 mg Guaifenesin (Guaifenesin Syrup 200 Mg/10 Ml Udc) 200 mg PO Q4H PRN; Protocol PRN Reason: congestion/cough Stop: 04/06/25 05:14 Meropenem 1,000 mg/ Sodium (Chloride) 50 mls @ 100 mls/hr IV Q8HR RADHA Stop: 03/14/25 14:29 Last Admin: 03/09/25 13:58 Dose: 100 mls/hr Ciprofloxacin/Dextrose (Cipro Ivpb) 400 mg in 200 mls @ 200 mls/hr IV Q12HR RADHA Stop: 03/14/25 20:59 Last Admin: 03/09/25 08:16 Dose: 200 mls/hr Ciprofloxacin/Dextrose (Cipro Ivpb) 400 mg in 200 mls @ 200 mls/hr IV X1 ONE Stop: 03/07/25 06:44 Last Infusion: 03/07/25 07:39 Dose: Infused Meropenem 1,000 mg/ Sodium (Chloride) 50 mls @ 100 mls/hr IV X1 ONE Stop: 03/07/25 06:14 Last Infusion: 03/07/25 07:11 Dose: Infused Magnesium Sulfate (Magnesium Sulfate Ivpb) 4 gm in 50 mls @ 12.5 mls/hr IV X1 ONE Stop: 03/08/25 11:27 Last Admin: 03/08/25 07:52 Dose: 12.5 mls/hr Magnesium Sulfate (Magnesium Sulfate Ivpb) 4 gm in 50 mls @ 12.5 mls/hr IV X1 ONE Stop: 03/10/25 11:31 Last Admin: 03/10/25 07:58 Dose: 12.5 mls/hr Magnesium Sulfate (Magnesium Sulfate Ivpb) 2 gm in 50 mls @ 25 mls/hr IV X1 ONE Stop: 03/10/25 13:34 Last Admin: 03/10/25 11:37 Dose: 25 mls/hr Insulin Human Lispro (Insulin Lispro (Admelog) 1 Unit/0.01 Ml Unit) 0 unit SC ACHS COUNT INCLUDES THE [facility]; Protocol Stop: 04/06/25 07:29 Last Admin: 03/07/25 17:15 Dose: Not Given Lactulose (Lactulose Syrup 20 Gm/30 Ml Udc) 10 gm PO QDAY COUNT INCLUDES THE [facility]; Protocol Stop: 04/06/25 08:59 Levetiracetam (Levetiracetam Inj 100 Mg/Ml Vial 5ml) 1,500 mg IVP Q12HR COUNT INCLUDES THE [facility] Stop: 04/06/25 08:59 Last Admin: 03/07/25 08:55 Dose: 1,500 mg Metoprolol Tartrate (Metoprolol Tartrate 25 Mg Tablet) 100 mg PO BID RADHA Stop: 04/07/25 08:59 Metoprolol Tartrate (Metoprolol Tartrate 25 Mg Tablet) 25 mg PO BID RADHA Stop: 04/07/25 08:59 Last Admin: 03/08/25 10:37 Dose: 25 mg Metoprolol Tartrate (Metoprolol Tartrate 25 Mg Tablet) 50 mg PO BID COUNT INCLUDES THE [facility] Stop: 04/07/25 20:59 Metoprolol Tartrate (Metoprolol Tartrate 25 Mg Tablet) 50 mg PO BID RADHA Stop: 04/07/25 19:24 Last Admin: 03/09/25 20:03 Dose: 50 mg Midodrine (Midodrine 5 Mg Tablet) 5 mg PO TID PRN PRN Reason: SBP>90 and DBP>50 Stop: 04/06/25 05:59 Potassium Chloride (Potassium Chloride 10% 20 Meq/15 Ml Udc) 40 meq GT X1 ONE Stop: 03/09/25 07:17 Last Admin: 03/09/25 08:16 Dose: 40 meq Potassium Chloride (Potassium Chloride 10% 20 Meq/15 Ml Udc) 20 meq GT X1 ONE Stop: 03/11/25 07:42 Last Admin: 03/11/25 08:33 Dose: 20 meq Potassium Phos/Sodium Phos (Naph,[facility]ly [facility] Mbdb 1 Packet (1.5 Gm)) 1 packet GT X1 ONE Stop: 03/10/25 07:46 Last Admin: 03/10/25 07:57 Dose: 1 packet Potassium Phos/Sodium Phos (Naph,Kp Mbdb 1 Packet (1.5 Gm)) 1 packet GT X1 ONE Stop: 03/10/25 12:01 Last Admin: 03/10/25 11:37 Dose: 1 packet Assessment & Plan Plan The patient is a 29-year-old male with significant past medical history of cocaine induced vasculitis, seizure disorder, anemia, chronic respiratory failure with tracheostomy tube, s/p PEG tube, quadriplegic presented to ED on 03/07/2025 with chief complaint of fever of 104 Fahrenheit from subacute. The patient was discharged 1 day prior to admission, after being treated for similar presentation, where the patient was initially treated for severe sepsis 2/2 healthcare associated pneumonia versus ventilator associated pneumonia, and was started on cefepime and vancomycin. The patient has previous recent admission for sepsis secondary to ulcers on popliteal fossa on 02/10/2025 and was treated with cefepime and vancomycin. Sputum culture on 02/22/2025 revealed Pseudomonas aeruginosa, Klebsiella pneumonia and Proteus mirabilis likely colonization. In the previous hospitalization, the infectious disease team had thought that his fever could be likely secondary to vasculitis, and had recommended steroid, and discontinued antibiotics. However, the patient was treated with antibiotics, and was not given any steroid. The patient was initially started on ciprofloxacin and meropenem, and was later on 03/09/2025, antibiotics were discontinued and was started on IV steroid. However, later steroid was held. Infectious disease consultation was done for further management of transient hypothermia and hypothermia. #Fever of unknown origin Likely secondary to vasculitis The patient was previously treated with IV antibiotics meropenem and ciprofloxacin, but continued to develop fever. On previous admission, infectious disease team had recommended discontinuing IV antibiotics and starting steroid therapy for possible vasculitis Chest x-ray significant for bilateral pneumonia, prominent in the right upper lobe, possibly could be secondary to vasculitis. Recent blood cultures are negative that was drawn on 03/07/2025. - Recommended IV steroid as on previous admission, fever may vary with vasculitis, and steroids are the mainstay of treatment - Antibiotics okay, as recent chest x-ray revealing right upper lobe pneumonia #Cocaine induced cerebral vasculitis #S/p tracheostomy #S/p PEG tube #Quadraparesis with spastic contractions #Seizures #Chronic anemia, normocytic #Goals of care discussion - Management deferred to primary hospitalist team Thank you for your opportunity to participate in this patient care. We will continue to follow-up in this patient care. The patient's management plan was discussed with my attending physician MD Florin Clayton MD, PGY3
--- NOTE | 2025-03-11 13:59 | ESPR_ITS ---
Documentation for date of: 03/11/25 Subjective Subjective Interval history: Patient was seen and examined at the bedside. No acute overnight events were reported. Patient was seen tolerating tube feeds well. Labs revealed slight drop in hemoglobin but still at baseline around 8. White count slightly improved. Chemistry panel showed electrolytes within normal limits. No new symptoms noted.Temperature dropped to 95 during midnight. No seizures noted. Continue with Keppra. Exam Vital Signs Temp Pulse Resp BP Pulse Ox O2 Del Method O2 Flow Rate 98.9 F 97 18 120/61 96 Mechanical Ventilation 94 03/11/25 12:00 03/11/25 12:00 03/11/25 12:00 03/11/25 12:00 03/11/25 12:00 03/11/25 12:00 03/11/25 12:00 FiO2 35 03/11/25 12:00 Narrative Exam General: Alert, no acute distress. Nonverbal. Throat: Tracheostomy midline, no bleeding noted. Clear sputum noted in trach tube. CVS: Regular rate and rhythm, no murmur, +S1/S2. Respiratory: Respirations unlabored, diffuse mechanical breath sounds with rhonchi. GI: Soft, nontender, non-distended. No guarding or rebound tenderness. PEG tube in place. Extremities: No edema, no cyanosis, no clubbing. Extremities postured in flexion. Bilateral popliteal fossa leg 4x4 cm dressings, yellow drainage noted from left wound. Neuro: Quadrapleigic, opens eyes spontaneously. Objective Labs 03/11/25 04:55 03/11/25 04:55 Labs: Laboratory Results - last 24 hr 03/11/25 04:55 WBC 11.5 H RBC 3.01 L Hgb 8.4 L Hct 26.5 L MCV 88 MCH 27.9 MCHC 31.7 RDW Std Deviation 73.9 H Plt Count 312 Neut % (Auto) 74 Lymph % (Auto) 16 [place] % (Auto) 8 Eos % (Auto) 1 Baso % (Auto) 0 Neut # (Auto) 8.5 H Lymph # (Auto) 1.9 [place] # (Auto) 0.9 H Eos # (Auto) 0.1 Baso # (Auto) 0.0 Immature Gran # (Auto) 0.07 H Absolute Nucleated RBC 0.00 Immature Gran % 1 H Nucleated RBC % 0 Sodium 139 Potassium 3.8 D Chloride 102 Carbon Dioxide 29.0 Anion Gap 8 BUN 15 Creatinine 0.5 L Estim Creat Clear Calc 197.6 eGFR > 60 BUN/Creatinine Ratio 30 H Glucose 88 Calculated Osmolality 277 Calcium 9.6 Corrected Calcium 9.9 Phosphorus 3.2 Magnesium 1.8 Total Bilirubin < 0.2 L AST 20 ALT 12 Alkaline Phosphatase 133 H Total Protein 7.5 Albumin 3.6 Globulin 3.9 H Albumin/Globulin Ratio 0.9 L Quality Measures Quality Measures sepsis Current suspected stage: sepsis Possible source: pulmonary Blood cultures ordered: yes Antibiotic ordered: Yes Assessment & Plan Assessment Current Active Medications: Generic Name Dose Route Start Last Admin Trade Name Freq PRN Reason Stop Dose Admin Acetaminophen 650 mg 03/07/25 05:14 03/10/25 08:01 Acetaminophen Supp 650 Mg Supp SC 04/06/25 05:14 650 mg Q6H PRN Administration Fever >100.4 or Pain 1-3 Hydrocodone Bitart/Acetaminophen 1 tab 03/07/25 05:06 03/10/25 07:07 Hydrocodone/Apap 10/325 Tab GT 03/12/25 05:05 1 tab Q4HR PRN Administration PAIN SCALE 7-10 (Severe Albuterol/Ipratropium 3 ml 03/07/25 05:15 Albuterol/Ipratropium (Duoneb) Rt [place] 3 Ml Nebu INH 04/06/25 05:14 Q6HRRT PRN Wheezing Atorvastatin Calcium 40 mg 03/07/25 21:00 03/10/25 21:17 Atorvastatin Calcium 20 Mg Tablet GT 04/06/25 20:59 40 mg HS RADHA Administration Baclofen 20 mg 03/10/25 13:00 03/11/25 11:54 Baclofen 10 Mg Tablet GT 04/09/25 12:59 20 mg Q6HR RADHA Administration Bisacodyl 10 mg 03/07/25 05:15 Bisacodyl 10 Mg Supp SC 04/06/25 05:14 QDAY PRN CONSTIPATION Protocol Cadexomer Iodine 0 gm 03/07/25 21:00 03/10/25 21:21 Cadexomer Iodine Gel 40 Gm Tube TOP 03/14/25 20:59 1 applicatio HS RADHA Administration Dextrose 25 ml 03/07/25 05:15 Dextrose 50%-Water Inj 50 Ml Syringe IV 04/06/25 05:14 Q15MIN PRN BG 50-70 responsive npo pt Dextrose 50 ml 03/07/25 05:15 Dextrose 50%-Water Inj 50 Ml Syringe IV 04/06/25 05:14 Q15MIN PRN BG <50 OR BG <70 & pt unresponsive Diazepam 5 mg 03/10/25 07:46 Diazepam 5 Mg Tablet GT 03/12/25 08:59 BID PRN SEIZURES Gabapentin 400 mg 03/07/25 06:00 03/11/25 13:41 Gabapentin 100 Mg Capsule GT 04/06/25 05:59 400 mg TID RADHA Administration Glucagon 1 mg 03/07/25 05:15 Glucagon Inj 1 Mg Vial IM Q15MIN PRN BG <70, and no IV access Guaifenesin 200 mg 03/07/25 08:40 Guaifenesin Syrup 200 Mg/10 Ml Udc GT 04/06/25 05:14 Q4H PRN congestion/cough Protocol Insulin Human Lispro 0 unit 03/07/25 18:00 03/11/25 12:03 Insulin Lispro (Admelog) 1 Unit/0.01 Ml Unit SC 04/06/25 17:59 Not Given Q6HR RADHA Protocol Lactulose 10 gm 03/07/25 09:00 03/11/25 08:32 Lactulose Syrup 20 Gm/30 Ml Udc GT 04/06/25 08:59 10 gm QDAY RADHA Administration Protocol Levetiracetam 1,000 mg 03/07/25 21:00 03/11/25 08:34 Levetiracetam Inj 100 Mg/Ml Vial 5ml IVP 04/06/25 20:59 1,000 mg Q12HR RADHA Administration Methylprednisolone Sodium Succinate 60 mg 03/09/25 09:30 03/10/25 09:01 Methylprednisolone Sod Succ 40 Mg/Ml Vial IVP 03/16/25 09:29 60 mg On Hold: 03/10/25 09:57 QDAY RADHA Administration Metoclopramide HCl 10 mg 03/07/25 08:37 Metoclopramide Inj 5 Mg/Ml Vial 2 Ml IVP 04/06/25 08:36 Q8HR PRN Vomiting Protocol Metoprolol Tartrate 100 mg 03/10/25 09:00 03/11/25 08:33 Metoprolol Tartrate 25 Mg Tablet PO 04/09/25 08:59 100 mg BID RADHA Administration Midodrine 5 mg 03/07/25 08:40 Midodrine 5 Mg Tablet GT 04/06/25 05:59 TID PRN SBP>90 and DBP>50 Ondansetron HCl 4 mg 03/07/25 05:06 03/10/25 01:56 Ondansetron Inj 2 Mg/Ml Inj 2 Ml IVP 04/06/25 05:05 4 mg Q6H PRN Administration NAUSEA OR VOMITING Protocol Oxycodone/Acetaminophen 1 tab 03/07/25 05:06 03/10/25 04:40 Oxycodone/Apap 5/325 Tablet GT 03/12/25 05:05 1 tab Q6H PRN Administration PAIN SCALE 4-6 (Moderate Pantoprazole Sodium 40 mg 03/07/25 09:00 03/11/25 08:34 Pantoprazole Inj 40 Mg Vial IVP 04/06/25 08:59 40 mg QDAY RADHA Administration Sodium Chloride 4 ml 03/08/25 13:00 03/11/25 07:28 Sodium Cl Rt [place] 3% 4 Ml Nebu (Non-Formulary) INH 04/07/25 12:59 4 ml Q6HRRT RADHA Administration Plan This is a 29-year-old male with a complex medical history including cocaine- induced cerebral vasculitis, seizures, chronic respiratory failure (status post tracheostomy and PEG tube), anemia, and quadriparesis, presented to ED with a rectal temperature of 93 found during rounds [facility]. #Hx seizure disorder No signs of seizure activities. No reported recent seizure activities Recently discharged Plan: ?No new symptoms noted ? 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 Autonomic dysfunction Hypothermia as low as 93.0 Unsure if there is chronic autonomic dysfunction from cerebral vasculitis At this time, alternating temperatures of hypothermia and hyperthermia (Fever) could also represent infection at this time Will not recommend initiating steroids at this time as this can pose more risk for infection if this is true autonomic dysfunction BB can be used for therapy, however this can lower HR and BP Other approach can be to monitor temperatures at this time Plan: ? DuoNebs PRN ? GUAIFENESIN 200 mg q.4h. PRN ? BACLOFEN 20 mg q.6h. ? DIAZEPAM 5 mg BID ? GABAPENTIN 400 mg TID ? LACTULOSE 10 mg q. day ? ONDANSETRON 4 mg q.6h. PRN ? PANTOPRAZOLE 40 mg q. day ? Pain control ? Continue PEG tube feeds ? Wound care ? Treat underlying infection ? Consider beta-blockers if there is high suspicion for autonomic dysfunction #Chronic normocytic anemia #Hyperlipidemia #Hypothermia #MDR pneumonia #Hypotension Rest of the problems managed as per primary team. Plan of care discussed with neurologist, Dr Grant Beasley MD, PGY 3 Attending Provider Attestation/Addendum I have seen and examined the patient at the bedside and I agreed with the resident's findings, assessment and plan of care. Patient is stable from neurology standpoint without having any breakthrough seizures on Keppra at 1000 mg twice a day. He is tolerating tube feeding well without any significant residuals. His temperature fluctuation is most likely related to autonomic dysfunction and only supportive care as needed.
--- NOTE | 2025-03-11 15:23 | PC.SS ---
SS was informed by Sindhu from [facility] she communicated with Tari the credit manager at [facility] and they are unable to accept today. [facility] will accept pt tomorrow morning.
--- NOTE | 2025-03-11 15:34 | PC.SS ---
Dtr is aware pt will d/c tomorrow to [facility].
--- NOTE | 2025-03-11 15:38 | PD.RESDS ---
Planned Discharge Date 03/11/25 DS: Providers Provider Date of admission: 03/10/25 14:23 Primary care physician: Paul Nichols MD Admitting Provider: Cristal Demarco MD Attending Provider on Admission: Malcom De Luna MD Consults: 03/07/25 07:25 Referral Registered Dietitian Urgent Comment: PEG tube feeds 03/07/25 14:27 Consult to Neurology / Tele-Neurology Routine Comment: Consulting Provider: Maurizio Burns 03/07/25 16:14 Referral Wound Care Routine Comment: Wounds 03/09/25 13:11 Referral Hospice Routine Comment: Attending Provider on DC: Iman Duncan DO Discharging Provider: Iman Duncan DO Hospital Course Hospital Course Hospital course: Patient was seen and examined at the bedside. No acute overnight events were reported. Patient was seen tolerating tube feeds well. Labs revealed slight drop in hemoglobin but still at baseline around 8. White count slightly improved. Chemistry panel showed electrolytes within normal limits. No new symptoms noted.Temperature dropped to 95 during midnight. Time Spent with Patient Time attestation: Total time spent providing and/or coordinating discharge services: Exam Vital Signs Temp Pulse Resp BP Pulse Ox O2 Del Method O2 Flow Rate 98.9 F 97 18 120/61 96 Mechanical Ventilation 94 03/11/25 12:00 03/11/25 12:00 03/11/25 12:00 03/11/25 12:00 03/11/25 12:00 03/11/25 12:00 03/11/25 12:00 FiO2 35 03/11/25 12:00 Discharge Plan Plan Patient Disposition: Xfer [facility] w/in Hosp Patient condition on transfer: Stable Care Plan Goals: -Follow-up with PCP within 1 week of discharge. If you do not have appointment, please follow-up with the [facility] with Dr. Merino. Call [phone] to make an appointment. -Stop meropenem and ciprofloxacin -Take rest of the home medications -Recommended to use Valencia hugger if Temp is >90 and <98.6 if the other vitals are stable. 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: cleanse well with wound cleanser spray, pat dry, fill wound bed with iodosorb gel and cover with allyven dressing daily Negative pressure to knees and heels at all times: place pillow under the thighs than under calf Side to side repositioning with wedges and pillows Prescriptions/Referrals Prescriptions/Med Rec: Continued Valium 5 mg G-tube PRN PRN (Reason: Seizures) 30 Days Qty: 30 0RF metoclopramide HCl 5 mg/5 mL solution 10 mg G-tube TID PRN (Reason: vomiting) 30 Days Qty: 473 0RF thiamine HCl (vitamin B1) [Vitamin B-1] 100 mg tablet 100 mg G-tube QDAY 29 Days Qty: 30 1RF ondansetron HCl 4 mg tablet 4 mg PO Q6HR PRN (Reason: Nausea Or Vomiting) 30 Days Qty: 30 0RF multivitamin Tablet 1 tab G-tube QDAY 30 Days Qty: 30 0RF atorvastatin 40 mg tablet 40 mg G-tube HS 30 Days Qty: 30 0RF acetaminophen 325 mg tablet 650 mg G-tube Q4HR PRN (Reason: Fever > 100.0) 30 Days Qty: 300 3RF Rx Instructions: not to exceed 3 gms of tylenol in 24 hours from all other sources albuterol sulfate 2.5 mg /3 mL (0.083 %) solution for nebulization 2.5 mg inhalation Q4H PRN (Reason: shortness of breath or wheezing) 30 Days Qty: 90 0RF polyethylene glycol 3350 17 gram powder in packet 17 g G-tube PRN PRN (Reason: No BM Per Bowel Management Protocol) 30 Days Qty: 30 0RF Rx Instructions: Mix with 4oz of water before giving. Hold tube feeding for 30 minutes after administration. Notify provider if no results from Miralax. morphine concentrate 100 mg/5 mL (20 mg/mL) solution 2 mg G-tube TID MDD 2 mg PRN (Reason: GIVE 30 MINS PRIOR TO WOUND TX) 365 Days Qty: 15 0RF gabapentin 400 mg capsule 400 mg G-tube TID 30 Days Qty: 30 0RF midodrine 5 mg tablet 5 mg G-tube TID PRN (Reason: Hold for SBP>90 and DBP>50) 30 Days Qty: 39 0RF Rx Instructions: do not give last dose of day after 6PM or within 4 hrs of bedtime guaifenesin [Noreen-Tussin] 100 mg/5 mL liquid 200 mg G-tube Q4H PRN (Reason: congestion/cough) 30 Days Qty: 1500 0RF magnesium hydroxide [Milk of Magnesia] 400 mg/5 mL suspension 30 ml G-tube PRN PRN (Reason: Constipation) 30 Days Qty: 3000 0RF Rx Instructions: CONC: 400MG/5ML bisacodyl [Dulcolax (bisacodyl)] 10 mg suppository 10 mg MI PRN PRN (Reason: No BM Per Bowel Management Protocol) 30 Days Qty: 12 0RF Rx Instructions: Administer as needed on 6th shift, if MOM ineffective. lansoprazole 30 mg capsule,delayed release(DR/EC) 30 mg G-tube QDAY 30 Days Qty: 30 0RF Fleet Enema 19-7 gram/118 mL enema 133 ml MI PRN PRN (Reason: No BM Per Bowel Management Protocol) 30 Days Qty: 133 0RF insulin lispro 100 unit/mL solution 2 unit SCi Q6HR PRN (Reason: hyperglycemia) Qty: 10 11RF levetiracetam 100 mg/mL solution 1,000 mg G-tube BID 30 Days Qty: 300 0RF metoprolol tartrate 25 mg tablet 100 mg G-tube BID 30 Days Qty: 120 0RF Rx Instructions: Hold for SBP<100 and or HR<60 (BBW) lactulose 10 gram/15 mL solution 10 g feeding tube QDAY 30 Days Qty: 450 0RF Rx Instructions: hold if with loose BM baclofen 10 mg tablet 20 mg G-tube Q6HR 30 Days Qty: 60 0RF diazepam 5 mg/mL concentrate 5 mg feeding tube Q6H PRN (Reason: seizures) ipratropium-albuterol 0.5 mg-3 mg(2.5 mg base)/3 mL Solution For Nebulization 3 ml INH Q2HR PRN (Reason: wheeze) 30 Days Qty: 180 0RF ondansetron HCl (PF) 4 mg/2 mL Solution 4 mg IVP Q6H PRN (Reason: Nausea Or Vomiting) 30 Days Qty: 50 0RF Discontinued ipratropium-albuterol 0.5 mg-3 mg(2.5 mg base)/3 mL solution for nebulization 3 ml INH Q2HR PRN (Reason: Wheezing) 30 Days Qty: 90 0RF ascorbic acid (vitamin C) 500 mg tablet 500 mg G-tube BID 30 Days Qty: 30 0RF Meropenem 1 g IV Q8HR 8 Days 0RF Rx Instructions: Meropenem 1 Gm IV every 8 hours for 8 days for PNA. Ciprofloxacin 400 Mg Iv 400 mg IV Q8HR 8 Days 0RF Label Comments: Black Box Warning Rx Instructions: Ciprofloxacin 400mg IV every 8 hours for 8 days for PNA. BBW (Infuse over 2 hours) metoclopramide HCl 5 mg/mL Solution 10 mg PO TID PRN (Reason: Vomiting) thiamine HCl (vitamin B1) 100 mg/mL Solution 100 mg IV QDAY levetiracetam 500 mg/5 mL Solution 1,000 mg IVP Q12HR 30 Days Qty: 125 0RF Referrals: Paul Nichols MD [Primary Care Provider, Pulmonology] Patient/Caregiver Discharge Instructions Education Materials: Chest Lung problems Surg Dx, Urinary Tract Infections in Men, Anatomy of the Brain, Dehydration, When to Use Antibiotics Print Language: Greek Stand Alone Forms: Claudia Award Info., Patient Portal Info Letter Discharge Order Discharge Orders: Discharge (Routine); Ordered 03/11/25 Ordered By: Margarito Merino
--- NOTE | 2025-03-11 16:16 | ESPR_ITS ---
<Statement entered by Margarito Merino MD - 03/12/25 07:36> Had a discussion with the Mom again and she revoked the hospice and recommended to continue treatment. Patient will be discharged back to Subacute I have personally seen and examined the patient, agree with residents assessment and plan Patient plan of care was discussed with the attending physician, Dr. Calixto Merino, PGY2 Documentation for date of: 03/11/25 Subjective Subjective Interval history: Overnight, patient's temperature remained relatively stable. Only had 1 episode of low temperature of 95 Fahrenheit at midnight. Continues to be on mechanical ventilation with spontaneous breathing. On exam, lungs sounded more coarse. Currently only on maintenance medications, no active treatments at this time. Confirmed with Dr. Nichols that subacute facility does not accept hospice patients. Social service unable to find SNF that is able to accommodate patient. Patient's family was notified of this, decided to withdraw comfort measures and hospice and return patient back to subacute facility. Anticipate discharge to subacute facility tomorrow, Dr. Nichols is aware of change in status and willing to accept patient on comfort care. Exam Vital Signs Temp Pulse Resp BP Pulse Ox O2 Del Method O2 Flow Rate 98.9 F 83 18 120/61 96 Mechanical Ventilation 94 03/11/25 12:00 03/11/25 15:58 03/11/25 12:00 03/11/25 12:00 03/11/25 12:00 03/11/25 12:00 03/11/25 12:00 FiO2 35 03/11/25 15:58 Narrative Exam Physical Exam General: Awake and in no acute distress. Conversational and non-toxic appearing. Nonverbal, opens eyes spontaneously, frail. HEENT: Normocephalic, atraumatic, mucous membranes moist. Tracheostomy midline, no bleeding noted around trach. Heart: Regular rate and rhythm, normal S1 and S2, no murmurs appreciated. Lungs: Clear to auscultation with no wheezing or crackles. Abdomen: Soft, nondistended, nontender, positive bowel sounds. No guarding or rebound tenderness. PEG tube in place in center of abdomen without eyrthema no purulent drainage, some crusting around tube. Neurologic: Quadraparesis, extremities contorted, and nonverbal at baseline with eyes opening spontaneously. Able to track with eyes. Extremities: Chronic wounds on bilateral knees. Objective Labs 03/11/25 04:55 03/11/25 04:55 Labs: Laboratory Results - last 24 hr 03/11/25 04:55 WBC 11.5 H RBC 3.01 L Hgb 8.4 L Hct 26.5 L MCV 88 MCH 27.9 MCHC 31.7 RDW Std Deviation 73.9 H Plt Count 312 Neut % (Auto) 74 Lymph % (Auto) 16 Bulloch % (Auto) 8 Eos % (Auto) 1 Baso % (Auto) 0 Neut # (Auto) 8.5 H Lymph # (Auto) 1.9 Bulloch # (Auto) 0.9 H Eos # (Auto) 0.1 Baso # (Auto) 0.0 Immature Gran # (Auto) 0.07 H Absolute Nucleated RBC 0.00 Immature Gran % 1 H Nucleated RBC % 0 Sodium 139 Potassium 3.8 D Chloride 102 Carbon Dioxide 29.0 Anion Gap 8 BUN 15 Creatinine 0.5 L Estim Creat Clear Calc 197.6 eGFR > 60 BUN/Creatinine Ratio 30 H Glucose 88 Calculated Osmolality 277 Calcium 9.6 Corrected Calcium 9.9 Phosphorus 3.2 Magnesium 1.8 Total Bilirubin < 0.2 L AST 20 ALT 12 Alkaline Phosphatase 133 H Total Protein 7.5 Albumin 3.6 Globulin 3.9 H Albumin/Globulin Ratio 0.9 L Quality Measures Quality Measures sepsis Current suspected stage: ruled out Possible source: pulmonary Blood cultures ordered: yes Antibiotic ordered: No Assessment & Plan Assessment Current Active Medications: Generic Name Dose Route Start Last Admin Trade Name Freq PRN Reason Stop Dose Admin Acetaminophen 650 mg 03/07/25 05:14 03/10/25 08:01 Acetaminophen Supp 650 Mg Supp DC 04/06/25 05:14 650 mg Q6H PRN Administration Fever >100.4 or Pain 1-3 Hydrocodone Bitart/Acetaminophen 1 tab 03/07/25 05:06 03/10/25 07:07 Hydrocodone/Apap 10/325 Tab GT 03/12/25 05:05 1 tab Q4HR PRN Administration PAIN SCALE 7-10 (Severe Albuterol/Ipratropium 3 ml 03/07/25 05:15 Albuterol/Ipratropium (Duoneb) Rt [place] 3 Ml Nebu INH 04/06/25 05:14 Q6HRRT PRN Wheezing Atorvastatin Calcium 40 mg 03/07/25 21:00 03/10/25 21:17 Atorvastatin Calcium 20 Mg Tablet GT 04/06/25 20:59 40 mg HS RADHA Administration Baclofen 20 mg 03/10/25 13:00 03/11/25 11:54 Baclofen 10 Mg Tablet GT 04/09/25 12:59 20 mg Q6HR RADHA Administration Bisacodyl 10 mg 03/07/25 05:15 Bisacodyl 10 Mg Supp DC 04/06/25 05:14 QDAY PRN CONSTIPATION Protocol Cadexomer Iodine 0 gm 03/07/25 21:00 03/10/25 21:21 Cadexomer Iodine Gel 40 Gm Tube TOP 03/14/25 20:59 1 applicatio HS RADHA Administration Dextrose 25 ml 03/07/25 05:15 Dextrose 50%-Water Inj 50 Ml Syringe IV 04/06/25 05:14 Q15MIN PRN BG 50-70 responsive npo pt Dextrose 50 ml 03/07/25 05:15 Dextrose 50%-Water Inj 50 Ml Syringe IV 04/06/25 05:14 Q15MIN PRN BG <50 OR BG <70 & pt unresponsive Diazepam 5 mg 03/10/25 07:46 Diazepam 5 Mg Tablet GT 03/12/25 08:59 BID PRN SEIZURES Gabapentin 400 mg 03/07/25 06:00 03/11/25 13:41 Gabapentin 100 Mg Capsule GT 04/06/25 05:59 400 mg TID RADHA Administration Glucagon 1 mg 03/07/25 05:15 Glucagon Inj 1 Mg Vial IM Q15MIN PRN BG <70, and no IV access Guaifenesin 200 mg 03/07/25 08:40 Guaifenesin Syrup 200 Mg/10 Ml Udc 04/06/25 05:14 Q4H PRN congestion/cough Protocol Insulin Human Lispro 0 unit 03/07/25 18:00 03/11/25 12:03 Insulin Lispro (Admelog) 1 Unit/0.01 Ml Unit SC 04/06/25 17:59 Not Given Q6HR RADHA Protocol Lactulose 10 gm 03/07/25 09:00 03/11/25 08:32 Lactulose Syrup 20 Gm/30 Ml Udc GT 04/06/25 08:59 10 gm QDAY RADHA Administration Protocol Levetiracetam 1,000 mg 03/07/25 21:00 03/11/25 08:34 Levetiracetam Inj 100 Mg/Ml Vial 5ml IVP 04/06/25 20:59 1,000 mg Q12HR RADHA Administration Methylprednisolone Sodium Succinate 60 mg 03/09/25 09:30 03/10/25 09:01 Methylprednisolone Sod Succ 40 Mg/Ml Vial IVP 03/16/25 09:29 60 mg On Hold: 03/10/25 09:57 QDAY RADHA Administration Metoclopramide HCl 10 mg 03/07/25 08:37 Metoclopramide Inj 5 Mg/Ml Vial 2 Ml IVP 04/06/25 08:36 Q8HR PRN Vomiting Protocol Metoprolol Tartrate 100 mg 03/10/25 09:00 03/11/25 08:33 Metoprolol Tartrate 25 Mg Tablet PO 04/09/25 08:59 100 mg BID RADHA Administration Midodrine 5 mg 03/07/25 08:40 Midodrine 5 Mg Tablet GT 04/06/25 05:59 TID PRN SBP>90 and DBP>50 Ondansetron HCl 4 mg 03/07/25 05:06 03/10/25 01:56 Ondansetron Inj 2 Mg/Ml Inj 2 Ml IVP 04/06/25 05:05 4 mg Q6H PRN Administration NAUSEA OR VOMITING Protocol Oxycodone/Acetaminophen 1 tab 03/07/25 05:06 03/10/25 04:40 Oxycodone/Apap 5/325 Tablet GT 03/12/25 05:05 1 tab Q6H PRN Administration PAIN SCALE 4-6 (Moderate Pantoprazole Sodium 40 mg 03/07/25 09:00 03/11/25 08:34 Pantoprazole Inj 40 Mg Vial IVP 04/06/25 08:59 40 mg QDAY RADHA Administration Sodium Chloride 4 ml 03/08/25 13:00 03/11/25 12:28 Sodium Cl Rt [place] 3% 4 Ml Nebu (Non-Formulary) INH 04/07/25 12:59 4 ml Q6HRRT RADHA Administration Plan Patient is a 29-year-old male with 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 #Goals of care 03/09: Had goals of care discussion with patient's mother Sara and father Nasir over telephone. Family was updated on patient's current condition and plan for treatment, discussed transition to comfort care if patient's condition abruptly worsens. Explained that this meant patient would be withdrawn from life sustaining therapies and only be treated symptomatically. Patient's mother and father relayed understanding and were agreeable to plan. 03/10: Personal services, does not accept patients with hospice. Recommended hospice team conferring with subacute. Unable to find another hospice facility that would be able to care for patient. 03/11: Spoke to Dr. Holloway who reports that [facility] does not accept hospice patients. Had another goals of care discussion with patient's family, who decided to withdraw comfort measures to return patient back to subacute. Plan: - Pending discharge back to subacute facility per Dr. Nichols tomorrow #Hypothermia #Fluctuating fever of unknown origin Presented with rectal temp of 93F, increased to 100.6F within a few hours. Concern for hypothalamic dysregulation possibly secondary to vasculitis. Not improved despite extensive antibiotic regimen since previous admissions, unlikely infection related per ID. Per ID notes on previous admission, low suspicion for systemic infection given negative blood cultures. Plan: - IV methylprednisolone 60 mg daily (03/09-03/10), discontinued as patient continues to have fluctuating temperatures without any improvement - Metoprolol 100 mg BID - Valencia hugger - Tylenol PRN - Consulted neurologist Dr. Burns regarding possible autonomic dysregulation, appreciate recommendations #MDR pneumonia, likely ventilator associated #Chronic mucus plugging Per last admission, suspect possibly multidrug-resistant strains of Pseudomonas due to inadequate duration of antibiotic treatment upon comparison of CTA chest 3 months apart Multiple EENT cultures grew different organisms including Proteus mirabilis, Pseudomonas aeruginosa, ESBL Klebsiella pneumoniae with different resistances. However, repeat blood cultures 03/07 were negative. Previous Bcx on 02/21 and 02/25 have also been negative. Had antiobiotic treatment with IV CFX, cefepime, vancomycin, zosyn. Was discharged on 03/06 with ciprofloxacin and meropenum. Upon chart review, ID Dr. Vargas recommended discontinuing antibiotic treatment as very low suspicion for infection but antibiotic were continued per ICU recommendations. Plan: - Discontinue ciprofloxacin 400 mg BID and meropenum 1000 mg q8hr (02/26-03/09) - Duonebs prn - Guaifenesin 200 mg q4hr prn - Chest physiotherapy daily #Cocaine induced cerebral vasculitis #S/p tracheostomy #S/p PEG tube #Quadraparesis with spastic contractions #Seizures Chronic state. Of note, 02/27 EEG showed diffuse slowing suggestive of a diffuse encephalopathy of metabolic, degenerative, or vascular origin as well as paroxysmal bursts of spike and wave discharges suggesting seizure - Gabapentin 400 mg TID - IV Keppra 1000 mg BID - Baclofen 20 mg QID - Duonebs prn - Pain regimen: [place] 5 and 10 prn - Wound care following - Oral care daily #Chronic anemia, normocytic Baseline Hgb 7-9. Likely anemia of chronic disease 2/2 chronic vegetative state. 12/20/24 peripheral smear shows severe hypochromic microcytic anemia without hemolysis favoring iron deficiency state. Iron panel 02/14: iron low 50, TIBC low 243, iron sat wnl, unsat iron binding low 193. - CTM Hgb - Transfuse if Hgb <7 #Hypotension, refractory Likely secondary to autonomic dysregulation from vasculitis. - Midodrine 5 mg as needed Health Maintenance Disposition: tele DVT prophylaxis: SCDs GI prophylaxis: valium, prn metoclopramide, prn zofran Bowel prophylaxis: lactulose Diet: Jevity CODE STATUS: DNR Patient plan of care was discussed with the resident, Dr. Merino, and attending physician, Dr. De Luna. Iman Duncan, PGY-1 Attending Provider Attestation/Addendum I have examined the patient, reviewed labs and imaging findings, discussed the case with the resident(s), and reviewed entered orders. I agree with the plan of care as outlined in this note. Dr. Calixto MD
[2025-03-11] MEDS: ATORVASTATIN CALCIUM 20 MG TABLET 40 MG GT (21:56)
[2025-03-11] MEDS: CADEXOMER IODINE GEL 40 GM TUBE TOP (21:57)
[2025-03-12] VITALS (13 sets, daily range): BP systolic 98–130; BP diastolic 65–103; PULSE 86–135; RESP 19–33; TEMP 36.6–38.6; O2SAT 97–100; BMI 18.3
[2025-03-12] MEDS: SODIUM CL RT SOL 3% 4 ML NEBU (NON-FORMULARY) INH ×2 (00:26→06:54)
[2025-03-12] MEDS: BACLOFEN 10 MG TABLET 20 MG GT ×3 (00:37→12:06)
[2025-03-12] MEDS: GABAPENTIN 100 MG CAPSULE 400 MG GT (05:01)
[2025-03-12] MEDS: METOPROLOL TARTRATE 25 MG TABLET 100 MG PO (05:10)
[2025-03-12] MEDS: ALBUTEROL/IPRATROPIUM (Duoneb) RT SOL 3 ML NEBU INH (05:20)
[2025-03-12] MEDS: ACETAMINOPHEN SUPP 650 MG SUPP PR ×2 (05:56→09:56)
[2025-03-12] MEDS: MORPHINE SULF INJ 4 MG/ML VIAL 2 MG IVP (06:34)
[2025-03-12] MEDS: levETIRAcetam INJ 100 MG/ML VIAL 5ML 1000 MG IVP (09:21)
[2025-03-12] MEDS: LACTULOSE SYRUP 20 GM/30 ML UDC 10 GM GT (09:22)
--- NOTE | 2025-03-12 12:24 | PC.SS ---
At 10:21 and 10:22am SS attempted to contact bedside nurse, Josh but was unsuccessful. SS spoke to Hector from [facility] who states they can accept pt and to provide report call Anne ext [phone]. SS met with Rn, Josh who is aware, [facility] is ready to accept pt, SNF packet has been prepared,and provided her with nurses' number to give report.
--- NOTE | 2025-03-12 13:17 | ESDS_ITS ---
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 Patient is noted to fluctuate in temperature, likely secondary to autonomic dysregulation from cerebral vasculitis. Discontinued antibiotics as suspicion for infection is very low at this point. Treated conservatively with Valencia hugger and Tylenol. Recommendations below. ED Course: Vitals: T93.9, BP 92/56, HR 74, RR 26, satting 100% on MV at 35% FiO2. Labs: relatively baseline with WBC 7.3, Hgb 8.1, PLT 301, creatinine 0.4. Normal renal function, LFTs, electrolytes, and lactic acid. Bedside COVID was negative. EKG showed sinus rhythm without acute ST changes, unchanged. Imaging: CXR improved since last admission, although possible right middle lobe pneumonia present. While in ED, he was immediately started on Valencia hugger, continued on mechanical ventilation. Discharge Recommendations: - Follow up with PCP within 1 week of discharge. If you do not have appointment, please follow up with [facility] with Dr. Merino. Call [phone] to make an appointment. - Stop meropenem and ciprofloxacin - Take rest of home medications - Recommend use of Valencia hugger if temp is >90 and <98.6 if the other vitals are stable. 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: cleanse well with wound cleanser spray, pat dry, fill wound bed with iodosorb gel and cover with allyven wedges and pillows negative pressure to knees and heels at all times: place pillow under the thighs than under calf Side to side repositioning with wedges and pillows Hospital Diagnoses: #Hypothermia #Fluctuating fever of unknown origin possible vasculitis this is appears to be a chronic issue #MDR pneumonia, likely ventilator associated #Chronic mucus plugging #Cocaine induced cerebral vasculitis #S/p tracheostomy #S/p PEG tube #Quadraparesis with spastic contractions #Seizures #Chronic anemia, normocytic #Hypotension, refractory Disposition: Safe discharge back to subacute facility. Patient plan of care was discussed with the attending physician, Dr. Zavala. Iman Duncan, PGY-1 Time Spent with Patient Time attestation: Total time spent providing and/or coordinating discharge services: Time spent: Greater than 30 minutes Exam Vital Signs Temp Pulse Resp BP Pulse Ox O2 Del Method FiO2 93.9 F L 72 21 H 97/63 100 Mechanical Ventilation 35 03/07/25 01:00 03/07/25 01:00 03/07/25 01:00 03/07/25 01:00 03/07/25 01:00 03/07/25 01:00 03/07/25 00:59 Narrative Exam Physical Exam General: Awake and in no acute distress. Conversational and non-toxic appearing. Nonverbal, opens eyes spontaneously, frail. HEENT: Normocephalic, atraumatic, mucous membranes moist. Tracheostomy midline, no bleeding noted around trach. Heart: Regular rate and rhythm, normal S1 and S2, no murmurs appreciated. Lungs: Clear to auscultation with no wheezing or crackles. Abdomen: Soft, nondistended, nontender, positive bowel sounds. No guarding or rebound tenderness. PEG tube in place in center of abdomen without eyrthema no purulent drainage, some crusting around tube. Neurologic: Quadraparesis, extremities contorted, and nonverbal at baseline with eyes opening spontaneously. Able to track with eyes. Extremities: Chronic wounds on bilateral knees. Discharge Plan Prescriptions/Referrals Referrals: No Primary/Family,Physician [Primary Care Provider] Patient/Caregiver Discharge Instructions Print Language: Danish Quality Discharge Quality Measures VTE prophylaxis MD Attestestation MD Attestation I have discussed and was present for the essential components of the discharge history, physical examination, diagnosis, and discharge treatment plan with the resident. I agree with the patient's discharge care as documented by the resident and amended herein by me. Jeramie Zavala DO. Patient stable for discharge, see resident note above for additional details. Although this document has been carefully reviewed, there may still be some phonetic and other typographical errors. These errors are purely grammatical due to imperfections in the software program and should not be construed in any way to compromise the substance of the patient's medical care during this visit. CC: NO PRIMARY/FAMILY,PHYSICIAN; SONJA
== END 2025-03-12 12:30 | disposition skilled nursing facility (03) | DRG 137 ==
LOC: SERX 03:46 → SERHOLD 06:02 → S2NX 12:51
PROVIDERS: Admitting Provider Student in an Organized Health Care Education/Training Program; Emergency Provider Emergency Medicine; PCP Specialist; Visit Provider Student in an Organized Health Care Education/Training Program
DX: J95.851 Ventilator associated pneumonia (principal); R68.0 Hypothermia, not associated with low environmental temperature; J15.0 Pneumonia due to Klebsiella pneumoniae; G40.909 Epilepsy, unspecified, not intractable, without status epilepticus; E78.5 Hyperlipidemia, unspecified; D50.9 Iron deficiency anemia, unspecified; G82.50 Quadriplegia, unspecified; J96.10 Chronic respiratory failure, unspecified whether with hypoxia or hypercapnia; Y84.8 Other medical procedures as the cause of abnormal reaction of the patient, or of later complication, without mention of misadventure at the time of the procedure; I95.89 Other hypotension; R40.3 Persistent vegetative state; Z16.24 Resistance to multiple antibiotics; Z51.5 Encounter for palliative care; Z66 Do not resuscitate; Z74.01 Bed confinement status; Z79.899 Other long term (current) drug therapy; Z93.1 Gastrostomy status; Z99.11 Dependence on respirator [ventilator] status; R65.21 Severe sepsis with septic shock
CPT/HCPCS: 36415; 71045; 80053; 83605; 83735; 84100; 84484; 85025; 85652; 86140; 87040; 87081; 87811; 93005; 94002; 94003; 94640; 94667; 96365; 96366; 96375; 99284; A4649; A9270; G0378; J0744; J1953; J2185; J2270; J2405; J2470; J2919; J3475; J7050